=== PATIENT | female | born 1955 | race Caucasian/White ===

== ENCOUNTER 2019-01-30 12:36 | Inpatient (IN) | payer MEDICARE, SELFPAY ==
[2019-01-30] VITALS (19 sets, daily range): BP systolic 99–150; BP diastolic 56–78; PULSE 89–146; RESP 16–35; TEMP 36.6–37.4; O2SAT 94–98; BMI 32.3; BMI 31.1
--- NOTE | 2019-01-30 12:58 | EKG12_ITS ---
Test Reason : SOB Blood Pressure : / mmHG Vent. Rate : 144 BPM Atrial Rate : 144 BPM P-R Int : 120 ms QRS Dur : 062 ms QT Int : 274 ms P-R-T Axes : 024 002 044 degrees QTc Int : 424 ms Sinus tachycardia with Premature atrial complexes Otherwise normal ECG Confirmed by YUMI NGUYEN, JERAMIE ([id number]), editorial assistant BENJIE MCARTHUR ([id number]) on 02/01/2019 8:45:56 AM Referred By: Kaylie Barry Confirmed By:JERAMIE EASON MD
--- NOTE | 2019-01-30 12:58 | RAD_ITS ---
STUDY: X-RAY CHEST REASON FOR EXAM: Female, 63 years old. Cough, fever. COPD. TECHNIQUE: AP and lateral views of the chest. COMPARISON: None. FINDINGS: EKG electrodes are seen. Increased interstitial markings in both lungs worse on the right side as well as at the lung bases with areas of confluence. Findings are suggestive of a chronic interstitial fibrosis. There is no demonstrated pleural abnormality. Normal size heart. Normal mediastinum and jessica. Normal visualized pulmonary arteries. Normal visualized aortic arch and descending thoracic aorta. There are degenerative changes of the visualized thoracic spine. Normal visualized ribs, clavicles, and shoulders. There is no demonstrated abnormality of the visualized soft tissue structures of the upper abdomen. RAD/Chest PA and Lateral IMPRESSION: Findings suggestive of chronic interstitial fibrosis more prominent in the right hemithorax. Electronically Signed: Porter Vallecillo, at 14:57 EDT , Service support ,
[2019-01-30 13:11] LABS: Hematocrit 35.2 % (37-47); Hemoglobin 10.6 g/dL (12.0-15.0); Mean Corp Hgb Conc 30.1 g/dL (32-36); Mean Corpuscular Hgb 30.1 pg (27.0-32.0); Mean Platelet Vol. 9.9 fl (6.2-12.0); Platelet Count 353 K/mm3 (150-450); RBC Distribution Width CV 13.1 % (11.6-14.6); RBC Distribution Width SD 47.7 fl (35.1-43.9); Red Blood Count 3.52 M/mm3 (4.2-5.4); White Blood Count 19.6 K/mm3 (4.4-11.0)
[2019-01-30] MEDS: Ipratropium/Albuterol Sulfate 3 ML AMPUL.NEB INHALATION ×3 (13:15→23:13)
--- NOTE | 2019-01-30 13:21 | ED.DCSUM_ITS ---
History of Present Illness Chief Complaint: Shortness of Breath Informant: Patient Onset: Days Context: Gradual Onset Timing: Continuous Quality: Shortness of breath, productive cough and wheezing Location: Pulmonary Current Severity: Moderate Maximum Severity: Severe Worsened by: Any type of activity Relieved by: Nothing Associated Symptoms: On continuous oxygen Narrative: Patient is a 63-year-old woman with history of COPD on oxygen at 2 L by nasal cannula 09/11. Patient reports subjective fever with chills, productive cough of yellow to green sputum, wheezing and increased shortness of breath with any type of activity. She quit smoking 8 years ago. She is seen by Dr. Devante Millan. She is presently on prednisone. She denies rhinorrhea, postnasal drainage or sore throat. She denies ocular, visual auditory symptoms. She denies myalgias arthralgias. She denies GI or symptoms. Prior similar symptoms: Yes - Pneumonia 1 year ago Recent Illness/Hospitalization: No - Past Medical History (1) History of COPD Status: Chronic (2) History of chronic respiratory failure w Status: Acute Past Medical History - Allergies and Home Meds Allergies/Adverse Reactions: Allergies No Known Allergies Allergy (Verified 01/30/19 12:47) Primary Care Physician: Alexa Becerra PA [Primary Care Provider] - Prior records reviewed: Yes Surgical History: noncontributory Lives: Alone Smoking Status: Former smoker Alcohol: None Drugs: None Review of Systems General: Reports: Chills, Fever, Malaise, Subjective. Denies: Sweats Eyes: Denies: Visual changes - bilaterally, Blurred Vision - bilaterally, Diplopia ENT: Denies: Rhinorrhea, Sore throat Cardiovascular: Denies: Chest pain, Palpitations Respiratory: Reports: Dyspnea, Cough, Sputum, Dyspnea on exertion. Denies: Orthopnea, Paroxysmal nocturnal dyspnea Gastrointestinal: Denies: Abdominal pain, Nausea, Vomiting, Diarrhea, Melena, Hematochezia Genitourinary: Denies: Dysuria, Hematuria, Frequency Musculoskeletal: Denies: Myalgias, Arthralgias, Neck pain, Back pain, Swelling, Extremity Pain, -, - Neurological: Denies: Headache, Weakness, Numbness Hematologic: Denies: Easy bruising, Easy bleeding Allergy: Denies: Uticaria, Swelling of the mouth Physical Exam Vital Signs/Narrative: Vital Signs Temp Pulse Resp BP Pulse Ox 01/30/19 13:16 140 H 32 H 01/30/19 12:59 96 01/30/19 12:40 99.0 F 146 H 35 H 144/71 H 95 Inital Vital Signs reviewed: Yes General: Well nourished, Well developed, Obese, Acute Distress Head: Normocephalic, Atraumatic Eyes: Perrl, EOMI. Negative for: Pale conjunctiva, Scleral icterus ENT: Moist mucous membranes, No rhinorrhea, TM's clear Neck: Supple, Nontender, No lymphadenopathy, No JVD Cardiovascular: Regular rhythm, No murmurs, Normal S1, Normal S2, Tachycardia Respiratory: Chest nontender, Wheezing, Diminished, Decreased Air Movement, Retractions Abdomen: Soft, Nontender, Nondistended, Normal bowel sounds Rectal: Deferred Back: Nontender, Normal Inspection Extremities: Nontender, No edema Skin: No rash, No Trauma, Pallor. Negative for: Cyanosis, Diaphoresis, Jaundice Neurological: Alert, Oriented x3, Cranial nerves II-XII grossly intact, Normal Strength, Normal Sensation Psychological: Normal affect Diagnostic/Tx/Re-eval Chest X-Ray - ED: 2 View, Read by ED Physician, Normal, Heart, Bony Structures, - - There is bilateral interstitial changes. There is a difference on the right versus left. Suspect interstitial pneumonia. 01/30/19 12:58 Chest PA and Lateral [RAD] Stat Laboratory Results 01/30/19 01/30/19 01/30/19 12:50 12:50 12:50 WBC 19.6 H RBC 3.52 L Hgb 10.6 L Hct 35.2 L MCV 100.0 H MCH 30.1 MCHC 30.1 L RDW Std Deviation 47.7 H RDW Coeff of Lainey 13.1 Plt Count 353 MPV 9.9 Specimen Type Sample Site pH Bicarbonate Actual POC Total CO2 Base Excess O2 Saturation ABG pCO2 ABG pO2 Adán Test O2 Delivery Device Liter Flow Blood Gas Notified Whom Blood Gas Notified Time Sodium 136 Potassium 3.7 Chloride 102 Carbon Dioxide 30.0 Anion Gap 4 L BUN 11 Creatinine 0.89 Estim Creat Clear Calc 57.32 Est GFR (MDRD) Af Amer 82 Est GFR (MDRD) Non-Af 68 BUN/Creatinine Ratio 12.3 Glucose 109 H Lactic Acid 1.7 Calcium 8.7 Total Bilirubin 0.60 AST 15 ALT 15 Alkaline Phosphatase 104 Total Protein 7.9 Albumin 2.7 L Globulin 5.2 H Albumin/Globulin Ratio 0.5 L 01/30/19 13:40 WBC RBC Hgb Hct MCV MCH MCHC RDW Std Deviation RDW Coeff of Lainey Plt Count MPV Specimen Type ART Sample Site R Brachial pH 7.48 H Bicarbonate Actual 23.7 POC Total CO2 25 Base Excess 0 O2 Saturation 95 ABG pCO2 31.8 L ABG pO2 70 L Adán Test NA O2 Delivery Device Nasal Can Liter Flow 2.0 Blood Gas Notified Whom ED MD Blood Gas Notified Time 1330 Sodium Potassium Chloride Carbon Dioxide Anion Gap BUN Creatinine Estim Creat Clear Calc Est GFR (MDRD) Af Amer Est GFR (MDRD) Non-Af BUN/Creatinine Ratio Glucose Lactic Acid Calcium Total Bilirubin AST ALT Alkaline Phosphatase Total Protein Albumin Globulin Albumin/Globulin Ratio White count is elevated 19.6 thousand. Electrolyte panel is unremarkable. Hepatic enzymes are unremarkable. Lactate is normal. Albumin is slightly low. ABG reveals alkalosis with an increased AA gradient. There is no evidence of CO2 retention. The report was read. Interpretation is pulmonary fibrosis. With elevated white count, tachycardia, tachypnea fever and purulent sputum will treat for pneumonia. Will contact hospitalist for admission. - Medical Decision Making Differential diagnosis is COPD exacerbation exacerbate chronic bronchitis, pneumonia, ED Disposition - Plan for ED Patient: Disposition: Acute Care [facility], [place] Diagnosis: Asthma exacerbation in COPD, Clinical pneumonia, Leukocytosis, Sinus tachycardia by electrocardiogram Referrals: Alexa Becerra PA [Primary Care Provider] -
[2019-01-30 13:25] LABS: Lactic Acid 1.7 mmol/L (0.4-2.0)
[2019-01-30 13:29] LABS: ALB/GLOB Ratio 0.5 RATIO (0.9-2.4); AST(SGOT) 15 U/L (15-37); Alanine Aminotransfer ALT/SGPT 15 U/L (13-56); Albumin, Serum 2.7 g/dL (3.2-5.0); Alkaline Phosphatase 104 U/L (45-117); Anion Gap 4 (5-15); BUN 11 mg/dL (7-18); BUN/Creat Ratio 12.3 RATIO (10-20); Calcium,Total 8.7 mg/dL (8.5-10.1); Chloride 102 mmol/L (98-107); Creatinine, Serum 0.89 mg/dL (0.55-1.02); EST Glomerular Filtration Rate 68 mL/min (>60); Est Glom Filt Rate - Afr Amer 82 mL/min (>60); Estimated Creatinine Clearance 57.32 ml/min; Globulin 5.2 g/dL (2.2-4.2); Glucose 109 mg/dL (74-106); Potassium 3.7 mmol/L (3.5-5.1); Protein, Total 7.9 g/dL (6.4-8.2); Sodium Level 136 mmol/L (136-145)
[2019-01-30 13:46] LABS: Base Excess 0 mmol/L (-2 to +2); Bicarbonate 23.7 mmol/L (22-26); Blood Gas Specimen Type ART; O2 Delivery Device Nasal Can; PO2 70 mmHG (75-100); SITE R Brachial; SO2 95 % (95-99); Time Given 1330; Total Carbon Dioxide 25 mmol/L; pCO2 31.8 mmHg (35-45); pH 7.48 (7.35-7.45)
[2019-01-30] MEDS: MethylPREDNISolone 125 MG/2 ML Vial IV (13:58)
[2019-01-30] MEDS: levoFLOXacin IV 750 MG/150 ML BAG 100 MG IV (13:58)
--- NOTE | 2019-01-30 15:37 | HP.PCM_ITS ---
<Sanjuanita Valverde - Last Filed: 01/30/19 16:25> Problem List (1) History of COPD Status: Chronic (2) History of chronic respiratory failure w Status: Chronic (3) Asthma exacerbation in COPD Status: Acute (4) Leukocytosis Status: Acute (5) Sinus tachycardia by electrocardiogram Status: Acute History of Present Illness Date of Admission: 01/30/19 Chief Complaint: Shortness of breath, cough. The patient is a 63 year old F who presents to the emergency room due to shortn ess of breath x2 days. She also reports productive cough with yellow/green sputum, fever and wheezing. Patient reports incontinence of loose stool with coughing. She states approximately 2 years ago she was diagnosed with pneumonia and had to be transferred to a larger facility for treatment. She states she was told by her brand specialist if she developed similar symptoms that she should be seen at the hospital right away. Patient follows with Dr. Freeman, [facility] pulmonary medicine for COPD with chronic hypoxic respiratory failure. She wears 2 to 3 L nasal cannula continuously at baseline. She reports she quit smoking approximately 8 years ago. 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 She denies other exposure to sick contacts. Her other past medical history includes atrial fibrillation, rheumatoid arthritis and type 2 diabetes mellitus. Past Medical History Past Medical History (Chronic Problems): Chronic Problems History of COPD (Chronic) History of chronic respiratory failure w (Chronic) Allergies No Known Allergies Allergy (Verified 01/30/19 12:47) Home Medications: Ambulatory Orders Medication Instructions Recorded Acetaminophen [Tylenol Extra 1,000 mg PO DAILY PRN PRN 01/30/19 Strength] Leflunomide 10 mg DAILY 01/30/19 Metoprolol Succinate 50 mg PO DAILY 01/30/19 Prednisone 10 mg PO DAILY PRN PRN 01/30/19 Rivaroxaban [Xarelto] 20 mg PO DAILY 01/30/19 metFORMIN (XR) [Glucophage Xr] 500 mg PO DAILY 01/30/19 Surgical History: no surgical history Psychiatric History: No pertinent psych hx [employer] 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 Denies: Head Aches, Sinus Con gestion, Sinus Drainage Cardiovascular: Denies: Chest Pain, Edema, Light Headedness, Palpitations, Syncope Respiratory: Reports: Cough, Shortness of Breath, Sputum production, Wheezing Gastrointestinal: Reports: Diarrhea. Denies: Abdominal Pain, Nausea, Vomiting Genitourinary: Denies: Dysuria Musculoskeletal: Denies: Joint Pain, Joint Tenderness Skin: Denies: Rash, Wounds Neurological: Denies: Numbness, Tingling, Focal weakness Psychiatric: Denies: Anxiety, Depression, Homicidal Ideations, Suicidal Ideations Hematologic/ Lymphatic: Denies: Easy Bruising, Easy Bleeding VTE Information - Inpt Only VTE Present on Admission: No VTE Mechan Device Prophylaxis: None VTE Pharm Prophylaxis ordered?: Yes Patient Problems: Active and Suspected Problems Asthma exacerbation in COPD (Acute) Leukocytosis (Acute) Sinus tachycardia by electrocardiogram (Acute) - Physical Exam General: Alert, Oriented x3, Cooperative HEENT: Atraumatic, PERRLA, EOMI, Normocephalic Neck: Supple, No JVD, Negative Carotid Bruits Lungs: Diminished, Wheezes Cardiovascular: Regular Rhythm, Normal S1, Normal S2, No murmurs, Tachycardic Abdomen: Bowel Sounds Present, Soft, Non Tender, Non-Distended Extremities: No clubbing, No cyanosis, No edema, Capillary Refill Less than 3 Seconds Skin: No rashes, No breakdown Musculoskeletal: No Tenderness to Palpation of Joints or Extremities Neurological: Cranial nerves II-XII grossly intact, Neuro grossly intact Psych/Mental Status: Normal Affect, Appropriate Vital Signs Temp Pulse Resp BP Pulse Ox 99.4 F H 141 H 25 H 120/66 98 01/30/19 15:00 01/30/19 15:00 01/30/19 15:00 01/30/19 15:00 01/30/19 15:00 Oxygen Flow Rate (L/min) 2 Oxygen Delivery Method Nasal Cannula Weight: 188 lb 0.869 oz Body Mass Index (BMI) 32.3 Laboratory Tests Past 24 Hrs 01/30/19 01/30/19 01/30/19 12:50 12:50 12:50 WBC 19.6 H RBC 3.52 L Hgb 10.6 L Hct 35.2 L MCV 100.0 H MCH 30.1 MCHC 30.1 L RDW Std Deviation 47.7 H RDW Coeff of Lainey 13.1 Plt Count 353 MPV 9.9 Specimen Type Sample Site pH Bicarbonate Actual POC Total CO2 Base Excess O2 Saturation ABG pCO2 ABG pO2 Adán Test O2 Delivery Device Liter Flow Blood Gas Notified Whom Blood Gas Notified Time Sodium 136 Potassium 3.7 Chloride 102 Carbon Dioxide 30.0 Anion Gap 4 L BUN 11 Creatinine 0.89 Estim Creat Clear Calc 57.32 Est GFR (MDRD) Af Amer 82 Est GFR (MDRD) Non-Af 68 BUN/Creatinine Ratio 12.3 Glucose 109 H Lactic Acid 1.7 Calcium 8.7 Total Bilirubin 0.60 AST 15 ALT 15 Alkaline Phosphatase 104 Total Protein 7.9 Albumin 2.7 L Globulin 5.2 H Albumin/Globulin Ratio 0.5 L 01/30/19 13:40 WBC RBC Hgb Hct MCV MCH MCHC RDW Std Deviation RDW Coeff of Lainey Plt Count MPV Specimen Type ART Sample Site R Brachial pH 7.48 H Bicarbonate Actual 23.7 POC Total CO2 25 Base Excess 0 O2 Saturation 95 ABG pCO2 31.8 L ABG pO2 70 L Adán Test NA O2 Delivery Device Nasal Can Liter Flow 2.0 Blood Gas Notified Whom ED MD Blood Gas Notified Time 1330 Sodium Potassium Chloride Carbon Dioxide Anion Gap BUN Creatinine Estim Creat Clear Calc Est GFR (MDRD) Af Amer Est GFR (MDRD) Non-Af BUN/Creatinine Ratio Glucose Lactic Acid Calcium Total Bilirubin AST ALT Alkaline Phosphatase Total Protein Albumin Globulin Albumin/Globulin Ratio Assessment/Plan All Active Problems Asthma exacerbation in COPD (Acute) Leukocytosis (Acute) Sinus tachycardia by electrocardiogram (Acute) 1. Acute sepsis secondary to community-acquired pneumonia-possible post viral pneumonia given initial onset of sore throat and URI symptoms as well as exposure to sick contact-patient with fever, leukocytosis, productive cough. Chest x-ray without acute process. Repeat in a.m. following hydration. IV Levaquin. Albuterol and DuoNeb aerosols. Check urine for strep and Legionella. Check respiratory panel. Send sputum for culture. Mucinex 1200 mg p.o. twice daily. Continue supplement oxygen to maintain O2 at or above 90%. 2. Acute exacerbation of chronic COPD with chronic hypoxic respiratory failure- IV Solu-Medrol. Albuterol and DuoNeb aerosols. Check respiratory panel. 3. Type 2 diabetes mellitus-hold oral regimen. Accu-Cheks ACHS with sliding scale insulin. 4. Paroxysmal atrial fibrillation-sinus tachycardia on admission. Continue home metoprolol and Xarelto regimen. 5. Rheumatoid arthritis-continue home leflunomide regimen. Patient takes prednisone as needed. 6. Macrocytic anemia-appears stable, unknown baseline. Trend CBC. DVT prophylaxis-Xarelto This patient was seen by SAMANTHA Muñiz under the supervision of Dr. Barry. <Kaylie Barry - Last Filed: 01/30/19 18:53> History of Present Illness The patient is a 63 year old F [] Past Medical History Allergies No Known Allergies Allergy (Verified 01/30/19 12:47) - Physical Exam Vital Signs Temp Pulse Resp BP Pulse Ox 98.2 F 119 H 22 H 99/73 95 01/30/19 17:25 01/30/19 18:13 01/30/19 17:25 01/30/19 18:13 01/30/19 17:25 Oxygen Flow Rate (L/min) 2 Oxygen Delivery Method Nasal Cannula Weight: 82.4 kg Body Mass Index (BMI) 31.1 Intake and Output for Last 24 Hours 01/28/19 01/29/19 01/30/19 23:59 23:59 23:59 Intake Total 150 / 150 Balance 150 / 150 Laboratory Tests Past 24 Hrs 01/30/19 01/30/19 01/30/19 12:50 12:50 12:50 WBC 19.6 H RBC 3.52 L Hgb 10.6 L Hct 35.2 L MCV 100.0 H MCH 30.1 MCHC 30.1 L RDW Std Deviation 47.7 H RDW Coeff of Lainey 13.1 Plt Count 353 MPV 9.9 Specimen Type Sample Site pH Bicarbonate Actual POC Total CO2 Base Excess O2 Saturation ABG pCO2 ABG pO2 Adán Test O2 Delivery Device Liter Flow Blood Gas Notified Whom Blood Gas Notified Time Sodium 136 Potassium 3.7 Chloride 102 Carbon Dioxide 30.0 Anion Gap 4 L BUN 11 Creatinine 0.89 Estim Creat Clear Calc 57.32 Est GFR (MDRD) Af Amer 82 Est GFR (MDRD) Non-Af 68 BUN/Creatinine Ratio 12.3 Glucose 109 H Lactic Acid 1.7 Calcium 8.7 Total Bilirubin 0.60 AST 15 ALT 15 Alkaline Phosphatase 104 Total Protein 7.9 Albumin 2.7 L Globulin 5.2 H Albumin/Globulin Ratio 0.5 L 01/30/19 13:40 WBC RBC Hgb Hct MCV MCH MCHC RDW Std Deviation RDW Coeff of Lainey Plt Count MPV Specimen Type ART Sample Site R Brachial pH 7.48 H Bicarbonate Actual 23.7 POC Total CO2 25 Base Excess 0 O2 Saturation 95 ABG pCO2 31.8 L ABG pO2 70 L Adán Test NA O2 Delivery Device Nasal Can Liter Flow 2.0 Blood Gas Notified Whom ED MD Blood Gas Notified Time 1330 Sodium Potassium Chloride Carbon Dioxide Anion Gap BUN Creatinine Estim Creat Clear Calc Est GFR (MDRD) Af Amer Est GFR (MDRD) Non-Af BUN/Creatinine Ratio Glucose Lactic Acid Calcium Total Bilirubin AST ALT Alkaline Phosphatase Total Protein Albumin Globulin Albumin/Globulin Ratio POC Glucose 01/30/19 17:01 POC Glucose 141 H Assessment/Plan This patient was seen in conjunction with Sanjuanita Valverde. I have independently interviewed and examined the patient and reviewed pertinent historical, laboratory, and other data. I have reviewed her note and concur with her documentation CC: Shortness of breath ongoing for 3 day HPI: 63-year-old female with past medical history of chronic respiratory failure secondary to COPD, on 2 L of oxygen at home who comes in with progressive shortness of breath ongoing for 3 days. Patient admits to a productive cough productive of yellowish to greenish sputum with fever and wheezes. She admits to having had sick contact with her and the son who had upper respiratory illnesses. She admits to some nausea and diarrhea about 3 times, which were no liquid-like. She denied any chest pain or dizziness or palpitations. At a time of being seen, patient felt much better with the breathing treatments instead of IV antibiotics. PMHX: COPD, chronic respiratory failure PSHx: No surgical history FHX: Mother has COPD, father had heart disease SHX: Denies any use of alcohol or illicit drugs or smoking Physical Exam: Vitals: Temperature 99.0 F, heart rate is 146, blood pressure is 144/71, r espiratory 35, SPO2 is 95% on 2 L of oxygen Gen: Looks in some discomfort, obese, not pale, not jaundiced CVS:HS I +II, regular, no murmurs RESP: Diminished all over the lungs, wheezes GI: BS present and normal, soft, nontender, no palpable organs EXT:No edema Labs:WBC count of 19.6, hemoglobin 10.6, platelet count of 353, BMP was unremarkable, ABG showed pH 7.48, PO2 was 95, PCO2 was 31.8 Imaging: Chest x-ray showed chronic interstitial fibrosis ASSESSMENT: 1. Sepsis secondary to possible community-acquired pneumonia 2. Acute COPD exacerbation 3. Sinus tachycardia secondary to beta-ruby withdrawal 4. Rheumatoid arthritis 5. Type II DM 6. Paroxysmal atrial fibrillation Plan: Repeat chest x-ray in a.m. to confirm pneumonia Continue on IV Levaquin for now IV steroids, breathing treatments, incentive spirometer Resume home metoprolol tonight Continue on the rest of her medications Blood glucose checks with insulin sliding scale Code Visit Inpatient E&M: 92190 Init Hosp L2
--- NOTE | 2019-01-30 15:42 | NURSING ---
PCU PNEUMONIA, SEPSIS PAINTSIL
[2019-01-30] MEDS: 0.9% Normal Saline 1,000 ML 125 ML IV (17:10)
[2019-01-30 17:11] LABS: Bedside Glucose 141 mg/dL (70-110)
[2019-01-30] MEDS: Glucerna Shake 120 ML LIQUID PO (18:11)
[2019-01-30] MEDS: Rivaroxaban 20 MG Tablet PO (18:11)
[2019-01-30] MEDS: Acetaminophen 325 MG Tablet 650 MG PO (18:11)
[2019-01-30] MEDS: Metoprolol(XL)Succ 50 MG Tablet PO (18:13)
[2019-01-30] MEDS: guaiFENesin 1,200 MG Tablet 1200 MG PO (21:03)
[2019-01-30] MEDS: Leflunomide 10 MG TABLET PO (21:03)
[2019-01-30] MEDS: Insulin Lispro 100 UNIT/ML INSULN.PEN SC (21:09)
[2019-01-30 21:31] LABS: Bedside Glucose 175 mg/dL (70-110)
[2019-01-31] VITALS (15 sets, daily range): BP systolic 112–129; BP diastolic 55–69; PULSE 86–105; RESP 14–26; TEMP 36.4–36.6; O2SAT 94–96
[2019-01-31] MEDS: 0.9% Normal Saline 1,000 ML 125 ML IV ×2 (00:25→10:03)
[2019-01-31] MEDS: Ipratropium/Albuterol Sulfate 3 ML AMPUL.NEB INHALATION ×6 (03:06→22:43)
--- NOTE | 2019-01-31 05:55 | RAD_ITS ---
STUDY: X-RAY CHEST REASON FOR EXAM: Female, 63 years old. Cough and weakness. TECHNIQUE: AP and lateral views of the chest. COMPARISON: Comparison is made with prior study dated January 30, 2019. FINDINGS: EKG electrodes are seen. Since prior study, there has been minimal improvement of the aeration of the right upper lobe. Residual increased interstitial markings with areas of confluence are seen in both lungs worse on the right side suggestive of a chronic interstitial fibrosis. There is no demonstrated pleural abnormality. Normal size heart. Normal mediastinum and jessica. Normal visualized pulmonary arteries. Normal visualized aortic arch and descending thoracic aorta. Normal visualized thoracic spine. Normal visualized ribs, clavicles, and shoulders. There is no demonstrated abnormality of the visualized soft tissue structures of the upper abdomen. RAD/Chest PA and Lateral IMPRESSION: Mild improvement of the aeration of the right upper lobe. The remainder the examination is unchanged. Electronically Signed: Potrer Vallecillo, at 14:21 EDT , Service support ,
[2019-01-31] MEDS: Insulin Lispro 100 UNIT/ML INSULN.PEN SC ×2 (06:25→11:35)
[2019-01-31 06:41] LABS: Bedside Glucose 152 mg/dL (70-110)
[2019-01-31 06:45] LABS: Absolute Lymphocyte Count 0.79 X10^3/uL (0.83-4.51); Absolute Neutrophil Count 8.9 X10^3/uL (2.0-7.7); Basophil# 0.01 X10^3/uL; Basophil% 0.1 % (0-1); Hematocrit 29.9 % (37-47); Hemoglobin 9.1 g/dL (12.0-15.0); Lymphocyte # 0.79 X10^3/ul (4.0); Mean Corp Hgb Conc 30.4 g/dL (32-36); Mean Corpuscular Hgb 29.7 pg (27.0-32.0); Mean Corpuscular Volume 97.7 fL (81-99); Mean Platelet Vol. 10.2 fl (6.2-12.0); Monocyte# 0.15 X10^3/uL; Monocyte% 1.5 % (0-10); NRBC Flagged by Analyzer 0 % (0-5); Neutrophil # 8.92 X10^3/uL (2.7-7.7); Neutrophil % 89.8 % (47-70); Platelet Count 286 K/mm3 (150-450); RBC Distribution Width CV 12.9 % (11.6-14.6); RBC Distribution Width SD 45.9 fl (35.1-43.9); Red Blood Count 3.06 M/mm3 (4.2-5.4); White Blood Count 9.9 K/mm3 (4.4-11.0)
[2019-01-31 07:07] LABS: Anion Gap 5 (5-15); BUN 14 mg/dL (7-18); BUN/Creat Ratio 19.1 RATIO (10-20); Calcium,Total 8.4 mg/dL (8.5-10.1); Chloride 108 mmol/L (98-107); Creatinine, Serum 0.73 mg/dL (0.55-1.02); EST Glomerular Filtration Rate 85 mL/min (>60); Est Glom Filt Rate - Afr Amer 103 mL/min (>60); Estimated Creatinine Clearance 69.88 ml/min; Glucose 163 mg/dL (74-106); Potassium 3.9 mmol/L (3.5-5.1); Sodium Level 138 mmol/L (136-145)
[2019-01-31] MEDS: guaiFENesin 1,200 MG Tablet 1200 MG PO ×2 (09:50→22:41)
[2019-01-31] MEDS: Metoprolol(XL)Succ 50 MG Tablet PO (09:50)
[2019-01-31] MEDS: Leflunomide 10 MG TABLET PO (09:50)
[2019-01-31] MEDS: levoFLOXacin IV 750 MG/150 ML BAG 100 MG IV (10:05)
[2019-01-31 11:40] LABS: Bedside Glucose 176 mg/dL (70-110)
--- NOTE | 2019-01-31 12:00 | CASEMGMT ---
Addendum entered by Subha Lamar 01/31/19 15:42: 1315 This RN CM back to room to complete CM assessment and pt is on the phone at this time. Will attempt again later. Lupe RAUSCH CM Original Note: This RN CM to room to complete CM assessment and pastor Liu, is at bedside at this time. Will attempt again later. Lupe RAUSCH CM
--- NOTE | 2019-01-31 12:15 | PN_ITS ---
<Sanjuanita Valverde - Last Filed: 01/31/19 12:23> Patient Problems: Active and Suspected Problems Asthma exacerbation in COPD (Acute) Leukocytosis (Acute) Sinus tachycardia by electrocardiogram (Acute) Subjective: Patient seen and examined. Reports improvement in breathing however continues to have dyspnea with exertion. Continues to have productive cough. Denies fever, chills. - Physical Exam General: Alert, Oriented x3, Cooperative HEENT: Atraumatic, PERRLA, EOMI, Normocephalic Neck: Supple, No JVD, Negative Carotid Bruits Lungs: Diminished, Wheezes Cardiovascular: Regular Rhythm, Normal S1, Normal S2, No murmurs, Tachycardic Abdomen: Bowel Sounds Present, Soft, Non Tender, Non-Distended Extremities: No clubbing, No cyanosis, No edema, Capillary Refill Less than 3 Seconds Skin: No rashes, No breakdown Musculoskeletal: No Tenderness to Palpation of Joints or Extremities Neurological: Cranial nerves II-XII grossly intact, Neuro grossly intact Psych/Mental Status: Normal Affect, Appropriate Vital Signs Temp Pulse Resp BP Pulse Ox 97.9 F 98 16 114/55 L 94 01/31/19 09:48 01/31/19 10:52 01/31/19 10:52 01/31/19 09:48 01/31/19 09:48 Oxygen Flow Rate (L/min) 2 Oxygen Delivery Method Nasal Cannula Weight: 181 lb 10.574 oz Body Mass Index (BMI) 31.1 Intake and Output for Last 24 Hours 01/29/19 01/30/19 01/31/19 23:59 23:59 23:59 Intake Total 1492.08 / 1492.08 1276.26 / 1276.26 Balance 1492.08 / 1492.08 1276.26 / 1276.26 Microbiology Past 72 Hours 01/30/19 20:55 Gram Stain - Final Sputum, Expectorated/Coughed 01/30/19 16:45 Respiratory Panel (PCR) - Final Mucosa - Nasopharyngeal 01/30/19 17:58 Streptococcus pneumoniae Antigen (M - Final Urine, Clean Catch 01/30/19 17:58 Legionella Antigen - Final Urine, Clean Catch Laboratory Tests Past 24 Hrs 01/30/19 01/30/19 01/30/19 12:50 12:50 12:50 WBC 19.6 H RBC 3.52 L Hgb 10.6 L Hct 35.2 L MCV 100.0 H MCH 30.1 MCHC 30.1 L RDW Std Deviation 47.7 H RDW Coeff of Lainey 13.1 Plt Count 353 MPV 9.9 Immature Gran % (Auto) Neut % (Auto) Lymph % (Auto) Garza % (Auto) Eos % (Auto) Baso % (Auto) Absolute Neuts (auto) Absolute Lymphs (auto) Nucleated RBC % Specimen Type Sample Site pH Bicarbonate Actual POC Total CO2 Base Excess O2 Saturation ABG pCO2 ABG pO2 Adán Test O2 Delivery Device Liter Flow Blood Gas Notified Whom Blood Gas Notified Time Sodium 136 Potassium 3.7 Chloride 102 Carbon Dioxide 30.0 Anion Gap 4 L BUN 11 Creatinine 0.89 Estim Creat Clear Calc 57.32 Est GFR (MDRD) Af Amer 82 Est GFR (MDRD) Non-Af 68 BUN/Creatinine Ratio 12.3 Glucose 109 H Lactic Acid 1.7 Calcium 8.7 Total Bilirubin 0.60 AST 15 ALT 15 Alkaline Phosphatase 104 Total Protein 7.9 Albumin 2.7 L Globulin 5.2 H Albumin/Globulin Ratio 0.5 L 01/30/19 01/31/19 01/31/19 13:40 05:30 05:30 WBC 9.9 RBC 3.06 L Hgb 9.1 L Hct 29.9 L MCV 97.7 MCH 29.7 MCHC 30.4 L RDW Std Deviation 45.9 H RDW Coeff of Lainey 12.9 Plt Count 286 MPV 10.2 Immature Gran % (Auto) 0.600 Neut % (Auto) 89.8 H Lymph % (Auto) 8.0 L Garza % (Auto) 1.5 Eos % (Auto) 0.0 Baso % (Auto) 0.1 Absolute Neuts (auto) 8.9 H Absolute Lymphs (auto) 0.79 L Nucleated RBC % 0 Specimen Type ART Sample Site R Brachial pH 7.48 H Bicarbonate Actual 23.7 POC Total CO2 25 Base Excess 0 O2 Saturation 95 ABG pCO2 31.8 L ABG pO2 70 L Adán Test NA O2 Delivery Device Nasal Can Liter Flow 2.0 Blood Gas Notified Whom ED MD Blood Gas Notified Time 1330 Sodium 138 Potassium 3.9 Chloride 108 H Carbon Dioxide 25.0 Anion Gap 5 BUN 14 Creatinine 0.73 Estim Creat Clear Calc 69.88 Est GFR (MDRD) Af Amer 103 Est GFR (MDRD) Non-Af 85 BUN/Creatinine Ratio 19.1 Glucose 163 H Lactic Acid Calcium 8.4 L Total Bilirubin AST ALT Alkaline Phosphatase Total Protein Albumin Globulin Albumin/Globulin Ratio POC Glucose 01/31/19 01/31/19 01/30/19 11:33 06:24 21:02 POC Glucose 176 H 152 H 175 H 01/30/19 17:01 POC Glucose 141 H Medical Necessity - Tobacco Use Smoking Status: Former smoker Tobacco Use: Cigarettes Assessment/Plan All Active Problems Asthma exacerbation in COPD (Acute) Leukocytosis (Acute) Sinus tachycardia by electrocardiogram (Acute) 1. Acute sepsis secondary to community-acquired pneumonia-patient with fever, leukocytosis, productive cough. Chest x-ray on admission without acute process. Repeat chest x-ray this morning again without evidence of infiltrate. IV Levaquin empirically pending sputum culture. Albuterol and DuoNeb aerosols. Urine for strep and Legionella negative. Respiratory panel negative. Mucinex 1200 mg p.o. twice daily. Continue supplement oxygen to maintain O2 at or above 90%. 2. Acute exacerbation of chronic COPD with chronic hypoxic respiratory failure- IV Solu-Medrol. Albuterol and DuoNeb aerosols. Respiratory panel negative. 3. Type 2 diabetes mellitus-hold oral regimen. Accu-Cheks ACHS with sliding scale insulin. 4. Paroxysmal atrial fibrillation-sinus tachycardia on admission, improved with resuming home beta-ruby regimen. Continue home metoprolol and Xarelto regimen. 5. Rheumatoid arthritis-continue home leflunomide regimen. Patient takes prednisone as needed. 6. Macrocytic anemia-appears stable, unknown baseline. Trend CBC. DVT prophylaxis-Xarelto Discharge planning: Anticipate discharge home tomorrow on prednisone taper and oral antibiotic regimen if continued improvement. This patient was seen by SAMANTHA Muñiz under the supervision of Dr. Sanchez. <Leo Sanchez F - Last Filed: 01/31/19 18:02> - Physical Exam Vital Signs Temp Pulse Resp BP Pulse Ox 97.9 F 97 16 122/69 H 94 01/31/19 16:00 01/31/19 16:00 01/31/19 16:00 01/31/19 16:00 01/31/19 16:00 Oxygen Flow Rate (L/min) 2 Oxygen Delivery Method Nasal Cannula Weight: 181 lb 10.574 oz Body Mass Index (BMI) 31.1 Intake and Output for Last 24 Hours 01/29/19 01/30/19 01/31/19 23:59 23:59 23:59 Intake Total 1492.08 / 1492.08 1440.84 / 1440.84 Balance 1492.08 / 1492.08 1440.84 / 1440.84 Microbiology Past 72 Hours 01/30/19 20:55 Gram Stain - Final Sputum, Expectorated/Coughed 01/30/19 16:45 Respiratory Panel (PCR) - Final Mucosa - Nasopharyngeal 01/30/19 17:58 Streptococcus pneumoniae Antigen (M - Final Urine, Clean Catch 01/30/19 17:58 Legionella Antigen - Final Urine, Clean Catch Laboratory Tests Past 24 Hrs 01/31/19 01/31/19 05:30 05:30 WBC 9.9 RBC 3.06 L Hgb 9.1 L Hct 29.9 L MCV 97.7 MCH 29.7 MCHC 30.4 L RDW Std Deviation 45.9 H RDW Coeff of Lainey 12.9 Plt Count 286 MPV 10.2 Immature Gran % (Auto) 0.600 Neut % (Auto) 89.8 H Lymph % (Auto) 8.0 L Garza % (Auto) 1.5 Eos % (Auto) 0.0 Baso % (Auto) 0.1 Absolute Neuts (auto) 8.9 H Absolute Lymphs (auto) 0.79 L Nucleated RBC % 0 Sodium 138 Potassium 3.9 Chloride 108 H Carbon Dioxide 25.0 Anion Gap 5 BUN 14 Creatinine 0.73 Estim Creat Clear Calc 69.88 Est GFR (MDRD) Af Amer 103 Est GFR (MDRD) Non-Af 85 BUN/Creatinine Ratio 19.1 Glucose 163 H Calcium 8.4 L POC Glucose 01/31/19 01/31/19 01/31/19 16:06 11:33 06:24 POC Glucose 151 H 176 H 152 H 01/30/19 21:02 POC Glucose 175 H Code Visit Addendum: Dr. Sanchez I personally examined the patient and reviewed the chart. I agree with the above. 63-year-old female presenting with possible COPD as well as a possible community-acquired pneumonia, she is on Levaquin which will be continued as well as Solu-Medrol. We will continue to monitor improvement she is on her baseline oxygen requirement of 2 L nasal cannula and her white count has completely normalized today to 9.9. If she continues this trend will plan on discharge tomorrow morning. Inpatient E&M: [id number] [facility] [[email or web address]] Hosp L2
--- NOTE | 2019-01-31 12:44 | CHAPLAIN ---
Type of Pastoral Visit _x__ Initial Visit ___ Follow-up Visit ___ On-call Visit ___ General Patient Visit ___ Spiritual Assessment ___ Family Conference ___ Bereavement ___ Rapid Response ___ Code Blue ___ Other (describe below) Pastoral Care Referral From _x__ Patient ___ Family ___ Nurse ___ Physician ___ Cathead Operator ___ Flume Tender ___ Other (describe below) Sacrament/Intervention _x__ Active listening ___ Anointing ___ Caodaism ___ Bereavement ___ Communion ___ Michaela exploration ___ _x__ Life review _x__ Prayer ___ Reconciliation ___ Sacrament of Sick _x__ Supportive presence ___ Wedding ___ Other (describe below) Pastoral Comments
[2019-01-31] MEDS: Rivaroxaban 20 MG Tablet PO (16:08)
[2019-01-31 16:16] LABS: Bedside Glucose 151 mg/dL (70-110)
[2019-01-31] MEDS: 0.9% NaCl Peripheral Flush Adult/Peds IV (22:48)
[2019-01-31] MEDS: Benzonatate 100 MG Capsule PO (22:48)
[2019-01-31] MEDS: Acetaminophen 325 MG Tablet 650 MG PO (22:48)
[2019-02-01] VITALS (18 sets, daily range): BP systolic 111–136; BP diastolic 60–83; PULSE 88–110; RESP 16–22; TEMP 36.6–36.8; O2SAT 96–99
[2019-02-01] MEDS: Ipratropium/Albuterol Sulfate 3 ML AMPUL.NEB INHALATION ×6 (03:12→22:57)
[2019-02-01 03:30] LABS: Bedside Glucose 148 mg/dL (70-110)
[2019-02-01] MEDS: 0.9% NaCl Peripheral Flush Adult/Peds IV ×3 (05:47→21:40)
[2019-02-01 06:02] LABS: Hematocrit 29.1 % (37-47); Hemoglobin 8.8 g/dL (12.0-15.0); Mean Corp Hgb Conc 30.2 g/dL (32-36); Mean Corpuscular Hgb 29.5 pg (27.0-32.0); Mean Corpuscular Volume 97.7 fL (81-99); Mean Platelet Vol. 10.1 fl (6.2-12.0); Platelet Count 304 K/mm3 (150-450); RBC Distribution Width CV 13.1 % (11.6-14.6); RBC Distribution Width SD 46.6 fl (35.1-43.9); Red Blood Count 2.98 M/mm3 (4.2-5.4); White Blood Count 13.1 K/mm3 (4.4-11.0)
[2019-02-01] MEDS: Insulin Lispro 100 UNIT/ML INSULN.PEN SC ×3 (07:13→21:38)
[2019-02-01 07:20] LABS: Bedside Glucose 155 mg/dL (70-110)
[2019-02-01] MEDS: guaiFENesin 1,200 MG Tablet 1200 MG PO ×2 (08:28→21:38)
[2019-02-01] MEDS: Leflunomide 10 MG TABLET PO (08:28)
[2019-02-01] MEDS: Metoprolol(XL)Succ 50 MG Tablet PO (08:28)
[2019-02-01] MEDS: levoFLOXacin IV 750 MG/150 ML BAG 100 MG IV (08:31)
--- NOTE | 2019-02-01 09:41 | CASEMGMT ---
RN SALLY BORDER INSPECTOR CM to room to meet with patient for initial transition planning/care coordination assessment. SHALOM ZAVALA introduced self and role at [facility]. Pt voices understanding and consents to assessment at this time. Pt resting in bed in no distress at this time. Pt is A/O at this time and answers all questions appropriately. Care providers, pharmacy, and demographics verified/updated at this time. PCP: Dr Rufino Becerra Specialists: Dr Duarte--cardiology @ [facility], Dr Ruiz--pulmonolgy, Dr Talley (?sp)--auto mechanic supervisor for arthritis Preferred Pharmacy: [facility] Insurance: [employer] [facility] Prescription Benefit: Yes Living Will/HPOA: does not have LW or HCPOA . Interested in more information and would like to talk with NOREEN to complete paperwork. NOREEN Barrientos, made aware. Pt provided with AD info packet and Skiing Teacher Rac card. LNOK: and 2 sons Living Arrangements: Lives with her in 2 bedroom trailer w/3 steps to enter. Oldest son lives with them. Pt states her assists her with bathing, meals, grocery shopping, and some housecleaning. does the laundry. Pt states she manages her own meds/appts and able to dress herself. States when her works full-time as an OTR truck-tractor driver teamster and when he is gone, her son assists her with care and home mgmt tasks. Transportation: Pt states drives self and states no transportation concerns at this time. also drives. Pt states if her is not available that her son or her sister, Michelle, can assist with transportation as well. DME: has the following DME: shower chair, nebulizer, O2 @ 2l/m continuously that she got thru [facility]. Has concentrator and portability. Has a glucometer that works properly and she has all the needed supplies for it. States has a walker that she does not use. Pt states no need for further DME at this time. HHC/SNF: No history of either. Denies needs for SNF. States is not interested in HHC or OP therapy. Pt wishes to return home and states has no concerns with going home at time of discharge. Pt states does not smoke or drink ETOH. CM to follow for any increased home oxygen needs and any further discharge planning/needs. Pt voices no further concerns/needs at this time. Advised pt to ask for CM if any further questions/concerns/needs arise. Voices understanding. PLAN: Home w/family support and discharge plans in place. Cherie ADRIAN RN CM
--- NOTE | 2019-02-01 10:38 | CASEMGMT ---
Addendum entered by Iliana Calhoun 02/01/19 14:43: Patient had her RN tell SW she does not want to complete documents right now. Iliana ROBLES Original Note: Per RN CM patient wanted information on advance directives. SW met with patient, introduced self and role at [facility]. She said she would like for her to be present when SW explains the documents. SW left the documents with her so she can review them. SW told her to let the nurse or aide know when her arrives and she would like to talk with SW. Iliana ROBLES
[2019-02-01] MEDS: BENZOCAINE/MENTHOL 1 LOZENGE MUCOUS MEM (10:42)
[2019-02-01] MEDS: Benzonatate 100 MG Capsule PO ×2 (10:42→21:38)
--- NOTE | 2019-02-01 11:29 | PN_ITS ---
Patient Problems: Active and Suspected Problems Asthma exacerbation in COPD (Acute) Leukocytosis (Acute) Sinus tachycardia by electrocardiogram (Acute) Subjective: Did not sleep well overnight and does not feel as well this morning as she did yesterday. Vitals/I&O's: Vital Signs Temp Pulse Resp BP Pulse Ox 98.3 F 99 16 124/83 H 98 02/01/19 08:23 02/01/19 08:28 02/01/19 08:23 02/01/19 08:23 02/01/19 08:23 Oxygen Flow Rate (L/min) 2 Oxygen Delivery Method Nasal Cannula Weight: 181 lb 10.574 oz Body Mass Index (BMI) 31.1 Intake and Output for Last 24 Hours 01/30/19 01/31/19 02/01/19 23:59 23:59 23:59 Intake Total 1492.08 / 1492.08 1800.84 / 1800.84 250 / 250 Balance 1492.08 / 1492.08 1800.84 / 1800.84 250 / 250 General: Alert, Oriented x3, Cooperative, No apparent distress HEENT: Atraumatic, PERRLA, EOMI, Normocephalic Oral: Moist Mucosa Neck: Supple, No JVD Lungs: Normal air movement, No rhonchi, No rales, Diminished, Wheezes Cardiovascular: Regular rate, Regular Rhythm, Normal S1, Normal S2, No murmurs Abdomen: Soft, Non Tender, Non-Distended, No Hepato-splenomegaly Extremities: No edema, Capillary Refill Less than 3 Seconds Skin: No rashes, No breakdown Neurological: Neuro grossly intact, Sensory exam intact to light touch and pain Psych/Mental Status: Normal Affect, Appropriate Microbiology Past 72 Hours 01/30/19 20:55 Sputum, Expectorated/Coughed Gram Stain - Final 01/30/19 20:55 Sputum, Expectorated/Coughed Respiratory Culture - Preliminary Staphylococcus aureus Gram negative dave 01/30/19 16:45 Mucosa - Nasopharyngeal Respiratory Panel (PCR) - Final 01/30/19 17:58 Urine, Clean Catch Streptococcus pneumoniae Antigen (M - Final 01/30/19 17:58 Urine, Clean Catch Legionella Antigen - Final Laboratory Results 01/31/19 11:33: POC Glucose 176 H 01/31/19 16:06: POC Glucose 151 H 01/31/19 22:37: POC Glucose 148 H 02/01/19 05:15: WBC 13.1 H, RBC 2.98 L, Hgb 8.8 L, Hct 29.1 L, MCV 97.7, MCH 29.5, MCHC 30.2 L, RDW Std Deviation 46.6 H, RDW Coeff of Lainey 13.1, Plt Count 304, MPV 10.1 02/01/19 07:11: POC Glucose 155 H Current Medications Acetaminophen (Tylenol) 650 mg PO Q6H PRN PRN PRN Reason: Pain Score 1-3/Temp > 100.7 F Last Admin: 01/31/19 22:48 Dose: 650 mg Documented by: Albuterol Sulfate (Ventolin Aerosols) 2.5 mg INHALATION Q2H PRN PRN PRN Reason: SHORTNESS OF BREATH Albuterol/Ipratropium (Duoneb) 3 ml INHALATION Q4H.RT [facility] Last Admin: 02/01/19 11:11 Dose: 3 ml Documented by: Benzonatate (Tessalon Perle) 100 mg PO TID PRN PRN PRN Reason: COUGH Last Admin: 02/01/19 10:42 Dose: 100 mg Documented by: Dextrose (D50w Syringe) 0 gm IV X1 PRN; Protocol PRN Reason: Hypoglycemia Glucagon () 1 mg IM .X1 PRN PRN Reason: Hypoglycemia Guaifenesin (Mucinex) 1,200 mg PO BID [facility] Last Admin: 02/01/19 08:28 Dose: 1,200 mg Documented by: Levofloxacin (Levaquin Iv) 750 mg in 150 mls @ 100 mls/hr IV Q24 [facility] Last Infusion: 02/01/19 10:10 Dose: Infused Documented by: Insulin Human Lispro (Humalog Kwikpen (Bkc)) 0 unit SC ACHS [facility]; Protocol Last Admin: 02/01/19 07:13 Dose: 1 u Documented by: Leflunomide (Leflunomide) 10 mg PO DAILY [facility] Last Admin: 02/01/19 08:28 Dose: 10 mg Documented by: Methylprednisolone (Solu-Medrol) 40 mg IV Q8 [facility] Last Admin: 02/01/19 05:47 Dose: 40 mg Documented by: Metoprolol Succinate (Toprol Xl (Beta Maciel)) 50 mg PO DAILY [facility] Last Admin: 02/01/19 08:28 Dose: 50 mg Documented by: Ondansetron HCl (Zofran) 4 mg IV Q8H PRN PRN PRN Reason: NAUSEA/VOMITING Oxycodone HCl (Oxyir) 5 mg PO Q4H PRN PRN PRN Reason: Pain Score 4-5/10 Rivaroxaban (Xarelto) 20 mg PO DAILY@1700 ELENA Last Admin: 01/31/19 16:08 Dose: 20 mg Documented by: Sodium Chloride () 5 - 15 ml IV UD PRN PRN Reason: SALINE FLUSH Last Admin: 02/01/19 05:47 Dose: 10 ml Documented by: Throat Lozenges (Cepacol Sore Throat Lozenge) 1 lozenge MUCOUS MEM Q2H PRN PRN PRN Reason: Sore Throat/Cough Last Admin: 02/01/19 10:42 Dose: 1 lozenge Documented by: STROKE Vital Signs/Narrative: Vital Signs Temp Pulse Resp BP Pulse Ox 02/01/19 08:28 99 02/01/19 08:23 98.3 F 99 16 124/83 H 98 Medical Necessity - Tobacco Use Smoking Status: Former smoker Tobacco Use: Cigarettes Assessment/Plan All Active Problems Asthma exacerbation in COPD (Acute) Leukocytosis (Acute) Sinus tachycardia by electrocardiogram (Acute) 1. Sepsis secondary to community-acquired pneumonia from gram-positive organism/COPD exacerbation -Has resolved she is on Levaquin as well as steroids for her history of COPD -Leukocytosis increased from 9.1 to 13.3 likely secondary to steroids -Urine culture with staph aureus and a gram-negative dave, for now we will continue with Levaquin pending sensitivities -Continue with inhalers and steroids 2. Paroxysmal A. fib -Continue with Xarelto -Continue with home beta-maciel 3. Rheumatoid arthritis -Continue with her leflunomide, her symptoms have been controlled -Take prednisone periodically, will continue with steroids for COPD 4. Macrocytic anemia -We have no baseline however her MCV has normalized -Hemoglobin dropped to 8.8 which is likely related to fluid and dehydration -Will monitor DVT: Xarelto Code Visit Inpatient E&M: 85019 Subs Hosp L2
[2019-02-01 12:06] LABS: Bedside Glucose 164 mg/dL (70-110)
[2019-02-01] MEDS: Rivaroxaban 20 MG Tablet PO (17:01)
[2019-02-01 17:06] LABS: Bedside Glucose 146 mg/dL (70-110)
[2019-02-01 21:50] LABS: Bedside Glucose 165 mg/dL (70-110)
[2019-02-02] VITALS (10 sets, daily range): BP systolic 118–133; BP diastolic 56–65; PULSE 81–105; RESP 18–20; TEMP 36.6–36.8; O2SAT 95–97
[2019-02-02] MEDS: Ipratropium/Albuterol Sulfate 3 ML AMPUL.NEB INHALATION ×3 (03:45→10:27)
[2019-02-02] MEDS: 0.9% NaCl Peripheral Flush Adult/Peds IV ×3 (06:28→10:14)
[2019-02-02] MEDS: Insulin Lispro 100 UNIT/ML INSULN.PEN SC ×2 (06:28→11:06)
[2019-02-02 06:51] LABS: Bedside Glucose 158 mg/dL (70-110)
[2019-02-02] MEDS: levoFLOXacin IV 750 MG/150 ML BAG 100 MG IV (10:12)
[2019-02-02] MEDS: guaiFENesin 1,200 MG Tablet 1200 MG PO (10:13)
[2019-02-02] MEDS: Leflunomide 10 MG TABLET PO (10:13)
[2019-02-02] MEDS: Metoprolol(XL)Succ 50 MG Tablet PO (10:14)
[2019-02-02] MEDS: Benzonatate 100 MG Capsule PO (11:00)
[2019-02-02 11:16] LABS: Bedside Glucose 385 mg/dL (70-110)
--- NOTE | 2019-02-02 11:31 | DCINST_ITS ---
- Discharge Diagnoses Current Active Problems: Current Active and Chronic Problems History of COPD (Chronic) History of chronic respiratory failure w (Chronic) Asthma exacerbation in COPD (Acute) Leukocytosis (Acute) Sinus tachycardia by electrocardiogram (Acute) You will use the following diet at home:: Regular Your food should be the consistency of: Regular Your liquids should be the consistency of: Regular/Thin Discharge Activity: Return to Normal Activity Call your doctor if you observe: Fever of 101 or Higher, Shortness of breath, Dizziness, Fainting spells, Swelling in the ankles, Chest pain, Increased pal pitations (irregular heartbeat) Allergies/Adverse Reactions: Allergies No Known Allergies Allergy (Verified 01/30/19 12:47) Medications to take at Discharge Acetaminophen [Tylenol Extra Strength] 1,000 mg PO DAILY PRN PRN 01/30/19 Leflunomide 10 mg DAILY 01/30/19 Metoprolol Succinate 50 mg PO DAILY 01/30/19 Prednisone 10 mg PO DAILY PRN PRN 01/30/19 Rivaroxaban [Xarelto] 20 mg PO DAILY 01/30/19 metFORMIN (XR) [Glucophage Xr] 500 mg PO DAILY 01/30/19 Prednisone [Deltasone] 40 mg PO DAILY #14 tab 02/02/19 levoFLOXacin tablet [Levaquin tablet] 750 mg PO DAILY #5 tab 02/02/19 The following prescriptions were given: Prednisone [Deltasone] 40 mg PO DAILY #14 tab Transmission Status: Pending to [facility] levoFLOXacin tablet [Levaquin tablet] 750 mg PO DAILY #5 tab Transmission Status: Pending to [facility] Primary Care Physician: Alexa Becerra PA [Primary Care Provider] - Please follow up with your Primary Care Physician in: 3-5 days Test Results: Test results from this visit will be discussed in further detail at your follow- up appointment, if applicable.
--- NOTE | 2019-02-02 12:55 | PHA.DC.MC ---
Pharmacy Service has performed discharge medication reconciliation and counseling for this patient. 1. Levofloxacin 750mg PO daily x 5 days 2. Prednisone 40mg PO daily x 7 days The patient's discharge medication list was reviewed for discrepancies and discrepancies were resolved. Home Medications Acetaminophen [Tylenol Extra Strength] 1,000 mg PO DAILY PRN PRN 01/30/19 Leflunomide 10 mg DAILY 01/30/19 Metoprolol Succinate 50 mg PO DAILY 01/30/19 Prednisone 10 mg PO DAILY PRN PRN 01/30/19 Rivaroxaban [Xarelto] 20 mg PO DAILY 01/30/19 metFORMIN (XR) [Glucophage Xr] 500 mg PO DAILY 01/30/19 Prednisone [Deltasone] 40 mg PO DAILY #14 tab 02/02/19 levoFLOXacin tablet [Levaquin tablet] 750 mg PO DAILY #5 tab 02/02/19 The patient was counseled on the following discharge medications and changes in medications for homegoing were reviewed. The Reason for Use, instructions for use, and potential side effects were reviewed for all new medications. The patient's questions regarding all of their medications were answered. The patient was able to verbally demonstrate an understanding of their discharge medications.
--- NOTE | 2019-02-02 14:40 | DS.PCM_ITS ---
Discharge Date and Diagnosis Date of Admission: 01/30/19 Date of Discharge: 02/02/19 - Secondary Discharge Diagnosis Chronic Problems History of COPD (Chronic) History of chronic respiratory failure w (Chronic) Hospital Course and Treatment Imaging Results: CXR: IMPRESSION: Findings suggestive of chronic interstitial fibrosis more prominent in the right hemithorax. CXR: IMPRESSION: Mild improvement of the aeration of the right upper lobe. The remainder the examination is unchanged. Consults: None Operations: None Procedures: None Summary of Care Provided: Per HPI: The patient is a 63 year old F who presents to the emergency room due to shortness of breath x2 days. She also reports productive cough with yellow/green sputum, fever and wheezing. Patient reports incontinence of loose stool with coughing. She states approximately 2 years ago she was diagnosed with pneumonia and had to be transferred to a larger facility for treatment. She states she was told by her box spring maker if she developed similar symptoms that she should be seen at the hospital right away. Patient follows with Dr. Freeman, [facility] pulmonary medicine for COPD with chronic hypoxic respiratory failure. She wears 2 to 3 L nasal cannula continuously at baseline. She reports she quit smoking approximately 8 years ago. 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 She denies other exposure to sick contacts. Her other past medical history includes atrial fibrillation, rheumatoid arthritis and type 2 diabetes mellitus. Hospital Course: 1. Sepsis secondary to community-acquired pneumonia from gram-positive organism/COPD [id number] female who has a history of COPD who is on chronic oxygen at 2 L as well as a history of rheumatoid arthritis and is on intermittent prednisone. She presented with being short of breath for about 2 days as well as a productive cough. Sputum culture ended up growing MSSA as well as Serratia both sensitive to Levaquin. On the day of discharge she felt significantly better than when she came into the hospital. I discussed with her continue her antibiotic for 5 more days and the necessity of having outpatient follow-up. Also she was discharged on prednisone at 40 mg daily for 7 more days. She expressed understanding with the plan and understood the risks and benefits on discharge. Also she will likely need to adjust diabetic medications given the addition of prednisone. Though her blood sugar should return to baseline once the steroids are completed. She will need to follow-up with her primary care physician in 3 to 5 days. 2. Her other medical diagnoses were evaluated and were stable, her home medications were continued where appropriate Objective: General: Alert, Oriented x3, Cooperative, No apparent distress HEENT: Atraumatic, PERRLA, EOMI, Normocephalic Oral: Moist Mucosa Neck: Supple, No JVD Lungs: Normal air movement, No rhonchi, No rales, Diminished, Wheezes-improving Cardiovascular: Regular rate, Regular Rhythm, Normal S1, Normal S2, No murmurs Abdomen: Soft, Non Tender, Non-Distended, No Hepato-splenomegaly Extremities: No edema, Capillary Refill Less than 3 Seconds Skin: No rashes, No breakdown Neurological: Neuro grossly intact, Sensory exam intact to light touch and pain Psych/Mental Status: Normal Affect, Appropriate - Physical Exam Vital Signs Temp Pulse Resp BP Pulse Ox 98.3 F 104 H 18 118/56 L 96 02/02/19 10:06 02/02/19 11:17 02/02/19 10:35 02/02/19 10:06 02/02/19 10:06 Oxygen Flow Rate (L/min) 2 Oxygen Delivery Method Nasal Cannula Weight: 181 lb 10.574 oz Body Mass Index (BMI) 31.1 Intake and Output for Last 24 Hours 01/31/19 02/01/19 02/02/19 23:59 23:59 23:59 Intake Total 1800.84 / 1800.84 490 / 490 700 / 700 Balance 1800.84 / 1800.84 490 / 490 700 / 700 Microbiology Past 72 Hours 01/30/19 20:55 Gram Stain - Final Sputum, Expectorated/Coughed Respiratory Culture - Final Staphylococcus aureus Serratia marcescens 01/30/19 13:10 Blood Culture - Preliminary Blood Culture (Wb) - Right Hand No growth in 48 hours. 01/30/19 12:50 Blood Culture - Preliminary Blood Culture (Wb) - Anticubital Right No growth in 48 hours. 01/30/19 16:45 Respiratory Panel (PCR) - Final Mucosa - Nasopharyngeal 01/30/19 17:58 Streptococcus pneumoniae Antigen (M - Final Urine, Clean Catch 01/30/19 17:58 Legionella Antigen - Final Urine, Clean Catch POC Glucose 02/02/19 02/02/19 02/01/19 11:02 06:26 21:32 POC Glucose 385 H 158 H 165 H 02/01/19 16:59 POC Glucose 146 H Discharge Activity: Return to Normal Activity Call your doctor if you observe: Fever of 101 or Higher, Shortness of breath, Dizziness, Fainting spells, Swelling in the ankles, Chest pain, Increased palpitations (irregular heartbeat) Home Medications: Medications to take at Discharge Acetaminophen [Tylenol Extra Strength] 1,000 mg PO DAILY PRN PRN 01/30/19 Leflunomide 10 mg DAILY 01/30/19 Metoprolol Succinate 50 mg PO DAILY 01/30/19 Prednisone 10 mg PO DAILY PRN PRN 01/30/19 Rivaroxaban [Xarelto] 20 mg PO DAILY 01/30/19 metFORMIN (XR) [Glucophage Xr] 500 mg PO DAILY 01/30/19 Prednisone [Deltasone] 40 mg PO DAILY #14 tab 02/02/19 levoFLOXacin tablet [Levaquin tablet] 750 mg PO DAILY #5 tab 02/02/19 Following Prescrptions Were Given to Patient: Prednisone [Deltasone] 40 mg PO DAILY #14 tab Transmission Status: Received by [facility] levoFLOXacin tablet [Levaquin tablet] 750 mg PO DAILY #5 tab Transmission Status: Received by [facility] Primary Care Physician: Alexa Becerra PA [Primary Care Provider] - Please follow up with your Primary Care Physician in: 3-5 days Disposition: Home Minutes spent on discharge:: 35 Patient Condition:: Stable Medical Necessity - Tobacco Use Smoking Status: Former smoker Tobacco Use: Cigarettes Meaningful Use Info Meaningful Use Diagnoses (Choose all that apply): None applicable Code Visit Inpatient E&M: 12838 Disch Hosp
== END 2019-02-02 14:04 | disposition home or self-care (01) | DRG 190 ==
LOC: ED 15:24 → PCU 15:52
PROVIDERS: Nurse Practitioner Family; Admitting Provider Internal Medicine; Emergency Provider Emergency Medicine; Family Provider Physician Assistant; PCP Physician Assistant; Referring Provider Internal Medicine; Visit Provider Family Medicine
DX: J44.0 Chronic obstructive pulmonary disease with (acute) lower respiratory infection (principal); J18.9 Pneumonia, unspecified organism; J96.11 Chronic respiratory failure with hypoxia; J44.1 Chronic obstructive pulmonary disease with (acute) exacerbation; Z99.81 Dependence on supplemental oxygen; E11.9 Type 2 diabetes mellitus without complications; M06.9 Rheumatoid arthritis, unspecified; I48.0 Paroxysmal atrial fibrillation; D53.9 Nutritional anemia, unspecified; Z79.84 Long term (current) use of oral hypoglycemic drugs; Z87.891 Personal history of nicotine dependence
CPT/HCPCS: 36415; 36600; 71046; 80048; 80053; 82803; 82962; 83605; 85025; 85027; 87040; 87070; 87077; 87186; 87205; 87449; 87633; 93005; 94640; 94667; 94668; 99285; J7030; A4216

== ENCOUNTER 2019-05-10 09:11 | Inpatient (IN) | payer MEDICARE, SELFPAY ==
[2019-01-30 16:21] VITALS: BMI 31.1
[2019-05-10] VITALS (17 sets, daily range): BP systolic 100–119; BP diastolic 57–91; PULSE 90–162; RESP 16–30; TEMP 36.4–36.9; O2SAT 96–100; BMI 31.7; BMI 30.8
--- NOTE | 2019-05-10 09:28 | EKG12_ITS ---
Test Reason : SOB Blood Pressure : / mmHG Vent. Rate : 155 BPM Atrial Rate : 197 BPM P-R Int : 126 ms QRS Dur : 064 ms QT Int : 280 ms P-R-T Axes : 050 003 054 degrees QTc Int : 449 ms Sinus tachycardia with Premature supraventricular complexes Nonspecific ST abnormality Abnormal ECG Confirmed by MINDA NGUYEN, ALY ([id number]), continuity editor BEULAH BARRAGAN ([id number]) on 05/12/2019 2:30:33 PM Referred By: Alexa Becerra Confirmed By:BABATUNDE PERLA MD
--- NOTE | 2019-05-10 09:28 | RAD_ITS ---
STUDY: X-RAY CHEST REASON FOR EXAM: Female, 64 years old. SOB, COPD. COUGH, VOMITING TECHNIQUE: Single AP portable view of the chest. COMPARISON: Comparison is made with prior study dated January 31, 2019. FINDINGS: EKG electrodes are seen. Persistent increased markings in the lungs but there is confluence at both lung bases suggestive of chronic interstitial fibrosis. There is no demonstrated pleural abnormality. Normal size heart. Normal mediastinum and jessica. Normal visualized pulmonary arteries. Normal visualized aortic arch and descending thoracic aorta. There are degenerative changes of the visualized thoracic spine. Normal visualized ribs, clavicles, and shoulders. There is no demonstrated abnormality of the visualized soft tissue structures of the upper abdomen. RAD/Chest 1 View (Portable) IMPRESSION: Stable examination. Chronic interstitial fibrosis. Electronically Signed: Porter Vallecillo, at 10:35 EST , Service support ,
--- NOTE | 2019-05-10 09:32 | ED.VIS.DYS ---
History of Present Illness Chief Complaint: Shortness of Breath Informant: Patient Onset: Yesterday Activity at onset: Rest Timing: Continuous Quality: Wheezing - my COPD Current Severity: Moderate Maximum Severity: Moderate Worsened by: Coughing, Exertion Relieved by: Nothing - didn't try using her albuterol this AM Associated Symptoms: Cough, Green sputum Chest Pain: Tightness Narrative: Patient states she started having cough, congestion, right earache yesterday, was also having nausea and diarrhea and so stayed in bed yesterday and did not take her medications which include medicine for her A. fib, she started getting short of breath last night with wheezing that got a lot worse this morning and she feels her heart racing and irregular. Patient wears 3 L of home oxygen 24/ at home, where she lives with her . She denies any swelling in her legs recently or orthopnea. She has no history of congestive heart failure, PCI/CABG, or other heart surgery/pacemaker. She is anticoagulated for her atrial fibrillation. Prior similar symptoms: Yes - COPD and Pneumonia - Past Medical History (1) COPD (chronic obstructive pulmonary disease) Status: Chronic (2) Type 2 diabetes mellitus Status: Chronic (3) Arthritis Status: Chronic (4) Interstitial lung disease Status: Chronic Past Medical History - Allergies and Home Meds Allergies/Adverse Reactions: Allergies No Known Allergies Allergy (Verified 01/30/19 12:47) Primary Care Physician: Alexa Becerra PA [Primary Care Provider] - Surgical History: no surgical history Lives: Spouse/ Significant Other Smoking Status: Former smoker - Family History Maternal Family History: Reports: COPD Paternal Family History: Reports: COPD, Heart Disease Review of Systems General: Reports: Malaise. Denies: Chills, Fever, Sweats Eyes: Denies: Visual changes - bilaterally, Diplopia ENT: Reports: Right ear pain, Rhinorrhea. Denies: Sore throat Cardiovascular: Reports: Chest pain, Palpitations, Heart racing Respiratory: Reports: Dyspnea, Cough, Sputum, Dyspnea on exertion. Denies: Orthopnea Gastrointestinal: Reports: Nausea, Vomiting, Diarrhea. Denies: Abdominal pain, Melena, Hematochezia Genitourinary: Denies: Dysuria, Hematuria, Frequency Musculoskeletal: Denies: Neck pain, Back pain, Swelling, Extremity Pain Skin: Denies: Rash, Wounds Neurological: Denies: Headache, Weakness, Numbness Physical Exam Vital Signs/Narrative: Vital Signs Temp Pulse Resp BP Pulse Ox 05/10/19 09:14 98.5 F 162 H 27 H 119/91 H 97 Inital Vital Signs reviewed: Yes General: Well nourished, Well developed, No Acute Distress Head: Normocephalic, Atraumatic Eyes: Perrl, EOMI ENT: Moist mucous membranes, No rhinorrhea, - - POP clear. Right TM bulging w/ purulent effusion, no perforation or EAC abn. Left TM normal, EAC normal. Neck: Supple, Nontender, No lymphadenopathy, No JVD Cardiovascular: Normal S1, Normal S2, Irregular, Tachycardia Respiratory: No distress, Chest nontender, Rales - R base, Wheezing - diffuse throughout expiration Abdomen: Soft, Nontender, Nondistended, Normal bowel sounds Back: Nontender, Normal Inspection Extremities: Nontender, No edema. Negative for: Calf Tenderness Skin: Normal color, No rash, No Trauma Neurological: Alert, Oriented x3, Cranial nerves II-XII grossly intact, Normal Strength, Normal Sensation Psychological: Normal affect, Normal Mood Diagnostic/Tx/Re-eval Impressions Chest X-Ray 05/10/19 09:28 IMPRESSION: Stable examination. Chronic interstitial fibrosis. Electronically Signed: Porter Ruth Ann, at 10:35 EST , Service support , 05/10/19 09:28 Chest 1 View (Portable) [RAD] Stat 05/10/19 10:16 Mucosa - Nose Influenza Types A,B Direct FA (MELITA) - Final Laboratory Results 05/10/19 05/10/19 05/10/19 09:20 09:20 09:20 WBC 12.4 H RBC 4.02 L Hgb 11.6 L Hct 39.8 MCV 99.0 MCH 28.9 MCHC 29.1 L RDW Std Deviation 48.5 H RDW Coeff of Lainey 13.5 Plt Count 400 MPV 9.6 Immature Gran % (Auto) 0.700 Neut % (Auto) 71.6 H Lymph % (Auto) 17.7 L [place] % (Auto) 6.0 Eos % (Auto) 3.4 Baso % (Auto) 0.6 Absolute Neuts (auto) 8.9 H Absolute Lymphs (auto) 2.20 Nucleated RBC % 0 PT 13.9 INR 1.1 APTT 30.4 Sodium 136 Potassium 3.8 Chloride 102 Carbon Dioxide 31.0 Anion Gap 3 L BUN 13 Creatinine 0.84 Estim Creat Clear Calc 59.96 Est GFR (MDRD) Af Amer 88 Est GFR (MDRD) Non-Af 73 BUN/Creatinine Ratio 15.5 Glucose 113 H Lactic Acid Calcium 8.8 Total Bilirubin 0.30 AST 19 ALT 16 Alkaline Phosphatase 113 Troponin I < 0.015 Total Protein 7.9 Albumin 2.6 L Globulin 5.3 H Albumin/Globulin Ratio 0.5 L 05/10/19 09:20 WBC RBC Hgb Hct MCV MCH MCHC RDW Std Deviation RDW Coeff of Lainey Plt Count MPV Immature Gran % (Auto) Neut % (Auto) Lymph % (Auto) [place] % (Auto) Eos % (Auto) Baso % (Auto) Absolute Neuts (auto) Absolute Lymphs (auto) Nucleated RBC % PT INR APTT Sodium Potassium Chloride Carbon Dioxide Anion Gap BUN Creatinine Estim Creat Clear Calc Est GFR (MDRD) Af Amer Est GFR (MDRD) Non-Af BUN/Creatinine Ratio Glucose Lactic Acid 2.1 H* Calcium Total Bilirubin AST ALT Alkaline Phosphatase Troponin I Total Protein Albumin Globulin Albumin/Globulin Ratio - Rhythm Strip Rhythm Strip: A-fib Rate: 155 Ectopy: None - EKG Initial EKG Interpretation: No Acute Injury Pattern, Atrial Fibrillation - w/ RVR 150s, Non-Specific ST Changes Prior: Unchanged - 01/2019 Follow-up EKG Interpretation: No Acute Injury Pattern, Sinus Tachycardia Prior: Changed Treatment - Dyspnea: Oxygen, Albuterol, Atrovent, Antibiotics, Steroid Repeat Evaluation: Improved With Ambulation: Desaturation - 87% - Medical Decision Making Patient felt better, she converted to sinus rhythm, repeat EKG obtained and it is fine, sinus tachycardia 103. We ambulated her, she became very tachypneic with a very short walk, felt very weak, desatted to 87% while on her home oxygen of 3 L. I think admission would be warranted. I did discuss with someone from the pulmonary office that she sees as an outpatient, she has a history of interstitial lung disease but not fibrosis as the x-ray result suggests. Treated empirically for her otitis and COPD with antibiotics. She is not clinically septic although her lactate is elevated. Blood cultures were obtained. ED Disposition - Plan for ED Patient: Disposition: Acute Care Hospital [facility] Diagnosis: Acute respiratory failure with hypoxia, COPD exacerbation, Right otitis media, Chronic interstitial lung disease, Paroxysmal atrial fibrillation Referrals: Alexa Becerra PA [Primary Care Provider] -
[2019-05-10 09:38] LABS: Absolute Neutrophil Count 8.9 X10^3/uL (2.0-7.7); Basophil# 0.08 X10^3/uL; Basophil% 0.6 % (0-1); Eosinophil# 0.42 X10^3/uL; Eosinophils% 3.4 % (0-5); Hematocrit 39.8 % (37-47); Hemoglobin 11.6 g/dL (12.0-15.0); Lymphocyte % 17.7 % (19-41); Mean Corp Hgb Conc 29.1 g/dL (32-36); Mean Corpuscular Hgb 28.9 pg (27.0-32.0); Mean Platelet Vol. 9.6 fl (6.2-12.0); Monocyte# 0.75 X10^3/uL; NRBC Flagged by Analyzer 0 % (0-5); Neutrophil % 71.6 % (47-70); Platelet Count 400 K/mm3 (150-450); RBC Distribution Width CV 13.5 % (11.6-14.6); RBC Distribution Width SD 48.5 fl (35.1-43.9); Red Blood Count 4.02 M/mm3 (4.2-5.4); White Blood Count 12.4 K/mm3 (4.4-11.0)
[2019-05-10] MEDS: Ipratropium/Albuterol Sulfate 3 ML AMPUL.NEB INHALATION ×4 (09:49→22:48)
[2019-05-10] MEDS: Albuterol 2.5 MG/3 ML VIAL.NEB. INHALATION ×2 (09:49→12:14)
[2019-05-10 09:53] LABS: ALB/GLOB Ratio 0.5 RATIO (0.9-2.4); AST(SGOT) 19 U/L (15-37); Alanine Aminotransfer ALT/SGPT 16 U/L (13-56); Albumin, Serum 2.6 g/dL (3.2-5.0); Alkaline Phosphatase 113 U/L (45-117); Anion Gap 3 (5-15); BUN 13 mg/dL (7-18); BUN/Creat Ratio 15.5 RATIO (10-20); Calcium,Total 8.8 mg/dL (8.5-10.1); Chloride 102 mmol/L (98-107); Creatinine, Serum 0.84 mg/dL (0.55-1.02); EST Glomerular Filtration Rate 73 mL/min (>60); Est Glom Filt Rate - Afr Amer 88 mL/min (>60); Estimated Creatinine Clearance 59.96 ml/min; Globulin 5.3 g/dL (2.2-4.2); Glucose 113 mg/dL (74-106); Potassium 3.8 mmol/L (3.5-5.1); Protein, Total 7.9 g/dL (6.4-8.2); Sodium Level 136 mmol/L (136-145)
[2019-05-10] MEDS: Ondansetron 4 MG/2 ML Vial IV (09:54)
[2019-05-10] MEDS: dilTIAZem 25 MG/5 ML Vial 15 MG IV BOLUS (09:54)
[2019-05-10] MEDS: MethylPREDNISolone 125 MG/2 ML Vial IV (09:54)
[2019-05-10 09:56] LABS: International Normalized Ratio 1.1; Partial Thromboplast Time 30.4 Seconds (24.1-36.2); Prothrombin Time (Protime)PT. 13.9 SECONDS (11.7-14.9)
[2019-05-10] MEDS: 0.9% Normal Saline 1,000 ML 999 ML IV (09:56)
[2019-05-10 09:57] LABS: Lactic Acid 2.1 mmol/L (0.4-1.9)
[2019-05-10] MEDS: Metoprolol(XL)Succ 50 MG Tablet PO (09:58)
--- NOTE | 2019-05-10 10:30 | ED.RN ---
ASSUMED CARE FROM Laure CONTRERAS RN, CONFIRMED WITH HER THAT SECOND BLOOD CULTURE WAS NOT OBTAINED PRIOR TO STARTING IV ANTIBIOTICS. DR PATEL MADE AWARE.
--- NOTE | 2019-05-10 11:49 | EKG12_ITS ---
Test Reason : RYTHUM CHANGE Blood Pressure : / mmHG Vent. Rate : 103 BPM Atrial Rate : 103 BPM P-R Int : 150 ms QRS Dur : 068 ms QT Int : 342 ms P-R-T Axes : 028 001 009 degrees QTc Int : 448 ms Sinus tachycardia Otherwise normal ECG Confirmed by MINDA NGUYEN, ALY ([id number]), school photograph editor BEULAH BARRAGAN ([id number]) on 05/12/2019 2:30:45 PM Referred By: Alexa Becerra Confirmed By:BABATUNDE PERLA MD
[2019-05-10 13:08] LABS: Bacteria 0 SEEN /hpf (None Seen); Mucous, Urine 0 SEEN /hpf (<or=2+); Red Blood Cells-Urine 0 SEEN /hpf (0-5)
[2019-05-10 13:23] LABS: Color, Urine Yellow (Yellow); Glucose, Dipstick Normal (Normal); Ketone-Dipstick 15 mg/dl (Negative); Leukocyte Esterase-Dipstick 100 /ul (Negative); Nitrite-Dipstick Negative (Negative); Occult Blood-Urine Negative /ul (Negative); Protein-Dipstick 30 mg/dl (Negative); Urine Bilirubin Dipstick Negative (Negative); Urine Clarity Clear (Clear); Urine Urobilinogen Normal (Normal)
[2019-05-10 13:33] LABS: Reflex Lactate? Y
[2019-05-10 13:44] LABS: Squamous Epithelial Cells - UA 0-5 SEEN /hpf (5-10); White Blood Cells 10-25 SEEN /hpf (0-5)
--- NOTE | 2019-05-10 14:07 | PCM.HP.STD ---
<Sanjuanita Valverde - Last Filed: 05/10/19 14:57> Problem List (1) History of COPD Status: Chronic (2) History of chronic respiratory failure w Status: Chronic (3) Asthma exacerbation in COPD Status: Acute (4) Leukocytosis Status: Acute (5) Sinus tachycardia by electrocardiogram Status: Acute (6) COPD (chronic obstructive pulmonary disease) Status: Chronic (7) Type 2 diabetes mellitus Status: Chronic (8) Arthritis Status: Chronic (9) Right otitis media Status: Acute (10) Chronic interstitial lung disease Status: Chronic (11) Paroxysmal atrial fibrillation Status: Chronic History of Present Illness Date of Admission: 05/10/19 Chief Complaint: Shortness of breath. The patient is a 64 year old F who presents emergency room due to shortness of breath. Patient reports shortness of breath began Wednesday and has worsened since that time. She reports nonproductive cough, chills. She also reports nausea without emesis and diarrhea. Denies fever. Patient reports she is prescribed to wear 4 L supplemental oxygen at home however her nose gets too dry and she is only been wearing 3 L continuously at home. Patient reports she was very tired yesterday and did not take her home medications. She reports any recent antibiotic use. She has a past medical history of COPD and chronic interstitial lung disease with chronic approximate respiratory failure, type 2 diabetes mellitus, paroxysmal atrial fibrillation and rheumatoid arthritis. Past Medical History Past Medical History (Chronic Problems): Chronic Problems History of COPD (Chronic) History of chronic respiratory failure w (Chronic) COPD (chronic obstructive pulmonary disease) (Chronic) Type 2 diabetes mellitus (Chronic) Arthritis (Chronic) Chronic interstitial lung disease (Chronic) Paroxysmal atrial fibrillation (Chronic) COPD exacerbation (Chronic) Allergies No Known Allergies Allergy (Verified 01/30/19 12:47) Home Medications: Ambulatory Orders Medication Instructions Recorded RX: Acetaminophen [Tylenol Extra 1,000 mg PO DAILY PRN PRN 01/30/19 Strength] RX: Leflunomide 10 mg PO DAILY 01/30/19 RX: Metoprolol Succinate 50 mg PO DAILY 01/30/19 RX: Prednisone 10 mg PO DAILY PRN PRN 01/30/19 RX: Rivaroxaban [Xarelto] 20 mg PO DAILY 01/30/19 RX: metFORMIN (XR) [Glucophage Xr] 500 mg PO DAILY 01/30/19 Ipratropium/Albuterol Sulfate 3 ml INHALATION Q6H.RT 05/10/19 [Duoneb] RX: Fluticasone Propionate 1 spray NASAL DAILY 05/10/19 RX: Gabapentin [Neurontin] 100 mg PO DAILY 05/10/19 RX: Gabapentin [Neurontin] 200 mg PO QHS 05/10/19 Surgical History: no surgical history Psychiatric History: No pertinent psych hx 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 Denies: Fever HEENT: Denies: Head Aches, Sinus Congestion, Sinus Drainage Cardiovascular: Denies: Chest Pain, Edema, Light Headedness, Palpitations, Syncope Respiratory: Reports: Cough, Shortness of Breath Gastrointestinal: Reports: Diarrhea, Nausea. Denies: Abdominal Pain, Vomiting Genitourinary: Denies: Dysuria Musculoskeletal: Denies: Joint Pain, Joint Tenderness Skin: Denies: Rash, Wounds Neurological: Denies: Numbness, Tingling, Focal weakness Psychiatric: Denies: Anxiety, Depression, Homicidal Ideations, Suicidal Ideations Hematologic/ Lymphatic: Denies: Easy Bruising, Easy Bleeding VTE Information - Inpt Only VTE Present on Admission: No VTE Mechan Device Prophylaxis: None Reason prophylaxis not ordered:: Treatment Not Indicated - On Xarelto Patient Problems: Active and Suspected Problems Right otitis media (Acute) Acute respiratory failure with hypoxia (Acute) - Physical Exam Vitals/I&O's: Vital Signs Temp Pulse Resp BP Pulse Ox 98.5 F 110 H 24 H 102/69 97 05/10/19 13:28 05/10/19 13:07 05/10/19 13:07 05/10/19 13:07 05/10/19 13:07 Oxygen Flow Rate (L/min) 3 Oxygen Delivery Method Nasal Cannula Weight: 184 lb 15.485 oz Body Mass Index (BMI) 31.7 Intake and Output for Last 24 Hours 05/08/19 05/09/19 05/10/19 23:59 23:59 23:59 Intake Total 1355 / 1355 Balance 1355 / 1355 General: Alert, Oriented x3, Cooperative HEENT: Atraumatic, PERRLA, EOMI, Normocephalic Oral: Dry Mucosa Neck: Supple, No JVD, Negative Carotid Bruits Lungs: Diminished, Wheezes Cardiovascular: - - Atrial fibrillation, tachycardic Abdomen: Bowel Sounds Present, Soft, Non Tender Extremities: No clubbing, No cyanosis, No edema, Capillary Refill Less than 3 Seconds Skin: No rashes, No breakdown Musculoskeletal: No Tenderness to Palpation of Joints or Extremities Neurological: Cranial nerves II-XII grossly intact, Neuro grossly intact Psych/Mental Status: Normal Affect, Appropriate Microbiology Past 72 Hours 05/10/19 10:16 Mucosa - Nose Influenza Types A,B Direct FA (MELITA) - Final Laboratory Results 05/10/19 09:20: WBC 12.4 H, RBC 4.02 L, Hgb 11.6 L, Hct 39.8, MCV 99.0, MCH 28.9, MCHC 29.1 L, RDW Std Deviation 48.5 H, RDW Coeff of Lainey 13.5, Plt Count 400, MPV 9.6, Immature Gran % (Auto) 0.700, Neut % (Auto) 71.6 H, Lymph % (Auto) 17.7 L, Desha % (Auto) 6.0, Eos % (Auto) 3.4, Baso % (Auto) 0.6, Absolute Neuts (auto) 8.9 H, Absolute Lymphs (auto) 2.20, Nucleated RBC % 0 05/10/19 09:20: PT 13.9, INR 1.1, APTT 30.4 05/10/19 09:20: Sodium 136, Potassium 3.8, Chloride 102, Carbon Dioxide 31.0, Anion Gap 3 L, BUN 13, Creatinine 0.84, Estim Creat Clear Calc 59.96, Est GFR (MDRD) Af Amer 88, Est GFR (MDRD) Non-Af 73, BUN/Creatinine Ratio 15.5, Glucose 113 H, Calcium 8.8, Total Bilirubin 0.30, AST 19, ALT 16, Alkaline Phosphatase 113, Troponin I < 0.015, Total Protein 7.9, Albumin 2.6 L, Globulin 5.3 H, Albumin/Globulin Ratio 0.5 L 05/10/19 09:20: Lactic Acid 2.1 H* 05/10/19 12:57: Urine Color Yellow, Urine Clarity Clear, Urine pH 5.0, Ur Specific [place] 1.020, Urine Protein 30 H, Urine Glucose (UA) Normal, Urine Ketones 15 H, Urine Occult Blood Negative, Urine Nitrite Negative, Urine Bilirubin Negative, Urine Urobilinogen Normal, Ur Leukocyte Esterase 100 H, Urine RBC 0 SEEN, Urine WBC 10-25 SEEN, Ur Squamous Epith Cells 0-5 SEEN, Urine Bacteria 0 SEEN, Urine Mucus 0 SEEN Assessment/Plan All Active Problems Asthma exacerbation in COPD (Acute) Leukocytosis (Acute) Sinus tachycardia by electrocardiogram (Acute) Right otitis media (Acute) Acute respiratory failure with hypoxia (Acute) 1. Acute COPD exacerbation with chronic hypoxic respiratory failure-chest x-ray unremarkable. Chronic interstitial fibrosis. Afebrile. Mild leukocytosis. IV Solu-Medrol. Respiratory panel pending. Continue supplement oxygen to maintain O2 at or above 90%. Albuterol and DuoNeb aerosols. 2. Right otitis media-on Augmentin. 3. Lactic acidosis-secondary to #1. No sepsis. Repeat lactic acid normal. 4. Atrial fibrillation with RVR, history of PAF-rate improved following Cardizem bolus in ER. Continue metoprolol, Xarelto regimen. Patient had not been taking her home medication regimen over the last 1 to 2 days. 5. Chronic interstitial lung disease 6. Type 2 diabetes mellitus with neuropathy-hold metformin. Accu-Cheks with sliding scale insulin. Continue gabapentin regimen. 7. Rheumatoid arthritis-continue leflunomide. DVT prophylaxis-Xarelto This patient was seen by SAMANTHA Muñiz under the supervision of Dr. Sanchez. <Leo Sanchez F - Last Filed: 05/10/19 16:31> History of Present Illness The patient is a 64 year old F [] Past Medical History Allergies No Known Allergies Allergy (Verified 01/30/19 12:47) - Physical Exam Vitals/I&O's: Vital Signs Temp Pulse Resp BP Pulse Ox 98.2 F 94 18 119/74 99 05/10/19 14:44 05/10/19 15:34 05/10/19 15:34 05/10/19 14:44 05/10/19 15:34 Oxygen Flow Rate (L/min) 4 Oxygen Delivery Method Nasal Cannula Weight: 179 lb 7.3 oz Body Mass Index (BMI) 30.8 Intake and Output for Last 24 Hours 05/08/19 05/09/19 05/10/19 23:59 23:59 23:59 Intake Total 1355 / 1355 Balance 1355 / 1355 Microbiology Past 72 Hours 05/10/19 10:16 Mucosa - Nose Influenza Types A,B Direct FA (MELITA) - Final Laboratory Results 05/10/19 09:20: WBC 12.4 H, RBC 4.02 L, Hgb 11.6 L, Hct 39.8, MCV 99.0, MCH 28.9, MCHC 29.1 L, RDW Std Deviation 48.5 H, RDW Coeff of Lainey 13.5, Plt Count 400, MPV 9.6, Immature Gran % (Auto) 0.700, Neut % (Auto) 71.6 H, Lymph % (Auto) 17.7 L, Desha % (Auto) 6.0, Eos % (Auto) 3.4, Baso % (Auto) 0.6, Absolute Neuts (auto) 8.9 H, Absolute Lymphs (auto) 2.20, Nucleated RBC % 0 05/10/19 09:20: PT 13.9, INR 1.1, APTT 30.4 05/10/19 09:20: Sodium 136, Potassium 3.8, Chloride 102, Carbon Dioxide 31.0, Anion Gap 3 L, BUN 13, Creatinine 0.84, Estim Creat Clear Calc 59.96, Est GFR (MDRD) Af Amer 88, Est GFR (MDRD) Non-Af 73, BUN/Creatinine Ratio 15.5, Glucose 113 H, Calcium 8.8, Total Bilirubin 0.30, AST 19, ALT 16, Alkaline Phosphatase 113, Troponin I < 0.015, Total Protein 7.9, Albumin 2.6 L, Globulin 5.3 H, Albumin/Globulin Ratio 0.5 L 05/10/19 09:20: Lactic Acid 2.1 H* 05/10/19 12:57: Urine Color Yellow, Urine Clarity Clear, Urine pH 5.0, Ur Specific [place] 1.020, Urine Protein 30 H, Urine Glucose (UA) Normal, Urine Ketones 15 H, Urine Occult Blood Negative, Urine Nitrite Negative, Urine Bilirubin Negative, Urine Urobilinogen Normal, Ur Leukocyte Esterase 100 H, Urine RBC 0 SEEN, Urine WBC 10-25 SEEN, Ur Squamous Epith Cells 0-5 SEEN, Urine Bacteria 0 SEEN, Urine Mucus 0 SEEN 05/10/19 14:23: Lactic Acid 1.2 05/10/19 14:57: POC Glucose 187 H Current Medications Acetaminophen (Tylenol) 650 mg PO Q6H PRN PRN PRN Reason: Pain Score 1-3/Temp > 100.7 F Albuterol Sulfate (Ventolin Aerosols) 2.5 mg INHALATION Q2H PRN PRN PRN Reason: SHORTNESS OF BREATH Albuterol/Ipratropium (Duoneb) 3 ml INHALATION Q4HWA.RT [facility] Last Admin: 05/10/19 15:33 Dose: 3 ml Documented by: Gabapentin (Neurontin) 100 mg PO DAILY@0800 [facility] Gabapentin (Neurontin) 200 mg PO QHS [facility] Glucagon () 1 mg IM .X1 PRN PRN Reason: Hypoglycemia Sodium Chloride () 1,000 mls @ 75 mls/hr IV .[id number] [facility] Last Admin: 05/10/19 15:41 Dose: 75 mls/hr Documented by: Dextrose (Dextrose 10%-Water) 250 mls @ 999 mls/hr IV .Q16M PRN; Protocol PRN Reason: HYPOGLYCEMIA Insulin Human Lispro (Humalog Kwikpen (Bkc)) 0 unit SC ACHS [facility]; Protocol Last Admin: 05/10/19 15:42 Dose: 2 units Documented by: Leflunomide (Leflunomide) 10 mg PO DAILY [facility] Methylprednisolone (Solu-Medrol) 40 mg IV Q8 [facility] Last Admin: 05/10/19 15:42 Dose: 40 mg Documented by: Metoprolol Succinate (Toprol Xl (Beta Maciel)) 50 mg PO DAILY [facility] Ondansetron HCl (Zofran) 4 mg IV Q8H PRN PRN PRN Reason: NAUSEA/VOMITING Rivaroxaban (Xarelto) 20 mg PO DAILY@1700 [facility] Sodium Chloride () 10 - 40 ml IV UD PRN PRN Reason: SALINE FLUSH Last Admin: 05/10/19 15:42 Dose: 10 ml Documented by: Code Visit Addendum: Dr. Sanchez I personally examined the patient and reviewed the chart. I agree with the above. 62-year-old female with history of COPD and rheumatoid arthritis presents with shortness of breath for about a week. She has been taking her inhalers as instructed and she started taking her prednisone 10 mg daily as she has that available to hopefully prevent worsening of exacerbations. However she presented today with more shortness of breath. She was on her normal 3 L of oxygen at home however with ambulation today she desaturated to 87%. She was started on Solu-Medrol as well as breathing treatments. There was some question of right otitis media however on my exam there was not any swelling in her TM or redness or any effusion that I could see. There was some pain with external ear manipulation but that was also not very severe. Will hold off on any antibiotics as her leukocytosis is likely secondary to her prednisone use. She also had an episode of A. fib with RVR but that was secondary to not taking her metoprolol yesterday or today, and when she was given a dose as well as Cardizem in the ER, she reverted to normal sinus rhythm though still little bit tachycardic. We will continue with COPD exacerbation treatment and monitor. Inpatient E&M: 39132 In Hosp L3
[2019-05-10 14:52] LABS: Lactic Acid 1.2 mmol/L (0.4-1.9)
[2019-05-10 15:10] LABS: Bedside Glucose 187 mg/dL (70-110)
--- NOTE | 2019-05-10 15:16 | NURSING ---
pt reports taking prednisone daily at home- due to feeling sick and achiness.
[2019-05-10] MEDS: 0.9% Normal Saline 1,000 ML 75 ML IV (15:41)
[2019-05-10] MEDS: Insulin Lispro 100 UNIT/ML INSULN.PEN SC ×3 (15:42→21:34)
[2019-05-10] MEDS: 0.9% Saline Lock 10 ML Syringe IV (15:42)
[2019-05-10] MEDS: Rivaroxaban 20 MG Tablet PO (16:24)
[2019-05-10 19:06] LABS: Bedside Glucose 235 mg/dL (70-110)
[2019-05-10] MEDS: Gabapentin 100 MG Capsule 200 MG PO (21:30)
[2019-05-10 22:16] LABS: Bedside Glucose 187 mg/dL (70-110)
[2019-05-11] VITALS (11 sets, daily range): BP systolic 118–139; BP diastolic 60–78; PULSE 76–95; RESP 16–22; TEMP 36.4–36.6; O2SAT 95–100
[2019-05-11] MEDS: 0.9% Normal Saline 1,000 ML 75 ML IV (04:43)
[2019-05-11] MEDS: Insulin Lispro 100 UNIT/ML INSULN.PEN SC ×2 (06:41→12:10)
[2019-05-11 06:51] LABS: Anion Gap 3 (5-15); BUN 13 mg/dL (7-18); BUN/Creat Ratio 17.9 RATIO (10-20); Calcium,Total 8.2 mg/dL (8.5-10.1); Chloride 112 mmol/L (98-107); Creatinine, Serum 0.73 mg/dL (0.55-1.02); EST Glomerular Filtration Rate 86 mL/min (>60); Est Glom Filt Rate - Afr Amer 104 mL/min (>60); Glucose 170 mg/dL (74-106); Potassium 4.2 mmol/L (3.5-5.1); Sodium Level 142 mmol/L (136-145)
[2019-05-11 06:56] LABS: Bedside Glucose 170 mg/dL (70-110)
[2019-05-11] MEDS: Ipratropium/Albuterol Sulfate 3 ML AMPUL.NEB INHALATION ×5 (07:11→23:22)
[2019-05-11] MEDS: Metoprolol(XL)Succ 50 MG Tablet PO (08:05)
[2019-05-11] MEDS: Gabapentin 100 MG Capsule PO (08:06)
[2019-05-11] MEDS: Fluticasone 0.05% 1 SPRAY NASAL.SRY NASAL (08:06)
--- NOTE | 2019-05-11 08:57 | PCM.PN.HOSP ---
Patient Problems: Active and Suspected Problems Right otitis media (Acute) Acute respiratory failure with hypoxia (Acute) Reason for Visit: COPD exacerbation. Subjective: Breathing better. Complains of pain in the region just posterior to her right ear has been going on for about a week. Patient is on chronic oxygen [address] Freeman for pulmonology and has been diagnosed with COPD. She states that she is never been told that she has pulmonary fibrosis. Patient has been seeing him since 2006. Vitals/I&O's: Vital Signs Temp Pulse Resp BP Pulse Ox 36.4 C L 87 18 120/75 98 05/11/19 08:23 05/11/19 08:23 05/11/19 08:23 05/11/19 08:23 05/11/19 08:23 Oxygen Flow Rate (L/min) 2 Oxygen Delivery Method Nasal Cannula Weight: 81.4 kg Body Mass Index (BMI) 30.8 Intake and Output for Last 24 Hours 05/09/19 05/10/19 05/11/19 23:59 23:59 23:59 Intake Total 1555 / 1855 1602.5 / 1602.5 Output Total 350 / 350 800 / 800 Balance 1205 / 1505 802.5 / 802.5 General: Alert, No apparent distress HEENT: Atraumatic, Normocephalic, - - Slight right mastoid tenderness. Unable to visualize her tympanic membrane on the right due to cerumen impaction. Neck: No Nodes, Trachea Midline Lungs: Normal air movement, - - Bilateral fine crackles throughout Cardiovascular: Regular rate, Regular Rhythm, Normal S1, Normal S2, No murmurs Abdomen: Bowel Sounds Present, Soft, Non Tender, Non-Distended, No Hepato-splenomegaly Extremities: No edema, No Calf Tenderness Skin: No rashes, No breakdown Musculoskeletal: No Tenderness to Palpation of Joints or Extremities, No Muscle Wasting Psych/Mental Status: Normal Affect, Appropriate Microbiology Past 72 Hours 05/10/19 10:16 Mucosa - Nose Influenza Types A,B Direct FA (MELITA) - Final Laboratory Results 05/10/19 09:20: WBC 12.4 H, RBC 4.02 L, Hgb 11.6 L, Hct 39.8, MCV 99.0, MCH 28.9, MCHC 29.1 L, RDW Std Deviation 48.5 H, RDW Coeff of Lainey 13.5, Plt Count 400, MPV 9.6, Immature Gran % (Auto) 0.700, Neut % (Auto) 71.6 H, Lymph % (Auto) 17.7 L, [place] % (Auto) 6.0, Eos % (Auto) 3.4, Baso % (Auto) 0.6, Absolute Neuts (auto) 8.9 H, Absolute Lymphs (auto) 2.20, Nucleated RBC % 0 05/10/19 09:20: PT 13.9, INR 1.1, APTT 30.4 05/10/19 09:20: Sodium 136, Potassium 3.8, Chloride 102, Carbon Dioxide 31.0, Anion Gap 3 L, BUN 13, Creatinine 0.84, Estim Creat Clear Calc 59.96, Est GFR (MDRD) Af Amer 88, Est GFR (MDRD) Non-Af 73, BUN/Creatinine Ratio 15.5, Glucose 113 H, Calcium 8.8, Total Bilirubin 0.30, AST 19, ALT 16, Alkaline Phosphatase 113, Troponin I < 0.015, Total Protein 7.9, Albumin 2.6 L, Globulin 5.3 H, Albumin/Globulin Ratio 0.5 L 05/10/19 09:20: Lactic Acid 2.1 H* 05/10/19 12:57: Urine Color Yellow, Urine Clarity Clear, Urine pH 5.0, Ur Specific [place] 1.020, Urine Protein 30 H, Urine Glucose (UA) Normal, Urine Ketones 15 H, Urine Occult Blood Negative, Urine Nitrite Negative, Urine Bilirubin Negative, Urine Urobilinogen Normal, Ur Leukocyte Esterase 100 H, Urine RBC 0 SEEN, Urine WBC 10-25 SEEN, Ur Squamous Epith Cells 0-5 SEEN, Urine Bacteria 0 SEEN, Urine Mucus 0 SEEN 05/10/19 14:23: Lactic Acid 1.2 05/10/19 14:57: POC Glucose 187 H 05/10/19 18:57: POC Glucose 235 H 05/10/19 21:34: POC Glucose 187 H 05/11/19 05:45: Sodium 142, Potassium 4.2, Chloride 112 H, Carbon Dioxide 27.0, Anion Gap 3 L, BUN 13, Creatinine 0.73, Estim Creat Clear Calc 69.00, Est GFR (MDRD) Af Amer 104, Est GFR (MDRD) Non-Af 86, BUN/Creatinine Ratio 17.9, Glucose 170 H, Calcium 8.2 L 05/11/19 06:40: POC Glucose 170 H Current Medications Acetaminophen (Tylenol) 650 mg PO Q6H PRN PRN PRN Reason: Pain Score 1-3/Temp > 100.7 F Albuterol Sulfate (Ventolin Aerosols) 2.5 mg INHALATION Q2H PRN PRN PRN Reason: SHORTNESS OF BREATH Albuterol/Ipratropium (Duoneb) 3 ml INHALATION Q4HWA.RT [facility] Last Admin: 05/11/19 07:11 Dose: 3 ml Documented by: Fluticasone Propionate (Flonase Nasal [place]) 1 spray NASAL DAILY [facility] Last Admin: 05/11/19 08:06 Dose: 1 spray Documented by: Gabapentin (Neurontin) 100 mg PO DAILY@0800 [facility] Last Admin: 05/11/19 08:06 Dose: 100 mg Documented by: Gabapentin (Neurontin) 200 mg PO QHS [facility] Last Admin: 05/10/19 21:30 Dose: 200 mg Documented by: Glucagon () 1 mg IM .X1 PRN PRN Reason: Hypoglycemia Sodium Chloride () 1,000 mls @ 75 mls/hr IV .[id number] [facility] Last Admin: 05/11/19 04:43 Dose: 75 mls/hr Documented by: Dextrose (Dextrose 10%-Water) 250 mls @ 999 mls/hr IV .Q16M PRN; Protocol PRN Reason: HYPOGLYCEMIA Insulin Human Lispro (Humalog Kwikpen (Bkc)) 0 unit SC ACHS [facility]; Protocol Last Admin: 05/11/19 06:41 Dose: 2 units Documented by: Leflunomide (Leflunomide) 10 mg PO DAILY [facility] Methylprednisolone (Solu-Medrol) 40 mg IV Q8 [facility] Last Admin: 05/11/19 04:44 Dose: 40 mg Documented by: Metoprolol Succinate (Toprol Xl (Beta Maciel)) 50 mg PO DAILY [facility] Last Admin: 05/11/19 08:05 Dose: 50 mg Documented by: Ondansetron HCl (Zofran) 4 mg IV Q8H PRN PRN PRN Reason: NAUSEA/VOMITING Rivaroxaban (Xarelto) 20 mg PO DAILY@1700 [facility] Last Admin: 05/10/19 16:24 Dose: 20 mg Documented by: Sodium Chloride () 10 - 40 ml IV UD PRN PRN Reason: SALINE FLUSH Last Admin: 05/10/19 15:42 Dose: 10 ml Documented by: STROKE Vital Signs/Narrative: Vital Signs Temp Pulse Resp BP Pulse Ox 05/11/19 08:23 36.4 C L 87 18 120/75 98 05/11/19 08:05 86 05/11/19 07:15 76 18 98 Medical Necessity - Tobacco Use Smoking Status: Former smoker Tobacco Use: Cigarettes Assessment/Plan All Active Problems Asthma exacerbation in COPD (Acute) Leukocytosis (Acute) Sinus tachycardia by electrocardiogram (Acute) Right otitis media (Acute) Acute respiratory failure with hypoxia (Acute) 1. AECOPD CXR reviewed and looks more like pulmonary fibrosis (though interstitial lung disease is on her PMHx). Patient has had CTs previously, so will no perform one at this time, unless her condition deteriorates. Wean steroids check records from Dr. Freeman's office. Reviewed CXRs which show chronic pulmonary fibrosis pattern 2. Right mastoid tenderness OM diagnosed on admission, but TMs not visualized Asked RN to wash out ear canal (no ear curettes on floor) check CT of head to eval for mastoiditis given her chronic lung dz, may be at risk for further exacerbations if not properly addressed. 3. Lactic acidosis met 2/4 SIRS criteria with tachycardia and tachypnea. However, this may have been due respiratory distress 4. VTE prophylaxis low risk as already anticoagulated on rivaroxaban. Code Visit Inpatient E&M: 03205 Subs Hosp L2
--- NOTE | 2019-05-11 09:18 | CT_ITS ---
INDICATION: PT STATED EAR PAIN, WORSE ON RT, SUSPECTED MASTOIDITIS EXAMINATION: CT IAC TEMPORAL BONES - CT IAC/PF/Orbit/Sella W/O Contrast Injection Technique: routine noncontrast CT protocol was performed of the internal auditory canals and temporal bones. 2-D reformats were performed by the technologist. A radiation dose optimization technique was used for this scan. IV Contrast dosage and agent: None. COMPARISON: None. FINDINGS: RIGHT SIDE: No fracture. SUPERFICIAL SOFT TISSUES: Unremarkable. MASTOID AIR CELLS: Complete opacification of the right mastoid air cells. EXTERNAL AUDITORY CANALS: Clear. MIDDLE EAR CAVITIES: Soft tissue prominence within the middle ear cavity suggestive of a cholesteatoma. The ossicles are indicated within the soft tissues. INTERNAL AUDITORY CANALS: Unremarkable bilateral internal auditory canals. No osseous erosion or widening of the canal. INNER EAR: Unremarkable cochlea, vestibule and semicircular canals. LEFT SIDE: No fracture. SUPERFICIAL SOFT TISSUES: Unremarkable. MASTOID AIR CELLS: Opacification of the mastoid air cells. EXTERNAL AUDITORY CANALS: Clear. MIDDLE EAR CAVITIES: Diffuse soft tissue prominence within the middle ear cavity with involvement of the ossicles and keep with cholesteatoma. INTERNAL AUDITORY CANALS: Unremarkable bilateral internal auditory canals. No osseous erosion or widening of the canal. INNER EAR: Unremarkable cochlea, vestibule and semicircular canals. VISUALIZED BRAIN AND POSTERIOR FOSSA: Cerebello-pontine angles are unremarkable. Partial opacification of the right maxillary sinus and the ethmoid sinuses. 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 Electronically Signed: Porter Vallecillo, at 10:17 EST , Service support ,
--- NOTE | 2019-05-11 12:42 | CASEMGMT ---
RN CM Assessment Note Presentation: COPD with otitis media Intro role of CM and purpose of RN CM assessment to patient in room. Pt states she cannot hear well from R ear due to infections. Demographics, PCP and Pharmacy verified. Pt states she is independent @ home and is able to assist with any care needs. Pt wears home oxygen and states she is compliant with physician f/u. PCP: Dr. Harlan Becerra Specialists: Dr. Nahum Parson, cardiology; Dr. Freeman, pulmonology; Dr. Graham, arthritis Preferred [facility]acy: [facility] Insurance: [employer] Medicare Advantage Prescription Benefit: yes LNOK: , Isra Living Arrangements: Lives independently with her . States her has retired to help care for her. assists with shower safety and provides transportation when needed. Pt denied using ambulatory DME. Transportation: Pt or her DME: walker, shower chair. Oxygen through [facility] 3-4L continuous. Has concentrator, portable tanks and nebulizer. HHC/SNF: none Patient DC goals: Home DC PLAN: Home with 's support. Sean CABRERAN RN ACM
--- NOTE | 2019-05-11 13:22 | CASEMGMT ---
Social Work Note SW completed Palliative Care screening tool, pt scored a 2. SW met with pt and introduced self and role at [facility]. SW educated pt on Palliative Care and provided pt with brochure. Pt states that her and oldest son help her with her medications, doctors appt, etc. and denied wanting Palliative Care referral made at this time. Pt states she will take brochure home though and review information. Subha Hughes SENIOR SOFTWARE QUALITY ENGINEER, FIRE PROTECTION INSPECTOR
[2019-05-11 13:35] LABS: Bedside Glucose 179 mg/dL (70-110)
[2019-05-11] MEDS: Leflunomide 10 MG TABLET PO (14:24)
[2019-05-11] MEDS: levoFLOXacin 750 MG Tablet PO (14:25)
--- NOTE | 2019-05-11 15:44 | NURSING ---
rinsed rt ear canal with warm water using bulb syringe. mild improvement after flushing
[2019-05-11 16:30] LABS: Bedside Glucose 122 mg/dL (70-110)
[2019-05-11] MEDS: Rivaroxaban 20 MG Tablet PO (16:30)
--- NOTE | 2019-05-11 20:25 | NURSING ---
rinsed right ear canal with warm water and bulb syringe. pt jasson well. reports minor improvement.
[2019-05-11 22:56] LABS: Bedside Glucose 121 mg/dL (70-110)
[2019-05-11] MEDS: Gabapentin 100 MG Capsule 200 MG PO (22:59)
[2019-05-11] MEDS: 0.9% Saline Lock 10 ML Syringe IV (23:00)
[2019-05-11] MEDS: Acetaminophen 325 MG Tablet 650 MG PO (23:03)
[2019-05-12 02:20] VITALS: BP 153/83; PULSE 89; RESP 18; TEMP 36.6; O2SAT 100
[2019-05-12] MEDS: levoFLOXacin 750 MG Tablet PO (06:48)
[2019-05-12] MEDS: Insulin Lispro 100 UNIT/ML INSULN.PEN SC (06:51)
[2019-05-12 06:56] LABS: Bedside Glucose 162 mg/dL (70-110)
[2019-05-12 07:40] VITALS: PULSE 84; RESP 16
[2019-05-12] MEDS: Ipratropium/Albuterol Sulfate 3 ML AMPUL.NEB INHALATION ×2 (07:40→10:59)
[2019-05-12] MEDS: Gabapentin 100 MG Capsule PO (08:07)
[2019-05-12] MEDS: Leflunomide 10 MG TABLET PO (08:07)
[2019-05-12] MEDS: Fluticasone 0.05% 1 SPRAY NASAL.SRY NASAL (08:07)
[2019-05-12 08:08] VITALS: PULSE 90
[2019-05-12] MEDS: Metoprolol(XL)Succ 50 MG Tablet PO (08:08)
[2019-05-12 08:20] VITALS: BP 127/70; PULSE 90; RESP 16; TEMP 36.6; O2SAT 98
--- NOTE | 2019-05-12 09:13 | DCINST_ITS ---
- Discharge Diagnoses Current Active Problems: Current Active and Chronic Problems Right otitis media (Acute) Chronic interstitial lung disease (Chronic) Paroxysmal atrial fibrillation (Chronic) Acute respiratory failure with hypoxia (Acute) COPD exacerbation (Chronic) You will use the following diet at home:: No restrictions Your food should be the consistency of: Regular Discharge Activity: Return to Normal Activity Call your doctor if you observe: Fever of 101 or Higher, - - increasing shortness of breath Allergies/Adverse Reactions: Allergies No Known Allergies Allergy (Verified 01/30/19 12:47) Medications to take at Discharge Acetaminophen [Tylenol Extra Strength] 1,000 mg PO DAILY PRN PRN 01/30/19 Leflunomide 10 mg PO DAILY 01/30/19 Metoprolol Succinate 50 mg PO DAILY 01/30/19 Rivaroxaban [Xarelto] 20 mg PO DAILY 01/30/19 metFORMIN (XR) [Glucophage Xr] 500 mg PO DAILY 01/30/19 Fluticasone Propionate 1 spray NASAL DAILY 05/10/19 Gabapentin [Neurontin] 100 mg PO DAILY 05/10/19 Gabapentin [Neurontin] 200 mg PO QHS 05/10/19 Ipratropium/Albuterol Sulfate [Duoneb] 3 ml INHALATION Q6H.RT 05/10/19 Prednisone 1 tab PO DAILY #30 tab 05/12/19 levoFLOXacin tablet [Levaquin tablet] 750 mg PO DAILY@0600 #12 tab 05/12/19 The following prescriptions were given: levoFLOXacin tablet [Levaquin tablet] 750 mg PO DAILY@0600 #12 tab Transmission Status: Pending to [id number] Prednisone 1 tab PO DAILY #30 tab Transmission Status: Pending to [id number] Primary Care Physician: Alexa Becerra PA [Primary Care Provider] - Within 2 Weeks Test Results: Test results from this visit will be discussed in further detail at your follow- up appointment, if applicable. Please Follow Up With: Devante Freeman MD When: 1-2 months Please Follow Up With: Joe Murphy MD - ENT follow up for mastoiditis When: 1-2 weeks Proposed Discharge Date: 05/12/19
--- NOTE | 2019-05-12 09:16 | PCM.DC.SUM ---
Discharge Date and Diagnosis - Problem List Patient Problems: Active and Suspected Problems Right otitis media (Acute) Acute respiratory failure with hypoxia (Acute) Date of Admission: 05/10/19 Date of Discharge: 05/12/19 - Primary Discharge Diagnosis Active and Suspected Problems 1. acute exacerbation of COPD 2. Acute bilateral mastoiditis - Secondary Discharge Diagnosis Chronic Problems History of COPD (Chronic) History of chronic respiratory failure w (Chronic) COPD (chronic obstructive pulmonary disease) (Chronic) Type 2 diabetes mellitus (Chronic) Arthritis (Chronic) Chronic interstitial lung disease (Chronic) Paroxysmal atrial fibrillation (Chronic) COPD exacerbation (Chronic) Hospital Course and Treatment Imaging Results: Clinical Impression(s) from Imaging Studies Chest X-Ray 05/10/19 09:28 IMPRESSION: Stable examination. Chronic interstitial fibrosis. 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 Electronically Signed: Portre Vallecillo, at 10:17 EST , Service support , Operations: None Summary of Care Provided: The patient is a 64 year old F presents with shortness of breath. [] 1. AECOPD Patient overall improved. Patient will be on a prednisone taper. CXR reviewed and looks more like pulmonary fibrosis (though interstitial lung disease is on her PMHx). Patient has had CTs previously, so will no perform one at this time, unless her condition deteriorates. Wean steroids reviewed records from Dr. Freeman's office: Severe COPD and interstial lung disease due to rheumatoid arthritis Reviewed CXRs which show chronic pulmonary fibrosis pattern Reviewed with patient about Dr. Freeman's notes and that the patient has interstitial lung disease as well as COPD. And the combination is going to make her very easily going to shortness of breath. At her baseline, patient has shortness of breath by just going to the bathroom. Patient instructed to notify someone or come to the emergency room if she is getting more short of breath as I could be a sign of either an exacerbation of her COPD or interstitial lung disease or another process. 2. Bilateral mastoiditis OM diagnosed on admission, but TMs not visualized CT confirms bilateral mastoiditis. Discussed with Dr. Murphy on the who recommended fluoroquinolone and to follow-up in the office for possible surgery. Will be on levofloxacin for 2 weeks. 3. Lactic acidosis met 2/4 SIRS criteria with tachycardia and tachypnea. However, this may have been due respiratory distress Patient Problems: Active and Suspected Problems Right otitis media (Acute) Acute respiratory failure with hypoxia (Acute) - Physical Exam Vitals/I&O's: Vital Signs Temp Pulse Resp BP Pulse Ox 36.6 C 90 16 127/70 H 98 05/12/19 08:20 05/12/19 08:20 05/12/19 08:20 05/12/19 08:20 05/12/19 08:20 Oxygen Flow Rate (L/min) 3 Oxygen Delivery Method Nasal Cannula Weight: 81.4 kg Body Mass Index (BMI) 30.8 Intake and Output for Last 24 Hours 05/10/19 05/11/19 05/12/19 23:59 23:59 23:59 Intake Total 1555 / 1855 2598.75 / 2848.75 450 / 450 Output Total 350 / 350 800 / 1200 400 / 400 Balance 1205 / 1505 1798.75 / 1648.75 50 / 50 General: Alert, No apparent distress HEENT: Atraumatic, Normocephalic Oral: Moist Mucosa, No Gingival or Mucosal Lesions/ Ulcerations Neck: No Nodes, Trachea Midline Lungs: Normal air movement, - - bilateral crackles Cardiovascular: Regular rate, Regular Rhythm, Normal S1, Normal S2, No murmurs Abdomen: Bowel Sounds Present, Soft, Non Tender, Non-Distended Microbiology Past 72 Hours 05/10/19 09:20 Blood Culture (Wb) - Left Forearm Blood Culture - Preliminary No growth in 48 hours. 05/10/19 15:36 Mucosa - Nasopharyngeal Respiratory Panel (PCR) - Final 05/10/19 10:16 Mucosa - Nose Influenza Types A,B Direct FA (MELITA) - Final Laboratory Results 05/11/19 12:08: POC Glucose 179 H 05/11/19 16:20: POC Glucose 122 H 05/11/19 22:50: POC Glucose 121 H 05/12/19 06:50: POC Glucose 162 H Current Medications Acetaminophen (Tylenol) 650 mg PO Q6H PRN PRN PRN Reason: Pain Score 1-3/Temp > 100.7 F Last Admin: 05/11/19 23:03 Dose: 650 mg Documented by: Albuterol Sulfate (Ventolin Aerosols) 2.5 mg INHALATION Q2H PRN PRN PRN Reason: SHORTNESS OF BREATH Albuterol/Ipratropium (Duoneb) 3 ml INHALATION Q4HWA.RT [facility] Last Admin: 05/12/19 07:40 Dose: 3 ml Documented by: Fluticasone Propionate (Flonase Nasal [place]) 1 spray NASAL DAILY [facility] Last Admin: 05/12/19 08:07 Dose: 1 spray Documented by: Gabapentin (Neurontin) 100 mg PO DAILY@0800 [facility] Last Admin: 05/12/19 08:07 Dose: 100 mg Documented by: Gabapentin (Neurontin) 200 mg PO QHS [facility] Last Admin: 05/11/19 22:59 Dose: 200 mg Documented by: Glucagon () 1 mg IM .X1 PRN PRN Reason: Hypoglycemia Dextrose (Dextrose 10%-Water) 250 mls @ 999 mls/hr IV .Q16M PRN; Protocol PRN Reason: HYPOGLYCEMIA Insulin Human Lispro (Humalog Kwikpen (Bkc)) 0 unit SC ACHS [facility]; Protocol Last Admin: 05/12/19 06:51 Dose: 2 units Documented by: Leflunomide (Leflunomide) 10 mg PO DAILY [facility] Last Admin: 05/12/19 08:07 Dose: 10 mg Documented by: Levofloxacin (Levaquin Tablet) 750 mg PO DAILY@0600 [facility] Last Admin: 05/12/19 06:48 Dose: 750 mg Documented by: Methylprednisolone (Solu-Medrol) 40 mg IV Q12 [facility] Last Admin: 05/11/19 23:00 Dose: 40 mg Documented by: Metoprolol Succinate (Toprol Xl (Beta Maciel)) 50 mg PO DAILY [facility] Last Admin: 05/12/19 08:08 Dose: 50 mg Documented by: Ondansetron HCl (Zofran) 4 mg IV Q8H PRN PRN PRN Reason: NAUSEA/VOMITING Rivaroxaban (Xarelto) 20 mg PO DAILY@1700 [facility] Last Admin: 05/11/19 16:30 Dose: 20 mg Documented by: Sodium Chloride () 10 - 40 ml IV UD PRN PRN Reason: SALINE FLUSH Last Admin: 05/11/19 23:00 Dose: 10 ml Documented by: Discharge Diet: No Restrictions Discharge Activity: Return to Normal Activity Call your doctor if you observe: Fever of 101 or Higher, - - increasing shortness of breath Home Medications: Medications to take at Discharge Acetaminophen [Tylenol Extra Strength] 1,000 mg PO DAILY PRN PRN 01/30/19 Leflunomide 10 mg PO DAILY 01/30/19 Metoprolol Succinate 50 mg PO DAILY 01/30/19 Rivaroxaban [Xarelto] 20 mg PO DAILY 01/30/19 metFORMIN (XR) [Glucophage Xr] 500 mg PO DAILY 01/30/19 Fluticasone Propionate 1 spray NASAL DAILY 05/10/19 Gabapentin [Neurontin] 100 mg PO DAILY 05/10/19 Gabapentin [Neurontin] 200 mg PO QHS 05/10/19 Ipratropium/Albuterol Sulfate [Duoneb] 3 ml INHALATION Q6H.RT 05/10/19 Prednisone 1 tab PO DAILY #30 tab 05/12/19 levoFLOXacin tablet [Levaquin tablet] 750 mg PO DAILY@0600 #12 tab 05/12/19 Following Prescrptions Were Given to Patient: levoFLOXacin tablet [Levaquin tablet] 750 mg PO DAILY@0600 #12 tab Transmission Status: Pending to [id number] Prednisone 1 tab PO DAILY #30 tab Transmission Status: Pending to [id number] Primary Care Physician: Alexa Becerra PA [Primary Care Provider] - Within 2 Weeks Please Follow Up With: Devante Freeman MD When: 1-2 months Please Follow Up With: Joe Murphy MD - ENT follow up for mastoiditis When: 1-2 weeks Disposition: Home Minutes spent on discharge:: 32 Patient Condition:: Fair Medical Necessity - Tobacco Use Smoking Status: Former smoker Tobacco Use: Cigarettes Meaningful Use Info Meaningful Use Diagnoses (Choose all that apply): None applicable Code Visit Inpatient E&M: 22923 Disch Hosp
[2019-05-12 11:00] VITALS: PULSE 76; RESP 16
--- NOTE | 2019-05-15 13:30 | CASEMGMT ---
RN SALLY DC PHONE CALL DC DATE: 05.12.2019 DC Disposition: Home Diagnosis on Discharge: COPD; otitis media LACE/STRATA:02/19 Intro role of CM to patient via phone. Pt states no questions re: instructions, prescriptions or f/u. States she is feeling improved. No care improvement suggestions given. Sean CABRERAN RN ACM
== END 2019-05-12 11:09 | disposition home or self-care (01) | DRG 191 ==
LOC: ED 13:11 → MS3 13:40
PROVIDERS: Admitting Provider Family Medicine; Emergency Provider Emergency Medicine; PCP Physician Assistant
DX: J44.1 Chronic obstructive pulmonary disease with (acute) exacerbation (principal); H70.003 Acute mastoiditis without complications, bilateral; I48.20 Chronic atrial fibrillation, unspecified; E87.2 Acidosis; J96.11 Chronic respiratory failure with hypoxia; I48.0 Paroxysmal atrial fibrillation; M19.90 Unspecified osteoarthritis, unspecified site; J84.10 Pulmonary fibrosis, unspecified; H66.91 Otitis media, unspecified, right ear; M06.9 Rheumatoid arthritis, unspecified; E11.40 Type 2 diabetes mellitus with diabetic neuropathy, unspecified; Z99.81 Dependence on supplemental oxygen; Z79.01 Long term (current) use of anticoagulants; Z82.5 Family history of asthma and other chronic lower respiratory diseases; Z87.891 Personal history of nicotine dependence
CPT/HCPCS: 36415; 70480; 71045; 80048; 80053; 81001; 82962; 83605; 84484; 85025; 85610; 85730; 87040; 87086; 87088; 87633; 87804; 93005; 94640; 99285; J7030; J7050; A4216; J2405

== ENCOUNTER 2020-02-02 11:42 | Inpatient (IN) | payer MEDICARE, SELFPAY ==
[2019-05-10 14:34] VITALS: BMI 30.8
[2020-02-02] VITALS (16 sets, daily range): BP systolic 114–135; BP diastolic 67–98; PULSE 103–129; RESP 20–38; TEMP 36.4–36.8; O2SAT 96–100; BMI 32.9; BMI 31.7
--- NOTE | 2020-02-02 12:11 | RAD_ITS ---
STUDY: X-RAY CHEST REASON FOR EXAM: Female, 64 years old. COUGH, SOB -- H/O COPD TECHNIQUE: Single AP portable view of the chest. COMPARISON: Comparison is made with prior study dated 05/10/2019. FINDINGS: EKG electrodes are seen. Stable increased interstitial markings worse at the lung bases with areas of confluence in keeping with a pulmonary scarring. There has been no change. There is no demonstrated pleural abnormality. Normal size heart. Normal mediastinum and jessica. Normal visualized pulmonary arteries. Normal visualized aortic arch and descending thoracic aorta. Normal visualized thoracic spine. Normal visualized ribs, clavicles, and shoulders. There is no demonstrated abnormality of the visualized soft tissue structures of the upper abdomen. RAD/Chest 1 View (Portable) IMPRESSION: Findings in keeping with pulmonary fibrosis. There has been no change. Electronically Signed: Porter Vallecillo, at 13:44 EDT , Service support ,
--- NOTE | 2020-02-02 12:17 | ED.VISSUMM ---
- ER Visit Summary Date of Service: 02/02/20 Chief Complaint: Shortness of breath History of Present Illness: The patient is a 64 F presenting with shortness of breath. Patient states this started 2 days ago. She has had shortness of breath worsened with exertion and productive cough. She denies fever, states she has mild chills. She has chest pain only when coughing. She has nausea and diarrhea. She states the diarrhea has been ongoing for 3 days but is actually improved today. Denies blood in her stool. Denies lightheadedness or syncope. Denies known exposure to COVID. She called her primary care physician today and was advised to come to the ED for evaluation. Physical Examination: Vitals are stable. Patient is afebrile. Alert no acute distress. Pulse ox 98% on 3 L nasal cannula HEENT exam is unremarkable. Neck is supple. Lungs are wheezing bilaterally. Heart is regular and tachycardic Abdomen is soft nontender nondistended. Extremities are unremarkable. Skin is warm and dry. No focal neurologic deficit. Remainder of exam is unremarkable. Emergency Department Course and Treatment: EKG is sinus tachycardia rate of 115 with no acute ischemic changes. Patient was given albuterol, Atrovent aerosols. CBC shows white count 14.6, hemoglobin 10.5. Chemistries show BUN 20. Troponin is negative. Chest x-ray shows Findings in keeping with pulmonary fibrosis. There has been no change. Patient did not take her morning metoprolol and she was given a dose of metoprolol. Her heart rate remains in the 120s. She denies chest pain. She has some improvement after aerosols but remains tachypneic. COVID negative. She does not feel well enough to go home. Discussed with the hospitalist for observation. Disposition: Observation Impression: COPD exacerbation, tachycardia This note was generated with [employer] dictation software. It may contain incorrect words, spelling, and punctuation that were not noted in review of the chart prior to signing ED Disposition - Plan for ED Patient: Referrals: Alexa Becerra PA [Primary Care Provider] -
[2020-02-02] MEDS: Ipratropium/Albuterol Sulfate 3 ML AMPUL.NEB INHALATION ×3 (12:29→23:16)
[2020-02-02 12:41] LABS: Absolute Lymphocyte Count 2.42 X10^3/uL (0.83-4.51); Absolute Neutrophil Count 10.6 X10^3/uL (2.0-7.7); Basophil# 0.08 X10^3/uL; Basophil% 0.5 % (0-1); Eosinophil# 0.36 X10^3/uL; Eosinophils% 2.5 % (0-5); Hematocrit 36.3 % (37-47); Hemoglobin 10.5 g/dL (12.0-15.0); Lymphocyte # 2.42 X10^3/ul (4.0); Lymphocyte % 16.6 % (19-41); Mean Corp Hgb Conc 28.9 g/dL (32-36); Mean Corpuscular Hgb 29.3 pg (27.0-32.0); Mean Corpuscular Volume 101.4 fL (81-99); Mean Platelet Vol. 10.3 fl (6.2-12.0); Monocyte# 1.02 X10^3/uL; NRBC Flagged by Analyzer 0 % (0-5); Neutrophil # 10.57 X10^3/uL (2.7-7.7); Neutrophil % 72.7 % (47-70); Platelet Count 379 K/mm3 (150-450); RBC Distribution Width CV 14.3 % (11.6-14.6); Red Blood Count 3.58 M/mm3 (4.2-5.4); White Blood Count 14.6 K/mm3 (4.4-11.0)
[2020-02-02 12:55] LABS: ALB/GLOB Ratio 0.5 RATIO (0.9-2.4); AST(SGOT) 11 U/L (15-37); Alanine Aminotransfer ALT/SGPT 13 U/L (13-56); Albumin, Serum 2.7 g/dL (3.2-5.0); Alkaline Phosphatase 102 U/L (45-117); Anion Gap 5 (5-15); BUN 20 mg/dL (7-18); BUN/Creat Ratio 23.3 RATIO (10-20); Calcium,Total 8.5 mg/dL (8.5-10.1); Chloride 103 mmol/L (98-107); Creatinine, Serum 0.86 mg/dL (0.55-1.02); EST Glomerular Filtration Rate 71 mL/min (>60); Est Glom Filt Rate - Afr Amer 86 mL/min (>60); Estimated Creatinine Clearance 58.57 ml/min; Glucose 89 mg/dL (74-106); Lactic Acid 1.2 mmol/L (0.4-1.9); Potassium 3.8 mmol/L (3.5-5.1); Protein, Total 7.7 g/dL (6.4-8.2); Sodium Level 137 mmol/L (136-145)
[2020-02-02] MEDS: Albuterol 2.5 MG/3 ML VIAL.NEB. INHALATION (13:33)
[2020-02-02] MEDS: Metoprolol(XL)Succ 50 MG Tablet PO (13:58)
[2020-02-02] MEDS: Ondansetron 4 MG/2 ML Vial IV (14:35)
--- NOTE | 2020-02-02 15:05 | CPS ---
Patient was given duoneb and x1 albuterol. Afterward the wheezes went away and patient felt better. Was informed by that the other 2 albuterols were not needed. Patient still had continued high heart rate at 124.
--- NOTE | 2020-02-02 16:25 | HP.PCM_ITS ---
<Kevin Salinas PA - Last Filed: 02/02/20 16:25> Problem List (1) COPD exacerbation Status: Acute (2) COPD (chronic obstructive pulmonary disease) Status: Chronic (3) Chronic respiratory failure Status: Chronic (4) Paroxysmal atrial fibrillation Status: Chronic (5) Type 2 diabetes mellitus Status: Chronic History of Present Illness Date of Admission: 02/02/20 Chief Complaint: SOB The patient is a 64 year old F with past medical history of COPD, chronic hypoxic respiratory failure on 3 L at rest and 6 L/min with activity at baseline, type 2 diabetes, obesity, former smoker, paroxysmal atrial fibrillation who presented to the emergency room with increased shortness of breath. She has been off and on feeling unwell for the past 2 weeks. She has been progressively more short of breath particularly in the last day. She has been coughing up green mucus and having chills at home. She has been checking her temperature and has not had any fever. She does have diarrhea, denies nausea or vomiting. Denies new body aches and denies change of taste or smell. She at home has been using home oxygen and a nebulizer with minimal relief. In the emergency room she had tachycardia and leukocytosis, chest x-ray demonstrating pulmonary fibrosis. She states that she follows for her COPD but denies any knowledge of having pulmonary fibrosis or pulmonary hypertension. [] Past Medical History Past Medical History (Chronic Problems): Chronic Problems Chronic respiratory failure (Chronic) COPD (chronic obstructive pulmonary disease) (Chronic) Type 2 diabetes mellitus (Chronic) Arthritis (Chronic) Chronic interstitial lung disease (Chronic) Paroxysmal atrial fibrillation (Chronic) Allergies No Known Allergies Allergy (Verified 02/02/20 11:50) Home Medications: Ambulatory Orders Medication Instructions Recorded Acetaminophen [Tylenol Extra 1,000 mg PO DAILY PRN PRN 01/30/19 Strength] Leflunomide 10 mg PO DAILY 01/30/19 Metoprolol Succinate 50 mg PO DAILY 01/30/19 Rivaroxaban [Xarelto] 20 mg PO DAILY 01/30/19 metFORMIN (XR) [Glucophage Xr] 500 mg PO DAILY 01/30/19 Gabapentin [Neurontin] 100 mg PO DAILY 05/10/19 Gabapentin [Neurontin] 200 mg PO QHS 05/10/19 Ipratropium/Albuterol Sulfate 3 ml INHALATION Q6H.RT 05/10/19 [Duoneb] Prednisone 10 tab PO DAILY 02/02/20 Surgical History: hysterectomy Psychiatric History: No pertinent psych hx 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 Denies: Fever, Weight Change HEENT: Denies: Head Aches, Sinus Congestion, Sinus Drainage Cardiovascular: Denies: Chest Pain, Edema, Light Headedness, Palpitations Respiratory: Reports: Cough, Shortness of Breath, Shortness of breath at rest, Shortness of breath upon exertion, Sputum production, Wheezing Gastrointestinal: Reports: Diarrhea. Denies: Abdominal Pain, Nausea, Vomiting Genitourinary: Reports: Hematuria. Denies: Dysuria, Hesitancy, Urgency Musculoskeletal: Denies: Joint Pain, Joint Tenderness, Muscle pain Skin: Denies: Lesions, Rash, Wounds Neurological: Denies: Numbness, Tingling, Focal weakness Psychiatric: Denies: Anxiety, Depression, Homicidal Ideations, Suicidal Ideations Hematologic/ Lymphatic: Denies: Easy Bruising, Easy Bleeding VTE Information - Inpt Only VTE Present on Admission: No VTE Mechan Device Prophylaxis: None VTE Pharm Prophylaxis ordered?: Yes - Physical Exam Vitals/I&O's: Vital Signs Temp Pulse Resp BP Pulse Ox 97.8 F 113 H 25 H 117/98 H 96 02/02/20 16:02 02/02/20 16:02 02/02/20 16:02 02/02/20 16:02 02/02/20 16:02 Oxygen Flow Rate (L/min) 3 Oxygen Delivery Method Nasal Cannula Weight: 192 lb 0.362 oz Body Mass Index (BMI) 32.9 General: Alert, Oriented x3, Cooperative HEENT: Atraumatic, PERRLA, EOMI, Normocephalic Neck: Supple, No JVD, Negative Carotid Bruits Lungs: No rales - fine rales throughout, Diminished, Wheezes Cardiovascular: Regular rate, No murmurs Abdomen: Bowel Sounds Present, Soft, Non Tender Extremities: No edema, Capillary Refill Less than 3 Seconds Skin: No rashes, No breakdown Musculoskeletal: No Tenderness to Palpation of Joints or Extremities Neurological: Cranial nerves II-XII grossly intact Psych/Mental Status: Normal Affect, Appropriate, Alert and oriented to time, place, person, mood and affect Laboratory Results 02/02/20 12:00: WBC 14.6 H, RBC 3.58 L, Hgb 10.5 L, Hct 36.3 L, MCV 101.4 H, MCH 29.3, MCHC 28.9 L, RDW Std Deviation 53.0 H, RDW Coeff of Lainey 14.3, Plt Count 379, MPV 10.3, Immature Gran % (Auto) 0.700, Neut % (Auto) 72.7 H, Lymph % (Auto) 16.6 L, [place] % (Auto) 7.0, Eos % (Auto) 2.5, Baso % (Auto) 0.5, Absolute Neuts (auto) 10.6 H, Absolute Lymphs (auto) 2.42, Nucleated RBC % 0 02/02/20 12:00: Sodium 137, Potassium 3.8, Chloride 103, Carbon Dioxide 29.0, Anion Gap 5, BUN 20 H, Creatinine 0.86, Estim Creat Clear Calc 58.57, Est GFR (MDRD) Af Amer 86, Est GFR (MDRD) Non-Af 71, BUN/Creatinine Ratio 23.3 H, Glucose 89, Calcium 8.5, Total Bilirubin 0.40, AST 11 L, ALT 13, Alkaline Phosphatase 102, Troponin I < 0.015, Total Protein 7.7, Albumin 2.7 L, Globulin 5.0 H, Albumin/Globulin Ratio 0.5 L 02/02/20 12:00: Lactic Acid 1.2 02/02/20 12:31: COVID-19 (JONO) Not Detected Assessment/Plan All Active Problems COPD exacerbation (Acute) 1. COPD exacerbation with possible underlying acute bronchitis, with chronic hypoxic respiratory failure-patient will be placed on Levaquin, Solu-Medrol, aerosol therapy. Will obtain sputum culture, respiratory viral panel. COVID-19 test is negative. Chest x-ray demonstrates pulmonary fibrosis. She follows pulmonology with . In the past her sputum culture has demonstrated staph aureus and Serratia marcescens. She is afebrile but does have leukocytosis, persistent sinus tachycardia, tachypnea. Lactic acid is normal. Trop negative. The patient is not acutely hypoxic, she uses 3 L at rest and 6 L with activity at baseline and she is currently stable on 3 L/min oxygen at rest. 2. Type 2 diabetes with obesity-hold Metformin start sliding scale insulin. Dietitian consult. 3. Paroxysmal atrial fibrillation-patient is tachycardic but this appears to be a sinus tachycardia. Continue metoprolol and Xarelto. 3. Former smoker-quit 11 years ago but smoked since the age of 15. 4. Chronic macrocytic anemia - does not appear to be significantly below baseline, will trend. DVT prophylaxis: Xarelto This patient was seen by Kevin Salinas PA-C under the supervision of Doctor Iman. <Felicitas Valerio E - Last Filed: 02/02/20 17:07> History of Present Illness The patient is a 64 year old F [] Past Medical History Allergies No Known Allergies Allergy (Verified 02/02/20 11:50) - Physical Exam Vitals/I&O's: Vital Signs Temp Pulse Resp BP Pulse Ox 97.9 F 116 H 32 H 126/84 H 97 02/02/20 16:52 02/02/20 16:52 02/02/20 16:52 02/02/20 16:52 02/02/20 16:52 Oxygen Flow Rate (L/min) 3 Oxygen Delivery Method Nasal Cannula Weight: 192 lb 0.362 oz Body Mass Index (BMI) 32.9 Laboratory Results 02/02/20 12:00: WBC 14.6 H, RBC 3.58 L, Hgb 10.5 L, Hct 36.3 L, MCV 101.4 H, MCH 29.3, MCHC 28.9 L, RDW Std Deviation 53.0 H, RDW Coeff of Lainey 14.3, Plt Count 379, MPV 10.3, Immature Gran % (Auto) 0.700, Neut % (Auto) 72.7 H, Lymph % (Auto) 16.6 L, [place] % (Auto) 7.0, Eos % (Auto) 2.5, Baso % (Auto) 0.5, Absolute Neuts (auto) 10.6 H, Absolute Lymphs (auto) 2.42, Nucleated RBC % 0 02/02/20 12:00: Sodium 137, Potassium 3.8, Chloride 103, Carbon Dioxide 29.0, Anion Gap 5, BUN 20 H, Creatinine 0.86, Estim Creat Clear Calc 58.57, Est GFR (MDRD) Af Amer 86, Est GFR (MDRD) Non-Af 71, BUN/Creatinine Ratio 23.3 H, Gluc ose 89, Calcium 8.5, Total Bilirubin 0.40, AST 11 L, ALT 13, Alkaline Phosphatase 102, Troponin I < 0.015, Total Protein 7.7, Albumin 2.7 L, Globulin 5.0 H, Albumin/Globulin Ratio 0.5 L 02/02/20 12:00: Lactic Acid 1.2 02/02/20 12:31: COVID-19 (JONO) Not Detected Assessment/Plan Hospitalist note: I am seeing this patient in conjunction with Kevin Salinas. I independently seen and examined the patient. History and physical, laboratory data and imaging studies reviewed and I concur with above admission and treatment plan. Patient presented to the emergency room because of 2 weeks history of intermittent increasing shortness of breath, has been progressively getting worse, became even at rest, associated with productive cough with thick green sputum as well as chills and without aggravating or relieving factors. She denied any fever. She denied chest pain or palpitation. She does use oxygen at home at 3 L and sometimes up to 6 L upon activity. In the emergency department, patient was afebrile, tachycardic, blood pressure was stable, was tachypneic and pulse ox was 97% on 3 L. Routine blood work was remarkable for leukocytosis, hemoglobin 10.5 g/dL, otherwise unremarkable. LFT was unremarkable. Lactic acid was normal. Chest x-ray revealed findings consistent with lung fibrosis, no acute infiltrate or consolidation. EKG revealed sinus tachycardia, no acute skin changes. She is being admitted for acute COPD exacerbation. - Physical Exam General: Alert, Oriented x3, Cooperative, No apparent distress. HEENT: Atraumatic, PERRLA, EOMI. Neck: Supple, No JVD, Negative Carotid Bruits, Trachea Midline, Thyroid Normal. Lungs: Decreased breath sounds bilateral, bilateral coarse crackles throughout, bilateral rhonchi, short of breath, occasional wheezes. Cardiovascular: Regular rate, Regular Rhythm, Normal S1, Normal S2, PMI Normal, tachycardia. Abdomen: Bowel Sounds Present, Soft, Non Tender, Non-Distended, No Hepato- splenomegaly. Extremities: No clubbing, No cyanosis, No edema Skin: No rashes, No breakdown Neurological: Cranial nerves are intact, neuro grossly intact. Assessment and plan: #1 acute COPD exacerbation/acute exacerbation of suspected pulmonary fibrosis: Likely due to viral bronchitis. COVID-19 PCR was negative. Chest x-ray reviewed. Patient does have mild leukocytosis but she has been on steroids. Plan: Admit to PCU, cardiac monitoring, DuoNeb every 4 hours, albuterol as needed, start IV Solu-Medrol every 8 hours, IV Levaquin daily, sputum culture, respiratory panel for viruses, ABG, chest physiotherapy, incentive spirometer, repeat CBC and BMP tomorrow morning, PT OT evaluation and treatment. #2 tachycardia: At the sinus tachycardia, likely because of hypoxia and acute COPD exacerbation. EKG reviewed, troponin is negative. #3 other chronic medical problems: Stable, continue current medications as above. This note was generated with LIFT12 dictation software. It may contain incorrect words, spelling, and punctuation that were not noted in checking the note before signing. Inpatient E&M: 17628 Init Hosp L2
[2020-02-02] MEDS: levoFLOXacin IV 500 MG/100 ML BAG 100 MG IV (19:09)
[2020-02-02] MEDS: Acetaminophen 325 MG Tablet 650 MG PO (19:09)
[2020-02-02] MEDS: 0.9% Saline Lock 10 ML Syringe IV ×2 (19:10→23:40)
[2020-02-02 19:15] LABS: Bedside Glucose 93 mg/dL (70-110)
[2020-02-02] MEDS: guaiFENesin 10 ML UDC (200MG/10ML) 20 ML PO ×2 (19:29→23:39)
[2020-02-02] MEDS: Rivaroxaban 20 MG Tablet PO (19:29)
[2020-02-02 20:41] LABS: Allen Test Positive; Base Excess 0 mmol/L (-2 to +2); Bicarbonate 25.3 mmol/L (22-26); Blood Gas Specimen Type ART; O2 Delivery Device Cannula; PO2 88 mmHG (75-100); SITE L Radial; SO2 97 % (95-99); Total Carbon Dioxide 27 mmol/L; pCO2 41.2 mmHg (35-45)
[2020-02-02] MEDS: Gabapentin 100 MG Capsule 200 MG PO (21:57)
[2020-02-02 22:10] LABS: Bedside Glucose 98 mg/dL (70-110)
[2020-02-03] VITALS (12 sets, daily range): BP systolic 126–129; BP diastolic 72–93; PULSE 77–144; RESP 18–20; TEMP 36.8–37.1; O2SAT 95–97
--- NOTE | 2020-02-03 03:34 | CPS ---
pt refused 3 am aerosol
[2020-02-03 06:14] LABS: Absolute Lymphocyte Count 0.55 X10^3/uL (0.83-4.51); Basophil# 0.04 X10^3/uL; Basophil% 0.6 % (0-1); Hematocrit 33.9 % (37-47); Hemoglobin 9.8 g/dL (12.0-15.0); Lymphocyte # 0.55 X10^3/ul (4.0); Lymphocyte % 8.2 % (19-41); Mean Corp Hgb Conc 28.9 g/dL (32-36); Mean Corpuscular Hgb 29.3 pg (27.0-32.0); Mean Corpuscular Volume 101.2 fL (81-99); Mean Platelet Vol. 10.2 fl (6.2-12.0); Monocyte# 0.13 X10^3/uL; Monocyte% 1.9 % (0-10); NRBC Flagged by Analyzer 0 % (0-5); Neutrophil # 5.98 X10^3/uL (2.7-7.7); Neutrophil % 88.7 % (47-70); POSITIVE DIFFERENTIAL YES; Platelet Count 332 K/mm3 (150-450); RBC Distribution Width CV 14.1 % (11.6-14.6); RBC Distribution Width SD 52.9 fl (35.1-43.9); Red Blood Count 3.35 M/mm3 (4.2-5.4); White Blood Count 6.7 K/mm3 (4.4-11.0)
[2020-02-03 06:33] LABS: Differential Indicated SCAN CRITERIA MET
[2020-02-03] MEDS: 0.9% Saline Lock 10 ML Syringe IV ×2 (06:36→13:26)
[2020-02-03 06:42] LABS: Anion Gap 5 (5-15); BUN 19 mg/dL (7-18); BUN/Creat Ratio 25.5 RATIO (10-20); Calcium,Total 8.6 mg/dL (8.5-10.1); Chloride 102 mmol/L (98-107); Creatinine, Serum 0.74 mg/dL (0.55-1.02); EST Glomerular Filtration Rate 84 mL/min (>60); Est Glom Filt Rate - Afr Amer 101 mL/min (>60); Estimated Creatinine Clearance 68.07 ml/min; Glucose 122 mg/dL (74-106); Potassium 4.7 mmol/L (3.5-5.1); Sodium Level 135 mmol/L (136-145)
[2020-02-03 06:47] LABS: Differential Comment SCANNED; Hypochromasia 1+; Macrocytosis 1+
[2020-02-03] MEDS: Ipratropium/Albuterol Sulfate 3 ML AMPUL.NEB INHALATION ×5 (07:41→23:10)
[2020-02-03] MEDS: metFORMIN (XR) 500 MG Tablet PO (08:00)
[2020-02-03] MEDS: Metoprolol(XL)Succ 50 MG Tablet PO (09:14)
[2020-02-03] MEDS: Gabapentin 100 MG Capsule PO (09:14)
[2020-02-03] MEDS: Leflunomide 10 MG TABLET PO (09:14)
[2020-02-03] MEDS: levoFLOXacin IV 500 MG/100 ML BAG 100 MG IV (09:18)
[2020-02-03] MEDS: guaiFENesin 10 ML UDC (200MG/10ML) 20 ML PO ×3 (10:07→21:22)
[2020-02-03 10:11] LABS: Bedside Glucose 138 mg/dL (70-110)
--- NOTE | 2020-02-03 10:29 | PN_ITS ---
Patient Problems: Active and Suspected Problems COPD exacerbation (Acute) Reason for Visit: Follow-up on acute COPD exacerbation Subjective: Patient was seen and examined. She complains of wheezing. She is on 3 L of oxygen. She is short of breath with exertion. Denies any fever or chills. Her respiratory panel was negative. Objective: Physical exam: General: Alert, Oriented x3, Cooperative HEENT: Atraumatic, PERRLA, EOMI, Normocephalic Neck: Supple, No JVD, Negative Carotid Bruits Lungs: No rales - fine rales throughout, Diminished, Wheezes Cardiovascular: Regular rate, No murmurs Abdomen: Bowel Sounds Present, Soft, Non Tender Extremities: No edema, Capillary Refill Less than 3 Seconds Skin: No rashes, No breakdown Musculoskeletal: No Tenderness to Palpation of Joints or Extremities Neurological: Cranial nerves II-XII grossly intact Psych/Mental Status: Normal Affect, Appropriate, Alert and oriented to time, place, person, mood and affect Vitals/I&O's: Vital Signs Temp Pulse Resp BP Pulse Ox 98.2 F 98 20 H 122/78 H 97 02/03/20 09:11 02/03/20 10:25 02/03/20 10:25 02/03/20 09:11 02/03/20 09:11 Oxygen Flow Rate (L/min) 3 Oxygen Delivery Method Nasal Cannula Weight: 83.9 kg Body Mass Index (BMI) 31.7 Intake and Output for Last 24 Hours 02/01/20 02/02/20 02/03/20 23:59 23:59 23:59 Intake Total 309.5 / 309.5 225 / 225 Balance 309.5 / 309.5 225 / 225 Microbiology Past 72 Hours 02/02/20 12:31 Interface Orders Respiratory Panel (PCR) - Final Laboratory Results 02/02/20 12:00: WBC 14.6 H, RBC 3.58 L, Hgb 10.5 L, Hct 36.3 L, MCV 101.4 H, MCH 29.3, MCHC 28.9 L, RDW Std Deviation 53.0 H, RDW Coeff of Lainey 14.3, Plt Count 379, MPV 10.3, Immature Gran % (Auto) 0.700, Neut % (Auto) 72.7 H, Lymph % (Auto) 16.6 L, [place] % (Auto) 7.0, Eos % (Auto) 2.5, Baso % (Auto) 0.5, Absolute Neuts (auto) 10.6 H, Absolute Lymphs (auto) 2.42, Nucleated RBC % 0 02/02/20 12:00: Sodium 137, Potassium 3.8, Chloride 103, Carbon Dioxide 29.0, Anion Gap 5, BUN 20 H, Creatinine 0.86, Estim Creat Clear Calc 58.57, Est GFR (MDRD) Af Amer 86, Est GFR (MDRD) Non-Af 71, BUN/Creatinine Ratio 23.3 H, Glucose 89, Calcium 8.5, Total Bilirubin 0.40, AST 11 L, ALT 13, Alkaline Phosphatase 102, Troponin I < 0.015, Total Protein 7.7, Albumin 2.7 L, Globulin 5.0 H, Albumin/Globulin Ratio 0.5 L 02/02/20 12:00: Lactic Acid 1.2 02/02/20 12:31: COVID-19 (JONO) Not Detected 02/02/20 19:08: POC Glucose 93 02/02/20 20:36: Specimen Type ART, Sample Site L Radial, pH 7.40, Bicarbonate Actual 25.3, Total CO2 27, Base Excess 0, O2 Saturation 97, ABG pCO2 41.2, ABG pO2 88, Adán Test Positive, O2 Delivery Device Cannula, Liter Flow 3.0 02/02/20 21:52: POC Glucose 98 02/03/20 05:30: WBC 6.7, RBC 3.35 L, Hgb 9.8 L, Hct 33.9 L, MCV 101.2 H, MCH 29.3, MCHC 28.9 L, RDW Std Deviation 52.9 H, RDW Coeff of Lainey 14.1, Plt Count 332, MPV 10.2, Immature Gran % (Auto) 0.600, Neut % (Auto) 88.7 H, Lymph % (Auto) 8.2 L, [place] % (Auto) 1.9, Eos % (Auto) 0.0, Baso % (Auto) 0.6, Absolute Neuts (auto) 6.0, Absolute Lymphs (auto) 0.55 L, Nucleated RBC % 0, Differential Comment SCANNED, Hypochromasia 1+, Macrocytosis 1+ 02/03/20 05:30: Sodium 135 L, Potassium 4.7, Chloride 102, Carbon Dioxide 28.0, Anion Gap 5, BUN 19 H, Creatinine 0.74, Estim Creat Clear Calc 68.07, Est GFR (MDRD) Af Amer 101, Est GFR (MDRD) Non-Af 84, BUN/Creatinine Ratio 25.5 H, Glucose 122 H, Calcium 8.6 02/03/20 06:32: POC Glucose 138 H Current Medications Acetaminophen (Acetaminophen 325 Mg Tablet) 650 mg PO Q6H PRN PRN PRN Reason: Pain Score 1-10/Temp > 100.7 F Last Admin: 02/02/20 19:09 Dose: 650 mg Documented by: Albuterol Sulfate (Albuterol 2.5 Mg/3 Ml Vial.Neb.) 2.5 mg INHALATION Q2H PRN PRN PRN Reason: SOB/Wheezing Albuterol/Ipratropium (Ipratropium/Albuterol Sulfate 3 Ml Ampul.Neb) 3 ml INHALATION Q4H.RT ELENA Last Admin: 02/03/20 10:23 Dose: 3 ml Documented by: Gabapentin (Gabapentin 100 Mg Capsule) 100 mg PO DAILY ELENA Last Admin: 02/03/20 09:14 Dose: 100 mg Documented by: Gabapentin (Gabapentin 100 Mg Capsule) 200 mg PO QHS ELENA Last Admin: 02/02/20 21:57 Dose: 200 mg Documented by: Guaifenesin (Guaifenesin 10 Ml Udc (200mg/10ml)) 20 ml PO Q4H PRN PRN PRN Reason: COUGH Last Admin: 02/03/20 10:07 Dose: 20 ml Documented by: Levofloxacin (Levaquin Iv) 500 mg in 100 mls @ 100 mls/hr IV Q24 ELENA Stop: 02/06/20 10:59 Last Infusion: 02/03/20 10:18 Dose: Infused Documented by: Sodium Chloride () 250 mls @ 15 mls/hr IV .[id number] PRN PRN Reason: Saline Flush Last Infusion: 02/02/20 23:08 Dose: 0 mls/hr Documented by: Sodium Chloride () 250 mls @ 15 mls/hr IV .[id number] PRN PRN Reason: Additional IVPB Infusion Insulin Human Lispro (Insulin Lispro 100 Unit/Ml Insuln.Pen) 0 unit SC ACHS ELENA; Protocol Last Admin: 02/03/20 06:33 Dose: Not Given Documented by: Leflunomide (Leflunomide 10 Mg Tablet) 10 mg PO DAILY [facility] Last Admin: 02/03/20 09:14 Dose: 10 mg Documented by: Metformin HCl (Metformin (Xr) 500 Mg Tablet) 500 mg PO DAILYCM [facility] Last Admin: 02/03/20 08:00 Dose: 500 mg Documented by: Methylprednisolone (Methylprednisolone 40 Mg/Ml Vial) 40 mg IV Q8 [facility] Last Admin: 02/03/20 06:36 Dose: 40 mg Documented by: Metoprolol Succinate (Metoprolol(Xl)Succ 50 Mg Tablet) 50 mg PO DAILY [facility] Last Admin: 02/03/20 09:14 Dose: 50 mg Documented by: Ondansetron HCl (Ondansetron 4 Mg/2 Ml Vial) 4 mg IV Q8H PRN PRN PRN Reason: NAUSEA/VOMITING Rivaroxaban (Rivaroxaban 20 Mg Tablet) 20 mg PO DINNER [facility] Last Admin: 02/02/20 19:29 Dose: 20 mg Documented by: Senna/Docusate Sodium (Senna/Docusate Sodium 1 Tablet) 2 tablet PO BID PRN PRN PRN Reason: Constipation Sodium Chloride (0.9% Saline Lock 10 Ml Syringe) 10 - 40 ml IV UD PRN PRN Reason: SALINE FLUSH Last Admin: 02/03/20 06:36 Dose: 10 ml Documented by: STROKE Vital Signs/Narrative: Vital Signs Temp Pulse Resp BP Pulse Ox 02/03/20 10:25 98 20 H 02/03/20 09:14 92 02/03/20 09:11 98.2 F 92 18 122/78 H 97 02/03/20 07:39 94 20 H 97 02/03/20 06:35 93 Medical Necessity - Tobacco Use Smoking Status: Former smoker Tobacco Use: Non-smoker Assessment/Plan All Active Problems COPD exacerbation (Acute) 1. Acute COPD exacerbation in a patient with chronic hypoxic respiratory failure, on 3 L of oxygen Respiratory panel is negative, COVID-19 is negative Chest x-ray shows no acute infiltrates We will continue with breathing treatment, IV steroids, encourage use of incentive spirometer Wean off oxygen for SPO2 more than 94% 2. Paroxysmal atrial fibrillation, in normal sinus rhythm, continue metoprolol and Xarelto 3. Type II DM, on metformin, blood sugars are stable, will continue with blood glucose checks with insulin sliding scale 4. Rest of chronic medical conditions are stable 5. DVT prophylaxis, on Xarelto Inpatient E&M: 62648 Subs Hosp L2
[2020-02-03] MEDS: Insulin Lispro 100 UNIT/ML INSULN.PEN SC ×3 (11:32→21:23)
[2020-02-03 12:07] LABS: Bedside Glucose 202 mg/dL (70-110)
--- NOTE | 2020-02-03 14:51 | CM.UR ---
locomotive firer/fireman Met face to face with patient. Lying in bed. No distress noted. Wearing oxygen. Verified demographics and care providers. did state she doesn't have part B and [facility] her to get [facility] so she can get some of her medications cheaper. She is working on that. She did also note that she needs a grab bar for her shower for getting in and out of tube safer. Discussed and instructed her on grab bars, transfer benches--safer ways to get in and out of tub. Instructed where to obtain them and how to get them installed if /son cannot do it. Offered [facility] for safety eval however patient declined. PCP: Dr. Harlan Becerra Specialists: Dr. Nahum Parson, cardiology; Dr. Freeman, pulmonology; Dr. Graham, arthritis Preferred Pharmacy: [facility] Insurance: [place] Medicare Ad[place]age Prescription Benefit: yes--denies problems with affording any copays nor obtaining medication. LNOK: , Isra Living Arrangements/ADLs: Lives independently with her . Oldest son did recently move back in too. States recently moved into a new mobile home. States independent with ADLs. States helps when needed. Has 5 steps to deck and then 1 step into home. handrails on both sides of steps. Transportation: Pt or her DME: walker, shower chair, elevated toilet seat with frame. Oxygen through [facility] 3-4L continuous. Has concentrator, portable tanks, Big back up tank and nebulizer. HHC/SNF: none Patient DC goals: Home DC PLAN: Home with family support. Jesus Felix RN, CCM.
[2020-02-03] MEDS: Rivaroxaban 20 MG Tablet PO (16:32)
[2020-02-03 16:41] LABS: Bedside Glucose 173 mg/dL (70-110)
[2020-02-03] MEDS: Acetaminophen 325 MG Tablet 650 MG PO (21:22)
[2020-02-03] MEDS: Gabapentin 100 MG Capsule 200 MG PO (21:23)
[2020-02-03 22:21] LABS: Bedside Glucose 208 mg/dL (70-110)
[2020-02-04] VITALS (16 sets, daily range): BP systolic 123–136; BP diastolic 55–84; PULSE 85–143; RESP 20–32; TEMP 36.2–37.1; O2SAT 94–100
--- NOTE | 2020-02-04 03:58 | CPS ---
no aerosol treatment given at 0300
[2020-02-04] MEDS: 0.9% Saline Lock 10 ML Syringe IV ×2 (06:22→08:55)
[2020-02-04] MEDS: Insulin Lispro 100 UNIT/ML INSULN.PEN SC ×3 (06:45→21:08)
[2020-02-04 06:46] LABS: Bedside Glucose 182 mg/dL (70-110)
[2020-02-04] MEDS: Ipratropium/Albuterol Sulfate 3 ML AMPUL.NEB INHALATION ×2 (07:05→11:20)
[2020-02-04] MEDS: metFORMIN (XR) 500 MG Tablet PO (08:41)
[2020-02-04] MEDS: Leflunomide 10 MG TABLET PO (08:42)
[2020-02-04] MEDS: Metoprolol(XL)Succ 50 MG Tablet PO (08:42)
[2020-02-04] MEDS: Gabapentin 100 MG Capsule PO (08:42)
[2020-02-04] MEDS: levoFLOXacin IV 500 MG/100 ML BAG 100 MG IV (08:54)
[2020-02-04 11:35] LABS: Bedside Glucose 230 mg/dL (70-110)
--- NOTE | 2020-02-04 12:11 | EKG12_ITS ---
Test Reason : SOB Blood Pressure : / mmHG Vent. Rate : 115 BPM Atrial Rate : 115 BPM P-R Int : 124 ms QRS Dur : 066 ms QT Int : 308 ms P-R-T Axes : 062 001 044 degrees QTc Int : 426 ms Sinus tachycardia Otherwise normal ECG Confirmed by MINDA NGUYEN, LAY ([id number]), supervising editor news reel MIKAL MCDOWELL ([id number]) on 02/16/2020 9:45:06 A M Referred By: JOSE LUIS Confirmed By:BABATUNDE PERLA MD
--- NOTE | 2020-02-04 12:25 | EKG12_ITS ---
Test Reason : Blood Pressure : / mmHG Vent. Rate : 110 BPM Atrial Rate : 110 BPM P-R Int : 128 ms QRS Dur : 068 ms QT Int : 314 ms P-R-T Axes : 056 003 038 degrees QTc Int : 424 ms Sinus tachycardia with PAC's Otherwise normal ECG When compared with ECG of 02-FEB-2020 11:59, MANUAL COMPARISON REQUIRED, DATA IS UNCONFIRMED Confirmed by MINDA NGUYEN, ALY ([id number]), order editor BENJIE MCARTHUR ([id number]) on 02/16/2020 12:46:41 PM Referred By: FRANCIS Confirmed By:BABATUNDE PERLA MD
[2020-02-04] MEDS: Metoprolol(XL)Succ 25 MG Tablet PO (13:25)
[2020-02-04] MEDS: 0.9% Normal Saline 1,000 ML 75 ML IV (13:25)
--- NOTE | 2020-02-04 14:17 | PN_ITS ---
Patient Problems: Active and Suspected Problems COPD exacerbation (Acute) Reason for Visit: Follow-up on acute COPD exacerbation Subjective: Patient was seen and examined. She still has wheezes remains very short of breath. She is also tachycardic. EKG shows normal sinus rhythm. Objective: Physical exam: General: Alert, Oriented x3, Cooperative HEENT: Atraumatic, PERRLA, EOMI, Normocephalic Neck: Supple, No JVD, Negative Carotid Bruits Lungs: No rales - fine rales throughout, Diminished, Wheezes Cardiovascular: Regular rate, No murmurs Abdomen: Bowel Sounds Present, Soft, Non Tender Extremities: No edema, Capillary Refill Less than 3 Seconds Skin: No rashes, No breakdown Musculoskeletal: No Tenderness to Palpation of Joints or Extremities Neurological: Cranial nerves II-XII grossly intact Psych/Mental Status: Normal Affect, Appropriate, Alert and oriented to time, place, person, mood and affect Vitals/I&O's: Vital Signs Temp Pulse Resp BP Pulse Ox 97.2 F L 140 H 32 H 123/64 H 100 02/04/20 09:04 02/04/20 13:25 02/04/20 11:20 02/04/20 09:04 02/04/20 09:04 Oxygen Flow Rate (L/min) 2 Oxygen Delivery Method Nasal Cannula Weight: 83.9 kg Body Mass Index (BMI) 31.7 Intake and Output for Last 24 Hours 02/02/20 02/03/20 02/04/20 23:59 23:59 23:59 Intake Total 309.5 / 309.5 1065 / 1065 820 / 820 Balance 309.5 / 309.5 1065 / 1065 820 / 820 Microbiology Past 72 Hours 02/02/20 23:00 Sputum, Expectorated/Coughed Gram Stain - Final 02/02/20 23:00 Sputum, Expectorated/Coughed Respiratory Culture - Final Streptococcus group A 02/02/20 12:31 Interface Orders Respiratory Panel (PCR) - Final Laboratory Results 02/03/20 16:29: POC Glucose 173 H 02/03/20 21:21: POC Glucose 208 H 02/04/20 06:37: POC Glucose 182 H 02/04/20 11:08: POC Glucose 230 H Current Medications Acetaminophen (Acetaminophen 325 Mg Tablet) 650 mg PO Q6H PRN PRN PRN Reason: Pain Score 1-10/Temp > 100.7 F Last Admin: 02/03/20 21:22 Dose: 650 mg Documented by: Gabapentin (Gabapentin 100 Mg Capsule) 100 mg PO DAILY [facility] Last Admin: 02/04/20 08:42 Dose: 100 mg Documented by: Gabapentin (Gabapentin 100 Mg Capsule) 200 mg PO QHS [facility] Last Admin: 02/03/20 21:23 Dose: 200 mg Documented by: Guaifenesin (Guaifenesin 10 Ml Udc (200mg/10ml)) 20 ml PO Q4H PRN PRN PRN Reason: COUGH Last Admin: 02/03/20 21:22 Dose: 20 ml Documented by: Levofloxacin (Levaquin Iv) 500 mg in 100 mls @ 100 mls/hr IV Q24 [facility] Stop: 02/06/20 10:59 Last Infusion: 02/04/20 10:06 Dose: Infused Documented by: Sodium Chloride () 250 mls @ 15 mls/hr IV .[id number] PRN PRN Reason: Saline Flush Last Infusion: 02/02/20 23:08 Dose: 0 mls/hr Documented by: Sodium Chloride () 250 mls @ 15 mls/hr IV .[id number] PRN PRN Reason: Additional IVPB Infusion Sodium Chloride () 1,000 mls @ 75 mls/hr IV .[id number] [facility] Stop: 02/05/20 01:59 Last Admin: 02/04/20 13:25 Dose: 75 mls/hr Documented by: Insulin Human Lispro (Insulin Lispro 100 Unit/Ml Insuln.Pen) 0 unit SC ACHS [facility]; Protocol Last Admin: 02/04/20 11:09 Dose: 2 unit Documented by: Ipratropium [place] (Ipratropium 0.5 Mg/2.5 Ml Solution) 0.5 mg INHALATION Q4H.RT [facility] Leflunomide (Leflunomide 10 Mg Tablet) 10 mg PO DAILY [facility] Last Admin: 02/04/20 08:42 Dose: 10 mg Documented by: Metformin HCl (Metformin (Xr) 500 Mg Tablet) 500 mg PO DAILYCM [facility] Last Admin: 02/04/20 08:41 Dose: 500 mg Documented by: Methylprednisolone (Methylprednisolone 40 Mg/Ml Vial) 40 mg IV Q8 [facility] Last Admin: 02/04/20 13:25 Dose: 40 mg Documented by: Metoprolol Succinate (Metoprolol(Xl)Succ 25 Mg Tablet) 75 mg PO DAILY [facility] Ondansetron HCl (Ondansetron 4 Mg/2 Ml Vial) 4 mg IV Q8H PRN PRN PRN Reason: NAUSEA/VOMITING Rivaroxaban (Rivaroxaban 20 Mg Tablet) 20 mg PO DINNER [facility] Last Admin: 02/03/20 16:32 Dose: 20 mg Documented by: Senna/Docusate Sodium (Senna/Docusate Sodium 1 Tablet) 2 tablet PO BID PRN PRN PRN Reason: Constipation Sodium Chloride (0.9% Saline Lock 10 Ml Syringe) 10 - 40 ml IV UD PRN PRN Reason: SALINE FLUSH Last Admin: 02/04/20 08:55 Dose: 10 ml Documented by: STROKE Vital Signs/Narrative: Vital Signs Pulse Resp 02/04/20 13:25 140 H 02/04/20 11:20 129 H 32 H Medical Necessity - Tobacco Use Smoking Status: Former smoker Tobacco Use: Non-smoker Assessment/Plan All Active Problems COPD exacerbation (Acute) 1. Acute COPD exacerbation in a patient with chronic hypoxic respiratory failure, on 3 L of oxygen Respiratory panel is negative, COVID-19 is negative Chest x-ray shows no acute infiltrates We will continue with breathing treatment, IV steroids, encourage use of incentive spirometer Wean off oxygen for SPO2 more than 94% 2. Paroxysmal atrial fibrillation, in normal sinus rhythm, Metoprolol has been increased to 75 mg daily, continue on Xarelto 3. Type II DM, on metformin, blood sugars are stable, will continue with blood glucose checks with insulin sliding scale 4. Rest of chronic medical conditions are stable 5. DVT prophylaxis, on Xarelto Inpatient E&M: [id number] [facility] Hosp L2
[2020-02-04] MEDS: Ipratropium 0.5 MG/2.5 ML SOLUTION INHALATION ×2 (15:28→19:20)
[2020-02-04] MEDS: Rivaroxaban 20 MG Tablet PO (16:05)
[2020-02-04 16:45] LABS: Bedside Glucose 140 mg/dL (70-110)
[2020-02-04] MEDS: guaiFENesin 10 ML UDC (200MG/10ML) 20 ML PO ×2 (17:40→22:00)
[2020-02-04] MEDS: Gabapentin 100 MG Capsule 200 MG PO (21:09)
[2020-02-04] MEDS: Acetaminophen 325 MG Tablet 650 MG PO (21:11)
[2020-02-04 22:15] LABS: Bedside Glucose 154 mg/dL (70-110)
[2020-02-04] MEDS: Calcium Carbonate 500 MG Tablet 1000 MG PO (23:27)
[2020-02-05] VITALS (13 sets, daily range): BP systolic 108–150; BP diastolic 66–86; PULSE 69–90; RESP 16–20; TEMP 35.6–36.9; O2SAT 85–98
--- NOTE | 2020-02-05 01:40 | CPS ---
No aerosol treatment given , RT was called to nursery at 2330.
[2020-02-05] MEDS: guaiFENesin 10 ML UDC (200MG/10ML) 20 ML PO ×2 (04:29→10:45)
[2020-02-05 05:32] LABS: Absolute Neutrophil Count 8.4 X10^3/uL (2.0-7.7); Basophil# 0.01 X10^3/uL; Basophil% 0.1 % (0-1); Hematocrit 31.9 % (37-47); Hemoglobin 9.2 g/dL (12.0-15.0); Lymphocyte % 5.3 % (19-41); Mean Corp Hgb Conc 28.8 g/dL (32-36); Mean Corpuscular Hgb 29.3 pg (27.0-32.0); Mean Corpuscular Volume 101.6 fL (81-99); Mean Platelet Vol. 10.2 fl (6.2-12.0); Monocyte# 0.34 X10^3/uL; Monocyte% 3.6 % (0-10); NRBC Flagged by Analyzer 0 % (0-5); Neutrophil # 8.43 X10^3/uL (2.7-7.7); POSITIVE DIFFERENTIAL YES; Platelet Count 325 K/mm3 (150-450); RBC Distribution Width CV 14.4 % (11.6-14.6); Red Blood Count 3.14 M/mm3 (4.2-5.4); White Blood Count 9.4 K/mm3 (4.4-11.0)
[2020-02-05] MEDS: 0.9% Saline Lock 10 ML Syringe IV ×4 (05:55→17:59)
[2020-02-05 05:58] LABS: Differential Indicated SCAN CRITERIA MET
[2020-02-05 06:00] LABS: ALB/GLOB Ratio 0.6 RATIO (0.9-2.4); AST(SGOT) 9 U/L (15-37); Alanine Aminotransfer ALT/SGPT 13 U/L (13-56); Albumin, Serum 2.4 g/dL (3.2-5.0); Alkaline Phosphatase 81 U/L (45-117); Anion Gap 5 (5-15); BUN 23 mg/dL (7-18); BUN/Creat Ratio 25.4 RATIO (10-20); Calcium,Total 8.7 mg/dL (8.5-10.1); Chloride 107 mmol/L (98-107); EST Glomerular Filtration Rate 67 mL/min (>60); Est Glom Filt Rate - Afr Amer 81 mL/min (>60); Estimated Creatinine Clearance 55.97 ml/min; Glucose 152 mg/dL (74-106); Potassium 4.3 mmol/L (3.5-5.1); Protein, Total 6.4 g/dL (6.4-8.2); Sodium Level 140 mmol/L (136-145)
[2020-02-05 06:36] LABS: Differential Comment SCANNED
[2020-02-05] MEDS: Ipratropium 0.5 MG/2.5 ML SOLUTION INHALATION ×5 (06:58→22:54)
[2020-02-05 07:05] LABS: Bedside Glucose 144 mg/dL (70-110)
[2020-02-05] MEDS: Leflunomide 10 MG TABLET PO (08:37)
[2020-02-05] MEDS: Calcium Carbonate 500 MG Tablet 1000 MG PO ×2 (08:37→21:58)
[2020-02-05] MEDS: metFORMIN (XR) 500 MG Tablet PO (08:38)
[2020-02-05] MEDS: Gabapentin 100 MG Capsule PO (08:38)
[2020-02-05] MEDS: Metoprolol(XL)Succ 25 MG Tablet 75 MG PO (08:41)
[2020-02-05] MEDS: levoFLOXacin IV 500 MG/100 ML BAG 100 MG IV (09:55)
[2020-02-05] MEDS: Insulin Lispro 100 UNIT/ML INSULN.PEN SC (10:49)
[2020-02-05 11:11] LABS: Bedside Glucose 153 mg/dL (70-110)
--- NOTE | 2020-02-05 13:01 | RAD_ITS ---
STUDY: X-RAY CHEST REASON FOR EXAM: Female, 64 years old. CRACKLES IN LUNGS, COPD, TACHYCARDIA TECHNIQUE: Single frontal view of the chest. COMPARISON: 02/02/2020 FINDINGS: Interstitial edema improved. There is no demonstrated pleural abnormality. Normal size heart. Normal mediastinum and jessica. Normal visualized pulmonary arteries. Normal visualized aortic arch and descending thoracic aorta. Normal visualized thoracic spine. Normal visualized ribs, clavicles, and shoulders. There is no demonstrated abnormality of the visualized soft tissue structures of the upper abdomen. RAD/Chest 1 View (Portable) IMPRESSION: Improved interstitial edema with or without underlying interstitial fibrosis Electronically Signed: Leonard Payton MD at 20:04 EDT , Service support ,
--- NOTE | 2020-02-05 15:08 | PN_ITS ---
Patient Problems: Active and Suspected Problems COPD exacerbation (Acute) Reason for Visit: Mood exacerbation. Objective: Patient had severe cough about in the morning and is short of breath. Patient still has significant chest tightness. Shortness of breath on mild exertion. Physical exam General: Alert, Oriented x3, Cooperative HEENT: Atraumatic, PERRLA, EOMI, Normocephalic Oral: No Gingival or Mucosal Lesions/ Ulcerations Neck: Supple, No JVD, Negative Carotid Bruits Lungs: Air entry severely diminished in bilateral lung bases. Bilateral diffuse wheezing and rhonchi. Dyspnea on exertion Cardiovascular: Regular rate, Regular Rhythm, Normal S1, Normal S2, No murmurs Abdomen: Bowel Sounds Present, Soft, Non Tender, Non-Distended. : No renal angle tenderness. No suprapubic tenderness. Extremities: No edema, Capillary Refill Less than 3 Seconds Skin: No rashes, No breakdown Musculoskeletal: No Tenderness to Palpation of Joints or Extremities Neurological: Cranial nerves II-XII grossly intact, Deep Tendon Reflexes 2+/4 and Symmetrical, Neuro grossly intact Psych/Mental Status: Normal Affect, Appropriate. Vitals/I&O's: Vital Signs Temp Pulse Resp BP Pulse Ox 97.8 F 85 20 H 124/64 H 97 02/05/20 14:36 02/05/20 14:36 02/05/20 14:36 02/05/20 14:36 02/05/20 14:36 Oxygen Flow Rate (L/min) [ 3 AMBULATION with Oxygen] Oxygen Flow Rate (L/min) 3 Oxygen Delivery Method Nasal Cannula Weight: 184 lb 15.485 oz Body Mass Index (BMI) 31.7 Intake and Output for Last 24 Hours 02/03/20 02/04/20 02/05/20 23:59 23:59 23:59 Intake Total 1065 / 1065 2161.25 / 2281.25 820 / 820 Balance 1065 / 1065 2161.25 / 2281.25 820 / 820 Microbiology Past 72 Hours 02/02/20 23:00 Sputum, Expectorated/Coughed Gram Stain - Final 02/02/20 23:00 Sputum, Expectorated/Coughed Respiratory Culture - Final Streptococcus group A 02/02/20 12:31 Interface Orders Respiratory Panel (PCR) - Final Laboratory Results 02/04/20 16:03: POC Glucose 140 H 02/04/20 21:06: POC Glucose 154 H 02/05/20 05:08: WBC 9.4, RBC 3.14 L, Hgb 9.2 L, Hct 31.9 L, MCV 101.6 H, MCH 29.3, MCHC 28.8 L, RDW Std Deviation 53.0 H, RDW Coeff of Lainey 14.4, Plt Count 325, MPV 10.2, Immature Gran % (Auto) 1.000 H, Neut % (Auto) 90.0 H, Lymph % (Auto) 5.3 L, Allen % (Auto) 3.6, Eos % (Auto) 0.0, Baso % (Auto) 0.1, Absolute Neuts (auto) 8.4 H, Absolute Lymphs (auto) 0.50 L, Nucleated RBC % 0, Differential Comment SCANNED 02/05/20 05:18: Sodium 140, Potassium 4.3, Chloride 107, Carbon Dioxide 28.0, Anion Gap 5, BUN 23 H, Creatinine 0.90, Estim Creat Clear Calc 55.97, Est GFR (MDRD) Af Amer 81, Est GFR (MDRD) Non-Af 67, BUN/Creatinine Ratio 25.4 H, Glucose 152 H, Calcium 8.7, Total Bilirubin 0.30, AST 9 L, ALT 13, Alkaline Phosphatase 81, Total Protein 6.4, Albumin 2.4 L, Globulin 4.0, Albumin/Globulin Ratio 0.6 L 02/05/20 07:02: POC Glucose 144 H 02/05/20 10:48: POC Glucose 153 H Current Medications Acetaminophen (Acetaminophen 325 Mg Tablet) 650 mg PO Q6H PRN PRN PRN Reason: Pain Score 1-10/Temp > 100.7 F Last Admin: 02/04/20 21:11 Dose: 650 mg Documented by: Calcium Carbonate (Calcium Carbonate 500 Mg Tablet) 1,000 mg PO Q6H PRN PRN PRN Reason: HEARTBURN Last Admin: 02/05/20 08:37 Dose: 1,000 mg Documented by: Gabapentin (Gabapentin 100 Mg Capsule) [address] [facility] Last Admin: 02/05/20 08:38 Dose: 100 mg Documented by: Gabapentin (Gabapentin 100 Mg Capsule) [address] [facility] Last Admin: 02/04/20 21:09 Dose: 200 mg Documented by: Guaifenesin (Guaifenesin 1,200 Mg Tablet) 1,[address] [facility] Levofloxacin (Levaquin Iv) 500 mg in 100 mls @ 100 mls/hr IV Q24 [facility] Stop: 02/06/20 10:59 Last Infusion: 02/05/20 10:55 Dose: Infused Documented by: Sodium Chloride () 250 mls @ 15 mls/hr IV .[id number] PRN PRN Reason: Saline Flush Last Infusion: 02/05/20 11:33 Dose: Infused Documented by: Sodium Chloride () 250 mls @ 15 mls/hr IV .[id number] PRN PRN Reason: Additional IVPB Infusion Insulin Human Lispro (Insulin Lispro 100 Unit/Ml Insuln.Pen) [address] [facility]; Protocol Last Admin: 02/05/20 10:49 Dose: 1 unit Documented by: Ipratropium [place] (Ipratropium 0.5 Mg/2.5 Ml Solution) 0.[address] [facility] Last Admin: 02/05/20 14:32 Dose: 0.5 mg Documented by: Leflunomide (Leflunomide 10 Mg Tablet) [address] [facility] Last Admin: 02/05/20 08:37 Dose: 10 mg Documented by: Metformin HCl ([facility] (Xr) 500 Mg Tablet) [facility] Last Admin: 02/05/20 08:38 Dose: 500 mg Documented by: Methylprednisolone (Methylprednisolone 40 Mg/Ml Vial) [address] [facility] Metoprolol Succinate (Metoprolol(Xl)Succ 25 Mg Tablet) [address] [facility] Last Admin: 02/05/20 08:41 Dose: 75 mg Documented by: Ondansetron HCl (Ondansetron 4 Mg/2 Ml Vial) 4 mg IV Q8H PRN PRN PRN Reason: NAUSEA/VOMITING Rivaroxaban (Rivaroxaban 20 Mg Tablet) [address] [facility] Last Admin: 02/04/20 16:05 Dose: 20 mg Documented by: Senna/Docusate Sodium (Senna/Docusate Sodium 1 Tablet) 2 tablet PO BID PRN PRN PRN Reason: Constipation Sodium Chloride (0.9% Saline Lock 10 Ml Syringe) 10 - 40 ml IV UD PRN PRN Reason: SALINE FLUSH Last Admin: 02/05/20 13:03 Dose: 10 ml Documented by: STROKE Vital Signs/Narrative: Vital Signs Temp Pulse Resp BP Pulse Ox 02/05/20 14:36 97.8 F 85 20 H 124/64 H 97 02/05/20 14:32 96 16 Medical Necessity - Tobacco Use Smoking Status: Former smoker Tobacco Use: Non-smoker Assessment/Plan All Active Problems COPD exacerbation (Acute) 1. Acute COPD exacerbation in a patient with chronic hypoxic respiratory failure, on 3 L of oxygen Respiratory panel is negative, COVID-19 is negative. Chest x-ray shows no acute infiltrates. IV Solu-Medrol increased to 40 mg every 6 hourly. Incentive spirometry Pap and continue bronchodilator. Wean off oxygen to keep pulse ox 90%. 2. Paroxysmal atrial fibrillation, in normal sinus rhythm, Metoprolol succinate 75 mg daily, continue on Xarelto 3. Type II DM, on metformin, blood sugars are stable, will continue with blood glucose checks with insulin sliding scale 4. Patient has diffuse degenerative disease, chronic interstitial lung disease: Stable. 5. DVT prophylaxis, on Xarelto Inpatient E&M: [id number] Subs Hosp L2
[2020-02-05] MEDS: guaiFENesin 1,200 MG Tablet 1200 MG PO ×2 (16:17→21:59)
[2020-02-05] MEDS: Rivaroxaban 20 MG Tablet PO (16:17)
[2020-02-05 16:20] LABS: Bedside Glucose 142 mg/dL (70-110)
[2020-02-05] MEDS: Acetaminophen 325 MG Tablet 650 MG PO (21:58)
[2020-02-05] MEDS: Gabapentin 100 MG Capsule 200 MG PO (21:59)
[2020-02-05 22:15] LABS: Bedside Glucose 150 mg/dL (70-110)
[2020-02-06] VITALS (10 sets, daily range): BP systolic 126–157; BP diastolic 58–76; PULSE 62–92; RESP 16–20; TEMP 36–36.8; O2SAT 84–97
[2020-02-06] MEDS: 0.9% Saline Lock 10 ML Syringe IV ×3 (01:10→09:08)
--- NOTE | 2020-02-06 03:10 | CPS ---
pt did not want woke up for aero tx
[2020-02-06 06:41] LABS: Bedside Glucose 147 mg/dL (70-110)
[2020-02-06] MEDS: Ipratropium 0.5 MG/2.5 ML SOLUTION INHALATION ×2 (07:02→11:00)
[2020-02-06] MEDS: metFORMIN (XR) 500 MG Tablet PO (08:48)
[2020-02-06] MEDS: Acetaminophen 325 MG Tablet 650 MG PO (08:57)
[2020-02-06] MEDS: levoFLOXacin IV 500 MG/100 ML BAG 100 MG IV (09:08)
[2020-02-06] MEDS: Metoprolol(XL)Succ 25 MG Tablet 75 MG PO (09:09)
[2020-02-06] MEDS: guaiFENesin 1,200 MG Tablet 1200 MG PO (09:09)
[2020-02-06] MEDS: Gabapentin 100 MG Capsule PO (09:09)
[2020-02-06] MEDS: Leflunomide 10 MG TABLET PO (09:09)
--- NOTE | 2020-02-06 10:16 | PCM.DC ---
- Discharge Diagnoses Current Active Problems: Current Active and Chronic Problems COPD exacerbation (Acute) Chronic respiratory failure (Chronic) COPD (chronic obstructive pulmonary disease) (Chronic) Type 2 diabetes mellitus (Chronic) Paroxysmal atrial fibrillation (Chronic) You will use the following diet at home:: Calorie/Carbohydrate Controlled (specify 1200, 1400, etc) - 1800 ADA diet Discharge Activity: May Not Drive Weight Bearing Status: Weight bearing as tolerated Call your doctor if you observe: Fever of 101 or Higher, Numbness or Tingling, Change in Color, Inability to have a bowel movement, Using more than one pad per hour, Shortness of breath, Dizziness, Fainting spells, Swelling in the ankles, Chest pain, Prolonged hiccoughing, Calf discomfort, Uncontrolled pain Additional Instructions: Patient is ambulatory in home and in the community and requires home oxygen with portability. Allergies/Adverse Reactions: Allergies No Known Allergies Allergy (Verified 02/02/20 11:50) Medications to take at Discharge Acetaminophen [Tylenol Extra Strength] 1,000 mg PO DAILY PRN PRN 01/30/19 Leflunomide 10 mg PO DAILY 01/30/19 Metoprolol Succinate 50 mg PO DAILY 01/30/19 Rivaroxaban [Xarelto] 20 mg PO DAILY 01/30/19 metFORMIN (XR) [Glucophage Xr] 500 mg PO DAILY 01/30/19 Gabapentin [Neurontin] 100 mg PO DAILY 05/10/19 Gabapentin [Neurontin] 200 mg PO QHS 05/10/19 Ipratropium/Albuterol Sulfate [Duoneb] 3 ml INHALATION Q6H.RT 05/10/19 Ferrous Gluconate 1 tab PO BID 02/05/20 Guaifenesin [Mucinex] 1,200 mg PO BID #14 tab 02/06/20 Prednisone 10 mg PO UD #32 tab 02/06/20 Senna/Docusate Sodium [Senokot-S] 2 tablet PO BID PRN PRN tablet 02/06/20 The following prescriptions were given: Guaifenesin [Mucinex] 1,200 mg PO BID #14 tab Transmission Status: Pending to [id number] Prednisone 10 mg PO UD #32 tab Transmission Status: Pending to [id number] Primary Care Physician: Alexa Becerra PA [Primary Care Provider] - Please follow up with your Primary Care Physician in: in 1-2 weeks Test Results: Test results from this visit will be discussed in further detail at your follow-up appointment, if applicable. Please Follow Up With: Devante Freeman MD When: in 1-2 weeks for advaned COPD
--- NOTE | 2020-02-06 10:17 | PCM.DC.SUM ---
Discharge Date and Diagnosis - Problem List Patient Problems: Active and Suspected Problems COPD exacerbation (Acute) Date of Admission: 02/02/20 Date of Discharge: 02/06/20 - Primary Discharge Diagnosis Acute Problems: Active Problems COPD exacerbation (Acute) - Secondary Discharge Diagnosis Chronic Problems: Chronic Problems Chronic respiratory failure (Chronic) COPD (chronic obstructive pulmonary disease) (Chronic) Type 2 diabetes mellitus (Chronic) Arthritis (Chronic) Chronic interstitial lung disease (Chronic) Paroxysmal atrial fibrillation (Chronic) Hospital Course and Treatment Operations: None Summary of Care Provided: The patient is a 64 year with history of COPD on 3 L of home oxygen and 6 L with activity was admitted with severe shortness of breath, chest tightness and wheezing for 2 weeks consistent with COPD exacerbation 1. Acute COPD exacerbation in a patient with chronic hypoxic respiratory failure, on 3 L of oxygen Respiratory panel is negative, COVID-19 is negative. Chest x-ray shows no acute infiltrates. IV Solu-Medrol increased to 40 mg every 6 hourly. Incentive spirometry Pap and continue bronchodilator. Wean off oxygen to keep pulse ox 90%. She completed 5 days of empiric Levaquin Patient on baseline 2 L at rest and on activity and exertion required 6 L of oxygen. Patient is ambulatory in home and in the community and requires home oxygen with portability. 2. Paroxysmal atrial fibrillation, in normal sinus rhythm, Metoprolol succinate 75 mg daily, continue on Xarelto 3. Type II DM, on metformin, blood sugars are stable, will continue with blood glucose checks with insulin sliding scale 4. Patient has diffuse degenerative disease, chronic interstitial lung disease: Stable. 5. DVT prophylaxis, on Xarelto Discharge medication reconciliation done. Discharge follow-up instructions completed. Discharge process discussed with the patient and all questions were answered to patient's satisfaction. Follow up Dr Mehta Total time spent, exact 35 minutes on discharge meds reconciliation, examination, coordination of care with nurses and ancillary staff, review of imaging and blood test and discussion with the patient on follow-up instructions Patient Problems: Active and Suspected Problems COPD exacerbation (Acute) Subjective: Heart rate and blood pressure are controlled. Patient gets short of breath on mild exertion. On 2 L of oxygen at rest but 6 L on ambulation and exertion. Physical exam General: Alert, Oriented x3, Cooperative HEENT: Atraumatic, PERRLA, EOMI, Normocephalic Oral: No Gingival or Mucosal Lesions/ Ulcerations Neck: Supple, No JVD, Negative Carotid Bruits Lungs: Air entry severely diminished in bilateral lung bases. Bilateral diffuse wheezing and rhonchi. Dyspnea on exertion Cardiovascular: Regular rate, Regular Rhythm, Normal S1, Normal S2, No murmurs Abdomen: Bowel Sounds Present, Soft, Non Tender, Non-Distended. : No renal angle tenderness. No suprapubic tenderness. Extremities: No edema, Capillary Refill Less than 3 Seconds Skin: No rashes, No breakdown Musculoskeletal: No Tenderness to Palpation of Joints or Extremities Neurological: Cranial nerves II-XII grossly intact, Deep Tendon Reflexes 2+/4 and Symmetrical, Neuro grossly intact Psych/Mental Status: Normal Affect, Appropriate. - Physical Exam Vitals/I&O's: Vital Signs Temp Pulse Resp BP Pulse Ox 97.1 F L 92 18 157/58 H 94 02/06/20 08:44 02/06/20 09:09 02/06/20 08:44 02/06/20 08:44 02/06/20 08:50 Oxygen Flow Rate (L/min) [ 3 AMBULATION with Oxygen] Oxygen Flow Rate (L/min) 2 Oxygen Delivery Method Nasal Cannula Weight: 184 lb 15.485 oz Body Mass Index (BMI) 31.7 Intake and Output for Last 24 Hours 02/04/20 02/05/20 02/06/20 23:59 23:59 23:59 Intake Total 2161.25 / 2281.25 1520 / 1640 420.5 / 420.5 Balance 2161.25 / 2281.25 1520 / 1640 420.5 / 420.5 Microbiology Past 72 Hours 02/02/20 23:00 Sputum, Expectorated/Coughed Gram Stain - Final 02/02/20 23:00 Sputum, Expectorated/Coughed Respiratory Culture - Final Streptococcus group A Laboratory Results 02/05/20 10:48: POC Glucose 153 H 02/05/20 16:13: POC Glucose 142 H 02/05/20 21:44: POC Glucose 150 H 02/06/20 06:33: POC Glucose 147 H Current Medications Acetaminophen (Acetaminophen 325 Mg Tablet) 650 mg PO Q6H PRN PRN PRN Reason: Pain Score 1-10/Temp > 100.7 F Last Admin: 02/06/20 08:57 Dose: 650 mg Documented by: Calcium Carbonate (Calcium Carbonate 500 Mg Tablet) 1,000 mg PO Q6H PRN PRN PRN Reason: HEARTBURN Last Admin: 02/05/20 21:58 Dose: 1,000 mg Documented by: Furosemide (Furosemide 40 Mg/4 Ml Vial) 40 mg IV X1 [facility] Stop: 02/06/20 10:17 Gabapentin (Gabapentin 100 Mg Capsule) 100 mg PO DAILY [facility] Last Admin: 02/06/20 09:09 Dose: 100 mg Documented by: Gabapentin (Gabapentin 100 Mg Capsule) 200 mg PO QHS [facility] Last Admin: 02/05/20 21:59 Dose: 200 mg Documented by: Guaifenesin (Guaifenesin 1,200 Mg Tablet) 1,200 mg PO BID [facility] Last Admin: 02/06/20 09:09 Dose: 1,200 mg Documented by: Levofloxacin (Levaquin Iv) 500 mg in 100 mls @ 100 mls/hr IV Q24 [facility] Stop: 02/06/20 10:59 Last Admin: 02/06/20 09:08 Dose: 100 mls/hr Documented by: Sodium Chloride () 250 mls @ 15 mls/hr IV .[id number] PRN PRN Reason: Saline Flush Last Infusion: 02/06/20 09:10 Dose: 0 mls/hr Documented by: Sodium Chloride () 250 mls @ 15 mls/hr IV .[id number] PRN PRN Reason: Additional IVPB Infusion Insulin Human Lispro (Insulin Lispro 100 Unit/Ml Insuln.Pen) 0 unit SC ACHS [facility]; Protocol Last Admin: 02/06/20 06:34 Dose: Not Given Documented by: Ipratropium [place] (Ipratropium 0.5 Mg/2.5 Ml Solution) 0.5 mg INHALATION Q4H.RT [facility] Last Admin: 02/06/20 07:02 Dose: 0.5 mg Documented by: Leflunomide (Leflunomide 10 Mg Tablet) 10 mg PO DAILY [facility] Last Admin: 02/06/20 09:09 Dose: 10 mg Documented by: Metformin HCl (Metformin (Xr) 500 Mg Tablet) 500 mg PO DAILYCM [facility] Last Admin: 02/06/20 08:48 Dose: 500 mg Documented by: Methylprednisolone (Methylprednisolone 40 Mg/Ml Vial) 40 mg IV Q6 [facility] Last Admin: 02/06/20 06:29 Dose: 40 mg Documented by: Metoprolol Succinate (Metoprolol(Xl)Succ 25 Mg Tablet) 75 mg PO DAILY [facility] Last Admin: 02/06/20 09:09 Dose: 75 mg Documented by: Ondansetron HCl (Ondansetron 4 Mg/2 Ml Vial) 4 mg IV Q8H PRN PRN PRN Reason: NAUSEA/VOMITING Rivaroxaban (Rivaroxaban 20 Mg Tablet) 20 mg PO DINNER [facility] Last Admin: 02/05/20 16:17 Dose: 20 mg Documented by: Senna/Docusate Sodium (Senna/Docusate Sodium 1 Tablet) 2 tablet PO BID PRN PRN PRN Reason: Constipation Sodium Chloride (0.9% Saline Lock 10 Ml Syringe) 10 - 40 ml IV UD PRN PRN Reason: SALINE FLUSH Last Admin: 02/06/20 09:08 Dose: 20 ml Documented by: Home Medications: Medications to take at Discharge Acetaminophen [Tylenol Extra Strength] 1,000 mg PO DAILY PRN PRN 01/30/19 Leflunomide 10 mg PO DAILY 01/30/19 Metoprolol Succinate 50 mg PO DAILY 01/30/19 Rivaroxaban [Xarelto] 20 mg PO DAILY 01/30/19 metFORMIN (XR) [Glucophage Xr] 500 mg PO DAILY 01/30/19 Gabapentin [Neurontin] 100 mg PO DAILY 05/10/19 Gabapentin [Neurontin] 200 mg PO QHS 05/10/19 Ipratropium/Albuterol Sulfate [Duoneb] 3 ml INHALATION Q6H.RT 05/10/19 Ferrous Gluconate 1 tab PO BID 02/05/20 Guaifenesin [Mucinex] 1,200 mg PO BID #14 tab 02/06/20 Prednisone 10 mg PO UD #32 tab 02/06/20 Senna/Docusate Sodium [Senokot-S] 2 tab PO BID PRN PRN tab 02/06/20 Following Prescriptions Were Given to Patient: Guaifenesin [Mucinex] 1,200 mg PO BID #14 tab Transmission Status: Received by [id number] Prednisone 10 mg PO UD #32 tab Transmission Status: Received by [id number] Primary Care Physician: Alexa Becerra PA [Primary Care Provider] - Medical Necessity - Tobacco Use Smoking Status: Former smoker Tobacco Use: Non-smoker Meaningful Use Info Meaningful Use Diagnoses (Choose all that apply): None applicable Inpatient E&M: 60163 Disch Hosp
[2020-02-06] MEDS: Furosemide 40 MG Tablet PO (11:23)
[2020-02-06] MEDS: Insulin Lispro 100 UNIT/ML INSULN.PEN SC (11:25)
[2020-02-06 11:31] LABS: Bedside Glucose 154 mg/dL (70-110)
--- NOTE | 2020-02-06 12:24 | CASEMGMT ---
Pt qualifies for 2liters at rest and 6 liters with ambulation at this time. New script faxed to [facility] at this time with facesheet and testing notes. D/C summary to be faxed when obtained. Pt/ updated on all at this time, voices understanding. Per pt/, her portable tanks and concentrator both go up to 6liters. Pt/ voice no further questions/concerns/needs at this time. SStjeison RAUSCH CM
--- NOTE | 2020-02-07 09:21 | CASEMGMT ---
D/C summ faxed to [facility] at this time. Lupe RAUSCH CM
--- NOTE | 2020-02-07 14:56 | CASEMGMT ---
RN CM Discharge F/U Phone Call LACE: 12 Strata: 3 Discharge date: 02/06/2020 Call date: 02/07/2020 Call time: [phone] Attempted to reach pt without success at this time, message left for pt to call this RN CM back if/when able. SStaten RN CM Admission dx: Acute COPD/Lung fibrosis exac/tachycardia
== END 2020-02-06 13:30 | disposition home or self-care (01) | DRG 191 ==
LOC: ED 13:03 → PCU 16:49
PROVIDERS: Internal Medicine; Admitting Provider Hospitalist; Emergency Provider Emergency Medicine; PCP Physician Assistant; Visit Provider Internal Medicine
DX: J44.1 Chronic obstructive pulmonary disease with (acute) exacerbation (principal); J96.11 Chronic respiratory failure with hypoxia; I48.0 Paroxysmal atrial fibrillation; E11.9 Type 2 diabetes mellitus without complications; E66.9 Obesity, unspecified; Z99.81 Dependence on supplemental oxygen; M19.90 Unspecified osteoarthritis, unspecified site; Z68.32 Body mass index [BMI] 32.0-32.9, adult; D53.9 Nutritional anemia, unspecified; D72.829 Elevated white blood cell count, unspecified; J84.10 Pulmonary fibrosis, unspecified; Z79.84 Long term (current) use of oral hypoglycemic drugs; Z79.02 Long term (current) use of antithrombotics/antiplatelets; Z79.51 Long term (current) use of inhaled steroids; Z79.899 Other long term (current) drug therapy; Z87.891 Personal history of nicotine dependence; Z23 Encounter for immunization
CPT/HCPCS: 36415; 36600; 71045; 80048; 80053; 82803; 82962; 83605; 84484; 85025; 87070; 87077; 87205; 87633; 87635; 93005; 94640; 94667; 94668; 97110; 97162; 97165; 97530; 99251; 99283; 99285; G0008; J7030; J7050; 90686; A4216; G0463; J2405; U0003

== ENCOUNTER 2020-08-26 21:01 | Emergency (ER) | payer MEDICARE, SELFPAY ==
[2020-02-02 18:15] VITALS: BMI 31.7
[2020-08-26 21:02] VITALS: BP 121/69; PULSE 118; RESP 22; TEMP 37.2; O2SAT 98; BMI 27.9
--- NOTE | 2020-08-26 21:16 | EDS_ITS ---
HPI HPI - GI History of Present Illness Chief Complaint: Nausea/Vomiting/Diarrhea Informant: patient Abdominal Pain/Flank Pain Onset: Weeks Timing: Intermittent Quality: Cramping Location: Epigastric Current Severity: Mild Maximum Severity: Mild Worsened by: Nothing Relieved by: Nothing Nausea/Vomiting/Emesis GI Symptom: Positive for Nausea; Negative for Vomiting Onset: Weeks Severity: Mild Diarrhea/Melena/Hematochezia GI Symptom: Positive for Diarrhea Onset: Yesterday Stool Quality: Positive for Loose Severity: Mild Associated Symptoms Associated Symptoms: Negative for Dysuria, Frequency, Hematuria and Urgency Narrative Narrative: 65-year-old female with past medical history of COPD and prior hysterectomy. States that about a week ago she started having nausea intermittently. No vomiting. Initially no diarrhea. Today at the nausea developed she started getting epigastric abdominal cramping. She denies any fever or chills. Denies any dysuria or hematuria. Denies any weight loss. States yesterday started having some loose diarrhea. No melena. Prior similar symptoms: No Recent Illness/Hospitalization: No PFSH PFSH Medical History Bronchitis Pneumonia Rheumatoid arthritis Home Medications acetaminophen 1,000 mg PO DAILY PRN PRN 01/30/19 [History Last Taken 02/01/20] leflunomide 10 mg PO DAILY 01/30/19 [History Last Taken 02/01/20] metformin 500 mg PO DAILY 01/30/19 [History Last Taken 02/01/20] metoprolol succinate 50 mg PO DAILY 01/30/19 [History Last Taken 02/01/20] rivaroxaban 20 mg PO DAILY 01/30/19 [History Last Taken 02/01/20] gabapentin 100 mg PO DAILY 05/10/19 [History Last Taken 02/01/20] gabapentin 200 mg PO QHS 05/10/19 [History Last Taken 02/01/20] ipratropium-albuterol 3 ml INHALATION Q6H.RT 05/10/19 [History Last Taken 02/01/20] ferrous gluconate 1 tab PO BID 02/05/20 [History Last Taken Unknown] guaifenesin 1,200 mg PO BID #14 tab 02/06/20 [Rx Last Taken Unknown] prednisone 10 mg PO UD #32 tab 02/06/20 [Rx Last Taken Unknown] sennosides-docusate sodium 2 tab PO BID PRN PRN tab 02/06/20 [Rx Last Taken Unknown] ondansetron HCl [Zofran] 4 mg PO Q6H #10 tab 08/27/20 [Rx Last Taken Unknown] Allergy/AdvReac Type Severity Reaction Status Date / Time No Known Allergies Allergy Verified 02/02/20 11:50 Social History Smoking Status: Former smoker ROS ROS ED ROS Narrative Other than the nausea and abdominal cramping she really denies any significant review of systems other than diarrhea the last 2 days. Review of Systems ROS Unobtainable: Denies due to encephalopathy Constitutional Constitutional ED: Denies chills or fever(s) ENT ENT ED: Denies sore throat Cardiovascular Cardiovascular: Denies chest pain Respiratory/Chest Respiratory/Chest: Denies dyspnea Gastrointestinal Gastrointestinal: Reports abdominal pain, diarrhea and nausea; Denies constipation, melena or vomiting Genitourinary Genitourinary ED: Denies dysuria Musculoskeletal Musculoskeletal: Denies myalgias Integumentary Denies rash Neurologic Neurologic: Denies headache(s) Psychiatric Psychiatric: Denies depression Endocrine Endocrinology: Denies polyuria Hematologic/Lymphatic Hematologic/Lymphatic: Denies easy bruising Allergic/Immunologic Allergic/Immunologic ED: Denies urticaria EXAM Physical Exam Narrative Exam Narrative: Older female no acute distress. Vital signs stable afebrile. Complaining of nausea without vomiting and abdominal discomfort for the last week. HEENT exam unremarkable. Mildly dry mucous memories. Neck nontender. Lungs clear to auscultation bilaterally. Heart tachycardic rate about 115 no murmur. Chest wall nontender. Abdomen soft. Minimal epigastric tenderness. No rebound, guarding rigidity. No signs of obstruction. Right upper right lower quadrant unremarkable. Positive bowel sounds. No mass. Moving all four extremities. No edema. Back nontender. Neurologically she is awake and alert. No focal motor deficits. Const Vital Signs: 08/26/20 21:02 08/26/20 23:02 Temperature 98.9 F Temperature Source Oral Pulse Rate 118 H 110 H Respiratory Rate 22 H 24 H Blood Pressure 121/69 H Blood Pressure Mean 86 Pulse Ox 98 99 Oxygen Delivery Method Nasal Cannula Nasal Cannula Oxygen Flow Rate (L/min) 3 3 Positive well nourished and well developed General Appearance ED: well developed HEENT Reports dry mucous membranes normocephalic and atraumatic Mouth ED: Yes dry mucous membranes Mouth: dry mucous membranes Eyes PERRL and EOMs intact bilaterally Neck no lymphadenopathy, supple and no JVD Resp normal respiratory effort and clear to auscultation bilaterally Cardio regular rhythm and no murmurs Rate: tachycardic GI non-distended and no masses Auscultation: normoactive bowel sounds Palpation: soft and tender Back/Spine no CVA tenderness Neuro moves all extremities Sensorium / Orientation: alert, oriented to person, oriented to place, oriented to time and lethargic Psych mental status grossly normal Skin Rashes: no rashes MDM MDM MDM Narrative Medical decision making narrative: 65-year-old with epigastric abdominal discomfort and nausea for 1 week. Exam is relatively benign. There are no peritoneal signs. I do not think she needs imaging at this time. We will see what her labs results are. She will be treated with IV fluids and IV Zofran. Repeat exam patient is doing well 11:58 PM. Abdomen is benign. She and her are comfortable with her being discharged to home. Zofran for home for nausea. Follow-up with her primary care physician if not improving return if worse. Lab Data Attestation: I reviewed the patient's lab results. Labs: Laboratory Results - last 24 hr 08/26/20 08/26/20 21:35 21:35 WBC 9.8 RBC 3.18 L Hgb 9.4 L Hct 31.4 L MCV 98.7 MCH 29.6 MCHC 29.9 L RDW Std Deviation 51.0 H RDW Coeff of [place]ain[place] 14.0 Plt Count 355 MPV 9.8 Immature Gran % (Auto) 0.500 Neut % (Auto) 76.7 H Lymph % (Auto) 12.7 L [place] % (Auto) 7.1 Eos % (Auto) 2.1 Baso % (Auto) 0.9 Absolute Neuts (auto) 7.5 Absolute Lymphs (auto) 1.24 Nucleated RBC % 0 Sodium 136 Potassium 3.6 Chloride 103 Carbon Dioxide 30.0 Anion Gap 3 L BUN 10 Creatinine 0.84 Estim Creat Clear Calc 61.68 Est GFR (MDRD) Af Amer 88 Est GFR (MDRD) Non-Af 73 BUN/Creatinine Ratio 11.9 Glucose 117 H Calcium 8.2 L Total Bilirubin 0.40 AST 9 L ALT 10 L Alkaline Phosphatase 122 H Total Protein 7.0 Albumin 2.3 L Globulin 4.7 H Albumin/Globulin Ratio 0.5 L Lipase 59 L CBC shows a chronic anemia with a hemoglobin 9.4 which is her baseline. White count normal at 9 electrolytes unremarkable normal gap normal creatinine. Liver enzymes unremarkable. Lipase only 59. Chest x-ray shows interstitial edema with chronic changes. Patient and I and her went over all of her test results. Radiography Diagnostic Testing: Radiology Impression Chest X-Ray 08/26/20 23:00 IMPRESSION: Interstitial edema superimposed on interstitial fibrotic changes. Electronically Signed: Nghia Nguyen MD at 23:14 EDT Tel , Service support , EKG Initial EKG: Attestation: I personally reviewed and interpreted this EKG as follows: Interpretation: Sinus Rhythm, Sinus Tachycardia and S-T Elevation Comments: Sinus tachycardia at 118 with no acute change from prior EKG from January of last year. Prior EKG tracings: available for review Prior: Unchanged Discharge Plan Triage Chief Complaint: Nausea/Vomiting/Diarrhea ED Provider: Bryant Greer Dx/Rx/DC Orders Clinical Impression: Abdominal pain in female, Vomiting Instructions: ED Abdominal Pain Unkn Cause Fem, ED Vomiting (Adult) Prescriptions: New ondansetron HCl [Zofran] 4 mg tablet 4 mg PO Q6H Qty: 10 RF: 0 No Action metoprolol succinate 50 MG tablet extended release 24 hr 50 mg PO DAILY RF: 0 leflunomide 10 MG tablet 10 mg PO DAILY RF: 0 metformin 500 MG tablet 500 mg PO DAILY RF: 0 rivaroxaban 20 MG tablet 20 mg PO DAILY RF: 0 acetaminophen 500 MG tablet 1,000 mg PO DAILY PRN PRN (Reason: Pain Or Fever) RF: 0 ipratropium-albuterol 3 ML solution for nebulization 3 ml inhalation Q6H.RT RF: 0 gabapentin 100 MG capsule 100 mg PO DAILY RF: 0 gabapentin 100 MG capsule 200 mg PO QHS RF: 0 ferrous gluconate 324 MG tablet 1 tab PO BID RF: 0 sennosides-docusate sodium 1 TABLET tablet 2 tab PO BID PRN PRN (Reason: Constipation) RF: 0 guaifenesin 1,200 MG tablet 1,200 mg PO BID Qty: 14 RF: 0 prednisone 10 MG tablet 10 mg PO UD Qty: 32 RF: 0 Primary Care Provider: Alexa Becerra Referrals: Alexa Becerra, PA [Primary Care Provider] - 1-2 Days if not improving Activity Restrictions/Additional Instructions: Zofran as needed for nausea. Follow-up with your primary care provider if not improving. Return to emergency department if feeling worse. Disposition Disposition: Home, self care
--- NOTE | 2020-08-26 21:17 | EKG12_ITS ---
Test Reason : ABN HR Blood Pressure : / mmHG Vent. Rate : 114 BPM Atrial Rate : 114 BPM P-R Int : 128 ms QRS Dur : 066 ms QT Int : 316 ms P-R-T Axes : 023 -03 021 degrees QTc Int : 435 ms Sinus tachycardia with Premature atrial complexes Minimal voltage criteria for LVH, may be normal variant Inferior infarct , age undetermined Abnormal ECG Confirmed by YUMI NGUYEN, JERAMIE ([id number]), school photograph editor MIKAL MCDOWELL ([id number]) on 08/28/2020 8:25:08 AM Referred By: JIGNESH Confirmed By:JERAMIE EASON MD
[2020-08-26] MEDS: 0.9% Normal Saline 1,000 ML 1000 ML IV (21:33)
[2020-08-26] MEDS: Ondansetron 4 MG/2 ML Vial IV (21:33)
[2020-08-26 21:44] LABS: Absolute Lymphocyte Count 1.24 X10^3/uL (0.83-4.51); Absolute Neutrophil Count 7.5 X10^3/uL (2.0-7.7); Basophil# 0.09 X10^3/uL; Basophil% 0.9 % (0-1); Eosinophils% 2.1 % (0-5); Hematocrit 31.4 % (37-47); Hemoglobin 9.4 g/dL (12.0-15.0); Lymphocyte # 1.24 X10^3/ul (0.83-4.51); Lymphocyte % 12.7 % (19-41); Mean Corp Hgb Conc 29.9 g/dL (32-36); Mean Corpuscular Hgb 29.6 pg (27.0-32.0); Mean Corpuscular Volume 98.7 fL (81-99); Mean Platelet Vol. 9.8 fl (6.2-12.0); Monocyte# 0.69 X10^3/uL; Monocyte% 7.1 % (0-10); NRBC Flagged by Analyzer 0 % (0-5); Neutrophil # 7.48 X10^3/uL (2.7-7.7); Neutrophil % 76.7 % (47-70); Platelet Count 355 K/mm3 (150-450); Red Blood Count 3.18 M/mm3 (4.2-5.4); White Blood Count 9.8 K/mm3 (4.4-11.0)
[2020-08-26 22:04] LABS: ALB/GLOB Ratio 0.5 RATIO (0.9-2.4); AST(SGOT) 9 U/L (15-37); Alanine Aminotransfer ALT/SGPT 10 U/L (13-56); Albumin, Serum 2.3 g/dL (3.2-5.0); Alkaline Phosphatase 122 U/L (45-117); Anion Gap 3 (5-15); BUN 10 mg/dL (7-18); BUN/Creat Ratio 11.9 RATIO (10-20); Calcium,Total 8.2 mg/dL (8.5-10.1); Chloride 103 mmol/L (98-107); Creatinine, Serum 0.84 mg/dL (0.55-1.02); EST Glomerular Filtration Rate 73 mL/min (>60); Est Glom Filt Rate - Afr Amer 88 mL/min (>60); Estimated Creatinine Clearance 61.68 ml/min; Globulin 4.7 g/dL (2.2-4.2); Glucose 117 mg/dL (74-106); Lipase 59 U/L (73-393); Potassium 3.6 mmol/L (3.5-5.1); Sodium Level 136 mmol/L (136-145)
--- NOTE | 2020-08-26 23:00 | RAD_ITS ---
INDICATION: dyspnea EXAMINATION/TECHNIQUE: X-RAY - XR Chest 1 View COMPARISON: 02/05/2020. FINDINGS: Bilateral interstitial and airspace opacities superimposed on interstitial fibrotic changes. The cardiomediastinal silhouette is unremarkable. No pleural effusion or pneumothorax. No acute osseous abnormalities. RAD/Chest 1 View (Portable) IMPRESSION: Interstitial edema superimposed on interstitial fibrotic changes. Electronically Signed: Nghia Nguyen MD at 23:14 EDT Tel , Service support ,
[2020-08-26 23:02] VITALS: PULSE 110; RESP 24; O2SAT 99
[2020-08-27 00:32] VITALS: BP 115/51; PULSE 110; RESP 24; O2SAT 100
== END 2020-08-27 00:33 | disposition home or self-care (01) ==
PROVIDERS: Emergency Provider Emergency Medicine; PCP Physician Assistant
DX: R10.13 Epigastric pain (principal); R11.2 Nausea with vomiting, unspecified; R19.7 Diarrhea, unspecified; Z87.891 Personal history of nicotine dependence; Z79.84 Long term (current) use of oral hypoglycemic drugs; Z79.899 Other long term (current) drug therapy; Z90.710 Acquired absence of both cervix and uterus
CPT/HCPCS: 71045; 80053; 83690; 85025; 93005; 96361; 96374; 99285; J7030; J2405

== ENCOUNTER 2020-09-02 16:17 | Observation (INO) | payer MEDICARE, MEDICAID, SELFPAY ==
[2020-09-02] VITALS (9 sets, daily range): BP systolic 96–128; BP diastolic 62–96; PULSE 95–128; RESP 15–23; TEMP 36.4–36.6; O2SAT 95–100; BMI 32.7; BMI 30.7
--- NOTE | 2020-09-02 16:34 | EKG12_ITS ---
Test Reason : SOB Blood Pressure : / mmHG Vent. Rate : 123 BPM Atrial Rate : 123 BPM P-R Int : 134 ms QRS Dur : 066 ms QT Int : 314 ms P-R-T Axes : 051 -01 035 degrees QTc Int : 449 ms Sinus tachycardia with Premature atrial complexes Otherwise normal ECG Confirmed by YUMI NGUYEN, JERAMIE ([id number]), health editor MIKAL MCDOWELL ([id number]) on 09/03/2020 10:06:59 AM Referred By: MARK Confirmed By:JERAMIE EASON MD
--- NOTE | 2020-09-02 16:37 | EX.ED.DYSGE1 ---
HPI History of Present Illness Chief Complaint: General Illness Informant: patient and spouse/S.O. Narrative Narrative: 65-year-old female presents the emergency department following a near syncopal episode at primary care physician's office. She tells me that a couple weeks ago she fell ill with some generalized abdominal discomfort and nausea. She states that this was right after her second Covid vaccination on July 27. She was seen in the emergency department last week and had normal labs. Chest x-ray showed interstitial edema. She tells me that she was prescribed Zofran. She followed up with primary care today and the waiting room started developing hot flashes. She then developed shortness of breath sweating and her tells me that she passed out but she tells me she did not.. She eventually regained her mental status and got her breathing under control and started to feel somewhat better. By that time EMS was called to bring her to the hospital. She notes she has a history of anemia but her prior ED visit she was found not to be anemic. She does take iron once a day. States her stool patterns have not changed. The first bowel mid of the day is solid followed by yellow liquid after that. She notes a history of paroxysmal A. fib and is on Xarelto. She denies missing any doses she sees cardiology in [place]. She also sees pulmonology with [facility]. She wears home oxygen due to pulmonary fibrosis/COPD/bronchiectasis. She notes that she has had good p.o. intake. She notes increased amount of gas and belching. [facility] Medical History Atrial fibrillation Bronchitis Diabetes Former smoker Hyperthyroidism On home oxygen therapy Pneumonia Rheumatoid arthritis Sleep apnea Home Medications acetaminophen 1,000 mg PO DAILY PRN PRN 01/30/19 [History Last Taken 09/01/20] leflunomide 10 mg PO DAILY 01/30/19 [History Last Taken 09/02/20] metformin 500 mg PO DAILY 01/30/19 [History Last Taken 09/02/20] metoprolol succinate 50 mg PO DAILY 01/30/19 [History Last Taken 09/02/20] rivaroxaban [Xarelto] 20 mg PO DAILY 01/30/19 [History Last Taken 09/01/20] gabapentin 100 mg PO DAILY 05/10/19 [History Last Taken 09/02/20] ipratropium-albuterol 3 ml INHALATION Q6H.RT 05/10/19 [History Last Taken 09/02/20] ferrous gluconate 1 tab PO BID 02/05/20 [History Last Taken 09/02/20] ondansetron HCl [Zofran] 4 mg PO Q6H #10 tab 08/27/20 [Rx Last Taken 09/02/20] budesonide 0.5 mg INHALATION BID 09/02/20 [History Last Taken 09/02/20] gabapentin 300 mg PO QHS 09/02/20 [History Last Taken 09/01/20] guaifenesin 1,200 mg PO BID 09/02/20 [History Last Taken 09/02/20] Allergy/AdvReac Type Severity Reaction Status Date / Time No Known Allergies Allergy Verified 09/02/20 16:24 Social History (Updated 09/02/20 @ 16:[address] Pratik Andrade, DO) household members: spouse Smoking Status: Former smoker ROS ROS ED Constitutional Constitutional ED: Reports chills and sweats; Denies weight loss Eyes Eyes: Denies change in vision or diplopia ENT ENT ED: Denies ear pain, rhinorrhea or sore throat Cardiovascular Cardiovascular: Reports palpitations and racing heartbeat; Denies chest pain or orthopnea Respiratory/Chest Respiratory/Chest: Reports cough, dyspnea and dyspnea on exertion; Denies orthopnea Gastrointestinal Gastrointestinal: Reports abdominal pain and nausea; Denies diarrhea or vomiting Genitourinary Genitourinary ED: Denies dysuria, hematuria or urinary frequency Musculoskeletal Musculoskeletal: Denies arthralgias or myalgias Integumentary Denies abscess or rash Neurologic Neurologic: Denies headache(s) or weakness Psychiatric Psychiatric: Denies anxiety, depression, suicidal ideation or suicidal thoughts Endocrine Endocrinology: Denies polydipsia, polyphagia or polyuria Allergic/Immunologic Allergic/Immunologic ED: Denies mouth swelling, tongue swelling or urticaria EXAM Physical Exam Const Vital Signs: 09/02/20 16:20 09/02/20 16:27 09/02/20 16:58 Temperature 97.6 F L Temperature Source Oral Pulse Rate 128 H Pulse Rate [Lying] 118 H Pulse Rate [Sitting] 120 H Pulse Rate [Standing] 127 H Respiratory Rate 20 H Respiratory Effort Normal Non-Labored Respiratory Pattern Normal Blood Pressure 106/86 H Blood Pressure [Lying] 116/67 Blood Pressure [Sitting] 106/74 Blood Pressure [Standing] 112/96 H Blood Pressure Mean 92 Blood Pressure Mean [Lying] 83 Blood Pressure Mean [Sitting] 84 Blood Pressure Mean [Standing] 101 Pulse Ox 98 Oxygen Delivery Method Nasal Cannula Oxygen Flow Rate (L/min) 3 09/02/20 17:25 09/02/20 18:26 Temperature Temperature Source Pulse Rate 101 H Pulse Rate [Lying] Pulse Rate [Sitting] Pulse Rate [Standing] Respiratory Rate 23 H Respiratory Effort Respiratory Pattern Blood Pressure 108/87 H Blood Pressure [Lying] Blood Pressure [Sitting] Blood Pressure [Standing] Blood Pressure Mean 94 Blood Pressure Mean [Lying] Blood Pressure Mean [Sitting] Blood Pressure Mean [Standing] Pulse Ox 96 100 Oxygen Delivery Method Nasal Cannula Nasal Cannula Oxygen Flow Rate (L/min) 3 3 Positive well nourished and well developed General Appearance ED: well developed HEENT Reports normocephalic, head/scalp atraumatic and moist mucous membranes Eyes PERRL and EOMs intact bilaterally Neck no lymphadenopathy, supple and no JVD Resp normal respiratory effort and clear to auscultation bilaterally Cardio regular rate and no murmurs Rate: tachycardic GI GI Narrative: Periumbilical and epigastric discomfort Auscultation: normoactive bowel sounds Palpation: soft and tender Back/Spine no CVA tenderness and normal ROM Extremity normal to inspection General Extremety ED: Negative for edema General Extremity: Negative for edema Neuro oriented x3 and CN's II-XII intact bilaterally Sensorium / Orientation: alert Motor Exam: strength 5/5 throughout Psych mental status grossly normal Mood & Affect: Negative for depressed or tearful Skin no rashes or lesions noted and no wounds MDM MDM MDM Narrative Medical decision making narrative: My interpretation of the plain film the chest x-ray is pulmonary fibrosis basic blood work showed an elevated lactic acid. Her white count however is normal. She is not hypotensive. Urinalysis is normal. CT of the abdomen and pelvis shows no acute findings. Patient received IV fluids. We attempted to do orthostatics on her and she states she could not stand. now tells me that typically each day she does pretty good until the evening hours when she gets acutely weak and she has to go to bed but then wakes up feeling better. I do not have a great explanation for the patient's symptoms the abdominal pain could be gastritis. Due to the elevated lactic acid the tachycardia and the reported syncope think is reasonable to observe her tonight Lab Data Attestation: I reviewed the patient's lab results. Labs: Laboratory Results - last 24 hr 09/02/20 09/02/20 09/02/20 16:15 16:15 16:15 WBC 10.5 RBC 3.53 L Hgb 10.2 L Hct 35.1 L MCV 99.4 H MCH 28.9 MCHC 29.1 L RDW Std Deviation 49.8 H RDW Coeff of [place] 13.7 Plt Count 540 H MPV 9.8 Immature Gran % (Auto) 0.700 Neut % (Auto) 72.7 H Lymph % (Auto) 16.9 L [place] % (Auto) 7.0 Eos % (Auto) 1.7 Baso % (Auto) 1.0 Absolute Neuts (auto) 7.6 Absolute Lymphs (auto) 1.78 Nucleated RBC % 0 PT 17.3 H INR 1.5 APTT 36.6 H Sodium 132 L Potassium 4.1 Chloride 97 L Carbon Dioxide 29.0 Anion Gap 6 BUN 12 Creatinine 1.11 H Estim Creat Clear Calc 44.80 Est GFR (MDRD) Af Amer 64 Est GFR (MDRD) Non-Af 53 L BUN/Creatinine Ratio 10.8 Glucose 153 H Lactic Acid Calcium 8.8 Total Bilirubin 0.40 AST 12 L ALT 11 L Alkaline Phosphatase 165 H Troponin I < 0.015 B-Natriuretic Peptide Total Protein 7.9 Albumin 2.5 L Globulin 5.4 H Albumin/Globulin Ratio 0.5 L Lipase 76 Urine Color Urine Clarity Urine pH Ur Specific [place] Urine Protein Urine Glucose (UA) Urine Ketones Urine Occult Blood Urine Nitrite Urine Bilirubin Urine Urobilinogen Ur Leukocyte Esterase Urine RBC Urine WBC Ur Squamous Epith Cells Urine Bacteria Urine Mucus 09/02/20 09/02/20 09/02/20 16:15 16:45 17:55 WBC RBC Hgb Hct MCV MCH MCHC RDW Std Deviation RDW Coeff of [place] Plt Count MPV Immature Gran % (Auto) Neut % (Auto) Lymph % (Auto) [place] % (Auto) Eos % (Auto) Baso % (Auto) Absolute Neuts (auto) Absolute Lymphs (auto) Nucleated RBC % PT INR APTT Sodium Potassium Chloride Carbon Dioxide Anion Gap BUN Creatinine Estim Creat Clear Calc Est GFR (MDRD) Af Amer Est GFR (MDRD) Non-Af BUN/Creatinine Ratio Glucose Lactic Acid 3.0 H* Calcium Total Bilirubin AST ALT Alkaline Phosphatase Troponin I B-Natriuretic Peptide 57.5 Total Protein Albumin Globulin Albumin/Globulin Ratio Lipase Urine Color Yellow Urine Clarity Clear Urine pH 5.0 Ur Specific [place] 1.020 Urine Protein 30 H Urine Glucose (UA) Normal Urine Ketones 5 H Urine Occult Blood Negative Urine Nitrite Negative Urine Bilirubin 1 H Urine Urobilinogen 1 H Ur Leukocyte Esterase 25 H Urine RBC 0 SEEN Urine WBC 0-5 SEEN Ur Squamous Epith Cells 0 SEEN Urine Bacteria 0 SEEN Urine Mucus 2+ Radiography Diagnostic Testing: Radiology Impression Chest X-Ray 09/02/20 16:55 IMPRESSION: Chronic interstitial fibrotic changes similar in appearance to prior on 08/26/2020. Electronically Signed: Nghia Nguyen MD at 17:38 EDT Tel , Service support , Abdomen/Pelvis CT 09/02/20 17:40 IMPRESSION: 1. Mild colonic diverticulosis 2. Subserosal small uterine fibroid 3. Moderate to severe fibrotic changes are present as well as bronchiectasis, which represents worsening from the prior study. Some small consolidative areas are present presumably chronic rather than representing an acute pneumonia. Clinical correlation recommended. Electronically Signed: Fidel Ramos MD at 18:39 EDT , Service support , EKG Initial EKG: Attestation: I personally reviewed and interpreted this EKG as follows: Comments: EKG demonstrates a sinus tachycardia at a rate of 123 with PACs Discharge Plan Triage Chief Complaint: General Illness ED Provider: Pratik Andrade Dx/Rx/DC Orders Clinical Impression: Chronic anemia, Syncope, Tachycardia, Elevated lactic acid level, Abdominal pain, acute, Generalized weakness Prescriptions: No Action metoprolol succinate 50 MG tablet extended release 24 hr 50 mg PO DAILY RF: 0 leflunomide 10 MG tablet 10 mg PO DAILY RF: 0 metformin 500 MG tablet 500 mg PO DAILY RF: 0 Xarelto 20 MG tablet 20 mg PO DAILY RF: 0 acetaminophen 500 MG tablet 1,000 mg PO DAILY PRN PRN (Reason: Pain Or Fever) RF: 0 ipratropium-albuterol 3 ML solution for nebulization 3 ml inhalation Q6H.RT RF: 0 gabapentin 100 MG capsule 100 mg PO DAILY RF: 0 ferrous gluconate 324 MG tablet 1 tab PO BID RF: 0 ondansetron HCl [Zofran] 4 mg tablet 4 mg PO Q6H Qty: 10 RF: 0 gabapentin 300 mg capsule 300 mg PO QHS RF: 0 budesonide 0.5 mg/2 mL suspension for nebulization 0.5 mg inhalation BID RF: 0 guaifenesin 1,200 MG tablet extended release 12hr 1,200 mg PO BID RF: 0 Primary Care Provider: Alexa Becerra Referrals: Alexa Becerra PA [Primary Care Provider] - Disposition Disposition: Acute Care Hospital [facility]
[2020-09-02] MEDS: Ondansetron 4 MG/2 ML Vial IV (16:47)
[2020-09-02 16:53] LABS: Absolute Lymphocyte Count 1.78 X10^3/uL (0.83-4.51); Absolute Neutrophil Count 7.6 X10^3/uL (2.0-7.7); Basophil# 0.11 X10^3/uL; Eosinophil# 0.18 X10^3/uL; Eosinophils% 1.7 % (0-5); Hematocrit 35.1 % (37-47); Hemoglobin 10.2 g/dL (12.0-15.0); Lymphocyte # 1.78 X10^3/ul (0.83-4.51); Lymphocyte % 16.9 % (19-41); Mean Corp Hgb Conc 29.1 g/dL (32-36); Mean Corpuscular Hgb 28.9 pg (27.0-32.0); Mean Corpuscular Volume 99.4 fL (81-99); Mean Platelet Vol. 9.8 fl (6.2-12.0); Monocyte# 0.74 X10^3/uL; NRBC Flagged by Analyzer 0 % (0-5); Neutrophil # 7.64 X10^3/uL (2.7-7.7); Neutrophil % 72.7 % (47-70); Platelet Count 540 K/mm3 (150-450); RBC Distribution Width CV 13.7 % (11.6-14.6); RBC Distribution Width SD 49.8 fl (35.1-43.9); Red Blood Count 3.53 M/mm3 (4.2-5.4); White Blood Count 10.5 K/mm3 (4.4-11.0)
--- NOTE | 2020-09-02 16:55 | RAD_ITS ---
INDICATION: cough and sob. pt was transported via EMS from dr. araujo for near syncopal episode. Pt. has not felt well for weeks. EXAMINATION/TECHNIQUE: X-RAY - XR Chest 1 View COMPARISON: 08/26/2020. FINDINGS: Chronic interstitial fibrotic changes similar in appearance to prior on 08/26/2020. The cardiomediastinal silhouette is unremarkable. No pleural effusion or pneumothorax. No acute osseous abnormalities. RAD/Chest 1 View (Portable) IMPRESSION: Chronic interstitial fibrotic changes similar in appearance to prior on 08/26/2020. Electronically Signed: Nghia Nguyen MD at 17:38 EDT Tel , Service support ,
[2020-09-02 17:08] LABS: International Normalized Ratio 1.5; Prothrombin Time (Protime)PT. 17.3 SECONDS (11.7-14.9)
[2020-09-02 17:09] LABS: Partial Thromboplast Time 36.6 Seconds (24.1-36.2)
[2020-09-02 17:17] LABS: ALB/GLOB Ratio 0.5 RATIO (0.9-2.4); AST(SGOT) 12 U/L (15-37); Alanine Aminotransfer ALT/SGPT 11 U/L (13-56); Albumin, Serum 2.5 g/dL (3.2-5.0); Alkaline Phosphatase 165 U/L (45-117); Anion Gap 6 (5-15); BUN 12 mg/dL (7-18); BUN/Creat Ratio 10.8 RATIO (10-20); Calcium,Total 8.8 mg/dL (8.5-10.1); Chloride 97 mmol/L (98-107); Creatinine, Serum 1.11 mg/dL (0.55-1.02); EST Glomerular Filtration Rate 53 mL/min (>60); Est Glom Filt Rate - Afr Amer 64 mL/min (>60); Globulin 5.4 g/dL (2.2-4.2); Glucose 153 mg/dL (74-106); Lipase 76 U/L (73-393); Potassium 4.1 mmol/L (3.5-5.1); Protein, Total 7.9 g/dL (6.4-8.2); Sodium Level 132 mmol/L (136-145)
[2020-09-02 17:35] LABS: BNP,B-Type NATRIURETIC PEPTIDE 57.5 pg/mL (0-100)
--- NOTE | 2020-09-02 17:40 | CT_ITS ---
STUDY: CT ABDOMEN AND PELVIS WITH CONTRAST REASON FOR EXAM: Female, 65 years old. abdominal pain RADIATION DOSAGE (If Supplied By Facility): CTDIvol = ( 16.02 ) mGy, DLP = ( 1102.44 ) mGycm TECHNIQUE: Transaxial images were obtained from the dome of the diaphragm to the symphysis pubis without oral contrast. IV 100mL [id number]-300 was administered. Sagittal and coronal images were reconstructed. Individualized dose optimization techniques were used for this CT. COMPARISON: CT of the chest dated January 26, 2011 FINDINGS: Moderate to severe fibrotic changes are present as well as bronchiectasis, which represents worsening from the prior study. Some small consolidative areas are present presumably chronic rather than representing an acute pneumonia. Normal liver. Normal gallbladder and extrahepatic biliary system. Normal spleen. Normal pancreas. Normal bilateral adrenal glands. Multiple small left renal cysts noted. These cysts do not require any additional imaging. No masses or hydronephrosis. Normal visualized stomach. Normal small intestine. There are several colonic diverticula consistent with diverticulosis. The appendix is visualized and appears normal. There is diffuse atherosclerotic calcification of the abdominal aorta, without a demonstrated aneurysm. Normal inferior vena cava. Normal retroperitoneum. Normal urinary bladder. Superior fundal small subserosal fibroid noted. Normal abdominal wall. There are diffuse degenerative changes of the visualized lumbar spine. CT/Abdomen/Pelvis W IV Cont ONLY IMPRESSION: 1. Mild colonic diverticulosis 2. Subserosal small uterine fibroid 3. Moderate to severe fibrotic changes are present as well as bronchiectasis, which represents worsening from the prior study. Some small consolidative areas are present presumably chronic rather than representing an acute pneumonia. Clinical correlation recommended. Electronically Signed: Fidel Ramos MD at 18:39 EDT , Service support ,
[2020-09-02] MEDS: LORazepam 2 MG/ML Syringe 1 MG IV (17:47)
[2020-09-02] MEDS: Metoclopramide 10 MG/2 ML Vial IV (17:47)
--- NOTE | 2020-09-02 17:55 | ED.RN ---
RN AT BEDSIDE TO AMBULATE PT WITH PULSE OX. PT STATES SHE CAN'T DO IT, SHE IS STILL NAUSEATED AND WON'T BE ABLE TO WALK. RN EXPLAINED THE IMPORTANCE OF AMBULATING FOR DR'S EVALUATION AND PT STILL REFUSED. RN INFORMED DR FLORES AT THIS TIME. RN WILL CONTINUE TO MONITOR.
[2020-09-02 18:06] LABS: Bacteria 0 SEEN /hpf (None Seen); Red Blood Cells-Urine 0 SEEN /hpf (0-5); Squamous Epithelial Cells - UA 0 SEEN /hpf (5-10)
[2020-09-02 18:11] LABS: Color, Urine Yellow (Yellow); Glucose, Dipstick Normal (Normal); Ketone-Dipstick 5 mg/dl (Negative); Leukocyte Esterase-Dipstick 25 /ul (Negative); Nitrite-Dipstick Negative (Negative); Occult Blood-Urine Negative /ul (Negative); Protein-Dipstick 30 mg/dl (Negative); Urine Clarity Clear (Clear); Urine Urobilinogen 1 mg/dl (Normal)
[2020-09-02 18:41] LABS: Urine Bilirubin Dipstick 1 mg/dL (Negative)
[2020-09-02 18:42] LABS: Mucous, Urine 2+ /hpf (<or=2+); White Blood Cells 0-5 SEEN /hpf (0-5)
--- NOTE | 2020-09-02 19:07 | ED.RN ---
PT STATES I CAN'T WALK
[2020-09-02] MEDS: 0.9% Normal Saline 1,000 ML 999 ML IV (19:08)
--- NOTE | 2020-09-02 19:14 | HP.PCM.HOS_ITS ---
HPI - General General Date of Admission: 09/02/20 HPI Narrative BOBBY FLORES, is a 65 F with an extensive PMH as outlined below who presents with a complaint of near syncope in her PCP's office this morning. She went to see her PCP today and had hot flushes in the waiting room, with associated shortness of breath. She felt lightheaded and dizzy and also felt nauseous. She doesnt think she passed out, but thought so and said it appeared like she blacked out for a few minutes. Patient has been having similar episodes at home and states that when she sits down for a long time and tries to get up to move around, she feels lightheaded and dizzy and has palpitations and takes a while to get back to her baseline. She has chronic respiratory failure due to COPD and is on 3 L of oxygen at home and says she has not required any more oxygen. She eventually came around, and EMS was called to bring her in to the ED. She says she was ill a couple of weeks ago with abdominal pain, which she says was after her second covid shot. SHe was seen in the ED then, and labs were normal. CBC showed wbc of 10.5, Hb of 10.2 nad platelets of 540. Chemistry showed sodium of 132 and Cr of 1.11, with chloride of 97. Lactic acid was 3, and she was also tachycardic on admission. UA didnt show any evidence of UTI. SHe is being admitted to be managed for presyncope. [facility] Medical History (Updated 09/02/20 @ 19:19 by Subha Santos) Anemia Atrial fibrillation Bronchitis Diabetes Former smoker GERD (gastroesophageal reflux disease) Hyperthyroidism On home oxygen therapy Pneumonia Rheumatoid arthritis Home Medications acetaminophen 1,000 mg PO DAILY PRN PRN 01/30/19 [History Last Taken 09/01/20] leflunomide 10 mg PO DAILY 01/30/19 [History Last Taken 09/02/20] metformin 500 mg PO DAILY 01/30/19 [History Last Taken 09/02/20] metoprolol succinate 50 mg PO DAILY 01/30/19 [History Last Taken 09/02/20] rivaroxaban [Xarelto] 20 mg PO DAILY 01/30/19 [History Last Taken 09/01/20] gabapentin 100 mg PO DAILY 01/22/20 [History Last Taken 09/02/20] ipratropium-albuterol 3 ml INHALATION Q6H.RT 05/10/19 [History Last Taken 09/02/20] ferrous gluconate 1 tab PO BID 02/05/20 [History Last Taken 09/02/20] ondansetron HCl [Zofran] 4 mg PO Q6H #10 tab 08/27/20 [Rx Last Taken 09/02/20] budesonide 0.5 mg INHALATION BID 09/02/20 [History Last Taken 09/02/20] gabapentin 300 mg PO QHS 09/02/20 [History Last Taken 09/01/20] guaifenesin 1,200 mg PO BID 09/02/20 [History Last Taken 09/02/20] Allergy/AdvReac Type Severity Reaction Status Date / Time No Known Allergies Allergy Verified 09/02/20 16:24 Surgical History (Updated 09/02/20 @ 19:19 by Subha Santos) H/O: hysterectomy Social History (Updated 09/02/20 @ 16:[address] Pratik Andrade, DO) household members: spouse Smoking Status: Former smoker ROS Constitutional Constitutional: Reports fatigue, malaise and weakness; Denies anorexia, change in weight, chills or fever(s) Eyes Eyes: Denies blurry vision ENT HEENT: Denies abnormal hearing or ear pain Cardiovascular Cardiovascular: Reports chest pain, lightheadedness, palpitations, rapid heart rate and syncope; Denies edema, orthopnea or paroxysmal nocturnal dyspnea Respiratory/Chest Respiratory/Chest: Reports dyspnea, shortness of breath at rest and shortness of breath with exertion; Denies cough, hemoptysis, productive cough or wheezing Gastrointestinal Gastrointestinal: Reports abdominal pain, dyspepsia and nausea; Denies constipation, hematemesis, hematochezia, loose stools or vomiting Genitourinary Genitourinary: Denies burning urination, difficulty urinating, hematuria or urinary hesitancy Musculoskeletal Musculoskeletal: Denies arthralgias, joint pain or joint swelling Neurologic Neurologic: Reports dizziness; Denies abnormal speech, confusion, focal weakness, numbness, seizure-like activity or seizures Psychiatric Psychiatric: Denies anxiety or depression Endocrine Endocrinology: Denies change in body appearance, cold intolerance or excessive sweating Hematologic/Lymphatic Hematologic/Lymphatic: Denies anemia Allergic/Immunologic Allergic/Immunologic: Denies asthma Vital Signs Vital Signs Vital Signs: 09/02/20 16:20 09/02/20 16:27 09/02/20 16:58 Temperature 97.6 F L Temperature Source Oral Pulse Rate 128 H Pulse Rate [Lying] 118 H Pulse Rate [Sitting] 120 H Pulse Rate [Standing] 127 H Respiratory Rate 20 H Respiratory Effort Normal Non-Labored Respiratory Pattern Normal Blood Pressure 106/86 H Blood Pressure [Lying] 116/67 Blood Pressure [Sitting] 106/74 Blood Pressure [Standing] 112/96 H Blood Pressure Mean 92 Blood Pressure Mean [Lying] 83 Blood Pressure Mean [Sitting] 84 Blood Pressure Mean [Standing] 101 Pulse Ox 98 Oxygen Delivery Method Nasal Cannula Oxygen Flow Rate (L/min) 3 09/02/20 17:25 09/02/20 18:26 Temperature Temperature Source Pulse Rate 101 H Pulse Rate [Lying] Pulse Rate [Sitting] Pulse Rate [Standing] Respiratory Rate 23 H Respiratory Effort Respiratory Pattern Blood Pressure 108/87 H Blood Pressure [Lying] Blood Pressure [Sitting] Blood Pressure [Standing] Blood Pressure Mean 94 Blood Pressure Mean [Lying] Blood Pressure Mean [Sitting] Blood Pressure Mean [Standing] Pulse Ox 96 100 Oxygen Delivery Method Nasal Cannula Nasal Cannula Oxygen Flow Rate (L/min) 3 3 Physical Exam Const alert, oriented x3 and no apparent distress General Appearance: cooperative HEENT normocephalic and head/scalp atraumatic; Negative for hearing grossly normal bilaterally, moist oral mucous membranes or oropharynx normal Eyes PERRL, EOMs intact bilaterally and conjunctivae normal Neck No no lymphadenopathy Resp No normal respiratory effort and No no use of accessory muscles Resp Narrative: coarse crackles in all lung ocampo bilaterally, with bilateral wheezing. on 3L of oxygen by nasal canula Auscultation: crackles and rhonchi Cardio regular rate, regular rhythm, S1 normal heart sound, S2 normal heart sound and no murmurs GI normal to inspection, nondistended, normoactive bowel sounds, soft to palpation, non-tender and non-distended GI Narrative: obese Extremity normal to inspection, full ROM and no clubbing, cyanosis or edema Peripheral Pulses: Yes pulses 2+ throughout Skin no rashes or lesions noted Neuro oriented x3 Sensorium / Orientation: awake and alert Psych affect normal Lab / Micro Data Result Diagrams: 09/03/20 02:56 09/03/20 02:56 Labs: Laboratory Results - last 24 hr 09/02/20 09/02/20 09/02/20 16:15 16:15 16:15 WBC 10.5 RBC 3.53 L Hgb 10.2 L Hct 35.1 L MCV 99.4 H MCH 28.9 MCHC 29.1 L RDW Std Deviation 49.8 H RDW Coeff of [place]ain[place] 13.7 Plt Count 540 H MPV 9.8 Immature Gran % (Auto) 0.700 Neut % (Auto) 72.7 H Lymph % (Auto) 16.9 L [place] % (Auto) 7.0 Eos % (Auto) 1.7 Baso % (Auto) 1.0 Absolute Neuts (auto) 7.6 Absolute Lymphs (auto) 1.78 Nucleated RBC % 0 PT 17.3 H INR 1.5 APTT 36.6 H Sodium 132 L Potassium 4.1 Chloride 97 L Carbon Dioxide 29.0 Anion Gap 6 BUN 12 Creatinine 1.11 H Estim Creat Clear Calc 44.80 Est GFR (MDRD) Af Amer 64 Est GFR (MDRD) Non-Af 53 L BUN/Creatinine Ratio 10.8 Glucose 153 H Lactic Acid Calcium 8.8 Total Bilirubin 0.40 AST 12 L ALT 11 L Alkaline Phosphatase 165 H Troponin I < 0.015 B-Natriuretic Peptide Total Protein 7.9 Albumin 2.5 L Globulin 5.4 H Albumin/Globulin Ratio 0.5 L Lipase 76 Urine Color Urine Clarity Urine pH Ur Specific [place] Urine Protein Urine Glucose (UA) Urine Ketones Urine Occult Blood Urine Nitrite Urine Bilirubin Urine Urobilinogen Ur Leukocyte Esterase Urine RBC Urine WBC Ur Squamous Epith Cells Urine Bacteria Urine Mucus 09/02/20 09/02/20 09/02/20 16:15 16:45 17:55 WBC RBC Hgb Hct MCV MCH MCHC RDW Std Deviation RDW Coeff of [place] Plt Count MPV Immature Gran % (Auto) Neut % (Auto) Lymph % (Auto) [place] % (Auto) Eos % (Auto) Baso % (Auto) Absolute Neuts (auto) Absolute Lymphs (auto) Nucleated RBC % PT INR APTT Sodium Potassium Chloride Carbon Dioxide Anion Gap BUN Creatinine Estim Creat Clear Calc Est GFR (MDRD) Af Amer Est GFR (MDRD) Non-Af BUN/Creatinine Ratio Glucose Lactic Acid 3.0 H* Calcium Total Bilirubin AST ALT Alkaline Phosphatase Troponin I B-Natriuretic Peptide 57.5 Total Protein Albumin Globulin Albumin/Globulin Ratio Lipase Urine Color Yellow Urine Clarity Clear Urine pH 5.0 Ur Specific [place] 1.020 Urine Protein 30 H Urine Glucose (UA) Normal Urine Ketones 5 H Urine Occult Blood Negative Urine Nitrite Negative Urine Bilirubin 1 H Urine Urobilinogen 1 H Ur Leukocyte Esterase 25 H Urine RBC 0 SEEN Urine WBC 0-5 SEEN Ur Squamous Epith Cells 0 SEEN Urine Bacteria 0 SEEN Urine Mucus 2+ Radiology Impression Chest X-Ray 09/02/20 16:55 IMPRESSION: Chronic interstitial fibrotic changes similar in appearance to prior on 08/26/2020. Electronically Signed: Nghia Nguyen MD at 17:38 EDT Tel , Service support , Abdomen/Pelvis CT 09/02/20 17:40 IMPRESSION: 1. Mild colonic diverticulosis 2. Subserosal small uterine fibroid 3. Moderate to severe fibrotic changes are present as well as bronchiectasis, which represents worsening from the prior study. Some small consolidative areas are present presumably chronic rather than representing an acute pneumonia. Clinical correlation recommended. Electronically Signed: Fidel Ramos MD at 18:39 EDT , Service support , Assessment & Plan Assessment/Plan (1) Syncope: (2) Tachycardia: (3) Elevated lactic acid level: (4) Generalized weakness: PLAN: #Syncope due to probable orthostatic hypotension * admit to PCU * Patient does say that she has had such similar symptoms of lightheadedness and dizziness at home when she sits for long * patient became very tachypneic and tachycardic with sitting up. * check orthostatics. Get 2D echo * patient is on anticoagulation with xarelto for afib; as such PE is lower on my list of differentials, but is certainly possible as a result of xarelto failure. I cannot do a CTA of the chest today because she received IV contrast with a CT abdomen and pelvis. * We will continue Xarelto and hydrate patient with IV fluids. CT of the chest may be done tomorrow, 24 hours after she received contrast if PE is still a consideration and to further evaluate lungs. * PT/OT consult * fall precautions * #Lactic acidosis: likely due to syncope and orthostatic hypotension. Hydrate wtih IVF adn trend #Abdominal pain * Has been complaining of abdominal pain since she had a Covid vaccine a couple of weeks ago * CT of the abdomen and pelvis done today showed mild colonic diverticulosis with subserosal small uterine fibroid and moderate to severe fibrotic changes as well as bronchiectasis which had worsened from the prior study with some consolidative areas present presumably chronic rather than representing an acute pneumonia. * Will monitor for now as there is no acute pathology evident on the CT for the abdominal pain. Seems to be dyspepsia related, from what she describes * will give simethicone to help with gas. * Tylenol as needd. * #History of A. fib: On Xarelto and metoprolol. 2D echo ordered. #Chronic hypoxic respiratory failure due to COPD and chronic interstitial lung disease * On 3 L of oxygen chronically. Titrate oxygen to maintain saturation above 90%. * breathing treatment with bronchodilators. Titrate oxygen to maintain sats >90% * on budesonide * #COPD and interstitial lung disease: as above #Type 2 diabetes mellitus: ISS. Accuchecks ACHS. DVT prophylaxis: not indicated as she is on xarelto Code status: full code * Patient has been counseled about differences between full code, DNR CCA and DNR CCA. Patient elects to be full code. Total [id number] time 16 minutes. Visit Charges OBSV E&M: 59015 Initial observation care L3 Procedures Hospitalists Procedures: 53716 Advncd Care Plan 30 Min
[2020-09-02] MEDS: 0.9% Normal Saline 1,000 ML 250 ML IV (20:14)
[2020-09-02 20:46] LABS: Reflex Lactate? Y
[2020-09-02] MEDS: 0.9% Normal Saline 1,000 ML 125 ML IV (21:08)
[2020-09-02 21:11] LABS: Bedside Glucose 94 mg/dL (70-110)
[2020-09-02] MEDS: Rivaroxaban 20 MG Tablet PO (21:11)
[2020-09-02] MEDS: guaiFENesin 1,200 MG Tablet 1200 MG PO (21:11)
[2020-09-02] MEDS: Famotidine 20 MG Tablet PO (21:12)
[2020-09-02] MEDS: Acetaminophen 500 MG Tablet 1000 MG PO (21:13)
[2020-09-02] MEDS: Gabapentin 300 MG Capsule PO (21:13)
[2020-09-02] MEDS: 0.9% Saline Lock 10 ML Syringe IV (21:14)
[2020-09-02] MEDS: guaiFENesin 10 ML UDC (200MG/10ML) PO (21:14)
[2020-09-02] MEDS: Budesonide Respules 0.5 MG/2 ML AMPUL.NEB. INHALATION (22:02)
[2020-09-02] MEDS: Ipratropium/Albuterol Sulfate 3 ML AMPUL.NEB INHALATION (22:02)
[2020-09-02 22:50] LABS: Lactic Acid 2.5 mmol/L (0.4-1.9)
[2020-09-03] VITALS (30 sets, daily range): BP systolic 77–138; BP diastolic 51–80; PULSE 81–108; RESP 18–30; TEMP 36.3–36.8; O2SAT 94–100
[2020-09-03 03:04] LABS: Absolute Lymphocyte Count 1.21 X10^3/uL (0.83-4.51); Absolute Neutrophil Count 4.4 X10^3/uL (2.0-7.7); Basophil% 1.5 % (0-1); Eosinophil# 0.21 X10^3/uL; Eosinophils% 3.2 % (0-5); Hemoglobin 7.9 g/dL (12.0-15.0); Lymphocyte # 1.21 X10^3/ul (0.83-4.51); Lymphocyte % 18.4 % (19-41); Mean Corp Hgb Conc 29.3 g/dL (32-36); Mean Corpuscular Hgb 28.8 pg (27.0-32.0); Mean Corpuscular Volume 98.5 fL (81-99); Mean Platelet Vol. 9.3 fl (6.2-12.0); Monocyte# 0.61 X10^3/uL; Monocyte% 9.3 % (0-10); NRBC Flagged by Analyzer 0 % (0-5); Platelet Count 375 K/mm3 (150-450); RBC Distribution Width CV 13.8 % (11.6-14.6); RBC Distribution Width SD 49.5 fl (35.1-43.9); Red Blood Count 2.74 M/mm3 (4.2-5.4); White Blood Count 6.6 K/mm3 (4.4-11.0)
[2020-09-03] MEDS: 0.9% Normal Saline 1,000 ML 999 ML IV (03:35)
[2020-09-03 03:46] LABS: Anion Gap 5 (5-15); BUN 10 mg/dL (7-18); BUN/Creat Ratio 15.1 RATIO (10-20); Calcium,Total 7.8 mg/dL (8.5-10.1); Chloride 106 mmol/L (98-107); Creatinine, Serum 0.66 mg/dL (0.55-1.02); EST Glomerular Filtration Rate 96 mL/min (>60); Est Glom Filt Rate - Afr Amer 116 mL/min (>60); Estimated Creatinine Clearance 75.34 ml/min; Glucose 113 mg/dL (74-106); Potassium 3.7 mmol/L (3.5-5.1); Sodium Level 140 mmol/L (136-145)
--- NOTE | 2020-09-03 05:55 | ECHOD_ITS ---
Reason For Study: syncope/near syncope Procedure This was a 2D Doppler, Color Flow transthoracic echocardiogram. The study was technically difficult. Exam performed portable in patient room. Left Ventricle Normal LV size. Left ventricular systolic function is normal. The estimated ejection fraction is 65 %. No evidence for diastolic dysfunction. No regional wall motion abnormalities noted. Right Ventricle Normal RV size. Normal systolic function. Atria Normal left atrium. Normal right atrium. No doppler evidence for ASD. Mitral Valve There is no mitral annular calcification. Normal mitral valve. Trivial mitral valve insufficiency. Tricuspid Valve Normal tricuspid valve. Trivial tricuspid valve insufficiency. Right ventricular systolic pressure estimated to be 43 mmHg. Aortic Valve Trisinus/trileaflet aortic valve. Normal aortic valve. Pulmonic Valve The pulmonic valve is not well visualized. Great Vessels Normal sized aortic root. Pericardium/Pleural No pericardial effusion. MMode/2D Measurements & Calculations LVIDd: 4.4 cm IVSd: 0.89 cm Ao root diam: 2.6 cm LVIDs: 3.0 cm LVPWd: 0.90 cm RVDd: 3.1 cm FS: 31.1 % LAV(MOD-bp): 45.3 ml LA A4 area: 17.5 cm2 LA dimension(2D): 3.8 cm LAV(MOD-bp) Indexed: 24.2 ml/m2 LAV(MOD-sp2): 42.9 ml LAV(MOD-sp4): 43.4 ml RA A4 area: 16.4 cm2 Time Measurements MV dec time: 0.17 sec Doppler Measurements & Calculations MV E max david: 89.9 cm/sec Lat Peak E' David: 15.2 cm/sec Med Peak E' David: 8.9 cm/sec MV A max david: 102.4 cm/sec E/E' lat: 5.9 E/E' med: 10.1 MV E/A: 0.88 Ao V2 max: 150.8 cm/sec LV V1 max: 113.1 cm/sec PA V2 max: 104.8 cm/sec Ao max P.1 mmHg LV V1 max P.1 mmHg TR max david: 315.3 cm/sec TR max P.8 mmHg ECHO/Echo Complete Interpretation Summary The study was technically difficult. Left ventricular systolic function is normal. The estimated ejection fraction is 65 %. Trivial mitral valve insufficiency. Trivial tricuspid valve insufficiency. Right ventricular systolic pressure estimated to be 43 mmHg. No evidence for diastolic dysfunction. Ordering Physician: Carline Salazar Referring Physician: Harlan Becerra Performed By: Kimmy Cantu RDCS, RVT
[2020-09-03] MEDS: 0.9% Saline Lock 10 ML Syringe IV (06:41)
[2020-09-03] MEDS: 0.9% Normal Saline 1,000 ML 125 ML IV (06:41)
[2020-09-03 06:46] LABS: Bedside Glucose 105 mg/dL (70-110)
[2020-09-03] MEDS: Ipratropium/Albuterol Sulfate 3 ML AMPUL.NEB INHALATION ×5 (07:23→23:05)
[2020-09-03] MEDS: Budesonide Respules 0.5 MG/2 ML AMPUL.NEB. INHALATION ×2 (07:23→19:56)
[2020-09-03] MEDS: Metoprolol(XL)Succ 50 MG Tablet PO (09:27)
[2020-09-03] MEDS: Gabapentin 100 MG Capsule PO (09:27)
[2020-09-03] MEDS: guaiFENesin 1,200 MG Tablet 1200 MG PO ×2 (09:27→22:10)
[2020-09-03] MEDS: Leflunomide 10 MG TABLET PO (09:28)
[2020-09-03] MEDS: Famotidine 20 MG Tablet PO (09:28)
[2020-09-03] MEDS: Rivaroxaban 20 MG Tablet PO (09:28)
[2020-09-03] MEDS: guaiFENesin 10 ML UDC (200MG/10ML) PO ×3 (09:34→22:46)
[2020-09-03] MEDS: Ferrous Gluconate 324 MG Tablet PO ×2 (11:48→18:19)
[2020-09-03 11:55] LABS: Bedside Glucose 107 mg/dL (70-110)
[2020-09-03 12:00] LABS: Iron 30 ug/dL (50-170); Iron Binding Capacity,Total 180 ug/dL (250-450)
--- NOTE | 2020-09-03 16:04 | PN.HOSP_ITS ---
Subjective Subjective Patient was seen and examined today, she is still been hypotensive, I elected to transfuse 2 units of packed red blood cells today. Patient does not complain of any fevers or chills. Objective Data Objective Data Vital Signs: Vital Signs Temp Pulse Resp BP Pulse Ox 98.0 F 100 18 91/56 L 100 09/03/20 14:58 09/03/20 14:58 09/03/20 14:58 09/03/20 14:58 09/03/20 14:58 Oxygen Flow Rate (L/min) 3 Oxygen Delivery Method Nasal Cannula Weight: 82.3 kg Body Mass Index (BMI) 30.7 Orthostatic Vital Signs Start: 09/02/20 22:28 Freq: 0600 Status: Active Protocol: Activity Type Activity Date Activity User E-Sign Co-Sign Detail Recorded Client Recorded Date Recorded By Document 09/03/20 03:11 TM [id number] 09/03/20 03:18 TM 09/03/20 03:11 Orthostatic Vitals Standing -Blood Pressure (90/60-120/80) 77/68 L -Extremity Use Right Arm -Pulse Rate (60-100) 95 Sitting -Blood Pressure (90/60-120/80) 88/67 L -Extremity Use Right Arm -Pulse Rate (60-100) 92 Lying -Blood Pressure (90/60-120/80) 90/51 L -Extremity Use Right Arm -Pulse Rate (60-100) 81 Intake & Output: Intake and Output for Last 24 Hours 09/01/20 09/02/20 09/03/20 23:59 23:59 23:59 Intake Total 1137.5 / 1337.5 3600.00 / 3600.00 Output Total 1175 / 1175 Balance 1137.5 / 1162.5 2425.00 / 2425.00 Lab / Micro Data Result Diagrams: 09/03/20 02:56 09/03/20 02:56 Labs: Laboratory Results - last 24 hr 09/02/20 09/02/20 09/02/20 00:28 16:15 16:15 WBC 10.5 RBC 3.53 L Hgb 10.2 L Hct 35.1 L MCV 99.4 H MCH 28.9 MCHC 29.1 L RDW Std Deviation 49.8 H RDW Coeff of Lainey 13.7 Plt Count 540 H MPV 9.8 Immature Gran % (Auto) 0.700 Neut % (Auto) 72.7 H Lymph % (Auto) 16.9 L [place] % (Auto) 7.0 Eos % (Auto) 1.7 Baso % (Auto) 1.0 Absolute Neuts (auto) 7.6 Absolute Lymphs (auto) 1.78 Nucleated RBC % 0 PT 17.3 H INR 1.5 APTT 36.6 H Sodium Potassium Chloride Carbon Dioxide Anion Gap BUN Creatinine Estim Creat Clear Calc Est GFR (MDRD) Af Amer Est GFR (MDRD) Non-Af BUN/Creatinine Ratio Glucose Lactic Acid Calcium Iron TIBC Total Bilirubin AST ALT Alkaline Phosphatase Troponin I < 0.015 B-Natriuretic Peptide Total Protein Albumin Globulin Albumin/Globulin Ratio Lipase Urine Color Urine Clarity Urine pH Ur Specific [place] Urine Protein Urine Glucose (UA) Urine Ketones Urine Occult Blood Urine Nitrite Urine Bilirubin Urine Urobilinogen Ur Leukocyte Esterase Urine RBC Urine WBC Ur Squamous Epith Cells Urine Bacteria Urine Mucus POC Glucose Blood Type Antibody Screen Crossmatch 09/02/20 09/02/20 09/02/20 16:15 16:15 16:45 WBC RBC Hgb Hct MCV MCH MCHC RDW Std Deviation RDW Coeff of Lainey Plt Count MPV Immature Gran % (Auto) Neut % (Auto) Lymph % (Auto) [place] % (Auto) Eos % (Auto) Baso % (Auto) Absolute Neuts (auto) Absolute Lymphs (auto) Nucleated RBC % PT INR APTT Sodium 132 L Potassium 4.1 Chloride 97 L Carbon Dioxide 29.0 Anion Gap 6 BUN 12 Creatinine 1.11 H Estim Creat Clear Calc 44.80 Est GFR (MDRD) Af Amer 64 Est GFR (MDRD) Non-Af 53 L BUN/Creatinine Ratio 10.8 Glucose 153 H Lactic Acid 3.0 H* Calcium 8.8 Iron TIBC Total Bilirubin 0.40 AST 12 L ALT 11 L Alkaline Phosphatase 165 H Troponin I < 0.015 B-Natriuretic Peptide 57.5 Total Protein 7.9 Albumin 2.5 L Globulin 5.4 H Albumin/Globulin Ratio 0.5 L Lipase 76 Urine Color Urine Clarity Urine pH Ur Specific [place] Urine Protein Urine Glucose (UA) Urine Ketones Urine Occult Blood Urine Nitrite Urine Bilirubin Urine Urobilinogen Ur Leukocyte Esterase Urine RBC Urine WBC Ur Squamous Epith Cells Urine Bacteria Urine Mucus POC Glucose Blood Type Antibody Screen Crossmatch 09/02/20 09/02/20 09/02/20 17:55 21:04 21:44 WBC RBC Hgb Hct MCV MCH MCHC RDW Std Deviation RDW Coeff of Lainey Plt Count MPV Immature Gran % (Auto) Neut % (Auto) Lymph % (Auto) [place] % (Auto) Eos % (Auto) Baso % (Auto) Absolute Neuts (auto) Absolute Lymphs (auto) Nucleated RBC % PT INR APTT Sodium Potassium Chloride Carbon Dioxide Anion Gap BUN Creatinine Estim Creat Clear Calc Est GFR (MDRD) Af Amer Est GFR (MDRD) Non-Af BUN/Creatinine Ratio Glucose Lactic Acid Calcium Iron TIBC Total Bilirubin AST ALT Alkaline Phosphatase Troponin I < 0.015 B-Natriuretic Peptide Total Protein Albumin Globulin Albumin/Globulin Ratio Lipase Urine Color Yellow Urine Clarity Clear Urine pH 5.0 Ur Specific [place] 1.020 Urine Protein 30 H Urine Glucose (UA) Normal Urine Ketones 5 H Urine Occult Blood Negative Urine Nitrite Negative Urine Bilirubin 1 H Urine Urobilinogen 1 H Ur Leukocyte Esterase 25 H Urine RBC 0 SEEN Urine WBC 0-5 SEEN Ur Squamous Epith Cells 0 SEEN Urine Bacteria 0 SEEN Urine Mucus 2+ POC Glucose 94 Blood Type Antibody Screen Crossmatch 09/02/20 09/03/20 09/03/20 21:44 02:56 02:56 WBC 6.6 RBC 2.74 L Hgb 7.9 L Hct 27.0 L MCV 98.5 MCH 28.8 MCHC 29.3 L RDW Std Deviation 49.5 H RDW Coeff of Lainey 13.8 Plt Count 375 MPV 9.3 Immature Gran % (Auto) 0.600 Neut % (Auto) 67.0 Lymph % (Auto) 18.4 L [place] % (Auto) 9.3 Eos % (Auto) 3.2 Baso % (Auto) 1.5 H Absolute Neuts (auto) 4.4 Absolute Lymphs (auto) 1.21 Nucleated RBC % 0 PT INR APTT Sodium 140 Potassium 3.7 Chloride 106 Carbon Dioxide 29.0 Anion Gap 5 BUN 10 Creatinine 0.66 Estim Creat Clear Calc 75.34 Est GFR (MDRD) Af Amer 116 Est GFR (MDRD) Non-Af 96 BUN/Creatinine Ratio 15.1 Glucose 113 H Lactic Acid 2.5 H* Calcium 7.8 L Iron TIBC Total Bilirubin AST ALT Alkaline Phosphatase Troponin I B-Natriuretic Peptide Total Protein Albumin Globulin Albumin/Globulin Ratio Lipase Urine Color Urine Clarity Urine pH Ur Specific [place] Urine Protein Urine Glucose (UA) Urine Ketones Urine Occult Blood Urine Nitrite Urine Bilirubin Urine Urobilinogen Ur Leukocyte Esterase Urine RBC Urine WBC Ur Squamous Epith Cells Urine Bacteria Urine Mucus POC Glucose Blood Type Antibody Screen Crossmatch 09/03/20 09/03/20 09/03/20 02:56 02:56 06:42 WBC RBC Hgb Hct MCV MCH MCHC RDW Std Deviation RDW Coeff of Lainey Plt Count MPV Immature Gran % (Auto) Neut % (Auto) Lymph % (Auto) [place] % (Auto) Eos % (Auto) Baso % (Auto) Absolute Neuts (auto) Absolute Lymphs (auto) Nucleated RBC % PT INR APTT Sodium Potassium Chloride Carbon Dioxide Anion Gap BUN Creatinine Estim Creat Clear Calc Est GFR (MDRD) Af Amer Est GFR (MDRD) Non-Af BUN/Creatinine Ratio Glucose Lactic Acid Calcium Iron 30 L TIBC 180 L Total Bilirubin AST ALT Alkaline Phosphatase Troponin I < 0.015 B-Natriuretic Peptide Total Protein Albumin Globulin Albumin/Globulin Ratio Lipase Urine Color Urine Clarity Urine pH Ur Specific [place] Urine Protein Urine Glucose (UA) Urine Ketones Urine Occult Blood Urine Nitrite Urine Bilirubin Urine Urobilinogen Ur Leukocyte Esterase Urine RBC Urine WBC Ur Squamous Epith Cells Urine Bacteria Urine Mucus POC Glucose 105 Blood Type Antibody Screen Crossmatch 09/03/20 09/03/20 11:37 12:18 WBC RBC Hgb Hct MCV MCH MCHC RDW Std Deviation RDW Coeff of Lainey Plt Count MPV Immature Gran % (Auto) Neut % (Auto) Lymph % (Auto) [place] % (Auto) Eos % (Auto) Baso % (Auto) Absolute Neuts (auto) Absolute Lymphs (auto) Nucleated RBC % PT INR APTT Sodium Potassium Chloride Carbon Dioxide Anion Gap BUN Creatinine Estim Creat Clear Calc Est GFR (MDRD) Af Amer Est GFR (MDRD) Non-Af BUN/Creatinine Ratio Glucose Lactic Acid Calcium Iron TIBC Total Bilirubin AST ALT Alkaline Phosphatase Troponin I B-Natriuretic Peptide Total Protein Albumin Globulin Albumin/Globulin Ratio Lipase Urine Color Urine Clarity Urine pH Ur Specific [place] Urine Protein Urine Glucose (UA) Urine Ketones Urine Occult Blood Urine Nitrite Urine Bilirubin Urine Urobilinogen Ur Leukocyte Esterase Urine RBC Urine WBC Ur Squamous Epith Cells Urine Bacteria Urine Mucus POC Glucose 107 Blood Type O NEGATIVE Antibody Screen NEGATIVE Crossmatch See Detail Micro: Microbiology 09/02/20 19:05 Mucosa - Nasopharyngeal SARS-CoV-2 Antigen (Rapid) - Final 09/02/20 18:56 Mucosa - Nasopharyngeal Influenza Types A,B Direct FA (MELITA) - Final Radiography Diagnostic Testing: Radiology Impression Chest X-Ray 09/02/20 16:55 IMPRESSION: Chronic interstitial fibrotic changes similar in appearance to prior on 08/26/2020. Electronically Signed: Nghia Nguyen MD at 17:38 EDT Tel , Service support , Abdomen/Pelvis CT 09/02/20 17:40 IMPRESSION: 1. Mild colonic diverticulosis 2. Subserosal small uterine fibroid 3. Moderate to severe fibrotic changes are present as well as bronchiectasis, which represents worsening from the prior study. Some small consolidative areas are present presumably chronic rather than representing an acute pneumonia. Clinical correlation recommended. Electronically Signed: Fidel Ramos MD at 18:39 EDT , Service support , Echocardiogram 09/03/20 05:55 Interpretation Summary The study was technically difficult. Left ventricular systolic function is normal. The estimated ejection fraction is 65 %. Trivial mitral valve insufficiency. Trivial tricuspid valve insufficiency. Right ventricular systolic pressure estimated to be 43 mmHg. No evidence for diastolic dysfunction. Ordering Physician: Carline Salazar Referring Physician: Harlan Becerra Performed By: Kimmy Cantu, RDCS, RVT Physical Exam Const alert, oriented x3, no apparent distress and average body habitus HEENT head/scalp atraumatic and moist oral mucous membranes Head and Scalp: normocephalic Eyes PERRL, EOMs intact bilaterally and conjunctivae normal Neck no lymphadenopathy, supple and no JVD Resp normal respiratory effort, no retractions, no use of accessory muscles and clear to auscultation bilaterally Resp Narrative: Patient's breath sounds are diminished bilaterally Cardio regular rate, regular rhythm and S1 normal heart sound GI normal to inspection, nondistended, normoactive bowel sounds, soft to palpation, non-tender and non-distended Extremity normal to inspection and full ROM Skin no rashes or lesions noted, no wounds and skin turgor normal Neuro oriented x3 Sensorium / Orientation: awake and alert Psych affect normal Assessment & Plan Assessment/Plan (1) Pre-syncope: PLAN: #1 presyncope-probably secondary to orthostatic hypotension, patient will receive 2 units of packed red blood cells today, CBC will be rechecked #2 acute on chronic anemia-etiology unclear, again patient will receive 2 units of packed red blood cells #3 iron deficiency [id number] will be given Venofer today #4 chronic hypoxic respiratory failure-patient is on home O2 #5 chronic obstructive pulmonary disease #6 type 2 diabetes-continue to monitor blood sugars #7 lactic acidosis-secondary to chronic respiratory failure #8 pulmonary fibrosis #9 paroxysmal atrial fibrillation Visit Charges OBSV E&M: 52964 Subsequent observation care L3
--- NOTE | 2020-09-03 16:09 | CASEMGMT ---
SHALOM CM in to discuss RAYO form with patient. RN CM explained RAYO form, patient voiced understanding. Pt signed form and filed in chart. Pt provided with a copy of signed RAYO form. Patient had no further questions or concerns at this time.
[2020-09-03 16:46] LABS: Bedside Glucose 106 mg/dL (70-110)
[2020-09-03] MEDS: Morphine 4 MG/ML Syringe IV (18:51)
[2020-09-03 20:58] LABS: Magnesium 2.2 mg/dL (1.6-2.6)
[2020-09-03] MEDS: Gabapentin 300 MG Capsule PO (22:10)
[2020-09-03 22:21] LABS: Bedside Glucose 127 mg/dL (70-110)
[2020-09-04] VITALS (18 sets, daily range): BP systolic 126–160; BP diastolic 65–87; PULSE 95–118; RESP 16–28; TEMP 36.3–36.8; O2SAT 3–98
--- NOTE | 2020-09-04 04:06 | EKG12_ITS ---
Test Reason : TACHYCARDIA Blood Pressure : / mmHG Vent. Rate : 111 BPM Atrial Rate : 111 BPM P-R Int : 120 ms QRS Dur : 066 ms QT Int : 310 ms P-R-T Axes : 045 001 020 degrees QTc Int : 421 ms Sinus tachycardia with Premature atrial complexes Otherwise normal ECG Confirmed by YUMI NGUYEN, JERAMIE ([id number]), make up editor MIKAL MCDOWELL ([id number]) on 09/06/2020 11:07:45 AM Referred By: ARNOLD Confirmed By:JERAMIE EASON MD
[2020-09-04] MEDS: Acetaminophen 500 MG Tablet 1000 MG PO ×2 (04:13→21:27)
[2020-09-04] MEDS: guaiFENesin 10 ML UDC (200MG/10ML) PO ×2 (04:13→21:27)
[2020-09-04] MEDS: 0.9% Saline Lock 10 ML Syringe IV (04:13)
[2020-09-04] MEDS: dilTIAZem 25 MG/5 ML Vial 10 MG IV BOLUS (04:23)
--- NOTE | 2020-09-04 04:27 | NURSING ---
PATIENT HR GOING UP TO 170-180S AT TIMES, MD MADE AWARE AND ORDERED CARDIZEM BOLUS. BP IS STABLE.
[2020-09-04] MEDS: Budesonide Respules 0.5 MG/2 ML AMPUL.NEB. INHALATION ×2 (07:06→19:45)
[2020-09-04] MEDS: Ipratropium/Albuterol Sulfate 3 ML AMPUL.NEB INHALATION ×3 (07:06→19:36)
--- NOTE | 2020-09-04 07:44 | NURSING ---
hr 170 when up to br this am. dr liu aware and will see pt when rounds this am pt in bed with usual sob but no light headedness reported when up
[2020-09-04 08:16] LABS: Absolute Lymphocyte Count 1.62 X10^3/uL (0.83-4.51); Absolute Neutrophil Count 5.8 X10^3/uL (2.0-7.7); Basophil# 0.11 X10^3/uL; Basophil% 1.3 % (0-1); Eosinophil# 0.35 X10^3/uL; Hematocrit 37.5 % (37-47); Hemoglobin 10.8 g/dL (12.0-15.0); Lymphocyte # 1.62 X10^3/ul (0.83-4.51); Lymphocyte % 18.6 % (19-41); Mean Corp Hgb Conc 28.8 g/dL (32-36); Mean Corpuscular Hgb 28.2 pg (27.0-32.0); Mean Corpuscular Volume 97.9 fL (81-99); Mean Platelet Vol. 9.3 fl (6.2-12.0); Monocyte# 0.79 X10^3/uL; Monocyte% 9.1 % (0-10); NRBC Flagged by Analyzer 0 % (0-5); Neutrophil # 5.79 X10^3/uL (2.7-7.7); Neutrophil % 66.4 % (47-70); Platelet Count 380 K/mm3 (150-450); RBC Distribution Width CV 16.5 % (11.6-14.6); RBC Distribution Width SD 59.8 fl (35.1-43.9); Red Blood Count 3.83 M/mm3 (4.2-5.4); White Blood Count 8.7 K/mm3 (4.4-11.0)
[2020-09-04] MEDS: Leflunomide 10 MG TABLET PO (08:56)
[2020-09-04] MEDS: Gabapentin 100 MG Capsule PO (08:56)
[2020-09-04] MEDS: guaiFENesin 1,200 MG Tablet 1200 MG PO ×2 (08:56→21:16)
[2020-09-04] MEDS: Famotidine 20 MG Tablet PO (08:57)
[2020-09-04] MEDS: Metoprolol(XL)Succ 50 MG Tablet PO (08:57)
[2020-09-04 11:36] LABS: Bedside Glucose 109 mg/dL (70-110)
[2020-09-04 11:46] LABS: Bedside Glucose 116 mg/dL (70-110)
[2020-09-04] MEDS: Ferrous Gluconate 324 MG Tablet PO ×2 (11:53→16:35)
[2020-09-04] MEDS: Metoprolol(XL)Succ 25 MG Tablet PO (15:04)
[2020-09-04] MEDS: Rivaroxaban 20 MG Tablet PO (16:35)
[2020-09-04 16:40] LABS: Bedside Glucose 118 mg/dL (70-110)
--- NOTE | 2020-09-04 16:55 | PCM.PN.HOSP ---
Subjective Subjective Patient was seen and examined today, she complains of fatigue, I gave her Venofer today, her diet was advanced today, she has no complaints of any abdominal pain today. Hemoglobin today was 10.8. Patient had an episode of tachycardia early this morning and last night, it was felt that she might be in atrial fib. Objective Data Objective Data Vital Signs: Vital Signs Temp Pulse Resp BP Pulse Ox 97.8 F 105 H 20 H 132/76 H 98 09/04/20 14:00 09/04/20 15:04 09/04/20 14:00 09/04/20 15:04 09/04/20 15:35 Oxygen Flow Rate (L/min) 3 Oxygen Delivery Method Nasal Cannula Weight: 82.3 kg Body Mass Index (BMI) 30.7 Orthostatic Vital Signs Start: 09/02/20 22:28 Freq: 0600 Status: Active Protocol: Activity Type Activity Date Activity User E-Sign Co-Sign Detail Recorded Client Recorded Date Recorded By Document 09/04/20 11:00 [id number] 09/04/20 11:24 09/04/20 11:00 Orthostatic Vitals Standing -Blood Pressure (90/60-120/80) 146/65 H -Extremity Use Right Arm -Pulse Rate (60-100) 111 H Sitting -Blood Pressure (90/60-120/80) 148/74 H -Extremity Use Right Arm -Pulse Rate (60-100) 103 H Lying -Blood Pressure (90/60-120/80) 133/76 H -Extremity Use Right Arm -Pulse Rate (60-100) 95 Intake & Output: Intake and Output for Last 24 Hours 09/02/20 09/03/20 09/04/20 23:59 23:59 23:59 Intake Total 1137.5 / 1337.5 4900.00 / 4900.00 1240 / 1240 Output Total 2025 / 2525 950 / 950 Balance 1137.5 / 1162.5 2875.00 / 2375.00 290 / 290 Lab / Micro Data Result Diagrams: 09/04/20 08:04 09/03/20 02:56 Labs: Laboratory Results - last 24 hr 09/03/20 09/03/20 09/03/20 02:56 12:18 22:07 WBC RBC Hgb Hct MCV MCH MCHC RDW Std Deviation RDW Coeff of Lainey Plt Count MPV Immature Gran % (Auto) Neut % (Auto) Lymph % (Auto) [place] % (Auto) Eos % (Auto) Baso % (Auto) Absolute Neuts (auto) Absolute Lymphs (auto) Nucleated RBC % Magnesium 2.2 POC Glucose 127 H Blood Type O NEGATIVE Antibody Screen NEGATIVE Crossmatch See Detail 09/04/20 09/04/20 09/04/20 06:27 08:04 11:22 WBC 8.7 RBC 3.83 L Hgb 10.8 L Hct 37.5 MCV 97.9 MCH 28.2 MCHC 28.8 L RDW Std Deviation 59.8 H RDW Coeff of Lainey 16.5 H Plt Count 380 MPV 9.3 Immature Gran % (Auto) 0.600 Neut % (Auto) 66.4 Lymph % (Auto) 18.6 L [place] % (Auto) 9.1 Eos % (Auto) 4.0 Baso % (Auto) 1.3 H Absolute Neuts (auto) 5.8 Absolute Lymphs (auto) 1.62 Nucleated RBC % 0 Magnesium POC Glucose 109 116 H Blood Type Antibody Screen Crossmatch 09/04/20 16:33 WBC RBC Hgb Hct MCV MCH MCHC RDW Std Deviation RDW Coeff of Lainey Plt Count MPV Immature Gran % (Auto) Neut % (Auto) Lymph % (Auto) [place] % (Auto) Eos % (Auto) Baso % (Auto) Absolute Neuts (auto) Absolute Lymphs (auto) Nucleated RBC % Magnesium POC Glucose 118 H Blood Type Antibody Screen Crossmatch Micro: Microbiology 09/02/20 19:05 Mucosa - Nasopharyngeal SARS-CoV-2 Antigen (Rapid) - Final 09/02/20 18:56 Mucosa - Nasopharyngeal Influenza Types A,B Direct FA (MELITA) - Final Physical Exam Const alert, oriented x3, no apparent distress and average body habitus General Appearance: cooperative HEENT normocephalic, head/scalp atraumatic and moist oral mucous membranes; Negative for hearing grossly normal bilaterally or oropharynx normal Eyes PERRL, EOMs intact bilaterally and conjunctivae normal Neck no lymphadenopathy, supple and no JVD Resp normal respiratory effort, no retractions, no use of accessory muscles and clear to auscultation bilaterally Resp Narrative: Patient's breath sounds are diminished bilaterally Auscultation: crackles, rhonchi and wheezes throughout Cardio regular rate, regular rhythm, S1 normal heart sound, S2 normal heart sound and no murmurs GI normal to inspection, nondistended, normoactive bowel sounds, soft to palpation, non-tender and non-distended GI Narrative: obese Extremity normal to inspection, full ROM and no clubbing, cyanosis or edema Skin no rashes or lesions noted, no wounds and skin turgor normal Neuro oriented x3, CN's II-XII intact bilaterally, no focal motor deficits and no sensory deficits noted Sensorium / Orientation: awake and alert Psych affect normal Assessment & Plan Assessment/Plan (1) Pre-syncope: PLAN: #1 presyncope-probably secondary to orthostatic hypotension, patient's blood pressure will continue to be monitored #2 acute on chronic anemia-etiology unclear, patient will receive Venofer today #3 iron deficiency [id number] will be given Venofer today #4 chronic hypoxic respiratory failure-patient is on home O2 #5 chronic obstructive pulmonary disease #6 type 2 diabetes-continue to monitor blood sugars #7 lactic acidosis-secondary to chronic respiratory failure #8 pulmonary fibrosis #9 paroxysmal atrial fibrillation #10 tachycardia-I have decided to increase the patient's beta-ruby today Visit Charges OBSV E&M: 57888 Subsequent observation care L3
[2020-09-04] MEDS: Gabapentin 300 MG Capsule PO (21:16)
[2020-09-04 22:11] LABS: Bedside Glucose 90 mg/dL (70-110)
[2020-09-05] VITALS (17 sets, daily range): BP systolic 97–138; BP diastolic 49–97; PULSE 81–103; RESP 16–24; TEMP 36.5–36.9; O2SAT 93–99; BMI 30.7
[2020-09-05] MEDS: guaiFENesin 10 ML UDC (200MG/10ML) PO (04:38)
[2020-09-05 06:11] LABS: Bedside Glucose 88 mg/dL (70-110)
[2020-09-05] MEDS: Ipratropium/Albuterol Sulfate 3 ML AMPUL.NEB INHALATION ×2 (07:00→13:15)
[2020-09-05] MEDS: Budesonide Respules 0.5 MG/2 ML AMPUL.NEB. INHALATION (07:00)
[2020-09-05] MEDS: Ondansetron ODT 4 MG Tablet PO (08:40)
[2020-09-05] MEDS: Gabapentin 100 MG Capsule PO (08:41)
[2020-09-05] MEDS: Leflunomide 10 MG TABLET PO (08:41)
[2020-09-05] MEDS: Pantoprazole Sodium 40 MG Tablet PO (08:41)
[2020-09-05] MEDS: guaiFENesin 1,200 MG Tablet 1200 MG PO (08:41)
[2020-09-05] MEDS: Metoprolol(XL)Succ 25 MG Tablet 75 MG PO (08:44)
--- NOTE | 2020-09-05 10:48 | CON.PCM_ITS ---
Assessment & Plan Assessment/Plan (1) Abdominal cramping: PLAN: Patient is a pleasant 65 y/o F who is not in any acute abdominal distress. She has recently had upper and lower scopes in September 2019. Upper scope did demonstrate gastritis and she was essentially treated for gastritis. She has since stopped that medication. She has restarted Pepcid during this hospitalization. Possible gastritis contributing to her symptoms. She has not completed an upper GI series. I have discussed this patient with Dr. Melvin. Dr. Melvin will plan to perform an EGD to evaluate. No biopsies will be obtained due to patient's Xarelto has not been held. Procedure details, risks and benefits have been discussed with the patient. Patient and her have had the opportunity to ask and have questions answered. She is currently NPO. Her last dose of Xarelto was yesterday. She has had both her COVID vaccines. Patient will also be switched from oral PPI to IV. (2) Nausea: (3) Chronic anemia: (4) Lack of appetite: HPI Consult Data Date of Consult: 09/05/20 HPI Narrative HPI Narrative: BOBBY FLORES, is a 65 F who presents to the ED on 09/02/20 with abdominal cramping, nausea, shortness of breath. Patient was being evaluated by her PCP after a an ED visit last week. Patient stated she developed abdominal cramping and proceeded to the bathroom. She noted feeling hot and sweaty and short of breath. She called for her to come get her. She was taken back to the exam room where the squad was called. She was transported to [facility] ED where she was admitted. Patient states she has been having these ongoing symptoms of abdominal cramping and nausea for 3 weeks. She notes having her 2nd COVID vaccine and then developing her current symptoms 2 weeks later. She notes having COPD and depends on oxygen at home 24 hours. She states her appetite was pretty well normal prior to her current symptoms 3 weeks ago. She states yesterday she was feeling well. She had her diet increased to liquids which went well yesterday. Today she had jello and immediately became nauseated and had abdominal cramping. She had a solid BM which made her feel better and the another urgent liquidy diarrhea after that. She continues to note lower abdominal cramping however not as intense. Patient stated her stools are black however she is on an iron supplement at home and has been getting iron infusions here. She was also placed on pepcid here in the hospital. She notes having a previous upper and lower scope in September [address] Ruiz at [place] for iron deficiency anemia. Findings included gastritis, esophagitis, and tubular adenoma of cecum. She was placed on a PPI for 3 months and then she stopped this medication. She does note heartburn/reflux at home. She had a CT scan of the ab/pel which was unremarkable for acute abdominal pathology. She was noted to have a decrease in Hgb on 09/03 at 7.9. She received 2 units of PRBC. Yesterday her Hgb increased to 10.8. She does not have any lab results today. Patient is on Xarelto for A. Fib. 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 She had an ECHO completed on 09/03 demonstrating mitral/tricuspid insufficiency. EF 65%. She denies chest pain. [facility] Medical History (Updated 09/05/20 @ 11:15 by Mikaela SILVA, PA-C) Abdominal cramping Anemia Atrial fibrillation Bronchitis Diabetes Former smoker GERD (gastroesophageal reflux disease) Hyperthyroidism Lack of appetite Nausea On home oxygen therapy Pneumonia Rheumatoid arthritis Home Medications acetaminophen 1,000 mg PO DAILY PRN PRN 01/30/19 [History Last Taken 09/01/20] leflunomide 10 mg PO DAILY 01/30/19 [History Last Taken 09/02/20] metformin 500 mg PO DAILY 01/30/19 [History Last Taken 09/02/20] metoprolol succinate 50 mg PO DAILY 01/30/19 [History Last Taken 09/02/20] rivaroxaban [Xarelto] 20 mg PO DAILY 01/30/19 [History Last Taken 09/01/20] gabapentin 100 mg PO DAILY 05/10/19 [History Last Taken 09/02/20] ipratropium-albuterol 3 ml INHALATION Q6H.RT 05/10/19 [History Last Taken 09/02/20] ferrous gluconate 1 tab PO BID 02/05/20 [History Last Taken 09/02/20] ondansetron HCl [Zofran] 4 mg PO Q6H #10 tab 08/27/20 [Rx Last Taken 09/02/20] budesonide 0.5 mg INHALATION BID 09/02/20 [History Last Taken 09/02/20] gabapentin 300 mg PO QHS 09/02/20 [History Last Taken 09/01/20] guaifenesin 1,200 mg PO BID 09/02/20 [History Last Taken 09/02/20] Allergy/AdvReac Type Severity Reaction Status Date / Time No Known Allergies Allergy Verified 09/02/20 16:24 Surgical History (Updated 09/02/20 @ 19:19 by Subha Santos) H/O: hysterectomy Social History (Updated 09/02/20 @ 16:[address] Pratik Andrade, DO) household members: spouse Smoking Status: Former smoker ROS Constitutional Constitutional: Reports systems reviewed and no addt'l complaints, except as documented Eyes Eyes: Reports systems reviewed and no addt'l complaints, except as documented ENT HEENT: Reports systems reviewed and no addt'l complaints, except as documented Cardiovascular Cardiovascular: Reports systems reviewed and no addt'l complaints, except as documented Respiratory/Chest Respiratory/Chest: Reports systems reviewed and no addt'l complaints, except as documented Gastrointestinal Gastrointestinal: Reports systems reviewed and no addt'l complaints, except as documented Genitourinary Genitourinary: Reports systems reviewed and no addt'l complaints, except as documented Musculoskeletal Musculoskeletal: Reports systems reviewed and no addt'l complaints, except as documented Integumentary Integumentary: Reports systems reviewed and no addt'l complaints, except as documented Neurologic Neurologic: Reports systems reviewed and no addt'l complaints, except as documented Psychiatric Psychiatric: Reports systems reviewed and no addt'l complaints, except as docum ented Endocrine Endocrinology: Reports systems reviewed and no addt'l complaints, except as documented Hematologic/Lymphatic Hematologic/Lymphatic: Reports systems reviewed and no addt'l complaints, except as documented Allergic/Immunologic Allergic/Immunologic: Reports systems reviewed and no addt'l complaints, except as documented Physical Exam Const alert, oriented x3 and no apparent distress HEENT normocephalic Eyes PERRL Neck General: normal visual inspection Thyroid: Negative for mass Lymph Lymphatic: no lymphadenopathy noted Chest Chest Narrative: Barrel chest Resp Auscultation: wheezes expiratory wheezes and throughout Cardio Rate: regular rate GI Inspection: central obesity Auscultation: normoactive bowel sounds Palpation: soft and tender epigastric, LLQ and RLQ no CVA tenderness Back/Spine no CVA tenderness Skin no rashes or lesions noted Neuro CN's II-XII intact bilaterally Psych mental status grossly normal Lab / Micro Data Result Diagrams: 09/04/20 08:04 09/03/20 02:56 Labs: Laboratory Results - last 24 hr 09/04/20 09/04/20 09/04/20 06:27 11:22 16:33 POC Glucose 109 116 H 118 H 09/04/20 09/05/20 21:32 06:09 POC Glucose 90 88 Charges/Coding Visit Charges Office Visits / Consults: 97325 IP Consult L3
[2020-09-05] MEDS: Metoprolol(XL)Succ 25 MG Tablet PO (11:15)
[2020-09-05] MEDS: 0.9% Saline Lock 10 ML Syringe IV ×2 (11:15→17:26)
--- NOTE | 2020-09-05 11:42 | CT_ITS ---
STUDY: CT ABDOMEN AND PELVIS WITH AND WITHOUT CONTRAST REASON FOR EXAM: Female, 65 years old. Hematuria, anemia RADIATION DOSAGE (If Supplied By Facility): CTDIvol = ( 22.10 ) mGy, DLP = ( 2453.13 ) mGycm TECHNIQUE: Transaxial images were obtained from the dome of the diaphragm to the symphysis pubis without oral contrast. IV 100mL Isovue-370 was administered. Sagittal and coronal images were reconstructed. Individualized dose optimization techniques were used for this CT. COMPARISON: 09/02/2020 FINDINGS: Persistent moderate to severe fibrotic changes noted in the lung bases along with bronchiectatic changes in the right middle lobe and likely early infiltrate in the right lower lobe. When compared to the previous study, there are now slightly larger bilateral pleural effusions and bibasilar atelectasis. Visualized heart is unremarkable. Normal liver. Normal gallbladder and extrahepatic biliary system. Normal spleen. Normal pancreas. Normal bilateral adrenal glands. Normal right kidney. Normal left kidney. Normal visualized stomach. Normal small intestine. Scattered colonic diverticula, no CT evidence of acute diverticulitis. The appendix is visualized and appears normal. Appendix best seen on coronal recon images 49 through 59 There is diffuse atherosclerotic calcification of the abdominal aorta, without a demonstrated aneurysm. Normal inferior vena cava. Normal retroperitoneum. Normal urinary bladder. Uterus is present, the endometrium cannot be accurately evaluated with CT. There is a stable contour abnormality suggesting likely underlying fibroid. No suspicious cystic mass or free fluid. Normal abdominal wall. There are diffuse degenerative changes of the visualized lumbar spine, and pelvis. CT/CT Abd/Pelvis W/WO Contrast IMPRESSION: Stable diverticulosis, no CT evidence of acute diverticulitis No suspicious solid organ abnormality Uterus is still present, the endometrium cannot be accurately evaluated with CT. Stable moderate to severe fibrotic changes in both lung bases along with bronchiectatic changes of the right middle lobe and likely early infiltrate in the right lower lobe. Slight increase in size of bilateral pleural effusions and bibasilar atelectasis since the previous study Electronically Signed: Neftali Chavez MD at 12:16 EDT , Service support ,
[2020-09-05 12:40] LABS: Bedside Glucose 98 mg/dL (70-110)
--- NOTE | 2020-09-05 16:29 | OP.CCLET_ITS ---
09/05/2020 Alexa Becerra Re : Upper GI endoscopy procedure for Viviana Santana Dear Hernan This procedure was performed on August. My impressions and recommendations are as follows: Impressions : - Z-line variable. - Gastritis. Biopsy is contraindicated. - Normal examined duodenum. - Small hiatal hernia. - No specimens collected. Recommendations : - [facility]. - Resume previous diet. - Use Protonix (pantoprazole) 40 mg PO daily [duration]. - Continue present medications. My findings are described in the full procedure note, which is enclosed. If I can be of further assistance, please feel free to contact me at Doctor phone number(s): , Work: . Sincerely, MD Neda Ramirez MD 09/05/2020 4:28:44 PM This report has been signed electronically.
--- NOTE | 2020-09-05 16:29 | OP.EGD_ITS ---
Patient Name: Viviana Santana Procedure Date: 09/05/2020 2:47 PM Date of : 1955 Age: 65 Procedure: Upper GI endoscopy Indications: Epigastric abdominal pain, Iron deficiency anemia Providers: Neda Melvin MD Medicines: Monitored Anesthesia Care Patient Profile: This is a 65 year old female. Complications: No immediate complications. Procedure: Pre-Anesthesia Assessment: - Prior to the procedure, a History and Physical was performed, and patient medications and allergies were reviewed. The patient's tolerance of previous anesthesia was also reviewed. The risks and benefits of the procedure and the sedation options and risks were discussed with the patient. All questions were answered, and informed consent was obtained. Prior Anticoagulants: The patient has taken Eliquis (apixaban), last dose was 1 day prior to procedure. ASA Grade Assessment: Per anesthesia. After reviewing the risks and benefits, the patient was deemed in satisfactory condition to undergo the procedure. After obtaining informed consent, the endoscope was passed under direct vision. Throughout the procedure, the patient's blood pressure, pulse, and oxygen saturations were monitored continuously. The Endoscope was introduced through the mouth, and advanced to the second part of duodenum. The upper GI endoscopy was accomplished without difficulty. The patient tolerated the procedure well. Scope In: 4:11:21 PM Scope Out: 4:15:54 PM Total Procedure Duration Time 0 hours 4 minutes 33 seconds Findings: The Z-line was variable. Mild inflammation characterized by erythema was found in the gastric antrum. Biopsy is contraindicated because the patient is taking anticoagulation medication. The examined duodenum was normal. A small hiatal hernia was present. Impression: - Z-line variable. - Gastritis. Biopsy is contraindicated. - Normal examined duodenum. - Small hiatal hernia. - No specimens collected. Recommendation: - [facility]. - Resume previous diet. - Use Protonix (pantoprazole) 40 mg PO daily [duration]. - Continue present medications. Procedure Code(s): --- Professional --- 06551, Esophagogastroduodenoscopy, flexible, transoral; diagnostic, including collection of specimen(s) by brushing or washing, when performed (separate procedure) Diagnosis Code(s): --- Professional --- K22.8, Other specified diseases of esophagus K29.70, Gastritis, unspecified, without bleeding K44.9, Diaphragmatic hernia without obstruction or gangrene R10.13, Epigastric pain D50.9, Iron deficiency anemia, unspecified CPT copyright 2017 [employer]. All rights reserved. The codes documented in this report are preliminary and upon medical biller coder review may be revised to meet current compliance requirements. MD Neda Ramirez MD 09/05/2020 4:28:44 PM This report has been signed electronically. Number of Addenda: 0 Note Initiated On: 09/05/2020 2:47 PM
--- NOTE | 2020-09-05 17:21 | PCM.DC ---
Discharge Instructions Diet Discharge Diet: 1800 Calorie Control Diet Activity Discharge Activity: Return to Normal Activity Weight Bearing Status: Full weight bearing Follow Up Care Test Results: Test results from this visit will be discussed in further detail at your follow-up appointment, if applicable. Discharge Plan Admission Admit Date/Time: 09/02/20 20:16 Primary Reason for Your Visit: near syncope, anemia Attending Provider: Navjot Richards Primary Care Provider: Alexa Becerra Consulting Providers: Neda Melvin Discharge Orders/Prescriptions Prescriptions: New metoprolol succinate 100 mg Tablet Extended Release 24 Hr 100 mg PO DAILY Qty: 30 RF: 0 omeprazole 40 mg capsule,delayed release(DR/EC) 40 mg PO DAILY Qty: 30 RF: 0 Continued leflunomide 10 MG tablet 10 mg PO DAILY RF: 0 metformin 500 MG tablet 500 mg PO DAILY RF: 0 acetaminophen 500 MG tablet 1,000 mg PO DAILY PRN PRN (Reason: Pain Or Fever) RF: 0 ipratropium-albuterol 3 ML solution for nebulization 3 ml inhalation Q6H.RT RF: 0 gabapentin 100 MG capsule 100 mg PO DAILY RF: 0 ferrous gluconate 324 MG tablet 1 tab PO BID RF: 0 ondansetron HCl [Zofran] 4 mg tablet 4 mg PO Q6H Qty: 10 RF: 0 gabapentin 300 mg capsule 300 mg PO QHS RF: 0 budesonide 0.5 mg/2 mL suspension for nebulization 0.5 mg inhalation BID RF: 0 guaifenesin 1,200 MG tablet extended release 12hr 1,200 mg PO BID RF: 0 Held Xarelto 20 MG tablet 20 mg PO DAILY RF: 0 Hold Instructions: Resume on 09/15/20. resume medication in 10 days Discontinued metoprolol succinate 50 MG tablet extended release 24 hr 50 mg PO DAILY RF: 0 Referrals / Follow Up: Alexa Becerra PA [Primary Care Provider] - In 1 Week (Get a repeat CBC performed) Disposition Disposition (needs filled in before D/C Order can be placed): Home, self care
[2020-09-05] MEDS: Ferrous Gluconate 324 MG Tablet PO (17:26)
[2020-09-05] MEDS: Acetaminophen 325 MG Tablet 650 MG PO (17:26)
[2020-09-05 17:36] LABS: Bedside Glucose 93 mg/dL (70-110)
--- NOTE | 2020-09-06 09:34 | PCM.DC.SUM ---
Providers Date of Admission: 09/02/20 Date of Discharge: 09/05/20 Primary Care Physician: RICARDO Wagner Consultations 09/05/20 09:36 Consult: General Surgery Routine Consulting Provider: Neda Melvin Reason for Consult: egd EMERGENT Consult: No MD Notified: Yes Date Notified:: 09/05/20 Time Notified: 09:36 Method of Notification: Verbal Reason For Visit: SYNCOPE Diagnosis Discharge Diagnosis (1) Abdominal cramping: Status: Acute Code(s): R10.9 - Unspecified abdominal pain (2) Nausea: Status: Acute Code(s): R11.0 - Nausea (3) Chronic anemia: Status: Chronic Code(s): D64.9 - Anemia, unspecified (4) Lack of appetite: Status: Acute Code(s): R63.0 - Anorexia Plan: #1 presyncope-probably secondary to orthostatic hypotension and tachycardia #2 acute on chronic anemia requiring blood transfusion #3 iron deficiency anemia-chronic #4 chronic hypoxic respiratory failure #5 chronic obstructive pulmonary disease #6 type 2 diabetes-continue to monitor blood sugars #7 lactic acidosis-secondary to chronic respiratory failure #8 pulmonary fibrosis #9 paroxysmal atrial fibrillation #10 tachycardia-sinus #11 gastritis Medications at Discharge Home Medications Xarelto 20 mg PO DAILY 01/30/19 acetaminophen 1,000 mg PO DAILY PRN PRN 01/30/19 leflunomide 10 mg PO DAILY 01/30/19 metformin 500 mg PO DAILY 01/30/19 gabapentin 100 mg PO DAILY 05/10/19 ipratropium-albuterol 3 ml INHALATION Q6H.RT 05/10/19 ferrous gluconate 1 tab PO BID 02/05/20 ondansetron HCl [Zofran] 4 mg PO Q6H #10 tab 08/27/20 budesonide 0.5 mg INHALATION BID 09/02/20 gabapentin 300 mg PO QHS 09/02/20 guaifenesin 1,200 mg PO BID 09/02/20 metoprolol succinate 100 mg PO DAILY #30 tab 09/05/20 omeprazole 40 mg PO DAILY #30 cap 09/05/20 Hospital Course Operations None Procedures 2-D Echocardiogram and EGD Summary of Care Provided Minutes Spent on Discharge: 30 Hospital Course: This 65-year-old white female was seen in the emergency room at [facility] after having a presyncopal episode in her physician's office while she was there for an examination. Work-up in the emergency room included a chest x-ray which showed evidence of pulmonary fibrosis, blood work showed an elevated lactic acid, white count was normal, patient was not hypotensive, CT of the abdomen pelvis showed no acute findings, there was an attempt to get orthostatic blood pressures in the emergency room and patient could not stand. Patient's pulse rate was noted to be tachycardic at 128, there is no evidence of atrial fib however. Labs were obtained, CBC revealed hemoglobin of 10.2, patient sodium was 132, creatinine was 1.11. Patient's troponin was unremarkable. Patient was placed into observation status on PCU, repeat labs revealed a drop in her hemoglobin to 7.9, the exact etiology of this was unclear, serum iron was obtained and showed a low iron level, patient was given a blood transfusion during her hospitalization and her Xarelto was held. Patient underwent a EGD due to persistent complaints of abdominal discomfort, the EGD was remarkable for some mild gastritis. CT of the abdomen and pelvis was obtained and did not show any abnormality. Patient's Toprol-XL was increased due to tachycardia. On 09/05/2020, patient was seen and examined: On examination she appeared older than her stated age, she does not appear to be in any distress. Vital signs as documented. Skin warm and dry and without overt rashes. Neck without JVD, thyroid appears normal, trachea is midline, neck is supple. Lungs clear, normal air movement was noted. Heart exam notable for regular rhythm, normal sounds and absence of murmurs, rubs or gallops. Abdomen unremarkable and without evidence of organomegaly, masses, or abdominal aortic enlargement, bowel sounds are present in all 4 quadrants, no abdominal tenderness was noted. Extremities nonedematous, no cyanosis was noted, no clubbing was noted. Neuro: Cranial nerves II through XII are grossly intact, no focal motor deficits were noted, sensation to light touch and pinprick is intact, motor exam 5/5 throughout. Psych: Patient is alert and oriented x3, she does not appear anxious or depressed, she does not appear agitated. Patient was felt to be stable for discharge on 09/05/2020. ABG / Lab / Microbiology Data Result Diagrams: 09/04/20 08:04 09/03/20 02:56 Laboratory: Laboratory Results - last 24 hr 09/05/20 09/05/20 12:38 17:17 POC Glucose 98 93 Microbiology: Microbiology 09/02/20 19:05 Mucosa - Nasopharyngeal SARS-CoV-2 Antigen (Rapid) - Final 09/02/20 18:56 Mucosa - Nasopharyngeal Influenza Types A,B Direct FA (MELITA) - Final Radiography Diagnostic Testing: Radiology Impression Abdomen/Pelvis CT 09/05/20 11:42 IMPRESSION: Stable diverticulosis, no CT evidence of acute diverticulitis No suspicious solid organ abnormality Uterus is still present, the endometrium cannot be accurately evaluated with CT. Stable moderate to severe fibrotic changes in both lung bases along with bronchiectatic changes of the right middle lobe and likely early infiltrate in the right lower lobe. Slight increase in size of bilateral pleural effusions and bibasilar atelectasis since the previous study Electronically Signed: Neftali Chavez MD at 12:16 EDT , Service support , D/C Instructions Discharge Diet: 1800 Calorie Control Diet Discharge Activity: Return to Normal Activity Weight Bearing Status: Full weight bearing Meaningful Use Info Meaningful Use Diagnoses (Choose all that apply): None applicable Discharge Plan Admission Admit Date/Time: 09/02/20 20:16 Primary Reason for Your Visit: near syncope, anemia Attending Provider: Navjot Richards Primary Care Provider: Alexa Becerra Consulting Providers: Neda Melvin Discharge Orders/Prescriptions Prescriptions: New metoprolol succinate 100 mg Tablet Extended Release 24 Hr 100 mg PO DAILY Qty: 30 RF: 0 omeprazole 40 mg capsule,delayed release(DR/EC) 40 mg PO DAILY Qty: 30 RF: 0 Continued leflunomide 10 MG tablet 10 mg PO DAILY RF: 0 metformin 500 MG tablet 500 mg PO DAILY RF: 0 acetaminophen 500 MG tablet 1,000 mg PO DAILY PRN PRN (Reason: Pain Or Fever) RF: 0 ipratropium-albuterol 3 ML solution for nebulization 3 ml inhalation Q6H.RT RF: 0 gabapentin 100 MG capsule 100 mg PO DAILY RF: 0 ferrous gluconate 324 MG tablet 1 tab PO BID RF: 0 ondansetron HCl [Zofran] 4 mg tablet 4 mg PO Q6H Qty: 10 RF: 0 gabapentin 300 mg capsule 300 mg PO QHS RF: 0 budesonide 0.5 mg/2 mL suspension for nebulization 0.5 mg inhalation BID RF: 0 guaifenesin 1,200 MG tablet extended release 12hr 1,200 mg PO BID RF: 0 Held Xarelto 20 MG tablet 20 mg PO DAILY RF: 0 Hold Instructions: Resume on 09/15/20. resume medication in 10 days Discontinued metoprolol succinate 50 MG tablet extended release 24 hr 50 mg PO DAILY RF: 0 Referrals / Follow Up: Alexa Becerra PA [Primary Care Provider] - In 1 Week (Get a repeat CBC performed) Disposition Disposition (needs filled in before D/C Order can be placed): Home, self care Visit Charges OBSV E&M: 19527 Observation care discharge
== END 2020-09-05 18:43 | disposition home or self-care (01) ==
LOC: ED 19:08 → PCU 20:22
PROVIDERS: Family Medicine; Surgery; Admitting Provider Student in an Organized Health Care Education/Training Program; Emergency Provider Emergency Medicine; PCP Physician Assistant; Visit Provider Internal Medicine
PROC: 0DJ08ZZ Inspection of Upper Intestinal Tract, Via Natural or Artificial Opening Endoscopic (ICD-10-PCS; CPT 43235; principal; 2020-09-05 16:00)
DX: R55 Syncope and collapse (principal); I48.0 Paroxysmal atrial fibrillation; J44.9 Chronic obstructive pulmonary disease, unspecified; D50.9 Iron deficiency anemia, unspecified; J84.10 Pulmonary fibrosis, unspecified; J96.11 Chronic respiratory failure with hypoxia; E11.9 Type 2 diabetes mellitus without complications; M06.9 Rheumatoid arthritis, unspecified; G47.30 Sleep apnea, unspecified; E05.90 Thyrotoxicosis, unspecified without thyrotoxic crisis or storm; R00.0 Tachycardia, unspecified; J84.9 Interstitial pulmonary disease, unspecified; E87.2 Acidosis; Z79.01 Long term (current) use of anticoagulants; Z79.899 Other long term (current) drug therapy; Z79.84 Long term (current) use of oral hypoglycemic drugs; Z87.891 Personal history of nicotine dependence; Z99.81 Dependence on supplemental oxygen; K21.9 Gastro-esophageal reflux disease without esophagitis; K29.70 Gastritis, unspecified, without bleeding; K44.9 Diaphragmatic hernia without obstruction or gangrene; R06.02 Shortness of breath
CPT/HCPCS: 43239; 36415; 36430; 71045; 74177; 74178; 80048; 80053; 81001; 82962; 83540; 83550; 83605; 83690; 83735; 83880; 84484; 85025; 85610; 85730; 86850; 86900; 86901; 86920; 86922; 87426; 87804; 93005; 93306; 94640; 96361; 96365; 96366; 96367; 96375; 96376; 97162; 97166; 97530; 97535; 99218; 99285; J7030; J7040; J7050; J7120; P9016; Q9967; A4216; G0378; J2405; J2916

== ENCOUNTER 2020-09-11 10:32 | Inpatient (IN) | payer MEDICARE, MEDICAID, SELFPAY ==
[2020-09-05 14:17] VITALS: BMI 30.7
[2020-09-11] VITALS (16 sets, daily range): BP systolic 101–145; BP diastolic 55–82; PULSE 95–230; RESP 16–30; TEMP 35.6–36.9; O2SAT 94–100; BMI 28.8; BMI 31.2
--- NOTE | 2020-09-11 10:47 | EKG12_ITS ---
Test Reason : SOB Blood Pressure : / mmHG Vent. Rate : 212 BPM Atrial Rate : 208 BPM P-R Int : 000 ms QRS Dur : 060 ms QT Int : 212 ms P-R-T Axes : 000 006 137 degrees QTc Int : 398 ms Supraventricular tachycardia Nonspecific ST abnormality Abnormal ECG Confirmed by YUMI NGUYEN, JERAMIE ([id number]), editor school photograph MIKAL MCDOWELL ([id number]) on 09/12/2020 11:29:46 AM Referred By: RADHA Confirmed By:JERAMIE EASON MD
[2020-09-11] MEDS: Ipratropium/Albuterol Sulfate 3 ML AMPUL.NEB INHALATION (10:55)
[2020-09-11] MEDS: Adenosine 6 MG/2 ML Syringe IV (11:05)
--- NOTE | 2020-09-11 11:05 | ED.RN ---
pt in SVT at 215. dr ayala at the bedside. vagal maneuvers tried, unsuccessfully. 6mg of adenosine given at this time. pt still in SVT at 222. dr ayala still at bedside.
[2020-09-11 11:08] LABS: Absolute Lymphocyte Count 1.91 X10^3/uL (0.83-4.51); Absolute Neutrophil Count 7.5 X10^3/uL (2.0-7.7); Basophil# 0.17 X10^3/uL; Basophil% 1.6 % (0-1); Eosinophil# 0.35 X10^3/uL; Eosinophils% 3.2 % (0-5); Hematocrit 44.6 % (37-47); Hemoglobin 13.1 g/dL (12.0-15.0); Lymphocyte # 1.91 X10^3/ul (0.83-4.51); Lymphocyte % 17.5 % (19-41); Mean Corp Hgb Conc 29.4 g/dL (32-36); Mean Corpuscular Volume 95.3 fL (81-99); Mean Platelet Vol. 10.1 fl (6.2-12.0); Monocyte# 0.86 X10^3/uL; Monocyte% 7.9 % (0-10); NRBC Flagged by Analyzer 0 % (0-5); Neutrophil # 7.49 X10^3/uL (2.7-7.7); Neutrophil % 68.7 % (47-70); Platelet Count 389 K/mm3 (150-450); RBC Distribution Width CV 15.8 % (11.6-14.6); RBC Distribution Width SD 54.2 fl (35.1-43.9); Red Blood Count 4.68 M/mm3 (4.2-5.4); White Blood Count 10.9 K/mm3 (4.4-11.0)
[2020-09-11] MEDS: dilTIAZem 25 MG/5 ML Vial 20 MG IV BOLUS (11:10)
--- NOTE | 2020-09-11 11:10 | ED.RN ---
pt's hr of 222, 20mg iv cardizem given. pt's hr now 120. pt is comfortable. rn will continue to monitor.
[2020-09-11] MEDS: Ondansetron 4 MG/2 ML Vial IV (11:18)
[2020-09-11] MEDS: 0.9% Normal Saline 1,000 ML 1000 ML IV (11:18)
[2020-09-11] MEDS: MethylPREDNISolone 125 MG/2 ML Vial IV (11:18)
--- NOTE | 2020-09-11 11:25 | RAD_ITS ---
STUDY: X-RAY CHEST REASON FOR EXAM: Female, 65 years old. SOB TECHNIQUE: Single AP portable view of the chest. COMPARISON: Comparison is made with prior study dated 09/02/2020. FINDINGS: EKG lead is are seen. Stable diffuse increased markings in both lungs more prominent in the right lung in keeping with chronic interstitial fibrosis. There is no demonstrated pleural abnormality. Normal size heart. Normal mediastinum and jessica. Normal visualized pulmonary arteries. Normal visualized aortic arch and descending thoracic aorta. There are diffuse degenerative changes of the visualized thoracic spine. Normal visualized ribs, clavicles, and shoulders. There is no demonstrated abnormality of the visualized soft tissue structures of the upper abdomen. RAD/Chest 1 View (Portable) IMPRESSION: Stable examination. Findings in keeping with chronic interstitial fibrosis. Electronically Signed: Porter Vallecillo MD at 11:57 EDT , Service support ,
[2020-09-11 11:27] LABS: ALB/GLOB Ratio 0.5 RATIO (0.9-2.4); AST(SGOT) 21 U/L (15-37); Alanine Aminotransfer ALT/SGPT 9 U/L (13-56); Albumin, Serum 2.2 g/dL (3.2-5.0); Alkaline Phosphatase 142 U/L (45-117); Anion Gap 7 (5-15); BUN 13 mg/dL (7-18); BUN/Creat Ratio 17.4 RATIO (10-20); Calcium,Total 8.8 mg/dL (8.5-10.1); Chloride 102 mmol/L (98-107); Creatinine, Serum 0.75 mg/dL (0.55-1.02); EST Glomerular Filtration Rate 83 mL/min (>60); Est Glom Filt Rate - Afr Amer 101 mL/min (>60); Globulin 4.8 g/dL (2.2-4.2); Glucose 108 mg/dL (74-106); Lipase 66 U/L (73-393); Potassium 3.8 mmol/L (3.5-5.1); Sodium Level 137 mmol/L (136-145)
--- NOTE | 2020-09-11 11:30 | EKG12_ITS ---
Test Reason : SOB Blood Pressure : / mmHG Vent. Rate : 119 BPM Atrial Rate : 119 BPM P-R Int : 146 ms QRS Dur : 064 ms QT Int : 302 ms P-R-T Axes : 051 -04 046 degrees QTc Int : 424 ms Sinus tachycardia Otherwise normal ECG Confirmed by YUMI NGUYEN, JERAMIE ([id number]), story editor MIKAL MCDOWELL ([id number]) on 09/12/2020 11:29:12 AM Referred By: RADHA Confirmed By:JERAMIE EASON MD
--- NOTE | 2020-09-11 11:50 | EDS_ITS ---
HPI History of Present Illness Chief Complaint: Hypotension Narrative Narrative: 65-year-old female reports that she began feeling lightheaded this morning. It is worse when she stands. She has not passed out. She reports that she has had diarrhea multiple times per day since being discharged from the hospital 6 days ago. States the diarrhea is yellow. There is no blood in her stools or black tarry stools. She also reports she has epigastric abdominal pain that is an aching pain is 10 at worst and 7-10 currently. Nothing makes this better or worse. She said nausea without vomiting. Patient reports that she has a chronic cough that is unchanged. However, she has shortness of breath that is chronic and increased today. She reports that it is mild now and moderate at worst. She is not taken breathing treatment this morning. She denies any fever or chills. Does complain of a mild headache. [facility] Medical History (Updated 09/11/20 @ 14:22 by Jacquelin Parada) Abdominal cramping Anemia Asthma Atrial fibrillation Bronchitis Chest pain Diabetes Former smoker GERD (gastroesophageal reflux disease) Hypertension Hyperthyroidism Irregular heart beat Lack of appetite Nausea On home oxygen therapy Pneumonia Rheumatoid arthritis Home Medications Xarelto 20 mg PO DAILY 01/30/19 [History Last Taken 09/01/20] acetaminophen 1,000 mg PO DAILY PRN PRN 01/30/19 [History Last Taken 09/10/20] leflunomide 10 mg PO DAILY 01/30/19 [History Last Taken 09/10/20] gabapentin 100 mg PO DAILY 05/10/19 [History Last Taken 09/10/20] ipratropium-albuterol 3 ml INHALATION Q6H.RT 05/10/19 [History Last Taken 09/10/20] ferrous gluconate 1 tab PO BID 02/05/20 [History Last Taken 09/10/20] ondansetron HCl [Zofran] 4 mg PO Q6H #10 tab 08/27/20 [Rx Last Taken 09/10/20] budesonide 0.5 mg INHALATION BID 09/02/20 [History Last Taken 09/10/20] gabapentin 300 mg PO QHS 09/02/20 [History Last Taken 09/10/20] guaifenesin 1,200 mg PO BID 09/02/20 [History Last Taken 09/10/20] metoprolol succinate 100 mg PO DAILY #30 tab 09/05/20 [Rx Last Taken 09/10/20] omeprazole 40 mg PO DAILY #30 cap 09/05/20 [Rx Last Taken 09/10/20] metformin 500 mg PO DAILY 09/11/20 [History Last Taken 09/10/20] Allergy/AdvReac Type Severity Reaction Status Date / Time No Known Allergies Allergy Verified 09/02/20 16:24 Surgical History H/O: hysterectomy Social History household members: spouse Smoking Status: Former smoker ROS ROS ED Constitutional Constitutional ED: Denies chills, fever(s) or sweats Eyes Eyes: Denies change in vision ENT ENT ED: Denies sore throat Cardiovascular Cardiovascular: Denies chest pain Respiratory/Chest Respiratory/Chest: Reports cough and dyspnea; Denies dyspnea on exertion Gastrointestinal Gastrointestinal: Reports abdominal pain, diarrhea, nausea and vomiting; Denies melena Genitourinary Genitourinary ED: Denies dysuria or urinary frequency Musculoskeletal Musculoskeletal: Denies myalgias Integumentary Denies rash Neurologic Neurologic: Denies headache(s), paresthesias or weakness EXAM Physical Exam Const Vital Signs: 09/11/20 10:33 09/11/20 10:35 09/11/20 10:56 Temperature 96.1 F L 96.1 F L Temperature Source Temporal Temporal Pulse Rate 129 H 129 H 230 H Pulse Rate [Lying] Pulse Rate [Sitting] Pulse Rate [Standing] Respiratory Rate 24 H 24 H 30 H Respiratory Effort Respiratory Depth Respiratory Pattern Blood Pressure 109/64 109/64 Blood Pressure [Lying] Blood Pressure [Sitting] Blood Pressure [Standing] Blood Pressure Mean 79 79 Blood Pressure Mean [Lying] Blood Pressure Mean [Sitting] Blood Pressure Mean [Standing] Pulse Ox 94 94 98 Oxygen Delivery Method Nasal Cannula Nasal Cannula Nasal Cannula Oxygen Flow Rate (L/min) 3 3 3 09/11/20 11:27 09/11/20 11:33 09/11/20 12:00 Temperature 96.1 F L Temperature Source Temporal Pulse Rate 105 H 109 H Pulse Rate [Lying] Pulse Rate [Sitting] Pulse Rate [Standing] Respiratory Rate 24 H 16 Respiratory Effort Short of Breath Respiratory Depth Normal Respiratory Pattern Normal Blood Pressure 122/78 H 122/78 H Blood Pressure [Lying] Blood Pressure [Sitting] Blood Pressure [Standing] Blood Pressure Mean 92 92 Blood Pressure Mean [Lying] Blood Pressure Mean [Sitting] Blood Pressure Mean [Standing] Pulse Ox 96 99 Oxygen Delivery Method Nasal Cannula Nasal Cannula Room Air Oxygen Flow Rate (L/min) 3 3 09/11/20 12:14 09/11/20 12:33 09/11/20 12:47 Temperature 96.1 F L 98.1 F Temperature Source Temporal Oral Pulse Rate 109 H 110 H Pulse Rate [Lying] 105 H Pulse Rate [Sitting] 112 H Pulse Rate [Standing] 120 H Respiratory Rate 16 20 H Respiratory Effort Respiratory Depth Respiratory Pattern Blood Pressure 122/78 H 115/55 L Blood Pressure [Lying] 114/82 H Blood Pressure [Sitting] 123/65 H Blood Pressure [Standing] 101/64 Blood Pressure Mean 92 75 Blood Pressure Mean [Lying] 92 Blood Pressure Mean [Sitting] 84 Blood Pressure Mean [Standing] 76 Pulse Ox 99 99 Oxygen Delivery Method Room Air Nasal Cannula Oxygen Flow Rate (L/min) 3 3 Positive well nourished and well developed General Appearance ED: well developed HEENT Reports normocephalic and head/scalp atraumatic Eyes PERRL Neck no lymphadenopathy, supple and no JVD General: Negative for tenderness Resp normal respiratory effort Resp Narrative: Bilaterally with decreased air movement. Cardio regular rhythm and no murmurs Rate: tachycardic GI normal to inspection, nondistended, normoactive bowel sounds GI Narrative: Moderate epigastric tenderness palpation. No guarding, rebound, or peritoneal signs. Palpation: soft and tender Back/Spine Back/Spine Narrative: Nontender. Extremity General Extremety ED: Negative for edema or tenderness General Extremity: Negative for edema Neuro oriented x3, CN's II-XII intact bilaterally and no sensory deficits noted Sensorium / Orientation: alert Motor Exam: strength 5/5 throughout Psych mental status grossly normal Skin no rashes or lesions noted MDM MDM Lab Data Labs: Laboratory Results - last 24 hr 09/11/20 09/11/20 09/11/20 11:00 11:00 11:00 WBC 10.9 RBC 4.68 Hgb 13.1 Hct 44.6 MCV 95.3 MCH 28.0 MCHC 29.4 L RDW Std Deviation 54.2 H RDW Coeff of Lainey 15.8 H Plt Count 389 MPV 10.1 Immature Gran % (Auto) 1.100 H Neut % (Auto) 68.7 Lymph % (Auto) 17.5 L [place] % (Auto) 7.9 Eos % (Auto) 3.2 Baso % (Auto) 1.6 H Absolute Neuts (auto) 7.5 Absolute Lymphs (auto) 1.91 Nucleated RBC % 0 D-Dimer Quant (PE/DVT) 4.55 H* Sodium 137 Potassium 3.8 Chloride 102 Carbon Dioxide 28.0 Anion Gap 7 BUN 13 Creatinine 0.75 Estim Creat Clear Calc 66.30 Est GFR (MDRD) Af Amer 101 Est GFR (MDRD) Non-Af 83 BUN/Creatinine Ratio 17.4 Glucose 108 H Calcium 8.8 Total Bilirubin 0.40 AST 21 ALT 9 L Alkaline Phosphatase 142 H Troponin I < 0.015 Total Protein 7.0 Albumin 2.2 L Globulin 4.8 H Albumin/Globulin Ratio 0.5 L Lipase 66 L TSH 09/11/20 11:00 WBC RBC Hgb Hct MCV MCH MCHC RDW Std Deviation RDW Coeff of [place] Plt Count MPV Immature Gran % (Auto) Neut % (Auto) Lymph % (Auto) [place] % (Auto) Eos % (Auto) Baso % (Auto) Absolute Neuts (auto) Absolute Lymphs (auto) Nucleated RBC % D-Dimer Quant (PE/DVT) Sodium Potassium Chloride Carbon Dioxide Anion Gap BUN Creatinine Estim Creat Clear Calc Est GFR (MDRD) Af Amer Est GFR (MDRD) Non-Af BUN/Creatinine Ratio Glucose Calcium Total Bilirubin AST ALT Alkaline Phosphatase Troponin I Total Protein Albumin Globulin Albumin/Globulin Ratio Lipase TSH 1.54 Radiography Diagnostic Testing: Radiology Impression Chest X-Ray 09/11/20 11:25 IMPRESSION: Stable examination. Findings in keeping with chronic interstitial fibrosis. Electronically Signed: Porter Vallecillo MD at 11:57 EDT , Service support , EKG Initial EKG: Attestation: I personally reviewed and interpreted this EKG as follows: Interpretation: SVT Comments: SVT at [address] depression. Prior: Changed Follow-up EKG: Attestation: I personally reviewed and interpreted this EKG as follows: Interpretation: Sinus Tachycardia Comments: Repeat EKG is sinus tachycardia [address] changes. It is unchanged from 1 week ago. Treatment and Re-Evaluation Comments:: Emergency department course: Patient was given albuterol/Atrovent aerosols and a dose of Solu-Medrol IV. Shortly thereafter she went into SVT with a rate in the 220s. Vagal maneuvers were attempted without success. Patient was given 6 mg of adenosine IV and had a transient conversion to sinus tachycardia with a rate in the 130s to 140s. She refused a larger dose of adenosine was given 20 mg of Cardizem IV. She has converted to sinus rhythm, but remains tachycardic in the 120s. Patient was given a liter of normal saline. Repeat heart rate is approximately 105. However, repeat systolic blood pressure is just over 100. Patient was given another liter of saline. Treatment plan: Patient is tachycardic she was reading borderline hypotensive. She will be discussed with hospitalist and admitted for further evaluation and treatment. Discharge Plan Dx/Rx/DC Orders Clinical Impression: COPD (chronic obstructive pulmonary disease), SVT (supraventricular tachycardia), Hypotension Disposition Disposition: Acute Care Hospital [facility] Discharge Date/Time: 09/11/20 14:03
[2020-09-11] MEDS: 0.9% Normal Saline 1,000 ML 999 ML IV (12:45)
--- NOTE | 2020-09-11 13:24 | HP.PCM.HOS_ITS ---
HPI - General General Date of Admission: 09/11/20 HPI Narrative BOBBY FLORES, is a 65 F who presents with diarrhea. Diarrhea over the past week has been green and today was pale yellow mucus. She felt dizzy upon standing, her checked BP and her systolic was in the 70s. She was advised to come in to the hospital by her PCP. She has not felt well after her 2nd Pfizer COVID- 19 shot on 07/27/2020. She was short of breath. In ED she received methylprednisolone and BDs. After the BDs, she developed SVT with HR in 220s. She received adenosine which converted her to sinus tach. She declined any further adenosine. Currently, she is in sinus tach with HR low 100s to 1-teens. Still has abdominal pain in the suprapubic region. She denies any history of prior GI symptoms . [facility] Medical History Abdominal cramping Anemia Atrial fibrillation Bronchitis Diabetes Former smoker GERD (gastroesophageal reflux disease) Hyperthyroidism Lack of appetite Nausea On home oxygen therapy Pneumonia Rheumatoid arthritis Home Medications Xarelto 20 mg PO DAILY 01/30/19 [History Last Taken 09/01/20] acetaminophen 1,000 mg PO DAILY PRN PRN 01/30/19 [History Last Taken 09/01/20] leflunomide 10 mg PO DAILY 01/30/19 [History Last Taken 09/02/20] gabapentin 100 mg PO DAILY 05/10/19 [History Last Taken 09/02/20] ipratropium-albuterol 3 ml INHALATION Q6H.RT 05/10/19 [History Last Taken 09/02/20] ferrous gluconate 1 tab PO BID 02/05/20 [History Last Taken 09/02/20] ondansetron HCl [Zofran] 4 mg PO Q6H #10 tab 08/27/20 [Rx Last Taken 09/02/20] budesonide 0.5 mg INHALATION BID 09/02/20 [History Last Taken 09/02/20] gabapentin 300 mg PO QHS 09/02/20 [History Last Taken 09/01/20] guaifenesin 1,200 mg PO BID 09/02/20 [History Last Taken 09/02/20] metoprolol succinate 100 mg PO DAILY #30 tab 09/05/20 [Rx Last Taken Unknown] omeprazole 40 mg PO DAILY #30 cap 09/05/20 [Rx Last Taken Unknown] metformin 500 mg PO DAILY 09/11/20 [History Last Taken 09/10/20] Allergy/AdvReac Type Severity Reaction Status Date / Time No Known Allergies Allergy Verified 09/02/20 16:24 Surgical History H/O: hysterectomy Social History household members: spouse Smoking Status: Former smoker ROS ROS Narrative All review of systems were negative except as mentioned above in the history of present illness and the other review of systems. Constitutional Constitutional: Denies anorexia, chills or fatigue ENT HEENT: Denies abnormal hearing Cardiovascular Cardiovascular: Denies chest pain or edema Respiratory/Chest Respiratory/Chest: Denies cough or dyspnea Gastrointestinal Gastrointestinal: Reports abdominal pain, diarrhea, loose stools and nausea; Denies vomiting Vital Signs Vital Signs Vital Signs: 09/11/20 10:33 09/11/20 10:35 09/11/20 10:56 Temperature 35.6 C L 35.6 C L Temperature Source Temporal Temporal Pulse Rate 129 H 129 H 230 H Pulse Rate [Lying] Pulse Rate [Sitting] Pulse Rate [Standing] Respiratory Rate 24 H 24 H 30 H Respiratory Effort Respiratory Depth Respiratory Pattern Blood Pressure 109/64 109/64 Blood Pressure [Lying] Blood Pressure [Sitting] Blood Pressure [Standing] Blood Pressure Mean 79 79 Blood Pressure Mean [Lying] Blood Pressure Mean [Sitting] Blood Pressure Mean [Standing] Pulse Ox 94 94 98 Oxygen Delivery Method Nasal Cannula Nasal Cannula Nasal Cannula Oxygen Flow Rate (L/min) 3 3 3 09/11/20 11:27 09/11/20 11:33 09/11/20 12:00 Temperature 35.6 C L Temperature Source Temporal Pulse Rate 105 H 109 H Pulse Rate [Lying] Pulse Rate [Sitting] Pulse Rate [Standing] Respiratory Rate 24 H 16 Respiratory Effort Short of Breath Respiratory Depth Normal Respiratory Pattern Normal Blood Pressure 122/78 H 122/78 H Blood Pressure [Lying] Blood Pressure [Sitting] Blood Pressure [Standing] Blood Pressure Mean 92 92 Blood Pressure Mean [Lying] Blood Pressure Mean [Sitting] Blood Pressure Mean [Standing] Pulse Ox 96 99 Oxygen Delivery Method Nasal Cannula Nasal Cannula Room Air Oxygen Flow Rate (L/min) 3 3 09/11/20 12:14 09/11/20 12:33 09/11/20 12:47 Temperature 35.6 C L 36.7 C Temperature Source Temporal Oral Pulse Rate 109 H 110 H Pulse Rate [Lying] 105 H Pulse Rate [Sitting] 112 H Pulse Rate [Standing] 120 H Respiratory Rate 16 20 H Respiratory Effort Respiratory Depth Respiratory Pattern Blood Pressure 122/78 H 115/55 L Blood Pressure [Lying] 114/82 H Blood Pressure [Sitting] 123/65 H Blood Pressure [Standing] 101/64 Blood Pressure Mean 92 75 Blood Pressure Mean [Lying] 92 Blood Pressure Mean [Sitting] 84 Blood Pressure Mean [Standing] 76 Pulse Ox 99 99 Oxygen Delivery Method Room Air Nasal Cannula Oxygen Flow Rate (L/min) 3 3 Weight Weight: 76.204 kg Body Mass Index (BMI) 28.8 Lab / Micro Data Attestation: I reviewed the patient's lab results. Result Diagrams: 09/11/20 11:00 09/11/20 11:00 Labs: Laboratory Results - last 24 hr 09/11/20 09/11/20 11:00 11:00 WBC 10.9 RBC 4.68 Hgb 13.1 Hct 44.6 MCV 95.3 MCH 28.0 MCHC 29.4 L RDW Std Deviation 54.2 H RDW Coeff of [place] 15.8 H Plt Count 389 MPV 10.1 Immature Gran % (Auto) 1.100 H Neut % (Auto) 68.7 Lymph % (Auto) 17.5 L [place] % (Auto) 7.9 Eos % (Auto) 3.2 Baso % (Auto) 1.6 H Absolute Neuts (auto) 7.5 Absolute Lymphs (auto) 1.91 Nucleated RBC % 0 Sodium 137 Potassium 3.8 Chloride 102 Carbon Dioxide 28.0 Anion Gap 7 BUN 13 Creatinine 0.75 Estim Creat Clear Calc 66.30 Est GFR (MDRD) Af Amer 101 Est GFR (MDRD) Non-Af 83 BUN/Creatinine Ratio 17.4 Glucose 108 H Calcium 8.8 Total Bilirubin 0.40 AST 21 ALT 9 L Alkaline Phosphatase 142 H Troponin I < 0.015 Total Protein 7.0 Albumin 2.2 L Globulin 4.8 H Albumin/Globulin Ratio 0.5 L Lipase 66 L Radiology Impression Chest X-Ray 09/11/20 11:25 IMPRESSION: Stable examination. Findings in keeping with chronic interstitial fibrosis. Electronically Signed: Porter Vallecillo MD at 11:57 EDT , Service support , Assessment & Plan Assessment/Plan (1) SVT (supraventricular tachycardia): (2) Hypotension: QUALIFIERS: Hypotension type: orthostatic hypotension Qualified Code(s): I95.1 - Orthostatic hypotension (3) Diarrhea: QUALIFIERS: Diarrhea type: unspecified type Qualified Code(s): R19.7 - Diarrhea, unspecified (4) COPD (chronic obstructive pulmonary disease): QUALIFIERS: COPD type: unspecified COPD Qualified Code(s): J44.9 - Chronic obstructive pulmonary disease, unspecified PLAN: 1. Supraventricular tachycardia * Suspect related with bronchodilators, particular with the albuterol portion of the DuoNeb. * Did convert to a sinus tach after dose of adenosine * Continue to monitor. Continue the patient metoprolol succinate. * Avoid albuterol for now. 2. Diarrhea * Has been persistent since patient's COVID-19 vaccination but now the color is changed. * We will check a C. difficile, enteric panel * Patient denies any history of gluten intolerance or insensitivity but will check a TTG IgA level * Consider loperamide if C. difficile is negative * Regular diet but holding off on wheat products as well as high fructose corn syrup. * Given the protracted nature of this GI symptoms, I doubt this is related with the COVID-19 vaccination. 3. Recent gastritis * Continue with PPI therapy 4. Hypotension * Suspect related with a dehydration given the patient's diarrhea. * I suspect patient's hemoglobin, which is 13.1, is likely hemoconcentrated as patient's hemoglobin on the was 10.8. * Will give IV fluids and monitor. 5. COPD * On exam, patient does have coarse breath sounds. * Patient did receive methylprednisolone in the emergency room. We will hold off on any additional steroids at this time. * will check D-dimer, if elevated for age, then check CTA chest 6. VTE prophylaxis with enoxaparin. Case discussed with the patient's at bedside. Visit Charges Inpatient E&M: 15720 Init Hosp L3
[2020-09-11 14:44] LABS: D-Dimer Quantitative (DVT/PE) 4.55 FEU/ug/m (0.27-0.49)
[2020-09-11] MEDS: Metoprolol(XL)Succ 100 MG Tablet PO (14:47)
[2020-09-11] MEDS: Pantoprazole Sodium 40 MG Tablet PO (14:47)
[2020-09-11 14:56] LABS: Thyroid Stim Hormone (TSH) 1.54 uIU/mL (0.358-3.74)
[2020-09-11] MEDS: 0.9% Normal Saline 1,000 ML 150 ML IV ×2 (14:56→23:12)
[2020-09-11] MEDS: 0.9% Saline Lock 10 ML Syringe IV (14:56)
--- NOTE | 2020-09-11 15:15 | CT_ITS ---
STUDY: CTA CHEST REASON FOR EXAM: Female, 65 years old. dyspnea RADIATION DOSAGE (If Supplied By Facility): CTDIvol = ( 11.27 ) mGy, DLP = ( 327.46 ) mGycm TECHNIQUE: The examination was performed with the intravenous administration of IV 100mL Isovue-370. Post-processing of the angiographic images was performed, with multiplanar reformation and 3D reconstruction. Individualized dose optimization techniques were used for this CT. COMPARISON: 09/05/2020 FINDINGS: There is limited enhancement of the main pulmonary artery and right and left pulmonary arteries. There is limited enhancement of the bilateral peripheral pulmonary arteries. There is no demonstrated pulmonary embolism. Normal thoracic aorta and visualized great vessels. There is no demonstrated aortic dissection. Normal heart and pericardium. Normal mediastinum. Normal hilar regions. Diffuse abnormality throughout the lungs with moderate central, cylindrical abdominal bronchiectasis. Interlobular linear dominant fibrotic thickening with superimposed areas of parenchymal consolidation involving the bilateral lower lobes and portions of the right upper lobe. Noncalcified subpleural nodule of the right upper lobe measures 3.4 mm, new since 2010. Normal chest wall structures. Normal osseous structures. Normal visualized upper abdomen. CT/CTA Chest W/WO Contrast IMPRESSION: 1. Limited by inadequate pulmonary artery enhancement. No obvious central or segmental pulmonary embolism. 2. Extensive interstitial fibrotic lung disease with bronchiectasis (significantly worse since 2010). 3. Localized parenchymal airspace disease of the bilateral lower lobes and segments of the right upper lobe could represent infection/pneumonia, cryptogenic organizing pneumonia, pulmonary vascularities. Electronically Signed: Reinaldo Dumont MD ([place]) at 16:35 EDT , Service support ,
[2020-09-11] MEDS: levoFLOXacin IV 750 MG/150 ML BAG 100 MG IV (16:47)
[2020-09-11 18:00] LABS: Probe Check PASS
[2020-09-11 18:01] LABS: M R Staph aureus DNA By PCR POSITIVE (Negative)
[2020-09-11] MEDS: Budesonide Respules 0.5 MG/2 ML AMPUL.NEB. INHALATION (19:38)
[2020-09-11] MEDS: Gabapentin 300 MG Capsule PO (21:10)
[2020-09-11] MEDS: guaiFENesin 1,200 MG Tablet 1200 MG PO (21:10)
[2020-09-11] MEDS: Acetaminophen 500 MG Tablet 1000 MG PO (21:11)
[2020-09-11] MEDS: guaiFENesin 10 ML UDC (200MG/10ML) PO (21:33)
[2020-09-12] VITALS (13 sets, daily range): BP systolic 112–152; BP diastolic 58–94; PULSE 68–235; RESP 18–32; TEMP 36.4–36.7; O2SAT 93–99
[2020-09-12 05:24] LABS: Absolute Lymphocyte Count 0.58 X10^3/uL (0.83-4.51); Absolute Neutrophil Count 2.6 X10^3/uL (2.0-7.7); Basophil# 0.02 X10^3/uL; Basophil% 0.6 % (0-1); Hematocrit 39.4 % (37-47); Hemoglobin 11.4 g/dL (12.0-15.0); Lymphocyte # 0.58 X10^3/ul (0.83-4.51); Lymphocyte % 17.2 % (19-41); Mean Corp Hgb Conc 28.9 g/dL (32-36); Mean Corpuscular Hgb 27.9 pg (27.0-32.0); Mean Corpuscular Volume 96.6 fL (81-99); Mean Platelet Vol. 9.9 fl (6.2-12.0); Monocyte# 0.11 X10^3/uL; Monocyte% 3.3 % (0-10); NRBC Flagged by Analyzer 0 % (0-5); Neutrophil # 2.64 X10^3/uL (2.7-7.7); Neutrophil % 78.3 % (47-70); POSITIVE DIFFERENTIAL YES; Platelet Count 361 K/mm3 (150-450); RBC Distribution Width CV 15.4 % (11.6-14.6); RBC Distribution Width SD 54.2 fl (35.1-43.9); Red Blood Count 4.08 M/mm3 (4.2-5.4); White Blood Count 3.4 K/mm3 (4.4-11.0)
[2020-09-12 05:28] LABS: Differential Indicated SCAN CRITERIA MET
[2020-09-12 05:43] LABS: ALB/GLOB Ratio 0.5 RATIO (0.9-2.4); AST(SGOT) 16 U/L (15-37); Alanine Aminotransfer ALT/SGPT 11 U/L (13-56); Albumin, Serum 2.2 g/dL (3.2-5.0); Alkaline Phosphatase 122 U/L (45-117); Anion Gap 5 (5-15); BUN 10 mg/dL (7-18); BUN/Creat Ratio 15.2 RATIO (10-20); Calcium,Total 8.2 mg/dL (8.5-10.1); Chloride 108 mmol/L (98-107); Creatinine, Serum 0.66 mg/dL (0.55-1.02); EST Glomerular Filtration Rate 97 mL/min (>60); Est Glom Filt Rate - Afr Amer 117 mL/min (>60); Estimated Creatinine Clearance 75.34 ml/min; Globulin 4.2 g/dL (2.2-4.2); Glucose 137 mg/dL (74-106); Protein, Total 6.4 g/dL (6.4-8.2); Sodium Level 141 mmol/L (136-145)
[2020-09-12 05:51] LABS: Differential Comment SCANNED
[2020-09-12] MEDS: Budesonide Respules 0.5 MG/2 ML AMPUL.NEB. INHALATION (06:55)
[2020-09-12] MEDS: levoFLOXacin IV 750 MG/150 ML BAG 100 MG IV (09:22)
[2020-09-12] MEDS: guaiFENesin 1,200 MG Tablet 1200 MG PO ×2 (09:22→21:04)
[2020-09-12] MEDS: Gabapentin 100 MG Capsule PO (09:23)
[2020-09-12] MEDS: Pantoprazole Sodium 40 MG Tablet PO (09:23)
[2020-09-12] MEDS: Cosyntropin 0.25 MG in 0.9% Normal Saline (Pres. free 1 ML 30 MG IV (09:23)
[2020-09-12] MEDS: Metoprolol(XL)Succ 100 MG Tablet PO (09:23)
--- NOTE | 2020-09-12 09:43 | NURSING ---
Telemetry alarming A-Fib RVR. Upon entering room patient with c/o dizziness and sitting at side of bed. Patient returned to bed and placed in Trendelenburg. Dr. Berkowitz at bedside. EKG ordered.
--- NOTE | 2020-09-12 09:47 | EKG12_ITS ---
Test Reason : CP Blood Pressure : / mmHG Vent. Rate : 083 BPM Atrial Rate : 083 BPM P-R Int : 158 ms QRS Dur : 072 ms QT Int : 370 ms P-R-T Axes : 062 003 028 degrees QTc Int : 434 ms Normal sinus rhythm with sinus arrhythmia Normal ECG Confirmed by YUMI NGUYEN, JERAMIE ([id number]), associate editor MIKAL MCDOWELL ([id number]) on 09/17/2020 2:16:25 PM Referred By: FRANCIS Confirmed By:JERAMIE EASON MD
--- NOTE | 2020-09-12 10:17 | EX.PCM.CONCC ---
Assessment & Plan Assessment/Plan (1) COPD (chronic obstructive pulmonary disease): QUALIFIERS: COPD type: unspecified COPD Qualified Code(s): J44.9 - Chronic obstructive pulmonary disease, unspecified (2) Chronic interstitial lung disease: (3) Chronic respiratory failure: (4) Bronchiectasis: (5) Rheumatoid lung disease: PLAN: RECOMMENDATIONS: 1. Consider discontinuation of antibiotics after 24 to 48 hours if afebrile 2. Consider evaluation for adrenal insufficiency 3. Okay to continue with baseline medications from an inhaler standpoint 4. Follow-up with [facility] pulmonary at discharge IMPRESSIONS: 1. Chronic hypoxic respiratory failure secondary to rheumatoid lung/bronchiectasis and COPD Patient with significant worsening in lung imaging at [facility]. However, patient is followed at [facility] at baseline. Patient is not reporting any significant change in respiratory status prior to the presyncopal episode. Review of the CT scan of the chest does show significant interstitial findings with emphysema and some honeycombing. Clinical suspicion that patient has had natural progression from her rheumatoid. Last PFT at [facility] showed an FEV1 of approximately 40%. Given lack of symptoms, leukocytosis, change in cough or exercise tolerance, it is unclear the patient is truly suffering from pneumonia at this time. Empiric treatment for 24 to 48 hours would be reasonable, but if patient is afebrile, resumption of baseline medications may be necessary. 2. Presyncopal event/diarrhea Clinical suspicion patient may have an element of relative adrenal insufficiency. I do not believe that this is secondary to her COVID-19 vaccination. Patient has received volume resuscitation with some improvement. Patient's cortisol level was at the lower limit of normal, which be unclear if this represents adrenal insufficiency. Patient does temporally relate onset of diarrhea to discontinuation of as needed prednisone. Patient does have anemia at baseline, which would complicate her current respiratory status. 3. Rheumatoid arthritis/obesity/type 2 diabetes mellitus/SVT/abdominal pain Complicates care, management, recovery and prognosis. Patient likely has an element of pulmonary hypertension that would be exacerbated by significant tachycardia. Patient is on telemetry. Okay to resume baseline medications from my perspective. HPI Consult Data Date of Consult: 09/12/20 HPI Narrative HPI Narrative: BOBBY FLORES is a 65-year-old female, with past medical history listed below, who presented to [facility] on 09/11/2020 secondary to a presyncopal episode associated with micturition. Patient reportedly had had diarrhea for approximately a month, but was tolerating this well. Patient states that she has had no black or tarry stools. Patient does report epigastric abdominal pain that was between 7 and 10 out of 10. Patient has had some nausea with no vomiting. Patient does have an extensive pulmonary history and is on 2 L nasal cannula at baseline. Patient had not reported any change in oxygen requirements. Patient had had no change in her cough. Patient did state that she had significant dyspnea shortly after her presyncopal episode along with a mild headache. Patient was not aware of any sick contacts. On arrival to the emergency room, patient was tachycardic as high as 230 bpm, but afebrile. Patient was normotensive at 109/64 and saturating well on her baseline of 3 L nasal cannula. Laboratory work-up showed a white blood cell count of 10.9, elevated D-dimer at 4.55 and unremarkable chemistries. Troponin was negative. TSH was also within normal limits. A chest x-ray showed chronic interstitial changes, but given D-dimer, patient had a CTA of the chest showing worsening bronchiectasis with interstitial fibrosis and emphysematous changes. Patient was given adenosine for tachycardia, but did not respond, so 20 mg of Cardizem was given IV. Patient was given 2 L of saline with some improvement in blood pressure. Since being admitted to the hospital, patient states that she has been doing relatively well. Patient is on her baseline oxygen. Patient denies any change in her respiratory status. Patient did not have any prodromal worsening in oxygenation or changing sputum color. Patient does state that approximately a month ago she was taken off of as needed prednisone. Patient had estimated that she was using prednisone 10 mg 2-3 times a week previously. Patient developed diarrhea shortly thereafter. Patient is not currently reporting any chest pain or palpitations. Patient has had paroxysmal A. fib in the past, but states this was related to her being really sick. Patient has not had any recent extended travel or other risk factors for DVT. Patient typically uses budesonide and DuoNeb for her COPD and leflunomide for her rheumatoid arthritis. Patient does believe that her joints are slightly worse compared to previous. Patient typically follows with the [facility]. Patient was last seen at the end of last year. Patient tends to have her chest imaging and breathing test at that location. Patient's last pulmonary function test showed an FEV1 around 40%. Review of systems otherwise negative from a constitutional, HEENT, respiratory, cardiovascular, GI, genitourinary, musculoskeletal, skin, neurologic, psychiatric and hematologic system unless stated above. [facility] Medical History (Updated 09/12/20 @ 12:[address] Roldan Gayle MD) Abdominal cramping Anemia Asthma Atrial fibrillation Bronchitis Chest pain Diabetes Former smoker GERD (gastroesophageal reflux disease) Hypertension Hyperthyroidism Irregular heart beat Lack of appetite Nausea On home oxygen therapy Pneumonia Rheumatoid arthritis Home Medications Xarelto 20 mg PO DAILY 01/30/19 [History Last Taken 09/01/20] acetaminophen 1,000 mg PO DAILY PRN PRN 01/30/19 [History Last Taken 09/10/20] leflunomide 10 mg PO DAILY 01/30/19 [History Last Taken 09/10/20] gabapentin 100 mg PO DAILY 05/10/19 [History Last Taken 09/10/20] ipratropium-albuterol 3 ml INHALATION Q6H.RT 05/10/19 [History Last Taken 09/10/20] ferrous gluconate 1 tab PO BID 02/05/20 [History Last Taken 09/10/20] ondansetron HCl [Zofran] 4 mg PO Q6H #10 tab 08/27/20 [Rx Last Taken 09/10/20] budesonide 0.5 mg INHALATION BID 09/02/20 [History Last Taken 09/10/20] gabapentin 300 mg PO QHS 09/02/20 [History Last Taken 09/10/20] guaifenesin 1,200 mg PO BID 09/02/20 [History Last Taken 09/10/20] metoprolol succinate 100 mg PO DAILY #30 tab 09/05/20 [Rx Last Taken 09/10/20] omeprazole 40 mg PO DAILY #30 cap 09/05/20 [Rx Last Taken 09/10/20] metformin 500 mg PO DAILY 09/11/20 [History Last Taken 09/10/20] Allergy/AdvReac Type Severity Reaction Status Date / Time No Known Allergies Allergy Verified 09/02/20 16:24 Surgical History H/O: hysterectomy Social History household members: spouse Smoking Status: Former smoker ROS ROS Narrative See HPI Physical Exam Const oriented x3 and no apparent distress General Appearance: frail and contractures; Negative for in distress Nutritional Appearance: overweight HEENT normocephalic and head/scalp atraumatic; Negative for moist oral mucous membranes Eyes PERRL, EOMs intact bilaterally and conjunctivae normal Neck full ROM Lymph Lymphatic: no lymphadenopathy noted Resp normal respiratory effort and no use of accessory muscles Effort and Inspection: able to speak in complete sentences Auscultation: rales; Negative for rhonchi or wheezes Cardio S1 normal heart sound, S2 normal heart sound, no murmurs, no rub, no gallops and no JVD Rate: tachycardic Rhythm: abnormal rhythm irregularly irregular GI normal to inspection, nondistended, normoactive bowel sounds Extremity no clubbing, cyanosis or edema General Extremity: deformity Peripheral Pulses: Yes pulses 2+ throughout Skin no rashes or lesions noted Neuro oriented x3 and CN's II-XII intact bilaterally Psych cooperative and affect normal Lab / Micro Data Result Diagrams: 09/12/20 05:00 09/12/20 05:00 Labs: Laboratory Results - last 24 hr 09/11/20 09/11/20 09/11/20 11:00 11:00 11:00 WBC 10.9 RBC 4.68 Hgb 13.1 Hct 44.6 MCV 95.3 MCH 28.0 MCHC 29.4 L RDW Std Deviation 54.2 H RDW Coeff of Lainey 15.8 H Plt Count 389 MPV 10.1 Immature Gran % (Auto) 1.100 H Neut % (Auto) 68.7 Lymph % (Auto) 17.5 L [place] % (Auto) 7.9 Eos % (Auto) 3.2 Baso % (Auto) 1.6 H Absolute Neuts (auto) 7.5 Absolute Lymphs (auto) 1.91 Nucleated RBC % 0 Differential Comment Diff Path Review D-Dimer Quant (PE/DVT) 4.55 H* Sodium 137 Potassium 3.8 Chloride 102 Carbon Dioxide 28.0 Anion Gap 7 BUN 13 Creatinine 0.75 Estim Creat Clear Calc 66.30 Est GFR (MDRD) Af Amer 101 Est GFR (MDRD) Non-Af 83 BUN/Creatinine Ratio 17.4 Glucose 108 H Calcium 8.8 Total Bilirubin 0.40 AST 21 ALT 9 L Alkaline Phosphatase 142 H Troponin I < 0.015 Total Protein 7.0 Albumin 2.2 L Globulin 4.8 H Albumin/Globulin Ratio 0.5 L Lipase 66 L TSH Cortisol MRSA (PCR) 09/11/20 09/11/20 09/12/20 11:00 16:33 05:00 WBC 3.4 L RBC 4.08 L Hgb 11.4 L Hct 39.4 MCV 96.6 MCH 27.9 MCHC 28.9 L RDW Std Deviation 54.2 H RDW Coeff of Lainey 15.4 H Plt Count 361 MPV 9.9 Immature Gran % (Auto) 0.600 Neut % (Auto) 78.3 H Lymph % (Auto) 17.2 L Waller % (Auto) 3.3 Eos % (Auto) 0.0 Baso % (Auto) 0.6 Absolute Neuts (auto) 2.6 Absolute Lymphs (auto) 0.58 L Nucleated RBC % 0 Differential Comment SCANNED Diff Path Review May foll D-Dimer Quant (PE/DVT) Sodium Potassium Chloride Carbon Dioxide Anion Gap BUN Creatinine Estim Creat Clear Calc Est GFR (MDRD) Af Amer Est GFR (MDRD) Non-Af BUN/Creatinine Ratio Glucose Calcium Total Bilirubin AST ALT Alkaline Phosphatase Troponin I Total Protein Albumin Globulin Albumin/Globulin Ratio Lipase TSH 1.54 Cortisol MRSA (PCR) POSITIVE H 09/12/20 09/12/20 05:00 05:00 WBC RBC Hgb Hct MCV MCH MCHC RDW Std Deviation RDW Coeff of Lainey Plt Count MPV Immature Gran % (Auto) Neut % (Auto) Lymph % (Auto) Wall[place] % (Auto) Eos % (Auto) Baso % (Auto) Absolute Neuts (auto) Absolute Lymphs (auto) Nucleated RBC % Differential Comment Diff Path Review D-Dimer Quant (PE/DVT) Sodium 141 Potassium 4.0 Chloride 108 H Carbon Dioxide 28.0 Anion Gap 5 BUN 10 Creatinine 0.66 Estim Creat Clear Calc 75.34 Est GFR (MDRD) Af Amer 117 Est GFR (MDRD) Non-Af 97 BUN/Creatinine Ratio 15.2 Glucose 137 H Calcium 8.2 L Total Bilirubin 0.20 AST 16 ALT 11 L Alkaline Phosphatase 122 H Troponin I Total Protein 6.4 Albumin 2.2 L Globulin 4.2 Albumin/Globulin Ratio 0.5 L Lipase TSH Cortisol 8.90 MRSA (PCR) Micro: Microbiology 09/11/20 16:40 Enteric Bacteriology - Final Stool 09/11/20 16:40 C. difficile DNA Amplification - Final Stool 09/11/20 17:55 Streptococcus pneumoniae Antigen (M - Final Urine, Clean Catch 09/11/20 17:55 Legionella Antigen - Final Urine, Clean Catch Radiology Impression Chest X-Ray 09/11/20 11:25 IMPRESSION: Stable examination. Findings in keeping with chronic interstitial fibrosis. Electronically Signed: Porter Vallecillo MD at 11:57 EDT , Service support , Chest CTA 09/11/20 15:15 IMPRESSION: 1. Limited by inadequate pulmonary artery enhancement. No obvious central or segmental pulmonary embolism. 2. Extensive interstitial fibrotic lung disease with bronchiectasis (significantly worse since 2010). 3. Localized parenchymal airspace disease of the bilateral lower lobes and segments of the right upper lobe could represent infection/pneumonia, cryptogenic organizing pneumonia, pulmonary vascularities. Electronically Signed: Reinaldo Dumont MD ([place]) at 16:35 EDT , Service support , Charges/Coding Visit Charges Inpatient E&M: 67536 Init Hosp L3
--- NOTE | 2020-09-12 10:22 | PN.HOSP_ITS ---
Subjective Subjective Had another bout of SVT while going to the restroom. Got back into bed and HR was greater than 200. Resolved spontaneously to sinus tach. Informed pulm that she ran out of prednisone 1 month ago and had not been able to get a refil through her service inspector. This seems to coincide with onset of her symptoms. Objective Data Objective Data Vital Signs: Vital Signs Temp Pulse Resp BP Pulse Ox 36.7 C 190 H 32 H 134/94 H 93 09/12/20 09:15 09/12/20 09:50 09/12/20 09:50 09/12/20 09:50 09/12/20 09:50 Oxygen Flow Rate (L/min) 2 Oxygen Delivery Method Nasal Cannula Weight: 82.6 kg Body Mass Index (BMI) 31.2 Intake & Output: Intake and Output for Last 24 Hours 09/10/20 09/11/20 09/12/20 23:59 23:59 23:59 Intake Total 3500 / 3500 506 / 506 Balance 3500 / 3500 506 / 506 Lab / Micro Data Attestation: I reviewed the patient's lab results. Result Diagrams: 09/12/20 05:00 09/12/20 05:00 Labs: Laboratory Results - last 24 hr 09/11/20 09/11/20 09/11/20 11:00 11:00 11:00 WBC 10.9 RBC 4.68 Hgb 13.1 Hct 44.6 MCV 95.3 MCH 28.0 MCHC 29.4 L RDW Std Deviation 54.2 H RDW Coeff of Lainey 15.8 H Plt Count 389 MPV 10.1 Immature Gran % (Auto) 1.100 H Neut % (Auto) 68.7 Lymph % (Auto) 17.5 L [place] % (Auto) 7.9 Eos % (Auto) 3.2 Baso % (Auto) 1.6 H Absolute Neuts (auto) 7.5 Absolute Lymphs (auto) 1.91 Nucleated RBC % 0 Differential Comment Diff Path Review D-Dimer Quant (PE/DVT) 4.55 H* Sodium 137 Potassium 3.8 Chloride 102 Carbon Dioxide 28.0 Anion Gap 7 BUN 13 Creatinine 0.75 Estim Creat Clear Calc 66.30 Est GFR (MDRD) Af Amer 101 Est GFR (MDRD) Non-Af 83 BUN/Creatinine Ratio 17.4 Glucose 108 H Calcium 8.8 Total Bilirubin 0.40 AST 21 ALT 9 L Alkaline Phosphatase 142 H Troponin I < 0.015 Total Protein 7.0 Albumin 2.2 L Globulin 4.8 H Albumin/Globulin Ratio 0.5 L Lipase 66 L TSH Cortisol MRSA (PCR) 09/11/20 09/11/20 09/12/20 11:00 16:33 05:00 WBC 3.4 L RBC 4.08 L Hgb 11.4 L Hct 39.4 MCV 96.6 MCH 27.9 MCHC 28.9 L RDW Std Deviation 54.2 H RDW Coeff of Lainey 15.4 H Plt Count 361 MPV 9.9 Immature Gran % (Auto) 0.600 Neut % (Auto) 78.3 H Lymph % (Auto) 17.2 L [place] % (Auto) 3.3 Eos % (Auto) 0.0 Baso % (Auto) 0.6 Absolute Neuts (auto) 2.6 Absolute Lymphs (auto) 0.58 L Nucleated RBC % 0 Differential Comment SCANNED Diff Path Review May foll D-Dimer Quant (PE/DVT) Sodium Potassium Chloride Carbon Dioxide Anion Gap BUN Creatinine Estim Creat Clear Calc Est GFR (MDRD) Af Amer Est GFR (MDRD) Non-Af BUN/Creatinine Ratio Glucose Calcium Total Bilirubin AST ALT Alkaline Phosphatase Troponin I Total Protein Albumin Globulin Albumin/Globulin Ratio Lipase TSH 1.54 Cortisol MRSA (PCR) POSITIVE H 09/12/20 09/12/20 05:00 05:00 WBC RBC Hgb Hct MCV MCH MCHC RDW Std Deviation RDW Coeff of Lainey Plt Count MPV Immature Gran % (Auto) Neut % (Auto) Lymph % (Auto) [place] % (Auto) Eos % (Auto) Baso % (Auto) Absolute Neuts (auto) Absolute Lymphs (auto) Nucleated RBC % Differential Comment Diff Path Review D-Dimer Quant (PE/DVT) Sodium 141 Potassium 4.0 Chloride 108 H Carbon Dioxide 28.0 Anion Gap 5 BUN 10 Creatinine 0.66 Estim Creat Clear Calc 75.34 Est GFR (MDRD) Af Amer 117 Est GFR (MDRD) Non-Af 97 BUN/Creatinine Ratio 15.2 Glucose 137 H Calcium 8.2 L Total Bilirubin 0.20 AST 16 ALT 11 L Alkaline Phosphatase 122 H Troponin I Total Protein 6.4 Albumin 2.2 L Globulin 4.2 Albumin/Globulin Ratio 0.5 L Lipase TSH Cortisol 8.90 MRSA (PCR) Micro: Microbiology 09/11/20 16:40 Stool Enteric Bacteriology - Final 09/11/20 16:40 Stool C. difficile DNA Amplification - Final 09/11/20 17:55 Urine, Clean Catch Streptococcus pneumoniae Antigen (M - Final 09/11/20 17:55 Urine, Clean Catch Legionella Antigen - Final Radiography Diagnostic Testing: Radiology Impression Chest X-Ray 09/11/20 11:25 IMPRESSION: Stable examination. Findings in keeping with chronic interstitial fibrosis. Electronically Signed: Porter Vallecillo MD at 11:57 EDT , Service support , Chest CTA 09/11/20 15:15 IMPRESSION: 1. Limited by inadequate pulmonary artery enhancement. No obvious central or segmental pulmonary embolism. 2. Extensive interstitial fibrotic lung disease with bronchiectasis (significantly worse since 2010). 3. Localized parenchymal airspace disease of the bilateral lower lobes and segments of the right upper lobe could represent infection/pneumonia, cryptogenic organizing pneumonia, pulmonary vascularities. Electronically Signed: Reinaldo Dumont MD ([place]) at 16:35 EDT , Service support , Physical Exam Const alert Eyes Eyes Narrative: no icterus Resp normal respiratory effort and clear to auscultation bilaterally Cardio regular rate and regular rhythm Cardio Narrative: bibasilar crackles. GI non-distended Palpation: tender Extremity normal to inspection Neuro Sensorium / Orientation: awake and alert Assessment & Plan Assessment/Plan (1) SVT (supraventricular tachycardia): (2) Hypotension: QUALIFIERS: Hypotension type: orthostatic hypotension Qualified Code(s): I95.1 - Orthostatic hypotension (3) Diarrhea: QUALIFIERS: Diarrhea type: unspecified type Qualified Code(s): R19.7 - Diarrhea, unspecified (4) COPD (chronic obstructive pulmonary disease): QUALIFIERS: COPD type: unspecified COPD Qualified Code(s): J44.9 - Chronic obstructive pulmonary disease, unspecified (5) Cryptogenic organizing pneumonia: PLAN: 1. Supraventricular tachycardia * Recurred again after walking back from rest room. * Initially exacerbated by bronchodilators, particular with the albuterol portion of the DuoNeb. * Did convert to a sinus tach after dose of adenosine. 2nd time resolved spontaneously * Continue to monitor. Continue the patient metoprolol succinate. * Avoid albuterol for now. * Consult cardiology * ?Related with adrenal insufficiency? 2. Diarrhea * May be related to adrenal insufficiency * C. difficile, enteric panel negative * Patient denies any history of gluten intolerance or insensitivity but will check a TTG IgA level * Start PRN loperamide * Regular diet but holding off on wheat products as well as high fructose corn syrup. * Given the protracted nature of this GI symptoms, I doubt this is related with the COVID-19 vaccination. 3. Recent gastritis * Continue with PPI therapy 4. Hypotension * Suspect related with a dehydration given the patient's diarrhea. * I suspect patient's hemoglobin, which is 13.1, is likely hemoconcentrated as patient's hemoglobin on the was 10.8. * Will give IV fluids and monitor. * Check ACTH stim test * Concern may be related with adrenal insufficiency 5. COPD * On exam, patient does have coarse breath sounds. * Patient did receive methylprednisolone in the emergency room. * CTA showed no large vessel thrombus. Did show cryptogenic organizing pneumonia/bronchiectasis. * Pulm on consult * Started levofloxacin, vanc (for MRSA screen) and prednisone 6. VTE prophylaxis with enoxaparin. 7. Rheumatoid arthritis * has not taken steroids in 1 month due to not getting a refill * has been on steroids for years * given chronic steroid use, high concern for adrenal insufficiency. Visit Charges Inpatient E&M: [id number] [facility] Hosp L3
--- NOTE | 2020-09-12 10:35 | CASEMGMT ---
SHALOM ZAVALA assessment: Face to Face with patient for initial transition planning/care coordination assessment. SHALOM ZAVALA introduced self and role at [facility], pt voices understanding and consents to assessment. Pt is sitting up in bed on 2L nc. Pt states is normally on 3L nc 24/7 at home. Pt is A/Ox4 and answers all questions appropriately.? Care providers, pharmacy,?and demographics verified/updated. ? Presentation: Pt c/o tired, low bp at home, pt also with elev HR and hx afib Admitting dx: Hypotension, SVT PCP: [facility] Specialists: nubia Freeman; Cardiology at [facility] [place]; Rheumatoid arthritis physician Preferred Pharmacy: [facility] Insurance: [employer] Prescription Benefit:?Yes, both Living Will/HPOA: Pt states does not have LW/HPOA and declines AD info. LNOK: Enmanuel Santana, Living Arrangements: Pt lives with in mobile home with 5 steps in and states no concerns at home. Pt states helps with most ADL's. Transportation: Pt states she/ drives and states no transportation concerns. DME/HHC: Pt states has the following DME: cane, walker, raised toilet seat, shower chair, and 3L nc thru [employer]. Pt states no need for any further DME. Pt states no hx of HHC or SNF. Pt states no concerns with going home at time of discharge. Pt is disabled. Pt states does not smoke cigarettes or drink ETOH. Pt states no further concerns/needs. CM to follow for any further discharge planning/needs. Advised pt/ to ask for CM if any further questions/concerns/needs arise, voices understanding. ? Pt Goal: Home Plan[place] SHALOM ZAVALA
--- NOTE | 2020-09-12 11:20 | PCM.RX.CS ---
Consult Pharmacy has been consulted to manage selected antiobiotic: Vancomycin Labs: Sodium 141 mmol/L (136-145) 09/12/20 05:00 Potassium 4.0 mmol/L (3.5-5.1) 09/12/20 05:00 Chloride 108 mmol/L (98-107) H 09/12/20 05:00 Carbon Dioxide 28.0 mmol/L (21.0-32.0) 09/12/20 05:00 Anion Gap 5 (5-15) 09/12/20 05:00 BUN 10 mg/dL (7-18) 09/12/20 05:00 Creatinine 0.66 mg/dL (0.55-1.02) 09/12/20 05:00 Est GFR (MDRD) Af Amer 117 mL/min (>60) 09/12/20 05:00 Est GFR (MDRD) Non-Af 97 mL/min (>60) 09/12/20 05:00 BUN/Creatinine Ratio 15.2 RATIO (10-20) 09/12/20 05:00 Glucose 137 mg/dL (74-106) H 09/12/20 05:00 Microbiology: Microbiology 09/12/20 07:16 Sputum, Expectorated/Coughed Gram Stain - Final 09/11/20 16:40 Stool Enteric Bacteriology - Final 09/11/20 16:40 Stool C. difficile DNA Amplification - Final 09/11/20 17:55 Urine, Clean Catch Streptococcus pneumoniae Antigen (M - Final 09/11/20 17:55 Urine, Clean Catch Legionella Antigen - Final Goal Trough: 15-20 mcg/mL Pharmacy Plan for Drug Dosing: NEW START IV VANCOMYCIN Consulting Physician: LUIS Goal Trough: 15-20 MG/DL SrCr: 0.66 (09/12) CrCl: 90.8 ML/MIN (USING ADJUSTED BW OF 65.9KG) Comments: 2000MG LOADING DOSE GIVEN 09/12 @ 1108 Vancomycin Dose: 1750MG Q12H STARTING @2300. LEVEL PRIOR TO 4TH DOSE. Pending Level: 09/13 @ 2230 Pharmacy Service will continue to monitor and adjust dosing as required.
--- NOTE | 2020-09-12 12:44 | PCM.CONS.C ---
Assessment & Plan Assessment/Plan (1) Paroxysmal atrial fibrillation: (2) COPD (chronic obstructive pulmonary disease): QUALIFIERS: COPD type: unspecified COPD Qualified Code(s): J44.9 - Chronic obstructive pulmonary disease, unspecified PLAN: 65-year-old patient, patient seen today at bedside along with the nursing staff. This patient had longstanding history of chronic obstructive pulmonary disease Known history of paroxysmal atrial fibrillation She has been seen and followed by her grinder machine setter in [place] Patient recently seen here at the [facility] with symptoms of shortness of breath palpitation and symptoms of near syncope On review of the EKG and the telemetry showed underlying normal sinus with episodes of paroxysmal atrial fibrillation and SVT Review all her current medication she was on beta-ruby, anticoagulation with Xarelto. A recent echocardiogram showed LV systolic function preserved ejection fraction of 65%, trivial TR, trivial MR and RV systolic pressure of around 43 mmHg. Recommendation and plan; 1. Added calcium channel ruby verapamil 40 mg every 8 hour to the current treatment 2. We will continue on beta-ruby metoprolol 3. Patient denied any history of bleeding disorder at this time and her hemoglobin and hematocrit has been stable with no active bleed I resume the anticoagulation Xarelto based on her risk of [id number] score. HPI Consult Data Date of Consult: 09/12/20 HPI Narrative Reason for Consultation: Paroxysmal atrial fibrillation HPI Narrative: BOBBY FLORES, is a 65 F who presents [facility] Medical History (Updated 09/12/20 @ 12:[address] Roldan Gayle MD) Abdominal cramping Anemia Asthma Atrial fibrillation Bronchitis Chest pain Diabetes Former smoker GERD (gastroesophageal reflux disease) Hypertension Hyperthyroidism Irregular heart beat Lack of appetite Nausea On home oxygen therapy Pneumonia Rheumatoid arthritis Home Medications Xarelto 20 mg PO DAILY 01/30/19 [History Last Taken 09/01/20] acetaminophen 1,000 mg PO DAILY PRN PRN 01/30/19 [History Last Taken 09/10/20] leflunomide 10 mg PO DAILY 01/30/19 [History Last Taken 09/10/20] gabapentin 100 mg PO DAILY 05/10/19 [History Last Taken 09/10/20] ipratropium-albuterol 3 ml INHALATION Q6H.RT 05/10/19 [History Last Taken 09/10/20] ferrous gluconate 1 tab PO BID 02/05/20 [History Last Taken 09/10/20] ondansetron HCl [Zofran] 4 mg PO Q6H #10 tab 08/27/20 [Rx Last Taken 09/10/20] budesonide 0.5 mg INHALATION BID 09/02/20 [History Last Taken 09/10/20] gabapentin 300 mg PO QHS 09/02/20 [History Last Taken 09/10/20] guaifenesin 1,200 mg PO BID 09/02/20 [History Last Taken 09/10/20] metoprolol succinate 100 mg PO DAILY #30 tab 09/05/20 [Rx Last Taken 09/10/20] omeprazole 40 mg PO DAILY #30 cap 09/05/20 [Rx Last Taken 09/10/20] metformin 500 mg PO DAILY 09/11/20 [History Last Taken 09/10/20] Allergy/AdvReac Type Severity Reaction Status Date / Time No Known Allergies Allergy Verified 09/02/20 16:24 Surgical History H/O: hysterectomy Social History household members: spouse Smoking Status: Former smoker ROS ROS Narrative See HPI Constitutional Constitutional: Denies anorexia, chills, fatigue or fever(s) Eyes Eyes: Denies change in vision ENT HEENT: Denies abnormal hearing or sore throat Cardiovascular Cardiovascular: Denies chest pain or edema Respiratory/Chest Respiratory/Chest: Denies cough, dyspnea or dyspnea on exertion Gastrointestinal Gastrointestinal: Reports abdominal pain, diarrhea, loose stools and nausea; Denies melena or vomiting Genitourinary Genitourinary: Denies dysuria or urinary frequency Musculoskeletal Musculoskeletal: Denies myalgias Integumentary Integumentary: Denies rash Neurologic Neurologic: Denies headache(s), paresthesias or weakness Physical Exam Const alert and oriented x3 Orientation / Consciousness: awake Resp Auscultation: wheezes and diminished lung sounds Cardio Cardio Narrative: Cardiac examination review of the telemetry showed underlying sinus with episodes of paroxysmal A. fib and SVT There is no murmur. Peripheral Pulses: pulses 2+ throughout Extremity normal to inspection Skin no rashes or lesions noted Neuro oriented x3, moves all extremities, no focal motor deficits and no sensory deficits noted Psych mental status grossly normal
--- NOTE | 2020-09-12 13:17 | CASEMGMT ---
SHALOM ZAVALA NOTE: Pt qualifies for a Palliative referral per the [facility] palliative screening tool at this time. Dr Berkowitz aware and states ok for Palliative c/s at this time. Order placed. Palliative updated at this time via VM. Face Sheet faxed to Palliative at this time. Cherie ADRIAN RN CM
[2020-09-12 13:49] LABS: Pathologist Review Reviewed
[2020-09-12] MEDS: Rivaroxaban 20 MG Tablet PO (17:09)
[2020-09-12] MEDS: Acetaminophen 500 MG Tablet 1000 MG PO (21:04)
[2020-09-12] MEDS: Gabapentin 300 MG Capsule PO (21:04)
[2020-09-12] MEDS: guaiFENesin 10 ML UDC (200MG/10ML) PO (21:04)
[2020-09-12] MEDS: 0.9% Saline Lock 10 ML Syringe IV (22:53)
[2020-09-13] VITALS (14 sets, daily range): BP systolic 123–152; BP diastolic 62–82; PULSE 75–97; RESP 14–20; TEMP 36.4–36.7; O2SAT 94–98
[2020-09-13] MEDS: 0.9% Saline Lock 10 ML Syringe IV ×3 (00:09→22:51)
--- NOTE | 2020-09-13 00:10 | EKG12_ITS ---
Test Reason : SVT Blood Pressure : / mmHG Vent. Rate : 103 BPM Atrial Rate : 103 BPM P-R Int : 144 ms QRS Dur : 068 ms QT Int : 344 ms P-R-T Axes : 054 009 032 degrees QTc Int : 450 ms Sinus tachycardia with Premature atrial complexes Otherwise normal ECG Confirmed by YUMI NGUYEN, JERAMIE ([id number]), purchase request editor MIKAL MCDOWELL ([id number]) on 09/13/2020 10:32:47 AM Referred By: LUIS Confirmed By:JERAMIE EASON MD
[2020-09-13] MEDS: Gabapentin 100 MG Capsule PO (08:46)
[2020-09-13] MEDS: predniSONE 20 MG Tablet 60 MG PO (08:46)
[2020-09-13] MEDS: Ipratropium/Albuterol Sulfate 3 ML AMPUL.NEB INHALATION ×3 (08:55→22:31)
[2020-09-13] MEDS: Metoprolol(XL)Succ 100 MG Tablet PO (09:03)
[2020-09-13] MEDS: levoFLOXacin IV 750 MG/150 ML BAG 100 MG IV (09:03)
[2020-09-13] MEDS: guaiFENesin 1,200 MG Tablet 1200 MG PO ×2 (09:03→22:44)
[2020-09-13] MEDS: Pantoprazole Sodium 40 MG Tablet PO (09:03)
--- NOTE | 2020-09-13 09:36 | PCM.PN.INT ---
Assessment & Plan Assessment/Plan (1) COPD (chronic obstructive pulmonary disease): QUALIFIERS: COPD type: unspecified COPD Qualified Code(s): J44.9 - Chronic obstructive pulmonary disease, unspecified (2) Chronic interstitial lung disease: (3) Chronic respiratory failure: (4) Bronchiectasis: (5) Rheumatoid lung disease: PLAN: RECOMMENDATIONS: 1. Okay to discontinue antibiotics from my perspective. Initiate as needed bronchodilator 2. 5-day burst of steroids would be more than adequate 3. Okay to continue with baseline medications from an inhaler standpoint 4. Follow-up with [facility] pulmonary at discharge IMPRESSIONS: 1. Chronic hypoxic respiratory failure secondary to rheumatoid lung/bronchiectasis and COPD Patient with significant worsening in lung imaging at [facility]. However, patient is followed at [facility] at baseline. Patient is not reporting any significant change in respiratory status prior to the presyncopal episode. Review of the CT scan of the chest does show significant interstitial findings with emphysema and some honeycombing. Clinical suspicion that patient has had natural progression from her rheumatoid. Last PFT at [facility] showed an FEV1 of approximately 40%. Given lack of symptoms, leukocytosis, change in cough or exercise tolerance, it is unclear the patient is truly suffering from pneumonia at this time. Staph noted in sputum is likely colonization associated with bronchiectasis. Okay to discontinue antibiotics from my perspective. Continue with pulmonary toileting. 5-day burst of steroids should be more than sufficient. Despite RVR, bronchodilators will likely be necessary at least on a as needed basis 2. Presyncopal event/diarrhea Clinical suspicion patient may have an element of relative adrenal insufficiency. I do not believe that this is secondary to her COVID-19 vaccination. Patient has received volume resuscitation with some improvement. Patient stim test appeared to be within normal limits yesterday. Patient has had significant RVR. Cardiology is following. 3. Rheumatoid arthritis/obesity/type 2 diabetes mellitus/SVT/abdominal pain Complicates care, management, recovery and prognosis. Patient likely has an element of pulmonary hypertension that would be exacerbated by significant tachycardia. Patient is on telemetry. Okay to resume baseline medications from my perspective. Subjective Subjective Patient did well overnight. No acute issues were reported by the patient outside of some palpitations associated with standing. Patient is currently on bedrest. Patient does not report any change in her respiratory status. Patient does feel more tightness in her chest, but she attributes this with a lack of bronchodilators. Objective Data Objective Data Vital Signs: Vital Signs Temp Pulse Resp BP Pulse Ox 36.5 C L 89 20 H 123/66 H 96 09/13/20 09:00 09/13/20 09:03 09/13/20 09:00 09/13/20 09:03 09/13/20 09:00 Oxygen Flow Rate (L/min) 2 Oxygen Delivery Method Nasal Cannula Weight: 82.6 kg Body Mass Index (BMI) 31.2 Intake & Output: Intake and Output for Last 24 Hours 09/11/20 09/12/20 09/13/20 23:59 23:59 23:59 Intake Total 3500 / 3500 1676 / 1726 585 / 585 Balance 3500 / 3500 1676 / 1726 585 / 585 Lab / Micro Data Result Diagrams: 09/12/20 05:00 09/12/20 05:00 Labs: Laboratory Results - last 24 hr 09/12/20 09/12/20 09/12/20 05:00 09:58 10:24 Diff Path Review Reviewed Troponin I Cortisol 20.00 23.10 H 09/12/20 09/12/20 13:05 15:40 Diff Path Review Troponin I < 0.015 < 0.015 Cortisol Micro: Microbiology 09/12/20 07:16 Sputum, Expectorated/Coughed Gram Stain - Final 09/11/20 16:40 Stool Enteric Bacteriology - Final 09/11/20 16:40 Stool C. difficile DNA Amplification - Final 09/11/20 17:55 Urine, Clean Catch Streptococcus pneumoniae Antigen (M - Final 09/11/20 17:55 Urine, Clean Catch Legionella Antigen - Final Physical Exam Const oriented x3 and no apparent distress General Appearance: frail and contractures; Negative for in distress Nutritional Appearance: overweight HEENT normocephalic and head/scalp atraumatic; Negative for moist oral mucous membranes Eyes PERRL, EOMs intact bilaterally and conjunctivae normal Neck full ROM Lymph Lymphatic: no lymphadenopathy noted Resp normal respiratory effort and no use of accessory muscles Effort and Inspection: able to speak in complete sentences Auscultation: rales; Negative for rhonchi or wheezes Cardio S1 normal heart sound, S2 normal heart sound, no murmurs, no rub, no gallops and no JVD Rate: tachycardic Rhythm: abnormal rhythm irregularly irregular GI normal to inspection, nondistended, normoactive bowel sounds Extremity no clubbing, cyanosis or edema General Extremity: deformity Skin no rashes or lesions noted Neuro oriented x3 and CN's II-XII intact bilaterally Psych cooperative and affect normal Charges/Coding Visit Charges Inpatient E&M: 54640 Subs Hosp L2
[2020-09-13 10:09] LABS: Absolute Lymphocyte Count 1.37 X10^3/uL (0.83-4.51); Absolute Neutrophil Count 7.9 X10^3/uL (2.0-7.7); Basophil# 0.12 X10^3/uL; Basophil% 1.2 % (0-1); Eosinophil# 0.09 X10^3/uL; Eosinophils% 0.9 % (0-5); Hematocrit 41.1 % (37-47); Hemoglobin 11.9 g/dL (12.0-15.0); Lymphocyte # 1.37 X10^3/ul (0.83-4.51); Lymphocyte % 13.4 % (19-41); Mean Corpuscular Hgb 28.3 pg (27.0-32.0); Mean Corpuscular Volume 97.9 fL (81-99); Monocyte# 0.67 X10^3/uL; Monocyte% 6.5 % (0-10); NRBC Flagged by Analyzer 0 % (0-5); Neutrophil # 7.94 X10^3/uL (2.7-7.7); Neutrophil % 77.4 % (47-70); Platelet Count 322 K/mm3 (150-450); RBC Distribution Width CV 15.9 % (11.6-14.6); RBC Distribution Width SD 57.1 fl (35.1-43.9); White Blood Count 10.3 K/mm3 (4.4-11.0)
[2020-09-13 10:20] LABS: Anion Gap 4 (5-15); BUN 11 mg/dL (7-18); BUN/Creat Ratio 15.5 RATIO (10-20); Calcium,Total 8.3 mg/dL (8.5-10.1); Chloride 107 mmol/L (98-107); Creatinine, Serum 0.71 mg/dL (0.55-1.02); EST Glomerular Filtration Rate 88 mL/min (>60); Est Glom Filt Rate - Afr Amer 107 mL/min (>60); Estimated Creatinine Clearance 70.03 ml/min; Glucose 96 mg/dL (74-106); Potassium 3.4 mmol/L (3.5-5.1); Sodium Level 141 mmol/L (136-145)
--- NOTE | 2020-09-13 12:23 | PCM.CONS.P ---
Assessment & Plan Assessment/Plan (1) Generalized weakness: (2) PEREZ (dyspnea on exertion): (3) Rheumatoid lung disease: (4) Bronchiectasis: QUALIFIERS: Bronchiectasis type: uncomplicated Qualified Code(s): J47.9 - Bronchiectasis, uncomplicated (5) COPD (chronic obstructive pulmonary disease): QUALIFIERS: COPD type: unspecified COPD Qualified Code(s): J44.9 - Chronic obstructive pulmonary disease, unspecified (6) Type 2 diabetes mellitus: QUALIFIERS: Diabetes mellitus terminal operator insulin use: without intermediate use Diabetes mellitus complication status: without complication Qualified Code(s): E11.9 - Type 2 diabetes mellitus without complications (7) Chronic interstitial lung disease: (8) Paroxysmal atrial fibrillation: (9) Chronic anemia: (10) SVT (supraventricular tachycardia): (11) Hypotension: QUALIFIERS: Hypotension type: orthostatic hypotension Qualified Code(s): I95.1 - Orthostatic hypotension (12) Lack of appetite: (13) Nausea: (14) Chronic respiratory failure with hypoxia: PLAN: 65-year-old female with multiple comorbidities, extensive chronic lung disease, seen today for initial palliative care consultation secondary to her generalized weakness and dyspnea. Has chronic arthritic pain and rheumatoid lung disease. ?Weakness: She is receiving therapy. Significant PEREZ limits her ability to participate. ?Dyspnea: Has been progressively significant lately, follows with [facility] pulmonary. Continue with oxygen, pulmonary toileting, on a 5-day burst. Her breathing treatments were temporarily on hold secondary to her SVT. She may benefit from benzodiazepine or oxycodone for her shortness of breath, however will reassess as an outpatient. ?Rheumatoid: Follows with Dr. Silva in [place]. Next appointment September 23. States doctor took her off of her steroids abruptly without a visit, did not have an explanation as well. Patient is going to talk to her about this during her next appointment. ?Poor appetite: Likely due to her uncontrolled dyspnea, comorbidities. Again, we will f/u as outpatient. Thank you for the opportunity to participate in this patient's care, please do not hesitate to contact [facility] with any further questions or concerns. Palliative direct line is [phone]. We will follow up after discharge to home and will discuss palliative services further at that time. The patient was given our contact info if she has any needs or concerns prior to this. Greater than 50% of F2F visit dedicated to education and counseling of palliative care services, medications, comorbid conditions and potential assistance with management, and plan of care moving forward. Spouse and patient are agreeable to services, as long as there is insurance coverage. Goals of care include performing ADLs independently, improving overall quality of life, controlling symptoms. Start time: 1210 End time: 1316 HPI Consult Data Date of Consult: 09/13/20 HPI Narrative HPI Narrative: BOBBY FLORES, is a 65 F [address] presented to [facility] with 1 week history of diarrhea with mucus. She was having some dizziness and hypotension at home. Patient has not felt well after her second Pfizer COVID-19 immunization 07/27/2020. She has been having persistent shortness of breath. She was treated with methylprednisone and bronchodilators, after which she developed SVT with heart rate in the 220s. She was admitted to the hospital for further evaluation and management. Patient was just in the ED 08/26 with complaints of abdominal pain. She then presented back with abdominal cramping 09/02 and was admitted for further management until her discharge 09/05. She was seen by Dr. Melvin who performed an EGD, showed gastritis and recommended Protonix 40 mg daily. Her beta-ruby was increased at that time due to tachycardia and she was transfused during hospitalization as well. PMH includes chronic interstitial lung disease, chronic hypoxemic respiratory failure, bronchiectasis, rheumatoid lung disease. She follows with [facility] pulmonary. CTA chest showed significant or social findings with emphysema and some honeycombing. She does show evidence of worsening bronchiectasis with interstitial fibrosis. Pulmonary was consulted and recommends continuing baseline inhalers, considering evaluation for adrenal insufficiency, and discontinuing antibiotics after 24 to 48 hours if afebrile. As of today 09/13, pulmonary reports okay to DC antibiotics, initiate as needed bronchodilator, and start 5-day burst of steroids. Cardiology also consulted and recommended adding calcium channel ruby verapamil 40 mg every 8 hours and to resume anticoagulation with Xarelto. Patient lives in a mobile home with her spouse, Enmanuel Flores, with 5 steps to enter. helps with most of her ADLs and transfer her to appointments. DME in the home include cane, walker, raised toilet seat, shower chair, and 3 L of supplemental oxygen through [employer]. She does not have a current living will/HC POA. She uses [facility] for pharmacy. Her electric meter inspector is at [facility] and pulmonary is Dr. Freeman. Patient reports her breathing treatments were discontinued secondary to her tachycardia, this made her breathing much worse. Last night, she did not get her breathing treatment and put her over the edge, she was wheezing quite a bit and could not catch her breath. Medications have been adjusted. She is wearing supplemental oxygen, observed conversational dyspnea. Spoke with patient and spouse about palliative services, they are very interested in pursuing when she is discharged. Patient's goal is to be able to perform ADLs independently without becoming so short of breath and to ambulate longer distances. Her quality of life currently is very poor and would like to see that improved. [facility] Medical History Abdominal cramping Anemia Asthma Atrial fibrillation Bronchitis Chest pain Diabetes Former smoker GERD (gastroesophageal reflux disease) Hypertension Hyperthyroidism Irregular heart beat Lack of appetite Nausea On home oxygen therapy Pneumonia Rheumatoid arthritis Home Medications Xarelto 20 mg PO DAILY 01/30/19 [History Last Taken 09/01/20] acetaminophen 1,000 mg PO DAILY PRN PRN 01/30/19 [History Last Taken 09/10/20] leflunomide 10 mg PO DAILY 01/30/19 [History Last Taken 09/10/20] gabapentin 100 mg PO DAILY 05/10/19 [History Last Taken 09/10/20] ipratropium-albuterol 3 ml INHALATION Q6H.RT 05/10/19 [History Last Taken 09/10/20] ferrous gluconate 1 tab PO BID 02/05/20 [History Last Taken 09/10/20] ondansetron HCl [Zofran] 4 mg PO Q6H #10 tab 08/27/20 [Rx Last Taken 09/10/20] budesonide 0.5 mg INHALATION BID 09/02/20 [History Last Taken 09/10/20] gabapentin 300 mg PO QHS 09/02/20 [History Last Taken 09/10/20] guaifenesin 1,200 mg PO BID 09/02/20 [History Last Taken 09/10/20] metoprolol succinate 100 mg PO DAILY #30 tab 09/05/20 [Rx Last Taken 09/10/20] omeprazole 40 mg PO DAILY #30 cap 09/05/20 [Rx Last Taken 09/10/20] metformin 500 mg PO DAILY 09/11/20 [History Last Taken 09/10/20] Allergy/AdvReac Type Severity Reaction Status Date / Time No Known Allergies Allergy Verified 09/02/20 16:24 Surgical History H/O: hysterectomy Social History household members: spouse Smoking Status: Former smoker ROS Constitutional Constitutional: Reports fatigue and weakness; Denies fever(s) Eyes Eyes: Denies change in vision ENT HEENT: Reports dry mouth; Denies mouth lesions or sore throat Cardiovascular Cardiovascular: Denies chest pain, cyanosis, dizziness or edema Respiratory/Chest Respiratory/Chest: Reports chest congestion, cough, portable oxygen @ home, shortness of breath at rest, shortness of breath with exertion and wheezing Gastrointestinal Gastrointestinal: Reports systems reviewed and no addt'l complaints, except as documented Genitourinary Genitourinary: Reports systems reviewed and no addt'l complaints, except as documented Musculoskeletal Musculoskeletal: Reports joint pain, joint stiffness and stiffness; Denies tremors Integumentary Integumentary: Reports other Details: bruising Neurologic Neurologic: Denies focal weakness, memory loss or tremor(s) Psychiatric Psychiatric: Reports anxiety; Denies confusion Endocrine Endocrinology: Reports none Hematologic/Lymphatic Hematologic/Lymphatic: Reports anemia and easy bruising Physical Exam Const alert, oriented x3 and no apparent distress Exam Limitations: physical limitations HEENT normocephalic and head/scalp atraumatic Eyes General Eye: normal appearance of both eyes Neck supple General: trachea midline Resp Effort and Inspection: uses accessory muscles; Negative for able to speak in complete sentences Auscultation: rhonchi throughout, wheezes expiratory wheezes, anterior and posterior and diminished lung sounds; Negative for rales Cardio regular rate, S1 normal heart sound and S2 normal heart sound Rate: tachycardic GI normal to inspection, nondistended, normoactive bowel sounds Extremity General Extremity: Negative for cyanosis or edema Skin General Skin Exam: ecchymosis Lesions: no lesions Rashes: no rashes Neuro CN's II-XII intact bilaterally and no focal motor deficits Psych mental status grossly normal and cooperative Attitude: calm
--- NOTE | 2020-09-13 13:53 | PN.HOSP_ITS ---
Subjective Subjective breathing well. Still with tachycardia. Objective Data Objective Data Vital Signs: Vital Signs Temp Pulse Resp BP Pulse Ox 36.5 C L 89 20 H 123/66 H 96 09/13/20 09:00 09/13/20 09:03 09/13/20 09:00 09/13/20 09:03 09/13/20 09:00 Oxygen Flow Rate (L/min) 2 Oxygen Delivery Method Nasal Cannula Weight: 82.6 kg Body Mass Index (BMI) 31.2 Intake & Output: Intake and Output for Last 24 Hours 09/11/20 09/12/20 09/13/20 23:59 23:59 23:59 Intake Total 3500 / 3500 1676 / 1726 1630 / 1630 Output Total 250 / 250 Balance 3500 / 3500 1676 / 1726 1380 / 1380 Lab / Micro Data Result Diagrams: 09/13/20 09:55 09/13/20 09:55 Labs: Laboratory Results - last 24 hr 09/12/20 09/13/20 09/13/20 15:40 09:55 09:55 WBC 10.3 RBC 4.20 Hgb 11.9 L Hct 41.1 MCV 97.9 MCH 28.3 MCHC 29.0 L RDW Std Deviation 57.1 H RDW Coeff of Lainey 15.9 H Plt Count 322 MPV 10.0 Immature Gran % (Auto) 0.600 Neut % (Auto) 77.4 H Lymph % (Auto) 13.4 L Teller % (Auto) 6.5 Eos % (Auto) 0.9 Baso % (Auto) 1.2 H Absolute Neuts (auto) 7.9 H Absolute Lymphs (auto) 1.37 Nucleated RBC % 0 Sodium 141 Potassium 3.4 L Chloride 107 Carbon Dioxide 30.0 Anion Gap 4 L BUN 11 Creatinine 0.71 Estim Creat Clear Calc 70.03 Est GFR (MDRD) Af Amer 107 Est GFR (MDRD) Non-Af 88 BUN/Creatinine Ratio 15.5 Glucose 96 Calcium 8.3 L Troponin I < 0.015 Micro: Microbiology 09/12/20 07:16 Sputum, Expectorated/Coughed Gram Stain - Final 09/12/20 07:16 Sputum, Expectorated/Coughed Respiratory Culture - Preliminary Staphylococcus aureus 09/11/20 16:40 Stool Enteric Bacteriology - Final 09/11/20 16:40 Stool C. difficile DNA Amplification - Final 09/11/20 17:55 Urine, Clean Catch Streptococcus pneumoniae Antigen (M - Final 09/11/20 17:55 Urine, Clean Catch Legionella Antigen - Final Physical Exam Const alert and oriented x3 HEENT Head and Scalp: normocephalic Resp normal respiratory effort and clear to auscultation bilaterally Cardio regular rate, regular rhythm, S1 normal heart sound and S2 normal heart sound GI normal to inspection, nondistended, normoactive bowel sounds, non-tender and non-distended Neuro Sensorium / Orientation: awake and alert Psych affect normal Assessment & Plan Assessment/Plan (1) SVT (supraventricular tachycardia): (2) Hypotension: QUALIFIERS: Hypotension type: orthostatic hypotension Qualified Code(s): I95.1 - Orthostatic hypotension (3) Diarrhea: QUALIFIERS: Diarrhea type: unspecified type Qualified Code(s): R19.7 - Diarrhea, unspecified (4) COPD (chronic obstructive pulmonary disease): QUALIFIERS: COPD type: unspecified COPD Qualified Code(s): J44.9 - Chronic obstructive pulmonary disease, unspecified (5) Cryptogenic organizing pneumonia: PLAN: ?1.? afib RVR * Supraventricular tachycardia * Recurred again after walking back from rest room. * Initially exacerbated by bronchodilators, particular with the albuterol portion of the DuoNeb. * Did convert to a sinus tach after dose of adenosine. 2nd time resolved spontaneously * Continue to monitor.? Continue the patient metoprolol succinate. * Consult cardiology * ?Related with adrenal insufficiency? * started on verapamil 2.? Diarrhea * May be related to adrenal insufficiency * C. difficile, enteric panel negative * Patient denies any history of gluten intolerance or insensitivity but will check a TTG IgA level * Start PRN loperamide * Regular diet but holding off on wheat products as well as high fructose corn syrup. * Given the protracted nature of this GI symptoms, I doubt this is related with the COVID-19 vaccination. 3.? Recent gastritis * Continue with PPI therapy 4.? Hypotension * Suspect related with a dehydration given the patient's diarrhea. * I suspect patient's hemoglobin, which is 13.1, is likely hemoconcentrated as patient's hemoglobin on the was 10.8. * Will give IV fluids and monitor. * Check ACTH stim test * Concern may be related with adrenal insufficiency 5.? COPD * On exam, patient does have coarse breath sounds. * Patient did receive methylprednisolone in the emergency room. * CTA showed no large vessel thrombus. Did show cryptogenic organizing pneumonia/bronchiectasis. * Pulm on consult * Started levofloxacin, vanc and prednisone * continue with abx for now 6.? VTE prophylaxis with enoxaparin. 7. Rheumatoid arthritis * has not taken steroids in 1 month due to not getting a refill * has been on steroids for years * given chronic steroid use, high concern for adrenal insufficiency. Case discussed with the patient's at bedside. Visit Charges Inpatient E&M: 22495 Subs Hosp L2
[2020-09-13] MEDS: Rivaroxaban 20 MG Tablet PO (17:03)
[2020-09-13] MEDS: Acetaminophen 500 MG Tablet 1000 MG PO (22:03)
[2020-09-13] MEDS: Gabapentin 300 MG Capsule PO (22:04)
[2020-09-13] MEDS: guaiFENesin 10 ML UDC (200MG/10ML) PO (22:44)
[2020-09-13 23:15] LABS: Vancomycin, Trough Level 27.2 ug/mL (5.0-15.0)
[2020-09-14] VITALS (10 sets, daily range): BP systolic 124–139; BP diastolic 60–71; PULSE 63–116; RESP 16–24; TEMP 36.3–36.7; O2SAT 93–98
--- NOTE | 2020-09-14 00:05 | NURSING ---
Report given to Christina RAUSCH who is assuming care of the pt. at this time.
--- NOTE | 2020-09-14 05:14 | PCM.RX.CS ---
Consult Pharmacy has been consulted to manage selected antiobiotic: Vancomycin Type of Consult: Follow-up Suspected Infection: Pneumonia Prior Doses of Antibiotics Received/Current Regimen: Medications Discontinued Medications Vancomycin HCl 1,750 mg/ (Sodium Chloride) 535 mls @ 250 mls/hr IV Q12H ELENA Last Admin: 09/14/20 00:57 Dose: Infused Labs: Sodium 141 mmol/L (136-145) 09/13/20 09:55 Potassium 3.4 mmol/L (3.5-5.1) L 09/13/20 09:55 Chloride 107 mmol/L (98-107) 09/13/20 09:55 Carbon Dioxide 30.0 mmol/L (21.0-32.0) 09/13/20 09:55 Anion Gap 4 (5-15) L 09/13/20 09:55 BUN 11 mg/dL (7-18) 09/13/20 09:55 Creatinine 0.71 mg/dL (0.55-1.02) 09/13/20 09:55 Est GFR (MDRD) Af Amer 107 mL/min (>60) 09/13/20 09:55 Est GFR (MDRD) Non-Af 88 mL/min (>60) 09/13/20 09:55 BUN/Creatinine Ratio 15.5 RATIO (10-20) 09/13/20 09:55 Glucose 96 mg/dL (74-106) 09/13/20 09:55 Vancomycin Trough 27.2 ug/mL (5.0-15.0) H 09/13/20 22:24 Microbiology: Microbiology 09/12/20 07:16 Sputum, Expectorated/Coughed Gram Stain - Final 09/12/20 07:16 Sputum, Expectorated/Coughed Respiratory Culture - Preliminary Staphylococcus aureus 09/11/20 16:40 Stool Enteric Bacteriology - Final 09/11/20 16:40 Stool C. difficile DNA Amplification - Final 09/11/20 17:55 Urine, Clean Catch Streptococcus pneumoniae Antigen (M - Final 09/11/20 17:55 Urine, Clean Catch Legionella Antigen - Final Weight used for dosin.6 kg Estimated Creatinine Clearance: 70 Goal Trough: 15-20 mcg/mL Pharmacy Plan for Drug Dosing: Vancomycin trough level of 27.2 was high. The next dose had already been given, so the current order was discontinued. A random vancomycin level will be drawn 5/29/21 at 1100, and further dosing will be determined from that result. Pharmacy Service will continue to monitor and adjust dosing as required. Follow-Up Labs: Trough Vancomycin - RANDOM Labs to be done on [date and time ordered]: 09/14/20 @1100
[2020-09-14] MEDS: Ipratropium/Albuterol Sulfate 3 ML AMPUL.NEB INHALATION ×2 (06:56→13:30)
[2020-09-14 08:05] LABS: Hematocrit 38.7 % (37-47); Hemoglobin 11.3 g/dL (12.0-15.0); Mean Corp Hgb Conc 29.2 g/dL (32-36); Platelet Count 317 K/mm3 (150-450); RBC Distribution Width CV 15.9 % (11.6-14.6); RBC Distribution Width SD 55.5 fl (35.1-43.9); Red Blood Count 4.03 M/mm3 (4.2-5.4); White Blood Count 6.6 K/mm3 (4.4-11.0)
[2020-09-14 08:26] LABS: Anion Gap 4 (5-15); BUN 10 mg/dL (7-18); BUN/Creat Ratio 15.7 RATIO (10-20); Calcium,Total 8.2 mg/dL (8.5-10.1); Chloride 108 mmol/L (98-107); Creatinine, Serum 0.64 mg/dL (0.55-1.02); EST Glomerular Filtration Rate 100 mL/min (>60); Est Glom Filt Rate - Afr Amer 121 mL/min (>60); Estimated Creatinine Clearance 77.69 ml/min; Glucose 98 mg/dL (74-106); Potassium 3.3 mmol/L (3.5-5.1); Sodium Level 142 mmol/L (136-145)
[2020-09-14] MEDS: Gabapentin 100 MG Capsule PO (10:35)
[2020-09-14] MEDS: guaiFENesin 1,200 MG Tablet 1200 MG PO (10:35)
[2020-09-14] MEDS: predniSONE 20 MG Tablet 60 MG PO (10:35)
[2020-09-14] MEDS: levoFLOXacin IV 750 MG/150 ML BAG 100 MG IV (10:36)
[2020-09-14] MEDS: Metoprolol(XL)Succ 100 MG Tablet PO (10:38)
[2020-09-14] MEDS: 0.9% Saline Lock 10 ML Syringe IV (10:42)
[2020-09-14] MEDS: Pantoprazole Sodium 40 MG Tablet PO (10:42)
--- NOTE | 2020-09-14 13:12 | PN.HOSP_ITS ---
Subjective Subjective Feeling much better. No further pronounced tachycardic episodes with ambulation. Objective Data Objective Data Vital Signs: Vital Signs Temp Pulse Resp BP Pulse Ox 36.5 C L 116 H 20 H 124/60 H 97 09/14/20 11:30 09/14/20 11:30 09/14/20 11:30 09/14/20 11:30 09/14/20 11:30 Oxygen Flow Rate (L/min) 3 Oxygen Delivery Method Room Air Weight: 82.6 kg Body Mass Index (BMI) 31.2 Intake & Output: Intake and Output for Last 24 Hours 09/12/20 09/13/20 09/14/20 23:59 23:59 23:59 Intake Total 1676 / 1726 1950 / 2190 895 / 895 Output Total 250 / 250 Balance 1676 / 1726 1700 / 1940 895 / 895 Lab / Micro Data Attestation: I reviewed the patient's lab results. Result Diagrams: 09/14/20 07:42 09/14/20 07:42 Labs: Laboratory Results - last 24 hr 09/13/20 09/14/20 09/14/20 22:24 07:42 07:42 WBC 6.6 RBC 4.03 L Hgb 11.3 L Hct 38.7 MCV 96.0 MCH 28.0 MCHC 29.2 L RDW Std Deviation 55.5 H RDW Coeff of Lainey 15.9 H Plt Count 317 MPV 10.0 Sodium 142 Potassium 3.3 L Chloride 108 H Carbon Dioxide 30.0 Anion Gap 4 L BUN 10 Creatinine 0.64 Estim Creat Clear Calc 77.69 Est GFR (MDRD) Af Amer 121 Est GFR (MDRD) Non-Af 100 BUN/Creatinine Ratio 15.7 Glucose 98 Calcium 8.2 L Vancomycin Trough 27.2 H Random Vancomycin 09/14/20 11:01 WBC RBC Hgb Hct MCV MCH MCHC RDW Std Deviation RDW Coeff of Lainey Plt Count MPV Sodium Potassium Chloride Carbon Dioxide Anion Gap BUN Creatinine Estim Creat Clear Calc Est GFR (MDRD) Af Amer Est GFR (MDRD) Non-Af BUN/Creatinine Ratio Glucose Calcium Vancomycin Trough Random Vancomycin 30.0 H Micro: Microbiology 09/12/20 07:16 Sputum, Expectorated/Coughed Gram Stain - Final 09/12/20 07:16 Sputum, Expectorated/Coughed Respiratory Culture - Final Meth. resistant Staph. aureus 09/11/20 16:40 Stool Enteric Bacteriology - Final 09/11/20 16:40 Stool C. difficile DNA Amplification - Final 09/11/20 17:55 Urine, Clean Catch Streptococcus pneumoniae Antigen (M - Final 09/11/20 17:55 Urine, Clean Catch Legionella Antigen - Final Physical Exam Const alert and no apparent distress HEENT Head and Scalp: normocephalic Resp normal respiratory effort Resp Narrative: fine bibasilar crackles. Cardio regular rate, regular rhythm, S1 normal heart sound and S2 normal heart sound GI normal to inspection, nondistended, normoactive bowel sounds, non-tender and non-distended Extremity normal to inspection Neuro Sensorium / Orientation: awake and alert Psych affect normal Assessment & Plan Assessment/Plan (1) SVT (supraventricular tachycardia): (2) Hypotension: QUALIFIERS: Hypotension type: orthostatic hypotension Qualified Code(s): I95.1 - Orthostatic hypotension (3) Diarrhea: QUALIFIERS: Diarrhea type: unspecified type Qualified Code(s): R19.7 - Diarrhea, unspecified (4) COPD (chronic obstructive pulmonary disease): QUALIFIERS: COPD type: unspecified COPD Qualified Code(s): J44.9 - Chronic obstructive pulmonary disease, unspecified (5) Cryptogenic organizing pneumonia: (6) Chronic atrial fibrillation with rapid ventricular response: PLAN: ?1.? afib w RVR * Supraventricular tachycardia ruled out * Recurred again after walking back from rest room. * Initially exacerbated by bronchodilators, particular with the albuterol portion of the DuoNeb. * Did convert to a sinus tach after dose of adenosine. 2nd time resolved spontaneously * Continue to monitor.? Continue the patient metoprolol succinate. * Consult cardiology * ?Related with adrenal insufficiency? * started on verapamil 2.? Diarrhea * resolved * May be related to adrenal insufficiency * C. difficile, enteric panel negative * Patient denies any history of gluten intolerance or insensitivity but will check a TTG IgA level * Start PRN loperamide * Regular diet but holding off on wheat products as well as high fructose corn syrup. * Given the protracted nature of this GI symptoms, I doubt this is related with the COVID-19 vaccination. 3.? Recent gastritis * Continue with PPI therapy 4.? Hypotension * resolved * Suspect related with a dehydration given the patient's diarrhea. * I suspect patient's hemoglobin, which is 13.1, is likely hemoconcentrated as patient's hemoglobin on the was 10.8. * Will give IV fluids and monitor. * Check ACTH stim test * Concern may be related with adrenal insufficiency 5.? COPD * On exam, patient does have coarse breath sounds. * Patient did receive methylprednisolone in the emergency room. * CTA showed no large vessel thrombus. Did show cryptogenic organizing pneumonia/bronchiectasis. * Pulm on consult * Started levofloxacin, vanc and prednisone * continue with abx for now 6.? Bronchietasis/cryptogenic organizing pneumonia * Cx showed MRSA, which may be colonization per pulm * DC levofloxacin * on prednisone * follow up with pulm as outpt. 7. VTE prophylaxis with enoxaparin. 8. Rheumatoid arthritis * has not taken steroids in 1 month due to not getting a refill * has been on steroids for years * given chronic steroid use, high concern for adrenal insufficiency. Visit Charges Inpatient E&M: 28262 Subs Hosp L2
[2020-09-14 14:20] LABS: t-Transglutaminase IgA <2 U/mL (0-3)
--- NOTE | 2020-09-14 14:39 | PCM.DC ---
Discharge Instructions Diet Discharge Diet: Low fat / Low cholesterol Activity Discharge Activity: Return to Normal Activity Dressing / Incision Call your doctor if you observe: Fever of 101 or Higher, Shortness of breath and - (persistant blood in urine) Follow Up Care When: Follow up with pulmonology in 2-4 weeks Test Results: Test results from this visit will be discussed in further detail at your follow-up appointment, if applicable. Discharge Plan Admission Admit Date/Time: 09/11/20 13:23 Attending Provider: Joe Berkowitz Primary Care Provider: Alexa Becerra Consulting Providers: Roldan Gayle ; Ministerio Kingston ; Ninoska Alvarez NP ; Jaci Espinoza Instructions Patient Instructions: Atrial Fibrillation Discharge Orders/Prescriptions Prescriptions: New verapamil 80 mg Tablet 40 mg PO Q8 Qty: 90 RF: 0 sulfamethoxazole-trimethoprim [Bactrim] 400-80 mg tablet 1 tab PO BID Qty: 10 RF: 0 Continued leflunomide 10 MG tablet 10 mg PO DAILY RF: 0 Xarelto 20 MG tablet 20 mg PO DAILY RF: 0 Hold Instructions: Resume on 09/15/20. resume medication in 10 days acetaminophen 500 MG tablet 1,000 mg PO DAILY PRN PRN (Reason: Pain Or Fever) RF: 0 ipratropium-albuterol 3 ML solution for nebulization 3 ml inhalation Q6H.RT RF: 0 gabapentin 100 MG capsule 100 mg PO DAILY RF: 0 ferrous gluconate 324 MG tablet 1 tab PO BID RF: 0 ondansetron HCl [Zofran] 4 mg tablet 4 mg PO Q6H Qty: 10 RF: 0 gabapentin 300 mg capsule 300 mg PO QHS RF: 0 budesonide 0.5 mg/2 mL suspension for nebulization 0.5 mg inhalation BID RF: 0 guaifenesin 1,200 MG tablet extended release 12hr 1,200 mg PO BID RF: 0 metoprolol succinate 100 mg Tablet Extended Release 24 Hr 100 mg PO DAILY Qty: 30 RF: 0 omeprazole 40 mg capsule,delayed release(DR/EC) 40 mg PO DAILY Qty: 30 RF: 0 metformin 500 mg tablet extended release 24 hr 500 mg PO DAILY RF: 0 Referrals / Follow Up: Roldan Gayle MD [STAFF PHYSICIAN] - Within 1 Month Alexa Becerra PA [Primary Care Provider] - Within 1 Week Disposition Disposition (needs filled in before D/C Order can be placed): Home, self care
--- NOTE | 2020-09-14 14:47 | DS.PCM_ITS ---
Providers Date of Admission: 09/11/20 Primary Care Physician: RICARDO Wagner Consultations 09/12/20 08:13 Consult: [employer] [employer] / Pulmonary Medicine Routine Consulting Provider: Pulmonary Medicine shira [place] Reason for Consult: TOP FORMER, bronchiectasis EMERGENT Consult: No Notified: Yes Date Notified:: 09/12/20 Time Notified: 08:13 Method of Notification: Text 09/12/20 10:22 Consult: Cardiology Routine Consulting Provider: Jaci Espinoza Reason for Consult: SVT EMERGENT Consult: No MD Notified: Yes Date Notified:: 09/12/20 Time Notified: 10:22 Method of Notification: Text Reason For Visit: HYPOTENSION, COPD Diagnosis Discharge Diagnosis (1) SVT (supraventricular tachycardia): Status: Acute Code(s): I47.1 - Supraventricular tachycardia (2) Hypotension: Status: Acute Code(s): I95.9 - Hypotension, unspecified Qualifiers: Hypotension type: orthostatic hypotension Qualified Code(s): I95.1 - Orthostatic hypotension (3) Diarrhea: Status: Acute Code(s): R19.7 - Diarrhea, unspecified Qualifiers: Diarrhea type: unspecified type Qualified Code(s): R19.7 - Diarrhea, unspecified (4) COPD (chronic obstructive pulmonary disease): Status: Chronic Code(s): J44.9 - Chronic obstructive pulmonary disease, unspecified Qualifiers: COPD type: unspecified COPD Qualified Code(s): J44.9 - Chronic obstructive pulmonary disease, unspecified (5) Cryptogenic organizing pneumonia: Status: Acute Code(s): J84.116 - Cryptogenic organizing pneumonia (6) Chronic atrial fibrillation with rapid ventricular response: Status: Chronic Code(s): I48.20 - Chronic atrial fibrillation, unspecified Medications at Discharge Home Medications Xarelto 20 mg PO DAILY 01/30/19 acetaminophen 1,000 mg PO DAILY PRN PRN 01/30/19 leflunomide 10 mg PO DAILY 01/30/19 gabapentin 100 mg PO DAILY 05/10/19 ipratropium-albuterol 3 ml INHALATION Q6H.RT 05/10/19 ferrous gluconate 1 tab PO BID 02/05/20 ondansetron HCl [Zofran] 4 mg PO Q6H #10 tab 08/27/20 budesonide 0.5 mg INHALATION BID 09/02/20 gabapentin 300 mg PO QHS 09/02/20 guaifenesin 1,200 mg PO BID 09/02/20 metoprolol succinate 100 mg PO DAILY #30 tab 09/05/20 omeprazole 40 mg PO DAILY #30 cap 09/05/20 metformin 500 mg PO DAILY 09/11/20 prednisone 10 mg PO DAILY #30 tab 09/14/20 sulfamethoxazole-trimethoprim [Bactrim] 1 tab PO BID #10 tab 09/14/20 verapamil 40 mg PO Q8 #90 tab 09/14/20 Hospital Course Operations None Summary of Care Provided Minutes Spent on Discharge: 38 Hospital Course: 1.? afib w RVR * Supraventricular tachycardia ruled out * Recurred again after walking back from rest room. * Initially exacerbated by bronchodilators, particular with the albuterol portion of the DuoNeb. * Did convert to a sinus tach after dose of adenosine. 2nd time resolved spontaneously * Continue to monitor.? Continue the patient metoprolol succinate. * Follow with cardiology * started on verapamil 2.? Diarrhea * resolved * May be related to adrenal insufficiency * C. difficile, enteric panel negative * Patient denies any history of gluten intolerance or insensitivity but will check a TTG IgA level * Start PRN loperamide * Regular diet but holding off on wheat products as well as high fructose corn s yrup. * Given the protracted nature of this GI symptoms, I doubt this is related with the COVID-19 vaccination. 3.? Recent gastritis * Continue with PPI therapy 4.? Hypotension * resolved * Suspect related with a dehydration given the patient's diarrhea. * I suspect patient's hemoglobin, which is 13.1, is likely hemoconcentrated as patient's hemoglobin on the was 10.8. * Will give IV fluids and monitor. * Check ACTH stim test * Concern may be related with adrenal insufficiency 5.? COPD * On exam, patient does have coarse breath sounds. * Patient did receive methylprednisolone in the emergency room. * CTA showed no large vessel thrombus. Did show cryptogenic organizing pneumonia/bronchiectasis. * Pulm on consult * Started levofloxacin, vanc and prednisone * continue with abx for now 6.? Bronchietasis/cryptogenic organizing pneumonia * Cx showed MRSA, which may be colonization per pulm * DC levofloxacin * on prednisone * follow up with pulm as outpt. 7. Rheumatoid arthritis * has not taken steroids in 1 month due to not getting a refill * has been on steroids for years * Doubt adrenal insufficiency, however, will place on prednisone taper. ABG / Lab / Microbiology Data Result Diagrams: 09/14/20 07:42 09/14/20 07:42 Laboratory: Laboratory Results - last 24 hr 09/11/20 09/13/20 09/14/20 11:00 22:24 07:42 WBC 6.6 RBC 4.03 L Hgb 11.3 L Hct 38.7 MCV 96.0 MCH 28.0 MCHC 29.2 L RDW Std Deviation 55.5 H RDW Coeff of Lainey 15.9 H Plt Count 317 MPV 10.0 Sodium Potassium Chloride Carbon Dioxide Anion Gap BUN Creatinine Estim Creat Clear Calc Est GFR (MDRD) Af Amer Est GFR (MDRD) Non-Af BUN/Creatinine Ratio Glucose Calcium Vancomycin Trough 27.2 H Random Vancomycin Tiss Transglutamin IgA <2 09/14/20 09/14/20 07:42 11:01 WBC RBC Hgb Hct MCV MCH MCHC RDW Std Deviation RDW Coeff of Lainey Plt Count MPV Sodium 142 Potassium 3.3 L Chloride 108 H Carbon Dioxide 30.0 Anion Gap 4 L BUN 10 Creatinine 0.64 Estim Creat Clear Calc 77.69 Est GFR (MDRD) Af Amer 121 Est GFR (MDRD) Non-Af 100 BUN/Creatinine Ratio 15.7 Glucose 98 Calcium 8.2 L Vancomycin Trough Random Vancomycin 30.0 H Tiss Transglutamin IgA Microbiology: Microbiology 09/12/20 07:16 Gram Stain - Final Sputum, Expectorated/Coughed Respiratory Culture - Final Meth. resistant Staph. aureus Microbiology 09/12/20 07:16 Sputum, Expectorated/Coughed Gram Stain - Final 09/12/20 07:16 Sputum, Expectorated/Coughed Respiratory Culture - Final Meth. resistant Staph. aureus 09/11/20 16:40 Stool Enteric Bacteriology - Final 09/11/20 16:40 Stool C. difficile DNA Amplification - Final 09/11/20 17:55 Urine, Clean Catch Streptococcus pneumoniae Antigen (M - Final 09/11/20 17:55 Urine, Clean Catch Legionella Antigen - Final D/C Instructions Discharge Diet: Low fat / Low cholesterol Discharge Activity: Return to Normal Activity Call your doctor if you observe: Fever of 101 or Higher, Shortness of breath and - (persistant blood in urine) When: Follow up with pulmonology in 2-4 weeks Meaningful Use Info Meaningful Use Diagnoses (Choose all that apply): None applicable Discharge Plan Admission Admit Date/Time: 09/11/20 13:23 Attending Provider: Joe Berkowitz Primary Care Provider: Alexa Becerra Consulting Providers: Roldan Gayle ; Ministerio Kingston ; Ninoska Alvarez NP ; Jaci Espinoza Instructions Patient Instructions: Atrial Fibrillation Discharge Orders/Prescriptions Prescriptions: New verapamil 80 mg Tablet 40 mg PO Q8 Qty: 90 RF: 0 sulfamethoxazole-trimethoprim [Bactrim] 400-80 mg tablet 1 tab PO BID Qty: 10 RF: 0 prednisone 10 mg tablet 10 mg PO DAILY Qty: 30 RF: 0 Continued leflunomide 10 MG tablet 10 mg PO DAILY RF: 0 Xarelto 20 MG tablet 20 mg PO DAILY RF: 0 Hold Instructions: Resume on 09/15/20. resume medication in 10 days acetaminophen 500 MG tablet 1,000 mg PO DAILY PRN PRN (Reason: Pain Or Fever) RF: 0 ipratropium-albuterol 3 ML solution for nebulization 3 ml inhalation Q6H.RT RF: 0 gabapentin 100 MG capsule 100 mg PO DAILY RF: 0 ferrous gluconate 324 MG tablet 1 tab PO BID RF: 0 ondansetron HCl [Zofran] 4 mg tablet 4 mg PO Q6H Qty: 10 RF: 0 gabapentin 300 mg capsule 300 mg PO QHS RF: 0 budesonide 0.5 mg/2 mL suspension for nebulization 0.5 mg inhalation BID RF: 0 guaifenesin 1,200 MG tablet extended release 12hr 1,200 mg PO BID RF: 0 metoprolol succinate 100 mg Tablet Extended Release 24 Hr 100 mg PO DAILY Qty: 30 RF: 0 omeprazole 40 mg capsule,delayed release(DR/EC) 40 mg PO DAILY Qty: 30 RF: 0 metformin 500 mg tablet extended release 24 hr 500 mg PO DAILY RF: 0 Referrals / Follow Up: Roldan Gayle MD [STAFF PHYSICIAN] - Within 1 Month Alexa Becerra PA [Primary Care Provider] - Within 1 Week Disposition Disposition (needs filled in before D/C Order can be placed): Home, self care
--- NOTE | 2020-09-17 14:47 | CASEMGMT ---
N CM Discharge Follow Up Phone Call: LACE: 12 Strata: 3 Call Date: 09.17.20 Discharge Date: 09.14.20 Time of Call: 1446 Duration: <1 min Admitting Dx: COPD, hypotension RN CM attempted to complete follow up phone call after recent hospitalization. Left message on identified voicemail with call back information.
== END 2020-09-14 17:30 | disposition home or self-care (01) | DRG 309 ==
LOC: ED 11:19 → PCU 13:54
PROVIDERS: Hospitalist; Internal Medicine Interventional Cardiology; Emergency Provider Emergency Medicine; PCP Physician Assistant
DX: I48.91 Unspecified atrial fibrillation (principal); J96.11 Chronic respiratory failure with hypoxia; J84.116 Cryptogenic organizing pneumonia; I95.1 Orthostatic hypotension; E11.9 Type 2 diabetes mellitus without complications; M05.10 Rheumatoid lung disease with rheumatoid arthritis of unspecified site; E86.0 Dehydration; R19.7 Diarrhea, unspecified; K21.9 Gastro-esophageal reflux disease without esophagitis; I10 Essential (primary) hypertension; Z87.891 Personal history of nicotine dependence; Z79.52 Long term (current) use of systemic steroids; E66.9 Obesity, unspecified; Z68.31 Body mass index [BMI] 31.0-31.9, adult; Z79.01 Long term (current) use of anticoagulants; Z90.710 Acquired absence of both cervix and uterus; J44.9 Chronic obstructive pulmonary disease, unspecified
CPT/HCPCS: 36415; 71045; 71275; 80048; 80053; 80202; 82533; 83516; 83690; 84443; 84484; 85025; 85027; 85379; 87070; 87077; 87186; 87205; 87449; 87493; 87506; 87641; 93005; 94640; 99285; J7030; J7040; Q9967; A4216; J0153; J0834; J2405; J3490

== ENCOUNTER 2022-03-29 21:09 | Emergency (ER) | payer MEDICARE, MEDICAID, SELFPAY ==
[2022-03-29 21:10] VITALS: BP 116/67; PULSE 77; RESP 22; TEMP 35.8; O2SAT 95; BMI 30.3
[2022-03-29] MEDS: Ondansetron 4 MG/2 ML Vial IV (21:48)
[2022-03-29] MEDS: Loperamide 2 MG Capsule 4 MG PO (21:48)
[2022-03-29] MEDS: 0.9% Normal Saline 1,000 ML 1000 ML IV ×2 (21:48→23:20)
[2022-03-29 22:18] LABS: Absolute Lymphocyte Count 1.93 X10^3/uL (0.83-4.51); Absolute Neutrophil Count 17.5 X10^3/uL (2.0-7.7); Basophil# 0.18 X10^3/uL; Basophil% 0.8 % (0-1); Eosinophil# 0.44 X10^3/uL; Eosinophils% 2.1 % (0-5); Hematocrit 40.3 % (37-47); Hemoglobin 12.2 g/dL (12.0-15.0); Lymphocyte # 1.93 X10^3/ul (0.83-4.51); Lymphocyte % 9.1 % (19-41); Mean Corp Hgb Conc 30.3 g/dL (32-36); Mean Corpuscular Hgb 30.6 pg (27.0-32.0); Mean Platelet Vol. 10.3 fl (6.2-12.0); Monocyte# 1.08 X10^3/uL; Monocyte% 5.1 % (0-10); NRBC Flagged by Analyzer 0 % (0-5); Neutrophil # 17.49 X10^3/uL (2.7-7.7); Neutrophil % 82.2 % (47-70); Platelet Count 362 K/mm3 (150-450); RBC Distribution Width CV 13.2 % (11.6-14.6); RBC Distribution Width SD 49.4 fl (35.1-43.9); Red Blood Count 3.99 M/mm3 (4.2-5.4); White Blood Count 21.3 K/mm3 (4.4-11.0)
--- NOTE | 2022-03-29 22:28 | EDS_ITS ---
HPI History of Present Illness Chief Complaint: General Illness Detail of Chief Complaint: Generalized illness, diarrhea and 1 episode of vomiting Informant: patient and spouse/S.O. Onset/Context/Timing Onset: Today (Onset this morning.) Context: Sudden Onset Timing: Intermittent and Waxes and wanes Quality: Crampy, pain Location: Generalized Current Severity: Mild Maximum Severity: Moderate Worsened by: Vomiting and diarrhea Relieved by: Nothing Associated Symptoms Associated Symptoms: Thirst, dry mouth, orthostatic symptoms and decreased urine output Narrative Narrative: Patient is a 66-year-old woman with history of chronic atrial fibrillation, anemia, tachycardia, COPD who presents with diarrhea. She is on iron. believes her stool is black. She denies blood or maroon-colored stool. She had episode of emesis which was green in color. There was no blood or coffee grounds noted. She denies fever, chills night sweats. She denies headache, visual, ocular auditory symptoms. She denies respiratory symptoms. She states she has not eaten since yesterday. No one else is ill at home. Prior similar symptoms: No Recent Illness/Hospitalization: No PFSH PFSH Medical History Abdominal cramping Anemia Asthma Atrial fibrillation Bronchitis Chest pain Diabetes Former smoker GERD (gastroesophageal reflux disease) Hypertension Hyperthyroidism Irregular heart beat Lack of appetite Nausea On home oxygen therapy Pneumonia Rheumatoid arthritis Home Medications acetaminophen 500 mg tablet 1,000 mg PO DAILY PRN PRN Pain Or Fever 01/30/19 [History Last Taken 09/10/20] leflunomide 10 mg tablet 10 mg PO DAILY arthritis 01/30/19 [History Last Taken 09/10/20] rivaroxaban 20 mg tablet (Xarelto) 20 mg PO DAILY blood thinner 01/30/19 [History Last Taken 09/01/20] gabapentin 100 mg capsule 100 mg PO DAILY arthritis 05/10/19 [History Last Taken 09/10/20] ipratropium 0.5 mg-albuterol 3 mg (2.5 mg base)/3 mL nebulization soln 3 ml inhalation Q6H.RT copd 05/10/19 [History Last Taken 09/10/20] ferrous gluconate 324 mg (38 mg iron) tablet 1 tab PO BID anemia 02/05/20 [History Last Taken 09/10/20] ondansetron HCl 4 mg tablet (Zofran) 4 mg PO Q6H nausea #10 tabs 08/27/20 [Rx Last Taken 09/10/20] budesonide 0.5 mg/2 mL suspension for nebulization 0.5 mg inhalation BID sob 09/02/20 [History Last Taken 09/10/20] gabapentin 300 mg capsule 300 mg PO QHS pain 09/02/20 [History Last Taken 09/10/20] guaifenesin 1,200 mg tablet, extended release 12 hr 1,200 mg PO BID congestion 09/02/20 [History Last Taken 09/10/20] metoprolol succinate 100 mg tablet,extended release 24 hr 100 mg PO DAILY #30 tabs 09/05/20 [Rx Last Taken 09/10/20] omeprazole 40 mg capsule,delayed release 40 mg PO DAILY #30 caps 09/05/20 [Rx Last Taken 09/10/20] metformin 500 mg tablet,extended release 24 hr 500 mg PO DAILY DM 09/11/20 [History Last Taken 09/10/20] prednisone 10 mg tablet 10 mg PO DAILY #30 tabs 09/14/20 [Rx Last Taken Unknown] sulfamethoxazole 400 mg-trimethoprim 80 mg tablet (Bactrim) 1 tab PO BID #10 tabs 09/14/20 [Rx Last Taken Unknown] verapamil 80 mg tablet 40 mg PO Q8 #90 tabs 09/14/20 [Rx Last Taken Unknown] Allergy/AdvReac Type Severity Reaction Status Date / Time No Known Allergies Allergy Verified 09/02/20 16:24 Surgical History H/O: hysterectomy Social History (Updated 03/29/22 @ 22:[address] Jose Christine MD) household members: spouse Smoking Status: Former smoker substance use type: does not use ROS ROS ED Constitutional Constitutional ED: Denies chills, fever(s), subjective, sweats or weight loss Eyes Eyes: Denies blurry vision, change in vision or diplopia ENT ENT ED: Denies ear pain, rhinorrhea or sore throat Cardiovascular Cardiovascular: Denies chest pain, orthopnea, palpitations, paroxysmal nocturnal dyspnea or racing heartbeat Respiratory/Chest Respiratory/Chest: Denies cough, dyspnea, dyspnea on exertion, orthopnea, paroxysmal nocturnal dyspnea or sputum Gastrointestinal Gastrointestinal: Reports abdominal pain, diarrhea, nausea and vomiting; Denies melena Musculoskeletal Musculoskeletal: Reports arthralgias and myalgias; Denies back pain or neck pain Integumentary Denies Abrasions or rash Neurologic Neurologic: Reports weakness; Denies headache(s) or paresthesias Endocrine Endocrinology: Denies cold intolerance or heat intolerance Hematologic/Lymphatic Hematologic/Lymphatic: Reports systems reviewed and no addt'l complaints, except as documented EXAM Physical Exam Const Vital Signs: 03/29/22 21:10 03/29/22 21:16 03/29/22 23:23 Temperature 96.5 F L Temperature Source Temporal Pulse Rate 77 92 Respiratory Rate 22 H 16 Respiratory Effort Normal Non-Labored Blood Pressure 116/67 124/65 H Blood Pressure Mean 83 84 Pulse Ox 95 98 Oxygen Delivery Method Nasal Cannula Nasal Cannula Oxygen Flow Rate (L/min) 3 3 Positive well nourished, well developed, obese and unkempt Constitutional Narrative: Patient appears ill but not sick. She is in no obvious distress. General Appearance ED: unkempt, well developed and pallor Nutritional Appearance: obese HEENT Reports dry mucous membranes HEENT Narrative: Head is atraumatic normocephalic. Ears normal. TMs normal. Nares patent. Uvula midline. No deviation tongue protrusion. No erythema exudate the posterior pharynx. Mouth ED: Yes dry mucous membranes Mouth: dry mucous membranes Eyes PERRL and EOMs intact bilaterally General Eye ED: Negative for pale conjunctiva or scleral icterus Neck no lymphadenopathy, supple and no JVD Chest Wall inspection of chest normal and palpation of chest normal Resp normal respiratory effort and clear to auscultation bilaterally Cardio regular rate, regular rhythm, S1 normal heart sound, S2 normal heart sound and no murmurs GI non-distended and no masses; Negative for hepatosplenomegaly Auscultation: hypoactive bowel sounds Palpation: soft and tender epigastric; Negative for guarding or splenomegaly Back/Spine no CVA tenderness Back/Spine Narrative: Back appears normal. There is no tender. Extremity normal to inspection Extremity Narrative: There is no asymmetry, swelling, discoloration, leg vein distention, palpable cords or tenderness along the distribution of the deep venous system. General Extremety ED: Negative for edema or tenderness General Extremity: Negative for edema Neuro oriented x3, CN's II-XII intact bilaterally and no sensory deficits noted Sensorium / Orientation: alert Motor Exam: strength 5/5 throughout Psych mental status grossly normal Appearance: unkempt Skin no rashes or lesions noted, no wounds and skin turgor normal General Skin Exam: pallor; Negative for jaundice MDM MDM MDM Narrative Medical decision making narrative: Patient presents with nausea, vomiting diarrhea and abdominal discomfort. Suspect GI etiology. Patient had dark green stool consistent with her taking iron. It was not black. It was not sticky and did not have an odor to it. It was not assessed for blood. Patient did receive 1 L of normal saline wide open since she clinically is dehydrated. Because of her age and medical problems BMP was obtained to assess electrolytes and specifically rule out hypokalemia, renal function and anion gap. Patient was reassessed at 2245. She looks better. She reports she feels better. She still does not have the urge to urinate. An additional liter of normal saline was ordered. Lab Data Attestation: I reviewed the patient's lab results. Lab results narrative: White count is elevated 21,000 100 and there is a shift with no bandemia. H&H is 12.2 and 40.3. Labs: Laboratory Results - last 24 hr 03/29/22 03/29/22 21:21 21:21 WBC 21.3 H RBC 3.99 L Hgb 12.2 Hct 40.3 MCV 101.0 H MCH 30.6 MCHC 30.3 L RDW Std Deviation 49.4 H RDW Coeff of [place] 13.2 Plt Count 362 MPV 10.3 Immature Gran % (Auto) 0.700 Neut % (Auto) 82.2 H Lymph % (Auto) 9.1 L [place] % (Auto) 5.1 Eos % (Auto) 2.1 Baso % (Auto) 0.8 Absolute Neuts (auto) 17.5 H Absolute Lymphs (auto) 1.93 Nucleated RBC % 0 Sodium 136 Potassium 4.2 Chloride 102 Carbon Dioxide 28.0 Anion Gap 6 BUN 15 Creatinine 0.76 Estim Creat Clear Calc 61.86 Est GFR (MDRD) Af Amer 98 Est GFR (MDRD) Non-Af 81 BUN/Creatinine Ratio 19.7 Glucose 121 H Calcium 8.9 Discharge Plan Triage Chief Complaint: General Illness ED Provider: Christine,Jose Dx/Rx/DC Orders Clinical Impression: Abdominal pain, vomiting, and diarrhea, COPD (chronic obstructive pulmonary disease), Type 2 diabetes mellitus, Dehydration, moderate, Orthostatic dizziness Instructions: ED Vomiting and Diarrhea ... Prescriptions: No Action leflunomide 10 MG tablet 10 mg PO DAILY Label Comments: TAKE 1 TABLET BY MOUTH ONCE DAILY Xarelto 20 MG tablet 20 mg PO DAILY Hold Instructions: Resume on 09/15/20. resume medication in 10 days Label Comments: TAKE 1 TABLET BY MOUTH ONCE DAILY WITH DINNER acetaminophen 500 MG tablet 1,000 mg PO DAILY PRN PRN (Reason: Pain Or Fever) ipratropium-albuterol 3 ML solution for nebulization 3 ml inhalation Q6H.RT gabapentin 100 MG capsule 100 mg PO DAILY ferrous gluconate 324 MG tablet 1 tab PO BID Label Comments: TAKE 1 TABLET BY MOUTH TWICE DAILY WITH MEALS ondansetron HCl [Zofran] 4 mg tablet 4 mg PO Q6H Qty: 10 0RF gabapentin 300 mg capsule 300 mg PO QHS Label Comments: TAKE 1 CAPSULE BY MOUTH AT BEDTIME budesonide 0.5 mg/2 mL suspension for nebulization 0.5 mg inhalation BID Label Comments: USE 1 VIAL IN NEBULIZER OVER 5 15 MINUTES EVERY 12 HOURS guaifenesin 1,200 MG tablet extended release 12hr 1,200 mg PO BID metoprolol succinate 100 mg Tablet Extended Release 24 Hr 100 mg PO DAILY Qty: 30 0RF omeprazole 40 mg capsule,delayed release(DR/EC) 40 mg PO DAILY Qty: 30 0RF metformin 500 mg tablet extended release 24 hr 500 mg PO DAILY Label Comments: TAKE 1 TABLET BY MOUTH ONCE DAILY verapamil 80 mg Tablet 40 mg PO Q8 Qty: 90 0RF sulfamethoxazole-trimethoprim [Bactrim] 400-80 mg tablet 1 tab PO BID Qty: 10 0RF prednisone 10 mg tablet 10 mg PO DAILY Qty: 30 0RF Rx Instructions: 4 tabs daily for 4 days, then 3 tabs daily for 4 days, then 2 tabs daily for 4 days, then 1 tab daily for 4 days Primary Care Provider: Alexa Becerra Referrals: Alexa Becerra PA [Primary Care Provider] - 3-5 Days if not improving Disposition Disposition: Home, Self Care
[2022-03-29 22:29] LABS: Anion Gap 6 (5-15); BUN 15 mg/dL (7-18); BUN/Creat Ratio 19.7 RATIO (10-20); Calcium,Total 8.9 mg/dL (8.5-10.1); Chloride 102 mmol/L (98-107); Creatinine, Serum 0.76 mg/dL (0.55-1.02); EST Glomerular Filtration Rate 81 mL/min (>60); Est Glom Filt Rate - Afr Amer 98 mL/min (>60); Estimated Creatinine Clearance 61.86 ml/min; Glucose 121 mg/dL (74-106); Potassium 4.2 mmol/L (3.5-5.1); Sodium Level 136 mmol/L (136-145)
[2022-03-29 23:23] VITALS: BP 124/65; PULSE 92; RESP 16; O2SAT 98
[2022-03-30 00:33] VITALS: BP 132/69; PULSE 90; RESP 20; O2SAT 92
== END 2022-03-30 00:35 | disposition home or self-care (01) ==
PROVIDERS: Emergency Provider Emergency Medicine; PCP Physician Assistant; Visit Provider Emergency Medicine
DX: R10.9 Unspecified abdominal pain (principal); J44.9 Chronic obstructive pulmonary disease, unspecified; E11.9 Type 2 diabetes mellitus without complications; E86.0 Dehydration; R42 Dizziness and giddiness; R11.2 Nausea with vomiting, unspecified; R19.7 Diarrhea, unspecified; E66.9 Obesity, unspecified; Z87.891 Personal history of nicotine dependence; Z99.81 Dependence on supplemental oxygen
CPT/HCPCS: 80048; 85025; 96361; 96374; 99285; J7030; A4216; J2405

== ENCOUNTER 2022-04-06 13:34 | Inpatient (IN) | payer MEDICARE, MEDICAID, SELFPAY ==
[2022-04-06] VITALS (22 sets, daily range): BP systolic 70–123; BP diastolic 51–77; PULSE 83–102; RESP 12–33; TEMP 35.3–36.4; O2SAT 90–100; BMI 30.4; BMI 26.6
--- NOTE | 2022-04-06 13:54 | CT_ITS ---
STUDY: CT BRAIN WITHOUT CONTRAST REASON FOR EXAM: Female, 66 years old. Unresponsive episode RADIATION DOSAGE (If Supplied By Facility): CTDIvol = ( 44.99 ) mGy, DLP = ( 812.98 ) mGycm TECHNIQUE: Transaxial CT imaging of the brain was performed without administration of intravenous contrast material. Individualized dose optimization techniques were used for this CT. COMPARISON: No relevant priors. FINDINGS: Normal soft tissue structures. Normal calvarium. Normal size ventricles and extra-axial spaces for the patient''s age. Normal white matter tracts of the cerebral hemispheres. Normal basal ganglia and thalami. Normal brainstem. Normal cerebellum. There is no intracranial hemorrhage. There are no findings of an acute ischemic infarction. There is opacification maxillary sinus. CT/Brain/Head without Contrast IMPRESSION: Normal unenhanced CT scan of the brain. Opacification of the right maxillary sinus. Electronically Signed: Porter Vallecillo MD at 14:55 EST ,
--- NOTE | 2022-04-06 13:57 | EX.ED.DYSGE1 ---
HPI <RICARDO Amaro - Last Filed: 04/06/22 21:46> History of Present Illness Chief Complaint: Alt LOC Narrative Narrative: Patient presents today with her . She is unable to provide a history so has provided all information. He states she has had diarrhea since last Wednesday. Last week she had a few episodes of vomiting and abdominal pain. Patient began having weakness Wednesday and Wednesday. states she has been eating and he has been giving her Pedialyte to stay hydrated. Today she had an appointment to see her PCP regarding the diarrhea. states she suddenly became unresponsive but was awake. She was not responding to him or answering his questions. He states she is not normally confused but today has been. She has a past medical history of COPD, DM, A. fib. PFSH <RICARDO Amaro - Last Filed: 04/06/22 21:46> COUNT INCLUDES THE [facility] Medical History Abdominal cramping Anemia Asthma Atrial fibrillation Bronchitis Chest pain Diabetes Former smoker GERD (gastroesophageal reflux disease) Hypertension Hyperthyroidism Irregular heart beat Lack of appetite Nausea On home oxygen therapy Pneumonia Rheumatoid arthritis Home Medications acetaminophen 500 mg tablet 1,000 mg PO Q6H PRN PAIN 01/30/19 [History Last Taken 04/06/22] gabapentin 100 mg capsule 200 mg PO BID NERVE PAIN 05/10/19 [History Last Taken 04/06/22] ipratropium 0.5 mg-albuterol 3 mg (2.5 mg base)/3 mL nebulization soln 3 ml inhalation Q6H.RT copd 05/10/19 [History Last Taken 09/10/20] ondansetron HCl 4 mg tablet (Zofran) 4 mg PO Q6H nausea #10 tabs 08/27/20 [Rx Last Taken 04/06/22] budesonide 0.5 mg/2 mL suspension for nebulization 0.5 mg inhalation BID sob 09/02/20 [History Last Taken 09/10/20] budesonide-formoterol HFA 160 mcg-4.5 mcg/actuation aerosol inhaler (Symbicort) 2 puff inhalation BID LUNGS 04/06/22 [History Last Taken 04/06/22] cholecalciferol (vitamin D3) 1,250 mcg (50,000 unit) capsule 50,000 unit PO QMONTH SUPPLEMENT 04/06/22 [History Last Taken Unknown] dextromethorphan-guaifenesin 30 mg-600 mg tablet extended [id number] hr (Mucinex DM) 1 tab PO Q12H CHEST CONGESTION 04/06/22 [History Last Taken 04/06/22] ferrous gluconate 324 mg (37.5 mg iron) tablet 324 mg PO BID SUPPLEMENT 04/06/22 [History Last Taken 03/31/22] gabapentin 400 mg capsule 400 mg PO TID NERVE PAIN 04/06/22 [History Last Taken 04/05/22] leflunomide 20 mg tablet 20 mg PO DAILY ARTHRITIS 04/06/22 [History Last Taken 04/06/22] metoprolol succinate 100 mg tablet,extended release 24 hr 100 mg PO DAILY HEART 04/06/22 [History Last Taken 04/06/22] omeprazole 40 mg capsule,delayed release 40 mg PO DAILY PRN REFLUX 04/06/22 [History Last Taken Unknown] rivaroxaban 20 mg tablet (Xarelto) 20 mg PO DAILY HEART 04/06/22 [History Last Taken 04/05/22] venlafaxine 37.5 mg capsule,extended release 24 hr 37.5 mg PO DAILY MOOD 04/06/22 [History Last Taken 04/05/22] verapamil 80 mg tablet 40 mg PO Q8 HEART 04/06/22 [History Last Taken 04/06/22] Allergy/AdvReac Type Severity Reaction Status Date / Time No Known Allergies Allergy Verified 09/02/20 16:24 Surgical History H/O: hysterectomy Social History household members: spouse Smoking Status: Former smoker substance use type: does not use ROS <RICARDO Amaro - Last Filed: 04/06/22 21:46> ROS ED Constitutional Constitutional ED: Denies chills, fever(s) or sweats Eyes Eyes: Denies blurry vision or change in vision ENT ENT ED: Denies rhinorrhea or sore throat Cardiovascular Cardiovascular: Denies chest pain Respiratory/Chest Respiratory/Chest: Denies cough, dyspnea or dyspnea on exertion Gastrointestinal Gastrointestinal: Reports abdominal pain, diarrhea, nausea and vomiting Genitourinary Genitourinary ED: Denies dysuria, hematuria or urinary frequency Musculoskeletal Musculoskeletal: Reports back pain; Denies myalgias or neck pain Integumentary Denies abscess, Abrasions or rash Neurologic Neurologic: Reports weakness; Denies headache(s) or paresthesias Psychiatric Psychiatric: Denies anxiety or depression EXAM <RICARDO Amaro - Last Filed: 04/06/22 21:46> Physical Exam Const Vital Signs: 04/06/22 13:35 04/06/22 13:40 04/06/22 14:35 Temperature 95.5 F L 97.6 F L Temperature Source Temporal Core Pulse Rate 100 99 Respiratory Rate 33 H 31 H Respiratory Effort Labored Accessory Muscle Use Respiratory Pattern Tachypnea Blood Pressure 116/70 85/60 L Blood Pressure Mean 85 68 Pulse Ox 100 90 Oxygen Delivery Method Non-Rebreather Nasal Cannula Oxygen Flow Rate (L/min) 15 5 Fraction of Inspired Oxygen (FIO2) 04/06/22 14:20 04/06/22 15:00 04/06/22 15:00 Temperature Temperature Source Pulse Rate 102 H 97 89 Respiratory Rate 29 H 28 H 22 H Respiratory Effort Respiratory Pattern Blood Pressure 84/51 L 101/70 Blood Pressure Mean 62 80 Pulse Ox 100 96 93 Oxygen Delivery Method Non-Rebreather Nasal Cannula Oxygen Flow Rate (L/min) 15 5 Fraction of Inspired Oxygen (FIO2) 40 04/06/22 16:10 04/06/22 17:11 04/06/22 17:25 Temperature Temperature Source Pulse Rate 85 92 Respiratory Rate 21 H 25 H Respiratory Effort Respiratory Pattern Blood Pressure 104/68 102/66 87/58 L Blood Pressure Mean 80 78 67 Pulse Ox 94 97 Oxygen Delivery Method Bi-pap Bi-pap Oxygen Flow Rate (L/min) Fraction of Inspired Oxygen (FIO2) Positive well nourished and well developed General Appearance ED: well developed HEENT Reports moist mucous membranes Negative for trauma or tenderness Eyes PERRL and EOMs intact bilaterally Neck no lymphadenopathy and supple Chest Wall inspection of chest normal and palpation of chest normal Resp normal respiratory effort Auscultation: crackles diffuse Cardio Rate: tachycardic Rhythm: abnormal rhythm irregularly irregular GI non-tender, non-distended and no masses Palpation: soft Extremity normal to inspection General Extremety ED: Negative for edema General Extremity: Negative for edema Neuro CN's II-XII intact bilaterally and no sensory deficits noted Motor Exam: strength 5/5 throughout Psych Attitude: agitated Skin no rashes or lesions noted, no wounds and skin turgor normal <Dr. Joe Franco DO - Last Filed: 04/07/22 23:44> Physical Exam Const Vital Signs: 04/06/22 13:35 04/06/22 13:40 04/06/22 14:35 Temperature 95.5 F L 97.6 F L Temperature Source Temporal Core Pulse Rate 100 99 Respiratory Rate 33 H 31 H Respiratory Effort Labored Accessory Muscle Use Respiratory Pattern Tachypnea Blood Pressure 116/70 85/60 L Blood Pressure Mean 85 68 Pulse Ox 100 90 Oxygen Delivery Method Non-Rebreather Nasal Cannula Oxygen Flow Rate (L/min) 15 5 Fraction of Inspired Oxygen (FIO2) 04/06/22 14:20 04/06/22 15:00 04/06/22 15:00 Temperature Temperature Source Pulse Rate 102 H 97 89 Respiratory Rate 29 H 28 H 22 H Respiratory Effort Respiratory Pattern Blood Pressure 84/51 L 101/70 Blood Pressure Mean 62 80 Pulse Ox 100 96 93 Oxygen Delivery Method Non-Rebreather Nasal Cannula Oxygen Flow Rate (L/min) 15 5 Fraction of Inspired Oxygen (FIO2) 40 04/06/22 16:10 04/06/22 17:11 04/06/22 17:25 Temperature Temperature Source Pulse Rate 85 92 Respiratory Rate 21 H 25 H Respiratory Effort Respiratory Pattern Blood Pressure 104/68 102/66 87/58 L Blood Pressure Mean 80 78 67 Pulse Ox 94 97 Oxygen Delivery Method Bi-pap Bi-pap Oxygen Flow Rate (L/min) Fraction of Inspired Oxygen (FIO2) [place] <RICARDO Amaro - Last Filed: 04/06/22 21:46> [facility] Narrative Medical decision making narrative: Chest x-ray shows pneumonia and patient has been started on Levaquin here. Patient was hypotensive and has been given 2 L of fluids. UA suggests acute cystitis and a culture has been sent. Patient was placed on a BiPAP due to respiratory acidosis and respiratory depression. Patient has been admitted to the hospital for respiratory depression, pneumonia, KAY, altered mental status. is comfortable with plan. Lab Data Attestation: I reviewed the patient's lab results. Lab results narrative: WBC 23.4. H&H 11.3 and 38.6. Respiratory acidosis. BUN 55. Creatinine 1.3. GFR 53. Urine shows 25 leuks, 4+ bacteria. Lactic acid 2.4. Labs: Laboratory Results - last 24 hr 04/06/22 04/06/22 04/06/22 13:41 13:41 13:41 WBC 23.4 H RBC 3.73 L Hgb 11.3 L Hct 38.6 MCV 103.5 H MCH 30.3 MCHC 29.3 L RDW Std Deviation 54.8 H RDW Coeff of Lainey 14.6 Plt Count 360 MPV 10.4 Immature Gran % (Auto) 2.200 H Neut % (Auto) 86.1 H Lymph % (Auto) 5.3 L [place] % (Auto) 5.3 Eos % (Auto) 0.3 Baso % (Auto) 0.8 Absolute Neuts (auto) 20.1 H Absolute Lymphs (auto) 1.23 Nucleated RBC % 0.2 Differential Comment COMMENT PT INR APTT Sodium 135 L Potassium 4.6 Chloride 103 Carbon Dioxide 23.0 Anion Gap 9 BUN 55 H Creatinine 1.30 H Estim Creat Clear Calc 37.75 Est GFR (MDRD) Af Amer 53 L Est GFR (MDRD) Non-Af 44 L BUN/Creatinine Ratio 42.3 H Glucose 136 H Lactic Acid 2.4 H* Calcium 8.3 L Urine Color Urine Clarity Urine pH Ur Specific [place] Urine Protein Urine Glucose (UA) Urine Ketones Urine Occult Blood Urine Nitrite Urine Bilirubin Urine Urobilinogen Ur Leukocyte Esterase Urine RBC Urine WBC Ur Squamous Epith Cells Urine Bacteria Urine Mucus 04/06/22 04/06/22 13:41 13:50 WBC RBC Hgb Hct MCV MCH MCHC RDW Std Deviation RDW Coeff of Lainey Plt Count MPV Immature Gran % (Auto) Neut % (Auto) Lymph % (Auto) [place] % (Auto) Eos % (Auto) Baso % (Auto) Absolute Neuts (auto) Absolute Lymphs (auto) Nucleated RBC % Differential Comment PT 27.2 H INR 2.6 APTT 43.6 H Sodium Potassium Chloride Carbon Dioxide Anion Gap BUN Creatinine Estim Creat Clear Calc Est GFR (MDRD) Af Amer Est GFR (MDRD) Non-Af BUN/Creatinine Ratio Glucose Lactic Acid Calcium Urine Color Yellow Urine Clarity Sl. Cloudy Urine pH 5.0 Ur Specific [place]is 1.020 Urine Protein 30 H Urine Glucose (UA) Normal Urine Ketones 5 H Urine Occult Blood 10 H Urine Nitrite Negative Urine Bilirubin 1 H Urine Urobilinogen 1 H Ur Leukocyte Esterase 25 H Urine RBC 0-5 SEEN Urine WBC 0-5 SEEN Ur Squamous Epith Cells 0-5 SEEN Urine Bacteria 4+ Urine Mucus 0 SEEN ABG Data ABG results: ABG 04/06/22 04/06/22 14:58 16:18 Specimen Type ART ART Sample Site L Brach L Brach pH 7.16 L* 7.17 L* Bicarbonate Actual 25.0 24.4 Total CO2 27 26 Base Excess -4 L -4 L O2 Saturation 49 L 93 L O2 % 40 ABG pCO2 70.0 H* 67.0 H ABG pO2 35 L* 88 Adán Test Positive Respiration Rate 12 O2 Delivery Device Cannula Liter Flow 5.0 Vent Mode NIV Tidal Volume 450 POC PEEP 12 Crit Call To/Read Back Yes Yes Blood Gas Notified Whom kirill deleon Radiography Diagnostic Testing: Clinical Impression(s) from Imaging Studies Brain CT 04/06/22 13:54 IMPRESSION: Normal unenhanced CT scan of the brain. Opacification of the right maxillary sinus. Electronically Signed: Porter Vallecillo MD at 14:55 EST , Chest X-Ray 04/06/22 14:16 IMPRESSION: Progressive infiltration in the right hemithorax suggestive of a possible superimposed pneumonia on chronic progressive interstitial fibrosis. Electronically Signed: Porter Vallecillo MD at 15:16 EST , Brain CT does not show any acute intracranial process. Chest x-ray suggests pneumonia. Both of these images have been reviewed and interpreted by attending ED physician. EKG Initial EKG: Attestation: I personally reviewed and interpreted this EKG as follows: Comments: 110 bpm. Atrial fibrillation with RVR. No ST elevation. This EKG has also been reviewed and interpreted by attending ED physician. <Dr. oJe Franco, DO - Last Filed: 04/07/22 23:44> MDM Lab Data Labs: Laboratory Results - last 24 hr 04/06/22 04/06/22 04/06/22 13:41 13:41 13:41 WBC 23.4 H RBC 3.73 L Hgb 11.3 L Hct 38.6 MCV 103.5 H MCH 30.3 MCHC 29.3 L RDW Std Deviation 54.8 H RDW Coeff of Lainey 14.6 Plt Count 360 MPV 10.4 Immature Gran % (Auto) 2.200 H Neut % (Auto) 86.1 H Lymph % (Auto) 5.3 L [place] % (Auto) 5.3 Eos % (Auto) 0.3 Baso % (Auto) 0.8 Absolute Neuts (auto) 20.1 H Absolute Lymphs (auto) 1.23 Nucleated RBC % 0.2 Differential Comment COMMENT PT INR APTT Sodium 135 L Potassium 4.6 Chloride 103 Carbon Dioxide 23.0 Anion Gap 9 BUN 55 H Creatinine 1.30 H Estim Creat Clear Calc 37.75 Est GFR (MDRD) Af Amer 53 L Est GFR (MDRD) Non-Af 44 L BUN/Creatinine Ratio 42.3 H Glucose 136 H Lactic Acid 2.4 H* Calcium 8.3 L Urine Color Urine Clarity Urine pH Ur Specific [place] Urine Protein Urine Glucose (UA) Urine Ketones Urine Occult Blood Urine Nitrite Urine Bilirubin Urine Urobilinogen Ur Leukocyte Esterase Urine RBC Urine WBC Ur Squamous Epith Cells Urine Bacteria Urine Mucus 04/06/22 04/06/22 13:41 13:50 WBC RBC Hgb Hct MCV MCH MCHC RDW Std Deviation RDW Coeff of Lainey Plt Count MPV Immature Gran % (Auto) Neut % (Auto) Lymph % (Auto) [place] % (Auto) Eos % (Auto) Baso % (Auto) Absolute Neuts (auto) Absolute Lymphs (auto) Nucleated RBC % Differential Comment PT 27.2 H INR 2.6 APTT 43.6 H Sodium Potassium Chloride Carbon Dioxide Anion Gap BUN Creatinine Estim Creat Clear Calc Est GFR (MDRD) Af Amer Est GFR (MDRD) Non-Af BUN/Creatinine Ratio Glucose Lactic Acid Calcium Urine Color Yellow Urine Clarity Sl. Cloudy Urine pH 5.0 Ur Specific [place] 1.020 Urine Protein 30 H Urine Glucose (UA) Normal Urine Ketones 5 H Urine Occult Blood 10 H Urine Nitrite Negative Urine Bilirubin 1 H Urine Urobilinogen 1 H Ur Leukocyte Esterase 25 H Urine RBC 0-5 SEEN Urine WBC 0-5 SEEN Ur Squamous Epith Cells 0-5 SEEN Urine Bacteria 4+ Urine Mucus 0 SEEN ABG Data ABG results: ABG 04/06/22 04/06/22 14:58 16:18 Specimen Type ART ART Sample Site L Brach L Brach pH 7.16 L* 7.17 L* Bicarbonate Actual 25.0 24.4 Total CO2 27 26 Base Excess -4 L -4 L O2 Saturation 49 L 93 L O2 % 40 ABG pCO2 70.0 H* 67.0 H ABG pO2 35 L* 88 Adán Test Positive Respiration Rate 12 O2 Delivery Device Cannula Liter Flow 5.0 Vent Mode NIV Tidal Volume 450 POC PEEP 12 Crit Call To/Read Back Yes Yes Blood Gas Notified Whom kirill deleon Radiography Diagnostic Testing: Clinical Impression(s) from Imaging Studies Brain CT 04/06/22 13:54 IMPRESSION: Normal unenhanced CT scan of the brain. Opacification of the right maxillary sinus. Electronically Signed: Porter Vallecillo MD at 14:55 EST , Chest X-Ray 04/06/22 14:16 IMPRESSION: Progressive infiltration in the right hemithorax suggestive of a possible superimposed pneumonia on chronic progressive interstitial fibrosis. Electronically Signed: Porter Vallecillo MD at 15:16 EST , Treatment and Re-Evaluation Narrative: I have personally performed a face to face assessment of the patient and have reviewed the [place] Note. I performed a substantive portion of the visit including all aspects of the following. My brito findings include: History: Patient presents with confusion and decreased responsiveness that occurred today. states that the patient was having difficulty speaking and appeared to be staring off. states the patient would not respond to her. states patient has similar episode last week and was dehydrated. Patient was given fluids at that time and her symptoms improved. denies any fevers or chills. denies any difficulty breathing. Exam: Vital signs are stable except for mild tachypnea of 33. Temperature is 95.5. Oral mucosa is dry. Neck is supple. Trachea is midline. Heart was regular rate and rhythm. Lungs are diminished bilaterally. There is limited respiratory effort noted. Abdomen is soft. Bowel sounds are normal. There is no apparent tenderness. There is no guarding noted. Strength is 5/5 bilaterally upper and lower extremities. There are no apparent sensory deficits noted. Medical Decision Making: EKG was obtained. On my interpretation, it shows atrial fibrillation with a rate of 110. There are no acute ST or T wave changes noted. Patient was given IV fluids. CBC was obtained and is pending. PT was INR and PTT are pending. Basic metabolic profile shows a creatinine of 1.3 and a BUN of 55. Lactate is pending. Urinalysis shows slightly cloudy yellow urine. Leukocyte esterase was 25. There were 0-5 white blood cells. There is 4+ bacteria. CT scan of the brain was obtained. There is no acute intracranial abnormality. There is opacification of the right maxillary sinus. This was interpreted by the radiologist and reviewed by myself. Portable chest x-ray was obtained. There is 1 view. On my interpretation, there is a right lower lobe infiltrate. Radiologist also interpreted the x-ray and agrees. Arterial blood gas showed PCO2 of 70, pH of 7.16. Patient was started on BiPAP. Patient was started on Zosyn. Patient was admitted to ICU. <Dr. Joe Franco, DO - Last Filed: 04/07/22 23:44> Critical Care Time Critical Care Time: Yes Critical care time (excluding procedures): 30-74 minutes (39), Including time spent:, Discussing w/Patient &/or Family/Endodontic Assistant, Discussing w/Consultants, Arranging Admission or Transfer and Performing Direct Patient Care at Bedside Discharge Plan Dx/Rx/DC Orders Clinical Impression: Atrial fibrillation with rapid ventricular response, Pneumonia, KAY (acute kidney injury), Respiratory depression, Altered mental status, Diarrhea Disposition Disposition: [facility]
[2022-04-06] MEDS: 0.9% Normal Saline 1,000 ML 1000 ML IV (14:00)
[2022-04-06 14:05] LABS: Mucous, Urine 0 SEEN /hpf (<or=2+)
[2022-04-06 14:06] LABS: Color, Urine Yellow (Yellow); Glucose, Dipstick Normal (Normal); Ketone-Dipstick 5 mg/dl (Negative); Leukocyte Esterase-Dipstick 25 /ul (Negative); Nitrite-Dipstick Negative (Negative); Occult Blood-Urine 10 /ul (Negative); Protein-Dipstick 30 mg/dl (Negative); Urine Clarity Sl. Cloudy (Clear); Urine Urobilinogen 1 mg/dl (Normal)
[2022-04-06 14:10] LABS: Urine Bilirubin Dipstick 1 mg/dL (Negative)
[2022-04-06 14:12] LABS: Absolute Lymphocyte Count 1.23 X10^3/uL (0.83-4.51); Absolute Neutrophil Count 20.1 X10^3/uL (2.0-7.7); Basophil# 0.19 X10^3/uL; Basophil% 0.8 % (0-1); Eosinophil# 0.08 X10^3/uL; Eosinophils% 0.3 % (0-5); Hematocrit 38.6 % (37-47); Hemoglobin 11.3 g/dL (12.0-15.0); Lymphocyte # 1.23 X10^3/ul (0.83-4.51); Lymphocyte % 5.3 % (19-41); Mean Corp Hgb Conc 29.3 g/dL (32-36); Mean Corpuscular Hgb 30.3 pg (27.0-32.0); Mean Corpuscular Volume 103.5 fL (81-99); Mean Platelet Vol. 10.4 fl (6.2-12.0); Monocyte# 1.24 X10^3/uL; Monocyte% 5.3 % (0-10); NRBC Flagged by Analyzer 0.2 % (0-5); Neutrophil % 86.1 % (47-70); POSITIVE DIFFERENTIAL YES; POSITIVE MORPHOLOGY YES; Platelet Count 360 K/mm3 (150-450); RBC Distribution Width CV 14.6 % (11.6-14.6); RBC Distribution Width SD 54.8 fl (35.1-43.9); Red Blood Count 3.73 M/mm3 (4.2-5.4); White Blood Count 23.4 K/mm3 (4.4-11.0)
--- NOTE | 2022-04-06 14:16 | RAD_ITS ---
STUDY: X-RAY CHEST REASON FOR EXAM: Female, 66 years old. tachypneic TECHNIQUE: Single AP portable view of the chest. COMPARISON: Comparison is made with prior study of 09/11/2020. FINDINGS: EKG electrodes are seen. Since prior study, there has been progressive increase in interstitial markings of both lungs worse in the right hemithorax with areas of confluence more prominent than the right hemithorax. Elevation of the right hemidiaphragm with blunting of the right costophrenic angle. This is suggestive of progressive interstitial fibrosis and possible superimposed infiltrate in the right lung. Normal size heart. Normal mediastinum and jessica. Normal visualized pulmonary arteries. Normal visualized aortic arch and descending thoracic aorta. There are diffuse degenerative changes of the visualized thoracic spine. Normal visualized ribs, clavicles, and shoulders. There is no demonstrated abnormality of the visualized soft tissue structures of the upper abdomen. RAD/Chest 1 View (Portable) IMPRESSION: Progressive infiltration in the right hemithorax suggestive of a possible superimposed pneumonia on chronic progressive interstitial fibrosis. Electronically Signed: Porter Vallecillo MD at 15:16 [facility] ,
[2022-04-06 14:18] LABS: Anion Gap 9 (5-15); BUN 55 mg/dL (7-18); BUN/Creat Ratio 42.3 RATIO (10-20); Calcium,Total 8.3 mg/dL (8.5-10.1); Chloride 103 mmol/L (98-107); EST Glomerular Filtration Rate 44 mL/min (>60); Est Glom Filt Rate - Afr Amer 53 mL/min (>60); Estimated Creatinine Clearance 37.75 ml/min; Glucose 136 mg/dL (74-106); Potassium 4.6 mmol/L (3.5-5.1); Sodium Level 135 mmol/L (136-145)
[2022-04-06 14:21] LABS: Bacteria 4+ /hpf (None Seen); Red Blood Cells-Urine 0-5 SEEN /hpf (0-5); Squamous Epithelial Cells - UA 0-5 SEEN /hpf (5-10); White Blood Cells 0-5 SEEN /hpf (0-5)
[2022-04-06 14:33] LABS: International Normalized Ratio 2.6; Partial Thromboplast Time 43.6 Seconds (24.1-36.2); Prothrombin Time (Protime)PT. 27.2 SECONDS (11.7-14.9)
[2022-04-06 14:42] LABS: Differential Indicated SCAN CRITERIA MET
[2022-04-06 14:43] LABS: Lactic Acid 2.4 mmol/L (0.4-1.9)
[2022-04-06] MEDS: Ondansetron 4 MG/2 ML Vial IV ×2 (14:45→16:39)
[2022-04-06] MEDS: fentaNYL 100 MCG/2 ML Ampul 25 MCG IV (14:46)
--- OUTSIDE RECORDS SUMMARY | 2022-04-06 14:46 | XMS RPT_ITS | CCD ---
:1955 Author Organization [facility] Care Team Providers Name Role Phone Alexa Becerar PA-C Primary Care Provider Yovani Piedra DO Unavailable Alexa BECERRA Primary Care Unavailable CALDERÓN, ASIA Referring Unavailable BECERRA, M ADELINA Primary Care Unavailable HERNAN, Alexa HAMMONDSADELINA Referring Unavailable CALDERÓN, ASIA Attending Unavailable BECERRA, M ADELINA Primary Care Unavailable CALDERÓN, ASIA Referring Unavailable CALDERÓN, ASIA Attending Unavailable HERNAN, M ADELINA Primary Care Unavailable CALDERÓN, ASIA Referring Unavailable BECERRA, M ADELINA Primary Care Unavailable CALDERÓN, ASIA Referring Unavailable CALDERÓN, ASIA Attending Unavailable BECERRA, M ADELINA Primary Care Unavailable CALDERÓN, ASIA Referring Unavailable BECERRA, M ADELINA Primary Care Unavailable CALDERÓN, ASIA Referring Unavailable CALDERÓN, ASIA Attending Unavailable BECERRA, M ADELINA Primary Care Unavailable CALDERÓN, ASIA Referring Unavailable BECERRA, M ADELINA Primary Care Unavailable RICK FENG Referring Unavailable SIRENA ROYAL Attending Unavailable RICK FENG Referring Unavailable HERNAN, M ADELINA Primary Care Unavailable YURIDIA FENGMIT Attending Unavailable BECERRA, M ADELINA Primary Care Unavailable CALDERÓN, ASIA Referring Unavailable CALDERÓN, ASIA Attending Unavailable BECERRA, M ADELINA Primary Care Unavailable CALDERÓN, ASIA Referring Unavailable BECERRA, M ADELINA Primary Care Unavailable CALDERÓN, ASIA Referring Unavailable BECERRA, M ADELINA Primary Care Unavailable CALDERÓN, ASIA Referring Unavailable MIKAL CUELLAR Attending Unavailable HERNAN, M ADELINA Primary Care Unavailable CALDERÓN, ASIA Referring Unavailable BECERRA, M ADELINA Primary Care Unavailable CALDERÓN, ASIA Referring Unavailable BECERRA, M ADELINA Primary Care Unavailable CALDERÓN, ASIA Referring Unavailable BECERRA, M ADELINA Primary Care Unavailable CALDERÓN, ASIA Referring Unavailable CALDERÓN, ASIA Attending Unavailable BECERRA, M ADELINA Primary Care Unavailable CALDERÓN, ASIA Referring Unavailable Becerra Alexa MENDEZ Primary Care Provider Amaladrian DOYovani Unavailable BECERRA, YANCI Primary Care Unavailable BECERRA, YANCI Attending Unavailable BECERRA, YANCI Primary Care Unavailable BECERRA, YANCI Referring Unavailable JUNIOR MATHEW Attending Unavailable BECERRA, YANCI Primary Care Unavailable JUNIOR MATHEW Referring Unavailable BECERRA, YANCI Primary Care Unavailable AMALFITANO, YOVANI Vick Referring Unavailable AMALFITANO, YOVANI Vick Attending Unavailable BECERRA, YANCI Primary Care Unavailable BECERRA, YANCI Referring Unavailable BECERRA, YANCI Primary Care Unavailable BECERRA, YANCI Referring Unavailable AMALFITANO, YOVANI Vick Attending Unavailable BECERRA, YANCI Primary Care Unavailable AMALFITANO, YOVANI Vick Referring Unavailable BECERRA, YANCI Primary Care Unavailable JORGEJACQUELIN Referring Unavailable JORGEJACQUELIN Attending Unavailable BECERRA, YANCI Primary Care Unavailable JORGEJACQUELIN Referring Unavailable BECERRA, YANCI Primary Care Unavailable AMALFITANO, YOVANI Vick Referring Unavailable AMALFITANO, YOVANI Vick Attending Unavailable BECERRA, YANCI Primary Care Unavailable CALDERÓN, ASIA Referring Unavailable BECERRA, YANCI Primary Care Unavailable JORGEJACQUELIN Referring Unavailable BECERRA, YANCI Primary Care Unavailable BECERRA, YANCI Attending Unavailable BECERRA, YANCI Primary Care Unavailable BECERRA, YANCI Referring Unavailable JERAMIE BEGUM Attending Unavailable BECERRA, YANCI Primary Care Unavailable JORGEJACQUELIN M Referring Unavailable BECERRA, YANCI Primary Care Unavailable ISAAC PANCHAL Attending Unavailable BECERRA, YANCI Primary Care Unavailable BECERRA, YANCI Referring Unavailable BECERRA, YANCI Attending Unavailable BECERRA, YANCI Primary Care Unavailable CALDERÓN, ASIA Referring Unavailable Allergies Allergy Reported Allergy Type Date of Reaction(s) Facility Classification Allergen(s) Onset Tree; Allergy to Other: See [place] (20 sources) Translations: substance 1 Comments Clinic [[facility]] Ragweed; Allergy to Other: See [place] (20 sources) Translations: substance 1 Comments Clinic [[place]] Nortriptyline; Drug Allergy Intolerance [facility] (20 sources) Translations: 2 Work Phon e: [NORTRIPTYLINE] Medications Current Medications Medication Drug Class(es) Dates Sig (Normalized) Sig (Orig inal) benoxinate hydrochloride 4 mg/ml / fluor escein sodium 2.5 mg/ml ophthalmic solution Diagnostic Dye Start: 09-19-2021 fluorescein-be nox (1 source) End: 09-20-2021 inate 0.25-0 .4 % 1 Drop (FLURESS ) cholecalciferol 1.25 mg oral capsule Vitamin D Start: 11-18 take 1 capsule by cholecalciferol, (17 sources) End: 07-29-2022 mouth every month Vitamin D3, (VITAMIN D3) 1,250 mcg (50,0 00 unit) cap capsu le Indications: vitamin D deficiency , vitamin D deficiency (hig h dose therapy) Take 1 capsule by mouth once ever y month. 12 capsu le 1 01/30/2022 07/29/2022 Acti ve Comment on above: Take 1 capsule by mouth once every month. gabapentin 400 mg oral capsule Anti-epileptic Agent Start: 02-22-20 take 1 gabapentin (20 sources) End: 08-31-2022 capsule by (NEURONTIN) 400 mouth three mg capsule Take 1 times daily capsule by mout h three times devin ly for 180 days. 9 0 capsule 5 03/04/2022 08/31/2022 Acti ve Start: 02-20-2021 take 2 capsules by mouth twice gabapenti n (NEURONTIN) 100 mg End: 08-31-2022 daily capsule Take 2 capsu les by mouth twice daily for 180 days. 120 capsule 5 03/04/2022 08/31/2022 Active Comment on above: Take 2 capsules by mouth twi ce daily for 180 days. Take 1 capsule by mouth thre e times daily for 180 days. perflutren lipid microspheres 1.3 mL in NaCl (PF) 0.9% 10 mL injection (DEFINITY) Start: 06-27-2020 perflutren lip id (11 sources) End: 09-26-2021 microspheres 1.3 mL in NaCl (PF) 0.9% 10 mL injection (DEFINITY) phenylephrine hydrochloride 25 mg/ml ophthalmic solution alp fournier-1 Adrenergic Start: 09-19-2021 PHENYLephrine 2.5 (1 source) Agonist End: 09-20-2021 % 1 Drop (AK-DILATE, GOLDY-SYNEPHRINE) proparacaine hydrochloride 5 mg/ml ophthalmic solution Local Anesthetic Start: 09-19-2021 proparacaine 0.5 % (1 source) End: 09-20-2021 1 Drop (ALCA INE) 125 ml sodium chloride 9 mg/ml prefilled syringe Start : 06-27-2020 sodium chloride (11 sources) End: 09-26-2021 0.9 % (flush ) 10 mL (BD POSIFLUS H) tropicamide 10 mg/ml ophthalmic solution Anticholinergic Start: tropicamide 1 % 1 (1 source) End: 09-20-2021 Drop (MYDRIA CYL) 24 hr venlafaxine 37.5 mg extended release oral capsule Sero tonin and Start: 11-27-2021 take 1 venlafaxine ER (19 sources) Norepinephrine End: 05-26-2022 capsule by (EFFEXOR X R) 37.5 Reuptake Inhibitor mouth once mg 24 hr capsule daily Indications: neuropathic maylin n Take 1 capsule by mouth once mohsen y. 30 capsule 5 11/27/2021 05/26/2022 Acti ve Comment on above: Take 1 capsule by mouth once daily. Completed/Discontinued Medications Medication Drug Class(es) Dates Sig (Normalized) Sig (Orig inal) acetaminophen 500 mg oral tablet take 2 t ablets by acetaminophen (20 sources) mouth every six hours (TYLEN OL EXTRA as needed STRENGTH) 500 m g tablet Take 1,0 00 mg by mouth every 6 hours as needed . 0 Active Comment on above: Take 1,000 mg by mouth every 6 hours as needed. albuterol 0.833 mg/ml / ipratropium bromide 0.167 mg/m l inhalation solution Anticholinergic, Start: 06-27-2020 take 3 mL by ipratropium-albutero l (20 sources) beta2-Adrenergic End: 08-07-2021 inhalation (DUONEB) 0.5 mg-3 mg(2.5 Agonist four times mg base)/3 mL n ebu daily Indications: St age 5 severe COPD by GOLD classification (HCC) Inhale 3 mL as instructed four times daily. 120 Vial 11 08/07/2021 Acti ve Comment on above: Inhale 3 mL as instructed fo ur times daily. budesonide 0.25 mg/ml inhalation suspension Corticosteroid Start: 0 06-27-2020 budesonide (PULMICORT) 0.5 (7 sources) End: 08-07-2021 mg/2 mL nebu lizer solution Indications: St age 3 severe COPD by GOLD classification ([facility]) Use 2 mL via nebulize r once daily. INHALE 2 ML BY NEBULIZER OVER 5-15 MINUTES EVERY 1 2 HOURS. 60 Vial 11 022 Active Comment on above: Use 2 mL via nebulizer once daily. INHALE 2 ML BY NEBULIZER OVER 5-15 MINUTES EVERY 12 HOURS. Budesonide / formoterol Corticosteroid, Start: take 2 b udesonide-formoterol (10 sources) beta2-Adrenergic 02-06-2022 puff(s) by (SYMBICORT) 160-4.5 Agonist inhalation mcg/actuation i nhaler twice daily Inhale 2 Puffs as instructed twic e daily. 1 Each 5 2021 Active Comment on above: Inhale 2 Puffs as instructed twice daily. COMPOUNDED PRESCRIPTION Start: 02-10-2019 COMPOUNDED PRESCRIPTION Indications: (20 sources) Chronic obstruc tive pulmonary disease, unspecified PHYSICAL FITNESS TRAINER D type ([facility]) Provide nebulizer acces brent kit. DME: [employer]. 1 Each 5 2018 Active Start: 11-29-2018 COMPOUNDED PRESCRIPT ION Indications: Panlobular emphysema ([facility]) , ILD (interstitial lexus ng disease) ([facility]) Accessories for nebulizer J43.1 Panlobular emp hysema ([facility]) (primary encounter diagnosis) J84.9 ILD (interstit ial lung disease) ([facility]) 1 Each 1 11/29/2018 Active Start: 08-30-2018 COMPOUNDED PRESCRIPT ION Indications: Centrilobular emphysema ([facility]) , ILD (interst itial lung disease) ([facility]) , Chronic respiratory failure with hypoxia ([facility]) #1 Continuous Flow Stationary O2 Concen trator Sig: O2 2l/min liter flow Patient is to keep portablel co ncentrator as well J43.2 Centrilobular emphysema ([facility]) J84. 9 ILD (interstitial lung disease) ([facility]) J96.11 Chronic respi ratory failure with hypoxia ([facility]) 1 Each 0 08/30/2018 Active Start: 03-24-2018 COMPOUNDED PRESCRIPT ION Face mask: hypoxia 1 Each 0 03/24/2018 Active Start: 01-28-2018 COMPOUNDED PRESCRIPT ION Portable oxygen concentrator, setting 2 at rest, setting 3 w ith ambulation. 1 Each 1 01/28/2018 Active Start: 12-21-2017 COMPOUNDED PRESCRIPT ION Evaluate patient for portable pulse dose O2 concentrator. 1 E ach 0 12/21/2017 Active Start: 08-23-2017 COMPOUNDED PRESCRIPT ION Portable oxygen concentrator. 1 Each 0 08/23/2017 Active Comment on above: Portable oxygen concentrator . Evaluate patient for portabl e pulse dose O2 concentrator. Portable oxygen concentrator , setting 2 at rest, setting 3 with ambulation. Face mask: hypoxia #1 Continuous Flow Stationar y O2 Concentrator Sig: O2 2l/min liter flow Patient is to keep portablel concentrator as well J43.2 Centrilobular emphysem a ([facility]) J84.9 ILD (interstitial lung disease) ([facility]) J96.11 Chronic respiratory f ailure with hypoxia ([facility]) Accessories for nebulizer J43.1 Panlobular emphysema ( [facility]) (primary encounter diagnosis) J84.9 ILD (interstitial lung disease) ([facility]) Provide nebulizer accessory kit. DME: [facility]. ergocalciferol 1.25 mg oral capsule Provitamin D2 Start: 06-10-2021 take 1 ergocalciferol (20 sources) Compound End: 12-08-2021 capsule by 50,000 unit capsule mouth every (VITAMIN D2, week DRISDOL) Take 1 capsule by mout h one time a week. 20 capsule 0 06/1012/08/2021 Discontinued Comment on above: Take 1 capsule by mouth one time a week. ferrous gluconate 324 mg oral tablet Start: 01-09-2022 take 1 tablet by ferrous gluconate 324 mg (20 sources) mouth twice daily at (37.5 m g iron) tablet mealtime Indications: Ir on deficiency anem ia, unspecified iro n deficiency anem ia type Take 1 tablet b y mouth twice daily wit h meals. 60 tablet 5 Active Start: 03-20-2021 take 1 tablet by mouth twice ferrous glu conate 324 mg (37.5 mg daily at mealtime iron) tablet Indicat ions: Iron deficiency anemia, u nspecified iron deficiency anemia ty pe Take 1 tablet by mouth twic e daily with meals. 60 tablet 5 1 05/21/2020 Active Comment on above: Take 1 tablet by mouth twice daily with meals. 12 hr guaiFENesin 600 mg extended release oral tablet Start: 08-07-2021 take 1 tablet by guaiFENesin (MUCINEX) (20 sources) mouth twice daily 600 mg 12 hr tablet Take 1 tablet b y mouth twice daily. 0 08/07/2021 Acti ve Comment on above: Take 1 tablet by mouth twice daily. leflunomide 20 mg oral tablet Antirheumatic Agent Start: 09-18-2021 take 1 leflunomide (20 sources) End: 01-30-2022 tablet by (ARAVA) 20 m g mouth once tablet daily Indications: rheumatoid arthritis Take 1 tablet by mouth once daily. 90 tablet 0 01/30/2022 Acti ve Start: 06-10-2021 take 1 tablet by mouth once leflunomide (ARAVA) 10 mg tablet End: 09-18-2021 daily Take 1 tablet by mayra th once daily. 90 tablet 0 06/10/19 22 09/18/2021 Discontinued (Course of therapy completed) Comment on above: Take 1 tablet by mouth once daily. Take 1 tablet by mouth once daily 24 hr metFORMIN hydrochloride 500 mg extended release oral t ablet Biguanide Start: 07-02-2021 take 1 tablet metFORMIN ER (11 sources) End: 09-23-2021 by mouth once (GLUCOPHAGE XR) 500 daily mg 24 hr tablet Indications: Hyperglycemia T bill 1 tablet by mouth once daily. 90 table t 1 07/02/2021 06/0 10/2021 Discontinued Comment on above: Take 1 tablet by mouth once daily. 24 hr metoprolol succinate 100 mg extended release oral tabl et beta-Adrenergic Start: 01-04-2021 take 1 tablet metoprolol (20 sources) Ruby End: 09-08-2021 by mouth once succinate E R daily (TOPROL XL) 100 mg Take 1 table t by mouth once daily. 90 table t 3 09/08/2021 Active Comment on above: Take 1 tablet by mouth once daily. Miscellaneous Medical Supply Start: 02-20-2021 Miscellaneous Medical Supply (20 sources) Indications: St age 5 severe COPD by GOLD classif ication ([facility]) , Chronic respira tory failure with hypoxia ([facility]) , Centrilobular emphysema ([facility]) , ILD (interstitial l angela disease) ([facility]) Portable oxygen concentrator 3l/min at all t imes. 1 Each 0 02/20/2021 Acti ve Comment on above: Portable oxygen concentrator 3l/min at all times. nortriptyline 25 mg oral capsule Tricyclic Start: 10-30-2021 shelley e 1 nortriptyline (6 sources) Antidepressant End: 04-28-2022 capsule by (PAMELOR) 25 mg mouth once capsule daily at Indications: bedtime neuropathic maylin n Take 1 capsule by mouth daily at bedtime. 30 capsule 5 10/30/2021 11/27/2021 Discontinued Comment on above: Take 1 capsule by mouth mohsen y at bedtime. omeprazole 40 mg delayed release oral capsule Proton Pump In hibitor Start: 09-05-2020 omeprazole (PRILOSEC) (20 sources) 40 mg capsule T bill 1 capsule by mout h as needed. 0 09/05 Active Comment on above: Take 1 capsule by mouth once daily. Take 1 capsule by mouth as n eeded. ondansetron 4 mg oral tablet Serotonin-3 Start: take 1 ondansetron (ZOFRAN) 4 (20 sources) Receptor 03-27-2021 tablet by mg tablet Take 1 Antagonist mouth every tablet by mouth every six hours as 6 hours as need ed for needed nausea/vomiting . 20 tablet 0 2020 Active Comment on above: Take 1 tablet by mouth every 6 hours as needed for nausea/vomiting. predniSONE 5 mg oral tablet Start: 01-30-2022 take 0.5 tablet by predniSONE (DELTASONE) (20 sources) mouth once daily 5 mg tablet Take 0.5 tablets by mout h once daily. 30 table t 0 01/30/2022 Acti ve Start: 10-22-2021 take 2 tablets by mouth once predniSONE (DELTASONE) 5 mg tablet End: 01-30-2022 daily Take 2 tablets by mo uth once daily. 60 tablet 1 10/23/19 22 01/30/2022 Discontinued Start: 09-18-2021 take 1 tablet by mouth once predniSONE ( DELTASONE) 5 mg tablet End: 10-22-2021 daily Take 1 tablet by mayra th once daily. 40 tablet 0 09/19/19 22 10/22/2021 Discontinued Start: 09-03-2021 take 1 tablet by mouth once predniSONE ( DELTASONE) 1 mg tablet End: 09-18-2021 daily Take 1 tablet by mayra th once daily. 30 tablet 0 09/04/19 22 09/18/2021 Discontinued (Course of therapy completed) Start: 08-03-2021 take 1 tablet by mouth once predniSONE ( DELTASONE) 2.5 mg End: 09-18-2021 daily tablet Take 1 tablet by mouth once daily. 30 tablet 0 0 08/03/2021 09/18/2021 Discontin ued (Course of therapy completed) Start: 07-04-2021 take 1 tablet by mouth once predniSONE ( DELTASONE) 5 mg tablet End: 08-07-2021 daily Take 1 tablet by mayra th once daily. 30 tablet 0 07/05/19 22 08/07/2021 Discontinued Comment on above: Take 1 tablet by mouth once daily. Take 2 tablets by mouth once daily. Take 0.5 tablets by mouth on ce daily. rivaroxaban 20 mg oral tablet Factor Xa Start: 09-17-2020 take 1 tablet rivaroxaban (20 sources) Inhibitor End: 08-21-2021 by mouth once (XARELTO) 2 0 mg daily at tablet Indicati ons: dinner Paroxysmal atri al fibrillation (H [facility]) Take 1 tablet b y mouth daily wit h dinner. 90 tabl et 3 08/21/2021 Acti ve Comment on above: Take 1 tablet by mouth daily with dinner. verapamil hydrochloride 80 mg oral tablet Calcium Channel Start: 09-17-2020 take 0.5 verapamil (CALAN, (20 sources) Ruby End: 11-04-2021 tablet by ISOPTIN) 80 mg mouth every tablet Take 0.5 eight hours tablets by mout h every 8 hours. 135 tablet 3 11/04/2021 Acti ve Comment on above: Take 0.5 tablets by mouth ev lauren 8 hours. Problems Active Problems Problem Problem Date Documented Date Episodic/Chr onic Classification Cardiac dysrhythmias Paroxysmal atrial Onset: 05-28-2017 Ch ronic (20 sources) fibrillation; 05-10-2017 Translations: [Paroxysmal atrial fibrillation] Cardiac dysrhythmias Inappropriate sinus Onset: Episodic (2 sources) tachycardia; 03-17-2022 Translations: [Tachycardia, unspecified] Cataract Bilateral Onset: 07-28-2018 Chronic (20 sources) pseudophakia; 07-28-2018 Translations: [Presence of intraocular lens] Chronic obstructive pulmonary disease and bronchiectasis Centria cinar Onset: 02-29-2020 Chronic (20 sources) emphysema; 03-10-2011 Translations: [Centrilobular emphysema] Diabetes mellitus without complication Type 2 diabetes Onset: 02-29-2020 Chronic (20 sources) mellitus without 11-22-2017 complication; Translations: [Type 2 diabetes mellitus without complications] Diseases of white blood cells Chronic neutrophilia; Onset: Chronic (20 sources) Translations: [Other 06-18-2020 elevated white blood cell count] Disorders of lipid metabolism Mixed hyperlipidemia; Onset: Chronic (3 sources) Translations: [Mixed 03-17-2022 hyperlipidemia] Nutritional deficiencies Vitamin D deficiency; Onset: Chronic (3 sources) Translations: 06-10-2021 [Vitamin D deficiency, unspecified] Osteoarthritis Degenerative joint Onset: Chronic (5 sources) disease involving 06-10-2021 multiple joints; Translations: [Polyosteoarthritis, unspecified] Osteoporosis Osteoporosis; Onset: Chronic (18 sources) Translations: 09-18-2021 [Age-related osteoporosis without current pathological fracture] Other aftercare Long-term current use Epi sodic (1 source) of anticoagulant; Translations: [longterm (current) use of anticoagulants] Other aftercare Taking high risk Episodic (2 sources) medication; Translations: [Other termite renewal inspector (current) drug therapy] Other aftercare technician terminal and repeater (current) Onset: Episo dic (1 source) use of 03-17-2022 anticoagulants; Translations: [Chronic anticoagulation] Other connective tissue disease Myofascial pain; Episodic (3 sources) Translations: [Myalgia, other site] Other connective tissue disease Myalgia, other site; Onset: Episodic (1 source) Translations: 01-01-2022 [Myofascial pain] Other endocrine disorders 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; 05-19-2017 Translations: [Other adrenocortical insufficiency] Other endocrine disorders Other adrenocortical Onset: Chronic (1 source) insufficiency; 05-19-2017 Translations: [Iatrogenic adrenal insufficiency (HCC)] Other eye disorders Bilateral vitreous Onset: 07-28-2018 Ch ronic (20 sources) floaters; 07-28-2018 Translations: [Other vitreous opacities, bilateral] Other lower respiratory disease Interstitial lung Onset: Chronic (20 sources) disease; 06-18-2012 Translations: [Interstitial pulmonary disease, unspecified] Other lower respiratory disease Interstitial Onset: Chronic (2 sources) pulmonary disease, 06-18-2012 unspecified; Translations: [Interstitial pulmonary disease (HCC)] Other nervous system disorders Chronic pain Chronic (2 sources) syndrome; Translations: [Chronic pain syndrome] Other nervous system disorders Chronic pain Onset: Chronic (1 source) syndrome; 01-01-2022 Translations: [Chronic pain syndrome] Other non-traumatic joint disorders Multiple joint pain; Episodic (2 sources) Translations: [Pain in unspecified joint] Other nutritional; endocrine; and metabolic disorders Obese clas s I; Onset: 05-26-2019 Chronic (20 sources) Translations: 05-26-2019 [Obesity, unspecified] Other nutritional; endocrine; and metabolic disorders Obesit y, unspecified; Onset: Chronic (1 source) Translations: 05-26-2019 [Obesity, Class I, BMI 30-34.9] Other screening for suspected conditions (not mental disorders or infectious disease) Protein level - Onset: Episodic (3 sources) finding; 12-26-2021 Translations: [Other specified abnormal findings of blood chemistry] Other upper respiratory disease Allergic rhinitis due Onset: 03-10-2011 Chronic (20 sources) to pollen; 03-10-2011 Translations: [Allergic rhinitis due to pollen] Other upper respiratory disease Chronic rhinitis; Onset: 02-18 Chronic (20 sources) Translations: 03-10-2011 [Chronic rhinitis] Other upper respiratory disease Chronic rhinitis; Onset: Chronic (1 source) Translations: 03-10-2011 [Chronic rhinitis] Residual codes; unclassified Obstructive sleep Onset: 019 Chronic (20 sources) apnea syndrome; 01-23-2019 Translations: [Obstructive sleep apnea (adult) (pediatric)] Residual codes; unclassified Obstructive sleep Onset: Chronic (1 source) apnea (adult) 09-23-2021 (pediatric); Translations: [ECSAR (obstructive sleep apnea)] Respiratory failure; insufficiency; arrest (adult) Chronic hypox emic Onset: 05-19-2017 Chronic (20 sources) respiratory failure; 05-19-2017 Translations: [Chronic respiratory failure with hypoxia] Rheumatoid arthritis and related disease Rheumatoid arthritis Onset : 10-16-2019 Chronic (20 sources) of multiple joints; 05-19-2017 Translations: [Rheumatoid arthritis with rheumatoid factor of multiple sites without organ or systems involvement] Thyroid disorders Hyperthyroidism; Onset: 05-26-2019 Chroni c (12 sources) Translations: 05-10-2017 [Thyrotoxicosis, unspecified without thyrotoxic crisis or storm] Past or Other Problems Problem Problem Date Documented Date Episodic/Chr onic Classification Administrative/social admission Patient encounter Onset: 03-20 Episodic (20 sources) status; Translations: 02-14-2020 [Persons encountering health services in other specified circumstances] Blindness and vision defects Bilateral regular Onset: 018 Episodic (20 sources) astigmatism; 11-22-2017 Translations: [Regular astigmatism, bilateral] Deficiency and other anemia Normocytic anemia; Onset: Episodic (20 sources) Translations: [Anemia, 05-28-2017 unspecified] Diabetes mellitus without complication Prediabetes; Onset: Episodic (20 sources) Translations: 06-28-2017 [Prediabetes] Other aftercare Long-term current use Onset: 05-19-2017 Epi sodic (20 sources) of immunosuppressive 05-19-2017 drug; Translations: [Other fpc (current) drug therapy] Other aftercare Long-term current use Onset: 06-28-2017 Epi sodic (20 sources) of systemic steroid; 06-28-2017 Translations: [technician terminal and repeater (current) use of systemic steroids] Other aftercare longterm (current) use Onset: E pisodic (2 sources) of systemic steroids; 06-28-2017 Translations: [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 of systemic steroids] Other aftercare Other termite renewal inspector Onset: Episodic (1 source) (current) drug therapy; 05-19-2017 Translations: [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] Other ear and sense organ disorders Cholesteatoma; Onset: Episodic (20 sources) Translations: 05-12-2019 [Unspecified cholesteatoma, bilateral] Other lower respiratory disease Multiple nodules of Onset: Episodic (20 sources) lung; Translations: 01-03-2017 [Other nonspecific abnormal finding of lung field] Other lower respiratory disease Other nonspecific Onset: Episodic (1 source) abnormal finding of 09-24-2021 lung field; Translations: [Lung nodule, multiple] Other non-traumatic joint disorders Pain in unspecified Onset: Episodic (2 sources) joint; Translations: 05-12-2021 [Pain in joint, multiple sites] Results Test Name Value Interpretation Reference Range Facility [facility] on 03-30-2022 CNPN Telephone (FAMPWS) Normal [place] [facility] VIVIANA SANTANA ([id number]) 1955 [facility] Date Time Provider Department 03/30/22 Alexa BEECRRA [facility] During your visit today, we recorded the following inf ormation about you: Suzy Haynes RN 03/30/2022 10:15 AM Signed Patient's Hayden call ing to update Rufino Becerra on patient. Hayden reports pt was taken to ER last night by squad due to diarrhea and weakness. (ER Hospital name not obtained). He reports patient was to ld she had a viral infection and was given 2 bags of IV fluid and sent ho wa. No new medications ordered. Pt is not sure if s he was tested for covid or influenza-she states she does not recall having her nose swabbed at all at ER. Had labs drawn and Hayden states they were okay. Pt has no fever, body ach es, or SOB. Pt does have mild cough, mild headache and nausea. Drinking water as bes t as she can. Hayden states he will get pt some pedialyte. Pt vomited once last night after taking cough syrup. Home care, symptom management, rest and fluids encouraged again by this nurse. Hayden asking if Rufino Becerra has any additional advise for patient? Please call Hayden with update. Thank you. Alexa Becerra PA-C 03/30/2022 4:46 PM Signed Sounds like the appropriate treatment was completed,. Let me know if anything is worsening. 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 Please let me know if she is worsening. Thanks, ANDREA Almanza Ma 03/30/2022 5:02 PM Signed notified of provider message Allergies As of Date: 03/30/2022 Noted Allergy Reactio n RAGWEED 03/10/2011 14 - Other: See Comments TREES 03/10/2011 14 - Other: See Comments LIDIAOR (NORTRIPTYLINE) 11/27/2021 5 - Intolerance Comments: Dizziness Date Reviewed: 03/17/2022 Reviewed by: Nicolette Leonardo - Fully Assessed Reason for Visit: Patient Update [1234] Prescriptions as of 03/30/2022 - gabapentin (NEURONTIN) 100 mg capsule Take 2 capsules by mouth twice daily for 180 days. - gabapentin (NEURONTIN) 400 mg capsule Take 1 capsule by mouth three times daily for 180 days . - budesonide-formoterol (SYMBICORT) 160-4.5 mcg/actuat ion inhaler Inhale 2 Puffs as instructed twice daily. - leflunomide (ARAVA) 20 mg tablet Take 1 tablet by mouth once daily. - cholecalciferol, Vitamin D 3, (VITAMIN D3) 1,250 mcg (50,000 unit) cap capsule Take 1 capsule by mouth once every month. - predniSONE (DELTASONE) 5 mg tablet Take 0.5 tablets by mouth once daily. - ferrous gluconate 324 mg (37.5 mg iron) tablet Take 1 tablet by mouth twice daily with meals. - venlafaxine ER (EFFEXOR XR) 37.5 mg 24 hr capsule Take 1 capsule by mouth once daily. - verapamil (CALAN, ISOPTIN) 80 mg tablet Take 0.5 tablets by mouth every 8 hours. - metoprolol succinate ER (TOPROL XL) 100 mg Take 1 tablet by mouth once daily. - rivaroxaban (XARELTO) 20 mg tablet Take 1 tablet by mouth daily with dinner. - ipratropium-albuterol (DUONEB) 0.5 mg-3 mg(2.5 mg ba se)/3 mL nebu Inhale 3 mL as instructed four times daily. - guaiFENesin (MUCINEX) 600 mg 12 hr tablet Take 1 tablet by mouth twice daily. - ondansetron (ZOFRAN) 4 mg tablet Take 1 tablet by mouth every 6 hours as needed for bernabe sea/vomiting. - Miscellaneous Medical Supply Portable oxygen concentrator 3l/min at all times. - omeprazole (PRILOSEC) 40 mg capsule Take 1 capsule by mouth as needed. - COMPOUNDED PRESCRIPTION Provide nebulizer accessory kit. DME: [employer]. - COMPOUNDED PRESCRIPTION Accessories for nebulizer J43.1 Panlobular emphysema ( HCC) (primary encounter diagnosis) J84.9 ILD (interstitial lung dise ase) (HCC) - COMPOUNDED PRESCRIPTION #1 Continuous Flow Stationary O2 Concentrator Sig: O2 2l/min liter flow Patient is to keep portablel concentrator as well J43. 2 Centrilobular emphysema (HCC) J84.9 ILD (interstitial lung disease) ([facility]) J96.11 Chronic respiratory failure with hypoxia (HCC) - COMPOUNDED PRESCRIPTION Face mask: hypoxia - COMPOUNDED PRESCRIPTION Portable oxygen concentrator, setting 2 at rest, setti ng 3 with ambulation. - COMPOUNDED PRESCRIPTION Evaluate patient for portable pulse dose O2 concentrat or. - COMPOUNDED PRESCRIPTION Portable oxygen concentrator. - acetaminophen (TYLENOL EXTRA STRENGTH) 500 mg tablet Take 1,000 mg by mouth every 6 hours as needed. 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 CNOV on 03-17-2022 CNOV Office Visit (CARDMM) Normal [place] [facility] VIVIANA SANTANA ([id number]) 1955 [address] [facility] Time Provider Department 03/17/22 3:00 PM YOVANI PIEDRA During your visit today, we recorded the following inf ormation about you: Pulse Blood pressure Weight Height 106/minute 110/60 79.6 kg 1.6 m Yovani Piedra DO 03/17/2022 3:48 PM Signed [facility] Heart and V[facility] [place] Sanjiv Sprague Department of Cardiovascula r Medicine SECTION OF REGIONAL CARDIOLOGY SUHA: 09/08/2021 Viviana Santana is a 66 year old female with a history of shortness of breath, palpitations and atrial fibrillation who is here today for follow up. HPI: She is doing relatively well since last visit wi th no cardiac complaints. She continues with pulmonary challenges and has O2, 3L ATC with best pulse ox ~ 91%. She is off steroids for the last month and doing ok. She continues with inhaler twice a day and aerosols QID. . She reports chronic dyspnea on exertion with mild efforts primarily related to her CILD. Denies chest pain, orthopnea, PND, palpitati ons, lightheadedness, dizziness, syncope, or edema. Patient denies any regul ar aerobic exercise. Prior history: 04/01/20 She has been doing well sin e last visit other than she was admitted in January 2020 with pneumonia and respiratory failure again. She did got to [facility] for pneumonia admit in January 2019: Preadmission evaluation: SOB and cough x 2 days. No fe kameron. had URI. Which facility: [facility] Dates of visit: !-02/02/19 Primary Diagnosis/es: MSSA, Serratia marcescans pneumonia Chronic hypoxic respiratory failure COPD Secondary: Chronic prednisone Hyperthyroidism ILD Multiple lung nodules CESAR Chronic atrial fibrillation Pre-diabetes RA Chronic immunosuppressant drug therapy Type 2 DM Testing done: resp cultures positive as above sensitive to levaquin 01/30/19 WBC 19.6 hgb 10.6 chems WNL except alb 2.7, g lob 5.2 02/01/19 WBC 13.1 hgb 8.8 RDW WNL. 01/30/19 ABG 7.48-31.8-70--23.7-95% Negative legionella, Atrep Pneum, Resp virus panel Treatment given/Hospital course: IV ATB, O2. Improved. D/C in stable condition with prednisone 40mg daily and levaquin 750mg x 1 week Current symptoms: improved. Finished antibiotics. Feel s back to baseline. Saw Dr. Sofia and started on Gabapentin 100mg TID At prior visit did not start Ivabradine due to cost. Jose ruby assistance information was printed off for her at that visit. She did not send in the paperwork because she's had significant life stressors over the past month. Her son is in rehab for a drug a ddiction, and this has consumed the majority of her time. She was admitted [facility] in April with sepsis and pneumonia and acute respiratory failure requiring vent ilation. During her hospital admission she was noted to be in atrial fibri llation with rapid ventricular response. Her heart rate was controlled wi th beta blockers. She denies any prior history of atrial fibrillation. She w as found to have influenza as well. During her hospitaliz ation she was noted to have a very low TSH at 0.02 and elevated T4 with 1.74. Her thyroid sca n however was not conclusive for hypothyroidism. She has k nown long-standing severe interstitial lung disease and bronchiectasis. She follows with nubia owens at the [facility] now. There was a note that they increased her metoprolol to 50 twice a day of long acting in the hospital however she w as only taking 25 mg daily at this time. Her heart rate was 121 and sinus tachycardi a. She is only able to walk a minimal amount in stores before she is sh ort of breath. She is on home oxygen therapy. She knows she did have a sensation rap id heartbeat during atrial fibrillation and has not had that sensation sin ce. Patient was seen in the office on 05/06/2018 where she was noted to be significantly tachycardic in the 120's. She has a long -standing history of severe interstitial lung disease and bronchiectasis. S he was diagnosed with inappropriate sinus tachycardia, and has been maintain ed on Toprol-XL 50mg daily. She was started on Iv abradine 2.5mg BID for better rate control. She did not start this medication because it was $95 a month a nd she cannot afford this. PAST MEDICAL HISTORY Diagnosis Date Anemia, unspecified Atrial fibrillation (HCC) 05/10/2017 admit Tatianna new onset AF, hyperthyroid lb with aissatou l thyroid scan Bronchiectasis (HCC) Cardiac disease 2020 pt does not know other than she has heart problems Chronic bronchitis (HCC) COPD (chronic obstructive pulmonary disease) (HCC) Chronic bronchitis by history. COVID-19 vaccine series completed 07-27-2020 2nd dose Pfizer Hyperglycemia 12/25/2016 Hyperthyroidism 05/10/2017 05/10/17 [facility] TSH 0.020. FT4 high 1.74, FT3 hi gh 1.83 Symptomatic afib with RVR. NM uptake: no (more content not included)... ECG COMPLETE on 03-17-2022 ECG COMPLETE Ventricular Rate : 106 BPM Normal C [facility] Atrial Rate : 106 BPM P-R Interval : 162 ms QRS Duration : 70 ms Q-T Interval : 314 ms QTC Calculation(Bazett) : 417 ms Calculated P [place] : 60 degrees Calculated R [place] : 22 degrees Calculated T [place] : 55 degrees SINUS TACHYCARDIA WITH PREMATURE ATRIAL COMPLEXES OTHERWISE NORMAL ECG Confirmed by YOVANI PIEDRA D.O. ([id number]) on 03/20/20 1:30:10 PM NAME : VIVIANA SANTANA PID : [id number] : 1955 Gender : Female Race : ORD : [id number] Procedure Date : Mar 17 2022 14:55:05 Edit Date : Mar 20 2022 13:30:16 Diagnosis: SINUS TACHYCARDIA WITH PREMATURE ATRIAL COM PLEXES OTHERWISE NORMAL ECG Confirmed by YOVANI PIEDRA D.O. ([id number]) on 03/20/20 1:30:10 PM Test Reason : Location : 158 : [facility] Overread By : YOVANI PIEDRA D.O. Edited By : YOVANI PIEDRA D.O. Referred By : YOVANI PIEDRA Acquired by : PH, CREATININE BLD on 03-16-2022 Creatinine [Mass/Vol] 0.72 mg/dL Normal 0.51-0.95 [facility] Comment on above: Order Comment: Specimen Type : BLOOD SPECIMENOrdering Facility: [facility] Address: [place] [address] Performed By: #### CRET1 ### #[facility] LABCLIA [id number] [place] [address] [facility] ESTIMATED GLOMERULAR 94 mL/min/1.73m??? Normal >=60 A [facility] FILTRATION RATE [place] Comment on above: Order Comment: Specimen Type : BLOOD SPECIMENOrdering Facility: [facility] Address: [place] [address] Result Comment: Estimated Gl omerular Filtration Rate (eGFR) is calculated using the 2020 CK D-EPI creatinine equation. This equation utilizes serum crea tinine, sex, and age as parameters. The creatinine assay has traceab le calibration to isotope dilution-mass spectrometry. Refer to KDIGO guidelines for clinical interpretation. In patients with unstable renal function, e.g. those with acute kidney inju ry, the eGFR may not accurately reflect actual GFR. Performed By: #### CRET1 ### #[facility] LABCLIA [id number] [place] [address] [place] Creatinine [Mass/Vol] 0.72 mg/dL 0.51 - 0.95 mg/dL C [facility] Estimated Glomerular 94 mL/min/1.73m >=60 mL/min/1.73m [facility] Filtration Rate [facility] on 03-04-2022 [facility] HNO ID: [id number] Normal [facility] Author: Mammography Coordinator Service: ? Author Type: Physician Type: Letter Filed: 03/05/2022 11:34 PM Note Text: March 04, 2022 PID: [id number] Viviana Santana [address] [place] [id number] Dear Ms. Santana, Your recent breast imaging exam on 03/04/2022 showed a possible finding that requires additional imaging studies for a complet e evaluation. Most such findings are probably benign (not cancer). If you have a healthcare provider who ordered/prescrib ed your screening mammogram: Please call [phone] or [phone]: [phone] to schedule an appointment for your additional imaging (i f you have not already done so). If you DO NOT have a healthcare provider (ie you did n ot have an order/prescription for your screening mammogram): Please call to schedule an appointment f or your additional imaging (if you have not already done so). You must have an order/prescription from your physicia n when calling to schedule your appointment. If your order/prescription is not electronic, you must bring the hard copy with you on the day of yo ur exam to avoid delays. Your imaging studies and reports are kept on file at [facility] as part of your permanent medical record, and are availab le for your continuing care. Thank you for allowing us to help in meeting your [facility] care needs. Sincerely, Dr. Henderson Interpreting Radiologist [facility] (Additional imaging) [facility] SCREENING on 03-04-2022 [facility] SCREENING * * *Final Report* * * Normal [facility] DATE OF EXAM: Mar 04 2022 1:53PM [facility] 0581 - [facility] SCREENING / PROCEDURE REASON: Encounter for screening mammogram fo r breast cancer * * * * Physician Interpretation * * * * RESULT: #[id number] - [facility] SCREENING BILATERAL DIGITAL SCREENING MAMMOGRAM WITH CAD: 2021 HISTORY: Encounter For Screening Mammogram For Breast Cancer / Screening Mammogram-Patient reports NO symptoms. /priors availab le for comparison. RESULT: TECHNIQUE: The study was acquired using full field dig ital technology and interpreted from soft copy. Current study was also evaluated with a Computer Aided Detection (CAD). Comparison is made to exams dated: 12/26/2018 mammogram, 12/23/2017 mammogram, and 12/10/2016 mammogram - [facility]. There are scattered fibroglandular elements in both br easts. There is an asymmetry in the left breast outer region seen on the craniocaudal view only. No other significant masses, calcifications, or other findings are seen in either breast. IMPRESSION: INCOMPLETE: NEEDS ADDITIONAL IMAGING EVALU ATION The asymmetry in the left breast is indeterminate. Add itional views are recommended. Latonya Henderson M.D., ch/lanette:03/04/2022 16:31:53 Culture Manager(s): RT Rosa M(R)(M), [facility] letter sent: Additional Imaging Needed Mammogram BI-RADS: 0 Incomplete: needs additional imag ing evaluation If this report indicates you need additional imaging, and it has NOT yet been performed, please call , to schedule. We sincerely thank you for choosing the [facility] for your breast imaging needs. Multiple national specialty organizations have release d breast cancer screening guidelines for women at average risk for dev eloping breast cancer - guidelines that are based on both evidence an d opinion, yet differ on when to start and how often to screen for br east cancer. With representation from Breast Imaging, Internal Medicine, Women's Health, Family Medicine, and Medical/Surgical Oncology, the [facility] has carefully reviewed the data and reached the following consensus: 1) All women should engage in shared decision-making w ith their providers to decide when to start and how often to screen; 2) All women should have the opportunity to start scre ening mammography at age 40; 3) For women ages 45-55, we recommend annual screening mammograms; 4) For women ages 55 and over, we support both the tra nsition from an annual to a biennial interval if this aligns more with patient's values and preferences, or continuation with annual screening ; 5) All women should discuss with their providers when to stop screening mammograms. Passenger Brakeman: Lanette Transcribe Date/Time: Mar 04 2022 1:39P Dictated by: LATONYA HENDERSON MD This examination was interpreted and the report review ed and electronically signed by: LATONYA HENDERSON MD on Mar 04 2022 4:31PM EST [id number] CT CHEST WO IVCON on 02-23-2022 CT CHEST WO IVCON * * *Final Report* * * Normal [facility] DATE OF EXAM: Feb 23 2022 1:35PM [facility] 0541 - CT CHEST WO IVCON / PROCEDURE REASON: Interstitial pulmonary disease (HCC) * * * * Physician Interpretation * * * * EXAMINATION: CHEST CT WITHOUT CONTRAST CLINICAL HISTORY: Interstitial lung disease. Technique: Spiral CT acquisition of the chest from the thoracic inlet to the upper abdomen without contrast. The study was perf ormed following HRCT protocol. MQ: [id number] CT Radiation dose: Integrated Dose-length product (DLP ) for this visit = 245 mGy*cm CT Dose Reduction Employed: Automated exposure control (AEC) and iterative recon Comparison: CT chest on 07/26/2017. RESULT: Limitations: None. Lines, tubes, and devices: None. Lung parenchyma and airways: The central airways are p atent. The bilateral lungs are remarkable for reticular opacities with honeycombing. There are traction bronchiectasis and architectural di stortion. There are scattered tiny nodules in the bilateral lungs. Emp hysema is again noted. No definite groundglass or consolidative opacit ies seen. No masses. Pleural space: No pleural effusions or pneumothorax. Lower neck, lymph nodes, and mediastinum: The imaged t hyroid gland is normal. No supraclavicular or axillary lymphadenopathy . There are a few borderline enlarged mediastinal lymph nodes with or wi thout lymph node calcifications, unchanged. Heart, pericardium, and thoracic vessels: The thoracic aorta and main pulmonary artery are normal in caliber. The cardiac ch ambers are normal in size. No coronary artery atherosclerotic calcificat ions are noted, although the study is not optimized for coronary asses sment. No pericardial effusion or thickening. Bones and soft tissues: The spine shows degenerative c hanges. No destructive bone lesion. The chest wall soft tissue ap pears unremarkable. Upper abdomen: No abnormality in the imaged upper abdo men. Environmental Protection Specialist (topogram) images: No additional findings. IMPRESSION: Findings are suggestive of interstitial lung disease w ith emphysema. The pattern and distribution are more compatible with UIP. Scattered tiny nodules in the bilateral lungs. Borderline enlarged mediastinal lymph nodes, similar t o prior study. Passenger Brakeman: PSCB Transcribe Date/Time: Feb 24 2022 3:47P Dictated by : MAYRA ANDREA MD This examination was interpreted and the report review ed and electronically signed by: MAYRA ANDREA MD on Feb 24 2022 3:54PM EST [id number] CNPN on 02-10-2022 [facility] Normal [facility] VIVIANA SANTANA ([id number]) 1955 F Medical Date Time Provider Department Center 02/10/22 ASIA CALDERÓN During your visit today, we recorded the following inf ormation about you: Sayda Jimenez LPN 02/10/2022 10:23 AM Signed Patient does not have active orders for Reclast. Please place orders so we can get her scheduled at [facility]. Thanks, ROBERTA Villalobos MD 02/10/2022 10:30 AM Signed Addended by: ASIA CALDERÓN on: 02/10/2022 10:30 AM Modules accepted: Orders Allergies As of Date: 02/10/2022 Noted Allergy Reactio n RAGWEED 03/10/2011 14 - Other: See Comments TREES 03/10/2011 14 - Other: See Comments PAMELOR (NORTRIPTYLINE) 11/27/2021 5 - Intolerance Comments: Dizziness Date Reviewed: 02/06/2022 Reviewed by: Junior Mathew MD - Fully Assessed Reason for Visit: Orders [681] Cmt: RECLAST Prescriptions as of 02/10/2022 - budesonide-formoterol (SYMBICORT) 160-4.5 mcg/actuat ion inhaler Inhale 2 Puffs as instructed twice daily. - leflunomide (ARAVA) 20 mg tablet Take 1 tablet by mouth once daily. - cholecalciferol, Vitamin D 3, (VITAMIN D3) 1,250 mcg (50,000 unit) cap capsule Take 1 capsule by mouth once every month. - predniSONE (DELTASONE) 5 mg tablet Take 0.5 tablets by mouth once daily. - ferrous gluconate 324 mg (37.5 mg iron) tablet Take 1 tablet by mouth twice daily with meals. - venlafaxine ER (EFFEXOR XR) 37.5 mg 24 hr capsule Take 1 capsule by mouth once daily. - verapamil (CALAN, ISOPTIN) 80 mg tablet Take 0.5 tablets by mouth every 8 hours. - gabapentin (NEURONTIN) 400 mg capsule Take 1 capsule by mouth three times daily for 180 days . - gabapentin (NEURONTIN) 100 mg capsule Take 2 capsules by mouth twice daily for 180 days. - metoprolol succinate ER (TOPROL XL) 100 mg Take 1 tablet by mouth once daily. - rivaroxaban (XARELTO) 20 mg tablet Take 1 tablet by mouth daily with dinner. - ipratropium-albuterol (DUONEB) 0.5 mg-3 mg(2.5 mg ba se)/3 mL nebu Inhale 3 mL as instructed four times daily. - guaiFENesin (MUCINEX) 600 mg 12 hr tablet Take 1 tablet by mouth twice daily. - ondansetron (ZOFRAN) 4 mg tablet Take 1 tablet by mouth every 6 hours as needed for bernabe sea/vomiting. - Miscellaneous Medical Supply Portable oxygen concentrator 3l/min at all times. - omeprazole (PRILOSEC) 40 mg capsule Take 1 capsule by mouth as needed. - COMPOUNDED PRESCRIPTION Provide nebulizer accessory kit. DME: [employer]. - COMPOUNDED PRESCRIPTION Accessories for nebulizer J43.1 Panlobular emphysema ( HCC) (primary encounter diagnosis) J84.9 ILD (interstitial lung dise ase) (HCC) - COMPOUNDED PRESCRIPTION #1 Continuous Flow Stationary O2 Concentrator Sig: O2 2l/min liter flow Patient is to keep portablel concentrator as well J43. 2 Centrilobular emphysema (HCC) J84.9 ILD (interstitial lung disease) ([facility]) J96.11 Chronic respiratory failure with hypoxia (HCC) - COMPOUNDED PRESCRIPTION Face mask: hypoxia - COMPOUNDED PRESCRIPTION Portable oxygen concentrator, setting 2 at rest, setti ng 3 with ambulation. - COMPOUNDED PRESCRIPTION Evaluate patient for portable pulse dose O2 concentrat or. - COMPOUNDED PRESCRIPTION Portable oxygen concentrator. - acetaminophen (TYLENOL EXTRA STRENGTH) 500 mg tablet Take 1,000 mg by mouth every 6 hours as needed. 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] 05/19/2017 05/19/2017 Iatrogenic adrenal insufficiency (HCC) [E27.49] 2017 Chronic respiratory failure with hypoxia (HCC) *2017 Rheumatoid arthritis involving multiple sites w*2017 longterm current use of immunosuppressive drug*2017 Paroxysmal atrial fibrillation (HCC) [I48.0] 8 Hyperthyroidism [E05.90] 05/10/2017 09/24/2021 Normocytic anemia [D64.9] 05/28/2017 Pre-diabetes [R73.03] 06/28/2017 Current chronic use of systemic steroids [Z79.5*2017 Type 2 diabetes mellitus without complication, *2017 Combined 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-related cataract of both *201701/06/2018 Regular astigmatism, bilateral [H52.223] 11/22/2017 Combined 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-related cataract of right*201701/06/2018 Combined 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-related cataract of left *201701/05/2018 Combined 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-related cataract, right e*201712/15/2017 Status post cataract extraction and insertion o*201707/28/2018 Combined form of age-related cataract, left eye*201701/06/2018 Status post cataract extraction and insertion o*201707/28/2018 Vitreous floaters of both eyes [H43. (more content not included)... CNOV on 02-06-2022 CNOV Office Visit (PULMWS) Normal [place] and VIVIANA Simpson ([id number]) 1955 [facility] Date Time Provider Department 02/06/22 2:45 PM JUNIOR MATHEW PULMWS During your visit today, we recorded the following inf ormation about you: Pulse Respiration Blood pressure Weight 88/minute 20/minute 106/74 84.4 kg Height 1.6 m Junior Mathew MD 02/06/2022 8:36 PM Signed . Respiratory [place] Note Patient name: Viviana Santana PCP: Alexa Becerra PA-C CC: Follow-up COPD HPI: Viviana Santana 66 year old obese female forme r smoker (quitting 2010) with PMH significant for COPD, atrial fibrillation, chronic hypoxemic respiratory failure, bronchiectasis, hypothyroidism, rheumatoid ar thritis, ILD former patient of Dr. Freeman. Last hospitalized two years ago for pneumonia. She has chronic sputum production, yellow-green in color, not difficult to ex pectorate. Dyspnea on exertion. Denies audible wheezing or chest pain. She i s currently not on inhaled therapy. Established with a new powerhouse mechanic due to insurance change in coverage. Current treatment consists of prednisone 10 mg a day, Arava 20 mg a day, Orencia. Updated pulmonary functi on tests combined moderate obstruction and restriction and moderate reduction in diffusing ca pacity. Last chest CT over a year ago which showed extensive fibrotic changes with bronchiectasis and focal area of possible organizing pneumonia. No recent hospitalization for pneumonia. No recent treatment for bronchitis with ant ibiotics. DME: [facility], 3 L DATA: PFT 07/2021: Review of pulmonary function test show combined obstru ction and restriction with low diffusing capacity Labs: Component Ref Range AND Units 2 wk ago (01/19/22) WBC 3.70 - 11.00 k/uL 12.57 High RBC 3.90 - 5.20 m/uL 3.73 Low Hemoglobin 11.5 - 15.5 g/dL 11.3 Low Hematocrit 36.0 - 46.0 % 38.4 MCV 80.0 - 100.0 fL 102.9 High MCH 26.0 - 34.0 pg 30.3 MCHC 30.5 - 36.0 g/dL 29.4 Low RDW-CV 11.5 - 15.0 % 13.5 Platelet Count 150 - 400 k/uL 294 MPV 9.0 - 12.7 fL 10.6 Neut% % 77.4 Abs Neut 1.45 - 7.50 k/uL 9.72 High Lymph% % 12.4 Abs Lymph 1.00 - 4.00 k/uL 1.56 Washburn% % 5.5 Abs [place]burn <0.87 k/uL 0.69 Eosin% % 3.3 Abs Eosin <0.46 k/uL 0.42 Baso% % 1.0 Abs Baso <0.11 k/uL 0.13 High Immature Gran % % 0.4 Abs Immature Gran <0.10 k/uL 0.05 NRBC /100 WBC 0.0 Absolute nRBC <0.01 k/uL <0.01 Diff Type Auto Imaging / Diagnostic Studies: Reviewed [facility] from [facility] 08/2020: I personally reviewed images which show emphysema, ext ensive fibrosis and bronchiectasis as well as a focal area of possible org anizing pneumonia PAST MEDICAL HISTORY Diagnosis Date Anemia, unspecified Atrial fibrillation (HCC) 05/10/2017 admit Tatianna new onset AF, hyperthyroid lb with aissatou l thyroid scan Bronchiectasis (HCC) Cardiac disease 2020 pt does not know other than she has heart problems Chronic bronchitis (HCC) COPD (chronic obstructive pulmonary disease) (HCC) Chronic bronchitis by history. COVID-19 vaccine series completed 07-27-2020 2nd dose Pfizer Hyperglycemia 12/25/2016 Hyperthyroidism 05/10/2017 05/10/17 Tatianna TSH 0.020. FT4 high 1.74, FT3 hi gh 1.83 Symptomatic afib with RVR. NM uptake: no focal areas of uptake. TSab negativ e. Microsomal Ab neg Rheumatoid arthritis (HCC) ALLERGIES Allergen Reactions Ragweed Other: See Comments Trees Other: See Comments Pamelor [Nortriptyl* Intolerance Dizziness leflunomide (ARAVA) 20 mg tablet Take 1 tablet by mout h once daily. cholecalciferol, Vitamin D3, (VITAMIN D3) 1,250 mcg (50,000 unit) cap capsule Take 1 capsule by mouth once every month. predniSONE (DELTASONE) 5 mg tablet Take 0.5 tablets by mouth once daily. ferrous gluconate 324 mg (37.5 mg iron) tablet Take 1 tablet by mouth twice daily with meals. venlafaxine ER (EFFEXOR XR) 37.5 mg 24 h r capsule Take 1 capsule by mouth once daily. verapamil (CALAN, ISOPTIN) 80 mg tablet Take 0.5 table ts by mouth every 8 hours. gabapentin (NEURONTIN) 400 mg capsule Take 1 capsule b y mouth three times daily for 180 days. gabapentin (NEURONTIN) 100 mg capsule Ta ke 2 capsules by mouth twice daily for 180 days. metoprolol succinate ER (TOPROL XL) 100 mg Take 1 tablet by mouth once daily. rivaroxaban (XARELTO) 20 mg tablet Take 1 tablet by mo uth daily with dinner. ipratropium-albuterol (DUONEB) 0.5 mg-3 mg(2.5 m g base)/3 mL nebu Inhale 3 mL as instructed four times daily. guaiFENesin (MUCINEX) 600 mg 12 hr tablet Take 1 tablet by mouth twice daily. [employer] Portable ox ygen concentrator 3l/min at all times. omeprazole (PRILOSEC) 40 mg capsule Take 1 capsule by mouth as needed. COMPOUNDED PRESCRIPTION Provide nebulizer accessory severiano morrissey DME: Mohit. COMPOUNDED PRESCRIPTION Accessories for nebulizer J43.1 Mallorie (more content not included)... CNOV on 01-30-2022 CNOV Office Visit (RHBATH) Normal [employer] [facility] VIVIANA SANTANA ([id number]) 1955 F Medical Date Time Provider Department Center 01/30/22 11:40 AM ASIA CALDERÓN RHBNONA During your visit today, we recorded the following inf ormation about you: Temperature Pulse Respiration Blood pressure 94.6 degrees 94/minute 20/minute 130/78 Asia Calderón MD 01/30/2022 12:01 PM Signed RHEUMATOLOGY PROGRESS NOTE Patient is here for a follow up visit for Patient pres ents with: Rheumatoid Arthritis HPI: Viviana Vick Esther is a 66 year old female who presents joint pain Last appt with Mikal lopez 12/08 Orencia IV every 4 weeks (first dose 11/10/2021), has h ad 2 doses Arava 20 mg daily Prednisone 5 mg daily Off vit D 2-3 mo Pain in toes, intermittent, no swelling, AM stiffness lasting 30 min. she was started on nortriptyline by pain management wh ich is helping with tingling- got dizzy, now taking venlafaxine which is h elping. On pred 10 mg since 10/22/21. Brief Rheumatological history - Diagnosed with RA 2016. She was admitted at [facility] - double pneumonia, RA. She was seeing rheum but she had insura nce conflicts. She was prescribed prednisone, gabapentin, Arava. She presente d with toe tingling, knee, hand swelling, elbows, shoulders, neck. She was once diagnosed with anemia. not much improvement with Arava. Ran out of Arava few months ago. I am in pain all the time . Only steroids help. PCP sent pr ed She had shoulder injections. PAF, COPD on O2, ILD, DM2, polyneuropathy. She follows with pulm in [place]. RA, chronic steroids, adrenal insuff Family h/o autoimmune disease - father with psoriasis Smoking - ex smoker quit 2010 Interval Review of Systems CONSTITUTIONAL: Recent Weight change: No Fever: No EYES: Dryness in nose: No Dryness of mouth: No Oral ulcers: No CARDIOVASCULAR: Pain in chest: No RESPIRATORY: Shortness of breath: No Cough: No GASTROINTESTINAL: Nausea: No Vomiting: No Changes in bowel movements: No Jaundice: No Heartburn: No MUSCULOSKELETAL: Per HPI INTEGUMENTARY: Rash: No HEMATOLOGIC/LYMPHATIC: Anemia: No NEUROLOGICAL SYSTEM: Headaches: No Sensitivity or pain of hands and/or feet: No PSYCHIATRIC: Anxiety: No Poor sleep: No PAST MEDICAL HISTORY Diagnosis Date Anemia, unspecified Asthma Atrial fibrillation (HCC) 05/10/2017 admit Tatianna new onset AF, hyperthyroid lb with aissatou l thyroid scan Cardiac disease 2020 pt does not know other than she has heart problems Chronic bronchitis (HCC) COPD (chronic obstructive pulmonary disease) (HCC) Chronic bronchitis by history. COVID-19 vaccine series completed 07-27-2020 2nd dose Pfizer Hyperglycemia 12/25/2016 Hyperthyroidism 05/10/2017 05/10/17 Tatianna TSH 0.020. FT4 high 1.74, FT3 hi gh 1.83 Symptomatic afib with RVR. NM uptake: no focal areas of uptake. TSab negativ e. Microsomal Ab neg Rheumatoid arthritis (HCC) Leflunomide. Dayanna Silva MD. 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 ) 12/2016 Leflunomiddavid, Dayanna Silva MD PAST SURGICAL HISTORY Procedure Laterality Date COLONOSCOPY FLX DX W/COLLJ SPEC WHEN PFRMD 10/09/2019 Colonoscopy ESOPHAGOGASTRODUODENOSCOPY TRANSORAL DIAGNOSTIC 2019 EGD LIG/TRNSXJ FLP TUBE ABDL/VAG APPR UNI/BI XCAPSL CTRC RMVL INSJ IO LENS PROSTH W/O ECP Right Cataract Extraction with PC IOL XCAPSL CTRC RMVL INSJ IO LENS PROSTH W/O ECP Left 12/18 Cataract Extraction with PC IOL History Review: I have reviewed and modified as needed , the following during this visit: Allergies, Past Medical History, Past Surgical History, Past Family History, Past Social History. BP 130/78 Pulse 94 Temp (!) 34.8 ?C (94.6 ?F) (Tem poral) Resp 20 LMP (LMP Unknown) SpO2 97% Physical Exam GENERAL: Well appearing, alert, comfortable, in no acu te distress, well-hydrated, well nourished. HEENT: Negative for external ears normal. Canals are clear. Both TMs visualized and are normal. Eye Exam nor mal. External nose normal, no nasal ulcer or throat ulcer. NECK: NECK Supple, no adenopathy; thyroid symmetric, n ormal size, no bruits CARDIAC: regular rate and rhythm, No murmur asculated. and Equal peripheral pulses RESPIRATORY: Lungs clear to auscultation. No wheezing, rhonchi, rales VASCULAR: RRR without murmur, gallop, or rubs. No ecto py. NEURO: Motor and sensory exam normal MOTOR: Normal; including tone, gait, stressed gait, po wer and coordination. SKIN: Negative for alopecia, skin rash, malar rash, sk in lesion, skin ulcer, pits, thickening, color changes, telangiectasias , nail changes, nail ridging, nail pitting, onycholysis MUSCULOSKELETAL: DIPS: Normal PIPS: Abnormal, mild synovitis all PIPs bl MCPs: Abnormal, synovitis MCP 2,3 left Wrists: Normal Elbows: Normal Shoulders: Normal C-Spine: Normal Hips: Normal Knees: Abnormal, effusion b (more content not included )... 25(OH)D3 [facility] on 01-19-2022 25-hydroxyvitamin D3 [Mass/Vol] 50.1 ng/mL Normal >=30.0 [facility] Comment on above: Order Comment: Specimen Type : BLOOD SPECIMENOrdering Facility: [facility] Address: [address] [place] [address] Result Comment: Classificati on of 25 [place] Vitamin D status: Deficiency: <= 20.0 ng/ml. Insufficiency: 21.0-29.0 ng/ ml. Sufficiency: >= 30.0 ng/ml. Performed By: #### 1989-3 ## ##[facility] LABORATORYCLIA [id number] [address] [place] CBC W Auto Differential panel (Bld) on 01-19-2022 Basophils (Bld) [#/Vol] 0.13 10*3/uL High <0.11 [facility] Comment on above: Order Comment: Specimen Type : BLOOD SPECIMENOrdering Facility: [facility] Address: [address] [place] [address] Performed By: #### 71056-5 # ###[facility] LABORATORYCLIA [id number] [address] [place] Basophils/100 WBC (Bld) 1.0 % Normal [facility] Comment on above: Order Comment: Specimen Type : BLOOD SPECIMENOrdering Facility: [facility] Address: [address] [place] [address] Performed By: #### 86231-1 # ###[facility] LABORATORYCLIA [id number] [address] [place] Differential cell count method Nom (Bld) Auto Normal [facility] Comment on above: Order Comment: Specimen Type : BLOOD SPECIMENOrdering Facility: [facility] Address: [address] [place] [address] Performed By: #### 03159-1 # ###[facility]ORATORYCLIA [id number] [address] [place] Eosinophils (Bld) [#/Vol] 0.42 10*3/uL Normal <0.46 [facility] Comment on above: Order Comment: Specimen Type : BLOOD SPECIMENOrdering Facility: [facility] Address: [address] [place] [address] Performed By: #### 37790-6 # ###[facility] LABORATORYCLIA [id number] [address] Eosinophils/100 WBC (Bld) 3.3 % Normal [facility] Comment on above: Order Comment: Specimen Type : BLOOD SPECIMENOrdering Facility: [facility] Address: [address] [place] [address] Performed By: #### 23588-6 # ###[facility] LABORATORYCLIA [id number] [address] Erythrocyte distribution width 13.5 % Normal 11.5-15.0 [facility] (RBC) [Ratio] Comment on above: Order Comment: Specimen Type : BLOOD SPECIMENOrdering Facility: [facility] Address: [address] [place] [address] Performed By: #### 55443-4 # ###[facility] LABORATORYCLIA [id number] [address] [place] Hematocrit (Bld) [Volume 38.4 % Normal 36.0-46.0 [facility] fraction] Comment on above: Order Comment: Specimen Type : BLOOD SPECIMENOrdering Facility: [facility] Address: [address] [place] [address] Performed By: #### 01395-0 # ###[facility] LABORATORYCLIA [id number] [address] [place] Hemoglobin (Bld) [Mass/Vol] 11.3 g/dL Low 11.5-15.5 [facility] Comment on above: Order Comment: Specimen Type : BLOOD SPECIMENOrdering Facility: [facility] Address: [address] [place] [address] Performed By: #### 90931-3 # ###[facility]ORATORYCLIA [id number] [facility] [place] [id number] [place] [address] OF [facility] IMMATURE GRAN % 0.4 % Normal [facility] Comment on above: Order Comment: Specimen Type : BLOOD SPECIMENOrdering Facility: [facility] Address: [address] [place] [address] Performed By: #### 44896-7 # ###[facility]ORATORYCLIA [id number] [facility], [address] IMMATURE GRAN ABS 0.05 k/uL Normal <0.10 [facility] Comment on above: Order Comment: Specimen Type : BLOOD SPECIMENOrdering Facility: [facility] Address: [address] [place] [address] Performed By: #### 47088-3 # ###[facility]ORATORYCLIA [id number] [facility] [place], [address] STATES OF [facility] Lymphocytes (Bld) [#/Vol] 1.56 10*3/uL Normal 1.00-4.00 [facility] Comment on above: Order Comment: Specimen Type : BLOOD SPECIMENOrdering Facility: [facility] Address: [address] [place] [address] Performed By: #### 02417-2 # ###[facility]ORATORYCLIA [id number] [facility], [address] Lymphocytes/100 WBC (Bld) 12.4 % Normal [facility] Comment on above: Order Comment: Specimen Type : BLOOD SPECIMENOrdering Facility: [facility] Address: [address] [place] [address] Performed By: #### 68843-8 # ###[facility]ORATORYCLIA [id number] [facility] [place], [address] [place] MCH (RBC) [Entitic mass] 30.3 pg Normal 26.0-34.0 [facility] Comment on above: Order Comment: Specimen Type : BLOOD SPECIMENOrdering Facility: [facility] Address: [address] [place] [address] Performed By: #### 78359-1 # ###[facility] LABORATORYCLIA [id number] [address] STATES OF [facility] MCHC (RBC) [Mass/Vol] 29.4 g/dL Low 30.5-36.0 [facility] Comment on above: Order Comment: Specimen Type : BLOOD SPECIMENOrdering Facility: [facility] Address: [address] [place] [address] Performed By: #### 28739-1 # ###[facility] LABORATORYCLIA [id number] [address] STATES OF [facility] MCV (RBC) [Entitic vol] 102.9 fL High 80.0-100.0 [facility] Comment on above: Order Comment: Specimen Type : BLOOD SPECIMENOrdering Facility: [facility] Address: [address] [place] [address] Performed By: #### 97850-8 # ###[facility] LABORATORYCLIA [id number] [address] Monocytes (Bld) [#/Vol] 0.69 10*3/uL Normal <0.87 [facility] Comment on above: Order Comment: Specimen Type : BLOOD SPECIMENOrdering Facility: [facility] Address: [address] [place] [address] Performed By: #### 24668-2 # ###[facility] LABORATORYCLIA [id number] [address] Monocytes/100 WBC (Bld) 5.5 % Normal [facility] Comment on above: Order Comment: Specimen Type : BLOOD SPECIMENOrdering Facility: [facility] Address: [address] [place] [address] Performed By: #### 46316-0 # ###[facility]ORATORYCLIA [id number] [facility] [place] [id number] [address] [place] Neutrophils (Bld) [#/Vol] 9.72 10*3/uL High 1.45-7.50 [facility] Comment on above: Order Comment: Specimen Type : BLOOD SPECIMENOrdering Facility: [facility] Address: [address] [place] [address] Performed By: #### 70988-6 # ###[facility]ORATORYCLIA [id number] [facility], [address] [place] Neutrophils/100 WBC (Bld) 77.4 % Normal [facility] Comment on above: Order Comment: Specimen Type : BLOOD SPECIMENOrdering Facility: [facility] Address: [address] [place] [address] Performed By: #### 77112-3 # ###[facility]ORATORYCLIA [id number] [facility], [address] [place] Nucleated RBC (Bld) [#/Vol] 10*3/uL Normal <0.01 [facility] Comment on above: Order Comment: Specimen Type : BLOOD SPECIMENOrdering Facility: [facility] Address: [address] [place] [address] Performed By: #### 08613-2 # ###[facility]ORATORYCLIA [id number] [facility], [address] [place] Nucleated RBC/100 WBC (Bld) 0.0 /100 WBC Normal [facility] [Ratio] Comment on above: Order Comment: Specimen Type : BLOOD SPECIMENOrdering Facility: [facility] Address: [address] [place] [address] Performed By: #### 92102-0 # ###[facility]ORATORYCLIA [id number] [place] [facility], [address] Platelet mean volume (Bld) 10.6 fL Normal 9.0-12.7 [facility] [Entitic vol] Comment on above: Order Comment: Specimen Type : BLOOD SPECIMENOrdering Facility: [facility] Address: [address] Performed By: #### 32474-9 # ###[facility]ORATORYCLIA [id number] [place] [address] [facility] Platelets (Bld) [#/Vol] 294 10*3/uL Normal 150-400 [facility] Comment on above: Order Comment: Specimen Type : BLOOD SPECIMENOrdering Facility: [facility] Address: [facility] KINGJacey [address] Performed By: #### 21477-4 # ###[facility]ORATORYCLIA [id number] [place] [address] [facility] RBC (Bld) [#/Vol] 3.73 10*6/uL Low 3.90-5.20 [facility] Comment on above: Order Comment: Specimen Type : BLOOD SPECIMENOrdering Facility: [facility] Address: [facility] [address] Performed By: #### 87515-9 # ###[facility] LABORATORYCLIA [id number] [facility] [place] [address] [place] [address] [place] [facility] WBC (Bld) [#/Vol] 12.57 10*3/uL High 3.70-11.00 [facility] Comment on above: Order Comment: Specimen Type : BLOOD SPECIMENOrdering Facility: [facility] Address: [address] Performed By: #### 97279-3 # ###[facility]ORATORYCLIA [id number] [place] [address] [facility] Comprehensive metabolic 2000 panel on 1 Albumin [Mass/Vol] 3.6 g/dL Low 3.9-4.9 [facility] Comment on above: Order Comment: Specimen Type : BLOOD SPECIMENOrdering Facility: [facility] Address: [address] [place] [address] Performed By: #### 77351-0 # ###[facility]ORATORYCLIA [id number] [facility] [place], [place] [id number] [place] [address] [place] ALP [Catalytic activity/Vol] 105 U/L Normal 34-123 [facility] Comment on above: Order Comment: Specimen Type : BLOOD SPECIMENOrdering Facility: [facility] Address: [address] [place] [address] Performed By: #### 49849-9 # ###[facility]ORATORYCLIA [id number] [facility], [address] [place] ALT With P-5'-P [Catalytic 8 U/L Normal 7-38 [facility] activity/Vol] Comment on above: Order Comment: Specimen Type : BLOOD SPECIMENOrdering Facility: [facility] Address: [address] [place] [address] Performed By: #### 29498-6 # ###[facility]ORATORYCLIA [id number] [facility], [address] [place] Anion gap [Moles/Vol] 11 mmol/L Normal 9-18 [facility] Comment on above: Order Comment: Specimen Type : BLOOD SPECIMENOrdering Facility: [facility] Address: [address] [place] [address] Performed By: #### 05482-4 # ###[facility]ORATORYCLIA [id number] [facility], [address] [place] AST With P-5'-P [Catalytic 17 U/L Normal 13-35 [facility] activity/Vol] Comment on above: Order Comment: Specimen Type : BLOOD SPECIMENOrdering Facility: [facility] Address: [address] [place] [address] Performed By: #### 22116-9 # ###[facility]ORATORYCLIA [id number] [facility], [address] [place] Bilirubin [Mass/Vol] 0.2 mg/dL Normal 0.2-1.3 [facility] Comment on above: Order Comment: Specimen Type : BLOOD SPECIMENOrdering Facility: [facility] Address: [address] [place] [address] Performed By: #### 23869-6 # ###[facility]ORATORYCLIA [id number] [place] [address] [place] Calcium [Mass/Vol] 8.7 mg/dL Normal 8.5-10.2 [facility] Comment on above: Order Comment: Specimen Type : BLOOD SPECIMENOrdering Facility: [facility] Address: [address] [place] [address] Performed By: #### 73661-8 # ###[facility]ORATORYCLIA [id number] [place] [address] [place] Chloride [Moles/Vol] 99 mmol/L Normal 97-105 [facility] Comment on above: Order Comment: Specimen Type : BLOOD SPECIMENOrdering Facility: [facility] Address: [address] [place] [address] Performed By: #### 21398-6 # ###[facility]ATORYCLIA [id number] [facility] [place] [id number] [place] [address] [place] CO2 [Moles/Vol] 27 mmol/L Normal 22-30 [facility] Comment on above: Order Comment: Specimen Type : BLOOD SPECIMENOrdering Facility: [facility] Address: [address] [place] [address] Performed By: #### 27747-2 # ###[facility]ORATORYCLIA [id number] [facility] [place] [id number] [place] [address] [place] Creatinine [Mass/Vol] 0.82 mg/dL Normal 0.58-0.96 [facility] Comment on above: Order Comment: Specimen Type : BLOOD SPECIMENOrdering Facility: [facility] [facility] Address: [address] [place] [address] Performed By: #### [id number] # ###[facility]ORATORYCLIA [id number] [facility] [place], [place] [id number] [address] [place] ESTIMATED GLOMERULAR 80 mL/min/1.73m??? Normal >=60 A [facility] Center Comment on above: Order Comment: Specimen Type : BLOOD SPECIMENOrdering Facility: [facility] Address: [address] [id number] Result Comment: Estimated Gl omerular Filtration Rate (eGFR) is calculated using the 2020 CK D-EPI creatinine equation. This equation utilizes serum crea tinine, sex, and age as parameters. The creatinine assay has traceab le calibration to isotope dilution-mass spectrometry. Refer to KDIGO guidelines for clinical interpretation. In patients with unstable renal function, e.g. those with acute kidney inju ry, the eGFR may not accurately reflect actual GFR. Performed By: #### 96522-3 # ###[facility] LABORATORYCLIA [id number] [place] [address] [place] Glucose [Mass/Vol] 86 mg/dL Normal 74-99 [facility] Comment on above: Order Comment: Specimen Type : BLOOD SPECIMENOrdering Facility: [facility] Address: [address] Result Comment: The [place] Diabetes Association (ADA) provides guidance for cutoff values for fasting glucose and random glucose. The ADA defines fasting as no caloric intake for at least 8 hours. Fas ting plasma glucose results between 100 to 125 mg/dL indicate increased risk for diabetes (prediabetes). Fasting plasma glucose resul ts greater than or equal to 126 mg/dL meet the criteria for diagnosis of diabetes. In the absence of unequivocal hyperglycemia, results should be confirmed by repeat testing. In a patient with classic s ymptoms of hyperglycemia or hyperglycemic crisis, random plasma glucose results greater than or equal to 200 mg/dL meet the criteria for diagnosis of diabetes. Reference: Standards of [facility] in Diabetes 2016, [place] Diabetes Association. Diabetes Care. 2016.39(Suppl 1). Performed By: #### 29532-9 # ###[facility] LABORATORYCLIA [id number] [place] [address] [place] Potassium [Moles/Vol] 4.2 mmol/L Normal 3.7-5.1 [facility] Comment on above: Order Comment: Specimen Type : BLOOD SPECIMENOrdering Facility: [facility] Address: [address] [id number] Performed By: #### 43689-2 # ###[facility]ORATORYCLIA [id number] [facility] RANDALLIA [facility], [address] STATES OF [facility] Protein [Mass/Vol] 6.8 g/dL Normal 6.3-8.0 [facility] Comment on above: Order Comment: Specimen Type : BLOOD SPECIMENOrdering Facility: [facility] Address: [address] [place] [address] Performed By: #### 52008-3 # ###[facility]ORATORYCLIA [id number] [facility], [address] Sodium [Moles/Vol] 137 mmol/L Normal 136-144 [facility] Comment on above: Order Comment: Specimen Type : BLOOD SPECIMENOrdering Facility: [facility] Address: [address] [place] [address] Performed By: #### 78046-7 # ###[facility] LABORATORYCLIA [id number] [address] STATES OF [facility] Urea nitrogen [Mass/Vol] 16 mg/dL Normal 7-21 [facility] Comment on above: Order Comment: Specimen Type : BLOOD SPECIMENOrdering Facility: [facility] Address: [address] [place] [address] Performed By: #### 61525-4 # ###[facility]ORATORYCLIA [id number] [facility], [address] OF [facility] CNOV on 01-01-2022 CNOV Office Visit (SPAGWO) Normal [address] VIVIANA Beverly ([id number]) 1955 F Medical Date Time Provider Department Center 01/01/22 2:30 PM SIRENA ROYAL SPAGWO During your visit today, we recorded the following inf ormation about you: Pulse Respiration 86/minute 16/minute Lilian WilsonidyROSETTE 01/01/2022 2:42 PM Signed Review of Systems Constitutional: Negative for activity change, chills, fever and unexpected weight change. Gastrointestinal: Negative for bowel retention or incontinence Genitourinary: Negative for difficulty urinating. Negative for bladder retention or incontinence Musculoskeletal: Positive for arthralgia s, gait problem and myalgias. Negative for back pain, joint swelling, neck pain and neck stif fness. Neurological: Positive for numbness and headaches. Neg ative for weakness. Psychiatric/Behavioral: Negative for dysphoric mood, s leep disturbance and suicidal ideas. The patient is not nervous/anxious. Sirena Royal APRN.CITY PLANNING ENGINEER 01/01/2022 2:42 PM Signed [facility] Today's Date: 01/01/2022 Last Visit: 10/30/[address] Feng Name: Viviana Santana : 1955 Purpose: Established Patient Encounter Interval History: Since last encounter, Viviana Santana; reports that the chronic problem(s) of diffuse body pain are Better. Patient's last OV was initial consultation. She had also seen Dr. Begum in 06/2021 fo r pain management evaluation. Was advised by Jacey Begum not a candidate for injections, but advised lifestyle changes and follow up prn Last OV Dr. Feng started the patient on Pamelor 2 5mg at HS and referred to PT. Patient reports that made her tired, she called in and she was then started on Effexor. Reports this seems to be doing well for her. PCP manages her gabapentin, 600 mg in am, 400mg mid da y and 600 mg HS Pain Description: Timing: intermittent Character: Achy Primary Location: Diffuse body pain Radiation: Just generalized pain Exacerbating factors: unknown, prolong sitting Relieving factors: walking (limited to household dista nces by O2 capacity) Interferes with: physical activity, household cleaning and social activities The patient denies difficulty with bowel or bladder co ntrol, unintentional weight loss and fevers, chills, or night sweats. New Problems reported: None Recall: Patient of Dr. Feng. Current Status: INTAKE PAIN ASSESSMENT 12/26/2021 01/01/2022 Are you having pain associat ed with your visit today? No Yes, Provider notified Pain Scales - Verbal (Numeric Rating or Visual Analog Scale) Pain Level - 8 Pain Location - (No Data) Description - Tingling Duration Amount of Time - - Duration Units - Years Frequency - Continuous Intervention/Comfort measure - Medication;Exercise Comments - - Pain Assessment - - Current Pain Medications: Opioids: NSAIDS: Anti-depressants: Effexor 37.5mg daily Anti-convulsants: gabapentin 600 mg am and prn and 400 mg midday Muscle relaxants: Others: OTC Tylenol Analgesia: adequate Pain Medications Taken TO DATE (for the chief complain t(s)): Membrane Stabilizers: Neurontin (Gabapentin) and Cymba lta (Duloxetine) NSAIDS: Motrin (Ibuprofen) and Naprosyn (Naproxe n) - does not take NSAIDS due to being on Prednisone and her cardiac condition Opioids: Percocet (Oxycodone) Muscle Relaxants: none Topicals: none Other Prescription or OTC Pain Medications: Tylenol (A cetaminophen) Anti-depressants: None Non-Pain Meds of Note: Xarelto - for A fib Allergies: ALLERGIES Allergen Reactions Ragweed Other: See Comments Trees Other: See Comments Pamelor [Nortriptyl* Intolerance Dizziness Data Reviewed: Reviewed personally on today's date 01/01/2022 Relevant Imaging: MRI Spine Report No resulted procedures found. X-ray 04/2021 C-spine: Mild multilevel degenerative di sc changes with narrowing and endplate osteophytes. Mild to moderate facet and uncovertebral arthropathy. No erosions or syndesmophytes. No fracture or compression defect. Prevertebral soft tissues are unremarkable. L-spine: Anatomic variant: None. Straightening of norm al lumbar lordosis. Mild multilevel degenerative disc changes with narrowing and endplate osteophytes; moderate degenerative disc changes L5-S1 with endplate sclerosis and o steophytes. Facet arthropathy in the lower lumbar spine with up to mod erate foraminal encroachment at L5-S1. No pars or compression defect. No erosions or syndesmo phytes. SI Joints: No evidence of in flammatory no significant degenerative arthropathy. Bilateral Knees: Minimal osteoarthritis bilaterally. N o evidence of inflammatory arthropathy. Bilateral Feet: No evidence of inflammatory arthropath y. Hallux valgus and digital contractures bilaterally. Bilateral Hands: Degenerative changes bilateral hands predominantly in the wrists. No evidence of inflammatory arthropathy. Recent lab (more content not included)... CNOV on 12-26-2021 CNOV Office Visit (FAMJoseWS) Normal [place] [facility] VIVIANA SANTANA ([id number]) 1955 [facility] Date Time Provider Department 12/26/21 2:40 PM Alexa BECERRA During your visit today, we recorded the following inf ormation about you: Pulse Blood pressure Weight Height 89/minute 124/72 80.6 kg 1.6 m M Adelina Becerra PA-C 12/27/2021 12:50 PM Signed 66 year old female with c/o [facility]. No current concerns, feels she is doing well. Paroxysmal atrial fibrillation (hcc) (primary encounte r diagnosis) Current medications: Verapamil 80mg 0.5 tab every 8h Metoprolol succinate ER 100 mg daily Rivaroxaban 20 mg daily Cardiovascular interval hx: 09/08/21 f/u Dr. Piedra: improved AF/ ST on beta bl ocker, thught r/t beta`agonists with inhalers. Use of NTG: No Chest pain, arm, jaw pain, neck, or upper back p ain suggestive of angina: No. SOB: No Dyspnea with exertion: No orthopnea: No racing or irregular heartbeats: No palpitations: No syncopal sx: No Unexplainable fatigue No Leg swelling: No Nausea: No diaphoresis: No Heartburn: No Claudication: No Smoking: No Following Low cholesterol, high fiber diet? Yes If on statin: muscle aches? No If on statin: GI sx or diarrhea? No Additional history: no recent testing. Component Latest Ref Rng AND Units 09/09/2021 09/18/2021 10/23/2021 WBC 3.70 - 11.00 k/uL 9.48 10.36 10.54 RBC 3.90 - 5.20 m/uL 3.78 (L) 3.76 (L) 3.55 (L) Hemoglobin 11.5 - 15.5 g/dL 11.5 11.5 10.8 (L) Hematocrit 36.0 - 46.0 % 39.3 37.9 37.1 MCV 80.0 - 100.0 fL 104.0 (H) 100.8 (H) 104.5 (H) MCH 26.0 - 34.0 pg 30.4 30.6 30.4 MCHC 30.5 - 36.0 g/dL 29.3 (L) 30.3 (L) 29.1 (L) RDW-CV 11.5 - 15.0 % 13.4 13.4 13.4 Platelet Count 150 - 400 k/uL 368 334 360 MPV 9.0 - 12.7 fL 10.1 9.8 10.1 Neut% % 65.9 80.2 78.6 Abs Neut (ANC) 1.45 - 7.50 k/uL 6.25 8.31 (H) 8.29 (H) Lymph% % 22.3 11.5 14.4 Abs Lymph 1.00 - 4.00 k/uL 2.11 1.19 1.52 Washburn% % 5.9 4.2 3.8 Abs Washburn <0.87 k/uL 0.56 0.44 0.40 Eosin% % 4.3 2.9 1.8 Abs Eosin <0.46 k/uL 0.41 0.30 0.19 Baso% % 1.2 0.9 0.8 Abs Baso <0.11 k/uL 0.11 (H) 0.09 0.08 Immature Gran % % 0.4 0.3 0.6 IMMATURE GRANS (ABS) <0.10 k/uL 0.04 0.03 0.06 NRBC /100 WBC 0.0 0.0 0.0 Absolute nRBC <0.01 k/uL <0.01 <0.01 <0.01 DTYPE Auto Auto Auto Component Latest Ref Rng AND Units 09/09/2021 09/18/2021 10/23/2021 Protein, Total 6.3 - 8.0 g/dL 6.9 7.1 7.3 Albumin 3.9 - 4.9 g/dL 3.5 (L) 3.5 (L) 3.5 (L) Calcium 8.5 - 10.2 mg/dL 9.2 9.3 9.3 Bilirubin, Total 0.2 - 1.3 mg/dL 0.2 0.3 0.2 Alkaline Phosphatase 34 - 123 U/L 114 113 107 AST 13 - 35 U/L 14 16 14 ALT 7 - 38 U/L 6 (L) 6 (L) 7 Glucose 74 - 99 mg/dL 103 (H) 104 (H) 136 (H) BUN 7 - 21 mg/dL 12 12 12 Creatinine 0.58 - 0.96 mg/dL 0.74 0.79 0.70 Sodium 136 - 144 mmol/L 139 137 136 Potassium 3.7 - 5.1 mmol/L 4.1 4.3 4.1 Chloride 97 - 105 mmol/L 99 99 98 CO2 22 - 30 mmol/L 29 28 25 Anion Gap 9 - 18 mmol/L 11 10 13 eGFR >=60 mL/min/1.73m? 90 84 97 Component Latest Ref Rng AND Units 11/28/2018 0 Cholesterol, Total <200 mg/dL 182 145 Triglyceride <150 mg/dL 198 (H) 245 (H) HDL Cholesterol >39 mg/dL 77 67 LDL Cholesterol <100 mg/dL 65 29 Non HDL Cholesterol <130 mg/dL 105 78 Fasting Time hrs 6 14 VLDL Cholesterol <30 mg/dL 40 (H) 49 (H) TC:HDL Ratio <5.10 2.36 2.16 LDL:HDL Ratio <2.54 0.84 0.43 Last 3 Encounter BP Readings: Date: BP: 12/26/2021 124/72 12/23/2021 117/67 11/24/2021 95/61 Type 2 diabetes mellitus wit hout complication, without long-term current use of insulin (hcc) Current medications: none Taking medication as directed consistently? No meds, c urrently on prednisone Medical Issues / Complications: hyperlipidemia and car diovascular disease Checking blood sugars at home? No. Watching diet? Yes Physical Activity: Sedentary but improving Hypoglycemic spells? No Any visual disturbance? No Chest pain? No New numbness, tingling or loss of sensation? No Any recent foot problems, sores or rashes? No Any recent or sudden weight loss? No Change in urination? No. If yes: Any recent illness? No Last eye exam: up to date. Last foot exam: due. 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 BD DXA - AXIAL SKELETON on 12-10-2021 BD DXA - AXIAL * * *Final Report* * * Normal Ak[facility] on General SKELETON DATE OF EXAM: Dec 10 2021 3:22PM [facility] AWX 0804 - BD DXA - AXIAL SKELETON / 3084 PROCEDURE REASON: multiple diagnoses * * * * Physician Interpretation * * * * BD DXA - AXIAL SKELETON HISTORY: longterm current use of systemic steroids Os teoporosis, unspecified osteoporosis type, unspecified pathologica l fracture presence Rheumatoid arthritis involving multiple sites with pos itive rheumatoid factor (HCC) [employer] Energy X-Ray Absorptiometry was performed on a [employer] DPX-IQ Unit. COMPARISON: Spine: None. Femur: None. BONE DENSITY MEASUREMENTS: Lumbar Spine: The average bone mineral density of L1 through L4 is 1 .032 gm/cm2. This corresponds to young adult T score of -1.2 and ag e-matched Z score of -0.1 Percent change from baseline: N/A% Femur: The average bone mineral density of the left femoral n dale is 0.607 gm/cm2. This corresponds to young adult T score of -3.1 and ag e-matched Z score of -2.0. Percent change from baseline: N/A% IMPRESSION: Findings consistent with osteoporosis. 10-YEAR PROBABILITY OF FRACTURE: Major osteoporotic fracture risk is 32.7%. Hip fracture risk is 12.3% WHO CRITERIA FOR OSTEOPOROSIS: Normal = BMD (Bone Mineral Density) T score greater th an -1.0 Osteopenia = BMD T score less than or equal to -1.0 bu t greater than -2.5 Osteoporosis = BMD T score less than or equal to -2.5 at any site (lumbar spine, femoral neck, greater trochanter, or total hip) Passenger Brakeman: PSCB Transcribe Date/Time: Dec 11 2021 9:09A Dictated by : CHRIS JOHNSON MD This examination was interpreted and the report review ed and electronically signed by: CHRIS JOHNSON MD on Dec 11 2021 9:10AM EST [id number] CNPN on 11-27-2021 CNPN Telephone (RGMOB) [facility] VIVIANA Simpson ([id number]) 1955 [facility] Time Provider Department 11/27/21 RICK FENG During your visit today, we recorded the following inf ormation about you: Ismael Apple 11/27/2021 12:33 PM Signed Patient does not want to take nortriptytline 25 mg, requesting new medication due to this one making her dizzy. Please advise, call back to [phone]. Thank you. Rick Feng MD 11/27/2021 12:40 PM Signed I called Viviana Santana and confirmed she had dizziness on the Pamelor. It was helping, however. We will discontinue and start Effexo r XR 37.5mg daily. She sees me in one month for fol low-up and has been instructed to keep taking until then if having no side effects, otherwise discontinue immediately. Rick Feng III, MD, CHAPO Allergies As of Date: 11/27/2021 Noted Allergy Reactio n RAGWEED 03/10/2011 14 - Other: See Comments TREES 03/10/2011 14 - Other: See Comments PAMELOR (NORTRIPTYLINE) 11/27/2021 5 - Intolerance Comments: Dizziness Date Reviewed: 11/27/2021 Reviewed by: Rick Feng MD - Fully Assessed Reason for Visit: Medication Problem [65] Primary Visit Diagnosis:Myofascial pain [M79.18] Order(s):venlafaxine ER (EFFEXOR XR) 37.5 mg 24 hr cap suleTake 1 capsule by mouth once daily.Disp: 30 capsuleRfl: 5 Prescriptions as of 11/27/2021 - venlafaxine ER (EFFEXOR XR) 37.5 mg 24 hr capsule Take 1 capsule by mouth once daily. - verapamil (CALAN, ISOPTIN) 80 mg tablet Take 0.5 tablets by mouth every 8 hours. - predniSONE (DELTASONE) 5 mg tablet Take 2 tablets by mouth once daily. - gabapentin (NEURONTIN) 400 mg capsule Take 1 capsule by mouth three times daily for 180 days . - leflunomide (ARAVA) 20 mg tablet Take 1 tablet by mouth once daily. - gabapentin (NEURONTIN) 100 mg capsule Take 2 capsules by mouth twice daily for 180 days. - metoprolol succinate ER (TOPROL XL) 100 mg Take 1 tablet by mouth once daily. - rivaroxaban (XARELTO) 20 mg tablet Take 1 tablet by mouth daily with dinner. - ipratropium-albuterol (DUONEB) 0.5 mg-3 mg(2.5 mg ba se)/3 mL nebu Inhale 3 mL as instructed four times daily. - guaiFENesin (MUCINEX) 600 mg 12 hr tablet Take 1 tablet by mouth twice daily. - ergocalciferol 50,000 unit capsule (VITAMIN D2, DRIS DOL) Take 1 capsule by mouth one time a week. - ondansetron (ZOFRAN) 4 mg tablet Take 1 tablet by mouth every 6 hours as needed for bernabe sea/vomiting. - ferrous gluconate 324 mg (37.5 mg iron) tablet Take 1 tablet by mouth twice daily with meals. - Miscellaneous Medical Supply Portable oxygen concentrator 3l/min at all times. - omeprazole (PRILOSEC) 40 mg capsule Take 1 capsule by mouth as needed. - COMPOUNDED PRESCRIPTION Provide nebulizer accessory kit. DME: [employer]. - COMPOUNDED PRESCRIPTION Accessories for nebulizer J43.1 Panlobular emphysema ( HCC) (primary encounter diagnosis) J84.9 ILD (interstitial lung dise ase) (HCC) - COMPOUNDED PRESCRIPTION #1 Continuous Flow Stationary O2 Concentrator Sig: O2 2l/min liter flow Patient is to keep portablel concentrator as well J43. 2 Centrilobular emphysema (HCC) J84.9 ILD (interstitial lung disease) (HCC) J96.11 Chronic respiratory failure with hypoxia (HCC) - COMPOUNDED PRESCRIPTION Face mask: hypoxia - COMPOUNDED PRESCRIPTION Portable oxygen concentrator, setting 2 at rest, setti ng 3 with ambulation. - COMPOUNDED PRESCRIPTION Evaluate patient for portable pulse dose O2 concentrat or. - COMPOUNDED PRESCRIPTION Portable oxygen concentrator. - acetaminophen (TYLENOL EXTRA STRENGTH) 500 mg tablet Take 1,000 mg by mouth every 6 hours as needed. 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] 05/19/2017 05/19/2017 Iatrogenic adrenal insufficiency (HCC) [E27.49] 2017 Chronic respiratory failure with hypoxia (HCC) *2017 Rheumatoid arthritis involving multiple sites w*2017 longterm current use of immunosuppressive drug*2017 Paroxysmal atrial fibrillation (HCC) [I48.0] 8 Hyperthyroidism [E05.90] 05/10/2017 09/24/2021 Normocytic anemia [D64.9] 05/28/2017 Pre-diabetes [R73.03] 06/28/2017 Current chronic use of systemic steroids [Z79.5*2017 Type 2 diabetes mellitus without complication, *2017 Combined 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-related cataract of both *201701/06/2018 Regular astigmatism, bilateral [H52.223] 11/22/2017 Combined 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-related cataract of right*201701/06/2018 Combined 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-related cataract of left *201701/05/2018 Combined 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-relate d cataract, right e* (more content not included)... CNOV on 10-30-2021 CNOV Office Visit (SPAGWO) Normal [address] [facility] VIVIANA SANTANA ([id number]) 1955 F Medical Date Time Provider Department Center 10/30/21 10:00 AM RICK FENGWTania During your visit today, we recorded the following inf ormation about you: Pulse Respiration 25(OH)D3 [facility] on 10-23-2021 25-hydroxyvitamin D3 [Mass/Vol] 48.0 ng/mL Normal 31.0-80.0 [facility] Comment on above: Order Comment: Specimen Type : BLOOD SPECIMENOrdering Facility: [facility] Address: [address] [id number] Result Comment: Classificati on of 25 [place] Vitamin D status: Deficiency/Insufficiency: < or = 30 ng/ml. Sufficiency/Optimal Levels: 31-80 ng/mL Toxicity: > 100 ng/mL. Test performed by chemilumin escent immunoassay. Performed By: #### 1989-3 ## ##[facility] LABCLIA [id number] [facility] DESK [id number] [place] [address] [place] CBC W Auto Differential panel (Bld) on 10-23-2021 Basophils (Bld) [#/Vol] 0.08 10*3/uL Normal <0.11 [facility] Comment on above: Order Comment: Specimen Type : BLOOD SPECIMENOrdering Facility: [facility] Address: [address] [place] [address] Performed By: #### 93772-7 # ###[facility] LABCLIA [id number] [place] [address] [place] Basophils/100 WBC (Bld) 0.8 % Normal [facility] Comment on above: Order Comment: Specimen Type : BLOOD SPECIMENOrdering Facility: [facility] Address: [address] [place], [place] [id number] Performed By: #### [id number] # ###[facility] LABCLIA [id number] [place] [address] [place] Differential cell count method Nom (Bld) Auto Normal [facility] Comment on above: Order Comment: Specimen Type : BLOOD SPECIMENOrdering Facility: [facility] Address: [address] [place], [place] [id number] Performed By: #### [id number] # ###[facility] LABCLIA [id number] [place] [address] [place] Eosinophils (Bld) [#/Vol] 0.19 10*3/uL Normal <0.46 [facility] Comment on above: Order Comment: Specimen Type : BLOOD SPECIMENOrdering Facility: [facility] Address: [address] [place], [place] [id number] Performed By: #### 12925-1 # ###[facility] LABCLIA [id number] [place] [address] [place] Eosinophils/100 WBC (Bld) 1.8 % Normal [facility] Comment on above: Order Comment: Specimen Type : BLOOD SPECIMENOrdering Facility: [facility] Address: [address] [place], [place] [id number] Performed By: #### 03343-0 # ###[facility] LABIA [id number] [place] [address] [place] Erythrocyte distribution width 13.4 % Normal 11.5-15.0 [facility] (RBC) [Ratio] Comment on above: Order Comment: Specimen Type : BLOOD SPECIMENOrdering Facility: [facility] Address: [address] [place], [place] [id number] Performed By: #### 69520-5 # ###[facility] [id number] [place] [address] [place] Hematocrit (Bld) [Volume fraction] 37.1 % Normal 36.0-4 6.0 [facility] Comment on above: Order Comment: Specimen Type : BLOOD SPECIMENOrdering Facility: [facility] Address: [address] [place], [place] [id number] Performed By: #### 40827-7 # ###[facility] [id number] [place] [address] [place] Hemoglobin (Bld) [Mass/Vol] 10.8 g/dL Low 11.5-15.5 [facility] Comment on above: Order Comment: Specimen Type : BLOOD SPECIMENOrdering Facility: [facility] Address: [address] [place], [place] [id number] Performed By: #### 89197-4 # ###[facility] LABIA [id number] [place] [address] [place] IMMATURE GRAN % 0.6 % Normal [facility] Comment on above: Order Comment: Specimen Type : BLOOD SPECIMENOrdering Facility: [facility] Address: [address] [place] [address] Performed By: #### 94055-7 # ###[facility] LABIA [id number] [place] [address] [place] IMMATURE GRAN ABS 0.06 k/uL Normal <0.10 [facility] Comment on above: Order Comment: Specimen Type : BLOOD SPECIMENOrdering Facility: [facility] Address: [address] [place], [place] [address] Performed By: #### 91507-9 # ###[facility] LABCLIA [id number] [place] [address] [place] Lymphocytes (Bld) [#/Vol] 1.52 10*3/uL Normal 1.00-4.00 [facility] Comment on above: Order Comment: Specimen Type : BLOOD SPECIMENOrdering Facility: [facility] Address: [address] [place], [place] [address] Performed By: #### 60007-9 # ###[facility] LABIA [id number] [place] [address] [place] Lymphocytes/100 WBC (Bld) 14.4 % Normal [facility] Comment on above: Order Comment: Specimen Type : BLOOD SPECIMENOrdering Facility: [facility] Address: [address] [place], [place] [address] Performed By: #### 69053-3 # ###[facility] LABCLIA [id number] [place] [address] [place] MCH (RBC) [Entitic mass] 30.4 pg Normal 26.0-34.0 [facility] Comment on above: Order Comment: Specimen Type : BLOOD SPECIMENOrdering Facility: [facility] Address: [address] [place], [place] [address] Performed By: #### 08886-7 # ###[facility] LABIA [id number] [place] [address] [place] MCHC (RBC) [Mass/Vol] 29.1 g/dL Low 30.5-36.0 [facility] Comment on above: Order Comment: Specimen Type : BLOOD SPECIMENOrdering Facility: [facility] Address: [address] [place], [place] [address] Performed By: #### 31950-6 # ###[facility] LABIA [id number] [place] [address] [place] MCV (RBC) [Entitic vol] 104.5 fL High 80.0-100.0 [facility] Comment on above: Order Comment: Specimen Type : BLOOD SPECIMENOrdering Facility: [facility] Address: [address] [place], [place] [address] Performed By: #### 92593-5 # ###[facility] LABIA [id number] [place] [address] [place] Monocytes (Bld) [#/Vol] 0.40 10*3/uL Normal <0.87 [facility] Comment on above: Order Comment: Specimen Type : BLOOD SPECIMENOrdering Facility: [facility] Address: [address] [place], [place] [address] Performed By: #### 54199-1 # ###[facility] LABIA [id number] [place] [address] [place] Monocytes/100 WBC (Bld) 3.8 % Normal [facility] Comment on above: Order Comment: Specimen Type : BLOOD SPECIMENOrdering Facility: [facility] Address: [address] [place], [place] [address] Performed By: #### 63077-6 # ###[facility] LABIA [id number] [place] [address] [place] Neutrophils (Bld) [#/Vol] 8.29 10*3/uL High 1.45-7.50 [facility] Comment on above: Order Comment: Specimen Type : BLOOD SPECIMENOrdering Facility: [facility] Address: [address] [place] [address] Performed By: #### 01540-3 # ###[facility] LABIA [id number] [place] [address] [place] Neutrophils/100 WBC (Bld) 78.6 % Normal [facility] Comment on above: Order Comment: Specimen Type : BLOOD SPECIMENOrdering Facility: [facility] Address: [address] [place], [place] [address] Performed By: #### 45549-9 # ###[facility] LABCLIA [id number] [place] [address] [place] Nucleated RBC (Bld) [#/Vol] 10*3/uL Normal <0.01 [facility] Comment on above: Order Comment: Specimen Type : BLOOD SPECIMENOrdering Facility: [facility] Address: [address] [place], [place] [address] Performed By: #### 61640-7 # ###[facility] LABIA [id number] [place] [address] [place] Nucleated RBC/100 WBC (Bld) [Ratio] 0.0 /100 WBC Normal [facility] Comment on above: Order Comment: Specimen Type : BLOOD SPECIMENOrdering Facility: [facility] Address: [address] [place], [place] [address] Performed By: #### 09459-7 # ###[facility] LABIA [id number] [place] [address] [place] Platelet mean volume (Bld) 10.1 fL Normal 9.0-12.7 C [facility] [Entitic vol] Comment on above: Order Comment: Specimen Type : BLOOD SPECIMENOrdering Facility: [facility] Address: [address] [place], [place] [address] Performed By: #### 66315-8 # ###[facility] LABIA [id number] [place] [address] [place] Platelets (Bld) [#/Vol] 360 10*3/uL Normal 150-400 [facility] Comment on above: Order Comment: Specimen Type : BLOOD SPECIMENOrdering Facility: [facility] Address: [address] [place] [address] Performed By: #### 80224-9 # ###[facility] [id number] [address] [place] RBC (Bld) [#/Vol] 3.55 10*6/uL Low 3.90-5.20 [facility] Comment on above: Order Comment: Specimen Type : BLOOD SPECIMENOrdering Facility: [facility] Address: [address] [place] [address] Performed By: #### 61883-9 # ###[facility] [id number] [address] [place] WBC (Bld) [#/Vol] 10.54 10*3/uL Normal 3.70-11.00 [facility] Comment on above: Order Comment: Specimen Type : BLOOD SPECIMENOrdering Facility: [facility] Address: [address] [place] [address] Performed By: #### 66009-9 # ###[facility] [id number] [address] CNPN on 10-23-2021 CNPN Telephone ([facility]) Normal [place] VIVIANA Beverly ([id number]) 1955 F Medical Date Time Provider Department Center 10/23/21 ASIA CALDERÓN During your visit today, we recorded the following inf ormation about you: Dixie Tay Tapper Balance Wheel [employer] Ppg 10/23/2021 10:28 AM [facility] REQ [id number] 11.10.2021 - 12 Dixie Tay [place] [facility] Allergies As of Date: 10/23/2021 Noted Allergy Reactio n RAGWEED 03/10/2011 14 - Other: See Comments TREES 03/10/2011 14 - Other: See Comments Date Reviewed: 09/23/2021 Reviewed by: Leslie Walker Ma - Fully Assessed Reason for Visit: APPROVED-NO RICADRO CHOI [Other] Cmt: Orencia APPROVED NO RICARDO CHOI [id number] 11.10.2021 - 11.10.2022 12 Prescriptions as of 10/23/2021 - predniSONE (DELTASONE) 5 mg tablet Take 2 tablets by mouth once daily. - gabapentin (NEURONTIN) 400 mg capsule Take 1 capsule by mouth three times daily for 180 days . - leflunomide (ARAVA) 20 mg tablet Take 1 tablet by mouth once daily. - gabapentin (NEURONTIN) 100 mg capsule Take 2 capsules by mouth twice daily for 180 days. - metoprolol succinate ER (TOPROL XL) 100 mg Take 1 tablet by mouth once daily. - rivaroxaban (XARELTO) 20 mg tablet Take 1 tablet by mouth daily with dinner. - ipratropium-albuterol (DUONEB) 0.5 mg-3 mg(2.5 mg ba se)/3 mL nebu Inhale 3 mL as instructed four times daily. - guaiFENesin (MUCINEX) 600 mg 12 hr tablet Take 1 tablet by mouth twice daily. - ergocalciferol 50,000 unit capsule (VITAMIN D2, DRIS DOL) Take 1 capsule by mouth one time a week. - ondansetron (ZOFRAN) 4 mg tablet Take 1 tablet by mouth every 6 hours as needed for bernabe sea/vomiting. - ferrous gluconate 324 mg (37.5 mg iron) tablet Take 1 tablet by mouth twice daily with meals. - Miscellaneous Medical Supply Portable oxygen concentrator 3l/min at all times. - omeprazole (PRILOSEC) 40 mg capsule Take 1 capsule by mouth as needed. - verapamil (CALAN, ISOPTIN) 80 mg tablet Take 0.5 tablets by mouth every 8 hours. - COMPOUNDED PRESCRIPTION Provide nebulizer accessory kit. DME: [facility]it. - COMPOUNDED PRESCRIPTION Accessories for nebulizer J43.1 Panlobular emphysema ( HCC) (primary encounter diagnosis) J84.9 ILD (interstitial lung dise ase) (HCC) - COMPOUNDED PRESCRIPTION #1 Continuous Flow Stationary O2 Concentrator Sig: O2 2l/min liter flow Patient is to keep portablel concentrator as well J43. 2 Centrilobular emphysema (HCC) J84.9 ILD (interstitial lung disease) (HCC) J96.11 Chronic respiratory failure with hypoxia (HCC) - COMPOUNDED PRESCRIPTION Face mask: hypoxia - COMPOUNDED PRESCRIPTION Portable oxygen concentrator, setting 2 at rest, setti ng 3 with ambulation. - COMPOUNDED PRESCRIPTION Evaluate patient for portable pulse dose O2 concentrat or. - COMPOUNDED PRESCRIPTION Portable oxygen concentrator. - acetaminophen (TYLENOL EXTRA STRENGTH) 500 mg tablet Take 1,000 mg by mouth every 6 hours as needed. 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*2017 Paroxysmal atrial fibrillation (HCC) [I48.0] 8 Hyperthyroidism [E05.90] 05/10/2017 09/24/2021 Normocytic anemia [D64.9] 05/28/2017 Pre-diabetes [R73.03] 06/28/2017 Current chronic use of systemic steroids [Z79.5*2017 Type 2 diabetes mellitus without complication, *2017 Combined 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-related cataract of both *201701/06/2018 Regular astigmatism, bilateral [H52.223] 11/22/2017 Combined 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-related cataract of right*201701/06/2018 Combined 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-related cataract of left *201701/05/2018 Combined 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-related cataract, right e*201712/15/2017 Status post cataract extraction and insertion o*201707/28/2018 Combined form of age-related cataract, left eye*201701/06/2018 Status post cataract extraction and insertion o*201707/28/2018 Vitreous floaters of both eyes [H43.393] 07/28/2018 Pseudophakia of both eyes [Z96.1] 07/28/2018 CESAR (obstructive sleep apnea) [G47.33] 01/23/2019 Pneumonia of right upper lobe due to methicilli*201810/06/2019 Acute bilateral mastoiditis [H70.003] 05/12/201902/28 Cholesteatoma, bilateral [H71.93] 05/12/2019 Obesity, Class I, BMI 30-34.9 [E66.9] 05/26/2019 Encounter for support and coordination of trans*2019 Chronic neutr (more content not included)... Comprehensive metabolic 2000 panel on 0 10-23-2021 Albumin [Mass/Vol] 3.5 g/dL Low 3.9-4.9 [facility] Comment on above: Order Comment: Specimen Type : BLOOD SPECIMENOrdering Facility: [facility] Address: [address] [place] [address] Performed By: #### 01342-7 # ###[facility] LABCLIA [id number] [place] [address] [place] ALP [Catalytic activity/Vol] 107 U/L Normal 34-123 [facility] Comment on above: Order Comment: Specimen Type : BLOOD SPECIMENOrdering Facility: [facility] Address: [address] [place] [address] Performed By: #### 79378-8 # ###[facility] LABCLIA [id number] [place] [address] [place] ALT [Catalytic activity/Vol] 7 U/L Normal 7-38 [facility] Comment on above: Order Comment: Specimen Type : BLOOD SPECIMENOrdering Facility: [facility] Address: [address] Performed By: #### 59198-6 # ###[facility] LABCLIA [id number] [place] [address] [place] Anion gap [Moles/Vol] 13 mmol/L Normal 9-18 [facility] Comment on above: Order Comment: Specimen Type : BLOOD SPECIMENOrdering Facility: [facility] Address: [address] [place], [place] [address] Performed By: #### 39834-1 # ###[facility] LABCLIA [id number] [place] [address] [place] AST [Catalytic activity/Vol] 14 U/L Normal 13-35 [facility] Comment on above: Order Comment: Specimen Type : BLOOD SPECIMENOrdering Facility: [facility] Address: [address] [place], [place] [address] Performed By: #### 92711-8 # ###[facility] LABCLIA [id number] [place] [address] [place] Bilirubin [Mass/Vol] 0.2 mg/dL Normal 0.2-1.3 [facility] Comment on above: Order Comment: Specimen Type : BLOOD SPECIMENOrdering Facility: [facility] Address: [address] Performed By: #### 30800-7 # ###[facility] LABCLIA [id number] [place] [address] [place] Calcium [Mass/Vol] 9.3 mg/dL Normal 8.5-10.2 [facility] Comment on above: Order Comment: Specimen Type : BLOOD SPECIMENOrdering Facility: [facility] Address: [address] [place], [place] [address] Performed By: #### 13160-1 # ###[facility] LABCLIA [id number] [place] [address] [place] Chloride [Moles/Vol] 98 mmol/L Normal 97-105 [facility] Comment on above: Order Comment: Specimen Type : BLOOD SPECIMENOrdering Facility: [facility] Address: [address] [place] [address] Performed By: #### 75595-6 # ###[facility] LABCLIA [id number] [place] [address] [place] CO2 [Moles/Vol] 25 mmol/L Normal 22-30 [facility] Comment on above: Order Comment: Specimen Type : BLOOD SPECIMENOrdering Facility: [facility] Address: [address] [place] [address] Performed By: #### 82385-8 # ###[facility] LABIA [id number] [place] [address] [place] Creatinine [Mass/Vol] 0.70 mg/dL Normal 0.58-0.96 [facility] Comment on above: Order Comment: Specimen Type : BLOOD SPECIMENOrdering Facility: [facility] Address: [address] [place] [address] Performed By: #### 99241-5 # ###[facility] LABIA [id number] [address] [place] ESTIMATED GLOMERULAR 97 mL/min/1.73m??? Normal >=60 C [facility] FILTRATION RATE Comment on above: Order Comment: Specimen Type : BLOOD SPECIMENOrdering Facility: [facility] Address: [address] [place] [address] Result Comment: Estimated Gl omerular Filtration Rate (eGFR) is calculated using the 2020 CK D-EPI creatinine equation. This equation utilizes serum crea tinine, sex, and age as parameters. The creatinine assay has traceab le calibration to isotope dilution-mass spectrometry. Refer to KDIGO guidelines for clinical interpretation. In patients with unstable renal function, e.g. those with acute kidney inju ry, the eGFR may not accurately reflect actual GFR. Performed By: #### 81127-9 # ###[facility] LABCLIA [id number] [place] [address] [place] Glucose [Mass/Vol] 136 mg/dL High 74-99 [facility] Comment on above: Order Comment: Specimen Type : BLOOD SPECIMENOrdering Facility: [facility] Address: [address] [place] [address] Result Comment: The [place] Diabetes [employer] (ADA) provides guidance for cutoff values for fasting glucose and random glucose. The ADA defines fasting as no caloric intake for at least 8 hours. Fas ting plasma glucose results between 100 to 125 mg/dL indicate increased risk for diabetes (prediabetes). Fasting plasma glucose resul ts greater than or equal to 126 mg/dL meet the criteria for diagnosis of diabetes. In the absence of unequivocal hyperglycemia, results should be confirmed by repeat testing. In a patient with classic s ymptoms of hyperglycemia or hyperglycemic crisis, random plasma glucose results greater than or equal to 200 mg/dL meet the criteria for diagnosis of diabetes. Reference: Standards of [facility] in Diabetes 2016, [place] [employer] Association. Diabetes Care. 2016.39(Suppl 1). Performed By: #### 81216-6 # ###[facility] LABIA [id number] [place] [address] [place] Potassium [Moles/Vol] 4.1 mmol/L Normal 3.7-5.1 [facility] Comment on above: Order Comment: Specimen Type : BLOOD SPECIMENOrdering Facility: [facility] Address: [address] [id number] Performed By: #### 87943-6 # ###[facility] LABIA [id number] [place] [address] [place] Protein [Mass/Vol] 7.3 g/dL Normal 6.3-8.0 [facility] Comment on above: Order Comment: Specimen Type : BLOOD SPECIMENOrdering Facility: [facility] Address: [address] Performed By: #### 46524-1 # ###[facility] LABIA [id number] [place] [address] [place] Sodium [Moles/Vol] 136 mmol/L Normal 136-144 [facility] Comment on above: Order Comment: Specimen Type : BLOOD SPECIMENOrdering Facility: [facility] Address: [address] [place] [address] Performed By: #### 02281-6 # ###[facility] LABIA [id number] [place] [address] [place] Urea nitrogen [Mass/Vol] 12 mg/dL Normal 7-21 [facility] Comment on above: Order Comment: Specimen Type : BLOOD SPECIMENOrdering Facility: [facility] Address: [address] [place] [address] Performed By: #### 84506-0 # ###[facility] LABIA [id number] [address] [place] CNPN on 10-10-2021 CNPN Telephone (FAMPWS) [facility] VIVIANA SANTANA ([id number]) 1955 [facility] Date Time Provider Department 10/10/21 [facility] visit today, we recorded the following inf ormation about you: Lindsey Queen RN 10/10/2021 12:50 PM Signed Patient calls and states that her handicap placard is set to . Patient asking if provider can write a letter for handicap reyna card. If agreeable please send to patient via mail. Home address verified . SHALOM Ram PA-C 10/10/2021 2:03 PM Signed Printed Thanks, ANDREA Almanza Ma 10/10/2021 4:06 PM Signed Letter placed in the mail Allergies As of Date: 10/10/2021 Noted Allergy Reactio n RAGWEED 03/10/2011 14 - Other: See Comments TREES 03/10/2011 14 - Other: See Comments Date Reviewed: 09/23/2021 Reviewed by: Leslie Walker Ma - Fully Assessed Reason for Visit: Handicap Placard [Other] Prescriptions as of 10/10/2021 - gabapentin (NEURONTIN) 400 mg capsule Take 1 capsule by mouth three times daily for 180 days . - leflunomide (ARAVA) 20 mg tablet Take 1 tablet by mouth once daily. - predniSONE (DELTASONE) 5 mg tablet Take 1 tablet by mouth once daily. - gabapentin (NEURONTIN) 100 mg capsule Take 2 capsules by mouth twice daily for 180 days. - metoprolol succinate ER (TOPROL XL) 100 mg Take 1 tablet by mouth once daily. - rivaroxaban (XARELTO) 20 mg tablet Take 1 tablet by mouth daily with dinner. - ipratropium-albuterol (DUONEB) 0.5 mg-3 mg(2.5 mg ba se)/3 mL nebu Inhale 3 mL as instructed four times daily. - guaiFENesin (MUCINEX) 600 mg 12 hr tablet Take 1 tablet by mouth twice daily. - ergocalciferol 50,000 unit capsule (VITAMIN D2, DRIS DOL) Take 1 capsule by mouth one time a week. - ondansetron (ZOFRAN) 4 mg tablet Take 1 tablet by mouth every 6 hours as needed for bernabe sea/vomiting. - ferrous gluconate 324 mg (37.5 mg iron) tablet Take 1 tablet by mouth twice daily with meals. - Miscellaneous Medical Supply Portable oxygen concentrator 3l/min at all times. - omeprazole (PRILOSEC) 40 mg capsule Take 1 capsule by mouth as needed. - verapamil (CALAN, ISOPTIN) 80 mg tablet Take 0.5 tablets by mouth every 8 hours. - COMPOUNDED PRESCRIPTION Provide nebulizer accessory kit. DME: [facility]it. - COMPOUNDED PRESCRIPTION Accessories for nebulizer J43.1 Panlobular emphysema ( HCC) (primary encounter diagnosis) J84.9 ILD (interstitial lung dise ase) (HCC) - COMPOUNDED PRESCRIPTION #1 Continuous Flow Stationary O2 Concentrator Sig: O2 2l/min liter flow Patient is to keep portablel concentrator as well J43. 2 Centrilobular emphysema (HCC) J84.9 ILD (interstitial lung disease) (HCC) J96.11 Chronic respiratory failure with hypoxia (HCC) - COMPOUNDED PRESCRIPTION Face mask: hypoxia - COMPOUNDED PRESCRIPTION Portable oxygen concentrator, setting 2 at rest, setti ng 3 with ambulation. - COMPOUNDED PRESCRIPTION Evaluate patient for portable pulse dose O2 concentrat or. - COMPOUNDED PRESCRIPTION Portable oxygen concentrator. - acetaminophen (TYLENOL EXTRA STRENGTH) 500 mg tablet Take 1,000 mg by mouth every 6 hours as needed. 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] 05/19/2017 05/19/2017 Iatrogenic adrenal insufficiency (HCC) [E27.49] 2017 Chronic respiratory failure with hypoxia (HCC) *2017 Rheumatoid arthritis involving multiple sites w*2017 longterm current use of immunosuppressive drug*2017 Paroxysmal atrial fibrillation (HCC) [I48.0] 8 Hyperthyroidism [E05.90] 05/10/2017 09/24/2021 Normocytic anemia [D64.9] 05/28/2017 Pre-diabetes [R73.03] 06/28/2017 Current chronic use of systemic steroids [Z79.5*2017 Type 2 diabetes mellitus without complication, *2017 Combined 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-related cataract of both *201701/06/2018 Regular astigmatism, bilateral [H52.223] 11/22/2017 Combined 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-related cataract of right*201701/06/2018 Combined 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-related cataract of left *201701/05/2018 Combined 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-related cataract, right e*201712/15/2017 Status post cataract extraction and insertion o*201707/28/2018 Combined form of age-related cataract, left eye*201701/06/2018 Status post cataract extraction and insertion o*201707/28/2018 Vitreous floaters of both eyes [H43.393] 07/28/2018 Pseudophakia of both eyes [Z96.1] 07/28/2018 CESAR (obstructive sleep apnea) [G47.33] 01/23/2019 Pneumonia of right upper lobe due to methicilli*201810/06/2019 Acute bilateral mastoidi (more content not included).. . CNOV on 09-23-2021 CNOV Office Visit (FAMPWS) [facility] VIVIANA SANTANA ([id number]) 1955 [facility] Date Time Provider Department 09/23/21 2:40 PM [facility] During your visit today, we recorded the following inf ormation about you: Pulse Blood pressure Weight 85/minute 120/70 80.3 kg Alexa Becerra PA-C 09/24/2021 10:58 AM Signed 66 year old female with c/o here for follow up Paroxysmal atrial fibrillation Chronic respiratory failure with hypoxia No chest pain, SOB, dyspnea, orthopnea, racing or irre gular heartbeats, palpitations, syncopal sx, leg swelling, nausea, diaph oresis or heartburn. Breathing is stable on O2 No use of rescue nebs since last visit Rheumatoid arthritis involving multiple sites wi th positive rheumatoid factor (hcc) 09/18/2021aw Dr. Asia Calderón rheum Was able to manage a prednisone 2 mg but 1mg did not h elp. Currently on prednisone 5mg daily x 40 Increased Leflunomide to 20mg daily Able to walk- much better Elevated ferritin Component Latest Ref Rng AND Units 05/12/2021 09/09/2021 09/18/2021 WBC 3.70 - 11.00 k/uL 15.43 (H) 9.48 10.36 RBC 3.90 - 5.20 m/uL 3.79 (L) 3.78 (L) 3.76 (L) Hemoglobin 11.5 - 15.5 g/dL 11.4 (L) 11.5 11.5 Hematocrit 36.0 - 46.0 % 39.7 39.3 37.9 MCV 80.0 - 100.0 fL 104.7 (H) 104.0 (H) 100.8 (H) MCH 26.0 - 34.0 pg 30.1 30.4 30.6 MCHC 30.5 - 36.0 g/dL 28.7 (L) 29.3 (L) 30.3 (L) RDW-CV 11.5 - 15.0 % 13.7 13.4 13.4 Platelet Count 150 - 400 k/uL 381 368 334 MPV 9.0 - 12.7 fL 10.2 10.1 9.8 Neut% % 83.4 65.9 80.2 Abs Neut (ANC) 1.45 - 7.50 k/uL 12.87 (H) 6.25 8.31 (H ) Lymph% % 9.4 22.3 11.5 Abs Lymph 1.00 - 4.00 k/uL 1.45 2.11 1.19 Washburn% % 3.8 5.9 4.2 Abs Washburn <0.87 k/uL 0.58 0.56 0.44 Eosin% % 2.0 4.3 2.9 Abs Eosin <0.46 k/uL 0.31 0.41 0.30 Baso% % 0.6 1.2 0.9 Abs Baso <0.11 k/uL 0.10 0.11 (H) 0.09 Immature Gran % % 0.8 0.4 0.3 IMMATURE GRANS (ABS) <0.10 k/uL 0.12 (H) 0.04 0.03 NRBC /100 WBC 0.0 0.0 0.0 Absolute nRBC <0.01 k/uL <0.01 <0.01 <0.01 DTYPE Auto Auto Auto Iron 41 - 186 ug/dL 31 (L) TIBC 232 - 386 ug/dL 190 (L) Transferrin Saturation 15 - 57 % 16 Ferritin 14.7 - 205.1 ng/mL 521.0 (H) 489.6 (H) Iatrogenic adrenal insufficiency (hcc) Component Latest Ref Rng AND Units 09/19/2020 09/09/2021 Cortisol 4.8 - 19.5 ug/dL 3.9 (L) 6.1 Lung nodule, multiple 09/05/2020 CT abdomen pelvis with and without contrast: Moderate to severe fibrotic changes noted lung bases with bronchiec tasis changes in right middle lobe, likely early infiltrate right lower lobe, slight ly larger bilateral pleural effusions and bibasilar atelectasis. 06/27/2020 chest x-ray with findings suggestive of inte rstitial lung disease 07/27/2017 CT chest without: Mild diffuse bronchiectasi s, stable nodular opacities with tree-in-bud type nodules both lungs, stable reticulation within periphery of the lungs and lower lobes bilaterally wit h associated traction bronchiectasis. Findings suggestive of interstitial lexus ng disease with superimposed chronic infection, possible atypical pneu monia or chronic aspiration. Interval improvement in mediastinal adenop athy compared to prior exam. Type 2 diabetes mellitus wit hout complication, without long-term current use of insulin (hcc) Current medications: Metformin 500mg daily Taking medication as directed consistently? Yes Medical Issues / Complications: hypertension and hyper lipidemia Checking blood sugars at home? No. Watching diet? Yes Physical Activity: Sedentary Hypoglycemic spells? No. Some night sweats. Any visual disturbance? No Chest pain? No New numbness, tingling or loss of sensation? No Any recent foot problems, sores or rashes? No Any recent or sudden weight loss? No Change in urination? No. If yes: Any recent illness? No Last eye exam: up to date. Last foot exam: due. HBA1C: Hemoglobin A1C (%) Date Value 09/09/2021 5.3 06/17/2020 6.1 02/12/2020 6.4 ) CMP: Glucose 104 09/18/2021 BUN 12 09/18/2021 Creatinine 0.79 09/18/2021 Sodium 137 09/18/2021 Potassium 4.3 09/18/2021 Chloride 99 09/18/2021 CO2 28 09/18/2021 Protein, Total 7.1 09/18/2021 Albumin 3.5 09/18/2021 Calcium 9.3 09/18/2021 Alkaline Phosphatase 113 09/18/2021 Bilirubin, Total 0.3 09/18/2021 AST 16 09/18/2021 ALT 6 09/18/2021 Last 2 Encounter Wt Readings: Date: Wt: 09/23/2021 80.3 kg (177 lb) 09/18/2021 81.2 kg (179 lb) Cesar (obstructive sleep apnea) Not treated: couldn't wear mask. Keeps HOB at 30 degrees which helps snoring Hyperthyroidism 05/10/17 Tatianna TSH 0.020. FT4 high 1.74, FT3 hi gh 1.83 Symptomatic afib with RVR. NM uptake: no focal areas of uptake. TSab negativ e. Microsomal Ab neg No medications ? Thyroid pain: No. ? Mass effect: No. ? Change in energy level/ fatigue? fine . ? Sleep disturbance ? Sleeps well. ? Temperature Intolerance: cold No, hot Yes. Night swe ats ? In females, menstrual cycle issues? No, If yes: ? Floridalma (more content not included)... VITAMIN D 25 HYDROXY on 09-19-2021 25-hydroxyvitamin D3 [Mass/Vol] 91.3 ng/mL 30.0 - 10 0.0 ng/mL [facility] CBC W Auto Differential panel (Bld) on 09-18-2021 Basophils (Bld) [#/Vol] 0.09 10*3/uL Normal <0.11 [facility] Comment on above: Order Comment: Specimen Type : BLOOD SPECIMENOrdering Facility: [facility] Address: [address] [place] [address] Performed By: #### 16069-1 # ###[facility] LABORATORYCLIA [id number] [place] [address] [place] Basophils/100 WBC (Bld) 0.9 % Normal [facility] Comment on above: Order Comment: Specimen Type : BLOOD SPECIMENOrdering Facility: [facility] Address: [address] [place] [address] Performed By: #### 91788-0 # ###[facility]ORATORYCLIA [id number] [facility], [address] Differential cell count method Nom (Bld) Auto Normal [facility] Comment on above: Order Comment: Specimen Type : BLOOD SPECIMENOrdering Facility: [facility] Address: [facility] [place] [address] Performed By: #### 49177-8 # ###[facility] LABORATORYCLIA [id number] [facility] [address] Eosinophils (Bld) [#/Vol] 0.30 10*3/uL Normal <0.46 [facility] Comment on above: Order Comment: Specimen Type : BLOOD SPECIMENOrdering Facility: [facility] Address: [address] [place] [address] Performed By: #### 17633-4 # ###[facility] LABORATORYCLIA [id number] [address] Eosinophils/100 WBC (Bld) 2.9 % Normal [facility] Comment on above: Order Comment: Specimen Type : BLOOD SPECIMENOrdering Facility: [facility] Address: [address] [place] [address] Performed By: #### 27648-9 # ###[facility] LABORATORYCLIA [id number] [address] Erythrocyte distribution width 13.4 % Normal 11.5-15.0 [facility] (RBC) [Ratio] Comment on above: Order Comment: Specimen Type : BLOOD SPECIMENOrdering Facility: [facility] Address: [address] [place] [address] Performed By: #### 16753-7 # ###[facility] LABORATORYCLIA [id number] [address] Hematocrit (Bld) [Volume 37.9 % Normal 36.0-46.0 [facility] fraction] Comment on above: Order Comment: Specimen Type : BLOOD SPECIMENOrdering Facility: [facility] Address: [address] [place] [address] Performed By: #### 26675-3 # ###[facility]ORATORYCLIA [id number] [facility], [address] [place] Hemoglobin (Bld) [Mass/Vol] 11.5 g/dL Normal 11.5-15.5 [facility] Comment on above: Order Comment: Specimen Type : BLOOD SPECIMENOrdering Facility: [facility] Address: [address] [place] [address] Performed By: #### 10511-5 # ###[facility] LABORATORYCLIA [id number] [facility], [address] IMMATURE GRAN % 0.3 % Normal [facility] Comment on above: Order Comment: Specimen Type : BLOOD SPECIMENOrdering Facility: [facility] Address: [address] [place] [address] Performed By: #### 08934-8 # ###[facility] LABORATORYCLIA [id number] [facility], [address] OF [facility] IMMATURE GRAN ABS 0.03 k/uL Normal <0.10 [facility] Comment on above: Order Comment: Specimen Type : BLOOD SPECIMENOrdering Facility: [facility] Address: [address] [place] [address] Performed By: #### 89745-1 # ###[facility] LABORATORYCLIA [id number] [facility], [address] [place] Lymphocytes (Bld) [#/Vol] 1.19 10*3/uL Normal 1.00-4.00 [facility] Comment on above: Order Comment: Specimen Type : BLOOD SPECIMENOrdering Facility: [facility] Address: [address] [place] [address] Performed By: #### 35293-4 # ###[facility] LABORATORYCLIA [id number] [facility], [address] [place] Lymphocytes/100 WBC (Bld) 11.5 % Normal [facility] Comment on above: Order Comment: Specimen Type : BLOOD SPECIMENOrdering Facility: [facility] Address: [address] [place] [address] Performed By: #### 61229-6 # ###[facility] LABORATORYCLIA [id number] [facility], [address] MCH (RBC) [Entitic mass] 30.6 pg Normal 26.0-34.0 [facility] Comment on above: Order Comment: Specimen Type : BLOOD SPECIMENOrdering Facility: [facility] Address: [address] [place] [address] Performed By: #### 80042-9 # ###[facility] LABORATORYCLIA [id number] [facility], [address] [place] MCHC (RBC) [Mass/Vol] 30.3 g/dL Low 30.5-36.0 [facility] Comment on above: Order Comment: Specimen Type : BLOOD SPECIMENOrdering Facility: [facility] Address: [address] [place] [address] Performed By: #### 78033-9 # ###[facility] LABORATORYCLIA [id number] [facility], [address] [place] MCV (RBC) [Entitic vol] 100.8 fL High 80.0-100.0 [facility] Comment on above: Order Comment: Specimen Type : BLOOD SPECIMENOrdering Facility: [facility] Address: [address] [place] [address] Performed By: #### 80013-8 # ###[facility] LABORATORYCLIA [id number] [facility]RON[address] Monocytes (Bld) [#/Vol] 0.44 10*3/uL Normal <0.87 [facility] Comment on above: Order Comment: Specimen Type : BLOOD SPECIMENOrdering Facility: [facility] Address: [address] [place] [address] Performed By: #### 31519-8 # ###[facility] LABORATORYCLIA [id number] [facility] [place] [id number] [place] [address] [place] Monocytes/100 WBC (Bld) 4.2 % Normal [facility] Comment on above: Order Comment: Specimen Type : BLOOD SPECIMENOrdering Facility: [facility] Address: [facility] [place] [address] Performed By: #### 30720-8 # ###[facility]ORATORYCLIA [id number] [facility], [place] [address] [place] Neutrophils (Bld) [#/Vol] 8.31 10*3/uL High 1.45-7.50 [facility] Comment on above: Order Comment: Specimen Type : BLOOD SPECIMENOrdering Facility: [facility] Address: [address] [place] [address] Performed By: #### 65334-7 # ###[facility]ORATORYCLIA [id number] [facility], [address] [place] Neutrophils/100 WBC (Bld) 80.2 % Normal [facility] Comment on above: Order Comment: Specimen Type : BLOOD SPECIMENOrdering Facility: [facility] Address: [address] [place] [address] Performed By: #### 36661-2 # ###[facility]ORATORYCLIA [id number] [facility], [address] [place] Nucleated RBC (Bld) [#/Vol] 10*3/uL Normal <0.01 [facility] Comment on above: Order Comment: Specimen Type : BLOOD SPECIMENOrdering Facility: [facility] Address: [address] [place] [address] Performed By: #### 07789-6 # ###[facility]ORATORYCLIA [id number] [facility], [address] [place] Nucleated RBC/100 WBC (Bld) 0.0 /100 WBC Normal [facility] [Ratio] Comment on above: Order Comment: Specimen Type : BLOOD SPECIMENOrdering Facility: [facility] Address: [address] [place] [address] Performed By: #### 62612-6 # ###[facility] LABORATORYCLIA [id number] [facility] [place], [place] [id number] [address] Platelet mean volume (Bld) 9.8 fL Normal 9.0-12.7 [facility] [Entitic vol] Comment on above: Order Comment: Specimen Type : BLOOD SPECIMENOrdering Facility: [facility] Address: [address] [place] [address] Performed By: #### 18841-4 # ###[facility] LABORATORYCLIA [id number] [facility], [address] OF [facility] Platelets (Bld) [#/Vol] 334 10*3/uL Normal 150-400 [facility] Comment on above: Order Comment: Specimen Type : BLOOD SPECIMENOrdering Facility: [facility] Address: [address] [place] [address] Performed By: #### 31834-9 # ###[facility] LABORATORYCLIA [id number] [facility] [place], [address] OF [facility] RBC (Bld) [#/Vol] 3.76 10*6/uL Low 3.90-5.20 [facility] Comment on above: Order Comment: Specimen Type : BLOOD SPECIMENOrdering Facility: [facility] Address: [address] [place] [address] Performed By: #### 86271-5 # ###[facility] LABORATORYCLIA [id number] [facility] [place], [address] [place] WBC (Bld) [#/Vol] 10.36 10*3/uL Normal 3.70-11.00 [facility] Comment on above: Order Comment: Specimen Type : BLOOD SPECIMENOrdering Facility: [facility] Address: [address] [place], [place] [id number] Performed By: #### 74491-7 # ###[facility] LABORATORYCLIA [id number] [facility] [place] [place], [place] [id number] [place] [address] [place] Abs Immature Gran 0.03 k/uL <0.10 k/uL [facility] Basophils (Bld) [#/Vol] 0.09 10*3/uL <0.11 k/uL [facility] Basophils/100 WBC (Bld) 0.9 % [facility] Differential cell count method Auto [facility] Nom (Bld) Eosinophils (Bld) [#/Vol] 0.30 10*3/uL <0.46 k/uL [facility] Eosinophils/100 WBC (Bld) 2.9 % [facility] Erythrocyte distribution width 13.4 % 11.5 - 15. 0 % [facility] (RBC) [Ratio] Hematocrit (Bld) [Volume 37.9 % 36.0 - 46.0 % [facility] fraction] Hemoglobin (Bld) [Mass/Vol] 11.5 g/dL 11.5 - 15.5 g /dL [facility] Immature Gran % 0.3 % [facility] inic Lymphocytes (Bld) [#/Vol] 1.19 10*3/uL 1.00 - 4.00 k/u L [facility] Lymphocytes/100 WBC (Bld) 11.5 % [facility] MCH (RBC) [Entitic mass] 30.6 pg 26.0 - 34.0 pg [facility] MCHC (RBC) [Mass/Vol] 30.3 g/dL Low 30.5 - 36.0 g/dL [facility] MCV (RBC) [Entitic vol] 100.8 fL High 80.0 - 100.0 fL [facility] Monocytes (Bld) [#/Vol] 0.44 10*3/uL <0.87 k/uL [facility] Monocytes/100 WBC (Bld) 4.2 % [facility] Neutrophils (Bld) [#/Vol] 8.31 10*3/uL High 1.45 - 7.50 k/u L [facility] Neutrophils/100 WBC (Bld) 80.2 % [facility] Nucleated RBC (Bld) [#/Vol] 10*3/uL <0.01 k/uL [facility] Nucleated RBC/100 WBC (Bld) 0.0 /100 WBC [facility] [Ratio] Platelet mean volume (Bld) 9.8 fL 9.0 - 12.7 fL [facility] [Entitic vol] Platelets (Bld) [#/Vol] 334 10*3/uL 150 - 400 k/uL [facility] RBC (Bld) [#/Vol] 3.76 10*6/uL Low 3.90 - 5.20 m/uL [facility] WBC (Bld) [#/Vol] 10.36 10*3/uL 3.70 - 11.00 k/uL [facility] CNOV on 09-18-2021 CNOV Office Visit (RHBATH) Normal [address] [facility] VIVIANA SANTANA ([id number]) 1955 F Medical Date Time Provider Department Center 09/18/21 11:20 AM [facility] During your visit today, we recorded the following inf ormation about you: Temperature Pulse Respiration Blood pressure 96.2 degrees 82/minute 20/minute 148/88 Weight Height 81.2 kg 1.6 m Asia Calderón MD 09/19/2021 9:03 AM Signed RHEUMATOLOGY PROGRESS NOTE Patient is here for a follow up visit for Patient pres ents with: Joint Pain HPI: Viviana Santana is a 66 year old female who presents joint pain Pain in toes - tingling, numbness, ankle s, knees., shoulders. Noticed bumps in elbows. Hurts. Sees pain anesthesia. - She is not a candidate for spinal injections or surgery at this time. Brief Rheumatological history - Not on Arava 10 mg daily. More joint pain since not on pred. ? ? Diagnosed with RA 2017. She was admitted at [facility] - double pneumonia, RA. She was seeing rheum but she had insura nce conflicts. She was prescribed prednisone, gabapentin, Arava. She presente d with toe tingling, knee, hand swelling, elbows, shoulders, neck. She was once diagnosed with anemia. not much improvement with Arava. Ran out of Arava few months ago. I am in pain all the time . Only steroids help. PCP sent pr ed She had shoulder injections. ? PAF, COPD, ILD, DM2, polyneuropathy. She follows with pulm in [place]. RA, chronic steroids, adrenal insuff ? Family h/o autoimmune disease - father with psoriasis ? Smoking - ex smoker quit 2010 ? Interval Review of Systems CONSTITUTIONAL: Recent Weight change: No Fever: No EYES: Dryness in nose: No Dryness of mouth: No Oral ulcers: No CARDIOVASCULAR: Pain in chest: No RESPIRATORY: Shortness of breath: No Cough: No GASTROINTESTINAL: Nausea: No Vomiting: No Changes in bowel movements: No Jaundice: No Heartburn: No MUSCULOSKELETAL: Per HPI INTEGUMENTARY: Rash: No HEMATOLOGIC/LYMPHATIC: Anemia: No NEUROLOGICAL SYSTEM: Headaches: No Sensitivity or pain of hands and/or feet: No PSYCHIATRIC: Anxiety: No Poor sleep: No PAST MEDICAL HISTORY Diagnosis Date - Anemia, unspecified - Asthma - Atrial fibrillation (HCC) 04/26/2017 - Cardiac disease 2020 pt does not know other than she has heart problems - Chronic bronchitis (HCC) - COPD (chronic obstructive pulmonary disease) (HCC) Chronic bronchitis by history. - COVID-19 vaccine series completed 07-27-2020 2nd dose Pfizer - Hyperglycemia 12/25/2016 - Hyperthyroidism 05/10/2017 [place] - Rheumatoid arthritis (HCC) Leflunomide. Dayanna Silva MD. 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 Adanlunomiddavid, Dayanna Silva MD PAST SURGICAL HISTORY Procedure Laterality Date - COLONOSCOPY FLX DX W/COLLJ SPEC WHEN PFRMD 0 Colonoscopy - ESOPHAGOGASTRODUODENOSCOPY TRANSORAL DIAGNOSTIC 09/18 EGD - LIG/TRNSXJ FLP TUBE ABDL/VAG APPR UNI/BI - XCAPSL CTRC RMVL INSJ IO LENS PROSTH W/O ECP Right 0 12/15/2017 Cataract Extraction with PC IOL - XCAPSL CTRC RMVL INSJ IO LENS PROSTH W/O ECP Left Cataract Extraction with PC IOL History Review: I have reviewed and modified as needed , the following during this visit: Allergies, Past Medical History, Past Surgical History, Past Family History, Past Social History. BP 148/88 Pulse 82 Temp (!) 35.7 ?C (96.2 ?F) (Tem poral) Resp 20 Ht 160 cm (5' 3 ) Wt 81.2 kg (179 lb) LMP (LMP Unknow n) BMI 31.71 kg/m? Physical Exam GENERAL: Well appearing, alert, comfortable, in no acu te distress, well-hydrated, well nourished. HEENT: Negative for external ears normal. Canals are clear. Both TMs visualized and are normal. Eye Exam nor mal. External nose normal, no nasal ulcer or throat ulcer. NECK: NECK Supple, no adenopathy; thyroid symmetric, n ormal size, no bruits CARDIAC: regular rate and rhythm, No murmur asculated. and Equal peripheral pulses RESPIRATORY: Lungs clear to auscultation. No wheezing, rhonchi, rales VASCULAR: RRR without murmur, gallop, or rubs. No ecto py. NEURO: Motor and sensory exam normal MOTOR: Normal; including tone, gait, stressed gait, po wer and coordination. SKIN: Negative for alopecia, skin rash, malar rash, sk in lesion, skin ulcer, pits, thickening, color changes, telangiectasias , nail changes, nail ridging, nail pitting, onycholysis MUSCULOSKELETAL: DIPS: Normal PIPS: Abnormal, mild synovitis all PIPs bl MCPs: Abnormal, synovitis MCP 2,3 left Wrists: Normal Elbows: Normal Shoulders: Normal C-Spine: Normal Hips: Normal Knees: Abnormal, effusion bl, warm, tender Ankles: Normal MTPs / Toes: Normal Arches: Normal Lab Results: Glucose 103 09/09/2021 ALT 6 09/09/2021 WBC 9.48 09/09/2021 Hemoglobin 11.5 09/09/2021 Platelet Count 368 09/09/2021 WSR 56 12/23/2016 CRP 5.2 12/23/2016 Sero (more content not included)... CNPN on 09-18-2021 MELISAN Telephone ([employer]) Normal [address] [facility] ABUNDIOVIVIANA ARRAIZA ([id number]) 1955 F Medical Date Time Provider Department Center 09/18/21 ASIA CALDERÓN During your visit today, we recorded the following inf ormation about you: Heather Cruz 09/18/2021 1:11 PM Signed Internal referral Pain Mgt conf #[id number] Heather Cruz 09/19/2021 11:16 AM Signed Sirena Royal NP 11/20/21 Heather Cruz Allergies As of Date: 09/18/2021 Noted Allergy Reactio n RAGWEED 03/10/2011 14 - Other: See Comments TREES 03/10/2011 14 - Other: See Comments Date Reviewed: 09/18/2021 Reviewed by: Sayda Jimenez LPN - Fully Assessed Reason for Visit: Initial Consult [665] Prescriptions as of 09/19/2021 - leflunomide (ARAVA) 20 mg tablet Take 1 tablet by mouth once daily. - predniSONE (DELTASONE) 5 mg tablet Take 1 tablet by mouth once daily. - gabapentin (NEURONTIN) 100 mg capsule Take 2 capsules by mouth twice daily for 180 days. - metoprolol succinate ER (TOPROL XL) 100 mg Take 1 tablet by mouth once daily. - rivaroxaban (XARELTO) 20 mg tablet Take 1 tablet by mouth daily with dinner. - ipratropium-albuterol (DUONEB) 0.5 mg-3 mg(2.5 mg ba se)/3 mL nebu Inhale 3 mL as instructed four times daily. - guaiFENesin (MUCINEX) 600 mg 12 hr tablet Take 1 tablet by mouth twice daily. - metFORMIN ER (GLUCOPHAGE XR) 500 mg 24 hr tablet Take 1 tablet by mouth once daily. - ergocalciferol 50,000 unit capsule (VITAMIN D2, DRIS DOL) Take 1 capsule by mouth one time a week. - ondansetron (ZOFRAN) 4 mg tablet Take 1 tablet by mouth every 6 hours as needed for bernabe sea/vomiting. - ferrous gluconate 324 mg (37.5 mg iron) tablet Take 1 tablet by mouth twice daily with meals. - gabapentin (NEURONTIN) 400 mg capsule Take 1 capsule by mouth three times daily for 180 days . - Miscellaneous Medical Supply Portable oxygen concentrator 3l/min at all times. - omeprazole (PRILOSEC) 40 mg capsule Take 1 capsule by mouth as needed. - verapamil (CALAN, ISOPTIN) 80 mg tablet Take 0.5 tablets by mouth every 8 hours. - COMPOUNDED PRESCRIPTION Provide nebulizer accessory kit. DME: [employer]. - COMPOUNDED PRESCRIPTION Accessories for nebulizer J43.1 Panlobular emphysema ( HCC) (primary encounter diagnosis) J84.9 ILD (interstitial lung dise ase) (HCC) - COMPOUNDED PRESCRIPTION #1 Continuous Flow Stationary O2 Concentrator Sig: O2 2l/min liter flow Patient is to keep portablel concentrator as well J43. 2 Centrilobular emphysema (HCC) J84.9 ILD (interstitial lung disease) (HCC) J96.11 Chronic respiratory failure with hypoxia (HCC) - COMPOUNDED PRESCRIPTION Face mask: hypoxia - COMPOUNDED PRESCRIPTION Portable oxygen concentrator, setting 2 at rest, setti ng 3 with ambulation. - COMPOUNDED PRESCRIPTION Evaluate patient for portable pulse dose O2 concentrat or. - COMPOUNDED PRESCRIPTION Portable oxygen concentrator. - acetaminophen (TYLENOL EXTRA STRENGTH) 500 mg tablet Take 1,000 mg by mouth every 6 hours as needed. Facility-Administered Medications as of 09/19/2021 - perflutren lipid microspheres 1.3 mL in NaCl (PF) 0. 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] 05/19/2017 05/19/2017 Iatrogenic adrenal insufficiency (HCC) [E27.49] 2017 Chronic respiratory failure with hypoxia (HCC) *2017 Rheumatoid arthritis involving multiple sites w*2017 longterm current use of immunosuppressive drug*2017 Paroxysmal atrial fibrillation (HCC) [I48.0] 8 Hyperthyroidism [E05.90] 05/10/2017 Normocytic anemia [D64.9] 05/28/2017 Pre-diabetes [R73.03] 06/28/2017 Current chronic use of systemic steroids [Z79.5*2017 Type 2 diabetes mellitus without complication, *2017 Combined 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-related cataract of both *201701/06/2018 Regular astigmatism, bilateral [H52.223] 11/22/2017 Combined 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-related cataract of right*201701/06/2018 Combined 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-related cataract of left *201701/05/2018 Combined 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-related cataract, right e*201712/15/2017 Status post cataract extraction and insertion o*201707/28/2018 Combined form of age-related cataract, left eye*201701/06/2018 Status post cataract extraction and insertion o*201707/28/2018 Vitreous floaters of both eyes [H43.393] 07/28/2018 Pseudophakia of both eyes [Z96.1] 07/28/2018 CESAR (obstructive sleep apnea) [G47.33] 01/23/2019 Pneumonia of right upper lobe due to methicilli*201810/06/2019 Acute bi (more content not included)... Comprehensive metabolic 2000 panel on 09-18-2021 Albumin [Mass/Vol] 3.5 g/dL Low 3.9 - 4.9 g/dL [facility] ALP [Catalytic 113 U/L 34 - 123 U/L [facility] activity/Vol] ALT With P-5'-P 6 U/L Low 7 - 38 U/L [facility] [Catalytic activity/Vol] Anion gap [Moles/Vol] 10 mmol/L 9 - 18 mmol/L [facility] AST With P-5'-P 16 U/L 13 - 35 U/L [facility] [Catalytic activity/Vol] Bilirubin [Mass/Vol] 0.3 mg/dL 0.2 - 1.3 mg/dL [facility] Calcium [Mass/Vol] 9.3 mg/dL 8.5 - 10.2 mg/dL [facility] Chloride [Moles/Vol] 99 mmol/L 97 - 105 mmol/L [facility] CO2 [Moles/Vol] 28 mmol/L 22 - 30 mmol/L [facility] Creatinine [Mass/Vol] 0.79 mg/dL 0.58 - 0.96 mg/dL [facility] Estimated Glomerular 84 mL/min/1.73m >=60 mL/min/1.73m [facility] Filtration Rate Glucose [Mass/Vol] 104 mg/dL High 74 - 99 mg/dL [facility] Potassium [Moles/Vol] 4.3 mmol/L 3.7 - 5.1 mmol/L Cl [facility] Protein [Mass/Vol] 7.1 g/dL 6.3 - 8.0 g/dL [facility] Sodium [Moles/Vol] 137 mmol/L 136 - 144 mmol/L [facility] Urea nitrogen [Mass/Vol] 12 mg/dL 7 - 21 mg/dL [facility] Albumin [Mass/Vol] 3.5 g/dL Low 3.9-4.9 [facility] Comment on above: Order Comment: Specimen Type : BLOOD SPECIMENOrdering Facility: [facility] Address: [address] [place] [address] Performed By: #### 98415-2, IRON, FERR ####[facility] LABORATORYCLIA [id number] [address] ALP [Catalytic activity/Vol] 113 U/L Normal 34-123 [facility] Comment on above: Order Comment: Specimen Type : BLOOD SPECIMENOrdering Facility: [facility] Address: [address] [place] [address] Performed By: #### 04949-0, IRON, FERR ####[facility] LABORATORYCLIA [id number] [address] OF [facility] ALT With P-5'-P [Catalytic activity/Vol] 6 U/L Low 7-38 [facility] Comment on above: Order Comment: Specimen Type : BLOOD SPECIMENOrdering Facility: [facility] Address: [address] [place] [address] Performed By: #### 80974-7, IRON, FERR ####[facility] LABORATORYCLIA [id number] [address] Anion gap [Moles/Vol] 10 mmol/L Normal 9-18 [facility] Comment on above: Order Comment: Specimen Type : BLOOD SPECIMENOrdering Facility: [facility] Address: [address] [address] Performed By: #### 25273-2, IRON, FERR ####[facility] LABORATORYCLIA [id number] [address] AST With P-5'-P [Catalytic 16 U/L Normal 13-35 [facility] activity/Vol] Comment on above: Order Comment: Specimen Type : BLOOD SPECIMENOrdering Facility: [facility] Address: [address] [address] Performed By: #### 57535-0, IRON, FERR ####[facility] LABORATORYCLIA [id number] [address] OF [facility] Bilirubin [Mass/Vol] 0.3 mg/dL Normal 0.2-1.3 [facility] Comment on above: Order Comment: Specimen Type : BLOOD SPECIMENOrdering Facility: [facility] Address: [address] [address] Performed By: #### 47776-3, IRON, FERR ####[facility] LABORATORYCLIA [id number] [address] OF [facility] Calcium [Mass/Vol] 9.3 mg/dL Normal 8.5-10.2 [facility] Comment on above: Order Comment: Specimen Type : BLOOD SPECIMENOrdering Facility: [facility] Address: [address] [address] Performed By: #### 42724-9, IRON, FERR ####[facility]ORATORYCLIA [id number] A ABHI [address] Chloride [Moles/Vol] 99 mmol/L Normal 97-105 [facility] Comment on above: Order Comment: Specimen Type : BLOOD SPECIMENOrdering Facility: [facility] Address: [address] [place] [address] Performed By: #### 38243-1, IRON, FERR ####[facility] LABORATORYCLIA [id number] [address] OF [facility] CO2 [Moles/Vol] 28 mmol/L Normal 22-30 [facility] Comment on above: Order Comment: Specimen Type : BLOOD SPECIMENOrdering Facility: [facility] Address: [address] [place] [address] Performed By: #### 45242-3, IRON, FERR ####[facility] LABORATORYCLIA [id number] [address] Creatinine [Mass/Vol] 0.79 mg/dL Normal 0.58-0.96 [facility] Comment on above: Order Comment: Specimen Type : BLOOD SPECIMENOrdering Facility: [facility] Address: [address] [place] [address] Performed By: #### 85649-6, IRON, FERR ####[facility] LABORATORYCLIA [id number] [address] ESTIMATED GLOMERULAR 84 mL/min/1.73m??? Normal >=60 A [facility] Comment on above: Order Comment: Specimen Type : BLOOD SPECIMENOrdering Facility: [facility] Address: [address] [place] [address] Result Comment: Estimated Gl omerular Filtration Rate (eGFR) is calculated using the 2020 CK D-EPI creatinine equation. This equation utilizes serum crea tinine, sex, and age as parameters. The creatinine assay has traceab le calibration to isotope dilution-mass spectrometry. Refer to KDIGO guidelines for clinical interpretation. In patients with unstable renal function, e.g. those with acute kidney inju ry, the eGFR may not accurately reflect actual GFR. Performed By: #### 43500-8, IRON, FERR ####[facility] LABORATORYCLIA [id number] [place] [address] [place] Glucose [Mass/Vol] 104 mg/dL High 74-99 [facility] Comment on above: Order Comment: Specimen Type : BLOOD SPECIMENOrdering Facility: [facility] Address: [address] [place] [address] Result Comment: The [place] Diabetes [employer] (ADA) provides guidance for cutoff values for fasting glucose and random glucose. The ADA defines fasting as no caloric intake for at least 8 hours. Fas ting plasma glucose results between 100 to 125 mg/dL indicate increased risk for diabetes (prediabetes). Fasting plasma glucose resul ts greater than or equal to 126 mg/dL meet the criteria for diagnosis of diabetes. In the absence of unequivocal hyperglycemia, results should be confirmed by repeat testing. In a patient with classic s ymptoms of hyperglycemia or hyperglycemic crisis, random plasma glucose results greater than or equal to 200 mg/dL meet the criteria for diagnosis of diabetes. Reference: Standards of [facility] in Diabetes 2016, [place] [employer] Association. Diabetes Care. 2016.39(Suppl 1). Performed By: #### 95226-0, IRON, FERR ####[facility] LABORATORYCLIA [id number] [place] [address] [place] Potassium [Moles/Vol] 4.3 mmol/L Normal 3.7-5.1 [facility] Comment on above: Order Comment: Specimen Type : BLOOD SPECIMENOrdering Facility: [facility] Address: [address] [address] Performed By: #### 37899-5, IRON, FERR ####[facility] LABORATORYCLIA [id number] [place] [address] [place] Protein [Mass/Vol] 7.1 g/dL Normal 6.3-8.0 [facility] Comment on above: Order Comment: Specimen Type : BLOOD SPECIMENOrdering Facility: [facility] Address: [address] [address] Performed By: #### 94512-3, IRON, FERR ####[facility] LABORATORYCLIA [id number] [place] [address] [place] Sodium [Moles/Vol] 137 mmol/L Normal 136-144 [facility] Comment on above: Order Comment: Specimen Type : BLOOD SPECIMENOrdering Facility: [facility] Address: [address] [place] [address] Performed By: #### 57998-7, IRON, FERR ####[facility] LABORATORYCLIA [id number] [place] [address] [place] Urea nitrogen [Mass/Vol] 12 mg/dL Normal 7-21 [facility] Comment on above: Order Comment: Specimen Type : BLOOD SPECIMENOrdering Facility: [facility] Address: [address] [place] [address] Performed By: #### 13602-0, IRON, FERR ####[facility] H[facility] SERVICESCLIA [id number] [place] [address] [place] FERRITIN BLD on 09-18-2021 Ferritin [Mass/Vol] 489.6 ng/mL High 14.7 - 205.1 ng/mL [facility] Ferritin [Mass/Vol] 489.6 ng/mL High 14.7-205.1 [facility] Comment on above: Order Comment: Specimen Type : BLOOD SPECIMENOrdering Facility: [facility] Address: [address] [place] [address] Performed By: #### 13198-4, IRON, FERR ####[facility] LABORATORYCLIA [id number] [place] [address] [place] IRON + TIBC on 09-18-2021 Iron [Mass/Vol] 31 ug/dL Low 41 - 186 ug/dL [facility] Iron binding capacity 190 ug/dL Low 232 - 386 ug/dL [facility] [Mass/Vol] Iron saturation [Mass 16 % 15 - 57 % [facility] fraction] Iron [Mass/Vol] 31 ug/dL Low 41-186 [facility] Comment on above: Order Comment: Specimen Type : BLOOD SPECIMENOrdering Facility: [facility] Address: [address] [place] [address] Performed By: #### 57274-4, IRON, FERR ####[facility] LABORATORYCLIA [id number] [address] [place] Iron binding capacity [Mass/Vol] 190 ug/dL Low 232-386 [facility] Comment on above: Order Comment: Specimen Type : BLOOD SPECIMENOrdering Facility: [facility] Address: [address] [place] [address] Performed By: #### 85702-9, IRON, FERR ####[facility] LABORATORYCLIA [id number] [address] STATES OF [facility] Iron saturation [Mass fraction] 16 % Normal 15-57 [facility] Comment on above: Order Comment: Specimen Type : BLOOD SPECIMENOrdering Facility: [facility] Address: [address] [place] [address] Performed By: #### 61511-0, IRON, FERR ####[facility] LABORATORYCLIA [id number] [address] [place] VITAMIN D 25 HYDROXY on 09-18-2021 25-hydroxyvitamin D3 [Mass/Vol] 91.3 ng/mL Normal 30.0-100. 0 [facility] Comment on above: Order Comment: Specimen Type : BLOOD SPECIMENOrdering Facility: [facility] Address: [address] [place] [address] Result Comment: Classificati on of 25 [place] Vitamin D status: Deficiency: <= 20.0 ng/ml. Insufficientcy: 21.0-29.0 ng /ml. Sufficiency: >= 30.0 ng/ml. Performed By: #### VITD #### [facility] LABORATORYCLIA [id number] [address] [place] CBC W Auto Differential panel (Bld) on 09-09-2021 Basophils (Bld) [#/Vol] 0.11 10*3/uL High <0.11 [facility] Comment on above: Order Comment: Specimen Type : BLOOD SPECIMENOrdering Facility: [facility] Address: [address] [place], [place] [address] Performed By: #### 83492-7 # ###[facility] LABCLIA [id number] [place] [address] [place] Basophils/100 WBC (Bld) 1.2 % Normal [facility] Comment on above: Order Comment: Specimen Type : BLOOD SPECIMENOrdering Facility: [facility] Address: [address] [place], [place] [address] Performed By: #### 67281-6 # ###[facility] LABCLIA [id number] [place] [address] [place] Differential cell count method Nom (Bld) Auto Normal [facility] Comment on above: Order Comment: Specimen Type : BLOOD SPECIMENOrdering Facility: [facility] Address: [address] [place], [place] [address] Performed By: #### 68772-1 # ###[facility] LABCLIA [id number] [place] [address] [place] Eosinophils (Bld) [#/Vol] 0.41 10*3/uL Normal <0.46 [facility] Comment on above: Order Comment: Specimen Type : BLOOD SPECIMENOrdering Facility: [facility] Address: [address] [place], [place] [address] Performed By: #### 43897-3 # ###[facility] LABCLIA [id number] [address] [place] Eosinophils/100 WBC (Bld) 4.3 % Normal [facility] Comment on above: Order Comment: Specimen Type : BLOOD SPECIMENOrdering Facility: [facility] Address: [address] [place] [address] Performed By: #### 79405-3 # ###[facility] LABCLIA [id number] [place] [address] [place] Erythrocyte distribution width 13.4 % Normal 11.5-15.0 [facility] (RBC) [Ratio] Comment on above: Order Comment: Specimen Type : BLOOD SPECIMENOrdering Facility: [facility] Address: [address] [place], [place] [address] Performed By: #### 92094-9 # ###[facility] LABIA [id number] [place] [address] [place] Hematocrit (Bld) [Volume fraction] 39.3 % Normal 36.0-4 6.0 [facility] Comment on above: Order Comment: Specimen Type : BLOOD SPECIMENOrdering Facility: [facility] Address: [address] [place], [place] [address] Performed By: #### 50523-1 # ###[facility] LABIA [id number] [place] [address] [place] Hemoglobin (Bld) [Mass/Vol] 11.5 g/dL Normal 11.5-15.5 [facility] Comment on above: Order Comment: Specimen Type : BLOOD SPECIMENOrdering Facility: [facility] Address: [address] [place], [place] [address] Performed By: #### 19197-0 # ###[facility] LABIA [id number] [place] [address] [place] IMMATURE GRAN % 0.4 % Normal [facility] Comment on above: Order Comment: Specimen Type : BLOOD SPECIMENOrdering Facility: [facility] Address: [address] [place], [place] [address] Performed By: #### 47907-2 # ###[facility] LABIA [id number] [address] [place] IMMATURE GRAN ABS 0.04 k/uL Normal <0.10 [facility] Comment on above: Order Comment: Specimen Type : BLOOD SPECIMENOrdering Facility: [facility] Address: [address] [place], [place] [address] Performed By: #### 45697-1 # ###[facility] LABCLIA [id number] [place] [address] [place] Lymphocytes (Bld) [#/Vol] 2.11 10*3/uL Normal 1.00-4.00 [facility] Comment on above: Order Comment: Specimen Type : BLOOD SPECIMENOrdering Facility: [facility] Address: [address] [place] [address] Performed By: #### 29275-5 # ###[facility] LABIA [id number] [place] [address] [place] Lymphocytes/100 WBC (Bld) 22.3 % Normal [facility] Comment on above: Order Comment: Specimen Type : BLOOD SPECIMENOrdering Facility: [facility] Address: [address] [place] [address] Performed By: #### 35125-3 # ###[facility] LABIA [id number] [place] [address] [place] MCH (RBC) [Entitic mass] 30.4 pg Normal 26.0-34.0 [facility] Comment on above: Order Comment: Specimen Type : BLOOD SPECIMENOrdering Facility: [facility] Address: [address] [place], [place] [address] Performed By: #### 98667-7 # ###[facility] LABIA [id number] [place] [address] [place] MCHC (RBC) [Mass/Vol] 29.3 g/dL Low 30.5-36.0 [facility] Comment on above: Order Comment: Specimen Type : BLOOD SPECIMENOrdering Facility: [facility] Address: [address] [place], [place] [address] Performed By: #### 07328-2 # ###[facility] LABIA [id number] [place] [address] [place] MCV (RBC) [Entitic vol] 104.0 fL High 80.0-100.0 [facility] Comment on above: Order Comment: Specimen Type : BLOOD SPECIMENOrdering Facility: [facility] Address: [address] [place], [place] [address] Performed By: #### 50595-9 # ###[facility] LABCLIA [id number] [place] [address] [place] Monocytes (Bld) [#/Vol] 0.56 10*3/uL Normal <0.87 [facility] Comment on above: Order Comment: Specimen Type : BLOOD SPECIMENOrdering Facility: [facility] Address: [address] [place], [place] [address] Performed By: #### 97816-9 # ###[facility] LABCLIA [id number] [place] [address] [place] Monocytes/100 WBC (Bld) 5.9 % Normal [facility] Comment on above: Order Comment: Specimen Type : BLOOD SPECIMENOrdering Facility: [facility] Address: [address] [place], [place] [address] Performed By: #### 78953-4 # ###[facility] LABCLIA [id number] [place] [address] [place] Neutrophils (Bld) [#/Vol] 6.25 10*3/uL Normal 1.45-7.50 [facility] Comment on above: Order Comment: Specimen Type : BLOOD SPECIMENOrdering Facility: [facility] Address: [address] [place], [place] [address] Performed By: #### 65502-6 # ###[facility] LABCLIA [id number] [place] [address] [place] Neutrophils/100 WBC (Bld) 65.9 % Normal [facility] Comment on above: Order Comment: Specimen Type : BLOOD SPECIMENOrdering Facility: [facility] Address: [address] [place], [place] [address] Performed By: #### 39875-9 # ###[facility] LABIA [id number] [place] [address] [place] Nucleated RBC (Bld) [#/Vol] 10*3/uL Normal <0.01 [facility] Comment on above: Order Comment: Specimen Type : BLOOD SPECIMENOrdering Facility: [facility] Address: [address] [place] [address] Performed By: #### 90106-5 # ###[facility] LABIA [id number] [place] [address] [place] Nucleated RBC/100 WBC (Bld) [Ratio] 0.0 /100 WBC Normal [facility] Comment on above: Order Comment: Specimen Type : BLOOD SPECIMENOrdering Facility: [facility] Address: [address] [place] [phone] Performed By: #### 76454-1 # ###[facility] [id number] [place] [address] [place] Platelet mean volume (Bld) 10.1 fL Normal 9.0-12.7 C [facility] [Entitic vol] Comment on above: Order Comment: Specimen Type : BLOOD SPECIMENOrdering Facility: [facility] Address: [address] [place] [phone] Performed By: #### 38639-2 # ###[facility] LABIA [id number] [place] [address] [place] Platelets (Bld) [#/Vol] 368 10*3/uL Normal 150-400 [facility] Comment on above: Order Comment: Specimen Type : BLOOD SPECIMENOrdering Facility: [facility] Address: [address] [place] [phone] Performed By: #### 80065-9 # ###[facility] LABIA [id number] [place] [address] [place] RBC (Bld) [#/Vol] 3.78 10*6/uL Low 3.90-5.20 [facility] Comment on above: Order Comment: Specimen Type : BLOOD SPECIMENOrdering Facility: [facility] Address: [address] [place] [address] Performed By: #### 42449-2 # ###[facility] LABCLIA [id number] [place] [address] [place] WBC (Bld) [#/Vol] 9.48 10*3/uL Normal 3.70-11.00 [facility] Comment on above: Order Comment: Specimen Type : BLOOD SPECIMENOrdering Facility: [facility] Address: [address] [place], [place] [address] Performed By: #### 31092-9 # ###[facility] LABCLIA [id number] [place] [address] [place] [facility] [place] Comprehensive metabolic 2000 panel on 0 09-09-2021 Albumin [Mass/Vol] 3.5 g/dL Low 3.9-4.9 [facility] Comment on above: Order Comment: Specimen Type : BLOOD SPECIMENOrdering Facility: [facility] Address: [address] [place] [address] Performed By: #### FT4 FERR , 53686-9, 3016-3 ####[facility] LABCLIA [id number] [place] [address] [place] ALP [Catalytic activity/Vol] 114 U/L Normal 34-123 [facility] Comment on above: Order Comment: Specimen Type : BLOOD SPECIMENOrdering Facility: [facility] Address: [address] [place] [phone] Performed By: #### FT4, FERR , 27919-4, 3016-3 ####[facility] LABCLIA [id number] [address] [place] ALT [Catalytic activity/Vol] 6 U/L Low 7-38 [facility] Comment on above: Order Comment: Specimen Type : BLOOD SPECIMENOrdering Facility: [facility] Address: [address] [place] [phone] Performed By: #### MARIELLA PAGE , , 3015-3 ####[facility] LABCLIA [id number] [address] [address] [place] Anion gap [Moles/Vol] 11 mmol/L Normal 9-18 [facility] Comment on above: Order Comment: Specimen Type : BLOOD SPECIMENOrdering Facility: [facility] Address: [address] [place], [place] [address] Performed By: #### MARIELLA PAGE , , 3 ####[facility] LABCLIA [id number] [place] [address] [place] AST [Catalytic activity/Vol] 14 U/L Normal 13-35 [facility] Comment on above: Order Comment: Specimen Type : BLOOD SPECIMENOrdering Facility: [facility] Address: [address] [place], [place] [address] Performed By: #### MARIELLA PAGE , , 3 ####[facility] LABCLIA [id number] [place] [address] [place] Bilirubin [Mass/Vol] 0.2 mg/dL Normal 0.2-1.3 [facility] Comment on above: Order Comment: Specimen Type : BLOOD SPECIMENOrdering Facility: [facility] Address: [address] [place] [phone] Performed By: #### MARIELLA PAGE , , 3 ####[facility] LABCLIA [id number] [address] [place] Calcium [Mass/Vol] 9.2 mg/dL Normal 8.5-10.2 [facility] Comment on above: Order Comment: Specimen Type : BLOOD SPECIMENOrdering Facility: [facility] Address: [address] [place] [address] Performed By: #### MARIELLA PAGE , , 3 ####[facility] LABCLIA [id number] [place] [address] [place] Chloride [Moles/Vol] 99 mmol/L Normal 97-105 [facility] Comment on above: Order Comment: Specimen Type : BLOOD SPECIMENOrdering Facility: [facility] Address: [address] [place], [place] [address] Performed By: #### MARIELLA PAGE , , 3 ####[facility] LABCLIA [id number] [place], [place] [address] [place] CO2 [Moles/Vol] 29 mmol/L Normal 22-30 [facility] Comment on above: Order Comment: Specimen Type : BLOOD SPECIMENOrdering Facility: [facility] Address: [address] [place] [address] Performed By: #### MARIELLA PAGE , , 3 ####[facility] LABCLIA [id number] [place], [place] [address] [place] Creatinine [Mass/Vol] 0.74 mg/dL Normal 0.58-0.96 [facility] Comment on above: Order Comment: Specimen Type : BLOOD SPECIMENOrdering Facility: [facility] Address: [address] [place] [address] Performed By: #### MARIELLA PAGE , , 3 ####[facility] LABCLIA [id number] [place] [address] [place] ESTIMATED GLOMERULAR 90 mL/min/1.73m??? Normal >=60 C [facility] FILTRATION RATE Comment on above: Order Comment: Specimen Type : BLOOD SPECIMENOrdering Facility: [facility] Address: [address] [place] [address] Result Comment: Estimated Gl omerular Filtration Rate (eGFR) is calculated using the 2020 CK D-EPI creatinine equation. This equation utilizes serum crea tinine, sex, and age as parameters. The creatinine assay has traceab le calibration to isotope dilution-mass spectrometry. Refer to KDIGO guidelines for clinical interpretation. In patients with unstable renal function, e.g. those with acute kidney inju ry, the eGFR may not accurately reflect actual GFR. Performed By: #### FT4, FERR , 55286-7, 6-3 ####[facility] LABCLIA [id number] [address] [address] [place] Glucose [Mass/Vol] 103 mg/dL High 74-99 [facility] Comment on above: Order Comment: Specimen Type : BLOOD SPECIMENOrdering Facility: [facility] Address: [address] [place], [place] [id number] Result Comment: The [place] Diabetes Association (ADA) provides guidance for cutoff values for fasting glucose and random glucose. The ADA defines fasting as no caloric intake for at least 8 hours. Fas ting plasma glucose results between 100 to 125 mg/dL indicate increased risk for diabetes (prediabetes). Fasting plasma glucose resul ts greater than or equal to 126 mg/dL meet the criteria for diagnosis of diabetes. In the absence of unequivocal hyperglycemia, results should be confirmed by repeat testing. In a patient with classic s ymptoms of hyperglycemia or hyperglycemic crisis, random plasma glucose results greater than or equal to 200 mg/dL meet the criteria for diagnosis of diabetes. Reference: Standards of [facility] in Diabetes 2016, [place] Diabetes Association. Diabetes Care. 2016.39(Suppl 1). Performed By: #### FT4, FERR , 63572-9, 6-3 ####[facility] LABCLIA [id number] [address] [address] [place] Potassium [Moles/Vol] 4.1 mmol/L Normal 3.7-5.1 [facility] Comment on above: Order Comment: Specimen Type : BLOOD SPECIMENOrdering Facility: [facility] Address: [address] [place], [place] [id number] Performed By: #### MARIELLA PAGE , 19225-9, 6-3 ####[facility] LABCLIA [id number] [place], [place] [address] [place] Protein [Mass/Vol] 6.9 g/dL Normal 6.3-8.0 [facility] Comment on above: Order Comment: Specimen Type : BLOOD SPECIMENOrdering Facility: [facility] Address: [address] [place], [place] [id number] Performed By: #### MARIELLA PAGE , 66686-4, 3015-3 ####[facility] LABCLIA [id number] [address] [place] [address] [place] Sodium [Moles/Vol] 139 mmol/L Normal 136-144 [facility] Comment on above: Order Comment: Specimen Type : BLOOD SPECIMENOrdering Facility: [facility] Address: [address] [place], [place] [id number] Performed By: #### MARIELLA PAGE , 83176-0, 3 ####[facility] LABCLIA [id number] [place], [place] [address] [place] Urea nitrogen [Mass/Vol] 12 mg/dL Normal 7-21 [facility] Comment on above: Order Comment: Specimen Type : BLOOD SPECIMENOrdering Facility: [facility] Address: [address] [place], [place] [id number] Performed By: #### MARIELLA PAGE , 30453-7, 6-3 ####[facility] LABCLIA [id number] [place], [place] [address] [place] Cortis SerPl-mCnc on 09-09-2021 Cortisol [Mass/Vol] 6.1 ug/dL Normal 4.8-19.5 [facility] Comment on above: Order Comment: Specimen Type : BLOOD SPECIMENOrdering Facility: [facility] Address: [address] [place] [address] Result Comment: Provided ref erence range is from 6-10 AM sample collection time. Cortisol Reference Range: 6- 10 AM = 4.8-19.5 ug/dL, 4-8 PM = 2.5-11.9 ug/dL Performed By: #### 2143-6 ## ##[facility] LABCLIA [id number] [place] [address] [place] [facility] FERRITIN BLD on 09-09-2021 Ferritin [Mass/Vol] 521.0 ng/mL High 14.7-205.1 [facility] Comment on above: Order Comment: Specimen Type : BLOOD SPECIMENOrdering Facility: [facility] Address: [address] [place] [address] Performed By: #### FT4, FERR , 06328-5, 3016-3 ####[facility] LABCLIA [id number] [place] [address] [place] HGB A1C on 09-09-2021 Average glucose Estimated from glycated 105 mg/dL Normal [facility] hemoglobin (Bld) [Mass/Vol] Comment on above: Order Comment: Specimen Type : BLOOD SPECIMENOrdering Facility: [facility] Address: [address] [place] [address] Result Comment: eAG: (Estima meredith average glucose) is a calculated value from HgbA1c and is rep resentative of the average blood glucose level in the last 2- 3 month period. Performed By: #### HBA1C ### #[facility] LABIA [id number] [place] [address] [place] HbA1c (Bld) [Mass fraction] 5.3 % Normal 4.3-5.6 [facility] Comment on above: Order Comment: Specimen Type : BLOOD SPECIMENOrdering Facility: [facility] Address: [address] [place] [address] Result Comment: [place] Ivette betes Association guidelines indicate that patients with HgbA1c in the range 5.7-6.4% are at increased risk for development of diab etes, and intervention by lifestyle modification may be benefici al. HgbA1c greater or equal to 6.5% is considered diagnostic of ivette betes. Performed By: #### HBA1C ### #[facility] LABCLIA [id number] [place] [id number] [place] [facility] T4 FREE/FREE THYROX on 09-09-2021 Free T4 [Mass/Vol] 1.1 ng/dL Normal 0.9-1.7 [facility] Comment on above: Order Comment: Specimen Type : BLOOD SPECIMENOrdering Facility: [facility] Address: [address] [place] [address] Performed By: #### FT4, FERR , 97019-6, 3016-3 ####[facility] LABCLIA [id number] [place] [address] [place] TSH [facility] on 09-09-2021 TSH Qn 0.382 m[IU]/L Normal 0.270-4.200 [facility] Comment on above: Order Comment: Specimen Type : BLOOD SPECIMENOrdering Facility: [facility] Address: [address] [place] [address] Performed By: #### FT4, FERR , 59582-3, 3016-3 ####[facility] LABIA [id number] [address] [place] VITAMIN D 25 HYDROXY on 09-09-2021 25-hydroxyvitamin D3 [Mass/Vol] 38.1 ng/mL Normal 31.0-80.0 [facility] Comment on above: Order Comment: Specimen Type : BLOOD SPECIMENOrdering Facility: [facility] Address: [address] [place], [place] [id number] Result Comment: Classificati on of 25 [place] Vitamin D status: Deficiency/Insufficiency: < or = 30 ng/ml. Sufficiency/Optimal Levels: 31-80 ng/mL Toxicity: > 100 ng/mL. Test performed by chemilumin escent immunoassay. Performed By: #### VITD #### [facility] LABCLIA [id number] [place] [address] [place] CNOV on 09-08-2021 CNOV Office Visit (CARDLUIS EDUARDO) Normal [facility] VIVIANA SANTANA ([id number]) 1955 [facility] Date Time Provider Department 09/08/21 3:00 PM YOVANI PIEDRA During your visit today, we recorded the following inf ormation about you: Pulse Blood pressure Weight Height 86/minute 102/58 82.4 kg 1.626 m Yovani Piedra DO 09/08/2021 3:26 PM Signed [facility] [place] Sanjiv Sprague Department of Cardiovascula r Medicine SECTION OF REGIONAL CARDIOLOGY 09/08/2021 SUHA: 04/01/21 Paxtondavid Santana is a 66 year old female with a history sh ortness of breath, palpitations and atrial fibrillation who is here today for follow up. HPI: She is doing well since last visit with no cardiac com plaints. She continues with pulmonary challenges and has O2, 3L ATC. She reports chronic dyspnea on exertion with mild efforts primarily related to her CILD. Denies chest pain, orthopnea, PND, palpitati ons, lightheadedness, dizziness, syncope, or edema. Patient denies any regul ar aerobic exercise. Prior history: 04/01/20 She has been doing well sin e last visit other than she was admitted in January 2020 with pneumonia and respiratory failure again. She did got to [facility] for pneumonia admit in January 2019: Preadmission evaluation: SOB and cough x 2 days. No fe kameron. had URI. Which facility: [facility] Dates of visit: !-02/02/19 Primary Diagnosis/es: MSSA, Serratia marcescans pneumonia Chronic hypoxic respiratory failure COPD Secondary: Chronic prednisone Hyperthyroidism ILD Multiple lung nodules CESAR Chronic atrial fibrillation Pre-diabetes RA Chronic immunosuppressant drug therapy Type 2 DM Testing done: resp cultures positive as above sensitive to levaquin 01/30/19 WBC 19.6 hgb 10.6 chems WNL except alb 2.7, g lob 5.2 02/01/19 WBC 13.1 hgb 8.8 RDW WNL. 01/30/19 ABG 7.48-31.8-70--23.7-95% Negative legionella, Atrep Pneum, Resp virus panel Treatment given/Hospital course: IV ATB, O2. Improved. D/C in stable condition with prednisone 40mg daily and levaquin 750mg x 1 week Current symptoms: improved. Finished antibiotics. Feel s back to baseline. Saw Dr. Sofia and started on Gabapentin 100mg TID At prior visit did not start Ivabradine due to cost. P tung assistance information was printed off for her at that visit. She did not send in the paperwork because she's had significant life stressors over the past month. Her son is in rehab for a drug a ddiction, and this has consumed the majority of her time. She was admitted [facility] in April with sepsis and pneumonia and acute respiratory failure requiring vent ilation. During her hospital admission she was noted to be in atrial fibri llation with rapid ventricular response. ?Her heart rate was contro lled with beta blockers. ?She denies any prior history of atrial fibrillation. ?She was found to have influenza as well. ?During h er hospitalization she was noted to have a very low TSH at 0.02 and elevated T4 with 1.74. ?Her thyroid sc an however was not conclusive for hypothyroidis m. ?She has known long-standing severe interstitial lung disease and bronchiectasis. ?She follows pulmonary at the [facility] now. ?There was a note that they increased her metoprolol to 50 twice a day of long acting in the hospital however she w as only taking 25 mg daily at this time. ?Her heart rate was 121 and s inus tachycardia. ?She is only able to walk a minimal amount in stores before s he is short of breath. ?She is on home oxygen therapy. ?She knows she did have a sensation ra pid heartbeat during atrial fibrillation and has not had that sensation sin ce. Patient was seen in the office on 05/06/2018 where she was noted to be significantly tachycardic in the 120's. She has a long -standing history of severe interstitial lung disease and bronchiectasis. S he was diagnosed with inappropriate sinus tachycardia, and has been maintain ed on Toprol-XL 50mg daily. She was started on Iv abradine 2.5mg BID for better rate control. She did not start this medication because it was $95 a month a nd she cannot afford this. PAST MEDICAL HISTORY Diagnosis Date - Anemia, unspecified - Asthma - Atrial fibrillation (HCC) 04/26/2017 - Cardiac disease 2020 pt does not know other than she has heart problems - Chronic bronchitis (HCC) - COPD (chronic obstructive pulmonary disease) (HCC) Chronic bronchitis by history. - COVID-19 vaccine series completed 07-27-2020 2nd dose Pfizer - Hyperglycemia 12/25/2016 - Hyperthyroidism 05/10/2017 Tatianna - Rheumatoid arthritis (HCC) Leflunomide. Dayanna Silva MD. 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 CNOV on 08-07-2021 CNOV Office Visit (PULMWS) Normal [facility] VIVIANA Simpson ([id number]) [address] [facility] Time Provider Department 08/07/21 2:30 PM JACQUELIN PATEL PULMWS During your visit today, we recorded the following inf ormation about you: Pulse Blood pressure Weight 93/minute 131/77 84.4 kg Jacquelin Patel PA-C 08/07/2021 3:01 PM Signed [facility] [place], 08/07/2021: Name: Viviana Santana : 1955 ? The patient is here today by herself. ? HPI: Viviana Santana is a 66 yo female with pmh signific ant for RA, A Fib on Xarelto, hyperthyroidism, bronchiectasis and COPD/asthma on princess e O2. Former smoker, quit 2010. 15 pack years. The patient is here for follow up of COPD. Since the last Pulmonary Clinic visit , the patient has not required ED care for exacerbation. There has been no hospital admission for exacerbation. Claims to be consistently co mpliant with prescribed maintenance Rx Duonebs four times daily with budesonide twice daily. Taking Mucinex twice daily. Daily cough, primarily in the morning. Seems to be wor se with seasonal allergies. Clear to [place] sputum. No hemoptysis. Frequent wheezing. No dyspnea at rest. Exertional dyspnea stable. It's t errible, but it hasn't gotten worse . No lower extremity edema. Currently wearing 3 LPM supplemental oxygen continuous ly. DME: [facility] PMH: Updated with patient today. FAMH: Updated with patient today. SOCH: Updated with patient today. IMMUNIZATIONS Prevnar - 03/02/2019 Pneumovax 23 - 01/19/2017, 03/10/2011 Influenza - 02/06/2021 COVID-19 - 04/04/2021, 07/27/2020, 07/06/2020 ROS: See HPI. Allergies were reviewed and updated, and medicat ions were reconciled with the patient. PHYSICAL EXAMINATION: BP 131/77 (BP Site: Right Arm, BP Position: Sitting, B P Cuff Size: Regular Adult) Pulse 93 Wt 84.4 kg (186 lb) SpO2 96% B DC 31.93 kg/m? Gen: No acute distress. Cooperative with examination. ENT: Oral hygeine and dentition good. Pharynx clear. N o halitosis. Resp: No stridor, accessory respiratory muscle use, stuart pra-sternal or intercostal retractions. No wheezes. Bibasilar crackle s bilaterally. CV: Regular rythm. Heart tones normal. Radial pulses n ormal. Abd: Non distended. MSK: No kyphoscoliosis. Ext: Warm and well perfused. No clubbing, cyanosis, ed regine. Skin: No rash, ecchymoses. Neuro: Mental status normal. Affect normal. No tremor. DATA REVIEW: DATE: 08/07/2021 07/03/2020 03/08/2020 11/07/1806/20/18 FVC 1.74, 57% 1.35, 44% 1.31,?42% 1.61, 49% 1.34, 40% 1.57, 48% FEV1 1.15, 48% 1.04, 43% 0.99,?40% 1.09, 43% 0.94, 37% 1.02, 40% FEV1/FVC 0.66 0.77 0.75 0.68 0.70 0.65 TLC xx xx xx ?xx xx xx DLCO 6.77 xx xx ?xx xx xx Six minute walk, 08/07/2021 Six Minute Walk Test for This Encounter ? Oxygen Device Liters FIO2 SpO2% HR Activity Feet Spe ed (MPH) Flag ? R/A 89 97 Resting ? NC 3 97 95 Resting ? NC 3 89 112 Six Minute Walk 515 1 ? NC 3 92 109 Recovery 1 minute post ? NC 3 98 94 Recovery 2 minute post ? NC 3 98 91 Recovery 3 minute post ? ASSESSMENT/PLAN: 1. Stage 3 severe COPD by GOLD classification (H CC) - ICD9: 496, ICD10: J44.9 (primary diagnosis) Symptomatically stable with increased FEV1 today. Continue current maintenance therapy with Duonebs four times daily and budesonide added twice daily (first and last treatment of the day). Up to date an annual influenza, pneumococcal and Covid vaccines. Continue with supplemental oxygen as directed. - BUDESONIDE 0.5 MG/2 ML SUSPENSION FOR NEBULIZATION - IPRATROPIUM 0.5 MG-ALBUTEROL 3 MG (2.5 MG BASE)/3 ML NEBULIZATION SOLN 2. Bronchiectasis without complication (HCC) - ICD9: 4 94.0, ICD10: J47.9 Continue Mucinex twice daily. 3. ILD (interstitial lung disease) (HCC) - ICD9: 515, ICD10: J84.9 4. Chronic respiratory failure with hypoxia (HCC) - IC D9: 518.83, 799.02, ICD10: J96.11 See #1. I addressed the questions of the patient, and patricia hernandez expressed understanding and acceptance of my answers. Jacquelin Patel PA-C Referring Provider: JACQUELIN PATEL [[id number]] Allergies As of Date: 08/07/2021 Noted Allergy Reactio n RAGWEED 03/10/2011 14 - Other: See Comments TREES 03/10/2011 14 - Other: See Comments Date Reviewed: 08/07/2021 Reviewed by: Jacquelin Patel PA-C - Fully Assessed Reason for Visit: Established Patient [175] COPD [27] Primary Visit Diagnosis:Stag e 3 severe COPD by GOLD classification ([facility]) [J44.9] Other Visit Diagnoses:Bronchiectasis without complicat ion ([facility]) [J47.9] ILD (interstitial lung disease) ([facility]) [J84.9] Chronic respiratory failure with hypoxia ([facility]) [J96.11 ] Order(s):budesonide (PULMICORT) 0.5 mg/2 mL nebulizer solutionUse 2 mL via nebulizer once daily. INHALE 2 ML BY NEBULIZER OVER 5- 15 MINUTES EVERY 12 HOURS.Disp: 60 VialRfl: 11 ipratropium-albuterol (DUONE B) 0.5 mg-3 mg(2.5 mg b (more content not included)... SIX MINUTE WALK on 08-07-2021 [facility] SPIROMETRY BASELINE ONLY on 08-07-2021 DLCO (ml/min/mmHg) 6.77 ml/min/mmHg [facility] DLCO/VA (ml/min/mmHg/L) 1.94 ml/min/mmHg/L [facility] JHS79-43% PRE (L/S) 0.63 L/S [facility] FEV1 PRE (L) 1.15 L [facility] FEV1/FVC PRE (%) 0.66 % [facility] FVC PRE (L) 1.74 L [facility] PEF PRE (L/S) 2.55 L/S [facility] ic VA (L) 3.49 L [facility] CNCO on 08-05-2021 CNCO Letter Text Normal [facility] CNPN on 08-01-2021 CNPN Telephone (FAMPWS) Normal [place] [facility] VIVIANA SANTANA ([id number]) 1955 [facility] Date Time Provider Department 08/01/21 Alexa BECERRA During your visit today, we recorded the following inf ormation about you: Brandy Odonnell ROBERTA 08/01/2021 2:19 PM Signed Patient calling said she is almost out o f the Prednisone 5 mg rx. She runs out on Wednesday and asking if she can have another rx? She d oes not have appt with Rheumatology until early September. Patient uses [facility] for her pharmacy. Patient said the prednisone does help with her pain. Please advise Sis Recinos APRN.MELISA 08/01/2021 2:33 PM Signed This will be patients sixth script for prednisone this year. Since I am not familiar with patient and Rufino (PCP) mike l be back on Wednesday, will defer to him if he want to continue, or lower the dosage some. Sis Recinos APRN.MELISA Romero LPN 08/01/2021 3:27 PM Signed TC to pt, notified of provider response. Routing to PCP to address when he returns to office Mo . Ismael Becerra PA-C 08/03/2021 5:23 PM Signed Let's try 2.5mg daily and see how she fares. The following approved medic ation requests have been transmitted electronically. Signed Prescriptions Disp Refills predniSONE (DELTASONE) 2.5 mg tablet 30 tablet 0 Sig: Take 1 tablet by mouth once daily. Authorizing Provider: Alexa BECERRA PA-C Brittany Haumesser Ma 08/04/2021 8:45 AM Signed Patient notified of results, verbalizes understanding of instructions. The following approved medic ation requests have been transmitted electronically. Signed Prescriptions Disp Refills predniSONE (DELTASONE) 2.5 mg tablet 30 tablet 0 Sig: Take 1 tablet by mouth once daily. Authorizing Provider: Alexa BECERRA Ma Allergies As of Date: 08/01/2021 Noted Allergy Reactio n RAGWEED 03/10/2011 14 - Other: See Comments TREES 03/10/2011 14 - Other: See Comments Date Reviewed: 06/23/2021 Reviewed by: Марина Nation Ma - Fully Assessed Reason for Visit: Medication Request [138] Order(s):predniSONE (DELTASONE) 2.5 mg tabletTake 1 ta blet by mouth once daily.Disp: 30 tabletRfl: 0 Prescriptions as of 08/04/2021 - predniSONE (DELTASONE) 2.5 mg tablet Take 1 tablet by mouth once daily. - predniSONE (DELTASONE) 5 mg tablet Take 1 tablet by mouth once daily. - metFORMIN ER (GLUCOPHAGE XR) 500 mg 24 hr tablet Take 1 tablet by mouth once daily. - leflunomide (ARAVA) 10 mg tablet Take 1 tablet by mouth once daily. - ergocalciferol 50,000 unit capsule (VITAMIN D2, DRIS DOL) Take 1 capsule by mouth one time a week. - ondansetron (ZOFRAN) 4 mg tablet Take 1 tablet by mouth every 6 hours as needed for bernabe sea/vomiting. - ferrous gluconate 324 mg (37.5 mg iron) tablet Take 1 tablet by mouth twice daily with meals. - gabapentin (NEURONTIN) 400 mg capsule Take 1 capsule by mouth three times daily for 180 days . - [facility] Portable oxygen concentrator 3l/min at all times. - gabapentin (NEURONTIN) 100 mg capsule Take 2 capsules by mouth twice daily for 180 days. - metoprolol succinate ER (TOPROL XL) 100 mg Take 1 tablet by mouth once daily. - omeprazole (PRILOSEC) 40 mg capsule Take 1 capsule by mouth once daily. - verapamil (CALAN, ISOPTIN) 80 mg tablet Take 0.5 tablets by mouth every 8 hours. - rivaroxaban (XARELTO) 20 mg tablet Take 1 tablet by mouth daily with dinner. - ipratropium-albuterol (DUONEB) 0.5 mg-3 mg(2.5 mg ba se)/3 mL nebu Inhale 3 mL as instructed four times daily. - budesonide (PULMICORT) 0.5 mg/2 mL nebulizer solutio n Use 2 mL via nebulizer once daily. INHALE 2 ML B Y NEBULIZER OVER 5-15 MINUTES EVERY 12 HOURS. - COMPOUNDED PRESCRIPTION Provide nebulizer accessory kit. DME: [facility]. - COMPOUNDED PRESCRIPTION Accessories for nebulizer J43.1 Panlobular emphysema ( HCC) (primary encounter diagnosis) J84.9 ILD (interstitial lung dise ase) (HCC) - COMPOUNDED PRESCRIPTION #1 Continuous Flow Stationary O2 Concentrator Sig: O2 2l/min liter flow Patient is to keep portablel concentrator as well J43. 2 Centrilobular emphysema (HCC) J84.9 ILD (interstitial lung disease) (HCC) J96.11 Chronic respiratory failure with hypoxia ([facility]) - COMPOUNDED PRESCRIPTION Face mask: hypoxia - COMPOUNDED PRESCRIPTION Portable oxygen concentrator, setting 2 at rest, setti ng 3 with ambulation. - COMPOUNDED PRESCRIPTION Evaluate patient for portable pulse dose O2 concentrat or. - COMPOUNDED PRESCRIPTION Portable oxygen concentrator. - acetaminophen (TYLENOL EXTRA STRENGTH) 500 mg tablet Take 1,000 mg by mouth every 6 hours as needed. Facility-Administered Medications as of 08/04/2021 - perflutren lipid microspheres 1.3 mL in NaCl (PF) 0. 9% 10 mL injection (DEFINITY) - sodium chloride 0.9 % (flush) 10 mL (BD POSIFLUSH) Problem List As Of Date 08/01/2021 Noted Resolved Aller (more content not included)... CNPN on 07-02-2021 CNPN Telephone (INTMWS) [facility] VIVIANA Simpson ([id number]) 1955 [facility] Date Time Provider Department 07/02/21 Alexa BECERRA INTMWS During your visit today, we recorded the following inf ormation about you: Loli Avelar LPN 07/02/2021 9:56 AM Signed Pt calling for refill. SUHA: 06/19/21 NOV: None scheduled Last Refill: 01/07/21 #90 1 refill Pt was seen 06/19/21 AND given prednisone for arth ritis pain. Pt states she was instructed to call back in 2 wks AND pcp will order a different medication. Pt states the prednisone was helpful, has 2 pills left. Please advise. Loli Avelar LPN Christina Krishna Pss 07/04/2021 10:45 AM Signed Patient wants to know why metformin was sent in for ar thritis pain. Please see message below and follow up with patient at [phone]. Jacquelin Alexa Gomez Pss 07/04/2021 3:24 PM Signed Patient calling back. Ismael Romero LPN 07/04/2021 3:28 PM Signed See original message regarding prednison e and pt update. Looks like pt was due for refill of metformin and that is why it was sent? P t was asking about prednisone though. Please advise. Ismael Becerra PA-C 07/04/2021 4:22 PM Signed I received Rx request to refill metformin which was du e. I just received message requesting additional predniso ne. I will start prednisone 5 mg daily The use of daily steroids is high, including diabetes, micky's syndrome, hypertension, stroke, major infection. Usually I would want an arthritis specia list to initiate or agree that this is the necessary treatment. I will discuss with Dr. Calderón. I will need feedback in next 2 weeks on improvement. The following approved medic ation requests have been transmitted electronically. Signed Prescriptions Disp Refills metFORMIN ER (GLUCOPHAGE XR) 500 mg 24 hr tablet 90 ta blet 1 Sig: Take 1 tablet by mouth once daily. UNIQUE: No Authorizing Provider: Alexa BECERRA predniSONE (DELTASONE) 5 mg tablet 30 tablet 0 Sig: Take 1 tablet by mouth once daily. Authorizing Provider: Alexa BECERRA PA-C M Gregory Barton, PA-C 07/04/2021 4:22 PM Signed Addended by: Alexa BECERRA on: 07/04/2021 04:22 PM Modules accepted: Orders Allergies As of Date: 07/02/2021 Noted Allergy Reactio n RAGWEED 03/10/2011 14 - Other: See Comments TREES 03/10/2011 14 - Other: See Comments Date Reviewed: 06/23/2021 Reviewed by: Марина Nation Ma - Fully Assessed Reason for Visit: Refill Request [94] Refill Request [94] Visit Diagnosis:Hyperglycemia [R73.9] Order(s):metFORMIN ER (GLUCOPHAGE XR) 500 mg 24 hr tab letTake 1 tablet by mouth once daily.Disp: 90 tabletRfl: 1 predniSONE (DELTASONE) 5 mg tabletTake 1 tablet by mayra th once daily.Disp: 30 tabletRfl: 0 Prescriptions as of 07/04/2021 - predniSONE (DELTASONE) 5 mg tablet Take 1 tablet by mouth once daily. - metFORMIN ER (GLUCOPHAGE XR) 500 mg 24 hr tablet Take 1 tablet by mouth once daily. - predniSONE (DELTASONE) 10 mg tablet Take 4 tabs daily x 3 days, then 3 tabs x 3 days, 2 ta bs x 3 days, then 1 tab x3 days with food. - leflunomide (ARAVA) 10 mg tablet Take 1 tablet by mouth once daily. - ergocalciferol 50,000 unit capsule (VITAMIN D2, DRIS DOL) Take 1 capsule by mouth one time a week. - ondansetron (ZOFRAN) 4 mg tablet Take 1 tablet by mouth every 6 hours as needed for bernabe sea/vomiting. - ferrous gluconate 324 mg (37.5 mg iron) tablet Take 1 tablet by mouth twice daily with meals. - gabapentin (NEURONTIN) 400 mg capsule Take 1 capsule by mouth three times daily for 180 days . - [facility] Portable oxygen concentrator 3l/min at all times. - gabapentin (NEURONTIN) 100 mg capsule Take 2 capsules by mouth twice daily for 180 days. - metoprolol succinate ER (TOPROL XL) 100 mg Take 1 tablet by mouth once daily. - omeprazole (PRILOSEC) 40 mg capsule Take 1 capsule by mouth once daily. - verapamil (CALAN, ISOPTIN) 80 mg tablet Take 0.5 tablets by mouth every 8 hours. - rivaroxaban (XARELTO) 20 mg tablet Take 1 tablet by mouth daily with dinner. - ipratropium-albuterol (DUONEB) 0.5 mg-3 mg(2.5 mg ba se)/3 mL nebu Inhale 3 mL as instructed four times daily. - budesonide (PULMICORT) 0.5 mg/2 mL nebulizer solutio n Use 2 mL via nebulizer once daily. INHALE 2 ML B Y NEBULIZER OVER 5-15 MINUTES EVERY 12 HOURS. - COMPOUNDED PRESCRIPTION Provide nebulizer accessory kit. DME: [employer]. - COMPOUNDED PRESCRIPTION Accessories for nebulizer J43.1 Panlobular emphysema ( HCC) (primary encounter diagnosis) J84.9 ILD (interstitial lung dise ase) ([facility]) - COMPOUNDED PRESCRIPTION #1 Continuous Flow Stationary O2 Concentrator Sig: O2 2l/min liter flow Patient is to keep portablel concentrator as well J43. 2 Centrilobular emphysema (HCC) J84.9 ILD (interstitial lung disease) ([facility]) J96.11 Chronic respiratory failure with hypoxia ([facility]) - COMPOUNDED PRESCRIPTION Face mask: hy (more content not included)... CNPN on 06-24-2021 CNPN Telephone (RHBATH) [facility] [address] VIVIANA Beverly ([id number]) 1955 F Medical Date Time Provider Department Center 06/24/21 ASIA CALDERÓN RHBATH During your visit today, we recorded the following inf ormation about you: Sayda Jimenez LPN 06/24/2021 11:08 AM Signed Patient left vm stating she wanted to give you an upda te on the Arava. I wanted to let you know it works, but not that great. Patient was evaluated by Pain Management and received a prescription for a steroid from her PCP on 06/23/2021. Sayda Jimenez LPN Allergies As of Date: 06/24/2021 Noted Allergy Reactio n RAGWEED 03/10/2011 14 - Other: See Comments TREES 03/10/2011 14 - Other: See Comments Date Reviewed: 06/23/2021 Reviewed by: Марина Nation Ma - Fully Assessed Reason for Visit: Patient Update [1234] Prescriptions as of 06/24/2021 - predniSONE (DELTASONE) 10 mg tablet Take 4 tabs daily x 3 days, then 3 tabs x 3 days, 2 ta bs x 3 days, then 1 tab x3 days with food. - predniSONE (DELTASONE) 20 mg tablet Take 2 tablets by mouth once daily for 5 days. - leflunomide (ARAVA) 10 mg tablet Take 1 tablet by mouth once daily. - ergocalciferol 50,000 unit capsule (VITAMIN D2, DRIS DOL) Take 1 capsule by mouth one time a week. - ondansetron (ZOFRAN) 4 mg tablet Take 1 tablet by mouth every 6 hours as needed for bernabe sea/vomiting. - ferrous gluconate 324 mg (37.5 mg iron) tablet Take 1 tablet by mouth twice daily with meals. - gabapentin (NEURONTIN) 400 mg capsule Take 1 capsule by mouth three times daily for 180 days . [facility] Portable oxygen concentrator 3l/min at all times. - gabapentin (NEURONTIN) 100 mg capsule Take 2 capsules by mouth twice daily for 180 days. - metFORMIN ER (GLUCOPHAGE XR) 500 mg 24 hr tablet Take 1 tablet by mouth once daily. - metoprolol succinate ER (TOPROL XL) 100 mg Take 1 tablet by mouth once daily. - omeprazole (PRILOSEC) 40 mg capsule Take 1 capsule by mouth once daily. - verapamil (CALAN, ISOPTIN) 80 mg tablet Take 0.5 tablets by mouth every 8 hours. - rivaroxaban (XARELTO) 20 mg tablet Take 1 tablet by mouth daily with dinner. - ipratropium-albuterol (DUONEB) 0.5 mg-3 mg(2.5 mg ba se)/3 mL nebu Inhale 3 mL as instructed four times daily. - budesonide (PULMICORT) 0.5 mg/2 mL nebulizer solutio n Use 2 mL via nebulizer once daily. INHALE 2 ML B Y NEBULIZER OVER 5-15 MINUTES EVERY 12 HOURS. - COMPOUNDED PRESCRIPTION Provide nebulizer accessory kit. DME: [employer]. - COMPOUNDED PRESCRIPTION Accessories for nebulizer J43.1 Panlobular emphysema ( HCC) (primary encounter diagnosis) J84.9 ILD (interstitial lung dise ase) (HCC) - COMPOUNDED PRESCRIPTION #1 Continuous Flow Stationary O2 Concentrator Sig: O2 2l/min liter flow Patient is to keep portablel concentrator as well J43. 2 Centrilobular emphysema (HCC) J84.9 ILD (interstitial lung disease) (HCC) J96.11 Chronic respiratory failure with hypoxia (HCC) - COMPOUNDED PRESCRIPTION Face mask: hypoxia - COMPOUNDED PRESCRIPTION Portable oxygen concentrator, setting 2 at rest, setti ng 3 with ambulation. - COMPOUNDED PRESCRIPTION Evaluate patient for portable pulse dose O2 concentrat or. - COMPOUNDED PRESCRIPTION Portable oxygen concentrator. - acetaminophen (TYLENOL EXTRA STRENGTH) 500 mg tablet Take 1,000 mg by mouth every 6 hours as needed. Facility-Administered Medications as of 06/24/2021 - perflutren lipid microspheres 1.3 mL in NaCl (PF) 0. 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] 05/19/2017 05/19/2017 Iatrogenic adrenal insufficiency (HCC) [E27.49] 2017 Chronic respiratory failure with hypoxia (HCC) *2017 Rheumatoid arthritis involving multiple sites w*2017 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*2017 Paroxysmal atrial fibrillation (HCC) [I48.0] 8 Hyperthyroidism [E05.90] 05/10/2017 Normocytic anemia [D64.9] 05/28/2017 Pre-diabetes [R73.03] 06/28/2017 Current chronic use of systemic steroids [Z79.5*2017 Type 2 diabetes mellitus without complication, *2017 Combined 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-related cataract of both *201701/06/2018 Regular astigmatism, bilateral [H52.223] 11/22/2017 Combined 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-related cataract of right*201701/06/2018 Combined 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-related cataract of left *201701/05/2018 Combined 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-related cataract, right e*201712/15/2017 Status post cataract extraction and insertion o*201707/28/2018 Combined form of age- (more content not included)... CNOV on 06-23-2021 CNOV Office Visit (PNMDNA) [facility] VIVIANA SANTANA ([id number]) 1955 [facility] Time Provider Department 06/23/21 10:30 AM JERAMIE BEGUM PNMENA During your visit today, we recorded the following inf ormation about you: Pulse Weight Height 91/minute 85.5 kg 1.626 m Jeramie Begum MD 06/23/2021 11:09 AM Signed [facility] Pain Management Department Date: June 23, 2021 - 10:22 AM Viviana Santana is seen in consultation requested by Alexa Becerra for an opinion regarding diffuse body pain. My final recommen dations will be communicated back to the requesting physician by way of shared medical record or via US mail. Chief Complaint: diffuse body pain SUBJECTIVE: Viviana Santana, is a 66 year old female wh o presents with diffuse body pain. The pain started years ago, with no known injury or trauma . The pain onset was gradual in nature. The patient states th at the current pain is persistent. Her pain is located in the diffu sely but mostly in the hands to wrist and bilateral ankle and feet. The pain is described as achy, burning, numbness, ting ling, and itchy. The pain intensity is rated 10. The pain is exacerbated by pain is constant and relieved by medications - oral steriods. Symptoms inte rfere with physical activity, work, walking, sleeping, sitting, bathing, d riving, cooking, household cleaning, reaching for shelves and lifting. Litigation: No. Worker's Compensation: No. Prior pain treatment has included physical therapy wit h partial relief, completed while admitted in hospital in August 2020. Medi cation: oral steroids with substantial relief, and tylenol, NSAIDS with no r elief. ALLERGIES Allergen Reactions - Ragweed Other: See Comments - Trees Other: See Comments Current Medications: Pain medications reviewed and reconciled in the medica tion list: Yes. Current Outpatient Medications Medication Sig - predniSONE (DELTASONE) 20 mg tablet Ta ke 2 tablets by mouth once daily for 5 days. - leflunomide (ARAVA) 10 mg tablet Take 1 tablet by mo uth once daily. - ergocalciferol 50,000 unit capsule (VITAMIN D2, DRIS DOL) Take 1 capsule by mouth one time a week. - ondansetron (ZOFRAN) 4 mg tablet Take 1 tablet by mo uth every 6 hours as needed for nausea/vomiting. - ferrous gluconate 324 mg (37.5 mg iron) tablet Take 1 tablet by mouth twice daily with meals. - gabapentin (NEURONTIN) 400 mg capsule Take 1 capsule by mouth three times daily for 180 days. (Patient taking diff erently: Take 400 mg by mouth daily at bedtime. ) - [facility] [employer] Portable oxygen concent rator 3l/min at all times. - gabapentin (NEURONTIN) 100 mg capsule Take 2 capsule s by mouth twice daily for 180 days. - metFORMIN ER (GLUCOPHAGE XR) 500 mg 24 hr tablet Take 1 tablet by mouth once daily. - metoprolol succinate ER (T OPROL XL) 100 mg Take 1 tablet by mouth once daily. - omeprazole (PRILOSEC) 40 mg capsule Take 1 capsule b y mouth once daily. - verapamil (CALAN, ISOPTIN) 80 mg tablet Take 0.5 tab lets by mouth every 8 hours. - rivaroxaban (XARELTO) 20 mg tablet Shelley e 1 tablet by mouth daily with dinner. - ipratropium-albuterol (DUO NEB) 0.5 mg-3 mg(2.5 mg base)/3 mL nebu Inhale 3 mL as instructed four times daily. - budesonide (PULMICORT) 0.5 mg/2 mL neb ulizer solution Use 2 mL via nebulizer once daily. INHALE 2 ML BY NEBULIZER OVER 5-15 MINUTES EVERY 12 HOURS. - COMPOUNDED PRESCRIPTION Provide nebulizer accessory kit. DME: [employer]. - COMPOUNDED PRESCRIPTION Accessories for nebulizer J43.1 Panlobular emphysema (HCC) (primary encounter di agnosis) J84.9 ILD (interstitial lung disease) (HCC) - COMPOUNDED PRESCRIPTION #1 Continuous Flow Stationar y O2 Concentrator Sig: O2 2l/min liter flow Patient is to keep portablel concentrator as well J43.2 Centrilobular emphysema (HCC) J84.9 ILD (interstitial lung disease) (HCC) J96.11 Chronic respiratory failure with hypoxia (HCC) - COMPOUNDED PRESCRIPTION Face mask: hypoxia - COMPOUNDED PRESCRIPTION Portable oxygen concentrator , setting 2 at rest, setting 3 with ambulation. (Patient taking differently : Portable oxygen concentrator, setting 2 at rest, setting 3 with ambula tion. Is now taking 3 liters continuously ) - COMPOUNDED PRESCRIPTION Evaluate patient for portabl e pulse dose O2 concentrator. - COMPOUNDED PRESCRIPTION Portable oxygen concentrator . - acetaminophen (TYLENOL EXTRA STRENGTH) 500 mg tablet Take 1,000 mg by mouth every 6 hours as needed. Current Facility-Administered Medications Medication Dose Route Frequency - perflutren lipid microspheres 1.3 mL in NaCl (PF) 0. 9% 10 mL injection (DEFINITY) INTRAVENOUS DIRECTED PRN - sodium chloride 0.9 % (flush) 10 mL (BD POSIFLUSH) 1 0 mL INTRAVENOUS DIRECTED PRN PAST MEDICAL HISTORY Diagnosis Date - Anemia, unspecified - Asthma - Atrial fibrillation (HCC) 04/26/2017 - Cardiac disease 2020 pt d (more content not included)... CNPN on 06-23-2021 MELISAN Telephone (FAMPWS) [facility] VIVIANA Simpson ([id number]) 1955 [facility] Date Time Provider Department 06/23/21 Alexa BECERRA During your visit today, we recorded the following inf ormation about you: Brandy Odonnell ROBERTA 06/23/2021 12:47 PM Signed Patient calling she had her appt with Dr Begum to day. She said Rufino Becerra can review what Dr Begum said. Patient is ask ing for prednisone rx to go to [facility] pharmacy. Please advise Alexa Becerra PA-C 06/23/2021 5:28 PM Signed I will taper over 12 days. We can't use prednisone with any frequency due to risk of side effects. We will have to consider other sources for pain. Let me know in 2 weeks how things are going. Thanks, ANDREA Almanza Ma 06/23/2021 5:35 PM Signed Patient made aware of provider message. Verbalized understanding. Allergies As of Date: 06/23/2021 Noted Allergy Reactio n RAGWEED 03/10/2011 14 - Other: See Comments TREES 03/10/2011 14 - Other: See Comments Date Reviewed: 06/23/2021 Reviewed by: Марина Nation Ma - Fully Assessed Reason for Visit: Medication Request [138] Order(s):predniSONE (DELTASONE) 10 mg ta bletTake 4 tabs daily x 3 days, then 3 tabs x 3 days, 2 tabs x 3 days, then 1 tab x3 days wit h food.Disp: 30 tabletRfl: 0 Prescriptions as of 06/23/2021 - predniSONE (DELTASONE) 10 mg tablet Take 4 tabs daily x 3 days, then 3 tabs x 3 days, 2 ta bs x 3 days, then 1 tab x3 days with food. - predniSONE (DELTASONE) 20 mg tablet Take 2 tablets by mouth once daily for 5 days. - leflunomide (ARAVA) 10 mg tablet Take 1 tablet by mouth once daily. - ergocalciferol 50,000 unit capsule (VITAMIN D2, DRIS DOL) Take 1 capsule by mouth one time a week. - ondansetron (ZOFRAN) 4 mg tablet Take 1 tablet by mouth every 6 hours as needed for bernabe sea/vomiting. - ferrous gluconate 324 mg (37.5 mg iron) tablet Take 1 tablet by mouth twice daily with meals. - gabapentin (NEURONTIN) 400 mg capsule Take 1 capsule by mouth three times daily for 180 days . - [facility] Portable oxygen concentrator 3l/min at all times. - gabapentin (NEURONTIN) 100 mg capsule Take 2 capsules by mouth twice daily for 180 days. - metFORMIN ER (GLUCOPHAGE XR) 500 mg 24 hr tablet Take 1 tablet by mouth once daily. - metoprolol succinate ER (TOPROL XL) 100 mg Take 1 tablet by mouth once daily. - omeprazole (PRILOSEC) 40 mg capsule Take 1 capsule by mouth once daily. - verapamil (CALAN, ISOPTIN) 80 mg tablet Take 0.5 tablets by mouth every 8 hours. - rivaroxaban (XARELTO) 20 mg tablet Take 1 tablet by mouth daily with dinner. - ipratropium-albuterol (DUONEB) 0.5 mg-3 mg(2.5 mg ba se)/3 mL nebu Inhale 3 mL as instructed four times daily. - budesonide (PULMICORT) 0.5 mg/2 mL nebulizer solutio n Use 2 mL via nebulizer once daily. INHALE 2 ML B Y NEBULIZER OVER 5-15 MINUTES EVERY 12 HOURS. - COMPOUNDED PRESCRIPTION Provide nebulizer accessory kit. DME: [employer]. - COMPOUNDED PRESCRIPTION Accessories for nebulizer J43.1 Panlobular emphysema ( HCC) (primary encounter diagnosis) J84.9 ILD (interstitial lung dise ase) ([facility]) - COMPOUNDED PRESCRIPTION #1 Continuous Flow Stationary O2 Concentrator Sig: O2 2l/min liter flow Patient is to keep portablel concentrator as well J43. 2 Centrilobular emphysema (HCC) J84.9 ILD (interstitial lung disease) ([facility]) J96.11 Chronic respiratory failure with hypoxia ([facility]) - COMPOUNDED PRESCRIPTION Face mask: hypoxia - COMPOUNDED PRESCRIPTION Portable oxygen concentrator, setting 2 at rest, setti ng 3 with ambulation. - COMPOUNDED PRESCRIPTION Evaluate patient for portable pulse dose O2 concentrat or. - COMPOUNDED PRESCRIPTION Portable oxygen concentrator. - acetaminophen (TYLENOL EXTRA STRENGTH) 500 mg tablet Take 1,000 mg by mouth every 6 hours as needed. Facility-Administered Medications as of 06/23/2021 - perflutren lipid microspheres 1.3 mL in NaCl (PF) 0. 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 CNOV on 06-19-2021 CNOV Office Visit (FAMPWS) [facility] VIVIANA Simpson ([id number]) 1955 [facility] Time Provider Department 06/19/21 3:00 PM Alexa BECERRA FAMPWS During your visit today, we recorded the following inf ormation about you: Pulse Respiration Blood pressure 87/minute 22/minute 126/64 M Adelina Becerra PA-C 06/19/2021 9:07 PM Signed 66 year old female with c/o pain in right knee over la st month. Prednisone helps. Rheum has repeated cautions of using prednisone but she cannot walk or do basic ADLs- has to help. Trying to reach rheum but not getting call back. Started Arava but hasn't noticed any difference. Was told to see pain management as most of pain believ ed to be OA. Neurontin has helped a tiny bit. Has appt with pain management Dr. Begum on Wednesday. 05/12/2021 single view right knee, C-spine, LS spine, b ilateral hands degenerative without evidence of inflammatory arthropa thy. Breathing is about the same. Continuous O2. Hasn't completed lung studies outstanding. Has not completed outstanding 02/20/22 [id number] orders. Hemoglobin A1C (%) Date Value 06/17/2020 6.1 02/12/2020 6.4 ) Component Latest Ref Rng AND Units 02/12/2020 2 WBC 3.70 - 11.00 k/uL 15.43 (H) RBC 3.90 - 5.20 m/uL 3.79 (L) Hemoglobin 11.5 - 15.5 g/dL 11.4 (L) Hematocrit 36.0 - 46.0 % 39.7 MCV 80.0 - 100.0 fL 104.7 (H) MCH 26.0 - 34.0 pg 30.1 MCHC 30.5 - 36.0 g/dL 28.7 (L) RDW-CV 11.5 - 15.0 % 13.7 Platelet Count 150 - 400 k/uL 381 MPV 9.0 - 12.7 fL 10.2 Neut% % 83.4 Abs Neut (ANC) 1.45 - 7.50 k/uL 12.87 (H) Lymph% % 9.4 Abs Lymph 1.00 - 4.00 k/uL 1.45 Washburn% % 3.8 Abs Washburn <0.87 k/uL 0.58 Eosin% % 2.0 Abs Eosin <0.46 k/uL 0.31 Baso% % 0.6 Abs Baso <0.11 k/uL 0.10 Immature Gran % % 0.8 IMMATURE GRANS (ABS) <0.10 k/uL 0.12 (H) NRBC 0.0 /100 WBC 0.0 Absolute nRBC <0.01 k/uL <0.01 DTYPE Auto Protein, Total 6.3 - 8.0 g/dL 6.0 (L) 6.5 Albumin 3.9 - 4.9 g/dL 3.5 (L) 3.7 (L) Calcium 8.5 - 10.2 mg/dL 9.0 8.9 Bilirubin, Total 0.2 - 1.3 mg/dL 0.4 0.2 Alkaline Phosphatase 34 - 123 U/L 72 98 AST 13 - 35 U/L 15 12 (L) Glucose 74 - 99 mg/dL 89 89 BUN 7 - 21 mg/dL 14 13 Creatinine 0.58 - 0.96 mg/dL 0.77 0.78 Sodium 136 - 144 mmol/L 139 142 Potassium 3.7 - 5.1 mmol/L 4.0 3.9 Chloride 97 - 105 mmol/L 102 105 CO2 22 - 30 mmol/L 24 27 Anion Gap 9 - 18 mmol/L 13 10 ALT 7 - 38 U/L 16 6 (L) eGFR- >60 >60 eGFR-All Other Races >60 >60 Vitamin D 25 Hydroxy 30.0 - 100.0 ng/mL 10.4 (L) HISTORIES FAMILY HISTORY Problem Relation Age of Onset - Ischemic Heart Disease Father - Cataract Father - other (COPD, smoker) Father - Cataract Mother - other (COPD, smoker) Mother - other (liver transplant) Sister Etiology of liver disease unknown to patient. - Heart Sister PAST MEDICAL HISTORY Diagnosis Date - Anemia, unspecified - Asthma - Atrial fibrillation (HCC) 04/26/2017 - Cardiac disease 2020 pt does not know other than she has heart problems - Chronic bronchitis (HCC) - COPD (chronic obstructive pulmonary disease) (HCC) Chronic bronchitis by history. - COVID-19 vaccine series completed 07-27-2020 2nd dose Pfizer - Hyperglycemia 12/25/2016 - Hyperthyroidism 05/10/2017 Tatianna - Rheumatoid arthritis (HCC) Leflunomide. Dayanna Silva MD. 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 Dayanna Richards MD PAST SURGICAL HISTORY Procedure Laterality Date - COLONOSCOPY FLX DX W/COLLJ SPEC WHEN PFRMD 0 Colonoscopy - ESOPHAGOGASTRODUODENOSCOPY TRANSORAL DIAGNOSTIC 09/18 EGD - LIG/TRNSXJ FLP TUBE ABDL/VAG APPR UNI/BI - XCAPSL CTRC RMVL INSJ IO LENS PROSTH W/O ECP Right 0 12/15/2017 Cataract Extraction with PC IOL - XCAPSL CTRC RMVL INSJ IO LENS PROSTH W/O ECP Left Cataract Extraction with PC IOL Social History Tobacco Use - Smoking status: Former Smoker Packs/day: 0.50 Years: 30.00 Pack years: 15.00 Start date: 01/01/1970 Quit date: 09/09/2010 Years since quittin.7 - Smokeless tobacco: Never Used Vaping Use - Vaping Use: Never used Substance Use Topics - Alcohol use: No - Drug use: No ACTIVE PROBLEM LIST Allergic Rhinitis Due to Pollen Chronic Rhinitis Centrilobular Emphysema (Hcc) Ild (Interstitial Lung Disease) (Hcc) Lung Nodule, Multiple Iatrogenic Adrenal Insufficiency (Hcc) Chronic Respiratory Failure With Hypoxia (Hcc) Rheumatoid Arthritis Involving Multiple Sites Wi th Positive Rheumatoid Factor (Hcc) Senior Care Current Use of Immunosuppressive Drug Paroxysmal Atrial Fibrillation (Hcc) Hyperthyroidism Normocytic Anemia Pre-Diabetes Current Chronic Use of Systemic Steroids Type 2 Diabetes Mellitus Wit hout Complication, Without Long-Term Current Use of Insulin (Hcc) Regular Astigmatism, Bilateral Vitreous Floaters of Both Eyes Pseudophakia of Both Eye (more content not included).. . CNPN on 06-18-2021 CNPN Telephone (FAMPWS) [facility] VIVIANA SANTANA ([id number]) 1955 [facility] Time Provider Department 06/18/21 Alexa BECERRA FAMJoseWS During your visit today, we recorded the following inf ormation about you: Loli Avelar LPN 06/18/2021 12:05 PM Signed Pt's sister Michelle calling to report leg pain has been worse over the last couple weeks. Has RA. Reports pt has been unable to get out of bed today, pt is crying with pain. Caller reports pt took 2 Tyl enol X strength AND is sleeping now. Michelle says pt is taking gabapentin but doesn't know how often, same wit h tylenol. Pt is scheduled to see pain management on 06/23/21 but states she needs to have something done before then. Please advise. Loli Avelar LPN Yunior Olivares MD 06/18/2021 12:26 PM Signed Rufino is out of the office. I have not seen her in four years. We are not allowed to call in meds etc legally. If she is t hat bad and cannot even walk, might need evaluated in ER. Either way, needs looked a t. Marli Serra LPN 06/18/2021 3:31 PM Signed Complains of joint pain in all joints. Using walker to get around now. Sonam 400mg three times a day and 200mg twice day. Scheduled for tomorrow to see Rufino in office. Allergies As of Date: 06/18/2021 Noted Allergy Reactio n RAGWEED 03/10/2011 14 - Other: See Comments TREES 03/10/2011 14 - Other: See Comments Date Reviewed: 04/01/2021 Reviewed by: Hailee Roque MA - Fully Assessed Reason for Visit: Leg Pain [1219] Cmt: Worse Prescriptions as of 06/18/2021 - leflunomide (ARAVA) 10 mg tablet Take 1 tablet by mouth once daily. - ergocalciferol 50,000 unit capsule (VITAMIN D2, DRIS DOL) Take 1 capsule by mouth one time a week. - ondansetron (ZOFRAN) 4 mg tablet Take 1 tablet by mouth every 6 hours as needed for bernabe sea/vomiting. - ferrous gluconate 324 mg (37.5 mg iron) tablet Take 1 tablet by mouth twice daily with meals. - gabapentin (NEURONTIN) 400 mg capsule Take 1 capsule by mouth three times daily for 180 days . - Miscellaneous Medical Supply Portable oxygen concentrator 3l/min at all times. - gabapentin (NEURONTIN) 100 mg capsule Take 2 capsules by mouth twice daily for 180 days. - metFORMIN ER (GLUCOPHAGE XR) 500 mg 24 hr tablet Take 1 tablet by mouth once daily. - metoprolol succinate ER (TOPROL XL) 100 mg Take 1 tablet by mouth once daily. - omeprazole (PRILOSEC) 40 mg capsule Take 1 capsule by mouth once daily. - verapamil (CALAN, ISOPTIN) 80 mg tablet Take 0.5 tablets by mouth every 8 hours. - rivaroxaban (XARELTO) 20 mg tablet Take 1 tablet by mouth daily with dinner. - ipratropium-albuterol (DUONEB) 0.5 mg-3 mg(2.5 mg ba se)/3 mL nebu Inhale 3 mL as instructed four times daily. - budesonide (PULMICORT) 0.5 mg/2 mL nebulizer solutio n Use 2 mL via nebulizer once daily. INHALE 2 ML B Y NEBULIZER OVER 5-15 MINUTES EVERY 12 HOURS. - COMPOUNDED PRESCRIPTION Provide nebulizer accessory kit. DME: [employer]. - COMPOUNDED PRESCRIPTION Accessories for nebulizer J43.1 Panlobular emphysema ( HCC) (primary encounter diagnosis) J84.9 ILD (interstitial lung dise ase) (HCC) - COMPOUNDED PRESCRIPTION #1 Continuous Flow Stationary O2 Concentrator Sig: O2 2l/min liter flow Patient is to keep portablel concentrator as well J43. 2 Centrilobular emphysema (HCC) J84.9 ILD (interstitial lung disease) (HCC) J96.11 Chronic respiratory failure with hypoxia (HCC) - COMPOUNDED PRESCRIPTION Face mask: hypoxia - COMPOUNDED PRESCRIPTION Portable oxygen concentrator, setting 2 at rest, setti ng 3 with ambulation. - COMPOUNDED PRESCRIPTION Evaluate patient for portable pulse dose O2 concentrat or. - COMPOUNDED PRESCRIPTION Portable oxygen concentrator. - acetaminophen (TYLENOL EXTRA STRENGTH) 500 mg tablet Take 1,000 mg by mouth every 6 hours as needed. Facility-Administered Medications as of 06/18/2021 - perflutren lipid microspheres 1.3 mL in NaCl (PF) 0. 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 BLOOD TB SCREEN, INCUBATED on 2 M. tuberculosis tuberculin stim Negative Normal NEGAT [facility] IFN-g Ql (Bld) Comment on above: Order Comment: Specimen Type : BLOOD SPECIMEN Performed By: #### INTPGP ## ##[facility] REFERENCE LABCLIA [id number] [address] [address] [place] MITOGEN MINUS NIL 4.06 Normal [facility] Comment on above: Order Comment: Specimen Type : BLOOD SPECIMEN Performed By: #### INTPGP ## ##[facility] REFERENCE LABCLIA [id number] [address] [address] [place] TB INTERPRETATION No evidence of current or Normal [facility] previous infection with Cent er Mycobacterium tuberculosis. Comment on above: Order Comment: Specimen Type : BLOOD SPECIMEN Performed By: #### INTPGP ## ##[facility] REFERENCE LABCLIA [id number] [address] [address] [place] TB NIL 0.07 IU/mL Normal [facility] Comment on above: Order Comment: Specimen Type : BLOOD SPECIMEN Performed By: #### INTPGP ## ##[facility] LAB REFERENCE LABCLIA [id number] [address] [address] [facility] AMER[place] TB1 AG MINUS NIL 0.00 IU/mL Normal <0.35 [facility] Comment on above: Order Comment: Specimen Type : BLOOD SPECIMEN Performed By: #### INTPGP ## ##[facility] REFERENCE LABCLIA [id number] [address] [address] [facility] [place] TB2 AG MINUS NIL 0.00 IU/mL Normal <0.35 [facility] Comment on above: Order Comment: Specimen Type : BLOOD SPECIMEN Performed By: #### INTPGP ## ##[facility] REFERENCE LABCLIA [id number] [address] [place] [id number] [facility] [place] CBC W Auto Differential panel (Bld) on 05-12-2021 Basophils (Bld) [#/Vol] 0.10 10*3/uL Normal <0.11 [facility] Comment on above: Order Comment: Specimen Type : BLOOD SPECIMEN Performed By: #### 42450-2 # ###[facility]ORATORYCLIA [id number] [place], [place] [address] [address] [place] Basophils/100 WBC (Bld) 0.6 % Normal [facility] Comment on above: Order Comment: Specimen Type : BLOOD SPECIMEN Performed By: #### 03852-1 # ###[facility]ORATORYCLIA [id number] [place] [address] [place] Differential cell count method Nom (Bld) Auto Normal [facility] Comment on above: Order Comment: Specimen Type : BLOOD SPECIMEN Performed By: #### 14929-7 # ###[facility]ATORYCLIA [id number] [place] [address] [place] Eosinophils (Bld) [#/Vol] 0.31 10*3/uL Normal <0.46 [facility] Comment on above: Order Comment: Specimen Type : BLOOD SPECIMEN Performed By: #### 20910-8 # ###[facility]ORYCLIA [id number] [place] [address] [facility] Eosinophils/100 WBC (Bld) 2.0 % Normal [facility] Comment on above: Order Comment: Specimen Type : BLOOD SPECIMEN Performed By: #### 16103-3 # ###[facility]ATORYCLIA [id number] [facility] [place] [address] [place] [address] [place] Erythrocyte distribution width 13.7 % Normal 11.5-15.0 [facility] (RBC) [Ratio] Comment on above: Order Comment: Specimen Type : BLOOD SPECIMEN Performed By: #### 62702-0 # ###[facility]ATORYCLIA [id number] [facility] [place] [address] [place] [address] OF [facility] Hematocrit (Bld) [Volume 39.7 % Normal 36.0-46.0 [facility] fraction] Comment on above: Order Comment: Specimen Type : BLOOD SPECIMEN Performed By: #### 02760-8 # ###[facility]ATORYCLIA [id number] [address] [address] [facility] Hemoglobin (Bld) [Mass/Vol] 11.4 g/dL Low 11.5-15.5 [facility] Comment on above: Order Comment: Specimen Type : BLOOD SPECIMEN Performed By: #### 55844-4 # ###[facility]ATORYCLIA [id number] [place] [address] [place] IMMATURE GRAN % 0.8 % Normal [facility] Comment on above: Order Comment: Specimen Type : BLOOD SPECIMEN Performed By: #### 67669-0 # ###[facility]ORYCLIA [id number] [place] [address] [facility] IMMATURE GRAN ABS 0.12 k/uL High <0.10 [facility] Comment on above: Order Comment: Specimen Type : BLOOD SPECIMEN Performed By: #### 94326-3 # ###[facility]ATORYCLIA [id number] [facility], [address] Lymphocytes (Bld) [#/Vol] 1.45 10*3/uL Normal 1.00-4.00 [facility] Comment on above: Order Comment: Specimen Type : BLOOD SPECIMEN Performed By: #### 58589-7 # ###[facility]ATORYCLIA [id number] [facility] [place] [address] Lymphocytes/100 WBC (Bld) 9.4 % Normal [facility] Comment on above: Order Comment: Specimen Type : BLOOD SPECIMEN Performed By: #### 02885-9 # ###[facility]ATORYCLIA [id number] [facility] [place], [address] MCH (RBC) [Entitic mass] 30.1 pg Normal 26.0-34.0 [facility] Comment on above: Order Comment: Specimen Type : BLOOD SPECIMEN Performed By: #### 24643-2 # ###[facility]ATORYCLIA [id number] [facility] [address] MCHC (RBC) [Mass/Vol] 28.7 g/dL Low 30.5-36.0 [facility] Comment on above: Order Comment: Specimen Type : BLOOD SPECIMEN Performed By: #### 85914-9 # ###[facility]ORATORYCLIA [id number] [facility] [address] OF [facility] MCV (RBC) [Entitic vol] 104.7 fL High 80.0-100.0 [facility] Comment on above: Order Comment: Specimen Type : BLOOD SPECIMEN Performed By: #### 25260-6 # ###[facility]ORATORYCLIA [id number] [facility] [address] Monocytes (Bld) [#/Vol] 0.58 10*3/uL Normal <0.87 [facility] Comment on above: Order Comment: Specimen Type : BLOOD SPECIMEN Performed By: #### 27034-3 # ###[facility]ORATORYCLIA [id number] [facility] [address] Monocytes/100 WBC (Bld) 3.8 % Normal [facility] Comment on above: Order Comment: Specimen Type : BLOOD SPECIMEN Performed By: #### 07617-1 # ###[facility]ORYCLIA [id number] [place] [address] [facility] Neutrophils (Bld) [#/Vol] 12.87 10*3/uL High 1.45-7.50 [facility] Comment on above: Order Comment: Specimen Type : BLOOD SPECIMEN Performed By: #### 25811-5 # ###[facility]ORATORYCLIA [id number] [place] [address] [facility] Neutrophils/100 WBC (Bld) 83.4 % Normal [facility] Comment on above: Order Comment: Specimen Type : BLOOD SPECIMEN Performed By: #### 15542-5 # ###[facility]ATORYCLIA [id number] [facility] [place] [address] [address] Nucleated RBC (Bld) [#/Vol] 10*3/uL Normal <0.01 [facility] Comment on above: Order Comment: Specimen Type : BLOOD SPECIMEN Performed By: #### 06637-9 # ###[facility]ORYCLIA [id number] [facility] [place] [address] [place] [address] OF [facility] Nucleated RBC/100 WBC (Bld) 0.0 /100 WBC Normal 0.0 [facility] [Ratio] Comment on above: Order Comment: Specimen Type : BLOOD SPECIMEN Performed By: #### 73682-7 # ###[facility]ORATORYCLIA [id number] [place] [address] [facility] Platelet mean volume (Bld) 10.2 fL Normal 9.0-12.7 [facility] [Entitic vol] Comment on above: Order Comment: Specimen Type : BLOOD SPECIMEN Performed By: #### 32164-0 # ###[facility]ATORYCLIA [id number] [place] [address] [facility] [place] Platelets (Bld) [#/Vol] 381 10*3/uL Normal 150-400 [facility] Comment on above: Order Comment: Specimen Type : BLOOD SPECIMEN Performed By: #### 42178-7 # ###[facility] LABORATORYCLIA [id number] [place], [place] [address] [address] RBC (Bld) [#/Vol] 3.79 10*6/uL Low 3.90-5.20 [facility] Comment on above: Order Comment: Specimen Type : BLOOD SPECIMEN Performed By: #### 60238-4 # ###[facility] LABORATORYCLIA [id number] [place], [place] [address] [address] WBC (Bld) [#/Vol] 15.43 10*3/uL High 3.70-11.00 [facility] Comment on above: Order Comment: Specimen Type : BLOOD SPECIMEN Performed By: #### 38917-0 # ###[facility] LABORATORYCLIA [id number] [address] CCP ANTIBODY IGG on 05-12-2021 Cyclic citrullinated peptide IgG Qn >250 High <20 [facility] Comment on above: Order Comment: Specimen Type : BLOOD SPECIMEN Result Comment: < 20 units: Negative 20-39 units: Weak Positive 40-59 units: Moderate Positi ve > 60 units: Strong Positive The following results were o btained with the [employer] QUANT[employer] Lite CCP3 IgG HELIO. Anti-CCP values obtained with different manufacturers' assay methods may not be used interchangeably. The magnitude of the reported IgG levels cannot b e correlated to an endpoint titer. Performed By: #### CCP, RF # ###[facility] LAB REFERENCE LABCLIA [id number] [address] [id number] [address] [place] OF [facility] Comprehensive metabolic 2000 panel on 05-12-2021 Albumin [Mass/Vol] 3.7 g/dL Low 3.9-4.9 [facility] Comment on above: Order Comment: Specimen Type : BLOOD SPECIMEN Performed By: #### 30530-6 # ###[facility] LABORATORYCLIA [id number] [place] [address] [facility] [place] ALP [Catalytic activity/Vol] 98 U/L Normal 34-123 [facility] Comment on above: Order Comment: Specimen Type : BLOOD SPECIMEN Performed By: #### 63628-4 # ###[facility]ORATORYCLIA [id number] [place] [address] [facility] ALT With P-5'-P [Catalytic activity/Vol] 6 U/L Low 7-38 [facility] Comment on above: Order Comment: Specimen Type : BLOOD SPECIMEN Performed By: #### 14176-4 # ###[facility]ORATORYCLIA [id number] [place] [address] [facility] Anion gap [Moles/Vol] 10 mmol/L Normal 9-18 [facility] Comment on above: Order Comment: Specimen Type : BLOOD SPECIMEN Performed By: #### 45138-5 # ###[facility]ORYCLIA [id number] [place] [address] [facility] AST With P-5'-P [Catalytic 12 U/L Low 13-35 [facility] activity/Vol] Comment on above: Order Comment: Specimen Type : BLOOD SPECIMEN Performed By: #### 38314-1 # ###[facility]ORYCLIA [id number] [place] [address] [place] Bilirubin [Mass/Vol] 0.2 mg/dL Normal 0.2-1.3 [facility] Comment on above: Order Comment: Specimen Type : BLOOD SPECIMEN Performed By: #### 66442-8 # ###[facility]ORYCLIA [id number] [place] [address] [place] Calcium [Mass/Vol] 8.9 mg/dL Normal 8.5-10.2 [facility] Comment on above: Order Comment: Specimen Type : BLOOD SPECIMEN Performed By: #### 62763-5 # ###[facility]ORATORYCLIA [id number] [place] [address] [place] Chloride [Moles/Vol] 105 mmol/L Normal 97-105 [facility] Comment on above: Order Comment: Specimen Type : BLOOD SPECIMEN Performed By: #### 20328-1 # ###[facility] LABORATORYCLIA [id number] [facility], [place] [address] [place] [address] OF [facility] CO2 [Moles/Vol] 27 mmol/L Normal 22-30 [facility] Comment on above: Order Comment: Specimen Type : BLOOD SPECIMEN Performed By: #### 29573-9 # ###[facility] LABORATORYCLIA [id number] [place], [place] [address] [address] STATES [facility] Creatinine [Mass/Vol] 0.78 mg/dL Normal 0.58-0.96 [facility] Comment on above: Order Comment: Specimen Type : BLOOD SPECIMEN Performed By: #### 93306-9 # ###[facility] LABORATORYCLIA [id number] [address] STATES OF [facility] GFR/1.73 sq M.predicted MDRD mL/min/{1.73_m2} Normal [facility] (S/P/Bld) [Vol rate/Area] Ce nter Comment on above: Order Comment: Specimen Type : BLOOD SPECIMEN Result Comment: >60 eGFR (Estimated GFR) Units o f measure: mL/min/1.73 meters squared eGFR is derived from the ree xpressed MDRD Study equation using the following parameters: serum creatinine, age, gender and race. The creatinine assay has been calibrated to be traceable to [employer]. An eGFR <60 mL/min/1.73m2 for >3 mo nths is consistent with chronic kidney disease. Refer to KDOQI guidelines for clinical interpretation. In patients with unstable renal function, e.g. those with acute k idney injury, the eGFR may n ot accurately reflect actual GFR. Performed By: #### 66022-8 # ###[facility] LABORATORYCLIA [id number] [facility], [place] [address] [place] [address] [place] Glucose [Mass/Vol] 89 mg/dL Normal 74-99 [facility] Comment on above: Order Comment: Specimen Type : BLOOD SPECIMEN Result Comment: The [place] Diabetes Association (ADA) provides guidance for cutoff values for fasting glucose and random glucose. The ADA defines fasting as no caloric intake for at least 8 hours. Fas ting plasma glucose results between 100 to 125 mg/dL indicate increased risk for diabetes (prediabetes). Fasting plasma glucose resul ts greater than or equal to 126 mg/dL meet the criteria for diagnosis of diabetes. In the absence of unequivocal hyperglycemia, results should be confirmed by repeat testing. In a patient with classic s ymptoms of hyperglycemia or hyperglycemic crisis, random plasma glucose results greater than or equal to 200 mg/dL meet the criteria for diagnosis of diabetes. Reference: Standards of [place] in Diabetes 2016, [place] Diabetes Association. Diabetes Care. 2016.39(Suppl 1). Performed By: #### 96181-6 # ###[facility] LABORATORYCLIA [id number] [address] [place] [address] [place] Potassium [Moles/Vol] 3.9 mmol/L Normal 3.7-5.1 [facility] Comment on above: Order Comment: Specimen Type : BLOOD SPECIMEN Performed By: #### 02355-4 # ###[facility] LABORATORYCLIA [id number] [address] [address] [place] Protein [Mass/Vol] 6.5 g/dL Normal 6.3-8.0 [facility] Comment on above: Order Comment: Specimen Type : BLOOD SPECIMEN Performed By: #### 06310-0 # ###[facility] LABORATORYCLIA [id number] [place] [address] [place] Sodium [Moles/Vol] 142 mmol/L Normal 136-144 [facility] Comment on above: Order Comment: Specimen Type : BLOOD SPECIMEN Performed By: #### 19935-9 # ###[facility] LABORATORYCLIA [id number] [place] [address] [place] Urea nitrogen [Mass/Vol] 13 mg/dL Normal 7-21 [facility] Comment on above: Order Comment: Specimen Type : BLOOD SPECIMEN Performed By: #### 60981-9 # ###[facility]ATORYCLIA [id number] [place] [address] [place] HBV surface Ab IA Ql (S) on 05-12-2021 HBV surface Ag Ql (S) Negative Normal Negative [facility] Comment on above: Order Comment: Specimen Type : BLOOD SPECIMEN Performed By: #### 18519-2 # ###[facility] LABORATORYCLIA [id number] [place] [address] [facility] [place] HBV surface Ab Ser-aCnc on 05-12-2021 HBV surface Ab Qn (S) <3.10 Normal <10.00 [facility] Comment on above: Order Comment: Specimen Type : BLOOD SPECIMEN Result Comment: Patient is c onsidered not to have protective immunity to HBV infection. Performed By: #### 84405-5 # ###[facility] LABORATORYCLIA [id number] [place] [address] [facility] HCV Ab Ser Ql on 05-12-2021 HCV Ab Ql (S) Negative Normal Negative [facility] Comment on above: Order Comment: Specimen Type : BLOOD SPECIMEN Performed By: #### 39067-9 # ###[facility] LABORATORYCLIA [id number] [place] [address] [facility] HEP B CORE AB TOTAL on 05-12-2021 HBV core Ab Ql (S) Negative Normal NEGAT [facility] Comment on above: Order Comment: Specimen Type : BLOOD SPECIMEN Performed By: #### AHBCOT ## ##[facility] LAB REFERENCE LABCLIA [id number] [address] [address] [facility] RHEUMATOID FACTOR BL on 05-12-2021 Rheumatoid factor Qn 441 [IU]/mL High <16 [facility] Comment on above: Order Comment: Specimen Type : BLOOD SPECIMEN Performed By: #### CCP, RF # ###[facility] REFERENCE LABCLIA [id number] [address] [address] [facility] VITAMIN D 25 HYDROXY on 05-12-2021 25-hydroxyvitamin D3 [Mass/Vol] 10.4 ng/mL Low 30.0-100. 0 [facility] Comment on above: Order Comment: Specimen Type : BLOOD SPECIMEN Result Comment: Classificati on of 25 [place] Vitamin D status: Deficiency: < 20 ng/ml. Insufficientcy: 20-30 ng/ml. Sufficiency: 30-100 ng/ml. Performed By: #### VITD #### [facility] LABORATORYCLIA [id number] [facility] [place] [address] [facility] XR CERVICAL 2V AP/LAT on 05-12-2021 XR CERVICAL 2V AP/LAT * * *Final Report* * * Normal [facility] DATE OF EXAM: May 12 2021 12:30PM [facility] AWX [id number] - XR CERVICAL 2V AP/LAT / 22 PROCEDURE REASON: Pain in joint, multiple sites * * * * Physician Interpretation * * * * EXAMINATION: XR SI JTS 2V AP PELV/HOFFMAN, XR LUMBAR 2V AP/LAT, XR KNEE SURVEY 1V AP RYAN, XR CERVICAL 2V AP/LAT, XR FOOT 3V AP/LAT/OBL LT, XR FOOT 3V AP/LAT/OBL RT, XR HAND 3V PA/LAT/OBL LT, XR HAND 3V PA/LAT/OBL RT CLINICAL HISTORY: F/U rheumatoid arthritis, c/o joint pain. Hx COPD. Pain in joint, multiple sites Technique: XR SI JTS 2V AP PELV/HOFFMAN, XR LUMBAR 2V AP/LAT, XR KNEE SURVEY 1V AP RYAN, XR CERVICAL 2V AP/LAT, XR FOOT 3V AP /LAT/OBL LT, XR FOOT 3V AP/LAT/OBL RT, XR HAND 3V PA/LAT/OBL LT, XR FOURNIER ND 3V PA/LAT/OBL RT -- NOT APPLICABLE (accession [id number]), NOT APPLICABL E (accession [id number]), BILATERAL (accession [id number]), NOT APPLI CABLE (accession [id number]) with 2 (accession [id number]), 2 (accession [id number]), 1 (accession [id number]), 2 (accession [id number]) views o n 2 (accession [id number]), 2 (accession [id number]), 1 (accession [id number]), 2 (accession [id number]) images Comparison: None RESULT: Cervical spine: Counting reference: Craniocervical lowell ction. Anatomic Variants: None.. Mild multilevel degenerative disc floridalma nges with narrowing and endplate osteophytes. Mild to moderate f acet and uncovertebral arthropathy. No erosions or syndesmophyt es. No fracture or compression defect. Prevertebral soft tissues are u nremarkable. Coarse reticular opacities partially visualized in the lung apices probably due to chronic interstitial lung changes. Hands: No fracture or dislocation. Distal radii and ul na are intact bilaterally. Severe left and moderate right radius sca phoid degenerative changes with narrowing, early subchondral sclerosis, c ystic changes and small osteophytes. Carpal rows are maintained bilatera lly. No erosions or chondrocalcinosis in bilateral wrists. Severe left and moderate right first CMC degenerative changes with narrowing, subchon dral sclerosis and small osteophytes. Suspect volar subluxation of the ri ght MCP joint. Scattered degenerative changes in the MCP, DIP and PIP joints with tiny marginal osteophytes and cysts. No discrete erosions. No focal soft tissue swelling. Lumbar spine: Counting reference: Lumbosacral junction . For the purposes of this report, L4-5 is considered the level of the iliac crest and assume there are 5 lumbar-type vertebrae. Anatomic variant: None. Straightening of normal lumbar lordosis. Mild multilev el degenerative disc changes with narrowing and endplate osteophytes; moderate degenerative disc changes L5-S1 with endplate sclerosi s and osteophytes. Facet arthropathy in the lower lumbar spine with up to moderate foraminal encroachment at L5-S1. No pars or compression defect. No erosions or syndesmophytes. Atherosclerotic calcification abdomina l aorta. SI joints: SI joints are maintained with no ankylosis, sclerosis or erosions. No fracture or dislocation. Intact pubic sym physis. Degenerative changes in the lower lumbar spine. Knees: No fracture or dislocation. Minimal medial comp artment degenerative changes with narrowing and minimal osteop hytes. No erosions or chondrocalcinosis. No focal soft tissue swelling se en on radiograph. Feet: No fracture or dislocation. Mild to moderate ryan ateral hallux valgus. No erosions. Digital contractures 2-5. No foca l soft tissue swelling seen on radiograph. IMPRESSION: Degenerative changes in the cervical spine as describe d without acute osseous findings. No evidence of inflammatory arthropa thy. Degenerative changes bilateral hands predominantly in the wrists. No evidence of inflammatory arthropathy. Degenerative changes in the lumbar spine as described without acute osseous findings. No evidence of inflammatory arthropa thy. No acute osseous findings SI joints. No evidence of in flammatory no significant degenerative arthropathy. No acute osseous findings bilateral knees. Minimal ost eoarthritis bilaterally. No evidence of inflammatory arthropathy. No acute osseous findings bilateral feet. No evidence of inflammatory arthropathy. Hallux valgus and digital contractures bi laterally. Passenger Brakeman: [facility] Transcribe Date/Time: May 12 2021 1:57P Dictated by : GLO PERES MD This examination was interpreted and the report review ed and electronically signed by: GLO PERES MD on May 12 2021 2:06PM EST [id number] XR FOOT 3V AP/LAT/OBL LT on 05-12-2021 XR FOOT 3V AP/LAT/OBL * * *Final Report* * * [facility] DATE OF EXAM: May 12 2021 12:30PM [facility] AWX 5336 - XR FOOT 3V AP/LAT/OBL LT / [id number] PROCEDURE REASON: Pain in joint, multiple sites * * * * Physician Interpretation * * * * EXAMINATION: XR SI JTS 2V AP PELV/HOFFMAN, XR LUMBAR 2V AP/LAT, XR KNEE SURVEY 1V AP RYAN, XR CERVICAL 2V AP/LAT, XR FOOT 3V AP/LAT/OBL LT, XR FOOT 3V AP/LAT/OBL RT, XR HAND 3V PA/LAT/OBL LT, XR HAND 3V PA/LAT/OBL RT CLINICAL HISTORY: F/U rheumatoid arthritis, c/o joint pain. Hx COPD. Pain in joint, multiple sites Technique: XR SI JTS 2V AP PELV/HOFFMAN, XR LUMBAR 2V AP/LAT, XR KNEE SURVEY 1V AP RYAN, XR CERVICAL 2V AP/LAT, XR FOOT 3V AP /LAT/OBL LT, XR FOOT 3V AP/LAT/OBL RT, XR HAND 3V PA/LAT/OBL LT, XR FOURNIER ND 3V PA/LAT/OBL RT -- NOT APPLICABLE (accession [id number]), NOT APPLICABL E (accession [id number]), BILATERAL (accession [id number]), NOT APPLI CABLE (accession [id number]) with 2 (accession [id number]), 2 (accession [id number]), 1 (accession [id number]), 2 (accession [id number]) views o n 2 (accession [id number]), 2 (accession [id number]), 1 (accession [id number]), 2 (accession [id number]) images Comparison: None RESULT: Cervical spine: Counting reference: Craniocervical lowell ction. Anatomic Variants: None.. Mild multilevel degenerative disc floridalma nges with narrowing and endplate osteophytes. Mild to moderate f acet and uncovertebral arthropathy. No erosions or syndesmophyt es. No fracture or compression defect. Prevertebral soft tissues are u nremarkable. Coarse reticular opacities partially visualized in the lung apices probably due to chronic interstitial lung changes. Hands: No fracture or dislocation. Distal radii and ul na are intact bilaterally. Severe left and moderate right radius sca phoid degenerative changes with narrowing, early subchondral sclerosis, c ystic changes and small osteophytes. Carpal rows are maintained bilatera lly. No erosions or chondrocalcinosis in bilateral wrists. Severe left and moderate right first CMC degenerative changes with narrowing, subchon dral sclerosis and small osteophytes. Suspect volar subluxation of the ri ght MCP joint. Scattered degenerative changes in the MCP, DIP and PIP joints with tiny marginal osteophytes and cysts. No discrete erosions. No focal soft tissue swelling. Lumbar spine: Counting reference: Lumbosacral junction . For the purposes of this report, L4-5 is considered the level of the iliac crest and assume there are 5 lumbar-type vertebrae. Anatomic variant: None. Straightening of normal lumbar lordosis. Mild multilev el degenerative disc changes with narrowing and endplate osteophytes; moderate degenerative disc changes L5-S1 with endplate sclerosi s and osteophytes. Facet arthropathy in the lower lumbar spine with up to moderate foraminal encroachment at L5-S1. No pars or compression defect. No erosions or syndesmophytes. Atherosclerotic calcification abdomina l aorta. SI joints: SI joints are maintained with no ankylosis, sclerosis or erosions. No fracture or dislocation. Intact pubic sym physis. Degenerative changes in the lower lumbar spine. Knees: No fracture or dislocation. Minimal medial comp artment degenerative changes with narrowing and minimal osteop hytes. No erosions or chondrocalcinosis. No focal soft tissue swelling se en on radiograph. Feet: No fracture or dislocation. Mild to moderate ryan ateral hallux valgus. No erosions. Digital contractures 2-5. No foca l soft tissue swelling seen on radiograph. IMPRESSION: Degenerative changes in the cervical spine as describe d without acute osseous findings. No evidence of inflammatory arthropa thy. Degenerative changes bilateral hands predominantly in the wrists. No evidence of inflammatory arthropathy. Degenerative changes in the lumbar spine as described without acute osseous findings. No evidence of inflammatory arthropa thy. No acute osseous findings SI joints. No evidence of in flammatory no significant degenerative arthropathy. No acute osseous findings bilateral knees. Minimal ost eoarthritis bilaterally. No evidence of inflammatory arthropathy. No acute osseous findings bilateral feet. No evidence of inflammatory arthropathy. Hallux valgus and digital contractures bi laterally. Passenger Brakeman: [facility] Transcribe Date/Time: May 12 2021 1:57P Dictated by : GLO PERES MD This examination was interpreted and the report review ed and electronically signed by: GLO PERES MD on May 12 2021 2:06PM EST [id number] XR FOOT 3V AP/LAT/OBL RT on 05-12-2021 XR FOOT 3V AP/LAT/OBL * * *Final Report* * * [facility] DATE OF EXAM: May 12 2021 12:30PM [facility] AWX 5337 - XR FOOT 3V AP/LAT/OBL RT / [id number] PROCEDURE REASON: Pain in joint, multiple sites * * * * Physician Interpretation * * * * EXAMINATION: XR SI JTS 2V AP PELV/HOFFMAN, XR LUMBAR 2V AP/LAT, XR KNEE SURVEY 1V AP RYAN, XR CERVICAL 2V AP/LAT, XR FOOT 3V AP/LAT/OBL LT, XR FOOT 3V AP/LAT/OBL RT, XR HAND 3V PA/LAT/OBL LT, XR HAND 3V PA/LAT/OBL RT CLINICAL HISTORY: F/U rheumatoid arthritis, c/o joint pain. Hx COPD. Pain in joint, multiple sites Technique: XR SI JTS 2V AP PELV/HOFFMAN, XR LUMBAR 2V AP/LAT, XR KNEE SURVEY 1V AP RYAN, XR CERVICAL 2V AP/LAT, XR FOOT 3V AP /LAT/OBL LT, XR FOOT 3V AP/LAT/OBL RT, XR HAND 3V PA/LAT/OBL LT, XR FOURNIER ND 3V PA/LAT/OBL RT -- NOT APPLICABLE (accession [id number]), NOT APPLICABL E (accession [id number]), BILATERAL (accession [id number]), NOT APPLI CABLE (accession [id number]) with 2 (accession [id number]), 2 (accession [id number]), 1 (accession [id number]), 2 (accession [id number]) views o n 2 (accession [id number]), 2 (accession [id number]), 1 (accession [id number]), 2 (accession [id number]) images Comparison: None RESULT: Cervical spine: Counting reference: Craniocervical lowell ction. Anatomic Variants: None.. Mild multilevel degenerative disc floridalma nges with narrowing and endplate osteophytes. Mild to moderate f acet and uncovertebral arthropathy. No erosions or syndesmophyt es. No fracture or compression defect. Prevertebral soft tissues are u nremarkable. Coarse reticular opacities partially visualized in the lung apices probably due to chronic interstitial lung changes. Hands: No fracture or dislocation. Distal radii and ul na are intact bilaterally. Severe left and moderate right radius sca phoid degenerative changes with narrowing, early subchondral sclerosis, c ystic changes and small osteophytes. Carpal rows are maintained bilatera lly. No erosions or chondrocalcinosis in bilateral wrists. Severe left and moderate right first CMC degenerative changes with narrowing, subchon dral sclerosis and small osteophytes. Suspect volar subluxation of the ri ght MCP joint. Scattered degenerative changes in the MCP, DIP and PIP joints with tiny marginal osteophytes and cysts. No discrete erosions. No focal soft tissue swelling. Lumbar spine: Counting reference: Lumbosacral junction . For the purposes of this report, L4-5 is considered the level of the iliac crest and assume there are 5 lumbar-type vertebrae. Anatomic variant: None. Straightening of normal lumbar lordosis. Mild multilev el degenerative disc changes with narrowing and endplate osteophytes; moderate degenerative disc changes L5-S1 with endplate sclerosi s and osteophytes. Facet arthropathy in the lower lumbar spine with up to moderate foraminal encroachment at L5-S1. No pars or compression defect. No erosions or syndesmophytes. Atherosclerotic calcification abdomina l aorta. SI joints: SI joints are maintained with no ankylosis, sclerosis or erosions. No fracture or dislocation. Intact pubic sym physis. Degenerative changes in the lower lumbar spine. Knees: No fracture or dislocation. Minimal medial comp artment degenerative changes with narrowing and minimal osteop hytes. No erosions or chondrocalcinosis. No focal soft tissue swelling se en on radiograph. Feet: No fracture or dislocation. Mild to moderate ryan ateral hallux valgus. No erosions. Digital contractures 2-5. No foca l soft tissue swelling seen on radiograph. IMPRESSION: Degenerative changes in the cervical spine as describe d without acute osseous findings. No evidence of inflammatory arthropa thy. Degenerative changes bilateral hands predominantly in the wrists. No evidence of inflammatory arthropathy. Degenerative changes in the lumbar spine as described without acute osseous findings. No evidence of inflammatory arthropa thy. No acute osseous findings SI joints. No evidence of in flammatory no significant degenerative arthropathy. No acute osseous findings bilateral knees. Minimal ost eoarthritis bilaterally. No evidence of inflammatory arthropathy. No acute osseous findings bilateral feet. No evidence of inflammatory arthropathy. Hallux valgus and digital contractures bi laterally. Passenger Brakeman: [facility] Transcribe Date/Time: May 12 2021 1:57P Dictated by : GLO PERES MD This examination was interpreted and the report review ed and electronically signed by: GLO PERES MD on May 12 2021 2:06PM EST [id number] XR HAND 3V PA/LAT/OBL LT on 05-12-2021 XR HAND 3V PA/LAT/OBL * * *Final Report* * * [facility] DATE OF EXAM: May 12 2021 12:30PM [facility] AWX 5345 - XR HAND 3V PA/LAT/OBL LT / [id number] PROCEDURE REASON: Pain in joint, multiple sites * * * * Physician Interpretation * * * * EXAMINATION: XR SI JTS 2V AP PELV/HOFFMAN, XR LUMBAR 2V AP/LAT, XR KNEE SURVEY 1V AP RYAN, XR CERVICAL 2V AP/LAT, XR FOOT 3V AP/LAT/OBL LT, XR FOOT 3V AP/LAT/OBL RT, XR HAND 3V PA/LAT/OBL LT, XR HAND 3V PA/LAT/OBL RT CLINICAL HISTORY: F/U rheumatoid arthritis, c/o joint pain. Hx COPD. Pain in joint, multiple sites Technique: XR SI JTS 2V AP PELV/HOFFMAN, XR LUMBAR 2V AP/LAT, XR KNEE SURVEY 1V AP RYAN, XR CERVICAL 2V AP/LAT, XR FOOT 3V AP /LAT/OBL LT, XR FOOT 3V AP/LAT/OBL RT, XR HAND 3V PA/LAT/OBL LT, XR FOURNIER ND 3V PA/LAT/OBL RT -- NOT APPLICABLE (accession [id number]), NOT APPLICABL E (accession [id number]), BILATERAL (accession [id number]), NOT APPLI CABLE (accession [id number]) with 2 (accession [id number]), 2 (accession [id number]), 1 (accession [id number]), 2 (accession [id number]) views o n 2 (accession [id number]), 2 (accession [id number]), 1 (accession [id number]), 2 (accession [id number]) images Comparison: None RESULT: Cervical spine: Counting reference: Craniocervical lowell ction. Anatomic Variants: None.. Mild multilevel degenerative disc floridalma nges with narrowing and endplate osteophytes. Mild to moderate f acet and uncovertebral arthropathy. No erosions or syndesmophyt es. No fracture or compression defect. Prevertebral soft tissues are u nremarkable. Coarse reticular opacities partially visualized in the lung apices probably due to chronic interstitial lung changes. Hands: No fracture or dislocation. Distal radii and ul na are intact bilaterally. Severe left and moderate right radius sca phoid degenerative changes with narrowing, early subchondral sclerosis, c ystic changes and small osteophytes. Carpal rows are maintained bilatera lly. No erosions or chondrocalcinosis in bilateral wrists. Severe left and moderate right first CMC degenerative changes with narrowing, subchon dral sclerosis and small osteophytes. Suspect volar subluxation of the ri ght MCP joint. Scattered degenerative changes in the MCP, DIP and PIP joints with tiny marginal osteophytes and cysts. No discrete erosions. No focal soft tissue swelling. Lumbar spine: Counting reference: Lumbosacral junction . For the purposes of this report, L4-5 is considered the level of the iliac crest and assume there are 5 lumbar-type vertebrae. Anatomic variant: None. Straightening of normal lumbar lordosis. Mild multilev el degenerative disc changes with narrowing and endplate osteophytes; moderate degenerative disc changes L5-S1 with endplate sclerosi s and osteophytes. Facet arthropathy in the lower lumbar spine with up to moderate foraminal encroachment at L5-S1. No pars or compression defect. No erosions or syndesmophytes. Atherosclerotic calcification abdomina l aorta. SI joints: SI joints are maintained with no ankylosis, sclerosis or erosions. No fracture or dislocation. Intact pubic sym physis. Degenerative changes in the lower lumbar spine. Knees: No fracture or dislocation. Minimal medial comp artment degenerative changes with narrowing and minimal osteop hytes. No erosions or chondrocalcinosis. No focal soft tissue swelling se en on radiograph. Feet: No fracture or dislocation. Mild to moderate ryan ateral hallux valgus. No erosions. Digital contractures 2-5. No foca l soft tissue swelling seen on radiograph. IMPRESSION: Degenerative changes in the cervical spine as describe d without acute osseous findings. No evidence of inflammatory arthropa thy. Degenerative changes bilateral hands predominantly in the wrists. No evidence of inflammatory arthropathy. Degenerative changes in the lumbar spine as described without acute osseous findings. No evidence of inflammatory arthropa thy. No acute osseous findings SI joints. No evidence of in flammatory no significant degenerative arthropathy. No acute osseous findings bilateral knees. Minimal ost eoarthritis bilaterally. No evidence of inflammatory arthropathy. No acute osseous findings bilateral feet. No evidence of inflammatory arthropathy. Hallux valgus and digital contractures bi laterally. Passenger Brakeman: [facility] Transcribe Date/Time: May 12 2021 1:57P Dictated by : GLO PERES MD This examination was interpreted and the report review ed and electronically signed by: GLO PERES MD on May 12 2021 2:06PM EST [id number] XR HAND 3V PA/LAT/OBL RT on 05-12-2021 XR HAND 3V PA/LAT/OBL * * *Final Report* * * [facility] RT DATE OF EXAM: May 12 2021 12:30PM [facility] AWX 5346 - XR HAND 3V PA/LAT/OBL RT / [id number] PROCEDURE REASON: Pain in joint, multiple sites * * * * Physician Interpretation * * * * EXAMINATION: XR SI JTS 2V AP PELV/HOFFMAN, XR LUMBAR 2V AP/LAT, XR KNEE SURVEY 1V AP RYAN, XR CERVICAL 2V AP/LAT, XR FOOT 3V AP/LAT/OBL LT, XR FOOT 3V AP/LAT/OBL RT, XR HAND 3V PA/LAT/OBL LT, XR HAND 3V PA/LAT/OBL RT CLINICAL HISTORY: F/U rheumatoid arthritis, c/o joint pain. Hx COPD. Pain in joint, multiple sites Technique: XR SI JTS 2V AP PELV/HOFFMAN, XR LUMBAR 2V AP/LAT, XR KNEE SURVEY 1V AP RYAN, XR CERVICAL 2V AP/LAT, XR FOOT 3V AP /LAT/OBL LT, XR FOOT 3V AP/LAT/OBL RT, XR HAND 3V PA/LAT/OBL LT, XR FOURNIER ND 3V PA/LAT/OBL RT -- NOT APPLICABLE (accession [id number]), NOT APPLICABL E (accession [id number]), BILATERAL (accession [id number]), NOT APPLI CABLE (accession [id number]) with 2 (accession [id number]), 2 (accession [id number]), 1 (accession [id number]), 2 (accession [id number]) views o n 2 (accession [id number]), 2 (accession [id number]), 1 (accession [id number]), 2 (accession [id number]) images Comparison: None RESULT: Cervical spine: Counting reference: Craniocervical lowell ction. Anatomic Variants: None.. Mild multilevel degenerative disc floridalma nges with narrowing and endplate osteophytes. Mild to moderate f acet and uncovertebral arthropathy. No erosions or syndesmophyt es. No fracture or compression defect. Prevertebral soft tissues are u nremarkable. Coarse reticular opacities partially visualized in the lung apices probably due to chronic interstitial lung changes. Hands: No fracture or dislocation. Distal radii and ul na are intact bilaterally. Severe left and moderate right radius sca phoid degenerative changes with narrowing, early subchondral sclerosis, c ystic changes and small osteophytes. Carpal rows are maintained bilatera lly. No erosions or chondrocalcinosis in bilateral wrists. Severe left and moderate right first CMC degenerative changes with narrowing, subchon dral sclerosis and small osteophytes. Suspect volar subluxation of the ri ght MCP joint. Scattered degenerative changes in the MCP, DIP and PIP joints with tiny marginal osteophytes and cysts. No discrete erosions. No focal soft tissue swelling. Lumbar spine: Counting reference: Lumbosacral junction . For the purposes of this report, L4-5 is considered the level of the iliac crest and assume there are 5 lumbar-type vertebrae. Anatomic variant: None. Straightening of normal lumbar lordosis. Mild multilev el degenerative disc changes with narrowing and endplate osteophytes; moderate degenerative disc changes L5-S1 with endplate sclerosi s and osteophytes. Facet arthropathy in the lower lumbar spine with up to moderate foraminal encroachment at L5-S1. No pars or compression defect. No erosions or syndesmophytes. Atherosclerotic calcification abdomina l aorta. SI joints: SI joints are maintained with no ankylosis, sclerosis or erosions. No fracture or dislocation. Intact pubic sym physis. Degenerative changes in the lower lumbar spine. Knees: No fracture or dislocation. Minimal medial comp artment degenerative changes with narrowing and minimal osteop hytes. No erosions or chondrocalcinosis. No focal soft tissue swelling se en on radiograph. Feet: No fracture or dislocation. Mild to moderate ryan ateral hallux valgus. No erosions. Digital contractures 2-5. No foca l soft tissue swelling seen on radiograph. IMPRESSION: Degenerative changes in the cervical spine as describe d without acute osseous findings. No evidence of inflammatory arthropa thy. Degenerative changes bilateral hands predominantly in the wrists. No evidence of inflammatory arthropathy. Degenerative changes in the lumbar spine as described without acute osseous findings. No evidence of inflammatory arthropa thy. No acute osseous findings SI joints. No evidence of in flammatory no significant degenerative arthropathy. No acute osseous findings bilateral knees. Minimal ost eoarthritis bilaterally. No evidence of inflammatory arthropathy. No acute osseous findings bilateral feet. No evidence of inflammatory arthropathy. Hallux valgus and digital contractures bi laterally. Passenger Brakeman: [facility] Transcribe Date/Time: May 12 2021 1:57P Dictated by : GLO PERES MD This examination was interpreted and the report review ed and electronically signed by: GLO PERES MD on May 12 2021 2:06PM EST [id number] XR KNEE SURVEY 1V AP RYAN on 05-12-2021 XR KNEE SURVEY 1V AP * * *Final Report* * * [facility] RYAN DATE OF EXAM: May 12 2021 12:30PM [facility] AWX 5213 - XR KNEE SURVEY 1V AP RYAN / [id number] PROCEDURE REASON: Pain in joint, multiple sites * * * * Physician Interpretation * * * * EXAMINATION: XR SI JTS 2V AP PELV/HOFFMAN, XR LUMBAR 2V AP/LAT, XR KNEE SURVEY 1V AP RYAN, XR CERVICAL 2V AP/LAT, XR FOOT 3V AP/LAT/OBL LT, XR FOOT 3V AP/LAT/OBL RT, XR HAND 3V PA/LAT/OBL LT, XR HAND 3V PA/LAT/OBL RT CLINICAL HISTORY: F/U rheumatoid arthritis, c/o joint pain. Hx COPD. Pain in joint, multiple sites Technique: XR SI JTS 2V AP PELV/HOFFMAN, XR LUMBAR 2V AP/LAT, XR KNEE SURVEY 1V AP RYAN, XR CERVICAL 2V AP/LAT, XR FOOT 3V AP /LAT/OBL LT, XR FOOT 3V AP/LAT/OBL RT, XR HAND 3V PA/LAT/OBL LT, XR FOURNIER ND 3V PA/LAT/OBL RT -- NOT APPLICABLE (accession [id number]), NOT APPLICABL E (accession [id number]), BILATERAL (accession [id number]), NOT APPLI CABLE (accession [id number]) with 2 (accession [id number]), 2 (accession [id number]), 1 (accession [id number]), 2 (accession [id number]) views o n 2 (accession [id number]), 2 (accession [id number]), 1 (accession [id number]), 2 (accession [id number]) images Comparison: None RESULT: Cervical spine: Counting reference: Craniocervical lowell ction. Anatomic Variants: None.. Mild multilevel degenerative disc floridalma nges with narrowing and endplate osteophytes. Mild to moderate f acet and uncovertebral arthropathy. No erosions or syndesmophyt es. No fracture or compression defect. Prevertebral soft tissues are u nremarkable. Coarse reticular opacities partially visualized in the lung apices probably due to chronic interstitial lung changes. Hands: No fracture or dislocation. Distal radii and ul na are intact bilaterally. Severe left and moderate right radius sca phoid degenerative changes with narrowing, early subchondral sclerosis, c ystic changes and small osteophytes. Carpal rows are maintained bilatera lly. No erosions or chondrocalcinosis in bilateral wrists. Severe left and moderate right first CMC degenerative changes with narrowing, subchon dral sclerosis and small osteophytes. Suspect volar subluxation of the ri ght MCP joint. Scattered degenerative changes in the MCP, DIP and PIP joints with tiny marginal osteophytes and cysts. No discrete erosions. No focal soft tissue swelling. Lumbar spine: Counting reference: Lumbosacral junction . For the purposes of this report, L4-5 is considered the level of the iliac crest and assume there are 5 lumbar-type vertebrae. Anatomic variant: None. Straightening of normal lumbar lordosis. Mild multilev el degenerative disc changes with narrowing and endplate osteophytes; moderate degenerative disc changes L5-S1 with endplate sclerosi s and osteophytes. Facet arthropathy in the lower lumbar spine with up to moderate foraminal encroachment at L5-S1. No pars or compression defect. No erosions or syndesmophytes. Atherosclerotic calcification abdomina l aorta. SI joints: SI joints are maintained with no ankylosis, sclerosis or erosions. No fracture or dislocation. Intact pubic sym physis. Degenerative changes in the lower lumbar spine. Knees: No fracture or dislocation. Minimal medial comp artment degenerative changes with narrowing and minimal osteop hytes. No erosions or chondrocalcinosis. No focal soft tissue swelling se en on radiograph. Feet: No fracture or dislocation. Mild to moderate ryan ateral hallux valgus. No erosions. Digital contractures 2-5. No foca l soft tissue swelling seen on radiograph. IMPRESSION: Degenerative changes in the cervical spine as describe d without acute osseous findings. No evidence of inflammatory arthropa thy. Degenerative changes bilateral hands predominantly in the wrists. No evidence of inflammatory arthropathy. Degenerative changes in the lumbar spine as described without acute osseous findings. No evidence of inflammatory arthropa thy. No acute osseous findings SI joints. No evidence of in flammatory no significant degenerative arthropathy. No acute osseous findings bilateral knees. Minimal ost eoarthritis bilaterally. No evidence of inflammatory arthropathy. No acute osseous findings bilateral feet. No evidence of inflammatory arthropathy. Hallux valgus and digital contractures bi laterally. Passenger Brakeman: PSCB Transcribe Date/Time: May 12 2021 1:57P Dictated by : GLO PERES MD This examination was interpreted and the report review ed and electronically signed by: GLO PERES MD on May 12 2021 2:06PM EST [id number] XR LUMBAR 2V AP/LAT on 05-12-2021 XR LUMBAR 2V AP/LAT * * *Final Report* * * [address] [facility] DATE OF EXAM: May 12 2021 12:30PM [facility] AWX 5229 - XR LUMBAR 2V AP/LAT / PROCEDURE REASON: Pain in joint, multiple sites * * * * Physician Interpretation * * * * EXAMINATION: XR SI JTS 2V AP PELV/HOFFMAN, XR LUMBAR 2V AP/LAT, XR KNEE SURVEY 1V AP RYAN, XR CERVICAL 2V AP/LAT, XR FOOT 3V AP/LAT/OBL LT, XR FOOT 3V AP/LAT/OBL RT, XR HAND 3V PA/LAT/OBL LT, XR HAND 3V PA/LAT/OBL RT CLINICAL HISTORY: F/U rheumatoid arthritis, c/o joint pain. Hx COPD. Pain in joint, multiple sites Technique: XR SI JTS 2V AP PELV/HOFFMAN, XR LUMBAR 2V AP/LAT, XR KNEE SURVEY 1V AP RYAN, XR CERVICAL 2V AP/LAT, XR FOOT 3V AP /LAT/OBL LT, XR FOOT 3V AP/LAT/OBL RT, XR HAND 3V PA/LAT/OBL LT, XR FOURNIER ND 3V PA/LAT/OBL RT -- NOT APPLICABLE (accession [id number]), NOT APPLICABL E (accession [id number]), BILATERAL (accession [id number]), NOT APPLI CABLE (accession [id number]) with 2 (accession [id number]), 2 (accession [id number]), 1 (accession [id number]), 2 (accession [id number]) views o n 2 (accession [id number]), 2 (accession [id number]), 1 (accession [id number]), 2 (accession [id number]) images Comparison: None RESULT: Cervical spine: Counting reference: Craniocervical lowell ction. Anatomic Variants: None.. Mild multilevel degenerative disc floridalma nges with narrowing and endplate osteophytes. Mild to moderate f acet and uncovertebral arthropathy. No erosions or syndesmophyt es. No fracture or compression defect. Prevertebral soft tissues are u nremarkable. Coarse reticular opacities partially visualized in the lung apices probably due to chronic interstitial lung changes. Hands: No fracture or dislocation. Distal radii and ul na are intact bilaterally. Severe left and moderate right radius sca phoid degenerative changes with narrowing, early subchondral sclerosis, c ystic changes and small osteophytes. Carpal rows are maintained bilatera lly. No erosions or chondrocalcinosis in bilateral wrists. Severe left and moderate right first CMC degenerative changes with narrowing, subchon dral sclerosis and small osteophytes. Suspect volar subluxation of the ri ght MCP joint. Scattered degenerative changes in the MCP, DIP and PIP joints with tiny marginal osteophytes and cysts. No discrete erosions. No focal soft tissue swelling. Lumbar spine: Counting reference: Lumbosacral junction . For the purposes of this report, L4-5 is considered the level of the iliac crest and assume there are 5 lumbar-type vertebrae. Anatomic variant: None. Straightening of normal lumbar lordosis. Mild multilev el degenerative disc changes with narrowing and endplate osteophytes; moderate degenerative disc changes L5-S1 with endplate sclerosi s and osteophytes. Facet arthropathy in the lower lumbar spine with up to moderate foraminal encroachment at L5-S1. No pars or compression defect. No erosions or syndesmophytes. Atherosclerotic calcification abdomina l aorta. SI joints: SI joints are maintained with no ankylosis, sclerosis or erosions. No fracture or dislocation. Intact pubic sym physis. Degenerative changes in the lower lumbar spine. Knees: No fracture or dislocation. Minimal medial comp artment degenerative changes with narrowing and minimal osteop hytes. No erosions or chondrocalcinosis. No focal soft tissue swelling se en on radiograph. Feet: No fracture or dislocation. Mild to moderate ryan ateral hallux valgus. No erosions. Digital contractures 2-5. No foca l soft tissue swelling seen on radiograph. IMPRESSION: Degenerative changes in the cervical spine as describe d without acute osseous findings. No evidence of inflammatory arthropa thy. Degenerative changes bilateral hands predominantly in the wrists. No evidence of inflammatory arthropathy. Degenerative changes in the lumbar spine as described without acute osseous findings. No evidence of inflammatory arthropa thy. No acute osseous findings SI joints. No evidence of in flammatory no significant degenerative arthropathy. No acute osseous findings bilateral knees. Minimal ost eoarthritis bilaterally. No evidence of inflammatory arthropathy. No acute osseous findings bilateral feet. No evidence of inflammatory arthropathy. Hallux valgus and digital contractures bi laterally. Passenger Brakeman[facility] Transcribe Date/Time: May 12 2021 1:57P Dictated by : GLO PERES MD This examination was interpreted and the report review ed and electronically signed by: GLO PERES MD on May 12 2021 2:06PM EST [id number] XR SI JTS 2V AP PELV/HOFFMAN on 2021 XR SI JTS 2V AP * * *Final Report* * * [facility] [place] [facility] PELV/HOFFMAN DATE OF EXAM: May 12 2021 12:30PM [facility] AWX 5245 - XR SI JTS 2V AP PELV/HOFFMAN / PROCEDURE REASON: Pain in joint, multiple sites * * * * Physician Interpretation * * * * EXAMINATION: XR SI JTS 2V AP PELV/HOFFMAN, XR LUMBAR 2V AP/LAT, XR KNEE SURVEY 1V AP RYAN, XR CERVICAL 2V AP/LAT, XR FOOT 3V AP/LAT/OBL LT, XR FOOT 3V AP/LAT/OBL RT, XR HAND 3V PA/LAT/OBL LT, XR HAND 3V PA/LAT/OBL RT CLINICAL HISTORY: F/U rheumatoid arthritis, c/o joint pain. Hx COPD. Pain in joint, multiple sites Technique: XR SI JTS 2V AP PELV/HOFFMAN, XR LUMBAR 2V AP/LAT, XR KNEE SURVEY 1V AP RYAN, XR CERVICAL 2V AP/LAT, XR FOOT 3V AP /LAT/OBL LT, XR FOOT 3V AP/LAT/OBL RT, XR HAND 3V PA/LAT/OBL LT, XR FOURNIER ND 3V PA/LAT/OBL RT -- NOT APPLICABLE (accession [id number]), NOT APPLICABL E (accession [id number]), BILATERAL (accession [id number]), NOT APPLI CABLE (accession [id number]) with 2 (accession [id number]), 2 (accession [id number]), 1 (accession [id number]), 2 (accession [id number]) views o n 2 (accession [id number]), 2 (accession [id number]), 1 (accession [id number]), 2 (accession [id number]) images Comparison: None RESULT: Cervical spine: Counting reference: Craniocervical lowell ction. Anatomic Variants: None.. Mild multilevel degenerative disc floridalma nges with narrowing and endplate osteophytes. Mild to moderate f acet and uncovertebral arthropathy. No erosions or syndesmophyt es. No fracture or compression defect. Prevertebral soft tissues are u nremarkable. Coarse reticular opacities partially visualized in the lung apices probably due to chronic interstitial lung changes. Hands: No fracture or dislocation. Distal radii and ul na are intact bilaterally. Severe left and moderate right radius sca phoid degenerative changes with narrowing, early subchondral sclerosis, c ystic changes and small osteophytes. Carpal rows are maintained bilatera lly. No erosions or chondrocalcinosis in bilateral wrists. Severe left and moderate right first CMC degenerative changes with narrowing, subchon dral sclerosis and small osteophytes. Suspect volar subluxation of the ri ght MCP joint. Scattered degenerative changes in the MCP, DIP and PIP joints with tiny marginal osteophytes and cysts. No discrete erosions. No focal soft tissue swelling. Lumbar spine: Counting reference: Lumbosacral junction . For the purposes of this report, L4-5 is considered the level of the iliac crest and assume there are 5 lumbar-type vertebrae. Anatomic variant: None. Straightening of normal lumbar lordosis. Mild multilev el degenerative disc changes with narrowing and endplate osteophytes; moderate degenerative disc changes L5-S1 with endplate sclerosi s and osteophytes. Facet arthropathy in the lower lumbar spine with up to moderate foraminal encroachment at L5-S1. No pars or compression defect. No erosions or syndesmophytes. Atherosclerotic calcification abdomina l aorta. SI joints: SI joints are maintained with no ankylosis, sclerosis or erosions. No fracture or dislocation. Intact pubic sym physis. Degenerative changes in the lower lumbar spine. Knees: No fracture or dislocation. Minimal medial comp artment degenerative changes with narrowing and minimal osteop hytes. No erosions or chondrocalcinosis. No focal soft tissue swelling se en on radiograph. Feet: No fracture or dislocation. Mild to moderate ryan ateral hallux valgus. No erosions. Digital contractures 2-5. No foca l soft tissue swelling seen on radiograph. IMPRESSION: Degenerative changes in the cervical spine as describe d without acute osseous findings. No evidence of inflammatory arthropa thy. Degenerative changes bilateral hands predominantly in the wrists. No evidence of inflammatory arthropathy. Degenerative changes in the lumbar spine as described without acute osseous findings. No evidence of inflammatory arthropa thy. No acute osseous findings SI joints. No evidence of in flammatory no significant degenerative arthropathy. No acute osseous findings bilateral knees. Minimal ost eoarthritis bilaterally. No evidence of inflammatory arthropathy. No acute osseous findings bilateral feet. No evidence of inflammatory arthropathy. Hallux valgus and digital contractures bi laterally. Passenger Brakeman: PSCB Transcribe Date/Time: May 12 2021 1:57P Dictated by : GLO PERES MD This examination was interpreted and the report review ed and electronically signed by: GLO PERES MD on May 12 2021 2:06PM EST [id number] [facility] C[facility]TRUEWS[facility] VIVIANA Simpson ([id number]) 1955 [facility] Time Provider Department 05/05/21 Alexa BECERRA During your visit today, we recorded the following inf ormation about you: Tova Austin RN 05/05/2021 8:30 AM Signed Patient calls in to request an order for prednisone be sent to [facility] [place]. Patient reports that she is having i ncreased pain in her hands and increased difficul ty walking related to rheumatoid arthritis. Patient reports the 5 day prescription of ani brown helped but she has been off of it for about a week now and the pain is returning. Josse colin was seen by rheumatology (Dr. Calderón) on April 25 and next appo intment is on June 10. Please review and advise, SHALOM Piper PA-C 05/05/2021 9:10 AM Signed Should let her powerhouse mechanic know as they may wish to change medication. The following approved medic ation requests have been transmitted electronically. Signed Prescriptions Disp Refills predniSONE (DELTASONE) 10 mg tablet 30 tablet 0 Sig: Take 4 tabs daily x 3 days, then 3 tabs x 3 days, 2 tabs x 3 days, then 1 tab x3 days with food. Authorizing Provider: Alexa BECERRA PA-C Tara Runkle LPN 05/05/2021 10:51 AM Signed Patient was notified. Allergies As of Date: 05/05/2021 Noted Allergy Reactio n RAGWEED 03/10/2011 14 - Other: See Comments TREES 03/10/2011 14 - Other: See Comments Date Reviewed: 04/01/2021 Reviewed by: Hailee Roque MA - Fully Assessed Reason for Visit: Patient Update--rheumatoid arthritis [Other] Order(s):predniSONE (DELTASONE) 10 mg ta bletTake 4 tabs daily x 3 days, then 3 tabs x 3 days, 2 tabs x 3 days, then 1 tab x3 days wit h food.Disp: 30 tabletRfl: 0 Prescriptions as of 05/05/2021 - predniSONE (DELTASONE) 10 mg tablet Take 4 tabs daily x 3 days, then 3 tabs x 3 days, 2 ta bs x 3 days, then 1 tab x3 days with food. - ondansetron (ZOFRAN) 4 mg tablet Take 1 tablet by mouth every 6 hours as needed for bernabe sea/vomiting. - ferrous gluconate 324 mg (37.5 mg iron) tablet Take 1 tablet by mouth twice daily with meals. - gabapentin (NEURONTIN) 400 mg capsule Take 1 capsule by mouth three times daily for 180 days . - Miscellaneous Medical Supply Portable oxygen concentrator 3l/min at all times. - gabapentin (NEURONTIN) 100 mg capsule Take 2 capsules by mouth twice daily for 180 days. - metFORMIN ER (GLUCOPHAGE XR) 500 mg 24 hr tablet Take 1 tablet by mouth once daily. - metoprolol succinate ER (TOPROL XL) 100 mg Take 1 tablet by mouth once daily. - omeprazole (PRILOSEC) 40 mg capsule Take 1 capsule by mouth once daily. - verapamil (CALAN, ISOPTIN) 80 mg tablet Take 0.5 tablets by mouth every 8 hours. - rivaroxaban (XARELTO) 20 mg tablet Take 1 tablet by mouth daily with dinner. - ipratropium-albuterol (DUONEB) 0.5 mg-3 mg(2.5 mg ba se)/3 mL nebu Inhale 3 mL as instructed four times daily. - budesonide (PULMICORT) 0.5 mg/2 mL nebulizer solutio n Use 2 mL via nebulizer once daily. INHALE 2 ML B Y NEBULIZER OVER 5-15 MINUTES EVERY 12 HOURS. - COMPOUNDED PRESCRIPTION Provide nebulizer accessory kit. DME: [employer]. - COMPOUNDED PRESCRIPTION Accessories for nebulizer J43.1 Panlobular emphysema ( HCC) (primary encounter diagnosis) J84.9 ILD (interstitial lung dise ase) ([facility]) - COMPOUNDED PRESCRIPTION #1 Continuous Flow Stationary O2 Concentrator Sig: O2 2l/min liter flow Patient is to keep portablel concentrator as well J43. 2 Centrilobular emphysema ([facility]) J84.9 ILD (interstitial lung disease) ([facility]) J96.11 Chronic respiratory failure with hypoxia ([facility]) - leflunomide (ARAVA) 10 mg tablet Take 1 tablet by mouth once daily. - COMPOUNDED PRESCRIPTION Face mask: hypoxia - COMPOUNDED PRESCRIPTION Portable oxygen concentrator, setting 2 at rest, setti ng 3 with ambulation. - COMPOUNDED PRESCRIPTION Evaluate patient for portable pulse dose O2 concentrat or. - COMPOUNDED PRESCRIPTION Portable oxygen concentrator. - acetaminophen (TYLENOL EXTRA STRENGTH) 500 mg tablet Take 1,000 mg by mouth every 6 hours as needed. Facility-Administered Medications as of 05/05/2021 - perflutren lipid microspheres 1.3 mL in NaCl (PF) 0. 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 CNPN on 04-25-2021 CNPN Telephone (RHBATH) [address] VIVIANA Beverly ([id number]) 1955 F Medical Date Time Provider Department Center 04/25/21 ASIA CALDERÓN RHBATH During your visit today, we recorded the following inf ormation about you: Sayda Jimenez LPN 04/25/2021 1:59 PM Addendum Left detailed vm asking patient to call and schedule f /u appt in office with Dr. Calderón. Patient called back, appt scheduled below. Lab and x r ay orders mailed to patient. Patient will obtain outside of [facility]. Will call office after completed to obtain results. Patient reminded she will need to bring a photo ID, all insurance cards and a list of medications and allergies. Next appt. 06/10/2021 9:00 AM MD EDDIE Carnes [facility] Sayda JimenezDESIKirk Jimenez, ROBERTA 05/07/2021 12:50 PM Signed Patient left asking for return call. Patient states she received her orders i n the mail and she doesn't understand it. [facility] Sayda JimenezROBERTA Sayda Jimenez, ROBERTA 05/07/2021 3:55 PM Signed I reached out to the patient and explained the paperwo rk to her. Patient states she will try to get labs and x rays nex t week. Sayda JimenezROBERTA Allergies As of Date: 04/25/2021 Noted Allergy Reactio n RAGWEED 03/10/2011 14 - Other: See Comments TREES 03/10/2011 14 - Other: See Comments Date Reviewed: 04/01/2021 Reviewed by: Hailee Roque MA - Fully Assessed Reason for Visit: Future Appointment [256] Prescriptions as of 05/07/2021 - predniSONE (DELTASONE) 10 mg tablet Take 4 tabs daily x 3 days, then 3 tabs x 3 days, 2 ta bs x 3 days, then 1 tab x3 days with food. - ondansetron (ZOFRAN) 4 mg tablet Take 1 tablet by mouth every 6 hours as needed for bernabe sea/vomiting. - ferrous gluconate 324 mg (37.5 mg iron) tablet Take 1 tablet by mouth twice daily with meals. - gabapentin (NEURONTIN) 400 mg capsule Take 1 capsule by mouth three times daily for 180 days . - Miscellaneous Medical Supply Portable oxygen concentrator 3l/min at all times. - gabapentin (NEURONTIN) 100 mg capsule Take 2 capsules by mouth twice daily for 180 days. - metFORMIN ER (GLUCOPHAGE XR) 500 mg 24 hr tablet Take 1 tablet by mouth once daily. - metoprolol succinate ER (TOPROL XL) 100 mg Take 1 tablet by mouth once daily. - omeprazole (PRILOSEC) 40 mg capsule Take 1 capsule by mouth once daily. - verapamil (CALAN, ISOPTIN) 80 mg tablet Take 0.5 tablets by mouth every 8 hours. - rivaroxaban (XARELTO) 20 mg tablet Take 1 tablet by mouth daily with dinner. - ipratropium-albuterol (DUONEB) 0.5 mg-3 mg(2.5 mg ba se)/3 mL nebu Inhale 3 mL as instructed four times daily. - budesonide (PULMICORT) 0.5 mg/2 mL nebulizer solutio n Use 2 mL via nebulizer once daily. INHALE 2 ML B Y NEBULIZER OVER 5-15 MINUTES EVERY 12 HOURS. - COMPOUNDED PRESCRIPTION Provide nebulizer accessory kit. DME: [employer]. - COMPOUNDED PRESCRIPTION Accessories for nebulizer J43.1 Panlobular emphysema ( HCC) (primary encounter diagnosis) J84.9 ILD (interstitial lung dise ase) (HCC) - COMPOUNDED PRESCRIPTION #1 Continuous Flow Stationary O2 Concentrator Sig: O2 2l/min liter flow Patient is to keep portablel concentrator as well J43. 2 Centrilobular emphysema (HCC) J84.9 ILD (interstitial lung disease) (HCC) J96.11 Chronic respiratory failure with hypoxia (HCC) - leflunomide (ARAVA) 10 mg tablet Take 1 tablet by mouth once daily. - COMPOUNDED PRESCRIPTION Face mask: hypoxia - COMPOUNDED PRESCRIPTION Portable oxygen concentrator, setting 2 at rest, setti ng 3 with ambulation. - COMPOUNDED PRESCRIPTION Evaluate patient for portable pulse dose O2 concentrat or. - COMPOUNDED PRESCRIPTION Portable oxygen concentrator. - acetaminophen (TYLENOL EXTRA STRENGTH) 500 mg tablet Take 1,000 mg by mouth every 6 hours as needed. Facility-Administered Medications as of 05/07/2021 - perflutren lipid microspheres 1.3 mL in NaCl (PF) 0. 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 CNPN on 2021 MELISAN Telephone (NEO) [facility] VIVIANA SANTANA ([id number]) 1955 [facility] Time Provider Department 04/23/21 Alexa BECERRA During your visit today, we recorded the following inf ormation about you: Tammi Ellington LPN 2021 11:02 AM Signed Pt calling to request a prescription for Prednis one. Her Rheumatoid Arthritis is severe and she can hardly walk for the past 1 to 2 weeks. She has tried tylenol and this does not help. She does not see her new Order Runner until 05-14-21. Was prescribed Prednisone in the past and thi s helped Last Order Runner did not take her current insurance and pt was dropped. Please advise pt. Tammi Olivares MD 2021 11:34 AM Signed rx sent Junior Crocker Ma 2021 11:50 AM Signed Patient was notified Junior Crocker Ma Allergies As of Date: 2021 Noted Allergy Reactio n RAGWEED 03/10/2011 14 - Other: See Comments TREES 03/10/2011 14 - Other: See Comments Date Reviewed: 04/01/2021 Reviewed by: Hailee Roque MA - Fully Assessed Reason for Visit: increased Rheumatoid Arthiritis [Other] Cmt: danica curran prescription Order(s):predniSONE (DELTASONE) 20 mg tabletTake 1 tablet by mouth once daily for 5 days. Take daily with food.Disp: 5 tabletRfl: 0 Prescriptions as of 2021 - predniSONE (DELTASONE) 20 mg tablet Take 1 tablet by mouth once daily for 5 days. Take devin ly with food. - ondansetron (ZOFRAN) 4 mg tablet Take 1 tablet by mouth every 6 hours as needed for bernabe sea/vomiting. - ferrous gluconate 324 mg (37.5 mg iron) tablet Take 1 tablet by mouth twice daily with meals. - gabapentin (NEURONTIN) 400 mg capsule Take 1 capsule by mouth three times daily for 180 days . - Miscellaneous Medical Supply Portable oxygen concentrator 3l/min at all times. - gabapentin (NEURONTIN) 100 mg capsule Take 2 capsules by mouth twice daily for 180 days. - metFORMIN ER (GLUCOPHAGE XR) 500 mg 24 hr tablet Take 1 tablet by mouth once daily. - metoprolol succinate ER (TOPROL XL) 100 mg Take 1 tablet by mouth once daily. - omeprazole (PRILOSEC) 40 mg capsule Take 1 capsule by mouth once daily. - verapamil (CALAN, ISOPTIN) 80 mg tablet Take 0.5 tablets by mouth every 8 hours. - rivaroxaban (XARELTO) 20 mg tablet Take 1 tablet by mouth daily with dinner. - ipratropium-albuterol (DUONEB) 0.5 mg-3 mg(2.5 mg ba se)/3 mL nebu Inhale 3 mL as instructed four times daily. - budesonide (PULMICORT) 0.5 mg/2 mL nebulizer solutio n Use 2 mL via nebulizer once daily. INHALE 2 ML B Y NEBULIZER OVER 5-15 MINUTES EVERY 12 HOURS. - COMPOUNDED PRESCRIPTION Provide nebulizer accessory kit. DME: [employer]. - COMPOUNDED PRESCRIPTION Accessories for nebulizer J43.1 Panlobular emphysema ( HCC) (primary encounter diagnosis) J84.9 ILD (interstitial lung dise ase) (HCC) - COMPOUNDED PRESCRIPTION #1 Continuous Flow Stationary O2 Concentrator Sig: O2 2l/min liter flow Patient is to keep portablel concentrator as well J43. 2 Centrilobular emphysema (HCC) J84.9 ILD (interstitial lung disease) (HCC) J96.11 Chronic respiratory failure with hypoxia (HCC) - leflunomide (ARAVA) 10 mg tablet Take 1 tablet by mouth once daily. - COMPOUNDED PRESCRIPTION Face mask: hypoxia - COMPOUNDED PRESCRIPTION Portable oxygen concentrator, setting 2 at rest, setti ng 3 with ambulation. - COMPOUNDED PRESCRIPTION Evaluate patient for portable pulse dose O2 concentrat or. - COMPOUNDED PRESCRIPTION Portable oxygen concentrator. - acetaminophen (TYLENOL EXTRA STRENGTH) 500 mg tablet Take 1,000 mg by mouth every 6 hours as needed. Facility-Administered Medications as of 2021 - perflutren lipid microspheres 1.3 mL in NaCl (PF) 0. 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] 05/19/2017 05/19/2017 Iatrogenic adrenal insufficiency (HCC) [E27.49] 2017 Chronic respiratory failure with hypoxia (HCC) *2017 Rheumatoid arthritis involving multiple sites w*2017 longterm current use of immunosuppressive drug*2017 Paroxysmal atrial fibrillation (HCC) [I48.0] 8 Hyperthyroidism [E05.90] 05/10/2017 Normocytic anemia [D64.9] 05/28/2017 Pre-diabetes [R73.03] 06/28/2017 Current chronic use of systemic steroids [Z79.5*2017 Type 2 diabetes mellitus without complication, *2017 Combined 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-related cataract of both *201701/06/2018 Regular astigmatism, bilateral [H52.223] 11/22/2017 Combined 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-related cataract (more content n ot included)... CNOV on 04-01-2021 CNOV Office Visit (MARY GRACE) Normal [place] [facility] VIVIANA SANTANA ([id number]) [address] [facility] Time Provider Department 04/01/21 3:00 PM YOVANI PIEDRA During your visit today, we recorded the following inf ormation about you: Pulse Blood pressure Weight Height 92/minute 128/76 86.9 kg 1.626 m Yovani Piedra DO 04/01/2021 3:37 PM Signed [facility] [place] Sanjiv Sprague Department of Cardiovascula r Medicine SECTION OF REGIONAL CARDIOLOGY 09/30/20 SUHA: 04/01/20 Viviana Santana is a 65 year old female with a history sh ortness of breath, palpitations and atrial fibrillation who is here today for follow up. HPI: She is doing well since last visit with no cardiac com plaints. She reports chronic dyspnea on exertion with mild efforts primarily related to her CILD. Denies chest pain, orthopnea, PND, palpitati ons, lightheadedness, dizziness, syncope, or edema. Patient denies any regul ar aerobic exercise. Prior history: 04/01/20 She has been doing well sin e last visit other than she was admitted in January 2020 with pneumonia and respiratory failure again. She did got to [facility] for pneumonia admit in January 2019: Preadmission evaluation: SOB and cough x 2 days. No fe kameron. had URI. Which facility: [facility] Dates of visit: !-02/02/19 Primary Diagnosis/es: MSSA, Serratia marcescans pneumonia Chronic hypoxic respiratory failure COPD Secondary: Chronic prednisone Hyperthyroidism ILD Multiple lung nodules CESAR Chronic atrial fibrillation Pre-diabetes RA Chronic immunosuppressant drug therapy Type 2 DM Testing done: resp cultures positive as above sensitive to levaquin 01/30/19 WBC 19.6 hgb 10.6 chems WNL except alb 2.7, g lob 5.2 02/01/19 WBC 13.1 hgb 8.8 RDW WNL. 01/30/19 ABG 7.48-31.8-70--23.7-95% Negative legionella, Atrep Pneum, Resp virus panel Treatment given/Hospital course: IV ATB, O2. Improved. D/C in stable condition with prednisone 40mg daily and levaquin 750mg x 1 week Current symptoms: improved. Finished antibiotics. Feel s back to baseline. Saw Dr. Sofia and started on Gabapentin 100mg TID At prior visit did not start Ivabradine due to cost. P tung assistance information was printed off for her at that visit. She did not send in the paperwork because she's had significant life stressors over the past month. Her son is in rehab for a drug a ddiction, and this has consumed the majority of her time. She was admitted [facility] in April with sepsis and pneumonia and acute respiratory failure requiring vent ilation. During her hospital admission she was noted to be in atrial fibri llation with rapid ventricular response. ?Her heart rate was contro lled with beta blockers. ?She denies any prior history of atrial fibrillation. ?She was found to have influenza as well. ?During h er hospitalization she was noted to have a very low TSH at 0.02 and elevated T4 with 1.74. ?Her thyroid sc an however was not conclusive for hypothyroidis m. ?She has known long-standing severe interstitial lung disease and bronchiectasis. ?She follows pulmonary at the [facility] now. ?There was a note that they increased her metoprolol to 50 twice a day of long acting in the hospital however she w as only taking 25 mg daily at this time. ?Her heart rate was 121 and s inus tachycardia. ?She is only able to walk a minimal amount in stores before s he is short of breath. ?She is on home oxygen therapy. ?She knows she did have a sensation ra pid heartbeat during atrial fibrillation and has not had that sensation sin ce. Patient was seen in the office on 05/06/2018 where she was noted to be significantly tachycardic in the 120's. She has a long -standing history of severe interstitial lung disease and bronchiectasis. S he was diagnosed with inappropriate sinus tachycardia, and has been maintain ed on Toprol-XL 50mg daily. She was started on Iv abradine 2.5mg BID for better rate control. She did not start this medication because it was $95 a month a nd she cannot afford this. PAST MEDICAL HISTORY Diagnosis Date - Anemia, unspecified - Asthma - Atrial fibrillation (HCC) 04/26/2017 - Cardiac disease 2020 pt does not know other than she has heart problems - Chronic bronchitis (HCC) - COPD (chronic obstructive pulmonary disease) ([facility]) Chronic bronchitis by history. - COVID-19 vaccine series completed 07-27-2020 2nd dose Pfizer - Hyperglycemia 12/25/2016 - Hyperthyroidism 05/10/2017 [place] - Rheumatoid arthritis (HCC) Leflunomide. Dayanna Silva MD. 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 .Auto Diff on 11-27-2020 Basophil, Absolute 0.10 10 3/mcL Normal 0.00-0.19 [facility] ([place]) Comment on above: Performed By: #### CMP, GFR #### [place] [id number] #### ANEU, ADIFF, CBC #### [address] [address] Basophils/100 WBC (Bld) 0.7 % Normal 0.0-2.5 [facility] ([place]) Comment on above: Performed By: #### CMP, GFR #### [address] [address] #### ANEU, ADIFF, CBC #### [address] [address] Eosinophil, Absolute 0.30 10 3/mcL Normal 0.00-0.40 [facility] ([place]) Comment on above: Performed By: #### CMP, GFR #### [place] [address] #### ANEU, ADIFF, CBC #### [address] [address] Eosinophils/100 WBC (Bld) 1.9 % Normal 0.0-7.0 [facility] ([place]) Comment on above: Performed By: #### CMP, GFR #### [place] [address] #### ANEU, ADIFF, CBC #### [address] [address] Lymphocyte, Absolute 1.70 10 3/mcL Normal 0.77-3.85 [facility] ([place]) Comment on above: Performed By: #### CMP, GFR #### [place] [address] #### ANEU, ADIFF, CBC #### [address] [address] Lymphocytes/100 WBC (Bld) 10.8 % Normal 10.0-50.0 [facility] ([place]) Comment on above: Performed By: #### CMP, GFR #### [place] [address] #### ANEU, ADIFF, CBC #### [address] [address] Monocyte, Absolute 1.00 10 3/mcL Normal 0.15-1.00 [facility] ([place]) Comment on above: Performed By: #### CMP, GFR #### [place] [address] #### ANEU, ADIFF, CBC #### [address] [address] Monocytes/100 WBC (Bld) 6.2 % Normal 1.7-13.0 [facility] ([place]) Comment on above: Performed By: #### CMP, GFR #### [place] [address] #### ANEU, ADIFF, CBC #### [place] [id number] [place], [place] [address] Neutrophils/100 WBC (Bld) 80.4 % High 37.0-80.0 [facility] ([place]) Comment on above: Performed By: #### CMP, GFR #### [place] [address] #### ANEU, ADIFF, CBC #### [place] [address] [place], [place] [address] .GFR on 11-27-2020 GFR 80 ml/min/1.73sqm Normal [facility] ([place]) Comment on above: Result Comment: GFR Population mean for Afri can Sierra Leonean, Non- Americans Ages 20-29 = 116 mL/min/1.73 sq.m. Ages 30-39 = 107 mL/min/1.73 sq.m. Ages 40-49 = 99 mL/min/1.73 sq.m. Ages 50-59 = 93 mL/min/1.73 sq.m. Ages 60-69 = 85 mL/min/1.73 sq.m. Ages 70+ = 75 mL/min/1.73 sq .m. Chronic Kidney Disease: Less than 60 mL/min/1.73 square meters End Stage Renal Disease: Les s than 15 mL/min/1.73 square meters Performed By: #### CMP, GFR #### [place] [address] #### ANEU, ADIFF, CBC #### [place] [id number] [place], [place] [address] GFR Non- 66 ml/min/1.73sqm Normal [facility] ([place]) Comment on above: Result Comment: GFR Population mean for Afri can [place] Leonean, Non- Americans Ages 20-29 = 116 mL/min/1.73 sq.m. Ages 30-39 = 107 mL/min/1.73 sq.m. Ages 40-49 = 99 mL/min/1.73 sq.m. Ages 50-59 = 93 mL/min/1.73 sq.m. Ages 60-69 = 85 mL/min/1.73 sq.m. Ages 70+ = 75 mL/min/1.73 sq .m. Chronic Kidney Disease: Less than 60 mL/min/1.73 square meters End Stage Renal Disease: Les s than 15 mL/min/1.73 square meters Performed By: #### CMP, GFR #### [place] [address] #### ANEU, ADIFF, CBC #### [address] [address] .NEUABS on 11-27-2020 Neutrophil, Absolute 12.60 10 3/mcL High 2.85-6.16 [facility] ([place]) Comment on above: Performed By: #### CMP, GFR #### [place] [address] #### ANEU, ADIFF, CBC #### [address] [address] CBC on 11-27-2020 Erythrocyte distribution width 17.0 % High 11.5-14.5 [facility] ([place]) (RBC) [Ratio] Comment on above: Performed By: #### CMP, GFR #### [place] [address] #### ANEU, ADIFF, CBC #### [address] [address] Hematocrit (Bld) [Volume 37.6 % Normal 37.0-47.0 [facility] ([place]) fraction] Comment on above: Performed By: #### CMP, GFR #### [place] [address] #### ANEU, ADIFF, CBC #### [address] [address] Hgb 12.1 G/dL Normal 12.0-16.0 [facility] ([place]) Comment on above: Performed By: #### CMP, GFR #### [place] [address] #### ANEU, ADIFF, CBC #### [address] [address] MCH (RBC) [Entitic mass] 30.8 pg Normal 27.0-31.2 [facility] ([place]) Comment on above: Performed By: #### CMP, GFR #### [address] [address] #### ANEU, ADIFF, CBC #### [address] [address] MCHC 32.1 G/dL Low 33.0-37.0 [facility] ([place]) Comment on above: Performed By: #### CMP, GFR #### [place] [address] #### ANEU, ADIFF, CBC #### [address] [address] MCV (RBC) [Entitic vol] 96.0 fL High 80.0-94.0 [facility] ([place]) Comment on above: Performed By: #### CMP, GFR #### [place] [address] #### ANEU, ADIFF, CBC #### [address] [address] Platelet 341 10 3/mcL Normal 130-400 [facility] ([place]) Comment on above: Performed By: #### CMP, GFR #### [place] [address] #### ANEU, ADIFF, CBC #### [address] [address] Platelet mean volume (Bld) 8.1 fL Normal 7.4-10.4 [facility] ([place]) [Entitic vol] Comment on above: Performed By: #### CMP, GFR #### [place] [address] #### ANEU, ADIFF, CBC #### [address] [address] RBC 3.92 10 6/mcL Low 4.20-5.40 [facility] ([place]) Comment on above: Performed By: #### CMP, GFR #### [place] [id number] #### ANEU, ADIFF, CBC #### [address] [address] WBC 15.70 10 3/mcL High 4.60-10.80 [facility] ([place]) Comment on above: Performed By: #### CMP, GFR #### [place] [address] #### ANEU, ADIFF, CBC #### [address] [address] CMP on 11-27-2020 Albumin Level 3.2 G/dL Low 3.4-4.8 [facility] ([place]) Comment on above: Performed By: #### CMP, GFR #### [place] [address] #### ANEU, ADIFF, CBC #### [address] [address] Albumin/Globulin [Mass ratio] 0.9 {ratio} Low 1.1-2.5 [facility] ([place]) Comment on above: Performed By: #### CMP, GFR #### [place] [address] #### ANEU, ADIFF, CBC #### [address] [address] ALP [Catalytic activity/Vol] 108 U/L Normal 40-135 [facility] ([place]) Comment on above: Performed By: #### CMP, GFR #### [place] [address] #### ANEU, ADIFF, CBC #### [address] [address] ALT [Catalytic activity/Vol] 21 U/L Normal 14-59 [facility] ([place]) Comment on above: Performed By: #### CMP, GFR #### [place] [address] #### ANEU, ADIFF, CBC #### [address] [address] AST [Catalytic activity/Vol] 15 U/L Normal 10-40 [facility] ([place]) Comment on above: Performed By: #### CMP, GFR #### [address] [address] #### ANEU, ADIFF, CBC #### [address] [address] Bili Total 0.3 mg/dL Normal 0.2-1.0 [facility] ([place]) Comment on above: Result Comment: Use of this assay is not recommended for patients undergoing treatment with eltrombopag d ue to the potential for falsely elevated results. Performed By: #### CMP, GFR #### [place] [address] #### ANEU, ADIFF, CBC #### [address] [address] BUN/Creatinine Ratio 16 ratio Normal 7-27 [facility] ([place]) Comment on above: Performed By: #### CMP, GFR #### [place] [address] #### ANEU, ADIFF, CBC #### [address] [address] Calcium [Mass/Vol] 8.8 mg/dL Normal 8.4-10.2 [facility] ([place]) Comment on above: Performed By: #### CMP, GFR #### [place] [address] #### ANEU, ADIFF, CBC #### [address] [address] Chloride [Moles/Vol] 102 mmol/L Normal 98-107 [facility] ([place]) Comment on above: Performed By: #### CMP, GFR #### [address] [address] #### ANEU, ADIFF, CBC #### [address] [address] CO2 [Moles/Vol] 32 mmol/L High 23-31 [facility] ([place]) Comment on above: Performed By: #### CMP, GFR #### [facility] [address] [place], [place] [address] #### ANEU, ADIFF, CBC #### [address] [address] Creatinine [Mass/Vol] 0.87 mg/dL Normal 0.55-1.02 [facility] ([place]) Comment on above: Performed By: #### CMP, GFR #### [place] [address] #### ANEU, ADIFF, CBC #### [address] [address] Electrolyte Balance 6.0 mEq/L Normal [facility] ([place]) Comment on above: Performed By: #### CMP, GFR #### [place] [address] #### ANEU, ADIFF, CBC #### [address] [address] Globulin 3.7 G/dL Normal [facility] ([place]) Comment on above: Performed By: #### CMP, GFR #### [place] [address] #### ANEU, ADIFF, CBC #### [address] [address] Glucose [Mass/Vol] 90 mg/dL Normal 80-115 [facility] ([place]) Comment on above: Performed By: #### CMP, GFR #### [place] [address] #### ANEU, ADIFF, CBC #### [address] [address] Potassium [Moles/Vol] 4.3 mmol/L Normal 3.5-5.1 [facility] ([place]) Comment on above: Performed By: #### CMP, GFR #### [address] [address] #### ANEU, ADIFF, CBC #### [address] [address] Sodium [Moles/Vol] 140 mmol/L Normal 136-145 [facility] ([place]) Comment on above: Performed By: #### CMP, GFR #### [place] [address] #### ANEU, ADIFF, CBC #### [address] [address] Total Protein 6.9 G/dL Normal 6.4-8.2 [facility] ([place]) Comment on above: Performed By: #### CMP, GFR #### [place] [address] #### ANEU, ADIFF, CBC #### [address] [address] Urea nitrogen [Mass/Vol] 14 mg/dL Normal 7-18 [facility] ([place]) Comment on above: Performed By: #### CMP, GFR #### [place] [address] #### ANEU, ADIFF, CBC #### [address] [address] .Auto Diff on 09-20-2020 Basophil, Absolute 0.10 10 3/mcL Normal 0.00-0.19 [facility] ([place]) Comment on above: Performed By: #### CBC, ADIF F, ANEU #### [place] [id number] #### CMP, GFR #### [place] [id number] Basophils/100 WBC (Bld) 0.8 % Normal 0.0-2.5 [facility] ([place]) Comment on above: Performed By: #### CBC, ADIF F, ANEU #### [place] [address] #### CMP, GFR #### [place] [address] Eosinophil, Absolute 0.20 10 3/mcL Normal 0.00-0.40 [facility] ([place]) Comment on above: Performed By: #### CBC, ADIF F, ANEU #### [address] [address] #### CMP, GFR #### [address] [address] Eosinophils/100 WBC (Bld) 1.8 % Normal 0.0-7.0 [facility] ([place]) Comment on above: Performed By: #### CBC, ADIF F, ANEU #### [place] [address] #### CMP, GFR #### [address] [address] Lymphocyte, Absolute 2.40 10 3/mcL Normal 0.77-3.85 [facility] ([place]) Comment on above: Performed By: #### CBC, ADIF F, ANEU #### [place] [address] #### CMP, GFR #### [address] [address] Lymphocytes/100 WBC (Bld) 20.2 % Normal 10.0-50.0 [facility] ([place]) Comment on above: Performed By: #### CBC, ADIF F, ANEU #### [place] [address] #### CMP, GFR #### [address] [address] Monocyte, Absolute 1.10 10 3/mcL High 0.15-1.00 [facility] ([place]) Comment on above: Performed By: #### CBC, ADIF F, ANEU #### [place] [address] #### CMP, GFR #### [address] [address] Monocytes/100 WBC (Bld) 9.5 % Normal 1.7-13.0 [facility] ([place]) Comment on above: Performed By: #### CBC, ADIF F, ANEU #### [place] [address] #### CMP, GFR #### [address] [address] Neutrophils/100 WBC (Bld) 67.7 % Normal 37.0-80.0 [facility] ([place]) Comment on above: Performed By: #### CBC, ADIF F, ANEU #### [place] [id number] [place], [place] [address] #### CMP, GFR #### [facility] [address] [place] [address] .GFR on 09-20-2020 GFR 71 ml/min/1.73sqm Normal [facility] ([place]) Comment on above: Result Comment: GFR Population mean for Afri can Sierra Leonean, Non- Americans Ages 20-29 = 116 mL/min/1.73 sq.m. Ages 30-39 = 107 mL/min/1.73 sq.m. Ages 40-49 = 99 mL/min/1.73 sq.m. Ages 50-59 = 93 mL/min/1.73 sq.m. Ages 60-69 = 85 mL/min/1.73 sq.m. Ages 70+ = 75 mL/min/1.73 sq .m. Chronic Kidney Disease: Less than 60 mL/min/1.73 square meters End Stage Renal Disease: Les s than 15 mL/min/1.73 square meters Performed By: #### CBC, ADIF F, ANEU #### [place] [id number] [place], [place] [address] #### CMP, GFR #### [place] [id number] [place] [address] GFR Non- 59 ml/min/1.73sqm Normal [facility] ([place]) Comment on above: Result Comment: GFR Population mean for Afri can [place] Leonean, Non- Americans Ages 20-29 = 116 mL/min/1.73 sq.m. Ages 30-39 = 107 mL/min/1.73 sq.m. Ages 40-49 = 99 mL/min/1.73 sq.m. Ages 50-59 = 93 mL/min/1.73 sq.m. Ages 60-69 = 85 mL/min/1.73 sq.m. Ages 70+ = 75 mL/min/1.73 sq .m. Chronic Kidney Disease: Less than 60 mL/min/1.73 square meters End Stage Renal Disease: Les s than 15 mL/min/1.73 square meters Performed By: #### CBC, ADIF F, ANEU #### [place] [address] #### CMP, GFR #### [address] [address] .NEUABS on 09-20-2020 Neutrophil, Absolute 7.90 10 3/mcL High 2.85-6.16 [facility] ([place]) Comment on above: Performed By: #### CBC, ADIF F, ANEU #### [place] [address] #### CMP, GFR #### [place] [address] CBC on 09-20-2020 Erythrocyte distribution width 17.5 % High 11.5-14.5 [facility] ([place]) (RBC) [Ratio] Comment on above: Performed By: #### CBC, ADIF F, ANEU #### [place] [address] #### CMP, GFR #### [place] [address] Hematocrit (Bld) [Volume 40.1 % Normal 37.0-47.0 [facility] ([place]) fraction] Comment on above: Performed By: #### CBC, ADIF F, ANEU #### [place] [address] #### CMP, GFR #### [place] [address] Hgb 12.7 G/dL Normal 12.0-16.0 [facility] ([place]) Comment on above: Performed By: #### CBC, ADIF F, ANEU #### [place] [address] #### CMP, GFR #### [place] [address] MCH (RBC) [Entitic mass] 29.4 pg Normal 27.0-31.2 [facility] ([place]) Comment on above: Performed By: #### CBC, ADIF F, ANEU #### [place] [address] #### CMP, GFR #### [place] [address] MCHC 31.7 G/dL Low 33.0-37.0 [facility] ([place]) Comment on above: Performed By: #### CBC, ADIF F, ANEU #### [place] [address] #### CMP, GFR #### [place] [address] MCV (RBC) [Entitic vol] 92.7 fL Normal 80.0-94.0 [facility] ([place]) Comment on above: Performed By: #### CBC, ADIF F, ANEU #### [place] [address] #### CMP, GFR #### [place] [address] Platelet 335 10 3/mcL Normal 130-400 [facility] ([place]) Comment on above: Performed By: #### CBC, ADIF F, ANEU #### [place] [address] #### CMP, GFR #### [place] [address] Platelet mean volume (Bld) 9.6 fL Normal 7.4-10.4 [facility] ([place]) [Entitic vol] Comment on above: Performed By: #### CBC, ADIF F, ANEU #### [place] [address] #### CMP, GFR #### [place] [address] RBC 4.33 10 6/mcL Normal 4.20-5.40 [facility] ([place]) Comment on above: Performed By: #### CBC, ADIF F, ANEU #### [place] [address] #### CMP, GFR #### [place] [address] WBC 11.60 10 3/mcL High 4.60-10.80 [facility] ([place]) Comment on above: Performed By: #### CBC, ADIF F, ANEU #### [address] [address] #### CMP, GFR #### [address] [address] CMP on 09-20-2020 Albumin Level 2.9 G/dL Low 3.4-4.8 [facility] ([place]) Comment on above: Performed By: #### CBC, ADIF F, ANEU #### [place] [address] #### CMP, GFR #### [place] [address] Albumin/Globulin [Mass ratio] 0.8 {ratio} Low 1.1-2.5 [facility] ([place]) Comment on above: Performed By: #### CBC, ADIF F, ANEU #### [address] [address] #### CMP, GFR #### [place] [id number] ALP [Catalytic activity/Vol] 103 U/L Normal 40-135 [facility] ([place]) Comment on above: Performed By: #### CBC, ADIF F, ANEU #### [place] [address] #### CMP, GFR #### [address] [address] ALT [Catalytic activity/Vol] 32 U/L Normal 14-59 [facility] ([place]) Comment on above: Performed By: #### CBC, ADIF F, ANEU #### [place] [address] #### CMP, GFR #### [address] [address] AST [Catalytic activity/Vol] 18 U/L Normal 10-40 [facility] ([place]) Comment on above: Performed By: #### CBC, ADIF F, ANEU #### [address] [address] #### CMP, GFR #### [address] [address] Bili Total 0.3 mg/dL Normal 0.2-1.0 [facility] ([place]) Comment on above: Result Comment: Use of this assay is not recommended for patients undergoing treatment with eltrombopag d ue to the potential for falsely elevated results. Performed By: #### CBC, ADIF F, ANEU #### [address] [address] #### CMP, GFR #### [address] [address] BUN/Creatinine Ratio 21 ratio Normal 7-27 [facility] ([place]) Comment on above: Performed By: #### CBC, ADIF F, ANEU #### [place] [address] #### CMP, GFR #### [address] [address] Calcium [Mass/Vol] 8.9 mg/dL Normal 8.4-10.2 [facility] ([place]) Comment on above: Performed By: #### CBC, ADIF F, ANEU #### [address] [address] #### CMP, GFR #### [address] [address] Chloride [Moles/Vol] 105 mmol/L Normal 98-107 [facility] ([place]) Comment on above: Performed By: #### CBC, ADIF F, ANEU #### [place] [address] #### CMP, GFR #### [address] [address] CO2 [Moles/Vol] 29 mmol/L Normal 23-31 [facility] ([place]) Comment on above: Performed By: #### CBC, ADIF F, ANEU #### [address] [address] #### CMP, GFR #### [address] [address] Creatinine [Mass/Vol] 0.96 mg/dL Normal 0.55-1.02 [facility] ([place]) Comment on above: Performed By: #### CBC, ADIF F, ANEU #### [address] [address] #### CMP, GFR #### [address] [address] Electrolyte Balance 8.0 mEq/L Normal [facility] ([place]) Comment on above: Performed By: #### CBC, ADIF F, ANEU #### [address] [address] #### CMP, GFR #### [address] [address] Globulin 3.5 G/dL Normal [facility] ([place]) Comment on above: Performed By: #### CBC, ADIF F, ANEU #### [address] [address] #### CMP, GFR #### [address] [address] Glucose [Mass/Vol] 82 mg/dL Normal 80-115 [facility] ([place]) Comment on above: Performed By: #### CBC, ADIF F, ANEU #### [place] [address] #### CMP, GFR #### [address] [address] Potassium [Moles/Vol] 4.5 mmol/L Normal 3.5-5.1 [facility] ([place]) Comment on above: Performed By: #### CBC, ADIF F, ANEU #### [address] [address] #### CMP, GFR #### [address] [address] Sodium [Moles/Vol] 142 mmol/L Normal 136-145 [facility] ([place]) Comment on above: Performed By: #### CBC, ADIF F, ANEU #### [address] [address] #### CMP, GFR #### [address] [address] Total Protein 6.4 G/dL Normal 6.4-8.2 [facility] ([place]) Comment on above: Performed By: #### CBC, ADIF F, ANEU #### [place] [address] #### CMP, GFR #### [place] [address] Urea nitrogen [Mass/Vol] 20 mg/dL High 7-18 [facility] ([place]) Comment on above: Performed By: #### CBC, ADIF F, ANEU #### [place] [address] #### CMP, GFR #### [address] [address] .Auto Diff on 05-14-2020 Basophil, Absolute 0.10 10 3/mcL Normal 0.00-0.19 [facility] ([place]) Comment on above: Performed By: #### CBC, ADIF F, ANEU #### [place] [id number] #### CMP, GFR #### [address] [address] Basophils/100 WBC (Bld) 0.9 % Normal 0.0-2.5 [facility] ([place]) Comment on above: Performed By: #### CBC, ADIF F, ANEU #### [place] [address] #### CMP, GFR #### [address] [address] Eosinophil, Absolute 0.30 10 3/mcL Normal 0.00-0.40 [facility] ([place]) Comment on above: Performed By: #### CBC, ADIF F, ANEU #### [address] [address] #### CMP, GFR #### [address] [address] Eosinophils/100 WBC (Bld) 2.5 % Normal 0.0-7.0 [facility] ([place]) Comment on above: Performed By: #### CBC, ADIF F, ANEU #### [address] [address] #### CMP, GFR #### [address] [address] Lymphocyte, Absolute 2.20 10 3/mcL Normal 0.77-3.85 [facility] ([place]) Comment on above: Performed By: #### CBC, ADIF F, ANEU #### [place] [address] #### CMP, GFR #### [address] [address] Lymphocytes/100 WBC (Bld) 16.1 % Normal 10.0-50.0 [facility] ([place]) Comment on above: Performed By: #### CBC, ADIF F, ANEU #### [place] [address] #### CMP, GFR #### [address] [address] Monocyte, Absolute 1.00 10 3/mcL Normal 0.15-1.00 [facility] ([place]) Comment on above: Performed By: #### CBC, ADIF F, ANEU #### [place] [id number] #### CMP, GFR #### [address] [address] Monocytes/100 WBC (Bld) 7.1 % Normal 1.7-13.0 [facility] ([place]) Comment on above: Performed By: #### CBC, ADIF F, ANEU #### [place] [id number] #### CMP, GFR #### [address] [address] Neutrophils/100 WBC (Bld) 73.4 % Normal 37.0-80.0 [facility] ([place]) Comment on above: Performed By: #### CBC, ADIF F, ANEU #### [place] [id number] [place], [place] [address] #### CMP, GFR #### [address] [address] .GFR on 05-14-2020 GFR Non- 63 ml/min/1.73sqm Normal [facility] ([place]) Comment on above: Result Comment: GFR Population mean for Afri can Sierra Leonean, Non- Americans Ages 20-29 = 116 mL/min/1.73 sq.m. Ages 30-39 = 107 mL/min/1.73 sq.m. Ages 40-49 = 99 mL/min/1.73 sq.m. Ages 50-59 = 93 mL/min/1.73 sq.m. Ages 60-69 = 85 mL/min/1.73 sq.m. Ages 70+ = 75 mL/min/1.73 sq .m. Chronic Kidney Disease: Less than 60 mL/min/1.73 square meters End Stage Renal Disease: Les s than 15 mL/min/1.73 square meters Performed By: #### CBC, ADIF F, ANEU #### [place] [address] [address] #### CMP, GFR #### [address] [address] GFR 77 ml/min/1.73sqm Normal [facility] ([place]) Comment on above: Result Comment: GFR Population mean for Afri can [place]an, Non- Americans Ages 20-29 = 116 mL/min/1.73 sq.m. Ages 30-39 = 107 mL/min/1.73 sq.m. Ages 40-49 = 99 mL/min/1.73 sq.m. Ages 50-59 = 93 mL/min/1.73 sq.m. Ages 60-69 = 85 mL/min/1.73 sq.m. Ages 70+ = 75 mL/min/1.73 sq .m. Chronic Kidney Disease: Less than 60 mL/min/1.73 square meters End Stage Renal Disease: Les s than 15 mL/min/1.73 square meters Performed By: #### CBC, ADIF F, ANEU #### [place] [address] #### CMP, GFR #### [address] [address] .NEUABS on 05-14-2020 Neutrophil, Absolute 9.90 10 3/mcL High 2.85-6.16 [facility] ([place]) Comment on above: Performed By: #### CBC, ADIF F, ANEU #### [place] [address] #### CMP, GFR #### [place] [address] CBC on 05-14-2020 Erythrocyte distribution width 13.9 % Normal 11.5-14.5 [facility] (RBC) [Ratio] ([place]) Comment on above: Performed By: #### CBC, ADIF F, ANEU #### [place] [address] #### CMP, GFR #### [place] [address] Hematocrit (Bld) [Volume 34.5 % Low 37.0-47.0 [facility] ([place]) fraction] Comment on above: Performed By: #### CBC, ADIF F, ANEU #### [place] [address] #### CMP, GFR #### [place] [address] Hgb 11.1 G/dL Low 12.0-16.0 [facility] ([place]) Comment on above: Performed By: #### CBC, ADIF F, ANEU #### [place] [address] #### CMP, GFR #### [place] [address] MCH (RBC) [Entitic mass] 30.9 pg Normal 27.0-31.2 [facility] ([place]) Comment on above: Performed By: #### CBC, ADIF F, ANEU #### [place] [address] #### CMP, GFR #### [place] [address] MCHC 32.1 G/dL Low 33.0-37.0 [facility] ([place]) Comment on above: Performed By: #### CBC, ADIF F, ANEU #### [place] [address] #### CMP, GFR #### [place] [address] MCV (RBC) [Entitic vol] 96.3 fL High 80.0-94.0 [facility] ([place]) Comment on above: Performed By: #### CBC, ADIF F, ANEU #### [place] [address] #### CMP, GFR #### [place] [address] Platelet 401 10 3/mcL High 130-400 [facility] ([place]) Comment on above: Performed By: #### CBC, ADIF F, ANEU #### [place] [address] #### CMP, GFR #### [place] [address] Platelet mean volume (Bld) 8.4 fL Normal 7.4-10.4 [facility] ([place]) [Entitic vol] Comment on above: Performed By: #### CBC, ADIF F, ANEU #### [place] [address] #### CMP, GFR #### [place] [address] RBC 3.58 10 6/mcL Low 4.20-5.40 [facility] ([place]) Comment on above: Performed By: #### CBC, ADIF F, ANEU #### [place] [address] #### CMP, GFR #### [place] [address] WBC 13.50 10 3/mcL High 4.60-10.80 [facility] ([place]) Comment on above: Performed By: #### CBC, ADIF F, ANEU #### [address] [address] #### CMP, GFR #### [place] [address] CMP on 05-14-2020 Albumin Level 3.0 G/dL Low 3.4-4.8 [facility] ([place]) Comment on above: Performed By: #### CBC, ADIF F, ANEU #### [place] [address] #### CMP, GFR #### [place] [address] Albumin/Globulin [Mass ratio] 0.8 {ratio} Low 1.1-2.5 [facility] ([place]) Comment on above: Performed By: #### CBC, ADIF F, ANEU #### [place] [address] #### CMP, GFR #### [place] [address] ALP [Catalytic activity/Vol] 104 U/L Normal 40-135 [facility] ([place]) Comment on above: Performed By: #### CBC, ADIF F, ANEU #### [place] [address] #### CMP, GFR #### [place] [address] ALT [Catalytic activity/Vol] 13 U/L Low 14-59 [facility] ([place]) Comment on above: Performed By: #### CBC, ADIF F, ANEU #### [place] [address] #### CMP, GFR #### [place] [id number] AST [Catalytic activity/Vol] 12 U/L Normal 10-40 [facility] ([place]) Comment on above: Performed By: #### CBC, ADIF F, ANEU #### [address] [address] #### CMP, GFR #### [address] [address] Bili Total 0.3 mg/dL Normal 0.2-1.0 [facility] ([place]) Comment on above: Result Comment: Use of this assay is not recommended for patients undergoing treatment with eltrombopag d ue to the potential for falsely elevated results. Performed By: #### CBC, ADIF F, ANEU #### [address] [address] #### CMP, GFR #### [address] [address] BUN/Creatinine Ratio 14 ratio Normal 7-27 [facility] ([place]) Comment on above: Performed By: #### CBC, ADIF F, ANEU #### [place] [address] #### CMP, GFR #### [address] [address] Calcium [Mass/Vol] 9.2 mg/dL Normal 8.4-10.2 [facility] ([place]) Comment on above: Performed By: #### CBC, ADIF F, ANEU #### [address] [address] #### CMP, GFR #### [address] [address] Chloride [Moles/Vol] 101 mmol/L Normal 98-107 [facility] ([place]) Comment on above: Performed By: #### CBC, ADIF F, ANEU #### [place] [address] #### CMP, GFR #### [address] [address] CO2 [Moles/Vol] 29 mmol/L Normal 23-31 [facility] ([place]) Comment on above: Performed By: #### CBC, ADIF F, ANEU #### [address] [address] #### CMP, GFR #### [address] [address] Creatinine [Mass/Vol] 0.90 mg/dL Normal 0.55-1.02 [facility] ([place]) Comment on above: Performed By: #### CBC, ADIF F, ANEU #### [address] [address] #### CMP, GFR #### [address] [address] Electrolyte Balance 10.0 mEq/L Normal [facility] ([place]) Comment on above: Performed By: #### CBC, ADIF F, ANEU #### [place] [address] #### CMP, GFR #### [place] [id number] Globulin 3.8 G/dL Normal [facility] ([place]) Comment on above: Performed By: #### CBC, ADIF F, ANEU #### [place] [address] #### CMP, GFR #### [address] [address] Glucose [Mass/Vol] 106 mg/dL Normal 80-115 [facility] ([place]) Comment on above: Performed By: #### CBC, ADIF F, ANEU #### [place] [address] #### CMP, GFR #### [address] [address] Potassium [Moles/Vol] 4.5 mmol/L Normal 3.5-5.1 [facility] ([place]) Comment on above: Performed By: #### CBC, ADIF F, ANEU #### [address] [address] #### CMP, GFR #### [place] [id number] Sodium [Moles/Vol] 140 mmol/L Normal 136-145 [facility] ([place]) Comment on above: Performed By: #### CBC, ADIF F, ANEU #### [place] [address] #### CMP, GFR #### [address] [address] Total Protein 6.8 G/dL Normal 6.4-8.2 [facility] ([place]) Comment on above: Performed By: #### CBC, ADIF F, ANEU #### [place] [address] #### CMP, GFR #### [place] [address] Urea nitrogen [Mass/Vol] 13 mg/dL Normal 7-18 [facility] ([place]) Comment on above: Performed By: #### CBC, ADIF F, ANEU #### [place] [address] #### CMP, GFR #### [address] [address] .Auto Diff on 02-27-2020 Basophil, Absolute 0.10 10 3/mcL Normal 0.00-0.19 [facility] ([place]) Comment on above: Performed By: #### CBC, ADIF F, ANEU #### [place] [id number] #### CMP, GFR #### [address] [address] Basophils/100 WBC (Bld) 0.9 % Normal 0.0-2.5 [facility] ([place]) Comment on above: Performed By: #### CBC, ADIF F, ANEU #### [place] [address] #### CMP, GFR #### [address] [address] Eosinophil, Absolute 0.20 10 3/mcL Normal 0.00-0.40 [facility] ([place]) Comment on above: Performed By: #### CBC, ADIF F, ANEU #### [address] [address] #### CMP, GFR #### [address] [address] Eosinophils/100 WBC (Bld) 2.4 % Normal 0.0-7.0 [facility] ([place]) Comment on above: Performed By: #### CBC, ADIF F, ANEU #### [address] [address] #### CMP, GFR #### [address] [address] Lymphocyte, Absolute 1.90 10 3/mcL Normal 0.77-3.85 [facility] ([place]) Comment on above: Performed By: #### CBC, ADIF F, ANEU #### [place] [address] #### CMP, GFR #### [address] [address] Lymphocytes/100 WBC (Bld) 18.7 % Normal 10.0-50.0 [facility] ([place]) Comment on above: Performed By: #### CBC, ADIF F, ANEU #### [place] [address] #### CMP, GFR #### [address] [address] Monocyte, Absolute 0.70 10 3/mcL Normal 0.15-1.00 [facility] ([place]) Comment on above: Performed By: #### CBC, ADIF F, ANEU #### [place] [id number] #### CMP, GFR #### [address] [address] Monocytes/100 WBC (Bld) 7.2 % Normal 1.7-13.0 [facility] ([place]) Comment on above: Performed By: #### CBC, ADIF F, ANEU #### [place] [id number] #### CMP, GFR #### [address] [address] Neutrophils/100 WBC (Bld) 70.8 % Normal 37.0-80.0 [facility] ([place]) Comment on above: Performed By: #### CBC, ADIF F, ANEU #### [place] [id number] [place], [place] [address] #### CMP, GFR #### [address] [address] .GFR on 02-27-2020 GFR Non- 63 ml/min/1.73sqm Normal [facility] ([place]) Comment on above: Result Comment: GFR Population mean for Afri can [place]an, Non- Americans Ages 20-29 = 116 mL/min/1.73 sq.m. Ages 30-39 = 107 mL/min/1.73 sq.m. Ages 40-49 = 99 mL/min/1.73 sq.m. Ages 50-59 = 93 mL/min/1.73 sq.m. Ages 60-69 = 85 mL/min/1.73 sq.m. Ages 70+ = 75 mL/min/1.73 sq .m. Chronic Kidney Disease: Less than 60 mL/min/1.73 square meters End Stage Renal Disease: Les s than 15 mL/min/1.73 square meters Performed By: #### CBC, ADIF F, ANEU #### [place] [id number] [place], [place] [address] #### CMP, GFR #### [address] [address] GFR 77 ml/min/1.73sqm Normal [facility] ([place]) Comment on above: Result Comment: GFR Population mean for Afri can [place]an, Non- Americans Ages 20-29 = 116 mL/min/1.73 sq.m. Ages 30-39 = 107 mL/min/1.73 sq.m. Ages 40-49 = 99 mL/min/1.73 sq.m. Ages 50-59 = 93 mL/min/1.73 sq.m. Ages 60-69 = 85 mL/min/1.73 sq.m. Ages 70+ = 75 mL/min/1.73 sq .m. Chronic Kidney Disease: Less than 60 mL/min/1.73 square meters End Stage Renal Disease: Les s than 15 mL/min/1.73 square meters Performed By: #### CBC, ADIF F, ANEU #### [place] [address] #### CMP, GFR #### [place] [address] .NEUABS on 02-27-2020 Neutrophil, Absolute 7.30 10 3/mcL High 2.85-6.16 [facility] ([place]) Comment on above: Performed By: #### CBC, ADIF F, ANEU #### [place] [address] #### CMP, GFR #### [place] [address] CBC on 02-27-2020 Erythrocyte distribution width 16.1 % High 11.5-14.5 [facility] ([place]) (RBC) [Ratio] Comment on above: Performed By: #### CBC, ADIF F, ANEU #### [place] [address] #### CMP, GFR #### [place] [address] Hematocrit (Bld) [Volume 32.7 % Low 37.0-47.0 [facility] ([place]) fraction] Comment on above: Performed By: #### CBC, ADIF F, ANEU #### [place] [address] #### CMP, GFR #### [place] [address] Hgb 10.4 G/dL Low 12.0-16.0 [facility] ([place]) Comment on above: Performed By: #### CBC, ADIF F, ANEU #### [place] [address] #### CMP, GFR #### [place] [address] MCH (RBC) [Entitic mass] 30.7 pg Normal 27.0-31.2 [facility] ([place]) Comment on above: Performed By: #### CBC, ADIF F, ANEU #### [place] [address] #### CMP, GFR #### [place] [address] MCHC 31.9 G/dL Low 33.0-37.0 [facility] ([place]) Comment on above: Performed By: #### CBC, ADIF F, ANEU #### [place] [address] #### CMP, GFR #### [place] [address] MCV (RBC) [Entitic vol] 96.2 fL High 80.0-94.0 [facility] ([place]) Comment on above: Performed By: #### CBC, ADIF F, ANEU #### [place] [address] #### CMP, GFR #### [place] [address] Platelet 402 10 3/mcL High 130-400 [facility] ([place]) Comment on above: Performed By: #### CBC, ADIF F, ANEU #### [place] [address] #### CMP, GFR #### [place] [address] Platelet mean volume (Bld) 8.1 fL Normal 7.4-10.4 [facility] ([place]) [Entitic vol] Comment on above: Performed By: #### CBC, ADIF F, ANEU #### [place] [address] #### CMP, GFR #### [place] [address] RBC 3.40 10 6/mcL Low 4.20-5.40 [facility] ([place]) Comment on above: Performed By: #### CBC, ADIF F, ANEU #### [place] [address] #### CMP, GFR #### [place] [address] WBC 10.30 10 3/mcL Normal 4.60-10.80 [facility] ([place]) Comment on above: Performed By: #### CBC, ADIF F, ANEU #### [address] [address] #### CMP, GFR #### [address] [address] CMP on 02-27-2020 Albumin Level 3.0 G/dL Low 3.4-4.8 [facility] ([place]) Comment on above: Performed By: #### CBC, ADIF F, ANEU #### [place] [address] #### CMP, GFR #### [place] [address] Albumin/Globulin [Mass ratio] 0.9 {ratio} Low 1.1-2.5 [facility] ([place]) Comment on above: Performed By: #### CBC, ADIF F, ANEU #### [address] [address] #### CMP, GFR #### [address] [address] ALP [Catalytic activity/Vol] 92 U/L Normal 40-135 [facility] ([place]) Comment on above: Performed By: #### CBC, ADIF F, ANEU #### [place] [address] #### CMP, GFR #### [address] [address] ALT [Catalytic activity/Vol] 19 U/L Normal 14-59 [facility] ([place]) Comment on above: Performed By: #### CBC, ADIF F, ANEU #### [place] [address] #### CMP, GFR #### [address] [address] AST [Catalytic activity/Vol] 15 U/L Normal 10-40 [facility] ([place]) Comment on above: Performed By: #### CBC, ADIF F, ANEU #### [address] [address] #### CMP, GFR #### [address] [address] Bili Total 0.6 mg/dL Normal 0.2-1.0 [facility] ([place]) Comment on above: Result Comment: Use of this assay is not recommended for patients undergoing treatment with eltrombopag d ue to the potential for falsely elevated results. Performed By: #### CBC, ADIF F, ANEU #### [address] [address] #### CMP, GFR #### [address] [address] BUN/Creatinine Ratio 17 ratio Normal 7-27 [facility] ([place]) Comment on above: Performed By: #### CBC, ADIF F, ANEU #### [place] [address] #### CMP, GFR #### [address] [address] Calcium [Mass/Vol] 9.0 mg/dL Normal 8.4-10.2 [facility] ([place]) Comment on above: Performed By: #### CBC, ADIF F, ANEU #### [address] [address] #### CMP, GFR #### [address] [address] Chloride [Moles/Vol] 101 mmol/L Normal 98-107 [facility] ([place]) Comment on above: Performed By: #### CBC, ADIF F, ANEU #### [address] [address] #### CMP, GFR #### [address] [address] CO2 [Moles/Vol] 30 mmol/L Normal 23-31 [facility] ([place]) Comment on above: Performed By: #### CBC, ADIF F, ANEU #### [address] [address] #### CMP, GFR #### [address] [address] Creatinine [Mass/Vol] 0.90 mg/dL Normal 0.55-1.02 [facility] ([place]) Comment on above: Performed By: #### CBC, ADIF F, ANEU #### [address] [address] #### CMP, GFR #### [address] [address] Electrolyte Balance 8.0 mEq/L Normal [facility] ([place]) Comment on above: Performed By: #### CBC, ADIF F, ANEU #### [address] [address] #### CMP, GFR #### [address] [address] Globulin 3.5 G/dL Normal [facility] ([place]) Comment on above: Performed By: #### CBC, ADIF F, ANEU #### [address] [address] #### CMP, GFR #### [address] [address] Glucose [Mass/Vol] 111 mg/dL Normal 80-115 [facility] ([place]) Comment on above: Performed By: #### CBC, ADIF F, ANEU #### [place] [address] #### CMP, GFR #### [address] [address] Potassium [Moles/Vol] 4.6 mmol/L Normal 3.5-5.1 [facility] ([place]) Comment on above: Performed By: #### CBC, ADIF F, ANEU #### [address] [address] #### CMP, GFR #### [address] [address] Sodium [Moles/Vol] 139 mmol/L Normal 136-145 [facility] ([place]) Comment on above: Performed By: #### CBC, ADIF F, ANEU #### [address] [address] #### CMP, GFR #### [address] [address] Total Protein 6.5 G/dL Normal 6.4-8.2 [facility] ([place]) Comment on above: Performed By: #### CBC, ADIF F, ANEU #### [address] [address] #### CMP, GFR #### [address] [address] Urea nitrogen [Mass/Vol] 15 mg/dL Normal 7-18 [facility] ([place]) Comment on above: Performed By: #### CBC, ADIF F, ANEU #### [address] [address] #### CMP, GFR #### [address] [address] ANES POST on 10-09-2019 ANES POST HNO ID: [id number] [facility] Author: Luis Antonio Gamble Service: ? Author Type: Physician Type: Anesthesia PostOp Filed: 10/09/2019 11:02 AM Note Text: POST ANESTHESIA EVALUATION NOTE SERVICE DATE: 10/09/2019 SERVICE TIME: 11:00 : 1955 Vitals: 10/09/19 0735 10/09/19 0912 Temp: 36.8 ?C (98.2 ?F) 36.3 ?C (97.3 ?F) 10/09/19 0912 10/09/19 0915 10/09/19 0930 10/09/19 0945 BP: 154/81 154/81 124/88 153/87 10/09/19 0912 10/09/19 0915 10/09/19 0930 10/09/19 0945 Pulse: 86 85 85 85 10/09/19 0912 10/09/19 0915 10/09/19 0930 10/09/19 0945 Resp: (!) 32 27 27 24 10/09/19 0912 10/09/19 0915 10/09/19 0930 10/09/19 0945 SpO2: 97% 99% 100% 100% Validated Vital Signs: Yes POST ANES STATUS: No apparent anesthetic complications . The patient is appropriately hydrated with stable respiratory and car diovascular status. Patient has safe and adequate airway control. The valeria ent has appropriate pain relief and no significant post operative nausea o r vomiting. The patient has achieved baseline mental status. Intra-Operative Events: No Significant Anesthesia Even ts Further assessment by Anesthesia Service: None Other Remarks: SIGNATURE: Luis Antonio Gamble MD PATIENT NAME: Viviana Pires ar DATE: October 09, 2019 TIME: 11:01 AM PAGER/CONTACT #: ANES PREOP on 10-09-2019 ANES PREOP HNO ID: [id number] Normal [place] [facility] Author: Luis Antonio Gamble Service: ? Author Type: Physician Type: Anesthesia PreOp Filed: 10/09/2019 8:18 AM Note Text: ANESTHESIOLOGY DAY OF SURGERY NOTE SERVICE DATE: 10/09/2019 SERVICE TIME: 8:17 : 1955 Procedure(s) (LRB): COLONOSCOPY (N/A) EGD (N/A) Surgeon(s): Jourdan Ruiz Estimated body mass index is 29.7 kg/m? as calculated from the following: Height as of this encounter: 162.6 cm (5' 4 ). Weight as of this encounter: 78.5 kg (173 lb). 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 (Hcc) [facility] Current Use of Immunosuppressive Drug Paroxysmal Atrial Fibrillation (Hcc) Hyperthyroidism Normocytic Anemia Pre-Diabetes Current Chronic Use of Systemic Steroids Rheumatoid Arthritis (Hcc) 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 - Hyperglycemia 12/25/2016 - Hyperthyroidism 05/10/2017 [place] - Rheumatoid arthritis (HCC) Leflunomide. Dayanna Silva MD. 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 - Heart Sister Social History: Social History Tobacco Use - Smoking status: Former Smoker Packs/day: 0.50 Years: 30.00 Pack years: 15.00 Start date: 01/01/1970 Last attempt to quit: 09/09/2010 Years since quittin.0 - Smokeless tobacco: Never Used Substance Use Topics - Alcohol use: No - Drug use: No No current facility-administered medications on file p rior to encounter. Current Outpatient Medications on File Prior to Encoun ter Medication Sig - metoprolol succinate ER (TOPROL XL) 50 mg 24 hr tabl et Take 1 tablet by mouth once daily. - metFORMIN ER (GLUCOPHAGE XR) 500 mg 24 hr tablet Shelley e 1 tablet by mouth once daily. - predniSONE (DELTASONE) 10 mg tablet Take 10 mg by mo [facility] once daily as needed. - rivaroxaban (XARELTO) 20 mg tablet Take 1 tablet by mouth daily with dinner. - budesonide (PULMICORT) 0.5 mg/2 mL nebulizer solutio n Use 2 mL via nebulizer once daily. INHALE 2 ML BY NEBULIZER OVER 5- 15 MINUTES EVERY 12 HOURS. - ipratropium-albuterol (DUONEB) 0.5 mg-3 mg(2.5 mg ba se)/3 mL nebu Inhale 3 mL as instructed four times daily. - gabapentin (NEURONTIN) 100 mg capsule Take 100 mg by mouth three times daily. - guaiFENesin (MUCINEX) 600 mg 12 hr tablet Take 1,200 mg by mouth twice daily. - leflunomide (ARAVA) 10 mg tablet Take 1 tablet by [facility] once daily. - acetaminophen (TYLENOL EXTRA STRENGTH) 500 mg tablet Take 1,000 mg by mouth every 6 hours as needed. - ferrous gluconate 324 mg (37.5 mg iron) tablet Take 1 tablet by mouth twice daily with meals. - COMPOUNDED PRESCRIPTION Provide nebulizer accessory kit. DME: Mohit. - COMPOUNDED PRESCRIPTION Accessories for nebulizer J43.1 Panlobular emphysema (HCC) (primary encounter di agnosis) J84.9 ILD (interstitial lung disease) (HCC) - COMPOUNDED PRESCRIPTION #1 Continuous Flow Stationar y O2 Concentrator Sig: O2 2l/min liter flow Patient is to keep portablel concentrator as well J43.2 Centrilobular emphysema (HCC) J84.9 ILD (interstitial lung disease) (HCC) J96.11 Chronic respiratory failure with hypoxia (HCC) - fluticasone (FLONASE) 50 mcg/actuation nasal spray U se 2 Sprays in each nostril once daily. Rinse mouth after use. - COMPOUNDED PRESCRIPTION Based on 6 minute walk in Ap r[place] 2018, patient requires 2 L continuous supplemental oxygen. DME: Estefani donaldson. - albuterol HFA (PROVENTIL HFA) 90 mcg/actuation inhal er Inhale 2 Puffs as instructed every 4 hours as needed. - COMPOUNDED PRESCRIPTION Face mask: hypoxia - COMPOUNDED PRESCRIPTION Portable oxygen concentrator , setting 2 at rest, setting 3 with ambulation. - COMPOUNDED PRESCRIPTION Evaluate patient for portabl e pulse dose O2 concentrator. - COMPOUNDED PRESCRIPTION Portable oxygen concentrator . Current Facility-Administered Medications Medication Dose Route Frequency Provider Last Rate Las t Dose - lidocaine 10 mg/mL (1 %) 1-2 mg injection (XYLOCAINE ) 0.1-0.2 mL INTRADERMAL PRN Indira (Mortgage Specialist) Matthias - lactated ringers infusion 50 mL/hr INTRAVENOUS CYNDY TIRSO Jacobson (Mortgage Specialist) Matthias 50 mL/hr at 10/09/19 0742 50 mL/hr at 10/09/19 0742 Allergies: ALLERGIES Allergen Reactions - Ragweed Other: See Comments - Trees Other: See Comments DOS EXAM: Adequate NPO status: Yes Anesthetic risks, benefits, alternatives, personnel an d consent discussed: Yes Patient agrees to proceed: Yes Previous Anesthesia: No history of adverse event. Airway Assessment: MP 2; Neck ROM: Full ROM without ne urologic symptoms; Airway Evaluation: Short Neck, Thick neck and Small Mo uth Opening Symptoms of Sleep Apnea: Snoring, BMI > 35, Age over 5 0 (64 year old) and Neck circumference > 15.75 inches Dentition: Chipped, loose and/or missing Additional Physical Exam: Lungs: normal vesicular breath sounds Cardiac: normal S1 and S2; no rubs, no murmurs, and no gallops Additional Pertinent Findings: N/A Blood Products: Not anticipated for this procedure. Anesthetic Plan: MAC with Sedation Pain Management Plan: Parenteral or Oral ASA Class: 3 Other Medical Problems: None Chronic Beta Ruby medication administered within 24 hours: N/A I have interviewed and examined the patient. I have re viewed the medical record and/or the pre-anesthesia evaluation, pertinent labs, and test results. Significant changes in the patient's condition since t he History and Physical, not otherwise documented in primary service progress notes: No This contains updated information obtained within 48 h ours of Surgery/Procedure. SIGNATURE: Luis Antonio Gamble MD PATIENT NAME: Viviana Pires brendan DATE: October 09, 2019 TIME: 8:17 AM CSN: [id number] HISTORY PHYSICAL on 10-09-2019 HISTORY PHYSICAL HNO ID: [id number] [facility] Author: Jourdan Ruiz Service: General Surgery Author Type: Physician Type: HANDP Filed: 10/09/2019 7:41 AM Note Text: This Team Access Model visit is a phone encounter.? It required patient-provider interaction for the medical decision making as documented below. ? ? Viviana Piresbrendan 1955 ? REFERRING PHYSICIAN: Alexa Becerra (Andrea* ? CHIEF COMPLAINT: Established Patient -update/preop dis cussion for endoscopy ? HPI: The patient is a 64 year old female referred for evaluation of iron deficiency anemia. Patient was previously evaluated by Betzaida Bhardwaj CNP on 06/22/2019, notes reviewed. Per Betzaida's HANDP at that time: ? Viviana Santana a 63 year old female who is?returning to set up procedures. I saw her 03/10/19, ?in?consultation requested by Dr. Almanza for an opinion regarding anemia. ??She declined procedures until afte r seeing Rufino in May.?The patient denies a family history of colon cancer. The patient has never underwent screening colonoscopy. ? The patient has a history of chronic prednisone use (n ow only as needed), multiple lung nodules,?seeing Dr. Freeman. Uses O2 con tinuously, CESAR, but not using CPAP, chronic atrial fibrillation (on Xarelt o), diabetes, RA, chronic immunosuppressant drug therapy. ? Component Latest Ref Rng AND Units 01/04/2019 9 WBC 3.70 - 11.00 k/uL 14.41 (H) 13.85 (H) RBC 3.90 - 5.20 m/uL 3.81 (L) 3.52 (L) Hemoglobin 11.5 - 15.5 g/dL 11.7 10.4 (L) Hematocrit 36.0 - 46.0 % 39.2 36.6 MCV 80.0 - 100.0 fL 102.9 (H) 104.0 (H) MCH 26.0 - 34.0 pG 30.7 29.5 MCHC 30.5 - 36.0 g/dL 29.8 (L) 28.4 (L) RDW-CV 11.5 - 15.0 % 12.8 14.6 Platelet Count 150 - 400 k/uL 404 (H) 314 MPV 9.0 - 12.7 fL 10.1 10.3 Neut% % 82.0 87.6 Abs Neut (ANC) 1.45 - 7.50 k/uL 11.83 (H) 12.12 (H) Lymph% % 12.1 8.0 Abs Lymph 1.00 - 4.00 k/uL 1.74 1.11 Washburn% % 4.0 3.2 Abs Washburn <0.87 k/uL 0.57 0.44 Eosin% % 1.1 0.6 Abs Eosin ? <0.46 k/uL 0.16 0.09 Baso% % 0.8 0.6 Abs Baso <0.11 k/uL 0.11 (H) 0.09 Nucleated Reds 0 /100 WBC 0.0 0.0 Absolute nRBC <0.01 k/uL <0.01 <0.01 Diff Type ? Auto Diff Auto Diff CBC was ordered 06/16, but not done. ? Component Latest Ref Rng AND Units 02/14/2019 0 Iron 41 - 186 ug/dL 27 (L) 20 (L) TIBC 232 - 386 ug/dL 263 264 Transferrin Saturation 15 - 57 % 10 (L) 8 (L) ? Component Latest Ref Rng AND Units 11/30/2018 Occult Blood, Stool Negative Negative ? ? Presenting complaint: The patient presents today that she is taking?a different?iron supplement twice a day.?She started michele t 2 days ago. ?The previous one gave her loose stools. Reporting that she has a bowel movement at least once a day, sometimes twice. ?No blo od. ?No abdominal pain. ? She reports occasional heartburn. She takes an OTC ant acid with relief. ?No dysphagia, nausea or vomiting. ? ?Patient was scheduled to undergo upper and lower endo scopy with MAC in [place] in July 2019, but this was postponed due to go vernment mandate because of COVID-19. Patient is now rescheduled to hav e procedures with Dr. Ruiz in [place] on 10/09/2019. ? The patient denies any significant change to her overa health since her last visit. Denies any new complaints or recent hospit alizations. ? PAST MEDICAL HISTORY PAST MEDICAL HISTORY Diagnosis Date - Asthma ? - Atrial fibrillation (HCC) 04/26/2017 - COPD (chronic obstructive pulmonary disease) (HCC) ? ? Chronic bronchitis by history. - Hyperglycemia 12/25/2016 - Hyperthyroidism 05/10/2017 ? Tatianna - Rheumatoid arthritis (HCC) ? ? Leflunomide. Dayanna Silva MD. 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 Maurice, Dayanna Silva MD ? ? PAST SURGICAL HISTORY PAST SURGICAL HISTORY Procedure Laterality Date - LIGATE FALLOPIAN TUBE ? ? - REMV CATARACT EXTRACAP,INSERT LENS Right 12/15/2017 ? Cataract Extraction with PC IOL - REMV CATARACT EXTRACAP,INSERT LENS Left 01/05/2018 ? Cataract Extraction with PC IOL ? ? CURRENT MEDICATIONS Current Outpatient Medications Medication Sig - metoprolol succinate ER (TOPROL XL) 50 mg 24 hr tabl et Take 1 tablet by mouth once daily. - metFORMIN ER (GLUCOPHAGE XR) 500 mg 24 hr tablet Shelley e 1 tablet by mouth once daily. - predniSONE (DELTASONE) 10 mg tablet Take 10 mg by mo [facility] once daily as needed. - rivaroxaban (XARELTO) 20 mg tablet Take 1 tablet by mouth daily with dinner. - budesonide (PULMICORT) 0.5 mg/2 mL nebulizer solutio n Use 2 mL via nebulizer once daily. INHALE 2 ML BY NEBULIZER OVER 5- 15 MINUTES EVERY 12 HOURS. - ipratropium-albuterol (DUONEB) 0.5 mg-3 mg(2.5 mg ba se)/3 mL nebu Inhale 3 mL as instructed four times daily. - ferrous gluconate 324 mg (37.5 mg iron) tablet Take 1 tablet by mouth twice daily with meals. - gabapentin (NEURONTIN) 100 mg capsule Take 100 mg by mouth three times daily. - guaiFENesin (MUCINEX) 600 mg 12 hr tablet Take 1,200 mg by mouth twice daily. - COMPOUNDED PRESCRIPTION Provide nebulizer accessory kit. DME: [facility]. - COMPOUNDED PRESCRIPTION Accessories for nebulizer J43.1 Panlobular emphysema (HCC) (primary encounter di agnosis) J84.9 ILD (interstitial lung disease) ([facility]) - COMPOUNDED PRESCRIPTION #1 Continuous Flow Stationar y O2 Concentrator Sig: O2 2l/min liter flow Patient is to keep portablel concentrator as well J43.2 Centrilobular emphysema (HCC) J84.9 ILD (interstitial lung disease) ([facility]) J96.11 Chronic respiratory failure with hypoxia ([facility]) - fluticasone (FLONASE) 50 mcg/actuation nasal spray U se 2 Sprays in each nostril once daily. Rinse mouth after use. - COMPOUNDED PRESCRIPTION Based on 6 minute walk in Ap 2018, patient requires 2 L continuous supplemental oxygen. DME: [facility]. - leflunomide (ARAVA) 10 mg tablet Take 1 tablet by mo [facility] once daily. - COMPOUNDED PRESCRIPTION Face mask: hypoxia - COMPOUNDED PRESCRIPTION Portable oxygen concentrator , setting 2 at rest, setting 3 with ambulation. - COMPOUNDED PRESCRIPTION Evaluate patient for portabl e pulse dose O2 concentrator. - COMPOUNDED PRESCRIPTION Portable oxygen concentrator . - acetaminophen (TYLENOL EXTRA STRENGTH) 500 mg tablet Take 1,000 mg by mouth every 6 hours as needed. - albuterol HFA (PROVENTIL HFA) 90 mcg/actuation inhal er Inhale 2 Puffs as instructed every 4 hours as needed. ? No current facility-administered medications for this visit. ? ALLERGIES: Ragweed; Trees ? PERSONAL HISTORY: SOCIAL HISTORY Social History ? Tobacco Use - Smoking status: Former Smoker ? ? Packs/day: 0.50 ? ? Years: 30.00 ? ? Pack years: 15.00 ? ? Start date: 01/01/1970 ? ? Last attempt to quit: 09/09/2010 ? ? Years since quittin.0 - Smokeless tobacco: Never Used Substance Use Topics - Alcohol use: No - Drug use: No ? FAMILY HISTORY: FAMILY HISTORY FAMILY HISTORY Problem Relation Age of Onset - Ischemic Heart Disease Father ? - Cataract Father ? - other (COPD, smoker) Father ? - Cataract Mother ? - other (COPD, smoker) Mother ? - other (liver transplant) Sister ? ? Etiology of liver disease unknown to patient. - Heart Sister ? ? REVIEW OF SYMPTOMS: The review of systems data was entered by the nurse dory salgado reviewed by me ? Nursing Notes: Shayna Perez RN 09/18/2019 12:53 PM Signed REVIEW OF SYSTEMS: General: The patient denies fatigue, denies weight los s, denies weight gain, notes feeling hot, and notes feelings of cold. Eyes: The patient denies glaucoma, notes eye injury/stuart rgery, wears glasses or contacts. Ear/Nose/Throat: The patient notes allergies, notes fournier yfever, notes ear infections, and denies bloody noses. Cardiovascular: The patient denies chest pain, denies heart disease, denies high blood pressure,denies cardiac stent, denie s prior heart attack, notes irregular heart beat, notes high cholest ya, denies poor circulation, denies heart failure, other cardiac issue s, denies claudication, denies cold feet, denies peripheral shane rial stent. Respiratory: The patient denies tuberculosis, notes pn eumonia, denies frequent cough, denies pulmonary embolism, note s shortness of breath, and denies coughing up blood. Gastrointestinal: The patient denies difficulty swallo wing, denies acid reflux, denies ulcers, denies vomiting, denies ja undice/hepatitis, denies gallbladder problems, denies black or tarry sto ols, denies hemorrhoids, denies bleeding from rectum, denies diver ticulitis, denies constipation, notes diarrhea, denies loss of stool con trol, and denies hernias. Kidney/Bladder: The patient denies kidney stones, sravani es urine infections, and denies bloody urine. Skin: The patient denies a history of skin cancer, den ies bleeding/changing moles, and denies a history of skin rash. Neurologic: The patient denies a history of epilepsy/c onvulsions, notes headaches, denies head/spinal injuries, and sravani es stroke/TIA. Psychiatric: The patient denies psychiatric medication s, denies depression, and denies voices, denies substance abuse. Endocrine: The patient notes thyroid disorders, notes diabetes, and denies hormonal problems. Hematologic: The patient denies a history of bruising, denies bleeding, and notes anemia, denies blood clots. Infections: The patient notes a history of measles and mumps, denies rheumatic fever, and denies sexually transmitted disea ses. Musculoskeletal: The patient denies back pain/injury, denies back problems, denies sciatica, notes knee/foot trouble, no zulay arthritis, or denies gout. ? ? When was patient's last Mammogram screening? 12/2018 ? Last Colonoscopy: never ? Shayna Perez RN I have confirmed and edited as necessary, the PFSH and ROS obtained by others. ? ? LABORATORY VALUES: As Noted ? RADIOLOGIC STUDIES: As Noted ? ? Assessment IMPRESSION: iron deficiency anemia, recommend upper an d lower endoscopy. Multiple medical comorbidities-will plan for Monitored Anesthetic Care ? PLAN: I have reviewed my findings with the surgeon. Wi ll plan for upper and lower endoscopy. We discussed the risks and benefi ts of the planned endoscopy. I have informed the patient that complicati ons can occur including failure to complete the endoscopy and perfor ation. The patient had the opportunity to ask questions concerning the pl anned endoscopy. My staff has also explained the procedure to the patient in understandable terms. The patient freely consents to surgery. ? I plan to use Golytely bowel preparation-patient has R x ? Per Dr. Ruiz patient may continue her anticoagulati on for the procedures ? The patient has medical comorbidities for which we mike vick plan for the procedure to be performed under Monitored Anesthetic C are. ? The patient was offered a surgery/procedure at a [facility] facility. The provider and patient have discussed in d etail the risk of exposure to and/or potential harm posed by the COVID-1 9 virus with having a surgery/procedure at this time versus the risk of? d elaying the surgery/procedure. It is not possible to know either t he risk of delaying the surgery or procedure or chance of getting an infec tion with perfect accuracy, but a joint decision was made between the pa tieliat and the provider ?to proceed at this time with the scheduled s urgery/procedure. ? COVID-19 test order and patient aware this needs compl eted within 3 days prior to procedure ? Patient verbalized understanding of all above and agre ed with the plan. ? 9 minutes spent in phone call ? ? Diagnoses: (D50.9) Iron deficiency anemia, unspecified iron deficiency anemia type (primary encounter diagnosis) (Z01.818) Preop testing ? ? Mikal Rowland PA-C NURSING PROG on 10-09-2019 NURSING HNO ID: [id number] [place] [facility] Author: Sanjuanita (Rn) [facility] Service: Nursing Author Type: Registered Nurse Type: Nursing Progress Note Filed: 10/09/2019 10:09 AM Note Text: Nursing Progress Note Patient Name: Viviana Santana Patient Location: [facility] pt arrived to PH II awake, alert, snack and drink give n, denies pain, relates passing gas This note was completed by: Sanjuanita [facility]is RN NURSING HNO ID: [id number] [facility] Author: Sanjuanita GatesRn) [facility] Service: Nursing Author Type: Registered Nurse Type: Nursing Progress Note Filed: 10/09/2019 7:43 AM Note Text: Nursing Progress Note Patient Name: Viviana Santana Patient Location: [facility] pt ready for OR, call light in reach, in waiti ng room, needs consent and heart and lung sounds as pre-op visit was via telephone This note was completed by: Sanjuanita Wallis RN PT ED on 10-09-2019 PT ED HNO ID: [id number] [facility] Author: Sanjuanita GatesRn) [facility] Service: Nursing Author Type: Registered Nurse Type: Patient Education Filed: 10/09/2019 10:10 AM Note Text: POST OP LEARNING RESPONSE INSTRUCTION PROVIDED TO: Patient METHOD OF INSTRUCTION: Written instruction - handouts Verbal instruction PATIENT / FAMILY RESPONSE: Verbalizes understanding of : INFECTION MANAGEMENT-Signs and symptoms of an infection and impo rtance of contacting the physician MEDICATION PRESCRIBED-Accurate knowledge of prescribed medication prior to discharge POST-OPERATIVE INSTRUCTIONS-Correct actions to take to reduce postoperative complications SYMPTOM MANAGEMENT-Correct actions to take to manage s ymptoms associated with his/her disease/illness WORSENING CONDITION-Signs and symptoms of a worsening condition that warrant a call to the physician WOUND CARE-Correct procedure to perform wound care FOLLOW-UP PLAN: Patient instructed to call with any fu rther issues Contact information given. SUPPLEMENTAL MATERIAL: None REFERRAL (RECOMMENDATION): None Electronically Signed By: Sanjuanita Wallis RN In Departme nt: [facility] PT ED HNO ID: [id number] [facility] Author: Sajnuanita GatesRn) [facility] Service: Nursing Author Type: Registered Nurse Type: Patient Education Filed: 10/09/2019 7:16 AM Note Text: PRE OP LEARNING ASSESSMENT PROCEDURE/SURGERY: SURGERY: EGD, Colonoscopy READINESS TO LEARN COGNITIVE ABILITY: Alert and oriented MOTIVATION TO LEARN: Eager FAMILY SUPPORT: Unable to assess - Family not present PATIENT LEARNS BEST BY: Written Instruction - Hand-out s Verbal Instruction FACTORS AFFECTING LEARNING: None PHYSICAL LIMITATIONS AFFECTING LEARNING: None Electronically Signed By: Sanjuanita Wallis RN In Departme nt: [facility] SURGICAL PATHOLOGY on 10-09-2019 SURGICAL Specimen originated from [facility] [place] PATHOLOGY Specimen #: [id number] Hospit [facility] Submitting Physician: Jourdan Ruiz M.D. FINAL DIAGNOSIS 1. Esophagus, distal, biopsy (A) - Esophageal squamous mucosa with no diagnostic alteration. - No evidence of increased eosinophils. 2. Stomach, antrum, biopsy (B) - Gastric antral and samuel dy-type mucosa with no diagnostic alteration. - Negative for H. pylori organisms on routine stain. 3. Colon, cecum, polypectomy (C) - Fragments of tubula r adenoma. KL/dss 10/11/2019 Jr Castro M.D. (Electronic Signature) SPECIMEN SUBMITTED A: DISTAL ESOPHAGUS, BIOPSY B: GASTRIC/ ANTRAL, BIOPSY C: CECUM POLYP CLINICAL DATA ANEMIA; ESOPHAGITIS; GASTRITIS, LMP: NA B: R/O H PYLORI GROSS DESCRIPTION A. Received in formalin is one piece of ospina, soft tiss ue measuring 0.4 x 0.3 x 0.2 cm. Totally submitted in one cassette. B. Received in formalin is one piece of ospina, soft tiss ue measuring 0.3 x 0.2 x 0.2 cm. Totally submitted in one cassette. C. Received in formalin are multiple pieces of ospina, so ft tissue aggregating to 1.5 x 0.5 x 0.2 cm. Totally submitted in two casset zulay. Gross examination performed at [facility], [address] [place] [address] TV 10/09/2019 6:09:01 PM Date of Report: 10/11/2019 Date of Procedure: 10/09/2019 Date of Receipt: 10/09/2019 Submitted by: Jourdan Ruiz M.D. Location: [facility] Diagnostic interpretation performed at [facility], [address] [place] [address]. [place] Number: [id number] HISTORY PHYSICAL on 10-06-2019 HISTORY PHYSICAL HNO ID: [id number] [facility] Author: Iqra (Melisa) Lana Service: ? Author Type: Nurse Practitioner Type: HANDP Filed: 10/06/2019 3:47 PM Note Text: HISTORY AND PHYSICAL EXAMINATION SERVICE DATE: 10/06/2019 SERVICE TIME: 3:00 PM PRIMARY CARE PHYSICIAN: Alexa Becerra PA-C REASON FOR VISIT: Viviana Santana is a 64 year old female who is scheduled for colonoscopy at the request of Dr. Jourdan Ruiz for consultation. My final recommendation will be communicated back to the [facility] physician by way of shared medical record or letter. 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 Copd (Chronic Obstructive Pulmonary Disease) (Hcc) Ild (Interstitial Lung Disease) (Hcc) Lung Nodule, Multiple Iatrogenic Adrenal Insufficiency (Hcc) Chronic Respiratory Failure With Hypoxia (Hcc) Rheumatoid Arthritis Involving Multiple Sites With Pos itive Rheumatoid Factor (Hcc) Senior Care Current Use of Immunosuppressive Drug Paroxysmal Atrial Fibrillation (Hcc) Hyperthyroidism Normocytic Anemia Pre-Diabetes Current Chronic Use of Systemic Steroids Rheumatoid Arthritis (Hcc) Type 2 Diabetes Mellitus Without Retinopathy (Hcc) Regular Astigmatism, Bilateral Vitreous Floaters of Both Eyes Pseudophakia of Both Eyes Cesar (Obstructive Sleep Apnea) Acute Bilateral Mastoiditis Cholesteatoma, Bilateral Obesity, Class I, Bmi 30-34.9 Subjective CHIEF COMPLAINT: Pre-Op Exam HPI: 64 year old female patient presents today with ID A. Patient with long standing history of anemia. She has been on po ir on for the past few years. Patient has not had a colonoscopy. She denies a ny fatigue, abdominal pain, nausea, vomiting, constipation, diarrh ea, heartburn or GERD. No history of dysphagia, liver disease or blood in the stool. Her stools are black with iron supplementation. She denies any family history of colon cancer. PAST MEDICAL HISTORY Diagnosis Date - Asthma - Atrial fibrillation (HCC) 04/26/2017 - COPD (chronic obstructive pulmonary disease) (HCC) Chronic bronchitis by history. - Hyperglycemia 12/25/2016 - Hyperthyroidism 05/10/2017 Tatianna - Rheumatoid arthritis (HCC) Leflunomide. Dayanna Silva MD. 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 - Heart Sister SOCIAL HISTORY: Social History Tobacco Use - Smoking status: Former Smoker Packs/day: 0.50 Years: 30.00 Pack years: 15.00 Start date: 01/01/1970 Last attempt to quit: 09/09/2010 Years since quittin.0 - Smokeless tobacco: Never Used Substance Use Topics - Alcohol use: No - Drug use: No Prior to Admission medications as of 10/06/19 1543 Medication Sig Last Dose Taking metoprolol succinate ER (TOPROL XL) 50 mg 24 hr tablet Take 1 tablet by mouth once daily. Taking metFORMIN ER (GLUCOPHAGE XR) 500 mg 24 hr tablet Take 1 tablet by mouth once daily. Taking predniSONE (DELTASONE) 10 mg tablet Take 10 mg by mout h once daily as needed. Taking rivaroxaban (XARELTO) 20 mg tablet Take 1 tablet by mo uth daily with dinner. Taking budesonide (PULMICORT) 0.5 mg/2 mL nebulizer solution Use 2 mL via nebulizer once daily. INHALE 2 ML BY NEBULIZER OVER 5- 15 MINUTES EVERY 12 HOURS. Taking ipratropium-albuterol (DUONEB) 0.5 mg-3 mg(2.5 mg base )/3 mL nebu Inhale 3 mL as instructed four times daily. Taking ferrous gluconate 324 mg (37.5 mg iron) tablet Take 1 tablet by mouth twice daily with meals. Taking gabapentin (NEURONTIN) 100 mg capsule Take 100 mg by m outh three times daily. Taking guaiFENesin (MUCINEX) 600 mg 12 hr tablet Take 1,200 m g by mouth twice daily. Taking COMPOUNDED PRESCRIPTION Provide nebulizer accessory ki t. DME: [facility]. Taking COMPOUNDED PRESCRIPTION Accessories for nebulizer J43.1 Panlobular emphysema (HCC) (primary encounter di agnosis) J84.9 ILD (interstitial lung disease) ([facility]) Taking COMPOUNDED PRESCRIPTION #1 Continuous Flow Stationary O2 Concentrator Sig: O2 2l/min liter flow Patient is to keep portablel concentrator as well J43.2 Centrilobular emphysema (HCC) J84.9 ILD (interstitial lung disease) (HCC) J96.11 Chronic respiratory failure with hypoxia ([facility]) Taking fluticasone (FLONASE) 50 mcg/actuation nasal spray Use 2 Sprays in each nostril once daily. Rinse mouth after use. Taking COMPOUNDED PRESCRIPTION Based on 6 minute walk in 2017, patient requires 2 L continuous supplemental oxygen. DME: [facility]. Taking leflunomide (ARAVA) 10 mg tablet Take 1 tablet by mout h once daily. Taking albuterol HFA (PROVENTIL HFA) 90 mcg/actuation inhaler Inhale 2 Puffs as instructed every 4 hours as needed. Taking COMPOUNDED PRESCRIPTION Face mask: hypoxia Taking COMPOUNDED PRESCRIPTION Portable oxygen concentrator, setting 2 at rest, setting 3 with ambulation. Taking COMPOUNDED PRESCRIPTION Evaluate patient for portable pulse dose O2 concentrator. Taking COMPOUNDED PRESCRIPTION Portable oxygen concentrator. Taking acetaminophen (TYLENOL EXTRA STRENGTH) 500 mg tablet T bill 1,000 mg by mouth every 6 hours as needed. Taking No medication comments found. ALLERGIES Allergen Reactions - Ragweed Other: See Comments - Trees Other: See Comments REVIEW OF SYSTEMS: PAIN ASSESSMENT: General: No weight loss, malaise or fevers. Neuro: No history of TIA's, stroke, PROGRAMS DIRECTOR tumor, impaire d sensorium, hemiplegia, paraplegia or quadraplegia. No neurologica l symptoms or problems. Respiratory:(+) COPD-stable, chronic oxygen dependance 3LNC. Follows with Dr. Freeman. Uses nebulizer daily. (+) Multiple lung n odules hx. (+) Chronic cough- dry cough. (+) CESAR-noncompliant with CP AP. No history of cough, dyspnea, asthma, bronchitis or pneumonia within the last six weeks Cardiovascular: (+) Prox Afib-anticoagulated on Xarelt o, rate controlled. Last seen by Cardiology 03/2019. Last Echo 08/2017- EF 63%. No history of HTN, HLD, angina, CHF, DC, cardiac surgery or stent. D enies rest pain, gangrene or revascularization/amputation for PVD. No h istory of palpitations, syncope, DVT, PE or murmur. GI: See HPI : No history of dysuria, frequency or incontinence,, stones or chronic kidney disease, No difficulty urinating, nocturia > 1 time per night or hematuria ASBESTOS MICROSCOPIST: Negative for abnormal vaginal bleeding, abnormal vaginal discharge. : Denies, No LMP recorded. Patient is postmen opausal. Endocrine: (+) DMT2- last Hgba1c 06/2019 5.7%. Does not check blood glucose. On PO agent. No hx of thyroid disorder. Uses steroids prn for RA. 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 Has been using every day lately, for RA. No history of bleeding or clotting disorders. Oncology: No history of CA metastasis, chemo within 30 days, or radiotherapy within 90 days. Has not lost 10% of body wt in 6 months. No history of oncological symptoms or problems. Psych: No history of psychiatric symptoms or problems. Musculoskeletal: (+) RA- controlled, follows with eddie matology. No history of muscle or back pain. No history of lower extremity swelling. Skin: Negative for lesions, rash and itching. Objective PHYSICAL EXAM: VITALS: BP 140/68 Pulse 100 Temp (Src) 98.4 (Tympanic) R lenny 16 Ht 5' 4 (1.63m) Wt 173 lb (78.5kg) SpO2 98[3l nc]% BMI 2 9.68 kg/(m2). General: Alert and oriented, No acute distress, Health y appearance Skin: Normal color, no rash, no lesions. HEENT: EOM, pupils equal, round and reactive., No ortiz tid bruits Cardiovascular: Normal S1 AND S2, no rubs, murmurs or gallops. No JVD. Pulse regular. Lungs: No chest deformities or chest wall tenderness. , Rhonchi On 3LNC, respirations even and unlabored. Abdomen: Soft, non-tender, no rigidity., No masses or organomegaly., Positive bowel sounds Extremities: No deformity, no edema or tenderness, no joint swelling or clubbing. Neurological: Normal cognition, in wheelchair. Pulses: Carotid and radial pulses normal +2. Pedal pul ses normal +2. Diagnostic tests reviewed for today's visit: Lab Value Units Date High Low HB 10.9 g/dL 06/22/2019 15.5 11.5 HCT 38.1 % 06/22/2019 46.0 36.0 WBC 17.56 k/uL 06/22/2019 11.00 3.70 PLT 437 k/uL 06/22/2019 400 150 NA 139 mmol/L 06/22/2019 144 136 K 4.4 mmol/L 06/22/2019 5.1 3.7 GLUC 97 mg/dL 06/22/2019 99 74 BUN 13 mg/dL 06/22/2019 21 7 CREAT 0.78 mg/dL 06/22/2019 0.96 0.58 PTSEC No results within date range. INR No results within date range. APTT No results within date range. ALT 8 U/L 06/22/2019 38 7 AST 19 U/L 06/22/2019 35 13 TBILI 0.2 mg/dL 06/22/2019 1.3 0.2 TSH No results within date range. Lab Value Units Date High Low HCGQT No results within date range. UHCG No results within date range. HCG, BODY* No results within date range. Lab Value Units Date High Low ABORHD No results within date range. ABSCREEN No results within date range. Hemoglobin A1C (%) Date Value 06/22/2019 5.7 11/28/2018 5.4 11/04/2017 5.5 12/23/2016 6.0 Most recent labs Most recent imaging Most recent EKG Most recent Echo All in Epic Assessment/Plan Paroxysmal atrial fibrillation (HCC) Assessment: Prox Afib-anticoagulated on Xarelto, rate controlled. Last seen by Cardiology 03/2019. Last Echo 08/2017- EF 63%. CESAR (obstructive sleep apnea) Assessment: Does not use CPAP. Lung nodule, multiple Assessment: Follows with pulmonology. COPD (chronic obstructive pulmonary disease) (HCC) Assessment: Stable, chronic oxygen dependance 3LNC. Misha sharma with Dr. Freeman. Uses nebulizer daily. Iatrogenic adrenal insufficiency (HCC) Assessment: Due to chronic intermittent use of prednis one for RA. Type 2 diabetes mellitus without retinopathy (HCC) Assessment: Last Hgba1c 06/2019 5.7%. Does not check bl ood glucose. On PO agent. 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 Rheumatoid arthritis involving multiple sites with pos itive rheumatoid factor (HCC) Assessment: Controlled with use of Arava/prn Prednison e. METS: Do moderate work around the house such as vacuuming, s weeping floors, or carrying in groceries (3.50 METs) Patient denies any chest pain or undue shortness of br eath with the above physical activity. ASA Class: 3 ANESTHESIA FINDINGS: Intubation History: No history ofza difficult intubati on Significant Anesthesia Considerations: None Airway Exam: General: Normal appearance Mallampati Score is CLASS III ULBT: Class I - Lower incisors can bite the upper lip above the cathy line Neck: Normal appearance and function, Distance from hy oid to mentum during neck extension is at least 3 finger breaths Mouth: Normal tongue size and Mouth opening greater th an 2 finger breaths Dentition: Intact Airway History: No history of difficult intubation STOP BANG Score: CESAR does not use CPAP/BiPAP PLAN This patient is optimally prepared for surgery pending LABS. Per Dr. Ruiz in note from Mikal Rowland 09/17-patient m ay continue anticoagulation CONSULTS: Patient does not require consults for optimization at this time. The Following Tests/Procedures Have Been Initiated: Labs not indicated per PACC protocol, EKG not indicate d per [facility]ACC protocol Planned Anesthetic: MAC Instructions Given to Patient: Instructions located in the after visit summary. Patient given verbal and written preop instructions an d voices comprehension and compliance. SIGNATURE: Iqra Schwartz APRN.CNP PATIENT NAME: Wyatt Jolly DATE: October 06, 2019 TIME: 3:00 PM PAGER/CONTACT #: NURSING PROG on 10-06-2019 NURSING PROG HNO ID: [id number] [facility] carlos Author: Meri Liu (Rn) SAHLOM Anglin Service: ? Author Type: Registered Nurse Type: Nursing Progress Note Filed: 10/06/2019 7:28 AM Note Text: Pacc Apt 10/06/19 at 3pm. Chart not reviewed per Pacc Raj catalan. See Epic for HANDP, testing, and results. Covid 10/07/2019. Meri Anglin RN Pacc HOSP on 08-22-2019 HOSP Patient:Viviana Santana [facility] MRN: Height:5' 4 (1.626 m) Weight:173 lb (78.472 kg) Outpatient Medications as of 10/09/19: metoprolol succinate ER (TOPROL XL) 50 mg 24 hr tablet metFORMIN ER (GLUCOPHAGE XR) 500 mg 24 hr tablet predniSONE (DELTASONE) 10 mg tablet rivaroxaban (XARELTO) 20 mg tablet budesonide (PULMICORT) 0.5 mg/2 mL nebulizer solution ipratropium-albuterol (DUONEB) 0.5 mg-3 mg(2.5 mg base )/3 mL nebu ferrous gluconate 324 mg (37.5 mg iron) tablet gabapentin (NEURONTIN) 100 mg capsule guaiFENesin (MUCINEX) 600 mg 12 hr tablet COMPOUNDED PRESCRIPTION COMPOUNDED PRESCRIPTION COMPOUNDED PRESCRIPTION fluticasone (FLONASE) 50 mcg/actuation nasal spray COMPOUNDED PRESCRIPTION leflunomide (ARAVA) 10 mg tablet albuterol HFA (PROVENTIL HFA) 90 mcg/actuation inhaler COMPOUNDED PRESCRIPTION COMPOUNDED PRESCRIPTION COMPOUNDED PRESCRIPTION COMPOUNDED PRESCRIPTION acetaminophen (TYLENOL EXTRA STRENGTH) 500 mg tablet Admission/Clinic Administered Medications as of 0: lidocaine 10 mg/mL (1 %) 1-2 mg injection (XYLOCAINE) lactated ringers infusion Problem List: Allergic rhinitis due to pollen [J30.1] Chronic rhinitis [J31.0] COPD (chronic obstructive pulmonary disease) ([facility]) [J4 4.9] ILD (interstitial lung disease) ([facility]) [J84.9] Lung nodule, multiple [R91.8] Iatrogenic adrenal insufficiency ([facility]) [E27.49] Chronic respiratory failure with hypoxia ([facility]) [J96.11 ] Rheumatoid arthritis involving multiple sites wi th positive rheumatoid factor (HCC) [M05.79] longterm current use of immunosuppressive drug [Z79.8 99] Paroxysmal atrial fibrillation (HCC) [I48.0] Hyperthyroidism [E05.90] Normocytic anemia [D64.9] Pre-diabetes [R73.03] Current chronic use of systemic steroids [Z79.52] Rheumatoid arthritis (HCC) [M06.9] Type 2 diabetes mellitus without retinopathy (HCC) [E1 1.9] Regular astigmatism, bilateral [H52.223] Vitreous floaters of both eyes [H43.393] Pseudophakia of both eyes [Z96.1] CESAR (obstructive sleep apnea) [G47.33] Acute bilateral mastoiditis [H70.003] Cholesteatoma, bilateral [H71.93] Obesity, Class I, BMI 30-34.9 [E66.9] Allergies: Ragweed Trees Date Verified: 10/09/19 Lab Values No results within the last 30 days for the following b asenames: K,HCT Progress Notes ([facility]): Shayna Perez RN 09/18/2019 12:53 PM Signed REVIEW OF SYSTEMS: General: The patient denies fatigue, denies weight los s, denies weight gain, notes feeling hot, and notes feelings of cold. Eyes: The patient denies glaucoma, notes eye injury/stuart rgery, wears glasses or contacts. Ear/Nose/Throat: The patient notes allergies, notes fournier yfever, notes ear infections, and denies bloody noses. Cardiovascular: The patient denies chest pain, denies heart disease, denies high blood pressure,denies cardiac stent, denie s prior heart attack, notes irregular heart beat, notes high cholesterol, de nies poor circulation, denies heart failure, other cardiac issues, denies cla udication, denies cold feet, denies peripheral arterial stent. Respiratory: The patient denies tuberculosis, notes pn eumonia, denies frequent cough, denies pulmo nary embolism, notes shortness of breath, and denies coughing up blood. Gastrointestinal: The patient denies difficulty swallo wing, denies acid reflux, denies ulcers, denies vomiting, denies jaundic e/hepatitis, denies gallbladder problems, denies black or ta rry stools, denies hemorrhoids, denies bleeding from rectum, denies diverticulitis, denies co nstipation, notes diarrhea, denies loss of stool control, and denies her nias. Kidney/Bladder: The patient denies kidney stones, sravani es urine infections, and denies bloody urine. Skin: The patient denies a history of skin cancer, den ies bleeding/changing moles, and denies a history of skin rash. Neurologic: The patient denies a history of epilepsy/c onvulsions, notes headaches, denies head/spinal injuries, and denies str jenifer/TIA. Psychiatric: The patient denies psychiatric medication s, denies depression, and denies voices, denies substance abuse. Endocrine: The patient notes thyroid disorders, notes diabetes, and denies hormonal problems. Hematologic: The patient denies a history of bruising, denies bleeding, and notes anemia, denies blood clots. Infections: The patient notes a history of measles and mumps, denies rheumatic fever, and denies sexually transmitted disea ses. Musculoskeletal: The patient denies back pain/injury, denies back problems, denies sciatica, notes knee/fo ot trouble, notes arthritis, or denies gout. When was patient's last Mammogram screening? 12/2018 Last Colonoscopy: never Shayna Rowland PA-C 09/25/2019 12:26 AM Signed This Team Access Model visit is a phone encounter. It required patient-provider interaction for the medical decision making as documen meredith below. Viviana Santana 1955 REFERRING PHYSICIAN: Alexa Becerra (Andrea* CHIEF COMPLAINT: Established Patient -update/preop dis cussion for endoscopy HPI: The patient is a 64 year old female referred for evaluation of iron deficiency anemia. Patient was previously evaluated by Betzaida Bhardwaj CNP on 06/22/2019, notes reviewed. Per Betzaida's HANDP at that ti me: Viviana Santana a 63 year old female who is returning to set up procedures. I saw her 03/10/19, in consultation requested by Dr. Marshall hammer an opinion regarding anemia. She declined procedures until after seeing Antonette curran in May. The patient denies a family hist ory of colon cancer. The patient has never underwent screening colonoscopy. ? The patient has a history of chronic prednisone use (n ow only as needed), multiple lung nodules, seeing Dr. Freeman. Uses O2 continuously, CESAR, but not using CPAP, chronic atrial fibrillation (on Xarelto), diabetes, RA, chronic immunosuppressant drug therapy. ? Component Latest Ref Rng AND Units 01/04/2019 9 WBC 3.70 - 11.00 k/uL 14.41 (H) 13.85 (H) RBC 3.90 - 5.20 m/uL 3.81 (L) 3.52 (L) Hemoglobin 11.5 - 15.5 g/dL 11.7 10.4 (L) Hematocrit 36.0 - 46.0 % 39.2 36.6 MCV 80.0 - 100.0 fL 102.9 (H) 104.0 (H) MCH 26.0 - 34.0 pG 30.7 29.5 MCHC 30.5 - 36.0 g/dL 29.8 (L) 28.4 (L) RDW-CV 11.5 - 15.0 % 12.8 14.6 Platelet Count 150 - 400 k/uL 404 (H) 314 MPV 9.0 - 12.7 fL 10.1 10.3 Neut% % 82.0 87.6 Abs Neut (ANC) 1.45 - 7.50 k/uL 11.83 (H) 12.12 (H) Lymph% % 12.1 8.0 Abs Lymph 1.00 - 4.00 k/uL 1.74 1.11 Washburn% % 4.0 3.2 Abs [place]burn <0.87 k/uL 0.57 0.44 Eosin% % 1.1 0.6 Abs Eosin ? <0.46 k/uL 0.16 0.09 Baso% % 0.8 0.6 Abs Baso <0.11 k/uL 0.11 (H) 0.09 Nucleated Reds 0 /100 WBC 0.0 0.0 Absolute nRBC <0.01 k/uL <0.01 <0.01 Diff Type ? Auto Diff Auto Diff CBC was ordered 06/16, but not done. ? Component Latest Ref Rng AND Units 02/14/2019 0 Iron 41 - 186 ug/dL 27 (L) 20 (L) TIBC 232 - 386 ug/dL 263 264 Transferrin Saturation 15 - 57 % 10 (L) 8 (L) ? Component Latest Ref Rng AND Units 11/30/2018 Occult Blood, Stool Negative Negative ? ? Presenting complaint: The pa jorge presents today that she is taking a different iron supplement twice a day. She started that 2 days ago. The previous one gave her loose stools. Reporting that she has a bowel movement at least once a day, sometimes twice. No blood. No abdominal pain. ? She reports occasional heartburn. She takes an OTC ant acid with relief. No dysphagia, nausea or vomiting. ? ?Patient was scheduled to undergo upper and lower endoscopy with MAC in [place] in July 2019, but this was postponed due to governmen t mandate because of COVID-19. Patient is now rescheduled to have procedure s with Dr. Ruiz in [place] on 10/09/2019. The patient denies any significant gamez e to her overall health since her last visit. Denies any new complaints or recent hospitaliza tions. PAST MEDICAL HISTORY Diagnosis Date - Asthma - Atrial fibrillation (HCC) 04/26/2017 - COPD (chronic obstructive pulmonary disease) (HCC) Chronic bronchitis by history. - Hyperglycemia 12/25/2016 - Hyperthyroidism 05/10/2017 Tatianna - Rheumatoid arthritis (HCC) Leflunomide. Dayanna Silva MD. 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 Adanlunomide, Dayanna Silva MD PAST SURGICAL HISTORY Procedure Laterality Date - LIGATE FALLOPIAN TUBE - REMV CATARACT EXTRACAP,INSERT LENS Right 12/15/2017 Cataract Extraction with PC IOL - REMV CATARACT EXTRACAP,INSERT LENS Left 01/05/2018 Cataract Extraction with PC IOL Current Outpatient Medications Medication Sig - metoprolol succinate ER (T OPROL XL) 50 mg 24 hr tablet Take 1 tablet by mouth once daily. - metFORMIN ER (GLUCOPHAGE XR) 500 mg 24 hr tablet Take 1 tablet by mouth once daily. - predniSONE (DELTASONE) 10 mg tablet Take 10 mg by mouth once daily as needed. - rivaroxaban (XARELTO) 20 mg tablet Shelley e 1 tablet by mouth daily with dinner. - budesonide (PULMICORT) 0.5 mg/2 mL neb ulizer solution Use 2 mL via nebulizer once daily. INHALE 2 ML BY NEBULIZER OVER 5-15 MINUTES EVERY 12 HOURS. - ipratropium-albuterol (DUO NEB) 0.5 mg-3 mg(2.5 mg base)/3 mL nebu Inhale 3 mL as instructed four times daily. - ferrous gluconate 324 mg (37.5 mg iron) tablet Take 1 tablet by mouth twice daily with meals. - gabapentin (NEURONTIN) 100 mg capsule Take 100 mg by mouth three times daily. - guaiFENesin (MUCINEX) 600 mg 12 hr tablet Take 1,200 mg by mouth twice daily. - COMPOUNDED PRESCRIPTION Provide nebulizer accessory kit. DME: [facility]. - COMPOUNDED PRESCRIPTION Accessories for nebulizer J43.1 Panlobular emphysema (HCC) (primary encounter di agnosis) J84.9 ILD (interstitial lung disease) ([facility]) - COMPOUNDED PRESCRIPTION #1 Continuous Flow Stationar y O2 Concentrator Sig: O2 2l/min liter flow Patient is to keep portablel concentrator as well J43.2 Centrilobular emphysema ([facility]) J84.9 ILD (interstitial lung disease) ([facility]) J96.11 Chronic respiratory failure with hypoxia ([facility]) - fluticasone (FLONASE) 50 mcg/actuation nasal spray U se 2 Sprays in each nostril once daily. Rinse mouth after use. - COMPOUNDED PRESCRIPTION Ba sed on 6 minute walk in July 2017, patient requires 2 L continuous supplemental oxygen. DME: [facility]. - leflunomide (ARAVA) 10 mg tablet Take 1 tablet by [facility] once daily. - COMPOUNDED PRESCRIPTION Face mask: hypoxia - COMPOUNDED PRESCRIPTION Portable oxygen concentrator , setting 2 at rest, setting 3 with ambulation. - COMPOUNDED PRESCRIPTION Evaluate patient for portabl e pulse dose O2 concentrator. - COMPOUNDED PRESCRIPTION Portable oxygen concentrator . - acetaminophen (TYLENOL EXTRA STRENGTH) 500 mg tablet Take 1,000 mg by mouth every 6 hours as needed. - albuterol HFA (PROVENTIL HFA) 90 mcg/actuation inhal er Inhale 2 Puffs as instructed every 4 hours as needed. No current facility-administered medications for this visit. ALLERGIES: Ragweed; Trees PERSONAL HISTORY: Social History Tobacco Use - Smoking status: Former Smoker Packs/day: 0.50 Years: 30.00 Pack years: 15.00 Start date: 01/01/1970 Last attempt to quit: 09/09/2010 Years since quittin.0 - Smokeless tobacco: Never Used Substance Use Topics - Alcohol use: No - Drug use: No FAMILY HISTORY: FAMILY HISTORY Problem Relation Age of Onset - Ischemic Heart Disease Father - Cataract Father - other (COPD, smoker) Father - Cataract Mother - other (COPD, smoker) Mother - other (liver transplant) Sister Etiology of liver disease unknown to patient. - Heart Sister REVIEW OF SYMPTOMS: The review of systems data was entered by the nurse dory salgado reviewed by wa Nursing Notes: Shayna Perez RN 09/18/2019 12:53 PM Signed REVIEW OF SYSTEMS: General: The patient denies fatigue, denies weight los s, denies weight gain, notes feeling hot, and notes feelings of cold. Eyes: The patient denies glaucoma, notes eye injury/stuart rgery, wears glasses or contacts. Ear/Nose/Throat: The patient notes allergies, notes fournier yfever, notes ear infections, and denies bloody noses. Cardiovascular: The patient denies chest pain, denies heart disease, denies high blood pressure,denies cardiac stent, denie s prior heart attack, notes irregular heart beat, notes high cholesterol, de nies poor circulation, denies heart failure, other cardiac issues, denies cla udication, denies cold feet, denies peripheral arterial stent. Respiratory: The patient denies tuberculosis, notes pn eumonia, denies frequent cough, denies pulmo nary embolism, notes shortness of breath, and denies coughing up blood. Gastrointestinal: The patient denies difficulty swallo wing, denies acid reflux, denies ulcers, denies vomiting, denies jaundic e/hepatitis, denies gallbladder problems, denies black or ta rry stools, denies hemorrhoids, denies bleeding from rectum, denies diverticulitis, denies co nstipation, notes diarrhea, denies loss of stool control, and denies her nias. Kidney/Bladder: The patient denies kidney stones, sravani es urine infections, and denies bloody urine. Skin: The patient denies a history of skin cancer, den ies bleeding/changing moles, and denies a history of skin rash. Neurologic: The patient denies a history of epilepsy/c onvulsions, notes headaches, denies head/spinal injuries, and denies str jenifer/TIA. Psychiatric: The patient denies psychiatric medication s, denies depression, and denies voices, denies substance abuse. Endocrine: The patient notes thyroid disorders, notes diabetes, and denies hormonal problems. Hematologic: The patient denies a history of bruising, denies bleeding, and notes anemia, denies blood clots. Infections: The patient notes a history of measles and mumps, denies rheumatic fever, and denies sexually transmitted disea ses. Musculoskeletal: The patient denies back pain/injury, denies back problems, denies sciatica, notes knee/fo ot trouble, notes arthritis, or denies gout. When was patient's last Mammogram screening? 12/2018 Last Colonoscopy: never Shayna Perez RN I have confirmed and edited as necessary , the PFSH and ROS obtained by others. LABORATORY VALUES: As Noted RADIOLOGIC STUDIES: As Noted Assessment IMPRESSION: iron deficiency anemia, recommend upper an d lower endoscopy. Multiple medical comorbidities-will plan for Monitored Anesthetic Care PLAN: I have reviewed my findings with the surgeon. Wi ll plan for upper and lower endoscopy. We discussed the risks and benefits of the planned endoscopy. I have informed the patient that complications c an occur including failure to complete the endoscopy and perforation. The patient had the opportunity to ask questions concerning the planned endoscopy. My staff h as also explained the procedure to the patient in understandable terms . The patient freely consents to surgery. I plan to use Golytely bowel preparation-patient has R x Per Dr. Ruiz patient may continue her anticoagulati on for the procedures The patient has medical comorbidities fo r which we will plan for the procedure to be performed under Monitored Anesthetic Care. The patient was offered a stuart rgery/procedure at a [facility] facility. The provider and patient have discussed in detail the risk of exposure to and/or potential harm posed by the COVID-19 virus with having a surgery/procedure at this time versus the risk of delaying the surgery/procedure. It is not possible to know either the risk of delaying the surgery or pro cedure or chance of getting an infection with perfect accuracy, but a join t decision was made between the patient and the provider to proceed at this time with the scheduled surgery/procedure. COVID-19 test order and patient aware th is needs completed within 3 days prior to procedure Patient verbalized understanding of all above and agre ed with the plan. 9 minutes spent in phone call Diagnoses: (D50.9) Iron deficiency anemia, unspe cified iron deficiency anemia type (primary encounter diagnosis) (Z01.818) Preop testing Mikal Rowland PA-C Vital Signs Date Time Vital Sign Value Performing Clinician Facilit y 03-16-2022 Body temperature 98.1 [degF] [facility] [id number] Work Phone: 03-16-2022 Body weight 81.01 kg [facility] 13:38-0500 Work Phone: 03-16-2022 Diastolic blood 84 mm[Hg] [facility] 13:38-0500 pressure Work Phone: 03-16-2022 Heart rate 95 /min [facility] 13:38-0500 Work Phone: 03-16-2022 Respiratory rate 18 /min [facility] 13:38-0500 Work Phone: 03-16-2022 SaO2% (BldA) [Mass 96 % [facility] 13:38-0500 fraction] Work Phone: 03-16-2022 Systolic blood 121 mm[Hg] [facility] 13:38-0500 pressure Work Phone: 02-16-2022 Body temperature 97.5 [degF] [facility] 12:54-0400 02-16-2022 Body weight 79.92 kg [facility] 12:54-0400 02-16-2022 Diastolic blood 72 mm[Hg] [facility] 12:54-0400 pressure 02-16-2022 Heart rate 97 /min [facility] 12:54-0400 02-16-2022 Respiratory rate 18 /min [facility] 12:54-0400 02-16-2022 SaO2% (BldA) [Mass 97 % [facility] 12:54-0400 fraction] 02-16-2022 Systolic blood 131 mm[Hg] Chair [facility] 12:54-0400 pressure 02-06-2022 Body height 160 cm Junior Mathew MD [facility] [id number] Work Phone: 02-06-2022 Body weight 84.37 kg Junior Mathew MD [facility] [id number] Work Phone: 02-06-2022 Diastolic blood 74 mm[Hg] Junior Mathew MD [facility] [id number] pressure Work Phone: 02-06-2022 Heart rate 88 /min Junior Mathew MD [facility] [id number] Work Phone: 02-06-2022 Respiratory rate 20 /min Junior Mathew MD [facility] [id number] Work Phone: 02-06-2022 SaO2% (BldA) [Mass 96 % Junior Mathew MD [facility] [id number] fraction] Work Phone: 02-06-2022 Systolic blood 106 mm[Hg] Junior Mathew MD [facility] [id number] pressure Work Phone: 01-30-2022 Body temperature 94.6 [degF] Asia Calderón MD [facility] [id number] Work Phone: 01-30-2022 Diastolic blood 78 mm[Hg] Asia Calderón MD [facility] 11:380400 pressure Work Phone: 01-30-2022 Heart rate 94 /min Asia Calderón MD [facility] [id number] Work Phone: 01-30-2022 Respiratory rate 20 /min Asia Calderón MD [facility] [id number] Work Phone: 01-30-2022 SaO2% (BldA) [Mass 97 % Asia Calderón MD [facility] 11:[id number] fraction] Work Phone: 01-30-2022 Systolic blood 130 mm[Hg] [facility] 11:38-0400 pressure Work Phone: 01-01-2022 Heart rate 86 /min Sirena Royal CUSTOMER SECURITY CLERK.CITY PLANNING ENGINEER Cl [facility] 14: Work Phone: 01-01-2022 Respiratory rate 16 /min Sirena Royal CUSTOMER SECURITY CLERK.CN P [facility] 14:25 Work Phone: 01-01-2022 SaO2% (BldA) [Mass 98 % Sirena Marcusfield CUSTOMER SECURITY CLERK. CITY PLANNING ENGINEER [facility] 14:25040 fraction] Work Phone: 12-23-2021 Body temperature 98.1 [degF] [facility] 13:47-0400 12-23-2021 Body weight 83.01 kg Chair [facility] 13:47-0400 12-23-2021 Diastolic blood 67 mm[Hg] [facility] 13:47-0400 pressure 12-23-2021 Heart rate 66 /min [facility] 13:47-0400 12-23-2021 Respiratory rate 18 /min [facility] 13:47-0400 12-23-2021 SaO2% (BldA) [Mass 94 % [facility] 13:47-0400 fraction] 12-23-2021 Systolic blood 117 mm[Hg] Chair [facility] 13:47-0400 pressure 11-24-2021 Body temperature 97 [degF] [facility] 13:40-0400 Work Phone: 11-24-2021 Diastolic blood 61 mm[Hg] Chair [facility] 13:40-0400 pressure Work Phone: 11-24-2021 Heart rate 80 /min [facility] 13:40-0400 Work Phone: 11-24-2021 Respiratory rate 18 /min [facility] 13:40-0400 Work Phone: 11-24-2021 Systolic blood 95 mm[Hg] Chair [facility] 13:40-0400 pressure Work Phone: 11-24-2021 Body weight 83.28 kg Chair [facility] 13:33-0400 Work Phone: 11-10-2021 Body temperature 97.9 [degF] [facility] [id number] Work Phone: 11-10-2021 Body weight 79.92 kg Chair [facility] 12:52-0400 Work Phone: 11-10-2021 Diastolic blood 64 mm[Hg] [facility] 12:52-0400 pressure Work Phone: 11-10-2021 Heart rate 98 /min [facility] 12:52-0400 Work Phone: 11-10-2021 Respiratory rate 20 /min [facility] 12:52-0400 Work Phone: 11-10-2021 SaO2% (BldA) [Mass 97 % [facility] 12:52-0400 fraction] Work Phone: 11-10-2021 Systolic blood 119 mm[Hg] [facility] 12:52-0400 pressure Work Phone: 10-30-2021 Heart rate 88 /min Rick Feng MD [facility] 09:59-0400 Work Phone: 10-30-2021 Respiratory rate 20 /min Rick Feng MD [facility] 09:59-0400 Work Phone: 10-30-2021 SaO2% (BldA) [Mass 97 % Rick Feng MD [facility] 09:59-0400 fraction] Work Phone: 09-23-2021 Body weight 80.29 kg FORTINO Becerra PA-C [facility] 14:44-0400 Work Phone: 09-23-2021 Diastolic blood 70 mm[Hg] NA Becerra ANDREA [facility] 14:44-0400 pressure Work Phone: 09-23-2021 Heart rate 85 /min NA Hernan RICARDOJorge AlbertoDeja [facility] 14:44-0400 Work Phone: 09-23-2021 SaO2% (BldA) [Mass 96 % NA Becerra ANDREA [facility] 14:440400 fraction] Work Phone: 09-23-2021 Systolic blood 120 mm[Hg] NA Hernan RICARDOJorge AlbertoDeja [facility] 14:440400 pressure Work Phone: 09-18-2021 Body height 160 cm Asia Calderón MD [facility] 11: Work Phone: 09-18-2021 Body temperature 96.21 [degF] Asia Calderón MD [facility] 11: Work Phone: 09-18-2021 Body weight 81.19 kg Asia Calderón MD [facility] 11: Work Phone: 09-18-2021 Diastolic blood 88 mm[Hg] Asia Calderón MD [facility] 11: pressure Work Phone: 09-18-2021 Heart rate 82 /min Asia Calderón MD [facility] 11: Work Phone: 09-18-2021 Respiratory rate 20 /min Asia Calderón MD [facility] 11: Work Phone: 09-18-2021 Systolic blood 148 mm[Hg] Asia Calderón MD [facility] 11: pressure Work Phone: 09-08-2021 Body height 162.6 cm Yovani Piedra DO [facility] 15: Work Phone: 09-08-2021 Body weight 82.42 kg Yovani Piedra DO [facility] 15: Work Phone: 09-08-2021 Diastolic blood 58 mm[Hg] Yovani Piedra DO [facility] 15: pressure Work Phone: 09-08-2021 Heart rate 86 /min Yovani Piedra DO [facility] 15: Work Phone: 09-08-2021 SaO2% (BldA) [Mass 94 % Yovani Piedra DO [facility] 15:040 fraction] Work Phone: 09-08-2021 Systolic blood 102 mm[Hg] Yovani Piedra DO [facility] 15: pressure Work Phone: 08-07-2021 Body weight 84.37 kg Respiratory [facility] 13:50-0400 Work Phone: 08-07-2021 Diastolic blood 77 mm[Hg] Jacquelin Patel PA-C [facility] 13:50-0400 pressure Work Phone: 08-07-2021 Heart rate 93 /min Jacquelin Patel PA-C [facility] 13:50-0400 Work Phone: 08-07-2021 SaO2% (BldA) [Mass 96 % Jacquelin Patel PA-C [facility] 13:50-0400 fraction] Work Phone: 08-07-2021 Systolic blood 131 mm[Hg] Jacquelin Patel PA-C [facility] 13:50-0400 pressure Work Phone: 08-07-2021 Body height 162.6 cm Respiratory [facility] 13:000400 Work Phone: 08-07-2021 Diastolic blood 65 mm[Hg] Respiratory [facility]str [facility] 13:000400 pressure Work Phone: 08-07-2021 Heart rate 91 /min Respiratory W[facility] 13:00-0400 Work Phone: 08-07-2021 Respiratory rate 16 /min Respiratory Wstr [facility] 13:000400 Work Phone: 08-07-2021 SaO2% (BldA) [Mass 98 % Respiratory Wstr [facility] 13:000400 fraction] Work Phone: 08-07-2021 Systolic blood 119 mm[Hg] Respiratory Wstr [facility] 13:000400 pressure Work Phone: Encounters Encounter Date Encounter Type Care Provider Facility Start: 04-03-2022 Orders Only Asia Abel Work Phone: Gener [facility] Rheumatology and Arthritis Start: 03-30-2022 Telephone encounter Alexa Becerra PA-C [facility] Work Phone: Comment on above: Patient Update Start: 03-17-2022 ambulatory YANCI BECERRA Facility:[facility] End: 03-17-2022 Hospital Start: 03-16-2022 ambulatory Alexa BECERRA Facility:[facility] End: 03-16-2022 Start: 03-16-2022 ambulatory Chair 5 [facility] End: 03-16-2022 Work Phone: Comment on above: Other osteoporosis without c urrent pathological fracture (Primary Dx); 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) Start: 03-09-2022 Orders Only Asia england Work Phone: [place] [facility] Start: 03-04-2022 Documentation Mammography Coordinator [facility] procedure MAIN Start: 03-04-2022 Letter encounter Mammography Coordinator [facility] Department Start: 03-04-2022 Refill Alexa Becerra PA-C [facility] End: 03-04-2022 Work Phone: [place] Comment on above: Refill Request Start: 02-23-2022 [facility] End: 02-23-2022 Start: 02-16-2022 ambulatory Chair 4 [facility]emat[facility]/On col[facility] End: 02-16-2022 Comment on above: Other osteoporosis without c urrent pathological fracture (Primary Dx); 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) Start: 02-10-2022 Telephone encounter Asia Calderón MD [facility] [place] Work Phone: Gener al Rheumatology and Arthritis Comment on above: Orders (RECLAST) Start: 02-09-2022 Orders Only Asia Calderón MD [facility] [place] Work Phone: Gener al Rheumatology and Arthritis Start: 02-06-2022 ambulatory YANCI BECERRA Facility:[facility] End: 02-06-2022 [facility] Start: 02-06-2022 Patient encounter Junior Mathew MD [facility] End: 02-06-2022 procedure Work Phone: Comment on above: Interstitial pulmonary disea se (HCC) (Primary Dx); Rheumatoid lung (HCC); Bronchiectasis without compl ication (HCC); Moderate COPD (chronic obstr uctive pulmonary disease) (HCC); Chronic respiratory failure with hypoxia (HCC) Start: 01-30-2022 ambulatory Alexa BECERRA [facility] End: 01-30-2022 Start: 01-30-2022 Patient encounter Asia Calderón MD [facility] End: 01-30-2022 procedure Work Phone: Gener al Rheumatology and Arthritis Comment on above: 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); Vitamin D deficiency; Other osteoporosis without c urrent pathological fracture Start: 01-19-2022 ambulatory Alexa BECERRA [facility] End: 01-19-2022 Start: 01-12-2022 Orders Only Asia Calderón MD [facility] Work Phone: Rheum atology and Arthritis Comment on above: Population Health Navigation Outreach ([facility] care gaps) Start: 01-01-2022 ambulatory Alexa BECERRA [facility] End: 01-01-2022 Start: 01-01-2022 Patient encounter Sirena Royal CUSTOMER SECURITY CLERK.CITY PLANNING ENGINEER [facility] End: 01-01-2022 procedure Work Phone: GENER AL SPINE AND PAIN Comment on above: Chronic pain syndrome (Prima ry Dx); Generalized OA; Myofascial pain Start: 12-26-2021 ambulatory YANCI BECERRA Facility:[facility] End: 12-27-2021 Start: 12-23-2021 ambulatory Chair 1 [facility]emat[facility]/On cology End: 12-23-2021 Comment on above: 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) (Violette joseph Dx) Start: 12-10-2021 ambulatory Alexa BECERRA Facility:[facility] Start: 12-10-2021 [facility]EL [facility] DENS[facility] End: 12-10-2021 visit by physician MAKI Comment on above: 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 of 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 steroids [Z79.52] Start: 12-08-2021 ambulatory Mikal Cuellar PA-C [facility] End: 12-08-2021 Work Phone: Gener al Rheumatology and Arthritis Comment on above: 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) (Primary Dx); Current chronic use of syste riccardo steroids; High risk medication use; Vitamin D deficiency Start: 12-08-2021 Telemedicine Mikal Cuellar PA-C [facility] End: 12-08-2021 consultation with Work Phone: patient Start: 12-05-2021 Refill Asia Calderón MD [facility] Work Phone: [facility] Rheumatology and Arthritis Comment on above: Refill Request Start: 11-27-2021 Telephone encounter Rick Feng MD Radiology Work Phone: Comment on above: Medication Problem Start: 11-24-2021 ambulatory Chair 2 [facility] Hematology/On cology End: 11-25-2021 Work Phone: Comment on above: 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) (Violette joseph Dx) Start: 11-12-2021 ambulatory Alexa Becerra PA-C Internal Medicine Main Work Phone: Genny s Start: 11-10-2021 ambulatory Chair 2 [facility]emat[facility]/On cology End: 11-10-2021 Work Phone: Comment on above: 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) (Violette joseph Dx) Start: 11-05-2021 ambulatory Alexa BECERRA Facility:[facility] End: 11-05-2021 Start: 11-04-2021 Refill M Adelina Becerra PA-C Family M sarah Lieberman Work Phone: Comment on above: Refill Request Start: 10-30-2021 ambulatory RICK FENG Facility:[facility] End: 10-30-2021 Start: 10-30-2021 Patient encounter [facility] End: 10-30-2021 procedure Work Phone: GENER AL SPINE AND PAIN Comment on above: Chronic pain syndrome (Prima ry Dx); Generalized OA; Myofascial pain Start: 10-23-2021 Telephone encounter Asia Calderón MD [facility] Work Phone: Rheum atology Comment on above: APPROVED-NO PA REQ ([place] APPROVED NO PA REQ [id number] 11.10.2021 - 11.10.2022 12) Start: 10-23-2021 ambulatory YANCI BECERRA Facility:[facility] End: 10-23-2021 Hospital Start: 10-22-2021 ambulatory Asia Calderón MD [facility] End: 10-22-2021 Work Phone: Rheum atology and Arthritis Comment on above: 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) (Primary Dx); longterm current use of sys temic steroids; Current chronic use of syste riccardo steroids; Pain in joint, multiple site s; High risk medication use Start: 10-22-2021 Telemedicine Asia Calderón MD [facility] End: 10-22-2021 consultation with Work Phone: patient Start: 10-13-2021 ambulatory Peggy Bekesz furnace installer helper Ca re Management Comment on above: ACM INEZ RN (Suspect Condition Review) Start: 09-23-2021 ambulatory YANCI BECERRA Facility:[facility] End: 09-23-2021 Hospital Start: 09-23-2021 Patient encounter Alexa Jarrett [facility] End: 09-23-2021 procedure Work Phone: Comment on above: Hypertriglyceridemia (Primar y Dx); Paroxysmal atrial fibrillati on (HCC); Chronic respiratory failure with hypoxia (HCC); Type 2 diabetes mellitus wit hout complication, without long-term current use of insulin (HCC); 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); Elevated ferritin; Iatrogenic adrenal insuffici ency (HCC); Lung nodule, multiple; longterm current use of imm unosuppressive drug; Pre-diabetes; CESAR (obstructive sleep apnea ); Hyperthyroidism Start: 09-19-2021 ambulatory YANCI BECERRA Facility:[facility] End: 09-19-2021 Hospital Start: 09-19-2021 Patient encounter Isaac Panchal OD Opht halmology End: 09-19-2021 procedure Work Phone: Comment on above: Type 2 diabetes mellitus wit hout retinopathy (HCC) (Primary Dx); Vitreous floaters of both ey es; Pseudophakia of both eyes; After cataract of left eye n ot obscuring vision Start: 09-18-2021 ambulatory Alexa ADELINA BECERRA [facility] End: 09-19-2021 Start: 09-18-2021 ambulatory Alexa ADELINA BECERRA [facility] End: 09-18-2021 Start: 09-18-2021 Patient encounter Asia Calderón MD [facility] End: 09-18-2021 procedure Work Phone: Gener al Rheumatology and Arthritis Comment on above: 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) (Primary Dx); Pain in joint, multiple site s; 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 of sys temic steroids; Osteoporosis, unspecified os teoporosis type, unspecified pathological fracture presence Start: 09-11-2021 Refill Alexa Becerra PA-C [facility] Work Phone: Comment on above: Refill Request Start: 09-09-2021 ambulatory [facility] Facility:[facility] End: 09-09-2021 Hospital Start: 09-08-2021 ambulatory [facility] Facility:[facility] End: 09-08-2021 Hospital Start: 09-08-2021 Patient encounter Yovani Piedra DO Card iology End: 09-08-2021 procedure Work Phone: Comment on above: Paroxysmal atrial fibrillati on (HCC) (Primary Dx); Inappropriate sinus tachycar ivette; Chronic anticoagulation; Hyperlipidemia, mixed; ILD (interstitial lung disea se) ([facility]); Panlobular emphysema (HCC); Chronic respiratory failure with hypoxia (HCC); Rheumatoid arthritis involvi ng multiple sites with positive rheumatoid factor ([facility]) Start: 08-21-2021 Refill Alexa Lieberman Work Phone: Comment on above: Refill Request Start: 08-07-2021 ambulatory [facility] Facility:[facility] End: 08-07-2021 Hospital Start: 08-07-2021 ambulatory Respiratory Therapist [facility] Pulmonary Medicine End: 08-07-2021 Work Phone: Comment on above: Spirometry Start: 08-07-2021 Patient encounter Respiratory Therapist [facility] Juliane LIEBERMAN [facility] End: 08-07-2021 procedure Work Phone: EDI MANCILLA Comment on above: Stage 3 severe COPD by GOLD classification (HCC) (Primary Dx); Bronchiectasis without compl ication (HCC); ILD (interstitial lung disea se) ([facility]); Chronic respiratory failure with hypoxia (HCC) Start: 08-01-2021 Telephone encounter Alexa Oliva ly Medicine Work Phone: Trav lee Comment on above: Medication Request Start: 06-23-2021 [facility] Facility:[facility] End: 06-23-2021 Start: 06-19-2021 ambulatory [facility] Facility:[facility] End: 06-19-2021 Start: 06-10-2021 ambulatory Alexa BECERRA Facility:[facility] End: 06-10-2021 Start: 05-12-2021 ambulatory Alexa BECERRA [facility] End: 05-13-2021 Start: 04-25-2021 ambulatory Alexa BECERRA [facility] End: 04-25-2021 Start: 04-01-2021 ambulatory YANCI BECERRA [facility] End: 04-01-2021 Procedures Date Procedure Procedure Detail Performing Clin ician Start: 03-16-2022 Creatinine blood Asia Pereyra ma, MD Work Phone: Start: 03-04-2022 Mammography NA Becerra PA-C Work Phone: Start: 10-30-2021 Adult depression Rick Feng MD screening assessment Work Phone: Start: 08-07-2021 Spmtry w/vc expiratory Melonynife r Alexa Jorge PA-C End: 08-07-2021 colt w/wo mxml vol vntj Work Phon e: Start: 10-09-2019 Colonoscopy NA Becerra PA-C Work Phone: Start: 02-13-2019 Adult depression NA Becerra PA- C screening assessment Work Phone: Start: 12-26-2018 Mammography NA Becerra PA-C Work Phone: Plan of Treatment Date Care Activity Detail Author Start: Colonoscopy COLONOSCOPY [facility] 10-08-2029 Start: COLORECTAL CANCER COLORECTAL CANCER SCREENING [facility] 10-08-2029 SCREENING Start: Urine microalbumin DTAP,TDAP,TD (2 - Td or Tdap) [facility] 11-28-2028 profile Start: Mammography MAMMOGRAM [facility] 03-04-2023 Start: ANNUAL PCP TEAM ANNUAL PCP TEAM CHRONIC [facility] 12-26-2022 CHRONIC DISEASE VISIT DISEASE VISIT Start: Adult depression DEPRESSION SCREENING [facility] 10-30-2022 screening assessment Start: ANNUAL PCP TEAM ANNUAL PCP TEAM CHRONIC [facility] 09-23-2022 CHRONIC DISEASE VISIT DISEASE VISIT Start: Hepatitis C antibody, DILATED RETINAL EXAM [facility] 09-19-2022 confirmatory test Start: ANNUAL PCP TEAM [facility]NU[facility] CHRONIC DISEASE VISIT DISEASE VISIT Start: PNEUMOCOCCAL (4 - PNEUMOCOCCAL (4 - PPSV23 if [facility] 2022 PPSV23 if available, available, else PCV20) else PCV20) Start: PNEUMOCOCCAL (4 - PNEUMOCOCCAL (4 - PPSV23 or Cl [facility] 2022 PPSV23 or PCV20) PCV20) Start: HPV TESTING HPV TESTING [facility] 03-26-2022 Start: PAP TESTING PAP TESTING [facility] 03-26-2022 Start: Hemoglobin HBA1C [facility] 03-12-2022 A1c/Hemoglobin.total in Blood Start: 12-24-2021 Hemoglobin HGB A1C Lab Routine Type 2 [facility] End: 02-23-2022 A1c/Hemoglobin.total diabetes mellitus without W ork Phone: in Blood complication, without long-term current use of insulin (HCC) Hyperthyroidism Hypertriglyceridemia Expected: 12/24/2021, Expires: 02/23/2022 Comment on above: Expected: 12/24/2021, s: 02/23/2022 Start: 12-24-2021 LIPID PANEL LIPID PANEL BASIC Lab Routine [facility] End: 02-23-2022 BASIC Type 2 diabetes mellitus Work Ph one: without complication, without long-term current use of insulin (HCC) Hyperthyroidism Hypertriglyceridemia Expected: 12/24/2021, Expires: 02/23/2022 Comment on above: Expected: 12/24/2021, s: 02/23/2022 Start: 12-18-2021 Influenza vaccination INFLUENZA (#1) [facility] Start: 09-27-2021 Hepatitis C antibody, DILATED RETINAL EXAM [facility] confirmatory test Start: 07-03-2021 COVID-19 VACCINE (4 - COVID-19 VACCINE (4 - Cl [facility] Booster for Pfizer Booster for Pfizer series) series) Start: 06-27-2021 COVID-19 VACCINE (4 - COVID-19 VACCINE (4 - Cl [facility] Booster for Pfizer Booster for Pfizer series) series) Start: 06-17-2021 Hepatitis B surface LDL CHOLESTEROL [facility] antibody level Start: 05-30-2021 COVID-19 VACCINE (4 - COVID-19 VACCINE (4 - Cl [facility] Booster for Pfizer Booster for Pfizer series) series) Start: 04-19-2021 DEPRESSION ASSESSMENT DEPRESSION ASSESSMENT [facility] Start: 03-05-2021 Hepatitis B screening URINE [facility] ALBUMIN:CREATININE RATIO Start: 12-18-2020 Hemoglobin HBA1C [facility] A1c/Hemoglobin.total in Blood Start: 02-14-2020 Adult depression DEPRESSION SCREENING [facility] screening assessment Start: 12-27-2019 Mammography MAMMOGRAM [facility] Start: 12-01-2019 FECAL OCCULT BLOOD FECAL OCCULT BLOOD [facility] Start: 2007 SHINGRIX VACCINE (1 of SHINGRIX VACCINE (1 of [facility] 2) 2) Start: 2002 COLOGUARD (FIT-DNA) COLOGUARD (FIT-DNA) [facility] Start: [address] COLONOGRAPHY [facility] Start: 2002 SIGMOIDOSCOPY SIGMOIDOSCOPY [facility] Start: 1976 SHINGRIX VACCINE (1 of SHINGRIX VACCINE (1 of [facility] 2) 2) Start: 1975 HIV SCREENING HIV SCREENING [facility] Start: 1967 3 comp foot exam DIABETIC FOOT EXAM [facility] completed Ct thorax w/o contrast CT [facility] End: 03-08-2023 material Radiology Routine Work Phone: Interstitial pulmonary disease (HCC) 1 Occurrences starting 02/06/2022 until 03/08/2023 Comment on above: 1 Occurrences starting 02/06 until 03/08/2023 Dxa bone density DXA-AXIAL SKELETON [facility] End: 10-18-2022 study 1/> sites Radiology Routine Long Work Phon e: axial skel term current use of systemic steroids Osteoporosis, unspecified osteoporosis type, unspecified pathological fracture presence Rheumatoid arthritis involving multiple sites with positive rheumatoid factor (HCC) 1 Occurrences starting 09/18/2021 until 10/18/2022 Comment on above: 1 Occurrences starting 09/18 until 10/18/2022 Dxa bone density study 1/> sites [facility] End: 12-10-2021 axial skel Work Phone: Comment on above: 1 Occurrences starting 12/10 until 12/10/2021 Screening mammography ERNIE SCREENING [facility] End: 12-12-2022 bi 2-view breast inc Radiology Routine Work Phon e: cad Encounter for screening mammogram for breast cancer 1 Occurrences starting 11/12/2021 until 12/12/2022 Comment on above: 1 Occurrences starting 11/12 until 12/12/2022 [facility] Immunizations Immunization Date Immunization Notes Care Provider Facility 02-06-2021 influenza, injectable, NA Becerra PA-C [facility] quadrivalent, contains Work Phone: Work Phone: preservative 07-27-2020 COVID-19 vaccine, age NA Becerra PA-C [facility] 12+ yr ([employer] Work Phone: Work Phone: - PURPLE TOP) 07-06-2020 COVID-19 vaccine, age NA Becerra PA-C [facility] 12+ yr ([employer] Work Phone: Work Phone: - PURPLE TOP) 02-03-2020 influenza, seasonal, NA Becerra PA-C [facility] injectable, preservative Work Phone: Work Phone: free 03-02-2019 pneumococcal conjugate NA Becerra PA-C [facility] vaccine, 15 valent Work Phone: 02-10-2019 influenza, injectable, NA Becerra PA-C [facility] quadrivalent, contains Work Phone: preservative 01-04-2019 influenza, seasonal, NA Becerra PA-C [facility] injectable, preservative Work Phone: [phone] free 11-28-2018 tetanus toxoid, reduced NA Becerra PA-C [facility] diphtheria toxoid, and Work Phone: Work Phone: acellular pertussis vaccine, adsorbed 03-24-2018 influenza, injectable, NA Becerra PA-C [facility] quadrivalent, contains Work Phone: preservative 01-19-2017 influenza, injectable, NA Becerra PA-C [facility] quadrivalent, Work Phone: preservative free 01-19-2017 pneumococcal [facility], Work Phone: 23 valent 01-15-2012 influenza virus vaccine, NA Becerra PA-C [facility] unspecified formulation Work Phone: 03-10-2011 influenza virus vaccine, NA Becerra PA-C [facility] unspecified formulation Work Phone: 03-10-2011 pneumococcal NA [facility] polys[facility] vaccine, Work Phone: 23 valent Payers Date Payer Category Payer Medicare UHC MEDICARE UHC DUAL [id number] COMPLETE O SNP [id number] 2021-Present [id number] [address] [place] [id number] Medicare 2021 Medicare UHC MEDICARE UHC DUAL [id number] COMPLETE HMO SNP [id number] 2021-Present [phone] [address] [place] [address] Medicare 2021 Unknown [id number] 2020 Medicaid [employer] [id number] [facility] MEDICAID [id number] 2020-Present [phone] [address] [place] [address] Medicaid 2020 Medicaid [employer] [facility] [id number] [id number] [employer] [id number] 2020-Present [phone] [address] [place] [address] Medicaid 2020 Medicaid [id number] Social History Date Type Detail Facility Start: 02-16-2011 Tobacco smoking status [facility]oker [facility] End: 12-26-2021 [facility] Start: 01-01-1970 History of tobacco use Current smoker [facility] End: 09-09-2010 Start: 02-16-2011 Cigarettes smoked current 0.5 [facility] End: 12-26-2021 (pack per day) - Reported Start: 02-16-2011 Tobacco use and exposure Smokeless tobacco [facility] End: 12-26-2021 non-user Start: 06-23-2021 Alcohol intake Current non-drinker of [facility] End: 03-17-2022 alcohol (finding) Start: 07-17-2019 History SDOH Financial 5 [facility] End: 12-19-2021 Start: 07-17-2019 History SDOH Food Worry 1 [facility] End: 12-19-2021 Start: 07-17-2019 History SDOH Transport Med 2 [facility] End: 12-19-2021 Start: 1955 Sex Assigned At Not on file [facility] Start: 07-28-2021 Exposure to SARS-CoV-2 Not sure [facility] End: 03-16-2022 (event) Start: 10-12-2021 Exposure to SARS-CoV-2 Unable to assess [facility] End: 10-22-2021 (event) Start: 01-01-1970 History of tobacco use Cigarette Smoker [facility] End: 09-09-2010 Start: 12-19-2021 History SDOH Alcohol Std 0 [facility] Drinks Start: 12-19-2021 History SDOH Social 98 [facility] Start: 12-19-2021 History SDOH Social 3 [facility] Living Medical Equipment Procedure Code Equipment Code Equipment Original Equipment Identifi er Dates Text Lens Iol Ultrasert [id number] Start: 18.5 - [id number] 12-15-2017 Lens Iol Ultrasert [id number] Start: 18.5 - [id number] 01-05-2018 Clinical Notes 05-12-2019 to 03-30-2022 Telephone Encounter - Leslie Walker Ma - 03/30/2022 5:02 PM ESTTelephone Encounter - Alexa Becerra PA-C - 03/30/2022 3:13 PM ESTTelephone Encounter - Suzy Haynes RN - 03/30/2022 10:00 AM EST Note Date & Type Note Facility 03-30-2022 Miscellaneous Formatting of this note migh t be different from the original. [facility] Notes notified of provider message Formatting of this note might be differe nt from the original. Sounds like the appropriate treatment wa s completed,. Let me know if anything is worsening. 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 Please let me know if she is worsening. Thanks, Rufino Becerra PA-C Formatting of this note might be differe nt from the original. Patient's Hayden call ing to update Rufino Becerra on patient. Hayden reports pt was taken to ER last night by squad due to diarrhea and weakness. (ER Hospital name not obtained). He reports patient w as told she had a viral infe ction and was given 2 bags of IV fluid and sent home. No new medications ordered. Pt is not sure if she was tested for covid or influenza-she states she does not recall havin g her nose swabbed at all at ER. Had labs drawn and Hayden states they were okay. Pt has no fever, body aches, or SOB. Pt does have mild cough, mild headache and nausea. Drinking water as best as she can . Hayden states he will get p t some pedialyte. Pt vomited once last night after taking cough syrup. Home care, symptom management, rest and fluids encouraged again by this nurse. Hayden asking if Rufino Becerra has any maverick tional advise for patient? Please call Hayden with update. Thank you . documented in this encounter 03-17-2022 Note HNO ID: [id number] [facility] Author: Yovani Piedra, DO Carlos andrade Service: ? Author Type: Physician Type: Progress Notes Filed: 03/17/2022 3:48 PM Note Text: [facility] Heart and V[facility] [place] Sanjiv Sprague Department of Cardiovascular Medicine SECTION OF REGIONAL CARDIOLOGY SUHA: 09/08/2021 Viviana Santana is a 66 year old female wit h a history of shortness of breath, palpitations and atrial fibrilla tion who is here today for follow up. HPI: She is doing relatively well since last visit with no cardiac complaints. She continues with pulmonary challenges and has O2, 3L ATC with best pulse ox ~ 91%. She is off steroids for the month and doing ok. She continues with inhaler twice a day and a erosols QID. . She reports chronic dyspnea on exertion with mild efforts primarily related to her CILD. Denies chest pain, orthopnea, PND, palpitations, lightheadedness, dizziness, syncope, or edema. Patient denies any regular aerobic exercise. Prior history: 04/01/20 She has been doing well since last visit other than she was admitted in January 2020 with pneumonia and respirat ory failure again. She did got to [facility] for pneu monia admit in January 2019: Preadmission evaluation: SOB and cough x 2 days. No fever. had URI. Which facility: [facility] Dates of visit: !-02/02/19 Primary Diagnosis/es: MSSA, Serratia marcescans pneumonia Chronic hypoxic respiratory failure COPD Secondary: Chronic prednisone Hyperthyroidism ILD Multiple lung nodules CESAR Chronic atrial fibrillation Pre-diabetes RA Chronic immunosuppressant drug therapy Type 2 DM Testing done: resp cultures positive as above sensitiv e to levaquin 01/30/19 WBC 19.6 hgb 10.6 chems WNL exc ept alb 2.7, glob 5.2 02/01/19 WBC 13.1 hgb 8.8 RDW WNL. 01/30/19 ABG 7.48-31.8-70--23.7-95% Negative legionella, Atrep Pneum, Resp v irus panel Treatment given/Hospital course: IV ATB, O2. Improved. D/C in stable condition with prednisone 40mg daily and levaquin 750mg x 1 week Current symptoms: improved. Finished ant ibiotics. Feels back to baseline. Saw Dr. Sofia and started on Gabapenti n 100mg TID At prior visit did not start Ivabradine due to cost. Patient assistance information was printed off for her at t [facility] visit. She did not send in the paperwork because she's had significant life stressors over the past month. Her son is in rehab for a drug ad diction, and this has consumed the majority of her time. She was admitted [facility] in April 2017 with sepsis and pneumonia and acute resp iratory failure requiring ventilation. During her hospital admissi on she was noted to be in atrial fibrillation with rapid ventricular resp onse. Her heart rate was controlled with beta blockers. She denie s any prior history of atrial fibrillation. She was found to have infl uenza as well. During her hospitalization she was noted to have a very low TSH at 0.02 and elevated T4 with 1.74. Her thyroid scan however w as not conclusive for hypothyroidism. She has known long-stand ing severe interstitial lung disease and bronchiectasis. She follows with pulmonary at the [facility] now. There was a note that they i ncreased her metoprolol to 50 twice a day of long acting in the hospit al however she was only taking 25 mg daily at this time. Her heart rate wa s 121 and sinus tachycardia. She is only able to walk a minimal amount in stores before she is short of breath. She is on home oxygen therapy. S he knows she did have a sensation rapid heartbeat during atrial fibrillation and has not had that sensation since. Patient was seen in the office on 019 where she was noted to be significantly tachycardic in the 120's. She has a long-standing history of severe interstitial lung disease and bro nchiectasis. She was diagnosed with inappropriate sinus tachycardia, an d has been maintained on Toprol-XL 50mg daily. She was started on Ivabradin e 2.5mg BID for better rate control. She did not start this medicati on because it was $95 a month and she cannot afford this. PAST MEDICAL HISTORY Diagnosis Date Anemia, unspecified Atrial fibrillation (HCC) 05/10/2017 admit [facility] new onset AF, hyperthyroid lb with normal thyroid scan Bronchiectasis (HCC) Cardiac disease 2020 pt does not know other than she has hea rt problems Chronic bronchitis (HCC) COPD (chronic obstructive pulmonary dise ase) (HCC) Chronic bronchitis by history. COVID-19 vaccine series completed 07-27-2020 2nd dose Pfizer Hyperglycemia 12/25/2016 Hyperthyroidism 05/10/2017 05/10/17 [facility] TSH 0.020. FT4 high 1.74 , FT3 high 1.83 Symptomatic afib with RVR. NM uptake: no focal areas of u ptake. TSab negative. Microsomal Ab neg Rheumatoid arthritis (HCC) PAST SURGICAL HISTORY Procedure Laterality Date COLONOSCOPY FLX DX W/COLLJ SPEC WHEN PFR 10/09/2019 Colonoscopy ESOPHAGOGASTRODUODENOSCOPY TRANSORAL IVETTE GNOSTIC (more content not included)... 03-04-2022 Miscellaneous Formatting of this note migh t be different from the original. [facility] Notes March 04, 2022 PID: [id number] Viviana Santana [address] [place] [phone] Dear Ms. Santana, Your recent breast imaging e xam on 03/04/2022 showed a possible finding that requires additional imaging studies for a complete evaluation. Most such findings are probably benign (not cancer). If you have a healthcare pro vider who ordered/prescribed your screening mammogram: Please call [phone] or [phone]: [phone] to schedule an appointment for your additional imaging (if you have not already done so). If you DO NOT have a [facility] are provider (ie you did not have an order/prescription for your screening mammogram): Please call to schedule an appointment for your additional imaging (if you have not already done so). You must have an order/presc ription from your physician when calling to schedule your appointment. If your order/prescription is not electronic, you must bring the hard copy with you on the day of your exam to avoid delays. Your imaging studies and rep orts are kept on file at [facility] as part of your permanent medical record, and are available for your continuing care. Thank you for allowing us to help in harish ting your health care needs. Sincerely, Dr. Henderson Interpreting Radiologist [facility] (Additional imaging) documented in this encounter 03-04-2022 Note HNO ID: [id number] [facility] Author: Tammi Cates Missy[employer] Candy [facility] [facility] Service: ? Author Type: Basin [place] Type: Progress Notes Filed: 03/04/2022 1:52 PM Note Text: Radiology Service Progress Note PATIENT NAME: Viviana Santana DATE OF SERVICE: March 04, 2022 TIME: 1:52 PM PATIENT IDENTITY VERIFICATION COMPLETED USING TWO (2) IDENTIFIERS: Name and Date of confirmed by patient moira narvaez. FALL SCREENING: Has the patient had 2 fa lls in the last year or 1 fall with injury or currently using an Ambula tory Assistive Device (Walker, Cane, Wheelchair, Crutches, etc.)? No PATIENT GENDER DATA: Female. s tatus: : No status: NO. PATIENT RELEVANT IMPLANT DATA REVIEWED: Not Applicable RADIOLOGY DEPARTMENT: Mammography PERIPHERAL IV DATA: Not applicable SIGNED BY: Tammi Cates Missy's Candy March 04, 2022 1:52 PM 03-04-2022 Miscellaneous Formatting of this note is d ifferent from the original. [facility] Notes Patient has been identified by name and date of : Yes Last office visit in this department: 12/26/2021 RX INSTRUCTIONS: Patient aware RX will be sent to pharmac y. No need to notify patient. Patient phones requesting refills as fol lows: Requested Prescriptions Pending Prescriptions Disp Refills gabapentin (NEURONTIN) 100 mg capsule 12 0 capsule 5 Sig: Take 2 capsules by mouth twice mohsen y for 180 days. gabapentin (NEURONTIN) 400 mg capsule 90 capsule 5 Sig: Take 1 capsule by mouth three times daily for 180 days. Please review and advise. Sayda Tyson Pss documented in this encounter 02-23-2022 Note HNO ID: [id number] [facility] Author: RT Conchis(R) [facility] Service: ? Author Type: Basin Cleaner Type: Progress Notes Filed: 02/23/2022 1:50 PM Note Text: Radiology Service Progress Note PATIENT NAME: Viviana Santana DATE OF SERVICE: February 23, 2022 TIME: 1:50 PM PATIENT IDENTITY VERIFICATION COMPLETED USING TWO (2) IDENTIFIERS: Name and Date of confirmed by patient v brice. FALL SCREENING: Has the patient had 2 fa lls in the last year or 1 fall with injury or currently using an Ambula tory Assistive Device (Walker, Cane, Wheelchair, Crutches, etc.)? No PATIENT GENDER DATA: Female. s tatus: : No status: NO. PATIENT RELEVANT IMPLANT DATA REVIEWED: Yes RADIOLOGY DEPARTMENT: CT; Exam(s) Comple meredith: Chest PERIPHERAL IV DATA: Not applicable SIGNED BY: RT Tommy(R) February 23, 2022 1:50 PM 02-10-2022 Miscellaneous Addended by: ASIA CALDERÓN on: 1 10:30 AM [facility] Notes Modules accepted: Orders Formatting of this note might be differe nt from the original. Patient does not have active orders for Reclast. Please place orders so we can get her sc heduled at [facility]. Thanks, Sayda Jimenez LPN documented in this encounter 02-06-2022 Note HNO ID: [id number] [facility] Author: MD Adore Newman Service: ? Author Type: Physician Type: Progress Notes Filed: 02/06/2022 8:36 PM Note Text: . [facility] [place] Note Patient name: Viviana Santana PCP: Alexa Becerra PA-C CC: Follow-up COPD HPI: Viviana Santana 66 year old obese fema le former smoker (quitting 2010) with PMH significant for COPD, atrial fi brillation, chronic hypoxemic respiratory failure, bronchiectasis, hyp othyroidism, rheumatoid arthritis, ILD former patient of Dr. Freeman. Last hospitalized two years ago for pneu monia. She has chronic sputum production, yellow-green in color, not d ifficult to expectorate. Dyspnea on exertion. Denies audible wheezing or chest pain. She is currently not on inhaled therapy. 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 Current tr eatment consists of prednisone 10 mg a day, Arava 20 mg a day, Orencia. Up dated pulmonary function tests combined moderate obstruction and restri ction and moderate reduction in diffusing capacity. Last chest CT over a year ago which showed extensive fibrotic changes with bronchiectasis and focal area of possible organizing pneumonia. No recent hospitalization for pneumonia. No recent treatment for bronchitis with antibiotics. DME: [facility], 3 L DATA: PFT 07/2021: Review of pulmonary function test show c ombined obstruction and restriction with low diffusing capacity Labs: Component Ref Range AND Units 2 wk ago (01/19/22) WBC 3.70 - 11.00 k/uL 12.57 High RBC 3.90 - 5.20 m/uL 3.73 Low Hemoglobin 11.5 - 15.5 g/dL 11.3 Low Hematocrit 36.0 - 46.0 % 38.4 MCV 80.0 - 100.0 fL 102.9 High MCH 26.0 - 34.0 pg 30.3 MCHC 30.5 - 36.0 g/dL 29.4 Low RDW-CV 11.5 - 15.0 % 13.5 Platelet Count 150 - 400 k/uL 294 MPV 9.0 - 12.7 fL 10.6 Neut% % 77.4 Abs Neut 1.45 - 7.50 k/uL 9.72 High Lymph% % 12.4 Abs Lymph 1.00 - 4.00 k/uL 1.56 Washburn% % 5.5 Abs Washburn <0.87 k/uL 0.69 Eosin% % 3.3 Abs Eosin <0.46 k/uL 0.42 Baso% % 1.0 Abs Baso <0.11 k/uL 0.13 High Immature Gran % % 0.4 Abs Immature Gran <0.10 k/uL 0.05 NRBC /100 WBC 0.0 Absolute nRBC <0.01 k/uL <0.01 Diff Type Auto Imaging / Diagnostic Studies: Reviewed CT from [facility] 08/2020: I personally reviewed images which show emphysema, extensive fibrosis and bronchiectasis as well as a focal area o f possible organizing pneumonia PAST MEDICAL HISTORY Diagnosis Date Anemia, unspecified Atrial fibrillation (HCC) 05/10/2017 admit [facility] new onset AF, hyperthyroid lb with normal thyroid scan Bronchiectasis (HCC) Cardiac disease 2020 pt does not know other than she has hea rt problems Chronic bronchitis (HCC) COPD (chronic obstructive pulmonary dise ase) (HCC) Chronic bronchitis by history. COVID-19 vaccine series completed 07-27-2020 2nd dose Pfizer Hyperglycemia 12/25/2016 Hyperthyroidism 05/10/2017 05/10/17 [facility] TSH 0.020. FT4 high 1.74 , FT3 high 1.83 Symptomatic afib with RVR. NM uptake: no focal areas of u ptake. TSab negative. Microsomal Ab neg Rheumatoid arthritis (HCC) ALLERGIES Allergen Reactions Ragweed Other: See Comments Trees Other: See Comments Pamelor [Nortriptyl* Intolerance Dizziness leflunomide (ARAVA) 20 mg tablet Take 1 tablet by mouth once daily. cholecalciferol, Vitamin D3, (VITAMIN D3 ) 1,250 mcg (50,000 unit) cap capsule Take 1 capsule by mouth once florian ry month. predniSONE (DELTASONE) 5 mg tablet Take 0.5 tablets by mouth once daily. ferrous gluconate 324 mg (37.5 mg iron) tablet Take 1 tablet by mouth twice daily with meals. venlafaxine ER (EFFEXOR XR) 37.5 mg 24 h r capsule Take 1 capsule by mouth once daily. verapamil (CALAN, ISOPTIN) 80 mg tablet Take 0.5 tablets by mouth every 8 hours. gabapentin (NEURONTIN) 400 mg capsule Ta ke 1 capsule by mouth three times daily for 180 days. gabapentin (NEURONTIN) 100 mg capsule Ta ke 2 capsules by mouth twice daily for 180 days. metoprolol succinate ER (TOPROL XL) 100 mg Take 1 tablet by mouth once daily. rivaroxaban (XARELTO) 20 mg tablet Take 1 tablet by mouth daily with dinner. ipratropium-albuterol (DUONEB) 0.5 mg-3 mg(2.5 mg base)/3 mL nebu Inhale 3 mL as instructed four times daily. guaiFENesin (MUCINEX) 600 mg 12 hr table t Take 1 tablet by mouth twice daily. Miscellaneous Medical Supply Portable ox ygen concentrator 3l/min at all times. omeprazole (PRILOSEC) 40 mg capsule Take 1 capsule by mouth as needed. COMPOUNDED PRESCRIPTION Provide nebulize r accessory kit. DME: [facility]. COMPOUNDED PRESCRIPTION Accessories for nebulizer J43.1 Panlobular emphysema (HCC) (primar y encounter diagnosis) J84.9 ILD (interstitial lung disease) (H CC) COMPOUNDED PRESCRIPTION #1 Continuous Fl ow Stationary O2 Concentrator Sig: O2 2l/min liter flow Patient is to keep portablel concentrato r as well J43.2 Centrilobular emphysema (more cont ent not included)... 02-06-2022 History of Formatting of this note is different f rom the original. [facility] Present illness Narrative Images from the original note were not included. . [facility] [place] Note Patient name: Viviana Santana PCP: Alexa Becerra PA-C CC: Follow-up COPD HPI: Viviana Santana 66 year ol d obese female former smoker (quitting 2010) with PMH significant for COPD, atrial fibrillation, chronic hypoxemic respiratory failure, bronchiectasis, hypothyroidism, rheuma toid arthritis, ILD former patient of Dr Tj Freeman. Last hospitalized two years ago for pneumonia. She has chronic sputum production, yellow-green in color, not difficult to expectorate. Dyspnea on exertion. Denies audible wheezing or chest pain. She is currently not on inhaled the rapy. Established with a new powerhouse mechanic due to insurance change in coverage. Current treatment consists of prednisone 10 mg a day, Arava 20 mg a day, Orencia. Updated pul monary function tests combin ed moderate obstruction and restriction and moderate reduction in diffusing capacity. Last chest CT over a year ago which showed extensive fibrotic changes with bronchiectasi s and focal area of possible organizing pneumonia. No recent hospitalization for pneumonia. No recent treatment for bronchitis with antibiotics. DME: [facility], 3 L DATA: PFT 07/2021: Review of pulmonary function test show combined obstruction and restriction with low diffusing capacity Labs: Component Ref Range & Units 2 wk ago (01/19/22) WBC 3.70 - 11.00 k/uL 12.57 High RBC 3.90 - 5.20 m/uL 3.73 Low Hemoglobin 11.5 - 15.5 g/dL 11.3 Low Hematocrit 36.0 - 46.0 % 38.4 MCV 80.0 - 100.0 fL 102.9 High MCH 26.0 - 34.0 pg 30.3 MCHC 30.5 - 36.0 g/dL 29.4 Low RDW-CV 11.5 - 15.0 % 13.5 Platelet Count 150 - 400 k/uL 294 MPV 9.0 - 12.7 fL 10.6 Neut% % 77.4 Abs Neut 1.45 - 7.50 k/uL 9.72 High Lymph% % 12.4 Abs Lymph 1.00 - 4.00 k/uL 1.56 Washburn% % 5.5 Abs [place] <0.87 k/uL 0.69 Eosin% % 3.3 Abs Eosin <0.46 k/uL 0.42 Baso% % 1.0 Abs Baso <0.11 k/uL 0.13 High Immature Gran % % 0.4 Abs Immature Gran <0.10 k/uL 0.05 NRBC /100 WBC 0.0 Absolute nRBC <0.01 k/uL <0.01 Diff Type Auto Imaging / Diagnostic Studies: Reviewed CT from [facility] 08/2020: I personally reviewed images which show emphysema, extensive fibrosis and bronchiectasis as well as a focal area of possible organizing pneumonia PAST MEDICAL HISTORY Diagnosis Date Anemia, unspecified Atrial fibrillation (HCC) 05/10/2017 admit [facility] new onset AF, hyperthyroid lb with normal thyroid scan Bronchiectasis (HCC) Cardiac disease 2020 pt does not know other than she has hea rt problems Chronic bronchitis (HCC) COPD (chronic obstructive pulmonary dise ase) (HCC) Chronic bronchitis by history. COVID-19 vaccine series completed 07-27-2020 2nd dose Pfizer Hyperglycemia 12/25/2016 Hyperthyroidism 05/10/2017 05/10/17 [facility] TSH 0.020. F T4 high 1.74, FT3 high 1.83 Symptomatic afib with RVR. NM uptake: no focal areas of uptake. TSab negative. Microsomal Ab neg Rheumatoid arthritis (HCC) ALLERGIES Allergen Reactions Ragweed Other: See Comments Trees Other: See Comments Pamelor [Nortriptyl* Intolerance Dizziness leflunomide (ARAVA) 20 mg tablet Take 1 tablet by mouth once daily. cholecalciferol, Vitamin D3, (VITAMIN D3) 1,250 mcg (50,000 unit) cap capsule Take 1 capsule by mouth once every month. predniSONE (DELTASONE) 5 mg tablet Take 0.5 tablets by mouth once daily. ferrous gluconate 324 mg (37 .5 mg iron) tablet Take 1 tablet by mouth twice daily with meals. venlafaxine ER (EFFEXOR XR) 37.5 mg 24 hr capsule Take 1 capsule by mouth once daily. verapamil (CALAN, ISOPTIN) 8 0 mg tablet Take 0.5 tablets by mouth every 8 hours. gabapentin (NEURONTIN) 400 m g capsule Take 1 capsule by mouth three times daily for 180 days. gabapentin (NEURONTIN) 100 m g capsule Take 2 capsules by mouth twice daily for 180 days. metoprolol succinate ER (TOPROL XL) 100 mg Take 1 tablet by mouth once daily. rivaroxaban (XARELTO) 20 mg tablet Take 1 tablet by mouth daily with dinner. ipratropium-albuterol (DUONE B) 0.5 mg-3 mg(2.5 mg base)/3 mL nebu Inhale 3 mL as instructed four times daily. guaiFENesin (MUCINEX) 600 mg 12 hr table t Take 1 tablet by mouth twice daily. Miscellaneous Medical Supply Portable ox ygen concentrator 3l/min at all times. omeprazole (PRILOSEC) 40 mg capsule Take 1 capsule by mouth as needed. COMPOUNDED PRESCRIPTION Provide nebulize r accessory kit. DME: [facility]. COMPOUNDED PRESCRIPTION Accessories for nebulizer J43.1 Panlobular emphysema (HCC) (primar y encounter diagnosis) J84.9 ILD (interstitial lung disease) (H CC) COMPOUNDED PRESCRIPTION #1 Continuous Fl ow Stationary O2 Concentrator Sig: O2 2l/min liter flow Patient is to keep portablel concentrato r as well J43.2 Centrilobular emphysema (HCC) J84.9 ILD (interstitial lung disease) (H CC) J96.11 Chronic respiratory failure with hypoxia (HCC) COMPOUNDED PRESCRIPTION Face mask: hypoxia COMPOUNDED PRESCRIPTION Port able oxygen concentrator, setting 2 at rest, setting 3 with ambulation. (Patient taking differently: Portable oxygen concentrator, setting 2 at rest, setting 3 with ambulation. Is now taking 3 liters continuously) COMPOUNDED PRESCRIPTION Eval uate patient for portable pulse dose O2 concentrator. COMPOUNDED PRESCRIPTION Portable oxygen concentrator. acetaminophen (TYLENOL EXTRA STRENGTH) 500 mg tablet Take 1,000 mg by mouth every 6 hours as needed. budesonide-formoterol (SYMBI ELIF) 160-4.5 mcg/actuation inhaler Inhale 2 Puffs as instructed twice daily. ondansetron (ZOFRAN) 4 mg ta blet Take 1 tablet by mouth every 6 hours as needed for nausea/vomiting. (Patient not taking: No sig reported) Social History Tobacco Use Smoking status: Former Packs/day: 0.50 Years: 30.00 Pack years: 15.00 Types: Cigarettes Start date: 01/01/1970 Quit date: 09/09/2010 Years since quittin.4 Smokeless tobacco: Never Vaping Use Vaping Use: Never used Substance Use Topics Alcohol use: No Drug use: No FAMILY HISTORY Problem Relation Age of Onset Ischemic Heart Disease Father Cataract Father other (COPD, smoker) Father Cataract Mother other (COPD, smoker) Mother other (liver transplant) Sister Etiology of liver disease unknown to pat nishi. Heart Sister PAST SURGICAL HISTORY Procedure Laterality Date COLONOSCOPY FLX DX W/COLLJ SPEC WHEN PFR MD 10/09/2019 Colonoscopy ESOPHAGOGASTRODUODENOSCOPY TRANSORAL IVETTE GNOSTIC 10/09/2019 EGD LIG/TRNSXJ FLP TUBE ABDL/VAG APPR UNI/BI XCAPSL CTRC RMVL INSJ IO LENS PROSTH W/O ECP Right 12/15/2017 Cataract Extraction with PC IOL XCAPSL CTRC RMVL INSJ IO LENS PROSTH W/O ECP Left 01/05/2018 Cataract Extraction with PC IOL PMH, Social history, family history and surgical history reviewed and updated in EMR REVIEW OF SYSTEMS: CONSTITUTIONAL: No fevers, chills, night sweats, unintended weight loss HEENT: Denies nasal congestion/sinus sym ptoms, allergy problems. CARDIOVASCULAR: No chest pain, palpitati ons, orthopnea, PND PULM: See HPI GI: No dysphagia/odynophagia, problemati c reflux, constipation, diarrhea. : No urinary complaints, including dys uria, gross hematuria NEURO: No new balance proble ms, peripheral weakness/paresthesias or numbness of concern. MUSC-SKEL: Predominant hand joint pain with swelling with no erythema or warmth INTEGUMENTARY: No new skin changes or ra shes PHYSICAL EXAMINATION: BP 106/74 Pulse 88 Resp 20 Ht 5' 3 (1.60m) Wt 186 lb (84.4kg) SpO2 96[3L]% BMI 32.96 kg/(m^2). General Appearance: Age-appropriate fema le NAD Skin: Skin color, texture, turgor normal , no suspicious rashes or lesions. Head: Normocephalic, no masses, lesions, tenderness or abnormalities. Eyes: Sclera, conjunctiva normal Neck: No JVD, no masses, no adenopathy Lungs: Mild tachypnea, no ac cessory muscle usage, normal to percussion, bilateral moist crackles, no wheezing Heart: Regular rate and rhythm, no murmu rs gallops Extremities: No edema, mild clubbing Musculoskeletal: RA changes of the hands with ulnar deviation, no obvious active synovitis Assessment/Plan: 1. ILD -Last chest CT concerning for UIP patter n, possible rheumatoid lung -Needs updated CT of the chest -Recent data suggest improve ment in fibrotic lung disease related to rheumatoid arthritis with antifibrotic therapy 2. Rheumatoid lung -See #1 -Treatment for RA per rheumatology 3. Bronchiectasis -Pulmonary hygiene -May need to consider chronic azithromyc in therapy -Needs sputum culture 4. Moderate COPD -Start Symbicort 160/4.5 5. Chronic hypoxemic respiratory failure -Continue supplemental oxygen I spent a total of 46 minute s on the date of the service which included preparing to see the patient, [id number] patient care, completing clinical documentation, obtaining and/or reviewing separately obtained history, performing a medically appropriate examination, ordering medications, tests, or procedures, and independently interpreting results (not separately reported). Junior Mathew MD [facility] [place] documented in this encounter 01-30-2022 Note HNO ID: [id number] [facility] Author: Asia Calderón MD Center Service: ? Author Type: Physician Type: Progress Notes Filed: 01/30/2022 12:01 PM Note Text: RHEUMATOLOGY PROGRESS NOTE Patient is here for a follow up visit fo r Patient presents with: Rheumatoid Arthritis HPI: Viviana Santana is a 66 year old femal e who presents joint pain Last appt with Mikal virtual 12/08 Orencia IV every 4 weeks (first dose 10/18), has had 2 doses Arava 20 mg daily Prednisone 5 mg daily Off vit D 2-3 mo Pain in toes, intermittent, no swelling, AM stiffness lasting 30 min. she was started on nortriptyline by pain management which is helping with tingling- got dizzy, now taking venlafax ine which is helping. On pred 10 mg since 10/22/21. Brief Rheumatological history - Diagnosed with RA 2016. She was admitted at [facility] - double pneumonia, RA. She was seeing rheum but she had insurance conflicts. She was prescribed prednisone, gabapentin, A rava. She presented with toe tingling, knee, hand swelling, elbows, s houlders, neck. She was once diagnosed with anemia. not much improvem ent with Arava. Ran out of Arava few months ago. I am in pain all the ti me . Only steroids help. PCP sent pred She had shoulder injections. PAF, COPD on O2, ILD, DM2, polyneuropath y. She follows with pulm in [place]. RA, chronic steroids, adrenal insuff Family h/o autoimmune disease - father w ith psoriasis Smoking - ex smoker quit 2010 Interval Review of Systems CONSTITUTIONAL: Recent Weight change: No Fever: No EYES: Dryness in nose: No Dryness of mouth: No Oral ulcers: No CARDIOVASCULAR: Pain in chest: No RESPIRATORY: Shortness of breath: No Cough: No GASTROINTESTINAL: Nausea: No Vomiting: No Changes in bowel movements: No Jaundice: No Heartburn: No MUSCULOSKELETAL: Per HPI INTEGUMENTARY: Rash: No HEMATOLOGIC/LYMPHATIC: Anemia: No NEUROLOGICAL SYSTEM: Headaches: No Sensitivity or pain of hands and/or feet : No PSYCHIATRIC: Anxiety: No Poor sleep: No PAST MEDICAL HISTORY Diagnosis Date Anemia, unspecified Asthma Atrial fibrillation (HCC) 05/10/2017 admit Tatianna new onset AF, hyperthyroid lb with normal thyroid scan Cardiac disease 2020 pt does not know other than she has hea rt problems Chronic bronchitis (HCC) COPD (chronic obstructive pulmonary dise ase) (HCC) Chronic bronchitis by history. COVID-19 vaccine series completed 07-27-2020 2nd dose Pfizer Hyperglycemia 12/25/2016 Hyperthyroidism 05/10/2017 05/10/17 Tatianna TSH 0.020. FT4 high 1.74 , FT3 high 1.83 Symptomatic afib with RVR. NM uptake: no focal areas of u ptake. TSab negative. Microsomal Ab neg Rheumatoid arthritis (HCC) Leflunomide. Dayanna Silva MD. 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 Leflunomide, Dayanna Silva MD PAST SURGICAL HISTORY Procedure Laterality Date COLONOSCOPY FLX DX W/COLLJ SPEC WHEN PFR 10/09/2019 Colonoscopy ESOPHAGOGASTRODUODENOSCOPY TRANSORAL IVETTE GNOSTIC 10/09/2019 EGD LIG/TRNSXJ FLP TUBE ABDL/VAG APPR UNI/BI XCAPSL CTRC RMVL INSJ IO LENS PROSTH W/O ECP Right 12/15/2017 Cataract Extraction with PC IOL XCAPSL CTRC RMVL INSJ IO LENS PROSTH W/O ECP Left 01/05/2018 Cataract Extraction with PC IOL History Review: I have reviewed and nelia fied as needed, the following during this visit: Allergies, Past Medic al History, Past Surgical History, Past Family History, Past Social History . BP 130/78 Pulse 94 Temp (!) 34.8 ?C (94.6 ?F) (Temporal) Resp 20 LMP (LMP Unknown) SpO2 97% Physical Exam GENERAL: Well appearing, alert, comforta ble, in no acute distress, well-hydrated, well nourished. HEENT: Negative for external ears normal . Canals are clear. Both TMs visualized and are normal. Eye Exam norm al. External nose normal, no nasal ulcer or throat ulcer. NECK: NECK Supple, no adenopathy; thyroi d symmetric, normal size, no bruits CARDIAC: regular rate and rhythm, No mur mur asculated. and Equal peripheral pulses RESPIRATORY: Lungs clear to auscultation . No wheezing, rhonchi, rales VASCULAR: RRR without murmur, gallop, or rubs. No ectopy. NEURO: Motor and sensory exam normal MOTOR: Normal; including tone, gait, str essed gait, power and coordination. SKIN: Negative for alopecia, skin rash, malar rash, skin lesion, skin ulcer, pits, thickening, color changes, telangiectasias, nail changes, nail ridging, nail pitting, onycholysis MUSCULOSKELETAL: DIPS: Normal PIPS: Abnormal, mild synovitis all PIPs bl MCPs: Abnormal, synovitis MCP 2,3 left Wrists: Normal Elbows: Normal Shoulders: Normal C-Spine: Normal Hips: Normal Knees: Abnormal, effusion bl, warm, tend er Ankles: Normal MTPs / Toes: Normal Arches: Normal Lab Results: Glucose 103 09/09/2021 ALT 6 09/09/2021 WBC 9.48 09/09/2021 Hemoglobin 11.5 09/09/2021 Platelet Count 368 09/09/2021 WSR 56 12/23/2016 CRP 5.2 12/23/2016 Serology: Radiology: (more content not included).. . 01-30-2022 History of Formatting of this note is different f rom the original. [facility] Present illness Narrative RHEUMATOLOGY PROGRESS NOTE Patient is here for a follow up visit fo r Patient presents with: Rheumatoid Arthritis HPI: Viviana Santana is a 66 year old femal e who presents joint pain Last appt with Mikal virtual 12/08 Orencia IV every 4 weeks (first dose 10/18), has had 2 doses Arava 20 mg daily Prednisone 5 mg daily Off vit D 2-3 mo Pain in toes, intermittent, no swelling, AM stiffness lasting 30 min. she was started on nortripty line by pain management which is helping with tingling- got dizzy, now taking venlafaxine which is helping. On pred 10 mg since 10/22/21. Brief Rheumatological history - Diagnosed with RA 2017. She was admitted at [facility] - double pneumonia, RA. She was seeing rheum but she had insurance conflicts. She was prescribed prednisone, gabapentin, Arava. She presented with toe tingling, knee, fournier nd swelling, elbows, shoulders, neck. She was once diagnosed with anemia. not much improvement with Arava. Ran out of Arava few months ago. I am in pain all the time . Only steroids help. PCP sent pred She had shoulder injections. PAF, COPD on O2, ILD, DM2, polyneuropath y. She follows with pulm in [place]. RA, chronic steroids, adrenal insuff Family h/o autoimmune disease - father w ith psoriasis Smoking - ex smoker quit 2010 Interval Review of Systems CONSTITUTIONAL: Recent Weight change: No Fever: No EYES: Dryness in nose: No Dryness of mouth: No Oral ulcers: No CARDIOVASCULAR: Pain in chest: No RESPIRATORY: Shortness of breath: No Cough: No GASTROINTESTINAL: Nausea: No Vomiting: No Changes in bowel movements: No Jaundice: No Heartburn: No MUSCULOSKELETAL: Per HPI INTEGUMENTARY: Rash: No HEMATOLOGIC/LYMPHATIC: Anemia: No NEUROLOGICAL SYSTEM: Headaches: No Sensitivity or pain of hands and/or feet : No PSYCHIATRIC: Anxiety: No Poor sleep: No PAST MEDICAL HISTORY Diagnosis Date Anemia, unspecified Asthma Atrial fibrillation (HCC) 05/10/2017 admit Tatianna new onset AF, hyperthyroid lb with normal thyroid scan Cardiac disease 2020 pt does not know other than she has hea rt problems Chronic bronchitis (HCC) COPD (chronic obstructive pulmonary dise ase) (HCC) Chronic bronchitis by history. COVID-19 vaccine series completed 07-27-2020 2nd dose Pfizer Hyperglycemia 12/25/2016 Hyperthyroidism 05/10/2017 05/10/17 Tatianna TSH 0.020. F T4 high 1.74, FT3 high 1.83 Symptomatic afib with RVR. NM uptake: no focal areas of uptake. TSab negative. Microsomal Ab neg Rheumatoid arthritis (HCC) Leflunomide. Dayanna Silva MD. 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 Leflunomide, Dayanna Silva MD PAST SURGICAL HISTORY Procedure Laterality Date COLONOSCOPY FLX DX W/COLLJ SPEC WHEN PFR 10/09/2019 Colonoscopy ESOPHAGOGASTRODUODENOSCOPY TRANSORAL IVETTE GNOSTIC 10/09/2019 EGD LIG/TRNSXJ FLP TUBE ABDL/VAG APPR UNI/BI XCAPSL CTRC RMVL INSJ IO LENS PROSTH W/O ECP Right 12/15/2017 Cataract Extraction with PC IOL XCAPSL CTRC RMVL INSJ IO LENS PROSTH W/O ECP Left 01/05/2018 Cataract Extraction with PC IOL History Review: I have revie wed and modified as needed, the following during this visit: Allergies, Past Medical History, Past Surgical History, Past Family History, Past Social History. BP 130/78 Pulse 94 Temp (!) 34.8 C (94.6 F) (Temporal) Resp 20 LMP (LMP Unknown) SpO2 97% Physical Exam GENERAL: Well appearing, ty rt, comfortable, in no acute distress, well- hydrated, well nourished. HEENT: Negative for external ears normal. Canals are clear. Both TMs visualized and are normal. Eye Exam normal. External nose normal, no nasal ulcer or throat ulcer. NECK: NECK Supple, no adenopathy; thyroi d symmetric, normal size, no bruits CARDIAC: regular rate and rh ythm, No murmur asculated. and Equal peripheral pulses RESPIRATORY: Lungs clear to auscultation . No wheezing, rhonchi, rales VASCULAR: RRR without murmur, gallop, or rubs. No ectopy. NEURO: Motor and sensory exam normal MOTOR: Normal; including tone, gait, str essed gait, power and coordination. SKIN: Negative for alopecia, skin rash, malar rash, skin lesion, skin ulcer, pits, thickening, color changes, telangiectasias, nail changes, nail ridging, nail pitting, onycholysis MUSCULOSKELETAL: DIPS: Normal PIPS: Abnormal, mild synovitis all PIPs bl MCPs: Abnormal, synovitis MCP 2,3 left Wrists: Normal Elbows: Normal Shoulders: Normal C-Spine: Normal Hips: Normal Knees: Abnormal, effusion bl, warm, tend er Ankles: Normal MTPs / Toes: Normal Arches: Normal Lab Results: Glucose 103 09/09/2021 ALT 6 09/09/2021 WBC 9.48 09/09/2021 Hemoglobin 11.5 09/09/2021 Platelet Count 368 09/09/2021 WSR 56 12/23/2016 CRP 5.2 12/23/2016 Serology: Radiology: 2017 - ARISTEO 1:160, RF 123 Results for VIVIANA SANTANA ( ) as of 06/10/2021 09:04 Ref. Range 05/12/2021 12:33 Hep C Antibody IA Latest Ref Range: Nega tive Negative Hep B Surf Ab Quant Latest Ref Range: <1 0.00 mIU/mL <3.10 Hep B Surface Ag Latest Ref Range: Negat guy Negative Hep B Core Ab, Total Latest Ref Range: N EGAT^Negative Negative Rheumatoid Factor Latest Ref Range: <16 IU/mL 441 (H) CCP Antibody, IgG Latest Ref Range: <20 Units >250 (H) Vitamin D 25 Hydroxy Latest Ref Range: 3 0.0 - 100.0 ng/mL 10.4 (L) IMPRESSION: Degenerative changes in the cervical spi ne as described without acute osseous findings. No evidence of inflamm atory arthropathy. Degenerative changes bilateral hands pre dominantly in the wrists. No evidence of inflammatory arthropathy. Degenerative changes in the lumbar spine as described without acute osseous findings. No evidence of inflamm atory arthropathy. No acute osseous findings SI joints. No evidence of inflammatory no significant degenerative arthropathy. No acute osseous findings bilateral knee s. Minimal osteoarthritis bilaterally. No evidence of inflammatory arthropathy. No acute osseous findings bilateral feet . No evidence of inflammatory arthropathy. Hallux valgus and digital c ontractures bilaterally. DEXA 2021 IMPRESSION: Findings consistent with osteoporosis. 10-YEAR PROBABILITY OF FRACTURE: Major osteoporotic fracture risk is 32.7 %. Hip fracture risk is 12.3% BONE DENSITY MEASUREMENTS: Lumbar Spine: The average bone mineral density of L1 t hrough L4 is 1.032 gm/cm2. This corresponds to young adult T score of -1.2 and age-matched Z score of -0.1 Percent change from baseline: N/A% Femur: The average bone mineral density of the left femoral neck is 0.607 gm/cm2. This corresponds to young adult T score of -3.1 and age-matched Z score of -2.0. Percent change from baseline: N/A% Assessment and Plan (M05.79) Rheumatoid arthriti s involving multiple sites with positive rheumatoid factor (HCC) (E55.9) Vitamin D deficiency (M81.8) Other osteoporosis without curre nt pathological fracture 66-year-old female with sero positive nonerosive rheumatoid arthritis on leflunomide is here to establish care. Patient also has COPD, diabetes and frequent exposure to steroids. Patient has multiple derrick nt pain with positive respon se only to steroids. Concern for underlying osteoarthritis and steroid dependence. Per the patient there is no concern for rheumatoid arthritis related interstitial lung disease. For RA- on leflunomide 20 mg , Yemiia IV 750 mg every 4 weeks (started 11/10/2021; has had 2 loading doses). Doing well. Continue Slowly wean down pred 2.5 mg daily, if d oing well, try to wean off. Labs reviewed Resume Arava. Ran out. Discussed the treatment opti on for osteoporosis. She is at high risk for fractures. Advise vit D. Reclast would be a good effective treatment. Discussed risks and benefits and gave handouts. Advised to see pain management. There are no Patient Instructions on angeli e for this visit. No orders found for this visit on . Medication orders placed this encounter cholecalciferol, Vitamin D3, (VITAMIN D3 ) 1,250 mcg (50,000 unit) cap capsule Sig: Take 1 capsule by mouth once every month. Dispense: 12 capsule Refill: 1 leflunomide (ARAVA) 20 mg tablet Sig: Take 1 tablet by mouth once daily. Dispense: 90 tablet Refill: 0 predniSONE (DELTASONE) 5 mg tablet Sig: Take 0.5 tablets by mouth once mohsen y. Dispense: 30 tablet Refill: 0 No follow-ups on file. Asia Calderón MD documented in this encounter 01-12-2022 Note Patient Outreach (JAVIER) [facility] ic [place] VIVIANA SANTANA ([id number]) 1955 F Date Time Provider Department 01/12/22 LUIS MIGUEL LEVY During your visit today, we recorded the following information about you: Lusi Miguel Levy MA 01/12/2022 12:24 PM [facility] POPULATION HEALTH NAVIGATION OUTREACH Action/FYI Called and left a message to call [phone], to discuss health maintenance items that are due. Sent My Chart message. PCP appt: 06/25/22 My chart activation: active Advance directive: needs info HM due: Mammogram-Mammogram- already ordered- se nt walk in locations via my chart. Flu AD HCC gaps- E27.49 - (Reprompt) Iatrogenic adrenal i nsufficiency (HCC) Pt identified by name and : NO Outreach Outcome/Action Unable to reach patient: Left message MyChart message sent Did you use a PCP flex slot to schedule this appointment? N/A Reason for Outreach Care Gap or Scheduling/Wellness visits Payer: Payor: [facility] MEDICARE / Plan: [facility] DUAL COM PLETE HMO SNP / Product Type: Medicare / Care Gap Reviewed:: Breast Cancer screening Flu vaccine Reminder: Reminder note to check Health Maintenance for items below Health Maintenance items due: DIABETIC FOOT EXAM Never done HIV SCREENING Never done SHINGRIX VACCINE(1 of 2) Never done MAMMOGRAM due on 12/27/2019 URINE ALBUMIN:CREATININE RATIO due on COVID-19 VACCINE(4 - Booster for Pfizer series) due on 05/30/2021 LDL CHOLESTEROL due on 06/17/2021 INFLUENZA(1) due on 12/18/2021 PAP TESTING due on 03/26/2022 HPV TESTING due on 03/26/2022 Message Sent to Practice: No Navigation Signature: Luis Miguel Levy MA January 12, 2022 12:23 PM Allergies As of Date: 01/12/2022 Noted A llergy Reaction RAGWEED 03/10/2011 14 - Other: See Comme nts TREES 03/10/2011 14 - Other: See Comment s PAMELOR (NORTRIPTYLINE) 11/27/2021 5 - I ntolerance Comments: Dizziness Date Reviewed: 01/01/2022 Reviewed by: Sirena Royal APRN.CN P - Fully Assessed Reason for Visit: Population Health Navigation Outreach [3 [phone]] Cmt: [facility] care gaps Prescriptions as of 01/12/2022 - ferrous gluconate 324 mg (37.5 mg iron ) tablet Take 1 tablet by mouth twice daily with meals. - leflunomide (ARAVA) 20 mg tablet Take 1 tablet by mouth once daily - cholecalciferol, Vitamin D 3, (VITAMIN D3) 1,250 mcg (50,000 unit) cap capsule Take 1 capsule by mouth once every month . - venlafaxine ER (EFFEXOR XR) 37.5 mg 24 hr capsule Take 1 capsule by mouth once daily. - verapamil (CALAN, ISOPTIN) 80 mg table t Take 0.5 tablets by mouth every 8 hours. - predniSONE (DELTASONE) 5 mg tablet Take 2 tablets by mouth once daily. - gabapentin (NEURONTIN) 400 mg capsule Take 1 capsule by mouth three times mohsen y for 180 days. - gabapentin (NEURONTIN) 100 mg capsule Take 2 capsules by mouth twice daily for 180 days. - metoprolol succinate ER (TOPROL XL) 10 0 mg Take 1 tablet by mouth once daily. - rivaroxaban (XARELTO) 20 mg tablet Take 1 tablet by mouth daily with dinner . - ipratropium-albuterol (DUONEB) 0.5 mg- 3 mg(2.5 mg base)/3 mL nebu Inhale 3 mL as instructed four times devin ly. - guaiFENesin (MUCINEX) 600 mg 12 hr tab let Take 1 tablet by mouth twice daily. - ondansetron (ZOFRAN) 4 mg tablet Take 1 tablet by mouth every 6 hours as needed for nausea/vomiting. - Miscellaneous Medical Supply Portable oxygen concentrator 3l/min at a ll times. - omeprazole (PRILOSEC) 40 mg capsule Take 1 capsule by mouth as needed. - COMPOUNDED PRESCRIPTION Provide nebulizer accessory kit. DME: Serena bonilla. - COMPOUNDED PRESCRIPTION Accessories for nebulizer J43.1 Panlobul ar emphysema ([facility]) (primary encounter diagnosis) J84.9 ILD (intersti tial lung disease) ([facility]) - COMPOUNDED PRESCRIPTION #1 Continuous Flow Stationary O2 Concent rator Sig: O2 2l/min liter flow Patient is to keep portablel concentrato r as well J43.2 Centrilobular emphysema ([facility]) J84.9 ILD (interstitial lung disease) ([facility]) J96.11 Chronic respiratory failure with hypoxia ([facility]) - COMPOUNDED PRESCRIPTION Face mask: hypoxia - COMPOUNDED PRESCRIPTION Portable oxygen concentrator, setting 2 at rest, setting 3 with ambulation. - COMPOUNDED PRESCRIPTION Evaluate patient for portable pulse dose O2 concentrator. - COMPOUNDED PRESCRIPTION Portable oxygen concentrator. - acetaminophen (TYLENOL EXTRA STRENGTH) 500 mg tablet Take 1,000 mg by mouth every 6 hours as needed. 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 01-12-2022 Note HNO ID: [id number] [facility] Author: Luis Miguel Levy MA [place] Service: ? Author Type: Insole Taper Type: Progress Notes Filed: 01/12/2022 12:24 PM Note Text: POPULATION HEALTH NAVIGATION OUTREACH Action/FYI Called and left a message to call , to discuss health maintenance items that are due. Sent My Chart message. PCP appt: 06/25/22 My chart activation: active Advance directive: needs info HM due: Mammogram-Mammogram- already ordered- se nt walk in locations via my chart. Flu AD HCC gaps- E27.49 - (Reprompt) Iatrogenic adrenal i nsufficiency (HCC) Pt identified by name and : NO Outreach Outcome/Action Unable to reach patient: Left message MyChart message sent Did you use a PCP flex slot to schedule this appointment? N/A Reason for Outreach Care Gap or Scheduling/Wellness visits Payer: Payor: [facility] MEDICARE / Plan: [facility] DUAL COM PLETE HMO SNP / Product Type: Medicare / Care Gap Reviewed:: Breast Cancer screening Flu vaccine Reminder: Reminder note to check Health Maintenance for items below Health Maintenance items due: DIABETIC FOOT EXAM Never done HIV SCREENING Never done SHINGRIX VACCINE(1 of 2) Never done MAMMOGRAM due on 12/27/2019 URINE ALBUMIN:CREATININE RATIO due on COVID-19 VACCINE(4 - Booster for Pfizer series) due on 05/30/2021 LDL CHOLESTEROL due on 06/17/2021 INFLUENZA(1) due on 12/18/2021 PAP TESTING due on 03/26/2022 HPV TESTING due on 03/26/2022 Message Sent to Practice: No Navigation Signature: Luis Miguel Levy MA January 12, 2022 12:23 PM 01-12-2022 History of Formatting of this note is different f rom the original. [facility] Present illness Narrative POPULATION HEALTH NAVIGATION OUTRE ACH Action/FYI Called and left a message to call [phone], to discuss health maintenance items that are due. Sent My Chart message. PCP appt: 06/25/22 My chart activation: active Advance directive: needs info HM due: Mammogram-Mammogram- already ordered- se nt walk in locations via my chart. Flu AD HCC gaps- E27.49 - (Reprompt) Iatrogenic adrenal i nsufficiency (HCC) Pt identified by name and : NO Outreach Outcome/Action Unable to reach patient: Left message MyChart message sent Did you use a PCP flex slot to schedule this appointment? N/A Reason for Outreach Care Gap or Scheduling/Wellness visits Payer: Payor: [facility] MEDICARE / Plan: [facility] DUAL COMPLETE HMO SNP / Product Type: Medicare / Care Gap Reviewed:: Breast Cancer screening Flu vaccine Reminder: Reminder note to check Health Maintenance for items below Health Maintenance items due: DIABETIC FOOT EXAM Never done HIV SCREENING Never done SHINGRIX VACCINE(1 of 2) Never done MAMMOGRAM due on 12/27/2019 URINE ALBUMIN:CREATININE RATIO due on COVID-19 VACCINE(4 - Booster for Pfizer series) due on 05/30/2021 LDL CHOLESTEROL due on 06/17/2021 INFLUENZA(1) due on 12/18/2021 PAP TESTING due on 03/26/2022 HPV TESTING due on 03/26/2022 Message Sent to Practice: No Navigation Signature: Luis Miguel Levy MA January 12, 2022 12:23 PM documented in this encounter 01-01-2022 Note HNO ID: [id number] [facility] Author: Sirena Royal APRN.CITY PLANNING ENGINEER Ron[place] ter Service: ? Author Type: Nurse Practitioner Type: Progress Notes Filed: 01/01/2022 2:42 PM Note Text: [facility] Today's Date: 01/01/2022 Last Visit: 10/30/[address] Feng Name: Viviana Santana : 1955 Purpose: Established Patient Encounter Interval History: Since last encounter, Viviana Santana; reports that the chronic problem(s) of diffuse body pain are Better. Patient's last OV was initial consultation. She had also seen Dr. Begum in 06/2021 for pain management evaluation. Was advised by Dr Tj Begum not a candidate for injections, but advised lifestyle change s and follow up prn Last OV Dr. Feng started the patient on P amelor 25mg at HS and referred to PT. Patient reports that made her tired, she called in and she was then started on Effexor. Reports this seems t o be doing well for her. PCP manages her gabapentin, 600 mg in am , 400mg mid day and 600 mg HS Pain Description: Timing: intermittent Character: Achy Primary Location: Diffuse body pain Radiation: Just generalized pain Exacerbating factors: unknown, prolong s itting Relieving factors: walking (limited to h ousehold distances by O2 capacity) Interferes with: physical activity, hous ehold cleaning and social activities The patient denies difficulty with bowel or bladder control, unintentional weight loss and fevers, chills, or night sweats. New Problems reported: None Recall: Patient of Dr. Feng. Current Status: INTAKE PAIN ASSESSMENT 12/26/2021 2 Are you having pain associated with your visit today? No Yes, Provider notified Pain Scales - Verbal (Numeric Rating or Visual Analog Scale) Pain Level - 8 Pain Location - (No Data) Description - Tingling Duration Amount of Time - - Duration Units - Years Frequency - Continuous Intervention/Comfort measure - Medicatio n;Exercise Comments - - Pain Assessment - - Current Pain Medications: Opioids: NSAIDS: Anti-depressants: Effexor 37.5mg daily Anti-convulsants: gabapentin 600 mg am a nd prn and 400mg midday Muscle relaxants: Others: OTC Tylenol Analgesia: adequate Pain Medications Taken TO DATE (for the chief complaint(s)): Membrane Stabilizers: Neurontin (Gabapen tin) and Cymbalta (Duloxetine) NSAIDS: Motrin (Ibuprofen) and Naprosyn (Naproxen) - does not take NSAIDS due to being on Prednisone and her cardi ac condition Opioids: Percocet (Oxycodone) Muscle Relaxants: none Topicals: none Other Prescription or OTC Pain Medicatio ns: Tylenol (Acetaminophen) Anti-depressants: None Non-Pain Meds of Note: Xarelto - for A f ib Allergies: ALLERGIES Allergen Reactions Ragweed Other: See Comments Trees Other: See Comments Pamelor [Nortriptyl* Intolerance Dizziness Data Reviewed: Reviewed personally on today's date 01/01 Relevant Imaging: MRI Spine Report No resulted procedures found. X-ray 04/2021 C-spine: Mild multilevel degenerative di sc changes with narrowing and endplate osteophytes. Mild to moderate f acet and uncovertebral arthropathy. No erosions or syndesmophyt es. No fracture or compression defect. Prevertebral soft tissues are un remarkable. L-spine: Anatomic variant: None. Straigh tening of normal lumbar lordosis. Mild multilevel degenerative disc changes with narrowing and endplate osteophytes; moderate degenerative disc changes L5-S1 with end plate sclerosis and osteophytes. Facet arthropathy in the lower lumbar sp ine with up to moderate foraminal encroachment at L5-S1. No pars or compre ssion defect. No erosions or syndesmophytes. SI Joints: No evidence of inflammatory n o significant degenerative arthropathy. Bilateral Knees: Minimal osteoarthritis bilaterally. No evidence of inflammatory arthropathy. Bilateral Feet: No evidence of inflammat ory arthropathy. Hallux valgus and digital contractures bilaterally. Bilateral Hands: Degenerative changes bi lateral hands predominantly in the wrists. No evidence of inflammatory arth ropathy. Recent labs: Creatinine Date Value Ref Range Status 10/23/2021 0.70 0.58 - 0.96 mg/dL Final @lastegfr(gfr)@ Glucose, Point of Care Date Value Ref Range Status 10/09/2019 93 74 - 99 mg/dL Final Pain Procedures: DATE PROCEDURE IMPROVEMENT None to date at this practice Compliance: PDMP website checked and validated. All prescriptions have been APPROPRIATELY filled. No suspicious acti vity was identified. 01/01/2022 by Sirena Royal APRN.CITY PLANNING ENGINEER Last Drug screen: Not Applicable Risk Assessment: SAIRA-7: SAIRA - 7 SCORES 10/30/2021 SAIRA-7 Score 0 (0-4) minimal anxiety, (5-9) mild anxiet y, (10-14) moderate anxiety, (15-21) severe anxiety PHQ-9: PHQ-9 10/30/2021 Score 0 (0-4) minimal depression, (5-9) mild dep ression, (10-14) moderate depression, (15-19) moderately severe de pression, (20-27) severe depression Current Medications, Past Medical Histor y (more content not included)... 01-01-2022 Note HNO ID: [id number] [facility] Author: Lilian White MA Center Service: ? Author Type: Insole Taper Type: Progress Notes Filed: 01/01/2022 2:42 PM Note Text: Review of Systems Constitutional: Negative for activity ch dora, chills, fever and unexpected weight change. Gastrointestinal: Negative for bowel retention or incontin ence Genitourinary: Negative for difficulty u rinating. Negative for bladder retention or incont inence Musculoskeletal: Positive for arthralgia s, gait problem and myalgias. Negative for back pain, joint swelling, neck pain and neck stiffness. Neurological: Positive for numbness and headaches. Negative for weakness. Psychiatric/Behavioral: Negative for dys phoric mood, sleep disturbance and suicidal ideas. The patient is not n ervous/anxious. 01-01-2022 Instructions Sirena Royal APRN.CITY PLANNING ENGINEER - 01/01/2022 2:42 PM EDT [facility] Activity as tolerated Use Ice and/or heat as tolerated as need ed documented in this encounter 01-01-2022 History of Formatting of this note is different f rom the original. [facility] Present illness Narrative Images from the original note were not included. [facility] Today's Date: 01/01/2022 Last Visit: 10/30/[address] Feng Name: Viviana Santana : 1955 Purpose: Established Patient Encounter Interval History: Since last encounter, Viviana Santana; reports that the chronic problem(s) of diffuse body pain are Better. Patient's last OV was initial consultation. She had also seen Dr. Begum in 07/06 21 for pain management evalu ation. Was advised by Dr. Begum not a candidate for injections, but advised lifestyle changes and follow up prn Last OV Dr. Feng started the patient on Pamelor 25mg at HS and referred to PT. Patient reports that made her tired, she called in and she was then started on Effexor. Reports this seems to be doing well for her. PCP manages her gabapentin, 600 mg in am , 400mg mid day and 600 mg HS Pain Description: Timing: intermittent Character: Achy Primary Location: Diffuse body pain Radiation: Just generalized pain Exacerbating factors: unknown, prolong s itting Relieving factors: walking (limited to h ousehold distances by O2 capacity) Interferes with: physical activity, hous ehold cleaning and social activities The patient denies difficult y with bowel or bladder control, unintentional weight loss and fevers, chills, or night sweats. New Problems reported: None Recall: Patient of Dr. Feng. Current Status: INTAKE PAIN ASSESSMENT 12/26/2021 2 Are you having pain associat ed with your visit today? No Yes, Provider notified Pain Scales - Verbal (Numeric Rating or Visual Analog Scale) Pain Level - 8 Pain Location - (No Data) Description - Tingling Duration Amount of Time - - Duration Units - Years Frequency - Continuous Intervention/Comfort measure - Medicatio n;Exercise Comments - - Pain Assessment - - Current Pain Medications: Opioids: NSAIDS: Anti-depressants: Effexor 37.5mg daily Anti-convulsants: gabapentin 600 mg am a nd prn and 400mg midday Muscle relaxants: Others: OTC Tylenol Analgesia: adequate Pain Medications Taken TO DATE (for the chief complaint(s)): Membrane Stabilizers: Neurontin (Gabapen tin) and Cymbalta (Duloxetine) NSAIDS: Motrin (Ibuprofen) a nd Naprosyn (Naproxen) - does not take NSAIDS due to being on Prednisone and her cardiac condition Opioids: Percocet (Oxycodone) Muscle Relaxants: none Topicals: none Other Prescription or OTC Pain Medicatio ns: Tylenol (Acetaminophen) Anti-depressants: None Non-Pain Meds of Note: Xarelto - for A f ib Allergies: ALLERGIES Allergen Reactions Ragweed Other: See Comments Trees Other: See Comments Pamelor [Nortriptyl* Intolerance Dizziness Data Reviewed: Reviewed personally on today's date 01/01 Relevant Imaging: MRI Spine Report No resulted procedures found. X-ray 04/2021 C-spine: Mild multilevel deg enerative disc changes with narrowing and endplate osteophytes. Mild to moderate facet and uncovertebral arthropathy. No erosions or syndesmophytes. No fracture or compressio n defect. Prevertebral soft tissues are unremarkable. L-spine: Anatomic variant: N one. Straightening of normal lumbar lordosis. Mild multilevel degenerative disc changes with narrowing and endplate osteophytes; moderate degenerative disc changes L5-S1 with endplate sclerosis and osteophytes. Facet arthropathy in the lower lumbar spine with up to moderate fo raminal encroachment at L5-S 1. No pars or compression defect. No erosions or syndesmophytes. SI Joints: No evidence of in flammatory no significant degenerative arthropathy. Bilateral Knees: Minimal ost eoarthritis bilaterally. No evidence of inflammatory arthropathy. Bilateral Feet: No evidence of inflammatory arthropathy. Hallux valgus and digital contractures bilaterally. Bilateral Hands: Degenerativ e changes bilateral hands predominantly in the wrists. No evidence of inflammatory arthropathy. Recent labs: Creatinine Date Value Ref Range Status 10/23/2021 0.70 0.58 - 0.96 mg/dL Final @lastegfr(gfr)@ Glucose, Point of Care Date Value Ref Range Status 10/09/2019 93 74 - 99 mg/dL Final Pain Procedures: DATE PROCEDURE IMPROVEMENT None to date at this practice Compliance: PDMP website checked and kenrick idated. All prescriptions have been APPROPRIATELY filled. No suspicious activity was identified. 01/01/2022 by Sirena Royal APRN.CITY PLANNING ENGINEER Last Drug screen: Not Applicable Risk Assessment: SAIRA-7: SAIRA - 7 SCORES 10/30/2021 SAIRA-7 Score 0 (0-4) minimal anxiety, (5-9) mild anxiety, (10-14) moderate anxiety, (15-21) severe anxiety PHQ-9: PHQ-9 10/30/2021 Score 0 (0-4) minimal depression, (5 -9) mild depression, (10-14) moderate depression, (15-19) moderately severe depression, (20-27) severe depression Current Medications, Past Me dical History, Past Surgical History, Family History, Social History and Review of Systems: On today's date, 01/01/2022, noted above, I have confirmed and edited as necessary, the PFSH and ROS obtained by others. Physical Exam: 01/01/22 1425 Pulse: 86 Resp: 16 SpO2: 98% Constitutional: obese HEENT: Normal Cephalic, Atraumatic, Non- icteric sclera Eyes: Conjunctiva clear. No discharge fr om eyes Cardiovascular: Appears well perfused Lymphatic: No visible regional lymphaden opathy Skin: No visible rashes or ecchymosis Psychiatric: Full affect, Alert, Pleasan t Home O2 3L NC continuously MSK: Extremities: CAO, no deficits or edema Gait: Normal. Ambulates unassisted Neuro: Motor Strength: Upper and lower extremit y 5/5 bilaterally Sensory: intact to light touch Diagnoses: (G89.4) Chronic pain syndrome (primary encounter diagnosis) (M15.9) Generalized OA (M79.18) Myofascial pain Impression & Plan: 66 year o ld female with significant past medical history for A Fib on Xarelto, ILD on Home O2 continuously, CESAR, DM2, RA (RF+), Obesity, presents for follow for diffuse body aches and pains. Last OV Dr. Feng initiated th e patient on pamelor 25mg HS and referred to PT, patient reports she could not tolerated the Pamelor. Was then started on Effexor, she reports excellent pain relief with the Effexor. She is very pleased with how she is doing. No medication side effects. Viviana Santana would benefit f rom the following to decrease pain, improve function and/or work participation, and improve quality of life: Medications: Refill: Requested Prescriptions No prescriptions requested or ordered in this encounter Continue the Effexor 37.5 mg daily as di rected Continue Gabapentin as directed (managed by PCP) Functional Episcopalian: No changes-cyndy nue current regimen Additional Studies: None Referrals: None Additional: Medication use(s) and side e ffects reviewed with patient today with verbalized understanding. Depending on response to the above plan, consider: trigger point injections Follow-up: 3-4 months for medication ref ills Attribution: In addition to reviewing the information noted above, some elements copied from my most recent clinical note(s), including the physical exam (completed in entirety today), and the impressio n and plan sections, have be en updated where appropriate. All reflect current medical decision making from today's date. Sirena Royal APRN.CITY PLANNING ENGINEER Pain Management [facility] ystem Formatting of this note might be differe nt from the original. Review of Systems Constitutional: Negative for activity change, chills, fever and unexpected weight change. Gastrointestinal: Negative for bowel retention or incontin ence Genitourinary: Negative for difficulty u rinating. Negative for bladder retention or incont inence Musculoskeletal: Positive fo r arthralgias, gait problem and myalgias. Negative for back pain, joint swelling, neck pain and neck stiffness. Neurological: Positive for numbness and headaches. Negative for weakness. Psychiatric/Behavioral: Nega tive for dysphoric mood, sleep disturbance and suicidal ideas. The patient is not nervous/anxious. documented in this encounter 12-26-2021 Note HNO ID: [id number] [facility] Author: Alexa Becerra PA-C [place] Service: ? Author Type: Physician Hotel Assistant Manager Type: Progress Notes Filed: 12/27/2021 12:50 PM Note Text: 66 year old female with c/o here for fol low up. No current concerns, feels she is doing well. Paroxysmal atrial fibrillation (hcc) (pr imary encounter diagnosis) Current medications: Verapamil 80mg 0.5 tab every 8h Metoprolol succinate ER 100 mg daily Rivaroxaban 20 mg daily Cardiovascular interval hx: 09/08/21 f/u Dr. Piedra: improved AF/ ST on beta ruby, thught r/t beta`agonists with inhalers. Use of NTG: No Chest pain, arm, jaw pain, neck, or uppe r back pain suggestive of angina: No. SOB: No Dyspnea with exertion: No orthopnea: No racing or irregular heartbeats: No palpitations: No syncopal sx: No Unexplainable fatigue No Leg swelling: No Nausea: No diaphoresis: No Heartburn: No Claudication: No Smoking: No Following Low cholesterol, high fiber di et? Yes If on statin: muscle aches? No If on statin: GI sx or diarrhea? No Additional history: no recent testing. Component Latest Ref Rng AND Units 202109/18/2021 10/23/2021 WBC 3.70 - 11.00 k/uL 9.48 10.36 10.54 RBC 3.90 - 5.20 m/uL 3.78 (L) 3.76 (L) 3 .55 (L) Hemoglobin 11.5 - 15.5 g/dL 11.5 11.5 10 .8 (L) Hematocrit 36.0 - 46.0 % 39.3 37.9 37.1 MCV 80.0 - 100.0 fL 104.0 (H) 100.8 (H) 104.5 (H) MCH 26.0 - 34.0 pg 30.4 30.6 30.4 MCHC 30.5 - 36.0 g/dL 29.3 (L) 30.3 (L) 29.1 (L) RDW-CV 11.5 - 15.0 % 13.4 13.4 13.4 Platelet Count 150 - 400 k/uL 368 334 36 0 MPV 9.0 - 12.7 fL 10.1 9.8 10.1 Neut% % 65.9 80.2 78.6 Abs Neut (ANC) 1.45 - 7.50 k/uL 6.25 8.3 1 (H) 8.29 (H) Lymph% % 22.3 11.5 14.4 Abs Lymph 1.00 - 4.00 k/uL 2.11 1.19 1.5 2 Washburn% % 5.9 4.2 3.8 Abs [place] <0.87 k/uL 0.56 0.44 0.40 Eosin% % 4.3 2.9 1.8 Abs Eosin <0.46 k/uL 0.41 0.30 0.19 Baso% % 1.2 0.9 0.8 Abs Baso <0.11 k/uL 0.11 (H) 0.09 0.08 Immature Gran % % 0.4 0.3 0.6 IMMATURE GRANS (ABS) <0.10 k/uL 0.04 0.0 3 0.06 NRBC /100 WBC 0.0 0.0 0.0 Absolute nRBC <0.01 k/uL <0.01 <0.01 <0. 01 DTYPE Auto Auto Auto Component Latest Ref Rng AND Units 202109/18/2021 10/23/2021 Protein, Total 6.3 - 8.0 g/dL 6.9 7.1 7. 3 Albumin 3.9 - 4.9 g/dL 3.5 (L) 3.5 (L) 3 .5 (L) Calcium 8.5 - 10.2 mg/dL 9.2 9.3 9.3 Bilirubin, Total 0.2 - 1.3 mg/dL 0.2 0.3 0.2 Alkaline Phosphatase 34 - 123 U/L 114 11 3 107 AST 13 - 35 U/L 14 16 14 ALT 7 - 38 U/L 6 (L) 6 (L) 7 Glucose 74 - 99 mg/dL 103 (H) 104 (H) 13 6 (H) BUN 7 - 21 mg/dL 12 12 12 Creatinine 0.58 - 0.96 mg/dL 0.74 0.79 0 .70 Sodium 136 - 144 mmol/L 139 137 136 Potassium 3.7 - 5.1 mmol/L 4.1 4.3 4.1 Chloride 97 - 105 mmol/L 99 99 98 CO2 22 - 30 mmol/L 29 28 25 Anion Gap 9 - 18 mmol/L 11 10 13 eGFR >=60 mL/min/1.73m? 90 84 97 Component Latest Ref Rng AND Units 201802/12/2020 Cholesterol, Total <200 mg/dL 182 145 Triglyceride <150 mg/dL 198 (H) 245 (H) HDL Cholesterol >39 mg/dL 77 67 LDL Cholesterol <100 mg/dL 65 29 Non HDL Cholesterol <130 mg/dL 105 78 Fasting Time hrs 6 14 VLDL Cholesterol <30 mg/dL 40 (H) 49 (H) TC:HDL Ratio <5.10 2.36 2.16 LDL:HDL Ratio <2.54 0.84 0.43 Last 3 Encounter BP Readings: Date: BP: 12/26/2021 124/72 12/23/2021 117/67 11/24/2021 95/61 Type 2 diabetes mellitus without complic ation, without long-term current use of insulin (hcc) Current medications: none Taking medication as directed consistent ly? No meds, currently on prednisone Medical Issues / Complications: hyperlip idemia and cardiovascular disease Checking blood sugars at home? No. Watching diet? Yes Physical Activity: Sedentary but improvi ng Hypoglycemic spells? No Any visual disturbance? No Chest pain? No New numbness, tingling or loss of sensat ion? No Any recent foot problems, sores or rashe s? No Any recent or sudden weight loss? No Change in urination? No. If yes: Any recent illness? No Last eye exam: up to date. Last foot exam: due. HBA1C: Hemoglobin A1C (%) Date Value 09/09/2021 5.3 06/17/2020 6.1 02/12/2020 6.4 ) CMP: Glucose 136 10/23/2021 BUN 12 10/23/2021 Creatinine 0.70 10/23/2021 Sodium 136 10/23/2021 Potassium 4.1 10/23/2021 Chloride 98 10/23/2021 CO2 25 10/23/2021 Protein, Total 7.3 10/23/2021 Albumin 3.5 10/23/2021 Calcium 9.3 10/23/2021 Alkaline Phosphatase 107 10/23/2021 Bilirubin, Total 0.2 10/23/2021 AST 14 10/23/2021 ALT 7 10/23/2021 Last 2 Encounter Wt Readings: Date: Wt: 12/26/2021 80.6 kg (177 lb 9.6 oz) 12/23/2021 83 kg (183 lb) Rheumatoid arthritis involving multiple sites with positive rheumatoid factor (hcc) Current chronic use of systemic steroids Iatrogenic adrenal insufficiency (hcc) longterm current use of immunosuppressi ve drug Chronic neutrophilia Current medications: leflunomide 20mg I tab daily Prednisone 4 mg daily and weaning Current doing well, pain controlled, goo d mobility Elevated ferritin Coming down on prednisone Component Latest R (more content not inc luded)... 12-10-2021 Note HNO ID: [id number] [facility] Author: Jennifer Mancini RT(R) Center Service: Radiology Author Type: Technologist Type: Progress Notes Filed: 12/10/2021 3:09 PM Note Text: Radiology Service Progress Note PATIENT NAME: Viviana Santana DATE OF SERVICE: December 10, 2021 TIME: 3:09 PM PATIENT IDENTITY VERIFICATION COMPLETED USING TWO (2) IDENTIFIERS: Name and Date of confirmed by patient v erbally. FALL SCREENING: Has the patient had 2 fa lls in the last year or 1 fall with injury or currently using an Ambula tory Assistive Device (Walker, Cane, Wheelchair, Crutches, etc.)? No PATIENT GENDER DATA: Female. s tatus: : No status: NO. PATIENT RELEVANT IMPLANT DATA REVIEWED: Not Applicable RADIOLOGY DEPARTMENT: Bone Density PERIPHERAL IV DATA: Not applicable SIGNED BY: RT Mike(R) December 10, 2021 3:09 PM 12-10-2021 History of Formatting of this note migh t be different from the original. [facility] Present illness Narrative Radiology Service Progress Note PATIENT NAME: Viviana Santana DATE OF SERVICE: December 10, 2021 TIME: 3:09 PM PATIENT IDENTITY VERIFICATIO N COMPLETED USING TWO (2) IDENTIFIERS: Name and Date of confirmed by patient verbally. FALL SCREENING: Has the valeria ent had 2 falls in the last year or 1 fall with injury or currently using an Ambulatory Assistive Device (Walker, Cane, Wheelchair, Crutches, etc.)? No PATIENT GENDER DATA: Female. status: : No status: NO. PATIENT RELEVANT IMPLANT DATA REVIEWED: Not Applicable RADIOLOGY DEPARTMENT: Bone Density PERIPHERAL IV DATA: Not applicable SIGNED BY: RT Mike(R) December 10, 2021 3:09 PM documented in this encounter 12-08-2021 Note HNO ID: [id number] [facility] Author: Mikal Cuellar PA-C Center Service: ? Author Type: Physician Hotel Assistant Manager Type: Progress Notes Filed: 12/08/2021 1:42 PM Note Text: [facility] Mikal Cuellar [address] [facility] [address] [place] [address] RHEUMATOLOGY PROGRESS NOTE VIRTUAL VISIT PROGRESS NOTE This is a virtual visit using [employer] vi alesia visit. It required patient-provider interaction for the med ica decision making as documented below. Viviana Santana is a 66 year old female see n for RA Orencia IV every 4 weeks (first dose 10/18), has had 2 doses Arava 20 mg daily Prednisone 5 mg daily Off vit D 2-3 mo Pain in toes, intermittent, no swelling, AM stiffness lasting 30 min. she was started on nortriptyline by pain management which is helping with tingling- got dizzy, now taking venlafax ine which is helping. On pred 10 mg since 10/22/21. BMD 11/10. Diagnosed with RA 2016. She was admitted at [facility] - double pneumonia, RA. She was seeing rheum but she had insurance conflicts. She was prescribed prednisone, gabapentin, A rava. She presented with toe tingling, knee, hand swelling, elbows, s houlders, neck. She was once diagnosed with anemia. not much improvem ent with Arava. Ran out of Arava few months ago. I am in pain all the ti me . Only steroids help. PCP sent pred She had shoulder injections. PAF, COPD, ILD, DM2, polyneuropathy. She follows with pulm in [place]. RA, chronic steroids, adrenal insuff Family h/o autoimmune disease - father w ith psoriasis Smoking - ex smoker quit 2010 HISTORY REVIEWED (electronic chart updat ed): PAST MEDICAL HISTORY Diagnosis Date Anemia, unspecified Asthma Atrial fibrillation (HCC) 04/26/2017 Cardiac disease 2020 pt does not know other than she has hea rt problems Chronic bronchitis (HCC) COPD (chronic obstructive pulmonary dise ase) (HCC) Chronic bronchitis by history. COVID-19 vaccine series completed 07-27-2020 2nd dose Pfizer Hyperglycemia 12/25/2016 Hyperthyroidism 05/10/2017 05/10/17 Tatianna TSH 0.020. FT4 high 1.74 , FT3 high 1.83 Symptomatic afib with RVR. NM uptake: no focal areas of u ptake. TSab negative. Microsomal Ab neg Rheumatoid arthritis (HCC) Leflunomide. Dayanna Silva MD. 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 Maurice, Dayanna Silva MD PAST SURGICAL HISTORY Procedure Laterality Date COLONOSCOPY FLX DX W/COLLJ SPEC WHEN PFR 10/09/2019 Colonoscopy ESOPHAGOGASTRODUODENOSCOPY TRANSORAL IVETTE GNOSTIC 10/09/2019 EGD LIG/TRNSXJ FLP TUBE ABDL/VAG APPR UNI/BI XCAPSL CTRC RMVL INSJ IO LENS PROSTH W/O ECP Right 12/15/2017 Cataract Extraction with PC IOL XCAPSL CTRC RMVL INSJ IO LENS PROSTH W/O ECP Left 01/05/2018 Cataract Extraction with PC IOL FAMILY HISTORY Problem Relation Age of Onset Ischemic Heart Disease Father Cataract Father other (COPD, smoker) Father Cataract Mother other (COPD, smoker) Mother other (liver transplant) Sister Etiology of liver disease unknown to elvin almodovar. Heart Sister Social History Tobacco Use Smoking status: Former Packs/day: 0.50 Years: 30.00 Pack years: 15.00 Types: Cigarettes Start date: 01/01/1970 Quit date: 09/09/2010 Years since quittin.2 Smokeless tobacco: Never Vaping Use Vaping Use: Never used Substance Use Topics Alcohol use: No Drug use: No Current Outpatient Medications Medication Sig leflunomide (ARAVA) 20 mg tablet Take 1 tablet by mouth once daily venlafaxine ER (EFFEXOR XR) 37.5 mg 24 h r capsule Take 1 capsule by mouth once daily. verapamil (CALAN, ISOPTIN) 80 mg tablet Take 0.5 tablets by mouth every 8 hours. predniSONE (DELTASONE) 5 mg tablet Take 2 tablets by mouth once daily. gabapentin (NEURONTIN) 400 mg capsule Ta ke 1 capsule by mouth three times daily for 180 days. gabapentin (NEURONTIN) 100 mg capsule Ta ke 2 capsules by mouth twice daily for 180 days. metoprolol succinate ER (TOPROL XL) 100 mg Take 1 tablet by mouth once daily. rivaroxaban (XARELTO) 20 mg tablet Take 1 tablet by mouth daily with dinner. ipratropium-albuterol (DUONEB) 0.5 mg-3 mg(2.5 mg base)/3 mL nebu Inhale 3 mL as instructed four times daily. guaiFENesin (MUCINEX) 600 mg 12 hr table t Take 1 tablet by mouth twice daily. ondansetron (ZOFRAN) 4 mg tablet Take 1 tablet by mouth every 6 hours as needed for nausea/vomiting. ferrous gluconate 324 mg (37.5 mg iron) tablet Take 1 tablet by mouth twice daily with meals. Miscellaneous Medical Supply Portable ox ygen concentrator 3l/min at all times. omeprazole (PRILOSEC) 40 mg capsule Take 1 capsule by mouth as needed. COMPOUNDED PRESCRIPTION Provide nebulize r accessory kit. DME: Mohit. COMPOUNDED PRESCRIPTION Accessories for nebulizer J43.1 Panlobular emphysema (HCC) (primar y encounter diagnosis) J84.9 ILD (interstitial lung disease) (H CC) COMPOUNDED PRESCRIP (more content not in cluded)... 12-08-2021 History of Formatting of this note is different f rom the original. [facility] Present illness Narrative Images from the original note were not included. [facility] Mikal Cuellar [address] [place] [address] RHEUMATOLOGY PROGRESS NOTE VIRTUAL VISIT PROGRESS NOTE This is a virtual visit mike Hernandez video visit. It required patient-provider interaction for the medical decision making as documented below. Viviana Santana is a 66 year old female see n for RA Orencia IV every 4 weeks (first dose 10/18), has had 2 doses Arava 20 mg daily Prednisone 5 mg daily Off vit D 2-3 mo Pain in toes, intermittent, no swelling, AM stiffness lasting 30 min. she was started on nortripty line by pain management which is helping with tingling- got dizzy, now taking venlafaxine which is helping. On pred 10 mg since 10/22/21. BMD 11/10. Diagnosed with RA 2016. She was admitted at [facility] - double pneumonia, RA. She was seeing rheum but she had insurance conflicts. She was prescribed prednisone, gabapentin, Arava. She presented with toe tingling, knee, fournier nd swelling, elbows, shoulders, neck. She was once diagnosed with anemia. not much improvement with Arava. Ran out of Arava few months ago. I am in pain all the time . Only steroids help. PCP sent pred She had shoulder injections. PAF, COPD, ILD, DM2, polyneuropathy. She follows with pulm in [place]. RA, chronic steroids, adrenal insuff Family h/o autoimmune disease - father w ith psoriasis Smoking - ex smoker quit 2010 HISTORY REVIEWED (electronic chart updat ed): PAST MEDICAL HISTORY Diagnosis Date Anemia, unspecified Asthma Atrial fibrillation (HCC) 04/26/2017 Cardiac disease 2020 pt does not know other than she has hea rt problems Chronic bronchitis (HCC) COPD (chronic obstructive pulmonary dise ase) (HCC) Chronic bronchitis by history. COVID-19 vaccine series completed 07-27-2020 2nd dose Pfizer Hyperglycemia 12/25/2016 Hyperthyroidism 05/10/2017 05/10/17 Tatianna TSH 0.020. F T4 high 1.74, FT3 high 1.83 Symptomatic afib with RVR. NM uptake: no focal areas of uptake. TSab negative. Microsomal Ab neg Rheumatoid arthritis (HCC) Leflunomide. Dayanna Silva MD. 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 Leflunomide, Dayanna Silva MD PAST SURGICAL HISTORY Procedure Laterality Date COLONOSCOPY FLX DX W/COLLJ SPEC WHEN PFR 10/09/2019 Colonoscopy ESOPHAGOGASTRODUODENOSCOPY TRANSORAL IVETTE GNOSTIC 10/09/2019 EGD LIG/TRNSXJ FLP TUBE ABDL/VAG APPR UNI/BI XCAPSL CTRC RMVL INSJ IO LENS PROSTH W/O ECP Right 12/15/2017 Cataract Extraction with PC IOL XCAPSL CTRC RMVL INSJ IO LENS PROSTH W/O ECP Left 01/05/2018 Cataract Extraction with PC IOL FAMILY HISTORY Problem Relation Age of Onset Ischemic Heart Disease Father Cataract Father other (COPD, smoker) Father Cataract Mother other (COPD, smoker) Mother other (liver transplant) Sister Etiology of liver disease unknown to pat nishi. Heart Sister Social History Tobacco Use Smoking status: Former Packs/day: 0.50 Years: 30.00 Pack years: 15.00 Types: Cigarettes Start date: 01/01/1970 Quit date: 09/09/2010 Years since quittin.2 Smokeless tobacco: Never Vaping Use Vaping Use: Never used Substance Use Topics Alcohol use: No Drug use: No Current Outpatient Medications Medication Sig leflunomide (ARAVA) 20 mg tablet Take 1 tablet by mouth once daily venlafaxine ER (EFFEXOR XR) 37.5 mg 24 hr capsule Take 1 capsule by mouth once daily. verapamil (CALAN, ISOPTIN) 8 0 mg tablet Take 0.5 tablets by mouth every 8 hours. predniSONE (DELTASONE) 5 mg tablet Take 2 tablets by mouth once daily. gabapentin (NEURONTIN) 400 m g capsule Take 1 capsule by mouth three times daily for 180 days. gabapentin (NEURONTIN) 100 m g capsule Take 2 capsules by mouth twice daily for 180 days. metoprolol succinate ER (TOPROL XL) 100 mg Take 1 tablet by mouth once daily. rivaroxaban (XARELTO) 20 mg tablet Take 1 tablet by mouth daily with dinner. ipratropium-albuterol (DUONE B) 0.5 mg-3 mg(2.5 mg base)/3 mL nebu Inhale 3 mL as instructed four times daily. guaiFENesin (MUCINEX) 600 mg 12 hr table t Take 1 tablet by mouth twice daily. ondansetron (ZOFRAN) 4 mg ta blet Take 1 tablet by mouth every 6 hours as needed for nausea/vomiting. ferrous gluconate 324 mg (37 .5 mg iron) tablet Take 1 tablet by mouth twice daily with meals. Miscellaneous Medical Supply Portable ox ygen concentrator 3l/min at all times. omeprazole (PRILOSEC) 40 mg capsule Take 1 capsule by mouth as needed. COMPOUNDED PRESCRIPTION Provide nebulize r accessory kit. DME: Mohit. COMPOUNDED PRESCRIPTION Accessories for nebulizer J43.1 Panlobular emphysema (HCC) (primar y encounter diagnosis) J84.9 ILD (interstitial lung disease) (H CC) COMPOUNDED PRESCRIPTION #1 Continuous Fl ow Stationary O2 Concentrator Sig: O2 2l/min liter flow Patient is to keep portablel concentrato r as well J43.2 Centrilobular emphysema (HCC) J84.9 ILD (interstitial lung disease) (H CC) J96.11 Chronic respiratory failure with hypoxia (HCC) COMPOUNDED PRESCRIPTION Face mask: hypoxia COMPOUNDED PRESCRIPTION Port able oxygen concentrator, setting 2 at rest, setting 3 with ambulation. (Patient taking differently: Portable oxygen concentrator, setting 2 at rest, setting 3 with ambulation. Is now taking 3 liters continuously) COMPOUNDED PRESCRIPTION Eval uate patient for portable pulse dose O2 concentrator. COMPOUNDED PRESCRIPTION Portable oxygen concentrator. acetaminophen (TYLENOL EXTRA STRENGTH) 500 mg tablet Take 1,000 mg by mouth every 6 hours as needed. cholecalciferol, Vitamin D3, (VITAMIN D3) 1,250 mcg (50,000 unit) cap capsule Take 1 capsule by mouth once every month. No current facility-administered medicat ions for this visit. ALLERGIES Allergen Reactions Ragweed Other: See Comments Trees Other: See Comments Pamelor [Nortriptyl* Intolerance Dizziness REVIEW OF SYSTEMS: GENERAL: feeling well without fatigue, n o recent change in weight As noted in HPI PHYSICAL EXAMINATION: VIDEO EXAM: (if completed, performed via video enabled technology) GENERAL: alert and appropria te, in no distress, well-hydrated, well nourished, and happy, smiling, interactive LABS: 10/2021 Cr 0.7 LFT normal CBC with MCV 104.5 Vit D 48 2016 - ARISTEO 1:160, RF 123 Results for VIVIANA SANTANA ( ) as of 06/10/2021 09:04 Ref. Range 05/12/2021 12:33 Hep C Antibody IA Latest Ref Range: Nega tive Negative Hep B Surf Ab Quant Latest Ref Range: <1 0.00 mIU/mL <3.10 Hep B Surface Ag Latest Ref Range: Negat guy Negative Hep B Core Ab, Total Latest Ref Range: N EGAT^Negative Negative Rheumatoid Factor Latest Ref Range: <16 IU/mL 441 (H) CCP Antibody, IgG Latest Ref Range: <20 Units >250 (H) Vitamin D 25 Hydroxy Latest Ref Range: 3 0.0 - 100.0 ng/mL 10.4 (L) IMPRESSION: Degenerative changes in the cervical spi ne as described without acute osseous findings. No evidence of inflamm atory arthropathy. Degenerative changes bilateral hands pre dominantly in the wrists. No evidence of inflammatory arthropathy. Degenerative changes in the lumbar spine as described without acute osseous findings. No evidence of inflamm atory arthropathy. No acute osseous findings SI joints. No evidence of inflammatory no significant degenerative arthropathy. No acute osseous findings bilateral knee s. Minimal osteoarthritis bilaterally. No evidence of inflammatory arthropathy. No acute osseous findings bilateral feet . No evidence of inflammatory arthropathy. Hallux valgus and digital c ontractures bilaterally. ASSESSMENT: (M05.79) Rheumatoid arthriti s involving multiple sites with positive rheumatoid factor (HCC) (primary encounter diagnosis) (Z79.52) Current chronic use of systemic steroids (Z79.899) High risk medication use (E55.9) Vitamin D deficiency PLAN: 66-year-old female with prev ious diagnosis of rheumatoid arthritis on leflunomide is here to establish care. Patient also has COPD, diabetes and frequent exposure to steroids. Patient has multiple joint pain with positive response only to steroids. Concern for underlying osteoarthritis and steroid dependence. Positive rheumatoid factor is commonly seen in patients with history of smoking. 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 Per e patient there is no concern for rheumatoid arthritis related interstitial lung disease. For RA- on leflunomide 20 mg , Orencia IV 750 mg every 4 weeks (started 11/10/2021; has had 2 loading doses). Doing well. Continue Slowly wean down pred 5 mg, lower to 2.5 mg daily, if doing well, try to wean off. Labs reviewed DEXA scheduled 12/10 There are no Patient Instructions on angeli e for this visit. Mikal Cuellar PA-C No orders found for this visit on . Orders Placed This Encounter cholecalciferol, Vitamin D3, (VITAMIN D3 ) 1,250 mcg (50,000 unit) cap capsule Sig: Take 1 capsule by mouth once every month. Dispense: 3 capsule Refill: 1 Platform used -my chart 20 min documented in this encounter 12-05-2021 Miscellaneous Formatting of this note is d ifferent from the original. [facility] Pharmacy requesting the following refill . Requested Prescriptions Pending Prescriptions Disp Refills leflunomide (ARAVA) 20 mg ta blet [Pharmacy Med Name: Leflunomide 20 MG Oral Tablet] 30 tablet 0 Sig: Take 1 tablet by mouth once daily Patient last appointment: 11/05/2021 Roddy dinero VV Next Appointment: 12/08/2021 Manjit Patient Phone numbers: [phone] (princess e) Request is for script(s) to be escript to pharmacy. [facility] [address] [place] [phone] [facility] [phone] Sayda Jimenez LPN documented in this encounter 08-11-2022 Miscellaneous Formatting of this note migh t be different from the original. [facility] Notes I called Viviana Santana and co nfirmed she had dizziness on the Pamelor. It was helping, however. We will discontinue and start Effexor XR 37.5mg daily. She sees me in one month for follow-up and has been instructed to keep taking un til then if having no side effects, otherwise discontinue immediately. Rick Feng III, MD, CHAPO Formatting of this note might be differe nt from the original. Patient does not want to shelley e nortriptytline 25 mg, requesting new medication due to this one making her dizzy. Please advise, call back to [phone]. Thank you. Electronically signed by Ismael colin 11/27/2021 12:33 PM EDT documented in this encounter 11-12-2021 Note Patient Outreach (INTMMN) [facility] [place] ESTHERVIVIANA Brigid ([id number]) 1955 F Date Time Provider Department 11/12/21 Alexa BECERRA INTMMKirk During your visit today, we recorded the following information about you: Allergies As of Date: 11/12/2021 Noted A llergy Reaction RAGWEED 03/10/2011 14 - Other: See Comme nts TREES 03/10/2011 14 - Other: See Comment s Date Reviewed: 11/10/2021 Reviewed by: Reba Delong RN - Fully A ssessed Visit Diagnosis:Encounter for screening mammogram for breast cancer [Z12.31] Order(s):[facility] SCREENING [[id number]] Order # : [id number] FUTURE Prescriptions as of 11/17/2021 - verapamil (CALAN, ISOPTIN) 80 mg table t Take 0.5 tablets by mouth every 8 hours. - nortriptyline (PAMELOR) 25 mg capsule Take 1 capsule by mouth daily at bedtime . - predniSONE (DELTASONE) 5 mg tablet Take 2 tablets by mouth once daily. - gabapentin (NEURONTIN) 400 mg capsule Take 1 capsule by mouth three times mohsen y for 180 days. - leflunomide (ARAVA) 20 mg tablet Take 1 tablet by mouth once daily. - gabapentin (NEURONTIN) 100 mg capsule Take 2 capsules by mouth twice daily for 180 days. - metoprolol succinate ER (TOPROL XL) 10 0 mg Take 1 tablet by mouth once daily. - rivaroxaban (XARELTO) 20 mg tablet Take 1 tablet by mouth daily with dinner . - ipratropium-albuterol (DUONEB) 0.5 mg- 3 mg(2.5 mg base)/3 mL nebu Inhale 3 mL as instructed four times devin ly. - guaiFENesin (MUCINEX) 600 mg 12 hr tab let Take 1 tablet by mouth twice daily. - ergocalciferol 50,000 unit capsule ( TAMIN D2, DRISDOL) Take 1 capsule by mouth one time a week. - ondansetron (ZOFRAN) 4 mg tablet Take 1 tablet by mouth every 6 hours as needed for nausea/vomiting. - ferrous gluconate 324 mg (37.5 mg iron ) tablet Take 1 tablet by mouth twice daily with meals. - Miscellaneous Medical Supply Portable oxygen concentrator 3l/min at a ll times. - omeprazole (PRILOSEC) 40 mg capsule Take 1 capsule by mouth as needed. - COMPOUNDED PRESCRIPTION Provide nebulizer accessory kit. DME: Serena bonilla. - COMPOUNDED PRESCRIPTION Accessories for nebulizer J43.1 Panlobul ar emphysema ([facility]) (primary encounter diagnosis) J84.9 ILD (intersti tial lung disease) ([facility]) - COMPOUNDED PRESCRIPTION #1 Continuous Flow Stationary O2 Concent rator Sig: O2 2l/min liter flow Patient is to keep portablel concentrato r as well J43.2 Centrilobular emphysema ([facility]) J84.9 ILD (interstitial lung disease) ([facility]) J96.11 Chronic respiratory failure with hypoxia ([facility]) - COMPOUNDED PRESCRIPTION Face mask: hypoxia - COMPOUNDED PRESCRIPTION Portable oxygen concentrator, setting 2 at rest, setting 3 with ambulation. - COMPOUNDED PRESCRIPTION Evaluate patient for portable pulse dose O2 concentrator. - COMPOUNDED PRESCRIPTION Portable oxygen concentrator. - acetaminophen (TYLENOL EXTRA STRENGTH) 500 mg tablet Take 1,000 mg by mouth every 6 hours as needed. 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 immunosuppressi ve drug*05/19/2017 Paroxysmal atrial fibrillation (HCC) [I4 8.0] 05/10/2017 Hyperthyroidism [E05.90] 05/10/2017 06/0 11/2021 Normocytic anemia [D64.9] 05/28/2017 Pre-diabetes [R73.03] 06/28/2017 Current chronic use of systemic steroids [Z79.5*06/28/2017 Type 2 diabetes mellitus without complic ation, *11/22/2017 Combined 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-related cataract o f both *11/22/2017 01/06/2018 Regular astigmatism, bilateral [H52.223] 11/22/2017 Combined 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-related cataract o f right*12/06/2017 01/06/2018 Combined 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-related cataract o f left *12/06/2017 01/05/2018 Combined 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-related cataract, right e*12/06/2017 12/15/2017 Status post cataract extraction and inse rtion o*12/16/2017 07/28/2018 Combined form of age-related cataract, l eft eye*12/27/2017 01/06/2018 Status post cataract extraction and inse rtion o*01/06/2018 07/28/2018 Vitreous floaters of both eyes [H43.393] 07/28/2018 Pseudophakia of both eyes [Z96.1] 2018 CESAR (obstructive sleep apnea) [G47.33] 1 Pneumonia of right upper lobe due to met hicilli*02/13/2019 10/06/2019 Acute bilateral mastoiditis [H70.003] 02/29/2020 Cholesteatoma, bilateral [H71.93] 2019 Obesity, Class I, BMI 30-34.9 [E66.9] Encounter for support and coordination o f trans*02/14/2020 Chronic neutrophilia [D72.828] 1 Encoun (more content not included)... 11-05-2021 Note HNO ID: [id number] [facility] Author: Asia Calderón MD Center Service: ? Author Type: Physician Type: Progress Notes Filed: 11/05/2021 11:36 AM Note Text: VIRTUAL VISIT PROGRESS NOTE This is a virtual visit using [employer] vi alesia visit. It required patient-provider interaction for the [facility] decision making as documented below. Viviana Santana is a 66 year old female see n for joint pain. she was started on nortriptyline by pain management which is helping with tingling. On pred 10 mg since 10/22/21. Recent office visit 10/08 - active RA. in crease pred 5 mg till next visit - increase Arava 20 mg daily Feeling better. Still has swelling and p ain. BMD 11/10. Diagnosed with RA 2016. She was admitted at [facility] - double pneumonia, RA. She was seeing rheum but she had insurance conflicts. She was prescribed prednisone, gabapentin, A rava. She presented with toe tingling, knee, hand swelling, elbows, s houlders, neck. She was once diagnosed with anemia. not much improvem ent with Arava. Ran out of Arava few months ago. I am in pain all the ti me . Only steroids help. PCP sent pred She had shoulder injections. PAF, COPD, ILD, DM2, polyneuropathy. She follows with pulm in [place]. RA, chronic steroids, adrenal insuff Family h/o autoimmune disease - father w ith psoriasis Smoking - ex smoker quit 2010 Rheumatology REVIEW OF SYSTEMS: Constitutional: Recent Weight Change: No Fatigue: No Fever: No Night sweats: No Heent: Alopecia: No H/o Inflammatory eye disease (iritis/scl eritis): No Hearing loss: No Frequent sinusitis: No Oral ulcers: No Sicca: No Parotid swelling: No Hoarseness: No Dysphagia: No Heme/lymph: Lymphadenopathy: No Hematological abnormalities (anemia, thr ombocytopenia, leukopenia): No Abnormal bleeding: No Skin: Malar or discoid lesions: No Photosensitivity: No Other rashes: No Raynaud's phenomenon: No Hives: No Tightness: No Nodules/bumps: No Easy Bruising: No Nail changes: No H/o psoriasis: No Gastroenterology: Nausea: {No Vomiting: No Change in bowel movements: No Heartburn: No Respiratory: Dry cough/SOB: No Cardiovascular: Pain in chest: No Musculoskeletal: Per HPI Joint pain or swelling: No Prolonged morning stiffness: No Back pain or neck pain: No Muscle weakness: No Genitourinary: Vaginal dryness: No Rash/ulcers: No Neurological: Headaches: No Sensitivity or pain of hands and/or feet : No Psychiatry: Anxiety: No Depression: No Poor sleep: No H/o loss: No H/o thrombosis: No Increased susceptibility to infection: N o HISTORY REVIEWED (electronic chart updat ed): PAST MEDICAL HISTORY Diagnosis Date - Anemia, unspecified - Asthma - Atrial fibrillation (HCC) 04/26/2017 - Cardiac disease 2020 pt does not know other than she has hea rt problems - Chronic bronchitis (HCC) - COPD (chronic obstructive pulmonary di sease) ([facility]) Chronic bronchitis by history. - COVID-19 vaccine series completed 07-27-2020 2nd dose Pfizer - Hyperglycemia 12/25/2016 - Hyperthyroidism 05/10/2017 05/10/17 Tatianna TSH 0.020. FT4 high 1.74 , FT3 high 1.83 Symptomatic afib with RVR. NM uptake: no focal areas of u ptake. TSab negative. Microsomal Ab neg - Rheumatoid arthritis (HCC) Maurice. Dayanna Silva MD. 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 Dayanna Richards MD PAST SURGICAL HISTORY Procedure Laterality Date - COLONOSCOPY FLX DX W/COLLJ SPEC WHEN P FRMD 10/09/2019 Colonoscopy - ESOPHAGOGASTRODUODENOSCOPY TRANSORAL D IAGNOSTIC 10/09/2019 EGD - LIG/TRNSXJ FLP TUBE ABDL/VAG APPR UNI/ BI - XCAPSL CTRC RMVL INSJ IO LENS PROSTH W /O ECP Right 12/15/2017 Cataract Extraction with PC IOL - XCAPSL CTRC RMVL INSJ IO LENS PROSTH W /O ECP Left 01/05/2018 Cataract Extraction with PC IOL FAMILY HISTORY Problem Relation Age of Onset - Ischemic Heart Disease Father - Cataract Father - other (COPD, smoker) Father - Cataract Mother - other (COPD, smoker) Mother - other (liver transplant) Sister Etiology of liver disease unknown to pat nishi. - Heart Sister Social History Tobacco Use - Smoking status: Former Smoker Packs/day: 0.50 Years: 30.00 Pack years: 15.00 Start date: 01/01/1970 Quit date: 09/09/2010 Years since quittin.1 - Smokeless tobacco: Never Used Vaping Use - Vaping Use: Never used Substance Use Topics - Alcohol use: No - Drug use: No Current Outpatient Medications Medication Sig - verapamil (CALAN, ISOPTIN) 80 mg table t Take 0.5 tablets by mouth every 8 hours. - nortriptyline (PAMELOR) 25 mg capsule Take 1 capsule by mouth daily at bedtime. - predniSONE (DELTASONE) 5 mg tablet Shelley e 2 tablets by mouth once daily. - gabapentin (NEURONTIN) 400 mg capsule Take 1 capsule by mouth three times daily for 180 days. - leflunomide (ARAVA) 20 mg tablet Take 1 tablet by mouth once daily. - gabapentin (NEURONTIN) 100 (more césar nt not included)... 11-04-2021 Miscellaneous Formatting of this note is d ifferent from the original. [facility] Notes Patient has been identified by name and date of : Yes Pending Prescriptions Disp Refills VERAPAMIL 80 MG TABLET 135 tablet 3 Sig: Take 0.5 tablets by mouth every 8 h ours. UNIQUE: No RX INSTRUCTIONS: Patient aware RX will be sent to pharmac y. No need to notify patient. Christina Kleler Pss documented in this encounter 10-30-2021 Note [facility]: [id number] [facility]: Loli Manuel MA Center Service: ? Author Type: Insole Taper Type: Progress Notes Filed: 10/30/2021 10:27 AM Note Text: Review of Systems Constitutional: Negative for activity ch dora, chills, fever and unexpected weight change. Gastrointestinal: Negative for bowel retention or incontin ence Genitourinary: Negative for difficulty u rinating. Negative for bladder retention or incont inence Musculoskeletal: Positive for arthralgia s, joint swelling and myalgias. Negative for back pain, gait problem, ne ck pain and neck stiffness. Neurological: Positive for numbness and headaches. Negative for weakness. Psychiatric/Behavioral: Negative for dys phoric mood, sleep disturbance and suicidal ideas. The patient is not nervo us/anxious. 10-30-2021 Note [facility] [id number] [facility]: Rick Feng MD Center Service: ? Author Type: Physician Type: Progress Notes Filed: 10/30/2021 10:27 AM Note Text: [facility] General Today's Date: 10/30/2021 Last Visit: N/A Name: Viviana Santana : 1955 Purpose: New Patient Consultation Chief complaint: diffuse body aches and pains Thank you, Dr. Asia Calderón MD, for referring Viviana Santana for evaluation and management options for th e chief complaint(s) noted below. Initial HPI: (Obtained on 10/30/2021) Paxton Santana is a 66 year old female, who presents having been referred by Dr. Asia Calderón MD, for evaluation and management of the above-m entioned chief complaint. - This has been present for the past six years. The onset of symptoms was sudden and was without associated trauma . She reports that six years ago, she was sick with Pneumonia and develope d ILD, since that time, has had diffuse aches and pains. - Treatments prior to initial presentati on include the following: Medications (See below), Modalities (eg. Heat, Ice), Home Exercise Program and Activity Modification. o She exercises occasionally with an exe rcise bike at home - Follows with Dr. Calderón in Rheumatolog y for RA, noted that she had less pain while on low-dose Prednisone, but p ain returned when this was discontinued. She has since been restart ed on it. Reportedly there were concerns about her Hepatic function. - She saw Dr. Begum in pain management on ce on 06/23/2021. Noted she was not a candidate for injections or surgery. N o no medications prescribed, advised lifestyle changes, with follow-u p PRN basis and consider chronic pain rehab program. - Pain Description: o Timing: constant o Character: sharp o Primary Location: diffuse - Reports her head is the only part of h er body that does not hurt (excepting for occasional headaches) o Radiation: none o Exacerbating factors: prolonged sittin g o Relieving factors: walking (limited to household distances by O2 capacity) o Interferes with: physical activity, ho usehold cleaning and social activities o The patient denies difficulty with bow el or bladder control, unintentional weight loss and fevers, ch ills, or night sweats. Current Status: INTAKE PAIN ASSESSMENT 09/18/2021 Are you having pain associated with your visit today? Yes, Provider notified Yes, Provider notified Pain Scales Verbal (Numeric Rating or Vi sual Analog Scale) Verbal (Numeric Rating or Visual Analog Scale) Pain Level 10 10 Pain Location (No Data) Shoulder-Left Description Sharp;Aching;Dull Numbness;T ingling;Aching;Sore Duration Amount of Time - 2 Duration Units - Days Frequency - Intermittent Intervention/Comfort measure Medication Relaxation;Reposition;Positioning;Medica tion;Exercise Comments - - Pain Assessment (RN/REFRIGERATING OILER) - - Medications: CURRENT Pain Medications: - Opioid Pain Medications: None o Date last filled: N/A o Quantity filled: N/A o How many left: N/A o Time most recent dose taken: N/A - Non-Opioid Pain Medications: o Prednisone 10mg daily o Neurontin 200mg qAM and 400mg qHS - he lps, tolerates - Rgfz-eyo-ljikdiz (OTC) Pain Meds: Tyle nol - takes occasionally Compliance: PDMP website checked and validated. All prescriptions have been APPROPRIATELY filled. No suspicious acti vity was identified. by Rick Feng MD 10/30/2021 Last Drug screen: Not Applicable Risk Assessment: SAIRA-7: SAIRA - 7 SCORES 10/30/2021 SAIRA-7 Score 0 (0-4) minimal anxiety, (5-9) mild anxiet y, (10-14) moderate anxiety, (15-21) severe anxiety PHQ-9: PHQ-9 10/30/2021 Score 0 (0-4) minimal depression, (5-9) mild dep ression, (10-14) moderate depression, (15-19) moderately severe de pression, (20-27) severe depression Opioid Risk Tool: Family History of Substance Abuse: 0 - N o Personal History of Substance Abuse: 0 - No Age between 16-45: 0 - No History of Pre-Adolescence Sexual Abuse: 0 - No Psychological Disease: 0 - No Risk Total: 0 Total Score Risk Category: Low Risk 0-3 (0-3, low risk or no risk; 4-7, moderate risk, 8+, high risk) Safety Checklist: - Are you taking proper precautions to s afe guard your medication? Yes - Taking the medications as prescribed? Yes - Getting pain medications from another physician? No - Obtaining pain medication from another source? No - Sharing medications with friends/famil y? No - Quality of life improved as a result o f taking these medications? Yes - Any side effect with this medication? No Justification for Continued Opioid Care: - Adequate analgesia? Yes - Aberrant drug seeking behavior? No - Adverse reactions? No - Medications improve quality of life? Y es Pain Medications Taken TO DATE (for the chief complaint(s)): - Membrane Stabilizers: Neurontin (Gabap entin) and Cymbalta (Duloxetine) - NSAIDS: Motrin (Ibuprofen) and Naprosy n (Naproxen) - does not take NSAIDS due to (more content not included )... 10-30-2021 History of Formatting of this note migh t be different from the original. [facility] Present illness Narrative Review of Systems Constitutional: Negative for activity change, chills, fever and unexpected weight change. Gastrointestinal: Negative for bowel retention or incontin ence Genitourinary: Negative for difficulty u rinating. Negative for bladder retention or incont inence Musculoskeletal: Positive fo r arthralgias, joint swelling and myalgias. Negative for back pain, gait problem, neck pain and neck stiffness. Neurological: Positive for numbness and headaches. Negative for weakness. Psychiatric/Behavioral: Nega tive for dysphoric mood, sleep disturbance and suicidal ideas. The patient is not nervous/anxious. Images from the original note were not i ncluded. [facility] General Today's Date: 10/30/2021 Last Visit: N/A Name: Viviana Santana : 1955 Purpose: New Patient Consultation Chief complaint: diffuse body aches and pains Thank you, Dr. Asia Pereyra ma, MD, for referring Viviana Santana for evaluation and management options for the chief complaint(s) noted below. Initial HPI: (Obtained on ) Viviana Santana is a 66 year old female, who presents having been referred by Dr. Asia Calderón MD, for evaluation and management of the above-mentioned chief complaint. This has been present for t he past six years. The onset of symptoms was sudden and was without associated trauma. She reports that six years ago, she was sick with Pneumonia and developed ILD, since that time, has had diffuse aches and pains. Treatments prior to initial presentation include the following: Medications (See below), Modalities (eg. Heat, Ice), Home Exercise Program and Activity Modification. o She exercises occasionally with an [employer] bike at home Follows with Dr. Calderón in Rheumatology for RA, noted that she had less pain while on low-dose Prednisone, but pain returned when this was discontinued. She has since been restarted on it. Reportedly there were concerns about her Hepatic function. She saw Dr. Begum in pain [place] once on 06/23/2021. Noted she was not a candidate for injections or surgery. No no medications prescribed, advised lifestyle changes, with follow-up PRN basis and consider chronic pain rehab program. Pain Description: o Timing: constant o Character: sharp o Primary Location: diffuse - Reports her head is the on ly part of her body that does not hurt (excepting for occasional headaches) o Radiation: none o Exacerbating factors: prolonged sittin g o Relieving factors: walking (limited to household distances by O2 capacity) o Interferes with: physical activity, ho usehold cleaning and social activities o The patient denies difficu lty with bowel or bladder control, unintentional weight loss and fevers, chills, or night sweats. Current Status: INTAKE PAIN ASSESSMENT 09/18/2021 Are you having pain associat ed with your visit today? 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 All prescriptions have been APPROPRIATELY filled. No suspicious activity was identified. by Rick Feng MD 10/30/2021 Last Drug screen: Not Applicable Risk Assessment: SAIRA-7: SAIRA - 7 SCORES 10/30/2021 SAIRA-7 Score 0 (0-4) minimal anxiety, (5-9) mild anxiety, (10-14) moderate anxiety, (15-21) severe anxiety PHQ-9: PHQ-9 10/30/2021 Score 0 (0-4) minimal depression, (5 -9) mild depression, (10-14) moderate depression, (15-19) moderately severe depression, (20-27) severe depression Opioid Risk Tool: Family History of Substance Abuse: 0 - N o Personal History of Substance Abuse: 0 - No Age between 16-45: 0 - No History of Pre-Adolescence Sexual Abuse: 0 - No Psychological Disease: 0 - No Risk Total: 0 Total Score Risk Category: Low Risk 0-3 (0-3, low risk or no risk; 4-7, moderate risk, 8+, high risk) Safety Checklist: Are you taking proper precautions to sa fe guard your medication? Yes Taking the medications as prescribed? Y es Getting pain medications from another p hysician? No Obtaining pain medication from another source? No Sharing medications with friends/family ? No Quality of life improved as a result of taking these medications? Yes Any side effect with this medication? N o Justification for Continued Opioid Care: Adequate analgesia? Yes Aberrant drug seeking behavior? No Adverse reactions? No Medications improve quality of life? Ye s Pain Medications Taken TO DATE (for the chief complaint(s)): Membrane Stabilizers: Neurontin (Gabape ntin) and Cymbalta (Duloxetine) NSAIDS: Motrin (Ibuprofen) and Naprosyn (Naproxen) - does not take NSAIDS due to being on Prednisone and her cardiac condition Opioids: Percocet (Oxycodone) Muscle Relaxants: none Topicals: none Other Prescription or OTC Pain Medicati ons: Tylenol (Acetaminophen) Anti-depressants: None Non-Pain Meds of Note: Xarelto - for A f ib Allergies: ALLERGIES Allergen Reactions Ragweed Other: See Comments Trees Other: See Comments Diagnostic Studies: Relevant Imaging: Reviewed Personally on today's date, not ed above MRI Spine Report No resulted procedures found. X-ray 04/2021 C-spine: Mild multilevel deg enerative disc changes with narrowing and endplate osteophytes. Mild to moderate facet and uncovertebral arthropathy. No erosions or syndesmophytes. No fracture or compressio n defect. Prevertebral soft tissues are unremarkable. L-spine: Anatomic variant: N one. Straightening of normal lumbar lordosis. Mild multilevel degenerative disc changes with narrowing and endplate osteophytes; moderate degenerative disc changes L5-S1 with endplate sclerosis and osteophytes. Facet arthropathy in the lower lumbar spine with up to moderate fo raminal encroachment at L5-S 1. No pars or compression defect. No erosions or syndesmophytes. SI Joints: No evidence of in flammatory no significant degenerative arthropathy. Bilateral Knees: Minimal ost eoarthritis bilaterally. No evidence of inflammatory arthropathy. Bilateral Feet: No evidence of inflammatory arthropathy. Hallux valgus and digital contractures bilaterally. Bilateral Hands: Degenerativ e changes bilateral hands predominantly in the wrists. No evidence of inflammatory arthropathy. Electrodiagnostic Study (EMG): None Pain Procedures: DATE PROCEDURE IMPROVEMENT None to date at this practice Current Medications, Past Me dical History, Past Surgical History, Family History, Social History and Review of Systems: On today's date, noted above, I have confirmed and edited as necessary, the PFSH and ROS obtained by others. Physical Exam: 10/30/21 0959 Pulse: 88 Resp: 20 SpO2: 97% Constitutional:overweight Eyes: Conjunctiva clear. No discharge fr om eyes Cardiovascular: Appears well perfused Lymphatic: No visible regional lymphaden opathy Skin: No visible rashes or ecchymosis Psychiatric: Full affect, Alert, Pleasan t Neuro-Upper: Sensation: ? Grossly intact to light touch in both upper limbs (C5-T1) dermatomes Strength: ? Deltoid (C5): 5 left, 5 Right ? Biceps (C6): 5 left, 5 Right ? Triceps (C7): 5 left, 5 Right ? Wrist Extensors (C8): 5 left, 5 Right ? Abduct. Pollicis Brevis (T1): 5 left, 5 Right Muscle Tone: ? Normal and symmetric throughout, witho ut clonus Musculoskeletal-Upper: Inspection: ? Symmetric without atrophy Palpation: ? Upper trap and Cervical Paraspinal Ten derness: Concordant with triggering ? Greater Occipital Nerves: no tendernes s in overlying tissue ? Paraspinal spasm: None Range of Motion: ? Flexion/Extension: Normal Without end range pain ? Lateral Bending: Decreased 50% With en d range pain ? Lateral Rotation: Decreased 25% Withou t end range pain Neuro-Lower: Neural Tension Signs: ? Negative slump in Bilateral lower limb s Sensation: ? intact to light touch in the L2-S2 Ryan ateral lower limb dermatomes Muscle Tone: ? Normal and symmetric throughout withou t clonus Strength: ? Iliopsoas (L2): 5 Left, 5 Right ? Quadriceps (L3) 5 Left, 5 Right ? Anterior Tibialis (L4): 5 Left, 5 Righ t ? Extensor Hallucis Longus (L5): 5 Left, 5 Right ? Gastrocnemius (S1): 5 Left, 5 Right Reflexes: ? Decreased 1+ and symmetric Patellar, A chilles Musculoskeletal-Lower: Inspection: ? Symmetric without atrophy Palpation: ? Lumbar Paraspinal Tenderness: None on Bilateral side(s) ? Paraspinal Spasms: None ? PSIS Tenderness: None on Bilateral michele e(s) ? Greater Trochanter Tenderness: None on Bilateral side(s) Spine Range of Motion: ? Flexion: Decreased 25% Without end ran ge pain ? Extension: Decreased 25% Without end r dora pain ? Combination extension and rotation maylin n: None Hip Range of Motion: ? Right Hip: ? Internal Rotation: Normal; Pain at end range: None ? External Rotation: Normal; Pain at end range: None ? Left Hip: ? Internal Rotation: Normal; Pain at end range: None ? External Rotation: Normal; Pain at end range: None Sacroiliac Maneuvers: Deferred Diagnoses: (G89.4) Chronic pain syndrome (primary encounter diagnosis) (M15.9) Generalized OA (M79.18) Myofascial pain Impression: 66 year old fema le with significant past medical history for A Fib on Xarelto, ILD on Home O2 continuously, CESAR, DM2, RA (RF+), Obesity, who presents with complaint(s) of diffuse body aches and pains. Her pain is prima rily due to the RA and diffuse osteoarthritis, but there is some myofascial overlay. Plan: Viviana Santana would shauna efit from the following to reach personal goals for decreasing pain, improving function and work participation, and/or improving quality of life: Medications: Start Pamelor 25mg qHS Continue Neurontin 200mg qAM and 400mg q HS (PCP) Continue Prednisone 10mg daily (Rheum) No NSAIDS (On Xarelto) * Additional Studies: None Referrals: No additional considerations at present Functional [employer]: Physical Therapy (Land-based) - [facility] [address] (Afib and uses O2), has RA Depending on response to the above plan, consider: Alternative anti-epileptic drug (Cymbalta or Effexor); trigger point injections -Follow-up: 2 months ([employer]) Attribution: In addition to reviewing the information noted above, some elements copied from my most recent clinical note(s), including the physical exam (completed in entirety today), and the impressio n and plan sections, have be en updated where appropriate. All reflect current medical decision making from today's date. Rick Feng MD, [facility] documented in this encounter 10-23-2021 Miscellaneous Formatting of this note migh t be different from the original. [facility] Notes Kenymelviantonio APPROVED NO PA REQ [id number] - 11.10.2022 [address] [place] [facility] documented in this encounter 10-22-2021 Note HNO ID: [id number] [facility] l Author: Asia Calderón MD Center Service: ? Author Type: Physician Type: Progress Notes Filed: 10/22/2021 12:53 PM Note Text: VIRTUAL VISIT PROGRESS NOTE This is a virtual visit using [employer] vi alesia visit. It required patient-provider interaction for the med ical decision making as documented below. Viviana Santana is a 66 year old female see n for joint pain. Recent office visit 10/08 - active RA. in crease pred 5 mg till next visit - increase Arava 20 mg daily Feeling better. Still has swelling and p ain. BMD next week Diagnosed with RA 2017. She was admitted at [facility] - double pneumonia, RA. She was seeing rheum but she had insurance conflicts. She was prescribed prednisone, gabapentin, A rava. She presented with toe tingling, knee, hand swelling, elbows, s houlders, neck. She was once diagnosed with anemia. not much improvem ent with Arava. Ran out of Arava few months ago. I am in pain all the ti me . Only steroids help. PCP sent pred She had shoulder injections. PAF, COPD, ILD, DM2, polyneuropathy. She follows with pulm in [place]. RA, chronic steroids, adrenal insuff Family h/o autoimmune disease - father w ith psoriasis Smoking - ex smoker quit 2010 Rheumatology REVIEW OF SYSTEMS: Constitutional: Recent Weight Change: No Fatigue: No Fever: No Night sweats: No Heent: Alopecia: No H/o Inflammatory eye disease (iritis/scl eritis): No Hearing loss: No Frequent sinusitis: No Oral ulcers: No Sicca: No Parotid swelling: No Hoarseness: No Dysphagia: No Heme/lymph: Lymphadenopathy: No Hematological abnormalities (anemia, thr ombocytopenia, leukopenia): No Abnormal bleeding: No Skin: Malar or discoid lesions: No Photosensitivity: No Other rashes: No Raynaud's phenomenon: No Hives: No Tightness: No Nodules/bumps: No Easy Bruising: No Nail changes: No H/o psoriasis: No Gastroenterology: Nausea: {No Vomiting: No Change in bowel movements: No Heartburn: No Respiratory: Dry cough/SOB: No Cardiovascular: Pain in chest: No Musculoskeletal: Per HPI Joint pain or swelling: No Prolonged morning stiffness: No Back pain or neck pain: No Muscle weakness: No Genitourinary: Vaginal dryness: No Rash/ulcers: No Neurological: Headaches: No Sensitivity or pain of hands and/or feet : No Psychiatry: Anxiety: No Depression: No Poor sleep: No H/o loss: No H/o thrombosis: No Increased susceptibility to infection: N o HISTORY REVIEWED (electronic chart updat ed): PAST MEDICAL HISTORY Diagnosis Date - Anemia, unspecified - Asthma - Atrial fibrillation (HCC) 04/26/2017 - Cardiac disease 2020 pt does not know other than she has hea rt problems - Chronic bronchitis (HCC) - COPD (chronic obstructive pulmonary di sease) (HCC) Chronic bronchitis by history. - COVID-19 vaccine series completed 07-27-2020 2nd dose Pfizer - Hyperglycemia 12/25/2016 - Hyperthyroidism 05/10/2017 05/10/17 Tat[place]na TSH 0.020. FT4 high 1.74 , FT3 high 1.83 Symptomatic afib with RVR. NM uptake: no focal areas of u ptake. TSab negative. Microsomal Ab neg - Rheumatoid arthritis (HCC) Leflunomide. Dayanna Silva MD. 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 ([facility]) 12/2016 Dayanna Richards MD PAST SURGICAL HISTORY Procedure Laterality Date - COLONOSCOPY FLX DX W/COLLJ SPEC WHEN P FRMD 10/09/2019 Colonoscopy - ESOPHAGOGASTRODUODENOSCOPY TRANSORAL D IAGNOSTIC 10/09/2019 EGD - LIG/TRNSXJ FLP TUBE ABDL/VAG APPR UNI/ BI - XCAPSL CTRC RMVL INSJ IO LENS PROSTH W /O ECP Right 12/15/2017 Cataract Extraction with PC IOL - XCAPSL CTRC RMVL INSJ IO LENS PROSTH W /O ECP Left 01/05/2018 Cataract Extraction with PC IOL FAMILY HISTORY Problem Relation Age of Onset - Ischemic Heart Disease Father - Cataract Father - other (COPD, smoker) Father - Cataract Mother - other (COPD, smoker) Mother - other (liver transplant) Sister Etiology of liver disease unknown to elvin almodovar. - Heart Sister Social History Tobacco Use - Smoking status: Former Smoker Packs/day: 0.50 Years: 30.00 Pack years: 15.00 Start date: 01/01/1970 Quit date: 09/09/2010 Years since quittin.1 - Smokeless tobacco: Never Used Vaping Use - Vaping Use: Never used Substance Use Topics - Alcohol use: No - Drug use: No Current Outpatient Medications Medication Sig - predniSONE (DELTASONE) 5 mg tablet Shelley e 2 tablets by mouth once daily. - gabapentin (NEURONTIN) 400 mg capsule Take 1 capsule by mouth three times daily for 180 days. - leflunomide (ARAVA) 20 mg tablet Take 1 tablet by mouth once daily. - gabapentin (NEURONTIN) 100 mg capsule Take 2 capsules by mouth twice daily for 180 days. - metoprolol succinate ER (TOPROL XL) 10 0 mg Take 1 tablet by mouth once daily. - rivaroxaban (XARELTO) 20 mg tablet Shelley e 1 tablet by mouth daily with dinner. - ipratropium-albuterol (DUO NEB) 0.5 mg-3 mg(2.5 mg bas (more content not included)... 10-22-2021 Instructions Asia Calderón MD - 2021 11:21 AM EDT [facility] Continue arava 20 mg Labs this week Prednisone 10 mg till next v isit documented in this encounter 10-22-2021 History of Formatting of this note is different f rom the original. [facility] Present illness Narrative VIRTUAL VISIT PROGRESS NOTE This is a virtual visit mike Hernandez video visit. It required patient-provider interaction for the medical decision making as documented below. Viviana Santana is a 66 year old female see n for joint pain. Recent office visit 10/08 - active RA. in crease pred 5 mg till next visit - increase Arava 20 mg daily Feeling better. Still has swelling and p ain. BMD next week Diagnosed with RA 2017. She was admitted at [facility] - double pneumonia, RA. She was seeing rheum but she had insurance conflicts. She was prescribed prednisone, gabapentin, Arava. She presented with toe tingling, knee, fournier nd swelling, elbows, shoulders, neck. She was once diagnosed with anemia. not much improvement with Arava. Ran out of Arava few months ago. I am in pain all the time . Only steroids help. PCP sent pred She had shoulder injections. PAF, COPD, ILD, DM2, polyneuropathy. She follows with pulm in [place]. RA, chronic steroids, adrenal insuff Family h/o autoimmune disease - father w ith psoriasis Smoking - ex smoker quit 2010 Rheumatology REVIEW OF SYSTEMS: Constitutional: Recent Weight Change: No Fatigue: No Fever: No Night sweats: No Heent: Alopecia: No H/o Inflammatory eye disease (iritis/scl eritis): No Hearing loss: No Frequent sinusitis: No Oral ulcers: No Sicca: No Parotid swelling: No Hoarseness: No Dysphagia: No Heme/lymph: Lymphadenopathy: No Hematological abnormalities (anemia, thr ombocytopenia, leukopenia): No Abnormal bleeding: No Skin: Malar or discoid lesions: No Photosensitivity: No Other rashes: No Raynaud's phenomenon: No Hives: No Tightness: No Nodules/bumps: No Easy Bruising: No Nail changes: No H/o psoriasis: No Gastroenterology: Nausea: {No Vomiting: No Change in bowel movements: No Heartburn: No Respiratory: Dry cough/SOB: No Cardiovascular: Pain in chest: No Musculoskeletal: Per HPI Joint pain or swelling: No Prolonged morning stiffness: No Back pain or neck pain: No Muscle weakness: No Genitourinary: Vaginal dryness: No Rash/ulcers: No Neurological: Headaches: No Sensitivity or pain of hands and/or feet : No Psychiatry: Anxiety: No Depression: No Poor sleep: No H/o loss: No H/o thrombosis: No Increased susceptibility to infection: N o HISTORY REVIEWED (electronic chart updat ed): PAST MEDICAL HISTORY Diagnosis Date Anemia, unspecified Asthma Atrial fibrillation (HCC) 04/26/2017 Cardiac disease 2020 pt does not know other than she has hea rt problems Chronic bronchitis (HCC) COPD (chronic obstructive pulmonary dis ease) (HCC) Chronic bronchitis by history. COVID-19 vaccine series completed 07-27-2020 2nd dose Pfizer Hyperglycemia 12/25/2016 Hyperthyroidism 05/10/2017 05/10/17 Tatianna TSH 0.020. F T4 high 1.74, FT3 high 1.83 Symptomatic afib with RVR. NM uptake: no focal areas of uptake. TSab negative. Microsomal Ab neg Rheumatoid arthritis (HCC) Leflunomide. Dayanna Silva MD. 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 Adanlueverett, Dayanna Silva MD PAST SURGICAL HISTORY Procedure Laterality Date COLONOSCOPY FLX DX W/COLLJ SPEC WHEN PF RMD 10/09/2019 Colonoscopy ESOPHAGOGASTRODUODENOSCOPY TRANSORAL DI AGNOSTIC 10/09/2019 EGD LIG/TRNSXJ FLP TUBE ABDL/VAG APPR UNI/B I XCAPSL CTRC RMVL INSJ IO LENS PROSTH W/ O ECP Right 12/15/2017 Cataract Extraction with PC IOL XCAPSL CTRC RMVL INSJ IO LENS PROSTH W/ O ECP Left 01/05/2018 Cataract Extraction with PC IOL FAMILY HISTORY Problem Relation Age of Onset Ischemic Heart Disease Father Cataract Father other (COPD, smoker) Father Cataract Mother other (COPD, smoker) Mother other (liver transplant) Sister Etiology of liver disease unknown to pat nishi. Heart Sister Social History Tobacco Use Smoking status: Former Smoker Packs/day: 0.50 Years: 30.00 Pack years: 15.00 Start date: 01/01/1970 Quit date: 09/09/2010 Years since quittin.1 Smokeless tobacco: Never Used Vaping Use Vaping Use: Never used Substance Use Topics Alcohol use: No Drug use: No Current Outpatient Medications Medication Sig predniSONE (DELTASONE) 5 mg tablet Take 2 tablets by mouth once daily. gabapentin (NEURONTIN) 400 mg capsule Take 1 capsule by mouth three times daily for 180 days. leflunomide (ARAVA) 20 mg tablet Take 1 tablet by mouth once daily. gabapentin (NEURONTIN) 100 mg capsule Take 2 capsules by mouth twice daily for 180 days. metoprolol succinate ER (TOPROL XL) 100 mg Take 1 tablet by mouth once daily. rivaroxaban (XARELTO) 20 mg tablet Take 1 tablet by mouth daily with dinner. ipratropium-albuterol (DUON EB) 0.5 mg-3 mg(2.5 mg base)/3 mL nebu Inhale 3 mL as instructed four times daily. guaiFENesin (MUCINEX) 600 mg 12 hr tabl et Take 1 tablet by mouth twice daily. ergocalciferol 50,000 unit capsule (VITAMIN D2, DRISDOL) Take 1 capsule by mouth one time a week. ondansetron (ZOFRAN) 4 mg t ablet Take 1 tablet by mouth every 6 hours as needed for nausea/vomiting. ferrous gluconate 324 mg (3 7.5 mg iron) tablet Take 1 tablet by mouth twice daily with meals. Miscellaneous Medical Suppl y Portable oxygen concentrator 3l/min at all times. omeprazole (PRILOSEC) 40 mg capsule Shelley e 1 capsule by mouth as needed. verapamil (CALAN, ISOPTIN) 80 mg tablet Take 0.5 tablets by mouth every 8 hours. (Patient taking differently: Take 40 mg by mouth three times daily. ) COMPOUNDED PRESCRIPTION Provide nebuliz er accessory kit. DME: Mohit. COMPOUNDED PRESCRIPTION Accessories for nebulizer J43.1 Panlobular emphysema (HCC) (primar y encounter diagnosis) J84.9 ILD (interstitial lung disease) (H CC) COMPOUNDED PRESCRIPTION #1 Continuous F low Stationary O2 Concentrator Sig: O2 2l/min liter flow Patient is to keep portablel concentrato r as well J43.2 Centrilobular emphysema (HCC) J84.9 ILD (interstitial lung disease) (H CC) J96.11 Chronic respiratory failure with hypoxia (HCC) COMPOUNDED PRESCRIPTION Face mask: hypoxia COMPOUNDED PRESCRIPTION Por table oxygen concentrator, setting 2 at rest, setting 3 with ambulation. (Patient taking differently: Portable oxygen concentrator, setting 2 at rest, setting 3 with ambulation. Is now taking 3 liters continuously ) COMPOUNDED PRESCRIPTION Tamera luate patient for portable pulse dose O2 concentrator. COMPOUNDED PRESCRIPTION Portable oxygen concentrator. acetaminophen (TYLENOL EXTR A STRENGTH) 500 mg tablet Take 1,000 mg by mouth every 6 hours as needed. No current facility-administered medicat ions for this visit. ALLERGIES Allergen Reactions Ragweed Other: See Comments Trees Other: See Comments REVIEW OF SYSTEMS: All other ROS: negative As noted in HPI PHYSICAL EXAMINATION: VIDEO EXAM: (if completed, performed via video enabled technology) GENERAL: alert and appropria te, in no distress, well-hydrated, well nourished and happy, smiling, interactive 2017 - ARISTEO 1:160, RF 123 Results for VIVIANA SANTANA ( ) as of 06/10/2021 09:04 Ref. Range 05/12/2021 12:33 Hep C Antibody IA Latest Ref Range: Nega tive Negative Hep B Surf Ab Quant Latest Ref Range: <1 0.00 mIU/mL <3.10 Hep B Surface Ag Latest Ref Range: Negat guy Negative Hep B Core Ab, Total Latest Ref Range: N EGAT^Negative Negative Rheumatoid Factor Latest Ref Range: <16 IU/mL 441 (H) CCP Antibody, IgG Latest Ref Range: <20 Units >250 (H) Vitamin D 25 Hydroxy Latest Ref Range: 3 0.0 - 100.0 ng/mL 10.4 (L) IMPRESSION: Degenerative changes in the cervical spi ne as described without acute osseous findings. No evidence of inflamm atory arthropathy. Degenerative changes bilateral hands pre dominantly in the wrists. No evidence of inflammatory arthropathy. Degenerative changes in the lumbar spine as described without acute osseous findings. No evidence of inflamm atory arthropathy. No acute osseous findings SI joints. No evidence of inflammatory no significant degenerative arthropathy. No acute osseous findings bilateral knee s. Minimal osteoarthritis bilaterally. No evidence of inflammatory arthropathy. No acute osseous findings bilateral feet . No evidence of inflammatory arthropathy. Hallux valgus and digital c ontractures bilaterally. 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 Patient also has COPD, diabetes and frequent exposure to steroids. Patient has multiple joint pain with positive response only to steroids. Concern for underlying osteoarthritis and steroid dependence. Positive rheumatoid factor is commonly seen in patients with history of smoking. 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 Per e patient there is no concern for rheumatoid arthritis related interstitial lung disease. Continue leflunomide 20 mg for now. Increase pred. Close follow ups. Patient Instructions Continue arava 20 mg Labs this week Prednisone 10 mg till next visit 20 min on my chart - Data collection, Ch arting, talking to patient etc Asia Calderón MD No orders found for this visit on . Medication orders placed this encounter predniSONE (DELTASONE) 5 mg tablet Sig: Take 2 tablets by mouth once daily. Dispense: 60 tablet Refill: 1 Platform used -my chart 20 m in documented in this encounter 10-13-2021 Note HNO ID: [id number] [facility] Author: Peggy Isbell RN [place] Service: ? Author Type: Registered Nurse Type: Progress Notes Filed: 10/13/2021 2:07 PM Note Text: ACM INEZ RN Action/FYI: NO ACTION REQUIRED Patient identified by name and date of b irth. Patient Attributed To: E Payer: [employer] [place] Reason for review or outreach: Suspect Condition Review Summary / Findings: NO ACTION REQUIRED Action Taken: No action needed Contact made with patient: No, Chart review only. Signature: Peggy Isbell RN 10-13-2021 History of Formatting of this note is different f rom the original. [facility] Present illness Narrative ACM INEZ RN Action/FYI: NO ACTION REQUIRED Patient identified by name and date of b irth. Patient Attributed To: QAE Payer: [employer] [place] Reason for review or outreach: Suspect Condition Review Summary / Findings: NO ACTION REQUIRED Action Taken: No action needed Contact made with patient: No, Chart review only. Signature: Peggy Isbell RN documented in this encounter 10-13-2021 Note Patient Outreach ([facility]) [facility] ic Brewer VIVIANA SANTANA ([id number]) 1955 F Date Time Provider Department 10/13/21 PEGGY ISBELL During your visit today, we recorded the following information about you: Peggy Isbell RN 10/13/2021 2:07 PM Sign ed ACM INEZ RN Action/FYI: NO ACTION REQUIRED Patient identified by name and date of b ir. Patient Attributed To: QAE Payer: [employer] Reason for review or outreach: Suspect Condition Review Summary / Findings: NO ACTION REQUIRED Action Taken: No action needed Contact made with patient: No, Chart review only. Signature: Peggy Isbell RN Allergies As of Date: 10/13/2021 Noted A llergy Reaction RAGWEED 03/10/2011 14 - Other: See Comme nts TREES 03/10/2011 14 - Other: See Comment s Date Reviewed: 09/23/2021 Reviewed by: Leslie Walker Ma - Fully Assess ed Reason for Visit: ACM INEZ RN [[id number]] Cmt: Suspect C ondition Review Prescriptions as of 10/13/2021 - gabapentin (NEURONTIN) 400 mg capsule Take 1 capsule by mouth three times mohsen y for 180 days. - leflunomide (ARAVA) 20 mg tablet Take 1 tablet by mouth once daily. - predniSONE (DELTASONE) 5 mg tablet Take 1 tablet by mouth once daily. - gabapentin (NEURONTIN) 100 mg capsule Take 2 capsules by mouth twice daily for 180 days. - metoprolol succinate ER (TOPROL XL) 10 0 mg Take 1 tablet by mouth once daily. - rivaroxaban (XARELTO) 20 mg tablet Take 1 tablet by mouth daily with dinner . - ipratropium-albuterol (DUONEB) 0.5 mg- 3 mg(2.5 mg base)/3 mL nebu Inhale 3 mL as instructed four times devin ly. - guaiFENesin (MUCINEX) 600 mg 12 hr tab let Take 1 tablet by mouth twice daily. - ergocalciferol 50,000 unit capsule ( TAMIN D2, DRISDOL) Take 1 capsule by mouth one time a week. - ondansetron (ZOFRAN) 4 mg tablet Take 1 tablet by mouth every 6 hours as needed for nausea/vomiting. - ferrous gluconate 324 mg (37.5 mg iron ) tablet Take 1 tablet by mouth twice daily with meals. - Miscellaneous Medical Supply Portable oxygen concentrator 3l/min at a ll times. - omeprazole (PRILOSEC) 40 mg capsule Take 1 capsule by mouth as needed. - verapamil (CALAN, ISOPTIN) 80 mg table t Take 0.5 tablets by mouth every 8 hours. - COMPOUNDED PRESCRIPTION Provide nebulizer accessory kit. DME: Serena bonilla. - COMPOUNDED PRESCRIPTION Accessories for nebulizer J43.1 Panlobul ar emphysema (HCC) (primary encounter diagnosis) J84.9 ILD (intersti tial lung disease) (HCC) - COMPOUNDED PRESCRIPTION #1 Continuous Flow Stationary O2 Concent rator Sig: O2 2l/min liter flow Patient is to keep portablel concentrato r as well J43.2 Centrilobular emphysema (HCC) J84.9 ILD (interstitial lung disease) (HCC) J96.11 Chronic respiratory failure with hypoxia (HCC) - COMPOUNDED PRESCRIPTION Face mask: hypoxia - COMPOUNDED PRESCRIPTION Portable oxygen concentrator, setting 2 at rest, setting 3 with ambulation. - COMPOUNDED PRESCRIPTION Evaluate patient for portable pulse dose O2 concentrator. - COMPOUNDED PRESCRIPTION Portable oxygen concentrator. - acetaminophen (TYLENOL EXTRA STRENGTH) 500 mg tablet Take 1,000 mg by mouth every 6 hours as needed. 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 immunosuppressi ve drug*05/19/2017 Paroxysmal atrial fibrillation (HCC) [I4 8.0] 05/10/2017 Hyperthyroidism [E05.90] 05/10/2017 06/0 11/2021 Normocytic anemia [D64.9] 05/28/2017 Pre-diabetes [R73.03] 06/28/2017 Current chronic use of systemic steroids [Z79.5*06/28/2017 Type 2 diabetes mellitus without complic ation, *11/22/2017 Combined 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-related cataract o f both *11/22/2017 01/06/2018 Regular astigmatism, bilateral [H52.223] 11/22/2017 Combined 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-related cataract o f right*12/06/2017 01/06/2018 Combined 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-related cataract o f left *12/06/2017 01/05/2018 Combined 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-related cataract, right e*12/06/2017 12/15/2017 Status post cataract extraction and inse rtion o*12/16/2017 07/28/2018 Combined form of age-related cataract, l eft eye*12/27/2017 01/06/2018 Status post cataract extraction and inse rtion o*01/06/2018 07/28/2018 Vitreous floaters of both eyes [H43.393] 07/28/2018 Pseudophakia of both eyes [Z96.1] 2018 CESAR (obstructive sleep apnea) [G47.33] 1 Pneumonia of right upper lobe due to met hicilli*02/13/2019 10/06/2019 Acute ryan (more content not included)... 09-23-2021 Note HNO ID: [id number] [facility] Author: Alexa Becerra PA-C [place] Service: ? Author Type: Physician Hotel Assistant Manager Type: Progress Notes Filed: 09/24/2021 10:58 AM Note Text: 66 year old female with c/o here for fol low up Paroxysmal atrial fibrillation Chronic respiratory failure with hypoxia No chest pain, SOB, dyspnea, orthopnea, racing or irregular heartbeats, palpitations, syncopal sx, leg swelling, nausea, diaphoresis or heartburn. Breathing is stable on O2 No use of rescue nebs since last visit Rheumatoid arthritis involving multiple sites with positive rheumatoid factor (hcc) 09/18/2021aw Dr. Asia Calderón rheum Was able to manage a prednisone 2 mg but 1mg did not help. Currently on prednisone 5mg daily x 40 Increased Leflunomide to 20mg daily Able to walk- much better Elevated ferritin Component Latest Ref Rng AND Units 202109/09/2021 09/18/2021 WBC 3.70 - 11.00 k/uL 15.43 (H) 9.48 10. 36 RBC 3.90 - 5.20 m/uL 3.79 (L) 3.78 (L) 3 .76 (L) Hemoglobin 11.5 - 15.5 g/dL 11.4 (L) 11. 5 11.5 Hematocrit 36.0 - 46.0 % 39.7 39.3 37.9 MCV 80.0 - 100.0 fL 104.7 (H) 104.0 (H) 100.8 (H) MCH 26.0 - 34.0 pg 30.1 30.4 30.6 MCHC 30.5 - 36.0 g/dL 28.7 (L) 29.3 (L) 30.3 (L) RDW-CV 11.5 - 15.0 % 13.7 13.4 13.4 Platelet Count 150 - 400 k/uL 381 368 33 4 MPV 9.0 - 12.7 fL 10.2 10.1 9.8 Neut% % 83.4 65.9 80.2 Abs Neut (ANC) 1.45 - 7.50 k/uL 12.87 (H ) 6.25 8.31 (H) Lymph% % 9.4 22.3 11.5 Abs Lymph 1.00 - 4.00 k/uL 1.45 2.11 1.1 9 Washburn% % 3.8 5.9 4.2 Abs [place] <0.87 k/uL 0.58 0.56 0.44 Eosin% % 2.0 4.3 2.9 Abs Eosin <0.46 k/uL 0.31 0.41 0.30 Baso% % 0.6 1.2 0.9 Abs Baso <0.11 k/uL 0.10 0.11 (H) 0.09 Immature Gran % % 0.8 0.4 0.3 IMMATURE GRANS (ABS) <0.10 k/uL 0.12 (H) 0.04 0.03 NRBC /100 WBC 0.0 0.0 0.0 Absolute nRBC <0.01 k/uL <0.01 <0.01 <0. 01 DTYPE Auto Auto Auto Iron 41 - 186 ug/dL 31 (L) TIBC 232 - 386 ug/dL 190 (L) Transferrin Saturation 15 - 57 % 16 Ferritin 14.7 - 205.1 ng/mL 521.0 (H) 48 9.6 (H) Iatrogenic adrenal insufficiency (hcc) Component Latest Ref Rng AND Units 021 09/09/2021 Cortisol 4.8 - 19.5 ug/dL 3.9 (L) 6.1 Lung nodule, multiple 09/05/2020 CT abdomen pelvis with and wit hout contrast: Moderate to severe fibrotic changes noted lung bases with b ronchiectasis changes in right middle lobe, likely early infiltrate rig ht lower lobe, slightly larger bilateral pleural effusions and bibasila r atelectasis. 06/27/2020 chest x-ray with findings sugg estive of interstitial lung disease 07/27/2017 CT chest without: Mild diffuse bronchiectasis, stable nodular opacities with tree-in-bud type nodules both lungs, stable reticulation within periphery of the lungs and lower lobes bilaterally with associated traction bronchiectasis. Findings sugges tive of interstitial lung disease with superimposed chronic infection, pos sible atypical pneumonia or chronic aspiration. Interval improvement in mediastinal adenopathy compared to prior exam. Type 2 diabetes mellitus without complic ation, without long-term current use of insulin (hcc) Current medications: Metformin 500mg daily Taking medication as directed consistent ly? Yes Medical Issues / Complications: hyperten amadou and hyperlipidemia Checking blood sugars at home? No. Watching diet? Yes Physical Activity: Sedentary Hypoglycemic spells? No. Some night swea ts. Any visual disturbance? No Chest pain? No New numbness, tingling or loss of sensat ion? No Any recent foot problems, sores or rashe s? No Any recent or sudden weight loss? No Change in urination? No. If yes: Any recent illness? No Last eye exam: up to date. Last foot exam: due. HBA1C: Hemoglobin A1C (%) Date Value 09/09/2021 5.3 06/17/2020 6.1 02/12/2020 6.4 ) CMP: Glucose 104 09/18/2021 BUN 12 09/18/2021 Creatinine 0.79 09/18/2021 Sodium 137 09/18/2021 Potassium 4.3 09/18/2021 Chloride 99 09/18/2021 CO2 28 09/18/2021 Protein, Total 7.1 09/18/2021 Albumin 3.5 09/18/2021 Calcium 9.3 09/18/2021 Alkaline Phosphatase 113 09/18/2021 Bilirubin, Total 0.3 09/18/2021 AST 16 09/18/2021 ALT 6 09/18/2021 Last 2 Encounter Wt Readings: Date: Wt: 09/23/2021 80.3 kg (177 lb) 09/18/2021 81.2 kg (179 lb) Cesar (obstructive sleep apnea) Not treated: couldn't wear mask. Keeps HOB at 30 degrees which helps snor ing Hyperthyroidism 05/10/17 Tatianna TSH 0.020. FT4 high 1.74 , FT3 high 1.83 Symptomatic afib with RVR. NM uptake: no focal areas of u ptake. TSab negative. Microsomal Ab neg No medications ? Thyroid pain: No. ? Mass effect: No. ? Change in energy level/ fatigue? fine . ? Sleep disturbance ? Sleeps well. ? Temperature Intolerance: cold No, hot Yes. Night sweats ? In females, menstrual cycle issues? No , If yes: ? Change in bowel habits? No. If yes: ? Constipation? No. If yes: ? Diarrhea? No. If yes: ? Weight changes?Yes.intentional weight loss + increased mobility on prednisone ? Memory issues: No. ? Diaphoresis: Yes. ? Numbness, (more content not included). .. 09-23-2021 History of Formatting of this note is different f rom the original. [facility] Present illness Narrative 66 year old female with c/o here f or follow up Paroxysmal atrial fibrillation Chronic respiratory failure with hypoxia No chest pain, SOB, dyspnea, orthopnea, racing or irregular heartbeats, palpitations, syncopal sx, leg swelling, nausea, diaphoresis or heartburn. Breathing is stable on O2 No use of rescue nebs since last visit Rheumatoid arthritis involvi ng multiple sites with positive rheumatoid factor (hcc) 09/18/2021aw Dr. Asia valle Was able to manage a prednisone 2 mg but 1mg did not help. Currently on prednisone 5mg daily x 40 Increased Leflunomide to 20mg daily Able to walk- much better Elevated ferritin Component Latest Ref Rng & Units 05/12/19 22 09/09/2021 09/18/2021 WBC 3.70 - 11.00 k/uL 15.43 (H) 9.48 10. 36 RBC 3.90 - 5.20 m/uL 3.79 (L) 3.78 (L) 3 .76 (L) Hemoglobin 11.5 - 15.5 g/dL 11.4 (L) 11. 5 11.5 Hematocrit 36.0 - 46.0 % 39.7 39.3 37.9 MCV 80.0 - 100.0 fL 104.7 (H) 104.0 (H) 100.8 (H) MCH 26.0 - 34.0 pg 30.1 30.4 30.6 MCHC 30.5 - 36.0 g/dL 28.7 (L) 29.3 (L) 30.3 (L) RDW-CV 11.5 - 15.0 % 13.7 13.4 13.4 Platelet Count 150 - 400 k/uL 381 368 33 4 MPV 9.0 - 12.7 fL 10.2 10.1 9.8 Neut% % 83.4 65.9 80.2 Abs Neut (ANC) 1.45 - 7.50 k/uL 12.87 (H ) 6.25 8.31 (H) Lymph% % 9.4 22.3 11.5 Abs Lymph 1.00 - 4.00 k/uL 1.45 2.11 1.1 9 Washburn% % 3.8 5.9 4.2 Abs [place] <0.87 k/uL 0.58 0.56 0.44 Eosin% % 2.0 4.3 2.9 Abs Eosin <0.46 k/uL 0.31 0.41 0.30 Baso% % 0.6 1.2 0.9 Abs Baso <0.11 k/uL 0.10 0.11 (H) 0.09 Immature Gran % % 0.8 0.4 0.3 IMMATURE GRANS (ABS) <0.10 k/uL 0.12 (H) 0.04 0.03 NRBC /100 WBC 0.0 0.0 0.0 Absolute nRBC <0.01 k/uL <0.01 <0.01 <0. 01 DTYPE Auto Auto Auto Iron 41 - 186 ug/dL 31 (L) TIBC 232 - 386 ug/dL 190 (L) Transferrin Saturation 15 - 57 % 16 Ferritin 14.7 - 205.1 ng/mL 521.0 (H) 48 9.6 (H) Iatrogenic adrenal insufficiency (hcc) Component Latest Ref Rng & Units 09/09/2021 Cortisol 4.8 - 19.5 ug/dL 3.9 (L) 6.1 Lung nodule, multiple 09/05/2020 CT abdomen pelvis with and without contrast: Moderate to severe fibrotic changes noted lung bases with bronchiectasis changes in right middle lobe, likely early infiltrate right lower lobe, sl ightly larger bilateral pleural effusion s and bibasilar atelectasis. 06/27/2020 chest x-ray with findings sugg estive of interstitial lung disease 07/27/2017 CT chest without: Mild diffuse bronchiectasis, stable nodular opacities with tree-in-bud type nodules both lungs, stable reticulation within periphery of the lungs and lower lobes bilaterally with associated traction bro nchiectasis. Findings suggestive of interstitial lung disease with superimposed chronic infection, possible atypical pneumonia or chronic aspiration. Interval improvement in mediastinal adenopathy compared to prior exam. Type 2 diabetes mellitus wit hout complication, without long-term current use of insulin (hcc) Current medications: Metformin 500mg daily Taking medication as directed consistent ly? Yes Medical Issues / Complications: hyperten amadou and hyperlipidemia Checking blood sugars at home? No. Watching diet? Yes Physical Activity: Sedentary Hypoglycemic spells? No. Some night swea ts. Any visual disturbance? No Chest pain? No New numbness, tingling or loss of sensat ion? No Any recent foot problems, sores or rashe s? No Any recent or sudden weight loss? No Change in urination? No. If yes: Any recent illness? No Last eye exam: up to date. Last foot exam: due. HBA1C: Hemoglobin A1C (%) Date Value 09/09/2021 5.3 06/17/2020 6.1 02/12/2020 6.4 ) CMP: Glucose 104 09/18/2021 BUN 12 09/18/2021 Creatinine 0.79 09/18/2021 Sodium 137 09/18/2021 Potassium 4.3 09/18/2021 Chloride 99 09/18/2021 CO2 28 09/18/2021 Protein, Total 7.1 09/18/2021 Albumin 3.5 09/18/2021 Calcium 9.3 09/18/2021 Alkaline Phosphatase 113 09/18/2021 Bilirubin, Total 0.3 09/18/2021 AST 16 09/18/2021 ALT 6 09/18/2021 Last 2 Encounter Wt Readings: Date: Wt: 09/23/2021 80.3 kg (177 lb) 09/18/2021 81.2 kg (179 lb) Cesar (obstructive sleep apnea) Not treated: couldn't wear mask. Keeps HOB at 30 degrees which helps snor ing Hyperthyroidism 05/10/17 Tat[place]na TSH 0.020. F T4 high 1.74, FT3 high 1.83 Symptomatic afib with RVR. NM uptake: no focal areas of uptake. TSab negative. Microsomal Ab neg No medications Thyroid pain: No. Mass effect: No. Change in energy level/ fatigue? fine . Sleep disturbance ? Sleeps well. Temperature Intolerance: cold No, hot Y es. Night sweats In females, menstrual cycle issues? No, If yes: Change in bowel habits? No. If yes: Constipation? No. If yes: Diarrhea? No. If yes: Weight changes?Yes.intentional weight l oss + increased mobility on prednisone Memory issues: No. Diaphoresis: Yes. Numbness, tingling toes and fingers: ch ronic, unchanged. Radiological imaging with contrast dyes within the last 3 months? No. History of radiation exposure to head o r neck area? No. Change in hair or skin? No. If yes: Other symptoms: Last 2 Encounter Wt Readings: Date: Wt: 09/23/2021 80.3 kg (177 lb) 09/18/2021 81.2 kg (179 lb) Last thyroid labs: TSH Date Value 09/09/2021 0.382 mIU/L 06/17/2020 0.492 uU/mL 11/28/2018 0.542 uU/mL ) HISTORIES FAMILY HISTORY Problem Relation Age of Onset Ischemic Heart Disease Father Cataract Father other (COPD, smoker) Father Cataract Mother other (COPD, smoker) Mother other (liver transplant) Sister Etiology of liver disease unknown to elvin almodovar. Heart Sister PAST MEDICAL HISTORY Diagnosis Date Anemia, unspecified Asthma Atrial fibrillation (HCC) 04/26/2017 Cardiac disease 2020 pt does not know other than she has hea rt problems Chronic bronchitis (HCC) COPD (chronic obstructive pulmonary dis ease) (HCC) Chronic bronchitis by history. COVID-19 vaccine series completed 07-27-2020 2nd dose Pfizer Hyperglycemia 12/25/2016 Hyperthyroidism 05/10/2017 [place] Rheumatoid arthritis (HCC) Leflunomide. Dayanna Silva MD. 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 Leflunomide, Dayanna Silva MD PAST SURGICAL HISTORY Procedure Laterality Date COLONOSCOPY FLX DX W/COLLJ SPEC WHEN PF RMD 10/09/2019 Colonoscopy ESOPHAGOGASTRODUODENOSCOPY TRANSORAL DI AGNOSTIC 10/09/2019 EGD LIG/TRNSXJ FLP TUBE ABDL/VAG APPR UNI/B I XCAPSL CTRC RMVL INSJ IO LENS PROSTH W/ O ECP Right 12/15/2017 Cataract Extraction with PC IOL XCAPSL CTRC RMVL INSJ IO LENS PROSTH W/ O ECP Left 01/05/2018 Cataract Extraction with PC IOL Social History Tobacco Use Smoking status: Former Smoker Packs/day: 0.50 Years: 30.00 Pack years: 15.00 Start date: 01/01/1970 Quit date: 09/09/2010 Years since quittin.0 Smokeless tobacco: Never Used Vaping Use Vaping Use: Never used Substance Use Topics Alcohol use: No Drug use: No ACTIVE PROBLEM LIST Allergic Rhinitis Due to Pollen Chronic Rhinitis Centrilobular Emphysema (Hcc) Ild (Interstitial Lung Disease) (Hcc) Lung Nodule, Multiple Iatrogenic Adrenal Insufficiency (Hcc) Chronic Respiratory Failure With Hypoxia (Hcc) Rheumatoid Arthritis Involvi ng Multiple Sites With Positive Rheumatoid Factor (Hcc) Senior Care Current Use of Immunosuppressi ve Drug Paroxysmal Atrial Fibrillation (Hcc) Hyperthyroidism Normocytic Anemia Pre-Diabetes Current Chronic Use of Systemic Steroids Type 2 Diabetes Mellitus Wit hout Complication, Without Long-Term Current Use of Insulin (Hcc) Regular Astigmatism, Bilateral Vitreous Floaters of Both Eyes Pseudophakia of Both Eyes Cesar (Obstructive Sleep Apnea) Cholesteatoma, Bilateral Obesity, Class I, Bmi 30-34.9 Encounter for Support and Coordination o f Transition of Care Chronic Neutrophilia Current Outpatient Medications Medication Sig Dispense Refill leflunomide (ARAVA) 20 mg t ablet Take 1 tablet by mouth once daily. 30 tablet 2 predniSONE (DELTASONE) 5 mg tablet Take 1 tablet by mouth once daily. 40 tablet 0 gabapentin (NEURONTIN) 100 mg capsule Take 2 capsules by mouth twice daily for 180 days. (Patient taking differently: Take 200 mg by mouth three times daily. ) 120 capsule 5 metoprolol succinate ER (TO PROL XL) 100 mg Take 1 tablet by mouth once daily. 90 tablet 3 rivaroxaban (XARELTO) 20 mg tablet Take 1 tablet by mouth daily with dinner. 90 tablet 3 ipratropium-albuterol (DUON EB) 0.5 mg-3 mg(2.5 mg base)/3 mL nebu Inhale 3 mL as instructed four times daily. 120 Vial 11 guaiFENesin (MUCINEX) 600 mg 12 hr tabl et Take 1 tablet by mouth twice daily. metFORMIN ER (GLUCOPHAGE XR ) 500 mg 24 hr tablet Take 1 tablet by mouth once daily. 90 tablet 1 ergocalciferol 50,000 unit capsule (VITAMIN D2, DRISDOL) Take 1 capsule by mouth one time a week. 20 capsule 0 ondansetron (ZOFRAN) 4 mg t ablet Take 1 tablet by mouth every 6 hours as needed for nausea/vomiting. 20 tablet 0 ferrous gluconate 324 mg (3 7.5 mg iron) tablet Take 1 tablet by mouth twice daily with meals. 60 tablet 5 gabapentin (NEURONTIN) 400 mg capsule Take 1 capsule by mouth three times daily for 180 days. (Patient taking differently: Take 400 mg by mouth daily at bedtime. ) 90 capsule 5 Miscellaneous Medical Suppl y Portable oxygen concentrator 3l/min at all times. 1 Each 0 omeprazole (PRILOSEC) 40 mg capsule Shelley e 1 capsule by mouth as needed. verapamil (CALAN, ISOPTIN) 80 mg tablet Take 0.5 tablets by mouth every 8 hours. 135 tablet 3 COMPOUNDED PRESCRIPTION Pro vide nebulizer accessory kit. DME: [employer]. 1 Each 5 COMPOUNDED PRESCRIPTION Accessories for nebulizer J43.1 Panlobular emphysema (HCC) (primar y encounter diagnosis) J84.9 ILD (interstitial lung disease) (H CC) 1 Each 1 COMPOUNDED PRESCRIPTION #1 Continuous F low Stationary O2 Concentrator Sig: O2 2l/min liter flow Patient is to keep portablel concentrato r as well J43.2 Centrilobular emphysema (HCC) J84.9 ILD (interstitial lung disease) (H CC) J96.11 Chronic respiratory failure with hypoxia (HCC) 1 Each 0 COMPOUNDED PRESCRIPTION Face mask: hypoxia 1 Each 0 COMPOUNDED PRESCRIPTION Por table oxygen concentrator, setting 2 at rest, setting 3 with ambulation. (Patient taking differently: Portable oxygen concentrator, setting 2 at rest, setting 3 with ambulation. Is now taking 3 liters continuously ) 1 Each 1 COMPOUNDED PRESCRIPTION Tamera luate patient for portable pulse dose O2 concentrator. 1 Each 0 COMPOUNDED PRESCRIPTION Portable oxygen concentrator. 1 Each 0 acetaminophen (TYLENOL EXTR A STRENGTH) 500 mg tablet Take 1,000 mg by mouth every 6 hours as needed. Current Facility-Administered Medication s Medication Dose Route Frequency Provider Last Rate Last Admin perflutren lipid microspher es 1.3 mL in NaCl (PF) 0.9% 10 mL injection (DEFINITY) INTRAVENOUS DIRECTED PRN Jacquelin Patel PA-C sodium chloride 0.9 % (flus h) 10 mL (BD POSIFLUSH) 10 mL INTRAVENOUS DIRECTED PRN Jacquelin Patel PA-C DIABETIC FOOT EXAM Never done HIV SCREENING Never done SHINGRIX VACCINE(1 of 2) Never done MAMMOGRAM due on 12/27/2019 DEPRESSION SCREENING due on 02/14/2020 URINE ALBUMIN:CREATININE RATIO due on LDL CHOLESTEROL due on 06/17/2021 COVID-19 VACCINE(4 - Booster for Pfizer series) due on 07/03/2021 EXAM: BP 120/70 Pulse 85 Wt 80 .3 kg (177 lb) LMP (LMP Unknown) SpO2 96% BMI 31.35 kg/m Pleasant overweight woman in no acute distress. Alert and oriented all spheres. Normal affect and cognition. Speech normal. No deficits to learning or comprehension. Skin warm, dry, pink to lips and nailbeds. Normal turgor. At baseline, speaking in full sentences. Respirations regular and unl abored at rest, mild dyspnea with exertion. O2 on at 2 L/min per nasal cannula. Chest is normal shape. Lungs are auscultated for dry fibrotic crackles throughout all ocampo with good air exchange heard in bases. HRRR without murmur or gallop. No lifts, heaves, or rubs. Extrem: no clubbing or cyano sis. Edema: edema. Extremities are warm and pink with prompt capillary refill. ASSESSMENT/PLAN: 1. Hypertriglyceridemia - ICD9: 272.1, I CD10: E78.1 (primary diagnosis) - good control - Continue current medication. - Encouraged following a low fat, low ch olesterol diet. - Discussed the benefits of regular aero bic exercise and weight loss. - LIPID PANEL BASIC - HGB A1C 2. Paroxysmal atrial fibrillation (HCC) - ICD9: 427.31, ICD10: I48.0 Stable in controlled rhythm, asymptomati c 3. Chronic respiratory failu re with hypoxia (HCC) - ICD9: 518.83, 799.02, ICD10: J96.11 Doing well, at baseline. No use of aerosols 4. Type 2 diabetes mellitus without complication, without long-term current use of insulin (HCC) - ICD9: 250.00, ICD10: E11.9 Well controlled Lost mild weight, has been more active o n steroids. - Stop metformin and follow hgba1c 3 mo - Encouraged regular aerobic exercise an d weight loss - LIPID PANEL BASIC - HGB A1C 5. Rheumatoid arthritis invo lving multiple sites with positive rheumatoid factor (HCC) - ICD9: 714.0, ICD10: M05.79 Following with rheum Improved on low dose steroids 6. Elevated ferritin - ICD9: 790.6, ICD1 0: R79.89 Resolved on steroids 7. Iatrogenic adrenal insufficiency (HCC ) - ICD9: 255.41, ICD10: E27.49 stable 8. Lung nodule, multiple - ICD9: 793.19, ICD10: R91.8 No recent follow up 9. longterm current use of immunosuppressive drug - ICD9: V58.69, ICD10: Z79.899 10. Pre-diabetes - ICD9: 790.29, ICD10: R73.03 As above 11. CESAR (obstructive sleep apnea) - ICD9 : 327.23, ICD10: G47.33 No current treatment Discussed options: not interested chika barakat 12. Hyperthyroidism - ICD9: 242.90, ICD1 0: E05.90 Transient. Continues with normal labs: will resolve d and add to hx Alexa Becerra PA-C documented in this encounter 09-19-2021 Note HNO ID: [id number] [facility] Author: Isaac Panchal, OD Justinrodrigo raymond Service: ? Author Type: BEAM BUILDER HELPER Type: Progress Notes Filed: 09/19/2021 4:03 PM Note Text: ASSESSMENT/PLAN: 1. Type 2 diabetes mellitus without reti nopathy (HCC) - ICD9: 250.00, ICD10: E11.9 (primary diagnosis) Examination shows no ocular diabetic com plications today. Discussed need for optimal diabetes control to minimize chance of ocular complications. Advise patient to immediately report wor sening in status or additional symptoms. Continue yearly dilated eye ex aminations. 2. Vitreous floaters of both eyes - ICD9 : 379.24, ICD10: H43.393 Vitreal floaters stable both eyes. Retin as flat and intact with no apparent retinal tear or traction. Discu ssed symptoms of retinal tear/detachment and if seen patient will return to clinic without delay. 3. Pseudophakia of both eyes - ICD9: V43 .1, ICD10: Z96.1 Posterior chamber intraocular lenses are well positioned. 4. After cataract of left eye not obscur ing vision - ICD9: 366.52, ICD10: H26.492 Continue to monitor. Recommended yearly dilated exams. Isaac Panchal, OD I have confirmed and edited as necessary the relevant ophthalmic history, ROS, and the neuro exam findings as obta ined by others. I have seen and examined this patient. 09-19-2021 Instructions Isaac Panchal, OD - 0 09/19/2021 4:03 PM EDT [facility] ASSESSMENT/PLAN: 1. Type 2 diabetes mellitus without retinopathy (HCC) - ICD9: 250.00, ICD10: E11.9 (primary diagnosis) Examination shows no ocular diabetic complications today. Discussed need for optimal diabetes control to minimize chance of ocular complications. Advise patient to immediately report worsening in status or additional symptoms. Continue yearly dilated eye examinations. 2. Vitreous floaters of both eyes - ICD9 : 379.24, ICD10: H43.393 Vitreal floaters stable both eyes. Retinas flat and intact with no apparent retinal tear or traction. Discussed symptoms of retinal tear/detachment and if seen patient will return to clinic without delay. 3. Pseudophakia of both eyes - ICD9: V43 .1, ICD10: Z96.1 Posterior chamber intraocular lenses are well positioned. 4. After cataract of left ey e not obscuring vision - ICD9: 366.52, ICD10: H26.492 Continue to monitor. Recommended yearly dilated e xams. documented in this encounter 09-19-2021 History of Formatting of this note migh t be different from the original. [facility] Present illness Narrative ASSESSMENT/PLAN: 1. Type 2 diabetes mellitus without retinopathy (HCC) - ICD9: 250.00, ICD10: E11.9 (primary diagnosis) Examination shows no ocular diabetic complications today. Discussed need for optimal diabetes control to minimize chance of ocular complications. Advise patient to immediately report worsening in status or additional symptoms. Continue yearly dilated eye examinations. 2. Vitreous floaters of both eyes - ICD9 : 379.24, ICD10: H43.393 Vitreal floaters stable both eyes. Retinas flat and intact with no apparent retinal tear or traction. Discussed symptoms of retinal tear/detachment and if seen patient will return to clinic without delay. 3. Pseudophakia of both eyes - ICD9: V43 .1, ICD10: Z96.1 Posterior chamber intraocular lenses are well positioned. 4. After cataract of left ey e not obscuring vision - ICD9: 366.52, ICD10: H26.492 Continue to monitor. Recommended yearly dilated exams. Isaac Panchal, OD I have confirmed and edited as necessary the relevant ophthalmic history, ROS, and the neuro exam findings as obtained by others. I have seen and examined this patient. documented in this encounter 09-18-2021 Note HNO ID: [id number] [facility] Author: Asia Calderón MD Center Service: ? Author Type: Physician Type: Progress Notes Filed: 09/19/2021 9:03 AM Note Text: RHEUMATOLOGY PROGRESS NOTE Patient is here for a follow up visit fo r Patient presents with: Joint Pain HPI: Viviana Santana is a 66 year old femal e who presents joint pain Pain in toes - tingling, numbness, ankle s, knees., shoulders. Noticed bumps in elbows. Hurts. Sees pain anesthesia. - She is not a can didate for spinal injections or surgery at this time. Brief Rheumatological history - Not on Arava 10 mg daily. More joint maylin n since not on pred. ? ? Diagnosed with RA 2016. She was admitted at [facility] - double pneumonia, RA. She was seeing rheum but she had insurance conflicts. She was prescribed prednisone, gabapentin, A rava. She presented with toe tingling, knee, hand swelling, elbows, s houlders, neck. She was once diagnosed with anemia. not much improvem ent with Arava. Ran out of Arava few months ago. I am in pain all the ti me . Only steroids help. PCP sent pred She had shoulder injections. ? PAF, COPD, ILD, DM2, polyneuropathy. She follows with pulm in [place]. RA, chronic steroids, adrenal insuff ? Family h/o autoimmune disease - father w ith psoriasis ? Smoking - ex smoker quit 2010 ? Interval Review of Systems CONSTITUTIONAL: Recent Weight change: No Fever: No EYES: Dryness in nose: No Dryness of mouth: No Oral ulcers: No CARDIOVASCULAR: Pain in chest: No RESPIRATORY: Shortness of breath: No Cough: No GASTROINTESTINAL: Nausea: No Vomiting: No Changes in bowel movements: No Jaundice: No Heartburn: No MUSCULOSKELETAL: Per HPI INTEGUMENTARY: Rash: No HEMATOLOGIC/LYMPHATIC: Anemia: No NEUROLOGICAL SYSTEM: Headaches: No Sensitivity or pain of hands and/or feet : No PSYCHIATRIC: Anxiety: No Poor sleep: No PAST MEDICAL HISTORY Diagnosis Date - Anemia, unspecified - Asthma - Atrial fibrillation (HCC) 04/26/2017 - Cardiac disease 2020 pt does not know other than she has hea rt problems - Chronic bronchitis (HCC) - COPD (chronic obstructive pulmonary di sease) (HCC) Chronic bronchitis by history. - COVID-19 vaccine series completed 07-27-2020 2nd dose Pfizer - Hyperglycemia 12/25/2016 - Hyperthyroidism 05/10/2017 [place] - Rheumatoid arthritis ([facility]) Leflunomide. Dayanna Silva MD. 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 [place], Dayanna Silva MD PAST SURGICAL HISTORY Procedure Laterality Date - COLONOSCOPY FLX DX W/COLLJ SPEC WHEN P FRMD 10/09/2019 Colonoscopy - ESOPHAGOGASTRODUODENOSCOPY TRANSORAL D IAGNOSTIC 10/09/2019 EGD - LIG/TRNSXJ FLP TUBE ABDL/VAG APPR UNI/ BI - XCAPSL CTRC RMVL INSJ IO LENS PROSTH W /O ECP Right 12/15/2017 Cataract Extraction with PC IOL - XCAPSL CTRC RMVL INSJ IO LENS PROSTH W /O ECP Left 01/05/2018 Cataract Extraction with PC IOL History Review: I have reviewed and nelia fied as needed, the following during this visit: Allergies, Past Medic al History, Past Surgical History, Past Family History, Past Social History . BP 148/88 Pulse 82 Temp (!) 35.7 ?C (96.2 ?F) (Temporal) Resp 20 Ht 160 cm (5' 3 ) Wt 81.2 kg (179 lb ) LMP (LMP Unknown) BMI 31.71 kg/m? Physical Exam GENERAL: Well appearing, alert, comforta ble, in no acute distress, well-hydrated, well nourished. HEENT: Negative for external ears normal . Canals are clear. Both TMs visualized and are normal. Eye Exam norm al. External nose normal, no nasal ulcer or throat ulcer. NECK: NECK Supple, no adenopathy; thyroi d symmetric, normal size, no bruits CARDIAC: regular rate and rhythm, No mur mur asculated. and Equal peripheral pulses RESPIRATORY: Lungs clear to auscultation . No wheezing, rhonchi, rales VASCULAR: RRR without murmur, gallop, or rubs. No ectopy. NEURO: Motor and sensory exam normal MOTOR: Normal; including tone, gait, str essed gait, power and coordination. SKIN: Negative for alopecia, skin rash, malar rash, skin lesion, skin ulcer, pits, thickening, color changes, telangiectasias, nail changes, nail ridging, nail pitting, onycholysis MUSCULOSKELETAL: DIPS: Normal PIPS: Abnormal, mild synovitis all PIPs bl MCPs: Abnormal, synovitis MCP 2,3 left Wrists: Normal Elbows: Normal Shoulders: Normal C-Spine: Normal Hips: Normal Knees: Abnormal, effusion bl, warm, tend er Ankles: Normal MTPs / Toes: Normal Arches: Normal Lab Results: Glucose 103 09/09/2021 ALT 6 09/09/2021 WBC 9.48 09/09/2021 Hemoglobin 11.5 09/09/2021 Platelet Count 368 09/09/2021 WSR 56 12/23/2016 CRP 5.2 12/23/2016 Serology: Radiology: 2017 - ARISTEO 1:160, RF 123 ? Results for VIVIANA SANTANA ( ) as of 06/10/2021 09:04 ? Ref. Range 05/12/2021 12:33 Hep C Antibody IA Latest Ref Range: Nega tive Negative Hep B Surf Ab Quant Latest Ref Range: <1 0.00 mIU/mL <3.10 Hep B Surface Ag Latest Ref Range: Negat (more content not included)... 09-18-2021 Instructions Asia Calderón MD - 2021 11:49 AM EDT [facility] - increase pred 5 mg till next visit - increase Arava 20 mg daily - Lab in 1 month BONE MINERAL DENSITY PATIENT INSTRUCTION S = Bone mineral density testing measures the amount of calcium in certain parts of your bones. This information determines how strong your bones are. The test is used to detect osteoporosis, a disease in [facility] the bone's mineral cont ent and density are low, increasing a person's risk of fractures. The lumbar spine (lower back) and the hip are the skeletal sites usually examined. For the test, remember that: 1. You cannot take this test if you are . 2. Eat a normal diet on the day of the t est. 3. Take your medications as you normally would. 4. DO NOT take calcium suppl ements (such as Tums) for 24 hours before the test. 5. On the day of the test, leave valuabl es (jewelry or credit cards) at home. 6. The test should be perfor med prior to oral, rectal or IV contrast studies, or at least 7 days after any of these studies. For the test, you may be ask ed to wear a hospital gown. You will lie on your back, on a padded table, in a comfortable position. Generally, you can resume your usual activities immediately. documented in this encounter 09-18-2021 History of Formatting of this note is different f rom the original. [facility] Present illness Narrative RHEUMATOLOGY PROGRESS NOTE Patient is here for a follow up visit fo r Patient presents with: Joint Pain HPI: Viviana Santana is a 66 year old femal e who presents joint pain Pain in toes - tingling, num bness, ankles, knees., shoulders. Noticed bumps in elbows. Hurts. Sees pain anesthesia. - She is not a candidate for spinal injections or surgery at this time. Brief Rheumatological history - Not on Arava 10 mg daily. More joint maylin n since not on pred. Diagnosed with RA 2017. She was admitted at [facility] - double pneumonia, RA. She was seeing rheum but she had insurance conflicts. She was prescribed prednisone, gabapentin, Arava. She presented with toe tingling, knee, fournier nd swelling, elbows, shoulders, neck. She was once diagnosed with anemia. not much improvement with Arava. Ran out of Arava few months ago. I am in pain all the time . Only steroids help. PCP sent pred She had shoulder injections. PAF, COPD, ILD, DM2, polyneuropathy. She follows with pulm in [place]. RA, chronic steroids, adrenal insuff Family h/o autoimmune disease - father w ith psoriasis Smoking - ex smoker quit 2010 Interval Review of Systems CONSTITUTIONAL: Recent Weight change: No Fever: No EYES: Dryness in nose: No Dryness of mouth: No Oral ulcers: No CARDIOVASCULAR: Pain in chest: No RESPIRATORY: Shortness of breath: No Cough: No GASTROINTESTINAL: Nausea: No Vomiting: No Changes in bowel movements: No Jaundice: No Heartburn: No MUSCULOSKELETAL: Per HPI INTEGUMENTARY: Rash: No HEMATOLOGIC/LYMPHATIC: Anemia: No NEUROLOGICAL SYSTEM: Headaches: No Sensitivity or pain of hands and/or feet : No PSYCHIATRIC: Anxiety: No Poor sleep: No PAST MEDICAL HISTORY Diagnosis Date Anemia, unspecified Asthma Atrial fibrillation (HCC) 04/26/2017 Cardiac disease 2020 pt does not know other than she has hea rt problems Chronic bronchitis (HCC) COPD (chronic obstructive pulmonary dis ease) (HCC) Chronic bronchitis by history. COVID-19 vaccine series completed 07-27-2020 2nd dose Pfizer Hyperglycemia 12/25/2016 Hyperthyroidism 05/10/2017 [place] Rheumatoid arthritis (HCC) Leflunomide. Dayanna Silva MD. 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 Leflunomide, Dayanna Silva MD PAST SURGICAL HISTORY Procedure Laterality Date COLONOSCOPY FLX DX W/COLLJ SPEC WHEN PF RMD 10/09/2019 Colonoscopy ESOPHAGOGASTRODUODENOSCOPY TRANSORAL DI AGNOSTIC 10/09/2019 EGD LIG/TRNSXJ FLP TUBE ABDL/VAG APPR UNI/B I XCAPSL CTRC RMVL INSJ IO LENS PROSTH W/ O ECP Right 12/15/2017 Cataract Extraction with PC IOL XCAPSL CTRC RMVL INSJ IO LENS PROSTH W/ O ECP Left 01/05/2018 Cataract Extraction with PC IOL History Review: I have revie wed and modified as needed, the following during this visit: Allergies, Past Medical History, Past Surgical History, Past Family History, Past Social History. BP 148/88 Pulse 82 Temp (!) 35.7 C (96.2 F) (Temporal) Resp 20 Ht 160 cm (5' 3 ) Wt 81.2 kg (179 lb) LMP (LMP Unknown) BMI 31.71 kg/m Physical Exam GENERAL: Well appearing, ty rt, comfortable, in no acute distress, well- hydrated, well nourished. HEENT: Negative for external ears normal. Canals are clear. Both TMs visualized and are normal. Eye Exam normal. External nose normal, no nasal ulcer or throat ulcer. NECK: NECK Supple, no adenopathy; thyroi d symmetric, normal size, no bruits CARDIAC: regular rate and rh ythm, No murmur asculated. and Equal peripheral pulses RESPIRATORY: Lungs clear to auscultation . No wheezing, rhonchi, rales VASCULAR: RRR without murmur, gallop, or rubs. No ectopy. NEURO: Motor and sensory exam normal MOTOR: Normal; including tone, gait, str essed gait, power and coordination. SKIN: Negative for alopecia, skin rash, malar rash, skin lesion, skin ulcer, pits, thickening, color changes, telangiectasias, nail changes, nail ridging, nail pitting, onycholysis MUSCULOSKELETAL: DIPS: Normal PIPS: Abnormal, mild synovitis all PIPs bl MCPs: Abnormal, synovitis MCP 2,3 left Wrists: Normal Elbows: Normal Shoulders: Normal C-Spine: Normal Hips: Normal Knees: Abnormal, effusion bl, warm, tend er Ankles: Normal MTPs / Toes: Normal Arches: Normal Lab Results: Glucose 103 09/09/2021 ALT 6 09/09/2021 WBC 9.48 09/09/2021 Hemoglobin 11.5 09/09/2021 Platelet Count 368 09/09/2021 WSR 56 12/23/2016 CRP 5.2 12/23/2016 Serology: Radiology: 2017 - ARISTEO 1:160, RF 123 Results for VIVIANA SANTANA ( ) as of 06/10/2021 09:04 Ref. Range 05/12/2021 12:33 Hep C Antibody IA Latest Ref Range: Nega tive Negative Hep B Surf Ab Quant Latest Ref Range: <1 0.00 mIU/mL <3.10 Hep B Surface Ag Latest Ref Range: Negat guy Negative Hep B Core Ab, Total Latest Ref Range: N EGAT^Negative Negative Rheumatoid Factor Latest Ref Range: <16 IU/mL 441 (H) CCP Antibody, IgG Latest Ref Range: <20 Units >250 (H) Vitamin D 25 Hydroxy Latest Ref Range: 3 0.0 - 100.0 ng/mL 10.4 (L) IMPRESSION: Degenerative changes in the cervical spi ne as described without acute osseous findings. No evidence of inflamm atory arthropathy. Degenerative changes bilateral hands pre dominantly in the wrists. No evidence of inflammatory arthropathy. Degenerative changes in the lumbar spine as described without acute osseous findings. No evidence of inflam matory arthropathy. No acute osseous findings SI joints. No evidence of inflammatory no significant degenerative arthropathy. No acute osseous findings bilateral knee s. Minimal osteoarthritis bilaterally. No evidence of inflammatory arthropathy. No acute osseous findings bilateral feet . No evidence of inflammatory arthropathy. Hallux valgus and digital c ontractures bilaterally. 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 Patient also has COPD, diabetes and frequent exposure to steroids. Patient has multiple joint pain with positive response only to steroids. Concern for underlying osteoarthritis and steroid dependence. Positive rheumatoid factor is commonly seen in patients with history of smoking. 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 Per th e patient there is no concern for rheumatoid arthritis related interstitial lung disease. Active RA Advised to see pain management. Patient Instructions - increase pred 5 mg till next visit - increase Arava 20 mg daily - Lab in 1 month BONE MINERAL DENSITY PATIENT INSTRUCTION S = Bone mineral density testing measures the amount of calcium in certain parts of your bones. This information determines how strong your bones are. The test is used to detect osteoporosis, a disease in w hich the bone's mineral cont ent and density are low, increasing a person's risk of fractures. The lumbar spine (lower back) and the hip are the skeletal sites usually examined. For the test, remember that: 1. You cannot take this test if you are . 2. Eat a normal diet on the day of the t est. 3. Take your medications as you normally would. 4. DO NOT take calcium suppl ements (such as Tums) for 24 hours before the test. 5. On the day of the test, leave valuabl es (jewelry or credit cards) at home. 6. The test should be perfor med prior to oral, rectal or IV contrast studies, or at least 7 days after any of these studies. For the test, you may be ask ed to wear a hospital gown. You will lie on your back, on a padded table, in a comfortable position. Generally, you can resume your usual activities immediately. Office Visit on 09/18/21 DXA-AXIAL SKELETON CBC + DIFF COMP METABOLIC PANEL FERRITIN BLD IRON + TIBC VITAMIN D 25 HYDROXY CONSULT TO PAIN MGT Medication orders placed this encounter leflunomide (ARAVA) 20 mg tablet Sig: Take 1 tablet by mouth once daily. Dispense: 30 tablet Refill: 2 predniSONE (DELTASONE) 5 mg tablet Sig: Take 1 tablet by mouth once daily. Dispense: 40 tablet Refill: 0 No follow-ups on file. Asia Calderón MD documented in this encounter 09-11-2021 Miscellaneous Formatting of this note is d ifferent from the original. [facility] Notes Patient has been identified by name and date of : Yes Pending Prescriptions Disp Refills GABAPENTIN 100 MG CAPSULE 120 capsule 5 Sig: Take 2 capsules by mouth twice mohsen y for 180 days. UNIQUE: No SUHA-06/19/21 Labs-09/09/21 NOV-09/23/21 med filled 02/20/21 ends 09/08/21 RX INSTRUCTIONS: Patient aware RX will be sent to pharmac y. No need to notify patient. Inessa Srinivasan documented in this encounter 09-08-2021 Note HNO ID: [id number] [facility] Author: DO Carlos Gomez nd Service: ? Author Type: Physician Type: Progress Notes Filed: 09/08/2021 3:26 PM Note Text: [facility] [place] Sanjiv Sprague Department of Cardiovascular Medicine SECTION OF REGIONAL CARDIOLOGY 09/08/2021 SUHA: 04/01/21 Viviana Santana is a 66 year old female wit h a history shortness of breath, palpitations and atrial fibrillation who is here today for follow up. HPI: She is doing well since last visit with no cardiac complaints. She continues with pulmonary challenges and has O2, 3L ATC. She reports chronic dyspnea on exertion with mild efforts primarily related to her CILD. Denies chest pain, orthopnea, PND, palpitations, lightheadedness, dizziness, syncope, or edema. Patient denies any regular aerobic exercise. Prior history: 04/01/20 She has been doing well since last visit other than she was admitted in January 2020 with pneumonia and respirat ory failure again. She did got to [facility] for pneu maonharia admit in January 2019: Preadmission evaluation: SOB and cough x 2 days. No fever. had URI. Which facility: [facility] Dates of visit: !-02/02/19 Primary Diagnosis/es: MSSA, Serratia marcescans pneumonia Chronic hypoxic respiratory failure COPD Secondary: Chronic prednisone Hyperthyroidism ILD Multiple lung nodules CESAR Chronic atrial fibrillation Pre-diabetes RA Chronic immunosuppressant drug therapy Type 2 DM Testing done: resp cultures positive as above sensitiv e to levaquin 01/30/19 WBC 19.6 hgb 10.6 chems WNL exc ept alb 2.7, glob 5.2 02/01/19 WBC 13.1 hgb 8.8 RDW WNL. 01/30/19 ABG 7.48-31.8-70--23.7-95% Negative legionella, Atrep Pneum, Resp v irus panel Treatment given/Hospital course: IV ATB, O2. Improved. D/C in stable condition with prednisone 40mg daily and levaquin 750mg x 1 week Current symptoms: improved. Finished ant ibiotics. Feels back to baseline. Saw Dr. Sofia and started on Gabapenti n 100mg TID At prior visit did not start Ivabradine due to cost. Patient assistance information was printed off for her at [facility] visit. She did not send in the paperwork because she's had significant life stressors over the past month. Her son is in rehab for a drug ad diction, and this has consumed the majority of her time. She was admitted [facility] in April 2017 with sepsis and pneumonia and acute resp iratory failure requiring ventilation. During her hospital admissi on she was noted to be in atrial fibrillation with rapid ventricular resp onse. ?Her heart rate was controlled with beta blockers. ?She sravani es any prior history of atrial fibrillation. ?She was found to have inf luenza as well. ?During her hospitalization she was noted to have a very low TSH at 0.02 and elevated T4 with 1.74. ?Her thyroid scan however was not conclusive for hypothyroidism. ?She has known long-milagros ding severe interstitial lung disease and bronchiectasis. ?She follows with pulmonary at the [facility] now. ?There was a note that they increased her metoprolol to 50 twice a day of long acting in the hospit al however she was only taking 25 mg daily at this time. ?Her heart rate w as 121 and sinus tachycardia. ?She is only able to walk a minimal amount in stores before she is short of breath. ?She is on home oxygen therapy. ?She knows she did have a sensation rapid heartbeat during atrial fibrillation and has not had that sensation since. Patient was seen in the office on 019 where she was noted to be significantly tachycardic in the 120's. She has a long-standing history of severe interstitial lung disease and bro nchiectasis. She was diagnosed with inappropriate sinus tachycardia, an d has been maintained on Toprol-XL 50mg daily. She was started on Ivabradin e 2.5mg BID for better rate control. She did not start this medicati on because it was $95 a month and she cannot afford this. PAST MEDICAL HISTORY Diagnosis Date - Anemia, unspecified - Asthma - Atrial fibrillation (HCC) 04/26/2017 - Cardiac disease 2020 pt does not know other than she has hea rt problems - Chronic bronchitis ([facility]) - COPD (chronic obstructive pulmonary di sease) ([facility]) Chronic bronchitis by history. - COVID-19 vaccine series completed 07-27-2020 2nd dose Pfizer - Hyperglycemia 12/25/2016 - Hyperthyroidism 05/10/2017 [place] - Rheumatoid arthritis ([facility]) Leflunomide. Dayanna Silva MD. 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 ([facility]) 12/2016 Leflunomide, Dayanna Silva MD PAST SURGICAL HISTORY Procedure Laterality Date - COLONOSCOPY FLX DX W/COLLJ SPEC WHEN P FRMD 10/09/2019 Colonoscopy - ESOPHAGOGASTRODUODENOSCOPY TRANSORAL D IAGNOSTIC 10/09/2019 EGD - LIG/TRNSXJ FLP TUBE ABDL/VAG APPR UNI/ BI - XCAPSL CTRC RMVL INSJ IO LENS PROSTH W /O ECP Right 12/15/2017 Cataract Extraction with PC IOL - XCAPSL CTRC RMVL INSJ IO LENS PROSTH W /O (more content not included)... 09-08-2021 History of Formatting of this note is different f rom the original. [facility] Present illness Narrative Images from the original note were not included. [facility] [place] Sanjiv Sprague Department of Cardiovascular Medicine SECTION OF REGIONAL CARDIOLOGY 09/08/2021 SUHA: 04/01/21 Viviana Santana is a 66 year ol d female with a history shortness of breath, palpitations and atrial fibrillation who is here today for follow up. HPI: She is doing well since last visit with no cardiac complaints. She continues with pulmonary challenges and has O2, 3L ATC. She reports chronic dyspnea on exertion with mild efforts primarily related to her CILD. Denies chest pain, orthopnea, PND, palpitations, lightheadedness, dizziness, syncope, or edema. Patient denies any regular aerobic exercise. Prior history: 04/01/20 She has been doing well sinc e last visit other than she was admitted in January 2020 with pneumonia and respiratory failure again. She did got to [facility] for [facility] admit in January 2019: Preadmission evaluation: SOB and cough x 2 days. No fever. had URI. Which facility: [facility] Dates of visit: !-02/02/19 Primary Diagnosis/es: MSSA, Serratia marcescans pneumonia Chronic hypoxic respiratory failure COPD Secondary: Chronic prednisone Hyperthyroidism ILD Multiple lung nodules CESAR Chronic atrial fibrillation Pre-diabetes RA Chronic immunosuppressant drug therapy Type 2 DM Testing done: resp cultures positive as above sensitiv e to levaquin 01/30/19 WBC 19.6 hgb 10.6 chems WNL exc ept alb 2.7, glob 5.2 02/01/19 WBC 13.1 hgb 8.8 RDW WNL. 01/30/19 ABG 7.48-31.8-70--23.7-95% Negative legionella, Atrep Pneum, Resp v irus panel Treatment given/Hospital cou rse: IV ATB, O2. Improved. D/C in stable condition with prednisone 40mg daily and levaquin 750mg x 1 week Current symptoms: improved. Finished ant ibiotics. Feels back to baseline. Saw Dr. Sofia and started on Gabapenti n 100mg TID At prior visit did not start Ivabradine due to cost. Patient assistance information was printed off for her at that visit. She did not send in the paperwork because she's had significant life stressors over the past month. Her son is in rehab for a drug addiction, and this has consumed the majority of her time. She was admitted [facility] in April 2017 with sepsis and pneumonia and acute respi ratory failure requiring pierce tilation. During her hospital admission she was noted to be in atrial fibrillation with rapid ventricular response. Her heart rate was controlled with beta blockers. She sravani es any prior history of atri al fibrillation. She was found to have influenza as well. During her hospitalization she was noted to have a very low TSH at 0.02 and elevated T4 with 1.74. Her thyroid scan however was not conclusive f or hypothyroidism. She has known long-standing severe interstitial lung disease and bronchiectasis. She follows with pulmonary at the [facility] now. There was a note t hat they increased her metop rolol to 50 twice a day of long acting in the hospital however she was only taking 25 mg daily at this time. Her heart rate was 121 and sinus tachycardia. She is only able to walk a minimal amount in [facility] before she is short of breath. She is on home oxygen therapy. She knows she did have a sensation rapid heartbeat during atrial fibrillation and has not had that sensation since. Patient was seen in the offi ce on 05/06/2018 where she was noted to be significantly tachycardic in the 120's. She has a long-standing history of severe interstitial lung disease and bronchiectasis. She was diagnosed with inappropr iate sinus tachycardia, and has been maintained on Toprol-XL 50mg daily. She was started on Ivabradine 2.5mg BID for better rate control. She did not start this medication be cause it was $95 a month and she cannot afford this. PAST MEDICAL HISTORY Diagnosis Date Anemia, unspecified Asthma Atrial fibrillation (HCC) 04/26/2017 Cardiac disease 2020 pt does not know other than she has hea rt problems Chronic bronchitis (HCC) COPD (chronic obstructive pulmonary dis ease) (HCC) Chronic bronchitis by history. COVID-19 vaccine series completed 07-27-2020 2nd dose Pfizer Hyperglycemia 12/25/2016 Hyperthyroidism 05/10/2017 [place] Rheumatoid arthritis ([facility]) Leflunomide. Dayanna Silva MD. 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 Dayanna Richards MD PAST SURGICAL HISTORY Procedure Laterality Date COLONOSCOPY FLX DX W/COLLJ SPEC WHEN PF RMD 10/09/2019 Colonoscopy ESOPHAGOGASTRODUODENOSCOPY TRANSORAL DI AGNOSTIC 10/09/2019 EGD LIG/TRNSXJ FLP TUBE ABDL/VAG APPR UNI/B I XCAPSL CTRC RMVL INSJ IO LENS PROSTH W/ O ECP Right 12/15/2017 Cataract Extraction with PC IOL XCAPSL CTRC RMVL INSJ IO LENS PROSTH W/ O ECP Left 01/05/2018 Cataract Extraction with PC IOL FAMILY HISTORY Problem Relation Age of Onset Ischemic Heart Disease Father Cataract Father other (COPD, smoker) Father Cataract Mother other (COPD, smoker) Mother other (liver transplant) Sister Etiology of liver disease unknown to elvin almodovar. Heart Sister SOCIAL HISTORY: Social History Tobacco Use Smoking status: Former Smoker Packs/day: 0.50 Years: 30.00 Pack years: 15.00 Start date: 01/01/1970 Quit date: 09/09/2010 Years since quittin.0 Smokeless tobacco: Never Used Vaping Use Vaping Use: Never used Substance Use Topics Alcohol use: No Drug use: No ALLERGIES: [place] T[place] CURRENT MEDICATIONS: Current Outpatient Medications Medication Sig predniSONE (DELTASONE) 1 mg tablet Take 1 tablet by mouth once daily. rivaroxaban (XARELTO) 20 mg tablet Take 1 tablet by mouth daily with dinner. ipratropium-albuterol (DUON EB) 0.5 mg-3 mg(2.5 mg base)/3 mL nebu Inhale 3 mL as instructed four times daily. guaiFENesin (MUCINEX) 600 mg 12 hr tabl et Take 1 tablet by mouth twice daily. metFORMIN ER (GLUCOPHAGE XR ) 500 mg 24 hr tablet Take 1 tablet by mouth once daily. leflunomide (ARAVA) 10 mg tablet Take 1 tablet by mouth once daily. ergocalciferol 50,000 unit capsule (VITAMIN D2, DRISDOL) Take 1 capsule by mouth one time a week. ondansetron (ZOFRAN) 4 mg t ablet Take 1 tablet by mouth every 6 hours as needed for nausea/vomiting. ferrous gluconate 324 mg (3 7.5 mg iron) tablet Take 1 tablet by mouth twice daily with meals. gabapentin (NEURONTIN) 400 mg capsule Take 1 capsule by mouth three times daily for 180 days. (Patient taking differently: Take 400 mg by mouth daily at bedtime. ) Miscellaneous Medical Suppl y Portable oxygen concentrator 3l/min at all times. gabapentin (NEURONTIN) 100 mg capsule Take 2 capsules by mouth twice daily for 180 days. metoprolol succinate ER (TOPROL XL) 100 mg Take 1 tablet by mouth once daily. omeprazole (PRILOSEC) 40 mg capsule Shelley e 1 capsule by mouth once daily. verapamil (CALAN, ISOPTIN) 80 mg tablet Take 0.5 tablets by mouth every 8 hours. COMPOUNDED PRESCRIPTION Provide nebuliz er accessory kit. DME: [facility]. COMPOUNDED PRESCRIPTION Accessories for nebulizer J43.1 Panlobular emphysema (HCC) (primar y encounter diagnosis) J84.9 ILD (interstitial lung disease) (H CC) COMPOUNDED PRESCRIPTION #1 Continuous F low Stationary O2 Concentrator Sig: O2 2l/min liter flow Patient is to keep portablel concentrato r as well J43.2 Centrilobular emphysema (HCC) J84.9 ILD (interstitial lung disease) (H CC) J96.11 Chronic respiratory failure with hypoxia (HCC) COMPOUNDED PRESCRIPTION Face mask: hypoxia COMPOUNDED PRESCRIPTION Por table oxygen concentrator, setting 2 at rest, setting 3 with ambulation. (Patient taking differently: Portable oxygen concentrator, setting 2 at rest, setting 3 with ambulation. Is now taking 3 liters continuously ) COMPOUNDED PRESCRIPTION Tamera luate patient for portable pulse dose O2 concentrator. COMPOUNDED PRESCRIPTION Portable oxygen concentrator. acetaminophen (TYLENOL EXTR A STRENGTH) 500 mg tablet Take 1,000 mg by mouth every 6 hours as needed. predniSONE (DELTASONE) 2.5 mg tablet Take 1 tablet by mouth once daily. (Patient not taking: Reported on 09/08/2021 ) Current Facility-Administered Medication s Medication Dose Route Frequency perflutren lipid microspher es 1.3 mL in NaCl (PF) 0.9% 10 mL injection (DEFINITY) INTRAVENOUS DIRECTED PRN sodium chloride 0.9 % (flus h) 10 mL (BD POSIFLUSH) 10 mL INTRAVENOUS DIRECTED PRN ROS: Card: See present history. Pulm:+ PEREZ Gastro: No nausea, vomiting, or diarrhea GenUr: No history of dysuria, frequency or incontinence Endo: Negative for cold or heat intolera nce, polyuria or polydipsia. Neuro: no focal weakness, fo jaciel sensory loss, headache, visual changes, seizure activity, ataxia, speech/language loss. Musculoskeletal: Negative for joint or m uscle pain, back pain, or swelling. Infect: no fevers, chills, rigors or nig ht sweats. Skin: Negative for lesions, rash, and it isiah. Heme: Negative for prolonged bleeding, b ruising easily or swollen nodes. The remainder of the review of systems i s negative. PHYSICAL EXAMINATION: BP 102/58 Pulse 86 Ht 16 2.6 cm (5' 4 ) Wt 82.4 kg (181 lb 11.2 oz) SpO2 94% BMI 31.19 kg/m Last 3 Encounter BP Readings: Date: BP: 06/20/2018 136/78 05/20/2018 110/70 05/06/2018 100/60 Last 3 Encounter Pulse Readings: Date: Pulse: 06/20/2018 77 06/20/2018 77 05/20/2018 105 Last 3 Encounter Wt Readi ngs: Date: Wt: 06/20/2018 71.7 kg (158 lb) 06/20/2018 71.7 kg (158 lb) 05/20/2018 71.2 kg (157 lb) GENERAL: alert cooperative, pleasant oriented x 3 (self, time and place) in no acute distress SKIN: warm, dry, no rash. NECK: supple, no palpable masses, no JVD , carotids well felt, no bruits. CARD: [place] palpable in the 5 th intercostal space mid clavicular line, normal S1 and S2, no murmurs, gallops, or rubs. RESP: Normal respiratory eff orts, lungs clear to auscultation bilaterally with dry crackles noted. ABDOMEN: Soft, no tenderness , rigidity, or masses. No palpable liver or spleen. Normal bowel sounds, no bruits. NEURO: intact cranial nerves II through XII, no motor or sensory deficits in all 4 extremities. EXTREMITIES: No cyanosis, clubbing, or e james. Peripheral pulses well felt. LABS: Glucose (mg/dL) Date Value 05/12/2021 89 09/19/2020 86 Potassium (mmol/L) Date Value 05/12/2021 3.9 09/19/2020 4.0 Sodium (mmol/L) Date Value 05/12/2021 142 09/19/2020 140 Chloride (mmol/L) Date Value 05/12/2021 105 09/19/2020 103 CO2 (mmol/L) Date Value 05/12/2021 27 09/19/2020 26 Creatinine (mg/dL) Date Value 05/12/2021 0.78 09/19/2020 0.76 BUN (mg/dL) Date Value 05/12/2021 13 09/19/2020 16 Anion Gap (mmol/L) Date Value 05/12/2021 10 09/19/2020 11 Calcium (mg/dL) Date Value 09/19/2020 8.6 Calcium, Total (mg/dL) Date Value 05/12/2021 8.9 Protein, Total (g/dL) Date Value 05/12/2021 6.5 06/17/2020 7.0 Albumin (g/dL) Date Value 05/12/2021 3.7 06/17/2020 3.8 Bilirubin, Total (mg/dL) Date Value 05/12/2021 0.2 06/17/2020 0.2 Alkaline Phosphatase (U/L) Date Value 05/12/2021 98 06/17/2020 97 AST (U/L) Date Value 05/12/2021 12 06/17/2020 16 ALT (U/L) Date Value 05/12/2021 6 06/17/2020 7 Hemoglobin (g/dL) Date Value 05/12/2021 11.4 02/13/2021 12.9 Hematocrit (%) Date Value 05/12/2021 39.7 02/13/2021 42.8 WBC (k/uL) Date Value 05/12/2021 15.43 02/13/2021 13.06 Cholesterol, Total (mg/dL) Date Value 06/17/2020 169 HDL Cholesterol (mg/dL) Date Value 06/17/2020 72 LDL Cholesterol (mg/dL) Date Value 06/17/2020 55 Triglyceride (mg/dL) Date Value 06/17/2020 212 CARDIAC TESTING: EKG 09/30/20 NSR 84 bpm 48Hr Holter monitor (08/19/2017): IMPRESSIONS AND FINDINGS: - Sinus rhythm, frequent sinus tachycard ia with 4% over 120 BPM. - Maximum heart rate: 158 BPM at 17:42, 08/19/17. - Rare ventricular ectopy as singles, co uplets, triplet. - Frequent (5%) supraventric ular ectopy as singles, couplets, bigmeinal and trigmeinal cycles, 204 non-sustained atrial/supraventricular tachycardia runs; some atrial tachycardia with block. Longest run : 45 beats/181 BPM at 14:00, 08/19/17. Fastest run: 212 BPM/4 beats at 16:48, 08/19/17. - Patient denies symptoms, per diary. Echocardiogram (08/27/2017): CONCLUSIONS: - Technically difficult exam due to COPD . - Exam indication: Nonsustained atrial f ibrillation - The left ventricle is smal l. Left ventricular systolic function is normal. EF = 63 5% (2D biplane) Left ventricular diastolic function was not evaluated due to mitral E/A fusion. - The right ventricle is nor mal in size. Right ventricular systolic function is normal. - Definity contrast not available for us e, required staff not present. - The patient has not had a prior CC ech ocardiographic exam for comparison. ASSESSMENT/PLAN: Paroxysmal atrial fibrillation - Precipitated by acute hypo xemic respiratory failure with sepsis and pneumonia as well as hyperthyroidism April 2017 - Anticoagulated with rivaroxaban 20mg d aily - Continue rate control with metoprolol Inappropriate sinus tachycardia - Improved - HR > 120, 4% of time on 48 hr holter - Possible contribution from beta agonis ts for pulmonary disease - Unable to start Ivabradine 2.5mg BID d ue to cost - Improved on metoprolol (NSR 78 bpm) ILD (interstitial lung disease) - Increased rate control for better oxyg enation - Follows with pulmonology Bronchiectasis without complication Hyperthyroidism - TSH 1.16, 11/04/17 Conclusion: She is doing better with rat e control of pAF and Sinus Tachycardia thought to be due to beta agonists. She was unable to afford the Ivabradine ($95 a month) but did not send in the patient assistance pa perwork that was given to he r at prior visit. Fortunately, her heart rate is much improved < 100 now on low dose beta ruby. HR today is 86 bpm. Will follow periodically and continue me toprolol dose for now. Thank you for allowing me th e privilege of participating in the care of your patient. Please do not hesitate to contact me if there are any questions. Yovani Piedra DO, F ACC, FCCP, FACOI documented in this encounter 08-21-2021 Miscellaneous Formatting of this note is d ifferent from the original. [facility] Notes Patient has been identified by name and date of : Yes Pending Prescriptions Disp Refills RIVAROXABAN 20 MG TABLET 90 tablet 3 Sig: Take 1 tablet by mouth daily with d inner. UNIQUE: No SUHA-06/19/21 Labs-05/12/21 NOV-none med filled 09/17/20 RX INSTRUCTIONS: She is call ing because she used her last refill; still has medication until September. Patient aware RX will be sent to pharmac y. No need to notify patient. Nicolle Auguste Pss documented in this encounter 08-07-2021 Note HNO ID: [id number] [facility] Author: ANDREA Cao Service: ? Author Type: Physician Hotel Assistant Manager Type: Progress Notes Filed: 08/07/2021 3:01 PM Note Text: [facility] [place], 08/07/2021: Name: Viviana Santana : 1955 ? The patient is here today by herself. ? HPI: Viviana Santana is a 66 yo female with pmh significant for RA, A Fib on Xarelto, hyperthyroidism, bronchiectasis and COPD/asthma on home O2. Former smoker, quit 2010. 15 pack years. The patient is here for follow up of PHYSICAL FITNESS TRAINER D. Since the last Pulmonary Clinic visit , the patient has not required ED care for exacerbation. There has been no hospital admission for exacerbation. Claims to be consistently compliant with prescribed maintenance Rx Duonebs four times daily with budesonide twice d aily. Taking Mucinex twice daily. Daily cough, primarily in the morning. S eems to be worse with seasonal allergies. Clear to [place] sputum. No hemo ptysis. Frequent wheezing. No dyspnea at rest. Exertional dyspnea s table. It's terrible, but it hasn't gotten worse . No lower extremity edema. Currently wearing 3 LPM supplemental oxy gen continuously. DME: [facility] PMH: Updated with patient today. [facility]: Updated with patient today. [facility]: Updated with patient today. IMMUNIZATIONS Prevnar 13 - 03/02/2019 Pneumovax 23 - 01/19/2017, 03/10/2011 Influenza - 02/06/2021 COVID-19 - 04/04/2021, 07/27/2020, 07/06 ROS: See HPI. Allergies were reviewed and updated, and medications were reconciled with the patient. PHYSICAL EXAMINATION: BP 131/77 (BP Site: Right Arm, BP Positi on: Sitting, BP Cuff Size: Regular Adult) Pulse 93 Wt 84.4 kg (186 lb) SpO2 96% BMI 31.93 kg/m? Gen: No acute distress. Cooperative with examination. ENT: Oral hygeine and dentition good. Ph arynx clear. No halitosis. Resp: No stridor, accessory respiratory muscle use, supra-sternal or intercostal retractions. No wheezes. Bib asilar crackles bilaterally. CV: Regular rythm. Heart tones normal. R adial pulses normal. Abd: Non distended. MSK: No kyphoscoliosis. Ext: Warm and well perfused. No clubbing , cyanosis, edema. Skin: No rash, ecchymoses. Neuro: Mental status normal. Affect norm al. No tremor. DATA REVIEW: DATE: 08/07/2021 07/03/2020 03/08/2020 0 11/07/18 09/19/18 06/20/18 FVC 1.74, 57% 1.35, 44% 1.31,?42% 1.61, 49% 1.34, 40% 1.57, 48% FEV1 1.15, 48% 1.04, 43% 0.99,?40% 1.09, 43% 0.94, 37% 1.02, 40% FEV1/FVC 0.66 0.77 0.75 0.68 0.70 0.65 TLC xx xx xx ?xx xx xx DLCO 6.77 xx xx ?xx xx xx Six minute walk, 08/07/2021 Six Minute Walk Test for This Encounter ? Oxygen Device Liters FIO2 SpO2% HR Act ivity Feet Speed (MPH) Flag ? R/A 89 97 Resting ? NC 3 97 95 Resting ? NC 3 89 112 Six Minute Walk 515 1 ? NC 3 92 109 Recovery 1 minute post ? NC 3 98 94 Recovery 2 minute post ? NC 3 98 91 Recovery 3 minute post ? ASSESSMENT/PLAN: 1. Stage 3 severe COPD by GOLD classific ation ([facility]) - ICD9: 496, ICD10: J44.9 (primary diagnosis) Symptomatically stable with increased FE V1 today. Continue current maintenance therapy wit h Duonebs four times daily and budesonide added twice daily (first and last treatment of the day). Up to date an annual influenza, pneumoco ccal and Covid vaccines. Continue with supplemental oxygen as dir ected. - BUDESONIDE 0.5 MG/2 ML SUSPENSION FOR NEBULIZATION - IPRATROPIUM 0.5 MG-ALBUTEROL 3 MG (2.5 MG BASE)/3 ML NEBULIZATION SOLN 2. Bronchiectasis without complication ( [facility]) - ICD9: 494.0, ICD10: J47.9 Continue Mucinex twice daily. 3. ILD (interstitial lung disease) ([facility]) - ICD9: 515, ICD10: J84.9 4. Chronic respiratory failure with hypo jensne ([facility]) - ICD9: 518.83, 799.02, ICD10: J96.11 See #1. I addressed the questions of the patient , and she expressed understanding and acceptance of my answers. Jacquelin Patel PA-C 08-07-2021 Note HNO ID: [id number] [facility] Author: Aminta Michaels RRT [place] Service: ? Author Type: Respiratory Therapist Type: Procedures Filed: 08/07/2021 1:50 PM Note Text: Attestation signed by Junior pedroza MD at 08/07/2021 5:42 PM The patient completed the six minute wal k test with 1 stop. Total Duration Of The Stops (seconds): 90. The patient req uired Nasal Cannula Liters: 3 to complete the test. The distance the patient walked in six m inutes is extremely reduced. The six minute walk distance today demon strates a clinically significant decrease (292 feet decrease), when shanika red to the historically highest six minute walk distance from a test dated . Today's distance represents a 292 feet d ecrease compared to the last visit on 07/20/17. The patient perceived their dyspnea duri ng the six minute walk test to be 9-Very, very severe on the modified Akbar scale. The patient perceived their fatigue duri ng the six minute walk test to be 9-Very, very severe on the modified Akbar scale. Baseline mild hypoxemia that does not re verse with 3 L supplemental oxygen. I have reviewed the findings and made ap propriate revisions as needed. SIGNATURE: Junior Mathew MD PATIENT NAME: Viviana Santana DATE: August 07, 2021 TIME: 5:41 PM RESPIRATORY THERAPY SIX MINUTE WALK TEST OXIMETRY REPORT Six Minute Walk Test for This Encounter Oxygen Device Liters FIO2 SpO2% HR Activ ity Feet Speed (MPH) Flag R/A 89 97 Resting NC 3 97 95 Resting NC 3 89 112 Six Minute Walk 515 1 NC 3 92 109 Recovery 1 minute post NC 3 98 94 Recovery 2 minute post NC 3 98 91 Recovery 3 minute post General Information Height Weight Smoking Status Pulse Oxime try Site Oximeter Pre Blood Pressure Post Blood Pressure Total Time Spent (min) 162.6 cm (5' 4 ) 84.4 kg (186 lb) Ex-smo ker Forehead Masimo 119/65 133/72 45 _ Distance Walked (meters) Distance Walked (feet) Female Predicted Walk Distance (feet) Female Lower Limit of No rmal (feet) Female % Predicted Total Duration Of The Stops (seconds) 156.97 515 1466.21 1010.21 35.1 90 _ Lowest SpO2 During 6 Minute Walk Pre-Bor g Dyspnea Rating Pre-Akbar Fatigue Rating Post Akbar Dyspnea Rating Post Bor g Fatigue Rating O2 Supply Carrier Walking Assistance/Device 86 % 0 0 9 9 3 Wheel Walker ? Six Minute Walk Trend (Previous Encounte rs) Test Date Distance Walked (feet) Oxygen Device Liters FIO2 SpO2% Akbar Dyspnea Rating Akbar Fatigue Rating 07/20/2017 807 NC 2 91 3 0 SIGNATURE: Aminta Michaels RRT PATIENT N DONA: Viviana Santana DATE: August 07, 2021 TIME: 1:49 PM 08-07-2021 Note HNO ID: [id number] [facility] Author: Aminta Michaels RRT [place] Service: ? Author Type: Respiratory Therapist Type: Progress Notes Filed: 08/07/2021 1:50 PM Note Text: PULM FUNCTION SMARTBLOCK: Provider: Jacquelin Patel PA-C Assisting Tech: Aminta Michaels RRT Spirometry: 1 DLCO: 1 6 MW: 1 System: [id number] 08-07-2021 History of Formatting of this note is different f rom the original. [facility] Present illness Narrative [facility] Respiratory Insti tute, 08/07/2021: Name: Viviana Santana : 1955 The patient is here today by herself. HPI: Viviana Santana is a 66 yo fema le with pmh significant for RA, A Fib on Xarelto, hyperthyroidism, bronchiectasis and COPD/asthma on home O2. Former smoker, quit 2010. 15 pack years. The patient is here for follow up of PHYSICAL FITNESS TRAINER D. Since the last Pulmonary Cli angela visit 02/07/2020, the patient has not required ED care for exacerbation. There has been no hospital admission for exacerbation. Claims to be consistently co mpliant with prescribed maintenance Rx Duonebs four times daily with budesonide twice daily. Taking Mucinex twice daily. Daily cough, primarily in th e morning. Seems to be worse with seasonal allergies. Clear to [place] sputum. No hemoptysis. Frequent wheezing. No dyspnea at rest. Exertion al dyspnea stable. It's terrible, but it hasn't gotten worse . No lower extremity edema. Currently wearing 3 LPM supplemental oxy gen continuously. DME: [facility] PMH: Updated with patient today. [facility]: Updated with patient today. SOCH: Updated with patient today. IMMUNIZATIONS Prevnar - 03/02/2019 Pneumovax 23 - 01/19/2017, 03/10/2011 Influenza - 02/06/2021 COVID-19 - 04/04/2021, 07/27/2020, 07/06 ROS: See HPI. Allergies were reviewed and updated, and medications were reconciled with the patient. PHYSICAL EXAMINATION: BP 131/77 (BP Site: Right Ar m, BP Position: Sitting, BP Cuff Size: Regular Adult) Pulse 93 Wt 84.4 kg (186 lb) SpO2 96% BMI 31.93 kg/m Gen: No acute distress. Cooperative with examination. ENT: Oral hygeine and dentition good. Ph arynx clear. No halitosis. Resp: No stridor, accessory respiratory muscle use, supra-sternal or intercostal retractions. No wheezes. Bibasilar crackles bilaterally. CV: Regular rythm. Heart tones normal. R adial pulses normal. Abd: Non distended. MSK: No kyphoscoliosis. Ext: Warm and well perfused. No clubbing , cyanosis, edema. Skin: No rash, ecchymoses. Neuro: Mental status normal. Affect norm al. No tremor. DATA REVIEW: DATE: 08/07/2021 07/03/2020 03/08/2020 0 11/07/18 09/19/18 06/20/18 FVC 1.74, 57% 1.35, 44% 1.31, 42% 1.61, 49% 1.34, 40% 1.57, 48% FEV1 1.15, 48% 1.04, 43% 0.99, 40% 1.09, 43% 0.94, 37% 1.02, 40% FEV1/FVC 0.66 0.77 0.75 0.68 0.70 0.65 TLC xx xx xx xx xx xx DLCO 6.77 xx xx xx xx xx Six minute walk, 08/07/2021 Six Minute Walk Test for This Encounter Oxygen Device Liters FIO2 SpO2% HR Acti vity Feet Speed (MPH) Flag R/A 89 97 Resting NC 3 97 95 Resting NC 3 89 112 Six Minute Walk 515 1 NC 3 92 109 Recovery 1 minute post NC 3 98 94 Recovery 2 minute post NC 3 98 91 Recovery 3 minute post ASSESSMENT/PLAN: 1. Stage 3 severe COPD by GO LD classification (HCC) - ICD9: 496, ICD10: J44.9 (primary diagnosis) Symptomatically stable with increased FE V1 today. Continue current maintenance therapy with Duonebs four times daily and budesonide added twice daily (first and last treatment of the day). Up to date an annual influenza, pneumoco ccal and Covid vaccines. Continue with supplemental oxygen as dir ected. - BUDESONIDE 0.5 MG/2 ML SUSPENSION FOR NEBULIZATION - IPRATROPIUM 0.5 MG-ALBUTEROL 3 MG (2.5 MG BASE)/3 ML NEBULIZATION SOLN 2. Bronchiectasis without complication ( [facility]) - ICD9: 494.0, ICD10: J47.9 Continue Mucinex twice daily. 3. ILD (interstitial lung disease) ([facility]) - ICD9: 515, ICD10: J84.9 4. Chronic respiratory failu re with hypoxia ([facility]) - ICD9: 518.83, 799.02, ICD10: J96.11 See #1. I addressed the questions of the patient, and she expressed understanding and acceptance of my answers. Jacquelin Patel PA-C documented in this encounter 08-07-2021 Procedure note Associated Order(s): SIX MIN [place] WALK [facility] RESPIRATORY THERAPY SIX MINUTE WALK TEST OXIMETRY REPORT Six Minute Walk Test for This Encounter Oxygen Device Liters FIO2 SpO2% HR Activ ity Feet Speed (MPH) Flag R/A 89 97 Resting NC 3 97 95 Resting NC 3 89 112 Six Minute Walk 515 1 NC 3 92 109 Recovery 1 minute post NC 3 98 94 Recovery 2 minute post NC 3 98 91 Recovery 3 minute post General Information Height Weight Smoking Status Pulse Oximetry Site Oximeter Pre Blood Pressure Post Blood Pressure Total Time Spent (min) 162.6 cm (5' 4 ) 84.4 kg (186 lb) Ex-smo ker Forehead Masimo 119/65 133/72 45 _ Distance Walked (meters) Dis tance Walked (feet) Female Predicted Walk Distance (feet) Female Lower Limit of Normal (feet) Female % Predicted Total Duration Of The Stops (seconds) 156.97 515 1466.21 1010.21 35.1 90 _ Lowest SpO2 During 6 Minute Walk Pre-Akbar Dyspnea Rating Pre-Akbar Fatigue Rating Post Akbar Dyspnea Rating Post Akbar Fatigue Rating O2 Supply Carrier Walking Assistance/Device 86 % 0 0 9 9 3 Wheel Walker Six Minute Walk Trend (Previous Encounte rs) Test Date Distance Walked (f eet) Oxygen Device Liters FIO2 SpO2% Akbar Dyspnea Rating Akbar Fatigue Rating 07/20/2017 807 NC 2 91 3 0 SIGNATURE: Aminta Michaels, ADELSO PATIENT N DONA: Viviana Santana DATE: August 07, 2021 TIME: 1:49 PM Associated attestation - Junior Mathew MD - 08/07/2021 5:42 PM EDT The patient completed the si x minute walk test with 1 stop. Total Duration Of The Stops (seconds): 90. The patient required Nasal Cannula Liters: 3 to complete the test. The distance the patient walked in six m inutes is extremely reduced. The six minute walk distance today demonstrates a clinically significant decrease (292 feet decrease), when compared to the historically highest six minute walk distance from a test dated 07/20/17. Today's distance represents a 292 feet decrease compared to the last visit on 07/20/17. The patient perceived their dyspnea during the six minute walk test to be 9- Very, very severe on the modified Akbar scale. The patient perceived their fatigue during the six minute walk test to be 9- Very, very severe on the modified Akbar scale. Baseline mild hypoxemia that does not re verse with 3 L supplemental oxygen. I have reviewed the findings and made ap propriate revisions as needed. SIGNATURE: Junior Mathew MD PATIENT NAME: Viviana Santana DATE: August 07, 2021 TIME: 5:41 PM documented in this encounter 08-07-2021 History of Formatting of this note migh t be different from the original. [facility] Present illness Narrative PULM FUNCTION SMARTBLOCK: Provider: Jacquelin Patel PA-C Assisting Tech: Aminta Michaels RRT Spirometry: 1 DLCO: 1 6 MW: 1 System: [id number] documented in this encounter 08-04-2021 Miscellaneous Formatting of this note is d ifferent from the original. [facility] Notes Patient notified of results, verbalizes understanding of instructions. The following approved medic ation requests have been transmitted electronically. Signed Prescriptions Disp Refills predniSONE (DELTASONE) 2.5 mg tablet 30 tablet 0 Sig: Take 1 tablet by mouth once daily. Authorizing Provider: Alexa BECERRA Ma Let's try 2.5mg daily and see how she fa res. The following approved medic ation requests have been transmitted electronically. Signed Prescriptions Disp Refills predniSONE (DELTASONE) 2.5 mg tablet 30 tablet 0 Sig: Take 1 tablet by mouth once daily. Authorizing Provider: Alexa BECERRA PA-C TC to pt, notified of provider response. Routing to PCP to address when he return s to office Wednesday. Ismael Romero LPN This will be patients sixth script for prednisone this year. Since I am not familiar with patient and Rufino (PCP) will be back on Wednesday, will defer to him if he want to continue, or lower the dosage some. Sis Recinos APRN.MELISA Patient calling said she is almost out of the Prednisone 5 mg rx. She runs out on Wednesday and asking if she can have another rx? She does not have appt with Rheumatology until early September. Patient uses [facility] for her pharma cy. Patient said the prednisone does help with her pain. Please advise documented in this encounter 06-23-2021 Note HNO ID: [id number] [facility] Author: Jeramie Begum MD [place] Service: ? Author Type: Physician Type: Progress Notes Filed: 06/23/2021 11:09 AM Note Text: [facility] Date: June 23, 2021 - 10:22 AM Viviana Santana is seen in consultation req uested by Alexa Becerra for an opinion regarding diffuse body pain. My final recommendations will be communicated back to the requesting phys marion by way of shared medical record or via US mail. Chief Complaint: diffuse body pain SUBJECTIVE: Viviana Santana, is a 66 year old female wh o presents with diffuse body pain. The pain started years ago, with n o known injury or trauma. The pain onset was gradual in nature. The patient states that the current pain is persistent. Her pain is located in the d iffusely but mostly in the hands to wrist and bilateral ankle and feet. The pain is described as achy, burning, numbness, tingling, and itchy. The pain intensity is rated 10. The pain is exacerbated by pain is constant and relieved by medications - o ral steriods. Symptoms interfere with physical activity, work, walking, s leeping, sitting, bathing, driving, cooking, household cleaning, re aching for shelves and lifting. Litigation: No. Worker's Compensation: No. Prior pain treatment has included physic al therapy with partial relief, completed while admitted in hospital in August 2020. Medication: oral steroids with substantial relief, and ty lenol, NSAIDS with no relief. ALLERGIES Allergen Reactions - Ragweed Other: See Comments - Trees Other: See Comments Current Medications: Pain medications reviewed and reconciled in the medication list: Yes. Current Outpatient Medications Medication Sig - predniSONE (DELTASONE) 20 mg tablet Ta ke 2 tablets by mouth once daily for 5 days. - leflunomide (ARAVA) 10 mg tablet Take 1 tablet by mouth once daily. - ergocalciferol 50,000 unit capsule ( TAMIN D2, DRISDOL) Take 1 capsule by mouth one time a week. - ondansetron (ZOFRAN) 4 mg tablet Take 1 tablet by mouth every 6 hours as needed for nausea/vomiting. - ferrous gluconate 324 mg (37.5 mg iron ) tablet Take 1 tablet by mouth twice daily with meals. - gabapentin (NEURONTIN) 400 mg capsule Take 1 capsule by mouth three times daily for 180 days. (Patient navjot curran differently: Take 400 mg by mouth daily at bedtime. ) - Miscellaneous Medical Supply Portable oxygen concentrator 3l/min at all times. - gabapentin (NEURONTIN) 100 mg capsule Take 2 capsules by mouth twice daily for 180 days. - metFORMIN ER (GLUCOPHAGE XR) 500 mg 24 hr tablet Take 1 tablet by mouth once daily. - metoprolol succinate ER (TOPROL XL) 10 0 mg Take 1 tablet by mouth once daily. - omeprazole (PRILOSEC) 40 mg capsule Ta ke 1 capsule by mouth once daily. - verapamil (CALAN, ISOPTIN) 80 mg table t Take 0.5 tablets by mouth every 8 hours. - rivaroxaban (XARELTO) 20 mg tablet Shelley e 1 tablet by mouth daily with dinner. - ipratropium-albuterol (DUONEB) 0.5 mg- 3 mg(2.5 mg base)/3 mL nebu Inhale 3 mL as instructed four times daily. - budesonide (PULMICORT) 0.5 mg/2 mL neb ulizer solution Use 2 mL via nebulizer once daily. INHALE 2 ML BY NEB ULIZER OVER 5-15 MINUTES EVERY 12 HOURS. - COMPOUNDED PRESCRIPTION Provide nebuli zer accessory kit. DME: [facility]. - COMPOUNDED PRESCRIPTION Accessories fo r nebulizer J43.1 Panlobular emphysema (HCC) (primar y encounter diagnosis) J84.9 ILD (interstitial lung disease) ([facility]) - COMPOUNDED PRESCRIPTION #1 Continuous Flow Stationary O2 Concentrator Sig: O2 2l/min liter flow Patient is to keep portablel concentrato r as well J43.2 Centrilobular emphysema (HCC) J84.9 ILD (interstitial lung disease) ([facility]) J96.11 Chronic respiratory failure with hypoxia (HCC) - COMPOUNDED PRESCRIPTION Face mask: hypoxia - COMPOUNDED PRESCRIPTION Portable oxyge n concentrator, setting 2 at rest, setting 3 with ambulation. (Patient rissa banuelos differently: Portable oxygen concentrator, setting 2 at rest, setting 3 with ambulation. Is now taking 3 liters continuously ) - COMPOUNDED PRESCRIPTION Evaluate patie nt for portable pulse dose O2 concentrator. - COMPOUNDED PRESCRIPTION Portable oxyge n concentrator. - acetaminophen (TYLENOL EXTRA STRENGTH) 500 mg tablet Take 1,000 mg by mouth every 6 hours as needed. Current Facility-Administered Medication s Medication Dose Route Frequency - perflutren lipid microspheres 1.3 mL i n NaCl (PF) 0.9% 10 mL injection (DEFINITY) INTRAVENOUS DIRECTED PRN - sodium chloride 0.9 % (flush) 10 mL (B D POSIFLUSH) 10 mL INTRAVENOUS DIRECTED PRN PAST MEDICAL HISTORY Diagnosis Date - Anemia, unspecified - Asthma - Atrial fibrillation (HCC) 04/26/2017 - Cardiac disease 2020 pt does not know other than she has hea rt problems - Chronic bronchitis (HCC) - COPD (chronic obstructive pulmonary di sease) ([facility]) Chronic bronchitis by history. - COVID-19 vaccine series completed 07-27-2020 2nd dose Pfize (more content not included)... 06-19-2021 Note HNO ID: [id number] [facility] Author: Alexa Becerra PA-C [place] Service: ? Author Type: Physician Hotel Assistant Manager Type: Progress Notes Filed: 06/19/2021 9:07 PM Note Text: 66 year old female with c/o pain in righ t knee over last month. Prednisone helps. Rheum has repeated cautions of using pre dnisone but she cannot walk or do basic ADLs- has to help. Trying to reach rheum but not getting ca ll back. Started Arava but hasn't noticed any dif ference. Was told to see pain management as most of pain believed to be OA. Neurontin has helped a tiny bit. Has appt with pain management Dr. Cb pedroza Wednesday. 05/12/2021 single view right knee, C-spin e, LS spine, bilateral hands degenerative without evidence of inflamm atory arthropathy. Breathing is about the same. Continuous O2. Hasn't completed lung studies outstandin g. Has not completed outstanding 02/20/22 hg ba1c orders. Hemoglobin A1C (%) Date Value 06/17/2020 6.1 02/12/2020 6.4 ) Component Latest Ref Rng AND Units 02/1105/12/2021 WBC 3.70 - 11.00 k/uL 15.43 (H) RBC 3.90 - 5.20 m/uL 3.79 (L) Hemoglobin 11.5 - 15.5 g/dL 11.4 (L) Hematocrit 36.0 - 46.0 % 39.7 MCV 80.0 - 100.0 fL 104.7 (H) MCH 26.0 - 34.0 pg 30.1 MCHC 30.5 - 36.0 g/dL 28.7 (L) RDW-CV 11.5 - 15.0 % 13.7 Platelet Count 150 - 400 k/uL 381 MPV 9.0 - 12.7 fL 10.2 Neut% % 83.4 Abs Neut (ANC) 1.45 - 7.50 k/uL 12.87 (H ) Lymph% % 9.4 Abs Lymph 1.00 - 4.00 k/uL 1.45 Washburn% % 3.8 Abs [place]burn <0.87 k/uL 0.58 Eosin% % 2.0 Abs Eosin <0.46 k/uL 0.31 Baso% % 0.6 Abs Baso <0.11 k/uL 0.10 Immature Gran % % 0.8 IMMATURE GRANS (ABS) <0.10 k/uL 0.12 (H) NRBC 0.0 /100 WBC 0.0 Absolute nRBC <0.01 k/uL <0.01 DTYPE Auto Protein, Total 6.3 - 8.0 g/dL 6.0 (L) 6. 5 Albumin 3.9 - 4.9 g/dL 3.5 (L) 3.7 (L) Calcium 8.5 - 10.2 mg/dL 9.0 8.9 Bilirubin, Total 0.2 - 1.3 mg/dL 0.4 0.2 Alkaline Phosphatase 34 - 123 U/L 72 98 AST 13 - 35 U/L 15 12 (L) Glucose 74 - 99 mg/dL 89 89 BUN 7 - 21 mg/dL 14 13 Creatinine 0.58 - 0.96 mg/dL 0.77 0.78 Sodium 136 - 144 mmol/L 139 142 Potassium 3.7 - 5.1 mmol/L 4.0 3.9 Chloride 97 - 105 mmol/L 102 105 CO2 22 - 30 mmol/L 24 27 Anion Gap 9 - 18 mmol/L 13 10 ALT 7 - 38 U/L 16 6 (L) eGFR- >60 >60 eGFR-All Other Races >60 >60 Vitamin D 25 Hydroxy 30.0 - 100.0 ng/mL 10.4 (L) HISTORIES FAMILY HISTORY Problem Relation Age of Onset - Ischemic Heart Disease Father - Cataract Father - other (COPD, smoker) Father - Cataract Mother - other (COPD, smoker) Mother - other (liver transplant) Sister Etiology of liver disease unknown to pat ient. - Heart Sister PAST MEDICAL HISTORY Diagnosis Date - Anemia, unspecified - Asthma - Atrial fibrillation (HCC) 04/26/2017 - Cardiac disease 2020 pt does not know other than she has hea rt problems - Chronic bronchitis (HCC) - COPD (chronic obstructive pulmonary di sease) (HCC) Chronic bronchitis by history. - COVID-19 vaccine series completed 07-27-2020 2nd dose Pfizer - Hyperglycemia 12/25/2016 - Hyperthyroidism 05/10/2017 [place] - Rheumatoid arthritis (HCC) Leflunomide. Dayanna Silva MD. 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 Leflunomide, Dayanna Silva MD PAST SURGICAL HISTORY Procedure Laterality Date - COLONOSCOPY FLX DX W/COLLJ SPEC WHEN P FRMD 10/09/2019 Colonoscopy - ESOPHAGOGASTRODUODENOSCOPY TRANSORAL D IAGNOSTIC 10/09/2019 EGD - LIG/TRNSXJ FLP TUBE ABDL/VAG APPR UNI/ BI - XCAPSL CTRC RMVL INSJ IO LENS PROSTH W /O ECP Right 12/15/2017 Cataract Extraction with PC IOL - XCAPSL CTRC RMVL INSJ IO LENS PROSTH W /O ECP Left 01/05/2018 Cataract Extraction with PC IOL Social History Tobacco Use - Smoking status: Former Smoker Packs/day: 0.50 Years: 30.00 Pack years: 15.00 Start date: 01/01/1970 Quit date: 09/09/2010 Years since quittin.7 - Smokeless tobacco: Never Used Vaping Use - Vaping Use: Never used Substance Use Topics - Alcohol use: No - Drug use: No ACTIVE PROBLEM LIST Allergic Rhinitis Due to Pollen Chronic Rhinitis Centrilobular Emphysema (Hcc) Ild (Interstitial Lung Disease) (Hcc) Lung Nodule, Multiple Iatrogenic Adrenal Insufficiency (Hcc) Chronic Respiratory Failure With Hypoxia (Hcc) Rheumatoid Arthritis Involving Multiple Sites With Positive Rheumatoid Factor (Hcc) Senior Care Current Use of Immunosuppressi ve Drug Paroxysmal Atrial Fibrillation (Hcc) Hyperthyroidism Normocytic Anemia Pre-Diabetes Current Chronic Use of Systemic Steroids Type 2 Diabetes Mellitus Without Complic ation, Without Long-Term Current Use of Insulin (Hcc) Regular Astigmatism, Bilateral Vitreous Floaters of Both Eyes Pseudophakia of Both Eyes Cesar (Obstructive Sleep Apnea) Cholesteatoma, Bilateral Obesity, Class I, Bmi 30-34.9 Encounter for Support and Coordination o f Transition of Care Chronic Neutrophilia Current Outpatient Medications Medication Sig Dispense Refill (more con tent not included)... 06-10-2021 Note HNO ID: [id number] [facility] Author: Asia Calderón MD Center Service: ? Author Type: Physician Type: Progress Notes Filed: 06/10/2021 11:33 AM Note Text: VIRTUAL VISIT PROGRESS NOTE This is a virtual visit using [employer] vi alesia visit. It required patient-provider interaction for the [facility] decision making as documented below. Viviana Santana is a 66 year old female see n for joint pain. Not on Arava 10 mg daily. More joint maylin n since not on pred. Diagnosed with RA 2017. She was admitted at [facility] - double pneumonia, RA. She was seeing rheum but she had insurance conflicts. She was prescribed prednisone, gabapentin, A rava. She presented with toe tingling, knee, hand swelling, elbows, s houlders, neck. She was once diagnosed with anemia. not much improvem ent with Arava. Ran out of Arava few months ago. I am in pain all the ti me . Only steroids help. PCP sent pred She had shoulder injections. PAF, COPD, ILD, DM2, polyneuropathy. She follows with pulm in [place]. RA, chronic steroids, adrenal insuff Family h/o autoimmune disease - father w ith psoriasis Smoking - ex smoker quit 2010 Rheumatology REVIEW OF SYSTEMS: Constitutional: Recent Weight Change: No Fatigue: No Fever: No Night sweats: No Heent: Alopecia: No H/o Inflammatory eye disease (iritis/scl eritis): No Hearing loss: No Frequent sinusitis: No Oral ulcers: No Sicca: No Parotid swelling: No Hoarseness: No Dysphagia: No Heme/lymph: Lymphadenopathy: No Hematological abnormalities (anemia, thr ombocytopenia, leukopenia): No Abnormal bleeding: No Skin: Malar or discoid lesions: No Photosensitivity: No Other rashes: No Raynaud's phenomenon: No Hives: No Tightness: No Nodules/bumps: No Easy Bruising: No Nail changes: No H/o psoriasis: No Gastroenterology: Nausea: {No Vomiting: No Change in bowel movements: No Heartburn: No Respiratory: Dry cough/SOB: No Cardiovascular: Pain in chest: No Musculoskeletal: Per HPI Joint pain or swelling: No Prolonged morning stiffness: No Back pain or neck pain: No Muscle weakness: No Genitourinary: Vaginal dryness: No Rash/ulcers: No Neurological: Headaches: No Sensitivity or pain of hands and/or feet : No Psychiatry: Anxiety: No Depression: No Poor sleep: No H/o loss: No H/o thrombosis: No Increased susceptibility to infection: N o HISTORY REVIEWED (electronic chart updat ed): PAST MEDICAL HISTORY Diagnosis Date - Anemia, unspecified - Asthma - Atrial fibrillation (HCC) 04/26/2017 - Cardiac disease 2020 pt does not know other than she has hea rt problems - Chronic bronchitis (HCC) - COPD (chronic obstructive pulmonary di sease) (HCC) Chronic bronchitis by history. - COVID-19 vaccine series completed 07-27-2020 2nd dose Pfizer - Hyperglycemia 12/25/2016 - Hyperthyroidism 05/10/2017 Tatianna - Rheumatoid arthritis (HCC) Leflunomide. Dayanna Silva MD. 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 Dayanna Richards MD PAST SURGICAL HISTORY Procedure Laterality Date - COLONOSCOP W/ OR W/O BRSH SPEC 020 Colonoscopy - EGD W/O OR W/BRUSH/WASH 10/09/2019 EGD - LIGATE FALLOPIAN TUBE - REMV CATARACT EXTRACAP,INSERT LENS Rig ht 12/15/2017 Cataract Extraction with PC IOL - REMV CATARACT EXTRACAP,INSERT LENS Lef t 01/05/2018 Cataract Extraction with PC IOL FAMILY HISTORY Problem Relation Age of Onset - Ischemic Heart Disease Father - Cataract Father - other (COPD, smoker) Father - Cataract Mother - other (COPD, smoker) Mother - other (liver transplant) Sister Etiology of liver disease unknown to pat nishi. - Heart Sister Social History Tobacco Use - Smoking status: Former Smoker Packs/day: 0.50 Years: 30.00 Pack years: 15.00 Start date: 01/01/1970 Quit date: 09/09/2010 Years since quittin.7 - Smokeless tobacco: Never Used Vaping Use - Vaping Use: Never used Substance Use Topics - Alcohol use: No - Drug use: No Current Outpatient Medications Medication Sig - leflunomide (ARAVA) 10 mg tablet Take 1 tablet by mouth once daily. - ergocalciferol 50,000 unit capsule ( TAMIN D2, DRISDOL) Take 1 capsule by mouth one time a week. - ondansetron (ZOFRAN) 4 mg tablet Take 1 tablet by mouth every 6 hours as needed for nausea/vomiting. - ferrous gluconate 324 mg (37.5 mg iron ) tablet Take 1 tablet by mouth twice daily with meals. - gabapentin (NEURONTIN) 400 mg capsule Take 1 capsule by mouth three times daily for 180 days. (Patient navjot curran differently: Take 400 mg by mouth daily at bedtime. ) - Miscellaneous Medical Supply Portable oxygen concentrator 3l/min at all times. - gabapentin (NEURONTIN) 100 mg capsule Take 2 capsules by mouth twice daily for 180 days. - metFORMIN ER (GLUCOPHAGE XR) 500 mg 24 hr tablet Take 1 tablet by mouth once daily. - metoprolol succinate ER (T OPROL XL) 100 mg Take 1 tablet by mouth (more content not included)... 05-12-2021 Note HNO ID: [id number] [facility] Author: RT Daquan(R) Center Service: Radiology Author Type: Technologist Type: Progress Notes Filed: 05/12/2021 12:32 PM Note Text: Radiology Service Progress Note PATIENT NAME: Viviana Santana DATE OF SERVICE: May 12, 2021 TIME: 12:31 PM PATIENT IDENTITY VERIFICATION COMPLETED USING TWO (2) IDENTIFIERS: Name and Date of confirmed by patient v erbally and Name and Date of confirmed by identification band. FALL SCREENING: Has the patient had 2 fa lls in the last year or 1 fall with injury or currently using an Ambula tory Assistive Device (Walker, Cane, Wheelchair, Crutches, etc.)? No PATIENT GENDER DATA: Female. s tatus: : No status: NO. PATIENT RELEVANT IMPLANT DATA REVIEWED: Not Applicable RADIOLOGY DEPARTMENT: General X-ray: Exa m(s) Completed: Spine X-Ray(s): Cervical AP / LAT and Lumbar AP / LAT / L5-S1 Pelvis X-Ray: sacroiliac joints Lower Extremity X-Ray(s): Knee, AP Only Bilateral and Wt. Bearing and Foot, Bilateral Upper Extremity X-Ray(s): Hand, bilatera l PERIPHERAL IV DATA: Not applicable SIGNED BY: RT Daquan(R) May 12, 2021 12:31 PM 04-25-2021 Note HNO ID[facility] [id number] [facility]: Asia Calder[facility] MD Center Service: ? Author Type: Physician Type: Progress Notes Filed: 04/25/2021 12:08 PM Note Text: VIRTUAL VISIT PROGRESS NOTE This is a virtual visit using [employer] vi alesia visit. It required patient-provider interaction for the [facility] decision making as documented below. Viviana Santana is a 66 year old female see n for joint pain. Diagnosed with RA 2017. She was admitted at [facility] - double pneumonia, RA. She was seeing rheum but she had insurance conflicts. She was prescribed prednisone, gabapentin, A rava. She presented with toe tingling, knee, hand swelling, elbows, s houlders, neck. She was once diagnosed with anemia. not much improvem ent with Arava. Ran out of Arava few months ago. I am in pain all the ti me . Only steroids help. PCP sent pred She had shoulder injections. PAF, COPD, ILD, DM2, polyneuropathy. She follows with pulm in [place]. RA, chronic steroids, adrenal insuff Family h/o autoimmune disease - father w ith psoriasis Smoking - ex smoker quit 2010 Rheumatology REVIEW OF SYSTEMS: Constitutional: Recent Weight Change: No Fatigue: No Fever: No Night sweats: No Heent: Alopecia: No H/o Inflammatory eye disease (iritis/scl eritis): No Hearing loss: No Frequent sinusitis: No Oral ulcers: No Sicca: No Parotid swelling: No Hoarseness: No Dysphagia: No Heme/lymph: Lymphadenopathy: No Hematological abnormalities (anemia, thr ombocytopenia, leukopenia): No Abnormal bleeding: No Skin: Malar or discoid lesions: No Photosensitivity: No Other rashes: No Raynaud's phenomenon: No Hives: No Tightness: No Nodules/bumps: No Easy Bruising: No Nail changes: No H/o psoriasis: No Gastroenterology: Nausea: {No Vomiting: No Change in bowel movements: No Heartburn: No Respiratory: Dry cough/SOB: No Cardiovascular: Pain in chest: No Musculoskeletal: Per HPI Joint pain or swelling: No Prolonged morning stiffness: No Back pain or neck pain: No Muscle weakness: No Genitourinary: Vaginal dryness: No Rash/ulcers: No Neurological: Headaches: No Sensitivity or pain of hands and/or feet : No Psychiatry: Anxiety: No Depression: No Poor sleep: No H/o loss: No H/o thrombosis: No Increased susceptibility to infection: N o HISTORY REVIEWED (electronic chart updat ed): PAST MEDICAL HISTORY Diagnosis Date - Anemia, unspecified - Asthma - Atrial fibrillation (HCC) 04/26/2017 - Cardiac disease 2020 pt does not know other than she has hea rt problems - Chronic bronchitis (HCC) - COPD (chronic obstructive pulmonary di sease) ([facility]) Chronic bronchitis by history. - COVID-19 vaccine series completed 07-27-2020 2nd dose Pfizer - Hyperglycemia 12/25/2016 - Hyperthyroidism 05/10/2017 Tatianna - Rheumatoid arthritis (HCC) Kristinenomiddavid. Dayanna Silva MD. 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 Dayanna Richards MD PAST SURGICAL HISTORY Procedure Laterality Date - COLONOSCOP W/ OR W/O BRSH SPEC 020 Colonoscopy - EGD W/O OR W/BRUSH/WASH 10/09/2019 EGD - LIGATE FALLOPIAN TUBE - REMV CATARACT EXTRACAP,INSERT LENS Rig ht 12/15/2017 Cataract Extraction with PC IOL - REMV CATARACT EXTRACAP,INSERT LENS Lef t 01/05/2018 Cataract Extraction with PC IOL FAMILY HISTORY Problem Relation Age of Onset - Ischemic Heart Disease Father - Cataract Father - other (COPD, smoker) Father - Cataract Mother - other (COPD, smoker) Mother - other (liver transplant) Sister Etiology of liver disease unknown to elvin almodovar. - Heart Sister Social History Tobacco Use - Smoking status: Former Smoker Packs/day: 0.50 Years: 30.00 Pack years: 15.00 Start date: 01/01/1970 Quit date: 09/09/2010 Years since quittin.6 - Smokeless tobacco: Never Used Vaping Use - Vaping Use: Never used Substance Use Topics - Alcohol use: No - Drug use: No Current Outpatient Medications Medication Sig - predniSONE (DELTASONE) 20 mg tablet Ta ke 1 tablet by mouth once daily for 5 days. Take daily with food. - ondansetron (ZOFRAN) 4 mg tablet Take 1 tablet by mouth every 6 hours as needed for nausea/vomiting. - ferrous gluconate 324 mg (37.5 mg iron ) tablet Take 1 tablet by mouth twice daily with meals. - gabapentin (NEURONTIN) 400 mg capsule Take 1 capsule by mouth three times daily for 180 days. (Patient navjot curran differently: Take 400 mg by mouth daily at bedtime. ) - Miscellaneous Medical Supply Portable oxygen concentrator 3l/min at all times. - gabapentin (NEURONTIN) 100 mg capsule Take 2 capsules by mouth twice daily for 180 days. - metFORMIN ER (GLUCOPHAGE XR) 500 mg 24 hr tablet Take 1 tablet by mouth once daily. - metoprolol succinate ER (TOPROL XL) 10 0 mg Take 1 tablet by mouth once daily. - omeprazole (PRILOSEC) 40 mg capsule Ta ke 1 capsule by mouth once daily. (Patient not taking: Reported on 04/01 ( more content not included)... 04-21-2021 Note Patient Outreach (NETNAV) [facility] Brewer VIVIANA SANTANA ([id number]) 1955 F Date Time Provider Department 04/21/21 DARA TRINH During your visit today, we recorded the following information about you: Dara Trinh RN 04/21/2021 11:32 AM Signed ACM INEZ RN Action/FYI: NO ACTION REQUIRED Patient identified by name and date of b ir. Patient Attributed To: E Payer: [employer] [place] Reason for review or outreach: Suspect Condition Review Summary / Findings: Suspected conditions reviewed at [facility]. Action Taken: Data submitted to [facility] Contact made with patient: No, Chart review only. Signature: Dara Trinh RN Allergies As of Date: 04/21/2021 Noted A llergy Reaction RAGWEED 03/10/2011 14 - Other: See Comme nts TREES 03/10/2011 14 - Other: See Comment s Date Reviewed: 04/01/2021 Reviewed by: Hailee Roque MA - Fully Ass essed Reason for Visit: ACM INEZ RN [[id number]] Cmt: Suspected Condition Rev - [facility] Prescriptions as of 04/21/2021 - ondansetron (ZOFRAN) 4 mg tablet Take 1 tablet by mouth every 6 hours as needed for nausea/vomiting. - ferrous gluconate 324 mg (37.5 mg iron ) tablet Take 1 tablet by mouth twice daily with meals. - gabapentin (NEURONTIN) 400 mg capsule Take 1 capsule by mouth three times mohsen y for 180 days. - [employer] Portable oxygen concentrator 3l/min at a ll times. - gabapentin (NEURONTIN) 100 mg capsule Take 2 capsules by mouth twice daily for 180 days. - metFORMIN ER (GLUCOPHAGE XR) 500 mg 24 hr tablet Take 1 tablet by mouth once daily. - metoprolol succinate ER (TOPROL XL) 10 0 mg Take 1 tablet by mouth once daily. - omeprazole (PRILOSEC) 40 mg capsule Take 1 capsule by mouth once daily. - verapamil (CALAN, ISOPTIN) 80 mg table t Take 0.5 tablets by mouth every 8 hours. - rivaroxaban (XARELTO) 20 mg tablet Take 1 tablet by mouth daily with dinner . - ipratropium-albuterol (DUONEB) 0.5 mg- 3 mg(2.5 mg base)/3 mL nebu Inhale 3 mL as instructed four times devin ly. - budesonide (PULMICORT) 0.5 mg/2 mL neb ulizer solution Use 2 mL via nebulizer once daily. INHAL E 2 ML BY NEBULIZER OVER 5-15 MINUTES EVERY 12 HOURS. - COMPOUNDED PRESCRIPTION Provide nebulizer accessory kit. DME: Serena bonilla. - COMPOUNDED PRESCRIPTION Accessories for nebulizer J43.1 Panlobul ar emphysema (HCC) (primary encounter diagnosis) J84.9 ILD (intersti tial lung disease) (HCC) - COMPOUNDED PRESCRIPTION #1 Continuous Flow Stationary O2 Concent rator Sig: O2 2l/min liter flow Patient is to keep portablel concentrato r as well J43.2 Centrilobular emphysema (HCC) J84.9 ILD (interstitial lung disease) (HCC) J96.11 Chronic respiratory failure with hypoxia ([facility]) - leflunomide (ARAVA) 10 mg tablet Take 1 tablet by mouth once daily. - COMPOUNDED PRESCRIPTION Face mask: hypoxia - COMPOUNDED PRESCRIPTION Portable oxygen concentrator, setting 2 at rest, setting 3 with ambulation. - COMPOUNDED PRESCRIPTION Evaluate patient for portable pulse dose O2 concentrator. - COMPOUNDED PRESCRIPTION Portable oxygen concentrator. - acetaminophen (TYLENOL EXTRA STRENGTH) 500 mg tablet Take 1,000 mg by mouth every 6 hours as needed. 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 immunosuppressi ve drug*05/19/2017 Paroxysmal atrial fibrillation (HCC) [I4 8.0] 05/10/2017 Hyperthyroidism [E05.90] 05/10/2017 Normocytic anemia [D64.9] 05/28/2017 Pre-diabetes [R73.03] 06/28/2017 Current chronic use of systemic steroids [Z79.5*06/28/2017 Type 2 diabetes mellitus without complic ation, *11/22/2017 Combined 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-related cataract o f both *11/22/2017 01/06/2018 Regular astigmatism, bilateral [H52.223] 11/22/2017 Combined 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-related cataract o f right*12/06/2017 01/06/2018 Combined 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-related cataract o f left *12/06/2017 01/05/2018 Combined 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-related cataract, right e*12/06/2017 12/15/2017 Status post cataract extraction and inse rtion o*12/16/2017 07/28/2018 Combined form of age-related cataract, l eft eye*12/27/2017 01/06/2018 Status post cataract extraction and inse rtion o*01/06/2018 07/28/2018 Vitreous fl (more content not included). .. 04-21-2021 Note HNO ID: [id number] [facility] Author: Dara Trinh RN [place] Service: ? Author Type: Registered Nurse Type: Progress Notes Filed: 04/21/2021 11:32 AM Note Text: ACM INEZ RN Action/FYI: NO ACTION REQUIRED Patient identified by name and date of b irth. Patient Attributed To: QAE Payer: [facility] Reason for review or outreach: Suspect Condition Review Summary / Findings: Suspected conditions reviewed at [facility]. Action Taken: Data submitted to [facility] Contact made with patient: No, Chart review only. Signature: Dara Trinh RN 04-01-2021 Note HNO ID: [id number] [facility] Author: Yovani Piedra, DO Carlos andrade Service: ? Author Type: Physician Type: Progress Notes Filed: 04/01/2021 3:37 PM Note Text: [facility] [place] Sanjiv Sprague Department of Cardiovascular Medicine SECTION OF REGIONAL CARDIOLOGY 09/30/20 SUHA: 04/01/20 Viviana Santana is a 65 year old female wit h a history shortness of breath, palpitations and atrial fibrillation who is here today for follow up. HPI: She is doing well since last visit with no cardiac complaints. She reports chronic dyspnea on exertion with mild efforts primarily related to her CILD. Denies chest pain, orthopnea, PND, palpitations, lightheadedness, dizziness, syncope, or edema. Patient denies any regular aerobic exercise. Prior history: 04/01/20 She has been doing well since last visit other than she was admitted in January 2020 with pneumonia and respirat ory failure again. She did got to [facility] admit in January 2019: Preadmission evaluation: SOB and cough x 2 days. No fever. had URI. Which facility: [facility] Dates of visit: !-02/02/19 Primary Diagnosis/es: MSSA, Serratia marcescans pneumonia Chronic hypoxic respiratory failure COPD Secondary: Chronic prednisone Hyperthyroidism ILD Multiple lung nodules CESAR Chronic atrial fibrillation Pre-diabetes RA Chronic immunosuppressant drug therapy Type 2 DM Testing done: resp cultures positive as above sensitiv e to levaquin 01/30/19 WBC 19.6 hgb 10.6 chems WNL exc ept alb 2.7, glob 5.2 02/01/19 WBC 13.1 hgb 8.8 RDW WNL. 01/30/19 ABG 7.48-31.8-70--23.7-95% Negative legionella, Atrep Pneum, Resp v irus panel Treatment given/Hospital course: IV ATB, O2. Improved. D/C in stable condition with prednisone 40mg daily and levaquin 750mg x 1 week Current symptoms: improved. Finished ant ibiotics. Feels back to baseline. Saw Dr. Sofia and started on Gabapenti n 100mg TID At prior visit did not start Ivabradine due to cost. Patient assistance information was printed off for her at t [facility] visit. She did not send in the paperwork because she's had significant life stressors over the past month. Her son is in rehab for a drug ad diction, and this has consumed the majority of her time. She was admitted [facility] in April 2017 with sepsis and pneumonia and acute resp iratory failure requiring ventilation. During her hospital admissi on she was noted to be in atrial fibrillation with rapid ventricular resp onse. ?Her heart rate was controlled with beta blockers. ?She sravani es any prior history of atrial fibrillation. ?She was found to have inf luenza as well. ?During her hospitalization she was noted to have a very low TSH at 0.02 and elevated T4 with 1.74. ?Her thyroid scan however was not conclusive for hypothyroidism. ?She has known long-milagros ding severe interstitial lung disease and bronchiectasis. ?She follows with pulmonary at the [facility] now. ?There was a note that they increased her metoprolol to 50 twice a day of long acting in the hospit al however she was only taking 25 mg daily at this time. ?Her heart rate w as 121 and sinus tachycardia. ?She is only able to walk a minimal amount in stores before she is short of breath. ?She is on home oxygen therapy. ?She knows she did have a sensation rapid heartbeat during atrial fibrillation and has not had that sensation since. Patient was seen in the office on where she was noted to be significantly tachycardic in the 120's. She has a long-standing history of severe interstitial lung disease and bro nchiectasis. She was diagnosed with inappropriate sinus tachycardia, an d has been maintained on Toprol-XL 50mg daily. She was started on Ivabradin e 2.5mg BID for better rate control. She did not start this medicati on because it was $95 a month and she cannot afford this. PAST MEDICAL HISTORY Diagnosis Date - Anemia, unspecified - Asthma - Atrial fibrillation (HCC) 04/26/2017 - Cardiac disease 2020 pt does not know other than she has hea rt problems - Chronic bronchitis (HCC) - COPD (chronic obstructive pulmonary di sease) (HCC) Chronic bronchitis by history. - COVID-19 vaccine series completed 07-27-2020 2nd dose Pfizer - Hyperglycemia 12/25/2016 - Hyperthyroidism 05/10/2017 Tatianna - Rheumatoid arthritis (HCC) Leflunomide. Dayanna Silva MD. 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 Pneumonia of right upper lobe due to methicillin susceptible 02/13/2019 10/06/2019 Staphylococcus aureus (MSSA) Status post cataract extraction and insertion of intraocular 01/06/2018 07/28/2018 lens of left eye Combined form of age-related cataract, left eye 12/27/2017 01/06/2018 Overview: Added automatically from request for gabrielle lyon [id number] Status post cataract extraction and insertion of intraocular 12/16/2017 07/28/2018 lens of right eye Combined 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-related cataract of right eye 12/07/19 18 01/06/2018 Combined 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-related cataract of left eye 8 01/05/2018 Combined 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-related cataract, right eye 12/06/2017 12/15/2017 Overview: Added automatically from request for gabrielle lyon [id number] Combined 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-related cataract of both eyes 11/23/19 18 01/06/2018 Iatrogenic Olney's disease 05/19/2017 05/19/2017 Hyperglycemia 12/25/2016 08/25/2018 documented as of this encounter (statuses as of 08/04/2021)[facility] 05-12-2019 History of Past illness Narrative Problem Noted Date Resolved Date Acute bilateral mastoiditis 05/12/2019 02/29/2020 Overview: 05/11/19: CT IAC temporal bones, PF, orbi t, sella without contrast demonstrates 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 Pneumonia of right upper lobe due to methicillin susceptible 02/13/2019 10/06/2019 Staphylococcus aureus (MSSA) Status post cataract extraction and insertion of intraocular 01/06/2018 07/28/2018 lens of left eye Combined form of age-related cataract, left eye 12/27/2017 01/06/2018 Overview: Added automatically from request for gabrielle lyon [id number] Status post cataract extraction and insertion of intraocular 12/16/2017 07/28/2018 lens of right eye Combined 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-related cataract of right eye 12/07/19 18 01/06/2018 Combined 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-related cataract of left eye 8 01/05/2018 Combined 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-related cataract, right eye 12/06/2017 12/15/2017 Overview: Added automatically from request for gabrielle lyon [id number] Combined 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-related cataract of both eyes 11/23/19 18 01/06/2018 Iatrogenic Olney's disease 05/19/2017 05/19/2017 Hyperglycemia 12/25/2016 08/25/2018 documented as of this encounter (statuses as of 08/07/2021)[facility] 05-12-2019 History of Past illness Narrative Problem Noted Date Resolved Date Acute bilateral mastoiditis 05/12/2019 02/29/2020 Overview: 05/11/19: CT IAC temporal bones, PF, orbi t, sella without contrast demonstrates 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 Pneumonia of right upper lobe due to methicillin susceptible 02/13/2019 10/06/2019 Staphylococcus aureus (MSSA) Status post cataract extraction and insertion of intraocular 01/06/2018 07/28/2018 lens of left eye Combined form of age-related cataract, left eye 12/27/2017 01/06/2018 Overview: Added automatically from request for gabrielle lyon [id number] Status post cataract extraction and insertion of intraocular 12/16/2017 07/28/2018 lens of right eye Combined 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-related cataract of right eye 12/07/19 18 01/06/2018 Combined 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-related cataract of left eye 8 01/05/2018 Combined 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-related cataract, right eye 12/06/2017 12/15/2017 Overview: Added automatically from request for gabrielle macy [id number] Combined 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-related cataract of both eyes 11/23/19 18 01/06/2018 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 05/19/2017 Hyperglycemia 12/25/2016 08/25/2018 documented as of this encounter (statuses as of 08/07/2021)[facility] 05-12-2019 History of Past illness Narrative Problem Noted Date Resolved Date Acute bilateral mastoiditis 05/12/2019 02/29/2020 Overview: 05/11/19: CT IAC temporal bones, PF, orbi t, sella without contrast demonstrates 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 Pneumonia of right upper lobe due to methicillin susceptible 02/13/2019 10/06/2019 Staphylococcus aureus (MSSA) Status post cataract extraction and insertion of intraocular 01/06/2018 07/28/2018 lens of left eye Combined form of age-related cataract, left eye 12/27/2017 01/06/2018 Overview: Added automatically from request for gabrielle sonali [id number] Status post cataract extraction and insertion of intraocular 12/16/2017 07/28/2018 lens of right eye Combined 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-related cataract of right eye 12/07/19 18 01/06/2018 Combined 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-related cataract of left eye 8 01/05/2018 Combined 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-related cataract, right eye 12/06/2017 12/15/2017 Overview: Added automatically from request for gabrielle macy [id number] Combined 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-related cataract of both eyes 11/23/19 18 01/06/2018 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 05/19/2017 Hyperglycemia 12/25/2016 08/25/2018 documented as of this encounter (statuses as of 08/07/2021)[facility] 05-12-2019 History of Past illness Narrative Problem Noted Date Resolved Date Acute bilateral mastoiditis 05/12/2019 02/29/2020 Overview: 05/11/19: CT IAC temporal bones, PF, orbi t, sella without contrast demonstrates 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 Pneumonia of right upper lobe due to methicillin susceptible 02/13/2019 10/06/2019 Staphylococcus aureus (MSSA) Status post cataract extraction and insertion of intraocular 01/06/2018 07/28/2018 lens of left eye Combined form of age-related cataract, left eye 12/27/2017 01/06/2018 Overview: Added automatically from request for gabrielle sonali [id number] Status post cataract extraction and insertion of intraocular 12/16/2017 07/28/2018 lens of right eye Combined 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-related cataract of right eye 12/07/19 18 01/06/2018 Combined 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-related cataract of left eye 8 01/05/2018 Combined 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-related cataract, right eye 12/06/2017 12/15/2017 Overview: Added automatically from request for gabrielle sonali [id number] Combined 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-related cataract of both eyes 11/23/19 18 01/06/2018 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 05/19/2017 Hyperglycemia 12/25/2016 08/25/2018 documented as of this encounter (statuses as of 08/21/2021)[facility] 05-12-2019 History of Past illness Narrative Problem Noted Date Resolved Date Acute bilateral mastoiditis 05/12/2019 02/29/2020 Overview: 05/11/19: CT IAC temporal bones, PF, orbi t, sella without contrast demonstrates 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 Pneumonia of right upper lobe due to methicillin susceptible 02/13/2019 10/06/2019 Staphylococcus aureus (MSSA) Status post cataract extraction and insertion of intraocular 01/06/2018 07/28/2018 lens of left eye Combined form of age-related cataract, left eye 12/27/2017 01/06/2018 Overview: Added automatically from request for gabrielle lyon [id number] Status post cataract extraction and insertion of intraocular 12/16/2017 07/28/2018 lens of right eye Combined 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-related cataract of right eye 12/07/19 18 01/06/2018 Combined 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-related cataract of left eye 8 01/05/2018 Combined 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-related cataract, right eye 12/06/2017 12/15/2017 Overview: Added automatically from request for gabrielle lyon [id number] Combined 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-related cataract of both eyes 11/23/19 18 01/06/2018 Iatrogenic Olney's disease 05/19/2017 05/19/2017 Hyperglycemia 12/25/2016 08/25/2018 documented as of this encounter (statuses as of 09/08/2021)[facility] 05-12-2019 History of Past illness Narrative Problem Noted Date Resolved Date Acute bilateral mastoiditis 05/12/2019 02/29/2020 Overview: 05/11/19: CT IAC temporal bones, PF, orbi t, sella without contrast demonstrates 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 Pneumonia of right upper lobe due to methicillin susceptible 02/13/2019 10/06/2019 Staphylococcus aureus (MSSA) Status post cataract extraction and insertion of intraocular 01/06/2018 07/28/2018 lens of left eye Combined form of age-related cataract, left eye 12/27/2017 01/06/2018 Overview: Added automatically from request for gabrielle lyon [id number] Status post cataract extraction and insertion of intraocular 12/16/2017 07/28/2018 lens of right eye Combined 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-related cataract of right eye 12/07/19 18 01/06/2018 Combined 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-related cataract of left eye 8 01/05/2018 Combined 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-related cataract, right eye 12/06/2017 12/15/2017 Overview: Added automatically from request for gabrielle lyon [id number] Combined 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-related cataract of both eyes 11/23/19 18 01/06/2018 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 05/19/2017 Hyperglycemia 12/25/2016 08/25/2018 documented as of this encounter (statuses as of 09/11/2021)[facility] 05-12-2019 History of Past illness Narrative Problem Noted Date Resolved Date Acute bilateral mastoiditis 05/12/2019 02/29/2020 Overview: 05/11/19: CT IAC temporal bones, PF, orbi t, sella without contrast demonstrates 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 Pneumonia of right upper lobe due to methicillin susceptible 02/13/2019 10/06/2019 Staphylococcus aureus (MSSA) Status post cataract extraction and insertion of intraocular 01/06/2018 07/28/2018 lens of left eye Combined form of age-related cataract, left eye 12/27/2017 01/06/2018 Overview: Added automatically from request for gabrielle macy [id number] Status post cataract extraction and insertion of intraocular 12/16/2017 07/28/2018 lens of right eye Combined 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-related cataract of right eye 12/07/19 18 01/06/2018 Combined 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-related cataract of left eye 8 01/05/2018 Combined 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-related cataract, right eye 12/06/2017 12/15/2017 Overview: Added automatically from request for gabrielle sonali [id number] Combined 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-related cataract of both eyes 11/23/19 18 01/06/2018 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 05/19/2017 Hyperglycemia 12/25/2016 08/25/2018 documented as of this encounter (statuses as of 09/19/2021)[facility] 05-12-2019 History of Past illness Narrative Problem Noted Date Resolved Date Acute bilateral mastoiditis 05/12/2019 02/29/2020 Overview: 05/11/19: CT IAC temporal bones, PF, orbi t, sella without contrast demonstrates 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 Pneumonia of right upper lobe due to methicillin susceptible 02/13/2019 10/06/2019 Staphylococcus aureus (MSSA) Status post cataract extraction and insertion of intraocular 01/06/2018 07/28/2018 lens of left eye Combined form of age-related cataract, left eye 12/27/2017 01/06/2018 Overview: Added automatically from request for gabrielle sonali [id number] Status post cataract extraction and insertion of intraocular 12/16/2017 07/28/2018 lens of right eye Combined 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-related cataract of right eye 12/07/19 18 01/06/2018 Combined 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-related cataract of left eye 8 01/05/2018 Combined 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-related cataract, right eye 12/06/2017 12/15/2017 Overview: Added automatically from request for gabrielle sonali [id number] Combined 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-related cataract of both eyes 11/23/19 18 01/06/2018 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 05/19/2017 Hyperglycemia 12/25/2016 08/25/2018 documented as of this encounter (statuses as of 09/19/2021)[facility] 05-12-2019 History of Past illness Narrative Problem Noted Date Resolved Date Acute bilateral mastoiditis 05/12/2019 02/29/2020 Overview: 05/11/19: CT IAC temporal bones, PF, orbi t, sella without contrast demonstrates 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 Pneumonia of right upper lobe due to methicillin susceptible 02/13/2019 10/06/2019 Staphylococcus aureus (MSSA) Status post cataract extraction and insertion of intraocular 01/06/2018 07/28/2018 lens of left eye Combined form of age-related cataract, left eye 12/27/2017 01/06/2018 Overview: Added automatically from request for gabrielle sonali [id number] Status post cataract extraction and insertion of intraocular 12/16/2017 07/28/2018 lens of right eye Combined 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-related cataract of right eye 12/07/19 18 01/06/2018 Combined 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-related cataract of left eye 8 01/05/2018 Combined 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-related cataract, right eye 12/06/2017 12/15/2017 Overview: Added automatically from request for gabrielle lyon [id number] Combined 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 FT4 high 1.74 , FT3 high 1.83 Symptomatic afib with RVR. NM uptake: no focal areas of uptake. TSab negative. 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 Pneumonia of right upper lobe due to methicillin susceptible 02/13/2019 10/06/2019 Staphylococcus aureus (MSSA) Status post cataract extraction and insertion of intraocular 01/06/2018 07/28/2018 lens of left eye Combined form of age-related cataract, left eye 12/27/2017 01/06/2018 Overview: Added automatically from request for gabrielle lyon [id number] Status post cataract extraction and insertion of intraocular 12/16/2017 07/28/2018 lens of right eye Combined 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-related cataract of right eye 12/07/19 18 01/06/2018 Combined 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-related cataract of left eye 8 01/05/2018 Combined 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-related cataract, right eye 12/06/2017 12/15/2017 Overview: Added automatically from request for gabrielle lyon [id number] Combined 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-related cataract of both eyes 11/23/19 18 01/06/2018 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 FT4 high 1.74 , FT3 high 1.83 Symptomatic afib with RVR. NM uptake: no focal areas of uptake. TSab negative. 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 Pneumonia of right upper lobe due to methicillin susceptible 02/13/2019 10/06/2019 Staphylococcus aureus (MSSA) Status post cataract extraction and insertion of intraocular 01/06/2018 07/28/2018 lens of left eye Combined form of age-related cataract, left eye 12/27/2017 01/06/2018 Overview: Added automatically from request for gabrielle sonali [id number] Status post cataract extraction and insertion of intraocular 12/16/2017 07/28/2018 lens of right eye Combined 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-related cataract of right eye 12/07/19 18 01/06/2018 Combined 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-related cataract of left eye 8 01/05/2018 Combined 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-related cataract, right eye 12/06/2017 12/15/2017 Overview: Added automatically from request for gabrielle sonali [id number] Combined 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-related cataract of both eyes 11/23/19 18 01/06/2018 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 FT4 high 1.74 , FT3 high 1.83 Symptomatic afib with RVR. NM uptake: no focal areas of uptake. TSab negative. 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 Pneumonia of right upper lobe due to methicillin susceptible 02/13/2019 10/06/2019 Staphylococcus aureus (MSSA) Status post cataract extraction and insertion of intraocular 01/06/2018 07/28/2018 lens of left eye Combined form of age-related cataract, left eye 12/27/2017 01/06/2018 Overview: Added automatically from request for gabrielle lyon [id number] Status post cataract extraction and insertion of intraocular 12/16/2017 07/28/2018 lens of right eye Combined 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-related cataract of right eye 12/07/19 18 01/06/2018 Combined 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-related cataract of left eye 8 01/05/2018 Combined 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-related cataract, right eye 12/06/2017 12/15/2017 Overview: Added automatically from request for gabrielle lyon [id number] Combined 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-related cataract of both eyes 11/23/19 18 01/06/2018 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 FT4 high 1.74 , FT3 high 1.83 Symptomatic afib with RVR. NM uptake: no focal areas of uptake. TSab negative. 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 Pneumonia of right upper lobe due to methicillin susceptible 02/13/2019 10/06/2019 Staphylococcus aureus (MSSA) Status post cataract extraction and insertion of intraocular 01/06/2018 07/28/2018 lens of left eye Combined form of age-related cataract, left eye 12/27/2017 01/06/2018 Overview: Added automatically from request for gabrielle lyon [id number] Status post cataract extraction and insertion of intraocular 12/16/2017 07/28/2018 lens of right eye Combined 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-related cataract of right eye 12/07/19 18 01/06/2018 Combined 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-related cataract of left eye 8 01/05/2018 Combined 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-related cataract, right eye 12/06/2017 12/15/2017 Overview: Added automatically from request for gabrielle lyon [id number] Combined 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 FT4 high 1.74 , FT3 high 1.83 Symptomatic afib with RVR. NM uptake: no focal areas of uptake. TSab negative. 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 Pneumonia of right upper lobe due to methicillin susceptible 02/13/2019 10/06/2019 Staphylococcus aureus (MSSA) Status post cataract extraction and insertion of intraocular 01/06/2018 07/28/2018 lens of left eye Combined form of age-related cataract, left eye 12/27/2017 01/06/2018 Overview: Added automatically from request for gabrielle lyon [id number] Status post cataract extraction and insertion of intraocular 12/16/2017 07/28/2018 lens of right eye Combined 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-related cataract of right eye 12/07/19 18 01/06/2018 Combined 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-related cataract of left eye 8 01/05/2018 Combined 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-related cataract, right eye 12/06/2017 12/15/2017 Overview: Added automatically from request for gabrielle lyon [id number] Combined 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-related cataract of both eyes 11/23/19 18 01/06/2018 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 FT4 high 1.74 , FT3 high 1.83 Symptomatic afib with RVR. NM uptake: no focal areas of uptake. TSab negative. 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 Pneumonia of right upper lobe due to methicillin susceptible 02/13/2019 10/06/2019 Staphylococcus aureus (MSSA) Status post cataract extraction and insertion of intraocular 01/06/2018 07/28/2018 lens of left eye Combined form of age-related cataract, left eye 12/27/2017 01/06/2018 Overview: Added automatically from request for gabrielle lyon [id number] Status post cataract extraction and insertion of intraocular 12/16/2017 07/28/2018 lens of right eye Combined 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-related cataract of right eye 12/07/19 18 01/06/2018 Combined 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-related cataract of left eye 8 01/05/2018 Combined 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-related cataract, right eye 12/06/2017 12/15/2017 Overview: Added automatically from request for gabrielle lyon [id number] Combined 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 FT4 high 1.74 , FT3 high 1.83 Symptomatic afib with RVR. NM uptake: no focal areas of uptake. TSab negative. 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 Pneumonia of right upper lobe due to methicillin susceptible 02/13/2019 10/06/2019 Staphylococcus aureus (MSSA) Status post cataract extraction and insertion of intraocular 01/06/2018 07/28/2018 lens of left eye Combined form of age-related cataract, left eye 12/27/2017 01/06/2018 Overview: Added automatically from request for gabrielle lyon [id number] Status post cataract extraction and insertion of intraocular 12/16/2017 07/28/2018 lens of right eye Combined 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-related cataract of right eye 12/07/19 18 01/06/2018 Combined 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-related cataract of left eye 8 01/05/2018 Combined 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-related cataract, right eye 12/06/2017 12/15/2017 Overview: Added automatically from request for gabrielle sonali [id number] Combined 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-related cataract of both eyes 11/23/19 18 01/06/2018 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 FT4 high 1.74 , FT3 high 1.83 Symptomatic afib with RVR. NM uptake: no focal areas of uptake. TSab negative. Microsomal Ab neg Hyperglycemia 12/25/2016 08/25/2018 documented as of this encounter (statuses as of 11/17/2021)[facility] 05-12[facility]2019 History of Past illness Narrative Problem Noted Date Resolved Date Acute bilateral mastoiditis 05/12/2019 02/29/2020 Overview:Formatting of this note might b e different from the original. 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 Added automatically from request for gabrielle sonali [id number] Status post cataract extraction and insertion of intraocular 12/16/2017 07/28/2018 lens of right eye Combined 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-related cataract of right eye 12/07/19 18 01/06/2018 Combined 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-related cataract of left eye 8 01/05/2018 Combined 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-related cataract, right eye 12/06/2017 12/15/2017 Overview:Formatting of this note might b e different from the original. 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 05/10/17 [place] TSH 0.020. FT4 high 1.74 , FT3 high 1.83 Symptomatic afib with RVR. NM uptake: no focal areas of uptake. TSab negative. Microsomal Ab neg Hyperglycemia 12/25/2016 08/25/2018 documented as of this encounter (statuses as of 11/24/2021)[facility] 05-12-2019 History of Past illness Narrative Problem Noted Date Resolved Date Acute bilateral mastoiditis 05/12/2019 02/29/2020 Overview:Formatting of this note might b e different from the original. 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 Added automatically from request for gabrielle sonali [id number] Status post cataract extraction and insertion of intraocular 12/16/2017 07/28/2018 lens of right eye Combined 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-related cataract of right eye 12/07/19 18 01/06/2018 Combined 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-related cataract of left eye 8 01/05/2018 Combined 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-related cataract, right eye 12/06/2017 12/15/2017 Overview:Formatting of this note might b e different from the original. 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 05/10/17 [place] TSH 0.020. FT4 high 1.74 , FT3 high 1.83 Symptomatic afib with RVR. NM uptake: no focal areas of uptake. TSab negative. Microsomal Ab neg Hyperglycemia 12/25/2016 08/25/2018 documented as of this encounter (statuses as of 11/27/2021)[facility] 05[facility]12[facility]2019 History of Past illness Narrative Problem Noted Date Resolved Date Acute bilateral mastoiditis 05/12/2019 02/29/2020 Overview:Formatting of this note might b e different from the original. 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 Added automatically from request for gabrielle lyon [id number] Status post cataract extraction and insertion of intraocular 12/16/2017 07/28/2018 lens of right eye Combined 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-related cataract of right eye 12/07/19 18 01/06/2018 Combined 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-related cataract of left eye 8 01/05/2018 Combined 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-related cataract, right eye 12/06/2017 12/15/2017 Overview:Formatting of this note might b e different from the original. 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 05/10/17 [place] TSH 0.020. FT4 high 1.74 , FT3 high 1.83 Symptomatic afib with RVR. NM uptake: no focal areas of uptake. TSab negative. Microsomal Ab neg Hyperglycemia 12/25/2016 08/25/2018 documented as of this encounter (statuses as of 12/08/2021)[facility] 05-12[facility]2019 History of Past illness Narrative Problem Noted Date Resolved Date Acute bilateral mastoiditis 05/12/2019 02/29/2020 Overview:Formatting of this note might b e different from the original. 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 Added automatically from request for gabrielle lyon [id number] Status post cataract extraction and insertion of intraocular 12/16/2017 07/28/2018 lens of right eye Combined 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-related cataract of right eye 12/07/19 18 01/06/2018 Combined 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-related cataract of left eye 8 01/05/2018 Combined 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-related cataract, right eye 12/06/2017 12/15/2017 Overview:Formatting of this note might b e different from the original. 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 05/10/17 [place] TSH 0.020. FT4 high 1.74 , FT3 high 1.83 Symptomatic afib with RVR. NM uptake: no focal areas of uptake. TSab negative. Microsomal Ab neg Hyperglycemia 12/25/2016 08/25/2018 documented as of this encounter (statuses as of 12/08/2021)[facility] 05-12-2019 History of Past illness Narrative Problem Noted Date Resolved Date Acute bilateral mastoiditis 05/12/2019 02/29/2020 Overview:Formatting of this note might b e different from the original. 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 Added automatically from request for gabrielle lyon [id number] Status post cataract extraction and insertion of intraocular 12/16/2017 07/28/2018 lens of right eye Combined 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-related cataract of right eye 12/07/19 18 01/06/2018 Combined 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-related cataract of left eye 8 01/05/2018 Combined 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-related cataract, right eye 12/06/2017 12/15/2017 Overview:Formatting of this note might b e different from the original. 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 05/10/17 [place] TSH 0.020. FT4 high 1.74 , FT3 high 1.83 Symptomatic afib with RVR. NM uptake: no focal areas of uptake. TSab negative. Microsomal Ab neg Hyperglycemia 12/25/2016 08/25/2018 documented as of this encounter (statuses as of 12/11/2021)[facility] 05-12-2019 History of Past illness Narrative Problem Noted Date Resolved Date Acute bilateral mastoiditis 05/12/2019 02/29/2020 Overview:Formatting of this note might b e different from the original. 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 Added automatically from request for gabrielle sonali [id number] Status post cataract extraction and insertion of intraocular 12/16/2017 07/28/2018 lens of right eye Combined 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-related cataract of right eye 12/07/19 18 01/06/2018 Combined 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-related cataract of left eye 8 01/05/2018 Combined 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-related cataract, right eye 12/06/2017 12/15/2017 Overview:Formatting of this note might b e different from the original. 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 05/10/17 [place] TSH 0.020. FT4 high 1.74 , FT3 high 1.83 Symptomatic afib with RVR. NM uptake: no focal areas of uptake. TSab negative. Microsomal Ab neg Hyperglycemia 12/25/2016 08/25/2018 documented as of this encounter (statuses as of 12/23/2021)[facility] 05-12-2019 History of Past illness Narrative Problem Noted Date Resolved Date Acute bilateral mastoiditis 05/12/2019 02/29/2020 Overview:Formatting of this note might b e different from the original. 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 Added automatically from request for gabrielle sonali [id number] Status post cataract extraction and insertion of intraocular 12/16/2017 07/28/2018 lens of right eye Combined 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-related cataract of right eye 12/07/19 18 01/06/2018 Combined 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-related cataract of left eye 8 01/05/2018 Combined 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-related cataract, right eye 12/06/2017 12/15/2017 Overview:Formatting of this note might b e different from the original. 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 05/10/17 [place] TSH 0.020. FT4 high 1.74 , FT3 high 1.83 Symptomatic afib with RVR. NM uptake: no focal areas of uptake. TSab negative. Microsomal Ab neg Hyperglycemia 12/25/2016 08/25/2018 documented as of this encounter (statuses as of 01/01/2022)[facility] 05-12-2019 History of Past illness Narrative Problem Noted Date Resolved Date Acute bilateral mastoiditis 05/12/2019 02/29/2020 Overview:Formatting of this note might b e different from the original. 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 Added automatically from request for gabrielle sonali [id number] Status post cataract extraction and insertion of intraocular 12/16/2017 07/28/2018 lens of right eye Combined 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-related cataract of right eye 12/07/19 18 01/06/2018 Combined 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-related cataract of left eye 8 01/05/2018 Combined 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-related cataract, right eye 12/06/2017 12/15/2017 Overview:Formatting of this note might b e different from the original. 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 05/10/17 [place] TSH 0.020. FT4 high 1.74 , FT3 high 1.83 Symptomatic afib with RVR. NM uptake: no focal areas of uptake. TSab negative. Microsomal Ab neg Hyperglycemia 12/25/2016 08/25/2018 documented as of this encounter (statuses as of 01/12/2022)[facility] 05-12-2019 History of Past illness Narrative Problem Noted Date Resolved Date Acute bilateral mastoiditis 05/12/2019 02/29/2020 Overview:Formatting of this note might b e different from the original. 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 Added automatically from request for gabrielle lyon [id number] Status post cataract extraction and insertion of intraocular 12/16/2017 07/28/2018 lens of right eye Combined 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-related cataract of right eye 12/07/19 18 01/06/2018 Combined 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-related cataract of left eye 8 01/05/2018 Combined 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-related cataract, right eye 12/06/2017 12/15/2017 Overview:Formatting of this note might b e different from the original. 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 05/10/17 [place] TSH 0.020. FT4 high 1.74 , FT3 high 1.83 Symptomatic afib with RVR. NM uptake: no focal areas of uptake. TSab negative. Microsomal Ab neg Hyperglycemia 12/25/2016 08/25/2018 documented as of this encounter (statuses as of 01/12/2022)[facility] 05-12-2019 History of Past illness Narrative Problem Noted Date Resolved Date Acute bilateral mastoiditis 05/12/2019 02/29/2020 Overview:Formatting of this note might b e different from the original. 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 Added automatically from request for gabrielle lyon [id number] Status post cataract extraction and insertion of intraocular 12/16/2017 07/28/2018 lens of right eye Combined 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-related cataract of right eye 12/07/19 18 01/06/2018 Combined 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-related cataract of left eye 8 01/05/2018 Combined 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-related cataract, right eye 12/06/2017 12/15/2017 Overview:Formatting of this note might b e different from the original. 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 05/10/17 [place] TSH 0.020. FT4 high 1.74 , FT3 high 1.83 Symptomatic afib with RVR. NM uptake: no focal areas of uptake. TSab negative. Microsomal Ab neg Hyperglycemia 12/25/2016 08/25/2018 documented as of this encounter (statuses as of 01/30/2022)[facility] 05-12-2019 History of Past illness Narrative Problem Noted Date Resolved Date Acute bilateral mastoiditis 05/12/2019 02/29/2020 Overview:Formatting of this note might b e different from the original. 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 Added automatically from request for gabrielle lyon [id number] Status post cataract extraction and insertion of intraocular 12/16/2017 07/28/2018 lens of right eye Combined 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-related cataract of right eye 12/07/19 18 01/06/2018 Combined 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-related cataract of left eye 8 01/05/2018 Combined 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-related cataract, right eye 12/06/2017 12/15/2017 Overview:Formatting of this note might b e different from the original. 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 05/10/17 [place] TSH 0.020. FT4 high 1.74 , FT3 high 1.83 Symptomatic afib with RVR. NM uptake: no focal areas of uptake. TSab negative. Microsomal Ab neg Hyperglycemia 12/25/2016 08/25/2018 documented as of this encounter (statuses as of 02/07/2022)[facility] 05-12-2019 History of Past illness Narrative Problem Noted Date Resolved Date Acute bilateral mastoiditis 05/12/2019 02/29/2020 Overview:Formatting of this note might b e different from the original. 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 Added automatically from request for gabrielle lyon [id number] Status post cataract extraction and insertion of intraocular 12/16/2017 07/28/2018 lens of right eye Combined 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-related cataract of right eye 12/07/19 18 01/06/2018 Combined 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-related cataract of left eye 8 01/05/2018 Combined 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-related cataract, right eye 12/06/2017 12/15/2017 Overview:Formatting of this note might b e different from the original. 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 05/10/17 [place] TSH 0.020. FT4 high 1.74 , FT3 high 1.83 Symptomatic afib with RVR. NM uptake: no focal areas of uptake. TSab negative. Microsomal Ab neg Hyperglycemia 12/25/2016 08/25/2018 documented as of this encounter (statuses as of 02/09/2022)[facility] 05-12-2019 History of Past illness Narrative Problem Noted Date Resolved Date Acute bilateral mastoiditis 05/12/2019 02/29/2020 Overview:Formatting of this note might b e different from the original. 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 Added automatically from request for gabrielle sonali [id number] Status post cataract extraction and insertion of intraocular 12/16/2017 07/28/2018 lens of right eye Combined 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-related cataract of right eye 12/07/19 18 01/06/2018 Combined 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-related cataract of left eye 8 01/05/2018 Combined 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-related cataract, right eye 12/06/2017 12/15/2017 Overview:Formatting of this note might b e different from the original. 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 05/10/17 [place] TSH 0.020. FT4 high 1.74 , FT3 high 1.83 Symptomatic afib with RVR. NM uptake: no focal areas of uptake. TSab negative. Microsomal Ab neg Hyperglycemia 12/25/2016 08/25/2018 documented as of this encounter (statuses as of 02/10/2022)[facility] 05-12-2019 History of Past illness Narrative Problem Noted Date Resolved Date Acute bilateral mastoiditis 05/12/2019 02/29/2020 Overview:Formatting of this note might b e different from the original. 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 Added automatically from request for gabrielle sonali [id number] Status post cataract extraction and insertion of intraocular 12/16/2017 07/28/2018 lens of right eye Combined 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-related cataract of right eye 12/07/19 18 01/06/2018 Combined 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-related cataract of left eye 8 01/05/2018 Combined 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-related cataract, right eye 12/06/2017 12/15/2017 Overview:Formatting of this note might b e different from the original. 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 05/10/17 [place] TSH 0.020. FT4 high 1.74 , FT3 high 1.83 Symptomatic afib with RVR. NM uptake: no focal areas of uptake. TSab negative. Microsomal Ab neg Hyperglycemia 12/25/2016 08/25/2018 documented as of this encounter (statuses as of 02/16/2022)[facility] 05-12[facility]2019 History of Past illness Narrative Problem Noted Date Resolved Date Acute bilateral mastoiditis 05/12/2019 02/29/2020 Overview:Formatting of this note might b e different from the original. 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 Added automatically from request for gabrielle macy [id number] Status post cataract extraction and insertion of intraocular 12/16/2017 07/28/2018 lens of right eye Combined 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-related cataract of right eye 12/07/19 18 01/06/2018 Combined 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-related cataract of left eye 8 01/05/2018 Combined 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-related cataract, right eye 12/06/2017 12/15/2017 Overview:Formatting of this note might b e different from the original. 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 05/10/17 [place] TSH 0.020. FT4 high 1.74 , FT3 high 1.83 Symptomatic afib with RVR. NM uptake: no focal areas of uptake. TSab negative. Microsomal Ab neg Hyperglycemia 12/25/2016 08/25/2018 documented as of this encounter (statuses as of 03/05/2022)[facility] 05-12[facility]2019 History of Past illness Narrative Problem Noted Date Resolved Date Acute bilateral mastoiditis 05/12/2019 02/29/2020 Overview:Formatting of this note might b e different from the original. 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 Added automatically from request for gabrielle lyon [id number] Status post cataract extraction and insertion of intraocular 12/16/2017 07/28/2018 lens of right eye Combined 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-related cataract of right eye 12/07/19 18 01/06/2018 Combined 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-related cataract of left eye 8 01/05/2018 Combined 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-related cataract, right eye 12/06/2017 12/15/2017 Overview:Formatting of this note might b e different from the original. 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 05/10/17 [place] TSH 0.020. FT4 high 1.74 , FT3 high 1.83 Symptomatic afib with RVR. NM uptake: no focal areas of uptake. TSab negative. Microsomal Ab neg Hyperglycemia 12/25/2016 08/25/2018 documented as of this encounter (statuses as of 03/06/2022)[facility] 05-12[facility]2019 History of Past illness Narrative Problem Noted Date Resolved Date Acute bilateral mastoiditis 05/12/2019 02/29/2020 Overview:Formatting of this note might b e different from the original. 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 Added automatically from request for gabrielle lyon [id number] Status post cataract extraction and insertion of intraocular 12/16/2017 07/28/2018 lens of right eye Combined 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-related cataract of right eye 12/07/19 18 01/06/2018 Combined 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-related cataract of left eye 8 01/05/2018 Combined 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-related cataract, right eye 12/06/2017 12/15/2017 Overview:Formatting of this note might b e different from the original. 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 05/10/17 [place] TSH 0.020. FT4 high 1.74 , FT3 high 1.83 Symptomatic afib with RVR. NM uptake: no focal areas of uptake. TSab negative. Microsomal Ab neg Hyperglycemia 12/25/2016 08/25/2018 documented as of this encounter (statuses as of 03/09/2022)[facility] 05-12-2019 History of Past illness Narrative Problem Noted Date Resolved Date Acute bilateral mastoiditis 05/12/2019 02/29/2020 Overview:Formatting of this note might b e different from the original. 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 Added automatically from request for gabrielle lyon [id number] Status post cataract extraction and insertion of intraocular 12/16/2017 07/28/2018 lens of right eye Combined 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-related cataract of right eye 12/07/19 18 01/06/2018 Combined 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-related cataract of left eye 8 01/05/2018 Combined 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-related cataract, right eye 12/06/2017 12/15/2017 Overview:Formatting of this note might b e different from the original. 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 05/10/17 Tatianna TSH 0.020. FT4 high 1.74 , FT3 high 1.83 Symptomatic afib with RVR. NM uptake: no focal areas of uptake. TSab negative. Microsomal Ab neg Hyperglycemia 12/25/2016 08/25/2018 documented as of this encounter (statuses as of 03/16/2022)[facility] 05-12-2019 History of Past illness Narrative Problem Noted Date Resolved Date Acute bilateral mastoiditis 05/12/2019 02/29/2020 Overview:Formatting of this note might b e different from the original. 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 Added automatically from request for gabrielle lyon [id number] Status post cataract extraction and insertion of intraocular 12/16/2017 07/28/2018 lens of right eye Combined 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-related cataract of right eye 12/07/19 18 01/06/2018 Combined 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-related cataract of left eye 8 01/05/2018 Combined 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-related cataract, right eye 12/06/2017 12/15/2017 Overview:Formatting of this note might b e different from the original. 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 05/10/17 Tatianna TSH 0.020. FT4 high 1.74 , FT3 high 1.83 Symptomatic afib with RVR. NM uptake: no focal areas of uptake. TSab negative. Microsomal Ab neg Hyperglycemia 12/25/2016 08/25/2018 documented as of this encounter (statuses as of 03/30/2022)[facility] 05-12-2019 History of Past illness Narrative Problem Noted Date Resolved Date Acute bilateral mastoiditis 05/12/2019 02/29/2020 Overview:Formatting of this note might b e different from the original. 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 Added automatically from request for gabrielle lyon [id number] Status post cataract extraction and insertion of intraocular 12/16/2017 07/28/2018 lens of right eye Combined 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-related cataract of right eye 12/07/19 18 01/06/2018 Combined 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-related cataract of left eye 8 01/05/2018 Combined 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-related cataract, right eye 12/06/2017 12/15/2017 Overview:Formatting of this note might b e different from the original. 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 05/10/17 Tatianna TSH 0.020. FT4 high 1.74 , FT3 high 1.83 Symptomatic afib with RVR. NM uptake: no focal areas of uptake. TSab negative. Microsomal Ab neg Hyperglycemia 12/25/2016 08/25/2018 documented as of this encounter (statuses as of 04/03/2022)[facility] Evaluation note Diagnosis Stage 4 very severe COPD by GOLD classif ication (HCC) ILD (interstitial lung disease) (HCC) Postinflammatory pulmonary fibrosis documented in this encounterCle[facility]Evaluation [facility] Diagnosis Stage 4 very severe COPD by GOLD classif ication (HCC) ILD (interstitial lung disease) (HCC) Postinflammatory pulmonary fibrosis documented in this encounterCle[facility] Diagnosis Stage 3 severe COPD by GOLD classificati on (HCC)- Primary Bronchiectasis without complication (HCC ) Bronchiectasis without acute exacerbatio n ILD (interstitial lung disease) ([facility]) Postinflammatory pulmonary fibrosis Chronic respiratory failure with hypoxia (HCC) Chronic respiratory failure documented in this encounterCleMer[facility] HospitalEvaluation note Diagnosis Paroxysmal atrial fibrillation (HCC) Atrial fibrillation documented in this encounterCleMer[facility] HospitalEvaluation note Diagnosis Paroxysmal atrial fibrillation (HCC)- Pr imary Atrial fibrillation Inappropriate sinus tachycardia Other specified cardiac dysrhythmias Chronic anticoagulation Long-term (current) use of anticoagulant s Hyperlipidemia, mixed Mixed hyperlipidemia ILD (interstitial lung disease) (HCC) Postinflammatory pulmonary fibrosis Panlobular emphysema (HCC) Other emphysema Chronic respiratory failure with hypoxia (HCC) Chronic respiratory failure Rheumatoid arthritis involving multiple sites with positive rheumatoid factor (HCC) [facility] encounterC[facility] Diagnosis Rheumatoid arthritis involving multiple sites with positive rheumatoid factor (HCC)- Primary Pain in joint, multiple sites longterm current use of systemic steroi ds Encounter for long-term (current) use of steroids Osteoporosis, unspecified osteoporosis t ype, unspecified pathological fracture presence documented in this encounterC[facility] ClinicEvaluation note Diagnosis Type 2 diabetes mellitus without retinop athy (HCC)- Primary Type II or unspecified type diabetes joanie litus without mention of complication, not stated as uncontrolled Vitreous floaters of both eyes Pseudophakia of both eyes Lens replaced by other means After cataract of left eye not obscuring vision documented in this encounterC[facility] ClinicEvaluation note Diagnosis Hypertriglyceridemia- Primary Pure hyperglyceridemia Paroxysmal atrial fibrillation (HCC) Atrial fibrillation Chronic respiratory failure with hypoxia (HCC) Chronic respiratory failure Type 2 diabetes mellitus without complic ation, without long-term current use of insulin (HCC) Rheumatoid arthritis involving multiple sites with positive rheumatoid factor (HCC) Elevated ferritin Other abnormal blood chemistry Iatrogenic adrenal insufficiency (HCC) Glucocorticoid deficiency Lung nodule, multiple Other nonspecific abnormal finding 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 Pre-diabetes Other abnormal glucose CESAR (obstructive sleep apnea) Obstructive sleep apnea (adult) (pediatr ic) Hyperthyroidism Thyrotoxicosis without mention of goiter or other cause, without mention of thyrotoxic crisis or storm documented in this encounterCle[facility] Diagnosis Rheumatoid arthritis involving multiple sites with positive rheumatoid factor (HCC)- Primary longterm current use of systemic steroi ds Encounter for long-term (current) use of steroids Current chronic use of systemic steroids Pain in joint, multiple sites High risk medication use Encounter for long-term (current) use of other medications documented in this encounterCle[facility] note Diagnosis Chronic pain syndrome- Primary Generalized OA Generalized osteoarthrosis, unspecified site Myofascial pain Mylagia and myositis, unspecified documented in this encounterCle[facility] Diagnosis Rheumatoid arthritis involving multiple sites with positive rheumatoid factor (HCC)- Primary documented in this encounterCleprom[facility] note Diagnosis Encounter for screening mammogram for br east cancer documented in this encounterCleprom[facility] ClinicEvaluation note Diagnosis Myofascial pain- Primary Mylagia and myositis, unspecified documented in this encounterElk[facility] ClinicEvaluation [facility] Diagnosis Rheumatoid arthritis involving multiple sites with positive rheumatoid factor (HCC) documented in this encounterElkader ClinicEvaluation note Diagnosis Rheumatoid arthritis involving multiple sites with positive rheumatoid factor (HCC)- Primary Current chronic use of systemic steroids High risk medication use Encounter for long-term (current) use of other medications Vitamin D deficiency Unspecified vitamin D deficiency documented in this encounterElkader ClinicEvaluation note Diagnosis 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 Encounter for long-term (current) use of steroids Osteoporosis, unspecified osteoporosis t ype, unspecified pathological fracture presence Rheumatoid arthritis involving multiple sites with positive rheumatoid factor (HCC) documented in this encounterElkader ClinicEvaluation note Diagnosis Rheumatoid arthritis involving multiple sites with positive rheumatoid factor (HCC)- Primary documented in this encounterCle[facility] note Diagnosis Chronic pain syndrome- Primary Generalized OA Generalized osteoarthrosis, unspecified site Myofascial pain Mylagia and myositis, unspecified documented in this encounterElkader ClinicEvaluation note Diagnosis Rheumatoid arthritis involving multiple sites with positive rheumatoid factor (HCC) Vitamin D deficiency Unspecified vitamin D deficiency Other osteoporosis without current patho logical fracture documented in this encounterCleprom[facility] note Diagnosis Interstitial pulmonary disease (HCC)- 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 Bronchiectasis without complication (HCC ) Bronchiectasis without acute exacerbatio n 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) Chronic airway obstruction, not elsewher e classified Chronic respiratory failure with hypoxia (HCC) Chronic respiratory failure documented in this encounterElkader ClinicEvaluation note Diagnosis Other osteoporosis without current patho logical fracture- Primary Rheumatoid arthritis involving multiple sites with positive rheumatoid factor (HCC) documented in this encounterCleprom[facility] ClinicEvaluation note Diagnosis Other osteoporosis without current patho logical fracture- Primary Rheumatoid arthritis involving multiple sites with positive rheumatoid factor (HCC) documented in this encounterMercy HospitalReason for referral (narrative) Diagnostic Procedure Only (Routine) - Pending Review Specialty Diagnoses / Procedures Referred By Contact Refer red To Contact [facility] Diagnoses Encounter for screening mammogram for breast cancer Alexa Becerra PA-C [facility] Procedures ERNIE SCREENING SCREENING MAMMOGRAPHY BI 2-VIEW BREAST INC CAD [address] [place] [address] [place] [address] Referral ID Status Reason Start Expiration Visits Visits Date Date Requested Authorized [id number] Pending Auto-Generat 11/12/2021 12/12/2022 1 1 Review ed Referral [facility] Summary Purpose Family History No Family History Records FoundNo Family History Records FoundNo Family History Records FoundNo Family History Records Found Advance Directives Documents on File Type Date Recorded 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 Advance Directive(s) 10/09/2019 7:44 AM Advance Directive(s) 09/20/2019 8:57 AM Advance Directive(s) 01/05/2018 9:14 AM Advance Directive(s) 12/15/2017 7:52 AM Documents on File Type Date Recorded 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 Advance Directive(s) 10/09/2019 7:44 AM Advance Directive(s) 09/20/2019 8:57 AM Advance Directive(s) 01/05/2018 9:14 AM Advance Directive(s) 12/15/2017 7:52 AM Reason for Referral Specialty Diagnoses / Procedures Referred By Contact Refer red To Contact Pain Management Diagnoses Pain in joint, multiple sites Rheumatoid arthritis involving multiple sites with positive rheumatoid factor (HCC) Asia Calderón MD Procedures CONSULT TO PAIN MGT [address] [place] [address] Referral ID Status Reason Start Expiration Visits Visits Date Date Requested Authorized [id number] Ref Not PCP Requested 09/18/2021 12/17/2021 3 3 Required Referral Specialty Diagnoses / Procedures Referred By Contact Refer red To Contact CT IMAGING Diagnoses Interstitial pulmonary disease (HCC) Junior Mathew MD Ct Imaging Procedures CT CHEST WO IVCON DIAGNOSTIC COMPUTED TOMOGRAPHY THORAX W/O CNTRST [address] [place] [address] Referral ID Status Reason Start Expiration Visits Visits Date Date Requested Authorized [id number] Authorized Auto-Generat 03/08/2023 1 1 ed Referral 2 Medications Administered Section Active Administered Medications - up to 3 most recent administrations Medication Order MAR Action Action Date Dose Rate Site fluorescein-benoxinate 0.25-0.4 % Given 09/19/2021 4:00 PM EDT 1 Drop 1 Drop (FLURESS) 1 Drop, BOTH EYES, DIRECTED, Starting on Wed09/19/21 at 1600, Until 09/20/21 at 0359, Administer for applanation tonometry. In the event of a Fluress shortage, administer [place]-Fluor 1 drop into both eyes as directed for applanation tonometry PHENYLephrine 2.5 % 1 Drop (AK-DILATE, Given 09/19/2021 4:00 PM EDT 1 Drop GOLDY-SYNEPHRINE) 1 Drop, BOTH EYES, DIRECTED, Starting on Wed09/19/21 at 1600, Until 09/20/21 at 0359, Administer for dilation PROTECT FROM LIGHT proparacaine 0.5 % 1 Drop (ALCAINE) Given 09/19/2021 4:00 PM EDT 1 Drop 1 Drop, BOTH EYES, DIRECTED, Starting on Wed09/19/21 at 1600, Until 09/20/21 at 0359, Administer for pneumo tonometry, tonopen tonometry, or pachymetry. In the event of a proparacaine shortage, administer tetracaine 0.5% ophthalmic drops 1 drop in both eyes as directed for pneumo tonometry, tonopen tonometry, or pachymetry tropicamide 1 % 1 Drop (MYDRIACYL) Given 09/19/2021 4:00 PM EDT 1 Drop 1 Drop, BOTH EYES, DIRECTED, Starting on Wed09/19/21 at 1600, Until 09/20/21 at 0359, Administer for dilation Inactive Administered Medications - up to 3 most recent administrations Medication Order MAR Action Action Date Dose Rate Site abatacept 750 mg in NaCl New 11/10/2021 1:38 PM 750 mg 200 mL/hr 0.9% 100 mL (ORENCIA) Bag/Syringe/Bottle EDT 750 mg (set by rule on 10/22/2021 11:29 AM), INTRAVENOUS, at 200 mL/hr, Administer over 30 Minutes, ONCE, 1 dose, On 11/10/21 at 1300, Total Volume: 100 mL Administer with 0.2 micron filter. Inactive Administered Medications - up to 3 most recent administrations Medication Order MAR Action Action Date Dose Rate Site abatacept 750 mg in NaCl New 11/24/2021 1:43 PM 750 mg 200 mL/hr 0.9% 100 mL (ORENCIA) Bag/Syringe/Bottle EDT 750 mg (set by rule on 10/22/2021 11:29 AM), INTRAVENOUS, at 200 mL/hr, Administer over 30 Minutes, ONCE, 1 dose, On Wed11/24/21 at 1330, Total Volume: 100 mL Administer with 0.2 micron filter. Inactive Administered Medications - up to 3 most recent administrations Medication Order MAR Action Action Date Dose Rate Site abatacept 750 mg in NaCl New 12/23/2021 2:07 PM 750 mg 200 mL/hr 0.9% 100 mL (ORENCIA) Bag/Syringe/Bottle EDT 750 mg (set by rule on 10/22/2021 11:29 AM), INTRAVENOUS, at 200 mL/hr, Administer over 30 Minutes, ONCE, 1 dose, On Wed12/23/21 at 1400, Total Volume: 100 mL Administer with 0.2 micron filter. Inactive Administered Medications - up to 3 most recent administrations Medication Order MAR Action Action Date Dose Rate Site abatacept 750 mg in NaCl New 02/16/2022 1:08 PM 750 mg 200 mL/hr 0.9% 100 mL (ORENCIA) Bag/Syringe/Bottle EDT 750 mg (set by rule on 10/22/2021 11:29 AM), INTRAVENOUS, at 200 mL/hr, Administer over 30 Minutes, ONCE, 1 dose, On Wed02/16/22 at 1300, Total Volume: 100 mL Administer with 0.2 micron filter. Inactive Administered Medications - up to 3 most recent administrations Medication Order MAR Action Action Date Dose Rate Site abatacept 750 mg in NaCl New 03/16/2022 1:53 PM 750 mg 200 mL/hr 0.9% 100 mL (ORENCIA) Bag/Syringe/Bottle EST 750 mg (set by rule on 10/22/2021 11:29 AM), INTRAVENOUS, at 200 mL/hr, Administer over 30 Minutes, ONCE, 1 dose, On Wed03/16/22 at 1400, Total Volume: 100 mL; Exp: 03/16/22 @ 2200 Administer with 0.2 micron filter. zoledronic acid 5 mg New Bag/Syringe/Bottle 03/16/2022 2:43 PM 5 mg 400 mL/hr PREMIX piggyback EST (RECLAST) 5 mg, INTRAVENOUS, at 400 mL/hr, Administer over 15 Minutes, ONCE, 1 dose, On 03/16/22 at 1430, Hazardous Potential Reproductive Risk Drug: Use appropriate PPE. Additional Source Comments INFORMATION SOURCE (unrecognized section and content) DATE CREATED AUTHOR AUTHOR'S ORGANIZ ATION 10/12/2019 [facility] DATE CREATED AUTHOR AUTHOR'S ORGANIZATIO N 11/28/2020 [facility] ([place]) DATE CREATED AUTHOR AUTHOR'S ORGANIZATIO N 03/17/2022 [facility] DATE CREATED AUTHOR AUTHOR'S ORGANIZATIO N 03/31/2022 [facility] Source Comments (unrecognized section an d content) In the event this information is protect ed by the Federal Confidentiality of Alcohol and Drug Abuse Patient Records regulatio ns: This information has been disclosed to you from records protected by Federal co nfidentiality rules ( The Federal rules restrict any use of the information to criminally investigate or prosecute any alcohol or drug abuse patient. [facility] the event this information is protected by t Federal Confidentiality of Alcohol and Drug Abuse Patient Records regulations: This information has been disclosed to you from records protected by Federal confid entiality rules ( The Federal rules restrict any use of th e information to criminally investigate or prosecute any alcohol or drug abuse valeria ent. [facility] HospitalIn the event this information is protected by the Federal Confidentiality of Alcohol and Drug Abuse Patient Records regulations: This inform ation has been disclosed to you from records protected by Federal confidentiality rul es ( The Federal rules restrict any use of the in formation to criminally investigate or prosecute any alcohol or drug abuse valeria ent. [facility] HospitalIn the event this information is protected by the Federal Confidentiality of Alcohol and Drug Abuse Patient Records regulations: This inform ation has been disclosed to you from records protected by Federal confidentiality rul es ( The Federal rules restrict any use of the in formation to criminally investigate or prosecute any alcohol or drug abuse valeria ent. [facility] HospitalIn the event this information is protected by the Federal Confidentiality of Alcohol and Drug Abuse Patient Records regulations: This inform ation has been disclosed to you from records protected by Federal confidentiality rul es ( The Federal rules restrict any use of the in formation to criminally investigate or prosecute any alcohol or drug abuse valeria ent. [facility] HospitalIn the event this information is protected by the Federal Confidentiality of Alcohol and Drug Abuse Patient Records regulations: This inform ation has been disclosed to you from records protected by Federal confidentiality rul es ( The Federal rules restrict any use of the in formation to criminally investigate or prosecute any alcohol or drug abuse valeria ent. [facility] HospitalIn the event this information is protected by the Federal Confidentiality of Alcohol and Drug Abuse Patient Records regulations: This inform ation has been disclosed to you from records protected by Federal confidentiality rul es ( The Federal rules restrict any use of the in formation to criminally investigate or prosecute any alcohol or drug abuse valeria ent. [facility] HospitalIn the event this information is protected by the Federal Confidentiality of Alcohol and Drug Abuse Patient Records regulations: This inform ation has been disclosed to you from records protected by Federal confidentiality rul es ( The Federal rules restrict any use of the in formation to criminally investigate or prosecute any alcohol or drug abuse valeria ent. [facility] HospitalIn the event this information is protected by the Federal Confidentiality of Alcohol and Drug Abuse Patient Records regulations: This inform ation has been disclosed to you from records protected by Federal confidentiality rul es ( The Federal rules restrict any use of the in formation to criminally investigate or prosecute any alcohol or drug abuse valeria ent. [facility] HospitalIn the event this information is protected by the Federal Confidentiality of Alcohol and Drug Abuse Patient Records regulations: This inform ation has been disclosed to you from records protected by Federal confidentiality rul es ( The Federal rules restrict any use of the in formation to criminally investigate or prosecute any alcohol or drug abuse valeria ent. [facility] HospitalIn the event this information is protected by the Federal Confidentiality of Alcohol and Drug Abuse Patient Records regulations: This inform ation has been disclosed to you from records protected by Federal confidentiality rul es ( The Federal rules restrict any use of the in formation to criminally investigate or prosecute any alcohol or drug abuse valeria ent. [facility] HospitalIn the event this information is protected by the Federal Confidentiality of Alcohol and Drug Abuse Patient Records regulations: This inform ation has been disclosed to you from records protected by Federal confidentiality rul es ( The Federal rules restrict any use of the in formation to criminally investigate or prosecute any alcohol or drug abuse valeria ent. [facility] HospitalIn the event this information is protected by the Federal Confidentiality of Alcohol and Drug Abuse Patient Records regulations: This inform ation has been disclosed to you from records protected by Federal confidentiality rul es ( The Federal rules restrict any use of the in formation to criminally investigate or prosecute any alcohol or drug abuse valeria ent. [facility] HospitalIn the event this information is protected by the Federal Confidentiality of Alcohol and Drug Abuse Patient Records regulations: This inform ation has been disclosed to you from records protected by Federal confidentiality rul es ( The Federal rules restrict any use of the in formation to criminally investigate or prosecute any alcohol or drug abuse valeria ent. [facility] HospitalIn the event this information is protected by the Federal Confidentiality of Alcohol and Drug Abuse Patient Records regulations: This inform ation has been disclosed to you from records protected by Federal confidentiality rul es ( The Federal rules restrict any use of the in formation to criminally investigate or prosecute any alcohol or drug abuse valeria ent. [facility] HospitalIn the event this information is protected by the Federal Confidentiality of Alcohol and Drug Abuse Patient Records regulations: This inform ation has been disclosed to you from records protected by Federal confidentiality rul es ( The Federal rules restrict any use of the in formation to criminally investigate or prosecute any alcohol or drug abuse valeria ent. [facility] HospitalIn the event this information is protected by the Federal Confidentiality of Alcohol and Drug Abuse Patient Records regulations: This inform ation has been disclosed to you from records protected by Federal confidentiality rul es ( The Federal rules restrict any use of the in formation to criminally investigate or prosecute any alcohol or drug abuse valeria ent. [facility] HospitalIn the event this information is protected by the Federal Confidentiality of Alcohol and Drug Abuse Patient Records regulations: This inform ation has been disclosed to you from records protected by Federal confidentiality rul es ( The Federal rules restrict any use of the in formation to criminally investigate or prosecute any alcohol or drug abuse valeria ent. [facility] the event this information is protected by the Federal Confidentiality of Alcohol and Drug Abuse Patient Records regulations: This inform ation has been disclosed to you from records protected by Federal confidentiality rul es ( The Federal rules restrict any use of the in formation to criminally investigate or prosecute any alcohol or drug abuse valeria ent. [facility]In the event this information is protected by the Federal Confidentiality of Alcohol and Drug Abuse Patient Records regulations: This inform ation has been disclosed to you from records protected by Federal confidentiality rul es ( The Federal rules restrict any use of the in formation to criminally investigate or prosecute any alcohol or drug abuse valeria ent. [facility]In the event this information is protected by the Federal Confidentiality of Alcohol and Drug Abuse Patient Records regulations: This inform ation has been disclosed to you from records protected by Federal confidentiality rul es ( The Federal rules restrict any use of the in formation to criminally investigate or prosecute any alcohol or drug abuse valeria ent. [facility] HospitalIn the event this information is protected by the Federal Confidentiality of Alcohol and Drug Abuse Patient Records regulations: This inform ation has been disclosed to you from records protected by Federal confidentiality rul es ( The Federal rules restrict any use of the in formation to criminally investigate or prosecute any alcohol or drug abuse valeria ent. [facility] HospitalIn the event this information is protected by the Federal Confidentiality of Alcohol and Drug Abuse Patient Records regulations: This inform ation has been disclosed to you from records protected by Federal confidentiality rul es ( The Federal rules restrict any use of the in formation to criminally investigate or prosecute any alcohol or drug abuse valeria ent. [facility] HospitalIn the event this information is protected by the Federal Confidentiality of Alcohol and Drug Abuse Patient Records regulations: This inform ation has been disclosed to you from records protected by Federal confidentiality rul es ( The Federal rules restrict any use of the in formation to criminally investigate or prosecute any alcohol or drug abuse valeria ent. [facility] HospitalIn the event this information is protected by the Federal Confidentiality of Alcohol and Drug Abuse Patient Records regulations: This inform ation has been disclosed to you from records protected by Federal confidentiality rul es ( The Federal rules restrict any use of the in formation to criminally investigate or prosecute any alcohol or drug abuse valeria ent. [facility] HospitalIn the event this information is protected by the Federal Confidentiality of Alcohol and Drug Abuse Patient Records regulations: This inform ation has been disclosed to you from records protected by Federal confidentiality rul es ( The Federal rules restrict any use of the in formation to criminally investigate or prosecute any alcohol or drug abuse valeria ent. [facility] HospitalIn the event this information is protected by the Federal Confidentiality of Alcohol and Drug Abuse Patient Records regulations: This inform ation has been disclosed to you from records protected by Federal confidentiality rul es ( The Federal rules restrict any use of the in formation to criminally investigate or prosecute any alcohol or drug abuse valeria ent. [facility] HospitalIn the event this information is protected by the Federal Confidentiality of Alcohol and Drug Abuse Patient Records regulations: This inform ation has been disclosed to you from records protected by Federal confidentiality rul es ( The Federal rules restrict any use of the in formation to criminally investigate or prosecute any alcohol or drug abuse valeria ent. [facility] HospitalIn the event this information is protected by the Federal Confidentiality of Alcohol and Drug Abuse Patient Records regulations: This inform ation has been disclosed to you from records protected by Federal confidentiality rul es ( The Federal rules restrict any use of the in formation to criminally investigate or prosecute any alcohol or drug abuse valeria ent. [facility] HospitalIn the event this information is protected by the Federal Confidentiality of Alcohol and Drug Abuse Patient Records regulations: This inform ation has been disclosed to you from records protected by Federal confidentiality rul es ( The Federal rules restrict any use of the in formation to criminally investigate or prosecute any alcohol or drug abuse valeria ent. [facility] HospitalIn the event this information is protected by the Federal Confidentiality of Alcohol and Drug Abuse Patient Records regulations: This inform ation has been disclosed to you from records protected by Federal confidentiality rul es ( The Federal rules restrict any use of the in formation to criminally investigate or prosecute any alcohol or drug abuse valeria ent. [facility] HospitalIn the event this information is protected by the Federal Confidentiality of Alcohol and Drug Abuse Patient Records regulations: This inform ation has been disclosed to you from records protected by Federal confidentiality rul es ( The Federal rules restrict any use of the in formation to criminally investigate or prosecute any alcohol or drug abuse valeria ent. [facility] HospitalIn the event this information is protected by the Federal Confidentiality of Alcohol and Drug Abuse Patient Records regulations: This inform ation has been disclosed to you from records protected by Federal confidentiality rul es ( The Federal rules restrict any use of the in formation to criminally investigate or prosecute any alcohol or drug abuse valeria ent. [facility] HospitalIn the event this information is protected by the Federal Confidentiality of Alcohol and Drug Abuse Patient Records regulations: This inform ation has been disclosed to you from records protected by Federal confidentiality rul es ( The Federal rules restrict any use of the in formation to criminally investigate or prosecute any alcohol or drug abuse valeria ent. [facility] HospitalIn the event this information is protected by the Federal Confidentiality of Alcohol and Drug Abuse Patient Records regulations: This inform ation has been disclosed to you from records protected by Federal confidentiality rul es ( The Federal rules restrict any use of the in formation to criminally investigate or prosecute any alcohol or drug abuse valeria ent. [facility] HospitalIn the event this information is protected by the Federal Confidentiality of Alcohol and Drug Abuse Patient Records regulations: This inform ation has been disclosed to you from records protected by Federal confidentiality rul es ( The Federal rules restrict any use of the in formation to criminally investigate or prosecute any alcohol or drug abuse valeria ent. [facility] HospitalIn the event this information is protected by the Federal Confidentiality of Alcohol and Drug Abuse Patient Records regulations: This inform ation has been disclosed to you from records protected by Federal confidentiality rul es ( The Federal rules restrict any use of the in formation to criminally investigate or prosecute any alcohol or drug abuse valeria ent. [facility] HospitalIn the event this information is protected by the Federal Confidentiality of Alcohol and Drug Abuse Patient Records regulations: This inform ation has been disclosed to you from records protected by Federal confidentiality rul es ( The Federal rules restrict any use of the in formation to criminally investigate or prosecute any alcohol or drug abuse valeria ent. [facility] HospitalIn the event this information is protected by the Federal Confidentiality of Alcohol and Drug Abuse Patient Records regulations: This inform ation has been disclosed to you from records protected by Federal confidentiality rul es ( The Federal rules restrict any use of the in formation to criminally investigate or prosecute any alcohol or drug abuse valeria ent. [facility] Reason for Visit (unrecognized section a nd content) Reason Comments Medication Request Reason Comments Spirometry Specialty Diagnoses / Procedures Referred By Referred To Contact [facility] Diagnoses Stage 4 very severe COPD by GOLD classification ([facility]) ILD (interstitial lung disease) ([facility]) Jacquelin Patel Respiratory Inst itute Procedures SPIROMETRY BASELINE ONLY SPIROMETRY WO BRONCHODILATOR M, PA-C [address] [place] [address] Referral ID Status Reason Start Date Expiration Date Visits Requ ested Visits Authorized [id number] Closed 08/07/2021 04/18/2022 1 1 Specialty Diagnoses / Procedures Referred By Referred To Contact [facility] Diagnoses Stage 4 very severe COPD by GOLD classification ([facility]) ILD (interstitial lung disease) ([facility]) Jacquelin Patel Respiratory Inst itute Procedures LUNG DIFFUSION CAPACITY ([facility]) DIFFUSING CAPACITY M, PA-C [address] [place] [address] Referral ID Status Reason Start Date Expiration Date Visits Requ ested Visits Authorized [id number] Closed 08/07/2021 04/18/2022 1 1 Specialty Diagnoses / Procedures Referred By Referred To Contact [facility] Diagnoses Stage 4 very severe COPD by GOLD classification ([facility]) ILD (interstitial lung disease) ([facility]) Jacquelin Patel Respiratory Inst itute Procedures SIX MINUTE WALK CARDIOPULMONARY EXERCISE STRESS M, PA-C [address] [place] [address] [address] [place] [address] Referral ID Status Reason Start Date Expiration Date Visits V isits Requested Authorized [id number] Authorized 08/07/2021 04/18/2022 2 2 Reason Comments Established Patient COPD Specialty Diagnoses / Procedures Referred By Contact Refer red To Contact Pulmonary and Critical Diagnoses 6 Month F/U Jacquelin Patel, Jacquelin Patel, Care Medicine / Procedures RI EST COPD PA-C PA-C PULMONARY MEDICINE [address] [place] [address] [place] [address] Fax: Referral ID Status Reason Start Date Expiration Date Visits V isits Requested Authorized [id number] Closed Financial 08/07/2021 04/18/2022 1 1 Clearance Required - OON Payor Patient Cleared INN/SMCP Payor Auth Obtained Reason Onset Date Comments Refill Request 08/21/2021 Reason Comments Cardiology Follow Up no issues today Specialty Diagnoses / Referred By Contact Referred To Contact Procedures Cardiology / CARD Diagnoses 6 month follow up Yovani Piedra Michael MEDINA Procedures EST PATIENT L, DO L, DO [address] [place] [address] [place] [address] Fax: Referral ID Status Reason Start Date Expiration Date Visits Requ ested Visits Authorized [id number] Closed 09/08/2021 04/18/2022 1 1 Reason Onset Date Comments Refill Request 09/11/2021 Reason Comments Joint Pain Specialty Diagnoses / Procedures Referred By Contact Refer red To Contact Internal Medicine / Diagnoses JT Pain/3 months with me in office st labs prior Asia Calderón MD Sharma, Niharika, RHEUMATOLOGY Procedures EST PATIENT [address] Rafael BELTRÁN MD [address] [place] [address] [address] [place] [address] Phone: Fax: Referral ID Status Reason Start Date Expiration Date Visits Requ ested Visits Authorized [id number] Closed 09/18/2021 04/18/2022 1 1 Reason Comments Non-insulin Dependent Diabetes Mellitus blood sugar ch ecked by Dr. Becerra Floaters Both Eyes Pseudophakia both eyes Specialty Diagnoses / Procedures Referred By Contact Refer red To Contact Optometry / OPHTHALMOLOGY Diagnoses diabetic exam Self Isaac Panchal Procedures EST ADULT T, OD [address] [place], [place] [address] Phone: Fax: Referral ID Status Reason Start Date Expiration Date Visits Requ ested Visits Authorized [id number] Closed 09/19/2021 04/18/2022 1 1 Reason Comments Arthritis follow up Specialty Diagnoses / Procedures Referred By Contact Refer red To Contact Family Practice / Diagnoses Follow up Alexa Becerra, Alexa Becerra, FAMILY MEDICINE Procedures 4C EST PA-C PA-C [address] [place] [address] [place] [address] Fax: Referral ID Status Reason Start Date Expiration Date Visits Requ ested Visits Authorized [id number] Closed 09/23/2021 04/18/2022 1 1 Reason Onset Date Comments ACM INEZ RN 10/13/2021 Suspect Condition Re view Reason Comments Joint Pain Reason Comments APPROVED-NO PA REQ Orencia APPROVED NO PA REQ A [id number] 11.10.2021 - 11.10.2022 12 Reason Comments New Patient Rheumotologist sent for eval uation Reason Onset Date Comments Refill Request 11/04/2021 Reason Comments Infusion Specialty Diagnoses / Procedures Referred By Contact Refer red To Contact Diagnoses Rheumatoid arthritis involving multiple sites with positive rheumatoid factor (HCC) Asia Calderón MD Josue Treat [facility] Procedures [address] [facility] [address] [place] [address] [place] [address] Fax: Referral ID Status Reason Start Date Expiration Date Visits V isits Requested Authorized [id number] Authorized 10/22/2021 11/10/2022 12 13 Reason Comments Medication Problem Reason Comments Refill Request Reason Comments Rheumatoid Arthritis Reason Comments Follow Up Reason Onset Date Comments Population Health Navigation Outreach 01/12/2022 C care gaps Reason Comments COPD Reason Comments Orders RECLAST Reason Onset Date Comments Refill Request 03/04/2022 Reason Comments Patient Update Care Teams (unrecognized section and con tent) Senior Administrator Support Relationship Specialty Start Date End Date Alexa Becerra PA-C PCP - General Family Practice 02/13/19 [address] [place] [address] Yovani Piedar, DO Primary Staff Physician Cardiology 07/05/18 Senior Administrator Support Relationship Specialty Start Date End Date Alexa Becerra PA-C PCP - General Family Practice 02/13/19 [address] [place] [address] Yovani Piedra, DO Primary Staff Physician Cardiology 07/05/18 Senior Administrator Support Relationship Specialty Start Date End Date Alexa Becerra PA-C PCP - General Family Practice 02/13/19 [address] [place] [address] Yovani Pidera, DO Primary Staff Physician Cardiology 07/05/18 Senior Administrator Support Relationship Specialty Start Date End Date Alexa Becerra PA-C PCP - General Family Practice 02/13/19 [address] [place] [address] Yovani Piedra, DO Primary Staff Physician Cardiology 07/05/18 Senior Administrator Support Relationship Specialty Start Date End Date Alexa Becerra PA-C PCP - General Family Practice 02/13/19 [address] [place] [address] Yovani Piedra, DO Primary Staff Physician Cardiology 07/05/18 Senior Administrator Support Relationship Specialty Start Date End Date Becerra, M Adelina, PA-C PCP - General Family Practice 02/13/19 [address] [place] [address] Yovani Piedra, DO Primary Staff Physician Cardiology 07/05/18 Senior Administrator Support Relationship Specialty Start Date End Date Alexa Becerra PA-C PCP - General Family Practice 02/13/19 [address] [place] [address] Yovani Piedra, DO Primary Staff Physician Cardiology 07/05/18 Senior Administrator Support Relationship Specialty Start Date End Date Alexa Becerra PA-C PCP - General Family Practice 02/13/19 [address] [place] [address] Yovani Piedra, DO Primary Staff Physician Cardiology 07/05/18 Senior Administrator Support Relationship Specialty Start Date End Date Alexa Becerra PA-C PCP - General Family Practice 02/13/19 [address] [place] [address] Yovani Piedra, DO Primary Staff Physician Cardiology 07/05/18 Senior Administrator Support Relationship Specialty Start Date End Date Alexa Becerra PA-C PCP - General Family Practice 02/13/19 [address] [place] [address] Yovani Piedra, DO Primary Staff Physician Cardiology 07/05/18 Senior Administrator Support Relationship Specialty Start Date End Date Alexa Becerra PA-C PCP - General Family Practice 02/13/19 [address] [place] [address] Yovani Piedra, DO Primary Staff Physician Cardiology 07/05/18 Senior Administrator Support Relationship Specialty Start Date End Date Alexa Becerra PA-C PCP - General Family Practice 02/13/19 [address] [place] [address] Yovani Piedra, DO Primary Staff Physician Cardiology 07/05/18 Senior Administrator Support Relationship Specialty Start Date End Date Alexa Becerra PA-C PCP - General Family Practice 02/13/19 [address] [place] [address] Yovani Piedra, DO Primary Staff Physician Cardiology 07/05/18 Senior Administrator Support Relationship Specialty Start Date End Date Alexa Becerra PA-C PCP - General Family Medicine 02/13/19 [address] [place] [address] Yovani Piedra, DO Primary Staff Physician Cardiology 07/05/18 Senior Administrator Support Relationship Specialty Start Date End Date Alexa Becerra PA-C PCP - General Family Medicine 02/13/19 [address] [place] [address] Yovani Piedra, DO Primary Staff Physician Cardiology 07/05/18 Senior Administrator Support Relationship Specialty Start Date End Date Alexa Becerra PA-C PCP - General Family Medicine 02/13/19 [address] [place] [address] Yovani Piedra, DO Primary Staff Physician Cardiology 07/05/18 Senior Administrator Support Relationship Specialty Start Date End Date Alexa Becerra PA-C PCP - General Family Medicine 02/13/19 [address] [place] [address] Yovani Piedra, DO Primary Staff Physician Cardiology 07/05/18 Senior Administrator Support Relationship Specialty Start Date End Date Alexa Becerra PA-C PCP - General Family Medicine 02/13/19 [address] [place] [address] Yovani Piedra, DO Primary Staff Physician Cardiology 07/05/18 Senior Administrator Support Relationship Specialty Start Date End Date Alexa Becerra PA-C PCP - General Family Medicine 02/13/19 [address] [place] [address] Yovani Piedra, DO Primary Staff Physician Cardiology 07/05/18 Senior Administrator Support Relationship Specialty Start Date End Date Alexa Becerra PA-C PCP - General Family Medicine 02/13/19 [address] [place] [address] Yovani Piedra, DO Primary Staff Physician Cardiology 07/05/18 Senior Administrator Support Relationship Specialty Start Date End Date Alexa Becerra PA-C PCP - General Family Medicine 02/13/19 [address] [place] [address] Yovani Piedra, DO Primary Staff Physician Cardiology 07/05/18 Senior Administrator Support Relationship Specialty Start Date End Date Alexa Becerra PA-C PCP - General Family Medicine 02/13/19 [address] [place] [address] Yovani Piedra, DO Primary Staff Physician Cardiology 07/05/18 [address] [place] [address] Senior Administrator Support Relationship Specialty Start Date End Date Alexa Becerra PA-C PCP - General Family Medicine 02/13/19 [address] [place] [address] Yovani Piedra, DO Primary Staff Physician Cardiology 07/05/18 [address] [place] [address] Senior Administrator Support Relationship Specialty Start Date End Date Alexa Becerra PA-C PCP - General Family Medicine 02/13/19 [address] [place] [address] Yovani Piedra, DO Primary Staff Physician Cardiology 07/05/18 [address] [place] [address] Senior Administrator Support Relationship Specialty Start Date End Date Alexa Becerra PA-C PCP - General Family Medicine 02/13/19 [address] [place] [address] Yovani Piedra, DO Primary Staff Physician Cardiology 07/05/18 [address] [place] [address] FOR RECORDS PERTAINING TO PATIENTS WHO ARE OR HAVE BEEN ENROLLED IN A CHEMICAL DEPENDENCY/SUBSTANCE ABUSE PROGRAM, SOME INFORMATION MAY BE OMITTED. This clinical summary was aggregated from multiple sources. Caution should be exercised in using it in the provision of clinical care. This summary normalizes information from multiple sources, and as a consequence, information in this document may materially change the coding, format and clinical context of patient data. In addition, data may be omittedin some cases. CLINICAL DECISIONS SHOULD BE BASED ON THE PRIMARY CLINICAL RECORDS. [facility]. provides no warranty or guarantee of the accuracy or completeness of information in this document.
--- NOTE | 2022-04-06 14:59 | EKG12_ITS ---
Test Reason : UNRESP Blood Pressure : / mmHG Vent. Rate : 110 BPM Atrial Rate : 000 BPM P-R Int : 000 ms QRS Dur : 066 ms QT Int : 334 ms P-R-T Axes : 000 039 041 degrees QTc Int : 452 ms Somatic/Motion Artifact Atrial fibrillation with rapid ventricular response Abnormal ECG Confirmed by YUMI NGUYEN, JERAMIE ([id number]), editor sound MIKAL MCDOWELL ([id number]) on 04/08/2022 10:17:54 AM Referred By: MITCH Confirmed By:JERAMIE EASON MD
[2022-04-06 15:05] LABS: Base Excess -4 mmol/L (-2 to +2); Blood Gas Specimen Type ART; O2 Delivery Device Cannula; PO2 35 mmHG (75-100); SITE L Brach; SO2 49 % (95-99); Total Carbon Dioxide 27 mmol/L; pH 7.16 (7.35-7.45)
--- OUTSIDE RECORDS SUMMARY | 2022-04-06 15:24 | XMS RPT_ITS | CCD ---
:1955 Author Organization [facility] Care Team Providers Name Role Phone Alexa Becerra PA-C Primary Care Provider Yovani Piedra DO [...] Unavailable YURIDIA FENGMIT Attending Unavailable BECERRA, M ADLEINA Primary Care Unavailable CALDERÓN, ASIA Referring Unavailable [...] Allergen(s) Onset Tree; Allergy to Other: See [place] (20 sources) Translations: substance 1 Comments Clinic [TREES] Ragweed; Allergy to Other: See [place] (20 sources) Translations: substance 1 Comments Clinic [RAGWEED] Nortriptyline; Drug Allergy Intolerance [facility] (20 sources) Translations: 2 Work Phon e: [...] age 5 severe COPD by GOLD classification ([facility]) Use 2 mL via nebulize r once [...] sources) Chronic obstruc tive pulmonary disease, unspecified MANAGER QUANTITATIVE D type ([facility]) Provide nebulizer acces brent kit. DME: [employer]. 1 Each 5 2018 Active Start: 11-29-2018 COMPOUNDED PRESCRIPT ION Indications: Panlobular emphysema ([facility]) , ILD (interstitial lexus ng disease) ([facility]) Accessories for nebulizer J43.1 Panlobular emp hysema ([facility]) (primary encounter diagnosis) J84.9 ILD (interstit ial lung disease) ([facility]) 1 Each 1 11/29/2018 Active Start: 08-30-2018 COMPOUNDED PRESCRIPT ION Indications: Centrilobular emphysema ([facility]) , ILD (interst itial lung disease) ([facility]) , Chronic respiratory failure with hypoxia ([facility]) #1 Continuous Flow Stationary O2 Concen trator Sig: O2 2l/min liter flow Patient is to keep portablel co ncentrator as well J43.2 Centrilobular emphysema ([facility]) J84. 9 ILD (interstitial lung disease) ([facility]) J96.11 Chronic respi ratory failure with hypoxia ([facility]) 1 Each 0 08/30/2018 Active Start: 03-24-2018 [...] concentrator as well J43.2 Centrilobular emphysem a ([facility]) J84.9 ILD (interstitial lung disease) ([facility]) J96.11 Chronic respiratory f ailure with hypoxia ([facility]) Accessories for nebulizer J43.1 Panlobular emphysema ( [facility]) (primary encounter diagnosis) J84.9 ILD (interstitial lung disease) ([facility]) Provide nebulizer accessory kit. DME: [employer]. ergocalciferol [...] 3 severe COPD by GOLD classif ication ([facility]) , Chronic respira tory failure with hypoxia ([facility]) , Centrilobular emphysema ([facility]) , ILD (interstitial l angela disease) ([facility]) Portable oxygen concentrator 3l/min at all t [...] Epi sodic (1 source) of anticoagulant; Translations: [halfway (current) use of anticoagulants] Other aftercare Taking high risk Episodic (2 sources) medication; Translations: [Other trackwalker (current) drug therapy] Other 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) Onset: Episo dic (1 source) use [...] (1 source) apnea (adult) 09-23-2021 (pediatric); Translations: [CESAR (obstructive sleep apnea)] Respiratory failure; insufficiency; arrest [...] sources) of immunosuppressive 05-19-2017 drug; Translations: [Other mcc (current) drug therapy] Other aftercare Long-term current use Onset: 06-28-2017 Epi sodic (20 sources) of systemic steroid; 06-28-2017 Translations: [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) use of systemic steroids] Other aftercare halfway (current) use Onset: E pisodic (2 sources) of systemic steroids; 06-28-2017 Translations: [sound recording technician current use of systemic steroids] Other aftercare Other trackwalker Onset: Episodic (1 source) (current) drug therapy; 05-19-2017 Translations: [sound recording technician current use of immunosuppressive drug] Other ear [...] Test Name Value Interpretation Reference Range Facility [facility] on 03-30-2022 CNPN Telephone (FAMPWS) Normal [place] [facility] VIVIANA SANTANA ([id number]) 1955 [facility] Date Time Provider Department 03/30/22 Alexa BECERRA [facility] During your visit today, we recorded the [...] bags of IV fluid and sent ho ut. No new medications ordered. Pt is not [...] neut 17.5 this may have been from trackwalker prednisone though it was stopped mid . [...] emphysema (HCC) J84.9 ILD (interstitial lung disease) ([facility]) J96.11 Chronic respiratory failure with hypoxia (HCC) [...] 08/25/2018 Lung nodule, multiple [R91.8] 01/03/2017 Iatrogenic [place]'s disease (HCC) [E24.2] 05/19/2017 05/19/2017 Iatrogenic adrenal insufficiency (HCC) [E27.49] 2017 Chronic respiratory failure with hypoxi (more content not included)... CNOV on 03-17-2022 CNOV Office Visit (CARDMM) Normal [place] [facility] VIVIANA SANTANA ([id number]) 1955 F [facility] Time Provider Department 03/17/22 3:00 PM YOVANI PIEDRA During your visit today, we recorded the following inf ormation about you: Pulse Blood pressure Weight Height 106/minute 110/60 79.6 kg 1.6 m Yovani Piedra DO 03/17/2022 3:48 PM Signed [facility] Heart [facility] V[facility] [place] Sanjiv Sprague Department of Cardiovascula r Medicine [...] respiratory failure again. She did got to [facility] for pneumonia admit in January 2019: Preadmission evaluation: SOB and cough x 2 days. No fe kameron. had URI. Which facility: [facility] Dates of visit: !-02/02/19 Primary Diagnosis/es: MSSA, [...] majority of her time. She was admitted [facility] in April with sepsis and pneumonia [...] She follows with nubia owens at the [facility] now. There was a note that they [...] Ventricular Rate : 106 BPM Normal C [facility] Atrial Rate : 106 BPM P-R Interval : 162 ms QRS Duration : 70 ms Q-T Interval : 314 ms QTC Calculation(Bazett) : 417 ms Calculated P [place] : 60 degrees Calculated R [place] : 22 degrees Calculated T [place] : 55 degrees SINUS TACHYCARDIA WITH PREMATURE ATRIAL COMPLEXES OTHERWISE NORMAL ECG Confirmed by YOVANI PIEDRA D.O. ([id number]) on 03/20/20 1:30:10 PM NAME : VIVIANA SANTANA PID : [id number] : 1955 Gender : Female Race : ORD : [id number] Procedure Date : Mar 17 2022 14:55:05 Edit Date : Mar 20 2022 13:30:16 Diagnosis: SINUS TACHYCARDIA WITH PREMATURE ATRIAL COM PLEXES OTHERWISE NORMAL ECG Confirmed by YOVANI PIEDRA D.O. ([id number]) on 03/20/20 1:30:10 PM Test Reason : Location : 158 : [facility] Overread By : YOVANI PIEDRA D.O. Edited By : YOVANI PIEDRA D.O. Referred By : YOVANI PIEDRA Acquired by : PH, CREATININE BLD on 03-16-2022 Creatinine [Mass/Vol] 0.72 mg/dL Normal 0.51-0.95 [facility] Comment on above: Order Comment: Specimen Type : BLOOD SPECIMENOrdering Facility: [facility] Address: [place] [address] Performed By: #### CRET1 ### #[facility] LABCLIA [id number] [place] [address] [facility] ESTIMATED GLOMERULAR 94 mL/min/1.73m??? Normal >=60 A [facility] FILTRATION RATE Drake Comment on above: Order Comment: Specimen Type : BLOOD SPECIMENOrdering Facility: [facility] Address: [place] [address] Result Comment: Estimated Gl omerular Filtration Rate [...] actual GFR. Performed By: #### CRET1 ### #[facility] LABCLIA [id number] [place] [address] [place] Creatinine [Mass/Vol] 0.72 mg/dL 0.51 - 0.95 mg/dL C [facility] Estimated Glomerular 94 mL/min/1.73m >=60 mL/min/1.73m [facility] Filtration Rate [facility] on 03-04-2022 [facility] HNO ID: [id number] Normal [facility] Author: Mammography Coordinator Service: ? Author Type: Physician Type: Letter Filed: 03/05/2022 11:34 PM Note Text: March 04, 2022 PID: [id number] Viviana Santana [address] [place] [id number] Dear Ms. Santana, Your recent breast imaging exam on 03/04/2022 showed a possible finding that requires additional imaging studies for a complet e evaluation. Most such findings are probably benign (not cancer). If you have a healthcare provider who ordered/prescrib ed your screening mammogram: Please call [phone] or [phone]: [phone] to schedule an appointment for your additional [...] and reports are kept on file at [facility] as part of your permanent medical record, and are availab le for your continuing care. Thank you for allowing us to help in meeting your [facility] care needs. Sincerely, Dr. Henderson Interpreting Radiologist [facility] (Additional imaging) [facility] SCREENING on 03-04-2022 [facility] SCREENING * * *Final Report* * * Normal [facility] DATE OF EXAM: Mar 04 2022 1:53PM [facility] 0581 - [facility] SCREENING / PROCEDURE REASON: Encounter for screening mammogram fo r breast cancer * * * * Physician Interpretation * * * * RESULT: #[id number] - [facility] SCREENING BILATERAL DIGITAL SCREENING MAMMOGRAM [...] mammogram, 12/23/2017 mammogram, and 12/10/2016 mammogram - [facility]. There are scattered fibroglandular elements in both br easts. There is an asymmetry in the left breast outer region seen on the craniocaudal view only. No other significant masses, calcifications, or other findings are seen in either breast. IMPRESSION: INCOMPLETE: NEEDS ADDITIONAL IMAGING EVALU ATION The asymmetry in the left breast is indeterminate. Add itional views are recommended. Latonya Henderson M.D., ch/lanette:03/04/2022 16:31:53 [place] Round(s): RT Rosa M(R)(M), [facility] letter sent: Additional Imaging Needed Mammogram BI-RADS: 0 Incomplete: needs additional imag ing evaluation If this report indicates you need additional imaging, and it has NOT yet been performed, please call , to schedule. We sincerely thank you for choosing the [facility] for your breast imaging needs. Multiple national [...] Health, Family Medicine, and Medical/Surgical Oncology, the [facility] has carefully reviewed the data and [...] their providers when to stop screening mammograms. District Customs Director: Lanette Transcribe Date/Time: Mar 04 2022 1:39P Dictated by: LATONYA HENDERSON MD This examination was interpreted and the report review ed and electronically signed by: LATONYA HENDERSON MD on Mar 04 2022 4:31PM EST [id number] CT CHEST WO IVCON on 02-23-2022 CT CHEST WO IVCON * * *Final Report* * * Normal [facility] DATE OF EXAM: Feb 23 2022 1:35PM [facility] 0541 - CT CHEST WO IVCON / [...] abnormality in the imaged upper abdo men. Taxonomist (topogram) images: No additional findings. IMPRESSION: Findings are suggestive of interstitial lung disease w ith emphysema. The pattern and distribution are more compatible with UIP. Scattered tiny nodules in the bilateral lungs. Borderline enlarged mediastinal lymph nodes, similar t o prior study. District Customs Director: PSCB Transcribe Date/Time: Feb 24 2022 3:47P Dictated by : MAYRA ANDREA MD This examination was interpreted and the report review ed and electronically signed by: MAYRA ANDREA MD on Feb 24 2022 3:54PM EST [id number] CNPN on 02-10-2022 [facility] Telephone [facility] VIVIANA SANTANA ([id number]) 1955 F Medical Date Time Provider Department Center 02/10/22 ASIA CALDERÓN During your visit today, we recorded the following inf ormation about you: Sayda Jimenez LPN 02/10/2022 10:23 AM Signed Patient does not have active orders for Reclast. Please place orders so we can get her scheduled at [facility]. Thanks, ROBERTA Villalobos MD 02/10/2022 10:30 [...] emphysema (HCC) J84.9 ILD (interstitial lung disease) ([facility]) J96.11 Chronic respiratory failure with hypoxia (HCC) [...] *2017 Rheumatoid arthritis involving multiple sites w*2017 halfway current use of immunosuppressive drug*2017 Paroxysmal atrial [...] Visit (PULMWS) Normal [place] [facility] VIVIANA Simpson ([id number]) 1955 [facility] Date Time Provider Department 02/06/22 2:45 PM JUNIOR MATHEW PULMWS During your visit today, we recorded the following inf ormation about you: Pulse Respiration Blood pressure Weight 88/minute 20/minute 106/74 84.4 kg Height 1.6 m Junior Mathew MD 02/06/2022 8:36 PM Signed . Respiratory [place] Note Patient name: Viviana Santana PCP: Alexa [...] on inhaled therapy. Established with a new provisioning specialist due to insurance change in coverage. Current [...] Abs Lymph 1.00 - 4.00 k/uL 1.56 Traill% % 5.5 Abs Traill <0.87 k/uL 0.69 Eosin% % 3.3 Abs Eosin <0.46 k/uL 0.42 Baso% % 1.0 Abs Baso <0.11 k/uL 0.13 High Immature Gran % % 0.4 Abs Immature Gran <0.10 k/uL 0.05 NRBC /100 WBC 0.0 Absolute nRBC <0.01 k/uL <0.01 Diff Type Auto Imaging / Diagnostic Studies: Reviewed CT from [facility] 08/2020: I personally reviewed images which show [...] Take 1 tablet by mouth twice daily. [employer] Portable ox ygen concentrator 3l/min at all times. omeprazole (PRILOSEC) 40 mg capsule Take 1 capsule by mouth as needed. COMPOUNDED PRESCRIPTION Provide nebulizer accessory severiano morrissey DME: [employer]. COMPOUNDED PRESCRIPTION Accessories for nebulizer J43.1 Mallorie (more content not included)... CNOV on 01-30-2022 CNOV Office Visit (RHBATH) Normal [facility] VIVIANA SANTANA ([id number]) 1955 F Medical Date Time Provider Department [...] with RA 2016. She was admitted at [facility] - double pneumonia, RA. She was [...] DM2, polyneuropathy. She follows with pulm in [place]. RA, chronic steroids, adrenal insuff Family h/o [...] b (more content not included )... 25(OH)D3 [facility] on 01-19-2022 25-hydroxyvitamin D3 [Mass/Vol] 50.1 ng/mL Normal >=30.0 [facility] Comment on above: Order Comment: Specimen Type : BLOOD SPECIMENOrdering Facility: [facility] Address: [address] [place] [address] Result Comment: Classificati on of 25 [place] Vitamin D status: Deficiency: <= 20.0 ng/ml. Insufficiency: 21.0-29.0 ng/ ml. Sufficiency: >= 30.0 ng/ml. Performed By: #### 1989-3 ## ##[facility] LABORATORYCLIA [id number] [address] [place] CBC W Auto Differential panel (Bld) on 01-19-2022 Basophils (Bld) [#/Vol] 0.13 10*3/uL High <0.11 [facility] Comment on above: Order Comment: Specimen Type : BLOOD SPECIMENOrdering Facility: [facility] Address: [address] [place] [address] Performed By: #### 33956-0 # ###[facility] LABORATORYCLIA [id number] [address] [place] Basophils/100 WBC (Bld) 1.0 % Normal [facility] Comment on above: Order Comment: Specimen Type : BLOOD SPECIMENOrdering Facility: [facility] Address: [address] [place] [address] Performed By: #### 39783-4 # ###[facility] LABORATORYCLIA [id number] [address] [place] Differential cell count method Nom (Bld) Auto Normal [facility] Comment on above: Order Comment: Specimen Type : BLOOD SPECIMENOrdering Facility: [facility] Address: [address] [place] [address] Performed By: #### 09425-3 # ###[facility]ATORYCLIA [id number] [address] [place] Eosinophils (Bld) [#/Vol] 0.42 10*3/uL Normal <0.46 [facility] Comment on above: Order Comment: Specimen Type : BLOOD SPECIMENOrdering Facility: [facility] Address: [address] [place] [address] Performed By: #### 21052-2 # ###[facility]ORATORYCLIA [id number] [address] Eosinophils/100 WBC (Bld) 3.3 % Normal [facility] Comment on above: Order Comment: Specimen Type : BLOOD SPECIMENOrdering Facility: [facility] Address: [address] [place] [address] Performed By: #### 92394-3 # ###[facility] LABORATORYCLIA [id number] [address] Erythrocyte distribution width 13.5 % Normal 11.5-15.0 [facility] (RBC) [Ratio] Comment on above: Order Comment: Specimen Type : BLOOD SPECIMENOrdering Facility: [facility] Address: [address] [place] [address] Performed By: #### 97506-7 # ###[facility]ORATORYCLIA [id number] [address] [place] Hematocrit (Bld) [Volume 38.4 % Normal 36.0-46.0 [facility] fraction] Comment on above: Order Comment: Specimen Type : BLOOD SPECIMENOrdering Facility: [facility] Address: [address] [place] [address] Performed By: #### 36735-1 # ###[facility]ORATORYCLIA [id number] [address] [place] Hemoglobin (Bld) [Mass/Vol] 11.3 g/dL Low 11.5-15.5 [facility] Comment on above: Order Comment: Specimen Type : BLOOD SPECIMENOrdering Facility: [facility] Address: [address] [place] [address] Performed By: #### 15322-7 # ###[facility]ORATORYCLIA [id number] [facility] [place] [id number] [place] [address] OF [facility] IMMATURE GRAN % 0.4 % Normal [facility] Comment on above: Order Comment: Specimen Type : BLOOD SPECIMENOrdering Facility: [facility] Address: [address] [place] [address] Performed By: #### 42010-1 # ###[facility]ORATORYCLIA [id number] [facility] [place], [address] IMMATURE GRAN ABS 0.05 k/uL Normal <0.10 [facility] Comment on above: Order Comment: Specimen Type : BLOOD SPECIMENOrdering Facility: [facility] Address: [address] [place] [address] Performed By: #### 59453-7 # ###[facility]ORATORYCLIA [id number] [facility] [place], [address] STATES OF [facility] Lymphocytes (Bld) [#/Vol] 1.56 10*3/uL Normal 1.00-4.00 [facility] Comment on above: Order Comment: Specimen Type : BLOOD SPECIMENOrdering Facility: [facility] Address: [address] [place] [address] Performed By: #### 81535-0 # ###[facility]ORATORYCLIA [id number] [facility] [place], [address] Lymphocytes/100 WBC (Bld) 12.4 % Normal [facility] Comment on above: Order Comment: Specimen Type : BLOOD SPECIMENOrdering Facility: [facility] Address: [address] [place] [address] Performed By: #### 26717-5 # ###[facility]ORATORYCLIA [id number] [facility] [place], [address] [place] MCH (RBC) [Entitic mass] 30.3 pg Normal 26.0-34.0 [facility] Comment on above: Order Comment: Specimen Type : BLOOD SPECIMENOrdering Facility: [facility] Address: [address] [place] [address] Performed By: #### 11797-5 # ###[facility] LABORATORYCLIA [id number] [address] STATES OF [facility] MCHC (RBC) [Mass/Vol] 29.4 g/dL Low 30.5-36.0 [facility] Comment on above: Order Comment: Specimen Type : BLOOD SPECIMENOrdering Facility: [facility] Address: [address] [place] [address] Performed By: #### 74765-6 # ###[facility] LABORATORYCLIA [id number] [address] STATES OF [facility] MCV (RBC) [Entitic vol] 102.9 fL High 80.0-100.0 [facility] Comment on above: Order Comment: Specimen Type : BLOOD SPECIMENOrdering Facility: [facility] Address: [address] [place] [address] Performed By: #### 57326-1 # ###[facility] LABORATORYCLIA [id number] [address] Monocytes (Bld) [#/Vol] 0.69 10*3/uL Normal <0.87 [facility] Comment on above: Order Comment: Specimen Type : BLOOD SPECIMENOrdering Facility: [facility] Address: [address] [place] [address] Performed By: #### 93966-1 # ###[facility] LABORATORYCLIA [id number] [address] Monocytes/100 WBC (Bld) 5.5 % Normal [facility] Comment on above: Order Comment: Specimen Type : BLOOD SPECIMENOrdering Facility: [facility] Address: [address] [place] [address] Performed By: #### 30978-1 # ###[facility]ORATORYCLIA [id number] [facility] [place] [id number] [place] [address] [place] Neutrophils (Bld) [#/Vol] 9.72 10*3/uL High 1.45-7.50 [facility] Comment on above: Order Comment: Specimen Type : BLOOD SPECIMENOrdering Facility: [facility] Address: [address] [place] [address] Performed By: #### 25728-9 # ###[facility]ORATORYCLIA [id number] [facility] [place], [address] [place] Neutrophils/100 WBC (Bld) 77.4 % Normal [facility] Comment on above: Order Comment: Specimen Type : BLOOD SPECIMENOrdering Facility: [facility] Address: [address] [place] [address] Performed By: #### 16802-0 # ###[facility]ORATORYCLIA [id number] [facility], [address] [place] Nucleated RBC (Bld) [#/Vol] 10*3/uL Normal <0.01 [facility] Comment on above: Order Comment: Specimen Type : BLOOD SPECIMENOrdering Facility: [facility] Address: [address] [place] [address] Performed By: #### 49816-6 # ###[facility]ORATORYCLIA [id number] [facility], [address] [place] Nucleated RBC/100 WBC (Bld) 0.0 /100 WBC Normal [facility] [Ratio] Comment on above: Order Comment: Specimen Type : BLOOD SPECIMENOrdering Facility: [facility] Address: [address] [place] [address] Performed By: #### 99199-3 # ###[facility]ATORYCLIA [id number] [facility], [address] Platelet mean volume (Bld) 10.6 fL Normal 9.0-12.7 [facility] [Entitic vol] Comment on above: Order Comment: Specimen Type : BLOOD SPECIMENOrdering Facility: [facility] Address: [address] Performed By: #### 34743-4 # ###[facility]ORATORYCLIA [id number] [place] [address] [facility] OF [facility] Platelets (Bld) [#/Vol] 294 10*3/uL Normal 150-400 [facility] Comment on above: Order Comment: Specimen Type : BLOOD SPECIMENOrdering Facility: [facility] Address: [facility] KINGJacey [address] Performed By: #### 84693-0 # ###[facility]ORATORYCLIA [id number] [place] [address] [facility] OF [facility] RBC (Bld) [#/Vol] 3.73 10*6/uL Low 3.90-5.20 [facility] Comment on above: Order Comment: Specimen Type : BLOOD SPECIMENOrdering Facility: [facility] Address: [facility] [address] Performed By: #### 33536-3 # ###[facility] LABORATORYCLIA [id number] [facility] [place] [address] [place] [address] [place] [facility] WBC (Bld) [#/Vol] 12.57 10*3/uL High 3.70-11.00 [facility] Comment on above: Order Comment: Specimen Type : BLOOD SPECIMENOrdering Facility: [facility] Address: [address] Performed By: #### 17828-1 # ###[facility] LABORATORYCLIA [id number] [place] [address] [facility] Comprehensive metabolic 2000 panel on 1 Albumin [Mass/Vol] 3.6 g/dL Low 3.9-4.9 [facility] Comment on above: Order Comment: Specimen Type : BLOOD SPECIMENOrdering Facility: [facility] Address: [address] [place] [address] Performed By: #### 83347-1 # ###[facility]ORATORYCLIA [id number] [facility] [place] [address] [place] [address] [place] ALP [Catalytic activity/Vol] 105 U/L Normal 34-123 [facility] Comment on above: Order Comment: Specimen Type : BLOOD SPECIMENOrdering Facility: [facility] Address: [address] [place] [address] Performed By: #### 49291-7 # ###[facility]ORATORYCLIA [id number] [facility] [place], [address] [place] ALT With P-5'-P [Catalytic 8 U/L Normal 7-38 A [facility] activity/Vol] Comment on above: Order Comment: Specimen Type : BLOOD SPECIMENOrdering Facility: [facility] Address: [address] [place] [address] Performed By: #### 14260-8 # ###[facility]ORATORYCLIA [id number] [facility] [place], [address] [place] Anion gap [Moles/Vol] 11 mmol/L Normal 9-18 [facility] Comment on above: Order Comment: Specimen Type : BLOOD SPECIMENOrdering Facility: [facility] Address: [address] [place] [address] Performed By: #### 25761-0 # ###[facility]ORATORYCLIA [id number] [facility] [place], [address] [place] AST With P-5'-P [Catalytic 17 U/L Normal 13-35 A [facility] activity/Vol] Comment on above: Order Comment: Specimen Type : BLOOD SPECIMENOrdering Facility: [facility] Address: [address] [place] [address] Performed By: #### 37347-9 # ###[facility] LABORATORYCLIA [id number] [facility], [address] [place] Bilirubin [Mass/Vol] 0.2 mg/dL Normal 0.2-1.3 [facility] Comment on above: Order Comment: Specimen Type : BLOOD SPECIMENOrdering Facility: [facility] Address: [address] [place] [address] Performed By: #### 14379-0 # ###[facility]ORATORYCLIA [id number] [place] [address] [place] Calcium [Mass/Vol] 8.7 mg/dL Normal 8.5-10.2 [facility] Comment on above: Order Comment: Specimen Type : BLOOD SPECIMENOrdering Facility: [facility] Address: [address] [place] [address] Performed By: #### 04630-0 # ###[facility]ORATORYCLIA [id number] [place] [address] [place] Chloride [Moles/Vol] 99 mmol/L Normal 97-105 [facility] Comment on above: Order Comment: Specimen Type : BLOOD SPECIMENOrdering Facility: [facility] Address: [address] [place] [address] Performed By: #### 47182-1 # ###[facility] LABORATORYCLIA [id number] [facility] [place] [address] [place] [address] [place] CO2 [Moles/Vol] 27 mmol/L Normal 22-30 [facility] Comment on above: Order Comment: Specimen Type : BLOOD SPECIMENOrdering Facility: [facility] Address: [address] [place] [address] Performed By: #### 60700-1 # ###[facility]ORATORYCLIA [id number] [facility] [place] [address] [place] [address] [place] Creatinine [Mass/Vol] 0.82 mg/dL Normal 0.58-0.96 [facility] Comment on above: Order Comment: Specimen Type : BLOOD SPECIMENOrdering Facility: [facility] Address: [address] [place] [address] Performed By: #### 57075-1 # ###[facility]ORATORYCLIA [id number] [facility] [place] [address] [place] [address] [place] ESTIMATED GLOMERULAR 80 mL/min/1.73m??? Normal >=60 A [facility] Comment on above: Order Comment: Specimen Type : BLOOD SPECIMENOrdering Facility: [facility] Address: [address] [id number] Result Comment: Estimated Gl omerular Filtration Rate [...] accurately reflect actual GFR. Performed By: #### 27224-5 # ###[facility] LABORATORYCLIA [id number] [place] [address] [place] Glucose [Mass/Vol] 86 mg/dL Normal 74-99 [facility] Comment on above: Order Comment: Specimen Type : BLOOD SPECIMENOrdering Facility: [facility] Address: [address] Result Comment: The [place] Diabetes Association (ADA) provides guidance for cutoff [...] for diagnosis of diabetes. Reference: Standards of [facility] Care in Diabetes 2016, [place] [employer]. Diabetes Care. 2016.39(Suppl 1). Performed By: #### 91960-5 # ###[facility] LABORATORYCLIA [id number] [place] [address] [place] Potassium [Moles/Vol] 4.2 mmol/L Normal 3.7-5.1 [facility] Comment on above: Order Comment: Specimen Type : BLOOD SPECIMENOrdering Facility: [facility] Address: [address] [id number] Performed By: #### 33139-8 # ###[facility]ORATORYCLIA [id number] [facility], [address] STATES OF [facility] Protein [Mass/Vol] 6.8 g/dL Normal 6.3-8.0 [facility] Comment on above: Order Comment: Specimen Type : BLOOD SPECIMENOrdering Facility: [facility] Address: [address] [place] [address] Performed By: #### 26054-3 # ###[facility] LABORATORYCLIA [id number] [facility], [address] Sodium [Moles/Vol] 137 mmol/L Normal 136-144 [facility] Comment on above: Order Comment: Specimen Type : BLOOD SPECIMENOrdering Facility: [facility] Address: [address] [place] [address] Performed By: #### 79460-3 # ###[facility] LABORATORYCLIA [id number] [address] STATES OF [facility] Urea nitrogen [Mass/Vol] 16 mg/dL Normal 7-21 [facility] Comment on above: Order Comment: Specimen Type : BLOOD SPECIMENOrdering Facility: [facility] Address: [address] [place] [address] Performed By: #### 83994-9 # ###[facility]ORATORYCLIA [id number] [facility], [address] OF [facility] CNOV on 01-01-2022 CNOV Office Visit (SPAGWO) Normal Byars VIVIANA Beverly ([id number]) 1955 F Medical Date Time Provider Department [...] The patient is not nervous/anxious. 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 01/01/2022 2:42 PM Signed [facility] General Today's Date: 01/01/2022 Last Visit: 10/30/21 [...] CNOV Office Visit (FAMJoseWS) Normal [facility] VIVIANA SANTANA ([id number]) 1955 [facility] Date Time Provider Department 12/26/21 2:40 PM Alexa BECERRA During your visit today, we recorded the following inf ormation about you: Pulse Blood pressure Weight Height 89/minute 124/72 80.6 kg 1.6 m M Adelina Becerra PA-C 12/27/2021 12:50 PM Signed 66 year old female with c/o here for [employer]. 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 COMPARISON: Spine: None. Femur: None. [...] femoral neck, greater trochanter, or total hip) District Customs Director: PSCB Transcribe Date/Time: Dec 11 2021 9:09A Dictated by : CHRIS JOHNSON MD This examination was interpreted and the report review ed and electronically signed by: CHRIS JOHNSON MD on Dec 11 2021 9:10AM EST [id number] CNPN on 11-27-2021 CNPN Telephone (RGMOB) [facility] VIVIANA Simpson ([id number]) 1955 [facility] Time Provider Department 11/27/21 RICK FENG During your visit today, we recorded the following inf ormation about you: Ismael Apple 11/27/2021 12:33 PM Signed Patient does not want to take nortriptytline 25 mg, requesting new medication due to this one making her dizzy. Please advise, call back to [phone]. Thank you. Rick Feng MD 11/27/2021 12:40 [...] 08/25/2018 Lung nodule, multiple [R91.8] 01/03/2017 Iatrogenic [place]'s disease (HCC) [E24.2] 05/19/2017 05/19/2017 Iatrogenic adrenal insufficiency (HCC) [E27.49] 2017 Chronic respiratory failure with hypoxia (HCC) *2017 Rheumatoid arthritis involving multiple sites w*2017 halfway current use of immunosuppressive drug*2017 Paroxysmal atrial [...] on 10-30-2021 CNOV Office Visit (SPAGWO) Normal [facility] VIVIANA SANTANA ([id number]) 1955 F Medical Date Time Provider Department Center 10/30/21 10:00 AM RICK FENGWTania During your visit today, we recorded the following inf ormation about you: Pulse Respiration 25(OH)D3 [facility] on 10-23-2021 25-hydroxyvitamin D3 [Mass/Vol] 48.0 ng/mL Normal 31.0-80.0 [facility] Comment on above: Order Comment: Specimen Type : BLOOD SPECIMENOrdering Facility: [facility] Address: [address] [id number] Result Comment: Classificati on of 25 [place] Vitamin D status: Deficiency/Insufficiency: < or = 30 ng/ml. Sufficiency/Optimal Levels: 31-80 ng/mL Toxicity: > 100 ng/mL. Test performed by chemilumin escent immunoassay. Performed By: #### 1989-3 ## ##[facility] LABCLIA [id number] [facility] DESK [id number] [place] [address] [place] CBC W Auto Differential panel (Bld) on 10-23-2021 Basophils (Bld) [#/Vol] 0.08 10*3/uL Normal <0.11 [facility] Comment on above: Order Comment: Specimen Type : BLOOD SPECIMENOrdering Facility: [facility] Address: [address] [place] [address] Performed By: #### 49962-5 # ###[facility] LABCLIA [id number] [place] [address] [place] Basophils/100 WBC (Bld) 0.8 % Normal [facility] Comment on above: Order Comment: Specimen Type : BLOOD SPECIMENOrdering Facility: [facility] Address: [address] [place], [place] [address] Performed By: #### 44822-4 # ###[facility] LABCLIA [id number] [place] [address] [place] Differential cell count method Nom (Bld) Auto Normal [facility] Comment on above: Order Comment: Specimen Type : BLOOD SPECIMENOrdering Facility: [facility] Address: [address] [place], [place] [address] Performed By: #### 65600-5 # ###[facility] LABCLIA [id number] [place] [address] [place] Eosinophils (Bld) [#/Vol] 0.19 10*3/uL Normal <0.46 [facility] Comment on above: Order Comment: Specimen Type : BLOOD SPECIMENOrdering Facility: [facility] Address: [address] [place], [place] [address] Performed By: #### 65076-5 # ###[facility] LABCLIA [id number] [place] [address] [place] Eosinophils/100 WBC (Bld) 1.8 % Normal [facility] Comment on above: Order Comment: Specimen Type : BLOOD SPECIMENOrdering Facility: [facility] Address: [address] [place], [place] [address] Performed By: #### 73124-4 # ###[facility]IA [id number] [place] [address] [place] Erythrocyte distribution width 13.4 % Normal 11.5-15.0 [facility] (RBC) [Ratio] Comment on above: Order Comment: Specimen Type : BLOOD SPECIMENOrdering Facility: [facility] Address: [address] [place], [place] [address] Performed By: #### 50533-9 # ###[facility]OSPITALIA [id number] [place] [address] [place] Hematocrit (Bld) [Volume fraction] 37.1 % Normal 36.0-4 6.0 [facility] Comment on above: Order Comment: Specimen Type : BLOOD SPECIMENOrdering Facility: [facility] Address: [address] [place], [place] [address] Performed By: #### 71590-2 # ###[facility] HOSPITALIA [id number] [place] [address] [place] Hemoglobin (Bld) [Mass/Vol] 10.8 g/dL Low 11.5-15.5 [facility] Comment on above: Order Comment: Specimen Type : BLOOD SPECIMENOrdering Facility: [facility] Address: [address] [place], [place] [address] Performed By: #### 22501-6 # ###[facility] [id number] [place] [address] [place] IMMATURE GRAN % 0.6 % Normal [facility] Comment on above: Order Comment: Specimen Type : BLOOD SPECIMENOrdering Facility: [facility] Address: [address] [place] [address] Performed By: #### 40990-7 # ###[facility]IA [id number] [place] [address] [place] IMMATURE GRAN ABS 0.06 k/uL Normal <0.10 [facility] Comment on above: Order Comment: Specimen Type : BLOOD SPECIMENOrdering Facility: [facility] Address: [address] [place], [place] [address] Performed By: #### 18814-8 # ###[facility] LABCLIA [id number] [place] [address] [place] Lymphocytes (Bld) [#/Vol] 1.52 10*3/uL Normal 1.00-4.00 [facility] Comment on above: Order Comment: Specimen Type : BLOOD SPECIMENOrdering Facility: [facility] Address: [address] [place], [place] [address] Performed By: #### 12615-7 # ###[facility] [id number] [place] [address] [place] Lymphocytes/100 WBC (Bld) 14.4 % Normal [facility] Comment on above: Order Comment: Specimen Type : BLOOD SPECIMENOrdering Facility: [facility] Address: [address] [place], [place] [address] Performed By: #### 18241-8 # ###[facility] LABCLIA [id number] [place] [address] [place] MCH (RBC) [Entitic mass] 30.4 pg Normal 26.0-34.0 [facility] Comment on above: Order Comment: Specimen Type : BLOOD SPECIMENOrdering Facility: [facility] Address: [address] [place], [place] [address] Performed By: #### 81135-6 # ###[facility] [id number] [place] [address] [place] MCHC (RBC) [Mass/Vol] 29.1 g/dL Low 30.5-36.0 [facility] Comment on above: Order Comment: Specimen Type : BLOOD SPECIMENOrdering Facility: [facility] Address: [address] [place], [place] [address] Performed By: #### 26272-5 # ###[facility]IA [id number] [place] [address] [place] MCV (RBC) [Entitic vol] 104.5 fL High 80.0-100.0 [facility] Comment on above: Order Comment: Specimen Type : BLOOD SPECIMENOrdering Facility: [facility] Address: [address] [place], [place] [address] Performed By: #### 12371-9 # ###[facility] [id number] [place] [address] [place] Monocytes (Bld) [#/Vol] 0.40 10*3/uL Normal <0.87 [facility] Comment on above: Order Comment: Specimen Type : BLOOD SPECIMENOrdering Facility: [facility] Address: [address] [place], [place] [address] Performed By: #### 91767-5 # ###[facility] [id number] [place] [address] [place] Monocytes/100 WBC (Bld) 3.8 % Normal [facility] Comment on above: Order Comment: Specimen Type : BLOOD SPECIMENOrdering Facility: [facility] Address: [address] [place], [place] [address] Performed By: #### 68479-3 # ###[facility] [id number] [place] [address] [place] Neutrophils (Bld) [#/Vol] 8.29 10*3/uL High 1.45-7.50 [facility] Comment on above: Order Comment: Specimen Type : BLOOD SPECIMENOrdering Facility: [facility] Address: [address] [place] [address] Performed By: #### 57982-5 # ###[facility] [id number] [place] [address] [place] Neutrophils/100 WBC (Bld) 78.6 % Normal Cl [facility] Comment on above: Order Comment: Specimen Type : BLOOD SPECIMENOrdering Facility: [facility] Address: [address] [place], [place] [address] Performed By: #### 71699-2 # ###[facility] LABCLIA [id number] [place] [address] [place] Nucleated RBC (Bld) [#/Vol] 10*3/uL Normal <0.01 [facility] Comment on above: Order Comment: Specimen Type : BLOOD SPECIMENOrdering Facility: [facility] Address: [address] [place], [place] [address] Performed By: #### 53420-3 # ###[facility] [id number] [place] [address] [place] Nucleated RBC/100 WBC (Bld) [Ratio] 0.0 /100 WBC Normal [facility] Comment on above: Order Comment: Specimen Type : BLOOD SPECIMENOrdering Facility: [facility] Address: [address] [place], [place] [address] Performed By: #### 67075-9 # ###[facility] [id number] [place] [address] [place] Platelet mean volume (Bld) 10.1 fL Normal 9.0-12.7 C [facility] [Entitic vol] Comment on above: Order Comment: Specimen Type : BLOOD SPECIMENOrdering Facility: [facility] Address: [address] [place], [place] [address] Performed By: #### 33439-6 # ###[facility] [id number] [place] [address] [place] Platelets (Bld) [#/Vol] 360 10*3/uL Normal 150-400 [facility] Comment on above: Order Comment: Specimen Type : BLOOD SPECIMENOrdering Facility: [facility] Address: [address] [place] [address] Performed By: #### 38928-6 # ###[facility] [id number] [address] [place] RBC (Bld) [#/Vol] 3.55 10*6/uL Low 3.90-5.20 [facility] Comment on above: Order Comment: Specimen Type : BLOOD SPECIMENOrdering Facility: [facility] Address: [address] [place] [address] Performed By: #### 88182-9 # ###[facility] [id number] [address] [place] WBC (Bld) [#/Vol] 10.54 10*3/uL Normal 3.70-11.00 [facility] Comment on above: Order Comment: Specimen Type : BLOOD SPECIMENOrdering Facility: [facility] Address: [address] [place] [address] Performed By: #### 58538-4 # ###[facility] [id number] [address] CNPN on 10-23-2021 CNPN Telephone ([facility]) Normal Byars VIVIANA Beverly ([id number]) 1955 F Medical Date Time Provider Department Center 10/23/21 ASIA CALDERÓN During your visit today, we recorded the following inf ormation about you: Dixie Tay Calenderer Ppg 10/23/2021 10:28 AM Signed [facility] APPROVED NO PA REQ [id number] 11.10.2021 - 12 Dixie Tay [place] Ppg Allergies As of Date: 10/23/2021 Noted Allergy Reactio n RAGWEED 03/10/2011 14 - Other: See Comments TREES 03/10/2011 14 - Other: See Comments Date Reviewed: 09/23/2021 Reviewed by: Leslie Walker Ma - Fully Assessed Reason for Visit: APPROVED-NO RICARDO CHOI [Other] Cmt: Orencia APPROVED NO RICARDO CHOI [id number] 11.10.2021 - 11.10.2022 12 Prescriptions as of [...] 08/25/2018 Lung nodule, multiple [R91.8] 01/03/2017 Iatrogenic [place]'s disease (HCC) [E24.2] 05/19/2017 05/19/2017 Iatrogenic adrenal insufficiency (HCC) [E27.49] 2017 Chronic respiratory failure with hypoxia (HCC) *2017 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 Paroxysmal atrial [...] 10-23-2021 Albumin [Mass/Vol] 3.5 g/dL Low 3.9-4.9 [facility] Comment on above: Order Comment: Specimen Type : BLOOD SPECIMENOrdering Facility: [facility] Address: [address] [place] [address] Performed By: #### 60787-0 # ###[facility] LABCLIA [id number] [place] [address] [place] ALP [Catalytic activity/Vol] 107 U/L Normal 34-123 [facility] Comment on above: Order Comment: Specimen Type : BLOOD SPECIMENOrdering Facility: [facility] Address: [address] [place] [address] Performed By: #### 93964-6 # ###[facility] LABCLIA [id number] [place] [address] [place] ALT [Catalytic activity/Vol] 7 U/L Normal 7-38 [facility] Comment on above: Order Comment: Specimen Type : BLOOD SPECIMENOrdering Facility: [facility] Address: [address] Performed By: #### 12024-9 # ###[facility] LABCLIA [id number] [place] [address] [place] Anion gap [Moles/Vol] 13 mmol/L Normal 9-18 [facility] Comment on above: Order Comment: Specimen Type : BLOOD SPECIMENOrdering Facility: [facility] Address: [address] [place], [place] [address] Performed By: #### 45320-5 # ###[facility] LABCLIA [id number] [place] [address] [place] AST [Catalytic activity/Vol] 14 U/L Normal 13-35 [facility] Comment on above: Order Comment: Specimen Type : BLOOD SPECIMENOrdering Facility: [facility] Address: [address] [place], [place] [address] Performed By: #### 38427-0 # ###[facility] LABCLIA [id number] [place] [address] [place] Bilirubin [Mass/Vol] 0.2 mg/dL Normal 0.2-1.3 [facility] Comment on above: Order Comment: Specimen Type : BLOOD SPECIMENOrdering Facility: [facility] Address: [address] Performed By: #### 52808-8 # ###[facility] LABCLIA [id number] [place] [address] [place] Calcium [Mass/Vol] 9.3 mg/dL Normal 8.5-10.2 [facility] Comment on above: Order Comment: Specimen Type : BLOOD SPECIMENOrdering Facility: [facility] Address: [address] [place], [place] [address] Performed By: #### 41318-8 # ###[facility]CLIA [id number] [place] [address] [place] Chloride [Moles/Vol] 98 mmol/L Normal 97-105 [facility] Comment on above: Order Comment: Specimen Type : BLOOD SPECIMENOrdering Facility: [facility] Address: [address] [place] [address] Performed By: #### 63689-9 # ###[facility] LABCL[facility] [id number] [place] [address] [place] CO2 [Moles/Vol] 25 mmol/L Normal 22-30 [facility] Comment on above: Order Comment: Specimen Type : BLOOD SPECIMENOrdering Facility: [facility] Address: [address] [place] [address] Performed By: #### 43905-3 # ###[facility] [id number] [place] [address] [place] Creatinine [Mass/Vol] 0.70 mg/dL Normal 0.58-0.96 [facility] Comment on above: Order Comment: Specimen Type : BLOOD SPECIMENOrdering Facility: [facility] Address: [address] [place] [address] Performed By: #### 74560-4 # ###[facility] [id number] [address] [place] ESTIMATED GLOMERULAR 97 mL/min/1.73m??? Normal >=60 C [facility] FILTRATION RATE Comment on above: Order Comment: Specimen Type : BLOOD SPECIMENOrdering Facility: [facility] Address: [address] [place] [address] Result Comment: Estimated Gl omerular Filtration Rate [...] accurately reflect actual GFR. Performed By: #### 49931-8 # ###[facility] LABCL[facility] [id number] [place] [address] [place] Glucose [Mass/Vol] 136 mg/dL High 74-99 [facility] Comment on above: Order Comment: Specimen Type : BLOOD SPECIMENOrdering Facility: [facility] Address: [address] [place] [address] Result Comment: The [place] [employer] (ADA) provides guidance for cutoff [...] for diagnosis of diabetes. Reference: Standards of [facility] Care in Diabetes 2016, [place] [employer]. Diabetes Care. 2016.39(Suppl 1). Performed By: #### 78097-7 # ###[facility] [id number] [place] [address] [place] Potassium [Moles/Vol] 4.1 mmol/L Normal 3.7-5.1 [facility] Comment on above: Order Comment: Specimen Type : BLOOD SPECIMENOrdering Facility: [facility] Address: [address] [id number] Performed By: #### 94012-0 # ###[facility] [id number] [place] [address] [place] Protein [Mass/Vol] 7.3 g/dL Normal 6.3-8.0 [facility] Comment on above: Order Comment: Specimen Type : BLOOD SPECIMENOrdering Facility: [facility] Address: [address] Performed By: #### 13039-2 # ###[facility] [id number] [place] [address] [place] Sodium [Moles/Vol] 136 mmol/L Normal 136-144 [facility] Comment on above: Order Comment: Specimen Type : BLOOD SPECIMENOrdering Facility: [facility] Address: [address] [place] [address] Performed By: #### 12204-0 # ###[facility] [id number] [place] [address] [place] Urea nitrogen [Mass/Vol] 12 mg/dL Normal 7-21 [facility] Comment on above: Order Comment: Specimen Type : BLOOD SPECIMENOrdering Facility: [facility] Address: [address] [place] [address] Performed By: #### 18968-8 # ###[facility] [id number] [address] [place] CNPN on 10-10-2021 CNPN Telephone (FAMPWS) [facility] VIVIANA SANTANA ([id number]) 1955 [facility] Date Time Provider Department 10/10/21 [facility] During your visit today, we recorded the [...] 08/25/2018 Lung nodule, multiple [R91.8] 01/03/2017 Iatrogenic [place]'s disease (HCC) [E24.2] 05/19/2017 05/19/2017 Iatrogenic adrenal insufficiency (HCC) [E27.49] 2017 Chronic respiratory failure with hypoxia (HCC) *2017 Rheumatoid arthritis involving multiple sites w*2017 halfway current use of immunosuppressive drug*2017 Paroxysmal atrial [...] CNOV Office Visit (FAMPWS) Normal [facility] VIVIANA SANTANA ([id number]) 1955 [facility] Date Time Provider Department 09/23/21 2:40 PM [facility] During your visit today, we recorded the [...] 1.00 - 4.00 k/uL 1.45 2.11 1.19 [place]% % 3.8 5.9 4.2 Abs [place] <0.87 k/uL 0.58 0.56 0.44 Eosin% % [...] 91.3 ng/mL 30.0 - 10 0.0 ng/mL [facility] CBC W Auto Differential panel (Bld) on 09-18-2021 Basophils (Bld) [#/Vol] 0.09 10*3/uL Normal <0.11 [facility] Comment on above: Order Comment: Specimen Type : BLOOD SPECIMENOrdering Facility: [facility] Address: [address] [place] [address] Performed By: #### 06985-8 # ###[facility] LABORATORYCLIA [id number] [place] [address] [place] Basophils/100 WBC (Bld) 0.9 % Normal [facility] Comment on above: Order Comment: Specimen Type : BLOOD SPECIMENOrdering Facility: [facility] Address: [address] [place] [address] Performed By: #### 40850-6 # ###[facility]ORATORYCLIA [id number] [facility], [address] Differential cell count method Nom (Bld) Auto Normal [facility] Comment on above: Order Comment: Specimen Type : BLOOD SPECIMENOrdering Facility: [facility] Address: [facility] [address] Performed By: #### 77219-8 # ###[facility]ORATORYCLIA [id number] [facility] EN[address] Eosinophils (Bld) [#/Vol] 0.30 10*3/uL Normal <0.46 [facility] Comment on above: Order Comment: Specimen Type : BLOOD SPECIMENOrdering Facility: [facility] Address: [address] [place] [address] Performed By: #### 64900-0 # ###[facility] LABORATORYCLIA [id number] [address] Eosinophils/100 WBC (Bld) 2.9 % Normal [facility] Comment on above: Order Comment: Specimen Type : BLOOD SPECIMENOrdering Facility: [facility] Address: [address] [place] [address] Performed By: #### 26645-3 # ###[facility]ORATORYCLIA [id number] [address] Erythrocyte distribution width 13.4 % Normal 11.5-15.0 [facility] (RBC) [Ratio] Comment on above: Order Comment: Specimen Type : BLOOD SPECIMENOrdering Facility: [facility] Address: [address] [address] Performed By: #### 30833-6 # ###[facility]ORATORYCLIA [id number] [address] Hematocrit (Bld) [Volume 37.9 % Normal 36.0-46.0 [facility] fraction] Comment on above: Order Comment: Specimen Type : BLOOD SPECIMENOrdering Facility: [facility] Address: [address] [place] [address] Performed By: #### 77586-0 # ###[facility]ORATORYCLIA [id number] [facility], [address] [place] Hemoglobin (Bld) [Mass/Vol] 11.5 g/dL Normal 11.5-15.5 [facility] Comment on above: Order Comment: Specimen Type : BLOOD SPECIMENOrdering Facility: [facility] Address: [address] [place] [address] Performed By: #### 55195-8 # ###[facility] LABORATORYCLIA [id number] [facility], [address] IMMATURE GRAN % 0.3 % Normal [facility] Comment on above: Order Comment: Specimen Type : BLOOD SPECIMENOrdering Facility: [facility] Address: [address] [place] [address] Performed By: #### 48578-6 # ###[facility] LABORATORYCLIA [id number] [facility] ENUEPRRON, [address] OF [facility] IMMATURE GRAN ABS 0.03 k/uL Normal <0.10 [facility] Comment on above: Order Comment: Specimen Type : BLOOD SPECIMENOrdering Facility: [facility] Address: [address] [place] [address] Performed By: #### 44921-5 # ###[facility] LABORATORYCLIA [id number] [facility] ENUEAK[place], [address] [place] Lymphocytes (Bld) [#/Vol] 1.19 10*3/uL Normal 1.00-4.00 [facility] Comment on above: Order Comment: Specimen Type : BLOOD SPECIMENOrdering Facility: [facility] Address: [address] [place] [address] Performed By: #### 91207-1 # ###[facility]ORATORYCLIA [id number] [facility] ENUEAK[place], [address] [place] Lymphocytes/100 WBC (Bld) 11.5 % Normal [facility] Comment on above: Order Comment: Specimen Type : BLOOD SPECIMENOrdering Facility: [facility] Address: [address] [address] Performed By: #### 93362-5 # ###[facility] LABORATORYCLIA [id number] [facility], [address] MCH (RBC) [Entitic mass] 30.6 pg Normal 26.0-34.0 [facility] Comment on above: Order Comment: Specimen Type : BLOOD SPECIMENOrdering Facility: [facility] Address: [address] [place] [address] Performed By: #### 06438-9 # ###[facility] LABORATORYCLIA [id number] [facility], [address] [place] MCHC (RBC) [Mass/Vol] 30.3 g/dL Low 30.5-36.0 [facility] Comment on above: Order Comment: Specimen Type : BLOOD SPECIMENOrdering Facility: [facility] Address: [address] [place] [address] Performed By: #### 96906-4 # ###[facility] LABORATORYCLIA [id number] [facility], [address] [place] MCV (RBC) [Entitic vol] 100.8 fL High 80.0-100.0 [facility] Comment on above: Order Comment: Specimen Type : BLOOD SPECIMENOrdering Facility: [facility] Address: [address] [place] [address] Performed By: #### 69645-2 # ###[facility] LABORATORYCLIA [id number] [facility] Monocytes (Bld) [#/Vol] 0.44 10*3/uL Normal <0.87 [facility] Comment on above: Order Comment: Specimen Type : BLOOD SPECIMENOrdering Facility: [facility] Address: [address] [place] [address] Performed By: #### 87062-9 # ###[facility] LABORATORYCLIA [id number] [facility] [place] [address] [place] [address] [place] Monocytes/100 WBC (Bld) 4.2 % Normal [facility] Comment on above: Order Comment: Specimen Type : BLOOD SPECIMENOrdering Facility: [facility] Address: [facility] [address] [address] Performed By: #### 34660-5 # ###[facility]ORATORYCLIA [id number] [facility], [address] [address] [place] Neutrophils (Bld) [#/Vol] 8.31 10*3/uL High 1.45-7.50 [facility] Comment on above: Order Comment: Specimen Type : BLOOD SPECIMENOrdering Facility: [facility] Address: [address] [place] [address] Performed By: #### 69301-2 # ###[facility]ORATORYCLIA [id number] [facility], [address] [place] Neutrophils/100 WBC (Bld) 80.2 % Normal [facility] Comment on above: Order Comment: Specimen Type : BLOOD SPECIMENOrdering Facility: [facility] Address: [address] [place] [address] Performed By: #### 45005-4 # ###[facility]ORATORYCLIA [id number] [facility], [address] [place] Nucleated RBC (Bld) [#/Vol] 10*3/uL Normal <0.01 [facility] Comment on above: Order Comment: Specimen Type : BLOOD SPECIMENOrdering Facility: [facility] Address: [address] [address] Performed By: #### 68932-1 # ###[facility]ORATORYCLIA [id number] [facility], [address] [place] Nucleated RBC/100 WBC (Bld) 0.0 /100 WBC Normal [facility] [Ratio] Comment on above: Order Comment: Specimen Type : BLOOD SPECIMENOrdering Facility: [facility] Address: [address] [place] [address] Performed By: #### 50845-3 # ###[facility] LABORATORYCLIA [id number] [facility] [place], [place] [id number] [place] [address] Platelet mean volume (Bld) 9.8 fL Normal 9.0-12.7 [facility] [Entitic vol] Comment on above: Order Comment: Specimen Type : BLOOD SPECIMENOrdering Facility: [facility] Address: [address] [place] [address] Performed By: #### 72144-2 # ###[facility] LABORATORYCLIA [id number] [facility], [address] OF [facility] Platelets (Bld) [#/Vol] 334 10*3/uL Normal 150-400 [facility] Comment on above: Order Comment: Specimen Type : BLOOD SPECIMENOrdering Facility: [facility] Address: [address] [place] [address] Performed By: #### 78779-4 # ###[facility] LABORATORYCLIA [id number] [facility] ENUE[facility], [address] OF [facility] RBC (Bld) [#/Vol] 3.76 10*6/uL Low 3.90-5.20 [facility] Comment on above: Order Comment: Specimen Type : BLOOD SPECIMENOrdering Facility: [facility] Address: [address] [place] [address] Performed By: #### 13787-0 # ###[facility] LABORATORYCLIA [id number] [facility] EN[place], [address] [place] WBC (Bld) [#/Vol] 10.36 10*3/uL Normal 3.70-11.00 [facility] Comment on above: Order Comment: Specimen Type : BLOOD SPECIMENOrdering Facility: [facility] Address: [address] [place], [place] [address] Performed By: #### 24435-2 # ###[facility] LABORATORYCLIA [id number] [facility] [place], [place] [address] [place] [address] [place] Abs Immature Gran 0.03 k/uL <0.10 k/uL [facility] Basophils (Bld) [#/Vol] 0.09 10*3/uL <0.11 k/uL [facility] Basophils/100 WBC (Bld) 0.9 % [facility] Differential cell count method Auto [facility] Nom (Bld) Eosinophils (Bld) [#/Vol] 0.30 10*3/uL <0.46 k/uL [facility] Eosinophils/100 WBC (Bld) 2.9 % [facility] Erythrocyte distribution width 13.4 % 11.5 - 15. 0 % [facility] (RBC) [Ratio] Hematocrit (Bld) [Volume 37.9 % 36.0 - 46.0 % [facility] fraction] Hemoglobin (Bld) [Mass/Vol] 11.5 g/dL 11.5 - 15.5 g /dL [facility] Immature Gran % 0.3 % [facility] inic Lymphocytes (Bld) [#/Vol] 1.19 10*3/uL 1.00 - 4.00 k/u L [facility] Lymphocytes/100 WBC (Bld) 11.5 % [facility] MCH (RBC) [Entitic mass] 30.6 pg 26.0 - 34.0 pg [facility] MCHC (RBC) [Mass/Vol] 30.3 g/dL Low 30.5 - 36.0 g/dL [facility] MCV (RBC) [Entitic vol] 100.8 fL High 80.0 - 100.0 fL [facility] Monocytes (Bld) [#/Vol] 0.44 10*3/uL <0.87 k/uL [facility] Monocytes/100 WBC (Bld) 4.2 % [facility] Neutrophils (Bld) [#/Vol] 8.31 10*3/uL High 1.45 - 7.50 k/u L [facility] Neutrophils/100 WBC (Bld) 80.2 % [facility] Nucleated RBC (Bld) [#/Vol] 10*3/uL <0.01 k/uL [facility] Nucleated RBC/100 WBC (Bld) 0.0 /100 WBC [facility] [Ratio] Platelet mean volume (Bld) 9.8 fL 9.0 - 12.7 fL [facility] [Entitic vol] Platelets (Bld) [#/Vol] 334 10*3/uL 150 - 400 k/uL [facility] RBC (Bld) [#/Vol] 3.76 10*6/uL Low 3.90 - 5.20 m/uL [facility] WBC (Bld) [#/Vol] 10.36 10*3/uL 3.70 - 11.00 k/uL [facility] CNOV on 09-18-2021 CNOV Office Visit (RHBATH) Normal [facility] VIVIANA SANTANA ([id number]) 1955 F Medical Date Time Provider Department Center 09/18/21 11:20 AM [facility] During your visit today, we recorded [...] with RA 2017. She was admitted at [facility] - double pneumonia, RA. She was [...] DM2, polyneuropathy. She follows with pulm in [place]. RA, chronic steroids, adrenal insuff ? Family [...] not included)... CNPN on 09-18-2021 MELISAN Telephone (KeyEffx) Normal [facility] ABUNDIOVIVIANA ARRIAZA ([id number]) 1955 F Medical Date Time Provider Department Center 09/18/21 ASIA CALDERÓN During your visit today, we recorded the following inf ormation about you: Heather Cruz 09/18/2021 1:11 PM Signed Internal referral Pain Mgt conf #[id number] Heather Cruz 09/19/2021 11:16 AM Signed Sirena [...] 08/25/2018 Lung nodule, multiple [R91.8] 01/03/2017 Iatrogenic [place]'s disease (HCC) [E24.2] 05/19/2017 05/19/2017 Iatrogenic adrenal insufficiency (HCC) [E27.49] 2017 Chronic respiratory failure with hypoxia (HCC) *2017 Rheumatoid arthritis involving multiple sites w*2017 halfway current use of immunosuppressive drug*2017 Paroxysmal atrial [...] 3.5 g/dL Low 3.9 - 4.9 g/dL [facility] ALP [Catalytic 113 U/L 34 - 123 U/L [facility]ela activity/Vol] ALT With P-5'-P 6 U/L Low 7 - 38 U/L [facility] [Catalytic activity/Vol] Anion gap [Moles/Vol] 10 mmol/L 9 - 18 mmol/L [facility] AST With P-5'-P 16 U/L 13 - 35 U/L [facility] [Catalytic activity/Vol] Bilirubin [Mass/Vol] 0.3 mg/dL 0.2 - 1.3 mg/dL [facility] Calcium [Mass/Vol] 9.3 mg/dL 8.5 - 10.2 mg/dL [facility] Chloride [Moles/Vol] 99 mmol/L 97 - 105 mmol/L [facility] CO2 [Moles/Vol] 28 mmol/L 22 - 30 mmol/L [facility] Creatinine [Mass/Vol] 0.79 mg/dL 0.58 - 0.96 mg/dL [facility] Estimated Glomerular 84 mL/min/1.73m >=60 mL/min/1.73m [facility] Filtration Rate Glucose [Mass/Vol] 104 mg/dL High 74 - 99 mg/dL [facility] Potassium [Moles/Vol] 4.3 mmol/L 3.7 - 5.1 mmol/L Cl [facility] Protein [Mass/Vol] 7.1 g/dL 6.3 - 8.0 g/dL [facility] Sodium [Moles/Vol] 137 mmol/L 136 - 144 mmol/L [facility] Urea nitrogen [Mass/Vol] 12 mg/dL 7 - 21 mg/dL [facility] Albumin [Mass/Vol] 3.5 g/dL Low 3.9-4.9 [facility] Comment on above: Order Comment: Specimen Type : BLOOD SPECIMENOrdering Facility: [facility] Address: [address] [place] [address] Performed By: #### 61147-5, IRON, FERR ####[facility] LABORATORYCLIA [id number] [address] ALP [Catalytic activity/Vol] 113 U/L Normal 34-123 [facility] Comment on above: Order Comment: Specimen Type : BLOOD SPECIMENOrdering Facility: [facility] Address: [address] [place] [address] Performed By: #### 88619-7, IRON, FERR ####[facility] LABORATORYCLIA [id number] [address] OF [facility] ALT With P-5'-P [Catalytic activity/Vol] 6 U/L Low 7-38 [facility] Comment on above: Order Comment: Specimen Type : BLOOD SPECIMENOrdering Facility: [facility] Address: [address] [place] [address] Performed By: #### 73395-1, IRON, FERR ####[facility] LABORATORYCLIA [id number] [address] Anion gap [Moles/Vol] 10 mmol/L Normal 9-18 [facility] Comment on above: Order Comment: Specimen Type : BLOOD SPECIMENOrdering Facility: [facility] Address: [address] [address] Performed By: #### 53507-4, IRON, FERR ####[facility] LABORATORYCLIA [id number] [address] AST With P-5'-P [Catalytic 16 U/L Normal 13-35 [facility] activity/Vol] Comment on above: Order Comment: Specimen Type : BLOOD SPECIMENOrdering Facility: [facility] Address: [address] [address] Performed By: #### 85323-7, IRON, FERR ####[facility] LABORATORYCLIA [id number] [address] OF [facility] Bilirubin [Mass/Vol] 0.3 mg/dL Normal 0.2-1.3 [facility] Comment on above: Order Comment: Specimen Type : BLOOD SPECIMENOrdering Facility: [facility] Address: [address] [address] Performed By: #### 71021-7, IRON, FERR ####[facility]ORATORYCLIA [id number] [address] OF [facility] Calcium [Mass/Vol] 9.3 mg/dL Normal 8.5-10.2 [facility] Comment on above: Order Comment: Specimen Type : BLOOD SPECIMENOrdering Facility: [facility] Address: [address] [address] Performed By: #### 88492-1, IRON, FERR ####[facility]ORATORYCLIA [id number] A ABHI [address] Chloride [Moles/Vol] 99 mmol/L Normal 97-105 [facility] Comment on above: Order Comment: Specimen Type : BLOOD SPECIMENOrdering Facility: [facility] Address: [address] [place] [address] Performed By: #### 67964-5, IRON, FERR ####[facility] LABORATORYCLIA [id number] [address] OF [facility] CO2 [Moles/Vol] 28 mmol/L Normal 22-30 [facility] Comment on above: Order Comment: Specimen Type : BLOOD SPECIMENOrdering Facility: [facility] Address: [address] [place] [address] Performed By: #### 36937-4, IRON, FERR ####[facility] LABORATORYCLIA [id number] [address] Creatinine [Mass/Vol] 0.79 mg/dL Normal 0.58-0.96 [facility] Comment on above: Order Comment: Specimen Type : BLOOD SPECIMENOrdering Facility: [facility] Address: [address] [place] [address] Performed By: #### 06840-2, IRON, FERR ####[facility] LABORATORYCLIA [id number] [address] ESTIMATED GLOMERULAR 84 mL/min/1.73m??? Normal >=60 [facility] Comment on above: Order Comment: Specimen Type : BLOOD SPECIMENOrdering Facility: [facility] Address: [address] [place] [address] Result Comment: Estimated Gl omerular Filtration Rate [...] accurately reflect actual GFR. Performed By: #### 37576-9, IRON, FERR ####[facility] LABORATORYCLIA [id number] [place] [address] [place] Glucose [Mass/Vol] 104 mg/dL High 74-99 [facility] Comment on above: Order Comment: Specimen Type : BLOOD SPECIMENOrdering Facility: [facility] Address: [address] [place] [address] Result Comment: The [place] [employer] (ADA) provides guidance for cutoff [...] for diagnosis of diabetes. Reference: Standards of [facility] Care in Diabetes 2016, [place] [employer]. Diabetes Care. 2016.39(Suppl 1). Performed By: #### 13096-9, IRON, FERR ####[facility] LABORATORYCLIA [id number] [place] [address] [place] Potassium [Moles/Vol] 4.3 mmol/L Normal 3.7-5.1 [facility] Comment on above: Order Comment: Specimen Type : BLOOD SPECIMENOrdering Facility: [facility] Address: [address] [address] Performed By: #### 11402-9, IRON, FERR ####[facility] LABORATORYCLIA [id number] [place] [address] [place] Protein [Mass/Vol] 7.1 g/dL Normal 6.3-8.0 [facility] Comment on above: Order Comment: Specimen Type : BLOOD SPECIMENOrdering Facility: [facility] Address: [address] [address] Performed By: #### 74931-1, IRON, FERR ####[facility] LABORATORYCLIA [id number] [place] [address] [place] Sodium [Moles/Vol] 137 mmol/L Normal 136-144 [facility] Comment on above: Order Comment: Specimen Type : BLOOD SPECIMENOrdering Facility: [facility] Address: [address] [place] [address] Performed By: #### 60721-2, IRON, FERR ####[facility] LABORATORYCLIA [id number] [place] [address] [place] Urea nitrogen [Mass/Vol] 12 mg/dL Normal 7-21 [facility] Comment on above: Order Comment: Specimen Type : BLOOD SPECIMENOrdering Facility: [facility] Address: [address] [place] [address] Performed By: #### 49749-4, IRON, FERR ####[facility] MUNSTERCLIA [id number] [place] [address] [place] FERRITIN BLD on 09-18-2021 Ferritin [Mass/Vol] 489.6 ng/mL High 14.7 - 205.1 ng/mL [facility] Ferritin [Mass/Vol] 489.6 ng/mL High 14.7-205.1 [facility] Comment on above: Order Comment: Specimen Type : BLOOD SPECIMENOrdering Facility: [facility] Address: [address] [place] [address] Performed By: #### 28209-3, IRON, FERR ####[facility] LABORATORYCLIA [id number] [place] [address] [place] IRON + TIBC on 09-18-2021 Iron [Mass/Vol] 31 ug/dL Low 41 - 186 ug/dL [facility] Iron binding capacity 190 ug/dL Low 232 - 386 ug/dL [facility] [Mass/Vol] Iron saturation [Mass 16 % 15 - 57 % [facility] fraction] Iron [Mass/Vol] 31 ug/dL Low 41-186 [facility] Comment on above: Order Comment: Specimen Type : BLOOD SPECIMENOrdering Facility: [facility] Address: [address] [place] [address] Performed By: #### 13302-1, IRON, FERR ####[facility] LABORATORYCLIA [id number] [address] [place] Iron binding capacity [Mass/Vol] 190 ug/dL Low 232-386 [facility] Comment on above: Order Comment: Specimen Type : BLOOD SPECIMENOrdering Facility: [facility] Address: [address] [place] [address] Performed By: #### [id number], IRON, FERR ####[facility] LABORATORYCLIA [id number] [address] [place] [facility] Iron saturation [Mass fraction] 16 % Normal 15-57 [facility] Comment on above: Order Comment: Specimen Type : BLOOD SPECIMENOrdering Facility: [facility] Address: [address] [place] [address] Performed By: #### 82543-4, IRON, FERR ####[facility] LABORATORYCLIA [id number] [address] [place] VITAMIN D 25 HYDROXY on 09-18-2021 25-hydroxyvitamin D3 [Mass/Vol] 91.3 ng/mL Normal 30.0-100. 0 [facility] Comment on above: Order Comment: Specimen Type : BLOOD SPECIMENOrdering Facility: [facility] Address: [address] [place] [address] Result Comment: Classificati on of 25 [place] Vitamin D status: Deficiency: <= 20.0 ng/ml. Insufficientcy: 21.0-29.0 ng /ml. Sufficiency: >= 30.0 ng/ml. Performed By: #### VITD #### [facility] LABORATORYCLIA [id number] [address] [place] CBC W Auto Differential panel (Bld) on 09-09-2021 Basophils (Bld) [#/Vol] 0.11 10*3/uL High <0.11 [facility] Comment on above: Order Comment: Specimen Type : BLOOD SPECIMENOrdering Facility: [facility] Address: [address] [place], [place] [address] Performed By: #### 07070-6 # ###[facility] [id number] [place] [address] [place] Basophils/100 WBC (Bld) 1.2 % Normal [facility] Comment on above: Order Comment: Specimen Type : BLOOD SPECIMENOrdering Facility: [facility] Address: [address] [place], [place] [address] Performed By: #### 62554-0 # ###[facility] [id number] [place] [address] [place] Differential cell count method Nom (Bld) Auto Normal [facility] Comment on above: Order Comment: Specimen Type : BLOOD SPECIMENOrdering Facility: [facility] Address: [address] [place], [place] [address] Performed By: #### 35964-8 # ###[facility] [id number] [place] [address] [place] Eosinophils (Bld) [#/Vol] 0.41 10*3/uL Normal <0.46 [facility] Comment on above: Order Comment: Specimen Type : BLOOD SPECIMENOrdering Facility: [facility] Address: [address] [place], [place] [address] Performed By: #### 43637-2 # ###[facility] [id number] [address] [place] Eosinophils/100 WBC (Bld) 4.3 % Normal [facility] Comment on above: Order Comment: Specimen Type : BLOOD SPECIMENOrdering Facility: [facility] Address: [address] [place] [address] Performed By: #### 13969-2 # ###[facility] [id number] [place] [address] [place] Erythrocyte distribution width 13.4 % Normal 11.5-15.0 [facility] (RBC) [Ratio] Comment on above: Order Comment: Specimen Type : BLOOD SPECIMENOrdering Facility: [facility] Address: [address] [place], [place] [address] Performed By: #### 09306-2 # ###[facility] [id number] [place] [address] [place] Hematocrit (Bld) [Volume fraction] 39.3 % Normal 36.0-4 6.0 [facility] Comment on above: Order Comment: Specimen Type : BLOOD SPECIMENOrdering Facility: [facility] Address: [address] [place], [place] [address] Performed By: #### 18933-8 # ###[facility] [id number] [place] [address] [place] Hemoglobin (Bld) [Mass/Vol] 11.5 g/dL Normal 11.5-15.5 [facility] Comment on above: Order Comment: Specimen Type : BLOOD SPECIMENOrdering Facility: [facility] Address: [address] [place], [place] [address] Performed By: #### 18671-6 # ###[facility] [id number] [place] [address] [place] IMMATURE GRAN % 0.4 % Normal [facility] Comment on above: Order Comment: Specimen Type : BLOOD SPECIMENOrdering Facility: [facility] Address: [address] [place], [place] [address] Performed By: #### 65237-1 # ###[facility] [id number] [address] [place] IMMATURE GRAN ABS 0.04 k/uL Normal <0.10 [facility] Comment on above: Order Comment: Specimen Type : BLOOD SPECIMENOrdering Facility: [facility] Address: [address] [place], [place] [address] Performed By: #### 99688-8 # ###[facility]CL[facility] [id number] [place] [address] [place] Lymphocytes (Bld) [#/Vol] 2.11 10*3/uL Normal 1.00-4.00 [facility] Comment on above: Order Comment: Specimen Type : BLOOD SPECIMENOrdering Facility: [facility] Address: [address] [place] [address] Performed By: #### 71856-5 # ###[facility] [id number] [place] [address] [place] Lymphocytes/100 WBC (Bld) 22.3 % Normal [facility] Comment on above: Order Comment: Specimen Type : BLOOD SPECIMENOrdering Facility: [facility] Address: [address] [place] [address] Performed By: #### 86918-2 # ###[facility] [id number] [place] [address] [place] MCH (RBC) [Entitic mass] 30.4 pg Normal 26.0-34.0 [facility] Comment on above: Order Comment: Specimen Type : BLOOD SPECIMENOrdering Facility: [facility] Address: [address] [place], [place] [address] Performed By: #### 90499-7 # ###[facility] [id number] [place] [address] [place] MCHC (RBC) [Mass/Vol] 29.3 g/dL Low 30.5-36.0 [facility] Comment on above: Order Comment: Specimen Type : BLOOD SPECIMENOrdering Facility: [facility] Address: [address] [place], [place] [address] Performed By: #### 96460-9 # ###[facility] [id number] [place] [address] [place] MCV (RBC) [Entitic vol] 104.0 fL High 80.0-100.0 [facility] Comment on above: Order Comment: Specimen Type : BLOOD SPECIMENOrdering Facility: [facility] Address: [address] [place], [place] [address] Performed By: #### 25053-5 # ###[facility] [id number] [place] [address] [place] Monocytes (Bld) [#/Vol] 0.56 10*3/uL Normal <0.87 [facility] Comment on above: Order Comment: Specimen Type : BLOOD SPECIMENOrdering Facility: [facility] Address: [address] [place], [place] [address] Performed By: #### 32401-9 # ###[facility] [id number] [place] [address] [place] Monocytes/100 WBC (Bld) 5.9 % Normal [facility] Comment on above: Order Comment: Specimen Type : BLOOD SPECIMENOrdering Facility: [facility] Address: [address] [place], [place] [address] Performed By: #### 60303-0 # ###[facility] [id number] [place] [address] [place] Neutrophils (Bld) [#/Vol] 6.25 10*3/uL Normal 1.45-7.50 [facility] Comment on above: Order Comment: Specimen Type : BLOOD SPECIMENOrdering Facility: [facility] Address: [address] [place], [place] [address] Performed By: #### 89365-1 # ###[facility] [id number] [place] [address] [place] Neutrophils/100 WBC (Bld) 65.9 % Normal [facility] Comment on above: Order Comment: Specimen Type : BLOOD SPECIMENOrdering Facility: [facility] Address: [address] [place], [place] [address] Performed By: #### 36657-4 # ###[facility] [id number] [place] [address] [place] Nucleated RBC (Bld) [#/Vol] 10*3/uL Normal <0.01 [facility] Comment on above: Order Comment: Specimen Type : BLOOD SPECIMENOrdering Facility: [facility] Address: [address] [place] [address] Performed By: #### 84385-7 # ###[facility] [id number] [place] [address] [place] Nucleated RBC/100 WBC (Bld) [Ratio] 0.0 /100 WBC Normal [facility] Comment on above: Order Comment: Specimen Type : BLOOD SPECIMENOrdering Facility: [facility] Address: [address] [place] [phone] Performed By: #### 90439-6 # ###[facility] [id number] [place] [address] [place] Platelet mean volume (Bld) 10.1 fL Normal 9.0-12.7 [facility] [Entitic vol] Comment on above: Order Comment: Specimen Type : BLOOD SPECIMENOrdering Facility: [facility] Address: [address] [place] [phone] Performed By: #### 74007-3 # ###[facility] [id number] [place] [address] [place] Platelets (Bld) [#/Vol] 368 10*3/uL Normal 150-400 [facility] Comment on above: Order Comment: Specimen Type : BLOOD SPECIMENOrdering Facility: [facility] Address: [address] [place] [phone] Performed By: #### 11802-2 # ###[facility] [id number] [place] [address] [place] RBC (Bld) [#/Vol] 3.78 10*6/uL Low 3.90-5.20 [facility] Comment on above: Order Comment: Specimen Type : BLOOD SPECIMENOrdering Facility: [facility] Address: [address] [place] [address] Performed By: #### 71458-3 # ###[facility] [id number] [place] [address] [place] WBC (Bld) [#/Vol] 9.48 10*3/uL Normal 3.70-11.00 [facility] Comment on above: Order Comment: Specimen Type : BLOOD SPECIMENOrdering Facility: [facility] Address: [address] [place], [place] [address] Performed By: #### 32660-3 # ###[facility] [id number] [place] [address] [place] [facility] [place] Comprehensive metabolic 2000 panel on 0 09-09-2021 Albumin [Mass/Vol] 3.5 g/dL Low 3.9-4.9 [facility] Comment on above: Order Comment: Specimen Type : BLOOD SPECIMENOrdering Facility: [facility] Address: [address] [place] [address] Performed By: #### FT4 FERR , 48612-7, 3016-3 ####[facility] [id number] [place] [address] [place] ALP [Catalytic activity/Vol] 114 U/L Normal 34-123 [facility] Comment on above: Order Comment: Specimen Type : BLOOD SPECIMENOrdering Facility: [facility] Address: [address] [place] [phone] Performed By: #### FT4, FERR , 42109-8, 3016-3 ####[facility] [id number] [address] [address] [place] ALT [Catalytic activity/Vol] 6 U/L Low 7-38 [facility] Comment on above: Order Comment: Specimen Type : BLOOD SPECIMENOrdering Facility: [facility] Address: [address] [place] [phone] Performed By: #### MARIELLA PAGE , , 3015-3 ####[facility] [id number] [address] [address] [place] Anion gap [Moles/Vol] 11 mmol/L Normal 9-18 [facility] Comment on above: Order Comment: Specimen Type : BLOOD SPECIMENOrdering Facility: [facility] Address: [address] [place], [place] [address] Performed By: #### MARIELLA PAGE , , 3 ####[facility] [id number] [place] [address] [place] AST [Catalytic activity/Vol] 14 U/L Normal 13-35 [facility] Comment on above: Order Comment: Specimen Type : BLOOD SPECIMENOrdering Facility: [facility] Address: [address] [place], [place] [address] Performed By: #### MARIELLA PAGE , , 3 ####[facility] [id number] [place] [address] [place] Bilirubin [Mass/Vol] 0.2 mg/dL Normal 0.2-1.3 [facility] Comment on above: Order Comment: Specimen Type : BLOOD SPECIMENOrdering Facility: [facility] Address: [address] [place] [phone] Performed By: #### MARIELLA PAGE , , 3 ####[facility] [id number] [address] [address] [place] Calcium [Mass/Vol] 9.2 mg/dL Normal 8.5-10.2 [facility] Comment on above: Order Comment: Specimen Type : BLOOD SPECIMENOrdering Facility: [facility] Address: [address] [place] [address] Performed By: #### MARIELLA PAGE , , 3 ####[facility] [id number] [place] [address] [place] Chloride [Moles/Vol] 99 mmol/L Normal 97-105 [facility] Comment on above: Order Comment: Specimen Type : BLOOD SPECIMENOrdering Facility: [facility] Address: [address] [place], [place] [address] Performed By: #### MARIELLA PAGE , , 3 ####[facility] [id number] [place], [place] [address] [place] CO2 [Moles/Vol] 29 mmol/L Normal 22-30 [facility] Comment on above: Order Comment: Specimen Type : BLOOD SPECIMENOrdering Facility: [facility] Address: [address] [place] [address] Performed By: #### MARIELLA PAGE , , 3 ####[facility] [id number] [place], [place] [address] [place] Creatinine [Mass/Vol] 0.74 mg/dL Normal 0.58-0.96 [facility] Comment on above: Order Comment: Specimen Type : BLOOD SPECIMENOrdering Facility: [facility] Address: [address] [place] [address] Performed By: #### MARIELLA PAGE , , 3 ####[facility] [id number] [place] [address] [place] ESTIMATED GLOMERULAR 90 mL/min/1.73m??? Normal >=60 [facility] FILTRATION RATE Comment on above: Order Comment: Specimen Type : BLOOD SPECIMENOrdering Facility: [facility] Address: [address] [place] [address] Result Comment: Estimated Gl omerular Filtration Rate [...] GFR. Performed By: #### FT4, FERR , 77991-4, 6-3 ####[facility] [id number] [address] [address] [place] Glucose [Mass/Vol] 103 mg/dL High 74-99 [facility] Comment on above: Order Comment: Specimen Type : BLOOD SPECIMENOrdering Facility: [facility] Address: [address] [place], [place] [address] Result Comment: The [place] Diabetes Association (ADA) provides guidance for cutoff [...] for diagnosis of diabetes. Reference: Standards of [facility] Care in Diabetes 2016, [place] [employer]. Diabetes Care. 2016.39(Suppl 1). Performed By: #### FT4, FERR , 78657-8, 6-3 ####[facility] [id number] [address] [address] [place] Potassium [Moles/Vol] 4.1 mmol/L Normal 3.7-5.1 [facility] Comment on above: Order Comment: Specimen Type : BLOOD SPECIMENOrdering Facility: [facility] Address: [address] [place] [address] Performed By: #### MARIELLA PAGE , 96567-9, 6-3 ####[facility] [id number] [place], [place] [address] [place] Protein [Mass/Vol] 6.9 g/dL Normal 6.3-8.0 [facility] Comment on above: Order Comment: Specimen Type : BLOOD SPECIMENOrdering Facility: [facility] Address: [address] [place], [place] [address] Performed By: #### MARIELLA PAGE , 26656-1, 3015-3 ####[facility] [id number] [address] [place] [address] [place] Sodium [Moles/Vol] 139 mmol/L Normal 136-144 [facility] Comment on above: Order Comment: Specimen Type : BLOOD SPECIMENOrdering Facility: [facility] Address: [address] [place], [place] [address] Performed By: #### MARIELLA PAGE , 15227-2, 3 ####[facility] [id number] [place], [place] [address] [place] Urea nitrogen [Mass/Vol] 12 mg/dL Normal 7-21 [facility] Comment on above: Order Comment: Specimen Type : BLOOD SPECIMENOrdering Facility: [facility] Address: [address] [place], [place] [address] Performed By: #### MARIELLA PAGE , 00001-4, 6-3 ####[facility] [id number] [place], [place] [address] [place] Cortis SerPl-mCnc on 09-09-2021 Cortisol [Mass/Vol] 6.1 ug/dL Normal 4.8-19.5 [facility] Comment on above: Order Comment: Specimen Type : BLOOD SPECIMENOrdering Facility: [facility] Address: [address] [place] [address] Result Comment: Provided ref erence range is from 6-10 AM sample collection time. Cortisol Reference Range: 6- 10 AM = 4.8-19.5 ug/dL, 4-8 PM = 2.5-11.9 ug/dL Performed By: #### 2143-6 ## ##[facility] [id number] [place] [address] [place] [facility] FERRITIN BLD on 09-09-2021 Ferritin [Mass/Vol] 521.0 ng/mL High 14.7-205.1 [facility] Comment on above: Order Comment: Specimen Type : BLOOD SPECIMENOrdering Facility: [facility] Address: [address] [place] [address] Performed By: #### FT4, FERR , 60632-9, 3016-3 ####[facility] [id number] [place] [address] [place] HGB A1C on 09-09-2021 Average glucose Estimated from glycated 105 mg/dL Normal [facility] hemoglobin (Bld) [Mass/Vol] Comment on above: Order Comment: Specimen Type : BLOOD SPECIMENOrdering Facility: [facility] Address: [address] [place] [address] Result Comment: eAG: (Estima meredith average glucose) is a calculated value from HgbA1c and is rep resentative of the average blood glucose level in the last 2- 3 month period. Performed By: #### HBA1C ### #[facility] [id number] [place] [address] [place] HbA1c (Bld) [Mass fraction] 5.3 % Normal 4.3-5.6 [facility] Comment on above: Order Comment: Specimen Type : BLOOD SPECIMENOrdering Facility: [facility] Address: [address] [place] [address] Result Comment: [place] Ivette betes Association guidelines indicate that patients with HgbA1c in the range 5.7-6.4% are at increased risk for development of diab etes, and intervention by lifestyle modification may be benefici al. HgbA1c greater or equal to 6.5% is considered diagnostic of ivette betes. Performed By: #### HBA1C ### #[facility] [id number] [place] [id number] [place] [facility] T4 FREE/FREE THYROX on 09-09-2021 Free T4 [Mass/Vol] 1.1 ng/dL Normal 0.9-1.7 [facility] Comment on above: Order Comment: Specimen Type : BLOOD SPECIMENOrdering Facility: [facility] Address: [address] [place] [address] Performed By: #### FT4, FERR , 71600-2, 3016-3 ####[facility] [id number] [place] [address] [place] [facility] on 09-09-2021 TSH Qn 0.382 m[IU]/L Normal 0.270-4.[address] [facility] Comment on above: Order Comment: Specimen Type : BLOOD SPECIMENOrdering Facility: [facility] Address: [address] [place] [address] Performed By: #### FT4, FERR , 09959-4, 3016-3 ####[facility] [id number] [address] [place] VITAMIN D 25 HYDROXY on 09-09-2021 25-hydroxyvitamin D3 [Mass/Vol] 38.1 ng/mL Normal 31.0-80.0 [facility] Comment on above: Order Comment: Specimen Type : BLOOD SPECIMENOrdering Facility: [facility] Address: [address] [place], [place] [address] Result Comment: Classificati on of 25 [place] Vitamin D status: Deficiency/Insufficiency: < or = 30 ng/ml. Sufficiency/Optimal Levels: 31-80 ng/mL Toxicity: > 100 ng/mL. Test performed by chemilumin escent immunoassay. Performed By: #### VITD #### [facility] [id number] [place] [address] [place] CNOV on 09-08-2021 CNOV Office Visit (CARDLUIS EDUARDO) Normal [facility] [facility] VIVIANA SANTANA ([id number]) 1955 [facility] Date Time Provider Department 09/08/21 3:00 PM YOVANI PIEDRA During your visit today, we recorded the following inf ormation about you: Pulse Blood pressure Weight Height 86/minute 102/58 82.4 kg 1.626 m Yovani Piedra DO 09/08/2021 3:26 PM Signed [facility] [place] [facility] [place] Department of Cardiovascula r Medicine [...] respiratory failure again. She did got to [facility] for pneumonia admit in January 2019: Preadmission evaluation: SOB and cough x 2 days. No fe kameron. had URI. Which facility: [facility] Dates of visit: !-02/02/19 Primary Diagnosis/es: MSSA, [...] majority of her time. She was admitted [facility] in April with sepsis and pneumonia [...] and bronchiectasis. ?She follows pulmonary at the [facility] now. ?There was a note that they [...] Visit (PULMWS) Normal [place] [facility] VIVIANA Simpson ([id number]) 1955 [facility] Time Provider Department 08/07/21 2:30 PM JACQUELIN PATEL PULMWS During your visit today, we recorded the following inf ormation about you: Pulse Blood pressure Weight 93/minute 131/77 84.4 kg Jacquelin Patel PA-C 08/07/2021 3:01 PM Signed [facility] [place], 08/07/2021: Name: Viviana Santana : 1955 ? [...] wor se with seasonal allergies. Clear to [place] sputum. No hemoptysis. Frequent wheezing. No dyspnea [...] 84.4 kg (186 lb) SpO2 96% B VT 31.93 kg/m? Gen: No acute distress. Cooperative [...] addressed the questions of the patient, and ptaricia hernandez expressed understanding and acceptance of my answers. Jacquelin Patel PA-C Referring Provider: JACQUELIN PATEL [[id number]] Allergies As of Date: 08/07/2021 Noted Allergy Reactio n RAGWEED 03/10/2011 14 - Other: See Comments TREES 03/10/2011 14 - Other: See Comments Date Reviewed: 08/07/2021 Reviewed by: Jacquelin Patel PA-C - Fully Assessed Reason for Visit: Established Patient [175] COPD [27] Primary Visit Diagnosis:Stag e 3 severe COPD by GOLD classification ([facility]) [J44.9] Other Visit Diagnoses:Bronchiectasis without complicat ion ([facility]) [J47.9] ILD (interstitial lung disease) ([facility]) [J84.9] Chronic respiratory failure with hypoxia ([facility]) [J96.11 ] Order(s):budesonide (PULMICORT) 0.5 mg/2 mL nebulizer solutionUse 2 mL via nebulizer once daily. INHALE 2 ML BY NEBULIZER OVER 5- 15 MINUTES EVERY 12 HOURS.Disp: 60 VialRfl: 11 ipratropium-albuterol (DUONE B) 0.5 mg-3 mg(2.5 mg b (more content not included)... SIX MINUTE WALK on 08-07-2021 [facility] SPIROMETRY BASELINE ONLY on 08-07-2021 DLCO (ml/min/mmHg) 6.77 ml/min/mmHg [facility] DLCO/VA (ml/min/mmHg/L) 1.94 ml/min/mmHg/L [facility] PQS39-14% PRE (L/S) 0.63 L/S [facility] FEV1 PRE (L) 1.15 L [facility] FEV1/FVC PRE (%) 0.66 % [facility] FVC PRE (L) 1.74 L [facility] PEF PRE (L/S) 2.55 L/S [facility] ic VA (L) 3.49 L [facility] CNCO on 08-05-2021 CNCO Letter Text Normal [facility] CNPN on 08-01-2021 CNPN Telephone (FAMPWS) Normal [place] [facility] VIVIANA SANTANA ([id number]) 1955 [facility] Date Time Provider Department 08/01/21 Alexa BECERRA [...] with Rheumatology until early September. Patient uses [facility] for her pharmacy. Patient said the prednisone [...] times daily for 180 days . [facility] Portable oxygen concentrator 3l/min at [...] (HCC) J96.11 Chronic respiratory failure with hypoxia ([facility]) - COMPOUNDED PRESCRIPTION Face mask: hypoxia - [...] included)... CNPN on 07-02-2021 CNPN Telephone (INTMWS) [facility] VIVIANA Simpson ([id number]) 1955 [facility] Date Time Provider Department 07/02/21 Alexa BECERRA [...] below and follow up with patient at [phone]. Jacquelin Alexa Gomez Pss 07/04/2021 3:24 PM [...] times daily for 180 days . - [facility] Medical Supply Portable oxygen concentrator 3l/min [...] diagnosis) J84.9 ILD (interstitial lung dise ase) ([facility]) - COMPOUNDED PRESCRIPTION #1 Continuous Flow Stationary O2 Concentrator Sig: O2 2l/min liter flow Patient is to keep portablel concentrator as well J43. 2 Centrilobular emphysema (HCC) J84.9 ILD (interstitial lung disease) ([facility]) J96.11 Chronic respiratory failure with hypoxia ([facility]) - COMPOUNDED PRESCRIPTION Face mask: hy (more content not included)... CNPN on 06-24-2021 CNPN Telephone (RHBATH) Normal [facility] VIVIANA Beverly ([id number]) 1955 F Medical Date Time Provider Department [...] times daily for 180 days . 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 CNPN on 06-23-2021 MELISAN Telephone (FAMPWS) [facility] VIVIANA Simpson ([id number]) 1955 [facility] Date Time Provider Department 06/23/21 Alexa BECERRA During your visit today, we recorded the following inf ormation about you: Brandy Odonnell ROBERTA 06/23/2021 12:47 PM Signed Patient calling she had her appt with Dr Begum to day. She said Rufino Becerra can review what Dr Begum said. Patient is ask ing for prednisone rx to go to [facility] pharmacy. Please advise Alexa Becerra PA-C 06/23/2021 [...] diagnosis) J84.9 ILD (interstitial lung dise ase) ([facility]) - COMPOUNDED PRESCRIPTION #1 Continuous Flow Stationary O2 Concentrator Sig: O2 2l/min liter flow Patient is to keep portablel concentrator as well J43. 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 CNOV on 06-19-2021 CNOV Office Visit (FAMPWS) Normal [facility] VIVIANA Simpson ([id number]) 1955 [facility] Time Provider Department 06/19/21 3:00 PM [...] Abs Lymph 1.00 - 4.00 k/uL 1.45 Traill% % 3.8 Abs Traill <0.87 k/uL 0.58 Eosin% % 2.0 Abs [...] Sites Wi th Positive Rheumatoid Factor (Hcc) Mcc Current Use of Immunosuppressive Drug Paroxysmal Atrial Fibrillation (Hcc) Hyperthyroidism Normocytic Anemia Pre-Diabetes Current Chronic Use of Systemic Steroids Type 2 Diabetes Mellitus Wit hout Complication, Without Long-Term Current Use of Insulin (Hcc) Regular Astigmatism, Bilateral Vitreous Floaters of Both Eyes Pseudophakia of Both Eye (more content not included).. . CNPN on 06-18-2021 CNPN Telephone (FAMPWS) [facility] VIVIANA SANTANA ([id number]) 1955 [facility] Time Provider Department 06/18/21 Alexa BECERRA [...] 08/25/2018 Lung nodule, multiple [R91.8] 01/03/2017 Iatrogenic [place]'s disease (HCC) [E24.2] 05/19/2017 05/19/2017 Iatrogenic adrenal insufficiency (HCC) [E27.49] 2017 Chronic respiratory failure with hypoxia (HCC) *2017 Rheumatoid arthritis involving multiple sites w*2017 halfway current use of immunosuppressive drug*2017 Paroxysmal atrial fibrillation (HCC) [I48.0] 8 Hyperthyroidism [E05.90] 05/10/2017 Normocytic anemia [D64.9] 05/28/2017 Pre-diabetes [R73.03] 06/28/2017 Current chronic use of systemic steroids [Z79.5*2017 Type 2 diabetes mellitus without complicat (more césar nt not included)... BLOOD TB SCREEN, INCUBATED on 2 M. tuberculosis tuberculin stim Negative Normal NEGAT [facility] IFN-g Ql (Bld) Comment on above: Order Comment: Specimen Type : BLOOD SPECIMEN Performed By: #### INTPGP ## ##[facility] LAB[facility] [id number] [address] [address] [place] MITOGEN MINUS NIL 4.06 Normal [facility] Comment on above: Order Comment: Specimen Type : BLOOD SPECIMEN Performed By: #### INTPGP ## ##[facility] LAB[facility] [id number] [address] [address] [place] TB INTERPRETATION No evidence of current or Normal [facility] previous infection with Cent er Mycobacterium tuberculosis. Comment on above: Order Comment: Specimen Type : BLOOD SPECIMEN Performed By: #### INTPGP ## ##[facility] LAB[facility] [id number] [address] [address] [place] TB NIL 0.07 IU/mL Normal [facility] Comment on above: Order Comment: Specimen Type : BLOOD SPECIMEN Performed By: #### INTPGP ## ##[facility] LABCLIA [id number] [address] [address] [facility] AMERI [place] TB1 AG MINUS NIL 0.00 IU/mL Normal <0.35 [facility] Comment on above: Order Comment: Specimen Type : BLOOD SPECIMEN Performed By: #### INTPGP ## ##[facility] [id number] [address] [address] [facility] AMER[place] TB2 AG MINUS NIL 0.00 IU/mL Normal <0.35 [facility] Comment on above: Order Comment: Specimen Type : BLOOD SPECIMEN Performed By: #### INTPGP ## ##[facility] LABCLIA [id number] [address] [place] [id number] [facility] [place] CBC W Auto Differential panel (Bld) on 05-12-2021 Basophils (Bld) [#/Vol] 0.10 10*3/uL Normal <0.11 [facility] Comment on above: Order Comment: Specimen Type : BLOOD SPECIMEN Performed By: #### 02604-8 # ###[facility]ATORYCLIA [id number] [place], [place] [address] [place] [address] [place] Basophils/100 WBC (Bld) 0.6 % Normal [facility] Comment on above: Order Comment: Specimen Type : BLOOD SPECIMEN Performed By: #### 64782-3 # ###[facility]ORATORYCLIA [id number] [place] [address] [place] Differential cell count method Nom (Bld) Auto Normal [facility] Comment on above: Order Comment: Specimen Type : BLOOD SPECIMEN Performed By: #### 16475-4 # ###[facility]ATORYCLIA [id number] [place] [address] [place] Eosinophils (Bld) [#/Vol] 0.31 10*3/uL Normal <0.46 [facility] Comment on above: Order Comment: Specimen Type : BLOOD SPECIMEN Performed By: #### 71280-7 # ###[facility]ORATORYCLIA [id number] [place] [address] [facility] OF [facility] Eosinophils/100 WBC (Bld) 2.0 % Normal [facility] Comment on above: Order Comment: Specimen Type : BLOOD SPECIMEN Performed By: #### 84268-8 # ###[facility]ATORYCLIA [id number] [facility] [place] [address] [place] [address] OF [place] Erythrocyte distribution width 13.7 % Normal 11.5-15.0 [facility] (RBC) [Ratio] Comment on above: Order Comment: Specimen Type : BLOOD SPECIMEN Performed By: #### 22519-0 # ###[facility]ORATORYCLIA [id number] [facility] [place] [address] [place] [address] OF [facility] Hematocrit (Bld) [Volume 39.7 % Normal 36.0-46.0 [facility] fraction] Comment on above: Order Comment: Specimen Type : BLOOD SPECIMEN Performed By: #### 25460-6 # ###[facility]ORATORYCLIA [id number] [facility] [place] [address] [facility] OF [facility] Hemoglobin (Bld) [Mass/Vol] 11.4 g/dL Low 11.5-15.5 [facility] Comment on above: Order Comment: Specimen Type : BLOOD SPECIMEN Performed By: #### 04741-2 # ###[facility]ATORYCLIA [id number] [place] [address] [place] IMMATURE GRAN % 0.8 % Normal [facility] Comment on above: Order Comment: Specimen Type : BLOOD SPECIMEN Performed By: #### 37119-9 # ###[facility]ORATORYCLIA [id number] [place] [address] [facility] OF [facility] IMMATURE GRAN ABS 0.12 k/uL High <0.10 [facility] Comment on above: Order Comment: Specimen Type : BLOOD SPECIMEN Performed By: #### 01619-9 # ###[facility]ATORYCLIA [id number] [facility] [place], [address] Lymphocytes (Bld) [#/Vol] 1.45 10*3/uL Normal 1.00-4.00 [facility] Comment on above: Order Comment: Specimen Type : BLOOD SPECIMEN Performed By: #### 26298-6 # ###[facility]ATORYCLIA [id number] [facility] [place], [address] Lymphocytes/100 WBC (Bld) 9.4 % Normal [facility] Comment on above: Order Comment: Specimen Type : BLOOD SPECIMEN Performed By: #### 49723-9 # ###[facility]ORYCLIA [id number] [facility] EN[facility], [address] MCH (RBC) [Entitic mass] 30.1 pg Normal 26.0-34.0 [facility] Comment on above: Order Comment: Specimen Type : BLOOD SPECIMEN Performed By: #### 99629-3 # ###[facility]ORYCLIA [id number] [facility], [address] MCHC (RBC) [Mass/Vol] 28.7 g/dL Low 30.5-36.0 [facility] Comment on above: Order Comment: Specimen Type : BLOOD SPECIMEN Performed By: #### 68565-5 # ###[facility]ATORYCLIA [id number] [facility], [address] OF [facility] MCV (RBC) [Entitic vol] 104.7 fL High 80.0-100.0 [facility] Comment on above: Order Comment: Specimen Type : BLOOD SPECIMEN Performed By: #### 22325-4 # ###[facility]ORYCLIA [id number] [facility], [address] Monocytes (Bld) [#/Vol] 0.58 10*3/uL Normal <0.87 [facility] Comment on above: Order Comment: Specimen Type : BLOOD SPECIMEN Performed By: #### 16689-8 # ###[facility]ATORYCLIA [id number] [facility], [address] Monocytes/100 WBC (Bld) 3.8 % Normal [facility] Comment on above: Order Comment: Specimen Type : BLOOD SPECIMEN Performed By: #### 20911-7 # ###[facility]ORATORYCLIA [id number] [place] [address] [facility] Neutrophils (Bld) [#/Vol] 12.87 10*3/uL High 1.45-7.50 [facility] Comment on above: Order Comment: Specimen Type : BLOOD SPECIMEN Performed By: #### 11233-5 # ###[facility]ORATORYCLIA [id number] [place] [address] [facility] Neutrophils/100 WBC (Bld) 83.4 % Normal [facility] Comment on above: Order Comment: Specimen Type : BLOOD SPECIMEN Performed By: #### 36123-0 # ###[facility]ORATORYCLIA [id number] [facility] [place] [address] [place] [address] Nucleated RBC (Bld) [#/Vol] 10*3/uL Normal <0.01 [facility] Comment on above: Order Comment: Specimen Type : BLOOD SPECIMEN Performed By: #### 12322-6 # ###[facility]ORATORYCLIA [id number] [facility] [place] [address] [place] [address] OF [facility] Nucleated RBC/100 WBC (Bld) 0.0 /100 WBC Normal 0.0 [facility] [Ratio] Comment on above: Order Comment: Specimen Type : BLOOD SPECIMEN Performed By: #### 50137-1 # ###[facility]ORATORYCLIA [id number] [place] [address] [facility] Platelet mean volume (Bld) 10.2 fL Normal 9.0-12.7 [facility] [Entitic vol] Comment on above: Order Comment: Specimen Type : BLOOD SPECIMEN Performed By: #### 89960-6 # ###[facility]ORATORYCLIA [id number] [place] [address] [facility] OF [place] Platelets (Bld) [#/Vol] 381 10*3/uL Normal 150-400 [facility] Comment on above: Order Comment: Specimen Type : BLOOD SPECIMEN Performed By: #### 09402-9 # ###[facility] LABORATORYCLIA [id number] [place], [place] [address] [place] [address] RBC (Bld) [#/Vol] 3.79 10*6/uL Low 3.90-5.20 [facility] Comment on above: Order Comment: Specimen Type : BLOOD SPECIMEN Performed By: #### 17311-8 # ###[facility] LABORATORYCLIA [id number] [place], [place] [address] [place] [address] WBC (Bld) [#/Vol] 15.43 10*3/uL High 3.70-11.00 [facility] Comment on above: Order Comment: Specimen Type : BLOOD SPECIMEN Performed By: #### 20868-1 # ###[facility] LABORATORYCLIA [id number] [address] CCP ANTIBODY IGG on 05-12-2021 Cyclic citrullinated peptide IgG Qn >250 High <20 [facility] Comment on above: Order Comment: Specimen Type : BLOOD SPECIMEN Result Comment: < 20 units: Negative 20-39 units: Weak Positive 40-59 units: Moderate Positi ve > 60 units: Strong Positive The following results were o btained with the [employer] QUANTA Lite CCP3 IgG HELIO. Anti-CCP values obtained with different manufacturers' assay methods may not be used interchangeably. The magnitude of the reported IgG levels cannot b e correlated to an endpoint titer. Performed By: #### CCP, RF # ###[facility] LABCLIA [id number] [address] [id number] [address] [place] OF [facility] Comprehensive metabolic 2000 panel on 05-12-2021 Albumin [Mass/Vol] 3.7 g/dL Low 3.9-4.9 [facility] Comment on above: Order Comment: Specimen Type : BLOOD SPECIMEN Performed By: #### 57004-0 # ###[facility] LABORATORYCLIA [id number] [place] [address] [facility] OF [place] ALP [Catalytic activity/Vol] 98 U/L Normal 34-123 [facility] Comment on above: Order Comment: Specimen Type : BLOOD SPECIMEN Performed By: #### 15604-2 # ###[facility]ORATORYCLIA [id number] [place] [address] [facility] ALT With P-5'-P [Catalytic activity/Vol] 6 U/L Low 7-38 [facility] Comment on above: Order Comment: Specimen Type : BLOOD SPECIMEN Performed By: #### 48168-9 # ###[facility]ORATORYCLIA [id number] [place] [address] [facility] Anion gap [Moles/Vol] 10 mmol/L Normal 9-18 [facility] Comment on above: Order Comment: Specimen Type : BLOOD SPECIMEN Performed By: #### 19879-3 # ###[facility]ORATORYCLIA [id number] [place] [address] [facility] AST With P-5'-P [Catalytic 12 U/L Low 13-35 A [facility] activity/Vol] Comment on above: Order Comment: Specimen Type : BLOOD SPECIMEN Performed By: #### 70702-8 # ###[facility]ATORYCLIA [id number] [place] [address] [place] Bilirubin [Mass/Vol] 0.2 mg/dL Normal 0.2-1.3 [facility] Comment on above: Order Comment: Specimen Type : BLOOD SPECIMEN Performed By: #### 12126-3 # ###[facility]ATORYCLIA [id number] [place] [address] [place] Calcium [Mass/Vol] 8.9 mg/dL Normal 8.5-10.2 [facility] Comment on above: Order Comment: Specimen Type : BLOOD SPECIMEN Performed By: #### 81490-1 # ###[facility]ORATORYCLIA [id number] [place] [address] [place] Chloride [Moles/Vol] 105 mmol/L Normal 97-105 [facility] Comment on above: Order Comment: Specimen Type : BLOOD SPECIMEN Performed By: #### 66675-6 # ###[facility] LABORATORYCLIA [id number] [facility], [place] [address] [place] [address] OF [facility] CO2 [Moles/Vol] 27 mmol/L Normal 22-30 [facility] Comment on above: Order Comment: Specimen Type : BLOOD SPECIMEN Performed By: #### 00547-1 # ###[facility] LABORATORYCLIA [id number] [place], [place] [address] [place] [address] STATES [facility] Creatinine [Mass/Vol] 0.78 mg/dL Normal 0.58-0.96 [facility] Comment on above: Order Comment: Specimen Type : BLOOD SPECIMEN Performed By: #### 81984-2 # ###[facility] LABORATORYCLIA [id number] [address] STATES OF [facility] GFR/1.73 sq M.predicted MDRD mL/min/{1.73_m2} Normal [facility] (S/P/Bld) [Vol rate/Area] Ce nter Comment on above: Order Comment: Specimen Type : BLOOD SPECIMEN Result Comment: >60 eGFR (Estimated GFR) Units o f measure: mL/min/1.73 meters squared eGFR is derived from the ree xpressed MDRD Study equation using the following parameters: serum creatinine, age, gender and race. The creatinine assay has been calibrated to be traceable to IDCA. An eGFR <60 mL/min/1.73m2 for >3 mo nths is consistent with chronic kidney disease. Refer to KDOQI guidelines for clinical interpretation. In patients with unstable renal function, e.g. those with acute k idney injury, the eGFR may n ot accurately reflect actual GFR. Performed By: #### 75928-9 # ###[facility] LABORATORYCLIA [id number] [facility], [place] [address] [place] [address] OF [place] Glucose [Mass/Vol] 89 mg/dL Normal 74-99 [facility] Comment on above: Order Comment: Specimen Type : BLOOD SPECIMEN Result Comment: The [place] Diabetes Association (ADA) provides guidance for cutoff [...] for diagnosis of diabetes. Reference: Standards of [facility] in Diabetes 2016, [place] [employer] Association. Diabetes Care. 2016.39(Suppl 1). Performed By: #### 03664-3 # ###[facility] LABORATORYCLIA [id number] [facility] [place] [address] [place] Potassium [Moles/Vol] 3.9 mmol/L Normal 3.7-5.1 [facility] Comment on above: Order Comment: Specimen Type : BLOOD SPECIMEN Performed By: #### 42894-0 # ###[facility] LABORATORYCLIA [id number] [facility] [place] [address] [place] Protein [Mass/Vol] 6.5 g/dL Normal 6.3-8.0 [facility] Comment on above: Order Comment: Specimen Type : BLOOD SPECIMEN Performed By: #### 10520-1 # ###[facility] LABORATORYCLIA [id number] [place] [address] [place] Sodium [Moles/Vol] 142 mmol/L Normal 136-144 [facility] Comment on above: Order Comment: Specimen Type : BLOOD SPECIMEN Performed By: #### 85859-6 # ###[facility] LABORATORYCLIA [id number] [place] [address] [place] Urea nitrogen [Mass/Vol] 13 mg/dL Normal 7-21 [facility] Comment on above: Order Comment: Specimen Type : BLOOD SPECIMEN Performed By: #### 06888-3 # ###[facility]ATORYCLIA [id number] [place] [address] [place] HBV surface Ab IA Ql (S) on 05-12-2021 HBV surface Ag Ql (S) Negative Normal Negative [facility] Comment on above: Order Comment: Specimen Type : BLOOD SPECIMEN Performed By: #### 77731-1 # ###[facility] LABORATORYCLIA [id number] [place] [address] [facility] OF [place] HBV surface Ab Ser-aCnc on 05-12-2021 HBV surface Ab Qn (S) <3.10 Normal <10.00 [facility] Comment on above: Order Comment: Specimen Type : BLOOD SPECIMEN Result Comment: Patient is c onsidered not to have protective immunity to HBV infection. Performed By: #### 42623-6 # ###[facility] LABORATORYCLIA [id number] [place] [address] [facility] HCV Ab Ser Ql on 05-12-2021 HCV Ab Ql (S) Negative Normal Negative [facility] Comment on above: Order Comment: Specimen Type : BLOOD SPECIMEN Performed By: #### 44363-0 # ###[facility] LABORATORYCLIA [id number] [place] [address] [facility] OF [facility] HEP B CORE AB TOTAL on 05-12-2021 HBV core Ab Ql (S) Negative Normal NEGAT [facility] Comment on above: Order Comment: Specimen Type : BLOOD SPECIMEN Performed By: #### AHBCOT ## ##[facility] LABCLIA [id number] [address] [address] [facility] RHEUMATOID FACTOR BL on 05-12-2021 Rheumatoid factor Qn 441 [IU]/mL High <16 [facility] Comment on above: Order Comment: Specimen Type : BLOOD SPECIMEN Performed By: #### CCP, RF # ###[facility] LABCLIA [id number] [address] [address] [facility] VITAMIN D 25 HYDROXY on 05-12-2021 25-hydroxyvitamin D3 [Mass/Vol] 10.4 ng/mL Low 30.0-100. 0 [facility] Comment on above: Order Comment: Specimen Type : BLOOD SPECIMEN Result Comment: Classificati on of 25 [place] Vitamin D status: Deficiency: < 20 ng/ml. Insufficientcy: 20-30 ng/ml. Sufficiency: 30-100 ng/ml. Performed By: #### VITD #### [facility] LABORATORYCLIA [id number] [facility] [place] [address] [facility] OF [facility] XR CERVICAL 2V AP/LAT on 05-12-2021 XR CERVICAL 2V AP/LAT * * *Final Report* * * Normal [facility] DATE OF EXAM: May 12 2021 12:30PM [facility] AWX 5308 - XR CERVICAL 2V AP/LAT [...] 3V PA/LAT/OBL RT -- NOT APPLICABLE (accession [id number]), NOT APPLICABL E (accession [id number]), BILATERAL (accession [id number]), NOT APPLI CABLE (accession [id number]) with 2 (accession [id number]), 2 (accession [id number]), 1 (accession [id number]), 2 (accession [id number]) views o n 2 (accession [id number]), 2 (accession [id number]), 1 (accession [id number]), 2 (accession [id number]) images Comparison: None RESULT: Cervical spine: Counting [...] Hallux valgus and digital contractures bi laterally. 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 Customs Director: [employer] Transcribe Date/Time: May 12 2021 1:57P Dictated by : GLO PERES MD This examination was interpreted and the report review ed and electronically signed by: GLO PERES MD on May 12 2021 2:06PM EST [id number] XR FOOT 3V AP/LAT/OBL LT on 05-12-2021 XR FOOT 3V AP/LAT/OBL * * *Final Report* * * Normal [facility] DATE OF EXAM: May 12 2021 12:30PM [facility] AWX 5336 - XR FOOT 3V AP/LAT/OBL LT / [id number] PROCEDURE REASON: Pain in joint, multiple sites [...] 3V PA/LAT/OBL RT -- NOT APPLICABLE (accession [id number]), NOT APPLICABL E (accession [id number]), BILATERAL (accession [id number]), NOT APPLI CABLE (accession [id number]) with 2 (accession [id number]), 2 (accession [id number]), 1 (accession [id number]), 2 (accession [id number]) views o n 2 (accession [id number]), 2 (accession [id number]), 1 (accession [id number]), 2 (accession [id number]) images Comparison: None RESULT: Cervical spine: Counting [...] Hallux valgus and digital contractures bi laterally. District Customs Director: [facility] Transcribe Date/Time: May 12 2021 1:57P Dictated by : GLO PERES MD This examination was interpreted and the report review ed and electronically signed by: GLO PERES MD on May 12 2021 2:06PM EST [id number] XR FOOT 3V AP/LAT/OBL RT on 05-12-2021 XR FOOT 3V AP/LAT/OBL * * *Final Report* * * Normal [facility] RT DATE OF EXAM: May 12 2021 12:30PM [facility] AWX 5337 - XR FOOT 3V AP/LAT/OBL RT / [id number] PROCEDURE REASON: Pain in joint, multiple sites [...] 3V PA/LAT/OBL RT -- NOT APPLICABLE (accession [id number]), NOT APPLICABL E (accession [id number]), BILATERAL (accession [id number]), NOT APPLI CABLE (accession [id number]) with 2 (accession [id number]), 2 (accession [id number]), 1 (accession [id number]), 2 (accession [id number]) views o n 2 (accession [id number]), 2 (accession [id number]), 1 (accession [id number]), 2 (accession [id number]) images Comparison: None RESULT: Cervical spine: Counting [...] Hallux valgus and digital contractures bi laterally. District Customs Director: OLGA Transcribe Date/Time: May 12 2021 1:57P Dictated by : GLO PERES MD This examination was interpreted and the report review ed and electronically signed by: GLO PERES MD on May 12 2021 2:06PM EST [id number] XR HAND 3V PA/LAT/OBL LT on 05-12-2021 XR HAND 3V PA/LAT/OBL * * *Final Report* * * Normal [facility] LT DATE OF EXAM: May 12 2021 12:30PM [facility] AWX 5345 - XR HAND 3V PA/LAT/OBL LT / [id number] PROCEDURE REASON: Pain in joint, multiple sites [...] 3V PA/LAT/OBL RT -- NOT APPLICABLE (accession [id number]), NOT APPLICABL E (accession [id number]), BILATERAL (accession [id number]), NOT APPLI CABLE (accession [id number]) with 2 (accession [id number]), 2 (accession [id number]), 1 (accession [id number]), 2 (accession [id number]) views o n 2 (accession [id number]), 2 (accession [id number]), 1 (accession [id number]), 2 (accession [id number]) images Comparison: None RESULT: Cervical spine: Counting [...] Hallux valgus and digital contractures bi laterally. District Customs Director: PSCB Transcribe Date/Time: May 12 2021 1:57P Dictated by : GLO PERES MD This examination was interpreted and the report review ed and electronically signed by: GLO PERES MD on May 12 2021 2:06PM EST [id number] XR HAND 3V PA/LAT/OBL RT on 05-12-2021 XR HAND 3V PA/LAT/OBL * * *Final Report* * * Normal [facility] RT DATE OF EXAM: May 12 2021 12:30PM [facility] AWX 5346 - XR HAND 3V PA/LAT/OBL RT / [id number] PROCEDURE REASON: Pain in joint, multiple sites [...] 3V PA/LAT/OBL RT -- NOT APPLICABLE (accession [id number]), NOT APPLICABL E (accession [id number]), BILATERAL (accession [id number]), NOT APPLI CABLE (accession [id number]) with 2 (accession [id number]), 2 (accession [id number]), 1 (accession [id number]), 2 (accession [id number]) views o n 2 (accession [id number]), 2 (accession [id number]), 1 (accession [id number]), 2 (accession [id number]) images Comparison: None RESULT: Cervical spine: Counting [...] Hallux valgus and digital contractures bi laterally. District Customs Director: OLGA Transcribe Date/Time: May 12 2021 1:57P Dictated by : GLO PERES MD This examination was interpreted and the report review ed and electronically signed by: GLO PERES MD on May 12 2021 2:06PM EST [id number] XR KNEE SURVEY 1V AP RYAN on 05-12-2021 XR KNEE SURVEY 1V AP * * *Final Report* * * Normal [facility] RYAN DATE OF EXAM: May 12 2021 12:30PM [facility] AWX 5213 - XR KNEE SURVEY 1V AP RYAN / [id number] PROCEDURE REASON: Pain in joint, multiple sites [...] 3V PA/LAT/OBL RT -- NOT APPLICABLE (accession [id number]), NOT APPLICABL E (accession [id number]), BILATERAL (accession [id number]), NOT APPLI CABLE (accession [id number]) with 2 (accession [id number]), 2 (accession [id number]), 1 (accession [id number]), 2 (accession [id number]) views o n 2 (accession [id number]), 2 (accession [id number]), 1 (accession [id number]), 2 (accession [id number]) images Comparison: None RESULT: Cervical spine: Counting [...] Hallux valgus and digital contractures bi laterally. District Customs Director: PSCB Transcribe Date/Time: May 12 2021 1:57P Dictated by : GLO PERES MD This examination was interpreted and the report review ed and electronically signed by: GLO PERES MD on May 12 2021 2:06PM EST [id number] XR LUMBAR 2V AP/LAT on 05-12-2021 XR LUMBAR 2V AP/LAT * * *Final Report* * * Normal [facility] DATE OF EXAM: May 12 2021 12:30PM [facility] AWX 5229 - XR LUMBAR 2V AP/LAT [...] 3V PA/LAT/OBL RT -- NOT APPLICABLE (accession [id number]), NOT APPLICABL E (accession [id number]), BILATERAL (accession [id number]), NOT APPLI CABLE (accession [id number]) with 2 (accession [id number]), 2 (accession [id number]), 1 (accession [id number]), 2 (accession [id number]) views o n 2 (accession [id number]), 2 (accession [id number]), 1 (accession [id number]), 2 (accession [id number]) images Comparison: None RESULT: Cervical spine: Counting [...] Hallux valgus and digital contractures bi laterally. District Customs Director: [facility] Transcribe Date/Time: May 12 2021 1:57P Dictated [...] DATE OF EXAM: May 12 2021 12:30PM [facility] AWX 5245 - XR SI JTS 2V [...] 3V PA/LAT/OBL RT -- NOT APPLICABLE (accession [id number]), NOT APPLICABL E (accession [id number]), BILATERAL (accession [id number]), NOT APPLI CABLE (accession [id number]) with 2 (accession [id number]), 2 (accession [id number]), 1 (accession [id number]), 2 (accession [id number]) views o n 2 (accession [id number]), 2 (accession [id number]), 1 (accession [id number]), 2 (accession [id number]) images Comparison: None RESULT: Cervical spine: Counting [...] Hallux valgus and digital contractures bi laterally. District Customs Director: PSCB Transcribe Date/Time: May 12 2021 1:57P Dictated by : GLO PERES MD This examination was interpreted and the report review ed and electronically signed by: GLO PERES MD on May 12 2021 2:06PM EST [id number] [facility] CNPN Telephone (TRUEWS) [facility] VIVIANA Simpson ([id number]) 1955 [facility] Time Provider Department 05/05/21 Alexa BECERRA During your visit today, we recorded the following inf ormation about you: Tova Austin RN 05/05/2021 8:30 AM Signed Patient calls in to request an order for prednisone be sent to [facility] [place]. Patient reports that she is having i [...] 05/05/2021 9:10 AM Signed Should let her provisioning specialist know as they may wish to change [...] diagnosis) J84.9 ILD (interstitial lung dise ase) ([facility]) - COMPOUNDED PRESCRIPTION #1 Continuous Flow Stationary O2 Concentrator Sig: O2 2l/min liter flow Patient is to keep portablel concentrator as well J43. 2 Centrilobular emphysema ([facility]) J84.9 ILD (interstitial lung disease) ([facility]) J96.11 Chronic respiratory failure with hypoxia ([facility]) - leflunomide (ARAVA) 10 mg tablet Take [...] CNPN on 04-25-2021 CNPN Telephone (RHBATH) Normal [facility] VIVIANA Beverly ([id number]) 1955 F Medical Date Time Provider Department [...] to patient. Patient will obtain outside of [facility]. Will call office after completed to obtain results. Patient reminded she will need to bring a photo ID, all insurance cards and a list of medications and allergies. Next appt. 06/10/2021 9:00 AM MD EDDIE Carnes [facility] Sayda JimenezDESIKirk Jimenez, ROBERTA 05/07/2021 12:50 PM Signed Patient left asking for return call. Patient states she received her orders i n the mail and she doesn't understand it. 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 CNPN on 2021 MELISAN Telephone (NEO) [facility] VIVIANA SANTANA ([id number]) 1955 [facility] Time Provider Department 04/23/21 Alexa BECERRA [...] help. She does not see her new [employer] Advisor until 05-14-21. Was prescribed Prednisone in the past and thi s helped Last [employer] Insurance Advisor did not take her current insurance and [...] *2017 Rheumatoid arthritis involving multiple sites w*2017 halfway current use of immunosuppressive drug*2017 Paroxysmal atrial [...] Office Visit (MARY GRACE) [facility] VIVIANA SANTANA ([id number]) 1955 F [facility] Time Provider Department 04/01/21 3:00 PM YOVANI PIEDRA During your visit today, we recorded the following inf ormation about you: Pulse Blood pressure Weight Height 92/minute 128/76 86.9 kg 1.626 m Yovani Piedra DO 04/01/2021 3:37 PM Signed [facility] [place] [facility] [place] Department of Cardiovascula r Medicine [...] respiratory failure again. She did got to [facility] for pneumonia admit in January 2019: Preadmission evaluation: SOB and cough x 2 days. No fe kameron. had URI. Which facility: [facility] Dates of visit: !-02/02/19 Primary Diagnosis/es: MSSA, [...] majority of her time. She was admitted [facility] in April with sepsis and pneumonia [...] and bronchiectasis. ?She follows pulmonary at the [facility] now. ?There was a note that they [...] (HCC) - COPD (chronic obstructive pulmonary disease) ([facility]) Chronic bronchitis by history. - COVID-19 vaccine [...] Basophil, Absolute 0.10 10 3/mcL Normal 0.00-0.19 [facility] ([place]) Comment on above: Performed By: #### CMP, GFR #### [place] [address] #### ANEU, ADIFF, CBC #### [address] [address] Basophils/100 WBC (Bld) 0.7 % Normal 0.0-2.5 [facility] ([place]) Comment on above: Performed By: #### CMP, GFR #### [address] [address] #### ANEU, ADIFF, CBC #### [address] [address] Eosinophil, Absolute 0.30 10 3/mcL Normal 0.00-0.40 [facility] ([place]) Comment on above: Performed By: #### CMP, GFR #### [place] [address] #### ANEU, ADIFF, CBC #### [address] [address] Eosinophils/100 WBC (Bld) 1.9 % Normal 0.0-7.0 [facility] ([place]) Comment on above: Performed By: #### CMP, GFR #### [place] [address] #### ANEU, ADIFF, CBC #### [address] [address] Lymphocyte, Absolute 1.70 10 3/mcL Normal 0.77-3.85 [facility] ([place]) Comment on above: Performed By: #### CMP, GFR #### [place] [address] #### ANEU, ADIFF, CBC #### [address] [address] Lymphocytes/100 WBC (Bld) 10.8 % Normal 10.0-50.0 [facility] ([place]) Comment on above: Performed By: #### CMP, GFR #### [place] [address] #### ANEU, ADIFF, CBC #### [address] [address] Monocyte, Absolute 1.00 10 3/mcL Normal 0.15-1.00 [facility] ([place]) Comment on above: Performed By: #### CMP, GFR #### [place] [address] #### ANEU, ADIFF, CBC #### [address] [address] Monocytes/100 WBC (Bld) 6.2 % Normal 1.7-13.0 [facility] ([place]) Comment on above: Performed By: #### CMP, GFR #### [place] [address] #### ANEU, ADIFF, CBC #### [place] [address] [place], [place] [address] Neutrophils/100 WBC (Bld) 80.4 % High 37.0-80.0 [facility] ([place]) Comment on above: Performed By: #### CMP, GFR #### [place] [address] #### ANEU, ADIFF, CBC #### [place] [address] [place], [place] [address] .GFR on 11-27-2020 GFR 80 ml/min/1.73sqm Normal [facility] ([place]) Comment on above: Result Comment: GFR Population mean for Afri can Moroccan, Non- Americans Ages 20-29 = 116 mL/min/1.73 [...] meters Performed By: #### CMP, GFR #### [place] [address] #### ANEU, ADIFF, CBC #### [place] [address] [place], [place] [address] GFR Non- 66 ml/min/1.73sqm Normal [facility] ([place]) Comment on above: Result Comment: GFR Population mean for Afri can Moroccan, Non- Americans Ages 20-29 = 116 mL/min/1.73 [...] meters Performed By: #### CMP, GFR #### [place] [address] #### ANEU, ADIFF, CBC #### [address] [address] .NEUABS on 11-27-2020 Neutrophil, Absolute 12.60 10 3/mcL High 2.85-6.16 [facility] ([place]) Comment on above: Performed By: #### CMP, GFR #### [place] [address] #### ANEU, ADIFF, CBC #### [address] [address] CBC on 11-27-2020 Erythrocyte distribution width 17.0 % High 11.5-14.5 [facility] ([place]) (RBC) [Ratio] Comment on above: Performed By: #### CMP, GFR #### [place] [address] #### ANEU, ADIFF, CBC #### [address] [address] Hematocrit (Bld) [Volume 37.6 % Normal 37.0-47.0 [facility] ([place]) fraction] Comment on above: Performed By: #### CMP, GFR #### [place] [address] #### ANEU, ADIFF, CBC #### [address] [address] Hgb 12.1 G/dL Normal 12.0-16.0 [facility] ([place]) Comment on above: Performed By: #### CMP, GFR #### [place] [address] #### ANEU, ADIFF, CBC #### [address] [address] MCH (RBC) [Entitic mass] 30.8 pg Normal 27.0-31.2 [facility] ([place]) Comment on above: Performed By: #### CMP, GFR #### [address] [address] #### ANEU, ADIFF, CBC #### [address] [address] MCHC 32.1 G/dL Low 33.0-37.0 [facility] ([place]) Comment on above: Performed By: #### CMP, GFR #### [place] [address] #### ANEU, ADIFF, CBC #### [address] [address] MCV (RBC) [Entitic vol] 96.0 fL High 80.0-94.0 [facility] ([place]) Comment on above: Performed By: #### CMP, GFR #### [place] [address] #### ANEU, ADIFF, CBC #### [address] [address] Platelet 341 10 3/mcL Normal 130-400 [facility] ([place]) Comment on above: Performed By: #### CMP, GFR #### [place] [address] #### ANEU, ADIFF, CBC #### [address] [address] Platelet mean volume (Bld) 8.1 fL Normal 7.4-10.4 [facility] ([place]) [Entitic vol] Comment on above: Performed By: #### CMP, GFR #### [place] [address] #### ANEU, ADIFF, CBC #### [address] [address] RBC 3.92 10 6/mcL Low 4.20-5.40 [facility] ([place]) Comment on above: Performed By: #### CMP, GFR #### [place] [id number] #### ANEU, ADIFF, CBC #### [address] [address] WBC 15.70 10 3/mcL High 4.60-10.80 [facility] ([place]) Comment on above: Performed By: #### CMP, GFR #### [place] [address] #### ANEU, ADIFF, CBC #### [address] [address] CMP on 11-27-2020 Albumin Level 3.2 G/dL Low 3.4-4.8 [facility] ([place]) Comment on above: Performed By: #### CMP, GFR #### [place] [address] #### ANEU, ADIFF, CBC #### [address] [address] Albumin/Globulin [Mass ratio] 0.9 {ratio} Low 1.1-2.5 [facility] ([place]) Comment on above: Performed By: #### CMP, GFR #### [place] [address] #### ANEU, ADIFF, CBC #### [address] [address] ALP [Catalytic activity/Vol] 108 U/L Normal 40-135 [facility] ([place]) Comment on above: Performed By: #### CMP, GFR #### [place] [address] #### ANEU, ADIFF, CBC #### [address] [address] ALT [Catalytic activity/Vol] 21 U/L Normal 14-59 [facility] ([place]) Comment on above: Performed By: #### CMP, GFR #### [place] [address] #### ANEU, ADIFF, CBC #### [address] [address] AST [Catalytic activity/Vol] 15 U/L Normal 10-40 [facility] ([place]) Comment on above: Performed By: #### CMP, GFR #### [address] [address] #### ANEU, ADIFF, CBC #### [address] [address] Bili Total 0.3 mg/dL Normal 0.2-1.0 [facility] ([place]) Comment on above: Result Comment: Use of this assay is not recommended for patients undergoing treatment with eltrombopag d ue to the potential for falsely elevated results. Performed By: #### CMP, GFR #### [place] [address] #### ANEU, ADIFF, CBC #### [address] [address] BUN/Creatinine Ratio 16 ratio Normal 7-27 [facility] ([place]) Comment on above: Performed By: #### CMP, GFR #### [place] [address] #### ANEU, ADIFF, CBC #### [address] [address] Calcium [Mass/Vol] 8.8 mg/dL Normal 8.4-10.2 [facility] ([place]) Comment on above: Performed By: #### CMP, GFR #### [place] [address] #### ANEU, ADIFF, CBC #### [address] [address] Chloride [Moles/Vol] 102 mmol/L Normal 98-107 [facility] ([place]) Comment on above: Performed By: #### CMP, GFR #### [address] [address] #### ANEU, ADIFF, CBC #### [address] [address] CO2 [Moles/Vol] 32 mmol/L High 23-31 [facility] ([place]) Comment on above: Performed By: #### CMP, GFR #### [facility] [address] [place], [place] [address] #### ANEU, ADIFF, CBC #### [address] [address] Creatinine [Mass/Vol] 0.87 mg/dL Normal 0.55-1.02 [facility] ([place]) Comment on above: Performed By: #### CMP, GFR #### [place] [address] #### ANEU, ADIFF, CBC #### [address] [address] Electrolyte Balance 6.0 mEq/L Normal [facility] ([place]) Comment on above: Performed By: #### CMP, GFR #### [place] [address] #### ANEU, ADIFF, CBC #### [address] [address] Globulin 3.7 G/dL Normal [facility] ([place]) Comment on above: Performed By: #### CMP, GFR #### [place] [address] #### ANEU, ADIFF, CBC #### [address] [address] Glucose [Mass/Vol] 90 mg/dL Normal 80-115 [facility] ([place]) Comment on above: Performed By: #### CMP, GFR #### [place] [address] #### ANEU, ADIFF, CBC #### [address] [address] Potassium [Moles/Vol] 4.3 mmol/L Normal 3.5-5.1 [facility] ([place]) Comment on above: Performed By: #### CMP, GFR #### [address] [address] #### ANEU, ADIFF, CBC #### [address] [address] Sodium [Moles/Vol] 140 mmol/L Normal 136-145 [facility] ([place]) Comment on above: Performed By: #### CMP, GFR #### [place] [address] #### ANEU, ADIFF, CBC #### [address] [address] Total Protein 6.9 G/dL Normal 6.4-8.2 [facility] ([place]) Comment on above: Performed By: #### CMP, GFR #### [place] [address] #### ANEU, ADIFF, CBC #### [address] [address] Urea nitrogen [Mass/Vol] 14 mg/dL Normal 7-18 [facility] ([place]) Comment on above: Performed By: #### CMP, GFR #### [place] [address] #### ANEU, ADIFF, CBC #### [address] [address] .Auto Diff on 09-20-2020 Basophil, Absolute 0.10 10 3/mcL Normal 0.00-0.19 [facility] ([place]) Comment on above: Performed By: #### CBC, ADIF F, ANEU #### [place] [id number] #### CMP, GFR #### [place] [id number] Basophils/100 WBC (Bld) 0.8 % Normal 0.0-2.5 [facility] ([place]) Comment on above: Performed By: #### CBC, ADIF F, ANEU #### [place] [address] #### CMP, GFR #### [place] [address] Eosinophil, Absolute 0.20 10 3/mcL Normal 0.00-0.40 [facility] ([place]) Comment on above: Performed By: #### CBC, ADIF F, ANEU #### [address] [address] #### CMP, GFR #### [address] [address] Eosinophils/100 WBC (Bld) 1.8 % Normal 0.0-7.0 [facility] ([place]) Comment on above: Performed By: #### CBC, ADIF F, ANEU #### [place] [address] #### CMP, GFR #### [address] [address] Lymphocyte, Absolute 2.40 10 3/mcL Normal 0.77-3.85 [facility] ([place]) Comment on above: Performed By: #### CBC, ADIF F, ANEU #### [place] [address] #### CMP, GFR #### [address] [address] Lymphocytes/100 WBC (Bld) 20.2 % Normal 10.0-50.0 [facility] ([place]) Comment on above: Performed By: #### CBC, ADIF F, ANEU #### [place] [address] #### CMP, GFR #### [address] [address] Monocyte, Absolute 1.10 10 3/mcL High 0.15-1.00 [facility] ([place]) Comment on above: Performed By: #### CBC, ADIF F, ANEU #### [place] [address] #### CMP, GFR #### [address] [address] Monocytes/100 WBC (Bld) 9.5 % Normal 1.7-13.0 [facility] ([place]) Comment on above: Performed By: #### CBC, ADIF F, ANEU #### [place] [address] #### CMP, GFR #### [address] [address] Neutrophils/100 WBC (Bld) 67.7 % Normal 37.0-80.0 [facility] ([place]) Comment on above: Performed By: #### CBC, ADIF F, ANEU #### [place] [address] [place], [place] [address] #### CMP, GFR #### [facility] [address] [place] [address] .GFR on 09-20-2020 GFR 71 ml/min/1.73sqm Normal [facility] ([place]) Comment on above: Result Comment: GFR Population mean for Afri can Moroccan, Non- Americans Ages 20-29 = 116 mL/min/1.73 [...] #### CBC, ADIF F, ANEU #### [place] [address] [place], [place] [address] #### CMP, GFR #### [place] [id number] [place] [address] GFR Non- 59 ml/min/1.73sqm Normal [facility] ([place]) Comment on above: Result Comment: GFR Population mean for Afri can Moroccan, Non- Americans Ages 20-29 = 116 mL/min/1.73 [...] By: #### CBC, ADIF F, ANEU #### [place] [address] #### CMP, GFR #### [address] [address] .NEUABS on 09-20-2020 Neutrophil, Absolute 7.90 10 3/mcL High 2.85-6.16 [facility] ([place]) Comment on above: Performed By: #### CBC, ADIF F, ANEU #### [place] [address] #### CMP, GFR #### [place] [address] CBC on 09-20-2020 Erythrocyte distribution width 17.5 % High 11.5-14.5 [facility] ([place]) (RBC) [Ratio] Comment on above: Performed By: #### CBC, ADIF F, ANEU #### [place] [address] #### CMP, GFR #### [place] [address] Hematocrit (Bld) [Volume 40.1 % Normal 37.0-47.0 [facility] ([place]) fraction] Comment on above: Performed By: #### CBC, ADIF F, ANEU #### [place] [address] #### CMP, GFR #### [place] [address] Hgb 12.7 G/dL Normal 12.0-16.0 [facility] ([place]) Comment on above: Performed By: #### CBC, ADIF F, ANEU #### [place] [address] #### CMP, GFR #### [place] [address] MCH (RBC) [Entitic mass] 29.4 pg Normal 27.0-31.2 [facility] ([place]) Comment on above: Performed By: #### CBC, ADIF F, ANEU #### [place] [address] #### CMP, GFR #### [place] [address] MCHC 31.7 G/dL Low 33.0-37.0 [facility] ([place]) Comment on above: Performed By: #### CBC, ADIF F, ANEU #### [place] [address] #### CMP, GFR #### [place] [address] MCV (RBC) [Entitic vol] 92.7 fL Normal 80.0-94.0 [facility] ([place]) Comment on above: Performed By: #### CBC, ADIF F, ANEU #### [place] [address] #### CMP, GFR #### [place] [address] Platelet 335 10 3/mcL Normal 130-400 [facility] ([place]) Comment on above: Performed By: #### CBC, ADIF F, ANEU #### [place] [address] #### CMP, GFR #### [place] [address] Platelet mean volume (Bld) 9.6 fL Normal 7.4-10.4 [facility] ([place]) [Entitic vol] Comment on above: Performed By: #### CBC, ADIF F, ANEU #### [place] [address] #### CMP, GFR #### [place] [address] RBC 4.33 10 6/mcL Normal 4.20-5.40 [facility] ([place]) Comment on above: Performed By: #### CBC, ADIF F, ANEU #### [place] [address] #### CMP, GFR #### [place] [address] WBC 11.60 10 3/mcL High 4.60-10.80 [facility] ([place]) Comment on above: Performed By: #### CBC, ADIF F, ANEU #### [address] [address] #### CMP, GFR #### [address] [address] CMP on 09-20-2020 Albumin Level 2.9 G/dL Low 3.4-4.8 [facility] ([place]) Comment on above: Performed By: #### CBC, ADIF F, ANEU #### [place] [address] #### CMP, GFR #### [place] [address] Albumin/Globulin [Mass ratio] 0.8 {ratio} Low 1.1-2.5 [facility] ([place]) Comment on above: Performed By: #### CBC, ADIF F, ANEU #### [address] [address] #### CMP, GFR #### [place] [id number] ALP [Catalytic activity/Vol] 103 U/L Normal 40-135 [facility] ([place]) Comment on above: Performed By: #### CBC, ADIF F, ANEU #### [place] [address] #### CMP, GFR #### [address] [address] ALT [Catalytic activity/Vol] 32 U/L Normal 14-59 [facility] ([place]) Comment on above: Performed By: #### CBC, ADIF F, ANEU #### [place] [address] #### CMP, GFR #### [address] [address] AST [Catalytic activity/Vol] 18 U/L Normal 10-40 [facility] ([place]) Comment on above: Performed By: #### CBC, ADIF F, ANEU #### [address] [address] #### CMP, GFR #### [address] [address] Bili Total 0.3 mg/dL Normal 0.2-1.0 [facility] ([place]) Comment on above: Result Comment: Use of this assay is not recommended for patients undergoing treatment with eltrombopag d ue to the potential for falsely elevated results. Performed By: #### CBC, ADIF F, ANEU #### [address] [address] #### CMP, GFR #### [address] [address] BUN/Creatinine Ratio 21 ratio Normal 7-27 [facility] ([place]) Comment on above: Performed By: #### CBC, ADIF F, ANEU #### [place] [address] #### CMP, GFR #### [address] [address] Calcium [Mass/Vol] 8.9 mg/dL Normal 8.4-10.2 [facility] ([place]) Comment on above: Performed By: #### CBC, ADIF F, ANEU #### [address] [address] #### CMP, GFR #### [address] [address] Chloride [Moles/Vol] 105 mmol/L Normal 98-107 [facility] ([place]) Comment on above: Performed By: #### CBC, ADIF F, ANEU #### [place] [address] #### CMP, GFR #### [address] [address] CO2 [Moles/Vol] 29 mmol/L Normal 23-31 [facility] ([place]) Comment on above: Performed By: #### CBC, ADIF F, ANEU #### [address] [address] #### CMP, GFR #### [address] [address] Creatinine [Mass/Vol] 0.96 mg/dL Normal 0.55-1.02 [facility] ([place]) Comment on above: Performed By: #### CBC, ADIF F, ANEU #### [address] [address] #### CMP, GFR #### [address] [address] Electrolyte Balance 8.0 mEq/L Normal [facility] ([place]) Comment on above: Performed By: #### CBC, ADIF F, ANEU #### [address] [address] #### CMP, GFR #### [address] [address] Globulin 3.5 G/dL Normal [facility] ([place]) Comment on above: Performed By: #### CBC, ADIF F, ANEU #### [address] [address] #### CMP, GFR #### [address] [address] Glucose [Mass/Vol] 82 mg/dL Normal 80-115 [facility] ([place]) Comment on above: Performed By: #### CBC, ADIF F, ANEU #### [place] [address] #### CMP, GFR #### [address] [address] Potassium [Moles/Vol] 4.5 mmol/L Normal 3.5-5.1 [facility] ([place]) Comment on above: Performed By: #### CBC, ADIF F, ANEU #### [address] [address] #### CMP, GFR #### [address] [address] Sodium [Moles/Vol] 142 mmol/L Normal 136-145 [facility] ([place]) Comment on above: Performed By: #### CBC, ADIF F, ANEU #### [address] [address] #### CMP, GFR #### [address] [address] Total Protein 6.4 G/dL Normal 6.4-8.2 [facility] ([place]) Comment on above: Performed By: #### CBC, ADIF F, ANEU #### [place] [address] #### CMP, GFR #### [place] [address] Urea nitrogen [Mass/Vol] 20 mg/dL High 7-18 [facility] ([place]) Comment on above: Performed By: #### CBC, ADIF F, ANEU #### [place] [address] #### CMP, GFR #### [address] [address] .Auto Diff on 05-14-2020 Basophil, Absolute 0.10 10 3/mcL Normal 0.00-0.19 [facility] ([place]) Comment on above: Performed By: #### CBC, ADIF F, ANEU #### [place] [id number] #### CMP, GFR #### [address] [address] Basophils/100 WBC (Bld) 0.9 % Normal 0.0-2.5 [facility] ([place]) Comment on above: Performed By: #### CBC, ADIF F, ANEU #### [place] [address] #### CMP, GFR #### [address] [address] Eosinophil, Absolute 0.30 10 3/mcL Normal 0.00-0.40 [facility] ([place]) Comment on above: Performed By: #### CBC, ADIF F, ANEU #### [address] [address] #### CMP, GFR #### [address] [address] Eosinophils/100 WBC (Bld) 2.5 % Normal 0.0-7.0 [facility] ([place]) Comment on above: Performed By: #### CBC, ADIF F, ANEU #### [address] [address] #### CMP, GFR #### [address] [address] Lymphocyte, Absolute 2.20 10 3/mcL Normal 0.77-3.85 [facility] ([place]) Comment on above: Performed By: #### CBC, ADIF F, ANEU #### [place] [address] #### CMP, GFR #### [address] [address] Lymphocytes/100 WBC (Bld) 16.1 % Normal 10.0-50.0 [facility] ([place]) Comment on above: Performed By: #### CBC, ADIF F, ANEU #### [place] [address] #### CMP, GFR #### [address] [address] Monocyte, Absolute 1.00 10 3/mcL Normal 0.15-1.00 [facility] ([place]) Comment on above: Performed By: #### CBC, ADIF F, ANEU #### [place] [id number] #### CMP, GFR #### [address] [address] Monocytes/100 WBC (Bld) 7.1 % Normal 1.7-13.0 [facility] ([place]) Comment on above: Performed By: #### CBC, ADIF F, ANEU #### [place] [id number] #### CMP, GFR #### [address] [address] Neutrophils/100 WBC (Bld) 73.4 % Normal 37.0-80.0 [facility] ([place]) Comment on above: Performed By: #### CBC, ADIF F, ANEU #### [place] [address] [place], [place] [address] #### CMP, GFR #### [address] [address] .GFR on 05-14-2020 GFR Non- 63 ml/min/1.73sqm Normal [facility] ([place]) Comment on above: Result Comment: GFR Population mean for Afri can Moroccan, Non- Americans Ages 20-29 = 116 mL/min/1.73 [...] #### CBC, ADIF F, ANEU #### [place] [address] [address] #### CMP, GFR #### [address] [address] GFR 77 ml/min/1.73sqm Normal [facility] ([place]) Comment on above: Result Comment: GFR Population mean for Afri can Moroccan, Non- Americans Ages 20-29 = 116 mL/min/1.73 [...] By: #### CBC, ADIF F, ANEU #### [place] [address] #### CMP, GFR #### [address] [address] .NEUABS on 05-14-2020 Neutrophil, Absolute 9.90 10 3/mcL High 2.85-6.16 [facility] ([place]) Comment on above: Performed By: #### CBC, ADIF F, ANEU #### [place] [address] #### CMP, GFR #### [place] [address] CBC on 05-14-2020 Erythrocyte distribution width 13.9 % Normal 11.5-14.5 [facility] (RBC) [Ratio] ([place]) Comment on above: Performed By: #### CBC, ADIF F, ANEU #### [place] [address] #### CMP, GFR #### [place] [address] Hematocrit (Bld) [Volume 34.5 % Low 37.0-47.0 [facility] ([place]) fraction] Comment on above: Performed By: #### CBC, ADIF F, ANEU #### [place] [address] #### CMP, GFR #### [place] [address] Hgb 11.1 G/dL Low 12.0-16.0 [facility] ([place]) Comment on above: Performed By: #### CBC, ADIF F, ANEU #### [place] [address] #### CMP, GFR #### [place] [address] MCH (RBC) [Entitic mass] 30.9 pg Normal 27.0-31.2 [facility] ([place]) Comment on above: Performed By: #### CBC, ADIF F, ANEU #### [place] [address] #### CMP, GFR #### [place] [address] MCHC 32.1 G/dL Low 33.0-37.0 [facility] ([place]) Comment on above: Performed By: #### CBC, ADIF F, ANEU #### [place] [address] #### CMP, GFR #### [place] [address] MCV (RBC) [Entitic vol] 96.3 fL High 80.0-94.0 [facility] ([place]) Comment on above: Performed By: #### CBC, ADIF F, ANEU #### [place] [address] #### CMP, GFR #### [place] [address] Platelet 401 10 3/mcL High 130-400 [facility] ([place]) Comment on above: Performed By: #### CBC, ADIF F, ANEU #### [place] [address] #### CMP, GFR #### [place] [address] Platelet mean volume (Bld) 8.4 fL Normal 7.4-10.4 [facility] ([place]) [Entitic vol] Comment on above: Performed By: #### CBC, ADIF F, ANEU #### [place] [address] #### CMP, GFR #### [place] [address] RBC 3.58 10 6/mcL Low 4.20-5.40 [facility] ([place]) Comment on above: Performed By: #### CBC, ADIF F, ANEU #### [place] [address] #### CMP, GFR #### [place] [address] WBC 13.50 10 3/mcL High 4.60-10.80 [facility] ([place]) Comment on above: Performed By: #### CBC, ADIF F, ANEU #### [address] [address] #### CMP, GFR #### [place] [address] CMP on 05-14-2020 Albumin Level 3.0 G/dL Low 3.4-4.8 [facility] ([place]) Comment on above: Performed By: #### CBC, ADIF F, ANEU #### [place] [address] #### CMP, GFR #### [place] [address] Albumin/Globulin [Mass ratio] 0.8 {ratio} Low 1.1-2.5 [facility] ([place]) Comment on above: Performed By: #### CBC, ADIF F, ANEU #### [place] [address] #### CMP, GFR #### [place] [address] ALP [Catalytic activity/Vol] 104 U/L Normal 40-135 [facility] ([place]) Comment on above: Performed By: #### CBC, ADIF F, ANEU #### [place] [address] #### CMP, GFR #### [place] [address] ALT [Catalytic activity/Vol] 13 U/L Low 14-59 [facility] ([place]) Comment on above: Performed By: #### CBC, ADIF F, ANEU #### [place] [address] #### CMP, GFR #### [place] [id number] AST [Catalytic activity/Vol] 12 U/L Normal 10-40 [facility] ([place]) Comment on above: Performed By: #### CBC, ADIF F, ANEU #### [address] [address] #### CMP, GFR #### [address] [address] Bili Total 0.3 mg/dL Normal 0.2-1.0 [facility] ([place]) Comment on above: Result Comment: Use of this assay is not recommended for patients undergoing treatment with eltrombopag d ue to the potential for falsely elevated results. Performed By: #### CBC, ADIF F, ANEU #### [address] [address] #### CMP, GFR #### [address] [address] BUN/Creatinine Ratio 14 ratio Normal 7-27 [facility] ([place]) Comment on above: Performed By: #### CBC, ADIF F, ANEU #### [place] [address] #### CMP, GFR #### [address] [address] Calcium [Mass/Vol] 9.2 mg/dL Normal 8.4-10.2 [facility] ([place]) Comment on above: Performed By: #### CBC, ADIF F, ANEU #### [address] [address] #### CMP, GFR #### [address] [address] Chloride [Moles/Vol] 101 mmol/L Normal 98-107 [facility] ([place]) Comment on above: Performed By: #### CBC, ADIF F, ANEU #### [place] [address] #### CMP, GFR #### [address] [address] CO2 [Moles/Vol] 29 mmol/L Normal 23-31 [facility] ([place]) Comment on above: Performed By: #### CBC, ADIF F, ANEU #### [address] [address] #### CMP, GFR #### [address] [address] Creatinine [Mass/Vol] 0.90 mg/dL Normal 0.55-1.02 [facility] ([place]) Comment on above: Performed By: #### CBC, ADIF F, ANEU #### [address] [address] #### CMP, GFR #### [address] [address] Electrolyte Balance 10.0 mEq/L Normal [facility] ([place]) Comment on above: Performed By: #### CBC, ADIF F, ANEU #### [place] [address] #### CMP, GFR #### [place] [id number] Globulin 3.8 G/dL Normal [facility] ([place]) Comment on above: Performed By: #### CBC, ADIF F, ANEU #### [place] [address] #### CMP, GFR #### [address] [address] Glucose [Mass/Vol] 106 mg/dL Normal 80-115 [facility] ([place]) Comment on above: Performed By: #### CBC, ADIF F, ANEU #### [place] [address] #### CMP, GFR #### [address] [address] Potassium [Moles/Vol] 4.5 mmol/L Normal 3.5-5.1 [facility] ([place]) Comment on above: Performed By: #### CBC, ADIF F, ANEU #### [address] [address] #### CMP, GFR #### [place] [id number] Sodium [Moles/Vol] 140 mmol/L Normal 136-145 [facility] ([place]) Comment on above: Performed By: #### CBC, ADIF F, ANEU #### [place] [address] #### CMP, GFR #### [address] [address] Total Protein 6.8 G/dL Normal 6.4-8.2 [facility] ([place]) Comment on above: Performed By: #### CBC, ADIF F, ANEU #### [place] [address] #### CMP, GFR #### [place] [address] Urea nitrogen [Mass/Vol] 13 mg/dL Normal 7-18 [facility] ([place]) Comment on above: Performed By: #### CBC, ADIF F, ANEU #### [place] [address] #### CMP, GFR #### [address] [address] .Auto Diff on 02-27-2020 Basophil, Absolute 0.10 10 3/mcL Normal 0.00-0.19 [facility] ([place]) Comment on above: Performed By: #### CBC, ADIF F, ANEU #### [place] [id number] #### CMP, GFR #### [address] [address] Basophils/100 WBC (Bld) 0.9 % Normal 0.0-2.5 [facility] ([place]) Comment on above: Performed By: #### CBC, ADIF F, ANEU #### [place] [address] #### CMP, GFR #### [address] [address] Eosinophil, Absolute 0.20 10 3/mcL Normal 0.00-0.40 [facility] ([place]) Comment on above: Performed By: #### CBC, ADIF F, ANEU #### [address] [address] #### CMP, GFR #### [address] [address] Eosinophils/100 WBC (Bld) 2.4 % Normal 0.0-7.0 [facility] ([place]) Comment on above: Performed By: #### CBC, ADIF F, ANEU #### [address] [address] #### CMP, GFR #### [address] [address] Lymphocyte, Absolute 1.90 10 3/mcL Normal 0.77-3.85 [facility] ([place]) Comment on above: Performed By: #### CBC, ADIF F, ANEU #### [place] [address] #### CMP, GFR #### [address] [address] Lymphocytes/100 WBC (Bld) 18.7 % Normal 10.0-50.0 [facility] ([place]) Comment on above: Performed By: #### CBC, ADIF F, ANEU #### [place] [address] #### CMP, GFR #### [address] [address] Monocyte, Absolute 0.70 10 3/mcL Normal 0.15-1.00 [facility] ([place]) Comment on above: Performed By: #### CBC, ADIF F, ANEU #### [place] [id number] #### CMP, GFR #### [address] [address] Monocytes/100 WBC (Bld) 7.2 % Normal 1.7-13.0 [facility] ([place]) Comment on above: Performed By: #### CBC, ADIF F, ANEU #### [place] [id number] #### CMP, GFR #### [address] [address] Neutrophils/100 WBC (Bld) 70.8 % Normal 37.0-80.0 [facility] ([place]) Comment on above: Performed By: #### CBC, ADIF F, ANEU #### [place] [address] [place], [place] [address] #### CMP, GFR #### [address] [address] .GFR on 02-27-2020 GFR Non- 63 ml/min/1.73sqm Normal [facility] ([place]) Comment on above: Result Comment: GFR Population mean for Afri can Moroccan, Non- Americans Ages 20-29 = 116 mL/min/1.73 [...] #### CBC, ADIF F, ANEU #### [place] [address] [place], [place] [address] #### CMP, GFR #### [address] [address] GFR 77 ml/min/1.73sqm Normal [facility] ([place]) Comment on above: Result Comment: GFR Population mean for Afri can Moroccan, Non- Americans Ages 20-29 = 116 mL/min/1.73 [...] By: #### CBC, ADIF F, ANEU #### [place] [address] #### CMP, GFR #### [place] [address] .NEUABS on 02-27-2020 Neutrophil, Absolute 7.30 10 3/mcL High 2.85-6.16 [facility] ([place]) Comment on above: Performed By: #### CBC, ADIF F, ANEU #### [place] [address] #### CMP, GFR #### [place] [address] CBC on 02-27-2020 Erythrocyte distribution width 16.1 % High 11.5-14.5 [facility] ([place]) (RBC) [Ratio] Comment on above: Performed By: #### CBC, ADIF F, ANEU #### [place] [address] #### CMP, GFR #### [place] [address] Hematocrit (Bld) [Volume 32.7 % Low 37.0-47.0 [facility] ([place]) fraction] Comment on above: Performed By: #### CBC, ADIF F, ANEU #### [place] [address] #### CMP, GFR #### [place] [address] Hgb 10.4 G/dL Low 12.0-16.0 [facility] ([place]) Comment on above: Performed By: #### CBC, ADIF F, ANEU #### [place] [address] #### CMP, GFR #### [place] [address] MCH (RBC) [Entitic mass] 30.7 pg Normal 27.0-31.2 [facility] ([place]) Comment on above: Performed By: #### CBC, ADIF F, ANEU #### [place] [address] #### CMP, GFR #### [place] [address] MCHC 31.9 G/dL Low 33.0-37.0 [facility] ([place]) Comment on above: Performed By: #### CBC, ADIF F, ANEU #### [place] [address] #### CMP, GFR #### [place] [address] MCV (RBC) [Entitic vol] 96.2 fL High 80.0-94.0 [facility] ([place]) Comment on above: Performed By: #### CBC, ADIF F, ANEU #### [place] [address] #### CMP, GFR #### [place] [address] Platelet 402 10 3/mcL High 130-400 [facility] ([place]) Comment on above: Performed By: #### CBC, ADIF F, ANEU #### [place] [address] #### CMP, GFR #### [place] [address] Platelet mean volume (Bld) 8.1 fL Normal 7.4-10.4 [facility] ([place]) [Entitic vol] Comment on above: Performed By: #### CBC, ADIF F, ANEU #### [place] [address] #### CMP, GFR #### [place] [address] RBC 3.40 10 6/mcL Low 4.20-5.40 [facility] ([place]) Comment on above: Performed By: #### CBC, ADIF F, ANEU #### [place] [address] #### CMP, GFR #### [place] [address] WBC 10.30 10 3/mcL Normal 4.60-10.80 [facility] ([place]) Comment on above: Performed By: #### CBC, ADIF F, ANEU #### [address] [address] #### CMP, GFR #### [address] [address] CMP on 02-27-2020 Albumin Level 3.0 G/dL Low 3.4-4.8 [facility] ([place]) Comment on above: Performed By: #### CBC, ADIF F, ANEU #### [place] [address] #### CMP, GFR #### [place] [address] Albumin/Globulin [Mass ratio] 0.9 {ratio} Low 1.1-2.5 [facility] ([place]) Comment on above: Performed By: #### CBC, ADIF F, ANEU #### [address] [address] #### CMP, GFR #### [address] [address] ALP [Catalytic activity/Vol] 92 U/L Normal 40-135 [facility] ([place]) Comment on above: Performed By: #### CBC, ADIF F, ANEU #### [place] [address] #### CMP, GFR #### [address] [address] ALT [Catalytic activity/Vol] 19 U/L Normal 14-59 [facility] ([place]) Comment on above: Performed By: #### CBC, ADIF F, ANEU #### [place] [address] #### CMP, GFR #### [address] [address] AST [Catalytic activity/Vol] 15 U/L Normal 10-40 [facility] ([place]) Comment on above: Performed By: #### CBC, ADIF F, ANEU #### [address] [address] #### CMP, GFR #### [address] [address] Bili Total 0.6 mg/dL Normal 0.2-1.0 [facility] ([place]) Comment on above: Result Comment: Use of this assay is not recommended for patients undergoing treatment with eltrombopag d ue to the potential for falsely elevated results. Performed By: #### CBC, ADIF F, ANEU #### [address] [address] #### CMP, GFR #### [address] [address] BUN/Creatinine Ratio 17 ratio Normal 7-27 [facility] ([place]) Comment on above: Performed By: #### CBC, ADIF F, ANEU #### [place] [address] #### CMP, GFR #### [address] [address] Calcium [Mass/Vol] 9.0 mg/dL Normal 8.4-10.2 [facility] ([place]) Comment on above: Performed By: #### CBC, ADIF F, ANEU #### [address] [address] #### CMP, GFR #### [address] [address] Chloride [Moles/Vol] 101 mmol/L Normal 98-107 [facility] ([place]) Comment on above: Performed By: #### CBC, ADIF F, ANEU #### [address] [address] #### CMP, GFR #### [address] [address] CO2 [Moles/Vol] 30 mmol/L Normal 23-31 [facility] ([place]) Comment on above: Performed By: #### CBC, ADIF F, ANEU #### [address] [address] #### CMP, GFR #### [address] [address] Creatinine [Mass/Vol] 0.90 mg/dL Normal 0.55-1.02 [facility] ([place]) Comment on above: Performed By: #### CBC, ADIF F, ANEU #### [address] [address] #### CMP, GFR #### [address] [address] Electrolyte Balance 8.0 mEq/L Normal [facility] ([place]) Comment on above: Performed By: #### CBC, ADIF F, ANEU #### [address] [address] #### CMP, GFR #### [address] [address] Globulin 3.5 G/dL Normal [facility] ([place]) Comment on above: Performed By: #### CBC, ADIF F, ANEU #### [address] [address] #### CMP, GFR #### [address] [address] Glucose [Mass/Vol] 111 mg/dL Normal 80-115 [facility] ([place]) Comment on above: Performed By: #### CBC, ADIF F, ANEU #### [place] [address] #### CMP, GFR #### [address] [address] Potassium [Moles/Vol] 4.6 mmol/L Normal 3.5-5.1 [facility] ([place]) Comment on above: Performed By: #### CBC, ADIF F, ANEU #### [address] [address] #### CMP, GFR #### [address] [address] Sodium [Moles/Vol] 139 mmol/L Normal 136-145 [facility] ([place]) Comment on above: Performed By: #### CBC, ADIF F, ANEU #### [address] [address] #### CMP, GFR #### [address] [address] Total Protein 6.5 G/dL Normal 6.4-8.2 [facility] ([place]) Comment on above: Performed By: #### CBC, ADIF F, ANEU #### [address] [address] #### CMP, GFR #### [address] [address] Urea nitrogen [Mass/Vol] 15 mg/dL Normal 7-18 [facility] ([place]) Comment on above: Performed By: #### CBC, ADIF F, ANEU #### [address] [address] #### CMP, GFR #### [address] [address] ANES POST on 10-09-2019 ANES POST HNO ID: [id number] [facility] [place] [facility] Author: Luis Antonio [...] PREOP on 10-09-2019 ANES PREOP HNO ID: [id number] Normal [place] gonz[facility] Author: Luis Antonio Gamble [...] Sites With Pos itive Rheumatoid Factor (Hcc) Mcc Current Use of Immunosuppressive Drug Paroxysmal Atrial [...] 04/26/2017 - COPD (chronic obstructive pulmonary disease) ([facility]) Chronic bronchitis by history. - Hyperglycemia 12/25/2016 [...] mg tablet Take 10 mg by mo [facility] once daily as needed. - rivaroxaban [...] 10 mg tablet Take 1 tablet by [facility] once daily. - acetaminophen (TYLENOL EXTRA [...] (XYLOCAINE ) 0.1-0.2 mL INTRADERMAL PRN Indira (Back Up Scan Coordinator) Matthias - lactated ringers infusion 50 mL/hr INTRAVENOUS CYNDY TIRSO Jacobson (Back Up Scan Coordinator) Matthias 50 mL/hr at 10/09/19 0742 50 [...] October 09, 2019 TIME: 8:17 AM CSN: [id number] HISTORY PHYSICAL on 10-09-2019 HISTORY PHYSICAL HNO ID: [id number] [facility] Author: Jourdan Ruiz Service: General Surgery [...] Lymph 1.00 - 4.00 k/uL 1.74 1.11 Traill% % 4.0 3.2 Abs Traill <0.87 k/uL 0.57 0.44 Eosin% % 1.1 [...] and lower endo scopy with [facility] in [place] in July 2019, but this was postponed due to go vernment mandate because of COVID-19. Patient is now rescheduled to hav e procedures with Dr. Ruiz in [place] on 10/09/2019. ? The patient denies any [...] mg tablet Take 10 mg by mo [facility] once daily as needed. - rivaroxaban [...] di agnosis) J84.9 ILD (interstitial lung disease) ([facility]) - COMPOUNDED PRESCRIPTION #1 Continuous Flow Stationar y O2 Concentrator Sig: O2 2l/min liter flow Patient is to keep portablel concentrator as well J43.2 Centrilobular emphysema (HCC) J84.9 ILD (interstitial lung disease) ([facility]) J96.11 Chronic respiratory failure with hypoxia ([facility]) - fluticasone (FLONASE) 50 mcg/actuation nasal spray U se 2 Sprays in each nostril once daily. Rinse mouth after use. - COMPOUNDED PRESCRIPTION Based on 6 minute walk in Ap 2018, patient requires 2 L continuous supplemental oxygen. DME: [facility] are. - leflunomide (ARAVA) 10 mg tablet Take 1 tablet by mo [facility] once daily. - COMPOUNDED PRESCRIPTION Face [...] patient was offered a surgery/procedure at a [facility] facility. The provider and patient [...] NURSING PROG on 10-09-2019 NURSING HNO ID: [id number] [place] [facility] Author: Sanjuanita (Rn) SHALOM [...] by: Sanjuanita Wallis RN NURSING HNO ID: [id number] [facility] Author: Sanjuanita GatesRn) SHALOM [facility] Service: [...] ED on 10-09-2019 PT ED HNO ID: [id number] [facility] Author: Sanjuanita GatesRn) SHALOM aWllis Service: Nursing Author Type: Registered Nurse Type: [...] By: Sanjuanita Wallis RN In Departme nt: [facility] ENDOSCOPY PT ED HNO ID: [id number] [facility] Author: Sanjuanita GatesRn) SHALOM Wallis Service: [...] By: Sanjuanita Wallis RN In Departme nt: [facility] ENDOSCOPY SURGICAL PATHOLOGY on 10-09-2019 SURGICAL Specimen originated from [facility] Normal [place] PATHOLOGY Specimen #: [id number] Hospit al Submitting Physician: Jourdan Ruiz M.D. [...] two casset zulay. Gross examination performed at [facility], [address] [place] [address] TV 10/09/2019 6:09:01 PM Date of Report: 10/11/2019 Date of Procedure: 10/09/2019 Date of Receipt: 10/09/2019 Submitted by: Jourdan Ruiz M.D. Location: [place] Diagnostic interpretation performed at [facility], [address] [place] [address]. [place] Number: [id number] HISTORY PHYSICAL on 10-06-2019 HISTORY PHYSICAL HNO ID: [id number] [facility] Author: Iqra (Melisa) Lana Service: ? [...] recommendation will be communicated back to the [facility] physician by way of shared medical record or letter. 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 Copd (Chronic Obstructive Pulmonary Disease) (Hcc) Ild (Interstitial Lung Disease) (Hcc) Lung Nodule, Multiple Iatrogenic Adrenal Insufficiency (Hcc) Chronic Respiratory Failure With Hypoxia (Hcc) Rheumatoid Arthritis Involving Multiple Sites With Pos itive Rheumatoid Factor (Hcc) Mcc Current Use of Immunosuppressive Drug Paroxysmal Atrial [...] di agnosis) J84.9 ILD (interstitial lung disease) ([facility]) Taking COMPOUNDED PRESCRIPTION #1 Continuous Flow Stationary O2 Concentrator Sig: O2 2l/min liter flow Patient is to keep portablel concentrator as well J43.2 Centrilobular emphysema (HCC) J84.9 ILD (interstitial lung disease) (HCC) J96.11 Chronic respiratory failure with hypoxia ([facility]) Taking fluticasone (FLONASE) 50 mcg/actuation nasal spray [...] fevers. Neuro: No history of TIA's, stroke, ELECTRICAL ESTIMATOR tumor, impaire d sensorium, hemiplegia, paraplegia or [...] No history of HTN, HLD, angina, CHF, VT, cardiac surgery or stent. D enies rest pain, gangrene or revascularization/amputation for PVD. No h istory of palpitations, syncope, DVT, PE or murmur. 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 : Denies, No LMP recorded. Patient is postmen opausal. Endocrine: (+) DMT2- last Hgba1c 06/2019 5.7%. Does not check blood glucose. On PO agent. No hx of thyroid disorder. Uses steroids prn for RA. Hematology: (+) Immunosuppresed with trackwalker use of steroids-as needed. Has been using [...] check bl ood glucose. 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 Author Type: Registered Nurse Type: Nursing Progress Note Filed: 10/06/2019 7:28 AM Note Text: Pacc Apt 10/06/19 at 3pm. Chart not reviewed per Pacc Raj catalan. See Epic for HANDP, testing, and results. Covid 10/07/2019. Meri Anglin RN Pacc HOSP on 08-22-2019 HOSP Patient:Viviana Santana [facility] MRN: Height:5' 4 (1.626 m) Weight:173 lb [...] rhinitis [J31.0] COPD (chronic obstructive pulmonary disease) ([facility]) [J4 4.9] ILD (interstitial lung disease) ([facility]) [J84.9] Lung nodule, multiple [R91.8] Iatrogenic adrenal insufficiency ([facility]) [E27.49] Chronic respiratory failure with hypoxia ([facility]) [J96.11 ] Rheumatoid arthritis involving multiple sites wi th positive rheumatoid factor (HCC) [M05.79] halfway current use of immunosuppressive drug [Z79.8 99] [...] the following b asenames: K,HCT Progress Notes ([facility]): Shayna Perez RN 09/18/2019 12:53 PM [...] Lymph 1.00 - 4.00 k/uL 1.74 1.11 Traill% % 4.0 3.2 Abs Traill <0.87 k/uL 0.57 0.44 Eosin% % 1.1 [...] upper and lower endoscopy with MAC in [place] in July 2019, but this was postponed due to governmen t mandate because of COVID-19. Patient is now rescheduled to have procedure s with Dr. Ruiz in [place] on 10/09/2019. The patient denies any significant [...] di agnosis) J84.9 ILD (interstitial lung disease) ([facility]) - COMPOUNDED PRESCRIPTION #1 Continuous Flow Stationar y O2 Concentrator Sig: O2 2l/min liter flow Patient is to keep portablel concentrator as well J43.2 Centrilobular emphysema ([facility]) J84.9 ILD (interstitial lung disease) ([facility]) J96.11 Chronic respiratory failure with hypoxia ([facility]) - fluticasone (FLONASE) 50 mcg/actuation nasal spray U se 2 Sprays in each nostril once daily. Rinse mouth after use. - COMPOUNDED PRESCRIPTION Ba sed on 6 minute walk in July 2017, patient requires 2 L continuous supplemental oxygen. DME: Mohit. - leflunomide (ARAVA) 10 mg tablet Take 1 tablet by [facility] once daily. - COMPOUNDED PRESCRIPTION Face [...] by the nurse dory salgado reviewed by ut Nursing Notes: Shayna Perez RN 09/18/2019 12:53 [...] was offered a stuart rgery/procedure at a [facility] facility. The provider and patient have discussed [...] 02-16-2022 Systolic blood 131 mm[Hg] Chair [facility] 12:54-0400 pressure 02-06-2022 Body height 160 cm Junior Mathew MD [facility] [id number] Work Phone: 02-06-2022 Body weight 84.37 kg Junior Mathew MD [facility] [id number]:[id number] Work Phone: 02-06-2022 Diastolic blood 74 mm[Hg] Junior Mathew MD [facility] 14:440400 pressure Work Phone: 02-06-2022 Heart rate 88 /min Junior Mathew MD [facility] [id number] Work Phone: 02-06-2022 Respiratory rate 20 /min Junior Mathew MD [facility] [id number] Work Phone: 02-06-2022 SaO2% (BldA) [Mass 96 % Junior Mathew MD [facility] 14:440400 fraction] Work Phone: 02-06-2022 Systolic blood 106 mm[Hg] Junior Mathew MD [facility] 14:440400 pressure Work Phone: 01-30-2022 Body temperature 94.6 [degF] Asia Calderón MD [facility] 11:[id number] Work Phone: 01-30-2022 Diastolic blood 78 mm[Hg] Asia Calderón MD [facility] 11:380400 pressure Work Phone: 01-30-2022 Heart rate 94 /min Asia Calderón MD [facility] [id number]:[id number] Work Phone: 01-30-2022 Respiratory rate 20 /min Asia Calderón MD [facility] 11:[id number] Work Phone: 01-30-2022 SaO2% (BldA) [Mass 97 % Asia Calderón MD [facility] 11:380400 fraction] Work Phone: 01-30-2022 Systolic blood 130 mm[Hg] Asia Calderón MD [facility] 11:38-0400 pressure Work Phone: 01-01-2022 Heart rate 86 /min Sirena Royal MILL OPERATOR HEAD.MAINTENANCE SHOP LABORER Cl [facility] 14: Work Phone: 01-01-2022 Respiratory rate 16 /min Sirena Royal MILL OPERATOR HEAD.CN P [facility] 14:25 Work Phone: 01-01-2022 SaO2% (BldA) [Mass 98 % Sirena Marcusfield MILL OPERATOR HEAD. MAINTENANCE SHOP LABORER [facility] 14:25040 fraction] Work Phone: 12-23-2021 Body temperature [...] 13:47-0400 12-23-2021 SaO2% (BldA) [Mass 94 % [facility] 13:47-0400 fraction] 12-23-2021 Systolic blood 117 [...] 11-10-2021 Body temperature 97.9 [degF] Chair [facility] 12:[id number] Work Phone: 11-10-2021 Body weight 79.92 kg Chair [facility] 12:52-0400 Work Phone: 11-10-2021 Diastolic blood 64 mm[Hg] [facility] 12:52-0400 pressure Work Phone: 11-10-2021 Heart rate 98 /min [facility] 12:52-0400 Work Phone: 11-10-2021 Respiratory rate 20 /min [facility] 12:52-0400 Work Phone: 11-10-2021 SaO2% (BldA) [Mass 97 % [facility] 12:52-0400 fraction] Work Phone: 11-10-2021 Systolic blood 119 mm[Hg] [facility] angela 12:52-0400 pressure Work Phone: 10-30-2021 Heart rate 88 /min Rick Feng MD [facility] 09:59-0400 Work Phone: 10-30-2021 Respiratory rate 20 /min Rick Feng MD [facility] 09:59-0400 Work Phone: 10-30-2021 SaO2% (BldA) [Mass 97 % Rick Feng MD [facility] 09:59-0400 fraction] Work Phone: 09-23-2021 Body weight 80.29 kg FORTINO Becerra PA-C [facility] 14:44-0400 Work Phone: 09-23-2021 Diastolic blood 70 mm[Hg] NA Becerra ANDREA [facility] 14:44-0400 pressure Work Phone: 09-23-2021 Heart rate 85 /min NA Hernan RICARDOJorge AlbertoDeja [facility] 14:44-0400 Work Phone: 09-23-2021 SaO2% (BldA) [Mass 96 % NA Becerra ANDREA [facility] 14:440400 fraction] Work Phone: 09-23-2021 Systolic blood 120 mm[Hg] NA Hernan RICARDOJorge AlbertoDeja [facility] 14:440400 pressure Work Phone: 09-18-2021 Body height 160 cm Asia Calderón MD [facility] 11: Work Phone: 09-18-2021 Body temperature 96.21 [degF] Asia Calderón MD [facility] 11: Work Phone: 09-18-2021 Body weight 81.19 kg Asia Calderón MD [facility] 11: Work Phone: 09-18-2021 Diastolic blood 88 mm[Hg] Asia Calderón MD [facility] 11: pressure Work Phone: 09-18-2021 Heart rate 82 /min Asia Calderón MD [facility] 11: Work Phone: 09-18-2021 Respiratory rate 20 /min Asia Calderón MD [facility] 11: Work Phone: 09-18-2021 Systolic blood 148 mm[Hg] Asia Calderón MD [facility] 11: pressure Work Phone: 09-08-2021 Body height 162.6 cm Yovani Piedra DO [facility] 15: Work Phone: 09-08-2021 Body weight 82.42 kg Yovani Piedra DO [facility] 15: Work Phone: 09-08-2021 Diastolic blood 58 mm[Hg] Yovani Piedra DO [facility] 15: pressure Work Phone: 09-08-2021 Heart rate 86 /min Yovani Piedra DO [facility] 15: Work Phone: 09-08-2021 SaO2% (BldA) [Mass 94 % Yovani Piedra DO [facility] 15:040 fraction] Work Phone: 09-08-2021 Systolic blood 102 mm[Hg] Yovani Piedra DO [facility] 15: pressure Work Phone: 08-07-2021 Body weight 84.37 kg Respiratory Wstr [facility] 13:50-0400 Work Phone: 08-07-2021 Diastolic blood 77 mm[Hg] Jacquelin Patel PA-C [facility] 13:50-0400 pressure Work Phone: 08-07-2021 Heart rate 93 /min Jacquelin Patel PA-C [facility] 13:50-0400 Work Phone: 08-07-2021 SaO2% (BldA) [Mass 96 % Jacquelin Patel [facility]C [facility] 13:50-0400 fraction] Work Phone: [...] 08-07-2021 Respiratory rate 16 /min Respiratory Wstr [facility] 13:000400 Work Phone: 08-07-2021 SaO2% (BldA) [Mass 98 % Respiratory Wstr [facility] 13:000400 fraction] Work Phone: 08-07-2021 Systolic blood 119 mm[Hg] Respiratory Wstr [facility] 13:000400 pressure Work Phone: Encounters Encounter Date Encounter Type Care Provider Facility Start: 04-03-2022 Orders Only Asia Abel Work Phone: [facility] Start: 03-30-2022 Telephone encounter Alexa Becerra PA-C [facility] Luisana Work Phone: Comment on above: Patient Update Start: 03-17-2022 ambulatory YANCI BECERRA Facility:[facility] End: 03-17-2022 Hospital Start: 03-16-2022 ambulatory Alexa BECERRA Facility:[facility] End: 03-16-2022 Start: 03-16-2022 ambulatory Chair 5 [facility] End: 03-16-2022 Work Phone: Comment on above: Other osteoporosis without c urrent pathological fracture (Primary Dx); 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) Start: 03-09-2022 Orders Only Asia england Work Phone: [facility] Start: 03-04-2022 Documentation Mammography Coordinator [facility] procedure MAIN Start: 03-04-2022 Letter encounter Mammography Coordinator [facility] Department Start: 03-04-2022 Refill Alexa Becerra PA-C [facility] End: 03-04-2022 Work Phone: [place] Comment on above: Refill Request Start: 02-23-2022 [facility] End: 02-23-2022 Start: 02-16-2022 ambulatory Chair 4 [facility] Hematology/On cology End: 02-16-2022 Comment on above: Other osteoporosis without c urrent pathological fracture (Primary Dx); 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) Start: 02-10-2022 Telephone encounter Asia Calderón MD [facility] [place] Work Phone: [facility]ology [facility] Comment on above: Orders (RECLAST) Start: 02-09-2022 Orders Only Asia Calderón MD [facility] tomás [facility] Work Phone: [facility] Rheumatology and Arthritis Start: 02-06-2022 ambulatory YANCI BECERRA Facility:[facility] End: 02-06-2022 [facility] Start: 02-06-2022 Patient encounter Junior Mathew MD [facility] End: 02-06-2022 procedure Work Phone: Comment on above: Interstitial pulmonary disea se (HCC) (Primary Dx); Rheumatoid lung (HCC); Bronchiectasis without compl ication (HCC); Moderate COPD (chronic obstr uctive pulmonary disease) (HCC); Chronic respiratory failure with hypoxia (HCC) Start: 01-30-2022 ambulatory Alexa BECERRA [facility] End: 01-30-2022 Start: 01-30-2022 Patient encounter Asia Calderón MD [facility] End: 01-30-2022 procedure Work Phone: [facility] Rheumatology and Arthritis Comment on above: 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); Vitamin D deficiency; Other osteoporosis without c urrent pathological fracture Start: 01-19-2022 ambulatory Alexa BECERRA Facility[facility] End: 01-19-2022 Start: 01-12-2022 Orders Only Asia Calderón MD [facility] Work Phone: Rheum atology and Arthritis Comment on above: Population Health Navigation Outreach ([facility] care gaps) Start: 01-01-2022 ambulatory Alexa BECERRA Facility[facility] End: 01-01-2022 Start: 01-01-2022 Patient encounter Sirena Royal MILL OPERATOR HEAD.MAINTENANCE SHOP LABORER [facility] End: 01-01-2022 procedure Work Phone: [facility] SPINE [facility] PAIN Comment on above: Chronic pain syndrome (Prima ry Dx); Generalized OA; Myofascial pain Start: 12-26-2021 ambulatory YANCI BECERRA Facility:[facility] End: 12-27-2021 Start: 12-23-2021 ambulatory Chair 1 [facility] Hematology/On cology End: 12-23-2021 Comment on above: 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) (Violette joseph Dx) Start: 12-10-2021 ambulatory Alexa BECERRA Facility:[facility] Start: 12-10-2021 [facility] End: 12-10-2021 visit by physician MAKI Comment on above: 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 Work Phone: [facility] Rheumatology and Arthritis Comment on above: Refill Request Start: 11-27-2021 Telephone encounter Rick Feng MD Radiology Work Phone: Comment on above: Medication Problem Start: 11-24-2021 ambulatory Chair 2 [facility] Hematology/On cology End: 11-25-2021 Work Phone: Comment on above: 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) (Violette joseph Dx) Start: 11-12-2021 ambulatory Alexa Becerra PA-C Internal Medicine Main Work Phone: Genny s Start: 11-10-2021 ambulatory Chair 2 [facility] Hematology/On cology End: 11-10-2021 Work Phone: Comment on above: 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) (Violette joseph Dx) Start: 11-05-2021 ambulatory Alexa BECERRA Facility:[facility] End: 11-05-2021 Start: 11-04-2021 Refill M Adelina Becerra PA-C Family M sarah [facility]berman Work Phone: Comment on above: Refill Request Start: 10-30-2021 ambulatory RICK FENG Facility:[facility] End: 10-30-2021 Start: 10-30-2021 Patient encounter Rick [facility] End: 10-30-2021 procedure Work Phone: GENER [facility] SPINE AND PAIN Comment on above: Chronic pain syndrome (Prima ry Dx); Generalized OA; Myofascial pain Start: 10-23-2021 Telephone encounter Asia Calderón MD [facility] Work Phone: Rheum atology Comment on above: APPROVED-NO PA REQ ([place]rencia APPROVED NO PA REQ [id number] 11.10.2021 - 11.10.2022 12) Start: 10-23-2021 ambulatory YANCI BECERRA Facility:[facility] End: 10-23-2021 Hospital Start: 10-22-2021 ambulatory Asia Calderón MD [facility] General End: 10-22-2021 Work Phone: Rheum atology and Arthritis Comment on above: 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) (Primary Dx); halfway current use of sys temic steroids; Current chronic use of syste riccardo steroids; Pain in joint, multiple site s; High risk medication use Start: 10-22-2021 Telemedicine Asia Calderón MD [facility] End: 10-22-2021 consultation with Work Phone: patient Start: 10-13-2021 ambulatory Peggy Bekesz civil preparedness officer Ca re Management Comment on above: ACM INEZ RN (Suspect Condition Review) Start: 09-23-2021 ambulatory YANCI BECERRA Facility:[facility] End: 09-23-2021 Hospital Start: 09-23-2021 Patient encounter Alexa Jarrett [facility] [place] End: 09-23-2021 procedure Work Phone: Comment on above: Hypertriglyceridemia (Primar y Dx); Paroxysmal atrial fibrillati on (HCC); Chronic respiratory failure with hypoxia (HCC); Type 2 diabetes mellitus wit hout complication, without long-term current use of insulin (HCC); 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); Elevated ferritin; Iatrogenic adrenal insuffici ency (HCC); Lung nodule, multiple; halfway current use of imm unosuppressive drug; Pre-diabetes; CESAR (obstructive sleep apnea ); Hyperthyroidism Start: 09-19-2021 ambulatory YANCI BECERRA Facility:[facility] End: 09-19-2021 Hospital Start: 09-19-2021 [...] Start: 09-18-2021 Patient encounter Asia Calderón MD [facility] End: 09-18-2021 procedure Work Phone: Gener al Rheumatology and Arthritis Comment on above: 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) (Primary Dx); Pain in joint, multiple site s; 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; Osteoporosis, unspecified os teoporosis type, unspecified pathological fracture presence Start: 09-11-2021 Refill Alexa Becerra PA-C [facility] [place] Work Phone: Comment on above: Refill Request Start: 09-09-2021 ambulatory [facility] Facility:[facility] End: 09-09-2021 Hospital Start: 09-08-2021 ambulatory [facility] Facility:[facility] End: 09-08-2021 Hospital Start: 09-08-2021 Patient encounter Yovani Piedra DO Card iology End: 09-08-2021 procedure Work Phone: Comment on above: Paroxysmal atrial fibrillati on (HCC) (Primary Dx); Inappropriate sinus tachycar ivette; Chronic anticoagulation; Hyperlipidemia, mixed; ILD (interstitial lung disea se) ([facility]); Panlobular emphysema (HCC); Chronic respiratory failure with hypoxia (HCC); Rheumatoid arthritis involvi ng multiple sites with positive rheumatoid factor ([facility]) Start: 08-21-2021 Refill Alexa Lieberman Work Phone: Comment on above: Refill Request Start: 08-07-2021 ambulatory [facility] Facility:[facility] End: 08-07-2021 Hospital Start: 08-07-2021 ambulatory Respiratory Therapist [facility] End: 08-07-2021 Work Phone: Comment on above: Spirometry Start: 08-07-2021 Patient encounter Respiratory Therapist [facility] Juliane [facility] End: 08-07-2021 procedure Work Phone: EDI MANCILLA Comment on above: Stage 3 severe COPD by GOLD classification (HCC) (Primary Dx); Bronchiectasis without compl ication (HCC); ILD (interstitial lung disea se) ([facility]); Chronic respiratory failure with hypoxia (HCC) Start: 08-01-2021 Telephone encounter Alexa Oliva ly Medicine Work Phone: Trav lee Comment on above: Medication Request Start: 06-23-2021 [facility] Facility:[facility] End: 06-23-2021 Start: 06-19-2021 ambulatory [facility] Facility:[facility] End: 06-19-2021 Start: 06-10-2021 ambulatory Alexa BECERRA Facility:[facility] End: 06-10-2021 Start: 05-12-2021 ambulatory Alexa BECERRA [facility] End: 05-13-2021 Start: 04-25-2021 ambulatory Alexa BECERRA [facility] End: 04-25-2021 Start: 04-01-2021 ambulatory YANCI BECERRA [facility] End: 04-01-2021 Procedures Date [...] Care Activity Detail Author Start: Colonoscopy COLONOSCOPY [facility] 10-08-2029 Start: COLORECTAL CANCER COLORECTAL CANCER SCREENING [facility] 10-08-2029 SCREENING Start: Urine microalbumin DTAP,TDAP,TD (2 - Td or Tdap) [facility] 11-28-2028 profile Start: Mammography MAMMOGRAM [facility] 03-04-2023 Start: ANNUAL PCP TEAM ANNUAL PCP TEAM CHRONIC [facility] 12-26-2022 CHRONIC DISEASE VISIT DISEASE VISIT Start: Adult depression DEPRESSION SCREENING [facility] 10-30-2022 screening assessment Start: ANNUAL PCP TEAM ANNUAL PCP TEAM CHRONIC [facility] 09-23-2022 CHRONIC DISEASE VISIT DISEASE VISIT Start: Hepatitis C antibody, DILATED RETINAL EXAM [facility] 09-19-2022 confirmatory test Start: ANNUAL PCP TEAM [facility] CHRONIC DISEASE VISIT DISEASE VISIT Start: PNEUMOCOCCAL (4 - PNEUMOCOCCAL (4 - PPSV23 if [facility] 2022 PPSV23 if available, available, else PCV20) else PCV20) Start: PNEUMOCOCCAL (4 - PNEUMOCOCCAL (4 - PPSV23 or Cl [facility] 2022 PPSV23 or PCV20) PCV20) Start: HPV TESTING HPV TESTING [facility] 03-26-2022 Start: PAP TESTING PAP TESTING [facility] 03-26-2022 Start: Hemoglobin HBA1C [facility] 03-12-2022 A1c/Hemoglobin.total in Blood Start: 12-24-2021 Hemoglobin HGB A1C Lab Routine Type 2 [facility] End: 02-23-2022 A1c/Hemoglobin.total diabetes mellitus without W ork Phone: in Blood complication, without long-term current use of insulin (HCC) Hyperthyroidism Hypertriglyceridemia Expected: 12/24/2021, Expires: 02/23/2022 Comment on above: Expected: 12/24/2021, s: 02/23/2022 Start: 12-24-2021 LIPID PANEL LIPID PANEL BASIC Lab Routine [facility] End: 02-23-2022 BASIC Type 2 diabetes mellitus Work Ph one: without complication, without long-term current use of insulin (HCC) Hyperthyroidism Hypertriglyceridemia Expected: 12/24/2021, Expires: 02/23/2022 Comment on above: Expected: 12/24/2021, s: 02/23/2022 Start: 12-18-2021 Influenza vaccination INFLUENZA (#1) [facility] Start: 09-27-2021 Hepatitis C antibody, DILATED RETINAL EXAM [facility] confirmatory test Start: 07-03-2021 COVID-19 VACCINE (4 - COVID-19 VACCINE (4 - Cl [facility] Booster for Pfizer Booster for Pfizer series) series) Start: 06-27-2021 COVID-19 VACCINE (4 - COVID-19 VACCINE (4 - Cl [facility] Booster for Pfizer Booster for Pfizer series) series) Start: 06-17-2021 Hepatitis B surface LDL CHOLESTEROL [facility] antibody level Start: 05-30-2021 COVID-19 VACCINE (4 - COVID-19 VACCINE (4 - Cl [facility] Booster for Pfizer Booster for Pfizer series) series) Start: 04-19-2021 DEPRESSION ASSESSMENT DEPRESSION ASSESSMENT [facility] Start: 03-05-2021 Hepatitis B screening URINE [facility] ALBUMIN:CREATININE RATIO Start: 12-18-[address] [facility] A1c/Hemoglobin.total in Blood Start: 02-14-2020 Adult depression DEPRESSION SCREENING [facility] screening assessment Start: 12-27-[address] [facility] Start: 12-01-2019 FECAL OCCULT BLOOD FECAL OCCULT BLOOD [facility] Start: 2007 SHINGRIX VACCINE (1 of SHINGRIX VACCINE (1 of [facility] 2) 2) Start: 2002 COLOGUARD (FIT-DNA) COLOGUARD (FIT-DNA) [facility] Start: [address] COLONOGRAP[address] [facility] Start: [address] [facility] Start: 1976 SHINGRIX VACCINE (1 of SHINGRIX VACCINE (1 of [facility] 2) 2) Start: 1975 HIV SCREENING HIV SCREENING [facility] Start: 1967 3 comp foot exam DIABETIC FOOT EXAM [facility] completed Ct thorax w/o contrast CT CHEST WO RUION [facility] End: 03-08-2023 material Radiology Routine Work Phone: Interstitial pulmonary disease (HCC) 1 Occurrences starting 02/06/2022 until 03/08/2023 Comment on above: 1 Occurrences starting 02/06 until 03/08/2023 Dxa bone density DXA-AXIAL SKELETON [facility] End: 10-18-2022 study 1/> sites Radiology Routine Long Work Phon e: axial skel term current use of systemic steroids Osteoporosis, unspecified osteoporosis type, unspecified pathological fracture presence Rheumatoid arthritis involving multiple sites with positive rheumatoid factor (HCC) 1 Occurrences starting 09/18/2021 until 10/18/2022 Comment on above: 1 Occurrences starting 09/18 until 10/18/2022 Dxa bone density study 1/> sites [facility] End: 12-10-2021 axial skel Work Phone: Comment on above: 1 Occurrences starting 12/10 until 12/10/2021 Screening mammography ERNIE SCREENING [facility] End: 12-12-2022 bi 2-view breast inc Radiology Routine Work Phon e: cad Encounter for screening mammogram for breast cancer 1 Occurrences starting 11/12/2021 until 12/12/2022 Comment on above: 1 Occurrences starting 11/12 until 12/12/2022 [facility] Immunizations Immunization Date Immunization Notes Care Provider Facility 02-06-2021 influenza, injectable, NA Becerra PA-C [facility] quadrivalent, contains Work Phone: Work Phone: preservative 07-27-2020 COVID-19 vaccine, age NA Becerra PA-C [facility] 12+ yr ([employer] Work Phone: Work Phone: - PURPLE TOP) 07-06-2020 COVID-19 vaccine, age NA Becerra PA-C [facility] 12+ yr ([employer] Work Phone: Work Phone: - PURPLE TOP) 02-03-2020 influenza, seasonal, NA Becerra PA-C [facility] injectable, preservative Work Phone: Work Phone: free 03-02-2019 pneumococcal conjugate NA Becerra PA-C [facility] vaccine, 13 valent Work Phone: 02-10-2019 influenza, injectable, NA Becerra PA-C [facility] quadrivalent, contains Work Phone: preservative 01-04-2019 influenza, seasonal, NA Becerra PA-C [facility] injectable, preservative Work Phone: [phone] free 11-28-2018 tetanus toxoid, reduced NA Becerra PA-C [facility] diphtheria toxoid, and Work Phone: Work Phone: acellular pertussis vaccine, adsorbed 03-24-2018 influenza, injectable, NA Becerra PA-C [facility] quadrivalent, contains Work Phone: preservative 01-19-2017 influenza, injectable, NA Becerra PA-C [facility] quadrivalent, Work Phone: preservative free 01-19-2017 pneumococcal [facility], Work Phone: 23 valent 01-15-2012 influenza virus vaccine, NA [facility] unspecified formulation Work Phone: 03-10-2011 influenza virus vaccine, NA [facility]C [facility] unspecified formulation Work Phone: 03-10-2011 pneumococcal NA [facility]C [facility] polysaccharide vaccine, Work Phone: 23 valent Payers Date Payer Category Payer Medicare UHC MEDICARE UHC DUAL [id number] COMPLETE O SNP [id number] 2021-Present [id number] [address] [place] [id number] Medicare 2021 Medicare UHC MEDICARE UHC DUAL [id number] COMPLETE HMO SNP [id number] 2021-Present [phone] [address] [place] [address] Medicare 2021 Unknown [id number] 2020 Medicaid [employer] [id number] [facility] MEDICAID [id number] 2020-Present [phone] [address] [place] [address] Medicaid 2020 Medicaid [employer] [facility] [id number] [employer] [id number] 2020-Present [phone] [address] [place] [address] Medicaid 2020 Medicaid [id number] Social History Date Type Detail Facility Start: 02-16-2011 Tobacco smoking status [facility]oker [facility] End: 12-26-2021 [facility] Start: 01-01-1970 History of tobacco use Current smoker [facility] End: 09-09-2010 Start: 02-16-2011 Cigarettes smoked current 0.5 [facility] End: 12-26-2021 (pack per day) - [...] Drinks Start: 12-19-2021 History SDOH Social 98 [facility] Get Together Start: 12-19-2021 History SDOH Social 3 [facility] Living Medical Equipment Procedure Code Equipment Code Equipment Original Equipment Identifi er Dates Text Lens Iol Ultrasert [id number] Start: 18.5 - [id number] 12-15-2017 Lens Iol Ultrasert [id number] Start: 18.5 - [id number] 01-05-2018 Clinical Notes 05-12-2019 to 03-30-2022 Telephone Encounter - Leslie Walker Ma - 03/30/2022 5:02 PM ESTTelephone Encounter - Alexa Becerra PA-C - 03/30/2022 3:13 PM ESTTelephone Encounter - Suzy Haynes RN - 03/30/2022 10:00 AM EST Note Date & Type Note Facility 03-30-2022 Miscellaneous Formatting of this note migh t be different from the original. [facility] Notes notified of provider message Formatting of this note might be differe nt from the original. Sounds like the appropriate treatment wa s completed,. Let me know if anything is worsening. Her WBC was elevated 21.3, a bs neut 17.5 this may have been from trackwalker prednisone though it was stopped mid Novmber. [...] in this encounter 03-17-2022 Note HNO ID: [id number] [facility] Author: Yovani Piedra, DO Carlos andrade Service: ? Author Type: Physician Type: Progress Notes Filed: 03/17/2022 3:48 PM Note Text: [facility] [place] Sanjiv Sprague Department of Cardiovascular Medicine SECTION [...] ory failure again. She did got to [facility] for pneu monia admit in January 2019: Preadmission evaluation: SOB and cough x 2 days. No fever. had URI. Which facility: [facility] Dates of visit: !-02/02/19 Primary Diagnosis/es: MSSA, [...] was printed off for her at t [facility] visit. She did not send in the paperwork because she's had significant life stressors over the past month. Her son is in rehab for a drug ad diction, and this has consumed the majority of her time. She was admitted [facility] in April 2017 with sepsis and pneumonia [...] bronchiectasis. She follows with pulmonary at the [facility] now. There was a note that they [...] migh t be different from the original. [facility] Notes March 04, 2022 PID: [id number] Viviana Santana [address] [place] [id number] Dear Ms. Santana, Your recent breast imaging e xam on 03/04/2022 showed a possible finding that requires additional imaging studies for a complete evaluation. Most such findings are probably benign (not cancer). If you have a healthcare pro vider who ordered/prescribed your screening mammogram: Please call [phone] or [phone]: [phone] to schedule an appointment for your additional imaging (if you have not already done so). If you DO NOT have a [facility] are provider (ie you did not have [...] rep orts are kept on file at [facility] as part of your permanent medical record, and are available for your continuing care. Thank you for allowing us to help in harish ting your health care needs. Sincerely, Dr. Henderson Interpreting Radiologist [facility] (Additional imaging) documented in this encounter 03-04-2022 Note HNO ID: [id number] [facility] Author: Tammi Cates [employer]World [place] and Service: ? Author Type: Photovoltaic Technician Type: Progress Notes Filed: 03/04/2022 1:52 PM [...] DATA: Not applicable SIGNED BY: Tammi Cates [employer]World March 04, 2022 1:52 PM 03-04-2022 Miscellaneous Formatting of this note is d ifferent from the original. [facility] Notes Patient has been identified by name [...] in this encounter 02-23-2022 Note HNO ID: [id number] [facility] Author: RT Conchis(R) Justin parks Service: ? Author Type: Photovoltaic Technician Type: Progress Notes Filed: 02/23/2022 1:50 PM [...] by: ASIA CALDERÓN on: 1 10:30 AM [facility] Notes Modules accepted: Orders Formatting of this note might be differe nt from the original. Patient does not have active orders for Reclast. Please place orders so we can get her sc heduled at [facility]. Thanks, Sayda Jimenez LPN documented in this encounter 02-06-2022 Note HNO ID: [id number] [facility] Author: MD Adore Newman Service: ? Author Type: Physician Type: Progress Notes Filed: 02/06/2022 8:36 PM Note Text: . [facility] [place] Note Patient name: Viviana Santana PCP: Alexa [...] on inhaled therapy. Established with a n provisioning specialist due to insurance change in coverage. Current [...] Abs Lymph 1.00 - 4.00 k/uL 1.56 Traill% % 5.5 Abs Traill <0.87 k/uL 0.69 Eosin% % 3.3 Abs Eosin <0.46 k/uL 0.42 Baso% % 1.0 Abs Baso <0.11 k/uL 0.13 High Immature Gran % % 0.4 Abs Immature Gran <0.10 k/uL 0.05 NRBC /100 WBC 0.0 Absolute nRBC <0.01 k/uL <0.01 Diff Type Auto Imaging / Diagnostic Studies: Reviewed CT from [facility] 08/2020: I personally reviewed images which show [...] note is different f rom the original. [facility] Present illness Narrative Images from the original note were not included. . [facility] [place] [facility] Patient name: Viviana Santana PCP: Alexa [...] inhaled the rapy. Established with a new provisioning specialist due to insurance change in coverage. Current [...] Abs Lymph 1.00 - 4.00 k/uL 1.56 Traill% % 5.5 Abs Traill <0.87 k/uL 0.69 Eosin% % 3.3 Abs Eosin <0.46 k/uL 0.42 Baso% % 1.0 Abs Baso <0.11 k/uL 0.13 High Immature Gran % % 0.4 Abs Immature Gran <0.10 k/uL 0.05 NRBC /100 WBC 0.0 Absolute nRBC <0.01 k/uL <0.01 Diff Type Auto Imaging / Diagnostic Studies: Reviewed CT from [facility] 08/2020: I personally reviewed images which show [...] which included preparing to see the patient, [id number] patient care, completing clinical documentation, obtaining and/or reviewing separately obtained history, performing a medically appropriate examination, ordering medications, tests, or procedures, and independently interpreting results (not separately reported). Junior Mathew MD [facility] [place] documented in this encounter 01-30-2022 Note HNO ID: [id number] [facility] Author: Asia Calderón MD Center Service: ? [...] with RA 2016. She was admitted at [facility] - double pneumonia, RA. She was seeing [...] polyneuropath y. She follows with pulm in [place]. RA, chronic steroids, adrenal insuff Family h/o [...] note is different f rom the original. [facility] Present illness Narrative RHEUMATOLOGY PROGRESS NOTE Patient [...] with RA 2017. She was admitted at [facility] - double pneumonia, RA. She was seeing [...] polyneuropath y. She follows with pulm in [place]. RA, chronic steroids, adrenal insuff Family h/o [...] this encounter 01-12-2022 Note Patient Outreach (JAVIER) [facility] ic Brewer VIVIANA SANTANA ([id number]) 1955 F Date Time Provider Department 01/12/22 LUIS MIGUEL LEVY During your visit today, we recorded the following information about you: Luis Miguel Levy MA 01/12/2022 12:24 PM [facility] POPULATION HEALTH NAVIGATION OUTREACH Action/FYI Called and [...] or Scheduling/Wellness visits Payer: Payor: [facility] MEDICARE / Plan: [facility] DUAL COM PLETE HMO SNP / Product [...] Navigation Outreach [3 [phone]] Cmt: [facility] care gaps Prescriptions as of 01/12/2022 - [...] Accessories for nebulizer J43.1 Panlobul ar emphysema ([facility]) (primary encounter diagnosis) J84.9 ILD (intersti tial lung disease) ([facility]) - COMPOUNDED PRESCRIPTION #1 Continuous Flow Stationary O2 Concent rator Sig: O2 2l/min liter flow Patient is to keep portablel concentrato r as well J43.2 Centrilobular emphysema ([facility]) J84.9 ILD (interstitial lung disease) ([facility]) J96.11 Chronic respiratory failure with hypoxia ([facility]) - COMPOUNDED PRESCRIPTION Face mask: hypoxia - [...] content not included)... 01-12-2022 Note HNO ID: [id number] [facility] Author: Luis Miguel Levy MA [place] Service: ? Author Type: Regulatory And Compliance Technician Type: Progress Notes Filed: 01/12/2022 12:24 PM Note Text: POPULATION HEALTH NAVIGATION OUTREACH Action/FYI Called and left a message to call [phone], to discuss health maintenance items that are [...] or Scheduling/Wellness visits Payer: Payor: [facility] MEDICARE / Plan: [facility] DUAL COM PLETE HMO SNP / Product [...] note is different f rom the original. [facility] Present illness Narrative POPULATION HEALTH NAVIGATION OUTRE ACH Action/FYI Called and left a message to call [phone], to discuss health maintenance items that are [...] or Scheduling/Wellness visits Payer: Payor: [facility] MEDICARE / Plan: [facility] DUAL COMPLETE HMO SNP / Product Type: [...] in this encounter 01-01-2022 Note HNO ID: [id number] [facility] Author: 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 Ronn ter Service: ? Author Type: Nurse Practitioner Type: Progress Notes Filed: 01/01/2022 2:42 PM Note Text: [facility] Today's Date: 01/01/2022 Last Visit: 10/30/21 [...] vity was identified. 01/01/2022 by 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 Last Drug screen: Not Applicable Risk Assessment: [...] content not included)... 01-01-2022 Note HNO ID: [id number] [facility] Author: Lilian White MA Center Service: ? Author Type: Regulatory And Compliance Technician Type: Progress Notes Filed: 01/01/2022 2:42 PM [...] not n ervous/anxious. 01-01-2022 Instructions 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 - 01/01/2022 2:42 PM EDT [facility] Activity as tolerated Use Ice and/or heat as tolerated as need ed documented in this encounter 01-01-2022 History of Formatting of this note is different f rom the original. [facility] Present illness Narrative Images from the original note were not included. [facility] Today's Date: 01/01/2022 Last Visit: 10/30/21 [...] activity was identified. 01/01/2022 by 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 Last Drug screen: Not Applicable Risk Assessment: [...] Gabapentin as directed (managed by PCP) Functional Adventist: No changes-cyndy nue current regimen Additional Studies: [...] decision making from today's date. 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 Pain Management [facility] [place] [facility] ystem Formatting of this note might [...] in this encounter 12-26-2021 Note HNO ID: [id number] [facility] Author: Alexa Becerra PA-C [place] Service: ? Author Type: Physician Air Analyst Type: Progress Notes Filed: 12/27/2021 12:50 PM [...] - 4.00 k/uL 2.11 1.19 1.5 2 Traill% % 5.9 4.2 3.8 Abs Traill <0.87 k/uL 0.56 0.44 0.40 Eosin% % [...] of systemic steroids Iatrogenic adrenal insufficiency (hcc) halfway current use of immunosuppressi ve drug Chronic neutrophilia Current medications: leflunomide 20mg I tab daily Prednisone 4 mg daily and weaning Current doing well, pain controlled, goo d mobility Elevated ferritin Coming down on prednisone Component Latest R (more content not inc luded)... 12-10-2021 Note HNO ID: [id number] [facility] Author: Jennifer Mancini RT(R) [...] migh t be different from the original. [facility] Present illness Narrative Radiology Service Progress Note [...] in this encounter 12-08-2021 Note HNO ID: [id number] [facility] Author: Mikal Cuellar PA-C Center Service: ? Author Type: Physician Air Analyst Type: Progress Notes Filed: 12/08/2021 1:42 PM Note Text: [facility] General Arthritis and Rheumatology Mikal Cuellar [address] [facility] [address] [place] [address] RHEUMATOLOGY PROGRESS NOTE VIRTUAL VISIT PROGRESS NOTE This is a virtual visit using [employer] vi alesia visit. It required patient-provider interaction [...] with RA 2016. She was admitted at [facility] - double pneumonia, RA. She was seeing [...] DM2, polyneuropathy. She follows with pulm in [place]. RA, chronic steroids, adrenal insuff Family h/o [...] note is different f rom the original. [facility] Present illness Narrative Images from the original note were not included. [facility] General Arthritis and Rheumatology Mikal Cuellar [address] [place] [address] RHEUMATOLOGY PROGRESS NOTE VIRTUAL VISIT PROGRESS NOTE [...] with RA 2016. She was admitted at [facility] - double pneumonia, RA. She was seeing [...] DM2, polyneuropathy. She follows with pulm in [place]. RA, chronic steroids, adrenal insuff Family h/o [...] history of smoking. She follows with a construction representative. Per e patient there is no concern [...] note is d ifferent from the original. [facility] Notes Pharmacy requesting the following refill . Requested Prescriptions Pending Prescriptions Disp Refills leflunomide (ARAVA) 20 mg ta blet [Pharmacy Med Name: Leflunomide 20 MG Oral Tablet] 30 tablet 0 Sig: Take 1 tablet by mouth once daily Patient last appointment: 11/05/2021 Roddy dinero VV Next Appointment: 12/08/2021 Manjit Patient Phone numbers: [phone] (princess e) Request is for script(s) to be escript to pharmacy. [facility] [address] [place] [phone] [facility] [phone] Sayda Jimenez LPN documented in this encounter 08-11-2022 Miscellaneous Formatting of this note migh t be different from the original. [facility] Notes I called Viviana Santana and co [...] her dizzy. Please advise, call back to [phone]. Thank you. Electronically signed by Ismael colin 11/27/2021 12:33 PM EDT documented in this encounter 11-12-2021 Note Patient Outreach (INTMMN) [facility] [place] ESTHERVIVIANA Brigid ([id number]) 1955 F Date Time Provider Department 11/12/21 [...] for screening mammogram for breast cancer [Z12.31] Order(s):[facility] SCREENING [[id number]] Order # : [id number] FUTURE Prescriptions as of 11/17/2021 - verapamil [...] PRESCRIPTION Provide nebulizer accessory kit. DME: Serena bnoilla. - COMPOUNDED PRESCRIPTION Accessories for nebulizer J43.1 Panlobul ar emphysema ([facility]) (primary encounter diagnosis) J84.9 ILD (intersti tial lung disease) ([facility]) - COMPOUNDED PRESCRIPTION #1 Continuous Flow Stationary O2 Concent rator Sig: O2 2l/min liter flow Patient is to keep portablel concentrato r as well J43.2 Centrilobular emphysema ([facility]) J84.9 ILD (interstitial lung disease) ([facility]) J96.11 Chronic respiratory failure with hypoxia ([facility]) - COMPOUNDED PRESCRIPTION Face mask: hypoxia - [...] *05/19/2017 Rheumatoid arthritis involving multiple sites 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 11-05-2021 Note HNO ID: [id number] [facility] Author: Asia Calderón MD Center Service: ? Author Type: Physician Type: Progress Notes Filed: 11/05/2021 11:36 AM Note Text: VIRTUAL VISIT PROGRESS NOTE This is a virtual visit using [employer] vi alesia visit. It required patient-provider interaction for the [facility] decision making as documented below. Viviana [...] with RA 2016. She was admitted at [facility] - double pneumonia, RA. She was seeing [...] - COPD (chronic obstructive pulmonary di sease) ([facility]) Chronic bronchitis by history. - COVID-19 vaccine [...] note is d ifferent from the original. [facility] Notes Patient has been identified by name and date of : Yes Pending Prescriptions Disp Refills VERAPAMIL 80 MG TABLET 135 tablet 3 Sig: Take 0.5 tablets by mouth every 8 h ours. UNIQUE: No RX INSTRUCTIONS: Patient aware RX will be sent to pharmac y. No need to notify patient. Christina Keller Pss documented in this encounter 10-30-2021 Note HNO ID: [id number] [facility] Author: Loli Manuel MA Center Service: ? Author Type: Regulatory And Compliance Technician Type: Progress Notes Filed: 10/30/2021 10:27 AM [...] not nervo us/anxious. 10-30-2021 Note HNO ID: [id number] [facility] Author: Rick Feng MD Center Service: ? Author Type: Physician Type: Progress Notes Filed: 10/30/2021 10:27 AM Note Text: [facility] Today's Date: 10/30/2021 Last Visit: N/A [...] Relaxation;Reposition;Positioning;Medica tion;Exercise Comments - - Pain Assessment (RN/SINGEING TORCH OPERATOR) - - Medications: CURRENT Pain Medications: - Opioid Pain Medications: None o Date last filled: N/A o Quantity filled: N/A o How many left: N/A o Time most recent dose taken: N/A - Non-Opioid Pain Medications: o Prednisone 10mg daily o Neurontin 200mg qAM and 400mg qHS - he lps, tolerates - Lutg-sii-vaadlce (OTC) Pain Meds: Tyle nol - takes [...] migh t be different from the original. [facility] Present illness Narrative Review of Systems Constitutional: [...] i ncluded. [facility] Today's Date: 10/30/2021 Last Visit: N/A [...] Modification. o She exercises occasionally with an [employer] Dumbstruckise bike at home Follows with Dr. Calderón [...] Medication Relaxation;Reposition;Positioning;Medication;Exercise Comments - - Pain Assessment (RN/SINGEING TORCH OPERATOR) - - Medications: CURRENT Pain Medications: Opioid Pain Medications: None o Date last filled: N/A o Quantity filled: N/A o How many left: N/A o Time most recent dose taken: N/A Non-Opioid Pain Medications: o Prednisone 10mg daily o Neurontin 200mg qAM and 400mg qHS - he lps, tolerates Jkjc-gwr-qxmnyuy (OTC) Pain Meds: Tylen ol - takes [...] Referrals: No additional considerations at present Functional [facility]: Physical Therapy (Land-based) - AKBAR 13 (Afib and uses O2), has RA Depending on response to the above plan, consider: Alternative anti-epileptic drug (Cymbalta or Effexor); trigger point injections -Follow-up: 2 months (MAINTENANCE SHOP LABORER) Attribution: In addition to reviewing the information noted above, some elements copied from my most recent clinical note(s), including the physical exam (completed in entirety today), and the impressio n and plan sections, have be en updated where appropriate. All reflect current medical decision making from today's date. Rick Feng MD, [facility] [facility] S ystem documented in this encounter 10-23-2021 Miscellaneous Formatting of this note migh t be different from the original. [facility] Notes Kenymelviantonio APPROVED NO PA REQ [id number] - 11.10.2022 12 [address] [place] [employer] documented in this encounter 10-22-2021 Note HNO ID: [id number] [facility] Author: Asia Calderón MD Center Service: ? Author Type: Physician Type: Progress Notes Filed: 10/22/2021 12:53 PM Note Text: VIRTUAL VISIT PROGRESS NOTE This is a virtual visit using [employer] vi alesia visit. It required patient-provider interaction [...] with RA 2017. She was admitted at [facility] - double pneumonia, RA. She was seeing [...] Rheumatoid lung disease with rheumatoi d arthritis ([facility]) 12/2016 Dayanna Richards MD PAST SURGICAL HISTORY [...] Calderón MD - 2021 11:21 AM EDT [facility] Continue arava 20 mg Labs this week Prednisone 10 mg till next v isit documented in this encounter 10-22-2021 History of Formatting of this note is different f rom the original. [facility] Present illness Narrative VIRTUAL VISIT PROGRESS NOTE [...] with RA 2017. She was admitted at [facility] - double pneumonia, RA. She was seeing [...] DM2, polyneuropathy. She follows with pulm in [place]. 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 She follows with a construction representative. Per e patient there is no concern [...] in this encounter 10-13-2021 Note HNO ID: [id number] [facility] Author: Peggy Isbell RN [place] Service: ? Author Type: Registered Nurse Type: Progress Notes Filed: 10/13/2021 2:07 PM Note Text: ACM INEZ RN Action/FYI: NO ACTION REQUIRED Patient identified by name and date of b irth. Patient Attributed To: E Payer: [employer] [place] Reason for review or outreach: Suspect Condition Review Summary / Findings: NO ACTION REQUIRED Action Taken: No action needed Contact made with patient: No, Chart review only. Signature: Peggy Isbell RN 10-13-2021 History of Formatting of this note is different f rom the original. [facility] Present illness Narrative ACM INEZ RN Action/FYI: NO ACTION REQUIRED Patient identified by name and date of b irth. Patient Attributed To: QAE Payer: [employer] CT Reason for review or outreach: Suspect Condition Review Summary / Findings: NO ACTION REQUIRED Action Taken: No action needed Contact made with patient: No, Chart review only. Signature: Peggy Isbell RN documented in this encounter 10-13-2021 Note Patient Outreach ([facility]) [facility] ic Brewer VIVIANA SANTANA ([id number]) 1955 F Date Time Provider Department 10/13/21 PEGGY ISBELL During your visit today, we recorded the following information about you: Peggy Isbell RN 10/13/2021 2:07 PM Sign ed ACM INEZ RN Action/FYI: NO ACTION REQUIRED Patient identified by name and date of b ir. 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 09-23-2021 Note HNO ID: [id number] [facility] Author: Alexa Becerra PA-C [place] Service: ? Author Type: Physician Air Analyst Type: Progress Notes Filed: 09/24/2021 10:58 AM [...] - 4.00 k/uL 1.45 2.11 1.1 9 Traill% % 3.8 5.9 4.2 Abs Traill <0.87 k/uL 0.58 0.56 0.44 Eosin% % [...] note is different f rom the original. [facility] Present illness Narrative 66 year old female [...] - 4.00 k/uL 1.45 2.11 1.1 9 Traill% % 3.8 5.9 4.2 Abs Traill <0.87 k/uL 0.58 0.56 0.44 Eosin% % [...] Multiple Sites With Positive Rheumatoid Factor (Hcc) Mcc Current Use of Immunosuppressi ve Drug Paroxysmal [...] ICD10: R91.8 No recent follow up 9. halfway current use of immunosuppressive drug - ICD9: [...] in this encounter 09-19-2021 Note HNO ID: [id number] [facility] Author: Isaac Panchal, OD Justinrodrigo raymond Service: ? Author Type: SHIPPING AND RECEIVING SPECIALIST Type: Progress Notes Filed: 09/19/2021 4:03 PM [...] OD - 0 09/19/2021 4:03 PM EDT [facility] ASSESSMENT/PLAN: 1. Type 2 diabetes mellitus without [...] migh t be different from the original. [facility] Present illness Narrative ASSESSMENT/PLAN: 1. Type 2 [...] in this encounter 09-18-2021 Note HNO ID: [id number] [facility] Author: Asia Calderón MD [...] with RA 2016. She was admitted at [facility] - double pneumonia, RA. She was seeing [...] DM2, polyneuropathy. She follows with pulm in [place]. RA, chronic steroids, adrenal insuff ? Family [...] Pfizer - Hyperglycemia 12/25/2016 - Hyperthyroidism 05/10/2017 [place] - Rheumatoid arthritis ([facility]) Leflunomide. Dayanna Silva MD. - Rheumatoid lung [...] Calderón MD - 2021 11:49 AM EDT [facility] - increase pred 5 mg till next visit - increase Arava 20 mg daily - Lab in 1 month BONE MINERAL DENSITY PATIENT INSTRUCTION S = Bone mineral density testing measures the amount of calcium in certain parts of your bones. This information determines how strong your bones are. The test is used to detect osteoporosis, a disease in [facility] the bone's mineral cont ent and density [...] note is different f rom the original. [facility] Present illness Narrative RHEUMATOLOGY PROGRESS NOTE Patient [...] with RA 2017. She was admitted at [facility] - double pneumonia, RA. She was seeing [...] DM2, polyneuropathy. She follows with pulm in [place]. 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 She follows with a construction representative. Per th e patient there is no [...] note is d ifferent from the original. [facility] Notes Patient has been identified by name [...] in this encounter 09-08-2021 Note HNO ID: [id number] [facility] Author: DO Carlos Gomez nd Service: ? Author Type: Physician Type: Progress Notes Filed: 09/08/2021 3:26 PM Note Text: [facility] [place] San[facility]iv [facility] Department of Cardiovascular Medicine SECTION [...] ory failure again. She did got to [facility] for pneu manoharia admit in January 2019: Preadmission evaluation: SOB and cough x 2 days. No fever. had URI. Which facility: [facility] Dates of visit: !-02/02/19 Primary Diagnosis/es: MSSA, [...] [facility] She did not send in the paperwork because she's had significant life stressors over the past month. Her son is in rehab for a drug ad diction, and this has consumed the majority of her time. She was admitted A [facility] in April 2017 with sepsis and pneumonia [...] bronchiectasis. ?She follows with pulmonary at the [facility] now. ?There was a note that they [...] has hea rt problems - Chronic bronchitis ([facility]) - COPD (chronic obstructive pulmonary di sease) ([facility]) Chronic bronchitis by history. - COVID-19 vaccine series completed 07-27-2020 2nd dose Pfizer - Hyperglycemia 12/25/2016 - Hyperthyroidism 05/10/2017 [place] - Rheumatoid arthritis ([facility]) Leflunomide. Dayanna Silva MD. 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 [facility] Present illness Narrative Images from the original note were not included. [facility] [place] [facility] Department of Cardiovascular Medicine SECTION [...] respiratory failure again. She [facility]: Preadmission evaluation: SOB and cough x 2 days. No fever. had URI. Which facility: [facility] Dates of visit: !-02/02/19 Primary Diagnosis/es: MSSA, [...] majority of her time. She was admitted [facility] in April 2017 with sepsis and [...] bronchiectasis. She follows with pulmonary at the [facility] now. There was a note t hat they increased her metop rolol to 50 twice a day of long acting in the hospital however she was only taking 25 mg daily at this time. Her heart rate was 121 and sinus tachycardia. She is only able to walk a minimal amount in [facility] before she is short of breath. She [...] 2nd dose Pfizer Hyperglycemia 12/25/2016 Hyperthyroidism 05/10/2017 [place] Rheumatoid arthritis ([facility]) Leflunomide. Dayanna Silva MD. Rheumatoid lung disease [...] , carotids well felt, no bruits. CARD: [place] palpable in the 5 th intercostal space [...] note is d ifferent from the original. [facility] Notes Patient has been identified by name [...] in this encounter 08-07-2021 Note HNO ID: [id number] [facility] Author: ANDREA Cao Service: ? Author Type: Physician Air Analyst Type: Progress Notes Filed: 08/07/2021 3:01 PM Note Text: [facility] [place], 08/07/2021: Name: Viviana Santana : 1955 ? The patient is here today by herself. ? HPI: Viviana Santana is a 66 yo female with pmh significant for RA, A Fib on Xarelto, hyperthyroidism, bronchiectasis and COPD/asthma on home O2. Former smoker, quit 2010. 15 pack years. The patient is here for follow up of MANAGER QUANTITATIVE D. Since the last Pulmonary Clinic visit , the patient has not required ED care for exacerbation. There has been no hospital admission for exacerbation. Claims to be consistently compliant with prescribed maintenance Rx Duonebs four times daily with budesonide twice d aily. Taking Mucinex twice daily. Daily cough, primarily in the morning. S eems to be worse with seasonal allergies. Clear to [place] sputum. No hemo ptysis. Frequent wheezing. No [...] 3 severe COPD by GOLD classific ation ([facility]) - ICD9: 496, ICD10: J44.9 (primary diagnosis) [...] NEBULIZATION SOLN 2. Bronchiectasis without complication ( [facility]) - ICD9: 494.0, ICD10: J47.9 Continue Mucinex twice daily. 3. ILD (interstitial lung disease) ([facility]) - ICD9: 515, ICD10: J84.9 4. Chronic respiratory failure with hypo jensen ([facility]) - ICD9: 518.83, 799.02, ICD10: J96.11 See #1. I addressed the questions of the patient , and she expressed understanding and acceptance of my answers. Jacquelin Patel PA-C 08-07-2021 Note HNO ID: [id number] [facility] Author: Aminta Michaels RRT [place] Service: ? Author Type: Respiratory Therapist Type: [...] TIME: 1:49 PM 08-07-2021 Note HNO ID: [id number] [facility] Author: Aminta Michaels RRT [place] Service: ? Author Type: Respiratory Therapist Type: Progress Notes Filed: 08/07/2021 1:50 PM Note Text: PULM FUNCTION SMARTBLOCK: Provider: Jacquelin Patel PA-C Assisting Tech: Aminta Michaels RRT Spirometry: 1 DLCO: 1 6 MW: 1 System: [id number] 08-07-2021 History of Formatting of this note is different f rom the original. [facility] Present illness Narrative [facility], 08/07/2021: Name: Viviana Santana : 1955 The patient is here today by herself. HPI: Viviana Santana is a 66 yo fema le with pmh significant for RA, A Fib on Xarelto, hyperthyroidism, bronchiectasis and COPD/asthma on home O2. Former smoker, quit 2010. 15 pack years. The patient is here for follow up of MANAGER QUANTITATIVE D. Since the last Pulmonary Cli angela [...] be worse with seasonal allergies. Clear to [place] sputum. No hemoptysis. Frequent wheezing. No dyspnea [...] NEBULIZATION SOLN 2. Bronchiectasis without complication ( [facility]) - ICD9: 494.0, ICD10: J47.9 Continue Mucinex twice daily. 3. ILD (interstitial lung disease) ([facility]) - ICD9: 515, ICD10: J84.9 4. Chronic respiratory failu re with hypoxia ([facility]) - ICD9: 518.83, 799.02, ICD10: J96.11 See #1. I addressed the questions of the patient, and she expressed understanding and acceptance of my answers. Jacquelin Patel PA-C documented in this encounter 08-07-2021 Procedure note Associated Order(s): SIX MIN [place] WALK [facility] RESPIRATORY THERAPY SIX MINUTE WALK TEST OXIMETRY [...] migh t be different from the original. [facility] Present illness Narrative PULM FUNCTION SMARTBLOCK: Provider: Jacquelin Patel PA-C Assisting Tech: Aminta Michaels RRT Spirometry: 1 DLCO: 1 6 MW: 1 System: [id number] documented in this encounter 08-04-2021 Miscellaneous Formatting of this note is d ifferent from the original. [facility] Notes Patient notified of results, verbalizes understanding [...] with Rheumatology until early September. Patient uses [employer] for her pharma cy. Patient said the prednisone does help with her pain. Please advise documented in this encounter 06-23-2021 Note HNO ID: [id number] [facility] Author: Jeramie Begum MD [place] Service: ? Author Type: Physician Type: Progress Notes Filed: 06/23/2021 11:09 AM Note Text: [facility] [place] [facility] Department Date: June 23, [...] - COPD (chronic obstructive pulmonary di sease) ([facility]) Chronic bronchitis by history. - COVID-19 vaccine series completed 07-27-2020 2nd dose Pfize (more content not included)... 06-19-2021 Note HNO ID: [id number] [facility] Author: Alexa Becerra PA-C [place] Service: ? Author Type: Physician Air Analyst Type: Progress Notes Filed: 06/19/2021 9:07 PM [...] Abs Lymph 1.00 - 4.00 k/uL 1.45 Traill% % 3.8 Abs [place] <0.87 k/uL 0.58 Eosin% % 2.0 Abs [...] Multiple Sites With Positive Rheumatoid Factor (Hcc) Mcc Current Use of Immunosuppressi ve Drug Paroxysmal [...] tent not included)... 06-10-2021 Note HNO ID: [id number] [facility] Author: Asia Calderón MD Center Service: ? Author Type: Physician Type: Progress Notes Filed: 06/10/2021 11:33 AM Note Text: VIRTUAL VISIT PROGRESS NOTE This is a virtual visit using [employer] vi alesia visit. It required patient-provider interaction for the [facility] decision making as documented below. Viviana Santana is a 66 year old female see n for joint pain. Not on Arava 10 mg daily. More joint maylin n since not on pred. Diagnosed with RA 2017. She was admitted at [facility] - double pneumonia, RA. She was seeing [...] content not included)... 05-12-2021 Note HNO ID: [id number] [facility] Author: RT Daquan(R) Center [...] 2021 12:31 PM 04-25-2021 Note HNO ID: [id number] [facility] Author: Asia Calderón MD Center Service: ? Author Type: Physician Type: Progress Notes Filed: 04/25/2021 12:08 PM Note Text: VIRTUAL VISIT PROGRESS NOTE This is a virtual visit using [employer] vi alesia visit. It required patient-provider interaction for the [facility] decision making as documented below. Viviana Santana is a 66 year old female see n for joint pain. Diagnosed with RA 2017. She was admitted at [facility] - double pneumonia, RA. She was seeing [...] DM2, polyneuropathy. She follows with pulm in [place]. RA, chronic steroids, adrenal insuff Family h/o [...] - COPD (chronic obstructive pulmonary di sease) ([facility]) Chronic bronchitis by history. - COVID-19 vaccine [...] not included)... 04-21-2021 Note Patient Outreach ([facility]) [facility] Brewer VIVIANA SANTANA ([id number]) 1955 F Date Time Provider Department 04/21/21 DARA TRINH During your visit today, we recorded the following information about you: Dara Trinh RN 04/21/2021 11:32 AM Signed ACM INEZ RN Action/FYI: NO ACTION REQUIRED Patient identified by name and date of b ir. Patient Attributed To: E Payer: [employer] CT Reason for review or outreach: Suspect Condition Review Summary / Findings: Suspected conditions reviewed at [facility]. Action Taken: Data submitted to [facility] Contact made with patient: No, [...] Cmt: Suspected Condition Rev - [facility] Prescriptions as of 04/21/2021 - ondansetron (ZOFRAN) 4 mg tablet Take 1 tablet by mouth every 6 hours as needed for nausea/vomiting. - ferrous gluconate 324 mg (37.5 mg iron ) tablet Take 1 tablet by mouth twice daily with meals. - gabapentin (NEURONTIN) 400 mg capsule Take 1 capsule by mouth three times mohsen y for 180 days. - [employer] Portable oxygen concentrator 3l/min at [...] (HCC) J96.11 Chronic respiratory failure with hypoxia ([facility]) - leflunomide (ARAVA) 10 mg tablet Take [...] 019 Lung nodule, multiple [R91.8] 01/03/2017 Iatrogenic [place]'s disease (HCC) [E24. 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 .. 04-21-2021 Note HNO ID: [id number] [facility] Author: Dara Trinh RN [place] Service: ? Author Type: Registered Nurse Type: Progress Notes Filed: 04/21/2021 11:32 AM Note Text: ACM INEZ RN Action/FYI: NO ACTION REQUIRED Patient identified by name and date of b irth. Patient Attributed To: QAE Payer: [facility] Reason for review or outreach: Suspect Condition Review Summary / Findings: Suspected conditions reviewed at [facility]. Action Taken: Data submitted to [facility] Contact made with patient: No, Chart review only. Signature: Dara Trinh RN 04-01-2021 Note HNO ID: [id number] [facility] Author: Yovani Piedra, DO Carlos andrade Service: ? Author Type: Physician Type: Progress Notes Filed: 04/01/2021 3:37 PM Note Text: [facility] [place] San[facility]iv Spr[facility] Department of Cardiovascular Medicine SECTION [...] ory failure again. She did got [facility]: Preadmission evaluation: SOB and cough x 2 days. No fever. had URI. Which facility: [facility] Dates of visit: !-02/02/19 Primary Diagnosis/es: MSSA, [...] was printed off for her at t [facility] visit. She did not send in the paperwork because she's had significant life stressors over the past month. Her son is in rehab for a drug ad diction, and this has consumed the majority of her time. She was admitted A [facility] in April 2017 with sepsis and pneumonia [...] bronchiectasis. ?She follows with pulmonary at the [facility] now. ?There was a note that they [...] Added automatically from request for gabrielle lyon [id number] Status post cataract extraction and insertion of intraocular 12/16/2017 07/28/2018 lens of right eye Combined 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-related cataract of right eye 12/07/19 18 01/06/2018 Combined 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-related cataract of left eye 8 01/05/2018 Combined 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-related cataract, right eye 12/06/2017 12/15/2017 Overview: Added automatically from request for gabrielle lyon [id number] Combined 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-related cataract of both eyes 11/23/19 18 01/06/2018 Iatrogenic [place]'s disease 05/19/2017 05/19/2017 Hyperglycemia 12/25/2016 08/25/2018 documented as of this encounter (statuses as of 08/04/2021)[facility] 05-12-2019 History of Past illness Narrative Problem [...] Added automatically from request for gabrielle lyon [id number] Status post cataract extraction and insertion of intraocular 12/16/2017 07/28/2018 lens of right eye Combined 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-related cataract of right eye 12/07/19 18 01/06/2018 Combined 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-related cataract of left eye 8 01/05/2018 Combined 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-related cataract, right eye 12/06/2017 12/15/2017 Overview: Added automatically from request for gabrielle lyon [id number] Combined 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-related cataract of both eyes 11/23/19 18 01/06/2018 Iatrogenic [place]'s disease 05/19/2017 05/19/2017 Hyperglycemia 12/25/2016 08/25/2018 documented as of this encounter (statuses as of 08/07/2021)[facility] 05-12-2019 History of Past illness Narrative Problem [...] Added automatically from request for gabrielle lyon [id number] Status post cataract extraction and insertion of intraocular 12/16/2017 07/28/2018 lens of right eye Combined 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-related cataract of right eye 12/07/19 18 01/06/2018 Combined 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-related cataract of left eye 8 01/05/2018 Combined 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-related cataract, right eye 12/06/2017 12/15/2017 Overview: Added automatically from request for gabrielle macy [id number] Combined 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-related cataract of both eyes 11/23/19 18 01/06/2018 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 05/19/2017 Hyperglycemia 12/25/2016 08/25/2018 documented as of this encounter (statuses as of 08/07/2021)[facility] 05-12-2019 History of Past illness Narrative Problem [...] Added automatically from request for gabrielle sonali [id number] Status post cataract extraction and insertion of intraocular 12/16/2017 07/28/2018 lens of right eye Combined 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-related cataract of right eye 12/07/19 18 01/06/2018 Combined 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-related cataract of left eye 8 01/05/2018 Combined forms of age-related cataract, right eye 12/06/2017 12/15/2017 Overview: Added automatically from request for gabrielle macy [id number] Combined forms of age-related cataract of both eyes 11/23/19 18 01/06/2018 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 05/19/2017 Hyperglycemia 12/25/2016 08/25/2018 documented as of this encounter (statuses as of 08/07/2021)[facility] 05-12-2019 History of Past illness Narrative Problem [...] Added automatically from request for gabrielle sonali [id number] Status post cataract extraction and insertion of intraocular 12/16/2017 07/28/2018 lens of right eye Combined forms of age-related cataract of right eye 12/07/19 18 01/06/2018 Combined forms of age-related cataract of left eye 8 01/05/2018 Combined forms of age-related cataract, right eye 12/06/2017 12/15/2017 Overview: Added automatically from request for gabrielle sonali [id number] Combined forms of age-related cataract of both eyes 11/23/19 18 01/06/2018 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 05/19/2017 Hyperglycemia 12/25/2016 08/25/2018 documented as of this encounter (statuses as of 08/21/2021)[facility] 05-12-2019 History of Past illness Narrative Problem [...] Added automatically from request for gabrielle lyon [id number] Status post cataract extraction and insertion of intraocular 12/16/2017 07/28/2018 lens of right eye Combined forms of age-related cataract of right eye 12/07/19 18 01/06/2018 Combined forms of age-related cataract of left eye 8 01/05/2018 Combined forms of age-related cataract, right eye 12/06/2017 12/15/2017 Overview: Added automatically from request for gabrielle lyon [id number] Combined forms of age-related cataract of both eyes 11/23/19 18 01/06/2018 Iatrogenic [place]'s disease 05/19/2017 05/19/2017 Hyperglycemia 12/25/2016 08/25/2018 documented as of this encounter (statuses as of 09/08/2021)[facility] 05-12-2019 History of Past illness Narrative Problem [...] Added automatically from request for gabrielle lyon [id number] Status post cataract extraction and insertion of intraocular 12/16/2017 07/28/2018 lens of right eye Combined forms of age-related cataract of right eye 12/07/19 18 01/06/2018 Combined forms of age-related cataract of left eye 8 01/05/2018 Combined forms of age-related cataract, right eye 12/06/2017 12/15/2017 Overview: Added automatically from request for gabrielle lyon [id number] Combined forms of age-related cataract of both eyes 11/23/19 18 01/06/2018 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 05/19/2017 Hyperglycemia 12/25/2016 08/25/2018 documented as of this encounter (statuses as of 09/11/2021)[facility] 05-12-2019 History of Past illness Narrative Problem [...] Added automatically from request for gabrielle macy [id number] Status post cataract extraction and insertion of intraocular 12/16/2017 07/28/2018 lens of right eye Combined forms of age-related cataract of right eye 12/07/19 18 01/06/2018 Combined forms of age-related cataract of left eye 8 01/05/2018 Combined forms of age-related cataract, right eye 12/06/2017 12/15/2017 Overview: Added automatically from request for gabrielle sonali [id number] Combined forms of age-related cataract of both eyes 11/23/19 18 01/06/2018 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 05/19/2017 Hyperglycemia 12/25/2016 08/25/2018 documented as of this encounter (statuses as of 09/19/2021)[facility] 05-12-2019 History of Past illness Narrative Problem [...] Added automatically from request for gabrielle sonali [id number] Status post cataract extraction and insertion of intraocular 12/16/2017 07/28/2018 lens of right eye Combined forms of age-related cataract of right eye 12/07/19 18 01/06/2018 Combined forms of age-related cataract of left eye 8 01/05/2018 Combined forms of age-related cataract, right eye 12/06/2017 12/15/2017 Overview: Added automatically from request for gabrielle sonali [id number] Combined forms of age-related cataract of both eyes 11/23/19 18 01/06/2018 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 05/19/2017 Hyperglycemia 12/25/2016 08/25/2018 documented as of this encounter (statuses as of 09/19/2021)[facility] 05-12-2019 History of Past illness Narrative Problem [...] Added automatically from request for gabrielle sonali [id number] Status post cataract extraction and insertion of intraocular 12/16/2017 07/28/2018 lens of right eye Combined forms of age-related cataract of right eye 12/07/19 18 01/06/2018 Combined forms of age-related cataract of left eye 8 01/05/2018 Combined forms of age-related cataract, right eye 12/06/2017 12/15/2017 Overview: Added automatically from request for gabrielle lyon [id number] Combined 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 FT4 high 1.74 , FT3 high 1.83 Symptomatic afib with RVR. NM uptake: no focal areas of uptake. TSab negative. Microsomal Ab neg Hyperglycemia 12/25/2016 08/25/2018 documented as of this encounter (statuses as of 09/24/2021)[facility] 05-12-2019 History of Past illness Narrative Problem [...] Added automatically from request for gabrielle lyon [id number] Status post cataract extraction and insertion of intraocular 12/16/2017 07/28/2018 lens of right eye Combined forms of age-related cataract of right eye 12/07/19 18 01/06/2018 Combined forms of age-related cataract of left eye 8 01/05/2018 Combined forms of age-related cataract, right eye 12/06/2017 12/15/2017 Overview: Added automatically from request for gabrielle lyon [id number] Combined 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 FT4 high 1.74 , FT3 high 1.83 Symptomatic afib with RVR. NM uptake: no focal areas of uptake. TSab negative. Microsomal Ab neg Hyperglycemia 12/25/2016 08/25/2018 documented as of this encounter (statuses as of 10/13/2021)[facility] 05-12-2019 History of Past illness Narrative Problem [...] Added automatically from request for gabrielle sonali [id number] Status post cataract extraction and insertion of intraocular 12/16/2017 07/28/2018 lens of right eye Combined forms of age-related cataract of right eye 12/07/19 18 01/06/2018 Combined forms of age-related cataract of left eye 8 01/05/2018 Combined forms of age-related cataract, right eye 12/06/2017 12/15/2017 Overview: Added automatically from request for gabrielle sonali [id number] Combined 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 FT4 high 1.74 , FT3 high 1.83 Symptomatic afib with RVR. NM uptake: no focal areas of uptake. TSab negative. Microsomal Ab neg Hyperglycemia 12/25/2016 08/25/2018 documented as of this encounter (statuses as of 10/22/2021)[facility] 05-12-2019 History of Past illness Narrative Problem [...] Added automatically from request for gabrielle lyon [id number] Status post cataract extraction and insertion of intraocular 12/16/2017 07/28/2018 lens of right eye Combined forms of age-related cataract of right eye 12/07/19 18 01/06/2018 Combined forms of age-related cataract of left eye 8 01/05/2018 Combined forms of age-related cataract, right eye 12/06/2017 12/15/2017 Overview: Added automatically from request for gabrielle lyon [id number] Combined 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 FT4 high 1.74 , FT3 high 1.83 Symptomatic afib with RVR. NM uptake: no focal areas of uptake. TSab negative. Microsomal Ab neg Hyperglycemia 12/25/2016 08/25/2018 documented as of this encounter (statuses as of 10/23/2021)[facility] 05-12-2019 History of Past illness Narrative Problem [...] Added automatically from request for gabrielle lyon [id number] Status post cataract extraction and insertion of intraocular 12/16/2017 07/28/2018 lens of right eye Combined forms of age-related cataract of right eye 12/07/19 18 01/06/2018 Combined forms of age-related cataract of left eye 8 01/05/2018 Combined forms of age-related cataract, right eye 12/06/2017 12/15/2017 Overview: Added automatically from request for gabrielle lyon [id number] Combined 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 FT4 high 1.74 , FT3 high 1.83 Symptomatic afib with RVR. NM uptake: no focal areas of uptake. TSab negative. Microsomal Ab neg Hyperglycemia 12/25/2016 08/25/2018 documented as of this encounter (statuses as of 10/30/2021)[facility] 05-12-2019 History of Past illness Narrative Problem [...] Added automatically from request for gabrielle lyon [id number] Status post cataract extraction and insertion of intraocular 12/16/2017 07/28/2018 lens of right eye Combined forms of age-related cataract of right eye 12/07/19 18 01/06/2018 Combined forms of age-related cataract of left eye 8 01/05/2018 Combined forms of age-related cataract, right eye 12/06/2017 12/15/2017 Overview: Added automatically from request for gabrielle lyon [id number] Combined 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 FT4 high 1.74 , FT3 high 1.83 Symptomatic afib with RVR. NM uptake: no focal areas of uptake. TSab negative. Microsomal Ab neg Hyperglycemia 12/25/2016 08/25/2018 documented as of this encounter (statuses as of 11/04/2021)[facility] 05-12-2019 History of Past illness Narrative Problem [...] Added automatically from request for gabrielle lyon [id number] Status post cataract extraction and insertion of intraocular 12/16/2017 07/28/2018 lens of right eye Combined forms of age-related cataract of right eye 12/07/19 18 01/06/2018 Combined forms of age-related cataract of left eye 8 01/05/2018 Combined forms of age-related cataract, right eye 12/06/2017 12/15/2017 Overview: Added automatically from request for gabrielle lyon [id number] Combined 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 FT4 high 1.74 , FT3 high 1.83 Symptomatic afib with RVR. NM uptake: no focal areas of uptake. TSab negative. Microsomal Ab neg Hyperglycemia 12/25/2016 08/25/2018 documented as of this encounter (statuses as of 11/10/2021)[facility] 05-12-2019 History of Past illness Narrative Problem [...] Added automatically from request for gabrielle lyon [id number] Status post cataract extraction and insertion of intraocular 12/16/2017 07/28/2018 lens of right eye Combined forms of age-related cataract of right eye 12/07/19 18 01/06/2018 Combined forms of age-related cataract of left eye 8 01/05/2018 Combined forms of age-related cataract, right eye 12/06/2017 12/15/2017 Overview: Added automatically from request for gabrielle sonali [id number] Combined 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 FT4 high 1.74 , FT3 high 1.83 Symptomatic afib with RVR. NM uptake: no focal areas of uptake. TSab negative. Microsomal Ab neg Hyperglycemia 12/25/2016 08/25/2018 documented as of this encounter (statuses as of 11/17/2021)[facility] 05-12-2019 History of Past illness Narrative Problem [...] Added automatically from request for gabrielle sonali [id number] Status post cataract extraction and insertion of intraocular 12/16/2017 07/28/2018 lens of right eye Combined forms of age-related cataract of right eye 12/07/19 18 01/06/2018 Combined forms of age-related cataract of left eye 8 01/05/2018 Combined forms of age-related cataract, right eye 12/06/2017 12/15/2017 Overview:Formatting of this note might b e different from the original. Added automatically from request for gabrielle sonali [id number] Combined forms of age-related cataract of both eyes 11/23/19 18 01/06/2018 Iatrogenic [place]'s disease 05/19/2017 05/19/2017 Hyperthyroidism 05/10/2017 09/24/2021 Overview:Formatting of this note might b e different from the original. 05/10/17 [place] TSH 0.020. FT4 high 1.74 , FT3 high 1.83 Symptomatic afib with RVR. NM uptake: no focal areas of uptake. TSab negative. Microsomal Ab neg Hyperglycemia 12/25/2016 08/25/2018 documented as of this encounter (statuses as of 11/24/2021)[facility] 05-12-2019 History of Past illness Narrative Problem [...] Added automatically from request for gabrielle sonali [id number] Status post cataract extraction and insertion of intraocular 12/16/2017 07/28/2018 lens of right eye Combined forms of age-related cataract of right eye 12/07/19 18 01/06/2018 Combined forms of age-related cataract of left eye 8 01/05/2018 Combined forms of age-related cataract, right eye 12/06/2017 12/15/2017 Overview:Formatting of this note might b e different from the original. Added automatically from request for gabrielle sonali [id number] Combined forms of age-related cataract of both eyes 11/23/19 18 01/06/2018 Iatrogenic [place]'s disease 05/19/2017 05/19/2017 Hyperthyroidism 05/10/2017 09/24/2021 Overview:Formatting of this note might b e different from the original. 05/10/17 [place] TSH 0.020. FT4 high 1.74 , FT3 high 1.83 Symptomatic afib with RVR. NM uptake: no focal areas of uptake. TSab negative. Microsomal Ab neg Hyperglycemia 12/25/2016 08/25/2018 documented as of this encounter (statuses as of 11/27/2021)[facility] 05-12-2019 History of Past illness Narrative Problem [...] Added automatically from request for gabrielle lyon [id number] Status post cataract extraction and insertion of intraocular 12/16/2017 07/28/2018 lens of right eye Combined forms of age-related cataract of right eye 12/07/19 18 01/06/2018 Combined forms of age-related cataract of left eye 8 01/05/2018 Combined forms of age-related cataract, right eye 12/06/2017 12/15/2017 Overview:Formatting of this note might b e different from the original. Added automatically from request for gabrielle lyon [id number] Combined forms of age-related cataract of both eyes 11/23/19 18 01/06/2018 Iatrogenic [place]'s disease 05/19/2017 05/19/2017 Hyperthyroidism 05/10/2017 09/24/2021 Overview:Formatting of this note might b e different from the original. 05/10/17 [place] TSH 0.020. FT4 high 1.74 , FT3 high 1.83 Symptomatic afib with RVR. NM uptake: no focal areas of uptake. TSab negative. Microsomal Ab neg Hyperglycemia 12/25/2016 08/25/2018 documented as of this encounter (statuses as of 12/08/2021)[facility] 05-12-2019 History of Past illness Narrative Problem [...] Added automatically from request for gabrielle lyon [id number] Status post cataract extraction and insertion of intraocular 12/16/2017 07/28/2018 lens of right eye Combined forms of age-related cataract of right eye 12/07/19 18 01/06/2018 Combined forms of age-related cataract of left eye 8 01/05/2018 Combined forms of age-related cataract, right eye 12/06/2017 12/15/2017 Overview:Formatting of this note might b e different from the original. Added automatically from request for gabrielle lyon [id number] Combined forms of age-related cataract of both eyes 11/23/19 18 01/06/2018 Iatrogenic [place]'s disease 05/19/2017 05/19/2017 Hyperthyroidism 05/10/2017 09/24/2021 Overview:Formatting of this note might b e different from the original. 05/10/17 [place] TSH 0.020. FT4 high 1.74 , FT3 high 1.83 Symptomatic afib with RVR. NM uptake: no focal areas of uptake. TSab negative. Microsomal Ab neg Hyperglycemia 12/25/2016 08/25/2018 documented as of this encounter (statuses as of 12/08/2021)[facility] 05-12-2019 History of Past illness Narrative Problem [...] Added automatically from request for gabrielle lyon [id number] Status post cataract extraction and insertion of intraocular 12/16/2017 07/28/2018 lens of right eye Combined forms of age-related cataract of right eye 12/07/19 18 01/06/2018 Combined forms of age-related cataract of left eye 8 01/05/2018 Combined forms of age-related cataract, right eye 12/06/2017 12/15/2017 Overview:Formatting of this note might b e different from the original. Added automatically from request for gabrielle lyon [id number] Combined forms of age-related cataract of both eyes 11/23/19 18 01/06/2018 Iatrogenic [place]'s disease 05/19/2017 05/19/2017 Hyperthyroidism 05/10/2017 09/24/2021 Overview:Formatting of this note might b e different from the original. 05/10/17 [place] TSH 0.020. FT4 high 1.74 , FT3 high 1.83 Symptomatic afib with RVR. NM uptake: no focal areas of uptake. TSab negative. Microsomal Ab neg Hyperglycemia 12/25/2016 08/25/2018 documented as of this encounter (statuses as of 12/11/2021)[facility] 05-12-2019 History of Past illness Narrative Problem [...] Added automatically from request for gabrielle sonali [id number] Status post cataract extraction and insertion of intraocular 12/16/2017 07/28/2018 lens of right eye Combined forms of age-related cataract of right eye 12/07/19 18 01/06/2018 Combined forms of age-related cataract of left eye 8 01/05/2018 Combined forms of age-related cataract, right eye 12/06/2017 12/15/2017 Overview:Formatting of this note might b e different from the original. Added automatically from request for gabrielle sonali [id number] Combined forms of age-related cataract of both eyes 11/23/19 18 01/06/2018 Iatrogenic [place]'s disease 05/19/2017 05/19/2017 Hyperthyroidism 05/10/2017 09/24/2021 Overview:Formatting of this note might b e different from the original. 05/10/17 [place] TSH 0.020. FT4 high 1.74 , FT3 high 1.83 Symptomatic afib with RVR. NM uptake: no focal areas of uptake. TSab negative. Microsomal Ab neg Hyperglycemia 12/25/2016 08/25/2018 documented as of this encounter (statuses as of 12/23/2021)[facility] 05-12-2019 History of Past illness Narrative Problem [...] Added automatically from request for gabrielle sonali [id number] Status post cataract extraction and insertion of intraocular 12/16/2017 07/28/2018 lens of right eye Combined forms of age-related cataract of right eye 12/07/19 18 01/06/2018 Combined forms of age-related cataract of left eye 8 01/05/2018 Combined forms of age-related cataract, right eye 12/06/2017 12/15/2017 Overview:Formatting of this note might b e different from the original. Added automatically from request for gabrielle macy [id number] Combined forms of age-related cataract of both [...] as of this encounter (statuses as of 01/01/2022)[facility] 05-12-2019 History of Past illness Narrative Problem [...] Added automatically from request for gabrielle sonali [id number] Status post cataract extraction and insertion of intraocular 12/16/2017 07/28/2018 lens of right eye Combined forms of age-related cataract of right eye 12/07/19 18 01/06/2018 Combined forms of age-related cataract of left eye 8 01/05/2018 Combined forms of age-related cataract, right eye 12/06/2017 12/15/2017 Overview:Formatting of this note might b e different from the original. Added automatically from request for gabrielle sonali [id number] Combined forms of age-related cataract of both [...] as of this encounter (statuses as of 01/12/2022)[facility] 05-12-2019 History of Past illness Narrative Problem [...] Added automatically from request for gabrielle lyon [id number] Status post cataract extraction and insertion of intraocular 12/16/2017 07/28/2018 lens of right eye Combined forms of age-related cataract of right eye 12/07/19 18 01/06/2018 Combined forms of age-related cataract of left eye 8 01/05/2018 Combined forms of age-related cataract, right eye 12/06/2017 12/15/2017 Overview:Formatting of this note might b e different from the original. Added automatically from request for gabrielle lyon [id number] Combined forms of age-related cataract of both [...] as of this encounter (statuses as of 01/12/2022)[facility] 05-12-2019 History of Past illness Narrative Problem [...] Added automatically from request for gabrielle lyon [id number] Status post cataract extraction and insertion of intraocular 12/16/2017 07/28/2018 lens of right eye Combined forms of age-related cataract of right eye 12/07/19 18 01/06/2018 Combined forms of age-related cataract of left eye 8 01/05/2018 Combined forms of age-related cataract, right eye 12/06/2017 12/15/2017 Overview:Formatting of this note might b e different from the original. Added automatically from request for gabrielle lyon [id number] Combined forms of age-related cataract of both [...] as of this encounter (statuses as of 01/30/2022)[facility] 05-12-2019 History of Past illness Narrative Problem [...] Added automatically from request for gabrielle lyon [id number] Status post cataract extraction and insertion of intraocular 12/16/2017 07/28/2018 lens of right eye Combined forms of age-related cataract of right eye 12/07/19 18 01/06/2018 Combined forms of age-related cataract of left eye 8 01/05/2018 Combined forms of age-related cataract, right eye 12/06/2017 12/15/2017 Overview:Formatting of this note might b e different from the original. Added automatically from request for gabrielle lyon [id number] Combined forms of age-related cataract of both [...] as of this encounter (statuses as of 02/07/2022)[facility] 05-12-2019 History of Past illness Narrative Problem [...] Added automatically from request for gabrielle lyon [id number] Status post cataract extraction and insertion of intraocular 12/16/2017 07/28/2018 lens of right eye Combined forms of age-related cataract of right eye 12/07/19 18 01/06/2018 Combined forms of age-related cataract of left eye 8 01/05/2018 Combined forms of age-related cataract, right eye 12/06/2017 12/15/2017 Overview:Formatting of this note might b e different from the original. Added automatically from request for gabrielle lyon [id number] Combined forms of age-related cataract of both eyes 11/23/19 18 01/06/2018 Iatrogenic [place]'s disease 05/19/2017 05/19/2017 Hyperthyroidism 05/10/2017 09/24/2021 Overview:Formatting of this note might b e different from the original. 05/10/17 [place] TSH 0.020. FT4 high 1.74 , FT3 high 1.83 Symptomatic afib with RVR. NM uptake: no focal areas of uptake. TSab negative. Microsomal Ab neg Hyperglycemia 12/25/2016 08/25/2018 documented as of this encounter (statuses as of 02/09/2022)[facility] 05-12-2019 History of Past illness Narrative Problem [...] Added automatically from request for gabrielle sonali [id number] Status post cataract extraction and insertion of intraocular 12/16/2017 07/28/2018 lens of right eye Combined forms of age-related cataract of right eye 12/07/19 18 01/06/2018 Combined forms of age-related cataract of left eye 8 01/05/2018 Combined forms of age-related cataract, right eye 12/06/2017 12/15/2017 Overview:Formatting of this note might b e different from the original. Added automatically from request for gabrielle sonali [id number] Combined forms of age-related cataract of both [...] as of this encounter (statuses as of 02/10/2022)[facility] 05-12-2019 History of Past illness Narrative Problem [...] Added automatically from request for gabrielle sonali [id number] Status post cataract extraction and insertion of intraocular 12/16/2017 07/28/2018 lens of right eye Combined forms of age-related cataract of right eye 12/07/19 18 01/06/2018 Combined forms of age-related cataract of left eye 8 01/05/2018 Combined forms of age-related cataract, right eye 12/06/2017 12/15/2017 Overview:Formatting of this note might b e different from the original. Added automatically from request for gabrielle lyon [id number] Combined forms of age-related cataract of both eyes 11/23/19 18 01/06/2018 Iatrogenic [place]'s disease 05/19/2017 05/19/2017 Hyperthyroidism 05/10/2017 09/24/2021 Overview:Formatting of this note might b e different from the original. 05/10/17 Tat[place]na TSH 0.020. FT4 high 1.74 , FT3 high 1.83 Symptomatic afib with RVR. NM uptake: no focal areas of uptake. TSab negative. Microsomal Ab neg Hyperglycemia 12/25/2016 08/25/2018 documented as of this encounter (statuses as of 02/16/2022)[facility] 05-12-2019 History of Past illness Narrative Problem [...] Added automatically from request for gabrielle macy [id number] Status post cataract extraction and insertion of intraocular 12/16/2017 07/28/2018 lens of right eye Combined forms of age-related cataract of right eye 12/07/19 18 01/06/2018 Combined forms of age-related cataract of left eye 8 01/05/2018 Combined forms of age-related cataract, right eye 12/06/2017 12/15/2017 Overview:Formatting of this note might b e different from the original. Added automatically from request for gabrielle lyon [id number] Combined forms of age-related cataract of both [...] as of this encounter (statuses as of 03/05/2022)[facility] 05-12-2019 History of Past illness Narrative Problem [...] Added automatically from request for gabrielle lyon [id number] Status post cataract extraction and insertion of intraocular 12/16/2017 07/28/2018 lens of right eye Combined forms of age-related cataract of right eye 12/07/19 18 01/06/2018 Combined forms of age-related cataract of left eye 8 01/05/2018 Combined forms of age-related cataract, right eye 12/06/2017 12/15/2017 Overview:Formatting of this note might b e different from the original. Added automatically from request for gabrielle sonali [id number] Combined forms of age-related cataract of both [...] as of this encounter (statuses as of 03/06/2022)[facility] 05-12-2019 History of Past illness Narrative Problem [...] Added automatically from request for gabrielle lyon [id number] Status post cataract extraction and insertion of intraocular 12/16/2017 07/28/2018 lens of right eye Combined forms of age-related cataract of right eye 12/07/19 18 01/06/2018 Combined forms of age-related cataract of left eye 8 01/05/2018 Combined forms of age-related cataract, right eye 12/06/2017 12/15/2017 Overview:Formatting of this note might b e different from the original. Added automatically from request for gabrielle lyon [id number] Combined forms of age-related cataract of both [...] as of this encounter (statuses as of 03/09/2022)[facility] 05-12-2019 History of Past illness Narrative Problem [...] Added automatically from request for gabrielle lyon [id number] Status post cataract extraction and insertion of intraocular 12/16/2017 07/28/2018 lens of right eye Combined forms of age-related cataract of right eye 12/07/19 18 01/06/2018 Combined forms of age-related cataract of left eye 8 01/05/2018 Combined forms of age-related cataract, right eye 12/06/2017 12/15/2017 Overview:Formatting of this note might b e different from the original. Added automatically from request for gabrielle lyon [id number] Combined forms of age-related cataract of both eyes 11/23/19 18 01/06/2018 Iatrogenic [place]'s disease 05/19/2017 05/19/2017 Hyperthyroidism 05/10/2017 09/24/2021 Overview:Formatting of this note might b e different from the original. 05/10/17 Tat[place] TSH 0.020. FT4 high 1.74 , FT3 high 1.83 Symptomatic afib with RVR. NM uptake: no focal areas of uptake. TSab negative. Microsomal Ab neg Hyperglycemia 12/25/2016 08/25/2018 documented as of this encounter (statuses as of 03/16/2022)[facility] 05-12-2019 History of Past illness Narrative Problem [...] Added automatically from request for gabrielle lyon [id number] Status post cataract extraction and insertion of intraocular 12/16/2017 07/28/2018 lens of right eye Combined forms of age-related cataract of right eye 12/07/19 18 01/06/2018 Combined forms of age-related cataract of left eye 8 01/05/2018 Combined forms of age-related cataract, right eye 12/06/2017 12/15/2017 Overview:Formatting of this note might b e different from the original. Added automatically from request for gabrielle lyon [id number] Combined forms of age-related cataract of both eyes 11/23/19 18 01/06/2018 Iatrogenic [place]'s disease 05/19/2017 05/19/2017 Hyperthyroidism 05/10/2017 09/24/2021 Overview:Formatting of this note might b e different from the original. 05/10/17 Tat[place] TSH 0.020. FT4 high 1.74 , FT3 high 1.83 Symptomatic afib with RVR. NM uptake: no focal areas of uptake. TSab negative. Microsomal Ab neg Hyperglycemia 12/25/2016 08/25/2018 documented as of this encounter (statuses as of 03/30/2022)[facility] 05-12-2019 History of Past illness Narrative Problem [...] Added automatically from request for gabrielle lyon [id number] Status post cataract extraction and insertion of intraocular 12/16/2017 07/28/2018 lens of right eye Combined forms of age-related cataract of right eye 12/07/19 18 01/06/2018 Combined forms of age-related cataract of left eye 8 01/05/2018 Combined forms of age-related cataract, right eye 12/06/2017 12/15/2017 Overview:Formatting of this note might b e different from the original. Added automatically from request for gabrielle lyon [id number] Combined forms of age-related cataract of both [...] as of this encounter (statuses as of 04/03/2022)[facility] Evaluation note Diagnosis Stage 4 very severe COPD by GOLD classif ication (HCC) ILD (interstitial lung disease) (HCC) Postinflammatory pulmonary fibrosis documented in this encounterCleSt[facility] Diagnosis Stage 4 very severe COPD by GOLD classif ication (HCC) ILD (interstitial lung disease) (HCC) Postinflammatory pulmonary fibrosis documented in this encounterCle[facility] ClinicEvaluation [facility] Diagnosis Stage 3 severe COPD by GOLD classificati on (HCC)- Primary Bronchiectasis without complication (HCC ) Bronchiectasis without acute exacerbatio n ILD (interstitial lung disease) ([facility]) Postinflammatory pulmonary fibrosis Chronic respiratory failure with hypoxia (HCC) Chronic respiratory failure documented in this encounterCleSt. [facility] CenterEvaluation note Diagnosis Paroxysmal atrial fibrillation (HCC) Atrial fibrillation documented in this encounterCleSt. 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 Pre-diabetes Other abnormal glucose CESAR (obstructive sleep apnea) Obstructive sleep apnea (adult) (pediatr ic) Hyperthyroidism Thyrotoxicosis without mention of goiter or other cause, without mention of thyrotoxic crisis or storm documented in this encounterClecher[facility] ClinicEvaluation note Diagnosis Rheumatoid arthritis involving multiple sites with positive rheumatoid factor (HCC)- Primary halfway current use of systemic steroi ds Encounter for long-term (current) use of steroids Current chronic use of systemic steroids Pain in joint, multiple sites High risk medication use Encounter for long-term (current) use of other medications documented in this encounterClecherrington [facility] ClinicEvaluation note Diagnosis Chronic pain syndrome- Primary Generalized OA Generalized osteoarthrosis, unspecified site Myofascial pain Mylagia and myositis, unspecified documented in this encounterClecher[facility] ClinicEvaluation note Diagnosis Rheumatoid arthritis involving multiple sites with positive rheumatoid factor (HCC)- Primary documented in this encounterClecher[facility] ClinicEvaluation note Diagnosis Encounter for screening mammogram for br east cancer documented in this encounterClecher[facility] ClinicEvaluation note Diagnosis Myofascial pain- Primary Mylagia and myositis, unspecified documented in [facility] encounterK[facility] ClinicEvaluation [facility] Diagnosis Rheumatoid arthritis involving multiple sites with positive rheumatoid factor (HCC) documented in this encounterKeeseville ClinicEvaluation note Diagnosis Rheumatoid arthritis involving multiple sites with positive rheumatoid factor (HCC)- Primary Current chronic use of systemic steroids High risk medication use Encounter for long-term (current) use of other medications Vitamin D deficiency Unspecified vitamin D deficiency documented in this encounterKeeseville ClinicEvaluation note Diagnosis 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 Encounter for long-term (current) use of steroids Osteoporosis, unspecified osteoporosis t ype, unspecified pathological fracture presence Rheumatoid arthritis involving multiple sites with positive rheumatoid factor (HCC) documented in this encounterK[facility] ClinicEvaluation note Diagnosis Rheumatoid arthritis involving multiple sites with positive rheumatoid factor (HCC)- Primary documented in this encounterClecher[facility] ClinicEvaluation note Diagnosis Chronic pain syndrome- Primary Generalized OA Generalized osteoarthrosis, unspecified site Myofascial pain Mylagia and myositis, unspecified documented in this encounterK[facility] ClinicEvaluation note Diagnosis Rheumatoid arthritis involving multiple sites with positive rheumatoid factor (HCC) Vitamin D deficiency Unspecified vitamin D deficiency Other osteoporosis without current patho logical fracture documented in this encounterClecher[facility] ClinicEvaluation note Diagnosis Interstitial pulmonary disease (HCC)- 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 Bronchiectasis without complication (HCC ) Bronchiectasis without acute exacerbatio n 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) Chronic airway obstruction, not elsewher e classified Chronic respiratory failure with hypoxia (HCC) Chronic respiratory failure documented in this encounterKees[facility] ClinicEvaluation note Diagnosis Other osteoporosis without current patho logical fracture- Primary Rheumatoid arthritis involving multiple sites with positive rheumatoid factor (HCC) documented in this encounterClecherrington [facility] ClinicEvaluation note Diagnosis Other osteoporosis without current patho logical fracture- Primary Rheumatoid arthritis involving multiple sites with positive rheumatoid factor (HCC) documented in this encounterUpper [facility] Medical CenterReason for referral (narrative) Diagnostic Procedure Only (Routine) - Pending Review Specialty Diagnoses / Procedures Referred By Contact Refer red To Contact [facility] Diagnoses Encounter for screening mammogram for breast cancer Alexa Becerra PA-C [facility] Procedures ERNIE SCREENING SCREENING MAMMOGRAPHY BI 2-VIEW BREAST INC CAD [address] [place] [address] [place] [address] Referral ID Status Reason Start Expiration Visits Visits Date Date Requested Authorized [id number] Pending Auto-Generat 11/12/2021 12/12/2022 1 1 Review ed Referral [facility] Summary Purpose Family History No Family History Records FoundNo Family History Records FoundNo Family History Records FoundNo Family History Records Found Advance Directives Documents on File Type Date Recorded Patient Manager Of Operations Explanati on Advance Directive(s) 10/09/2019 7:44 AM Advance Directive(s) 09/20/2019 8:57 AM Advance Directive(s) 01/05/2018 9:14 AM Advance Directive(s) 12/15/2017 7:52 AM Documents on File Type Date Recorded Patient Manager Of Operations Explanati on Advance Directive(s) 10/09/2019 7:44 [...] MD Procedures CONSULT TO PAIN MGT [address] [place] [address] Referral ID Status Reason Start Expiration Visits Visits Date Date Requested Authorized [id number] Ref Not PCP Requested 09/18/2021 12/17/2021 3 3 Required Referral Specialty Diagnoses / Procedures Referred By Contact Refer red To Contact CT IMAGING Diagnoses Interstitial pulmonary disease (HCC) Junior Mathew MD Ct Imaging Procedures CT CHEST WO IVCON DIAGNOSTIC COMPUTED TOMOGRAPHY THORAX W/O CNTRST [address] [place] [address] Referral ID Status Reason Start Expiration Visits Visits Date Date Requested Authorized [id number] Authorized Auto-Generat 03/08/2023 1 1 ed Referral [...] the event of a Fluress shortage, administer [place]-Fluor 1 drop into both eyes as directed [...] DATE CREATED AUTHOR AUTHOR'S ORGANIZ ATION 10/12/[address] [facility] DATE CREATED AUTHOR AUTHOR'S ORGANIZATIO N 11/28/2020 [facility] [place] [facility] ([place]) DATE CREATED AUTHOR AUTHOR'S ORGANIZATIO N 03/17/2022 [facility] DATE CREATED AUTHOR AUTHOR'S ORGANIZATIO N 03/31/2022 [facility] Source Comments (unrecognized section an d content) [...] prosecute any alcohol or drug abuse patient. [facility] CenterIn the event this information is protected by t Federal Confidentiality of Alcohol and Drug Abuse Patient Records regulations: This information has been disclosed to you from records protected by Federal confid entiality rules ( The Federal rules restrict any use of th e information to criminally investigate or prosecute any alcohol or drug abuse valeria ent. [facility] CenterIn the event this information is protected by the Federal Confidentiality of Alcohol and Drug Abuse Patient Records regulations: This inform ation has been disclosed to you from records protected by Federal confidentiality rul es ( The Federal rules restrict any use of the in formation to criminally investigate or prosecute any alcohol or drug abuse valeria ent. [facility] CenterIn the event this information is protected by the Federal Confidentiality of Alcohol and Drug Abuse Patient Records regulations: This inform ation has been disclosed to you from records protected by Federal confidentiality rul es ( The Federal rules restrict any use of the in formation to criminally investigate or prosecute any alcohol or drug abuse valeria ent. [facility] CenterIn the event this information is protected by the Federal Confidentiality of Alcohol and Drug Abuse Patient Records regulations: This inform ation has been disclosed to you from records protected by Federal confidentiality rul es ( The Federal rules restrict any use of the in formation to criminally investigate or prosecute any alcohol or drug abuse valeria ent. [facility] CenterIn the event this information is protected by the Federal Confidentiality of Alcohol and Drug Abuse Patient Records regulations: This inform ation has been disclosed to you from records protected by Federal confidentiality rul es ( The Federal rules restrict any use of the in formation to criminally investigate or prosecute any alcohol or drug abuse valeria ent. [facility] CenterIn the event this information is protected by the Federal Confidentiality of Alcohol and Drug Abuse Patient Records regulations: This inform ation has been disclosed to you from records protected by Federal confidentiality rul es ( The Federal rules restrict any use of the in formation to criminally investigate or prosecute any alcohol or drug abuse valeria ent. [facility] CenterIn the event this information is protected by the Federal Confidentiality of Alcohol and Drug Abuse Patient Records regulations: This inform ation has been disclosed to you from records protected by Federal confidentiality rul es ( The Federal rules restrict any use of the in formation to criminally investigate or prosecute any alcohol or drug abuse valeria ent. [facility] CenterIn the event this information is protected by the Federal Confidentiality of Alcohol and Drug Abuse Patient Records regulations: This inform ation has been disclosed to you from records protected by Federal confidentiality rul es ( The Federal rules restrict any use of the in formation to criminally investigate or prosecute any alcohol or drug abuse valeria ent. [facility] CenterIn the event this information is protected by the Federal Confidentiality of Alcohol and Drug Abuse Patient Records regulations: This inform ation has been disclosed to you from records protected by Federal confidentiality rul es ( The Federal rules restrict any use of the in formation to criminally investigate or prosecute any alcohol or drug abuse valeria ent. [facility] CenterIn the event this information is protected by the Federal Confidentiality of Alcohol and Drug Abuse Patient Records regulations: This inform ation has been disclosed to you from records protected by Federal confidentiality rul es ( The Federal rules restrict any use of the in formation to criminally investigate or prosecute any alcohol or drug abuse valeria ent. [facility] CenterIn the event this information is protected by the Federal Confidentiality of Alcohol and Drug Abuse Patient Records regulations: This inform ation has been disclosed to you from records protected by Federal confidentiality rul es ( The Federal rules restrict any use of the in formation to criminally investigate or prosecute any alcohol or drug abuse valeria ent. [facility] CenterIn the event this information is protected by the Federal Confidentiality of Alcohol and Drug Abuse Patient Records regulations: This inform ation has been disclosed to you from records protected by Federal confidentiality rul es ( The Federal rules restrict any use of the in formation to criminally investigate or prosecute any alcohol or drug abuse valeria ent. [facility] CenterIn the event this information is protected by the Federal Confidentiality of Alcohol and Drug Abuse Patient Records regulations: This inform ation has been disclosed to you from records protected by Federal confidentiality rul es ( The Federal rules restrict any use of the in formation to criminally investigate or prosecute any alcohol or drug abuse valeria ent. [facility] CenterIn the event this information is protected by the Federal Confidentiality of Alcohol and Drug Abuse Patient Records regulations: This inform ation has been disclosed to you from records protected by Federal confidentiality rul es ( The Federal rules restrict any use of the in formation to criminally investigate or prosecute any alcohol or drug abuse valeria ent. [facility] CenterIn the event this information is protected by the Federal Confidentiality of Alcohol and Drug Abuse Patient Records regulations: This inform ation has been disclosed to you from records protected by Federal confidentiality rul es ( The Federal rules restrict any use of the in formation to criminally investigate or prosecute any alcohol or drug abuse valeria ent. [facility] CenterIn the event this information is protected by the Federal Confidentiality of Alcohol and Drug Abuse Patient Records regulations: This inform ation has been disclosed to you from records protected by Federal confidentiality rul es ( The Federal rules restrict any use of the in formation to criminally investigate or prosecute any alcohol or drug abuse valeria ent. [facility] CenterIn the event this information is protected by the Federal Confidentiality of Alcohol and Drug Abuse Patient Records regulations: This inform ation has been disclosed to you from records protected by Federal confidentiality rul es ( The Federal rules restrict any use of the in formation to criminally investigate or prosecute any alcohol or drug abuse valeria ent. [facility] CenterIn the event this information is protected by the Federal Confidentiality of Alcohol and Drug Abuse Patient Records regulations: This inform ation has been disclosed to you from records protected by Federal confidentiality rul es ( The Federal rules restrict any use of the in formation to criminally investigate or prosecute any alcohol or drug abuse valeria ent. [facility] CenterIn the event this information is protected by the Federal Confidentiality of Alcohol and Drug Abuse Patient Records regulations: This inform ation has been disclosed to you from records protected by Federal confidentiality rul es ( The Federal rules restrict any use of the in formation to criminally investigate or prosecute any alcohol or drug abuse valeria ent. [facility] CenterIn the event this information is protected by the Federal Confidentiality of Alcohol and Drug Abuse Patient Records regulations: This inform ation has been disclosed to you from records protected by Federal confidentiality rul es ( The Federal rules restrict any use of the in formation to criminally investigate or prosecute any alcohol or drug abuse valeria ent. [facility] CenterIn the event this information is protected by the Federal Confidentiality of Alcohol and Drug Abuse Patient Records regulations: This inform ation has been disclosed to you from records protected by Federal confidentiality rul es ( The Federal rules restrict any use of the in formation to criminally investigate or prosecute any alcohol or drug abuse valeria ent. [facility] CenterIn the event this information is protected by the Federal Confidentiality of Alcohol and Drug Abuse Patient Records regulations: This inform ation has been disclosed to you from records protected by Federal confidentiality rul es ( The Federal rules restrict any use of the in formation to criminally investigate or prosecute any alcohol or drug abuse valeria ent. [facility] CenterIn the event this information is protected by the Federal Confidentiality of Alcohol and Drug Abuse Patient Records regulations: This inform ation has been disclosed to you from records protected by Federal confidentiality rul es ( The Federal rules restrict any use of the in formation to criminally investigate or prosecute any alcohol or drug abuse valeria ent. [facility] CenterIn the event this information is protected by the Federal Confidentiality of Alcohol and Drug Abuse Patient Records regulations: This inform ation has been disclosed to you from records protected by Federal confidentiality rul es ( The Federal rules restrict any use of the in formation to criminally investigate or prosecute any alcohol or drug abuse valeria ent. [facility] CenterIn the event this information is protected by the Federal Confidentiality of Alcohol and Drug Abuse Patient Records regulations: This inform ation has been disclosed to you from records protected by Federal confidentiality rul es ( The Federal rules restrict any use of the in formation to criminally investigate or prosecute any alcohol or drug abuse valeria ent. [facility] CenterIn the event this information is protected by the Federal Confidentiality of Alcohol and Drug Abuse Patient Records regulations: This inform ation has been disclosed to you from records protected by Federal confidentiality rul es ( The Federal rules restrict any use of the in formation to criminally investigate or prosecute any alcohol or drug abuse valeria ent. [facility] CenterIn the event this information is protected by the Federal Confidentiality of Alcohol and Drug Abuse Patient Records regulations: This inform ation has been disclosed to you from records protected by Federal confidentiality rul es ( The Federal rules restrict any use of the in formation to criminally investigate or prosecute any alcohol or drug abuse valeria ent. [facility] CenterIn the event this information is protected by the Federal Confidentiality of Alcohol and Drug Abuse Patient Records regulations: This inform ation has been disclosed to you from records protected by Federal confidentiality rul es ( The Federal rules restrict any use of the in formation to criminally investigate or prosecute any alcohol or drug abuse valeria ent. [facility] the event this information is protected by the Federal Confidentiality of Alcohol and Drug Abuse Patient Records regulations: This inform ation has been disclosed to you from records protected by Federal confidentiality rul es ( The Federal rules restrict any use of the in formation to criminally investigate or prosecute any alcohol or drug abuse valeria ent. [facility] the event this information is protected by the Federal Confidentiality of Alcohol and Drug Abuse Patient Records regulations: This inform ation has been disclosed to you from records protected by Federal confidentiality rul es ( The Federal rules restrict any use of the in formation to criminally investigate or prosecute any alcohol or drug abuse valeria ent. [facility] the event this information is protected by the Federal Confidentiality of Alcohol and Drug Abuse Patient Records regulations: This inform ation has been disclosed to you from records protected by Federal confidentiality rul es ( The Federal rules restrict any use of the in formation to criminally investigate or prosecute any alcohol or drug abuse valeria ent. [facility] the event this information is protected by the Federal Confidentiality of Alcohol and Drug Abuse Patient Records regulations: This inform ation has been disclosed to you from records protected by Federal confidentiality rul es ( The Federal rules restrict any use of the in formation to criminally investigate or prosecute any alcohol or drug abuse valeria ent. [facility] the event this information is protected by the Federal Confidentiality of Alcohol and Drug Abuse Patient Records regulations: This inform ation has been disclosed to you from records protected by Federal confidentiality rul es ( The Federal rules restrict any use of the in formation to criminally investigate or prosecute any alcohol or drug abuse valeria ent. [facility] the event this information is protected by the Federal Confidentiality of Alcohol and Drug Abuse Patient Records regulations: This inform ation has been disclosed to you from records protected by Federal confidentiality rul es ( The Federal rules restrict any use of the in formation to criminally investigate or prosecute any alcohol or drug abuse valeria ent. [facility] the event this information is protected by the Federal Confidentiality of Alcohol and Drug Abuse Patient Records regulations: This inform ation has been disclosed to you from records protected by Federal confidentiality rul es ( The Federal rules restrict any use of the in formation to criminally investigate or prosecute any alcohol or drug abuse valeria ent. [facility] the event this information is protected by the Federal Confidentiality of Alcohol and Drug Abuse Patient Records regulations: This inform ation has been disclosed to you from records protected by Federal confidentiality rul es ( The Federal rules restrict any use of the in formation to criminally investigate or prosecute any alcohol or drug abuse valeria ent. [facility] the event this information is protected by the Federal Confidentiality of Alcohol and Drug Abuse Patient Records regulations: This inform ation has been disclosed to you from records protected by Federal confidentiality rul es ( The Federal rules restrict any use of the in formation to criminally investigate or prosecute any alcohol or drug abuse valeria ent. [facility] the event this information is protected by the Federal Confidentiality of Alcohol and Drug Abuse Patient Records regulations: This inform ation has been disclosed to you from records protected by Federal confidentiality rul es ( The Federal rules restrict any use of the in formation to criminally investigate or prosecute any alcohol or drug abuse valeria ent. [facility] Reason for Visit (unrecognized section a nd content) Reason Comments Medication Request Reason Comments Spirometry Specialty Diagnoses / Procedures Referred By Referred To Contact Contact [facility] Diagnoses Stage 4 very severe COPD by GOLD classification ([facility]) ILD (interstitial lung disease) ([facility]) Jacquelin Patel Respiratory Inst itute Procedures SPIROMETRY BASELINE ONLY SPIROMETRY WO BRONCHODILATOR M, PA-C [address] [place] [address] Referral ID Status Reason Start Date Expiration Date Visits Requ ested Visits Authorized [id number] Closed 08/07/2021 04/18/2022 1 1 Specialty Diagnoses / Procedures Referred By Referred To Contact [facility] Diagnoses Stage 4 very severe COPD by GOLD classification ([facility]) ILD (interstitial lung disease) ([facility]) Jacquelin Patel Respiratory Inst itute Procedures LUNG DIFFUSION CAPACITY ([facility]) DIFFUSING CAPACITY M, PA-C [address] [place] [address] Referral ID Status Reason Start Date Expiration Date Visits Requ ested Visits Authorized [id number] Closed 08/07/2021 04/18/2022 1 1 Specialty Diagnoses / Procedures Referred By Referred To Contact [facility] Diagnoses Stage 4 very severe COPD by GOLD classification ([facility]) ILD (interstitial lung disease) ([facility]) Jacquelin Patel Respiratory Inst itute Procedures SIX MINUTE WALK CARDIOPULMONARY EXERCISE STRESS M, PA-C [address] [place] [address] [address] [place] [address] Referral ID Status Reason Start Date Expiration Date Visits V isits Requested Authorized [id number] Authorized 08/07/2021 04/18/2022 2 2 Reason Comments Established Patient COPD Specialty Diagnoses / Procedures Referred By Contact Refer red To Contact Pulmonary and Critical Diagnoses 6 Month F/U Jacquelin Patel, Jacquelin Patel, Care Medicine / Procedures RI EST COPD PA-C PA-C PULMONARY MEDICINE [address] [place] [address] [place] [address] Fax: Referral ID Status Reason Start Date Expiration Date Visits V isits Requested Authorized [id number] Closed Financial 08/07/2021 04/18/2022 1 1 Clearance Required - OON Payor Patient Cleared INN/SMCP Payor Auth Obtained Reason Onset Date Comments Refill Request 08/21/2021 Reason Comments Cardiology Follow Up no issues today Specialty Diagnoses / Referred By Contact Referred To Contact Procedures Cardiology / CARD Diagnoses 6 month follow up Yovani Piedra Michael [facility]INA Procedures EST PATIENT L, DO L, DO [address] [place] [address] [place] [address] Fax: Referral ID Status Reason Start Date Expiration Date Visits Requ ested Visits Authorized [id number] Closed 09/08/2021 04/18/2022 1 1 Reason Onset Date Comments Refill Request 09/11/2021 Reason Comments Joint Pain Specialty Diagnoses / Procedures Referred By Contact Refer red To Contact Internal Medicine / Diagnoses JT Pain/3 months with me in office st labs prior Asia Calderón MD Sharma, Niharika, RHEUMATOLOGY Procedures EST PATIENT [address] Rafael BELTRÁN MD [address] [place] [address] [address] [place] [address] Phone: Fax: Referral ID Status Reason Start Date Expiration Date Visits Requ ested Visits Authorized [id number] Closed 09/18/2021 04/18/2022 1 1 Reason Comments Non-insulin Dependent Diabetes Mellitus blood sugar ch ecked by Dr. Becerra Floaters Both Eyes Pseudophakia both eyes Specialty Diagnoses / Procedures Referred By Contact Refer red To Contact Optometry / OPHTHALMOLOGY Diagnoses diabetic exam Self Isaac Panchal Procedures EST ADULT T, OD [address] [place], [place] [address] Phone: Fax: Referral ID Status Reason Start Date Expiration Date Visits Requ ested Visits Authorized [id number] Closed 09/19/2021 04/18/2022 1 1 Reason Comments Arthritis follow up Specialty Diagnoses / Procedures Referred By Contact Refer red To Contact Family Practice / Diagnoses Follow up Alexa Becerra, Alexa Becerra, FAMILY MEDICINE Procedures 4C EST PA-C PA-C [address] [place] [address] [place] [address] Fax: Referral ID Status Reason Start Date Expiration Date Visits Requ ested Visits Authorized [id number] Closed 09/23/2021 04/18/2022 1 1 Reason Onset Date Comments ACM INEZ RN 10/13/2021 Suspect Condition Re view Reason Comments Joint Pain Reason Comments APPROVED-NO PA REQ Orencia APPROVED NO PA REQ A [id number] 11.10.2021 - 11.10.2022 12 Reason Comments New Patient Rheumotologist sent for eval uation Reason Onset Date Comments Refill Request 11/04/2021 Reason Comments Infusion Specialty Diagnoses / Procedures Referred By Contact Refer red To Contact Diagnoses Rheumatoid arthritis involving multiple sites with positive rheumatoid factor (HCC) Asia Calderón MD Josue Treat [facility] Procedures Orencia [address] [facility] [address] [place] [address] [place] [address] Fax: Referral ID Status Reason Start Date Expiration Date Visits V isits Requested Authorized [id number] Authorized 10/22/2021 11/10/2022 12 13 Reason Comments Medication Problem Reason Comments Refill Request Reason Comments Rheumatoid Arthritis Reason Comments Follow Up Reason Onset Date Comments Population Health Navigation Outreach 01/12/2022 C care gaps Reason Comments COPD Reason Comments Orders RECLAST Reason Onset Date Comments Refill Request 03/04/2022 Reason Comments Patient Update Care Teams (unrecognized section and con tent) Homeowner Association Manager Relationship Specialty Start Date End Date Alexa Becerra PA-C PCP - General Family Practice 02/13/19 [address] [place] [address] Yovani Piedra, DO Primary Staff Physician Cardiology 07/05/18 Homeowner Association Manager Relationship Specialty Start Date End Date Alexa Becerra PA-C PCP - General Family Practice 02/13/19 [address] [place] [address] Yovani Piedra, DO Primary Staff Physician Cardiology 07/05/18 Homeowner Association Manager Relationship Specialty Start Date End Date Alexa Becerra PA-C PCP - General Family Practice 02/13/19 [address] [place] [address] Yovani Piedra, DO Primary Staff Physician Cardiology 07/05/18 Homeowner Association Manager Relationship Specialty Start Date End Date Alexa Becerra PA-C PCP - General Family Practice 02/13/19 [address] [place] [address] Yovani Piedra, DO Primary Staff Physician Cardiology 07/05/18 Homeowner Association Manager Relationship Specialty Start Date End Date Alexa Becerra PA-C PCP - General Family Practice 02/13/19 [address] [place] [address] Yovani Piedra, DO Primary Staff Physician Cardiology 07/05/18 Homeowner Association Manager Relationship Specialty Start Date End Date Becerra, M Adelina, PA-C PCP - General Family Practice 02/13/19 [address] [place] [address] Yovani Piedra, DO Primary Staff Physician Cardiology 07/05/18 Homeowner Association Manager Relationship Specialty Start Date End Date Alexa Becerra PA-C PCP - General Family Practice 02/13/19 [address] [place] [address] Yovani Piedra, DO Primary Staff Physician Cardiology 07/05/18 Homeowner Association Manager Relationship Specialty Start Date End Date Alexa Becerra PA-C PCP - General Family Practice 02/13/19 [address] [place] [address] Yovani Piedra, DO Primary Staff Physician Cardiology 07/05/18 Homeowner Association Manager Relationship Specialty Start Date End Date Alexa Becerra PA-C PCP - General Family Practice 02/13/19 [address] [place] [address] Yovani Piedra, DO Primary Staff Physician Cardiology 07/05/18 Homeowner Association Manager Relationship Specialty Start Date End Date Alexa Becerra PA-C PCP - General Family Practice 02/13/19 [address] [place] [address] Yovani Piedra, DO Primary Staff Physician Cardiology 07/05/18 Homeowner Association Manager Relationship Specialty Start Date End Date Alexa Becerra PA-C PCP - General Family Practice 02/13/19 [address] [place] [address] Yovani Piedra, DO Primary Staff Physician Cardiology 07/05/18 Homeowner Association Manager Relationship Specialty Start Date End Date Alexa Becerra PA-C PCP - General Family Practice 02/13/19 [address] [place] [address] Yovani Piedra, DO Primary Staff Physician Cardiology 07/05/18 Homeowner Association Manager Relationship Specialty Start Date End Date Alexa Becerra PA-C PCP - General Family Practice 02/13/19 [address] [place] [address] Yovani Piedra, DO Primary Staff Physician Cardiology 07/05/18 Homeowner Association Manager Relationship Specialty Start Date End Date Alexa Becerra PA-C PCP - General Family Medicine 02/13/19 [address] [place] [address] Yovani Piedra, DO Primary Staff Physician Cardiology 07/05/18 Homeowner Association Manager Relationship Specialty Start Date End Date Alexa Becerra PA-C PCP - General Family Medicine 02/13/19 [address] [place] [address] Yovani Piedra, DO Primary Staff Physician Cardiology 07/05/18 Homeowner Association Manager Relationship Specialty Start Date End Date Alexa Becerra PA-C PCP - General Family Medicine 02/13/19 [address] [place] [address] Yovani Piedra, DO Primary Staff Physician Cardiology 07/05/18 Homeowner Association Manager Relationship Specialty Start Date End Date Alexa Becerra PA-C PCP - General Family Medicine 02/13/19 [address] [place] [address] Yovani Piedra, DO Primary Staff Physician Cardiology 07/05/18 Homeowner Association Manager Relationship Specialty Start Date End Date Alexa Becerra PA-C PCP - General Family Medicine 02/13/19 [address] [place] [address] Yovani Piedra, DO Primary Staff Physician Cardiology 07/05/18 Homeowner Association Manager Relationship Specialty Start Date End Date Alexa Becerra PA-C PCP - General Family Medicine 02/13/19 [address] [place] [address] Yovani Piedra, DO Primary Staff Physician Cardiology 07/05/18 Homeowner Association Manager Relationship Specialty Start Date End Date Alexa Becerra PA-C PCP - General Family Medicine 02/13/19 [address] [place] [address] Yovani Piedra, DO Primary Staff Physician Cardiology 07/05/18 Homeowner Association Manager Relationship Specialty Start Date End Date Alexa Becerra PA-C PCP - General Family Medicine 02/13/19 [address] [place] [address] Yovani Piedra, DO Primary Staff Physician Cardiology 07/05/18 Homeowner Association Manager Relationship Specialty Start Date End Date Alexa Becerra PA-C PCP - General Family Medicine 02/13/19 [address] [place] [address] Yovani Piedra, DO Primary Staff Physician Cardiology 07/05/18 [address] [place] [address] Homeowner Association Manager Relationship Specialty Start Date End Date Alexa Becerra PA-C PCP - General Family Medicine 02/13/19 [address] [place] [address] Yovani Piedra, DO Primary Staff Physician Cardiology 07/05/18 [address] [place] [address] Homeowner Association Manager Relationship Specialty Start Date End Date Alexa Becerra PA-C PCP - General Family Medicine 02/13/19 [address] [place] [address] Yovani Piedra, DO Primary Staff Physician Cardiology 07/05/18 [address] [place] [address] Homeowner Association Manager Relationship Specialty Start Date End Date Alexa Becerra PA-C PCP - General Family Medicine 02/13/19 [address] [place] [address] Yovani Piedra, DO Primary Staff Physician Cardiology 07/05/18 [address] [place] [address] FOR RECORDS PERTAINING TO PATIENTS WHO ARE [...] BE BASED ON THE PRIMARY CLINICAL RECORDS. [facility] [employer] [facility]. provides no warranty or guarantee of the accuracy or completeness of information in this document.
[2022-04-06] MEDS: levoFLOXacin IV 750 MG/150 ML BAG 100 MG IV (15:28)
[2022-04-06 16:25] LABS: Allen Test Positive; Base Excess -4 mmol/L (-2 to +2); Bicarbonate 24.4 mmol/L (22-26); Blood Gas Specimen Type ART; FI02 40; Mode NIV; PEEP 12; PO2 88 mmHG (75-100); RR 12; SITE L Brach; SO2 93 % (95-99); Total Carbon Dioxide 26 mmol/L; Vt 450; pH 7.17 (7.35-7.45)
[2022-04-06] MEDS: 0.9% Normal Saline 1,000 ML 999 ML IV ×2 (17:26→20:33)
--- NOTE | 2022-04-06 17:27 | ED.RN ---
THIS RN REPORTED BLOOD PRESSURE OF 87/58 TO PA. REGAN AT 1725. VERBAL ORDER FOR 1L 0.9% NORMAL SALINE BOLUS READ BACK TO RICARDO SPEARS.
--- NOTE | 2022-04-06 17:44 | PCM.HP.STD ---
HPI - General General Date of Service: 04/06/22 Chief Complaint: Change in mental status HPI Narrative BOBBY FLORES, is a 66 F who presents with change in mental status. Over the past few days, patient has become more listless and confused. Today was much worse. History is obtained through her at bedside as the patient is confused currently. Patient is not feeling well progressively listless and weak. Was more unresponsive today but awake and then easily fall back asleep. was concerned and brought her into the emergency room. Patient was not hypoxic but was on a nonrebreather and then changed over to BiPAP. Patient had ABG that was consistent with respiratory acidosis. Patient had a chest x-ray that showed right lower lobe pneumonia patient received levofloxacin. Patient blood pressure was also low and patient did receive 2 L of IV fluid. Patient has been having diarrhea, which has been qualifies more as soft stool over the past week. Since being put on BiPAP, patient's mental status has improved though not back to her baseline yet. [facility] Medical History Abdominal cramping Anemia Asthma Atrial fibrillation Bronchitis Chest pain Diabetes Former smoker GERD (gastroesophageal reflux disease) Hypertension Hyperthyroidism Irregular heart beat Lack of appetite Nausea On home oxygen therapy Pneumonia Rheumatoid arthritis Home Medications acetaminophen 500 mg tablet 1,000 mg PO Q6H PRN PAIN 01/30/19 [History Last Taken 04/06/22] gabapentin 100 mg capsule 200 mg PO BID NERVE PAIN 05/10/19 [History Last Taken 04/06/22] ipratropium 0.5 mg-albuterol 3 mg (2.5 mg base)/3 mL nebulization soln 3 ml inhalation Q6H.RT copd 05/10/19 [History Last Taken 09/10/20] ondansetron HCl 4 mg tablet (Zofran) 4 mg PO Q6H nausea #10 tabs 08/27/20 [Rx Last Taken 04/06/22] budesonide 0.5 mg/2 mL suspension for nebulization 0.5 mg inhalation BID sob 09/02/20 [History Last Taken 09/10/20] budesonide-formoterol HFA 160 mcg-4.5 mcg/actuation aerosol inhaler (Symbicort) 2 puff inhalation BID LUNGS 04/06/22 [History Last Taken 04/06/22] cholecalciferol (vitamin D3) 1,250 mcg (50,000 unit) capsule 50,000 unit PO QMONTH SUPPLEMENT 04/06/22 [History Last Taken Unknown] dextromethorphan-guaifenesin 30 mg-600 mg tablet extended [id number] hr (Mucinex DM) 1 tab PO Q12H CHEST CONGESTION 04/06/22 [History Last Taken 04/06/22] ferrous gluconate 324 mg (37.5 mg iron) tablet 324 mg PO BID SUPPLEMENT 04/06/22 [History Last Taken 03/31/22] gabapentin 400 mg capsule 400 mg PO TID NERVE PAIN 04/06/22 [History Last Taken 04/05/22] leflunomide 20 mg tablet 20 mg PO DAILY ARTHRITIS 04/06/22 [History Last Taken 04/06/22] metoprolol succinate 100 mg tablet,extended release 24 hr 100 mg PO DAILY HEART 04/06/22 [History Last Taken 04/06/22] omeprazole 40 mg capsule,delayed release 40 mg PO DAILY PRN REFLUX 04/06/22 [History Last Taken Unknown] rivaroxaban 20 mg tablet (Xarelto) 20 mg PO DAILY HEART 04/06/22 [History Last Taken 04/05/22] venlafaxine 37.5 mg capsule,extended release 24 hr 37.5 mg PO DAILY MOOD 04/06/22 [History Last Taken 04/05/22] verapamil 80 mg tablet 40 mg PO Q8 HEART 04/06/22 [History Last Taken 04/06/22] Allergy/AdvReac Type Severity Reaction Status Date / Time No Known Allergies Allergy Verified 09/02/20 16:24 Surgical History H/O: hysterectomy Social History household members: spouse Smoking Status: Former smoker substance use type: does not use ROS Review of Systems ROS Unobtainable: due to encephalopathy Vital Signs Vital Signs Vital Signs: 04/06/22 13:35 04/06/22 13:40 04/06/22 14:35 Temperature 35.3 C L 36.4 C L Temperature Source Temporal Core Pulse Rate 100 99 Respiratory Rate 33 H 31 H Respiratory Effort Labored Accessory Muscle Use Respiratory Pattern Tachypnea Blood Pressure 116/70 85/60 L Blood Pressure Mean 85 68 Pulse Ox 100 90 Oxygen Delivery Method Non-Rebreather Nasal Cannula Oxygen Flow Rate (L/min) 15 5 Fraction of Inspired Oxygen (FIO2) 04/06/22 14:20 04/06/22 15:00 04/06/22 15:00 Temperature Temperature Source Pulse Rate 102 H 97 89 Respiratory Rate 29 H 28 H 22 H Respiratory Effort Respiratory Pattern Blood Pressure 84/51 L 101/70 Blood Pressure Mean 62 80 Pulse Ox 100 96 93 Oxygen Delivery Method Non-Rebreather Nasal Cannula Oxygen Flow Rate (L/min) 15 5 Fraction of Inspired Oxygen (FIO2) 40 04/06/22 16:10 04/06/22 17:11 04/06/22 17:25 Temperature Temperature Source Pulse Rate 85 92 Respiratory Rate 21 H 25 H Respiratory Effort Respiratory Pattern Blood Pressure 104/68 102/66 87/58 L Blood Pressure Mean 80 78 67 Pulse Ox 94 97 Oxygen Delivery Method Bi-pap Bi-pap Oxygen Flow Rate (L/min) Fraction of Inspired Oxygen (FIO2) Weight Weight: 80.6 kg Body Mass Index (BMI) 30.4 Physical Exam Const alert Constitutional Narrative: On BiPAP Orientation / Consciousness: confused HEENT normocephalic and head/scalp atraumatic HEENT Narrative: Edentulous Eyes Eyes Narrative: No icterus Neck no lymphadenopathy and no JVD Resp Resp Narrative: Bilateral crackles. Cardio regular rate, regular rhythm, S1 normal heart sound and S2 normal heart sound GI normal to inspection, nondistended, normoactive bowel sounds, soft to palpation, non-tender and non-distended Extremity normal to inspection and full ROM Neuro moves all extremities and no focal motor deficits Results Lab / Micro Data Attestation: I reviewed the patient's lab results. Result Diagrams: 04/06/22 13:41 04/06/22 13:41 Labs: Laboratory Results - last 24 hr 04/06/22 13:41: WBC 23.4 H, RBC 3.73 L, Hgb 11.3 L, Hct 38.6, MCV 103.5 H, MCH 30.3, MCHC 29.3 L, RDW Std Deviation 54.8 H, RDW Coeff of Lainey 14.6, Plt Count 360, MPV 10.4, Immature Gran % (Auto) 2.200 H, Neut % (Auto) 86.1 H, Lymph % (Auto) 5.3 L, [place] % (Auto) 5.3, Eos % (Auto) 0.3, Baso % (Auto) 0.8, Absolute Neuts (auto) 20.1 H, Absolute Lymphs (auto) 1.23, Nucleated RBC % 0.2, Differential Comment COMMENT 04/06/22 13:41: Sodium 135 L, Potassium 4.6, Chloride 103, Carbon Dioxide 23.0, Anion Gap 9, BUN 55 H, Creatinine 1.30 H, Estim Creat Clear Calc 37.75, Est GFR (MDRD) Af Amer 53 L, Est GFR (MDRD) Non-Af 44 L, BUN/Creatinine Ratio 42.3 H, Glucose 136 H, Calcium 8.3 L 04/06/22 13:41: Lactic Acid 2.4 H* 04/06/22 13:41: PT 27.2 H, INR 2.6, APTT 43.6 H 04/06/22 13:50: Urine Color Yellow, Urine Clarity Sl. Cloudy, Urine pH 5.0, Ur Specific [place] 1.020, Urine Protein 30 H, Urine Glucose (UA) Normal, Urine Ketones 5 H, Urine Occult Blood 10 H, Urine Nitrite Negative, Urine Bilirubin 1 H, Urine Urobilinogen 1 H, Ur Leukocyte Esterase 25 H, Urine RBC 0-5 SEEN, Urine WBC 0-5 SEEN, Ur Squamous Epith Cells 0-5 SEEN, Urine Bacteria 4+, Urine Mucus 0 SEEN Micro: Microbiology 04/06/22 14:50 Nasal Secretion SARS-CoV-2 & FLU Antigen (Rapid) - Final ABG Data ABG results: ABG 04/06/22 04/06/22 14:58 16:18 Specimen Type ART ART Sample Site L Brach L Brach pH 7.16 L* 7.17 L* Bicarbonate Actual 25.0 24.4 Total CO2 27 26 Base Excess -4 L -4 L O2 Saturation 49 L 93 L O2 % 40 ABG pCO2 70.0 H* 67.0 H ABG pO2 35 L* 88 Adán Test Positive Respiration Rate 12 O2 Delivery Device Cannula Liter Flow 5.0 Vent Mode NIV Tidal Volume 450 POC PEEP 12 Crit Call To/Read Back Yes Yes Blood Gas Notified Whom kirill deleon Radiology Impression Brain CT 04/06/22 13:54 IMPRESSION: Normal unenhanced CT scan of the brain. Opacification of the right maxillary sinus. Electronically Signed: Porter Vallecillo MD at 14:55 EST , Chest X-Ray 04/06/22 14:16 IMPRESSION: Progressive infiltration in the right hemithorax suggestive of a possible superimposed pneumonia on chronic progressive interstitial fibrosis. Electronically Signed: Porter Vallecillo MD at 15:16 EST , Assessment & Plan Assessment/Plan (1) Sepsis: PLAN: Present on admission Secondary to pneumonia Patient with leukocytosis of 23,000, acute kidney injury with a creatinine 1.3 up from baseline 0.7, tachycardia of 102, respiratory rate at 1.33 Follow-up cultures High risk for further decompensation into septic shock. Did discuss with the patient's if she does require pressor agents that she would require a triple-lumen catheter. Discussed the risks and benefits with him and he is agreeable to proceed if becomes necessary. (2) Pneumonia: PLAN: Concern for more severe pneumonia. 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 Will broaden antibiotics to piperacillin/tazobactam and vancomycin Pulmonary toilet (3) Metabolic encephalopathy: PLAN: Improving after being placed on BiPAP likely due to CO2 narcosis Patient received fentanyl in the emergency room for being agitated according to the physician academic assistant Avoid potentiating medications Hold gabapentin Head CT was unremarkable (4) KAY (acute kidney injury): PLAN: Likely prerenal IV fluids Monitor (5) Acute and chronic respiratory failure, unspecified whether with hypoxia or hypercapnia: PLAN: Secondary to pneumonia plus bronchiectasis and COPD exacerbation Bronchodilators Methylprednisolone Consult CCM PLAN: Plan Chronic conditions Hypertension: Hold medications as blood pressure is low Anemia: Stable. Hold ferrous gluconate for now Atrial fibrillation: Continue with rivaroxaban. Hold metoprolol succinate for now given soft blood pressure currently. VTE prophylaxis: Not indicated as patient is already anticoagulated. CODE STATUS: Addressed with the patient's . Patient is to be full code. Charges/Coding Visit Charges Inpatient E&M: 11508 Init Hosp L3
[2022-04-06 18:06] LABS: Allen Test Positive; Base Excess -5 mmol/L (-2 to +2); Bicarbonate 23.9 mmol/L (22-26); Blood Gas Specimen Type ART; FI02 40; Mode BiLevel; O2 Delivery Device BiPAP; PEEP 10; PO2 106 mmHG (75-100); RR 12; SITE L Radial; SO2 96 % (95-99); Total Carbon Dioxide 26 mmol/L; Vt 450; pCO2 68.1 mmHg (35-45); pH 7.15 (7.35-7.45)
--- OUTSIDE RECORDS SUMMARY | 2022-04-06 18:12 | XMS RPT_ITS | CCD ---
:1955 Author Organization [facility] Care Team Providers Name Role Phone Alexa [...] Allergen(s) Onset Tree; Allergy to Other: See [place] (20 sources) Translations: substance 1 Comments Clinic [TREES] Ragweed; Allergy to Other: See [place] (20 sources) Translations: substance 1 Comments Clinic [RAGWEED] Nortriptyline; Drug Allergy Intolerance [facility] (20 sources) Translations: 2 Work Phon e: [...] age 5 severe COPD by GOLD classification ([facility]) Use 2 mL via nebulize r once [...] sources) Chronic obstruc tive pulmonary disease, unspecified 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 DME: [employer]. 1 Each 5 2018 Active Start: 11-29-2018 COMPOUNDED PRESCRIPT ION Indications: Panlobular emphysema ([facility]) , ILD (interstitial lexus ng disease) ([facility]) Accessories for nebulizer J43.1 Panlobular emp hysema ([facility]) (primary encounter diagnosis) J84.9 ILD (interstit ial lung disease) ([facility]) 1 Each 1 11/29/2018 Active Start: 08-30-2018 COMPOUNDED PRESCRIPT ION Indications: Centrilobular emphysema ([facility]) , ILD (interst itial lung disease) ([facility]) , Chronic respiratory failure with hypoxia ([facility]) #1 Continuous Flow Stationary O2 Concen trator Sig: O2 2l/min liter flow Patient is to keep portablel co ncentrator as well J43.2 Centrilobular emphysema ([facility]) J84. 9 ILD (interstitial lung disease) ([facility]) J96.11 Chronic respi ratory failure with hypoxia ([facility]) 1 Each 0 08/30/2018 Active Start: 03-24-2018 [...] concentrator as well J43.2 Centrilobular emphysem a ([facility]) J84.9 ILD (interstitial lung disease) ([facility]) J96.11 Chronic respiratory f ailure with hypoxia ([facility]) Accessories for nebulizer J43.1 Panlobular emphysema ( [facility]) (primary encounter diagnosis) J84.9 ILD (interstitial lung disease) ([facility]) Provide nebulizer accessory kit. DME: [employer]. ergocalciferol [...] 3 severe COPD by GOLD classif ication ([facility]) , Chronic respira tory failure with hypoxia ([facility]) , Centrilobular emphysema ([facility]) , ILD (interstitial l angela disease) ([facility]) Portable oxygen concentrator 3l/min at all t [...] Epi sodic (1 source) of anticoagulant; Translations: [detention (current) use of anticoagulants] Other aftercare Taking high risk Episodic (2 sources) medication; Translations: [Other in store representative (current) drug therapy] Other aftercare 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 (current) Onset: Episo dic (1 source) use [...] sources) of immunosuppressive 05-19-2017 drug; Translations: [Other alf (current) drug therapy] Other aftercare Long-term current use Onset: 06-28-2017 Epi sodic (20 sources) of systemic steroid; 06-28-2017 Translations: [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 (current) use of systemic steroids] Other aftercare detention (current) use Onset: E pisodic (2 sources) of systemic steroids; 06-28-2017 Translations: [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 current use of systemic steroids] Other aftercare Other in store representative Onset: Episodic (1 source) (current) drug therapy; 05-19-2017 Translations: [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 current use of immunosuppressive drug] Other ear [...] Test Name Value Interpretation Reference Range Facility [facility] on 03-30-2022 CNPN Telephone (FAMPWS) Normal [place] [facility] VIVIANA SANTANA ([id number]) 1955 [facility] Date Time Provider Department 03/30/22 Alexa BECERRA [facility] During your visit today, we recorded the [...] bags of IV fluid and sent ho az. No new medications ordered. Pt is not [...] neut 17.5 this may have been from in store representative prednisone though it was stopped mid . 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 CNOV on 03-17-2022 CNOV Office Visit (CARDMM) Normal [facility] VIVIANA SANTANA ([id number]) 1955 F [facility] Time Provider Department 03/17/22 3:00 PM YOVANI PIEDRA During your visit today, we recorded the following inf ormation about you: Pulse Blood pressure Weight Height 106/minute 110/60 79.6 kg 1.6 m Yovani Piedra DO 03/17/2022 3:48 PM Signed [facility] Heart and Vascular [place] Sanjiv Sprague Department of Cardiovascula r Medicine [...] respiratory failure again. She did got to [facility] for pneumonia admit in January 2019: Preadmission evaluation: SOB and cough x 2 days. No fe kameron. had URI. Which facility: [facility] Dates of visit: !-02/02/19 Primary Diagnosis/es: [...] majority of her time. She was admitted [facility] in April with sepsis and pneumonia and [...] She follows with nubia owens at the [facility] now. There was a note that they [...] Ventricular Rate : 106 BPM Normal C [facility] Atrial Rate : 106 BPM P-R Interval : 162 ms QRS Duration : 70 ms Q-T Interval : 314 ms QTC Calculation(Bazett) : 417 ms Calculated P [place] : 60 degrees Calculated R [place] : 22 degrees Calculated T [place] : 55 degrees SINUS TACHYCARDIA WITH PREMATURE ATRIAL COMPLEXES OTHERWISE NORMAL ECG Confirmed by YOVANI PIEDRA D.O. ([id number]) on 03/20/20 1:30:10 PM NAME : VIVIANA SANTANA PID : [id number] : 1955 Gender : Female Race : ORD : [id number] Procedure Date : Mar 17 2022 14:55:05 Edit Date : Mar 20 2022 13:30:16 Diagnosis: SINUS TACHYCARDIA WITH PREMATURE ATRIAL COM PLEXES OTHERWISE NORMAL ECG Confirmed by YOVANI PIEDRA D.O. ([id number]) on 03/20/20 1:30:10 PM Test Reason : Location : 158 : [facility] Overread By : YOVANI PIEDRA D.O. Edited By : YOVANI PIEDRA D.O. Referred By : YOVANI PIEDRA Acquired by : PH, CREATININE BLD on 03-16-2022 Creatinine [Mass/Vol] 0.72 mg/dL Normal 0.51-0.95 [facility] Comment on above: Order Comment: Specimen Type : BLOOD SPECIMENOrdering Facility: [facility] Address: [place] [address] Performed By: #### CRET1 ### #[facility] LABCLIA [id number] [place] [address] [facility] ESTIMATED GLOMERULAR 94 mL/min/1.73m??? Normal >=60 A [facility] FILTRATION RATE [place] Comment on above: Order Comment: Specimen Type : BLOOD SPECIMENOrdering Facility: [facility] Address: [place] [address] Result Comment: Estimated Gl omerular Filtration Rate [...] Performed By: #### CRET1 ### #[facility] LABCLIA [id number] [place] [address] [place] Creatinine [Mass/Vol] 0.72 mg/dL 0.51 - 0.95 mg/dL C [facility] Estimated Glomerular 94 mL/min/1.73m >=60 mL/min/1.73m [facility] Filtration Rate [facility] on 03-04-2022 [facility] HNO ID: [id number] Normal [facility] Author: Mammography Coordinator Service: ? Author Type: Physician Type: Letter Filed: 03/05/2022 11:34 PM Note Text: March 04, 2022 PID: [id number] Viviana Santana [address] [place] [id number] Dear Ms. Santana, Your recent breast imaging exam on 03/04/2022 showed a possible finding that requires additional imaging studies for a complet e evaluation. Most such findings are probably benign (not cancer). If you have a healthcare provider who ordered/prescrib ed your screening mammogram: Please call [phone] or [phone]: [phone] to schedule an appointment for your additional [...] and reports are kept on file at [facility] as part of your permanent medical record, and are availab le for your continuing care. Thank you for allowing us to help in meeting your [facility] care needs. Sincerely, Dr. Henderson Interpreting Radiologist [facility] (Additional imaging) [facility] SCREENING on 03-04-2022 [facility] SCREENING * * *Final Report* * * Normal [facility] DATE OF EXAM: Mar 04 2022 1:53PM [facility] 0581 - [facility] SCREENING / PROCEDURE REASON: Encounter for screening mammogram fo r breast cancer * * * * Physician Interpretation * * * * RESULT: #[id number] - [facility] SCREENING BILATERAL DIGITAL SCREENING MAMMOGRAM WITH CAD: [...] mammogram, 12/23/2017 mammogram, and 12/10/2016 mammogram - [facility]. There are scattered fibroglandular elements in both br easts. There is an asymmetry in the left breast outer region seen on the craniocaudal view only. No other significant masses, calcifications, or other findings are seen in either breast. IMPRESSION: INCOMPLETE: NEEDS ADDITIONAL IMAGING EVALU ATION The asymmetry in the left breast is indeterminate. Add itional views are recommended. Latonya Henderson M.D., ch/lanette:03/04/2022 16:31:53 Scrub Tech(s): RT Rosa M(R)(M), [facility] letter sent: Additional Imaging Needed Mammogram BI-RADS: 0 Incomplete: needs additional imag ing evaluation If this report indicates you need additional imaging, and it has NOT yet been performed, please call , to schedule. We sincerely thank you for choosing the [facility] for your breast imaging needs. Multiple [...] Health, Family Medicine, and Medical/Surgical Oncology, the [facility] has carefully reviewed the data and reached [...] their providers when to stop screening mammograms. Assistant Clinical Nurse Manager: Lanette Transcribe Date/Time: Mar 04 2022 1:39P Dictated by: LATNOYA HENDERSON MD This examination was interpreted and the report review ed and electronically signed by: LATONYA HENDERSON MD on Mar 04 2022 4:31PM EST [id number] CT CHEST WO IVCON on 02-23-2022 CT CHEST WO IVCON * * *Final Report* * * Normal [facility] DATE OF EXAM: Feb 23 2022 1:35PM [facility] 0541 - CT CHEST WO IVCON / [...] abnormality in the imaged upper abdo men. Surg Rn (topogram) images: No additional findings. IMPRESSION: Findings are suggestive of interstitial lung disease w ith emphysema. The pattern and distribution are more compatible with UIP. Scattered tiny nodules in the bilateral lungs. Borderline enlarged mediastinal lymph nodes, similar t o prior study. Assistant Clinical Nurse Manager: PSCB Transcribe Date/Time: Feb 24 2022 3:47P Dictated by : MAYRA ANDREA MD This examination was interpreted and the report review ed and electronically signed by: MAYRA ANDREA MD on Feb 24 2022 3:54PM EST [id number] CNPN on 02-10-2022 [facility] VIVIANA SANTANA ([id number]) 1955 F Medical Date Time Provider Department Center 02/10/22 ASIA CALDERÓN During your visit today, we recorded the following inf ormation about you: Sayda Jimenez LPN 02/10/2022 10:23 AM Signed Patient does not have active orders for Reclast. Please place orders so we can get her scheduled at [facility]. Thanks, ROBERTA Villalobos MD 02/10/2022 10:30 [...] emphysema (HCC) J84.9 ILD (interstitial lung disease) ([facility]) J96.11 Chronic respiratory failure with hypoxia (HCC) [...] *2017 Rheumatoid arthritis involving multiple sites w*2017 detention current use of immunosuppressive drug*2017 Paroxysmal atrial [...] Visit (PULMWS) Normal [facility] VIVIANA Simpson ([id number]) 1955 [facility] Date Time Provider Department 02/06/22 2:45 PM JUNIOR MATHEW PULMWS During your visit today, we recorded the following inf ormation about you: Pulse Respiration Blood pressure Weight 88/minute 20/minute 106/74 84.4 kg Height 1.6 m Junior Mathew MD 02/06/2022 8:36 PM Signed . Respiratory [place] Note Patient name: Viviana Santana PCP: Alexa [...] on inhaled therapy. 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 Current [...] treatment for bronchitis with ant ibiotics. DME: [facility], 3 L DATA: PFT 07/2021: Review of [...] Abs Lymph 1.00 - 4.00 k/uL 1.56 Collin% % 5.5 Abs Collin <0.87 k/uL 0.69 Eosin% % 3.3 Abs Eosin <0.46 k/uL 0.42 Baso% % 1.0 Abs Baso <0.11 k/uL 0.13 High Immature Gran % % 0.4 Abs Immature Gran <0.10 k/uL 0.05 NRBC /100 WBC 0.0 Absolute nRBC <0.01 k/uL <0.01 Diff Type Auto Imaging / Diagnostic Studies: Reviewed [facility] from [facility] 08/2020: I personally reviewed images which [...] Take 1 tablet by mouth twice daily. [email or web address] Portable ox ygen concentrator 3l/min at all times. omeprazole (PRILOSEC) 40 mg capsule Take 1 capsule by mouth as needed. COMPOUNDED PRESCRIPTION Provide nebulizer accessory severiano morrissey DME: [employer]. COMPOUNDED PRESCRIPTION Accessories for nebulizer J43.1 Mallorie (more content not included)... CNOV on 01-30-2022 CNOV Office Visit (RHBATH) Normal [facility] VIVIANA SANTANA ([id number]) 1955 F Medical Date Time Provider Department Center 01/30/22 11:40 AM SAIA CALDERÓN RHBNONA During your visit today, we [...] with RA 2016. She was admitted at [facility] - double pneumonia, RA. She was [...] DM2, polyneuropathy. She follows with pulm in [place]. RA, chronic steroids, adrenal insuff Family h/o [...] b (more content not included )... 25(OH)D3 [facility] on 01-19-2022 25-hydroxyvitamin D3 [Mass/Vol] 50.1 ng/mL Normal >=30.0 [facility] Comment on above: Order Comment: Specimen Type : BLOOD SPECIMENOrdering Facility: [facility] Address: [address] [place] [address] Result Comment: Classificati on of 25 [place] Vitamin D status: Deficiency: <= 20.0 ng/ml. Insufficiency: 21.0-29.0 ng/ ml. Sufficiency: >= 30.0 ng/ml. Performed By: #### 1989-3 ## ##[facility] LABORATORYCLIA [id number] [address] [place] CBC W Auto Differential panel (Bld) on 01-19-2022 Basophils (Bld) [#/Vol] 0.13 10*3/uL High <0.11 [facility] Comment on above: Order Comment: Specimen Type : BLOOD SPECIMENOrdering Facility: [facility] Address: [address] [place] [address] Performed By: #### 80529-0 # ###[facility] LABORATORYCLIA [id number] [address] [place] Basophils/100 WBC (Bld) 1.0 % Normal [facility] Comment on above: Order Comment: Specimen Type : BLOOD SPECIMENOrdering Facility: [facility] Address: [address] [place] [address] Performed By: #### 58028-2 # ###[facility] LABORATORYCLIA [id number] [address] [place] Differential cell count method Nom (Bld) Auto Normal [facility] Comment on above: Order Comment: Specimen Type : BLOOD SPECIMENOrdering Facility: [facility] Address: [address] [place] [address] Performed By: #### 62178-8 # ###[facility] LABORATORYCLIA [id number] [address] [place] Eosinophils (Bld) [#/Vol] 0.42 10*3/uL Normal <0.46 [facility] Comment on above: Order Comment: Specimen Type : BLOOD SPECIMENOrdering Facility: [facility] Address: [address] [place] [address] Performed By: #### 25738-6 # ###[facility] LABORATORYCLIA [id number] [address] Eosinophils/100 WBC (Bld) 3.3 % Normal [facility] Comment on above: Order Comment: Specimen Type : BLOOD SPECIMENOrdering Facility: [facility] Address: [address] [place] [address] Performed By: #### 88463-6 # ###[facility] LABORATORYCLIA [id number] [address] Erythrocyte distribution width 13.5 % Normal 11.5-15.0 [facility] (RBC) [Ratio] Comment on above: Order Comment: Specimen Type : BLOOD SPECIMENOrdering Facility: [facility] Address: [address] [place] [address] Performed By: #### 09923-3 # ###[facility] LABORATORYCLIA [id number] [address] [place] Hematocrit (Bld) [Volume 38.4 % Normal 36.0-46.0 [facility] fraction] Comment on above: Order Comment: Specimen Type : BLOOD SPECIMENOrdering Facility: [facility] Address: [address] [place] [address] Performed By: #### 12161-4 # ###[facility] LABORATORYCLIA [id number] [address] [place] Hemoglobin (Bld) [Mass/Vol] 11.3 g/dL Low 11.5-15.5 [facility] Comment on above: Order Comment: Specimen Type : BLOOD SPECIMENOrdering Facility: [facility] Address: [address] [place] [address] Performed By: #### 55040-5 # ###[facility]ORATORYCLIA [id number] [facility] [place] [id number] [place] [address] OF [facility] IMMATURE GRAN % 0.4 % Normal [facility] Comment on above: Order Comment: Specimen Type : BLOOD SPECIMENOrdering Facility: [facility] Address: [address] [place] [address] Performed By: #### 91017-5 # ###[facility]ORATORYCLIA [id number] [facility] [place], [address] IMMATURE GRAN ABS 0.05 k/uL Normal <0.10 [facility] Comment on above: Order Comment: Specimen Type : BLOOD SPECIMENOrdering Facility: [facility] Address: [address] [place] [address] Performed By: #### 24997-2 # ###[facility] LABORATORYCLIA [id number] [facility] [place], [address] STATES OF [facility] Lymphocytes (Bld) [#/Vol] 1.56 10*3/uL Normal 1.00-4.00 [facility] Comment on above: Order Comment: Specimen Type : BLOOD SPECIMENOrdering Facility: [facility] Address: [address] [place] [address] Performed By: #### 38906-5 # ###[facility]ORATORYCLIA [id number] [facility] [place], [address] Lymphocytes/100 WBC (Bld) 12.4 % Normal [facility] Comment on above: Order Comment: Specimen Type : BLOOD SPECIMENOrdering Facility: [facility] Address: [address] [place] [address] Performed By: #### 76846-6 # ###[facility]ORATORYCLIA [id number] [facility] [place], [address] [place] MCH (RBC) [Entitic mass] 30.3 pg Normal 26.0-34.0 [facility] Comment on above: Order Comment: Specimen Type : BLOOD SPECIMENOrdering Facility: [facility] Address: [address] [place] [address] Performed By: #### 96654-6 # ###[facility] LABORATORYCLIA [id number] [address] STATES OF [facility] MCHC (RBC) [Mass/Vol] 29.4 g/dL Low 30.5-36.0 [facility] Comment on above: Order Comment: Specimen Type : BLOOD SPECIMENOrdering Facility: [facility] Address: [address] [place] [address] Performed By: #### 73005-6 # ###[facility] LABORATORYCLIA [id number] [address] [place] OF [facility] MCV (RBC) [Entitic vol] 102.9 fL High 80.0-100.0 [facility] Comment on above: Order Comment: Specimen Type : BLOOD SPECIMENOrdering Facility: [facility] Address: [address] [place] [address] Performed By: #### 95693-2 # ###[facility] LABORATORYCLIA [id number] [address] Monocytes (Bld) [#/Vol] 0.69 10*3/uL Normal <0.87 [facility] Comment on above: Order Comment: Specimen Type : BLOOD SPECIMENOrdering Facility: [facility] Address: [address] [place] [address] Performed By: #### 18624-6 # ###[facility] LABORATORYCLIA [id number] [address] Monocytes/100 WBC (Bld) 5.5 % Normal [facility] Comment on above: Order Comment: Specimen Type : BLOOD SPECIMENOrdering Facility: [facility] Address: [address] [place] [address] Performed By: #### 83469-1 # ###[facility] LABORATORYCLIA [id number] [facility] [place] [id number] [place] [address] [place] Neutrophils (Bld) [#/Vol] 9.72 10*3/uL High 1.45-7.50 [facility] Comment on above: Order Comment: Specimen Type : BLOOD SPECIMENOrdering Facility: [facility] Address: [address] [place] [address] Performed By: #### 51313-5 # ###[facility]ORATORYCLIA [id number] [facility] [place], [address] [place] Neutrophils/100 WBC (Bld) 77.4 % Normal [facility] Comment on above: Order Comment: Specimen Type : BLOOD SPECIMENOrdering Facility: [facility] Address: [address] [place] [address] Performed By: #### 80633-8 # ###[facility] LABORATORYCLIA [id number] [facility], [address] [place] Nucleated RBC (Bld) [#/Vol] 10*3/uL Normal <0.01 [facility] Comment on above: Order Comment: Specimen Type : BLOOD SPECIMENOrdering Facility: [facility] Address: [address] [place] [address] Performed By: #### 18498-8 # ###[facility] LABORATORYCLIA [id number] [facility] [facility], [address] [place] Nucleated RBC/100 WBC (Bld) 0.0 /100 WBC Normal [facility] [Ratio] Comment on above: Order Comment: Specimen Type : BLOOD SPECIMENOrdering Facility: [facility] Address: [address] [place] [address] Performed By: #### 11017-7 # ###[facility]ORATORYCLIA [id number] [facility], [address] Platelet mean volume (Bld) 10.6 fL Normal 9.0-12.7 [facility] [Entitic vol] Comment on above: Order Comment: Specimen Type : BLOOD SPECIMENOrdering Facility: [facility] Address: [address] Performed By: #### 49517-0 # ###[facility]ORATORYCLIA [id number] [place] [address] [facility] Platelets (Bld) [#/Vol] 294 10*3/uL Normal 150-400 [facility] Comment on above: Order Comment: Specimen Type : BLOOD SPECIMENOrdering Facility: [facility] Address: [facility] [place] [facility] [place] [address] Performed By: #### 66810-0 # ###[facility]ORATORYCLIA [id number] [place] [address] [facility] RBC (Bld) [#/Vol] 3.73 10*6/uL Low 3.90-5.20 [facility] Comment on above: Order Comment: Specimen Type : BLOOD SPECIMENOrdering Facility: [facility] Address: [facility] [place] [facility] [place] [address] Performed By: #### 10832-1 # ###[facility] LABORATORYCLIA [id number] [facility] [place] [id number] [place] [address] [place] [facility] WBC (Bld) [#/Vol] 12.57 10*3/uL High 3.70-11.00 [facility] Comment on above: Order Comment: Specimen Type : BLOOD SPECIMENOrdering Facility: [facility] Address: [address] Performed By: #### 27555-1 # ###[facility] LABORATORYCLIA [id number] [place] [address] [facility] Comprehensive metabolic 2000 panel on 1 Albumin [Mass/Vol] 3.6 g/dL Low 3.9-4.9 [facility] Comment on above: Order Comment: Specimen Type : BLOOD SPECIMENOrdering Facility: [facility] Address: [address] [place] [address] Performed By: #### 76838-7 # ###[facility]ORATORYCLIA [id number] [facility] [place], [place] [id number] [place] [address] [place] ALP [Catalytic activity/Vol] 105 U/L Normal 34-123 [facility] Comment on above: Order Comment: Specimen Type : BLOOD SPECIMENOrdering Facility: [facility] Address: [address] [place] [address] Performed By: #### 34736-0 # ###[facility]ORATORYCLIA [id number] [facility] [place], [address] [place] ALT With P-5'-P [Catalytic 8 U/L Normal 7-38 [facility] activity/Vol] Comment on above: Order Comment: Specimen Type : BLOOD SPECIMENOrdering Facility: [facility] Address: [address] [place] [address] Performed By: #### 34065-5 # ###[facility]ORATORYCLIA [id number] [facility] [place], [address] [place] Anion gap [Moles/Vol] 11 mmol/L Normal 9-18 [facility] Comment on above: Order Comment: Specimen Type : BLOOD SPECIMENOrdering Facility: [facility] Address: [address] [place] [address] Performed By: #### 69415-9 # ###[facility]ORATORYCLIA [id number] [facility] [place], [address] [place] AST With P-5'-P [Catalytic 17 U/L Normal 13-35 [facility] activity/Vol] Comment on above: Order Comment: Specimen Type : BLOOD SPECIMENOrdering Facility: [facility] Address: [address] [place] [address] Performed By: #### 63612-3 # ###[facility]ORATORYCLIA [id number] [facility], [address] [place] Bilirubin [Mass/Vol] 0.2 mg/dL Normal 0.2-1.3 [facility] Comment on above: Order Comment: Specimen Type : BLOOD SPECIMENOrdering Facility: [facility] Address: [address] [place] [address] Performed By: #### 83630-3 # ###[facility]ORATORYCLIA [id number] [place] [address] [place] Calcium [Mass/Vol] 8.7 mg/dL Normal 8.5-10.2 [facility] Comment on above: Order Comment: Specimen Type : BLOOD SPECIMENOrdering Facility: [facility] Address: [address] [place] [address] Performed By: #### 45212-5 # ###[facility]ORATORYCLIA [id number] [place] [address] [place] Chloride [Moles/Vol] 99 mmol/L Normal 97-105 [facility] Comment on above: Order Comment: Specimen Type : BLOOD SPECIMENOrdering Facility: [facility] Address: [address] [place] [address] Performed By: #### 50407-9 # ###[facility]ATORYCLIA [id number] [facility] [place] [id number] [place] [address] [place] CO2 [Moles/Vol] 27 mmol/L Normal 22-30 [facility] Comment on above: Order Comment: Specimen Type : BLOOD SPECIMENOrdering Facility: [facility] Address: [address] [place] [address] Performed By: #### 95166-3 # ###[facility]ATORYCLIA [id number] [facility] [place] [id number] [place] [address] [place] Creatinine [Mass/Vol] 0.82 mg/dL Normal 0.58-0.96 [facility] Comment on above: Order Comment: Specimen Type : BLOOD SPECIMENOrdering Facility: [facility] Address: [address] [place] [address] Performed By: #### 82364-2 # ###[facility]ATORYCLIA [id number] [facility] [place] [id number] [place] [address] [place] ESTIMATED GLOMERULAR 80 mL/min/1.73m??? Normal >=60 A [facility] Comment on above: Order Comment: Specimen Type : BLOOD SPECIMENOrdering Facility: [facility] Address: [address] [id number] Result Comment: Estimated Gl omerular Filtration Rate [...] accurately reflect actual GFR. Performed By: #### 33559-6 # ###[facility] LABORATORYCLIA [id number] [place] [address] [place] Glucose [Mass/Vol] 86 mg/dL Normal 74-99 [facility] Comment on above: Order Comment: Specimen Type : BLOOD SPECIMENOrdering Facility: [facility] Address: [address] Result Comment: The [place] Diabetes Association (ADA) provides guidance for cutoff [...] for diagnosis of diabetes. Reference: Standards of [facility] Care in Diabetes 2016, [place] [employer] Association. Diabetes Care. 2016.39(Suppl 1). Performed By: #### 74500-1 # ###[facility] LABORATORYCLIA [id number] [place] [address] [place] Potassium [Moles/Vol] 4.2 mmol/L Normal 3.7-5.1 [facility] Comment on above: Order Comment: Specimen Type : BLOOD SPECIMENOrdering Facility: [facility] Address: [address] [id number] Performed By: #### 61787-4 # ###[facility]ORATORYCLIA [id number] [facility], [address] STATES OF [facility] Protein [Mass/Vol] 6.8 g/dL Normal 6.3-8.0 [facility] Comment on above: Order Comment: Specimen Type : BLOOD SPECIMENOrdering Facility: [facility] Address: [address] [place] [address] Performed By: #### 24527-4 # ###[facility]ORATORYCLIA [id number] [facility], [address] Sodium [Moles/Vol] 137 mmol/L Normal 136-144 [facility] Comment on above: Order Comment: Specimen Type : BLOOD SPECIMENOrdering Facility: [facility] Address: [address] [place] [address] Performed By: #### 95248-9 # ###[facility] LABORATORYCLIA [id number] [address] STATES OF [facility] Urea nitrogen [Mass/Vol] 16 mg/dL Normal 7-21 [facility] Comment on above: Order Comment: Specimen Type : BLOOD SPECIMENOrdering Facility: [facility] Address: [address] [place] [address] Performed By: #### 44374-2 # ###[facility]ATORYCLIA [id number] [facility], [address] OF [facility] CNOV on 01-01-2022 CNOV Office Visit (SPAGWO) Normal [place] VIVIANA Beverly ([id number]) 1955 F Medical Date Time Provider Department [...] The patient is not nervous/anxious. Sirena Royal APRN.WAD IMPREGNATOR 01/01/2022 2:42 PM Signed [facility] Today's Date: 01/01/2022 Last Visit: 10/30/21 [...] CNOV Office Visit (FAMJoseWS) Normal [facility] VIVIANA SANTANA ([id number]) 1955 [facility] Date Time Provider Department 12/26/21 2:40 PM Alexa BECERRA During your visit today, we recorded the following inf ormation about you: Pulse Blood pressure Weight Height 89/minute 124/72 80.6 kg 1.6 m M Adelian Becerra PA-C 12/27/2021 12:50 PM Signed 66 year old female with c/o here for [facility] [employer]. No current concerns, feels she is doing [...] 1.00 - 4.00 k/uL 2.11 1.19 1.52 Collin% % 5.9 4.2 3.8 Abs Collin <0.87 k/uL 0.56 0.44 0.40 Eosin% % [...] of systemic steroids Iatrogenic adrenal insufficiency (hcc) 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 current use of immunosupp (more content not included)... 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 COMPARISON: Spine: None. Femur: None. [...] femoral neck, greater trochanter, or total hip) Assistant Clinical Nurse Manager: PSCB Transcribe Date/Time: Dec 11 2021 9:09A Dictated by : CHRIS JOHNSON MD This examination was interpreted and the report review ed and electronically signed by: CHRIS JOHNSON MD on Dec 11 2021 9:10AM EST [id number] CNPN on 11-27-2021 CNPN Telephone (RGMOB) [facility] VIVIANA Simpson ([id number]) 1955 [facility] Time Provider Department 11/27/21 RICK FENG During your visit today, we recorded the following inf ormation about you: Ismael Apple 11/27/2021 12:33 PM Signed Patient does not want to take nortriptytline 25 mg, requesting new medication due to this one making her dizzy. Please advise, call back to [phone]. Thank you. 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] 05/19/2017 05/19/2017 Iatrogenic adrenal insufficiency (HCC) [E27.49] 2017 Chronic respiratory failure with hypoxia (HCC) *2017 Rheumatoid arthritis involving multiple sites w*2017 detention current use of immunosuppressive drug*2017 Paroxysmal atrial [...] on 10-30-2021 CNOV Office Visit (SPAGWO) Normal [facility] VIVIANA SANTANA ([id number]) 1955 F Medical Date Time Provider Department Center 10/30/21 10:00 AM RICK FENGWTania During your visit today, we recorded the following inf ormation about you: Pulse Respiration 25(OH)D3 [facility] on 10-23-2021 25-hydroxyvitamin D3 [Mass/Vol] 48.0 ng/mL Normal 31.0-80.0 [facility] Comment on above: Order Comment: Specimen Type : BLOOD SPECIMENOrdering Facility: [facility] Address: [address] [id number] Result Comment: Classificati on of 25 [place] Vitamin D status: Deficiency/Insufficiency: < or = 30 ng/ml. Sufficiency/Optimal Levels: 31-80 ng/mL Toxicity: > 100 ng/mL. Test performed by chemilumin escent immunoassay. Performed By: #### 1989-3 ## ##[facility] LABCLIA [id number] [facility] DESK [id number] [place] [address] [place] CBC W Auto Differential panel (Bld) on 10-23-2021 Basophils (Bld) [#/Vol] 0.08 10*3/uL Normal <0.11 [facility] Comment on above: Order Comment: Specimen Type : BLOOD SPECIMENOrdering Facility: [facility] Address: [address] [place] [address] Performed By: #### 21881-8 # ###[facility] LABCLIA [id number] [place] [address] [place] Basophils/100 WBC (Bld) 0.8 % Normal [facility] Comment on above: Order Comment: Specimen Type : BLOOD SPECIMENOrdering Facility: [facility] Address: [address] [place], [place] [address] Performed By: #### 46517-7 # ###[facility] LABCLIA [id number] [place] [address] [place] Differential cell count method Nom (Bld) Auto Normal [facility] Comment on above: Order Comment: Specimen Type : BLOOD SPECIMENOrdering Facility: [facility] Address: [address] [place], [place] [address] Performed By: #### 87930-6 # ###[facility] LABCLIA [id number] [place] [address] [place] Eosinophils (Bld) [#/Vol] 0.19 10*3/uL Normal <0.46 [facility] Comment on above: Order Comment: Specimen Type : BLOOD SPECIMENOrdering Facility: [facility] Address: [address] [place], [place] [address] Performed By: #### 47117-2 # ###[facility] LABCLIA [id number] [place] [address] [place] Eosinophils/100 WBC (Bld) 1.8 % Normal [facility] Comment on above: Order Comment: Specimen Type : BLOOD SPECIMENOrdering Facility: [facility] Address: [address] [place], [place] [address] Performed By: #### 33068-3 # ###[facility] LABIA [id number] [place] [address] [place] Erythrocyte distribution width 13.4 % Normal 11.5-15.0 [facility] (RBC) [Ratio] Comment on above: Order Comment: Specimen Type : BLOOD SPECIMENOrdering Facility: [facility] Address: [address] [place], [place] [address] Performed By: #### 91670-3 # ###[facility]PITAL[facility] [id number] [place] [address] [place] Hematocrit (Bld) [Volume fraction] 37.1 % Normal 36.0-[address] [facility] Comment on above: Order Comment: Specimen Type : BLOOD SPECIMENOrdering Facility: [facility] Address: [address] [place], [place] [address] Performed By: #### 64941-9 # ###[facility]ITAL[facility] [id number] [place] [address] [place] Hemoglobin (Bld) [Mass/Vol] 10.8 g/dL Low 11.5-15.5 [facility] Comment on above: Order Comment: Specimen Type : BLOOD SPECIMENOrdering Facility: [facility] Address: [address] [place], [place] [address] Performed By: #### 85319-6 # ###[facility] LABIA [id number] [place] [address] [place] IMMATURE GRAN % 0.6 % Normal [facility] Comment on above: Order Comment: Specimen Type : BLOOD SPECIMENOrdering Facility: [facility] Address: [address] [place] [address] Performed By: #### 16470-9 # ###[facility] LABIA [id number] [place] [address] [place] IMMATURE GRAN ABS 0.06 k/uL Normal <0.10 [facility] Comment on above: Order Comment: Specimen Type : BLOOD SPECIMENOrdering Facility: [facility] Address: [address] [place], [place] [address] Performed By: #### 97734-7 # ###[facility] LABCLIA [id number] [place] [address] [place] Lymphocytes (Bld) [#/Vol] 1.52 10*3/uL Normal 1.00-4.00 [facility] Comment on above: Order Comment: Specimen Type : BLOOD SPECIMENOrdering Facility: [facility] Address: [address] [place], [place] [address] Performed By: #### 78975-6 # ###[facility] LABIA [id number] [place] [address] [place] Lymphocytes/100 WBC (Bld) 14.4 % Normal [facility] Comment on above: Order Comment: Specimen Type : BLOOD SPECIMENOrdering Facility: [facility] Address: [address] [place], [place] [address] Performed By: #### 00644-7 # ###[facility] LABCLIA [id number] [place] [address] [place] MCH (RBC) [Entitic mass] 30.4 pg Normal 26.0-34.0 [facility] Comment on above: Order Comment: Specimen Type : BLOOD SPECIMENOrdering Facility: [facility] Address: [address] [place], [place] [address] Performed By: #### 77656-2 # ###[facility] LABIA [id number] [place] [address] [place] MCHC (RBC) [Mass/Vol] 29.1 g/dL Low 30.5-36.0 [facility] Comment on above: Order Comment: Specimen Type : BLOOD SPECIMENOrdering Facility: [facility] Address: [address] [place], [place] [address] Performed By: #### 68785-6 # ###[facility] LABIA [id number] [place] [address] [place] MCV (RBC) [Entitic vol] 104.5 fL High 80.0-100.0 [facility] Comment on above: Order Comment: Specimen Type : BLOOD SPECIMENOrdering Facility: [facility] Address: [address] [place], [place] [address] Performed By: #### 70339-3 # ###[facility] LABIA [id number] [place] [address] [place] Monocytes (Bld) [#/Vol] 0.40 10*3/uL Normal <0.87 [facility] Comment on above: Order Comment: Specimen Type : BLOOD SPECIMENOrdering Facility: [facility] Address: [address] [place], [place] [address] Performed By: #### 46574-7 # ###[facility] LABIA [id number] [place] [address] [place] Monocytes/100 WBC (Bld) 3.8 % Normal [facility] Comment on above: Order Comment: Specimen Type : BLOOD SPECIMENOrdering Facility: [facility] Address: [address] [place], [place] [address] Performed By: #### 35027-3 # ###[facility] LABIA [id number] [place] [address] [place] Neutrophils (Bld) [#/Vol] 8.29 10*3/uL High 1.45-7.50 [facility] Comment on above: Order Comment: Specimen Type : BLOOD SPECIMENOrdering Facility: [facility] Address: [address] [place] [address] Performed By: #### 26994-6 # ###[facility] LABIA [id number] [place] [address] [place] Neutrophils/100 WBC (Bld) 78.6 % Normal Cl [facility] Comment on above: Order Comment: Specimen Type : BLOOD SPECIMENOrdering Facility: [facility] Address: [address] [place], [place] [address] Performed By: #### 69521-1 # ###[facility] LABCLIA [id number] [place] [address] [place] Nucleated RBC (Bld) [#/Vol] 10*3/uL Normal <0.01 [facility] Comment on above: Order Comment: Specimen Type : BLOOD SPECIMENOrdering Facility: [facility] Address: [address] [place], [place] [address] Performed By: #### 39394-5 # ###[facility] LABIA [id number] [place] [address] [place] Nucleated RBC/100 WBC (Bld) [Ratio] 0.0 /[address] [facility] Comment on above: Order Comment: Specimen Type : BLOOD SPECIMENOrdering Facility: [facility] Address: [address] [place], [place] [address] Performed By: #### 40753-9 # ###[facility] LABIA [id number] [place] [address] [place] Platelet mean volume (Bld) 10.1 fL Normal 9.0-12.7 C [facility] [Entitic vol] Comment on above: Order Comment: Specimen Type : BLOOD SPECIMENOrdering Facility: [facility] Address: [address] [place], [place] [address] Performed By: #### 24194-7 # ###[facility] LABIA [id number] [place] [address] [place] Platelets (Bld) [#/Vol] 360 10*3/uL Normal 150-400 [facility] Comment on above: Order Comment: Specimen Type : BLOOD SPECIMENOrdering Facility: [facility] Address: [address] [place] [address] Performed By: #### 06305-6 # ###[facility] [id number] [address] [place] RBC (Bld) [#/Vol] 3.55 10*6/uL Low 3.90-5.20 [facility] Comment on above: Order Comment: Specimen Type : BLOOD SPECIMENOrdering Facility: [facility] Address: [address] [place] [address] Performed By: #### 63246-5 # ###[facility] [id number] [address] OF [place] WBC (Bld) [#/Vol] 10.54 10*3/uL Normal 3.70-11.00 [facility] Comment on above: Order Comment: Specimen Type : BLOOD SPECIMENOrdering Facility: [facility] Address: [address] [place] [address] Performed By: #### 90047-1 # ###[facility] [id number] [address] CNPN on 10-23-2021 CNPN Telephone ([facility]) Normal [place] VIVIANA Beverly ([id number]) 1955 F Medical Date Time Provider Department Center 10/23/21 ASIA CALDERÓN During your visit today, we recorded the following inf ormation about you: Dixie Tay [place] [facility] 10/23/2021 10:28 AM Signed [facility] APPROVED NO PA REQ [id number] 11.10.2021 - 12 iDxie [place] P[facility] Allergies As of Date: 10/23/2021 Noted Allergy Reactio n RAGWEED 03/10/2011 14 - Other: See Comments TREES 03/10/2011 14 - Other: See Comments Date Reviewed: 09/23/2021 Reviewed by: Leslie Walker Ma - Fully Assessed Reason for Visit: APPROVED-NO RICARDO CHOI [Other] Cmt: Orencia APPROVED NO RICARDO CHOI [id number] 11.10.2021 - 11.10.2022 12 Prescriptions as of [...] 08/25/2018 Lung nodule, multiple [R91.8] 01/03/2017 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 Comment on above: Order Comment: Specimen Type : BLOOD SPECIMENOrdering Facility: [facility] Address: [address] [place] [address] Performed By: #### 52251-3 # ###[facility] LABCLIA [id number] [place] [address] [place] ALP [Catalytic activity/Vol] 107 U/L Normal 34-123 [facility] Comment on above: Order Comment: Specimen Type : BLOOD SPECIMENOrdering Facility: [facility] Address: [address] [place] [address] Performed By: #### 85600-7 # ###[facility] LABCLIA [id number] [place] [address] [place] ALT [Catalytic activity/Vol] 7 U/L Normal 7-38 [facility] Comment on above: Order Comment: Specimen Type : BLOOD SPECIMENOrdering Facility: [facility] Address: [address] Performed By: #### 08119-4 # ###[facility] LABCLIA [id number] [place] [address] [place] Anion gap [Moles/Vol] 13 mmol/L Normal 9-18 [facility] Comment on above: Order Comment: Specimen Type : BLOOD SPECIMENOrdering Facility: [facility] Address: [address] [place], [place] [address] Performed By: #### 46098-9 # ###[facility] LABCLIA [id number] [place] [address] [place] AST [Catalytic activity/Vol] 14 U/L Normal 13-35 [facility] Comment on above: Order Comment: Specimen Type : BLOOD SPECIMENOrdering Facility: [facility] Address: [address] [place], [place] [address] Performed By: #### 29231-7 # ###[facility] LABCLIA [id number] [place] [address] [place] Bilirubin [Mass/Vol] 0.2 mg/dL Normal 0.2-1.3 [facility] Comment on above: Order Comment: Specimen Type : BLOOD SPECIMENOrdering Facility: [facility] Address: [address] Performed By: #### 27248-4 # ###[facility] LABCLIA [id number] [place] [address] [place] Calcium [Mass/Vol] 9.3 mg/dL Normal 8.5-10.2 [facility] Comment on above: Order Comment: Specimen Type : BLOOD SPECIMENOrdering Facility: [facility] Address: [address] [place], [place] [address] Performed By: #### 84332-3 # ###[facility] LABCLIA [id number] [place] [address] [place] Chloride [Moles/Vol] 98 mmol/L Normal 97-105 [facility] Comment on above: Order Comment: Specimen Type : BLOOD SPECIMENOrdering Facility: [facility] Address: [address] [place] [address] Performed By: #### 11663-4 # ###[facility] LABCLIA [id number] [place] [address] [place] CO2 [Moles/Vol] 25 mmol/L Normal 22-30 [facility] Comment on above: Order Comment: Specimen Type : BLOOD SPECIMENOrdering Facility: [facility] Address: [address] [place] [address] Performed By: #### 70014-8 # ###[facility] LABIA [id number] [place] [address] [place] Creatinine [Mass/Vol] 0.70 mg/dL Normal 0.58-0.96 [facility] Comment on above: Order Comment: Specimen Type : BLOOD SPECIMENOrdering Facility: [facility] Address: [address] [place] [address] Performed By: #### 21913-7 # ###[facility] LABIA [id number] [address] [place] ESTIMATED GLOMERULAR 97 mL/min/1.73m??? Normal >=60 C [facility] FILTRATION RATE Comment on above: Order Comment: Specimen Type : BLOOD SPECIMENOrdering Facility: [facility] Address: [address] [place] [address] Result Comment: Estimated Gl omerular Filtration Rate [...] accurately reflect actual GFR. Performed By: #### 95699-5 # ###[facility] LABCLIA [id number] [place] [address] [place] Glucose [Mass/Vol] 136 mg/dL High 74-99 [facility] Comment on above: Order Comment: Specimen Type : BLOOD SPECIMENOrdering Facility: [facility] Address: [address] [place] [address] Result Comment: The [place] Diabetes Association (ADA) provides guidance for cutoff [...] for diagnosis of diabetes. Reference: Standards of [facility] Care in Diabetes 2016, [place] [employer]. Diabetes Care. 2016.39(Suppl 1). Performed By: #### 00022-5 # ###[facility] LABIA [id number] [place] [address] [place] Potassium [Moles/Vol] 4.1 mmol/L Normal 3.7-5.1 [facility] Comment on above: Order Comment: Specimen Type : BLOOD SPECIMENOrdering Facility: [facility] Address: [address] [id number] Performed By: #### 84535-1 # ###[facility] LABIA [id number] [place] [address] [place] Protein [Mass/Vol] 7.3 g/dL Normal 6.3-8.0 [facility] Comment on above: Order Comment: Specimen Type : BLOOD SPECIMENOrdering Facility: [facility] Address: [address] Performed By: #### 38631-3 # ###[facility] LABIA [id number] [place] [address] [place] Sodium [Moles/Vol] 136 mmol/L Normal 136-144 [facility] Comment on above: Order Comment: Specimen Type : BLOOD SPECIMENOrdering Facility: [facility] Address: [address] [place] [address] Performed By: #### 58348-8 # ###[facility] LABIA [id number] [place] [address] [place] Urea nitrogen [Mass/Vol] 12 mg/dL Normal 7-21 [facility] Comment on above: Order Comment: Specimen Type : BLOOD SPECIMENOrdering Facility: [facility] Address: [address] [place] [address] Performed By: #### 82415-8 # ###[facility] LABIA [id number] [address] [place] CNPN on 10-10-2021 CNPN Telephone (FAMPWS) [facility] VIVIANA SANTANA ([id number]) 1955 [facility] Date Time Provider Department 10/10/21 [facility] During your visit today, we recorded [...] PA-C 10/10/2021 2:03 PM Signed Printed Thanks, ADNREA Almanza Ma 10/10/2021 4:06 PM Signed Letter [...] 08/25/2018 Lung nodule, multiple [R91.8] 01/03/2017 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] 05/19/2017 05/19/2017 Iatrogenic adrenal insufficiency (HCC) [E27.49] 2017 Chronic respiratory failure with hypoxia (HCC) *2017 Rheumatoid arthritis involving multiple sites w*2017 detention current use of immunosuppressive drug*2017 Paroxysmal atrial [...] CNOV Office Visit (FAMPWS) Normal [facility] VIVIANA SANTANA ([id number]) 1955 [facility] Date Time Provider Department 09/23/21 2:40 PM [facility] During your visit today, we recorded [...] 1.00 - 4.00 k/uL 1.45 2.11 1.19 Collin% % 3.8 5.9 4.2 Abs [place] <0.87 k/uL 0.58 0.56 0.44 Eosin% % [...] ng/mL 30.0 - 10 0.0 ng/mL [facility] CBC W Auto Differential panel (Bld) on 09-18-2021 Basophils (Bld) [#/Vol] 0.09 10*3/uL Normal <0.11 [facility] Comment on above: Order Comment: Specimen Type : BLOOD SPECIMENOrdering Facility: [facility] Address: [address] [place] [address] Performed By: #### 45257-1 # ###[facility] LABORATORYCLIA [id number] [place] [address] [place] Basophils/100 WBC (Bld) 0.9 % Normal [facility] Comment on above: Order Comment: Specimen Type : BLOOD SPECIMENOrdering Facility: [facility] Address: [address] [place] [address] Performed By: #### 63713-3 # ###[facility]ORATORYCLIA [id number] [facility] ENCOSHOCTON [facility] MEDICAL CENTERRON, [address] Differential cell count method Nom (Bld) Auto Normal [facility] Comment on above: Order Comment: Specimen Type : BLOOD SPECIMENOrdering Facility: [facility] Address: [facility] [place] [address] Performed By: #### 71627-3 # ###[facility]ORATORYCLIA [id number] [facility] EN[address] Eosinophils (Bld) [#/Vol] 0.30 10*3/uL Normal <0.46 [facility] Comment on above: Order Comment: Specimen Type : BLOOD SPECIMENOrdering Facility: [facility] Address: [address] [place] [address] Performed By: #### 81061-8 # ###[facility] LABORATORYCLIA [id number] [address] Eosinophils/100 WBC (Bld) 2.9 % Normal [facility] Comment on above: Order Comment: Specimen Type : BLOOD SPECIMENOrdering Facility: [facility] Address: [address] [place] [address] Performed By: #### 63909-4 # ###[facility]ORATORYCLIA [id number] [address] Erythrocyte distribution width 13.4 % Normal 11.5-15.0 [facility] (RBC) [Ratio] Comment on above: Order Comment: Specimen Type : BLOOD SPECIMENOrdering Facility: [facility] Address: [address] [place] [address] Performed By: #### 28008-7 # ###[facility]ORATORYCLIA [id number] [address] Hematocrit (Bld) [Volume 37.9 % Normal 36.0-46.0 [facility] fraction] Comment on above: Order Comment: Specimen Type : BLOOD SPECIMENOrdering Facility: [facility] Address: [address] [place] [address] Performed By: #### 83403-3 # ###[facility]ORATORYCLIA [id number] [facility] [place], [address] [place] Hemoglobin (Bld) [Mass/Vol] 11.5 g/dL Normal 11.5-15.5 [facility] Comment on above: Order Comment: Specimen Type : BLOOD SPECIMENOrdering Facility: [facility] Address: [address] [place] [address] Performed By: #### 44671-3 # ###[facility] LABORATORYCLIA [id number] [facility], [address] IMMATURE GRAN % 0.3 % Normal [facility] Comment on above: Order Comment: Specimen Type : BLOOD SPECIMENOrdering Facility: [facility] Address: [address] [place] [address] Performed By: #### 25207-0 # ###[facility] LABORATORYCLIA [id number] [facility] ENUEMDRON, [address] OF [facility] IMMATURE GRAN ABS 0.03 k/uL Normal <0.10 [facility] Comment on above: Order Comment: Specimen Type : BLOOD SPECIMENOrdering Facility: [facility] Address: [address] [place] [address] Performed By: #### 79766-0 # ###[facility] LABORATORYCLIA [id number] [facility] [place], [address] [place] Lymphocytes (Bld) [#/Vol] 1.19 10*3/uL Normal 1.00-4.00 [facility] Comment on above: Order Comment: Specimen Type : BLOOD SPECIMENOrdering Facility: [facility] Address: [address] [place] [address] Performed By: #### 16840-0 # ###[facility]ORATORYCLIA [id number] [facility] [place], [address] [place] Lymphocytes/100 WBC (Bld) 11.5 % Normal [facility] Comment on above: Order Comment: Specimen Type : BLOOD SPECIMENOrdering Facility: [facility] Address: [address] [place] [address] Performed By: #### 50006-0 # ###[facility] LABORATORYCLIA [id number] [facility], [address] MCH (RBC) [Entitic mass] 30.6 pg Normal 26.0-34.0 [facility] Comment on above: Order Comment: Specimen Type : BLOOD SPECIMENOrdering Facility: [facility] Address: [address] [place] [address] Performed By: #### 29218-5 # ###[facility] LABORATORYCLIA [id number] [facility], [address] [place] MCHC (RBC) [Mass/Vol] 30.3 g/dL Low 30.5-36.0 [facility] Comment on above: Order Comment: Specimen Type : BLOOD SPECIMENOrdering Facility: [facility] Address: [address] [place] [address] Performed By: #### 01223-2 # ###[facility] LABORATORYCLIA [id number] [facility], [address] [place] MCV (RBC) [Entitic vol] 100.8 fL High 80.0-100.0 [facility] Comment on above: Order Comment: Specimen Type : BLOOD SPECIMENOrdering Facility: [facility] Address: [address] [place] [address] Performed By: #### 11805-5 # ###[facility] LABORATORYCLIA [id number] [facility] Monocytes (Bld) [#/Vol] 0.44 10*3/uL Normal <0.87 [facility] Comment on above: Order Comment: Specimen Type : BLOOD SPECIMENOrdering Facility: [facility] Address: [address] [place] [address] Performed By: #### 16558-9 # ###[facility] LABORATORYCLIA [id number] [facility] [place] [id number] [place] [address] [place] Monocytes/100 WBC (Bld) 4.2 % Normal [facility] Comment on above: Order Comment: Specimen Type : BLOOD SPECIMENOrdering Facility: [facility] Address: [facility] [place] [address] Performed By: #### 56490-6 # ###[facility]ORATORYCLIA [id number] [facility] [place], [place] [address] [place] Neutrophils (Bld) [#/Vol] 8.31 10*3/uL High 1.45-7.50 [facility] Comment on above: Order Comment: Specimen Type : BLOOD SPECIMENOrdering Facility: [facility] Address: [address] [place] [address] Performed By: #### 00622-6 # ###[facility]ORATORYCLIA [id number] [facility], [address] [place] Neutrophils/100 WBC (Bld) 80.2 % Normal [facility] Comment on above: Order Comment: Specimen Type : BLOOD SPECIMENOrdering Facility: [facility] Address: [address] [place] [address] Performed By: #### 42602-3 # ###[facility]ORATORYCLIA [id number] [facility] [place], [address] [place] Nucleated RBC (Bld) [#/Vol] 10*3/uL Normal <0.01 [facility] Comment on above: Order Comment: Specimen Type : BLOOD SPECIMENOrdering Facility: [facility] Address: [address] [place] [address] Performed By: #### 44241-6 # ###[facility]ORATORYCLIA [id number] [facility] [place], [address] [place] Nucleated RBC/100 WBC (Bld) 0.0 /100 WBC Normal [facility] [Ratio] Comment on above: Order Comment: Specimen Type : BLOOD SPECIMENOrdering Facility: [facility] Address: [address] [place] [address] Performed By: #### 75336-4 # ###[facility] LABORATORYCLIA [id number] [facility] [place] [id number] [place] [address] Platelet mean volume (Bld) 9.8 fL Normal 9.0-12.7 [facility] [Entitic vol] Comment on above: Order Comment: Specimen Type : BLOOD SPECIMENOrdering Facility: [facility] Address: [address] [place] [address] Performed By: #### 00535-8 # ###[facility] LABORATORYCLIA [id number] [facility] [place], [address] OF [facility] Platelets (Bld) [#/Vol] 334 10*3/uL Normal 150-400 [facility] Comment on above: Order Comment: Specimen Type : BLOOD SPECIMENOrdering Facility: [facility] Address: [address] [place] [address] Performed By: #### 22242-0 # ###[facility] LABORATORYCLIA [id number] [facility] [place], [address] OF [facility] RBC (Bld) [#/Vol] 3.76 10*6/uL Low 3.90-5.20 [facility] Comment on above: Order Comment: Specimen Type : BLOOD SPECIMENOrdering Facility: [facility] Address: [address] [place] [address] Performed By: #### 75602-5 # ###[facility] LABORATORYCLIA [id number] [facility] [place], [address] [place] WBC (Bld) [#/Vol] 10.36 10*3/uL Normal 3.70-11.00 [facility] Comment on above: Order Comment: Specimen Type : BLOOD SPECIMENOrdering Facility: [facility] Address: [address] [place], [place] [address] Performed By: #### 66603-2 # ###[facility] LABORATORYCLIA [id number] [facility] [place], [place] [id number] [place] [address] [place] Abs Immature Gran 0.03 k/uL <0.10 k/uL [facility] Basophils (Bld) [#/Vol] 0.09 10*3/uL <0.11 k/uL [facility] Basophils/100 WBC (Bld) 0.9 % [facility] Differential cell count method Auto [facility] Nom (Bld) Eosinophils (Bld) [#/Vol] 0.30 10*3/uL <0.46 k/uL [facility] Eosinophils/100 WBC (Bld) 2.9 % [facility] Erythrocyte distribution width 13.4 % 11.5 - 15. 0 % [facility] (RBC) [Ratio] Hematocrit (Bld) [Volume 37.9 % 36.0 - 46.0 % [facility] fraction] Hemoglobin (Bld) [Mass/Vol] 11.5 g/dL 11.5 - 15.5 g /dL [facility] Immature Gran % 0.3 % [facility] inic Lymphocytes (Bld) [#/Vol] 1.19 10*3/uL 1.00 - 4.00 k/u L [facility] Lymphocytes/100 WBC (Bld) 11.5 % [facility] MCH (RBC) [Entitic mass] 30.6 pg 26.0 - 34.0 pg [facility] MCHC (RBC) [Mass/Vol] 30.3 g/dL Low 30.5 - 36.0 g/dL [facility] MCV (RBC) [Entitic vol] 100.8 fL High 80.0 - 100.0 fL [facility] Monocytes (Bld) [#/Vol] 0.44 10*3/uL <0.87 k/uL [facility] Monocytes/100 WBC (Bld) 4.2 % [facility] Neutrophils (Bld) [#/Vol] 8.31 10*3/uL High 1.45 - 7.50 k/u L [facility] Neutrophils/100 WBC (Bld) 80.2 % [facility] Nucleated RBC (Bld) [#/Vol] 10*3/uL <0.01 k/uL [facility] Nucleated RBC/100 WBC (Bld) 0.0 /[address] [facility] [Ratio] Platelet mean volume (Bld) 9.8 fL 9.0 - 12.7 fL [facility] [Entitic vol] Platelets (Bld) [#/Vol] 334 10*3/uL 150 - 400 k/uL [facility] RBC (Bld) [#/Vol] 3.76 10*6/uL Low 3.90 - 5.20 m/uL [facility] WBC (Bld) [#/Vol] 10.36 10*3/uL 3.70 - 11.00 k/uL [facility] CNOV on 09-18-2021 CNOV Office Visit (RHBATH) Normal [facility] VIVIANA SANTANA ([id number]) 1955 F Medical Date Time Provider Department Center 09/18/21 11:20 AM [facility] During your visit today, we recorded [...] with RA 2017. She was admitted at [facility] - double pneumonia, RA. She was [...] DM2, polyneuropathy. She follows with pulm in [place]. RA, chronic steroids, adrenal insuff ? Family [...] not included)... 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] 05/19/2017 05/19/2017 Iatrogenic adrenal insufficiency (HCC) [E27.49] 2017 Chronic respiratory failure with hypoxia (HCC) *2017 Rheumatoid arthritis involving multiple sites w*2017 detention current use of immunosuppressive drug*2017 Paroxysmal atrial [...] 3.5 g/dL Low 3.9 - 4.9 g/dL [facility] ALP [Catalytic 113 U/L 34 - 123 U/L [facility] activity/Vol] ALT With P-5'-P 6 U/L Low 7 - 38 U/L [facility] [Catalytic activity/Vol] Anion gap [Moles/Vol] 10 mmol/L 9 - 18 mmol/L [facility] AST With P-5'-P 16 U/L 13 - 35 U/L [facility] [Catalytic activity/Vol] Bilirubin [Mass/Vol] 0.3 mg/dL 0.2 - 1.3 mg/dL [facility] Calcium [Mass/Vol] 9.3 mg/dL 8.5 - 10.2 mg/dL [facility] Chloride [Moles/Vol] 99 mmol/L 97 - 105 mmol/L [facility] CO2 [Moles/Vol] 28 mmol/L 22 - 30 mmol/L [facility] Creatinine [Mass/Vol] 0.79 mg/dL 0.58 - 0.96 mg/dL C [facility] Estimated Glomerular 84 mL/min/1.73m >=60 mL/min/1.73m [facility] Filtration Rate Glucose [Mass/Vol] 104 mg/dL High 74 - 99 mg/dL [facility] Potassium [Moles/Vol] 4.3 mmol/L 3.7 - 5.1 mmol/L Cl [facility] Protein [Mass/Vol] 7.1 g/dL 6.3 - 8.0 g/dL [facility] Sodium [Moles/Vol] 137 mmol/L 136 - 144 mmol/L [facility] Urea nitrogen [Mass/Vol] 12 mg/dL 7 - 21 mg/dL [facility] Albumin [Mass/Vol] 3.5 g/dL Low 3.9-4.9 [facility] Comment on above: Order Comment: Specimen Type : BLOOD SPECIMENOrdering Facility: [facility] Address: [address] [place] [address] Performed By: #### 91093-6, IRON, FERR ####[facility] LABORATORYCLIA [id number] [address] ALP [Catalytic activity/Vol] 113 U/L Normal 34-123 [facility] Comment on above: Order Comment: Specimen Type : BLOOD SPECIMENOrdering Facility: [facility] Address: [address] [place] [address] Performed By: #### 42291-5, IRON, FERR ####[facility] LABORATORYCLIA [id number] [address] OF [facility] ALT With P-5'-P [Catalytic activity/Vol] 6 U/L Low 7-38 [facility] Comment on above: Order Comment: Specimen Type : BLOOD SPECIMENOrdering Facility: [facility] Address: [address] [place] [address] Performed By: #### 68719-0, IRON, FERR ####[facility] LABORATORYCLIA [id number] [address] Anion gap [Moles/Vol] 10 mmol/L Normal 9-18 [facility] Comment on above: Order Comment: Specimen Type : BLOOD SPECIMENOrdering Facility: [facility] Address: [address] [place] [address] Performed By: #### 87232-3, IRON, FERR ####[facility] LABORATORYCLIA [id number] [address] AST With P-5'-P [Catalytic 16 U/L Normal 13-35 A [facility] activity/Vol] Comment on above: Order Comment: Specimen Type : BLOOD SPECIMENOrdering Facility: [facility] Address: [address] [place] [address] Performed By: #### 20184-0, IRON, FERR ####[facility] LABORATORYCLIA [id number] [address] OF [facility] Bilirubin [Mass/Vol] 0.3 mg/dL Normal 0.2-1.3 [facility] Comment on above: Order Comment: Specimen Type : BLOOD SPECIMENOrdering Facility: [facility] Address: [address] [place] [address] Performed By: #### 26413-8, IRON, FERR ####[facility]ORATORYCLIA [id number] [address] OF [facility] Calcium [Mass/Vol] 9.3 mg/dL Normal 8.5-10.2 [facility] Comment on above: Order Comment: Specimen Type : BLOOD SPECIMENOrdering Facility: [facility] Address: [address] [place] [address] Performed By: #### 74882-7, IRON, FERR ####[facility]ORATORYCLIA [id number] A ABHI [address] Chloride [Moles/Vol] 99 mmol/L Normal 97-105 [facility] Comment on above: Order Comment: Specimen Type : BLOOD SPECIMENOrdering Facility: [facility] Address: [address] [place] [address] Performed By: #### 78640-3, IRON, FERR ####[facility] LABORATORYCLIA [id number] [address] OF [facility] CO2 [Moles/Vol] 28 mmol/L Normal 22-30 [facility] Comment on above: Order Comment: Specimen Type : BLOOD SPECIMENOrdering Facility: [facility] Address: [address] [place] [address] Performed By: #### 53471-4, IRON, FERR ####[facility] LABORATORYCLIA [id number] [address] Creatinine [Mass/Vol] 0.79 mg/dL Normal 0.58-0.96 [facility] Comment on above: Order Comment: Specimen Type : BLOOD SPECIMENOrdering Facility: [facility] Address: [address] [place] [address] Performed By: #### 62386-3, IRON, FERR ####[facility] LABORATORYCLIA [id number] [address] ESTIMATED GLOMERULAR 84 mL/min/1.73m??? Normal >=60 A [facility] Comment on above: Order Comment: Specimen Type : BLOOD SPECIMENOrdering Facility: [facility] Address: [address] [place] [address] Result Comment: Estimated Gl omerular Filtration Rate [...] accurately reflect actual GFR. Performed By: #### 64035-9, IRON, FERR ####[facility] LABORATORYCLIA [id number] [place] [address] [place] Glucose [Mass/Vol] 104 mg/dL High 74-99 [facility] Comment on above: Order Comment: Specimen Type : BLOOD SPECIMENOrdering Facility: [facility] Address: [address] [place] [address] Result Comment: The [place] [employer] (ADA) provides guidance for cutoff [...] for diagnosis of diabetes. Reference: Standards of [facility] Care in Diabetes 2016, [place] [employer]. Diabetes Care. 2016.39(Suppl 1). Performed By: #### 64337-4, IRON, FERR ####[facility] LABORATORYCLIA [id number] [place] [address] [place] Potassium [Moles/Vol] 4.3 mmol/L Normal 3.7-5.1 [facility] Comment on above: Order Comment: Specimen Type : BLOOD SPECIMENOrdering Facility: [facility] Address: [address] [address] Performed By: #### 11848-5, IRON, FERR ####[facility] LABORATORYCLIA [id number] [place] [address] [place] Protein [Mass/Vol] 7.1 g/dL Normal 6.3-8.0 [facility] Comment on above: Order Comment: Specimen Type : BLOOD SPECIMENOrdering Facility: [facility] Address: [address] [address] Performed By: #### 90461-7, IRON, FERR ####[facility] LABORATORYCLIA [id number] [place] [address] [place] Sodium [Moles/Vol] 137 mmol/L Normal 136-144 [facility] Comment on above: Order Comment: Specimen Type : BLOOD SPECIMENOrdering Facility: [facility] Address: [address] [place] [address] Performed By: #### 73976-3, IRON, FERR ####[facility] LABORATORYCLIA [id number] [place] [address] [place] Urea nitrogen [Mass/Vol] 12 mg/dL Normal 7-21 [facility] Comment on above: Order Comment: Specimen Type : BLOOD SPECIMENOrdering Facility: [facility] Address: [address] [place] [address] Performed By: #### 96063-4, IRON, FERR ####[facility]ITAL[facility] [id number] [place] [address] [place] FERRITIN BLD on 09-18-2021 Ferritin [Mass/Vol] 489.6 ng/mL High 14.7 - 205.1 ng/mL [facility] Ferritin [Mass/Vol] 489.6 ng/mL High 14.7-205.1 [facility] Comment on above: Order Comment: Specimen Type : BLOOD SPECIMENOrdering Facility: [facility] Address: [address] [place] [address] Performed By: #### 99499-3, IRON, FERR ####[facility] LABORATORYCLIA [id number] [place] [address] [place] IRON + TIBC on 09-18-2021 Iron [Mass/Vol] 31 ug/dL Low 41 - 186 ug/dL [facility] Iron binding capacity 190 ug/dL Low 232 - 386 ug/dL [facility] [Mass/Vol] Iron saturation [Mass 16 % 15 - 57 % [facility] fraction] Iron [Mass/Vol] 31 ug/dL Low 41-186 [facility] Comment on above: Order Comment: Specimen Type : BLOOD SPECIMENOrdering Facility: [facility] Address: [address] [place] [address] Performed By: #### 19645-6, IRON, FERR ####[facility] LABORATORYCLIA [id number] [address] [place] Iron binding capacity [Mass/Vol] 190 ug/dL Low 232-386 [facility] Comment on above: Order Comment: Specimen Type : BLOOD SPECIMENOrdering Facility: [facility] Address: [address] [place] [address] Performed By: #### 15030-8, IRON, FERR ####[facility] LABORATORYCLIA [id number] [address] STATES OF [facility] Iron saturation [Mass fraction] 16 % Normal 15-57 [facility] Comment on above: Order Comment: Specimen Type : BLOOD SPECIMENOrdering Facility: [facility] Address: [address] [place] [address] Performed By: #### 04691-9, IRON, FERR ####[facility] LABORATORYCLIA [id number] [address] [place] VITAMIN D 25 HYDROXY on 09-18-2021 25-hydroxyvitamin D3 [Mass/Vol] 91.3 ng/mL Normal 30.0-100. 0 [facility] Comment on above: Order Comment: Specimen Type : BLOOD SPECIMENOrdering Facility: [facility] Address: [address] [place] [address] Result Comment: Classificati on of 25 [place] Vitamin D status: Deficiency: <= 20.0 ng/ml. Insufficientcy: 21.0-29.0 ng /ml. Sufficiency: >= 30.0 ng/ml. Performed By: #### VITD #### [facility] LABORATORYCLIA [id number] [address] [place] CBC W Auto Differential panel (Bld) on 09-09-2021 Basophils (Bld) [#/Vol] 0.11 10*3/uL High <0.11 [facility] Comment on above: Order Comment: Specimen Type : BLOOD SPECIMENOrdering Facility: [facility] Address: [address] [place], [place] [address] Performed By: #### 25255-8 # ###[facility] LABCLIA [id number] [place] [address] [place] Basophils/100 WBC (Bld) 1.2 % Normal [facility] Comment on above: Order Comment: Specimen Type : BLOOD SPECIMENOrdering Facility: [facility] Address: [address] [place], [place] [address] Performed By: #### 50894-4 # ###[facility] LABCLIA [id number] [place] [address] [place] Differential cell count method Nom (Bld) Auto Normal [facility] Comment on above: Order Comment: Specimen Type : BLOOD SPECIMENOrdering Facility: [facility] Address: [address] [place], [place] [address] Performed By: #### 59736-5 # ###[facility] LABCLIA [id number] [place] [address] [place] Eosinophils (Bld) [#/Vol] 0.41 10*3/uL Normal <0.46 [facility] Comment on above: Order Comment: Specimen Type : BLOOD SPECIMENOrdering Facility: [facility] Address: [address] [place], [place] [address] Performed By: #### 62718-7 # ###[facility] LABCLIA [id number] [address] [place] Eosinophils/100 WBC (Bld) 4.3 % Normal [facility] Comment on above: Order Comment: Specimen Type : BLOOD SPECIMENOrdering Facility: [facility] Address: [address] [place] [address] Performed By: #### 79018-6 # ###[facility] LABCLIA [id number] [place] [address] [place] Erythrocyte distribution width 13.4 % Normal 11.5-15.0 [facility] (RBC) [Ratio] Comment on above: Order Comment: Specimen Type : BLOOD SPECIMENOrdering Facility: [facility] Address: [address] [place], [place] [address] Performed By: #### 31621-4 # ###[facility] LABIA [id number] [place] [address] [place] Hematocrit (Bld) [Volume fraction] 39.3 % Normal 36.0-[address] [facility] Comment on above: Order Comment: Specimen Type : BLOOD SPECIMENOrdering Facility: [facility] Address: [address] [place], [place] [address] Performed By: #### 88863-5 # ###[facility] LABIA [id number] [place] [address] [place] Hemoglobin (Bld) [Mass/Vol] 11.5 g/dL Normal 11.5-15.5 [facility] Comment on above: Order Comment: Specimen Type : BLOOD SPECIMENOrdering Facility: [facility] Address: [address] [place], [place] [address] Performed By: #### 73820-6 # ###[facility] LABIA [id number] [place] [address] [place] IMMATURE GRAN % 0.4 % Normal [facility] Comment on above: Order Comment: Specimen Type : BLOOD SPECIMENOrdering Facility: [facility] Address: [address] [place], [place] [address] Performed By: #### 20875-2 # ###[facility] LABIA [id number] [address] [place] IMMATURE GRAN ABS 0.04 k/uL Normal <0.10 [facility] Comment on above: Order Comment: Specimen Type : BLOOD SPECIMENOrdering Facility: [facility] Address: [address] [place], [place] [address] Performed By: #### 50259-3 # ###[facility] LABCLIA [id number] [place] [address] [place] Lymphocytes (Bld) [#/Vol] 2.11 10*3/uL Normal 1.00-4.00 [facility] Comment on above: Order Comment: Specimen Type : BLOOD SPECIMENOrdering Facility: [facility] Address: [address] [place] [address] Performed By: #### 46091-5 # ###[facility] LABIA [id number] [place] [address] [place] Lymphocytes/100 WBC (Bld) 22.3 % Normal [facility] Comment on above: Order Comment: Specimen Type : BLOOD SPECIMENOrdering Facility: [facility] Address: [address] [place] [address] Performed By: #### 08916-2 # ###[facility] LABIA [id number] [place] [address] [place] MCH (RBC) [Entitic mass] 30.4 pg Normal 26.0-34.0 [facility] Comment on above: Order Comment: Specimen Type : BLOOD SPECIMENOrdering Facility: [facility] Address: [address] [place], [place] [address] Performed By: #### 21060-7 # ###[facility] LABIA [id number] [place] [address] [place] MCHC (RBC) [Mass/Vol] 29.3 g/dL Low 30.5-36.0 [facility] Comment on above: Order Comment: Specimen Type : BLOOD SPECIMENOrdering Facility: [facility] Address: [address] [place], [place] [address] Performed By: #### 68601-9 # ###[facility] LABIA [id number] [place] [address] [place] MCV (RBC) [Entitic vol] 104.0 fL High 80.0-100.0 [facility] Comment on above: Order Comment: Specimen Type : BLOOD SPECIMENOrdering Facility: [facility] Address: [address] [place], [place] [address] Performed By: #### 81172-8 # ###[facility] LABCLIA [id number] [place] [address] [place] Monocytes (Bld) [#/Vol] 0.56 10*3/uL Normal <0.87 [facility] Comment on above: Order Comment: Specimen Type : BLOOD SPECIMENOrdering Facility: [facility] Address: [address] [place], [place] [address] Performed By: #### 97548-6 # ###[facility] LABCLIA [id number] [place] [address] [place] Monocytes/100 WBC (Bld) 5.9 % Normal [facility] Comment on above: Order Comment: Specimen Type : BLOOD SPECIMENOrdering Facility: [facility] Address: [address] [place], [place] [address] Performed By: #### 62580-3 # ###[facility] LABCLIA [id number] [place] [address] [place] Neutrophils (Bld) [#/Vol] 6.25 10*3/uL Normal 1.45-7.50 [facility] Comment on above: Order Comment: Specimen Type : BLOOD SPECIMENOrdering Facility: [facility] Address: [address] [place], [place] [address] Performed By: #### 68823-7 # ###[facility] LABCLIA [id number] [place] [address] [place] Neutrophils/100 WBC (Bld) 65.9 % Normal [facility] Comment on above: Order Comment: Specimen Type : BLOOD SPECIMENOrdering Facility: [facility] Address: [address] [place], [place] [address] Performed By: #### 53104-3 # ###[facility] LABIA [id number] [place] [address] [place] Nucleated RBC (Bld) [#/Vol] 10*3/uL Normal <0.01 [facility] Comment on above: Order Comment: Specimen Type : BLOOD SPECIMENOrdering Facility: [facility] Address: [address] [place] [address] Performed By: #### 19790-9 # ###[facility] LABIA [id number] [place] [address] [place] Nucleated RBC/100 WBC (Bld) [Ratio] 0.0 /[address] [facility] Comment on above: Order Comment: Specimen Type : BLOOD SPECIMENOrdering Facility: [facility] Address: [address] [place] [address] Performed By: #### 44561-4 # ###[facility] [id number] [place] [address] [place] Platelet mean volume (Bld) 10.1 fL Normal 9.0-12.7 C [facility] [Entitic vol] Comment on above: Order Comment: Specimen Type : BLOOD SPECIMENOrdering Facility: [facility] Address: [address] [place] [address] Performed By: #### 26780-8 # ###[facility] LABIA [id number] [place] [address] [place] Platelets (Bld) [#/Vol] 368 10*3/uL Normal 150-400 [facility] Comment on above: Order Comment: Specimen Type : BLOOD SPECIMENOrdering Facility: [facility] Address: [address] [place] [phone] Performed By: #### 79811-0 # ###[facility] LABIA [id number] [place] [address] [place] RBC (Bld) [#/Vol] 3.78 10*6/uL Low 3.90-5.20 [facility] Comment on above: Order Comment: Specimen Type : BLOOD SPECIMENOrdering Facility: [facility] Address: [address] [place] [address] Performed By: #### 43658-9 # ###[facility] LABCLIA [id number] [place] [address] [place] WBC (Bld) [#/Vol] 9.48 10*3/uL Normal 3.70-11.00 [facility] Comment on above: Order Comment: Specimen Type : BLOOD SPECIMENOrdering Facility: [facility] Address: [address] [place], [place] [address] Performed By: #### 89158-3 # ###[facility] LABCLIA [id number] [place] [address] [facility] Comprehensive metabolic 2000 panel on 0 09-09-2021 Albumin [Mass/Vol] 3.5 g/dL Low 3.9-4.9 [facility] Comment on above: Order Comment: Specimen Type : BLOOD SPECIMENOrdering Facility: [facility] Address: [address] [place] [address] Performed By: #### FT4 FERR , 60178-2, 3016-3 ####[facility] LABCLIA [id number] [place] [address] [place] ALP [Catalytic activity/Vol] 114 U/L Normal 34-123 [facility] Comment on above: Order Comment: Specimen Type : BLOOD SPECIMENOrdering Facility: [facility] Address: [address] [place] [phone] Performed By: #### FT4, FERR , 65578-7, 3016-3 ####[facility] LABCLIA [id number] [address] [address] [place] ALT [Catalytic activity/Vol] 6 U/L Low 7-38 [facility] Comment on above: Order Comment: Specimen Type : BLOOD SPECIMENOrdering Facility: [facility] Address: [address] [place] [phone] Performed By: #### MARIELLA PAGE , , 3015-3 ####[facility] LABCLIA [id number] [address] [place] Anion gap [Moles/Vol] 11 mmol/L Normal 9-18 [facility] Comment on above: Order Comment: Specimen Type : BLOOD SPECIMENOrdering Facility: [facility] Address: [address] [place], [place] [address] Performed By: #### MARIELLA PAGE , , 3 ####[facility] LABCLIA [id number] [place] [address] [place] AST [Catalytic activity/Vol] 14 U/L Normal 13-35 [facility] Comment on above: Order Comment: Specimen Type : BLOOD SPECIMENOrdering Facility: [facility] Address: [address] [place], [place] [address] Performed By: #### MARIELLA PAGE , , 3 ####[facility] LABCLIA [id number] [place] [address] [place] Bilirubin [Mass/Vol] 0.2 mg/dL Normal 0.2-1.3 [facility] Comment on above: Order Comment: Specimen Type : BLOOD SPECIMENOrdering Facility: [facility] Address: [address] [place] [phone] Performed By: #### MARIELLA PAGE , , 3 ####[facility] LABCLIA [id number] [address] [address] [place] Calcium [Mass/Vol] 9.2 mg/dL Normal 8.5-10.2 [facility] Comment on above: Order Comment: Specimen Type : BLOOD SPECIMENOrdering Facility: [facility] Address: [address] [place] [address] Performed By: #### MARIELLA PAGE , , 3 ####[facility] LABCLIA [id number] [place] [address] [place] Chloride [Moles/Vol] 99 mmol/L Normal 97-105 [facility] Comment on above: Order Comment: Specimen Type : BLOOD SPECIMENOrdering Facility: [facility] Address: [address] [place], [place] [address] Performed By: #### MARIELLA PAGE , , 3 ####[facility] LABCLIA [id number] [place], [place] [address] [place] CO2 [Moles/Vol] 29 mmol/L Normal 22-30 [facility] Comment on above: Order Comment: Specimen Type : BLOOD SPECIMENOrdering Facility: [facility] Address: [address] [place] [address] Performed By: #### MARIELLA PAGE , , 3 ####[facility] LABCLIA [id number] [place], [place] [address] [place] Creatinine [Mass/Vol] 0.74 mg/dL Normal 0.58-0.96 [facility] Comment on above: Order Comment: Specimen Type : BLOOD SPECIMENOrdering Facility: [facility] Address: [address] [place] [address] Performed By: #### MARIELLA PAGE , , 3 ####[facility] LABCLIA [id number] [place] [address] [place] ESTIMATED GLOMERULAR 90 mL/min/1.73m??? Normal >=60 C [facility] FILTRATION RATE Comment on above: Order Comment: Specimen Type : BLOOD SPECIMENOrdering Facility: [facility] Address: [address] [place] [address] Result Comment: Estimated Gl omerular Filtration Rate [...] GFR. Performed By: #### FT4, FERR , 46303-4, 6-3 ####[facility] LABCLIA [id number] [address] [address] [place] Glucose [Mass/Vol] 103 mg/dL High 74-99 [facility] Comment on above: Order Comment: Specimen Type : BLOOD SPECIMENOrdering Facility: [facility] Address: [address] [place], [place] [address] Result Comment: The [place] Diabetes Association (ADA) provides guidance for cutoff [...] for diagnosis of diabetes. Reference: Standards of [facility] Care in Diabetes 2016, [place] [employer]. Diabetes Care. 2016.39(Suppl 1). Performed By: #### FT4, FERR , 47252-5, 6-3 ####[facility] LABCLIA [id number] [address] [place] Potassium [Moles/Vol] 4.1 mmol/L Normal 3.7-5.1 [facility] Comment on above: Order Comment: Specimen Type : BLOOD SPECIMENOrdering Facility: [facility] Address: [address] [place], [place] [address] Performed By: #### MARIELLA PAGE , 28108-1, 6-3 ####[facility] LABCLIA [id number] [place], [place] [address] [place] Protein [Mass/Vol] 6.9 g/dL Normal 6.3-8.0 [facility] Comment on above: Order Comment: Specimen Type : BLOOD SPECIMENOrdering Facility: [facility] Address: [address] [place], [place] [address] Performed By: #### MARIELLA PAGE , 28845-9, 3015-3 ####[facility] LABCLIA [id number] [address] [place] [address] [place] Sodium [Moles/Vol] 139 mmol/L Normal 136-144 [facility] Comment on above: Order Comment: Specimen Type : BLOOD SPECIMENOrdering Facility: [facility] Address: [address] [place], [place] [address] Performed By: #### MARIELLA PAGE , 26394-9, 3 ####[facility] LABCLIA [id number] [place], [place] [address] [place] Urea nitrogen [Mass/Vol] 12 mg/dL Normal 7-21 [facility] Comment on above: Order Comment: Specimen Type : BLOOD SPECIMENOrdering Facility: [facility] Address: [address] [place], [place] [address] Performed By: #### MARIELLA PAGE , 05589-7, 6-3 ####[facility] LABCLIA [id number] [place], [place] [address] [place] Cortis SerPl-mCnc on 09-09-2021 Cortisol [Mass/Vol] 6.1 ug/dL Normal 4.8-19.5 [facility] Comment on above: Order Comment: Specimen Type : BLOOD SPECIMENOrdering Facility: [facility] Address: [address] [place] [address] Result Comment: Provided ref erence range is from 6-10 AM sample collection time. Cortisol Reference Range: 6- 10 AM = 4.8-19.5 ug/dL, 4-8 PM = 2.5-11.9 ug/dL Performed By: #### 2143-6 ## ##[facility] LABCLIA [id number] [place] [address] [place] [facility] FERRITIN BLD on 09-09-2021 Ferritin [Mass/Vol] 521.0 ng/mL High 14.7-205.1 [facility] Comment on above: Order Comment: Specimen Type : BLOOD SPECIMENOrdering Facility: [facility] Address: [address] [place] [address] Performed By: #### FT4, FERR , 67135-5, 3016-3 ####[facility] LABCLIA [id number] [place] [address] [place] HGB A1C on 09-09-2021 Average glucose Estimated from glycated 105 mg/dL Normal [facility] hemoglobin (Bld) [Mass/Vol] Comment on above: Order Comment: Specimen Type : BLOOD SPECIMENOrdering Facility: [facility] Address: [address] [place] [address] Result Comment: eAG: (Estima meredith average glucose) is a calculated value from HgbA1c and is rep resentative of the average blood glucose level in the last 2- 3 month period. Performed By: #### HBA1C ### #[facility] LABIA [id number] [place] [address] [place] HbA1c (Bld) [Mass fraction] 5.3 % Normal 4.3-5.6 [facility] Comment on above: Order Comment: Specimen Type : BLOOD SPECIMENOrdering Facility: [facility] Address: [address] [place] [address] Result Comment: [place] Ivette betes Association guidelines indicate that patients with HgbA1c in the range 5.7-6.4% are at increased risk for development of diab etes, and intervention by lifestyle modification may be benefici al. HgbA1c greater or equal to 6.5% is considered diagnostic of ivette betes. Performed By: #### HBA1C ### #[facility] LABCLIA [id number] [place] [id number] [place] [facility] T4 FREE/FREE THYROX on 09-09-2021 Free T4 [Mass/Vol] 1.1 ng/dL Normal 0.9-1.7 [facility] Comment on above: Order Comment: Specimen Type : BLOOD SPECIMENOrdering Facility: [facility] Address: [address] [place] [address] Performed By: #### FT4, FERR , 44518-3, 3016-3 ####[facility] LABCLIA [id number] [place] [address] [place] [facility] on 09-09-2021 TSH Qn 0.382 m[IU]/L Normal 0.270-4.200 [facility] Comment on above: Order Comment: Specimen Type : BLOOD SPECIMENOrdering Facility: [facility] Address: [address] [place] [address] Performed By: #### FT4, FERR , 51107-3, 3016-3 ####[facility] LABIA [id number] [place] VITAMIN D 25 HYDROXY on 09-09-2021 25-hydroxyvitamin D3 [Mass/Vol] 38.1 ng/mL Normal 31.0-80.0 [facility] Comment on above: Order Comment: Specimen Type : BLOOD SPECIMENOrdering Facility: [facility] Address: [address] [place], [place] [id number] Result Comment: Classificati on of 25 [place] Vitamin D status: Deficiency/Insufficiency: < or = 30 ng/ml. Sufficiency/Optimal Levels: 31-80 ng/mL Toxicity: > 100 ng/mL. Test performed by chemilumin escent immunoassay. Performed By: #### VITD #### [facility] LABCLIA [id number] [place] [address] [place] on 09-08-2021 CNOV Office Visit (CARDLUIS EDUARDO) [facility] VIVIANA SANTANA ([id number]) 1955 [facility] Date Time Provider Department 09/08/21 3:00 PM YOVANI PIEDRA During your visit today, we recorded the following inf ormation about you: Pulse Blood pressure Weight Height 86/minute 102/58 82.4 kg 1.626 m Yovani Piedra DO 09/08/2021 3:26 PM Signed [facility] Heart and Vascular [place] Sanjiv Sprague Department of Cardiovascula r Medicine [...] respiratory failure again. She did got to [facility] for pneumonia admit in January 2019: Preadmission evaluation: SOB and cough x 2 days. No fe kameron. had URI. Which facility: [facility] Dates of visit: !-02/02/19 Primary Diagnosis/es: [...] majority of her time. She was admitted [facility] in April with sepsis and pneumonia and [...] and bronchiectasis. ?She follows pulmonary at the [facility] now. ?There was a note that they [...] Visit (PULMWS) Normal [facility] VIVIANA Simpson ([id number]) 1955 F [facility] Time Provider Department 08/07/21 2:30 PM JACQUELIN PATEL PULMWS During your visit today, we recorded the following inf ormation about you: Pulse Blood pressure Weight 93/minute 131/77 84.4 kg Jacquelin Patel PA-C 08/07/2021 3:01 PM Signed [facility] Respiratory [place], 08/07/2021: Name: Viviana Santana : 1955 ? [...] wor se with seasonal allergies. Clear to [place] tribe sputum. No hemoptysis. Frequent wheezing. No dyspnea [...] 84.4 kg (186 lb) SpO2 96% B WA 31.93 kg/m? Gen: No acute distress. Cooperative [...] Jacquelin Patel PA-C Referring Provider: JACQUELIN PATEL [[id number]] Allergies As of Date: 08/07/2021 Noted Allergy Reactio n RAGWEED 03/10/2011 14 - Other: See Comments TREES 03/10/2011 14 - Other: See Comments Date Reviewed: 08/07/2021 Reviewed by: Jacquelin Patel PA-C - Fully Assessed Reason for Visit: Established Patient [175] COPD [27] Primary Visit Diagnosis:Stag e 3 severe COPD by GOLD classification ([facility]) [J44.9] Other Visit Diagnoses:Bronchiectasis without complicat ion ([facility]) [J47.9] ILD (interstitial lung disease) ([facility]) [J84.9] Chronic respiratory failure with hypoxia ([facility]) [J96.11 ] Order(s):budesonide (PULMICORT) 0.5 mg/2 mL nebulizer solutionUse 2 mL via nebulizer once daily. INHALE 2 ML BY NEBULIZER OVER 5- 15 MINUTES EVERY 12 HOURS.Disp: 60 VialRfl: 11 ipratropium-albuterol (DUONE B) 0.5 mg-3 mg(2.5 mg b (more content not included)... SIX MINUTE WALK on 08-07-2021 [facility] SPIROMETRY BASELINE ONLY on 08-07-2021 DLCO (ml/min/mmHg) 6.77 ml/min/mmHg [facility] DLCO/VA (ml/min/mmHg/L) 1.94 ml/min/mmHg/L [facility] DEF64-04% PRE (L/S) 0.63 L/S [facility] FEV1 PRE (L) 1.15 L [facility] FEV1/FVC PRE (%) 0.66 % [facility] FVC PRE (L) 1.74 L [facility] PEF PRE (L/S) 2.55 L/S [facility] ic VA (L) 3.49 L [facility] CNCO on 08-05-2021 CNCO Letter Text Normal [facility] CNPN on 08-01-2021 CNPN Telephone (FAMPWS) Normal [place] [facility] VIVIANA SANTANA ([id number]) 1955 [facility] Date Time Provider Department 08/01/21 Alexa BECERRA [...] with Rheumatology until early September. Patient uses [facility] for her pharmacy. Patient said the prednisone [...] times daily for 180 days . [facility] Portable oxygen concentrator 3l/min [...] (HCC) J96.11 Chronic respiratory failure with hypoxia ([facility]) - COMPOUNDED PRESCRIPTION Face mask: hypoxia - [...] included)... CNPN on 07-02-2021 CNPN Telephone (INTMWS) [facility] VIVIANA Simpson ([id number]) 1955 [facility] Date Time Provider Department 07/02/21 Alexa BECERRA [...] below and follow up with patient at [phone]. Jacquelin Alexa Gomez Pss 07/04/2021 3:24 PM [...] times daily for 180 days . - [facility] Medical Supply Portable oxygen concentrator 3l/min at [...] diagnosis) J84.9 ILD (interstitial lung dise ase) ([facility]) - COMPOUNDED PRESCRIPTION #1 Continuous Flow Stationary O2 Concentrator Sig: O2 2l/min liter flow Patient is to keep portablel concentrator as well J43. 2 Centrilobular emphysema (HCC) J84.9 ILD (interstitial lung disease) ([facility]) J96.11 Chronic respiratory failure with hypoxia ([facility]) - COMPOUNDED PRESCRIPTION Face mask: hy (more content not included)... CNPN on 06-24-2021 CNPN Telephone (RHBATH) Normal [place] VIVIANA Beverly ([id number]) 1955 F Medical Date Time Provider Department [...] times daily for 180 days . 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] 05/19/2017 05/19/2017 Iatrogenic adrenal insufficiency (HCC) [E27.49] 2017 Chronic respiratory failure with hypoxia (HCC) *2017 Rheumatoid arthritis involving multiple sites w*2017 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 current use of immunosuppressive drug*2017 Paroxysmal atrial [...] CNOV Office Visit (PNMDNA) [facility] VIVIANA SANTANA ([id number]) 1955 [facility] Time Provider Department 06/23/21 10:30 AM JERAMIE BEGUM PNTXNA During your visit today, we recorded the following inf ormation about you: Pulse Weight Height 91/minute 85.5 kg 1.626 m Jeramie Begum MD 06/23/2021 11:09 AM Signed [facility] Pain Management Department Date: June 23, [...] included)... CNPN on 06-23-2021 MELISAN Telephone (FAMPWS) [facility] VIVIANA Simpson ([id number]) 1955 [facility] Date Time Provider Department 06/23/21 Alexa BECERRA During your visit today, we recorded the following inf ormation about you: Brandy Odonnell ROBERTA 06/23/2021 12:47 PM Signed Patient calling she had her appt with Dr Begum to day. She said Rufino Becerra can review what Dr Begum said. Patient is ask ing for prednisone rx to go to [facility] pharmacy. Please advise lAexa Becerra PA-C 06/23/2021 5:28 PM Signed I [...] See Comments Date Reviewed: 06/23/2021 Reviewed by: Марниа Nation Ma - Fully Assessed Reason for [...] diagnosis) J84.9 ILD (interstitial lung dise ase) ([facility]) - COMPOUNDED PRESCRIPTION #1 Continuous Flow Stationary O2 Concentrator Sig: O2 2l/min liter flow Patient is to keep portablel concentrator as well J43. 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 CNOV on 06-19-2021 CNOV Office Visit (FAMPWS) Normal [place] [facility] VIVIANA Simpson ([id number]) 1955 [facility] Time Provider Department 06/19/21 3:00 PM Alexa [...] Abs Lymph 1.00 - 4.00 k/uL 1.45 Collin% % 3.8 Abs Collin <0.87 k/uL 0.58 Eosin% % 2.0 Abs [...] Sites Wi th Positive Rheumatoid Factor (Hcc) Detention Current Use of Immunosuppressive Drug Paroxysmal Atrial Fibrillation (Hcc) Hyperthyroidism Normocytic Anemia Pre-Diabetes Current Chronic Use of Systemic Steroids Type 2 Diabetes Mellitus Wit hout Complication, Without Long-Term Current Use of Insulin (Hcc) Regular Astigmatism, Bilateral Vitreous Floaters of Both Eyes Pseudophakia of Both Eye (more content not included).. . 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 BLOOD TB SCREEN, INCUBATED on 2 M. tuberculosis tuberculin stim Negative Normal NEGAT [facility] IFN-g Ql (Bld) Comment on above: Order Comment: Specimen Type : BLOOD SPECIMEN Performed By: #### INTPGP ## ##[facility] LAB REFERENCE LABCLIA [id number] [address] [address] [place] MITOGEN MINUS NIL 4.06 Normal [facility] Comment on above: Order Comment: Specimen Type : BLOOD SPECIMEN Performed By: #### INTPGP ## ##[facility] LAB REFERENCE LABCLIA [id number] [address] [address] [place] TB INTERPRETATION No evidence of current or Normal [facility] previous infection with Cent er Mycobacterium tuberculosis. Comment on above: Order Comment: Specimen Type : BLOOD SPECIMEN Performed By: #### INTPGP ## ##[facility] LAB REFERENCE LABCLIA [id number] [address] [address] [place] TB NIL 0.07 IU/mL Normal [facility] Comment on above: Order Comment: Specimen Type : BLOOD SPECIMEN Performed By: #### INTPGP ## ##[facility] LAB REFERENCE LABCLIA [id number] [address] [address] [facility] [place] TB1 AG MINUS NIL 0.00 IU/mL Normal <0.35 [facility] Comment on above: Order Comment: Specimen Type : BLOOD SPECIMEN Performed By: #### INTPGP ## ##[facility] LAB REFERENCE LABCLIA [id number] [address] [address] [facility] [place] TB2 AG MINUS NIL 0.00 IU/mL Normal <0.35 [facility] Comment on above: Order Comment: Specimen Type : BLOOD SPECIMEN Performed By: #### INTPGP ## ##[facility] LAB REFERENCE LABCLIA [id number] [address] [place] [id number] [facility] [place] CBC W Auto Differential panel (Bld) on 05-12-2021 Basophils (Bld) [#/Vol] 0.10 10*3/uL Normal <0.11 [facility] Comment on above: Order Comment: Specimen Type : BLOOD SPECIMEN Performed By: #### 85366-2 # ###[facility]ORATORYCLIA [id number] [place], [place] [id number] [place] [address] [place] Basophils/100 WBC (Bld) 0.6 % Normal [facility] Comment on above: Order Comment: Specimen Type : BLOOD SPECIMEN Performed By: #### 09202-9 # ###[facility] LABORATORYCLIA [id number] [place] [address] [place] Differential cell count method Nom (Bld) Auto Normal [facility] Comment on above: Order Comment: Specimen Type : BLOOD SPECIMEN Performed By: #### 41181-2 # ###[facility]ORATORYCLIA [id number] [place] [address] [place] Eosinophils (Bld) [#/Vol] 0.31 10*3/uL Normal <0.46 [facility] Comment on above: Order Comment: Specimen Type : BLOOD SPECIMEN Performed By: #### 36109-7 # ###[facility]ATORYCLIA [id number] [place] [address] [facility] Eosinophils/100 WBC (Bld) 2.0 % Normal [facility] Comment on above: Order Comment: Specimen Type : BLOOD SPECIMEN Performed By: #### 67011-7 # ###[facility]ORYCLIA [id number] [facility] [place] [address] [place] [address] OF [place] Erythrocyte distribution width 13.7 % Normal 11.5-15.0 [facility] (RBC) [Ratio] Comment on above: Order Comment: Specimen Type : BLOOD SPECIMEN Performed By: #### 19824-0 # ###[facility]ORATORYCLIA [id number] [facility] [place] [address] [place] [address] OF [facility] Hematocrit (Bld) [Volume 39.7 % Normal 36.0-46.0 [facility] fraction] Comment on above: Order Comment: Specimen Type : BLOOD SPECIMEN Performed By: #### 44678-9 # ###[facility]ATORYCLIA [id number] [facility] [facility] [place] [address] [facility] Hemoglobin (Bld) [Mass/Vol] 11.4 g/dL Low 11.5-15.5 [facility] Comment on above: Order Comment: Specimen Type : BLOOD SPECIMEN Performed By: #### 17222-8 # ###[facility]ORATORYCLIA [id number] [place] [address] [place] IMMATURE GRAN % 0.8 % Normal [facility] Comment on above: Order Comment: Specimen Type : BLOOD SPECIMEN Performed By: #### 32080-6 # ###[facility]ORATORYCLIA [id number] [place] [address] [facility] IMMATURE GRAN ABS 0.12 k/uL High <0.10 [facility] Comment on above: Order Comment: Specimen Type : BLOOD SPECIMEN Performed By: #### 63600-5 # ###[facility]ATORYCLIA [id number] [facility] [place], [address] Lymphocytes (Bld) [#/Vol] 1.45 10*3/uL Normal 1.00-4.00 [facility] Comment on above: Order Comment: Specimen Type : BLOOD SPECIMEN Performed By: #### 22065-0 # ###[facility]ORYCLIA [id number] [facility] [place], [address] Lymphocytes/100 WBC (Bld) 9.4 % Normal [facility] Comment on above: Order Comment: Specimen Type : BLOOD SPECIMEN Performed By: #### 87717-7 # ###[facility]ORATORYCLIA [id number] [facility] ENUEM[facility], [address] MCH (RBC) [Entitic mass] 30.1 pg Normal 26.0-34.0 [facility] Comment on above: Order Comment: Specimen Type : BLOOD SPECIMEN Performed By: #### 27330-4 # ###[facility]ORATORYCLIA [id number] [facility] ENUEMDRON, [address] MCHC (RBC) [Mass/Vol] 28.7 g/dL Low 30.5-36.0 [facility] Comment on above: Order Comment: Specimen Type : BLOOD SPECIMEN Performed By: #### 33987-0 # ###[facility]ORATORYCLIA [id number] [facility], [address] OF [facility] MCV (RBC) [Entitic vol] 104.7 fL High 80.0-100.0 [facility] Comment on above: Order Comment: Specimen Type : BLOOD SPECIMEN Performed By: #### 09505-7 # ###[facility]ORATORYCLIA [id number] [facility] ENUEMDR[facility], [address] Monocytes (Bld) [#/Vol] 0.58 10*3/uL Normal <0.87 [facility] Comment on above: Order Comment: Specimen Type : BLOOD SPECIMEN Performed By: #### 13172-6 # ###[facility]ORATORYCLIA [id number] [facility], [address] Monocytes/100 WBC (Bld) 3.8 % Normal [facility] Comment on above: Order Comment: Specimen Type : BLOOD SPECIMEN Performed By: #### 41670-7 # ###[facility]ORATORYCLIA [id number] [place] [address] [facility] Neutrophils (Bld) [#/Vol] 12.87 10*3/uL High 1.45-7.50 [facility] Comment on above: Order Comment: Specimen Type : BLOOD SPECIMEN Performed By: #### 68847-0 # ###[facility]ORATORYCLIA [id number] [place] [address] [facility] Neutrophils/100 WBC (Bld) 83.4 % Normal [facility] Comment on above: Order Comment: Specimen Type : BLOOD SPECIMEN Performed By: #### 61755-5 # ###[facility]ORATORYCLIA [id number] [facility] [place] [address] [place] [address] Nucleated RBC (Bld) [#/Vol] 10*3/uL Normal <0.01 [facility] Comment on above: Order Comment: Specimen Type : BLOOD SPECIMEN Performed By: #### 77848-0 # ###[facility]ORATORYCLIA [id number] [facility] [place] [address] [place] [address] OF [facility] Nucleated RBC/100 WBC (Bld) 0.0 /100 WBC Normal 0.0 [facility] [Ratio] Comment on above: Order Comment: Specimen Type : BLOOD SPECIMEN Performed By: #### 19808-0 # ###[facility]ORATORYCLIA [id number] [place] [address] [facility] Platelet mean volume (Bld) 10.2 fL Normal 9.0-12.7 [facility] [Entitic vol] Comment on above: Order Comment: Specimen Type : BLOOD SPECIMEN Performed By: #### 48888-0 # ###[facility]ORATORYCLIA [id number] [place] [address] [facility] OF [place] Platelets (Bld) [#/Vol] 381 10*3/uL Normal 150-400 [facility] Comment on above: Order Comment: Specimen Type : BLOOD SPECIMEN Performed By: #### 46890-5 # ###[facility] LABORATORYCLIA [id number] [place], [place] [address] [place] [address] RBC (Bld) [#/Vol] 3.79 10*6/uL Low 3.90-5.20 [facility] Comment on above: Order Comment: Specimen Type : BLOOD SPECIMEN Performed By: #### 65615-0 # ###[facility] LABORATORYCLIA [id number] [place], [place] [address] [place] [address] WBC (Bld) [#/Vol] 15.43 10*3/uL High 3.70-11.00 [facility] Comment on above: Order Comment: Specimen Type : BLOOD SPECIMEN Performed By: #### 74963-1 # ###[facility] LABORATORYCLIA [id number] [address] CCP ANTIBODY IGG on 05-12-2021 Cyclic citrullinated peptide IgG Qn >250 High <20 [facility] Comment on above: Order Comment: Specimen Type : BLOOD SPECIMEN Result Comment: < 20 units: Negative 20-39 units: Weak Positive 40-59 units: Moderate Positi ve > 60 units: Strong Positive The following results were o btained with the QR [employer] QUANTA Lite CCP3 IgG HELIO. Anti-CCP values obtained with different manufacturers' assay methods may not be used interchangeably. The magnitude of the reported IgG levels cannot b e correlated to an endpoint titer. Performed By: #### CCP, RF # ###[facility] LAB REFERENCE LABCLIA [id number] [address] [id number] [address] [place] OF [facility] Comprehensive metabolic 2000 panel on 05-12-2021 Albumin [Mass/Vol] 3.7 g/dL Low 3.9-4.9 [facility] Comment on above: Order Comment: Specimen Type : BLOOD SPECIMEN Performed By: #### 42930-0 # ###[facility] LABORATORYCLIA [id number] [place] [address] [facility] [place] ALP [Catalytic activity/Vol] 98 U/L Normal 34-123 [facility] Comment on above: Order Comment: Specimen Type : BLOOD SPECIMEN Performed By: #### 34710-9 # ###[facility]ORATORYCLIA [id number] [place] [address] [facility] ALT With P-5'-P [Catalytic activity/Vol] 6 U/L Low 7-38 [facility] Comment on above: Order Comment: Specimen Type : BLOOD SPECIMEN Performed By: #### 04729-3 # ###[facility]ORATORYCLIA [id number] [place] [address] [facility] Anion gap [Moles/Vol] 10 mmol/L Normal 9-18 [facility] Comment on above: Order Comment: Specimen Type : BLOOD SPECIMEN Performed By: #### 57740-5 # ###[facility]ORATORYCLIA [id number] [place] [address] [facility] AST With P-5'-P [Catalytic 12 U/L Low 13-35 [facility] activity/Vol] Comment on above: Order Comment: Specimen Type : BLOOD SPECIMEN Performed By: #### 50144-0 # ###[facility]ORATORYCLIA [id number] [place] [address] [place] Bilirubin [Mass/Vol] 0.2 mg/dL Normal 0.2-1.3 [facility] Comment on above: Order Comment: Specimen Type : BLOOD SPECIMEN Performed By: #### 14477-8 # ###[facility]ORATORYCLIA [id number] [place] [address] [place] Calcium [Mass/Vol] 8.9 mg/dL Normal 8.5-10.2 [facility] Comment on above: Order Comment: Specimen Type : BLOOD SPECIMEN Performed By: #### 32848-4 # ###[facility]ORATORYCLIA [id number] [place] [address] [place] Chloride [Moles/Vol] 105 mmol/L Normal 97-105 [facility] Comment on above: Order Comment: Specimen Type : BLOOD SPECIMEN Performed By: #### 74338-4 # ###[facility] LABORATORYCLIA [id number] [facility], [place] [address] [place] [address] OF [facility] CO2 [Moles/Vol] 27 mmol/L Normal 22-30 [facility] Comment on above: Order Comment: Specimen Type : BLOOD SPECIMEN Performed By: #### 88331-5 # ###[facility] LABORATORYCLIA [id number] [place], [place] [address] [place] [address] STATES [facility] Creatinine [Mass/Vol] 0.78 mg/dL Normal 0.58-0.96 [facility] Comment on above: Order Comment: Specimen Type : BLOOD SPECIMEN Performed By: #### 63896-0 # ###[facility] LABORATORYCLIA [id number] [address] STATES OF [facility] GFR/1.73 sq M.predicted MDRD mL/min/{1.73_m2} Normal [facility] (S/P/Bld) [Vol rate/Area] Ce nter Comment on above: Order Comment: Specimen Type : BLOOD SPECIMEN Result Comment: >60 eGFR (Estimated GFR) Units o f measure: mL/min/1.73 meters squared eGFR is derived from the ree xpressed MDRD Study equation using the following parameters: serum creatinine, age, gender and race. The creatinine assay has been calibrated to be traceable to IDUT. An eGFR <60 mL/min/1.73m2 for >3 mo nths is consistent with chronic kidney disease. Refer to KDOQI guidelines for clinical interpretation. In patients with unstable renal function, e.g. those with acute k idney injury, the eGFR may n ot accurately reflect actual GFR. Performed By: #### 98812-5 # ###[facility] LABORATORYCLIA [id number] [facility], [place] [address] [place] [address] [place] Glucose [Mass/Vol] 89 mg/dL Normal 74-99 [facility] Comment on above: Order Comment: Specimen Type : BLOOD SPECIMEN Result Comment: The [place] Diabetes Association (ADA) provides guidance for cutoff [...] for diagnosis of diabetes. Reference: Standards of [facility] in Diabetes 2016, [place] [employer] Association. Diabetes Care. 2016.39(Suppl 1). Performed By: #### 62141-0 # ###[facility] LABORATORYCLIA [id number] [facility] [facility] [place] [address] [place] Potassium [Moles/Vol] 3.9 mmol/L Normal 3.7-5.1 [facility] Comment on above: Order Comment: Specimen Type : BLOOD SPECIMEN Performed By: #### 64546-5 # ###[facility] LABORATORYCLIA [id number] [facility] [facility] [place] [address] [place] Protein [Mass/Vol] 6.5 g/dL Normal 6.3-8.0 [facility] Comment on above: Order Comment: Specimen Type : BLOOD SPECIMEN Performed By: #### 94372-3 # ###[facility] LABORATORYCLIA [id number] [place] [address] [place] Sodium [Moles/Vol] 142 mmol/L Normal 136-144 [facility] Comment on above: Order Comment: Specimen Type : BLOOD SPECIMEN Performed By: #### 10483-8 # ###[facility] LABORATORYCLIA [id number] [place] [address] [place] Urea nitrogen [Mass/Vol] 13 mg/dL Normal 7-21 [facility] Comment on above: Order Comment: Specimen Type : BLOOD SPECIMEN Performed By: #### 57062-9 # ###[facility]ATORYCLIA [id number] [place] [address] [place] HBV surface Ab IA Ql (S) on 05-12-2021 HBV surface Ag Ql (S) Negative Normal Negative [facility] Comment on above: Order Comment: Specimen Type : BLOOD SPECIMEN Performed By: #### 09790-5 # ###[facility] LABORATORYCLIA [id number] [place] [address] [facility] [place] HBV surface Ab Ser-aCnc on 05-12-2021 HBV surface Ab Qn (S) <3.10 Normal <10.00 [facility] Comment on above: Order Comment: Specimen Type : BLOOD SPECIMEN Result Comment: Patient is c onsidered not to have protective immunity to HBV infection. Performed By: #### 14723-2 # ###[facility] LABORATORYCLIA [id number] [place] [address] [facility] HCV Ab Ser Ql on 05-12-2021 HCV Ab Ql (S) Negative Normal Negative [facility] Comment on above: Order Comment: Specimen Type : BLOOD SPECIMEN Performed By: #### 95981-8 # ###[facility] LABORATORYCLIA [id number] [place] [address] [facility] HEP B CORE AB TOTAL on 05-12-2021 HBV core Ab Ql (S) Negative Normal NEGAT [facility] Comment on above: Order Comment: Specimen Type : BLOOD SPECIMEN Performed By: #### AHBCOT ## ##[facility] LAB REFERENCE LABCLIA [id number] [address] [address] [facility] RHEUMATOID FACTOR BL on 05-12-2021 Rheumatoid factor Qn 441 [IU]/mL High <16 [facility] Comment on above: Order Comment: Specimen Type : BLOOD SPECIMEN Performed By: #### CCP, RF # ###[facility] LAB REFERENCE LABCLIA [id number] [address] [address] [facility] VITAMIN D 25 HYDROXY on 05-12-2021 25-hydroxyvitamin D3 [Mass/Vol] 10.4 ng/mL Low 30.0-100. 0 [facility] Comment on above: Order Comment: Specimen Type : BLOOD SPECIMEN Result Comment: Classificati on of 25 [place] Vitamin D status: Deficiency: < 20 ng/ml. Insufficientcy: 20-30 ng/ml. Sufficiency: 30-100 ng/ml. Performed By: #### VITD #### [facility] LABORATORYCLIA [id number] [facility] [place] [address] [facility] XR CERVICAL 2V AP/LAT on 05-12-2021 XR CERVICAL 2V AP/LAT * * *Final Report* * * Normal [facility] DATE OF EXAM: May 12 2021 12:30PM [facility] AWX 5308 - XR CERVICAL [...] 3V PA/LAT/OBL RT -- NOT APPLICABLE (accession [id number]), NOT APPLICABL E (accession [id number]), BILATERAL (accession [id number]), NOT APPLI CABLE (accession [id number]) with 2 (accession [id number]), 2 (accession [id number]), 1 (accession [id number]), 2 (accession [id number]) views o n 2 (accession [id number]), 2 (accession [id number]), 1 (accession [id number]), 2 (accession [id number]) images Comparison: None RESULT: Cervical spine: Counting [...] Hallux valgus and digital contractures bi laterally. Assistant Clinical Nurse Manager: PSCB Transcribe Date/Time: May 12 2021 1:57P Dictated by : GLO PERES MD This examination was interpreted and the report review ed and electronically signed by: GLO PERES MD on May 12 2021 2:06PM EST [id number] XR FOOT 3V AP/LAT/OBL LT on 05-12-2021 XR FOOT 3V AP/LAT/OBL * * *Final Report* * * Normal [facility] LT DATE OF EXAM: May 12 2021 12:30PM [facility] AWX 5336 - XR FOOT 3V AP/LAT/OBL LT / [id number] PROCEDURE REASON: Pain in joint, multiple sites [...] 3V PA/LAT/OBL RT -- NOT APPLICABLE (accession [id number]), NOT APPLICABL E (accession [id number]), BILATERAL (accession [id number]), NOT APPLI CABLE (accession [id number]) with 2 (accession [id number]), 2 (accession [id number]), 1 (accession [id number]), 2 (accession [id number]) views o n 2 (accession [id number]), 2 (accession [id number]), 1 (accession [id number]), 2 (accession [id number]) images Comparison: None RESULT: Cervical spine: Counting [...] Hallux valgus and digital contractures bi laterally. Assistant Clinical Nurse Manager: [facility] Transcribe Date/Time: May 12 2021 1:57P Dictated by : GLO PERES MD This examination was interpreted and the report review ed and electronically signed by: GLO PERES MD on May 12 2021 2:06PM EST [id number] XR FOOT 3V AP/LAT/OBL RT on 05-12-2021 XR FOOT 3V AP/LAT/OBL * * *Final Report* * * Normal [facility] RT DATE OF EXAM: May 12 2021 12:30PM [facility] AWX 5337 - XR FOOT 3V AP/LAT/OBL RT / [id number] PROCEDURE REASON: Pain in joint, multiple sites [...] 3V PA/LAT/OBL RT -- NOT APPLICABLE (accession [id number]), NOT APPLICABL E (accession [id number]), BILATERAL (accession [id number]), NOT APPLI CABLE (accession [id number]) with 2 (accession [id number]), 2 (accession [id number]), 1 (accession [id number]), 2 (accession [id number]) views o n 2 (accession [id number]), 2 (accession [id number]), 1 (accession [id number]), 2 (accession [id number]) images Comparison: None RESULT: Cervical spine: Counting [...] Hallux valgus and digital contractures bi laterally. Assistant Clinical Nurse Manager: OLGA Transcribe Date/Time: May 12 2021 1:57P Dictated by : GLO PERES MD This examination was interpreted and the report review ed and electronically signed by: GLO PERES MD on May 12 2021 2:06PM EST [id number] XR HAND 3V PA/LAT/OBL LT on 05-12-2021 XR HAND 3V PA/LAT/OBL * * *Final Report* * * Normal [facility] DATE OF EXAM: May 12 2021 12:30PM [facility] AWX 5345 - XR HAND 3V PA/LAT/OBL LT / [id number] PROCEDURE REASON: Pain in joint, multiple sites [...] 3V PA/LAT/OBL RT -- NOT APPLICABLE (accession [id number]), NOT APPLICABL E (accession [id number]), BILATERAL (accession [id number]), NOT APPLI CABLE (accession [id number]) with 2 (accession [id number]), 2 (accession [id number]), 1 (accession [id number]), 2 (accession [id number]) views o n 2 (accession [id number]), 2 (accession [id number]), 1 (accession [id number]), 2 (accession [id number]) images Comparison: None RESULT: Cervical spine: Counting [...] Hallux valgus and digital contractures bi laterally. Assistant Clinical Nurse Manager: PSCB Transcribe Date/Time: May 12 2021 1:57P Dictated by : GLO PERES MD This examination was interpreted and the report review ed and electronically signed by: GLO PERES MD on May 12 2021 2:06PM EST [id number] XR HAND 3V PA/LAT/OBL RT on 05-12-2021 XR HAND 3V PA/LAT/OBL * * *Final Report* * * Normal [facility] RT DATE OF EXAM: May 12 2021 12:30PM [facility] AWX 5346 - XR HAND 3V PA/LAT/OBL RT / [id number] PROCEDURE REASON: Pain in joint, multiple sites [...] 3V PA/LAT/OBL RT -- NOT APPLICABLE (accession [id number]), NOT APPLICABL E (accession [id number]), BILATERAL (accession [id number]), NOT APPLI CABLE (accession [id number]) with 2 (accession [id number]), 2 (accession [id number]), 1 (accession [id number]), 2 (accession [id number]) views o n 2 (accession [id number]), 2 (accession [id number]), 1 (accession [id number]), 2 (accession [id number]) images Comparison: None RESULT: Cervical spine: Counting [...] Hallux valgus and digital contractures bi laterally. Assistant Clinical Nurse Manager: OLGA Transcribe Date/Time: May 12 2021 1:57P Dictated by : GLO PERES MD This examination was interpreted and the report review ed and electronically signed by: GLO PERES MD on May 12 2021 2:06PM EST [id number] XR KNEE SURVEY 1V AP RYAN on 05-12-2021 XR KNEE SURVEY 1V AP * * *Final Report* * * Normal [facility] RYAN DATE OF EXAM: May 12 2021 12:30PM [facility] AWX 5213 - XR KNEE SURVEY 1V AP RYAN / [id number] PROCEDURE REASON: Pain in joint, multiple sites [...] 3V PA/LAT/OBL RT -- NOT APPLICABLE (accession [id number]), NOT APPLICABL E (accession [id number]), BILATERAL (accession [id number]), NOT APPLI CABLE (accession [id number]) with 2 (accession [id number]), 2 (accession [id number]), 1 (accession [id number]), 2 (accession [id number]) views o n 2 (accession [id number]), 2 (accession [id number]), 1 (accession [id number]), 2 (accession [id number]) images Comparison: None RESULT: Cervical spine: Counting [...] Hallux valgus and digital contractures bi laterally. Assistant Clinical Nurse Manager: PSCB Transcribe Date/Time: May 12 2021 1:57P Dictated by : GLO PERES MD This examination was interpreted and the report review ed and electronically signed by: GLO PERES MD on May 12 2021 2:06PM EST [id number] XR LUMBAR 2V AP/LAT on 05-12-2021 XR LUMBAR 2V AP/LAT * * *Final Report* * * Normal [facility] DATE OF EXAM: May 12 2021 12:30PM [facility] AWX 5229 - XR LUMBAR [...] 3V PA/LAT/OBL RT -- NOT APPLICABLE (accession [id number]), NOT APPLICABL E (accession [id number]), BILATERAL (accession [id number]), NOT APPLI CABLE (accession [id number]) with 2 (accession [id number]), 2 (accession [id number]), 1 (accession [id number]), 2 (accession [id number]) views o n 2 (accession [id number]), 2 (accession [id number]), 1 (accession [id number]), 2 (accession [id number]) images Comparison: None RESULT: Cervical spine: Counting [...] Hallux valgus and digital contractures bi laterally. Assistant Clinical Nurse Manager: [facility] Transcribe Date/Time: May 12 2021 1:57P Dictated [...] DATE OF EXAM: May 12 2021 12:30PM [facility] AWX 5245 - XR SI [...] 3V PA/LAT/OBL RT -- NOT APPLICABLE (accession [id number]), NOT APPLICABL E (accession [id number]), BILATERAL (accession [id number]), NOT APPLI CABLE (accession [id number]) with 2 (accession [id number]), 2 (accession [id number]), 1 (accession [id number]), 2 (accession [id number]) views o n 2 (accession [id number]), 2 (accession [id number]), 1 (accession [id number]), 2 (accession [id number]) images Comparison: None RESULT: Cervical spine: Counting [...] Hallux valgus and digital contractures bi laterally. Assistant Clinical Nurse Manager: PSCB Transcribe Date/Time: May 12 2021 1:57P Dictated by : GLO PERES MD This examination was interpreted and the report review ed and electronically signed by: GLO PERES MD on May 12 2021 2:06PM EST [id number] [facility] on 05-05-2021 CNPN Telephone (TRUEWS) [facility] VIVIANA Simpson ([id number]) 1955 [facility] Time Provider Department 05/05/21 Alexa BECERRA During your visit today, we recorded the following inf ormation about you: Tova Austin RN 05/05/2021 8:30 AM Signed Patient calls in to request an order for prednisone be sent to [facility]. 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 2 Centrilobular emphysema ([facility]) J84.9 ILD (interstitial lung disease) ([facility]) J96.11 Chronic respiratory failure with hypoxia ([facility]) - leflunomide (ARAVA) 10 mg tablet Take [...] CNPN on 04-25-2021 CNPN Telephone (RHBATH) [place] VIVIANA Beverly ([id number]) 1955 F Medical Date Time Provider Department Center 04/25/21 ASIA CALDERÓN RHBATH During your visit today, we recorded the following inf ormation about you: Sayda Jimenez LPN 04/25/2021 1:59 PM Addendum Left detailed vm asking patient to call and schedule f /u appt in office with Dr. Caldeórn. Patient called back, appt scheduled below. Lab and x r ay orders mailed to patient. Patient will obtain outside of [facility]. Will call office after completed to obtain results. Patient reminded she will need to bring a photo ID, all insurance cards and a list of medications and allergies. Next appt. 06/10/2021 9:00 AM MD EDDIE aCrnes [facility] Sayda JimenezDESIKirk Jimenez, ROBERTA 05/07/2021 12:50 PM Signed Patient left asking for return call. Patient states she received her orders i n the mail and she doesn't understand it. 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 CNPN on 2021 MELISAN Telephone (NEO) [facility] VIVIANA SANTANA ([id number]) 1955 [facility] Time Provider Department 04/23/21 Alexa BECERRA During [...] help. 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 Was prescribed Prednisone in the past and thi s helped Last Natural Resources Extension Educator did not take her current insurance and [...] *2017 Rheumatoid arthritis involving multiple sites w*2017 detention current use of immunosuppressive drug*2017 Paroxysmal atrial [...] Office Visit ([facility]) Normal [facility] VIVIANA SANTANA ([id number]) 1955 F [facility] Time Provider Department 04/01/21 3:00 PM YOVANI PIEDRA During your visit today, we recorded the following inf ormation about you: Pulse Blood pressure Weight Height 92/minute 128/76 86.9 kg 1.626 m Yovani Piedra DO 04/01/2021 3:37 PM Signed [facility] [place] Sanjiv Sprague Department of Cardiovascula r Medicine [...] respiratory failure again. She did got to [facility] for pneumonia admit in January 2019: Preadmission evaluation: SOB and cough x 2 days. No fe kameron. had URI. Which facility: [facility] Dates of visit: !-02/02/19 Primary Diagnosis/es: [...] majority of her time. She was admitted [facility] in April with sepsis and pneumonia and [...] and bronchiectasis. ?She follows pulmonary at the [facility] now. ?There was a note that they [...] (HCC) - COPD (chronic obstructive pulmonary disease) ([facility]) Chronic bronchitis by history. - COVID-19 vaccine [...] 0.10 10 3/mcL Normal 0.00-0.19 [facility] ([place]) Comment on above: Performed By: #### CMP, GFR #### [place] [address] #### ANEU, ADIFF, CBC #### [address] [address] Basophils/100 WBC (Bld) 0.7 % Normal 0.0-2.5 [facility] ([place]) Comment on above: Performed By: #### CMP, GFR #### [address] [address] #### ANEU, ADIFF, CBC #### [address] [address] Eosinophil, Absolute 0.30 10 3/mcL Normal 0.00-0.40 [facility] ([place]) Comment on above: Performed By: #### CMP, GFR #### [place] [address] #### ANEU, ADIFF, CBC #### [address] [address] Eosinophils/100 WBC (Bld) 1.9 % Normal 0.0-7.0 On license of [facility] ([place]) Comment on above: Performed By: #### CMP, GFR #### [place] [address] #### ANEU, ADIFF, CBC #### [address] [address] Lymphocyte, Absolute 1.70 10 3/mcL Normal 0.77-3.85 [facility] ([place]) Comment on above: Performed By: #### CMP, GFR #### [place] [address] #### ANEU, ADIFF, CBC #### [address] [address] Lymphocytes/100 WBC (Bld) 10.8 % Normal 10.0-50.0 On license of [facility] ([place]) Comment on above: Performed By: #### CMP, GFR #### [place] [address] #### ANEU, ADIFF, CBC #### [address] [address] Monocyte, Absolute 1.00 10 3/mcL Normal 0.15-1.00 [facility] ([place]) Comment on above: Performed By: #### CMP, GFR #### [place] [address] #### ANEU, ADIFF, CBC #### [address] [address] Monocytes/100 WBC (Bld) 6.2 % Normal 1.7-13.0 [facility] ([place]) Comment on above: Performed By: #### CMP, GFR #### [place] [address] #### ANEU, ADIFF, CBC #### [place] [id number] [place], [place] [address] Neutrophils/100 WBC (Bld) 80.4 % High 37.0-80.0 On license of [facility] ([place]) Comment on above: Performed By: #### CMP, GFR #### [place] [address] #### ANEU, ADIFF, CBC #### [place] [address] [place], [place] [address] .GFR on 11-27-2020 GFR 80 ml/min/1.73sqm Normal On license of [facility] ([place]) Comment on above: Result Comment: GFR Population mean for Afri can Burkinan, Non- Americans Ages 20-29 = 116 mL/min/1.73 [...] meters Performed By: #### CMP, GFR #### [place] [address] #### ANEU, ADIFF, CBC #### [place] [address] [place], [place] [address] GFR Non- 66 ml/min/1.73sqm Normal [facility] ([place]) Comment on above: Result Comment: GFR Population mean for Afri can Burkinan, Non- Americans Ages 20-29 = 116 mL/min/1.73 [...] meters Performed By: #### CMP, GFR #### [place] [address] #### ANEU, ADIFF, CBC #### [address] [address] .NEUABS on 11-27-2020 Neutrophil, Absolute 12.60 10 3/mcL High 2.85-6.16 [facility] ([place]) Comment on above: Performed By: #### CMP, GFR #### [place] [address] #### ANEU, ADIFF, CBC #### [address] [address] CBC on 11-27-2020 Erythrocyte distribution width 17.0 % High 11.5-14.5 [facility] ([place]) (RBC) [Ratio] Comment on above: Performed By: #### CMP, GFR #### [place] [address] #### ANEU, ADIFF, CBC #### [address] [address] Hematocrit (Bld) [Volume 37.6 % Normal 37.0-47.0 [facility] ([place]) fraction] Comment on above: Performed By: #### CMP, GFR #### [place] [address] #### ANEU, ADIFF, CBC #### [address] [address] Hgb 12.1 G/dL Normal 12.0-16.0 [facility] ([place]) Comment on above: Performed By: #### CMP, GFR #### [place] [address] #### ANEU, ADIFF, CBC #### [address] [address] MCH (RBC) [Entitic mass] 30.8 pg Normal 27.0-31.2 [facility] ([place]) Comment on above: Performed By: #### CMP, GFR #### [address] [address] #### ANEU, ADIFF, CBC #### [address] [address] MCHC 32.1 G/dL Low 33.0-37.0 [facility] ([place]) Comment on above: Performed By: #### CMP, GFR #### [place] [address] #### ANEU, ADIFF, CBC #### [address] [address] MCV (RBC) [Entitic vol] 96.0 fL High 80.0-94.0 [facility] ([place]) Comment on above: Performed By: #### CMP, GFR #### [place] [address] #### ANEU, ADIFF, CBC #### [address] [address] Platelet 341 10 3/mcL Normal 130-400 [facility] ([place]) Comment on above: Performed By: #### CMP, GFR #### [place] [address] #### ANEU, ADIFF, CBC #### [address] [address] Platelet mean volume (Bld) 8.1 fL Normal 7.4-10.4 [facility] ([place]) [Entitic vol] Comment on above: Performed By: #### CMP, GFR #### [place] [address] #### ANEU, ADIFF, CBC #### [address] [address] RBC 3.92 10 6/mcL Low 4.20-5.40 [facility] ([place]) Comment on above: Performed By: #### CMP, GFR #### [place] [id number] #### ANEU, ADIFF, CBC #### [address] [address] WBC 15.70 10 3/mcL High 4.60-10.80 [facility] ([place]) Comment on above: Performed By: #### CMP, GFR #### [place] [address] #### ANEU, ADIFF, CBC #### [address] [address] CMP on 11-27-2020 Albumin Level 3.2 G/dL Low 3.4-4.8 [facility] ([place]) Comment on above: Performed By: #### CMP, GFR #### [place] [address] #### ANEU, ADIFF, CBC #### [address] [address] Albumin/Globulin [Mass ratio] 0.9 {ratio} Low 1.1-2.5 [facility] ([place]) Comment on above: Performed By: #### CMP, GFR #### [place] [address] #### ANEU, ADIFF, CBC #### [address] [address] ALP [Catalytic activity/Vol] 108 U/L Normal 40-135 [facility] ([place]) Comment on above: Performed By: #### CMP, GFR #### [place] [address] #### ANEU, ADIFF, CBC #### [address] [address] ALT [Catalytic activity/Vol] 21 U/L Normal 14-59 [facility] ([place]) Comment on above: Performed By: #### CMP, GFR #### [place] [address] #### ANEU, ADIFF, CBC #### [address] [address] AST [Catalytic activity/Vol] 15 U/L Normal 10-40 [facility] ([place]) Comment on above: Performed By: #### CMP, GFR #### [address] [address] #### ANEU, ADIFF, CBC #### [address] [address] Bili Total 0.3 mg/dL Normal 0.2-1.0 [facility] ([place] Comment on above: Result Comment: Use of this assay is not recommended for patients undergoing treatment with eltrombopag d ue to the potential for falsely elevated results. Performed By: #### CMP, GFR #### [place] [address] #### ANEU, ADIFF, CBC #### [address] [address] BUN/Creatinine Ratio 16 ratio Normal 7-27 [facility] ([place]) Comment on above: Performed By: #### CMP, GFR #### [place] [address] #### ANEU, ADIFF, CBC #### [address] [address] Calcium [Mass/Vol] 8.8 mg/dL Normal 8.4-10.2 [facility] ([place]) Comment on above: Performed By: #### CMP, GFR #### [place] [address] #### ANEU, ADIFF, CBC #### [address] [address] Chloride [Moles/Vol] 102 mmol/L Normal 98-107 [facility] ([place]) Comment on above: Performed By: #### CMP, GFR #### [address] [address] #### ANEU, ADIFF, CBC #### [address] [address] CO2 [Moles/Vol] 32 mmol/L High 23-31 [facility] ([place]) Comment on above: Performed By: #### CMP, GFR #### [facility] [address] [place], [place] [address] #### ANEU, ADIFF, CBC #### [address] [address] Creatinine [Mass/Vol] 0.87 mg/dL Normal 0.55-1.02 [facility] ([place]) Comment on above: Performed By: #### CMP, GFR #### [place] [address] #### ANEU, ADIFF, CBC #### [address] [address] Electrolyte Balance 6.0 mEq/L Normal [facility] ([place]) Comment on above: Performed By: #### CMP, GFR #### [place] [address] #### ANEU, ADIFF, CBC #### [address] [address] Globulin 3.7 G/dL Normal [facility] ([place]) Comment on above: Performed By: #### CMP, GFR #### [place] [address] #### ANEU, ADIFF, CBC #### [address] [address] Glucose [Mass/Vol] 90 mg/dL Normal 80-115 [facility] ([place]) Comment on above: Performed By: #### CMP, GFR #### [place] [address] #### ANEU, ADIFF, CBC #### [address] [address] Potassium [Moles/Vol] 4.3 mmol/L Normal 3.5-5.1 [facility] ([place]) Comment on above: Performed By: #### CMP, GFR #### [address] [address] #### ANEU, ADIFF, CBC #### [address] [address] Sodium [Moles/Vol] 140 mmol/L Normal 136-145 [facility] ([place]) Comment on above: Performed By: #### CMP, GFR #### [place] [address] #### ANEU, ADIFF, CBC #### [address] [address] Total Protein 6.9 G/dL Normal 6.4-8.2 [facility] ([place]) Comment on above: Performed By: #### CMP, GFR #### [place] [address] #### ANEU, ADIFF, CBC #### [address] [address] Urea nitrogen [Mass/Vol] 14 mg/dL Normal 7-18 [facility] ([place]) Comment on above: Performed By: #### CMP, GFR #### [place] [address] #### ANEU, ADIFF, CBC #### [address] [address] .Auto Diff on 09-20-2020 Basophil, Absolute 0.10 10 3/mcL Normal 0.00-0.19 [facility] ([place]) Comment on above: Performed By: #### CBC, ADIF F, ANEU #### [place] [id number] #### CMP, GFR #### [place] [id number] Basophils/100 WBC (Bld) 0.8 % Normal 0.0-2.5 [facility] ([place]) Comment on above: Performed By: #### CBC, ADIF F, ANEU #### [place] [id number] #### CMP, GFR #### [place] [address] Eosinophil, Absolute 0.20 10 3/mcL Normal 0.00-0.40 [facility] ([place]) Comment on above: Performed By: #### CBC, ADIF F, ANEU #### [address] [address] #### CMP, GFR #### [address] [address] Eosinophils/100 WBC (Bld) 1.8 % Normal 0.0-7.0 On license of [facility] ([place]) Comment on above: Performed By: #### CBC, ADIF F, ANEU #### [place] [address] #### CMP, GFR #### [address] [address] Lymphocyte, Absolute 2.40 10 3/mcL Normal 0.77-3.85 [facility] ([place]) Comment on above: Performed By: #### CBC, ADIF F, ANEU #### [place] [address] #### CMP, GFR #### [address] [address] Lymphocytes/100 WBC (Bld) 20.2 % Normal 10.0-50.0 On license of [facility] ([place]) Comment on above: Performed By: #### CBC, ADIF F, ANEU #### [place] [address] #### CMP, GFR #### [address] [address] Monocyte, Absolute 1.10 10 3/mcL High 0.15-1.00 [facility] ([place]) Comment on above: Performed By: #### CBC, ADIF F, ANEU #### [place] [address] #### CMP, GFR #### [address] [address] Monocytes/100 WBC (Bld) 9.5 % Normal 1.7-13.0 [facility] ([place]) Comment on above: Performed By: #### CBC, ADIF F, ANEU #### [place] [address] #### CMP, GFR #### [address] [address] Neutrophils/100 WBC (Bld) 67.7 % Normal 37.0-80.0 On license of [facility] ([place]) Comment on above: Performed By: #### CBC, ADIF F, ANEU #### [place] [id number] [place], [place] [address] #### CMP, GFR #### [facility] [address] [place] [address] .GFR on 09-20-2020 GFR 71 ml/min/1.73sqm Normal On license of [facility] ([place]) Comment on above: Result Comment: GFR Population mean for Afri can Burkinan, Non- Americans Ages 20-29 = 116 mL/min/1.73 [...] #### CBC, ADIF F, ANEU #### [place] [id number] [place], [place] [address] #### CMP, GFR #### [place] [id number] [place] [address] GFR Non- 59 ml/min/1.73sqm Normal [facility] ([place]) Comment on above: Result Comment: GFR Population mean for Afri can Burkinan, Non- Americans Ages 20-29 = 116 mL/min/1.73 [...] By: #### CBC, ADIF F, ANEU #### [place] [address] #### CMP, GFR #### [address] [address] .NEUABS on 09-20-2020 Neutrophil, Absolute 7.90 10 3/mcL High 2.85-6.16 [facility] ([place]) Comment on above: Performed By: #### CBC, ADIF F, ANEU #### [place] [address] #### CMP, GFR #### [place] [address] CBC on 09-20-2020 Erythrocyte distribution width 17.5 % High 11.5-14.5 [facility] ([place]) (RBC) [Ratio] Comment on above: Performed By: #### CBC, ADIF F, ANEU #### [place] [address] #### CMP, GFR #### [place] [address] Hematocrit (Bld) [Volume 40.1 % Normal 37.0-47.0 [facility] ([place]) fraction] Comment on above: Performed By: #### CBC, ADIF F, ANEU #### [place] [address] #### CMP, GFR #### [place] [address] Hgb 12.7 G/dL Normal 12.0-16.0 [facility] ([place]) Comment on above: Performed By: #### CBC, ADIF F, ANEU #### [place] [address] #### CMP, GFR #### [place] [address] MCH (RBC) [Entitic mass] 29.4 pg Normal 27.0-31.2 [facility] ([place]) Comment on above: Performed By: #### CBC, ADIF F, ANEU #### [place] [address] #### CMP, GFR #### [place] [address] MCHC 31.7 G/dL Low 33.0-37.0 [facility] ([place]) Comment on above: Performed By: #### CBC, ADIF F, ANEU #### [place] [address] #### CMP, GFR #### [place] [address] MCV (RBC) [Entitic vol] 92.7 fL Normal 80.0-94.0 [facility] ([place]) Comment on above: Performed By: #### CBC, ADIF F, ANEU #### [place] [address] #### CMP, GFR #### [place] [address] Platelet 335 10 3/mcL Normal 130-400 [facility] ([place]) Comment on above: Performed By: #### CBC, ADIF F, ANEU #### [place] [address] #### CMP, GFR #### [place] [address] Platelet mean volume (Bld) 9.6 fL Normal 7.4-10.4 [facility] ([place]) [Entitic vol] Comment on above: Performed By: #### CBC, ADIF F, ANEU #### [place] [address] #### CMP, GFR #### [place] [address] RBC 4.33 10 6/mcL Normal 4.20-5.40 [facility] ([place]) Comment on above: Performed By: #### CBC, ADIF F, ANEU #### [place] [address] #### CMP, GFR #### [place] [address] WBC 11.60 10 3/mcL High 4.60-10.80 [facility] ([place]) Comment on above: Performed By: #### CBC, ADIF F, ANEU #### [address] [address] #### CMP, GFR #### [address] [address] CMP on 09-20-2020 Albumin Level 2.9 G/dL Low 3.4-4.8 [facility] ([place]) Comment on above: Performed By: #### CBC, ADIF F, ANEU #### [place] [address] #### CMP, GFR #### [place] [address] Albumin/Globulin [Mass ratio] 0.8 {ratio} Low 1.1-2.5 [facility] ([place]) Comment on above: Performed By: #### CBC, ADIF F, ANEU #### [address] [address] #### CMP, GFR #### [place] [id number] ALP [Catalytic activity/Vol] 103 U/L Normal 40-135 [facility] ([place]) Comment on above: Performed By: #### CBC, ADIF F, ANEU #### [place] [address] #### CMP, GFR #### [address] [address] ALT [Catalytic activity/Vol] 32 U/L Normal 14-59 [facility] ([place]) Comment on above: Performed By: #### CBC, ADIF F, ANEU #### [place] [address] #### CMP, GFR #### [address] [address] AST [Catalytic activity/Vol] 18 U/L Normal 10-40 [facility] ([place]) Comment on above: Performed By: #### CBC, ADIF F, ANEU #### [address] [address] #### CMP, GFR #### [address] [address] Bili Total 0.3 mg/dL Normal 0.2-1.0 [facility] ([place]) Comment on above: Result Comment: Use of this assay is not recommended for patients undergoing treatment with eltrombopag d ue to the potential for falsely elevated results. Performed By: #### CBC, ADIF F, ANEU #### [address] [address] #### CMP, GFR #### [address] [address] BUN/Creatinine Ratio 21 ratio Normal 7-27 [facility] ([place]) Comment on above: Performed By: #### CBC, ADIF F, ANEU #### [place] [address] #### CMP, GFR #### [address] [address] Calcium [Mass/Vol] 8.9 mg/dL Normal 8.4-10.2 [facility] ([place]) Comment on above: Performed By: #### CBC, ADIF F, ANEU #### [address] [address] #### CMP, GFR #### [address] [address] Chloride [Moles/Vol] 105 mmol/L Normal 98-107 [facility] ([place]) Comment on above: Performed By: #### CBC, ADIF F, ANEU #### [place] [address] #### CMP, GFR #### [address] [address] CO2 [Moles/Vol] 29 mmol/L Normal 23-31 [facility] ([place]) Comment on above: Performed By: #### CBC, ADIF F, ANEU #### [address] [address] #### CMP, GFR #### [address] [address] Creatinine [Mass/Vol] 0.96 mg/dL Normal 0.55-1.02 [facility] ([place]) Comment on above: Performed By: #### CBC, ADIF F, ANEU #### [address] [address] #### CMP, GFR #### [address] [address] Electrolyte Balance 8.0 mEq/L Normal [facility] ([place]) Comment on above: Performed By: #### CBC, ADIF F, ANEU #### [address] [address] #### CMP, GFR #### [address] [address] Globulin 3.5 G/dL Normal [facility] ([place]) Comment on above: Performed By: #### CBC, ADIF F, ANEU #### [address] [address] #### CMP, GFR #### [address] [address] Glucose [Mass/Vol] 82 mg/dL Normal 80-115 [facility] ([place]) Comment on above: Performed By: #### CBC, ADIF F, ANEU #### [place] [address] #### CMP, GFR #### [address] [address] Potassium [Moles/Vol] 4.5 mmol/L Normal 3.5-5.1 [facility] ([place]) Comment on above: Performed By: #### CBC, ADIF F, ANEU #### [address] [address] #### CMP, GFR #### [address] [address] Sodium [Moles/Vol] 142 mmol/L Normal 136-145 [facility] ([place]) Comment on above: Performed By: #### CBC, ADIF F, ANEU #### [address] [address] #### CMP, GFR #### [address] [address] Total Protein 6.4 G/dL Normal 6.4-8.2 [facility] ([place]) Comment on above: Performed By: #### CBC, ADIF F, ANEU #### [place] [address] #### CMP, GFR #### [place] [address] Urea nitrogen [Mass/Vol] 20 mg/dL High 7-18 [facility] ([place]) Comment on above: Performed By: #### CBC, ADIF F, ANEU #### [place] [address] #### CMP, GFR #### [address] [address] .Auto Diff on 05-14-2020 Basophil, Absolute 0.10 10 3/mcL Normal 0.00-0.19 [facility] ([place]) Comment on above: Performed By: #### CBC, ADIF F, ANEU #### [place] [id number] #### CMP, GFR #### [address] [address] Basophils/100 WBC (Bld) 0.9 % Normal 0.0-2.5 [facility] ([place]) Comment on above: Performed By: #### CBC, ADIF F, ANEU #### [place] [address] #### CMP, GFR #### [address] [address] Eosinophil, Absolute 0.30 10 3/mcL Normal 0.00-0.40 [facility] ([place]) Comment on above: Performed By: #### CBC, ADIF F, ANEU #### [address] [address] #### CMP, GFR #### [address] [address] Eosinophils/100 WBC (Bld) 2.5 % Normal 0.0-7.0 On license of [facility] ([place]) Comment on above: Performed By: #### CBC, ADIF F, ANEU #### [address] [address] #### CMP, GFR #### [address] [address] Lymphocyte, Absolute 2.20 10 3/mcL Normal 0.77-3.85 [facility] ([place]) Comment on above: Performed By: #### CBC, ADIF F, ANEU #### [place] [address] #### CMP, GFR #### [address] [address] Lymphocytes/100 WBC (Bld) 16.1 % Normal 10.0-50.0 On license of [facility] ([place]) Comment on above: Performed By: #### CBC, ADIF F, ANEU #### [place] [address] #### CMP, GFR #### [address] [address] Monocyte, Absolute 1.00 10 3/mcL Normal 0.15-1.00 [facility] ([place]) Comment on above: Performed By: #### CBC, ADIF F, ANEU #### [place] [id number] #### CMP, GFR #### [address] [address] Monocytes/100 WBC (Bld) 7.1 % Normal 1.7-13.0 [facility] ([place]) Comment on above: Performed By: #### CBC, ADIF F, ANEU #### [place] [id number] #### CMP, GFR #### [address] [address] Neutrophils/100 WBC (Bld) 73.4 % Normal 37.0-80.0 On license of [facility] ([place]) Comment on above: Performed By: #### CBC, ADIF F, ANEU #### [place] [id number] [place], [place] [address] #### CMP, GFR #### [address] [address] .GFR on 05-14-2020 GFR Non- 63 ml/min/1.73sqm Normal [facility] ([place]) Comment on above: Result Comment: GFR Population mean for Afri can Burkinan, Non- Americans Ages 20-29 = 116 mL/min/1.73 [...] #### CBC, ADIF F, ANEU #### [place] [address] [address] #### CMP, GFR #### [address] [address] GFR 77 ml/min/1.73sqm Normal On license of [facility] ([place]) Comment on above: Result Comment: GFR Population mean for Afri can Burkinan, Non- Americans Ages 20-29 = 116 mL/min/1.73 [...] By: #### CBC, ADIF F, ANEU #### [place] [address] #### CMP, GFR #### [address] [address] .NEUABS on 05-14-2020 Neutrophil, Absolute 9.90 10 3/mcL High 2.85-6.16 [facility] ([place]) Comment on above: Performed By: #### CBC, ADIF F, ANEU #### [place] [address] #### CMP, GFR #### [place] [address] CBC on 05-14-2020 Erythrocyte distribution width 13.9 % Normal 11.5-14.5 [facility] (RBC) [Ratio] ([place]) Comment on above: Performed By: #### CBC, ADIF F, ANEU #### [place] [address] #### CMP, GFR #### [place] [address] Hematocrit (Bld) [Volume 34.5 % Low 37.0-47.0 [facility] ([place]) fraction] Comment on above: Performed By: #### CBC, ADIF F, ANEU #### [place] [address] #### CMP, GFR #### [place] [address] Hgb 11.1 G/dL Low 12.0-16.0 [facility] ([place]) Comment on above: Performed By: #### CBC, ADIF F, ANEU #### [place] [address] #### CMP, GFR #### [place] [address] MCH (RBC) [Entitic mass] 30.9 pg Normal 27.0-31.2 [facility] ([place]) Comment on above: Performed By: #### CBC, ADIF F, ANEU #### [place] [address] #### CMP, GFR #### [place] [address] MCHC 32.1 G/dL Low 33.0-37.0 [facility] ([place]) Comment on above: Performed By: #### CBC, ADIF F, ANEU #### [place] [address] #### CMP, GFR #### [place] [address] MCV (RBC) [Entitic vol] 96.3 fL High 80.0-94.0 [facility] ([place]) Comment on above: Performed By: #### CBC, ADIF F, ANEU #### [place] [address] #### CMP, GFR #### [place] [address] Platelet 401 10 3/mcL High 130-400 [facility] ([place]) Comment on above: Performed By: #### CBC, ADIF F, ANEU #### [place] [address] #### CMP, GFR #### [place] [address] Platelet mean volume (Bld) 8.4 fL Normal 7.4-10.4 [facility] ([place]) [Entitic vol] Comment on above: Performed By: #### CBC, ADIF F, ANEU #### [place] [address] #### CMP, GFR #### [place] [address] RBC 3.58 10 6/mcL Low 4.20-5.40 [facility] ([place]) Comment on above: Performed By: #### CBC, ADIF F, ANEU #### [place] [address] #### CMP, GFR #### [place] [address] WBC 13.50 10 3/mcL High 4.60-10.80 [facility] ([place]) Comment on above: Performed By: #### CBC, ADIF F, ANEU #### [address] [address] #### CMP, GFR #### [place] [address] CMP on 05-14-2020 Albumin Level 3.0 G/dL Low 3.4-4.8 [facility] ([place]) Comment on above: Performed By: #### CBC, ADIF F, ANEU #### [place] [address] #### CMP, GFR #### [place] [address] Albumin/Globulin [Mass ratio] 0.8 {ratio} Low 1.1-2.5 [facility] ([place]) Comment on above: Performed By: #### CBC, ADIF F, ANEU #### [place] [address] #### CMP, GFR #### [place] [address] ALP [Catalytic activity/Vol] 104 U/L Normal 40-135 [facility] ([place]) Comment on above: Performed By: #### CBC, ADIF F, ANEU #### [place] [address] #### CMP, GFR #### [place] [address] ALT [Catalytic activity/Vol] 13 U/L Low 14-59 [facility] ([place]) Comment on above: Performed By: #### CBC, ADIF F, ANEU #### [place] [address] #### CMP, GFR #### [place] [id number] AST [Catalytic activity/Vol] 12 U/L Normal 10-40 [facility] ([place]) Comment on above: Performed By: #### CBC, ADIF F, ANEU #### [address] [address] #### CMP, GFR #### [address] [address] Bili Total 0.3 mg/dL Normal 0.2-1.0 [facility] ([place]) Comment on above: Result Comment: Use of this assay is not recommended for patients undergoing treatment with eltrombopag d ue to the potential for falsely elevated results. Performed By: #### CBC, ADIF F, ANEU #### [address] [address] #### CMP, GFR #### [address] [address] BUN/Creatinine Ratio 14 ratio Normal 7-27 [facility] ([place]) Comment on above: Performed By: #### CBC, ADIF F, ANEU #### [place] [address] #### CMP, GFR #### [address] [address] Calcium [Mass/Vol] 9.2 mg/dL Normal 8.4-10.2 [facility] ([place]) Comment on above: Performed By: #### CBC, ADIF F, ANEU #### [address] [address] #### CMP, GFR #### [address] [address] Chloride [Moles/Vol] 101 mmol/L Normal 98-107 [facility] ([place]) Comment on above: Performed By: #### CBC, ADIF F, ANEU #### [place] [address] #### CMP, GFR #### [address] [address] CO2 [Moles/Vol] 29 mmol/L Normal 23-31 [facility] ([place]) Comment on above: Performed By: #### CBC, ADIF F, ANEU #### [address] [address] #### CMP, GFR #### [address] [address] Creatinine [Mass/Vol] 0.90 mg/dL Normal 0.55-1.02 [facility] ([place]) Comment on above: Performed By: #### CBC, ADIF F, ANEU #### [address] [address] #### CMP, GFR #### [address] [address] Electrolyte Balance 10.0 mEq/L Normal [facility] ([place]) Comment on above: Performed By: #### CBC, ADIF F, ANEU #### [place] [address] #### CMP, GFR #### [place] [id number] Globulin 3.8 G/dL Normal [facility] ([place]) Comment on above: Performed By: #### CBC, ADIF F, ANEU #### [place] [address] #### CMP, GFR #### [address] [address] Glucose [Mass/Vol] 106 mg/dL Normal 80-115 [facility] ([place]) Comment on above: Performed By: #### CBC, ADIF F, ANEU #### [place] [address] #### CMP, GFR #### [address] [address] Potassium [Moles/Vol] 4.5 mmol/L Normal 3.5-5.1 [facility] ([place]) Comment on above: Performed By: #### CBC, ADIF F, ANEU #### [address] [address] #### CMP, GFR #### [place] [id number] Sodium [Moles/Vol] 140 mmol/L Normal 136-145 [facility] ([place]) Comment on above: Performed By: #### CBC, ADIF F, ANEU #### [place] [address] #### CMP, GFR #### [address] [address] Total Protein 6.8 G/dL Normal 6.4-8.2 [facility] ([place]) Comment on above: Performed By: #### CBC, ADIF F, ANEU #### [place] [address] #### CMP, GFR #### [place] [address] Urea nitrogen [Mass/Vol] 13 mg/dL Normal 7-18 [facility] ([place]) Comment on above: Performed By: #### CBC, ADIF F, ANEU #### [place] [address] #### CMP, GFR #### [address] [address] .Auto Diff on 02-27-2020 Basophil, Absolute 0.10 10 3/mcL Normal 0.00-0.19 [facility] ([place]) Comment on above: Performed By: #### CBC, ADIF F, ANEU #### [place] [id number] #### CMP, GFR #### [address] [address] Basophils/100 WBC (Bld) 0.9 % Normal 0.0-2.5 [facility] ([place]) Comment on above: Performed By: #### CBC, ADIF F, ANEU #### [place] [address] #### CMP, GFR #### [address] [address] Eosinophil, Absolute 0.20 10 3/mcL Normal 0.00-0.40 [facility] ([place]) Comment on above: Performed By: #### CBC, ADIF F, ANEU #### [address] [address] #### CMP, GFR #### [address] [address] Eosinophils/100 WBC (Bld) 2.4 % Normal 0.0-7.0 On license of [facility] ([place]) Comment on above: Performed By: #### CBC, ADIF F, ANEU #### [address] [address] #### CMP, GFR #### [address] [address] Lymphocyte, Absolute 1.90 10 3/mcL Normal 0.77-3.85 [facility] ([place]) Comment on above: Performed By: #### CBC, ADIF F, ANEU #### [place] [address] #### CMP, GFR #### [address] [address] Lymphocytes/100 WBC (Bld) 18.7 % Normal 10.0-50.0 On license of [facility] ([place]) Comment on above: Performed By: #### CBC, ADIF F, ANEU #### [place] [address] #### CMP, GFR #### [address] [address] Monocyte, Absolute 0.70 10 3/mcL Normal 0.15-1.00 [facility] ([place]) Comment on above: Performed By: #### CBC, ADIF F, ANEU #### [place] [id number] #### CMP, GFR #### [address] [address] Monocytes/100 WBC (Bld) 7.2 % Normal 1.7-13.0 [facility] ([place]) Comment on above: Performed By: #### CBC, ADIF F, ANEU #### [place] [id number] #### CMP, GFR #### [address] [address] Neutrophils/100 WBC (Bld) 70.8 % Normal 37.0-80.0 On license of [facility] ([place]) Comment on above: Performed By: #### CBC, ADIF F, ANEU #### [place] [id number] [place], [place] [address] #### CMP, GFR #### [address] [address] .GFR on 02-27-2020 GFR Non- 63 ml/min/1.73sqm Normal [facility] ([place]) Comment on above: Result Comment: GFR Population mean for Afri can Burkinan, Non- Americans Ages 20-29 = 116 mL/min/1.73 [...] #### CBC, ADIF F, ANEU #### [place] [id number] [place], [place] [address] #### CMP, GFR #### [address] [address] GFR 77 ml/min/1.73sqm Normal On license of [facility] ([place]) Comment on above: Result Comment: GFR Population mean for Afri can Burkinan, Non- Americans Ages 20-29 = 116 mL/min/1.73 [...] By: #### CBC, ADIF F, ANEU #### [place] [address] #### CMP, GFR #### [place] [address] .NEUABS on 02-27-2020 Neutrophil, Absolute 7.30 10 3/mcL High 2.85-6.16 [facility] ([place]) Comment on above: Performed By: #### CBC, ADIF F, ANEU #### [place] [address] #### CMP, GFR #### [place] [address] CBC on 02-27-2020 Erythrocyte distribution width 16.1 % High 11.5-14.5 [facility] ([place]) (RBC) [Ratio] Comment on above: Performed By: #### CBC, ADIF F, ANEU #### [place] [address] #### CMP, GFR #### [place] [address] Hematocrit (Bld) [Volume 32.7 % Low 37.0-47.0 [facility] ([place] fraction] Comment on above: Performed By: #### CBC, ADIF F, ANEU #### [place] [address] #### CMP, GFR #### [place] [address] Hgb 10.4 G/dL Low 12.0-16.0 [facility] ([place]) Comment on above: Performed By: #### CBC, ADIF F, ANEU #### [place] [address] #### CMP, GFR #### [place] [address] MCH (RBC) [Entitic mass] 30.7 pg Normal 27.0-31.2 [facility] ([place]) Comment on above: Performed By: #### CBC, ADIF F, ANEU #### [place] [address] #### CMP, GFR #### [place] [address] MCHC 31.9 G/dL Low 33.0-37.0 [facility] ([place]) Comment on above: Performed By: #### CBC, ADIF F, ANEU #### [place] [address] #### CMP, GFR #### [place] [address] MCV (RBC) [Entitic vol] 96.2 fL High 80.0-94.0 [facility] ([place]) Comment on above: Performed By: #### CBC, ADIF F, ANEU #### [place] [address] #### CMP, GFR #### [place] [address] Platelet 402 10 3/mcL High 130-400 [facility] ([place]) Comment on above: Performed By: #### CBC, ADIF F, ANEU #### [place] [address] #### CMP, GFR #### [place] [address] Platelet mean volume (Bld) 8.1 fL Normal 7.4-10.4 [facility] ([place]) [Entitic vol] Comment on above: Performed By: #### CBC, ADIF F, ANEU #### [place] [address] #### CMP, GFR #### [place] [address] RBC 3.40 10 6/mcL Low 4.20-5.40 [facility] ([place]) Comment on above: Performed By: #### CBC, ADIF F, ANEU #### [place] [address] #### CMP, GFR #### [place] [address] WBC 10.30 10 3/mcL Normal 4.60-10.80 [facility] ([place]) Comment on above: Performed By: #### CBC, ADIF F, ANEU #### [address] [address] #### CMP, GFR #### [address] [address] CMP on 02-27-2020 Albumin Level 3.0 G/dL Low 3.4-4.8 [facility] ([place]) Comment on above: Performed By: #### CBC, ADIF F, ANEU #### [place] [address] #### CMP, GFR #### [place] [address] Albumin/Globulin [Mass ratio] 0.9 {ratio} Low 1.1-2.5 [facility] ([place]) Comment on above: Performed By: #### CBC, ADIF F, ANEU #### [address] [address] #### CMP, GFR #### [address] [address] ALP [Catalytic activity/Vol] 92 U/L Normal 40-135 [facility] ([place]) Comment on above: Performed By: #### CBC, ADIF F, ANEU #### [place] [address] #### CMP, GFR #### [address] [address] ALT [Catalytic activity/Vol] 19 U/L Normal 14-59 [facility] ([place]) Comment on above: Performed By: #### CBC, ADIF F, ANEU #### [place] [address] #### CMP, GFR #### [address] [address] AST [Catalytic activity/Vol] 15 U/L Normal 10-40 [facility] ([place]) Comment on above: Performed By: #### CBC, ADIF F, ANEU #### [address] [address] #### CMP, GFR #### [address] [address] Bili Total 0.6 mg/dL Normal 0.2-1.0 [facility] ([place]) Comment on above: Result Comment: Use of this assay is not recommended for patients undergoing treatment with eltrombopag d ue to the potential for falsely elevated results. Performed By: #### CBC, ADIF F, ANEU #### [address] [address] #### CMP, GFR #### [address] [address] BUN/Creatinine Ratio 17 ratio Normal 7-27 [facility] ([place]) Comment on above: Performed By: #### CBC, ADIF F, ANEU #### [place] [address] #### CMP, GFR #### [address] [address] Calcium [Mass/Vol] 9.0 mg/dL Normal 8.4-10.2 [facility] ([place]) Comment on above: Performed By: #### CBC, ADIF F, ANEU #### [address] [address] #### CMP, GFR #### [address] [address] Chloride [Moles/Vol] 101 mmol/L Normal 98-107 [facility] ([place]) Comment on above: Performed By: #### CBC, ADIF F, ANEU #### [address] [address] #### CMP, GFR #### [address] [address] CO2 [Moles/Vol] 30 mmol/L Normal 23-31 [facility] ([place]) Comment on above: Performed By: #### CBC, ADIF F, ANEU #### [address] [address] #### CMP, GFR #### [address] [address] Creatinine [Mass/Vol] 0.90 mg/dL Normal 0.55-1.02 [facility] ([place]) Comment on above: Performed By: #### CBC, ADIF F, ANEU #### [address] [address] #### CMP, GFR #### [address] [address] Electrolyte Balance 8.0 mEq/L Normal [facility] ([place]) Comment on above: Performed By: #### CBC, ADIF F, ANEU #### [address] [address] #### CMP, GFR #### [address] [address] Globulin 3.5 G/dL Normal [facility] ([place]) Comment on above: Performed By: #### CBC, ADIF F, ANEU #### [address] [address] #### CMP, GFR #### [address] [address] Glucose [Mass/Vol] 111 mg/dL Normal 80-115 [facility] ([place]) Comment on above: Performed By: #### CBC, ADIF F, ANEU #### [place] [address] #### CMP, GFR #### [address] [address] Potassium [Moles/Vol] 4.6 mmol/L Normal 3.5-5.1 [facility] ([place]) Comment on above: Performed By: #### CBC, ADIF F, ANEU #### [address] [address] #### CMP, GFR #### [address] [address] Sodium [Moles/Vol] 139 mmol/L Normal 136-145 [facility] ([place]) Comment on above: Performed By: #### CBC, ADIF F, ANEU #### [address] [address] #### CMP, GFR #### [address] [address] Total Protein 6.5 G/dL Normal 6.4-8.2 [facility] ([place]) Comment on above: Performed By: #### CBC, ADIF F, ANEU #### [address] [address] #### CMP, GFR #### [address] [address] Urea nitrogen [Mass/Vol] 15 mg/dL Normal 7-18 [facility] ([place]) Comment on above: Performed By: #### CBC, ADIF F, ANEU #### [address] [address] #### CMP, GFR #### [address] [address] ANES POST on 10-09-2019 ANES POST HNO ID: [id number] [facility] Author: Luis Antonio [...] PREOP on 10-09-2019 ANES PREOP HNO ID: [id number] Normal [place] gonzalez Author: Luis Antonio Gamble [...] Sites With Pos itive Rheumatoid Factor (Hcc) Detention Current Use of Immunosuppressive Drug Paroxysmal Atrial [...] 04/26/2017 - COPD (chronic obstructive pulmonary disease) ([facility]) Chronic bronchitis by history. - Hyperglycemia 12/25/2016 [...] mg tablet Take 10 mg by mo [facility] once daily as needed. - rivaroxaban (XARELTO) [...] 10 mg tablet Take 1 tablet by [facility] once daily. - acetaminophen (TYLENOL EXTRA STRENGTH) [...] (XYLOCAINE ) 0.1-0.2 mL INTRADERMAL PRN Indira (Genetics Nurse) Matthias - lactated ringers infusion 50 mL/hr INTRAVENOUS CYNDY TIRSO Jacobson (Genetics Nurse) Matthias 50 mL/hr at 10/09/19 0742 50 [...] October 09, 2019 TIME: 8:17 AM CSN: [id number] HISTORY PHYSICAL on 10-09-2019 HISTORY PHYSICAL HNO ID: [id number] [facility] Author: Jourdan Ruiz Service: General Surgery Author [...] Lymph 1.00 - 4.00 k/uL 1.74 1.11 Collin% % 4.0 3.2 Abs Collin <0.87 k/uL 0.57 0.44 Eosin% % 1.1 [...] and lower endo scopy with MAC in [place] in July 2019, but this was postponed due to go vernment mandate because of COVID-19. Patient is now rescheduled to hav e procedures with Dr. Ruiz in [place] on 10/09/2019. ? The patient denies any [...] mg tablet Take 10 mg by mo [facility] once daily as needed. - rivaroxaban (XARELTO) [...] di agnosis) J84.9 ILD (interstitial lung disease) ([facility]) - COMPOUNDED PRESCRIPTION #1 Continuous Flow Stationar y O2 Concentrator Sig: O2 2l/min liter flow Patient is to keep portablel concentrator as well J43.2 Centrilobular emphysema (HCC) J84.9 ILD (interstitial lung disease) ([facility]) J96.11 Chronic respiratory failure with hypoxia ([facility]) - fluticasone (FLONASE) 50 mcg/actuation nasal spray U se 2 Sprays in each nostril once daily. Rinse mouth after use. - COMPOUNDED PRESCRIPTION Based on 6 minute walk in Ap 2018, patient requires 2 L continuous supplemental oxygen. DME: [facility] are. - leflunomide (ARAVA) 10 mg tablet Take 1 tablet by mo [facility] once daily. - COMPOUNDED PRESCRIPTION Face mask: [...] patient was offered a surgery/procedure at a [facility] facility. The provider and patient [...] NURSING PROG on 10-09-2019 NURSING HNO ID: [id number] [place] [facility] Author: Sanjuanita (Rn) SHALOM [...] by: Sanjuanita Wallis RN NURSING HNO ID: [id number] [facility] Author: Sanjuanita GatesRn) SHALOM [facility] Service: Nursing Author Type: Registered Nurse Type: Nursing Progress Note Filed: 10/09/2019 7:43 AM Note Text: Nursing Progress Note Patient Name: Viivana Santana Patient Location: [place] [facility] End[facility] pt ready for OR, call light in reach, in waiti ng room, needs consent and heart and lung sounds as pre-op visit was via telephone This note was completed by: Sanjuanita Wallis RN PT ED on 10-09-2019 PT ED HNO ID: [id number] [facility] Author: Sanjuanita GatesRn) SHALOM Wallis Service: Nursing [...] By: Sanjuanita Wallis RN In Departme nt: [facility] ENDOSCOPY PT ED HNO ID: [id number] [facility] Author: Sanjuanita GatesRn) SHALOM Wallis Service: Nursing [...] By: Sanjuanita Wallis RN In Departme nt: [facility] ENDOSCOPY SURGICAL PATHOLOGY on 10-09-2019 SURGICAL Specimen originated from [facility] Normal [place] PATHOLOGY Specimen #: [id number] Hospit al Submitting Physician: Jourdan Ruiz M.D. [...] casset zulay. Gross examination performed at [facility], [address] [place] [address] TV 10/09/2019 6:09:01 PM Date of Report: 10/11/2019 Date of Procedure: 10/09/2019 Date of Receipt: 10/09/2019 Submitted by: Jourdan Ruiz M.D. Location: INEND Diagnostic interpretation performed at [facility], [address] [place] [address]. [place] Number: [id number] HISTORY PHYSICAL on 10-06-2019 HISTORY PHYSICAL HNO ID: [id number] [facility] Author: Iqra (Melisa) Lana Service: ? Author [...] recommendation will be communicated [facility] by way of shared medical record or letter. 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 Copd (Chronic Obstructive Pulmonary Disease) (Hcc) Ild (Interstitial Lung Disease) (Hcc) Lung Nodule, Multiple Iatrogenic Adrenal Insufficiency (Hcc) Chronic Respiratory Failure With Hypoxia (Hcc) Rheumatoid Arthritis Involving Multiple Sites With Pos itive Rheumatoid Factor (Hcc) Detention Current Use of Immunosuppressive Drug Paroxysmal Atrial [...] di agnosis) J84.9 ILD (interstitial lung disease) ([facility]) Taking COMPOUNDED PRESCRIPTION #1 Continuous Flow Stationary O2 Concentrator Sig: O2 2l/min liter flow Patient is to keep portablel concentrator as well J43.2 Centrilobular emphysema (HCC) J84.9 ILD (interstitial lung disease) (HCC) J96.11 Chronic respiratory failure with hypoxia ([facility]) Taking fluticasone (FLONASE) 50 mcg/actuation nasal spray [...] fevers. Neuro: No history of TIA's, stroke, PSYCHOMETRICIAN tumor, impaire d sensorium, hemiplegia, paraplegia or [...] No history of HTN, HLD, angina, CHF, WA, cardiac surgery or stent. D enies rest pain, gangrene or revascularization/amputation for PVD. No h istory of palpitations, syncope, DVT, PE or murmur. GI: See HPI : No history of dysuria, frequency or incontinence,, stones or chronic kidney disease, No difficulty urinating, nocturia > 1 time per night or hematuria INSPECTOR ASSEMBLIES AND INSTALLATIONS: Negative for abnormal vaginal bleeding, abnormal vaginal discharge. : Denies, No LMP recorded. Patient is postmen opausal. Endocrine: (+) DMT2- last Hgba1c 06/2019 5.7%. Does not check blood glucose. On PO agent. No hx of thyroid disorder. Uses steroids prn for RA. Hematology: (+) Immunosuppresed with in store representative use of steroids-as needed. Has been using [...] check bl ood glucose. On PO agent. 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 Author Type: Registered Nurse Type: Nursing Progress Note Filed: 10/06/2019 7:28 AM Note Text: Pacc Apt 10/06/19 at 3pm. Chart not reviewed per Pacc Raj catalan. See Epic for HANDP, testing, and results. Covid 10/07/2019. Meri Anglin RN Pacc HOSP on 08-22-2019 HOSP Patient:Viviana Santana [facility] MRN: Height:5' 4 (1.626 m) [...] rhinitis [J31.0] COPD (chronic obstructive pulmonary disease) ([facility]) [J4 4.9] ILD (interstitial lung disease) ([facility]) [J84.9] Lung nodule, multiple [R91.8] Iatrogenic adrenal insufficiency ([facility]) [E27.49] Chronic respiratory failure with hypoxia ([facility]) [J96.11 ] Rheumatoid arthritis involving multiple sites wi th positive rheumatoid factor (HCC) [M05.79] detention current use of immunosuppressive drug [Z79.8 99] [...] the following b asenames: K,HCT Progress Notes ([facility]): Shayna Perez RN 09/18/2019 12:53 [...] Lymph 1.00 - 4.00 k/uL 1.74 1.11 Collin% % 4.0 3.2 Abs Collin <0.87 k/uL 0.57 0.44 Eosin% % 1.1 [...] upper and lower endoscopy with MAC in [place] in July 2019, but this was postponed due to governmen t mandate because of COVID-19. Patient is now rescheduled to have procedure s with Dr. Ruiz in [place] on 10/09/2019. The patient denies any significant [...] di agnosis) J84.9 ILD (interstitial lung disease) ([facility]) - COMPOUNDED PRESCRIPTION #1 Continuous Flow Stationar y O2 Concentrator Sig: O2 2l/min liter flow Patient is to keep portablel concentrator as well J43.2 Centrilobular emphysema ([facility]) J84.9 ILD (interstitial lung disease) ([facility]) J96.11 Chronic respiratory failure with hypoxia ([facility]) - fluticasone (FLONASE) 50 mcg/actuation nasal spray U se 2 Sprays in each nostril once daily. Rinse mouth after use. - COMPOUNDED PRESCRIPTION Ba sed on 6 minute walk in July 2017, patient requires 2 L continuous supplemental oxygen. DME: Mohit. - leflunomide (ARAVA) 10 mg tablet Take 1 tablet by [facility] once daily. - COMPOUNDED PRESCRIPTION Face mask: [...] by the nurse dory salgado reviewed by [place] Nursing Notes: Shayna Perez RN 09/18/2019 12:53 [...] offered a stuart rgery/procedure at a [facility] facility. The provider and patient have [...] 02-16-2022 Systolic blood 131 mm[Hg] Chair Bath [facility] 12:54-0400 pressure 02-06-2022 Body height 160 cm Junior Mathew MD [facility] [id number]:[id number] Work Phone: 02-06-2022 Body weight 84.37 kg Junior Mathew MD [facility] 14:440400 Work Phone: 02-06-2022 Diastolic blood 74 mm[Hg] Junior Mathew MD [facility] 14:440400 pressure Work Phone: 02-06-2022 Heart rate 88 /min Junior Mathew MD [facility] [id number]:440400 Work Phone: 02-06-2022 Respiratory rate 20 /min Junior Mathew MD [facility] [id number]:440400 Work Phone: 02-06-2022 SaO2% (BldA) [Mass 96 % Junior Mathew MD [facility] 14:440400 fraction] Work Phone: 02-06-2022 Systolic blood 106 mm[Hg] Junior Mathew MD [facility] 14:440400 pressure Work Phone: 01-30-2022 Body temperature 94.6 [degF] Asia Calderón MD [facility] 11:380400 Work Phone: 01-30-2022 Diastolic blood 78 mm[Hg] Asia Calderón MD [facility] 11:380400 pressure Work Phone: 01-30-2022 Heart rate 94 /min Asia Calderón MD [facility] 11:380400 Work Phone: 01-30-2022 Respiratory rate 20 /min Asia Calderón MD [facility] 11:380400 Work Phone: 01-30-2022 SaO2% (BldA) [Mass 97 % Asia Calderón MD [facility] 11:380400 fraction] Work Phone: 01-30-2022 Systolic blood 130 mm[Hg] [facility] 11:38-0400 pressure Work Phone: 01-01-2022 Heart rate 86 /min Sirena Royal ROOM SERVER.WAD IMPREGNATOR Cl [facility] 14: Work Phone: 01-01-2022 Respiratory rate 16 /min Sirena Royal ROOM SERVER.CN P [facility] 14:25 Work Phone: 01-01-2022 SaO2% (BldA) [Mass 98 % Sirena [place] ROOM SERVER. WAD IMPREGNATOR [facility] 14:25040 fraction] Work Phone: 12-23-2021 Body [...] 13:47-0400 12-23-2021 SaO2% (BldA) [Mass 94 % [facility] 13:47-0400 fraction] 12-23-2021 Systolic blood 117 [...] 11-10-2021 Body temperature 97.9 [degF] Chair [facility] 12:520400 Work Phone: 11-10-2021 Body weight 79.92 kg Chair [facility] 12:52-0400 Work Phone: 11-10-2021 Diastolic blood 64 mm[Hg] Chair [facility] 12:52-0400 pressure Work Phone: 11-10-2021 Heart rate 98 /min [facility] 12:52-0400 Work Phone: 11-10-2021 Respiratory rate 20 /min [facility] 12:52-0400 Work Phone: 11-10-2021 SaO2% (BldA) [Mass 97 % [facility] 12:52-0400 fraction] Work Phone: 11-10-2021 Systolic blood 119 mm[Hg] [facility] 12:52-0400 pressure Work Phone: 10-30-2021 Heart rate 88 /min Rick Feng MD [facility] 09:59-0400 Work Phone: 10-30-2021 Respiratory rate 20 /min Rick Feng MD [facility] 09:59-0400 Work Phone: 10-30-2021 SaO2% (BldA) [Mass 97 % Rick Feng MD [facility] 09:59-0400 fraction] Work Phone: 09-23-2021 Body weight 80.29 kg FORTINO Becerra PA-C [facility] 14:44-0400 Work Phone: 09-23-2021 Diastolic blood 70 mm[Hg] NA Becerra ANDREA [facility] 14:44-0400 pressure Work Phone: 09-23-2021 Heart rate 85 /min NA Hernan RICARDOJorge AlbertoDeja [facility] 14:44-0400 Work Phone: 09-23-2021 SaO2% (BldA) [Mass 96 % NA Becerra ANDREA [facility] 14:440400 fraction] Work Phone: 09-23-2021 Systolic blood 120 mm[Hg] NA Hernan RICARDOJorge AlbertoDeja [facility] 14:440400 pressure Work Phone: 09-18-2021 Body height 160 cm Asia Calderón MD [facility] 11: Work Phone: 09-18-2021 Body temperature 96.21 [degF] Asia Calderón MD [facility] 11: Work Phone: 09-18-2021 Body weight 81.19 kg Asia Calderón MD [facility] 11: Work Phone: 09-18-2021 Diastolic blood 88 mm[Hg] Asia Calderón MD [facility] 11: pressure Work Phone: 09-18-2021 Heart rate 82 /min Asia Calderón MD [facility] 11: Work Phone: 09-18-2021 Respiratory rate 20 /min Asia Calderón MD [facility] 11: Work Phone: 09-18-2021 Systolic blood 148 mm[Hg] Asia Calderón MD [facility] 11: pressure Work Phone: 09-08-2021 Body height 162.6 cm Yovani Piedra DO [facility] 15: Work Phone: 09-08-2021 Body weight 82.42 kg Yovani Piedra DO [facility] 15: Work Phone: 09-08-2021 Diastolic blood 58 mm[Hg] Yovani Piedra DO [facility] 15: pressure Work Phone: 09-08-2021 Heart rate 86 /min Yovani Piedra DO [facility] 15: Work Phone: 09-08-2021 SaO2% (BldA) [Mass 94 % Yovani Piedra DO [facility] 15:040 fraction] Work Phone: 09-08-2021 Systolic blood 102 mm[Hg] Yovani iPedra DO [facility] 15: pressure Work Phone: 08-07-2021 Body weight 84.37 kg Respiratory Wstr [facility] 13:50-0400 Work Phone: 08-07-2021 Diastolic blood 77 mm[Hg] Jacquelin Patel PA-C [facility] 13:50-0400 pressure Work Phone: 08-07-2021 Heart rate 93 /min Jacquelin Patel PA-C [facility] 13:50-0400 Work Phone: 08-07-2021 SaO2% (BldA) [Mass 96 % Jacquelin Patel PA-C [facility] 13:50-0400 fraction] Work Phone: 08-07-2021 Systolic blood 131 mm[Hg] Jacquelin Patel PA-C [facility] 13:50-0400 pressure Work Phone: 08-07-2021 Body height 162.6 cm Respiratory Wstr [facility] 13:000400 Work Phone: 08-07-2021 Diastolic blood 65 mm[Hg] Respiratory [facility] 13:000400 pressure Work Phone: 08-07-2021 Heart rate 91 /min [facility] 13:00-0400 Work Phone: 08-07-2021 Respiratory rate 16 /min Respiratory Wstr [facility] 13:000400 Work Phone: 08-07-2021 SaO2% (BldA) [Mass 98 % Respiratory Wstr [facility] 13:000400 fraction] Work Phone: 08-07-2021 Systolic blood 119 mm[Hg] Respiratory Wstr [facility] 13:000400 pressure Work Phone: Encounters Encounter Date Encounter Type Care Provider Facility Start: 04-03-2022 Orders Only Asia Abel Work Phone: [facility] Start: 03-30-2022 Telephone encounter Alexa Becerra PA-C [facility] Luisana Work Phone: Comment on above: Patient Update Start: 03-17-2022 ambulatory YANCI BECERRA Facility:[facility] End: 03-17-2022 Hospital Start: 03-16-2022 ambulatory Alexa BECERRA Facility:[facility] End: 03-16-2022 Start: 03-16-2022 ambulatory Chair 5 [facility]/On cology End: 03-16-2022 Work Phone: Comment on above: Other osteoporosis without c urrent pathological fracture (Primary Dx); 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) Start: 03-09-2022 Orders Only Asia england Work Phone: [place] [facility] Start: 03-04-2022 Documentation Mammography Coordinator [facility] procedure MAIN Start: 03-04-2022 Letter encounter Mammography Coordinator [facility] Department Start: 03-04-2022 Refill Alexa Becerra PA-C [facility] End: 03-04-2022 Work Phone: [place] Comment on above: Refill Request Start: 02-23-2022 ambulatory [facility] Facility:[facility] End: 02-23-2022 Start: 02-16-2022 ambulatory Chair 4 [facility] Hematology/On cology End: 02-16-2022 Comment on above: Other osteoporosis without c urrent pathological fracture (Primary Dx); 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) Start: 02-10-2022 Telephone encounter Asia Calderón MD [facility] [place] Work Phone: [facility] Comment on above: Orders (RECLAST) Start: 02-09-2022 Orders Only Asia Calderón MD [facility] tomás [place] Work Phone: [facility]ology [facility] Arth[facility] Start: 02-06-2022 ambulatory YANCI BECERRA Facility:[facility] End: 02-06-2022 [facility] Start: 02-06-2022 Patient encounter Junior Mathew MD [facility] End: 02-06-2022 procedure Work Phone: Comment on above: Interstitial pulmonary disea se (HCC) (Primary Dx); Rheumatoid lung (HCC); Bronchiectasis without compl ication (HCC); Moderate COPD (chronic obstr uctive pulmonary disease) (HCC); Chronic respiratory failure with hypoxia (HCC) Start: 01-30-2022 ambulatory Alexa BECERRA [facility] End: 01-30-2022 Start: 01-30-2022 Patient encounter Asia Calderón MD [facility] [place] End: 01-30-2022 procedure Work Phone: [facility] Comment on above: 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); Vitamin D deficiency; Other osteoporosis without c urrent pathological fracture Start: 01-19-2022 ambulatory Alexa BECERRA Facility[facility] End: 01-19-2022 Start: 01-12-2022 Orders Only Asia Calderón MD [facility] [place] [facility] Work Phone: Rheum atology and Arthritis Comment on above: Population Health Navigation Outreach ([facility] care gaps) Start: 01-01-2022 ambulatory Alexa BECERRA Facility:[facility] End: 01-01-2022 Start: 01-01-2022 Patient encounter Sirena Royal ROOM SERVER.WAD IMPREGNATOR [facility] End: 01-01-2022 procedure Work Phone: [facility] Comment on above: Chronic pain syndrome (Prima ry Dx); Generalized OA; Myofascial pain Start: 12-26-2021 ambulatory YANCI BECERRA Facility:[facility] End: 12-27-2021 Start: 12-23-2021 ambulatory Chair 1 [facility] [place] Hematology/On cology End: 12-23-2021 Comment on above: 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) (Violette joseph Dx) Start: 12-10-2021 ambulatory Alexa BECERRA Facility:[facility] Start: 12-10-2021 [facility] [place] [facility] End: 12-10-2021 visit by physician MAKI Comment on above: 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 current use of sys temic steroids [Z79.52] Start: 12-08-2021 ambulatory Mikal Cuellar PA-C [facility] [place] End: 12-08-2021 Work Phone: [facility] Rheumatology [facility] Arthritis Comment on above: 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) (Primary Dx); Current chronic use of syste riccardo steroids; High risk medication use; Vitamin D deficiency Start: 12-08-2021 Telemedicine Mikal Cuellar PA-C [facility] End: 12-08-2021 consultation with Work Phone: patient Start: 12-05-2021 Refill Asia Calderón MD [facility] Work Phone: [facility] Rheumatology and Arthritis Comment on above: Refill Request Start: 11-27-2021 Telephone encounter Rick Feng MD Radiology Work Phone: Comment on above: Medication Problem Start: 11-24-2021 ambulatory Chair 2 [facility] [place] Hematology/On cology End: 11-25-2021 Work Phone: Comment on above: 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) (Violette joseph Dx) Start: 11-12-2021 ambulatory Alexa Becerra PA-C Internal Medicine Main Work Phone: Genny s Start: 11-10-2021 ambulatory Chair 2 [facility] [place] Hematology/On cology End: 11-10-2021 Work Phone: Comment on above: 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) (Violette joseph Dx) Start: 11-05-2021 ambulatory Alexa BECERRA Facility:[facility] End: 11-05-2021 Start: 11-04-2021 Refill M Adelina Becerra PA-C Family M sarah [facility]ber[facility] Work Phone: Comment on above: Refill Request Start: 10-30-2021 ambulatory RICK FENG Facility:[facility] End: 10-30-2021 Start: 10-30-2021 Patient encounter [facility] End: 10-30-2021 procedure Work Phone: [facility] Comment on above: Chronic pain syndrome (Prima ry Dx); Generalized OA; Myofascial pain Start: 10-23-2021 Telephone encounter Asia Calderón MD [facility] Work Phone: Rheum atology Comment on above: APPROVED-NO PA REQ (Orencia APPROVED NO PA REQ [id number] 11.10.2021 - 11.10.2022 12) Start: 10-23-2021 ambulatory YANCI BECERRA Facility:[facility] End: 10-23-2021 Hospital Start: 10-22-2021 ambulatory Asia Calderón MD [facility] General End: 10-22-2021 Work Phone: Rheum atology and Arthritis Comment on above: 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) (Primary Dx); detention current use of sys temic steroids; Current chronic use of syste riccardo steroids; Pain in joint, multiple site s; High risk medication use Start: 10-22-2021 Telemedicine Asia Calderón MD [facility] End: 10-22-2021 consultation with Work Phone: patient Start: 10-13-2021 ambulatory Peggy Bekesz bank runner Ca re Management Comment on above: ACM INEZ RN (Suspect Condition Review) Start: 09-23-2021 ambulatory YANCI BECERRA Facility:[facility] End: 09-23-2021 Hospital Start: 09-23-2021 Patient encounter Alexa Jarrett [facility] [place] End: 09-23-2021 procedure Work Phone: Comment on above: Hypertriglyceridemia (Primar y Dx); Paroxysmal atrial fibrillati on (HCC); Chronic respiratory failure with hypoxia (HCC); Type 2 diabetes mellitus wit hout complication, without long-term current use of insulin (HCC); 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); Elevated ferritin; Iatrogenic adrenal insuffici ency (HCC); Lung nodule, multiple; detention current use of imm unosuppressive drug; Pre-diabetes; CESAR (obstructive sleep apnea ); Hyperthyroidism Start: 09-19-2021 ambulatory YANCI BECERRA Facility:[facility] End: 09-19-2021 Hospital Start: 09-19-2021 Patient encounter [...] 09-18-2021 Patient encounter Asia Calderón MD [facility] [place] End: 09-18-2021 procedure Work Phone: Gener al Rheumatology and Arthritis Comment on above: 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) (Primary Dx); Pain in joint, multiple site s; 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 current use of sys temic steroids; Osteoporosis, unspecified os teoporosis type, unspecified pathological fracture presence Start: 09-11-2021 Refill Alexa Becerra PA-C [facility] [place] Work Phone: Comment on above: Refill Request Start: 09-09-2021 ambulatory [facility] Facility:[facility] End: 09-09-2021 Hospital Start: 09-08-2021 ambulatory [facility] Facility:[facility] End: 09-08-2021 Hospital Start: 09-08-2021 Patient encounter Yovani Piedra DO Card iology End: 09-08-2021 procedure Work Phone: Comment on above: Paroxysmal atrial fibrillati on (HCC) (Primary Dx); Inappropriate sinus tachycar ivette; Chronic anticoagulation; Hyperlipidemia, mixed; ILD (interstitial lung disea se) ([facility]); Panlobular emphysema (HCC); Chronic respiratory failure with hypoxia (HCC); Rheumatoid arthritis involvi ng multiple sites with positive rheumatoid factor ([facility]) Start: 08-21-2021 Refill Alexa Lieberman Work Phone: Comment on above: Refill Request Start: 08-07-2021 ambulatory [facility] Facility:[facility] End: 08-07-2021 Hospital Start: 08-07-2021 ambulatory Respiratory Therapist [facility] End: 08-07-2021 Work Phone: Comment on above: Spirometry Start: 08-07-2021 Patient encounter Respiratory Therapist [facility] End: 08-07-2021 procedure Work Phone: EDI MANCILLA Comment on above: Stage 3 severe COPD by GOLD classification (HCC) (Primary Dx); Bronchiectasis without compl ication (HCC); ILD (interstitial lung disea se) ([facility]); Chronic respiratory failure with hypoxia (HCC) Start: 08-01-2021 Telephone encounter Alexa Oliva ly Medicine Work Phone: Trav lee Comment on above: Medication Request Start: 06-23-2021 [facility] Facility:[facility] End: 06-23-2021 Start: 06-19-2021 ambulatory [facility] Facility:[facility] End: 06-19-2021 Start: 06-10-2021 ambulatory Alexa BECERRA Facility:[facility] End: 06-10-2021 Start: 05-12-2021 ambulatory Alexa BECERRA [facility] End: 05-13-2021 Start: 04-25-2021 ambulatory Alexa BECERRA [facility] End: 04-25-2021 Start: 04-01-2021 ambulatory YANCI BECERAR [facility] End: 04-01-2021 Procedures Date [...] Activity Detail Author Start: Colonoscopy COLONOSCOPY [facility] 10-08-2029 Start: COLORECTAL CANCER COLORECTAL CANCER SCREENING [facility] 10-08-2029 SCREENING Start: Urine microalbumin DTAP,TDAP,TD (2 - Td or Tdap) [facility] 11-28-2028 profile Start: Mammography MAMMOGRAM [facility] 03-04-2023 Start: ANNUAL PCP TEAM ANNUAL PCP TEAM CHRONIC [facility] 12-26-2022 CHRONIC DISEASE VISIT DISEASE VISIT Start: Adult depression DEPRESSION SCREENING [facility] 10-30-2022 screening assessment Start: ANNUAL PCP TEAM ANNUAL PCP TEAM CHRONIC [facility] 09-23-2022 CHRONIC DISEASE VISIT DISEASE VISIT Start: Hepatitis C antibody, DILATED RETINAL EXAM [facility] 09-19-2022 confirmatory test Start: ANNUAL PCP TEAM [facility]AL [facility] CHRONIC DISEASE VISIT DISEASE VISIT Start: PNEUMOCOCCAL (4 - PNEUMOCOCCAL (4 - PPSV23 if [facility] 2022 PPSV23 if available, available, else PCV20) else PCV20) Start: PNEUMOCOCCAL (4 - PNEUMOCOCCAL (4 - PPSV23 or Cl [facility] 2022 PPSV23 or PCV20) PCV20) Start: HPV TESTING HPV TESTING [facility] 03-26-2022 Start: PAP TESTING PAP TESTING [facility] 03-26-2022 Start: Hemoglobin HBA1C [facility] 03-12-2022 A1c/Hemoglobin.total in Blood Start: 12-24-2021 Hemoglobin HGB A1C Lab Routine Type 2 [facility] End: 02-23-2022 A1c/Hemoglobin.total diabetes mellitus without W ork Phone: in Blood complication, without long-term current use of insulin (HCC) Hyperthyroidism Hypertriglyceridemia Expected: 12/24/2021, Expires: 02/23/2022 Comment on above: Expected: 12/24/2021, s: 02/23/2022 Start: 12-24-2021 LIPID PANEL LIPID PANEL BASIC Lab Routine [facility] End: 02-23-2022 BASIC Type 2 diabetes mellitus Work Ph one: without complication, without long-term current use of insulin (HCC) Hyperthyroidism Hypertriglyceridemia Expected: 12/24/2021, Expires: 02/23/2022 Comment on above: Expected: 12/24/2021, s: 02/23/2022 Start: 12-18-2021 Influenza vaccination INFLUENZA (#1) [facility] Start: 09-27-2021 Hepatitis C antibody, DILATED RETINAL EXAM [facility] confirmatory test Start: 07-03-2021 COVID-19 VACCINE (4 - COVID-19 VACCINE (4 - Cl [facility] Booster for Pfizer Booster for Pfizer series) series) Start: 06-27-2021 COVID-19 VACCINE (4 - COVID-19 VACCINE (4 - Cl [facility] Booster for Pfizer Booster for Pfizer series) series) Start: 06-17-2021 Hepatitis B surface LDL CHOLESTEROL [facility] antibody level Start: 05-30-2021 COVID-19 VACCINE (4 - COVID-19 VACCINE (4 - Cl [facility] Booster for Pfizer Booster for Pfizer series) series) Start: 04-19-2021 DEPRESSION ASSESSMENT DEPRESSION ASSESSMENT [facility] Start: 03-05-2021 Hepatitis B screening URINE [facility] ALBUMIN:CREATININE RATIO Start: 12-18-2020 Hemoglobin HBA1C [facility] A1c/Hemoglobin.total in Blood Start: 02-14-2020 Adult depression DEPRESSION SCREENING [facility] screening assessment Start: 12-27-2019 Mammography MAMMOGRAM [facility] Start: 12-01-2019 FECAL OCCULT BLOOD FECAL OCCULT BLOOD [facility] Start: 2007 SHINGRIX VACCINE (1 of SHINGRIX VACCINE ([address] [facility] 2) 2) Start: 2002 COLOGUARD (FIT-DNA) COLOGUARD (FIT-DNA) [facility] Start: [address] COLONOGRAPHY [facility] Start: 2002 SIGMOIDOSCOPY SIGMOIDOSCOPY [facility] Start: 1976 SHINGRIX VACCINE (1 of SHINGRIX VACCINE ([address] [facility] 2) 2) Start: 1975 HIV SCREENING HIV SCREENING [facility] Start: 1967 3 comp foot exam DIABETIC FOOT EXAM [facility] completed Ct thorax w/o contrast [facility] End: 03-08-2023 material Radiology Routine Work Phone: Interstitial pulmonary disease (HCC) 1 Occurrences starting 02/06/2022 until 03/08/2023 Comment on above: 1 Occurrences starting 02/06 until 03/08/2023 Dxa bone density DXA-AXIAL SKELETON [facility] End: 10-18-2022 study 1/> sites Radiology Routine Long Work Phon e: axial skel term current use of systemic steroids Osteoporosis, unspecified osteoporosis type, unspecified pathological fracture presence Rheumatoid arthritis involving multiple sites with positive rheumatoid factor (HCC) 1 Occurrences starting 09/18/2021 until 10/18/2022 Comment on above: 1 Occurrences starting 09/18 until 10/18/2022 Dxa bone density study 1/> sites [facility] End: 12-10-2021 axial skel Work Phone: Comment on above: 1 Occurrences starting 12/10 until 12/10/2021 Screening mammography ERNIE SCREENING [facility] End: 12-12-2022 bi 2-view breast inc Radiology Routine Work Phon e: cad Encounter for screening mammogram for breast cancer 1 Occurrences starting 11/12/2021 until 12/12/2022 Comment on above: 1 Occurrences starting 11/12 until 12/12/2022 [facility] Immunizations Immunization Date Immunization Notes Care Provider Facility 02-06-2021 influenza, injectable, NA Becerra PA-C [facility] quadrivalent, contains Work Phone: Work Phone: preservative 07-27-2020 COVID-19 vaccine, age NA Becerra PA-C [facility] 12+ yr ([employer] Work Phone: Work Phone: - PURPLE TOP) 07-06-2020 COVID-19 vaccine, age NA Becerra PA-C [facility] 12+ yr ([employer] Work Phone: Work Phone: - PURPLE TOP) 02-03-2020 influenza, seasonal, NA Becerra PA-C [facility] injectable, preservative Work Phone: Work Phone: free 03-02-2019 pneumococcal conjugate NA Becerra PA-C [facility] vaccine, 13 valent Work Phone: 02-10-2019 influenza, injectable, NA Becerra PA-C [facility] quadrivalent, contains Work Phone: preservative 01-04-2019 influenza, seasonal, NA Beecrra PA-C [facility] injectable, preservative Work Phone: [phone] free 11-28-2018 tetanus toxoid, reduced NA Becerra PA-C [facility] diphtheria toxoid, and Work Phone: Work Phone: acellular pertussis vaccine, adsorbed 03-24-2018 influenza, injectable, NA Becerra PA-C [facility] quadrivalent, contains Work Phone: preservative 01-19-2017 influenza, injectable, NA Becerra PA-C [facility] quadrivalent, Work Phone: preservative free 01-19-2017 pneumococcal [facility] vaccine, Work Phone: 23 valent 01-15-2012 influenza virus vaccine, NA [facility] unspecified formulation Work Phone: 03-10-2011 influenza virus vaccine, NA [facility] unspecified formulation Work Phone: 03-10-2011 pneumococcal NA [facility] polysaccharide vaccine, Work Phone: 23 valent Payers Date Payer Category Payer Medicare UHC MEDICARE UHC DUAL [id number] COMPLETE O SNP [id number] 2021-Present [id number] [address] [place] [id number] Medicare 2021 Medicare UHC MEDICARE UHC DUAL [id number] COMPLETE HMO SNP [id number] 2021-Present [phone] [address] [place] [address] Medicare 2021 Unknown [id number] 2020 Medicaid [employer] [id number] [facility] MEDICAID [id number] 2020-Present [phone] [address] [place] [address] Medicaid 2020 Medicaid [employer] [facility] [id number] [employer] [id number] 2020-Present [phone] [address] [place] [address] Medicaid 2020 Medicaid [id number] Social History Date Type Detail Facility Start: 02-16-2011 Tobacco smoking status [facility] End: 12-26-2021 [facility] Start: 01-01-1970 History of tobacco use Current smoker [facility] End: 09-09-2010 Start: 02-16-2011 Cigarettes smoked current 0.5 [facility] End: 12-26-2021 (pack per day) - [...] Drinks Start: 12-19-2021 History SDOH Social 98 [facility] Get Together Start: 12-19-2021 History SDOH Social 3 [facility] Living Medical Equipment Procedure Code Equipment Code Equipment Original Equipment Identifi er Dates Text Lens Iol Ultrasert [id number] Start: 18.5 - [id number] 12-15-2017 Lens Iol Ultrasert [id number] Start: 18.5 - [id number] 01-05-2018 Clinical Notes 05-12-2019 to 03-30-2022 Telephone Encounter - Leslie Walker Ma - 03/30/2022 5:02 PM ESTTelephone Encounter - Alexa Becerra PA-C - 03/30/2022 3:13 PM ESTTelephone Encounter - Suzy Haynes RN - 03/30/2022 10:00 AM EST Note Date & Type Note Facility 03-30-2022 Miscellaneous Formatting of this note migh t be different from the original. [facility] Notes notified of provider message Formatting of this note might be differe nt from the original. Sounds like the appropriate treatment wa s completed,. Let me know if anything is worsening. Her WBC was elevated 21.3, a bs neut 17.5 this may have been from in store representative prednisone though it was stopped mid Novmber. [...] in this encounter 03-17-2022 Note HNO ID: [id number] [facility] Author: Yovani Piedra, DO Carlos andrade Service: ? Author Type: Physician Type: Progress Notes Filed: 03/17/2022 3:48 PM Note Text: [facility] Heart and Vascular [place] Sanjiv Sprague Department of Cardiovascular Medicine SECTION [...] ory failure again. She did got to [facility] for pneu monia admit in January 2019: Preadmission evaluation: SOB and cough x 2 days. No fever. had URI. Which facility: [facility] Dates of visit: !-02/02/19 Primary Diagnosis/es: [...] was printed off for her at t [facility] visit. She did not send in the paperwork because she's had significant life stressors over the past month. Her son is in rehab for a drug ad diction, and this has consumed the majority of her time. She was admitted [facility] in April 2017 with sepsis and [...] bronchiectasis. She follows with pulmonary at the [facility] now. There was a note that they [...] t be different from the original. [facility] Notes March 04, 2022 PID: [id number] Viviana Santana [address] [place] [id number] Dear Ms. Santana, Your recent breast imaging e xam on 03/04/2022 showed a possible finding that requires additional imaging studies for a complete evaluation. Most such findings are probably benign (not cancer). If you have a healthcare pro vider who ordered/prescribed your screening mammogram: Please call [phone] or [phone]: [phone] to schedule an appointment for your additional imaging (if you have not already done so). If you DO NOT have a [facility] are provider (ie you did not have [...] orts are kept on file at [facility] as part of your permanent medical record, and are available for your continuing care. Thank you for allowing us to help in harish ting your health care needs. Sincerely, Dr. Henderson Interpreting Radiologist [facility] (Additional imaging) documented in this encounter 03-04-2022 Note HNO ID: [id number] [facility] Author: Tammi Cates [place] and Service: ? Author Type: Neuropathologist Type: Progress Notes Filed: 03/04/2022 1:52 PM [...] DATA: Not applicable SIGNED BY: Tammi Cates [employer] March 04, 2022 1:52 PM 03-04-2022 Miscellaneous Formatting of this note is d ifferent from the original. [facility] Notes Patient has been identified by [...] in this encounter 02-23-2022 Note HNO ID: [id number] [facility] Author: RT Conchis(R) Justin parks Service: ? Author Type: Neuropathologist Type: Progress Notes Filed: 02/23/2022 1:50 PM [...] ASIA CALDERÓN on: 1 10:[address] [facility] Notes Modules accepted: Orders Formatting of this note might be differe nt from the original. Patient does not have active orders for Reclast. Please place orders so we can get her sc heduled at [facility]. Thanks, Sayda Jimenez LPN documented in this encounter 02-06-2022 Note HNO ID: [id number] [facility] Author: MD Adore Newman Service: ? Author Type: Physician Type: Progress Notes Filed: 02/06/2022 8:36 PM Note Text: . [facility] [place] Note Patient name: Viviana Santana PCP: Alexa [...] on inhaled therapy. 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 Current [...] Abs Lymph 1.00 - 4.00 k/uL 1.56 Collin% % 5.5 Abs Collin <0.87 k/uL 0.69 Eosin% % 3.3 Abs Eosin <0.46 k/uL 0.42 Baso% % 1.0 Abs Baso <0.11 k/uL 0.13 High Immature Gran % % 0.4 Abs Immature Gran <0.10 k/uL 0.05 NRBC /100 WBC 0.0 Absolute nRBC <0.01 k/uL <0.01 Diff Type Auto Imaging / Diagnostic Studies: Reviewed CT from [facility] 08/2020: I personally reviewed images which [...] is different f rom the original. [facility] Present illness Narrative Images from the original note were not included. . [facility] [place] Note Patient name: Viviana Santana PCP: Alexa [...] inhaled the rapy. 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 Current [...] Abs Lymph 1.00 - 4.00 k/uL 1.56 Collin% % 5.5 Abs Collin <0.87 k/uL 0.69 Eosin% % 3.3 Abs Eosin <0.46 k/uL 0.42 Baso% % 1.0 Abs Baso <0.11 k/uL 0.13 High Immature Gran % % 0.4 Abs Immature Gran <0.10 k/uL 0.05 NRBC /100 WBC 0.0 Absolute nRBC <0.01 k/uL <0.01 Diff Type Auto Imaging / Diagnostic Studies: Reviewed CT from [facility] 08/2020: I personally reviewed images which [...] which included preparing to see the patient, [id number] patient care, completing clinical documentation, obtaining and/or reviewing separately obtained history, performing a medically appropriate examination, ordering medications, tests, or procedures, and independently interpreting results (not separately reported). Junior Mathew MD [facility] [place] documented in this encounter 01-30-2022 Note HNO ID: [id number] [facility] Author: Asia Calderón MD Center Service: ? [...] with RA 2016. She was admitted at [facility] - double pneumonia, RA. She was [...] polyneuropath y. She follows with pulm in [place]. RA, chronic steroids, adrenal insuff Family h/o [...] unspecified Asthma Atrial fibrillation (HCC) 05/10/2017 admit [place] new onset AF, hyperthyroid lb with normal [...] is different f rom the original. [facility] Present illness Narrative RHEUMATOLOGY PROGRESS NOTE [...] with RA 2017. She was admitted at [facility] - double pneumonia, RA. She was [...] polyneuropath y. She follows with pulm in [place]. RA, chronic steroids, adrenal insuff Family h/o [...] this encounter 01-12-2022 Note Patient Outreach (JAVIER) [facility] [place] VIVIANA SANTANA ([id number]) 1955 F Date Time Provider Department 01/12/22 LUIS MIGUEL LEVY During your visit today, we recorded the following information about you: Luis Miguel Levy MA 01/12/2022 12:24 PM [facility] POPULATION HEALTH NAVIGATION OUTREACH Action/FYI Called [...] Care Gap or Scheduling/Wellness visits Payer: Payor: [facility] MEDICARE / Plan: [facility] DUAL COM PLETE HMO SNP / Product [...] Population Health Navigation Outreach [3 910] Cmt: [facility] care gaps Prescriptions as of 01/12/2022 - [...] Accessories for nebulizer J43.1 Panlobul ar emphysema ([facility]) (primary encounter diagnosis) J84.9 ILD (intersti tial lung disease) ([facility]) - COMPOUNDED PRESCRIPTION #1 Continuous Flow Stationary O2 Concent rator Sig: O2 2l/min liter flow Patient is to keep portablel concentrato r as well J43.2 Centrilobular emphysema ([facility]) J84.9 ILD (interstitial lung disease) ([facility]) J96.11 Chronic respiratory failure with hypoxia ([facility]) - COMPOUNDED PRESCRIPTION Face mask: hypoxia - [...] content not included)... 01-12-2022 Note HNO ID: [id number] [facility] Author: Luis Miguel Levy MA [place] Service: ? Author Type: Hand Assembler Type: Progress Notes Filed: 01/12/2022 12:24 PM [...] Care Gap or Scheduling/Wellness visits Payer: Payor: [facility] MEDICARE / Plan: [facility] DUAL COM PLETE HMO SNP / Product [...] is different f rom the original. [facility] Present illness Narrative POPULATION HEALTH NAVIGATION OUTRE ACH Action/FYI Called and left a message to call [phone], to discuss health maintenance items that are [...] Care Gap or Scheduling/Wellness visits Payer: Payor: [facility] MEDICARE / Plan: [facility] DUAL COMPLETE HMO SNP / Product Type: [...] in this encounter 01-01-2022 Note HNO ID: [id number] [facility] Author: Sirena Royal APRN.WAD IMPREGNATOR Ronn ter Service: ? Author Type: Nurse Practitioner Type: Progress Notes Filed: 01/01/2022 2:42 PM Note Text: [facility] [place] [facility] Today's Date: 01/01/2022 Last Visit: 10/30/21 [...] vity was identified. 01/01/2022 by Sirena Royal APRN.WAD IMPREGNATOR Last Drug screen: Not Applicable Risk Assessment: [...] content not included)... 01-01-2022 Note HNO ID: [id number] [facility] Author: Lilian White MA Center Service: ? Author Type: Hand Assembler Type: Progress Notes Filed: 01/01/2022 2:42 PM [...] not n ervous/anxious. 01-01-2022 Instructions Sirena Royal APRN.WAD IMPREGNATOR - 01/01/2022 2:42 PM EDT [facility] Activity as tolerated Use Ice and/or heat as tolerated as need ed documented in this encounter 01-01-2022 History of Formatting of this note is different f rom the original. [facility] Present illness Narrative Images from the original note were not included. [facility] [place] [facility] Today's Date: 01/01/2022 Last Visit: 10/30/21 [...] activity was identified. 01/01/2022 by Sirena Royal APRN.WAD IMPREGNATOR Last Drug screen: Not Applicable Risk Assessment: [...] Gabapentin as directed (managed by PCP) Functional Synagogue: No changes-cyndy nue current regimen Additional Studies: [...] decision making from today's date. Sirena Royal APRN.WAD IMPREGNATOR Pain Management [facility] [place] [facility] ystem Formatting of this [...] in this encounter 12-26-2021 Note HNO ID: [id number] [facility] Author: Alexa Becerra PA-C [place] Service: ? Author Type: Physician Basket Operator Type: Progress Notes Filed: 12/27/2021 12:50 PM [...] - 4.00 k/uL 2.11 1.19 1.5 2 Collin% % 5.9 4.2 3.8 Abs Collin <0.87 k/uL 0.56 0.44 0.40 Eosin% % [...] of systemic steroids Iatrogenic adrenal insufficiency (hcc) detention current use of immunosuppressi ve drug Chronic neutrophilia Current medications: leflunomide 20mg I tab daily Prednisone 4 mg daily and weaning Current doing well, pain controlled, goo d mobility Elevated ferritin Coming down on prednisone Component Latest R (more content not inc luded)... 12-10-2021 Note HNO ID: [id number] [facility] Author: Jennifer Mancini RT(R) [...] t be different from the original. [facility] Present illness Narrative Radiology Service Progress [...] in this encounter 12-08-2021 Note HNO ID: [id number] [facility] Author: Mikal Cuellar PA-C Center Service: ? Author Type: Physician Basket Operator Type: Progress Notes Filed: 12/08/2021 1:42 PM Note Text: [facility] General Arthritis and Rheumatology Mikal Cuellar [address] [facility] [address] [place] [address] RHEUMATOLOGY PROGRESS NOTE VIRTUAL VISIT PROGRESS NOTE This is a virtual visit using Trampoline vi alesia visit. It required patient-provider interaction [...] with RA 2016. She was admitted at [facility] - double pneumonia, RA. She was [...] DM2, polyneuropathy. She follows with pulm in [place]. RA, chronic steroids, adrenal insuff Family h/o [...] is different f rom the original. [facility] Present illness Narrative Images from the original note were not included. [facility] General Arthritis and Rheumatology Mikal Cuellar [address] [place] [address] RHEUMATOLOGY PROGRESS NOTE VIRTUAL VISIT PROGRESS NOTE [...] with RA 2016. She was admitted at [facility] - double pneumonia, RA. She was [...] DM2, polyneuropathy. She follows with pulm in [place]. RA, chronic steroids, adrenal insuff Family h/o [...] history of smoking. She follows with a prenatal teacher. Per e patient there is no concern [...] is d ifferent from the original. [facility] Notes Pharmacy requesting the following refill . Requested Prescriptions Pending Prescriptions Disp Refills leflunomide (ARAVA) 20 mg ta blet [Pharmacy Med Name: Leflunomide 20 MG Oral Tablet] 30 tablet 0 Sig: Take 1 tablet by mouth once daily Patient last appointment: 11/05/2021 Roddy dinero VV Next Appointment: 12/08/2021 Manjit Patient Phone numbers: [phone] (princess e) Request is for script(s) to be escript to pharmacy. [facility] [address] [place] [phone] [facility] [phone] [id number] Sayda Jimenez LPN documented in this encounter 08-11-2022 Miscellaneous Formatting of this note migh t be different from the original. [facility] Notes I called Viviana Santana and [...] her dizzy. Please advise, call back to [phone]. Thank you. Electronically signed by Ismael colin 11/27/2021 12:33 PM EDT documented in this encounter 11-12-2021 Note Patient Outreach (INTMMN) [facility] [place] ESTHERVIVIANA Brigid ([id number]) 1955 F Date Time Provider Department 11/12/21 [...] for screening mammogram for breast cancer [Z12.31] Order(s):[facility] SCREENING [[id number]] Order # : [id number] FUTURE Prescriptions as of 11/17/2021 - verapamil [...] Accessories for nebulizer J43.1 Panlobul ar emphysema ([facility]) (primary encounter diagnosis) J84.9 ILD (intersti tial lung disease) ([facility]) - COMPOUNDED PRESCRIPTION #1 Continuous Flow Stationary O2 Concent rator Sig: O2 2l/min liter flow Patient is to keep portablel concentrato r as well J43.2 Centrilobular emphysema ([facility]) J84.9 ILD (interstitial lung disease) ([facility]) J96.11 Chronic respiratory failure with hypoxia ([facility]) - COMPOUNDED PRESCRIPTION Face mask: hypoxia - [...] *05/19/2017 Rheumatoid arthritis involving multiple sites w*05/19/2017 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 current use of 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 11-05-2021 Note HNO ID: [id number] [facility] Author: Asia Calderón MD Center Service: ? Author Type: Physician Type: Progress Notes Filed: 11/05/2021 11:36 AM Note Text: VIRTUAL VISIT PROGRESS NOTE This is a virtual visit using Trampoline vi alesia visit. It required patient-provider interaction for the [facility] decision making as documented below. Viviana Santana [...] with RA 2016. She was admitted at [facility] - double pneumonia, RA. She was [...] - COPD (chronic obstructive pulmonary di sease) ([facility]) Chronic bronchitis by history. - COVID-19 vaccine [...] is d ifferent from the original. [facility] Notes Patient has been identified by name and date of : Yes Pending Prescriptions Disp Refills VERAPAMIL 80 MG TABLET 135 tablet 3 Sig: Take 0.5 tablets by mouth every 8 h ours. UNIQUE: No RX INSTRUCTIONS: Patient aware RX will be sent to pharmac y. No need to notify patient. Christina Keller Pss documented in this encounter 10-30-2021 Note HNO ID: [id number] [facility] Author: Loli Manuel MA Center Service: ? Author Type: Hand Assembler Type: Progress Notes Filed: 10/30/2021 10:27 AM [...] not nervo us/anxious. 10-30-2021 Note HNO ID: [id number] [facility] Author: Rick Feng MD Center Service: ? Author Type: Physician Type: Progress Notes Filed: 10/30/2021 10:27 AM Note Text: [facility] Today's Date: 10/30/2021 Last Visit: N/A [...] Relaxation;Reposition;Positioning;Medica tion;Exercise Comments - - Pain Assessment (RN/MAMMALOGIST) - - Medications: CURRENT Pain Medications: - Opioid Pain Medications: None o Date last filled: N/A o Quantity filled: N/A o How many left: N/A o Time most recent dose taken: N/A - Non-Opioid Pain Medications: o Prednisone 10mg daily o Neurontin 200mg qAM and 400mg qHS - he lps, tolerates - Swxg-oab-opwmqwo (OTC) Pain Meds: Tyle nol - takes [...] t be different from the original. [facility] Present illness Narrative Review of Systems [...] ncluded. [facility] Today's Date: 10/30/2021 Last Visit: N/A [...] Modification. o She exercises occasionally with an [employer] Solar[employer] bike at home Follows with Dr. Calderón [...] Medication Relaxation;Reposition;Positioning;Medication;Exercise Comments - - Pain Assessment (RN/MAMMALOGIST) - - Medications: CURRENT Pain Medications: Opioid Pain Medications: None o Date last filled: N/A o Quantity filled: N/A o How many left: N/A o Time most recent dose taken: N/A Non-Opioid Pain Medications: o Prednisone 10mg daily o Neurontin 200mg qAM and 400mg qHS - he lps, tolerates Esxo-rnz-wdoyrdp (OTC) Pain Meds: Tylen ol - takes [...] Referrals: No additional considerations at present Functional Synagogue: Physical Therapy (Land-based) - AK[facility] 13 (Afib and uses O2), has RA Depending on response to the above plan, consider: Alternative anti-epileptic drug (Cymbalta or Effexor); trigger point injections -Follow-up: 2 months (WAD IMPREGNATOR) Attribution: In addition to reviewing the information noted above, some elements copied from my most recent clinical note(s), including the physical exam (completed in entirety today), and the impressio n and plan sections, have be en updated where appropriate. All reflect current medical decision making from today's date. Rick Feng MD, [facility] [place] [facility] documented in this encounter 10-23-2021 Miscellaneous Formatting of this note migh t be different from the original. [facility] Notes Kenymelviantonio APPROVED NO PA REQ [id number] - 11.10.2022 [address] [place] documented in this encounter 10-22-2021 Note HNO ID: [id number] [facility] Author: Asia Calderón MD Center Service: ? Author Type: Physician Type: Progress Notes Filed: 10/22/2021 12:53 PM Note Text: VIRTUAL VISIT PROGRESS NOTE This is a virtual visit using Trampoline vi alesia visit. It required patient-provider interaction [...] with RA 2017. She was admitted at [facility] - double pneumonia, RA. 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 Continue arava 20 mg Labs this week Prednisone 10 mg till next v isit documented in this encounter 10-22-2021 History of Formatting of this note is different f rom the original. [facility] Present illness Narrative VIRTUAL VISIT PROGRESS [...] with RA 2017. She was admitted at [facility] - double pneumonia, RA. She was [...] DM2, polyneuropathy. She follows with pulm in [place]. RA, chronic steroids, adrenal insuff Family h/o [...] rheumatoid factor (HCC) (primary encounter diagnosis) (Z79.52) 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 current use of system ic steroids (Z79.52) [...] history of smoking. She follows with a prenatal teacher. Per e patient there is no concern [...] in this encounter 10-13-2021 Note HNO ID: [id number] [facility] Author: Peggy Isbell RN [place] Service: ? Author Type: Registered Nurse Type: Progress Notes Filed: 10/13/2021 2:07 PM Note Text: ACM INEZ RN Action/FYI: NO ACTION REQUIRED Patient identified by name and date of b irth. Patient Attributed To: E Payer: Amuso MS Reason for review or outreach: Suspect Condition Review Summary / Findings: NO ACTION REQUIRED Action Taken: No action needed Contact made with patient: No, Chart review only. Signature: Peggy Isbell RN 10-13-2021 History of Formatting of this note is different f rom the original. [facility] Present illness Narrative ACM INEZ RN Action/FYI: NO ACTION REQUIRED Patient identified by name and date of b irth. Patient Attributed To: QAE Payer: Amuso MS Reason for review or outreach: Suspect Condition Review Summary / Findings: NO ACTION REQUIRED Action Taken: No action needed Contact made with patient: No, Chart review only. Signature: Peggy Isbell RN documented in this encounter 10-13-2021 Note Patient Outreach (AMBCMG) [facility] [place] VIVIANA SANTANA ([id number]) 1955 F Date Time Provider Department 10/13/21 PEGGY ISBELL During your visit today, we recorded the following information about you: Peggy Isbell RN 10/13/2021 2:07 PM Sign ed ACM INEZ RN Action/FYI: NO ACTION REQUIRED Patient identified by name and date of b ir. Patient Attributed To: QAE Payer: [employer] Reason for review or outreach: Suspect Condition [...] *05/19/2017 Rheumatoid arthritis involving multiple sites w*05/19/2017 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 current use of 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 09-23-2021 Note HNO ID: [id number] [facility] Author: Alexa Becerra PA-C [place] Service: ? Author Type: Physician Basket Operator Type: Progress Notes Filed: 09/24/2021 10:58 AM [...] - 4.00 k/uL 1.45 2.11 1.1 9 Collin% % 3.8 5.9 4.2 Abs Collin <0.87 k/uL 0.58 0.56 0.44 Eosin% % [...] is different f rom the original. [facility] Present illness Narrative 66 year old [...] - 4.00 k/uL 1.45 2.11 1.1 9 Collin% % 3.8 5.9 4.2 Abs Collin <0.87 k/uL 0.58 0.56 0.44 Eosin% % [...] Multiple Sites With Positive Rheumatoid Factor (Hcc) Detention Current Use of Immunosuppressi ve Drug Paroxysmal [...] ICD10: R91.8 No recent follow up 9. detention current use of immunosuppressive drug - ICD9: [...] in this encounter 09-19-2021 Note HNO ID: [id number] [facility] Author: Isaac Panchal, OD Justinrodrigo raymond Service: ? Author Type: DRYWALL BOARDHANGER Type: Progress Notes Filed: 09/19/2021 4:03 PM [...] - 0 09/19/2021 4:03 PM EDT [facility] ASSESSMENT/PLAN: 1. Type 2 diabetes mellitus [...] t be different from the original. [facility] Present illness Narrative ASSESSMENT/PLAN: 1. Type [...] in this encounter 09-18-2021 Note HNO ID: [id number] [facility] Author: Asia Calderón MD [...] with RA 2016. She was admitted at [facility] - double pneumonia, RA. She was [...] DM2, polyneuropathy. She follows with pulm in [place]. RA, chronic steroids, adrenal insuff ? Family [...] Pfizer - Hyperglycemia 12/25/2016 - Hyperthyroidism 05/10/2017 [place] - Rheumatoid arthritis ([facility]) Leflunomide. Dayanna Silva MD. - Rheumatoid lung [...] MD - 2021 11:49 AM EDT [facility] - increase pred 5 mg till next visit - increase Arava 20 mg daily - Lab in 1 month BONE MINERAL DENSITY PATIENT INSTRUCTION S = Bone mineral density testing measures the amount of calcium in certain parts of your bones. This information determines how strong your bones are. The test is used to detect osteoporosis, a disease in [facility] the bone's mineral cont ent and density [...] is different f rom the original. [facility] Present illness Narrative RHEUMATOLOGY PROGRESS NOTE [...] with RA 2017. She was admitted at [facility] - double pneumonia, RA. She was [...] DM2, polyneuropathy. She follows with pulm in [place]. RA, chronic steroids, adrenal insuff Family h/o [...] (M25.50) Pain in joint, multiple sites (Z79.52) 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 current use of system ic steroids (M81.0) [...] history of smoking. She follows with a prenatal teacher. Per th e patient there is no [...] is d ifferent from the original. [facility] Notes Patient has been identified by [...] in this encounter 09-08-2021 Note HNO ID: [id number] [facility] Author: DO Carlos Gomez nd Service: ? Author Type: Physician Type: Progress Notes Filed: 09/08/2021 3:26 PM Note Text: [facility] [place] Sanjiv Sprague Department of Cardiovascular Medicine SECTION [...] ory failure again. She did got to [facility] for pneu manoharia admit in January 2019: Preadmission evaluation: SOB and cough x 2 days. No fever. had URI. Which facility: [facility] Dates of visit: !-02/02/19 Primary Diagnosis/es: [...] information was printed off for her at [facility] visit. She did not send in the paperwork because she's had significant life stressors over the past month. Her son is in rehab for a drug ad diction, and this has consumed the majority of her time. She was admitted [facility] in April 2017 with sepsis and [...] bronchiectasis. ?She follows with pulmonary at the [facility] now. ?There was a note that they [...] has hea rt problems - Chronic bronchitis ([facility]) - COPD (chronic obstructive pulmonary di sease) ([facility]) Chronic bronchitis by history. - COVID-19 vaccine series completed 07-27-2020 2nd dose Pfizer - Hyperglycemia 12/25/2016 - Hyperthyroidism 05/10/2017 [place] - Rheumatoid arthritis ([facility]) Leflunomide. Dayanna Silva MD. 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 [facility] Present illness Narrative Images from the original note were not included. [facility] [place] Sanjiv Sprague Department of Cardiovascular Medicine SECTION [...] respiratory failure again. She did got to [facility] January 2019: Preadmission evaluation: SOB and cough x 2 days. No fever. had URI. Which facility: [facility] Dates of visit: !-02/02/19 Primary Diagnosis/es: [...] majority of her time. She was admitted [facility] in April 2017 with sepsis [...] bronchiectasis. She follows with pulmonary at the [facility] now. There was a note t hat they increased her metop rolol to 50 twice a day of long acting in the hospital however she was only taking 25 mg daily at this time. Her heart rate was 121 and sinus tachycardia. She is only able to walk a minimal amount in [facility] before she is short of [...] 2nd dose Pfizer Hyperglycemia 12/25/2016 Hyperthyroidism 05/10/2017 [place] Rheumatoid arthritis ([facility]) Leflunomide. Dayanna Silva MD. Rheumatoid lung disease [...] , carotids well felt, no bruits. CARD: Equinunk palpable in the 5 th intercostal space [...] is d ifferent from the original. [facility] Notes Patient has been identified by [...] in this encounter 08-07-2021 Note HNO ID: [id number] [facility] Author: ANDREA Cao Service: ? Author Type: Physician Basket Operator Type: Progress Notes Filed: 08/07/2021 3:01 PM Note Text: [facility] [place], 08/07/2021: Name: Viviana Santana : 1955 ? The patient is here today by herself. ? HPI: Viviana Santana is a 66 yo female with pmh significant for RA, A Fib on Xarelto, hyperthyroidism, bronchiectasis and COPD/asthma on home O2. Former smoker, quit 2010. 15 pack years. 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 Since the last Pulmonary Clinic visit , the patient has not required ED care for exacerbation. There has been no hospital admission for exacerbation. Claims to be consistently compliant with prescribed maintenance Rx Duonebs four times daily with budesonide twice d aily. Taking Mucinex twice daily. Daily cough, primarily in the morning. S eems to be worse with seasonal allergies. Clear to [place] tribe sputum. No hemo ptysis. Frequent wheezing. No [...] 3 severe COPD by GOLD classific ation ([facility]) - ICD9: 496, ICD10: J44.9 (primary diagnosis) [...] NEBULIZATION SOLN 2. Bronchiectasis without complication ( [facility]) - ICD9: 494.0, ICD10: J47.9 Continue Mucinex twice daily. 3. ILD (interstitial lung disease) ([facility]) - ICD9: 515, ICD10: J84.9 4. Chronic respiratory failure with hypo jensen ([facility]) - ICD9: 518.83, 799.02, ICD10: J96.11 See #1. I addressed the questions of the patient , and she expressed understanding and acceptance of my answers. Jacquelin Patel PA-C 08-07-2021 Note HNO ID: [id number] [facility] Author: Aminta Michaels RRT [place] Service: ? Author Type: Respiratory Therapist Type: [...] TIME: 1:49 PM 08-07-2021 Note HNO ID: [id number] [facility] Author: Aminta Michaels RRT [place] Service: ? Author Type: Respiratory Therapist Type: Progress Notes Filed: 08/07/2021 1:50 PM Note Text: PULM FUNCTION SMARTBLOCK: Provider: Jacquelin Patel PA-C Assisting Tech: Aminta Michaels RRT Spirometry: 1 DLCO: 1 6 MW: 1 System: [id number] 08-07-2021 History of Formatting of this note is different f rom the original. [facility] Present illness Narrative [facility], 08/07/2021: Name: Viviana Santana : 1955 The patient is here today by herself. HPI: Viviana Santana is a 66 yo fema le with pmh significant for RA, A Fib on Xarelto, hyperthyroidism, bronchiectasis and COPD/asthma on home O2. Former smoker, quit 2010. 15 pack years. 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 Since the last Pulmonary Cli angela [...] be worse with seasonal allergies. Clear to [place] tribe sputum. No hemoptysis. Frequent wheezing. No dyspnea [...] NEBULIZATION SOLN 2. Bronchiectasis without complication ( [facility]) - ICD9: 494.0, ICD10: J47.9 Continue Mucinex twice daily. 3. ILD (interstitial lung disease) ([facility]) - ICD9: 515, ICD10: J84.9 4. Chronic respiratory failu re with hypoxia ([facility]) - ICD9: 518.83, 799.02, ICD10: J96.11 See #1. I addressed the questions of the patient, and she expressed understanding and acceptance of my answers. Jacquelin Patel PA-C documented in this encounter 08-07-2021 Procedure note Associated Order(s): SIX MIN MI'KMAQ WALK [facility] RESPIRATORY THERAPY SIX MINUTE WALK TEST [...] t be different from the original. [facility] Present illness Narrative PULM FUNCTION SMARTBLOCK: Provider: Jacquelin Patel PA-C Assisting Tech: Aminta Michaels RRT Spirometry: 1 DLCO: 1 6 MW: 1 System: [id number] documented in this encounter 08-04-2021 Miscellaneous Formatting of this note is d ifferent from the original. [facility] Notes Patient notified of results, verbalizes [...] with Rheumatology until early September. Patient uses [employer] for her pharma cy. Patient said the prednisone does help with her pain. Please advise documented in this encounter 06-23-2021 Note HNO ID: [id number] [facility] Author: Jeramie Begum MD [place] Service: ? Author Type: Physician Type: Progress Notes Filed: 06/23/2021 11:09 AM Note Text: [facility] [place] [facility] Department Date: June [...] - COPD (chronic obstructive pulmonary di sease) ([facility]) Chronic bronchitis by history. - COVID-19 vaccine series completed 07-27-2020 2nd dose Pfize (more content not included)... 06-19-2021 Note HNO ID: [id number] [facility] Author: Alexa Becerra PA-C [place] Service: ? Author Type: Physician Basket Operator Type: Progress Notes Filed: 06/19/2021 9:07 PM [...] Abs Lymph 1.00 - 4.00 k/uL 1.45 Collin% % 3.8 Abs Collin <0.87 k/uL 0.58 Eosin% % 2.0 Abs [...] Multiple Sites With Positive Rheumatoid Factor (Hcc) Detention Current Use of Immunosuppressi ve Drug Paroxysmal [...] tent not included)... 06-10-2021 Note HNO ID: [id number] [facility] Author: Asia Calderón MD Center Service: ? Author Type: Physician Type: Progress Notes Filed: 06/10/2021 11:33 AM Note Text: VIRTUAL VISIT PROGRESS NOTE This is a virtual visit using Trampoline vi alesia visit. It required patient-provider interaction for the [facility] decision making as documented below. Viviana Santana is a 66 year old female see n for joint pain. Not on Arava 10 mg daily. More joint maylin n since not on pred. Diagnosed with RA 2017. She was admitted at [facility] - double pneumonia, RA. She was [...] content not included)... 05-12-2021 Note HNO ID: [id number] [facility] Author: RT Daquan(R) Center [...] 2021 12:31 PM 04-25-2021 Note HNO ID: [id number] [facility] Author: Asia Calderón MD Center Service: ? Author Type: Physician Type: Progress Notes Filed: 04/25/2021 12:08 PM Note Text: VIRTUAL VISIT PROGRESS NOTE This is a virtual visit using Trampoline vi alesia visit. It required patient-provider interaction for the [facility] decision making as documented below. Viviana Santana is a 66 year old female see n for joint pain. Diagnosed with RA 2017. She was admitted at [facility] - double pneumonia, RA. She was [...] DM2, polyneuropathy. She follows with pulm in [place]. RA, chronic steroids, adrenal insuff Family h/o [...] - COPD (chronic obstructive pulmonary di sease) ([facility]) Chronic bronchitis by history. - COVID-19 vaccine [...] not included)... 04-21-2021 Note Patient Outreach (NETNAV) [facility] [place] VIVIANA SANTANA ([id number]) 1955 F Date Time Provider Department 04/21/21 DARA TRINH During your visit today, we recorded the following information about you: Dara Trinh RN 04/21/2021 11:32 AM Signed ACM INEZ RN Action/FYI: NO ACTION REQUIRED Patient identified by name and date of b ir. Patient Attributed To: E Payer: [employer]uso MS Reason for review or outreach: Suspect Condition Review Summary / Findings: Suspected conditions reviewed at [facility]. Action Taken: Data submitted to [employer] [facility] [employer] [facility] Contact made with patient: No, Chart review only. Signature: Dara Trinh RN Allergies As of Date: 04/21/2021 Noted A llergy Reaction RAGWEED 03/10/2011 14 - Other: See Comme nts TREES 03/10/2011 14 - Other: See Comment s Date Reviewed: 04/01/2021 Reviewed by: Hialee Rouqe MA - Fully Ass essed Reason for Visit: ACM INEZ RN [[id number]] Cmt: Suspected Condition Rev - [facility] Prescriptions as of 04/21/2021 - ondansetron (ZOFRAN) 4 mg tablet Take 1 tablet by mouth every 6 hours as needed for nausea/vomiting. - ferrous gluconate 324 mg (37.5 mg iron ) tablet Take 1 tablet by mouth twice daily with meals. - gabapentin (NEURONTIN) 400 mg capsule Take 1 capsule by mouth three times mohsen y for 180 days. 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 .. 04-21-2021 Note HNO ID: [id number] [facility] Author: Dara Trinh RN [place] Service: ? Author Type: Registered Nurse Type: Progress Notes Filed: 04/21/2021 11:32 AM Note Text: ACM INEZ RN Action/FYI: NO ACTION REQUIRED Patient identified by name and date of b irth. Patient Attributed To: QAE Payer: [facility] Reason for review or outreach: Suspect Condition Review Summary / Findings: Suspected conditions reviewed at [facility]. Action Taken: Data submitted to [employer] [facility] Contact made with patient: No, Chart review only. Signature: Dara Trinh RN 04-01-2021 Note HNO ID: [id number] [facility] Author: Yovani Piedra, DO [place] Service: ? Author Type: Physician Type: Progress Notes Filed: 04/01/2021 3:37 PM Note Text: [facility] [place] Sanjiv Sprague Department of Cardiovascular Medicine SECTION [...] ory failure again. She did got to [facility] admit in January 2019: Preadmission evaluation: SOB and cough x 2 days. No fever. had URI. Which facility: [facility] Dates of visit: !-02/02/19 Primary Diagnosis/es: [...] was printed off for her at t [facility] visit. She did not send in the paperwork because she's had significant life stressors over the past month. Her son is in rehab for a drug ad diction, and this has consumed the majority of her time. She was admitted A [facility] in April 2017 with sepsis and [...] bronchiectasis. ?She follows with pulmonary at the [facility] now. 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 FT4 high 1.74 , FT3 high 1.83 Symptomatic afib with RVR. NM uptake: no focal areas of uptake. TSab negative. Microsomal Ab neg Hyperglycemia 12/25/2016 08/25/2018 documented as of this encounter (statuses as of 09/24/2021)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 FT4 high 1.74 , FT3 high 1.83 Symptomatic afib with RVR. NM uptake: no focal areas of uptake. TSab negative. Microsomal Ab neg Hyperglycemia 12/25/2016 08/25/2018 documented as of this encounter (statuses as of 10/13/2021)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 FT4 high 1.74 , FT3 high 1.83 Symptomatic afib with RVR. NM uptake: no focal areas of uptake. TSab negative. Microsomal Ab neg Hyperglycemia 12/25/2016 08/25/2018 documented as of this encounter (statuses as of 10/22/2021)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 FT4 high 1.74 , FT3 high 1.83 Symptomatic afib with RVR. NM uptake: no focal areas of uptake. TSab negative. Microsomal Ab neg Hyperglycemia 12/25/2016 08/25/2018 documented as of this encounter (statuses as of 10/23/2021)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 FT4 high 1.74 , FT3 high 1.83 Symptomatic afib with RVR. NM uptake: no focal areas of uptake. TSab negative. Microsomal Ab neg Hyperglycemia 12/25/2016 08/25/2018 documented as of this encounter (statuses as of 10/30/2021)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 FT4 high 1.74 , FT3 high 1.83 Symptomatic afib with RVR. NM uptake: no focal areas of uptake. TSab negative. Microsomal Ab neg Hyperglycemia 12/25/2016 08/25/2018 documented as of this encounter (statuses as of 11/04/2021)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 FT4 high 1.74 , FT3 high 1.83 Symptomatic afib with RVR. NM uptake: no focal areas of uptake. TSab negative. Microsomal Ab neg Hyperglycemia 12/25/2016 08/25/2018 documented as of this encounter (statuses as of 11/10/2021)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 FT4 high 1.74 , FT3 high 1.83 Symptomatic afib with RVR. NM uptake: no focal areas of uptake. TSab negative. Microsomal Ab neg Hyperglycemia 12/25/2016 08/25/2018 documented as of this encounter (statuses as of 11/17/2021)[facility] 05-12-2019 History of Past illness Narrative [...] Added automatically from request for gabrielle sonali [id number] Status post cataract extraction and insertion of intraocular 12/16/2017 07/28/2018 lens of right eye Combined forms of age-related cataract of right eye 12/07/19 18 01/06/2018 Combined forms of age-related cataract of left eye 8 01/05/2018 Combined forms of age-related cataract, right eye 12/06/2017 12/15/2017 Overview:Formatting of this note might b e different from the original. 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 05/10/17 [place] TSH 0.020. FT4 high 1.74 , FT3 high 1.83 Symptomatic afib with RVR. NM uptake: no focal areas of uptake. TSab negative. Microsomal Ab neg Hyperglycemia 12/25/2016 08/25/2018 documented as of this encounter (statuses as of 11/24/2021)[facility] 05-12-2019 History of Past illness Narrative [...] Added automatically from request for gabrielle sonali [id number] Status post cataract extraction and insertion of intraocular 12/16/2017 07/28/2018 lens of right eye Combined forms of age-related cataract of right eye 12/07/19 18 01/06/2018 Combined forms of age-related cataract of left eye 8 01/05/2018 Combined forms of age-related cataract, right eye 12/06/2017 12/15/2017 Overview:Formatting of this note might b e different from the original. 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 05/10/17 [place] TSH 0.020. FT4 high 1.74 , FT3 high 1.83 Symptomatic afib with RVR. NM uptake: no focal areas of uptake. TSab negative. Microsomal Ab neg Hyperglycemia 12/25/2016 08/25/2018 documented as of this encounter (statuses as of 11/27/2021)[facility] 05-12-2019 History of Past illness Narrative [...] Added automatically from request for gabrielle lyon [id number] Status post cataract extraction and insertion of intraocular 12/16/2017 07/28/2018 lens of right eye Combined forms of age-related cataract of right eye 12/07/19 18 01/06/2018 Combined forms of age-related cataract of left eye 8 01/05/2018 Combined forms of age-related cataract, right eye 12/06/2017 12/15/2017 Overview:Formatting of this note might b e different from the original. 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 05/10/17 [place] TSH 0.020. FT4 high 1.74 , FT3 high 1.83 Symptomatic afib with RVR. NM uptake: no focal areas of uptake. TSab negative. Microsomal Ab neg Hyperglycemia 12/25/2016 08/25/2018 documented as of this encounter (statuses as of 12/08/2021)[facility] 05-12-2019 History of Past illness Narrative [...] Added automatically from request for gabrielle lyon [id number] Status post cataract extraction and insertion of intraocular 12/16/2017 07/28/2018 lens of right eye Combined forms of age-related cataract of right eye 12/07/19 18 01/06/2018 Combined forms of age-related cataract of left eye 8 01/05/2018 Combined forms of age-related cataract, right eye 12/06/2017 12/15/2017 Overview:Formatting of this note might b e different from the original. 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 05/10/17 [place] TSH 0.020. FT4 high 1.74 , FT3 high 1.83 Symptomatic afib with RVR. NM uptake: no focal areas of uptake. TSab negative. Microsomal Ab neg Hyperglycemia 12/25/2016 08/25/2018 documented as of this encounter (statuses as of 12/08/2021)[facility] 05-12-2019 History of Past illness Narrative [...] Added automatically from request for gabrielle lyon [id number] Status post cataract extraction and insertion of intraocular 12/16/2017 07/28/2018 lens of right eye Combined forms of age-related cataract of right eye 12/07/19 18 01/06/2018 Combined forms of age-related cataract of left eye 8 01/05/2018 Combined forms of age-related cataract, right eye 12/06/2017 12/15/2017 Overview:Formatting of this note might b e different from the original. 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 05/10/17 [place] TSH 0.020. FT4 high 1.74 , FT3 high 1.83 Symptomatic afib with RVR. NM uptake: no focal areas of uptake. TSab negative. Microsomal Ab neg Hyperglycemia 12/25/2016 08/25/2018 documented as of this encounter (statuses as of 12/11/2021)[facility] 05-12-2019 History of Past illness Narrative [...] Added automatically from request for gabrielle sonali [id number] Status post cataract extraction and insertion of intraocular 12/16/2017 07/28/2018 lens of right eye Combined forms of age-related cataract of right eye 12/07/19 18 01/06/2018 Combined forms of age-related cataract of left eye 8 01/05/2018 Combined forms of age-related cataract, right eye 12/06/2017 12/15/2017 Overview:Formatting of this note might b e different from the original. 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 05/10/17 [place] TSH 0.020. FT4 high 1.74 , FT3 high 1.83 Symptomatic afib with RVR. NM uptake: no focal areas of uptake. TSab negative. Microsomal Ab neg Hyperglycemia 12/25/2016 08/25/2018 documented as of this encounter (statuses as of 12/23/2021)[facility] 05-12-2019 History of Past illness Narrative [...] Added automatically from request for gabrielle sonali [id number] Status post cataract extraction and insertion of intraocular 12/16/2017 07/28/2018 lens of right eye Combined forms of age-related cataract of right eye 12/07/19 18 01/06/2018 Combined forms of age-related cataract of left eye 8 01/05/2018 Combined forms of age-related cataract, right eye 12/06/2017 12/15/2017 Overview:Formatting of this note might b e different from the original. Added automatically from request for gabrielle macy [id number] Combined forms of age-related cataract of both [...] of this encounter (statuses as of 01/01/2022)[facility] 05-12-2019 History of Past illness Narrative [...] Added automatically from request for gabrielle sonali [id number] Status post cataract extraction and insertion of intraocular 12/16/2017 07/28/2018 lens of right eye Combined forms of age-related cataract of right eye 12/07/19 18 01/06/2018 Combined forms of age-related cataract of left eye 8 01/05/2018 Combined forms of age-related cataract, right eye 12/06/2017 12/15/2017 Overview:Formatting of this note might b e different from the original. Added automatically from request for gabrielle sonali [id number] Combined forms of age-related cataract of both [...] of this encounter (statuses as of 01/12/2022)[facility] 05-12-2019 History of Past illness Narrative [...] Added automatically from request for gabrielle lyon [id number] Status post cataract extraction and insertion of intraocular 12/16/2017 07/28/2018 lens of right eye Combined forms of age-related cataract of right eye 12/07/19 18 01/06/2018 Combined forms of age-related cataract of left eye 8 01/05/2018 Combined forms of age-related cataract, right eye 12/06/2017 12/15/2017 Overview:Formatting of this note might b e different from the original. Added automatically from request for gabrielle lyon [id number] Combined forms of age-related cataract of both [...] of this encounter (statuses as of 01/12/2022)[facility] 05-12-2019 History of Past illness Narrative [...] Added automatically from request for gabrielle lyon [id number] Status post cataract extraction and insertion of intraocular 12/16/2017 07/28/2018 lens of right eye Combined forms of age-related cataract of right eye 12/07/19 18 01/06/2018 Combined forms of age-related cataract of left eye 8 01/05/2018 Combined forms of age-related cataract, right eye 12/06/2017 12/15/2017 Overview:Formatting of this note might b e different from the original. Added automatically from request for gabrielle lyon [id number] Combined forms of age-related cataract of both [...] of this encounter (statuses as of 01/30/2022)[facility] 05-12-2019 History of Past illness Narrative [...] Added automatically from request for gabrielle lyon [id number] Status post cataract extraction and insertion of intraocular 12/16/2017 07/28/2018 lens of right eye Combined forms of age-related cataract of right eye 12/07/19 18 01/06/2018 Combined forms of age-related cataract of left eye 8 01/05/2018 Combined forms of age-related cataract, right eye 12/06/2017 12/15/2017 Overview:Formatting of this note might b e different from the original. Added automatically from request for gabrielle lyon [id number] Combined forms of age-related cataract of both [...] of this encounter (statuses as of 02/07/2022)[facility] 05-12-2019 History of Past illness Narrative [...] Added automatically from request for gabrielle lyon [id number] Status post cataract extraction and insertion of intraocular 12/16/2017 07/28/2018 lens of right eye Combined forms of age-related cataract of right eye 12/07/19 18 01/06/2018 Combined forms of age-related cataract of left eye 8 01/05/2018 Combined forms of age-related cataract, right eye 12/06/2017 12/15/2017 Overview:Formatting of this note might b e different from the original. 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 05/10/17 [place] TSH 0.020. FT4 high 1.74 , FT3 high 1.83 Symptomatic afib with RVR. NM uptake: no focal areas of uptake. TSab negative. Microsomal Ab neg Hyperglycemia 12/25/2016 08/25/2018 documented as of this encounter (statuses as of 02/09/2022)[facility] 05-12-2019 History of Past illness Narrative [...] Added automatically from request for gabrielle sonali [id number] Status post cataract extraction and insertion of intraocular 12/16/2017 07/28/2018 lens of right eye Combined forms of age-related cataract of right eye 12/07/19 18 01/06/2018 Combined forms of age-related cataract of left eye 8 01/05/2018 Combined forms of age-related cataract, right eye 12/06/2017 12/15/2017 Overview:Formatting of this note might b e different from the original. Added automatically from request for gabrielle sonali [id number] Combined forms of age-related cataract of both [...] of this encounter (statuses as of 02/10/2022)[facility] 05-12-2019 History of Past illness Narrative [...] Added automatically from request for gabrielle sonali [id number] Status post cataract extraction and insertion of intraocular 12/16/2017 07/28/2018 lens of right eye Combined forms of age-related cataract of right eye 12/07/19 18 01/06/2018 Combined forms of age-related cataract of left eye 8 01/05/2018 Combined forms of age-related cataract, right eye 12/06/2017 12/15/2017 Overview:Formatting of this note might b e different from the original. 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 05/10/17 [place] TSH 0.020. FT4 high 1.74 , FT3 high 1.83 Symptomatic afib with RVR. NM uptake: no focal areas of uptake. TSab negative. Microsomal Ab neg Hyperglycemia 12/25/2016 08/25/2018 documented as of this encounter (statuses as of 02/16/2022)[facility] 05-12-2019 History of Past illness Narrative [...] Added automatically from request for gabrielle macy [id number] Status post cataract extraction and insertion of intraocular 12/16/2017 07/28/2018 lens of right eye Combined forms of age-related cataract of right eye 12/07/19 18 01/06/2018 Combined forms of age-related cataract of left eye 8 01/05/2018 Combined forms of age-related cataract, right eye 12/06/2017 12/15/2017 Overview:Formatting of this note might b e different from the original. Added automatically from request for gabrielle lyon [id number] Combined forms of age-related cataract of both [...] of this encounter (statuses as of 03/05/2022)[facility] 05-12-2019 History of Past illness Narrative [...] Added automatically from request for gabrielle lyon [id number] Status post cataract extraction and insertion of intraocular 12/16/2017 07/28/2018 lens of right eye Combined forms of age-related cataract of right eye 12/07/19 18 01/06/2018 Combined forms of age-related cataract of left eye 8 01/05/2018 Combined forms of age-related cataract, right eye 12/06/2017 12/15/2017 Overview:Formatting of this note might b e different from the original. Added automatically from request for gabrielle sonali [id number] Combined forms of age-related cataract of both [...] of this encounter (statuses as of 03/06/2022)[facility] 05-12-2019 History of Past illness Narrative [...] Added automatically from request for gabrielle lyon [id number] Status post cataract extraction and insertion of intraocular 12/16/2017 07/28/2018 lens of right eye Combined forms of age-related cataract of right eye 12/07/19 18 01/06/2018 Combined forms of age-related cataract of left eye 8 01/05/2018 Combined forms of age-related cataract, right eye 12/06/2017 12/15/2017 Overview:Formatting of this note might b e different from the original. Added automatically from request for gabrielle lyon [id number] Combined forms of age-related cataract of both [...] of this encounter (statuses as of 03/09/2022)[facility] 05-12-2019 History of Past illness Narrative [...] Added automatically from request for gabrielle lyon [id number] Status post cataract extraction and insertion of intraocular 12/16/2017 07/28/2018 lens of right eye Combined forms of age-related cataract of right eye 12/07/19 18 01/06/2018 Combined forms of age-related cataract of left eye 8 01/05/2018 Combined forms of age-related cataract, right eye 12/06/2017 12/15/2017 Overview:Formatting of this note might b e different from the original. 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 05/10/17 [place] TSH 0.020. FT4 high 1.74 , FT3 high 1.83 Symptomatic afib with RVR. NM uptake: no focal areas of uptake. TSab negative. Microsomal Ab neg Hyperglycemia 12/25/2016 08/25/2018 documented as of this encounter (statuses as of 03/16/2022)[facility] 05-12-2019 History of Past illness Narrative [...] Added automatically from request for gabrielle lyon [id number] Status post cataract extraction and insertion of intraocular 12/16/2017 07/28/2018 lens of right eye Combined forms of age-related cataract of right eye 12/07/19 18 01/06/2018 Combined forms of age-related cataract of left eye 8 01/05/2018 Combined forms of age-related cataract, right eye 12/06/2017 12/15/2017 Overview:Formatting of this note might b e different from the original. 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 05/10/17 [place] TSH 0.020. FT4 high 1.74 , FT3 high 1.83 Symptomatic afib with RVR. NM uptake: no focal areas of uptake. TSab negative. Microsomal Ab neg Hyperglycemia 12/25/2016 08/25/2018 documented as of this encounter (statuses as of 03/30/2022)[facility] 05-12-2019 History of Past illness Narrative [...] Added automatically from request for gabrielle lyon [id number] Status post cataract extraction and insertion of intraocular 12/16/2017 07/28/2018 lens of right eye Combined forms of age-related cataract of right eye 12/07/19 18 01/06/2018 Combined forms of age-related cataract of left eye 8 01/05/2018 Combined forms of age-related cataract, right eye 12/06/2017 12/15/2017 Overview:Formatting of this note might b e different from the original. Added automatically from request for gabrielle lyon [id number] Combined forms of age-related cataract of both [...] of this encounter (statuses as of 04/03/2022)[facility] Evaluation note Diagnosis Stage 4 very severe COPD by GOLD classif ication (HCC) ILD (interstitial lung disease) (HCC) Postinflammatory pulmonary fibrosis [facility] Diagnosis Stage 4 very severe COPD by GOLD classif ication (HCC) ILD (interstitial lung disease) (HCC) Postinflammatory pulmonary fibrosis documented in [facility]Cle[facility] Diagnosis Stage 3 severe COPD by GOLD classificati on (HCC)- Primary Bronchiectasis without complication (HCC ) Bronchiectasis without acute exacerbatio n ILD (interstitial lung disease) ([facility]) Postinflammatory pulmonary fibrosis Chronic respiratory failure with hypoxia (HCC) Chronic respiratory failure documented in [facility] encounterCleTr[facility]Evaluation [facility] Diagnosis Paroxysmal atrial fibrillation (HCC) Atrial fibrillation documented in this encounterCle[facility]Evaluation [facility] Diagnosis Paroxysmal atrial fibrillation [...] (HCC)- Primary Pain in joint, multiple sites detention current use of systemic steroi ds Encounter [...] 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 Pre-diabetes Other abnormal glucose CESAR (obstructive sleep apnea) Obstructive sleep apnea (adult) (pediatr ic) Hyperthyroidism Thyrotoxicosis without mention of goiter or other cause, without mention of thyrotoxic crisis or storm documented in this encounterClemer[facility]Evaluation note Diagnosis Rheumatoid arthritis involving multiple sites with positive rheumatoid factor (HCC)- Primary detention current use of systemic steroi ds Encounter for long-term (current) use of steroids Current chronic use of systemic steroids Pain in joint, multiple sites High risk medication use Encounter for long-term (current) use of other medications documented in this encounterClemer[facility] Diagnosis Chronic pain syndrome- Primary Generalized OA Generalized osteoarthrosis, unspecified site Myofascial pain Mylagia and myositis, unspecified documented in this encounterClemer[facility] Diagnosis Rheumatoid arthritis involving multiple sites with positive rheumatoid factor (HCC)- Primary documented in this encounterClemer[facility] note Diagnosis Encounter for screening mammogram for br east cancer documented in this encounterClemer[facility] note Diagnosis Myofascial pain- Primary Mylagia and myositis, unspecified documented [facility] encounterEngle[facility] ClinicEvaluation [facility] Diagnosis Rheumatoid arthritis involving multiple sites with positive rheumatoid factor (HCC) documented in this encounterEnglewood ClinicEvaluation note Diagnosis Rheumatoid arthritis involving multiple sites with positive rheumatoid factor (HCC)- Primary Current chronic use of systemic steroids High risk medication use Encounter for long-term (current) use of other medications Vitamin D deficiency Unspecified vitamin D deficiency documented in this encounterEnglewood ClinicEvaluation note Diagnosis 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 current use of systemic steroi ds Encounter for long-term (current) use of steroids Osteoporosis, unspecified osteoporosis t ype, unspecified pathological fracture presence Rheumatoid arthritis involving multiple sites with positive rheumatoid factor (HCC) documented in this encounterEnglewood ClinicEvaluation note Diagnosis Rheumatoid arthritis involving multiple sites with positive rheumatoid factor (HCC)- Primary documented in this encounterCle[facility] note Diagnosis Chronic pain syndrome- Primary Generalized OA Generalized osteoarthrosis, unspecified site Myofascial pain Mylagia and myositis, unspecified documented in this encounterEnglewood ClinicEvaluation note Diagnosis Rheumatoid arthritis involving multiple sites with positive rheumatoid factor (HCC) Vitamin D deficiency Unspecified vitamin D deficiency Other osteoporosis without current patho logical fracture documented in this encounterClemer[facility] note Diagnosis Interstitial pulmonary disease (HCC)- 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 Bronchiectasis without complication (HCC ) Bronchiectasis without acute exacerbatio n 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) Chronic airway obstruction, not elsewher e classified Chronic respiratory failure with hypoxia (HCC) Chronic respiratory failure documented in this encounterEnglewood ClinicEvaluation note Diagnosis Other osteoporosis without current patho logical fracture- Primary Rheumatoid arthritis involving multiple sites with positive rheumatoid factor (HCC) documented in this encounterClemer[facility] ClinicEvaluation note Diagnosis Other osteoporosis without current patho logical fracture- Primary Rheumatoid arthritis involving multiple sites with positive rheumatoid factor (HCC) documented [facility] HospitalReason for referral (narrative) Diagnostic Procedure Only (Routine) - Pending Review Specialty Diagnoses / Procedures Referred By Contact Refer red To Contact [facility] Diagnoses Encounter for screening mammogram for breast cancer Alexa Becerra PA-C [facility] Procedures ERNIE SCREENING SCREENING MAMMOGRAPHY BI 2-VIEW BREAST INC CAD [address] [place] [address] [place] [address] Referral ID Status Reason Start Expiration Visits Visits Date Date Requested Authorized [id number] Pending Auto-Generat 11/12/2021 12/12/2022 1 1 Review ed Referral 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 Advance Directive(s) 10/09/2019 7:44 AM Advance Directive(s) 09/20/2019 8:57 AM Advance Directive(s) 01/05/2018 9:14 AM Advance Directive(s) 12/15/2017 7:52 AM Reason for Referral Specialty Diagnoses / Procedures Referred By Contact Refer red To Contact Pain Management Diagnoses Pain in joint, multiple sites Rheumatoid arthritis involving multiple sites with positive rheumatoid factor (HCC) Asia Calderón MD Procedures CONSULT TO PAIN MGT [address] [place] [address] Referral ID Status Reason Start Expiration Visits Visits Date Date Requested Authorized [id number] Ref Not PCP Requested 09/18/2021 12/17/2021 3 3 Required Referral Specialty Diagnoses / Procedures Referred By Contact Refer red To Contact CT IMAGING Diagnoses Interstitial pulmonary disease (HCC) Junior Mathew MD Ct Imaging Procedures CT CHEST WO IVCON DIAGNOSTIC COMPUTED TOMOGRAPHY THORAX W/O CNTRST [address] [place] [address] Referral ID Status Reason Start Expiration Visits Visits Date Date Requested Authorized [id number] Authorized Auto-Generat 03/08/2023 1 1 ed Referral [...] the event of a Fluress shortage, administer [place]-Fluor 1 drop into both eyes as directed [...] DATE CREATED AUTHOR AUTHOR'S ORGANIZ ATION 10/12/2019 [facility] DATE CREATED AUTHOR AUTHOR'S ORGANIZATIO N 11/28/2020 [facility] ([place]) DATE CREATED AUTHOR AUTHOR'S ORGANIZATIO N 03/17/2022 [facility] DATE CREATED AUTHOR AUTHOR'S ORGANIZATIO N 03/31/2022 [facility] Source Comments (unrecognized section an d content) [...] any alcohol or drug abuse patient. [facility] HospitalIn the event this information is protected by t Federal Confidentiality of Alcohol and Drug Abuse Patient Records regulations: This information has been disclosed to you from records protected by Federal confid entiality rules ( The Federal rules restrict any use of th e information to criminally investigate or prosecute any alcohol or drug abuse valeria ent. [facility] HospitalIn the event this information is protected by the Federal Confidentiality of Alcohol and Drug Abuse Patient Records regulations: This inform ation has been disclosed to you from records protected by Federal confidentiality rul es ( The Federal rules restrict any use of the in formation to criminally investigate or prosecute any alcohol or drug abuse valeria ent. [facility] HospitalIn the event this information is protected by the Federal Confidentiality of Alcohol and Drug Abuse Patient Records regulations: This inform ation has been disclosed to you from records protected by Federal confidentiality rul es ( The Federal rules restrict any use of the in formation to criminally investigate or prosecute any alcohol or drug abuse valeria ent. [facility] HospitalIn the event this information is protected by the Federal Confidentiality of Alcohol and Drug Abuse Patient Records regulations: This inform ation has been disclosed to you from records protected by Federal confidentiality rul es ( The Federal rules restrict any use of the in formation to criminally investigate or prosecute any alcohol or drug abuse valeria ent. [facility] HospitalIn the event this information is protected by the Federal Confidentiality of Alcohol and Drug Abuse Patient Records regulations: This inform ation has been disclosed to you from records protected by Federal confidentiality rul es ( The Federal rules restrict any use of the in formation to criminally investigate or prosecute any alcohol or drug abuse valeria ent. [facility] HospitalIn the event this information is protected by the Federal Confidentiality of Alcohol and Drug Abuse Patient Records regulations: This inform ation has been disclosed to you from records protected by Federal confidentiality rul es ( The Federal rules restrict any use of the in formation to criminally investigate or prosecute any alcohol or drug abuse valeria ent. [facility] HospitalIn the event this information is protected by the Federal Confidentiality of Alcohol and Drug Abuse Patient Records regulations: This inform ation has been disclosed to you from records protected by Federal confidentiality rul es ( The Federal rules restrict any use of the in formation to criminally investigate or prosecute any alcohol or drug abuse valeria ent. [facility] HospitalIn the event this information is protected by the Federal Confidentiality of Alcohol and Drug Abuse Patient Records regulations: This inform ation has been disclosed to you from records protected by Federal confidentiality rul es ( The Federal rules restrict any use of the in formation to criminally investigate or prosecute any alcohol or drug abuse valeria ent. [facility] HospitalIn the event this information is protected by the Federal Confidentiality of Alcohol and Drug Abuse Patient Records regulations: This inform ation has been disclosed to you from records protected by Federal confidentiality rul es ( The Federal rules restrict any use of the in formation to criminally investigate or prosecute any alcohol or drug abuse valeria ent. [facility] HospitalIn the event this information is protected by the Federal Confidentiality of Alcohol and Drug Abuse Patient Records regulations: This inform ation has been disclosed to you from records protected by Federal confidentiality rul es ( The Federal rules restrict any use of the in formation to criminally investigate or prosecute any alcohol or drug abuse valeria ent. [facility]In the event this information is protected by the Federal Confidentiality of Alcohol and Drug Abuse Patient Records regulations: This inform ation has been disclosed to you from records protected by Federal confidentiality rul es ( The Federal rules restrict any use of the in formation to criminally investigate or prosecute any alcohol or drug abuse valeria ent. [facility]In the event this information is protected by the Federal Confidentiality of Alcohol and Drug Abuse Patient Records regulations: This inform ation has been disclosed to you from records protected by Federal confidentiality rul es ( The Federal rules restrict any use of the in formation to criminally investigate or prosecute any alcohol or drug abuse valeria ent. [facility]In the event this information is protected by the Federal Confidentiality of Alcohol and Drug Abuse Patient Records regulations: This inform ation has been disclosed to you from records protected by Federal confidentiality rul es ( The Federal rules restrict any use of the in formation to criminally investigate or prosecute any alcohol or drug abuse valeria ent. [facility]In the event this information is protected by the Federal Confidentiality of Alcohol and Drug Abuse Patient Records regulations: This inform ation has been disclosed to you from records protected by Federal confidentiality rul es ( The Federal rules restrict any use of the in formation to criminally investigate or prosecute any alcohol or drug abuse valeria ent. [facility]In the event this information is protected by the Federal Confidentiality of Alcohol and Drug Abuse Patient Records regulations: This inform ation has been disclosed to you from records protected by Federal confidentiality rul es ( The Federal rules restrict any use of the in formation to criminally investigate or prosecute any alcohol or drug abuse valeria ent. [facility]In the event this information is protected by the Federal Confidentiality of Alcohol and Drug Abuse Patient Records regulations: This inform ation has been disclosed to you from records protected by Federal confidentiality rul es ( The Federal rules restrict any use of the in formation to criminally investigate or prosecute any alcohol or drug abuse valeria ent. [facility] HospitalIn the event this information is protected by the Federal Confidentiality of Alcohol and Drug Abuse Patient Records regulations: This inform ation has been disclosed to you from records protected by Federal confidentiality rul es ( The Federal rules restrict any use of the in formation to criminally investigate or prosecute any alcohol or drug abuse valeria ent. [facility] HospitalIn the event this information is protected by the Federal Confidentiality of Alcohol and Drug Abuse Patient Records regulations: This inform ation has been disclosed to you from records protected by Federal confidentiality rul es ( The Federal rules restrict any use of the in formation to criminally investigate or prosecute any alcohol or drug abuse valeria ent. [facility] HospitalIn the event this information is protected by the Federal Confidentiality of Alcohol and Drug Abuse Patient Records regulations: This inform ation has been disclosed to you from records protected by Federal confidentiality rul es ( The Federal rules restrict any use of the in formation to criminally investigate or prosecute any alcohol or drug abuse valeria ent. [facility] HospitalIn the event this information is protected by the Federal Confidentiality of Alcohol and Drug Abuse Patient Records regulations: This inform ation has been disclosed to you from records protected by Federal confidentiality rul es ( The Federal rules restrict any use of the in formation to criminally investigate or prosecute any alcohol or drug abuse valeria ent. [facility] HospitalIn the event this information is protected by the Federal Confidentiality of Alcohol and Drug Abuse Patient Records regulations: This inform ation has been disclosed to you from records protected by Federal confidentiality rul es ( The Federal rules restrict any use of the in formation to criminally investigate or prosecute any alcohol or drug abuse valeria ent. [facility] HospitalIn the event this information is protected by the Federal Confidentiality of Alcohol and Drug Abuse Patient Records regulations: This inform ation has been disclosed to you from records protected by Federal confidentiality rul es ( The Federal rules restrict any use of the in formation to criminally investigate or prosecute any alcohol or drug abuse valeria ent. [facility] HospitalIn the event this information is protected by the Federal Confidentiality of Alcohol and Drug Abuse Patient Records regulations: This inform ation has been disclosed to you from records protected by Federal confidentiality rul es ( The Federal rules restrict any use of the in formation to criminally investigate or prosecute any alcohol or drug abuse valeria ent. [facility] HospitalIn the event this information is protected by the Federal Confidentiality of Alcohol and Drug Abuse Patient Records regulations: This inform ation has been disclosed to you from records protected by Federal confidentiality rul es ( The Federal rules restrict any use of the in formation to criminally investigate or prosecute any alcohol or drug abuse valeria ent. [facility] HospitalIn the event this information is protected by the Federal Confidentiality of Alcohol and Drug Abuse Patient Records regulations: This inform ation has been disclosed to you from records protected by Federal confidentiality rul es ( The Federal rules restrict any use of the in formation to criminally investigate or prosecute any alcohol or drug abuse valeria ent. [facility] HospitalIn the event this information is protected by the Federal Confidentiality of Alcohol and Drug Abuse Patient Records regulations: This inform ation has been disclosed to you from records protected by Federal confidentiality rul es ( The Federal rules restrict any use of the in formation to criminally investigate or prosecute any alcohol or drug abuse valeria ent. [facility] HospitalIn the event this information is protected by the Federal Confidentiality of Alcohol and Drug Abuse Patient Records regulations: This inform ation has been disclosed to you from records protected by Federal confidentiality rul es ( The Federal rules restrict any use of the in formation to criminally investigate or prosecute any alcohol or drug abuse valeria ent. [facility] HospitalIn the event this information is protected by the Federal Confidentiality of Alcohol and Drug Abuse Patient Records regulations: This inform ation has been disclosed to you from records protected by Federal confidentiality rul es ( The Federal rules restrict any use of the in formation to criminally investigate or prosecute any alcohol or drug abuse valeria ent. [facility] HospitalIn the event this information is protected by the Federal Confidentiality of Alcohol and Drug Abuse Patient Records regulations: This inform ation has been disclosed to you from records protected by Federal confidentiality rul es ( The Federal rules restrict any use of the in formation to criminally investigate or prosecute any alcohol or drug abuse valeria ent. [facility] HospitalIn the event this information is protected by the Federal Confidentiality of Alcohol and Drug Abuse Patient Records regulations: This inform ation has been disclosed to you from records protected by Federal confidentiality rul es ( The Federal rules restrict any use of the in formation to criminally investigate or prosecute any alcohol or drug abuse valeria ent. [facility] HospitalIn the event this information is protected by the Federal Confidentiality of Alcohol and Drug Abuse Patient Records regulations: This inform ation has been disclosed to you from records protected by Federal confidentiality rul es ( The Federal rules restrict any use of the in formation to criminally investigate or prosecute any alcohol or drug abuse valeria ent. [facility] HospitalIn the event this information is protected by the Federal Confidentiality of Alcohol and Drug Abuse Patient Records regulations: This inform ation has been disclosed to you from records protected by Federal confidentiality rul es ( The Federal rules restrict any use of the in formation to criminally investigate or prosecute any alcohol or drug abuse valeria ent. [facility] HospitalIn the event this information is protected by the Federal Confidentiality of Alcohol and Drug Abuse Patient Records regulations: This inform ation has been disclosed to you from records protected by Federal confidentiality rul es ( The Federal rules restrict any use of the in formation to criminally investigate or prosecute any alcohol or drug abuse valeria ent. [facility] HospitalIn the event this information is protected by the Federal Confidentiality of Alcohol and Drug Abuse Patient Records regulations: This inform ation has been disclosed to you from records protected by Federal confidentiality rul es ( The Federal rules restrict any use of the in formation to criminally investigate or prosecute any alcohol or drug abuse valeria ent. [facility] HospitalIn the event this information is protected by the Federal Confidentiality of Alcohol and Drug Abuse Patient Records regulations: This inform ation has been disclosed to you from records protected by Federal confidentiality rul es ( The Federal rules restrict any use of the in formation to criminally investigate or prosecute any alcohol or drug abuse valeria ent. [facility] HospitalIn the event this information is protected by the Federal Confidentiality of Alcohol and Drug Abuse Patient Records regulations: This inform ation has been disclosed to you from records protected by Federal confidentiality rul es ( The Federal rules restrict any use of the in formation to criminally investigate or prosecute any alcohol or drug abuse valeria ent. [facility] HospitalIn the event this information is protected by the Federal Confidentiality of Alcohol and Drug Abuse Patient Records regulations: This inform ation has been disclosed to you from records protected by Federal confidentiality rul es ( The Federal rules restrict any use of the in formation to criminally investigate or prosecute any alcohol or drug abuse valeria ent. [facility] HospitalIn the event this information is protected by the Federal Confidentiality of Alcohol and Drug Abuse Patient Records regulations: This inform ation has been disclosed to you from records protected by Federal confidentiality rul es ( The Federal rules restrict any use of the in formation to criminally investigate or prosecute any alcohol or drug abuse valeria ent. [facility] Reason for Visit (unrecognized section a nd content) Reason Comments Medication Request Reason Comments Spirometry Specialty Diagnoses / Procedures Referred By Referred To Contact [facility] Diagnoses Stage 4 very severe COPD by GOLD classification ([facility]) ILD (interstitial lung disease) ([facility]) Jacquelin Patel Respiratory Inst itute Procedures SPIROMETRY BASELINE ONLY SPIROMETRY WO BRONCHODILATOR M, PA-C [address] [place] [address] Referral ID Status Reason Start Date Expiration Date Visits Requ ested Visits Authorized [id number] Closed 08/07/2021 04/18/2022 1 1 Specialty Diagnoses / Procedures Referred By Referred To Contact [facility] Diagnoses Stage 4 very severe COPD by GOLD classification ([facility]) ILD (interstitial lung disease) ([facility]) Jacquelin Patel Respiratory Inst itute Procedures LUNG DIFFUSION CAPACITY ([facility]) DIFFUSING CAPACITY M, PA-C [address] [place] [address] Referral ID Status Reason Start Date Expiration Date Visits Requ ested Visits Authorized [id number] Closed 08/07/2021 04/18/2022 1 1 Specialty Diagnoses / Procedures Referred By Referred To Contact [facility] Diagnoses Stage 4 very severe COPD by GOLD classification ([facility]) ILD (interstitial lung disease) ([facility]) Jacquelin Patel Respiratory Inst itute Procedures SIX MINUTE WALK CARDIOPULMONARY EXERCISE STRESS M, PA-C [address] [place] [address] [address] [place] [address] Referral ID Status Reason Start Date Expiration Date Visits V isits Requested Authorized [id number] Authorized 08/07/2021 04/18/2022 2 2 Reason Comments Established Patient COPD Specialty Diagnoses / Procedures Referred By Contact Refer red To Contact Pulmonary and Critical Diagnoses 6 Month F/U Jacquelin Patel, Jacquelin Patel, Care Medicine / Procedures RI EST COPD PA-C PA-C PULMONARY MEDICINE [address] [place] [address] [place] [address] Fax: Referral ID Status Reason Start Date Expiration Date Visits V isits Requested Authorized [id number] Closed Financial 08/07/2021 04/18/2022 1 1 Clearance Required - OON Payor Patient Cleared INN/SM[facility] Payor Auth Obtained Reason Onset Date Comments Refill Request 08/21/2021 Reason Comments Cardiology Follow Up no issues today Specialty Diagnoses / Referred By Contact Referred To Contact Procedures Cardiology / CARD Diagnoses 6 month follow up Yovani Piedra Michael MEDINA Procedures EST PATIENT L, DO L, DO [address] [place] [address] [place] [address] Fax: Referral ID Status Reason Start Date Expiration Date Visits Requ ested Visits Authorized [id number] Closed 09/08/2021 04/18/2022 1 1 Reason Onset Date Comments Refill Request 09/11/2021 Reason Comments Joint Pain Specialty Diagnoses / Procedures Referred By Contact Refer red To Contact Internal Medicine / Diagnoses JT Pain/3 months with me in office st labs prior Asia Calderón MD Sharma, Niharika, RHEUMATOLOGY Procedures EST PATIENT [address] BELTRÁN MD [address] [place] [address] [address] [place] [address] Phone: Fax: Referral ID Status Reason Start Date Expiration Date Visits Requ ested Visits Authorized [id number] Closed 09/18/2021 04/18/2022 1 1 Reason Comments Non-insulin Dependent Diabetes Mellitus blood sugar ch ecked by Dr. Becerra Floaters Both Eyes Pseudophakia both eyes Specialty Diagnoses / Procedures Referred By Contact Refer red To Contact Optometry / OPHTHALMOLOGY Diagnoses diabetic exam Self Isaac Panchal Procedures EST ADULT T, OD [address] [place], [place] [address] Phone: Fax: Referral ID Status Reason Start Date Expiration Date Visits Requ ested Visits Authorized [id number] Closed 09/19/2021 04/18/2022 1 1 Reason Comments Arthritis follow up Specialty Diagnoses / Procedures Referred By Contact Refer red To Contact Family Practice / Diagnoses Follow up Alexa Becerra, Alexa Becerra, FAMILY MEDICINE Procedures 4C EST PA-C PA-C [address] [place] [address] [place] [address] Fax: Referral ID Status Reason Start Date Expiration Date Visits Requ ested Visits Authorized [id number] Closed 09/23/2021 04/18/2022 1 1 Reason Onset Date Comments ACM INEZ RN 10/13/2021 Suspect Condition Re view Reason Comments Joint Pain Reason Comments APPROVED-NO PA REQ Orencia APPROVED NO PA REQ A [id number] 11.10.2021 - 11.10.2022 12 Reason Comments New Patient Rheumotologist sent for eval uation Reason Onset Date Comments Refill Request 11/04/2021 Reason Comments Infusion Specialty Diagnoses / Procedures Referred By Contact Refer red To Contact Diagnoses Rheumatoid arthritis involving multiple sites with positive rheumatoid factor (HCC) Asia Calderón MD Josue Treat [facility] [place] Procedures [address] [facility] [address] [place] [address] [place] [address] Fax: Referral ID Status Reason Start Date Expiration Date Visits V isits Requested Authorized [id number] Authorized 10/22/2021 11/10/2022 12 13 Reason Comments Medication Problem Reason Comments Refill Request Reason Comments Rheumatoid Arthritis Reason Comments Follow Up Reason Onset Date Comments Population Health Navigation Outreach 01/12/2022 C care gaps Reason Comments COPD Reason Comments Orders RECLAST Reason Onset Date Comments Refill Request 03/04/2022 Reason Comments Patient Update Care Teams (unrecognized section and con tent) Prepress Manager Relationship Specialty Start Date End Date Alexa Becerra PA-C PCP - General Family Practice 02/13/19 [address] [place] [address] Yovani Piedra, DO Primary Staff Physician Cardiology 07/05/18 Prepress Manager Relationship Specialty Start Date End Date Alexa Becerra PA-C PCP - General Family Practice 02/13/19 [address] [place] [address] Yovani Piedra, DO Primary Staff Physician Cardiology 07/05/18 Prepress Manager Relationship Specialty Start Date End Date Alexa Becerra PA-C PCP - General Family Practice 02/13/19 [address] [place] [address] Yovani Piedra, DO Primary Staff Physician Cardiology 07/05/18 Prepress Manager Relationship Specialty Start Date End Date Alexa Becerra PA-C PCP - General Family Practice 02/13/19 [address] [place] [address] Yovani Piedra, DO Primary Staff Physician Cardiology 07/05/18 Prepress Manager Relationship Specialty Start Date End Date Alexa Becerra PA-C PCP - General Family Practice 02/13/19 [address] [place] [address] Yovani Piedra, DO Primary Staff Physician Cardiology 07/05/18 Prepress Manager Relationship Specialty Start Date End Date Becerra, M Adelina, PA-C PCP - General Family Practice 02/13/19 [address] [place] [address] Yovani Piedra, DO Primary Staff Physician Cardiology 07/05/18 Prepress Manager Relationship Specialty Start Date End Date Alexa Becerra PA-C PCP - General Family Practice 02/13/19 [address] [place] [address] Yovani Piedra, DO Primary Staff Physician Cardiology 07/05/18 Prepress Manager Relationship Specialty Start Date End Date Alexa Becerra PA-C PCP - General Family Practice 02/13/19 [address] [place] [address] Yovani Piedra, DO Primary Staff Physician Cardiology 07/05/18 Prepress Manager Relationship Specialty Start Date End Date Alexa Becerra PA-C PCP - General Family Practice 02/13/19 [address] [place] [address] Yovani Piedra, DO Primary Staff Physician Cardiology 07/05/18 Prepress Manager Relationship Specialty Start Date End Date Alexa Becerra PA-C PCP - General Family Practice 02/13/19 [address] [place] [address] Yovani Piedra, DO Primary Staff Physician Cardiology 07/05/18 Prepress Manager Relationship Specialty Start Date End Date Alexa Becerra PA-C PCP - General Family Practice 02/13/19 [address] [place] [address] Yovani Piedra, DO Primary Staff Physician Cardiology 07/05/18 Prepress Manager Relationship Specialty Start Date End Date Alexa Becerra PA-C PCP - General Family Practice 02/13/19 [address] [place] [address] Yovani Piedra, DO Primary Staff Physician Cardiology 07/05/18 Prepress Manager Relationship Specialty Start Date End Date Alexa Becerra PA-C PCP - General Family Practice 02/13/19 [address] [place] [address] Yovani Piedra, DO Primary Staff Physician Cardiology 07/05/18 Prepress Manager Relationship Specialty Start Date End Date Alexa Becerra PA-C PCP - General Family Medicine 02/13/19 [address] [place] [address] Yovani Piedra, DO Primary Staff Physician Cardiology 07/05/18 Prepress Manager Relationship Specialty Start Date End Date Alexa Becerra PA-C PCP - General Family Medicine 02/13/19 [address] [place] [address] Yovani Piedra, DO Primary Staff Physician Cardiology 07/05/18 Prepress Manager Relationship Specialty Start Date End Date Alexa Becerra PA-C PCP - General Family Medicine 02/13/19 [address] [place] [address] Yovani Piedra, DO Primary Staff Physician Cardiology 07/05/18 Prepress Manager Relationship Specialty Start Date End Date Alexa Becerra PA-C PCP - General Family Medicine 02/13/19 [address] [place] [address] Yovani Piedra, DO Primary Staff Physician Cardiology 07/05/18 Prepress Manager Relationship Specialty Start Date End Date Alexa Becerra PA-C PCP - General Family Medicine 02/13/19 [address] [place] [address] Yovani Piedra, DO Primary Staff Physician Cardiology 07/05/18 Prepress Manager Relationship Specialty Start Date End Date Alexa Becerra PA-C PCP - General Family Medicine 02/13/19 [address] [place] [address] Yovani Piedra, DO Primary Staff Physician Cardiology 07/05/18 Prepress Manager Relationship Specialty Start Date End Date Alexa Becerra PA-C PCP - General Family Medicine 02/13/19 [address] [place] [address] Yovani Piedra, DO Primary Staff Physician Cardiology 07/05/18 Prepress Manager Relationship Specialty Start Date End Date Alexa Becerra PA-C PCP - General Family Medicine 02/13/19 [address] [place] [address] Yovani Piedra, DO Primary Staff Physician Cardiology 07/05/18 Prepress Manager Relationship Specialty Start Date End Date Alexa Becerra PA-C PCP - General Family Medicine 02/13/19 [address] [facility] [address] Yovani Piedra, DO Primary Staff Physician Cardiology 07/05/18 [address] [place] [address] Prepress Manager Relationship Specialty Start Date End Date Alexa Becerra PA-C PCP - General Family Medicine 02/13/19 [address] [place] [address] Yovani Piedra, DO Primary Staff Physician Cardiology 07/05/18 [address] [place] [address] Prepress Manager Relationship Specialty Start Date End Date Alexa Becerra PA-C PCP - General Family Medicine 02/13/19 [address] [place] [address] Yovani Piedra, DO Primary Staff Physician Cardiology 07/05/18 [address] [facility] [address] Prepress Manager Relationship Specialty Start Date End Date Alexa Becerra PA-C PCP - General Family Medicine 02/13/19 [address] [facility] [address] Yovani Piedra, DO Primary Staff Physician Cardiology 07/05/18 [address] [place] [address] FOR RECORDS PERTAINING TO PATIENTS WHO ARE [...] BE BASED ON THE PRIMARY CLINICAL RECORDS. [facility]. provides no warranty or guarantee of the accuracy or completeness of information in this document.
[2022-04-06 18:23] LABS: Reflex Lactate? Y
[2022-04-06 19:05] LABS: Lactic Acid 1.2 mmol/L (0.4-1.9)
--- NOTE | 2022-04-06 19:38 | ED.RN ---
DR. SMITH IN ROOM REQUESTING INTUBATION PRIOR TO TRANSPORT TO ICU. PT CURRENTLY ON BIPAP.
[2022-04-06] MEDS: Etomidate 20 MG/10 ML Vial IV (19:43)
[2022-04-06] MEDS: Propofol 10MG/Ml 1,000 MG/100 ML Bottle 4.79999999999999982 MG CONT INF (19:57)
--- NOTE | 2022-04-06 19:59 | ED.RN ---
PT INTUBATED BY DR. SMITH AT 1954. POSITIVE COLOR CHANGE NOTED AND BREATH SOUNDS AUSCULTATED. OG PLACED BY Radha CHAU RN AT 1955. AIR BOLUS AUSCULTATED BY Mason NOLASCO RN.
--- NOTE | 2022-04-06 20:05 | RAD_ITS ---
STUDY: X-RAY CHEST REASON FOR EXAM: Female, 66 years old. INTUBATION TECHNIQUE: XR Chest 1 View COMPARISON: Study done earlier today. FINDINGS: There is atherosclerotic calcification of the aortic arch with tortuosity. There are diffuse degenerative changes of the visualized thoracic spine. There is degenerative osteoarthritis of the bilateral shoulders. There are bilateral pleural effusions. There are bilateral infiltrates. There is no pneumothorax. There is an NGT and ET tube in place. Normal size heart. Normal mediastinum and jessica. Normal visualized pulmonary arteries. There is no demonstrated abnormality of the visualized soft tissue structures of the upper abdomen. RAD/Chest 1 View (Portable) IMPRESSION: There is bilateral infiltrate. There is an endotracheal tube in place. The tip is 9 mm above the angela. This is low. It should be pushed back by 33 mm. Electronically Signed: Howie Oliva MD at 20:15 EST ,
--- NOTE | 2022-04-06 20:15 | CPS ---
cuff leaking, dr fox used tube exchanger to replace tube size 7.5 24 at lip-color changed on cap-bbs
--- NOTE | 2022-04-06 20:18 | PCM.OP.PRO ---
Assessment & Plan Assessment/Plan (1) Acute and chronic respiratory failure, unspecified whether with hypoxia or hypercapnia: (2) Pneumonia: (3) Respiratory acidosis: Procedure Report Date of Procedure: 04/06/22 Indication: Acute hypoxic and hypercapnic respiratory failure. Failure of improvement with BiPAP. Had a repeat ABG that showed the pH is still low as a 0.15 despite being on BiPAP for 2 to 3 hours. PCO2 was still elevated at 68 though the PO2 was improved to 106. Case was discussed with the patient's and agreed to proceed with intubation. Risk and benefits were explained to him. Procedure: Patient received 20 mg of etomidate. Using glide scope, vocal cords were visualized and noted caked on brown secretions over the vocal cords and the epiglottis. The 7.5 ETT tube was advanced through the vocal cords and had good color exchange. Bilateral breath sounds were auscultated. Balloon was inflated without difficulty. It was noted a short time later that the patient's oxygenation was not improving as would be expected and it was noted that the patient had a audible air leak around the ET tube. It was determined that there was a leak in the balloon of the ET tube. Using a Cook catheter, tube was removed and a another 7.5 ET tube was advanced to 25 cm at the lips. Good color exchange and bilateral breath sounds were heard. Follow-up chest x-ray showed the ET tube was just slightly into the right bronchus. It was withdrawn 1.5 cm to 23.5 cm. An OG tube was also advanced and on x-ray that was in the stomach. Procedures Hospitalists Procedures: [id number] Insert Emergency Airway
--- NOTE | 2022-04-06 20:37 | ED.RN ---
BILATERAL SOFT WRIST RESTRAINTS APPLIED AT 20:00. ORDER SIGNED BY DR. SMITH. BILATERAL SOFT WRIST RESTRAINTS INDICATED FOR NON-VIOLENT, NON-SELF DESTRUCTIVE BEHAVIOR DUE TO INTUBATION.
[2022-04-06] MEDS: 0.9% Normal Saline 1,000 ML 150 ML IV (21:00)
[2022-04-06] MEDS: Chlorhexidine 15 ML PO (22:15)
[2022-04-06] MEDS: Albuterol 2.5 MG/3 ML VIAL.NEB. INHALATION (22:15)
[2022-04-06] MEDS: 0.9% Saline Lock 10 ML Syringe IV (22:17)
[2022-04-06 22:28] LABS: CPK Total, Creatine Kinase 93 U/L (26-192); Triglycerides 159 mg/dL
--- NOTE | 2022-04-06 22:35 | PCM.RX.CS ---
Consult Pharmacy has been consulted to manage selected antiobiotic: Vancomycin Type of Consult: New start Labs: Sodium 135 mmol/L (136-145) L 04/06/22 13:41 Potassium 4.6 mmol/L (3.5-5.1) 04/06/22 13:41 Chloride 103 mmol/L (98-107) 04/06/22 13:41 Carbon Dioxide 23.0 mmol/L (21.0-32.0) 04/06/22 13:41 Anion Gap 9 (5-15) 04/06/22 13:41 BUN 55 mg/dL (7-18) H 04/06/22 13:41 Creatinine 1.30 mg/dL (0.55-1.02) H 04/06/22 13:41 Est GFR (MDRD) Af Amer 53 mL/min (>60) L 04/06/22 13:41 Est GFR (MDRD) Non-Af 44 mL/min (>60) L 04/06/22 13:41 BUN/Creatinine Ratio 42.3 RATIO (10-20) H 04/06/22 13:41 Glucose 136 mg/dL (74-106) H 04/06/22 13:41 Microbiology: Microbiology 04/06/22 21:40 Urine Catheter - Bravo Legionella Antigen - Final 04/06/22 21:40 Urine Catheter - Bravo Streptococcus pneumoniae Antigen (M - Final 04/06/22 14:50 Nasal Secretion SARS-CoV-2 & FLU Antigen (Rapid) - Final Weight used for dosin kg Estimated Creatinine Clearance: 46.8 Pharmacy Plan for Drug Dosing: Pharmacy Service will continue to monitor and adjust dosing as required. Medications Vancomycin HCl 1,250 mg/ (Sodium Chloride) 275 mls @ 167 mls/hr IV X1 ONE Stop: 04/06/22 23:08 Last Admin: 04/06/22 22:15 Dose: 167 mls/hr Vancomycin HCl () 500 mg in 100 mls @ 100 mls/hr IV Q12H ELENA Follow-Up Labs: Trough Vancomycin Labs to be done on [date and time ordered]: 04/08 @ 1000
[2022-04-06 22:40] LABS: Allen Test Positive; Base Excess -6 mmol/L (-2 to +2); Bicarbonate 22.1 mmol/L (22-26); Blood Gas Specimen Type ART; FI02 40; Mode AC; O2 Delivery Device ET Tube; PEEP 5; PO2 96 mmHG (75-100); RR 12; SITE L Radial; SO2 96 % (95-99); Total Carbon Dioxide 24 mmol/L; Vt 480; pCO2 54.9 mmHg (35-45); pH 7.21 (7.35-7.45)
[2022-04-07] VITALS (42 sets, daily range): BP systolic 82–123; BP diastolic 50–82; PULSE 90–131; RESP 12–24; TEMP 36.3–39.4; O2SAT 93–100
[2022-04-07] MEDS: Ipratropium/Albuterol Sulfate 3 ML AMPUL.NEB INHALATION ×3 (01:31→19:38)
[2022-04-07 03:55] LABS: Absolute Lymphocyte Count 0.21 X10^3/uL (0.83-4.51); Absolute Neutrophil Count 16.3 X10^3/uL (2.0-7.7); Basophil# 0.05 X10^3/uL; Basophil% 0.3 % (0-1); Eosinophil# 0.06 X10^3/uL; Eosinophils% 0.3 % (0-5); Hematocrit 27.2 % (37-47); Lymphocyte # 0.21 X10^3/ul (0.83-4.51); Lymphocyte % 1.2 % (19-41); Mean Corp Hgb Conc 29.4 g/dL (32-36); Mean Corpuscular Hgb 30.4 pg (27.0-32.0); Mean Corpuscular Volume 103.4 fL (81-99); Mean Platelet Vol. 10.2 fl (6.2-12.0); Monocyte# 0.37 X10^3/uL; Monocyte% 2.2 % (0-10); NRBC Flagged by Analyzer 0 % (0-5); Neutrophil # 16.29 X10^3/uL (2.7-7.7); POSITIVE DIFFERENTIAL YES; POSITIVE MORPHOLOGY YES; Platelet Count 247 K/mm3 (150-450); RBC Distribution Width CV 14.7 % (11.6-14.6); RBC Distribution Width SD 55.7 fl (35.1-43.9); Red Blood Count 2.63 M/mm3 (4.2-5.4); White Blood Count 17.2 K/mm3 (4.4-11.0)
[2022-04-07 04:02] LABS: Differential Indicated SCAN CRITERIA MET
[2022-04-07 04:18] LABS: ALB/GLOB Ratio 0.3 RATIO (0.9-2.4); AST(SGOT) 18 U/L (15-37); Alanine Aminotransfer ALT/SGPT < 6 U/L (13-56); Alkaline Phosphatase 81 U/L (45-117); Anion Gap 9 (5-15); BUN 41 mg/dL (7-18); BUN/Creat Ratio 64.8 RATIO (10-20); Calcium,Total 5.4 mg/dL (8.5-10.1); Chloride 118 mmol/L (98-107); Creatinine, Serum 0.63 mg/dL (0.55-1.02); EST Glomerular Filtration Rate 100 mL/min (>60); Est Glom Filt Rate - Afr Amer 121 mL/min (>60); Estimated Creatinine Clearance 87.73 ml/min; Globulin 3.3 g/dL (2.2-4.2); Glucose 91 mg/dL (74-106); Potassium 3.8 mmol/L (3.5-5.1); Protein, Total 4.3 g/dL (6.4-8.2); Sodium Level 144 mmol/L (136-145)
[2022-04-07 04:28] LABS: Differential Comment SCANNED
[2022-04-07] MEDS: Propofol 10MG/Ml 1,000 MG/100 ML Bottle 9.69999999999999929 MG CONT INF (04:31)
[2022-04-07] MEDS: 0.9% Saline Lock 10 ML Syringe IV ×4 (04:32→21:33)
[2022-04-07] MEDS: CHLORHEXIDINE GLUC 2% CLOTH 1 EACH TOWELETTE TOPICAL (04:32)
--- NOTE | 2022-04-07 06:40 | RAD_ITS ---
STUDY: X-RAY CHEST REASON FOR EXAM: Female, 66 years old. ETT placement -- portable TECHNIQUE: Single AP portable view of the chest. COMPARISON: Comparison is made with prior study dated 04/06/2022. FINDINGS: An endotracheal tube is seen with the tip at 2.3 cm proximal to the angela. An oral gastric tube is seen with the distal portion of the body of the stomach. EKG electrodes are seen. Stable bilateral increased coarse and markings with areas of confluence worsened in the right hemithorax. Blunting of both costophrenic angles. Normal size heart. Normal mediastinum and jessica. Normal visualized pulmonary arteries. Normal visualized aortic arch and descending thoracic aorta. Normal visualized thoracic spine. Normal visualized ribs, clavicles, and shoulders. There is no demonstrated abnormality of the visualized soft tissue structures of the upper abdomen. RAD/Chest 1 View (Portable) IMPRESSION: Essentially stable examination. The tip of the endotracheal tube is at 2.3 cm proximal to the angela. Electronically Signed: Porter Vallecillo MD at 12:39 EST ,
[2022-04-07] MEDS: TITRATION PARAMETER CHANGE 1 EACH IV (06:53)
[2022-04-07 06:56] LABS: Allen Test Negative; Base Excess -11 mmol/L (-2 to +2); Bicarbonate 16.8 mmol/L (22-26); Blood Gas Specimen Type ART; FI02 30; Mode AC; O2 Delivery Device Adult Vent; PEEP 5; PO2 60 mmHG (75-100); RR 12; SITE L Radial; SO2 86 % (95-99); Total Carbon Dioxide 18 mmol/L; Vt 480; pCO2 40.3 mmHg (35-45); pH 7.23 (7.35-7.45)
--- NOTE | 2022-04-07 07:50 | PCM.RX.CS ---
Consult Pharmacy has been consulted to manage selected antiobiotic: Vancomycin Type of Consult: Follow-up Labs: Sodium 144 mmol/L (136-145) 04/07/22 03:48 Potassium 3.8 mmol/L (3.5-5.1) 04/07/22 03:48 Chloride 118 mmol/L (98-107) H 04/07/22 03:48 Carbon Dioxide 17.0 mmol/L (21.0-32.0) L 04/07/22 03:48 Anion Gap 9 (5-15) 04/07/22 03:48 BUN 41 mg/dL (7-18) H 04/07/22 03:48 Creatinine 0.63 mg/dL (0.55-1.02) 04/07/22 03:48 Est GFR (MDRD) Af Amer 121 mL/min (>60) 04/07/22 03:48 Est GFR (MDRD) Non-Af 100 mL/min (>60) 04/07/22 03:48 BUN/Creatinine Ratio 64.8 RATIO (10-20) H 04/07/22 03:48 Glucose 91 mg/dL (74-106) 04/07/22 03:48 Microbiology: Microbiology 04/06/22 21:40 Urine Catheter - Bravo Legionella Antigen - Final 04/06/22 21:40 Urine Catheter - Bravo Streptococcus pneumoniae Antigen (M - Final 04/06/22 14:50 Nasal Secretion SARS-CoV-2 & FLU Antigen (Rapid) - Final Goal Trough: 15-20 mcg/mL Pharmacy Plan for Drug Dosing: Patient with significantly improved renal function compared to yesterday (SCr 1.3 --> 0.63 today). Will plan on changing vancomycin dose. Will start patient on vancomycin 1250mg IV Q12hr to start 04/07/22 @1030 Trough scheduled prior to 4th total dose of vancomycin, 04/08/22 @1000 Pharmacy Service will continue to monitor and adjust dosing as required.
--- NOTE | 2022-04-07 08:13 | CON.PCM.CC_ITS ---
Assessment & Plan Assessment/Plan (1) Acute and chronic respiratory failure, unspecified whether with hypoxia or hypercapnia: (2) Chronic atrial fibrillation with rapid ventricular response: (3) Bronchiectasis: QUALIFIERS: Bronchiectasis type: uncomplicated Qualified Code(s): J47.9 - Bronchiectasis, uncomplicated (4) Pneumonia: PLAN: Plan RECOMMENDATIONS: 1. Continue mechanical ventilation at current settings. SBT/SAT per protocol 2. Continue empiric antibiotics pending cultures 3. Initiate pressors if needed for hypotension 4. Agree with bronchodilators, steroids and mucolytic 5. Potentially transition to heparin drip if renal function does not improve IMPRESSIONS: 1. Acute on chronic combined respiratory failure secondary to bilateral pneumonia Patient with significant leukocytosis, acute kidney injury and failure to respond to BiPAP therapy. ABG this morning shows adequate oxygenation and ventilation on current settings. Spontaneous breathing and awakening trials per protocol. Clinical suspicion for concomitant pneumonia, so antibiotics would be indicated. Did not exclude the need for a central line. 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 2. Acute kidney injury secondary to sepsis secondary to pneumonia Patient with leukocytosis, acute kidney injury, tachycardia and tachypnea. Endorgan damage indicated by acute kidney injury and metabolic encephalopathy. Patient's blood pressures have been marginal at this time. Cannot exclude the need for pressors in the near future. We will continue to monitor in the intensive care unit. Patient may need a central line to facilitate pressors. Renal function appears to have responded well to hemodynamic support 3. Metabolic encephalopathy Clinical suspicion for CO2 narcosis. Patient has had significant improvement after initiation of mechanical ventilation. Patient is on propofol and fentanyl. Agree with holding gabapentin. 4. A. fib with RVR Patient anticoagulated and on rate control at baseline. Likely not appropriate to continue metoprolol given marginal blood pressures given problems #1 and 2. Renal function has improved, so likely okay to continue with rivaroxaban for now. If renal function worsens, transition to heparin drip may be necessary. 5. Anemia/hypertension/debility/bronchiectasis/rheumatoid lung disease Complicates care, management, recovery and prognosis. No indication for transfusions at this time. 6. Nonanion gap metabolic acidosis secondary to hyperchloremia Likely secondary to volume resuscitation. Avoid normal saline for now. Will likely improve on its own with lack of chloride infusion and normalization of renal function. Okay to start tube feeds and discontinue IV fluids. TIME: 35 minutes critical care time spent addressing patient's respiratory failure, acute kidney injury, metabolic encephalopathy, sepsis, A. fib with RVR, review of all data and collaboration with care team HPI Consult Data Date of Consult: 04/07/22 HPI Narrative Reason for Consultation: Respiratory failure HPI Narrative: BOBBY FLORES is a 66 F, with past medical history listed below and known to me from previous hospitalizations, who presents to [facility] on 04/06/2022 secondary to altered mental status. Patient reportedly presented with her with decreased mental status. Patient reportedly had had diarrhea for 24 hours prior to presentation. Patient had been complaining of vomiting and abdominal pain, along with weakness on the 2 days prior. Patient reportedly had been attempting Pedialyte to maintain hydration. When patient stopped answering questions she was brought to the ER for evaluation. In the ER, patient was noted to be hypothermic initially at 95.5 ?F, but tachypneic at 33 breaths/min and requiring 5 L to maintain saturations. Patient also had some initial hypotension and was placed on BiPAP. Laboratory data showed a white blood cell count of 23.4, hemoglobin of 11.3 and platelets of 360. Creatinine was slightly elevated at 1.3 and lactate was 2.4. INR was elevated at 2.6 and UA appeared to be contaminated. Initial ABG showed significant hypercarbic respiratory acidosis with a pH of 7.16 and CO2 of 70. Little improvement was noted on AVAPS, so patient was intubated in the ER. Patient reportedly did have some issues with a blown balloon, so had to be exchanged. Chest x-ray did show progressive infiltration in the right hemithorax. Patient was noted to be in A. fib with RVR with a heart rate of 110, but no ST segment or T wave changes. Patient was admitted to the intensive care unit for further evaluation. Since being in the intensive care unit, patient has not required any pressor agents. Patient has been doing better from an oxygenation standpoint, but still has significant endotracheal secretions. These have been described as bloody. Respiratory and nursing are reporting that these have darkening up overnight. Unable to obtain review of systems secondary to patient's intubated status and sedation. [facility] Medical History Abdominal cramping Anemia Asthma Atrial fibrillation Bronchitis Chest pain Diabetes Former smoker GERD (gastroesophageal reflux disease) Hypertension Hyperthyroidism Irregular heart beat Lack of appetite Nausea On home oxygen therapy Pneumonia Rheumatoid arthritis Home Medications acetaminophen 500 mg tablet 1,000 mg PO Q6H PRN PAIN 01/30/19 [History Last Taken 04/06/22] gabapentin 100 mg capsule 200 mg PO BID NERVE PAIN 05/10/19 [History Last Taken 04/06/22] ipratropium 0.5 mg-albuterol 3 mg (2.5 mg base)/3 mL nebulization soln 3 ml inhalation Q6H.RT copd 05/10/19 [History Last Taken 09/10/20] ondansetron HCl 4 mg tablet (Zofran) 4 mg PO Q6H nausea #10 tabs 08/27/20 [Rx Last Taken 04/06/22] budesonide 0.5 mg/2 mL suspension for nebulization 0.5 mg inhalation BID sob 09/02/20 [History Last Taken 09/10/20] budesonide-formoterol HFA 160 mcg-4.5 mcg/actuation aerosol inhaler (Symbicort) 2 puff inhalation BID LUNGS 04/06/22 [History Last Taken 04/06/22] cholecalciferol (vitamin D3) 1,250 mcg (50,000 unit) capsule 50,000 unit PO QMONTH SUPPLEMENT 04/06/22 [History Last Taken Unknown] dextromethorphan-guaifenesin 30 mg-600 mg tablet extended ymzonoh20 hr (Mucinex DM) 1 tab PO Q12H CHEST CONGESTION 04/06/22 [History Last Taken 04/06/22] ferrous gluconate 324 mg (37.5 mg iron) tablet 324 mg PO BID SUPPLEMENT 04/06/22 [History Last Taken 03/31/22] gabapentin 400 mg capsule 400 mg PO TID NERVE PAIN 04/06/22 [History Last Taken 04/05/22] leflunomide 20 mg tablet 20 mg PO DAILY ARTHRITIS 04/06/22 [History Last Taken 04/06/22] metoprolol succinate 100 mg tablet,extended release 24 hr 100 mg PO DAILY HEART 04/06/22 [History Last Taken 04/06/22] omeprazole 40 mg capsule,delayed release 40 mg PO DAILY PRN REFLUX 04/06/22 [History Last Taken Unknown] rivaroxaban 20 mg tablet (Xarelto) 20 mg PO DAILY HEART 04/06/22 [History Last Taken 04/05/22] venlafaxine 37.5 mg capsule,extended release 24 hr 37.5 mg PO DAILY MOOD 04/06/22 [History Last Taken 04/05/22] verapamil 80 mg tablet 40 mg PO Q8 HEART 04/06/22 [History Last Taken 04/06/22] Allergy/AdvReac Type Severity Reaction Status Date / Time No Known Allergies Allergy Verified 09/02/20 16:24 Surgical History H/O: hysterectomy Social History household members: spouse Smoking Status: Former smoker substance use type: does not use ROS Review of Systems ROS Unobtainable: due to endotracheal tube Physical Exam Const General Appearance: lethargic and patient mechanically ventilated HEENT normocephalic, head/scalp atraumatic and moist oral mucous membranes HEENT Narrative: Edentulous Eyes PERRL, EOMs intact bilaterally and conjunctivae normal Eyes Narrative: No icterus Neck no lymphadenopathy and no JVD Resp Resp Narrative: Bilateral crackles. Auscultation: rhonchi throughout and diminished lung sounds; Negative for rales or wheezes Cardio regular rate, S1 normal heart sound and S2 normal heart sound Rhythm: abnormal rhythm irregularly irregular GI normal to inspection, nondistended, normoactive bowel sounds, soft to palpation, non-tender and non-distended Extremity normal to inspection and full ROM Neuro moves all extremities and no focal motor deficits Lab / Micro Data Attestation: I reviewed the patient's lab results. Result Diagrams: 04/07/22 03:48 04/07/22 03:48 Labs: Laboratory Results - last 24 hr 04/06/22 13:41: WBC 23.4 H, RBC 3.73 L, Hgb 11.3 L, Hct 38.6, MCV 103.5 H, MCH 30.3, MCHC 29.3 L, RDW Std Deviation 54.8 H, RDW Coeff of Lainey 14.6, Plt Count 360, MPV 10.4, Immature Gran % (Auto) 2.200 H, Neut % (Auto) 86.1 H, Lymph % (Auto) 5.3 L, Stanton % (Auto) 5.3, Eos % (Auto) 0.3, Baso % (Auto) 0.8, Absolute Neuts (auto) 20.1 H, Absolute Lymphs (auto) 1.23, Nucleated RBC % 0.2, Differential Comment COMMENT 04/06/22 13:41: Sodium 135 L, Potassium 4.6, Chloride 103, Carbon Dioxide 23.0, Anion Gap 9, BUN 55 H, Creatinine 1.30 H, Estim Creat Clear Calc 37.75, Est GFR (MDRD) Af Amer 53 L, Est GFR (MDRD) Non-Af 44 L, BUN/Creatinine Ratio 42.3 H, Glucose 136 H, Calcium 8.3 L 04/06/22 13:41: Lactic Acid 2.4 H* 04/06/22 13:41: PT 27.2 H, INR 2.6, APTT 43.6 H 04/06/22 13:41: Total Creatine Kinase 93, Triglycerides 159 04/06/22 13:50: Urine Color Yellow, Urine Clarity Sl. Cloudy, Urine pH 5.0, Ur Specific Wilson 1.020, Urine Protein 30 H, Urine Glucose (UA) Normal, Urine Ketones 5 H, Urine Occult Blood 10 H, Urine Nitrite Negative, Urine Bilirubin 1 H, Urine Urobilinogen 1 H, Ur Leukocyte Esterase 25 H, Urine RBC 0-5 SEEN, Urine WBC 0-5 SEEN, Ur Squamous Epith Cells 0-5 SEEN, Urine Bacteria 4+, Urine Mucus 0 SEEN 04/06/22 18:31: Lactic Acid 1.2 04/07/22 03:48: WBC 17.2 H, RBC 2.63 L, Hgb 8.0 L, Hct 27.2 L, MCV 103.4 H, MCH 30.4, MCHC 29.4 L, RDW Std Deviation 55.7 H, RDW Coeff of Lainey 14.7 H, Plt Count 247, MPV 10.2, Immature Gran % (Auto) 1.000 H, Neut % (Auto) 95.0 H, Lymph % (Auto) 1.2 L, Stanton % (Auto) 2.2, Eos % (Auto) 0.3, Baso % (Auto) 0.3, Absolute Neuts (auto) 16.3 H, Absolute Lymphs (auto) 0.21 L, Nucleated RBC % 0, Differential Comment SCANNED 04/07/22 03:48: Sodium 144, Potassium 3.8, Chloride 118 H, Carbon Dioxide 17.0 L , Anion Gap 9, BUN 41 H, Creatinine 0.63, Estim Creat Clear Calc 87.73, Est GFR (MDRD) Af Amer 121, Est GFR (MDRD) Non-Af 100, BUN/Creatinine Ratio 64.8 H, Glucose 91, Calcium 5.4 L*, Total Bilirubin 0.40, AST 18, ALT < 6 L, Alkaline Phosphatase 81, Total Protein 4.3 L, Albumin 1.0 L, Globulin 3.3, Albumin/Glob ulin Ratio 0.3 L Micro: Microbiology 04/06/22 21:40 Urine Catheter - Bravo Legionella Antigen - Final 04/06/22 21:40 Urine Catheter - Bravo Streptococcus pneumoniae Antigen (M - Final 04/06/22 14:50 Nasal Secretion SARS-CoV-2 & FLU Antigen (Rapid) - Final ABG Data ABG results: ABG 04/06/22 04/06/22 04/06/22 14:58 16:18 18:00 Specimen Type ART ART ART Sample Site L Brach L Brach L Radial pH 7.16 L* 7.17 L* 7.15 L* Bicarbonate Actual 25.0 24.4 23.9 Total CO2 27 26 26 Base Excess -4 L -4 L -5 L O2 Saturation 49 L 93 L 96 O2 % 40 40 ABG pCO2 70.0 H* 67.0 H 68.1 H* ABG pO2 35 L* 88 106 H Adán Test Positive Positive Respiration Rate 12 12 O2 Delivery Device Cannula BiPAP Liter Flow 5.0 Vent Mode NIV BiLevel Tidal Volume 450 450 POC PEEP 12 10 Crit Call To/Read Back Yes Yes Yes Blood Gas Notified Whom kirill calero 04/06/22 04/07/22 22:37 06:48 Specimen Type ART ART Sample Site L Radial L Radial pH 7.21 L 7.23 L Bicarbonate Actual 22.1 16.8 L Total CO2 24 18 Base Excess -6 L -11 L O2 Saturation 96 86 L O2 % 40 30 ABG pCO2 54.9 H 40.3 ABG pO2 96 60 L Adán Test Positive Negative Respiration Rate 12 12 O2 Delivery Device ET Tube Adult Vent Liter Flow Vent Mode AC AC Tidal Volume 480 480 POC PEEP 5 5 Crit Call To/Read Back Blood Gas Notified Whom Attestation: I personally reviewed and interpreted this ABG as follows: (Acidosis with significant improvement in respiratory component, but still with significant metabolic) Radiology Impression Brain CT 04/06/22 13:54 IMPRESSION: Normal unenhanced CT scan of the brain. Opacification of the right maxillary sinus. Electronically Signed: Porter Vallecillo MD at 14:55 EST , Chest X-Ray 04/06/22 14:16 IMPRESSION: Progressive infiltration in the right hemithorax suggestive of a possible superimposed pneumonia on chronic progressive interstitial fibrosis. Electronically Signed: Porter Vallecillo MD at 15:16 EST , Chest X-Ray 04/06/22 20:05 IMPRESSION: There is bilateral infiltrate. There is an endotracheal tube in place. The tip is 9 mm above the angela. This is low. It should be pushed back by 33 mm. Electronically Signed: Howie Oliva MD at 20:15 EST , Charges/Coding Procedures Hospitalists Procedures: [id number] Critial Care 1st Hr
[2022-04-07] MEDS: Rivaroxaban 20 MG Tablet PO (09:43)
[2022-04-07] MEDS: Chlorhexidine 15 ML PO ×2 (09:43→20:50)
[2022-04-07] MEDS: guaiFENesin 10 ML UDC (200MG/10ML) GT ×2 (09:43→13:42)
--- NOTE | 2022-04-07 09:48 | PN.HOSP_ITS ---
Subjective Subjective Follow-up on acute respiratory failure/pneumonia/KAY: Patient was seen and examined. She remains intubated on minimal oxygen requirements. She remains febrile overnight. 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 Objective Data Objective Data Vital Signs: Vital Signs Temp Pulse Resp BP Pulse Ox O2 Del Method O2 Flow Rate 100.5 F H 108 H 14 116/74 100 Mechanical Ventilator 5 04/07/22 08:00 04/07/22 09:32 04/07/22 09:32 04/07/22 09:00 04/07/22 09:32 04/07/22 09:00 04/06/22 15:00 FiO2 35 04/07/22 09:32 Oxygen Flow Rate (L/min) 5 Oxygen Delivery Method Mechanical Ventilator Weight: 77.791 kg Body Mass Index (BMI) 26.6 Intake & Output: Intake and Output for Last 24 Hours 04/05/22 04/06/22 04/07/22 23:59 23:59 23:59 Intake Total 3454.16 / 3463.96 1385.82 / 1385.82 Output Total 700 / 700 Balance 3454.16 / 3163.96 685.82 / 685.82 Lab / Micro Data Result Diagrams: 04/07/22 03:48 04/07/22 03:48 Labs: Laboratory Results - last 24 hr 04/06/22 13:41: WBC 23.4 H, RBC 3.73 L, Hgb 11.3 L, Hct 38.6, MCV 103.5 H, MCH 30.3, MCHC 29.3 L, RDW Std Deviation 54.8 H, RDW Coeff of Lainey 14.6, Plt Count 360, MPV 10.4, Immature Gran % (Auto) 2.200 H, Neut % (Auto) 86.1 H, Lymph % (Auto) 5.3 L, Hill % (Auto) 5.3, Eos % (Auto) 0.3, Baso % (Auto) 0.8, Absolute Neuts (auto) 20.1 H, Absolute Lymphs (auto) 1.23, Nucleated RBC % 0.2, Differential Comment COMMENT 04/06/22 13:41: Sodium 135 L, Potassium 4.6, Chloride 103, Carbon Dioxide 23.0, Anion Gap 9, BUN 55 H, Creatinine 1.30 H, Estim Creat Clear Calc 37.75, Est GFR (MDRD) Af Amer 53 L, Est GFR (MDRD) Non-Af 44 L, BUN/Creatinine Ratio 42.3 H, Glucose 136 H, Calcium 8.3 L 04/06/22 13:41: Lactic Acid 2.4 H* 04/06/22 13:41: PT 27.2 H, INR 2.6, APTT 43.6 H 04/06/22 13:41: Total Creatine Kinase 93, Triglycerides 159 04/06/22 13:50: Urine Color Yellow, Urine Clarity Sl. Cloudy, Urine pH 5.0, Ur Specific [place] 1.020, Urine Protein 30 H, Urine Glucose (UA) Normal, Urine Ketones 5 H, Urine Occult Blood 10 H, Urine Nitrite Negative, Urine Bilirubin 1 H, Urine Urobilinogen 1 H, Ur Leukocyte Esterase 25 H, Urine RBC 0-5 SEEN, Urine WBC 0-5 SEEN, Ur Squamous Epith Cells 0-5 SEEN, Urine Bacteria 4+, Urine Mucus 0 SEEN 04/06/22 18:31: Lactic Acid 1.2 04/07/22 03:48: WBC 17.2 H, RBC 2.63 L, Hgb 8.0 L, Hct 27.2 L, MCV 103.4 H, MCH 30.4, MCHC 29.4 L, RDW Std Deviation 55.7 H, RDW Coeff of Lainey 14.7 H, Plt Count 247, MPV 10.2, Immature Gran % (Auto) 1.000 H, Neut % (Auto) 95.0 H, Lymph % (Auto) 1.2 L, Hill % (Auto) 2.2, Eos % (Auto) 0.3, Baso % (Auto) 0.3, Absolute Neuts (auto) 16.3 H, Absolute Lymphs (auto) 0.21 L, Nucleated RBC % 0, Differential Comment SCANNED 04/07/22 03:48: Sodium 144, Potassium 3.8, Chloride 118 H, Carbon Dioxide 17.0 L , Anion Gap 9, BUN 41 H, Creatinine 0.63, Estim Creat Clear Calc 87.73, Est GFR (MDRD) Af Amer 121, Est GFR (MDRD) Non-Af 100, BUN/Creatinine Ratio 64.8 H, Glucose 91, Calcium 5.4 L*, Total Bilirubin 0.40, AST 18, ALT < 6 L, Alkaline Phosphatase 81, Total Protein 4.3 L, Albumin 1.0 L, Globulin 3.3, Albumin/Globulin Ratio 0.3 L Micro: Microbiology 04/06/22 13:50 Urine Catheter - Bravo Urine Culture - Preliminary GNR lactose parking enforcement officer 04/06/22 21:40 Urine Catheter - Bravo Legionella Antigen - Final 04/06/22 21:40 Urine Catheter - Bravo Streptococcus pneumoniae Antigen (M - Final 04/06/22 14:50 Nasal Secretion SARS-CoV-2 & FLU Antigen (Rapid) - Final ABG Data ABG results: ABG 04/06/22 04/06/22 04/06/22 14:58 16:18 18:00 Specimen Type ART ART ART Sample Site L Brach L Brach L Radial pH 7.16 L* 7.17 L* 7.15 L* Bicarbonate Actual 25.0 24.4 23.9 Total CO2 27 26 26 Base Excess -4 L -4 L -5 L O2 Saturation 49 L 93 L 96 O2 % 40 40 ABG pCO2 70.0 H* 67.0 H 68.1 H* ABG pO2 35 L* 88 106 H Adán Test Positive Positive Respiration Rate 12 12 O2 Delivery Device Cannula BiPAP Liter Flow 5.0 Vent Mode NIV BiLevel Tidal Volume 450 450 POC PEEP 12 10 Crit Call To/Read Back Yes Yes Yes Blood Gas Notified Whom kirill calero 04/06/22 04/07/22 22:37 06:48 Specimen Type ART ART Sample Site L Radial L Radial pH 7.21 L 7.23 L Bicarbonate Actual 22.1 16.8 L Total CO2 24 18 Base Excess -6 L -11 L O2 Saturation 96 86 L O2 % 40 30 ABG pCO2 54.9 H 40.3 ABG pO2 96 60 L Adán Test Positive Negative Respiration Rate 12 12 O2 Delivery Device ET Tube Adult Vent Liter Flow Vent Mode AC AC Tidal Volume 480 480 POC PEEP 5 5 Crit Call To/Read Back Blood Gas Notified Whom Radiography Diagnostic Testing: Radiology Impression Brain CT 04/06/22 13:54 IMPRESSION: Normal unenhanced CT scan of the brain. Opacification of the right maxillary sinus. Electronically Signed: Porter Vallecillo MD at 14:55 EST , Chest X-Ray 04/06/22 14:16 IMPRESSION: Progressive infiltration in the right hemithorax suggestive of a possible superimposed pneumonia on chronic progressive interstitial fibrosis. Electronically Signed: Porter Vallecillo MD at 15:16 EST , Chest X-Ray 04/06/22 20:05 IMPRESSION: There is bilateral infiltrate. There is an endotracheal tube in place. The tip is 9 mm above the angela. This is low. It should be pushed back by 33 mm. Electronically Signed: Howie Oliva MD at 20:15 EST Reading Location ID and State: [facility] / [place] , Service support , Physical Exam Narrative Physical exam: General: Sedated, intubated, on mechanical ventilator HEENT: Atraumatic Oral: Moist Mucosa Neck: Supple Lungs: Diminished to auscultation Cardiovascular: HS I+II, regular, no murmurs Abdomen: Bowel Sounds Present, Soft, Non Tender Extremities: Bilateral pedal edema, trace Skin: No rashes, No breakdown Neurological: Grossly intact Psych/Mental Status: Appropriate Assessment & Plan Assessment/Plan (1) Acute and chronic respiratory failure, unspecified whether with hypoxia or hypercapnia: (2) Pneumonia: (3) Respiratory acidosis: PLAN: Plan 1. Acute on chronic combined respiratory failure secondary to pneumonia/acute COPD/bronchiectasis exacerbation/probable Acute GNR UTI. Status post intubation, remains on mechanical ventilator Urine legionella and streptococcal antigen is negative. Sputum and blood cultures are pending Continue IV Solu-Medrol, IV vancomycin and Zosyn Industrial Paramedic following, follow-up on recommendation 2. Hypertension, remains relatively hypotensive, home blood pressure medications on hold Continue to monitor 3. Chronic atrial fibrillation, fairly rate controlled, off verapamil and metoprolol on account of hypotension, continue on Xarelto We will continue to monitor. Area 4. Anemia, drop in hemoglobin from 11.3 to 8.0, likely secondary to hemodilution Red blood cell indices shows macrocytosis, will check TSH, vitamin B12, folate, retic count Continue to hold ferrous gluconate now 5. Rheumatoid arthritis, will hold leflunomide for now 6. DVT PPx-on Xarelto Charges/Coding Visit Charges Inpatient E&M: 19766 Subs Hosp L3
[2022-04-07] MEDS: Vital AF 1.2 Cal Liquid 1,000 ML 20 ML GT (10:54)
[2022-04-07] MEDS: Acetaminophen 650 MG/20 ML UDC GT ×2 (11:28→20:46)
[2022-04-07 11:50] LABS: Bedside Glucose 124 mg/dL (74-106)
[2022-04-07] MEDS: Propofol 10MG/Ml 1,000 MG/100 ML Bottle 11.6999999999999993 MG CONT INF (12:17)
[2022-04-07 12:59] LABS: Platelet Count 256 K/mm3 (150-450); RET-HE 31.4 pg (30-35); Reticulocyte Count 2.15 % (0.5-1.5)
[2022-04-07 13:28] LABS: ALB/GLOB Ratio 0.3 RATIO (0.9-2.4); AST(SGOT) 24 U/L (15-37); Alanine Aminotransfer ALT/SGPT 9 U/L (13-56); Albumin, Serum 1.5 g/dL (3.2-5.0); Alkaline Phosphatase 120 U/L (45-117); Anion Gap 9 (5-15); BUN 51 mg/dL (7-18); BUN/Creat Ratio 46.4 RATIO (10-20); Calcium,Total 6.9 mg/dL (8.5-10.1); Chloride 111 mmol/L (98-107); EST Glomerular Filtration Rate 53 mL/min (>60); Est Glom Filt Rate - Afr Amer 64 mL/min (>60); Estimated Creatinine Clearance 50.24 ml/min; Globulin 4.4 g/dL (2.2-4.2); Glucose 148 mg/dL (74-106); Potassium 5.1 mmol/L (3.5-5.1); Protein, Total 5.9 g/dL (6.4-8.2); Sodium Level 140 mmol/L (136-145)
[2022-04-07 13:33] LABS: Vitamin B12 1915 pg/mL (211-911)
--- NOTE | 2022-04-07 15:12 | CASEMGMT ---
SHALOM ZAVALA Discharge Planning Assessment: Pt intubated an unable to participate in assessment at this time. Call placed to pt's spouse Enmanuel who agreed to participate in assessment for initial transition planning/care coordination. SHALOM ZAVALA introduced self and role at [facility], pt's spouse voiced understanding. Care providers, pharmacy, and demographics verified. PCP: RICARDO Almanza Specialists: Pt sees a willow machine tender, transportation technician, and boiler room operator but spouse unable to recall the providers' names. Preferred Pharmacy: [facility] Insurance: [facility] Dual and JAIME Prescription Benefit: Yes Living Will/HPOA: No LNOK: pt's spouse Enmanuel Living Arrangements: Pt lives in a mobile home with spouse with 5 steps to enter. Pt has been independent with ADLS, including meal prep and housekeeper child care. Transportation: Pt drives. Pt's spouse is able to drive if pt unable DME: shower chair, raised toilet seat, walker, lift chair, nebulizer and [facility] Plan: TBD but goal to return home with spouse's support. Will continue to monitor pt's medical progress and evaluate for discharge needs. Rai Hernandez RN CM
--- NOTE | 2022-04-07 15:28 | NURSING ---
4 yellow colored rings removed from patient's fingers d/t swelling. Placed in cup with a lid. Placed cup in belongings bag in closet
[2022-04-07] MEDS: Insulin Lispro 100 UNIT/ML INSULN.PEN SC (17:08)
[2022-04-07] MEDS: GUAIFENESIN 200 MG/10 ML PO ×2 (17:08→20:46)
[2022-04-07] MEDS: CMPD PO ×2 (17:08→20:46)
[2022-04-07 18:35] LABS: Bedside Glucose 190 mg/dL (74-106)
[2022-04-07] MEDS: Metoprolol Tartrate 5 MG/5 ML Vial IV (21:28)
[2022-04-07] MEDS: Metoprolol(XL)Succ 25 MG Tablet 12.5 MG PO (21:33)
[2022-04-07] MEDS: Propofol 10MG/Ml 1,000 MG/100 ML Bottle 7 MG CONT INF (23:52)
[2022-04-08] VITALS (37 sets, daily range): BP systolic 81–151; BP diastolic 54–98; PULSE 88–124; RESP 12–22; TEMP 36.6–39.2; O2SAT 94–100
[2022-04-08] MEDS: Insulin Lispro 100 UNIT/ML INSULN.PEN SC ×4 (00:01→17:37)
[2022-04-08 00:35] LABS: Bedside Glucose 212 mg/dL (74-106)
[2022-04-08] MEDS: Ipratropium/Albuterol Sulfate 3 ML AMPUL.NEB INHALATION ×4 (01:03→19:00)
[2022-04-08] MEDS: GUAIFENESIN 200 MG/10 ML PO ×6 (02:03→20:33)
[2022-04-08] MEDS: CMPD PO ×6 (02:03→20:33)
[2022-04-08 04:21] LABS: Absolute Neutrophil Count 18.3 X10^3/uL (2.0-7.7); Basophil# 0.07 X10^3/uL; Basophil% 0.4 % (0-1); Hematocrit 30.3 % (37-47); Hemoglobin 8.9 g/dL (12.0-15.0); Lymphocyte % 2.1 % (19-41); Mean Corp Hgb Conc 29.4 g/dL (32-36); Mean Corpuscular Hgb 30.8 pg (27.0-32.0); Mean Corpuscular Volume 104.8 fL (81-99); Monocyte# 0.45 X10^3/uL; Monocyte% 2.3 % (0-10); NRBC Flagged by Analyzer 0.2 % (0-5); Neutrophil % 93.7 % (47-70); POSITIVE DIFFERENTIAL YES; Platelet Count 245 K/mm3 (150-450); RBC Distribution Width CV 15.2 % (11.6-14.6); RBC Distribution Width SD 57.7 fl (35.1-43.9); Red Blood Count 2.89 M/mm3 (4.2-5.4); White Blood Count 19.5 K/mm3 (4.4-11.0)
[2022-04-08 04:25] LABS: Differential Indicated SCAN CRITERIA MET
[2022-04-08 04:35] LABS: Anion Gap 6 (5-15); BUN 49 mg/dL (7-18); BUN/Creat Ratio 40.5 RATIO (10-20); Calcium,Total 6.9 mg/dL (8.5-10.1); Chloride 111 mmol/L (98-107); Creatinine, Serum 1.21 mg/dL (0.55-1.02); EST Glomerular Filtration Rate 48 mL/min (>60); Est Glom Filt Rate - Afr Amer 57 mL/min (>60); Estimated Creatinine Clearance 45.68 ml/min; Glucose 305 mg/dL (74-106); Potassium 4.4 mmol/L (3.5-5.1); Sodium Level 139 mmol/L (136-145)
[2022-04-08 04:41] LABS: Differential Comment SCANNED
[2022-04-08] MEDS: CHLORHEXIDINE GLUC 2% CLOTH 1 EACH TOWELETTE TOPICAL (04:51)
[2022-04-08] MEDS: Metoprolol Tartrate 5 MG/5 ML Vial IV (05:35)
[2022-04-08 05:50] LABS: Bedside Glucose 278 mg/dL (74-106)
[2022-04-08 06:06] LABS: Allen Test Positive; Base Excess -8 mmol/L (-2 to +2); Bicarbonate 19.1 mmol/L (22-26); Blood Gas Specimen Type ART; FI02 30; Mode CPAP/PS; O2 Delivery Device Adult Vent; PEEP 5; PO2 70 mmHG (75-100); PS 5; SITE L Radial; SO2 91 % (95-99); Total Carbon Dioxide 21 mmol/L; pCO2 42.7 mmHg (35-45); pH 7.26 (7.35-7.45)
--- NOTE | 2022-04-08 07:18 | PCM.PN.HOSP ---
Subjective Subjective Follow-up on acute respiratory failure/pneumonia/KAY: Patient was seen and examined. Overnight, she had episodes of fever and tachycardia. She remains intubated on minimal oxygen requirements.? Blood cultures are still pending. Urine cultures growing gram-negative dave lactose master electrician, sputum cultures growing staph aureus. Objective Data Objective Data Vital Signs: Vital Signs Temp Pulse Resp BP Pulse Ox O2 Del Method O2 Flow Rate 99.8 F H 101 H 15 91/62 96 Mechanical Ventilator 5 04/08/22 07:00 04/08/22 07:06 04/08/22 07:06 04/08/22 07:00 04/08/22 07:06 04/08/22 07:00 04/06/22 15:00 FiO2 30 04/08/22 07:06 Oxygen Flow Rate (L/min) 5 Oxygen Delivery Method Mechanical Ventilator Weight: 77.111 kg Body Mass Index (BMI) 26.6 Intake & Output: Intake and Output for Last 24 Hours 04/06/22 04/07/22 04/08/22 23:59 23:59 23:59 Intake Total 3454.16 / 3463.96 2549.96 / 2605.89 949.47 / 949.47 Output Total 1250 / 1600 750 / 750 Balance 3454.16 / 3163.96 1299.96 / 1005.89 199.47 / 199.47 Lab / Micro Data Result Diagrams: 04/08/22 04:15 04/08/22 04:15 Labs: Laboratory Results - last 24 hr 04/07/22 03:48: Retic Count 2.15 H, Immature Retic Fraction 27.00 H, Retic Hgb Equivalent 31.4 04/07/22 11:27: POC Glucose 124 H 04/07/22 12:45: Sodium 140, Potassium 5.1, Chloride 111 H, Carbon Dioxide 20.0 L, Anion Gap 9, BUN 51 H, Creatinine 1.10 H, Estim Creat Clear Calc 50.24, Est GFR (MDRD) Af Amer 64, Est GFR (MDRD) Non-Af 53 L, BUN/Creatinine Ratio 46.4 H, Glucose 148 H, Calcium 6.9 L, Total Bilirubin 0.50, AST 24, ALT 9 L, Alkaline Phosphatase 120 H, Total Protein 5.9 L, Albumin 1.5 L, Globulin 4.4 H, Albumin/Globulin Ratio 0.3 L, Folate 16.50, TSH 0.10 L 04/07/22 12:45: Vitamin B12 1915 H 04/07/22 17:05: POC Glucose 190 H 04/08/22 00:00: POC Glucose 212 H 04/08/22 04:15: WBC 19.5 H, RBC 2.89 L, Hgb 8.9 L, Hct 30.3 L, MCV 104.8 H, MCH 30.8, MCHC 29.4 L, RDW Std Deviation 57.7 H, RDW Coeff of Lainey 15.2 H, Plt Count 245, MPV 10.0, Immature Gran % (Auto) 1.500 H, Neut % (Auto) 93.7 H, Lymph % (Auto) 2.1 L, [place] % (Auto) 2.3, Eos % (Auto) 0.0, Baso % (Auto) 0.4, Absolute Neuts (auto) 18.3 H, Absolute Lymphs (auto) 0.40 L, Nucleated RBC % 0.2, Differential Comment SCANNED 04/08/22 04:15: Sodium 139, Potassium 4.4, Chloride 111 H, Carbon Dioxide 22.0, Anion Gap 6, BUN 49 H, Creatinine 1.21 H, Estim Creat Clear Calc 45.68, Est GFR (MDRD) Af Amer 57 L, Est GFR (MDRD) Non-Af 48 L, BUN/Creatinine Ratio 40.5 H, Glucose 305 H, Calcium 6.9 L 04/08/22 05:03: POC Glucose 278 H Micro: Microbiology 04/06/22 20:35 Sputum, Tracheal Aspirate Gram Stain - Final 04/06/22 13:50 Urine Catheter - Bravo Urine Culture - Preliminary GNR lactose master electrician 04/06/22 21:40 Urine Catheter - Bravo Legionella Antigen - Final 04/06/22 21:40 Urine Catheter - Bravo Streptococcus pneumoniae Antigen (M - Final 04/06/22 14:50 Nasal Secretion SARS-CoV-2 & FLU Antigen (Rapid) - Final ABG Data ABG results: ABG 04/08/22 05:59 Specimen Type ART Sample Site L Radial pH 7.26 L Bicarbonate Actual 19.1 L Total CO2 21 Base Excess -8 L O2 Saturation 91 L O2 % 30 ABG pCO2 42.7 ABG pO2 70 L Adán Test Positive O2 Delivery Device Adult Vent Vent Mode CPAP/PS POC PEEP 5 POC Pressure Suppt 5 Radiography Diagnostic Testing: Radiology Impression Chest X-Ray 04/07/22 06:40 IMPRESSION: Essentially stable examination. The tip of the endotracheal tube is at 2.3 cm proximal to the angela. Electronically Signed: Porter Vallecillo MD at 12:39 EST , Physical Exam Narrative Physical exam: General: Sedated, intubated, on mechanical ventilator HEENT: Atraumatic Oral: Moist Mucosa Neck: Supple Lungs: Diminished to auscultation Cardiovascular: HS I+II, regular, no murmurs Abdomen: Bowel Sounds Present, Soft, Non Tender Extremities: Bilateral pedal edema, trace Skin: No rashes, No breakdown Neurological: Grossly intact Psych/Mental Status: Appropriate Assessment & Plan Assessment/Plan (1) Acute and chronic respiratory failure, unspecified whether with hypoxia or hypercapnia: (2) Pneumonia: (3) Respiratory acidosis: PLAN: Plan 1. Acute on chronic combined respiratory failure secondary to pneumonia/acute COPD/bronchiectasis exacerbation/probable Acute GNR UTI. Status post intubation, remains on mechanical ventilator Urine legionella and streptococcal antigen is negative. Sputum growing staph aureus, blood cultures are pending Continue IV Solu-Medrol, IV vancomycin and Zosyn Automatic Silk Screen Printer following, follow-up on recommendations 2. Hypertension, remains relatively hypotensive, home blood pressure medications on hold Continue to monitor 3. Chronic atrial fibrillation, patient is slightly tachycardic, Off verapamil and metoprolol on account of hypotension, Continue on Xarelto 4. Anemia, remains at 8.9. Reticulocyte count is elevated TSH is low at 0.10, vitamin B12 and folate are normal Will trend labs 5. KAY, likely prerenal from #1, creatinine today is 1.21, up from her baseline 0.63 We will obtain kidney and bladder ultrasound, nephrology consult 6. Rheumatoid arthritis, will hold leflunomide for now 6. DVT PPx-on Xarelto Charges/Coding Visit Charges Inpatient E&M: 34820 Subs Hosp L3
--- NOTE | 2022-04-08 07:44 | PCM.PN.INT ---
Assessment & Plan Assessment/Plan (1) Acute and chronic respiratory failure, unspecified whether with hypoxia or hypercapnia: (2) Chronic atrial fibrillation with rapid ventricular response: (3) Bronchiectasis: QUALIFIERS: Bronchiectasis type: uncomplicated Qualified Code(s): J47.9 - Bronchiectasis, uncomplicated (4) Pneumonia: PLAN: Plan RECOMMENDATIONS: 1. Continue mechanical ventilation at current settings. SBT/SAT per protocol 2. Continue empiric antibiotics pending cultures 3. Increase metoprolol 4. Agree with bronchodilators, steroids and mucolytic 5. Potentially transition to heparin drip if renal function does not improve by tomorrow IMPRESSIONS: 1. Acute on chronic combined respiratory failure secondary to bilateral pneumonia Patient with significant leukocytosis, acute kidney injury and failure to respond to BiPAP therapy. ABG this morning shows adequate oxygenation and ventilation on current settings. Spontaneous breathing and awakening trials per protocol. Patient did have a trial this morning, but still has significant acidosis. Clinical suspicion for concomitant pneumonia, so antibiotics would be indicated. Did not exclude the need for a central line. 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 2. Acute kidney injury secondary to sepsis secondary to pneumonia Patient with leukocytosis, acute kidney injury, tachycardia and tachypnea. Endorgan damage indicated by acute kidney injury and metabolic encephalopathy. Patient's blood pressures have been marginal at this time. Cannot exclude the need for pressors in the near future. We will continue to monitor in the intensive care unit. Patient may need a central line to facilitate pressors. Renal function appears to have responded well to hemodynamic support 3. Metabolic encephalopathy Clinical suspicion for CO2 narcosis. Patient has had significant improvement after initiation of mechanical ventilation. Patient is on propofol and fentanyl. Agree with holding gabapentin. 4. A. fib with RVR Patient anticoagulated and on rate control at baseline. Likely not appropriate to continue metoprolol given marginal blood pressures given problems #1 and 2. If renal function not improved by tomorrow, we will have to transition to a heparin drip 5. Anemia/hypertension/debility/bronchiectasis/rheumatoid lung disease Complicates care, management, recovery and prognosis. No indication for transfusions at this time. 6. Nonanion gap metabolic acidosis secondary to hyperchloremia Likely secondary to volume resuscitation. Avoid normal saline for now. Will likely improve on its own with lack of chloride infusion and normalization of renal function. Okay to start tube feeds and discontinue IV fluids. TIME: 38 minutes critical care time spent addressing patient's respiratory failure, acute kidney injury, metabolic encephalopathy, sepsis, A. fib with RVR, review of all data and collaboration with care team Subjective Subjective Patient did okay overnight. Nursing is reporting patient is tolerating tube feeds and has had improvement in secretions. Patient did have A. fib with RVR overnight and was placed on metoprolol. Patient also with significant fevers noted requiring a cooling blanket. Patient was placed on a spontaneous breathing trial this morning, but was not extubated given ABG showing continued acidosis Objective Data Objective Data Vital Signs: Vital Signs Temp Pulse Resp BP Pulse Ox O2 Del Method O2 Flow Rate 37.7 C H 101 H 15 91/62 96 Mechanical Ventilator 5 04/08/22 07:00 04/08/22 07:06 04/08/22 07:06 04/08/22 07:00 04/08/22 07:06 04/08/22 07:00 04/06/22 15:00 FiO2 30 04/08/22 07:06 Oxygen Flow Rate (L/min) 5 Oxygen Delivery Method Mechanical Ventilator Weight: 77.111 kg Body Mass Index (BMI) 26.6 Intake & Output: Intake and Output for Last 24 Hours 04/06/22 04/07/22 04/08/22 23:59 23:59 23:59 Intake Total 3454.16 / 3463.96 2549.96 / 2605.89 949.47 / 949.47 Output Total 1250 / 1600 750 / 750 Balance 3454.16 / 3163.96 1299.96 / 1005.89 199.47 / 199.47 Lab / Micro Data Attestation: I reviewed the patient's lab results. Result Diagrams: 04/08/22 04:15 04/08/22 04:15 Labs: Laboratory Results - last 24 hr 04/07/22 03:48: Retic Count 2.15 H, Immature Retic Fraction 27.00 H, Retic Hgb Equivalent 31.4 04/07/22 11:27: POC Glucose 124 H 04/07/22 12:45: Sodium 140, Potassium 5.1, Chloride 111 H, Carbon Dioxide 20.0 L, Anion Gap 9, BUN 51 H, Creatinine 1.10 H, Estim Creat Clear Calc 50.24, Est GFR (MDRD) Af Amer 64, Est GFR (MDRD) Non-Af 53 L, BUN/Creatinine Ratio 46.4 H, Glucose 148 H, Calcium 6.9 L, Total Bilirubin 0.50, AST 24, ALT 9 L, Alkaline Phosphatase 120 H, Total Protein 5.9 L, Albumin 1.5 L, Globulin 4.4 H, Albumin/Globulin Ratio 0.3 L, Folate 16.50, TSH 0.10 L 04/07/22 12:45: Vitamin B12 1915 H 04/07/22 17:05: POC Glucose 190 H 04/08/22 00:00: POC Glucose 212 H 04/08/22 04:15: WBC 19.5 H, RBC 2.89 L, Hgb 8.9 L, Hct 30.3 L, MCV 104.8 H, MCH 30.8, MCHC 29.4 L, RDW Std Deviation 57.7 H, RDW Coeff of Lainey 15.2 H, Plt Count 245, MPV 10.0, Immature Gran % (Auto) 1.500 H, Neut % (Auto) 93.7 H, Lymph % (Auto) 2.1 L, [place] % (Auto) 2.3, Eos % (Auto) 0.0, Baso % (Auto) 0.4, Absolute Neuts (auto) 18.3 H, Absolute Lymphs (auto) 0.40 L, Nucleated RBC % 0.2, Differential Comment SCANNED 04/08/22 04:15: Sodium 139, Potassium 4.4, Chloride 111 H, Carbon Dioxide 22.0, Anion Gap 6, BUN 49 H, Creatinine 1.21 H, Estim Creat Clear Calc 45.68, Est GFR (MDRD) Af Amer 57 L, Est GFR (MDRD) Non-Af 48 L, BUN/Creatinine Ratio 40.5 H, Glucose 305 H, Calcium 6.9 L 04/08/22 05:03: POC Glucose 278 H Micro: Microbiology 04/06/22 20:35 Sputum, Tracheal Aspirate Gram Stain - Final 04/06/22 13:50 Urine Catheter - Bravo Urine Culture - Preliminary GNR lactose site supervising technical operator 04/06/22 21:40 Urine Catheter - Bravo Legionella Antigen - Final 04/06/22 21:40 Urine Catheter - Bravo Streptococcus pneumoniae Antigen (M - Final 04/06/22 14:50 Nasal Secretion SARS-CoV-2 & FLU Antigen (Rapid) - Final ABG Data ABG results: ABG 04/08/22 05:59 Specimen Type ART Sample Site L Radial pH 7.26 L Bicarbonate Actual 19.1 L Total CO2 21 Base Excess -8 L O2 Saturation 91 L O2 % 30 ABG pCO2 42.7 ABG pO2 70 L Adán Test Positive O2 Delivery Device Adult Vent Vent Mode CPAP/PS POC PEEP 5 POC Pressure Suppt 5 Radiography Diagnostic Testing: Radiology Impression Chest X-Ray 04/07/22 06:40 IMPRESSION: Essentially stable examination. The tip of the endotracheal tube is at 2.3 cm proximal to the angela. Electronically Signed: Porter Vallecillo MD at 12:39 EST , Physical Exam Const Constitutional Narrative: RASS -2. Good ventilator synchrony General Appearance: patient mechanically ventilated HEENT normocephalic, head/scalp atraumatic and moist oral mucous membranes Mouth: endotracheal tube in place and OG tube in place Eyes PERRL, EOMs intact bilaterally and conjunctivae normal Eyes Narrative: No icterus Neck no lymphadenopathy and no JVD Resp Auscultation: rhonchi throughout and diminished lung sounds; Negative for rales or wheezes Cardio regular rate, S1 normal heart sound, S2 normal heart sound, no murmurs, no rub and no gallops Rhythm: abnormal rhythm irregularly irregular GI normal to inspection, nondistended, normoactive bowel sounds, soft to palpation, non-tender and non-distended Extremity normal to inspection and full ROM Neuro moves all extremities and no focal motor deficits Psych Mood & Affect: flat affect Charges/Coding Procedures Hospitalists Procedures: 51880 Critial Care 1st Hr
[2022-04-08 08:17] LABS: AST(SGOT) 22 U/L (15-37); Alanine Aminotransfer ALT/SGPT 9 U/L (13-56); Albumin, Serum 1.5 g/dL (3.2-5.0); Alkaline Phosphatase 128 U/L (45-117); Bilirubin, Direct 0.19 mg/dL (0.00-0.30); Globulin 4.2 g/dL (2.2-4.2); Protein, Total 5.7 g/dL (6.4-8.2)
[2022-04-08] MEDS: Chlorhexidine 15 ML PO ×2 (09:31→20:37)
[2022-04-08] MEDS: Rivaroxaban 20 MG Tablet PO (09:32)
--- NOTE | 2022-04-08 09:32 | US_ITS ---
STUDY: RENAL ULTRASOUND - COMPLETE REASON FOR EXAM: Female, 66 years old. KAY TECHNIQUE: Ultrasound evaluation of the kidneys was performed with real-time and static sunshine-scale imaging. COMPARISON: ct 09.02.20 FINDINGS: RIGHT KIDNEY: Normal location of the right kidney, which is normal in size. The right kidney measures 10.4x5 cm. There is a normal cortex of the right kidney. The renal cortex measures 1.2 cm. There is 9 mm right renal cyst. There are no right renal calculi. There is no right hydronephrosis. DISTAL RIGHT URETER: There is non-visualization of the distal right ureter. There is no demonstrated right ureterovesical junction calculus. There is no demonstrated right ureteral jet. LEFT KIDNEY: Normal location of the left kidney, which is normal in size. The left kidney measures 9.6x4.8 cm. There is a normal cortex of the left kidney. The renal cortex measures 1.7 cm. Cyst is 9mm. There are no left renal calculi. There is no left hydronephrosis. DISTAL LEFT URETER: There is non-visualization of the distal left ureter. There is no demonstrated left ureterovesical junction calculus. There is no demonstrated left ureteral jet. AORTA: There is obscuration of the abdominal aorta by overlying bowel gas I.V.C.: The IVC is obscured. BLADDER: The distended urinary bladder has a volume of 227 ml. The empty urinary bladder has a volume of 0 ml. There is a normal wall thickness of the distended urinary bladder. There is no demonstrated mass within the urinary bladder. There are no demonstrated bladder calculi. US/Kidney and Bladder IMPRESSION: There are hypodensities in both kidneys. These are consistent for cysts. No follow up required. Electronically Signed: Howie Oliva MD at 17:33 EST ,
[2022-04-08 09:50] LABS: Free T3 0.5 pg/mL (2.18-3.98); T4 Free Direct 1.03 ng/dL (0.76-1.46)
[2022-04-08 10:17] LABS: Vancomycin, Trough Level 23.5 ug/mL (5.0-15.0)
[2022-04-08] MEDS: Senna/Docusate Sodium 1 Tablet 2 TABLET PO ×2 (10:26→20:33)
--- NOTE | 2022-04-08 10:41 | PCM.RX.CS ---
Consult Type of Consult: Follow-up Suspected Infection: Pneumonia Labs: Sodium 139 mmol/L (136-145) 04/08/22 04:15 Potassium 4.4 mmol/L (3.5-5.1) 04/08/22 04:15 Chloride 111 mmol/L (98-107) H 04/08/22 04:15 Carbon Dioxide 22.0 mmol/L (21.0-32.0) 04/08/22 04:15 Anion Gap 6 (5-15) 04/08/22 04:15 BUN 49 mg/dL (7-18) H 04/08/22 04:15 Creatinine 1.21 mg/dL (0.55-1.02) H 04/08/22 04:15 Est GFR (MDRD) Af Amer 57 mL/min (>60) L 04/08/22 04:15 Est GFR (MDRD) Non-Af 48 mL/min (>60) L 04/08/22 04:15 BUN/Creatinine Ratio 40.5 RATIO (10-20) H 04/08/22 04:15 Glucose 305 mg/dL (74-106) H 04/08/22 04:15 Vancomycin Trough 23.5 ug/mL (5.0-15.0) H 04/08/22 09:45 Microbiology: Microbiology 04/06/22 20:35 Sputum, Tracheal Aspirate Gram Stain - Final 04/06/22 20:35 Sputum, Tracheal Aspirate Respiratory Culture - Preliminary Staphylococcus aureus 04/06/22 13:50 Urine Catheter - Bravo Urine Culture - Preliminary GNR lactose licensed mental health professional 04/06/22 21:40 Urine Catheter - Bravo Legionella Antigen - Final 04/06/22 21:40 Urine Catheter - Bravo Streptococcus pneumoniae Antigen (M - Final 04/06/22 14:50 Nasal Secretion SARS-CoV-2 & FLU Antigen (Rapid) - Final Goal Trough: 15-20 mcg/mL Pharmacy Plan for Drug Dosing: VANCOMYCIN LEVEL RECEIVED Current Vancomycin Dose: 1250mg Q12H Number of Doses Received: 3 Vancomycin Level: 23.5 Hours Since Last Dose: 10 Renal Function: sCr 1.21 mg/dL Renal Function Trend: worsened since 04/07/22 Vancomycin Plan/Comments: S/W RN to request current bag of Vancomycin be taken down, HOLD Vancomycin until level < 20 Pending Level: Random Vancomycin level @ 0600 04/09/22 Pharmacy Service will continue to monitor and adjust dosing as required. Labs to be done on [date and time ordered]: Random Vancomycin level @ 59904/09/22
[2022-04-08] MEDS: Metoprolol Tartrate 50 MG Tablet GT ×2 (11:10→20:32)
[2022-04-08 11:35] LABS: Bedside Glucose 279 mg/dL (74-106)
[2022-04-08] MEDS: Vital AF 1.2 Cal Liquid 1,000 ML 55 ML GT (11:44)
[2022-04-08] MEDS: Propofol 10MG/Ml 1,000 MG/100 ML Bottle 7 MG CONT INF ×2 (12:26→23:17)
--- NOTE | 2022-04-08 14:05 | PCM.CONS.R ---
Documented by User: SAMANTHA Ceballos 04/08/22 14:15 Assessment & Plan Assessment/Plan (1) KAY (acute kidney injury): (2) Acute and chronic respiratory failure, unspecified whether with hypoxia or hypercapnia: (3) Pneumonia: (4) Atrial fibrillation with rapid ventricular response: PLAN: Plan Consulted for acute kidney injury. In reviewing past creatinine trends patient has normal baseline creatinine of less than 1 mg/dL over the past few years. On 04/06 her creatinine was 1.3mg/dL, yesterday creatinine 1.10 mg/dL and today her creatinine is at 1.2 mg/dL. Patient is nonoliguric. Likely fluctuating creatinine from hemodynamics and possible ATN from sepsis. Patient is nonoliguric, urine output over a liter so far today. 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 Blood pressures are acceptable. UA essentially benign. On IV antibiotics, Zosyn, blood cultures pending. Urine culture E. coli. We will continue to monitor renal function closely along with you. HPI Consult Data Date of Consult: 04/08/22 HPI Narrative HPI Narrative: BOBBY FLORES, is a 66 F with past medical history significant for atrial fibrillation, hypertension, hypothyroidism, diabetes who was brought to the emergency room for change in mental status. Patient was hypoxic in the emergency room initially put on nonrebreather then BiPAP and now ultimately patient is on ventilator support. Information is gathered from the chart. Patient was admitted for acute on chronic respiratory failure pneumonia, sepsis, metabolic encephalopathy and KAY. We were consulted for KAY. Serum creatinine 1.3 mg/dL on admission, improved to 0.6 on 04/07 and today her creatinine is at 1.21 mg/dL. Patient has good urine output. [facility] Medical History Abdominal cramping Anemia Asthma Atrial fibrillation Bronchitis Chest pain Diabetes Former smoker GERD (gastroesophageal reflux disease) Hypertension Hyperthyroidism Irregular heart beat Lack of appetite Nausea On home oxygen therapy Pneumonia Rheumatoid arthritis Home Medications acetaminophen 500 mg tablet 1,000 mg PO Q6H PRN PAIN 01/30/19 [History Last Taken 04/06/22] gabapentin 100 mg capsule 200 mg PO BID NERVE PAIN 05/10/19 [History Last Taken 04/06/22] ipratropium 0.5 mg-albuterol 3 mg (2.5 mg base)/3 mL nebulization soln 3 ml inhalation Q6H.RT copd 05/10/19 [History Last Taken 09/10/20] ondansetron HCl 4 mg tablet (Zofran) 4 mg PO Q6H nausea #10 tabs 08/27/20 [Rx Last Taken 04/06/22] budesonide 0.5 mg/2 mL suspension for nebulization 0.5 mg inhalation BID sob 09/02/20 [History Last Taken 09/10/20] budesonide-formoterol HFA 160 mcg-4.5 mcg/actuation aerosol inhaler (Symbicort) 2 puff inhalation BID LUNGS 04/06/22 [History Last Taken 04/06/22] cholecalciferol (vitamin D3) 1,250 mcg (50,000 unit) capsule 50,000 unit PO QMONTH SUPPLEMENT 04/06/22 [History Last Taken Unknown] dextromethorphan-guaifenesin 30 mg-600 mg tablet extended qcdomdm45 hr (Mucinex DM) 1 tab PO Q12H CHEST CONGESTION 04/06/22 [History Last Taken 04/06/22] ferrous gluconate 324 mg (37.5 mg iron) tablet 324 mg PO BID SUPPLEMENT 04/06/22 [History Last Taken 03/31/22] gabapentin 400 mg capsule 400 mg PO TID NERVE PAIN 04/06/22 [History Last Taken 04/05/22] leflunomide 20 mg tablet 20 mg PO DAILY ARTHRITIS 04/06/22 [History Last Taken 04/06/22] metoprolol succinate 100 mg tablet,extended release 24 hr 100 mg PO DAILY HEART 04/06/22 [History Last Taken 04/06/22] omeprazole 40 mg capsule,delayed release 40 mg PO DAILY PRN REFLUX 04/06/22 [History Last Taken Unknown] rivaroxaban 20 mg tablet (Xarelto) 20 mg PO DAILY HEART 04/06/22 [History Last Taken 04/05/22] venlafaxine 37.5 mg capsule,extended release 24 hr 37.5 mg PO DAILY MOOD 04/06/22 [History Last Taken 04/05/22] verapamil 80 mg tablet 40 mg PO Q8 HEART 04/06/22 [History Last Taken 12/19/22] Allergy/AdvReac Type Severity Reaction Status Date / Time No Known Allergies Allergy Verified 09/02/20 16:24 Surgical History H/O: hysterectomy Social History household members: spouse Smoking Status: Former smoker substance use type: does not use ROS ROS Narrative Unable to obtain Physical Exam Narrative On vent S1, S2, rhythm irregular, rate controlled Lung sounds diminished Abdomen soft, positive bowel sounds, rounded No pitting edema Lab / Micro Data Result Diagrams: 04/08/22 04:15 04/08/22 04:15 Labs: Laboratory Results - last 24 hr 04/07/22 17:05: POC Glucose 190 H 04/08/22 00:00: POC Glucose 212 H 04/08/22 04:15: WBC 19.5 H, RBC 2.89 L, Hgb 8.9 L, Hct 30.3 L, MCV 104.8 H, MCH 30.8, MCHC 29.4 L, RDW Std Deviation 57.7 H, RDW Coeff of Lainey 15.2 H, Plt Count 245, MPV 10.0, Immature Gran % (Auto) 1.500 H, Neut % (Auto) 93.7 H, Lymph % (Auto) 2.1 L, [place] % (Auto) 2.3, Eos % (Auto) 0.0, Baso % (Auto) 0.4, Absolute Neuts (auto) 18.3 H, Absolute Lymphs (auto) 0.40 L, Nucleated RBC % 0.2, Differential Comment SCANNED 04/08/22 04:15: Sodium 139, Potassium 4.4, Chloride 111 H, Carbon Dioxide 22.0, Anion Gap 6, BUN 49 H, Creatinine 1.21 H, Estim Creat Clear Calc 45.68, Est GFR (MDRD) Af Amer 57 L, Est GFR (MDRD) Non-Af 48 L, BUN/Creatinine Ratio 40.5 H, Glucose 305 H, Calcium 6.9 L 04/08/22 04:15: Total Bilirubin 0.40, Direct Bilirubin 0.19, AST 22, ALT 9 L, Alkaline Phosphatase 128 H, Total Protein 5.7 L, Albumin 1.5 L, Globulin 4.2 04/08/22 04:15: Free T4 1.03, Free T3 pg/dL 0.5 L 04/08/22 05:03: POC Glucose 278 H 04/08/22 09:45: Vancomycin Trough 23.5 H 04/08/22 11:09: POC Glucose 279 H Micro: Microbiology 04/06/22 13:50 Urine Catheter - Bravo Urine Culture - Final Escherichia coli 04/06/22 20:35 Sputum, Tracheal Aspirate Gram Stain - Final 04/06/22 20:35 Sputum, Tracheal Aspirate Respiratory Culture - Preliminary Staphylococcus aureus ABG Data ABG results: ABG 04/08/22 05:59 Specimen Type ART Sample Site L Radial pH 7.26 L Bicarbonate Actual 19.1 L Total CO2 21 Base Excess -8 L O2 Saturation 91 L O2 % 30 ABG pCO2 42.7 ABG pO2 70 L Adán Test Positive O2 Delivery Device Adult Vent Vent Mode CPAP/PS POC PEEP 5 POC Pressure Suppt 5 Documented by User: Dr. Viviana Stein MD 04/08/22 15:03 Assessment & Plan Assessment/Plan (1) KAY (acute kidney injury): (2) Acute and chronic respiratory failure, unspecified whether with hypoxia or hypercapnia: (3) Pneumonia: (4) Atrial fibrillation with rapid ventricular response: PLAN: Plan Consulted for acute kidney injury. In reviewing past creatinine trends patient has normal baseline creatinine of less than 1 mg/dL over the past few years. On 04/06 her creatinine was 1.3mg/dL, yesterday creatinine 1.10 mg/dL and today her creatinine is at 1.2 mg/dL. Patient is nonoliguric. Likely fluctuating creatinine from hemodynamics and possible ATN from sepsis. Patient is nonoliguric, urine output over a liter so far today. 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 Blood pressures are acceptable. UA essentially benign. On IV antibiotics, Zosyn, blood cultures pending. Urine culture E. coli. We will continue to monitor renal function closely along with you. Attending addendum Patient was seen and examined independently. Acute renal failure. Baseline creatinine was normal around 0.6. Currently creatinine is around 1.2. Urine output is adequate. Urine analysis is not impressive. Blood gas consistent with acidosis initially respiratory, now some metabolic component. Lactate level was initially high, better. Blood pressure has improved. No acute indications for renal replacement therapy. Of note patient has history of bronchiectasis, extensive fibrotic changes as seen on previous CAT scans. HPI Consult Data Date of Consult: 04/08/22 [facility] Medical History Abdominal cramping Anemia Asthma Atrial fibrillation Bronchitis Chest pain Diabetes Former smoker GERD (gastroesophageal reflux disease) Hypertension Hyperthyroidism Irregular heart beat Lack of appetite Nausea On home oxygen therapy Pneumonia Rheumatoid arthritis Home Medications acetaminophen 500 mg tablet 1,000 mg PO Q6H PRN PAIN 01/30/19 [History Last Taken 04/06/22] gabapentin 100 mg capsule 200 mg PO BID NERVE PAIN 05/10/19 [History Last Taken 04/06/22] ipratropium 0.5 mg-albuterol 3 mg (2.5 mg base)/3 mL nebulization soln 3 ml inhalation Q6H.RT copd 05/10/19 [History Last Taken 09/10/20] ondansetron HCl 4 mg tablet (Zofran) 4 mg PO Q6H nausea #10 tabs 08/27/20 [Rx Last Taken 04/06/22] budesonide 0.5 mg/2 mL suspension for nebulization 0.5 mg inhalation BID sob 09/02/20 [History Last Taken 09/10/20] budesonide-formoterol HFA 160 mcg-4.5 mcg/actuation aerosol inhaler (Symbicort) 2 puff inhalation BID LUNGS 04/06/22 [History Last Taken 04/06/22] cholecalciferol (vitamin D3) 1,250 mcg (50,000 unit) capsule 50,000 unit PO QMONTH SUPPLEMENT 04/06/22 [History Last Taken Unknown] dextromethorphan-guaifenesin 30 mg-600 mg tablet extended qsbeitb80 hr (Mucinex DM) 1 tab PO Q12H CHEST CONGESTION 04/06/22 [History Last Taken 04/06/22] ferrous gluconate 324 mg (37.5 mg iron) tablet 324 mg PO BID SUPPLEMENT 04/06/22 [History Last Taken 03/31/22] gabapentin 400 mg capsule 400 mg PO TID NERVE PAIN 04/06/22 [History Last Taken 04/05/22] leflunomide 20 mg tablet 20 mg PO DAILY ARTHRITIS 04/06/22 [History Last Taken 04/06/22] metoprolol succinate 100 mg tablet,extended release 24 hr 100 mg PO DAILY HEART 04/06/22 [History Last Taken 04/06/22] omeprazole 40 mg capsule,delayed release 40 mg PO DAILY PRN REFLUX 04/06/22 [History Last Taken Unknown] rivaroxaban 20 mg tablet (Xarelto) 20 mg PO DAILY HEART 04/06/22 [History Last Taken 04/05/22] venlafaxine 37.5 mg capsule,extended release 24 hr 37.5 mg PO DAILY MOOD 04/06/22 [History Last Taken 04/05/22] verapamil 80 mg tablet 40 mg PO Q8 HEART 04/06/22 [History Last Taken 04/06/22] Allergy/AdvReac Type Severity Reaction Status Date / Time No Known Allergies Allergy Verified 09/02/20 16:24 Surgical History H/O: hysterectomy Social History household members: spouse Smoking Status: Former smoker substance use type: does not use Lab / Micro Data Result Diagrams: 04/08/22 04:15 04/08/22 04:15
[2022-04-08 18:00] LABS: Bedside Glucose 250 mg/dL (74-106)
[2022-04-09] VITALS (37 sets, daily range): BP systolic 88–161; BP diastolic 59–85; PULSE 102–137; RESP 12–29; TEMP 36.9–37.9; O2SAT 92–100
[2022-04-09] MEDS: Ipratropium/Albuterol Sulfate 3 ML AMPUL.NEB INHALATION ×3 (01:30→13:01)
[2022-04-09] MEDS: GUAIFENESIN 200 MG/10 ML PO ×6 (01:47→21:06)
[2022-04-09] MEDS: CMPD PO ×6 (01:47→21:06)
[2022-04-09] MEDS: Insulin Lispro 100 UNIT/ML INSULN.PEN SC ×5 (01:47→23:59)
[2022-04-09 01:51] LABS: Bedside Glucose 283 mg/dL (74-106)
[2022-04-09] MEDS: dilTIAZem 25 MG/5 ML Vial 10 MG IV BOLUS (02:55)
[2022-04-09] MEDS: CHLORHEXIDINE GLUC 2% CLOTH 1 EACH TOWELETTE TOPICAL (05:09)
[2022-04-09 05:35] LABS: Bedside Glucose 293 mg/dL (74-106)
[2022-04-09 06:13] LABS: Absolute Lymphocyte Count 0.55 X10^3/uL (0.83-4.51); Absolute Neutrophil Count 27.2 X10^3/uL (2.0-7.7); Basophil# 0.08 X10^3/uL; Basophil% 0.3 % (0-1); Hemoglobin 9.2 g/dL (12.0-15.0); Lymphocyte # 0.55 X10^3/ul (0.83-4.51); Lymphocyte % 1.9 % (19-41); Mean Corp Hgb Conc 29.7 g/dL (32-36); Mean Corpuscular Hgb 30.6 pg (27.0-32.0); Mean Platelet Vol. 10.6 fl (6.2-12.0); Monocyte# 0.75 X10^3/uL; Monocyte% 2.5 % (0-10); NRBC Flagged by Analyzer 1.1 % (0-5); Neutrophil # 27.19 X10^3/uL (2.7-7.7); Neutrophil % 91.5 % (47-70); POSITIVE DIFFERENTIAL YES; Platelet Count 288 K/mm3 (150-450); RBC Distribution Width CV 15.4 % (11.6-14.6); Red Blood Count 3.01 M/mm3 (4.2-5.4); White Blood Count 29.7 K/mm3 (4.4-11.0)
[2022-04-09 06:17] LABS: Differential Indicated SCAN CRITERIA MET
[2022-04-09 06:32] LABS: Vancomycin, Random Level 14.5 ug/mL (0.0-15.0)
[2022-04-09 06:34] LABS: ALB/GLOB Ratio 0.4 RATIO (0.9-2.4); AST(SGOT) 18 U/L (15-37); Alanine Aminotransfer ALT/SGPT 12 U/L (13-56); Albumin, Serum 1.7 g/dL (3.2-5.0); Alkaline Phosphatase 169 U/L (45-117); Anion Gap 6 (5-15); BUN 37 mg/dL (7-18); BUN/Creat Ratio 39.5 RATIO (10-20); Calcium,Total 7.5 mg/dL (8.5-10.1); Chloride 113 mmol/L (98-107); Creatinine, Serum 0.94 mg/dL (0.55-1.02); EST Glomerular Filtration Rate 64 mL/min (>60); Est Glom Filt Rate - Afr Amer 77 mL/min (>60); Globulin 4.4 g/dL (2.2-4.2); Glucose 303 mg/dL (74-106); Potassium 4.2 mmol/L (3.5-5.1); Protein, Total 6.1 g/dL (6.4-8.2); Sodium Level 142 mmol/L (136-145)
--- NOTE | 2022-04-09 06:39 | PCM.RX.CS ---
Consult Pharmacy has been consulted to manage selected antiobiotic: Vancomycin Type of Consult: Follow-up Prior Doses of Antibiotics Received/Current Regimen: Medications Vancomycin HCl 750 mg/ Sodium (Chloride) 265 mls @ 250 mls/hr IV Q12H ELENA Discontinued Medications Vancomycin HCl 1,250 mg/ (Sodium Chloride) 275 mls @ 167 mls/hr IV Q12H ELENA Last Admin: 04/08/22 10:41 Dose: Infused Labs: Sodium 142 mmol/L (136-145) 04/09/22 06:05 Potassium 4.2 mmol/L (3.5-5.1) 04/09/22 06:05 Chloride 113 mmol/L (98-107) H 04/09/22 06:05 Carbon Dioxide 23.0 mmol/L (21.0-32.0) 04/09/22 06:05 Anion Gap 6 (5-15) 04/09/22 06:05 BUN 37 mg/dL (7-18) H 04/09/22 06:05 Creatinine 0.94 mg/dL (0.55-1.02) 04/09/22 06:05 Est GFR (MDRD) Af Amer 77 mL/min (>60) 04/09/22 06:05 Est GFR (MDRD) Non-Af 64 mL/min (>60) 04/09/22 06:05 BUN/Creatinine Ratio 39.5 RATIO (10-20) H 04/09/22 06:05 Glucose 303 mg/dL (74-106) H 04/09/22 06:05 Vancomycin Trough 23.5 ug/mL (5.0-15.0) H 04/08/22 09:45 Random Vancomycin 14.5 ug/mL (0.0-15.0) 04/09/22 06:05 Microbiology: Microbiology 04/06/22 13:50 Urine Catheter - Bravo Urine Culture - Final Escherichia coli 04/06/22 20:35 Sputum, Tracheal Aspirate Gram Stain - Final 04/06/22 20:35 Sputum, Tracheal Aspirate Respiratory Culture - Preliminary Staphylococcus aureus 04/06/22 21:40 Urine Catheter - Bravo Legionella Antigen - Final 04/06/22 21:40 Urine Catheter - Bravo Streptococcus pneumoniae Antigen (M - Final 04/06/22 14:50 Nasal Secretion SARS-CoV-2 & FLU Antigen (Rapid) - Final Weight used for dosin.1 kg Estimated Creatinine Clearance: 59 Goal Trough: 15-20 mcg/mL Pharmacy Plan for Drug Dosing: The random vancomycin level drawn 04/09/22 @0605 was 14.5. Dosing for vanco will be re-started at 750mg q12h, and a trough level will be drawn prior to fourth dose. Pharmacy Service will continue to monitor and adjust dosing as required. Follow-Up Labs: Trough Vancomycin Labs to be done on [date and time ordered]: 04/10/22 @1939
[2022-04-09 06:49] LABS: Differential Comment SCANNED
[2022-04-09] MEDS: Metoprolol Tartrate 5 MG/5 ML Vial IV (07:01)
[2022-04-09] MEDS: Vital AF 1.2 Cal Liquid 1,000 ML 55 ML GT (07:02)
--- NOTE | 2022-04-09 07:41 | PN.CC_ITS ---
Assessment & Plan Assessment/Plan (1) Acute and chronic respiratory failure, unspecified whether with hypoxia or hypercapnia: (2) Chronic atrial fibrillation with rapid ventricular response: (3) Bronchiectasis: QUALIFIERS: Bronchiectasis type: uncomplicated Qualified Code(s): J47.9 - Bronchiectasis, uncomplicated (4) Pneumonia: PLAN: Plan RECOMMENDATIONS: 1. Continue mechanical ventilation at current settings. SBT/SAT per protocol 2. Consider infectious disease consult 3. Increase metoprolol 4. Agree with bronchodilators, steroids and mucolytic 5. Okay to hold off on heparin drip IMPRESSIONS: 1. Acute on chronic combined respiratory failure secondary to bilateral pneumonia Patient with significant leukocytosis, acute kidney injury and failure to respond to BiPAP therapy. ABG this morning shows adequate oxygenation and ventilation on current settings. Spontaneous breathing and awakening trials per protocol. Patient did have a trial this morning, but still has significant tachycardia. Patient appears to be growing gram-negative's in the urine and MRSA in the sputum. 2. Acute kidney injury secondary to sepsis secondary to pneumonia Patient with leukocytosis, acute kidney injury, tachycardia and tachypnea. Endorgan damage indicated by acute kidney injury and metabolic encephalopathy. Patient's blood pressures have been marginal at this time. Need for pressors is decreasing with continued antibiotics. Patient may need a central line to facilitate pressors. Renal function appears to have responded well to hemodynamic support 3. Metabolic encephalopathy Clinical suspicion for CO2 narcosis. Patient has had significant improvement after initiation of mechanical ventilation. Patient is on propofol and fentanyl. Agree with holding gabapentin. 4. A. fib with RVR Patient anticoagulated and on rate control at baseline. Likely not appropriate to continue metoprolol given marginal blood pressures given problems #1 and 2. If renal function not improved by tomorrow, we will have to transition to a heparin drip 5. Anemia/hypertension/debility/bronchiectasis/rheumatoid lung disease Complicates care, management, recovery and prognosis. No indication for transfusions at this time. 6. Nonanion gap metabolic acidosis secondary to hyperchloremia Likely secondary to volume resuscitation. Avoid normal saline for now. Will likely improve on its own with lack of chloride infusion and normalization of renal function. Okay to start tube feeds and discontinue IV fluids. TIME: 36 minutes critical care time spent addressing patient's respiratory failure, acute kidney injury, metabolic encephalopathy, sepsis, A. fib with RVR, review of all data and collaboration with care team Subjective Subjective Patient did okay overnight. Patient still having copious secretions, but fever curve has improved. Patient was able to have a spontaneous breathing trial this morning, but failed secondary to tachycardia. Patient was initiated on tube feeds and is tolerating at this time. Objective Data Objective Data Vital Signs: Vital Signs Temp Pulse Resp BP Pulse Ox O2 Del Method O2 Flow Rate 37.9 C H 125 H 14 111/75 99 Mechanical Ventilator 2 04/09/22 07:00 04/09/22 07:01 04/09/22 07:00 04/09/22 07:00 04/09/22 07:00 04/09/22 07:00 04/08/22 13:00 FiO2 30 04/09/22 07:00 Oxygen Flow Rate (L/min) 2 Oxygen Delivery Method Mechanical Ventilator Weight: 81.102 kg Body Mass Index (BMI) 26.6 Intake & Output: Intake and Output for Last 24 Hours 04/07/22 04/08/22 04/09/22 23:59 23:59 23:59 Intake Total 2549.96 / 2605.89 2092.37 / 2227.39 1442.21 / 1442.21 Output Total 1250 / 1600 2225 / 2225 550 / 550 Balance 1299.96 / 1005.89 -132.63 / 2.39 892.21 / 892.21 Lab / Micro Data Attestation: I reviewed the patient's lab results. Result Diagrams: 04/09/22 06:05 04/09/22 06:05 Labs: Laboratory Results - last 24 hr 04/08/22 04:15: Total Bilirubin 0.40, Direct Bilirubin 0.19, AST 22, ALT 9 L, Alkaline Phosphatase 128 H, Total Protein 5.7 L, Albumin 1.5 L, Globulin 4.2 04/08/22 04:15: Free T4 1.03, Free T3 pg/dL 0.5 L 04/08/22 09:45: Vancomycin Trough 23.5 H 04/08/22 11:09: POC Glucose 279 H 04/08/22 17:36: POC Glucose 250 H 04/09/22 01:32: POC Glucose 283 H 04/09/22 05:13: POC Glucose 293 H 04/09/22 06:05: WBC 29.7 H, RBC 3.01 L, Hgb 9.2 L, Hct 31.0 L, MCV 103.0 H, MCH 30.6, MCHC 29.7 L, RDW Std Deviation 57.0 H, RDW Coeff of Lainey 15.4 H, Plt Count 288, MPV 10.6, Immature Gran % (Auto) 3.800 H, Neut % (Auto) 91.5 H, Lymph % (Auto) 1.9 L, [place] % (Auto) 2.5, Eos % (Auto) 0.0, Baso % (Auto) 0.3, Absolute Neuts (auto) 27.2 H, Absolute Lymphs (auto) 0.55 L, Nucleated RBC % 1.1, Differential Comment SCANNED 04/09/22 06:05: Sodium 142, Potassium 4.2, Chloride 113 H, Carbon Dioxide 23.0, Anion Gap 6, BUN 37 H, Creatinine 0.94, Estim Creat Clear Calc 58.80, Est GFR (MDRD) Af Amer 77, Est GFR (MDRD) Non-Af 64, BUN/Creatinine Ratio 39.5 H, Glucose 303 H, Calcium 7.5 L, Total Bilirubin 0.30, AST 18, ALT 12 L, Alkaline Phosphatase 169 H, Total Protein 6.1 L, Albumin 1.7 L, Globulin 4.4 H, Albumin/ Globulin Ratio 0.4 L 04/09/22 06:05: Random Vancomycin 14.5 Micro: Microbiology 04/06/22 20:35 Sputum, Tracheal Aspirate Gram Stain - Final 04/06/22 20:35 Sputum, Tracheal Aspirate Respiratory Culture - Final Meth. resistant Staph. aureus 04/06/22 13:50 Urine Catheter - Bravo Urine Culture - Final Escherichia coli 04/06/22 21:40 Urine Catheter - Bravo Legionella Antigen - Final 04/06/22 21:40 Urine Catheter - Bravo Streptococcus pneumoniae Antigen (M - Final 04/06/22 14:50 Nasal Secretion SARS-CoV-2 & FLU Antigen (Rapid) - Final Radiography Diagnostic Testing: Radiology Impression Renal Ultrasound 04/08/22 09:32 IMPRESSION: There are hypodensities in both kidneys. These are consistent for cysts. No follow up required. Electronically Signed: Howie Oliva MD at 17:33 EST , Rhythm Strip Rhythm Strip: A-fib Rate: 135 Physical Exam Const Constitutional Narrative: RASS -2. Good ventilator synchrony General Appearance: lethargic and patient mechanically ventilated HEENT normocephalic, head/scalp atraumatic and moist oral mucous membranes Eyes PERRL, EOMs intact bilaterally and conjunctivae normal Eyes Narrative: No icterus Neck no lymphadenopathy and no JVD Resp Auscultation: rhonchi throughout and diminished lung sounds; Negative for rales or wheezes Cardio S1 normal heart sound, S2 normal heart sound, no murmurs, no rub and no gallops Rate: tachycardic Rhythm: abnormal rhythm irregularly irregular GI normal to inspection, nondistended, normoactive bowel sounds, soft to palpation, non-tender and non-distended Extremity normal to inspection and full ROM General Extremity: edema Neuro moves all extremities and no focal motor deficits Psych Mood & Affect: flat affect Charges/Coding Procedures Hospitalists Procedures: [id number] Critial Care 1st Hr
[2022-04-09] MEDS: Propofol 10MG/Ml 1,000 MG/100 ML Bottle 11.6999999999999993 MG CONT INF (08:59)
[2022-04-09] MEDS: TITRATION PARAMETER CHANGE 1 EACH IV (08:59)
--- NOTE | 2022-04-09 09:17 | PN.HOSP_ITS ---
Subjective Subjective Follow-up on acute respiratory failure/pneumonia/KAY: Patient was seen and examined.?Remains febrile and tachycardic. Sputum cultures growing MRSA. Urine cultures growing E. coli. Blood cultures are pending. Objective Data Objective Data Vital Signs: Vital Signs Temp Pulse Resp BP Pulse Ox O2 Del Method O2 Flow Rate 100.2 F H 125 H 14 111/75 99 Mechanical Ventilator 2 04/09/22 07:00 04/09/22 07:01 04/09/22 07:00 04/09/22 07:00 04/09/22 07:00 04/09/22 07:00 04/08/22 13:00 FiO2 30 04/09/22 07:00 Oxygen Flow Rate (L/min) 2 Oxygen Delivery Method Mechanical Ventilator Weight: 81.102 kg Body Mass Index (BMI) 26.6 Intake & Output: Intake and Output for Last 24 Hours 04/07/22 04/08/22 04/09/22 23:59 23:59 23:59 Intake Total 2549.96 / 2605.89 2092.37 / 2227.39 1459.56 / 1459.56 Output Total 1250 / 1600 2225 / 2225 550 / 550 Balance 1299.96 / 1005.89 -132.63 / 2.39 909.56 / 909.56 Lab / Micro Data Result Diagrams: 04/09/22 06:05 04/09/22 06:05 Labs: Laboratory Results - last 24 hr 04/08/22 04:15: Free T4 1.03, Free T3 pg/dL 0.5 L 04/08/22 09:45: Vancomycin Trough 23.5 H 04/08/22 11:09: POC Glucose 279 H 04/08/22 17:36: POC Glucose 250 H 04/09/22 01:32: POC Glucose 283 H 04/09/22 05:13: POC Glucose 293 H 04/09/22 06:05: WBC 29.7 H, RBC 3.01 L, Hgb 9.2 L, Hct 31.0 L, MCV 103.0 H, MCH 30.6, MCHC 29.7 L, RDW Std Deviation 57.0 H, RDW Coeff of Lainey 15.4 H, Plt Count 288, MPV 10.6, Immature Gran % (Auto) 3.800 H, Neut % (Auto) 91.5 H, Lymph % (Auto) 1.9 L, [place] % (Auto) 2.5, Eos % (Auto) 0.0, Baso % (Auto) 0.3, Absolute Neuts (auto) 27.2 H, Absolute Lymphs (auto) 0.55 L, Nucleated RBC % 1.1, Differential Comment SCANNED 04/09/22 06:05: Sodium 142, Potassium 4.2, Chloride 113 H, Carbon Dioxide 23.0, Anion Gap 6, BUN 37 H, Creatinine 0.94, Estim Creat Clear Calc 58.80, Est GFR (MDRD) Af Amer 77, Est GFR (MDRD) Non-Af 64, BUN/Creatinine Ratio 39.5 H, Glucose 303 H, Calcium 7.5 L, Total Bilirubin 0.30, AST 18, ALT 12 L, Alkaline Phosphatase 169 H, Total Protein 6.1 L, Albumin 1.7 L, Globulin 4.4 H, Albumin/Globulin Ratio 0.4 L 04/09/22 06:05: Random Vancomycin 14.5 Micro: Microbiology 04/06/22 20:35 Sputum, Tracheal Aspirate Gram Stain - Final 04/06/22 20:35 Sputum, Tracheal Aspirate Respiratory Culture - Final Meth. resistant Staph. aureus 04/06/22 13:50 Urine Catheter - Bravo Urine Culture - Final Escherichia coli 04/06/22 21:40 Urine Catheter - Bravo Legionella Antigen - Final 04/06/22 21:40 Urine Catheter - Bravo Streptococcus pneumoniae Antigen (M - Final 04/06/22 14:50 Nasal Secretion SARS-CoV-2 & FLU Antigen (Rapid) - Final Radiography Diagnostic Testing: Radiology Impression Renal Ultrasound 04/08/22 09:32 IMPRESSION: There are hypodensities in both kidneys. These are consistent for cysts. No follow up required. Electronically Signed: Howie Oliva MD at 17:33 EST , Rhythm Strip Rhythm Strip: A-fib Rate: 135 Physical Exam Narrative Physical exam: General: Sedated, intubated, on mechanical ventilator HEENT: Atraumatic Oral: Moist Mucosa Neck: Supple Lungs: Diminished to auscultation Cardiovascular: HS I+II, regular, no murmurs Abdomen: Bowel Sounds Present, Soft, Non Tender Extremities: Bilateral pedal edema, trace Skin: No rashes, No breakdown Neurological: Grossly intact Psych/Mental Status: Appropriate Assessment & Plan Assessment/Plan (1) Acute and chronic respiratory failure, unspecified whether with hypoxia or hypercapnia: (2) Pneumonia: (3) Respiratory acidosis: PLAN: Plan 1. Acute on chronic combined respiratory failure secondary to MRSA pneumonia/acute COPD/bronchiectasis exacerbation/probable Acute: UTI. Status post intubation, remains on mechanical ventilator Urine legionella and streptococcal antigen is negative. Sputum growing staph aureus, blood cultures are pending Continue IV Solu-Medrol, IV vancomycin and Zosyn Glass Forming Engineer following, follow-up on recommendations 2. Hypertension, blood pressure has been improved, resumed on metoprolol We will continue to monitor 3. Chronic atrial fibrillation, slight improvement in heart rate, on metoprolol 100 mg p.o. daily Continue to hold verapamil Continue on Xarelto 4. Anemia, hemoglobin is 9.2. Reticulocyte count is elevated TSH is low at 0.10, vitamin B12 and folate are normal Will trend labs 5. KAY, likely prerenal from #1, creatinine today is 0.94, improved from 1.21 yesterday Kidney and bladder ultrasound shows hypodensities in both kidneys Nephrology following 6. Sick euthyroid syndrome, labs and to repeat on patient recovered 7. Rheumatoid arthritis, will continue to hold leflunomide for now 6. DVT PPx-on Xarelto Charges/Coding Visit Charges Inpatient E&M: 54769 Subs Hosp L3
[2022-04-09] MEDS: Rivaroxaban 20 MG Tablet PO (09:43)
[2022-04-09] MEDS: Senna/Docusate Sodium 1 Tablet 2 TABLET PO (09:43)
[2022-04-09] MEDS: Chlorhexidine 15 ML PO ×2 (09:47→22:13)
[2022-04-09] MEDS: Metoprolol Tartrate 100 MG Tablet GT ×2 (09:47→21:12)
--- NOTE | 2022-04-09 10:18 | PN.RENAL_ITS ---
Subjective Subjective On vent, no overnight events Objective Data Objective Data Vital Signs: Vital Signs Temp Pulse Resp BP Pulse Ox O2 Del Method O2 Flow Rate 100.2 F H 116 H 14 100/62 99 Mechanical Ventilator 2 04/09/22 07:00 04/09/22 09:47 04/09/22 07:00 04/09/22 09:47 04/09/22 07:00 04/09/22 07:00 04/08/22 13:00 FiO2 30 04/09/22 07:00 Oxygen Flow Rate (L/min) 2 Oxygen Delivery Method Mechanical Ventilator Weight: 81.102 kg Body Mass Index (BMI) 26.6 Intake & Output: Intake and Output for Last 24 Hours 04/07/22 04/08/22 04/09/22 23:59 23:59 23:59 Intake Total 2549.96 / 2605.89 2092.37 / 2227.39 1884.56 / 1884.56 Output Total 1250 / 1600 2225 / 2225 550 / 550 Balance 1299.96 / 1005.89 -132.63 / 2.39 1334.56 / 1334.56 Lab / Micro Data Result Diagrams: 04/09/22 06:05 04/09/22 06:05 Labs: Laboratory Results - last 24 hr 04/08/22 11:09: POC Glucose 279 H 04/08/22 17:36: POC Glucose 250 H 04/09/22 01:32: POC Glucose 283 H 04/09/22 05:13: POC Glucose 293 H 04/09/22 06:05: WBC 29.7 H, RBC 3.01 L, Hgb 9.2 L, Hct 31.0 L, MCV 103.0 H, MCH 30.6, MCHC 29.7 L, RDW Std Deviation 57.0 H, RDW Coeff of Lainey 15.4 H, Plt Count 288, MPV 10.6, Immature Gran % (Auto) 3.800 H, Neut % (Auto) 91.5 H, Lymph % (Auto) 1.9 L, [place] % (Auto) 2.5, Eos % (Auto) 0.0, Baso % (Auto) 0.3, Absolute Neuts (auto) 27.2 H, Absolute Lymphs (auto) 0.55 L, Nucleated RBC % 1.1, Differential Comment SCANNED 04/09/22 06:05: Sodium 142, Potassium 4.2, Chloride 113 H, Carbon Dioxide 23.0, Anion Gap 6, BUN 37 H, Creatinine 0.94, Estim Creat Clear Calc 58.80, Est GFR (MDRD) Af Amer 77, Est GFR (MDRD) Non-Af 64, BUN/Creatinine Ratio 39.5 H, Glucose 303 H, Calcium 7.5 L, Total Bilirubin 0.30, AST 18, ALT 12 L, Alkaline Phosphatase 169 H, Total Protein 6.1 L, Albumin 1.7 L, Globulin 4.4 H, Albumin/Globulin Ratio 0.4 L 04/09/22 06:05: Random Vancomycin 14.5 Micro: Microbiology 04/06/22 20:35 Sputum, Tracheal Aspirate Gram Stain - Final 04/06/22 20:35 Sputum, Tracheal Aspirate Respiratory Culture - Final Meth. resistant Staph. aureus 04/06/22 13:50 Urine Catheter - Bravo Urine Culture - Final Escherichia coli 04/06/22 21:40 Urine Catheter - Bravo Legionella Antigen - Final 04/06/22 21:40 Urine Catheter - Bravo Streptococcus pneumoniae Antigen (M - Final 04/06/22 14:50 Nasal Secretion SARS-CoV-2 & FLU Antigen (Rapid) - Final Radiography Diagnostic Testing: Radiology Impression Renal Ultrasound 04/08/22 09:32 IMPRESSION: There are hypodensities in both kidneys. These are consistent for cysts. No follow up required. Electronically Signed: Howie Oliva MD at 17:33 EST Reading Location ID and State: [facility] - [place] / [place] , Service support , Rhythm Strip Rhythm Strip: A-fib Rate: 135 Physical Exam Narrative On vent S1, S2, rhythm irregular, rate controlled Lung sounds diminished Abdomen soft, positive bowel sounds, rounded No pitting edema Assessment & Plan Assessment/Plan (1) KAY (acute kidney injury): (2) Acute and chronic respiratory failure, unspecified whether with hypoxia or hypercapnia: (3) Pneumonia: (4) Atrial fibrillation with rapid ventricular response: PLAN: Plan Overall renal function stable and improved. Likely fluctuating serum creatinine from hemodynamic instability. In reviewing past creatinine trends patient has normal baseline creatinine of less than 1 mg/dL over the past few years. On 04/06 her creatinine was 1.3mg/dL, yesterday creatinine is at 1.2 mg/dL and today her creatinine is 0.94 mg/dL. Bicarb normal today. No hyperkalemia. Patient is nonoliguric. 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 UA essentially benign. Blood pressures acceptable, not requiring pressor support. On IV antibiotics, Zosyn/Vanco, blood cultures pending. Urine culture E. coli. Patient has history of bronchiectasis, extensive fibrotic changes as seen on previous CAT scans.
[2022-04-09] MEDS: Polyethylene Glycol 3350 17 GM PACKET PO (11:28)
[2022-04-09] MEDS: Insulin Glargine-YFGN 100 UNIT/ML Pen 10 UNIT SC (11:28)
[2022-04-09 12:00] LABS: Bedside Glucose 283 mg/dL (74-106)
[2022-04-09] MEDS: Propofol 10MG/Ml 1,000 MG/100 ML Bottle 12.1999999999999993 MG CONT INF ×2 (15:57→21:12)
[2022-04-09 19:06] LABS: Bedside Glucose 308 mg/dL (74-106)
[2022-04-10] VITALS (37 sets, daily range): BP systolic 75–157; BP diastolic 50–107; PULSE 82–143; RESP 12–22; TEMP 36.5–38.7; O2SAT 90–100
[2022-04-10 00:25] LABS: Bedside Glucose 264 mg/dL (74-106)
[2022-04-10] MEDS: GUAIFENESIN 200 MG/10 ML PO ×3 (01:13→08:13)
[2022-04-10] MEDS: Vital AF 1.2 Cal Liquid 1,000 ML 55 ML GT ×2 (01:13→21:14)
[2022-04-10] MEDS: CMPD PO ×3 (01:13→08:13)
[2022-04-10] MEDS: Ipratropium/Albuterol Sulfate 3 ML AMPUL.NEB INHALATION (01:24)
[2022-04-10 03:51] LABS: Absolute Lymphocyte Count 0.36 X10^3/uL (0.83-4.51); Absolute Neutrophil Count 17.9 X10^3/uL (2.0-7.7); Basophil# 0.04 X10^3/uL; Basophil% 0.2 % (0-1); Hematocrit 29.6 % (37-47); Hemoglobin 8.8 g/dL (12.0-15.0); Lymphocyte # 0.36 X10^3/ul (0.83-4.51); Lymphocyte % 1.8 % (19-41); Mean Corp Hgb Conc 29.7 g/dL (32-36); Mean Corpuscular Hgb 30.4 pg (27.0-32.0); Mean Corpuscular Volume 102.4 fL (81-99); Mean Platelet Vol. 10.8 fl (6.2-12.0); Monocyte# 0.49 X10^3/uL; Monocyte% 2.5 % (0-10); NRBC Flagged by Analyzer 1.6 % (0-5); Neutrophil # 17.92 X10^3/uL (2.7-7.7); Neutrophil % 90.8 % (47-70); POSITIVE DIFFERENTIAL YES; Platelet Count 225 K/mm3 (150-450); RBC Distribution Width CV 15.4 % (11.6-14.6); RBC Distribution Width SD 57.6 fl (35.1-43.9); Red Blood Count 2.89 M/mm3 (4.2-5.4); White Blood Count 19.7 K/mm3 (4.4-11.0)
[2022-04-10 04:01] LABS: Differential Indicated SCAN CRITERIA MET
[2022-04-10 04:06] LABS: ALB/GLOB Ratio 0.4 RATIO (0.9-2.4); AST(SGOT) 12 U/L (15-37); Alanine Aminotransfer ALT/SGPT 12 U/L (13-56); Albumin, Serum 1.7 g/dL (3.2-5.0); Alkaline Phosphatase 139 U/L (45-117); BUN 37 mg/dL (7-18); BUN/Creat Ratio 42.9 RATIO (10-20); Chloride 115 mmol/L (98-107); Creatinine, Serum 0.86 mg/dL (0.55-1.02); EST Glomerular Filtration Rate 70 mL/min (>60); Est Glom Filt Rate - Afr Amer 85 mL/min (>60); Estimated Creatinine Clearance 64.27 ml/min; Globulin 3.9 g/dL (2.2-4.2); Glucose 348 mg/dL (74-106); Potassium 4.1 mmol/L (3.5-5.1); Protein, Total 5.6 g/dL (6.4-8.2); Sodium Level 144 mmol/L (136-145)
[2022-04-10 04:07] LABS: Anion Gap 7 (5-15)
[2022-04-10] MEDS: Propofol 10MG/Ml 1,000 MG/100 ML Bottle 12.1999999999999993 MG CONT INF ×3 (04:38→18:56)
[2022-04-10 04:43] LABS: Differential Comment SCANNED
[2022-04-10] MEDS: Insulin Lispro 100 UNIT/ML INSULN.PEN SC ×4 (05:51→23:50)
[2022-04-10 06:11] LABS: Bedside Glucose 339 mg/dL (74-106)
[2022-04-10] MEDS: TITRATION PARAMETER CHANGE 1 EACH IV (07:01)
--- NOTE | 2022-04-10 07:35 | PCM.PN.INT ---
Assessment & Plan Assessment/Plan (1) Acute and chronic respiratory failure, unspecified whether with hypoxia or hypercapnia: (2) Chronic atrial fibrillation with rapid ventricular response: (3) Bronchiectasis: QUALIFIERS: Bronchiectasis type: uncomplicated Qualified Code(s): J47.9 - Bronchiectasis, uncomplicated (4) Pneumonia: PLAN: Plan RECOMMENDATIONS: 1. Continue mechanical ventilation at current settings. SBT/SAT per protocol 2. Consult cardiology for refractory A. fib with RVR 3. Increase metoprolol. Challenge with diuretics 4. Agree with bronchodilators, steroids and mucolytic 5. Possibly transition to Precedex tomorrow given improved fever curve IMPRESSIONS: 1. Acute on chronic combined respiratory failure secondary to bilateral pneumonia Patient with significant leukocytosis, acute kidney injury and failure to respond to BiPAP therapy. ABG on current settings shows adequate oxygenation and ventilation on current settings. Spontaneous breathing and awakening trials per protocol. Patient did have a trial this morning, but still has significant tachycardia and desaturation. Patient appears to be growing E. coli in the urine and MRSA in the sputum. Possibly transition to Precedex tomorrow to facilitate spontaneous breathing. Patient will be given diuretics as she was significantly positive over the last 24 hours. 2. Acute kidney injury secondary to sepsis secondary to pneumonia Patient with leukocytosis, acute kidney injury, tachycardia and tachypnea. Endorgan damage indicated by acute kidney injury and metabolic encephalopathy. Patient's blood pressures have been marginal at this time. Need for pressors is decreasing with continued antibiotics. Patient may need a central line to facilitate pressors. Renal function appears to have responded well to hemodynamic support 3. Metabolic encephalopathy Clinical suspicion for CO2 narcosis. Patient has had significant improvement after initiation of mechanical ventilation. Patient is on propofol and fentanyl. Agree with holding gabapentin. Possibly transition to Precedex in the next 24 hours 4. A. fib with RVR Patient anticoagulated and on rate control at baseline. Likely not appropriate to continue metoprolol given marginal blood pressures given problems #1 and 2. Recommend cardiology consultation for recommendations 5. Anemia/hypertension/debility/bronchiectasis/rheumatoid lung disease Complicates care, management, recovery and prognosis. No indication for transfusions at this time. 6. Nonanion gap metabolic acidosis secondary to hyperchloremia Resolved. Likely secondary to volume resuscitation. Avoid normal saline for now. Continue tube feeds. Bowel regimen has been ordered TIME: 32 minutes critical care time spent addressing patient's respiratory failure, acute kidney injury, metabolic encephalopathy, sepsis, A. fib with RVR, review of all data and collaboration with care team Subjective Subjective Patient did okay overnight from a hemodynamic standpoint. Patient did have a bowel movement and has been tolerating tube feeds. Patient has been tachycardic throughout the evening despite increased metoprolol. Blood pressures have been maintained. Patient did have tachypnea and desaturation associated with spontaneous breathing trial after 30 minutes. Objective Data Objective Data Vital Signs: Vital Signs Temp Pulse Resp BP Pulse Ox O2 Del Method O2 Flow Rate 37.7 C H 130 H 22 H 135/76 H 90 Mechanical Ventilator 2 04/10/22 07:00 04/10/22 07:08 04/10/22 07:08 04/10/22 07:00 04/10/22 07:08 04/10/22 07:00 04/08/22 13:00 FiO2 25 04/10/22 07:08 Oxygen Flow Rate (L/min) 2 Oxygen Delivery Method Mechanical Ventilator Weight: 81.42 kg Body Mass Index (BMI) 26.6 Intake & Output: Intake and Output for Last 24 Hours 04/08/22 04/09/22 04/10/22 23:59 23:59 23:59 Intake Total 2092.37 / 2227.39 4821.56 / 4966.26 1602.05 / 1602.05 Output Total 2225 / 2225 1475 / 1475 300 / 300 Balance -132.63 / 2.39 3346.56 / 3491.26 1302.05 / 1302.05 Lab / Micro Data Attestation: I reviewed the patient's lab results. Result Diagrams: 04/10/22 03:45 04/10/22 03:45 Labs: Laboratory Results - last 24 hr 04/09/22 11:24: POC Glucose 283 H 04/09/22 18:14: POC Glucose 308 H 04/09/22 23:59: POC Glucose 264 H 04/10/22 03:45: WBC 19.7 H, RBC 2.89 L, Hgb 8.8 L, Hct 29.6 L, MCV 102.4 H, MCH 30.4, MCHC 29.7 L, RDW Std Deviation 57.6 H, RDW Coeff of Lainey 15.4 H, Plt Count 225, MPV 10.8, Immature Gran % (Auto) 4.700 H, Neut % (Auto) 90.8 H, Lymph % (Auto) 1.8 L, [place] % (Auto) 2.5, Eos % (Auto) 0.0, Baso % (Auto) 0.2, Absolute Neuts (auto) 17.9 H, Absolute Lymphs (auto) 0.36 L, Nucleated RBC % 1.6, Differential Comment SCANNED 04/10/22 03:45: Sodium 144, Potassium 4.1, Chloride 115 H, Carbon Dioxide 22.0, Anion Gap 7, BUN 37 H, Creatinine 0.86, Estim Creat Clear Calc 64.27, Est GFR (MDRD) Af Amer 85, Est GFR (MDRD) Non-Af 70, BUN/Creatinine Ratio 42.9 H, Glucose 348 H, Calcium 7.0 L, Total Bilirubin 0.30, AST 12 L, ALT 12 L, Alkaline Phosphatase 139 H, Total Protein 5.6 L, Albumin 1.7 L, Globulin 3.9, Albumin/Globulin Ratio 0.4 L 04/10/22 05:51: POC Glucose 339 H Micro: Microbiology 04/06/22 20:35 Sputum, Tracheal Aspirate Gram Stain - Final 04/06/22 20:35 Sputum, Tracheal Aspirate Respiratory Culture - Final Meth. resistant Staph. aureus 04/06/22 13:50 Urine Catheter - Bravo Urine Culture - Final Escherichia coli 04/06/22 21:40 Urine Catheter - Bravo Legionella Antigen - Final 04/06/22 21:40 Urine Catheter - Bravo Streptococcus pneumoniae Antigen (M - Final 04/06/22 14:50 Nasal Secretion SARS-CoV-2 & FLU Antigen (Rapid) - Final Rhythm Strip Rhythm Strip: A-fib Rate: 130 Physical Exam Const Constitutional Narrative: RASS -2. Good ventilator synchrony General Appearance: patient mechanically ventilated HEENT normocephalic, head/scalp atraumatic and moist oral mucous membranes Eyes PERRL, EOMs intact bilaterally and conjunctivae normal Eyes Narrative: No icterus Neck no lymphadenopathy, supple and no JVD Resp Auscultation: rhonchi throughout and diminished lung sounds; Negative for rales or wheezes Cardio S1 normal heart sound, S2 normal heart sound, no murmurs, no rub and no gallops Rate: tachycardic Rhythm: abnormal rhythm irregularly irregular GI normal to inspection, nondistended, normoactive bowel sounds, soft to palpation, non-tender and non-distended Extremity normal to inspection and full ROM General Extremity: edema Neuro moves all extremities and no focal motor deficits Psych Mood & Affect: flat affect Charges/Coding Procedures Hospitalists Procedures: [id number] Critial Care 1st Hr
[2022-04-10] MEDS: Chlorhexidine 15 ML PO ×2 (07:58→21:14)
[2022-04-10] MEDS: Furosemide 40 MG/4 ML Vial IV (08:03)
[2022-04-10] MEDS: Metoprolol Tartrate 100 MG Tablet 150 MG GT ×2 (08:05→21:47)
[2022-04-10] MEDS: Insulin Glargine-YFGN 100 UNIT/ML Pen 15 UNIT SC ×2 (08:15→23:50)
[2022-04-10] MEDS: Rivaroxaban 20 MG Tablet PO (08:20)
--- NOTE | 2022-04-10 08:56 | PCM.PN.HOSP ---
Subjective Subjective Follow-up on acute respiratory failure/pneumonia/KAY: Patient was seen and examined.? No new changes overnight. Remains febrile and tachycardic. She failed her spontaneous awakening trial today. Objective Data Objective Data Vital Signs: Vital Signs Temp Pulse Resp BP Pulse Ox O2 Del Method O2 Flow Rate 99.8 F H 143 H 22 H 151/74 H 90 Mechanical Ventilator 2 04/10/22 07:00 04/10/22 08:05 04/10/22 07:08 04/10/22 08:05 04/10/22 07:08 04/10/22 07:00 04/08/22 13:00 FiO2 25 04/10/22 07:08 Oxygen Flow Rate (L/min) 2 Oxygen Delivery Method Mechanical Ventilator Weight: 81.42 kg Body Mass Index (BMI) 26.6 Intake & Output: Intake and Output for Last 24 Hours 04/08/22 04/09/22 04/10/22 23:59 23:59 23:59 Intake Total 2092.37 / 2227.39 4821.56 / 4966.26 1602.05 / 1602.05 Output Total 2225 / 2225 1475 / 1475 300 / 300 Balance -132.63 / 2.39 3346.56 / 3491.26 1302.05 / 1302.05 Lab / Micro Data Result Diagrams: 04/10/22 03:45 04/10/22 03:45 Labs: Laboratory Results - last 24 hr 04/09/22 11:24: POC Glucose 283 H 04/09/22 18:14: POC Glucose 308 H 04/09/22 23:59: POC Glucose 264 H 04/10/22 03:45: WBC 19.7 H, RBC 2.89 L, Hgb 8.8 L, Hct 29.6 L, MCV 102.4 H, MCH 30.4, MCHC 29.7 L, RDW Std Deviation 57.6 H, RDW Coeff of Lainey 15.4 H, Plt Count 225, MPV 10.8, Immature Gran % (Auto) 4.700 H, Neut % (Auto) 90.8 H, Lymph % (Auto) 1.8 L, [place] % (Auto) 2.5, Eos % (Auto) 0.0, Baso % (Auto) 0.2, Absolute Neuts (auto) 17.9 H, Absolute Lymphs (auto) 0.36 L, Nucleated RBC % 1.6, Differential Comment SCANNED 04/10/22 03:45: Sodium 144, Potassium 4.1, Chloride 115 H, Carbon Dioxide 22.0, Anion Gap 7, BUN 37 H, Creatinine 0.86, Estim Creat Clear Calc 64.27, Est GFR (MDRD) Af Amer 85, Est GFR (MDRD) Non-Af 70, BUN/Creatinine Ratio 42.9 H, Glucose 348 H, Calcium 7.0 L, Total Bilirubin 0.30, AST 12 L, ALT 12 L, Alkaline Phosphatase 139 H, Total Protein 5.6 L, Albumin 1.7 L, Globulin 3.9, Albumin/Globulin Ratio 0.4 L 04/10/22 05:51: POC Glucose 339 H Micro: Microbiology 04/06/22 20:35 Sputum, Tracheal Aspirate Gram Stain - Final 04/06/22 20:35 Sputum, Tracheal Aspirate Respiratory Culture - Final Meth. resistant Staph. aureus 04/06/22 13:50 Urine Catheter - Bravo Urine Culture - Final Escherichia coli 04/06/22 21:40 Urine Catheter - Bravo Legionella Antigen - Final 04/06/22 21:40 Urine Catheter - Bravo Streptococcus pneumoniae Antigen (M - Final 04/06/22 14:50 Nasal Secretion SARS-CoV-2 & FLU Antigen (Rapid) - Final Rhythm Strip Rhythm Strip: A-fib Rate: 130 Physical Exam Narrative Physical exam: General: Sedated, intubated, on mechanical ventilator HEENT: Atraumatic Oral: Moist Mucosa Neck: Supple Lungs: Diminished to auscultation Cardiovascular: HS I+II, regular, no murmurs Abdomen: Bowel Sounds Present, Soft, Non Tender Extremities: Bilateral pedal edema, trace Skin: No rashes, No breakdown Neurological: Grossly intact Psych/Mental Status: Appropriate Assessment & Plan Assessment/Plan (1) Acute and chronic respiratory failure, unspecified whether with hypoxia or hypercapnia: (2) Pneumonia: (3) Respiratory acidosis: PLAN: Plan Summary: 66 y/o past medical history of COPD, hypertension, type II DM who comes in with altered mental status and generalized weakness. Patient had severe acute respiratory acidosis in the emergency room on ABG. Chest x-ray showed right lower lobe pneumonia. She was initially admitted to ICU on BiPAP and later emergently intubated. 1. Acute on chronic combined respiratory failure secondary to MRSA pneumonia/acute COPD/bronchiectasis exacerbation/acute E. coli UTI, status post intubation, remains on mechanical ventilator Urine legionella and streptococcal antigen is negative. Sputum growing staph aureus, blood cultures are pending Continue IV Solu-Medrol, IV vancomycin and Zosyn Metal Sprayer following, follow-up on recommendations 2. Sepsis secondary to MRSA pneumonia/acute E. coli UTI Sputum cultures with MRSA, urine cultures growing E. coli, blood cultures are pending Continue on IV vancomycin and Zosyn 3. Hypertension, blood pressure has been improved, Continue on oral metoprolol 4. A. fib with RVR, likely secondary to ongoing sepsis On metoprolol 150 mg GT twice daily, on Xarelto Verapamil remains on hold Cardiology consulted 5. Anemia, hemoglobin is 8.8, previous hemoglobin is 9.2, continue to trend 6. KAY, likely prerenal from #1,appears resolved Creatinine today is 0.86 Kidney and bladder ultrasound shows hypodensities in both kidneys Nephrology following 7. Sick euthyroid syndrome, labs and to repeat on patient recovered 8. Rheumatoid arthritis, will continue to hold leflunomide for now 9. DVT PPx-on Xarelto Charges/Coding Visit Charges Inpatient E&M: 23669 Subs Hosp L3
[2022-04-10] MEDS: Acetaminophen 650 MG/20 ML UDC GT (12:05)
[2022-04-10 12:36] LABS: Bedside Glucose 339 mg/dL (74-106)
--- NOTE | 2022-04-10 12:49 | PN.RENAL_ITS ---
Subjective Subjective No new event Objective Data Objective Data Vital Signs: Vital Signs Temp Pulse Resp BP Pulse Ox O2 Del Method O2 Flow Rate 101.3 F H 132 H 20 H 130/79 H 94 Mechanical Ventilator 2 04/10/22 12:00 04/10/22 12:00 04/10/22 12:00 04/10/22 12:00 04/10/22 12:00 04/10/22 12:00 04/08/22 13:00 FiO2 30 04/10/22 12:00 Oxygen Flow Rate (L/min) 2 Oxygen Delivery Method Mechanical Ventilator Weight: 81.42 kg Body Mass Index (BMI) 26.6 Intake & Output: Intake and Output for Last 24 Hours 04/08/22 04/09/22 04/10/22 23:59 23:59 23:59 Intake Total 2092.37 / 2227.39 4821.56 / 4966.26 2279.27 / 2279.27 Output Total 2225 / 2225 1475 / 1475 1450 / 1450 Balance -132.63 / 2.39 3346.56 / 3491.26 829.27 / 829.27 Lab / Micro Data Result Diagrams: 04/10/22 03:45 04/10/22 03:45 Labs: Laboratory Results - last 24 hr 04/09/22 18:14: POC Glucose 308 H 04/09/22 23:59: POC Glucose 264 H 04/10/22 03:45: WBC 19.7 H, RBC 2.89 L, Hgb 8.8 L, Hct 29.6 L, MCV 102.4 H, MCH 30.4, MCHC 29.7 L, RDW Std Deviation 57.6 H, RDW Coeff of Lainey 15.4 H, Plt Count 225, MPV 10.8, Immature Gran % (Auto) 4.700 H, Neut % (Auto) 90.8 H, Lymph % (Auto) 1.8 L, [place] % (Auto) 2.5, Eos % (Auto) 0.0, Baso % (Auto) 0.2, Absolute Neuts (auto) 17.9 H, Absolute Lymphs (auto) 0.36 L, Nucleated RBC % 1.6, Differential Comment SCANNED 04/10/22 03:45: Sodium 144, Potassium 4.1, Chloride 115 H, Carbon Dioxide 22.0, Anion Gap 7, BUN 37 H, Creatinine 0.86, Estim Creat Clear Calc 64.27, Est GFR (MDRD) Af Amer 85, Est GFR (MDRD) Non-Af 70, BUN/Creatinine Ratio 42.9 H, Glucose 348 H, Calcium 7.0 L, Total Bilirubin 0.30, AST 12 L, ALT 12 L, Alkaline Phosphatase 139 H, Total Protein 5.6 L, Albumin 1.7 L, Globulin 3.9, Albumin/Globulin Ratio 0.4 L 04/10/22 05:51: POC Glucose 339 H 04/10/22 12:02: POC Glucose 339 H Micro: Microbiology 04/06/22 20:35 Sputum, Tracheal Aspirate Gram Stain - Final 04/06/22 20:35 Sputum, Tracheal Aspirate Respiratory Culture - Final Meth. resistant Staph. aureus 04/06/22 13:50 Urine Catheter - Bravo Urine Culture - Final Escherichia coli 04/06/22 21:40 Urine Catheter - Bravo Legionella Antigen - Final 04/06/22 21:40 Urine Catheter - Bravo Streptococcus pneumoniae Antigen (M - Final 04/06/22 14:50 Nasal Secretion SARS-CoV-2 & FLU Antigen (Rapid) - Final Rhythm Strip Rhythm Strip: A-fib Rate: 130 Physical Exam Narrative On vent S1, S2, rhythm irregular, rate controlled Lung sounds diminished Abdomen soft, positive bowel sounds, rounded No pitting edema Assessment & Plan Assessment/Plan (1) KAY (acute kidney injury): (2) Acute and chronic respiratory failure, unspecified whether with hypoxia or hypercapnia: (3) Pneumonia: (4) Atrial fibrillation with rapid ventricular response: PLAN: Plan Overall renal function stable and improved. Likely fluctuating serum creatinine from hemodynamic instability. In reviewing past creatinine trends patient has normal baseline creatinine of less than 1 mg/dL over the past few years. On 04/06 her creatinine was 1.3mg/dL, yesterday creatinine is at 1.2 mg/dL and today her creatinine is 0.94 mg/dL. Bicarb normal today. No hyperkalemia. Patient is nonoliguric. 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 UA essentially benign. Blood pressures acceptable, not requiring pressor support.
[2022-04-10] MEDS: Amiodarone 360 MG in Dextrose 5% Viaflo Bag 192.8 ML 33.2999999999999972 MG CONT INF (13:05)
--- NOTE | 2022-04-10 13:53 | PCM.CONS.C ---
Documented by User: Domonique SILVA, PA 04/10/22 14:50 Assessment & Plan Assessment/Plan (1) Atrial fibrillation with rapid ventricular response: (2) Pneumonia: (3) KAY (acute kidney injury): (4) Sepsis: PLAN: Plan Will continue to adjust medications for better rate control. She is currently on Metoprolol and Amiodarone IV. Once HR better controlled can switch to oral. She is anticoagulated, recommend continue monitoring of Hgb as she is anemic. HPI Consult Data Date of Consult: 04/10/22 HPI Narrative HPI Narrative: BOBBY FLORES, is a 66 F who presented to [facility] on 04/06/2022 for change in mental status. She was noted to be septic with acute kidney injury. She was also noted to have severe pneumonia. She does have a history of hypertension, anemia and persistent atrial fibrillation. She is chronically anticoagulated. Upon admission with her low blood pressure her metoprolol was held.We were consulted today for input on her atrial fib with RVR. [facility] Medical History Abdominal cramping Anemia Asthma Atrial fibrillation Bronchitis Chest pain Diabetes Former smoker GERD (gastroesophageal reflux disease) Hypertension Hyperthyroidism Irregular heart beat Lack of appetite Nausea On home oxygen therapy Pneumonia Rheumatoid arthritis Home Medications acetaminophen 500 mg tablet 1,000 mg PO Q6H PRN PAIN 01/30/19 [History Last Taken 04/06/22] gabapentin 100 mg capsule 200 mg PO BID NERVE PAIN 05/10/19 [History Last Taken 04/06/22] ipratropium 0.5 mg-albuterol 3 mg (2.5 mg base)/3 mL nebulization soln 3 ml inhalation Q6H.RT copd 05/10/19 [History Last Taken 09/10/20] ondansetron HCl 4 mg tablet (Zofran) 4 mg PO Q6H nausea #10 tabs 08/27/20 [Rx Last Taken 04/06/22] budesonide 0.5 mg/2 mL suspension for nebulization 0.5 mg inhalation BID sob 09/02/20 [History Last Taken 09/10/20] budesonide-formoterol HFA 160 mcg-4.5 mcg/actuation aerosol inhaler (Symbicort) 2 puff inhalation BID LUNGS 04/06/22 [History Last Taken 04/06/22] cholecalciferol (vitamin D3) 1,250 mcg (50,000 unit) capsule 50,000 unit PO QMONTH SUPPLEMENT 04/06/22 [History Last Taken Unknown] dextromethorphan-guaifenesin 30 mg-600 mg tablet extended hr (Mucinex DM) 1 tab PO Q12H CHEST CONGESTION 04/06/22 [History Last Taken 04/06/22] ferrous gluconate 324 mg (37.5 mg iron) tablet 324 mg PO BID SUPPLEMENT 04/06/22 [History Last Taken 03/31/22] gabapentin 400 mg capsule 400 mg PO TID NERVE PAIN 04/06/22 [History Last Taken 04/05/22] leflunomide 20 mg tablet 20 mg PO DAILY ARTHRITIS 04/06/22 [History Last Taken 04/06/22] metoprolol succinate 100 mg tablet,extended release 24 hr 100 mg PO DAILY HEART 04/06/22 [History Last Taken 04/06/22] omeprazole 40 mg capsule,delayed release 40 mg PO DAILY PRN REFLUX 04/06/22 [History Last Taken Unknown] rivaroxaban 20 mg tablet (Xarelto) 20 mg PO DAILY HEART 04/06/22 [History Last Taken 04/05/22] venlafaxine 37.5 mg capsule,extended release 24 hr 37.5 mg PO DAILY MOOD 04/06/22 [History Last Taken 04/05/22] verapamil 80 mg tablet 40 mg PO Q8 HEART 04/06/22 [History Last Taken 04/06/22] Allergy/AdvReac Type Severity Reaction Status Date / Time No Known Allergies Allergy Verified 09/02/20 16:24 Surgical History H/O: hysterectomy Social History household members: spouse Smoking Status: Former smoker substance use type: does not use Physical Exam Narrative Physical exam: General: Sedated, intubated, on mechanical ventilator HEENT: Atraumatic Oral: Moist Mucosa Neck: Supple Lungs: Diminished to auscultation Cardiovascular:Tachycardic, Irreg/irreg. Mo G/M/R Abdomen: Bowel Sounds Present, Soft, Non Tender Extremities: Bilateral pedal edema, trace Skin: No rashes, No breakdown Neurological: Grossly intact Psych/Mental Status: Appropriate Risk Stratification Risk Stratification Applicable: No Charges/Coding Visit Charges Office Visits / Consults: 36890 IP Consult L3 Objective Data Vital Signs: Vital Signs Temp Pulse Resp BP Pulse Ox O2 Del Method O2 Flow Rate 101.3 F H 117 H 22 H 130/79 H 95 Mechanical Ventilator 2 04/10/22 12:52 04/10/22 13:11 04/10/22 13:11 04/10/22 12:52 04/10/22 13:11 04/10/22 12:52 04/08/22 13:00 FiO2 30 04/10/22 13:11 Oxygen Flow Rate (L/min) 2 Oxygen Delivery Method Mechanical Ventilator Weight: 179 lb 8 oz Body Mass Index (BMI) 26.6 Intake & Output: Intake and Output for Last 24 Hours 04/08/22 04/09/22 04/10/22 23:59 23:59 23:59 Intake Total 2092.37 / 2227.39 4821.56 / 4966.26 2492.27 / 2492.27 Output Total 2225 / 2225 1475 / 1475 1450 / 1450 Balance -132.63 / 2.39 3346.56 / 3491.26 1042.27 / 1042.27 Lab / Micro Data Result Diagrams: 04/10/22 03:45 04/10/22 03:45 Labs: Laboratory Results - last 24 hr 04/09/22 18:14: POC Glucose 308 H 04/09/22 23:59: POC Glucose 264 H 04/10/22 03:45: WBC 19.7 H, RBC 2.89 L, Hgb 8.8 L, Hct 29.6 L, MCV 102.4 H, MCH 30.4, MCHC 29.7 L, RDW Std Deviation 57.6 H, RDW Coeff of Lainey 15.4 H, Plt Count 225, MPV 10.8, Immature Gran % (Auto) 4.700 H, Neut % (Auto) 90.8 H, Lymph % (Auto) 1.8 L, [place] % (Auto) 2.5, Eos % (Auto) 0.0, Baso % (Auto) 0.2, Absolute Neuts (auto) 17.9 H, Absolute Lymphs (auto) 0.36 L, Nucleated RBC % 1.6, Differential Comment SCANNED 04/10/22 03:45: Sodium 144, Potassium 4.1, Chloride 115 H, Carbon Dioxide 22.0, Anion Gap 7, BUN 37 H, Creatinine 0.86, Estim Creat Clear Calc 64.27, Est GFR (MDRD) Af Amer 85, Est GFR (MDRD) Non-Af 70, BUN/Creatinine Ratio 42.9 H, Glucose 348 H, Calcium 7.0 L, Total Bilirubin 0.30, AST 12 L, ALT 12 L, Alkaline Phosphatase 139 H, Total Protein 5.6 L, Albumin 1.7 L, Globulin 3.9, Albumin/Globulin Ratio 0.4 L 04/10/22 05:51: POC Glucose 339 H 04/10/22 12:02: POC Glucose 339 H Rhythm Strip Rhythm Strip: A-fib Rate: 130 Cardiology Labs/Tests 04/10/22 03:45: WBC 19.7 H, RBC 2.89 L, Hgb 8.8 L, Hct 29.6 L, MCV 102.4 H, MCH 30.4, MCHC 29.7 L, Plt Count 225, MPV 10.8, Immature Gran % (Auto) 4.700 H, Neut % (Auto) 90.8 H, Lymph % (Auto) 1.8 L, [place] % (Auto) 2.5, Eos % (Auto) 0.0, Baso % (Auto) 0.2, Absolute Neuts (auto) 17.9 H, Nucleated RBC % 1.6 04/10/22 03:45: Sodium 144, Potassium 4.1, Chloride 115 H, Carbon Dioxide 22.0, Anion Gap 7, BUN 37 H, Creatinine 0.86, Est GFR (MDRD) Af Amer 85, Est GFR (MDRD) Non-Af 70, BUN/Creatinine Ratio 42.9 H, Glucose 348 H, Calcium 7.0 L, Total Bilirubin 0.30 Rhythm: Afib with RVR EKG: ECHO 08/2020: Left ventricular systolic function is normal. The estimated ejection fraction is 65 %. Trivial mitral valve insufficiency. Trivial tricuspid valve insufficiency. Right ventricular systolic pressure estimated to be 43 mmHg. No evidence for diastolic dysfunction. Stress Test: Documented by User: Dr. Jaci Espinoza MD 04/10/22 17:53 Assessment & Plan Assessment/Plan (1) Atrial fibrillation with rapid ventricular response: (2) Pneumonia: (3) KAY (acute kidney injury): (4) Sepsis: PLAN: Plan Will continue to adjust medications for better rate control. She is currently on Metoprolol and Amiodarone IV. Once HR better controlled can switch to oral. She is anticoagulated, recommend continue monitoring of Hgb as she is anemic. I independently reviewed the medical record of this patient including the current cardiac evaluation EKG imaging studies as well as the current cardiac medication and plan and I formulated cardiac care plan as per midlevel documentation. Will continue to monitor and follow-up clinically. HPI Consult Data Date of Consult: 04/10/22 [facility] Medical History Abdominal cramping Anemia Asthma Atrial fibrillation Bronchitis Chest pain Diabetes Former smoker GERD (gastroesophageal reflux disease) Hypertension Hyperthyroidism Irregular heart beat Lack of appetite Nausea On home oxygen therapy Pneumonia Rheumatoid arthritis Home Medications acetaminophen 500 mg tablet 1,000 mg PO Q6H PRN PAIN 01/30/19 [History Last Taken 04/06/22] gabapentin 100 mg capsule 200 mg PO BID NERVE PAIN 05/10/19 [History Last Taken 04/06/22] ipratropium 0.5 mg-albuterol 3 mg (2.5 mg base)/3 mL nebulization soln 3 ml inhalation Q6H.RT copd 05/10/19 [History Last Taken 09/10/20] ondansetron HCl 4 mg tablet (Zofran) 4 mg PO Q6H nausea #10 tabs 08/27/20 [Rx Last Taken 04/06/22] budesonide 0.5 mg/2 mL suspension for nebulization 0.5 mg inhalation BID sob 09/02/20 [History Last Taken 09/10/20] budesonide-formoterol HFA 160 mcg-4.5 mcg/actuation aerosol inhaler (Symbicort) 2 puff inhalation BID LUNGS 04/06/22 [History Last Taken 04/06/22] cholecalciferol (vitamin D3) 1,250 mcg (50,000 unit) capsule 50,000 unit PO QMONTH SUPPLEMENT 04/06/22 [History Last Taken Unknown] dextromethorphan-guaifenesin 30 mg-600 mg tablet extended [id number] hr (Mucinex DM) 1 tab PO Q12H CHEST CONGESTION 04/06/22 [History Last Taken 04/06/22] ferrous gluconate 324 mg (37.5 mg iron) tablet 324 mg PO BID SUPPLEMENT 04/06/22 [History Last Taken 03/31/22] gabapentin 400 mg capsule 400 mg PO TID NERVE PAIN 04/06/22 [History Last Taken 04/05/22] leflunomide 20 mg tablet 20 mg PO DAILY ARTHRITIS 04/06/22 [History Last Taken 04/06/22] metoprolol succinate 100 mg tablet,extended release 24 hr 100 mg PO DAILY HEART 04/06/22 [History Last Taken 04/06/22] omeprazole 40 mg capsule,delayed release 40 mg PO DAILY PRN REFLUX 04/06/22 [History Last Taken Unknown] rivaroxaban 20 mg tablet (Xarelto) 20 mg PO DAILY HEART 04/06/22 [History Last Taken 04/05/22] venlafaxine 37.5 mg capsule,extended release 24 hr 37.5 mg PO DAILY MOOD 04/06/22 [History Last Taken 04/05/22] verapamil 80 mg tablet 40 mg PO Q8 HEART 04/06/22 [History Last Taken 04/06/22] Allergy/AdvReac Type Severity Reaction Status Date / Time No Known Allergies Allergy Verified 09/02/20 16:24 Surgical History H/O: hysterectomy Social History household members: spouse Smoking Status: Former smoker substance use type: does not use Lab / Micro Data Result Diagrams: 04/10/22 03:45 04/10/22 03:45
[2022-04-10] MEDS: guaiFENesin 10 ML UDC (200MG/10ML) PO ×2 (17:41→21:45)
[2022-04-10 18:06] LABS: Bedside Glucose 329 mg/dL (74-106)
[2022-04-10] MEDS: Amiodarone 360 MG in Dextrose 5% Viaflo Bag 192.8 ML 16.6999999999999993 MG CONT INF (19:55)
[2022-04-11] VITALS (40 sets, daily range): BP systolic 77–147; BP diastolic 53–93; PULSE 75–133; RESP 12–41; TEMP 36.5–39.1; O2SAT 92–100
[2022-04-11 00:10] LABS: Bedside Glucose 281 mg/dL (74-106)
[2022-04-11] MEDS: guaiFENesin 10 ML UDC (200MG/10ML) PO ×6 (01:28→21:25)
[2022-04-11] MEDS: CHLORHEXIDINE GLUC 2% CLOTH 1 EACH TOWELETTE TOPICAL (01:28)
[2022-04-11] MEDS: Propofol 10MG/Ml 1,000 MG/100 ML Bottle 14.6999999999999993 MG CONT INF (01:28)
[2022-04-11] MEDS: Insulin Lispro 100 UNIT/ML INSULN.PEN SC ×4 (05:12→22:57)
[2022-04-11 05:45] LABS: Bedside Glucose 315 mg/dL (74-106)
--- NOTE | 2022-04-11 06:11 | PCM.PN.INT ---
Assessment & Plan Assessment/Plan (1) Acute and chronic respiratory failure, unspecified whether with hypoxia or hypercapnia: (2) Chronic atrial fibrillation with rapid ventricular response: (3) Bronchiectasis: QUALIFIERS: Bronchiectasis type: uncomplicated Qualified Code(s): J47.9 - Bronchiectasis, uncomplicated (4) Pneumonia: PLAN: Plan RECOMMENDATIONS: 1. Continue to wean FiO2 and PEEP to maintain oxygen saturations at or above 90%. 2. Okay to continue fentanyl. Transition from propofol to Precedex for sedation. 3. Attempt gentle diuresis if hemodynamic status improves. 4. Continue antimicrobials. 5. Continue tube feeds as tolerated. 6. Continue Xarelto and PPI therapy as ordered. 7. Continue paired spontaneous awakening and breathing trials. 8. A. fib management per cardiology recommendations. 9. Continue scheduled bronchodilators and steroids. IMPRESSIONS: 1. Acute on chronic combined respiratory failure secondary to bilateral pneumonia Plan to continue current supportive measures including invasive mechanical ventilatory support. FiO2 and PEEP can be weaned to maintain oxygen saturations at or above 90%. Continue antimicrobials to address MRSA noted on sputum culture. The patient will be maintained on fentanyl for pain control, but will be transition to Precedex from propofol for sedation. Continue scheduled bronchodilators and steroids as ordered. Continue attempts at paired spontaneous awakening and breathing trials. Continue tube feeds as tolerated. If hemodynamic status allows, attempts at gentle diuresis can be undertaken today. 2. Acute kidney injury secondary to sepsis d/t pneumonia Resolved. Kidney function has improved with stabilization of hemodynamics. Continue to monitor urine output. No current indication for renal replacement therapy. 3. A. fib with RVR Continue systemic anticoagulation per baseline. Cardiology is following to assist with medical management of atrial fibrillation. 4. Anemia/hypertension/debility/bronchiectasis/rheumatoid lung disease Complicates care, management, recovery and prognosis. No indication for transfusions at this time. Continue tube feeds as tolerated. TIME: 32 minutes of critical care time, independent of procedures, was spent addressing the patient's acute on chronic combined respiratory failure, MRSA pneumonia, atrial fibrillation with RVR, acute kidney injury, review of all data and collaboration with the care team. Subjective Subjective The patient was seen and examined at the bedside this morning. Events from the last 24 hours have been reviewed. The patient is currently afebrile, hemodynamically stable and maintaining appropriate oxygen saturations on assist control mode mechanical ventilation with an FiO2 requirement of 30% and PEEP of 5. The patient is currently documented to be overall net +10.5 L for the hospitalization. She remains in atrial fibrillation with RVR. The patient is sedated on propofol and fentanyl. She failed her spontaneous breathing trial this morning. Objective Data Objective Data The patient's most recent lab work, culture data and imaging studies have all been personally reviewed. Sputum culture dated April 06 was positive for MRSA. Urine culture dated April 06 was positive for E. coli. Vital Signs: Vital Signs Temp Pulse Resp BP Pulse Ox O2 Del Method O2 Flow Rate 99.7 F H 112 H 14 84/58 L 93 Mechanical Ventilator 2 04/11/22 06:00 04/11/22 06:00 04/11/22 06:00 04/11/22 06:00 04/11/22 06:00 04/11/22 06:00 04/08/22 13:00 FiO2 30 04/11/22 06:00 Oxygen Flow Rate (L/min) 2 Oxygen Delivery Method Mechanical Ventilator Weight: 180 lb 1.883 oz Body Mass Index (BMI) 26.6 Intake & Output: Intake and Output for Last 24 Hours 04/09/22 04/10/22 04/11/22 23:59 23:59 23:59 Intake Total 4821.56 / 4966.26 4724.26 / 4765.66 971.71 / 971.71 Output Total 1475 / 1475 2550 / 2550 600 / 600 Balance 3346.56 / 3491.26 2174.26 / 2215.66 371.71 / 371.71 Lab / Micro Data Attestation: I reviewed the patient's lab results. Result Diagrams: 04/10/22 03:45 04/10/22 03:45 Labs: Laboratory Results - last 24 hr 04/10/22 05:51: POC Glucose 339 H 04/10/22 12:02: POC Glucose 339 H 04/10/22 17:37: POC Glucose 329 H 04/10/22 23:48: POC Glucose 281 H 04/11/22 05:10: POC Glucose 315 H Micro: Microbiology 04/06/22 20:35 Sputum, Tracheal Aspirate Gram Stain - Final 04/06/22 20:35 Sputum, Tracheal Aspirate Respiratory Culture - Final Meth. resistant Staph. aureus 04/06/22 13:50 Urine Catheter - Bravo Urine Culture - Final Escherichia coli 04/06/22 21:40 Urine Catheter - Bravo Legionella Antigen - Final 04/06/22 21:40 Urine Catheter - Bravo Streptococcus pneumoniae Antigen (M - Final 04/06/22 14:50 Nasal Secretion SARS-CoV-2 & FLU Antigen (Rapid) - Final Rhythm Strip Rhythm Strip: A-fib Rate: 130 Physical Exam Const no apparent distress General Appearance: intubated and patient mechanically ventilated HEENT normocephalic, head/scalp atraumatic and moist oral mucous membranes Mouth: endotracheal tube in place and OG tube in place Eyes PERRL, EOMs intact bilaterally and conjunctivae normal Neck supple General: trachea midline Chest inspection of chest normal Resp Auscultation: diminished lung sounds; Negative for rales, rhonchi or wheezes Cardio S1 normal heart sound, S2 normal heart sound, no murmurs, no rub and no gallops Rate: tachycardic Rhythm: abnormal rhythm irregularly irregular GI normal to inspection, nondistended, normoactive bowel sounds, soft to palpation, non-tender and non-distended Extremity General Extremity: edema Skin no rashes or lesions noted Neuro Sensorium / Orientation: sedated on vent Charges/Coding Procedures Hospitalists Procedures: 60054 Critial Care 1st Hr
[2022-04-11] MEDS: TITRATION PARAMETER CHANGE 1 EACH IV (06:40)
[2022-04-11 06:58] LABS: Hematocrit 30.9 % (37-47); Hemoglobin 9.1 g/dL (12.0-15.0); Mean Corp Hgb Conc 29.4 g/dL (32-36); Mean Platelet Vol. 11.6 fl (6.2-12.0); POSITIVE COUNT YES; POSITIVE DIFFERENTIAL YES; POSITIVE MORPHOLOGY YES; Platelet Count 234 K/mm3 (150-450); RBC Distribution Width CV 15.4 % (11.6-14.6); RBC Distribution Width SD 55.8 fl (35.1-43.9); Red Blood Count 3.03 M/mm3 (4.2-5.4); White Blood Count 22.1 K/mm3 (4.4-11.0)
[2022-04-11] MEDS: Ipratropium/Albuterol Sulfate 3 ML AMPUL.NEB INHALATION ×3 (07:10→19:10)
[2022-04-11 07:12] LABS: Vancomycin, Trough Level 19.2 ug/mL (5.0-15.0)
[2022-04-11 07:13] LABS: ALB/GLOB Ratio 0.5 RATIO (0.9-2.4); AST(SGOT) 14 U/L (15-37); Alanine Aminotransfer ALT/SGPT 15 U/L (13-56); Albumin, Serum 1.7 g/dL (3.2-5.0); Alkaline Phosphatase 120 U/L (45-117); Anion Gap 6 (5-15); BUN 41 mg/dL (7-18); BUN/Creat Ratio 48.8 RATIO (10-20); Calcium,Total 6.7 mg/dL (8.5-10.1); Chloride 112 mmol/L (98-107); Creatinine, Serum 0.84 mg/dL (0.55-1.02); EST Glomerular Filtration Rate 72 mL/min (>60); Est Glom Filt Rate - Afr Amer 88 mL/min (>60); Globulin 3.4 g/dL (2.2-4.2); Glucose 321 mg/dL (74-106); Potassium 3.6 mmol/L (3.5-5.1); Protein, Total 5.1 g/dL (6.4-8.2); Sodium Level 144 mmol/L (136-145)
[2022-04-11] MEDS: Amiodarone 360 MG in Dextrose 5% Viaflo Bag 192.8 ML 16.6999999999999993 MG CONT INF (07:15)
[2022-04-11 07:16] LABS: Differential Indicated MANUAL DIFF
--- NOTE | 2022-04-11 07:51 | PCM.PN.HOSP ---
Subjective Subjective Patient is a 66-year-old lady with multiple comorbidities admitted with altered mental status and generalized weakness. Patient was found to have acute respiratory acidosis imaging studies on admission demonstrated lower lobe pneumonia. Was placed on BiPAP and later intubated Objective Data Objective Data Vital Signs: Vital Signs Temp Pulse Resp BP Pulse Ox O2 Del Method O2 Flow Rate 99.6 F H 114 H 13 93/56 L 94 Mechanical Ventilator 2 04/11/22 07:00 04/11/22 07:10 04/11/22 07:10 04/11/22 07:00 04/11/22 07:10 04/11/22 07:00 04/08/22 13:00 FiO2 30 04/11/22 07:00 Oxygen Flow Rate (L/min) 2 Oxygen Delivery Method Mechanical Ventilator Weight: 81.7 kg Body Mass Index (BMI) 26.6 Intake & Output: Intake and Output for Last 24 Hours 04/09/22 04/10/22 04/11/22 23:59 23:59 23:59 Intake Total 4821.56 / 4966.26 4724.26 / 4765.66 1030.82 / 1030.82 Output Total 1475 / 1475 2550 / 2550 600 / 600 Balance 3346.56 / 3491.26 2174.26 / 2215.66 430.82 / 430.82 Lab / Micro Data Result Diagrams: 04/11/22 06:45 04/11/22 06:45 Labs: Laboratory Results - last 24 hr 04/10/22 12:02: POC Glucose 339 H 04/10/22 17:37: POC Glucose 329 H 04/10/22 23:48: POC Glucose 281 H 04/11/22 05:10: POC Glucose 315 H 04/11/22 06:45: WBC 22.1 H, RBC 3.03 L, Hgb 9.1 L, Hct 30.9 L, MCV 102.0 H, MCH 30.0, MCHC 29.4 L, RDW Std Deviation 55.8 H, RDW Coeff of Lainey 15.4 H, Plt Count 234, MPV 11.6, Neut % (Auto) Not Reportable 04/11/22 06:45: Sodium 144, Potassium 3.6, Chloride 112 H, Carbon Dioxide 26.0, Anion Gap 6, BUN 41 H, Creatinine 0.84, Estim Creat Clear Calc 65.80, Est GFR (MDRD) Af Amer 88, Est GFR (MDRD) Non-Af 72, BUN/Creatinine Ratio 48.8 H, Glucose 321 H, Calcium 6.7 L, Total Bilirubin 0.30, AST 14 L, ALT 15, Alkaline Phosphatase 120 H, Total Protein 5.1 L, Albumin 1.7 L, Globulin 3.4, Albumin/Globulin Ratio 0.5 L 04/11/22 06:45: Vancomycin Trough 19.2 H Micro: Microbiology 04/06/22 20:35 Sputum, Tracheal Aspirate Gram Stain - Final 04/06/22 20:35 Sputum, Tracheal Aspirate Respiratory Culture - Final Meth. resistant Staph. aureus 04/06/22 13:50 Urine Catheter - Bravo Urine Culture - Final Escherichia coli 04/06/22 21:40 Urine Catheter - Bravo Legionella Antigen - Final 04/06/22 21:40 Urine Catheter - Bravo Streptococcus pneumoniae Antigen (M - Final 04/06/22 14:50 Nasal Secretion SARS-CoV-2 & FLU Antigen (Rapid) - Final Rhythm Strip Rhythm Strip: A-fib Rate: 130 Physical Exam Narrative GENERAL: Sedated on the vent HEENT: Atraumatic; normocephalic EYES; Anicteric, Normal Conjunctiva NECK; supple, normal thyroid, RESPIRATORY: Diminished to auscultation CARDIOVASCULAR: Irregularly irregular, tachycardic GI: soft, normoactive bowel sounds, : No Renal angle tenderness; EXTREMITIES: Trace bipedal edema, no clubbing, MUSCULOSKELETAL: no muscle wasting NEURO: Sedated on the vent SKIN: No Rash PSYCH; underwent unable to assess Assessment & Plan Assessment/Plan (1) Pneumonia: PLAN: Plan Patient is a 66-year-old lady with multiple comorbidities admitted with altered mental status and generalized weakness. Patient was found to have acute respiratory acidosis imaging studies on admission demonstrated lower lobe pneumonia. Was placed on BiPAP and later intubated 1. Acute on chronic combined respiratory failure ? Secondary to combination of MRSA pneumonia COPD with acute exacerbation and bronchiectasis. Patient was managed on noninvasive ventilation initially with BiPAP and later intubated. Consult placed to pulmonary medicine vent management deferred 2. MRSA pneumonia ? Patient managed with vancomycin 3. Acute cystitis with E. coli ? Patient is on Zosyn 4. COPD with acute exacerbation ? Patient being managed on the vent Solu-Medrol added to patient's therapy 5. Bronchiectasis with acute acute exacerbation ? Patient is on events as well as antibiotics as described above 6. Paroxysmal A. fib with RVR ? Patient is on beta-blockers as well as Xarelto 7. Acute diarrhea ? Attributed to patient tube feeding stool for C. difficile has however been sent to rule out infectious etiology 8. Essential hypertension ? Patient blood pressure stable 9. Diabetes mellitus type II -patient's oral hypoglycemics held. Placed on long acting insulin, Accu-Cheks a.c. q6 with sliding scale insulin. Patient blood glucose levels not optimal further adjustment made to patient insulin regimen 10. Acute kidney injury ? Prerenal resolved with rehydration. Kidney ultrasound demonstrated hypodensities in both kidneys nephrology following 11. Abnormal thyroid function tests -secondary to sick euthyroid syndrome we will monitor 12. Anemia - Secondary to chronic disorder monitoring H&H and transfuse if patient becomes symptomatic or hemoglobin falls below 7 13. Rheumatoid arthritis, will continue to hold leflunomide for now 14. DVT PPx -on Xarelto Charges/Coding Visit Charges Inpatient E&M: 00373 Subs Hosp L3
--- NOTE | 2022-04-11 08:12 | PCM.RX.CS ---
Consult Pharmacy has been consulted to manage selected antiobiotic: Vancomycin Type of Consult: Follow-up Suspected Infection: Pneumonia Labs: Sodium 144 mmol/L (136-145) 04/11/22 06:45 Potassium 3.6 mmol/L (3.5-5.1) 04/11/22 06:45 Chloride 112 mmol/L (98-107) H 04/11/22 06:45 Carbon Dioxide 26.0 mmol/L (21.0-32.0) 04/11/22 06:45 Anion Gap 6 (5-15) 04/11/22 06:45 BUN 41 mg/dL (7-18) H 04/11/22 06:45 Creatinine 0.84 mg/dL (0.55-1.02) 04/11/22 06:45 Est GFR (MDRD) Af Amer 88 mL/min (>60) 04/11/22 06:45 Est GFR (MDRD) Non-Af 72 mL/min (>60) 04/11/22 06:45 BUN/Creatinine Ratio 48.8 RATIO (10-20) H 04/11/22 06:45 Glucose 321 mg/dL (74-106) H 04/11/22 06:45 Vancomycin Trough 19.2 ug/mL (5.0-15.0) H 04/11/22 06:45 Random Vancomycin 14.5 ug/mL (0.0-15.0) 04/09/22 06:05 Microbiology: Microbiology 04/06/22 20:35 Sputum, Tracheal Aspirate Gram Stain - Final 04/06/22 20:35 Sputum, Tracheal Aspirate Respiratory Culture - Final Meth. resistant Staph. aureus 04/06/22 13:50 Urine Catheter - Bravo Urine Culture - Final Escherichia coli 04/06/22 21:40 Urine Catheter - Bravo Legionella Antigen - Final 04/06/22 21:40 Urine Catheter - Bravo Streptococcus pneumoniae Antigen (M - Final 04/06/22 14:50 Nasal Secretion SARS-CoV-2 & FLU Antigen (Rapid) - Final Goal Trough: 15-20 mcg/mL Pharmacy Plan for Drug Dosing: VANCOMYCIN LEVEL RECEIVED Current Vancomycin Dose: 750MG IV Q12H Number of Doses Received: 4 of current regimen Vancomycin Level: 19.2 Hours Since Last Dose: ~11hr Renal Function: 0.84 Renal Function Trend: improving from acute elevation in SCr Lab/Micro: SCx growing MRSA Vancomycin Plan/Comments: Patient had a trough drawn which resulted in a value of 19.2 (goal 15-20). Of note; trough drawn before 4th dose of regimen, so the trough was re-ordered and drawn prior to the 5th scheduled dose. Patient is within goal range, so 750mg IV Q12hr will be continued. Pending Level: 04/12/22 @1930 Pharmacy Service will continue to monitor and adjust dosing as required.
[2022-04-11] MEDS: Chlorhexidine 15 ML PO ×2 (09:20→21:25)
[2022-04-11] MEDS: Metoprolol Tartrate 100 MG Tablet 150 MG GT ×2 (09:21→21:24)
[2022-04-11] MEDS: Rivaroxaban 20 MG Tablet PO (09:26)
[2022-04-11] MEDS: Insulin Glargine-YFGN 100 UNIT/ML Pen 25 UNIT SC ×2 (09:31→22:57)
[2022-04-11 09:39] LABS: Lymphocyte 2 % (19-41); Metamyelocyte 3 % (0-1); Monocyte 1 % (0-10); Myelocyte 2 % (0-0); Neutrophil-Segmented 92 % (47-70); Nucleated Red Bld Cells,Manual 3 % (0-5); Polychromasia 1+; Total Cells Counted 100 (MANUAL DIFF)
[2022-04-11 09:40] LABS: Anisocytosis 1+; Macrocytosis 1+; Platelet Estimate ADEQUATE (ADEQ)
[2022-04-11 09:42] LABS: Absolute Lymphocyte Count 0.44 X10^3/uL (0.83-4.51); Absolute Neutrophil Count 20.4 X10^3/uL (2.0-7.7)
[2022-04-11 11:40] LABS: Bedside Glucose 304 mg/dL (74-106)
--- NOTE | 2022-04-11 15:23 | PCM.PN.CARD ---
Subjective Subjective Patient intubated Objective Data Vital Signs: Vital Signs Temp Pulse Resp BP Pulse Ox O2 Del Method O2 Flow Rate 100.2 F H 111 H 19 H 123/75 H 95 Mechanical Ventilator 2 04/11/22 13:00 04/11/22 13:18 04/11/22 13:18 04/11/22 13:00 04/11/22 13:37 04/11/22 13:00 04/08/22 13:00 FiO2 30 04/11/22 13:00 Oxygen Flow Rate (L/min) 2 Oxygen Delivery Method Mechanical Ventilator Weight: 180 lb 1.883 oz Body Mass Index (BMI) 26.6 Intake & Output: Intake and Output for Last 24 Hours 04/09/22 04/10/22 04/11/22 23:59 23:59 23:59 Intake Total 4821.56 / 4966.26 4724.26 / 4765.66 2216.13 / 2216.13 Output Total 1475 / 1475 2550 / 2550 1150 / 1150 Balance 3346.56 / 3491.26 2174.26 / 2215.66 1066.13 / 1066.13 Lab / Micro Data Result Diagrams: 04/11/22 06:45 04/11/22 06:45 Labs: Laboratory Results - last 24 hr 04/10/22 17:37: POC Glucose 329 H 04/10/22 23:48: POC Glucose 281 H 04/11/22 05:10: POC Glucose 315 H 04/11/22 06:45: WBC 22.1 H, RBC 3.03 L, Hgb 9.1 L, Hct 30.9 L, MCV 102.0 H, MCH 30.0, MCHC 29.4 L, RDW Std Deviation 55.8 H, RDW Coeff of Lainey 15.4 H, Plt Count 234, MPV 11.6, Neut % (Auto) Not Reportable, Absolute Neuts (auto) 20.4 H, Absolute Lymphs (auto) 0.44 L, Total Counted 100, Neutrophils % (Manual) 92 H, Lymphocytes % (Manual) 2 L, Monocytes % (Manual) 1, Metamyelocytes % 3 H, Myelocytes % 2 H, Nucleated RBCs/100 WBC 3, Diff Path Review May foll, Platelet Estimate ADEQUATE, Polychromasia 1+, Anisocytosis 1+, Macrocytosis 1+ 04/11/22 06:45: Sodium 144, Potassium 3.6, Chloride 112 H, Carbon Dioxide 26.0, Anion Gap 6, BUN 41 H, Creatinine 0.84, Estim Creat Clear Calc 65.80, Est GFR (MDRD) Af Amer 88, Est GFR (MDRD) Non-Af 72, BUN/Creatinine Ratio 48.8 H, Glucose 321 H, Calcium 6.7 L, Total Bilirubin 0.30, AST 14 L, ALT 15, Alkaline Phosphatase 120 H, Total Protein 5.1 L, Albumin 1.7 L, Globulin 3.4, Albumin/Globulin Ratio 0.5 L 04/11/22 06:45: Vancomycin Trough 19.2 H 04/11/22 11:13: POC Glucose 304 H Micro: Microbiology 04/06/22 14:45 Blood Culture (Wb) - Arm Right Blood Culture - Final No growth in 5 days. 04/06/22 13:41 Blood Culture (Wb) - Anticubital Left Blood Culture - Final No growth in 5 days. Rhythm Strip Rhythm Strip: A-fib Rate: 130 Cardiology Labs/Tests 04/11/22 06:45: WBC 22.1 H, RBC 3.03 L, Hgb 9.1 L, Hct 30.9 L, MCV 102.0 H, MCH 30.0, MCHC 29.4 L, Plt Count 234, MPV 11.6, Neut % (Auto) Not Reportable, Absolute Neuts (auto) 20.4 H, Total Counted 100, Neutrophils % (Manual) 92 H, Lymphocytes % (Manual) 2 L, Monocytes % (Manual) 1, Metamyelocytes % 3 H, Myelocytes % 2 H 04/11/22 06:45: Sodium 144, Potassium 3.6, Chloride 112 H, Carbon Dioxide 26.0, Anion Gap 6, BUN 41 H, Creatinine 0.84, Est GFR (MDRD) Af Amer 88, Est GFR (MDRD) Non-Af 72, BUN/Creatinine Ratio 48.8 H, Glucose 321 H, Calcium 6.7 L, Total Bilirubin 0.30 Rhythm: EKG: ECHO: Stress Test: Cardiac Cath: PCI: CT Surgery: Holter monitor: EPS: PPM: CXR: Chest CT Scan:
[2022-04-11] MEDS: Acetaminophen 650 MG/20 ML UDC GT (15:29)
[2022-04-11 16:45] LABS: Bedside Glucose 371 mg/dL (74-106)
[2022-04-11] MEDS: Vital AF 1.2 Cal Liquid 1,000 ML 55 ML GT (20:20)
[2022-04-11] MEDS: 0.9% Saline Lock 10 ML Syringe IV (21:25)
[2022-04-11 23:20] LABS: Bedside Glucose 314 mg/dL (74-106)
[2022-04-12] VITALS (36 sets, daily range): BP systolic 82–169; BP diastolic 57–97; PULSE 85–163; RESP 12–27; TEMP 38.5–39.7; O2SAT 92–97
[2022-04-12] MEDS: Ipratropium/Albuterol Sulfate 3 ML AMPUL.NEB INHALATION ×2 (01:11→07:15)
[2022-04-12] MEDS: guaiFENesin 10 ML UDC (200MG/10ML) PO ×6 (02:31→21:13)
[2022-04-12] MEDS: Acetaminophen 650 MG/20 ML UDC GT ×3 (02:31→21:13)
--- NOTE | 2022-04-12 02:40 | NURSING ---
MAR shows fentanyl gtt was paused from 99 to 236, this is incorrect. Fentanyl gtt was not paused, administration was continued at that time.
[2022-04-12 03:14] LABS: Absolute Lymphocyte Count 0.44 X10^3/uL (0.83-4.51); Absolute Neutrophil Count 20.2 X10^3/uL (2.0-7.7); Basophil# 0.09 X10^3/uL; Basophil% 0.4 % (0-1); Hematocrit 31.7 % (37-47); Hemoglobin 9.6 g/dL (12.0-15.0); Lymphocyte # 0.44 X10^3/ul (0.83-4.51); Mean Corp Hgb Conc 30.3 g/dL (32-36); Mean Corpuscular Hgb 30.3 pg (27.0-32.0); Mean Platelet Vol. 12.4 fl (6.2-12.0); Monocyte# 0.56 X10^3/uL; Monocyte% 2.5 % (0-10); NRBC Flagged by Analyzer 2.4 % (0-5); Neutrophil # 20.22 X10^3/uL (2.7-7.7); Neutrophil % 90.2 % (47-70); POSITIVE COUNT YES; POSITIVE DIFFERENTIAL YES; Platelet Count 163 K/mm3 (150-450); RBC Distribution Width CV 14.8 % (11.6-14.6); RBC Distribution Width SD 53.1 fl (35.1-43.9); Red Blood Count 3.17 M/mm3 (4.2-5.4); White Blood Count 22.4 K/mm3 (4.4-11.0)
[2022-04-12 03:23] LABS: Differential Indicated SCAN CRITERIA MET
--- NOTE | 2022-04-12 04:13 | PN.CC_ITS ---
Assessment & Plan Assessment/Plan (1) Acute and chronic respiratory failure, unspecified whether with hypoxia or hypercapnia: (2) Chronic atrial fibrillation with rapid ventricular response: (3) Bronchiectasis: QUALIFIERS: Bronchiectasis type: uncomplicated Qualified Code(s): J47.9 - Bronchiectasis, uncomplicated (4) Pneumonia: PLAN: Plan RECOMMENDATIONS: 1. Continue to wean FiO2 and PEEP to maintain oxygen saturations at or above 90%. 2. Okay to continue fentanyl. Transition from propofol to Precedex for sedation. 3. Administer IV Lasix today as ordered. 4. Continue antimicrobials. 5. Continue tube feeds as tolerated. 6. Continue Xarelto and PPI therapy as ordered. 7. Continue paired spontaneous awakening and breathing trials. 8. A. fib management per cardiology recommendations. 9. Continue scheduled bronchodilators and steroids. IMPRESSIONS: 1. Acute on chronic combined respiratory failure secondary to bilateral pneumonia Plan to continue current supportive measures including invasive mechanical ventilatory support. FiO2 and PEEP can be weaned to maintain oxygen saturations at or above 90%. Continue antimicrobials to address MRSA noted on sputum culture. The patient will be maintained on fentanyl for pain control and Precedex for sedation. Continue scheduled bronchodilators and steroids as ordered. Continue attempts at paired spontaneous awakening and breathing trials. Continue tube feeds as tolerated. Given stable hemodynamic status, will attempt diuresis today. 2. Acute kidney injury secondary to sepsis d/t pneumonia Resolved. Kidney function has improved with stabilization of hemodynamics. Continue to monitor urine output. No current indication for renal replacement therapy. 3. A. fib with RVR Continue systemic anticoagulation per baseline. Cardiology is following to assist with medical management of atrial fibrillation. 4. Anemia/hypertension/debility/bronchiectasis/rheumatoid lung disease Complicates care, management, recovery and prognosis. No indication for transfusions at this time. Continue tube feeds as tolerated. TIME: 31 minutes of critical care time, independent of procedures, was spent addressing the patient's acute on chronic combined respiratory failure, MRSA pneumonia, atrial fibrillation with RVR, acute kidney injury, review of all data and collaboration with the care team. Subjective Subjective The patient was seen and examined at the bedside this morning. Events from the last 24 hours have been reviewed. The patient is currently febrile with a temperature of 102.8 ?F. She remains otherwise hemodynamically stable on assist control mode of mechanical ventilation with an FiO2 requirement of 30%. The patient is currently documented to be overall net +12.2 L for the hospitalization. White count is elevated at 22,000. Objective Data Objective Data The patient's most recent lab work, culture data and imaging studies have all been personally reviewed. Sputum culture dated April 06 was positive for MRSA. Urine culture dated April 06 was positive for E. coli. Vital Signs: Vital Signs Temp Pulse Resp BP Pulse Ox O2 Del Method O2 Flow Rate 102.8 F H 97 27 H 152/86 H 95 Mechanical Ventilator 2 04/12/22 04:00 04/12/22 04:00 04/12/22 04:00 04/12/22 04:00 04/12/22 04:00 04/12/22 04:00 04/08/22 13:00 FiO2 30 04/12/22 04:00 Oxygen Flow Rate (L/min) 2 Oxygen Delivery Method Mechanical Ventilator Weight: 183 lb Body Mass Index (BMI) 26.6 Intake & Output: Intake and Output for Last 24 Hours 04/10/22 04/11/22 04/12/22 23:59 23:59 23:59 Intake Total 4724.26 / 4765.66 3370.06 / 3405.06 721.49 / 721.49 Output Total 2550 / 2550 1625 / 1625 400 / 400 Balance 2174.26 / 2215.66 1745.06 / 1780.06 321.49 / 321.49 Lab / Micro Data Attestation: I reviewed the patient's lab results. Result Diagrams: 04/13/22 04:00 04/13/22 04:00 Labs: Laboratory Results - last 24 hr 04/11/22 05:10: POC Glucose 315 H 04/11/22 06:45: WBC 22.1 H, RBC 3.03 L, Hgb 9.1 L, Hct 30.9 L, MCV 102.0 H, MCH 30.0, MCHC 29.4 L, RDW Std Deviation 55.8 H, RDW Coeff of Lainey 15.4 H, Plt Count 234, MPV 11.6, Neut % (Auto) Not Reportable, Absolute Neuts (auto) 20.4 H, Absolute Lymphs (auto) 0.44 L, Total Counted 100, Neutrophils % (Manual) 92 H, Lymphocytes % (Manual) 2 L, Monocytes % (Manual) 1, Metamyelocytes % 3 H, Myelocytes % 2 H, Nucleated RBCs/100 WBC 3, Diff Path Review May , Platelet Estimate ADEQUATE, Polychromasia 1+, Anisocytosis 1+, Macrocytosis 1+ 04/11/22 06:45: Sodium 144, Potassium 3.6, Chloride 112 H, Carbon Dioxide 26.0, Anion Gap 6, BUN 41 H, Creatinine 0.84, Estim Creat Clear Calc 65.80, Est GFR (MDRD) Af Amer 88, Est GFR (MDRD) Non-Af 72, BUN/Creatinine Ratio 48.8 H, Glucose 321 H, Calcium 6.7 L, Total Bilirubin 0.30, AST 14 L, ALT 15, Alkaline Phosphatase 120 H, Total Protein 5.1 L, Albumin 1.7 L, Globulin 3.4, Albumin/Globulin Ratio 0.5 L 04/11/22 06:45: Vancomycin Trough 19.2 H 04/11/22 11:13: POC Glucose 304 H 04/11/22 16:15: POC Glucose 371 H 04/11/22 22:56: POC Glucose 314 H 04/12/22 03:05: WBC 22.4 H, RBC 3.17 L, Hgb 9.6 L, Hct 31.7 L, MCV 100.0 H, MCH 30.3, MCHC 30.3 L, RDW Std Deviation 53.1 H, RDW Coeff of Lainey 14.8 H, Plt Count 163, MPV 12.4 H, Immature Gran % (Auto) 4.900 H, Neut % (Auto) 90.2 H, Lymph % (Auto) 2.0 L, [place] % (Auto) 2.5, Eos % (Auto) 0.0, Baso % (Auto) 0.4, Absolute Neuts (auto) 20.2 H, Absolute Lymphs (auto) 0.44 L, Nucleated RBC % 2.4 Micro: Microbiology 04/11/22 15:30 Stool C. difficile DNA Amplification - Final 04/06/22 14:45 Blood Culture (Wb) - Arm Right Blood Culture - Final No growth in 5 days. 04/06/22 13:41 Blood Culture (Wb) - Anticubital Left Blood Culture - Final No growth in 5 days. 04/06/22 20:35 Sputum, Tracheal Aspirate Gram Stain - Final 04/06/22 20:35 Sputum, Tracheal Aspirate Respiratory Culture - Final Meth. resistant Staph. aureus 04/06/22 13:50 Urine Catheter - Bravo Urine Culture - Final Escherichia coli 04/06/22 21:40 Urine Catheter - Bravo Legionella Antigen - Final 04/06/22 21:40 Urine Catheter - Bravo Streptococcus pneumoniae Antigen (M - Final 04/06/22 14:50 Nasal Secretion SARS-CoV-2 & FLU Antigen (Rapid) - Final Rhythm Strip Rhythm Strip: A-fib Rate: 130 Physical Exam Const no apparent distress General Appearance: intubated and patient mechanically ventilated HEENT normocephalic, head/scalp atraumatic and moist oral mucous membranes Mouth: endotracheal tube in place and OG tube in place Eyes PERRL, EOMs intact bilaterally and conjunctivae normal Neck supple General: trachea midline Chest inspection of chest normal Resp Auscultation: diminished lung sounds; Negative for rales, rhonchi or wheezes Cardio S1 normal heart sound, S2 normal heart sound, no murmurs, no rub and no gallops Rhythm: abnormal rhythm irregularly irregular GI normal to inspection, nondistended, normoactive bowel sounds, soft to palpation, non-tender and non-distended Extremity General Extremity: edema Skin no rashes or lesions noted Neuro Sensorium / Orientation: sedated on vent Charges/Coding Procedures Hospitalists Procedures: [id number] Critial Care 1st Hr
[2022-04-12 04:16] LABS: ALB/GLOB Ratio 0.6 RATIO (0.9-2.4); AST(SGOT) 19 U/L (15-37); Alanine Aminotransfer ALT/SGPT 20 U/L (13-56); Albumin, Serum 1.8 g/dL (3.2-5.0); Alkaline Phosphatase 118 U/L (45-117); Anion Gap 8 (5-15); BUN 36 mg/dL (7-18); BUN/Creat Ratio 38.3 RATIO (10-20); Calcium,Total 6.3 mg/dL (8.5-10.1); Chloride 114 mmol/L (98-107); Creatinine, Serum 0.94 mg/dL (0.55-1.02); EST Glomerular Filtration Rate 64 mL/min (>60); Est Glom Filt Rate - Afr Amer 77 mL/min (>60); Glucose 357 mg/dL (74-106); Potassium 4.5 mmol/L (3.5-5.1); Protein, Total 4.8 g/dL (6.4-8.2); Sodium Level 147 mmol/L (136-145)
[2022-04-12] MEDS: Propofol 10MG/Ml 1,000 MG/100 ML Bottle 5 MG CONT INF (05:30)
[2022-04-12] MEDS: 0.9% Saline Lock 10 ML Syringe IV ×5 (05:47→19:27)
[2022-04-12] MEDS: Insulin Lispro 100 UNIT/ML INSULN.PEN SC ×4 (05:53→23:54)
[2022-04-12 06:37] LABS: Anisocytosis 1+; Macrocytosis RARE
--- NOTE | 2022-04-12 07:10 | PN.HOSP_ITS ---
Subjective Subjective Patient seen remains on the vent stool for C. difficile came back negative. Blood glucose control not optimal subsequent adjustment made to patient insulin regimen Objective Data Objective Data Vital Signs: Vital Signs Temp Pulse Resp BP Pulse Ox O2 Del Method O2 Flow Rate 102.4 F H 106 H 22 H 118/58 L 95 Mechanical Ventilator 2 04/12/22 07:00 04/12/22 07:00 04/12/22 07:00 04/12/22 07:00 04/12/22 07:00 04/12/22 07:00 04/08/22 13:00 FiO2 30 04/12/22 07:00 Oxygen Flow Rate (L/min) 2 Oxygen Delivery Method Mechanical Ventilator Weight: 83.007 kg Body Mass Index (BMI) 26.6 Intake & Output: Intake and Output for Last 24 Hours 04/10/22 04/11/22 04/12/22 23:59 23:59 23:59 Intake Total 4724.26 / 4765.66 3370.06 / 3405.06 932.81 / 932.81 Output Total 2550 / 2550 1625 / 1625 400 / 400 Balance 2174.26 / 2215.66 1745.06 / 1780.06 532.81 / 532.81 Lab / Micro Data Result Diagrams: 04/12/22 03:05 04/12/22 03:05 Labs: Laboratory Results - last 24 hr 04/11/22 06:45: WBC 22.1 H, RBC 3.03 L, Hgb 9.1 L, Hct 30.9 L, MCV 102.0 H, MCH 30.0, MCHC 29.4 L, RDW Std Deviation 55.8 H, RDW Coeff of Lainey 15.4 H, Plt Count 234, MPV 11.6, Neut % (Auto) Not Reportable, Absolute Neuts (auto) 20.4 H, Absolute Lymphs (auto) 0.44 L, Total Counted 100, Neutrophils % (Manual) 92 H, Lymphocytes % (Manual) 2 L, Monocytes % (Manual) 1, Metamyelocytes % 3 H, Myelocytes % 2 H, Nucleated RBCs/100 WBC 3, Diff Path Review May , Platelet Estimate ADEQUATE, Polychromasia 1+, Anisocytosis 1+, Macrocytosis 1+ 04/11/22 06:45: Sodium 144, Potassium 3.6, Chloride 112 H, Carbon Dioxide 26.0, Anion Gap 6, BUN 41 H, Creatinine 0.84, Estim Creat Clear Calc 65.80, Est GFR (MDRD) Af Amer 88, Est GFR (MDRD) Non-Af 72, BUN/Creatinine Ratio 48.8 H, Glucose 321 H, Calcium 6.7 L, Total Bilirubin 0.30, AST 14 L, ALT 15, Alkaline Phosphatase 120 H, Total Protein 5.1 L, Albumin 1.7 L, Globulin 3.4, Albumin/Globulin Ratio 0.5 L 04/11/22 06:45: Vancomycin Trough 19.2 H 04/11/22 11:13: POC Glucose 304 H 04/11/22 16:15: POC Glucose 371 H 04/11/22 22:56: POC Glucose 314 H 04/12/22 03:05: WBC 22.4 H, RBC 3.17 L, Hgb 9.6 L, Hct 31.7 L, MCV 100.0 H, MCH 30.3, MCHC 30.3 L, RDW Std Deviation 53.1 H, RDW Coeff of Lainey 14.8 H, Plt Count 163, MPV 12.4 H, Immature Gran % (Auto) 4.900 H, Neut % (Auto) 90.2 H, Lymph % (Auto) 2.0 L, [place] % (Auto) 2.5, Eos % (Auto) 0.0, Baso % (Auto) 0.4, Absolute Neuts (auto) 20.2 H, Absolute Lymphs (auto) 0.44 L, Nucleated RBC % 2.4, Anisocytosis 1+, Macrocytosis RARE 04/12/22 03:05: Sodium 147 H, Potassium 4.5, Chloride 114 H, Carbon Dioxide 25.0, Anion Gap 8, BUN 36 H, Creatinine 0.94, Estim Creat Clear Calc 58.80, Est GFR (MDRD) Af Amer 77, Est GFR (MDRD) Non-Af 64, BUN/Creatinine Ratio 38.3 H, Glucose 357 H, Calcium 6.3 L*, Total Bilirubin 0.40, AST 19, ALT 20, Alkaline Phosphatase 118 H, Total Protein 4.8 L, Albumin 1.8 L, Globulin 3.0, Albumin/Globulin Ratio 0.6 L Micro: Microbiology 04/11/22 15:30 Stool C. difficile DNA Amplification - Final 04/06/22 14:45 Blood Culture (Wb) - Arm Right Blood Culture - Final No growth in 5 days. 04/06/22 13:41 Blood Culture (Wb) - Anticubital Left Blood Culture - Final No growth in 5 days. 04/06/22 20:35 Sputum, Tracheal Aspirate Gram Stain - Final 04/06/22 20:35 Sputum, Tracheal Aspirate Respiratory Culture - Final Meth. resistant Staph. aureus 04/06/22 13:50 Urine Catheter - Bravo Urine Culture - Final Escherichia coli 04/06/22 21:40 Urine Catheter - Bravo Legionella Antigen - Final 04/06/22 21:40 Urine Catheter - Bravo Streptococcus pneumoniae Antigen (M - Final 04/06/22 14:50 Nasal Secretion SARS-CoV-2 & FLU Antigen (Rapid) - Final Rhythm Strip Rhythm Strip: A-fib Rate: 130 Physical Exam Narrative GENERAL: Sedated on the vent HEENT: Atraumatic; normocephalic EYES; Anicteric, Normal Conjunctiva NECK; supple, normal thyroid, RESPIRATORY: Diminished to auscultation CARDIOVASCULAR: Irregularly irregular, tachycardic GI: soft, normoactive bowel sounds, : No Renal angle tenderness; EXTREMITIES: Trace bipedal edema, no clubbing, MUSCULOSKELETAL: no muscle wasting NEURO: Sedated on the vent SKIN: No Rash PSYCH; unable to assess Assessment & Plan Assessment/Plan (1) Pneumonia: PLAN: Plan Patient is a 66-year-old lady with multiple comorbidities admitted with altered mental status and generalized weakness. Patient was found to have acute respiratory acidosis imaging studies on admission demonstrated lower lobe pneumonia. Was placed on BiPAP and later intubated 1. Acute on chronic combined respiratory failure ? Secondary to combination of MRSA pneumonia COPD with acute exacerbation and bronchiectasis. Patient was managed on noninvasive ventilation initially with B iPAP and later intubated. Consult placed to pulmonary medicine vent management deferred ? 04/12/2022; remains on the vent management as per pulmonary medicine. 2. MRSA pneumonia ? Patient managed with vancomycin -04/12/2022 7 patient remains on broad-spectrum antibiotic therapy WBC count remains elevated 3. Acute cystitis with E. coli ? Patient is on Zosyn 4. COPD with acute exacerbation ? Patient being managed on the vent Solu-Medrol added to patient's therapy 5. Bronchiectasis with acute acute exacerbation ? Patient is on events as well as antibiotics as described above 6. Paroxysmal A. fib with RVR ? Patient is on beta-blockers as well as Xarelto 7. Acute diarrhea ? Attributed to patient tube feeding stool for C. difficile has however been sent to rule out infectious etiology ? 04/12/2022; stool cultures negative for C. difficile 8. Essential hypertension ? Patient blood pressure stable 9. Diabetes mellitus type II -patient's oral hypoglycemics held. Placed on long acting insulin, Accu-Cheks a.c. q6 with sliding scale insulin. Patient blood glucose levels not optimal further adjustment made to patient insulin regimen ? 04/12/2022; further adjustment made to patient insulin regimen 10. Acute kidney injury ? Prerenal resolved with rehydration. Kidney ultrasound demonstrated hypodensities in both kidneys nephrology following 11. Abnormal thyroid function tests -secondary to sick euthyroid syndrome we will monitor 12. Anemia - Secondary to chronic disorder monitoring H&H and transfuse if patient becomes symptomatic or hemoglobin falls below 7 13. Rheumatoid arthritis, -Leflunomide on hold for now 14. Hypocalcemia ? Secondary to hypoalbuminemia. Additional calcium given 15. DVT PPx -on Xarelto Total critical care time spent evaluating patient, review of diagnostic data, subsequent adjustment in therapy as well as discussion with other providers involved in patient's care; 55-minute Charges/Coding Visit Charges Inpatient E&M: 67113 Subs Hosp L3 Procedures Hospitalists Procedures: [id number] Critial Care 1st Hr
[2022-04-12] MEDS: Furosemide 40 MG/4 ML Vial IV ×2 (08:23→19:27)
[2022-04-12] MEDS: Rivaroxaban 20 MG Tablet PO ×2 (08:23→08:30)
[2022-04-12] MEDS: Chlorhexidine 15 ML PO ×2 (08:24→21:27)
[2022-04-12] MEDS: Metoprolol Tartrate 100 MG Tablet 150 MG GT ×2 (08:28→21:13)
[2022-04-12 09:56] LABS: Bedside Glucose 327 mg/dL (74-106)
[2022-04-12] MEDS: Insulin Glargine-YFGN 100 UNIT/ML Pen 50 UNIT SC ×2 (10:41→23:53)
[2022-04-12] MEDS: QUEtiapine 25 MG Tablet 50 MG GT ×2 (10:43→21:13)
[2022-04-12] MEDS: Propofol 10MG/Ml 1,000 MG/100 ML Bottle 12.5 MG CONT INF ×2 (11:55→18:40)
[2022-04-12] MEDS: Amiodarone 360 MG in Dextrose 5% Viaflo Bag 192.8 ML 33.2999999999999972 MG CONT INF (13:15)
[2022-04-12] MEDS: Vital AF 1.2 Cal Liquid 1,000 ML 55 ML GT (13:29)
--- NOTE | 2022-04-12 13:46 | PN.CARD_ITS ---
Subjective Subjective Patient still on a ventilator A. fib with RVR Discussed with the nursing staff Objective Data Vital Signs: Vital Signs Temp Pulse Resp BP Pulse Ox O2 Del Method O2 Flow Rate 102.4 F H 146 H 18 145/71 H 95 Mechanical Ventilator 2 04/12/22 07:00 04/12/22 10:28 04/12/22 10:28 04/12/22 08:28 04/12/22 10:28 04/12/22 08:00 04/08/22 13:00 FiO2 30 04/12/22 10:28 Oxygen Flow Rate (L/min) 2 Oxygen Delivery Method Mechanical Ventilator Weight: 183 lb Body Mass Index (BMI) 26.6 Intake & Output: Intake and Output for Last 24 Hours 04/10/22 04/11/22 04/12/22 23:59 23:59 23:59 Intake Total 4724.26 / 4765.66 3370.06 / 3405.06 1795.85 / 1795.85 Output Total 2550 / 2550 1625 / 1625 3200 / 3200 Balance 2174.26 / 2215.66 1745.06 / 1780.06 -1404.15 / -1404.15 Lab / Micro Data Result Diagrams: 04/12/22 03:05 04/12/22 03:05 Labs: Laboratory Results - last 24 hr 04/11/22 16:15: POC Glucose 371 H 04/11/22 22:56: POC Glucose 314 H 04/12/22 03:05: WBC 22.4 H, RBC 3.17 L, Hgb 9.6 L, Hct 31.7 L, MCV 100.0 H, MCH 30.3, MCHC 30.3 L, RDW Std Deviation 53.1 H, RDW Coeff of Lainey 14.8 H, Plt Count 163, MPV 12.4 H, Immature Gran % (Auto) 4.900 H, Neut % (Auto) 90.2 H, Lymph % (Auto) 2.0 L, [place] % (Auto) 2.5, Eos % (Auto) 0.0, Baso % (Auto) 0.4, Absolute Neuts (auto) 20.2 H, Absolute Lymphs (auto) 0.44 L, Nucleated RBC % 2.4, Anisocytosis 1+, Macrocytosis RARE 04/12/22 03:05: Sodium 147 H, Potassium 4.5, Chloride 114 H, Carbon Dioxide 25.0, Anion Gap 8, BUN 36 H, Creatinine 0.94, Estim Creat Clear Calc 58.80, Est GFR (MDRD) Af Amer 77, Est GFR (MDRD) Non-Af 64, BUN/Creatinine Ratio 38.3 H, Glucose 357 H, Calcium 6.3 L*, Total Bilirubin 0.40, AST 19, ALT 20, Alkaline Phosphatase 118 H, Total Protein 4.8 L, Albumin 1.8 L, Globulin 3.0, Albumin/Globulin Ratio 0.6 L 04/12/22 05:53: POC Glucose 327 H Micro: Microbiology 04/11/22 15:30 Stool C. difficile DNA Amplification - Final 04/06/22 14:45 Blood Culture (Wb) - Arm Right Blood Culture - Final No growth in 5 days. 04/06/22 13:41 Blood Culture (Wb) - Anticubital Left Blood Culture - Final No growth in 5 days. Rhythm Strip Rhythm Strip: A-fib Rate: 130 Cardiology Labs/Tests 04/12/22 03:05: WBC 22.4 H, RBC 3.17 L, Hgb 9.6 L, Hct 31.7 L, MCV 100.0 H, MCH 30.3, MCHC 30.3 L, Plt Count 163, MPV 12.4 H, Immature Gran % (Auto) 4.900 H, Neut % (Auto) 90.2 H, Lymph % (Auto) 2.0 L, [place] % (Auto) 2.5, Eos % (Auto) 0.0, Baso % (Auto) 0.4, Absolute Neuts (auto) 20.2 H, Nucleated RBC % 2.4 04/12/22 03:05: Sodium 147 H, Potassium 4.5, Chloride 114 H, Carbon Dioxide 25.0, Anion Gap 8, BUN 36 H, Creatinine 0.94, Est GFR (MDRD) Af Amer 77, Est GFR (MDRD) Non-Af 64, BUN/Creatinine Ratio 38.3 H, Glucose 357 H, Calcium 6.3 L*, Total Bilirubin 0.40 Rhythm: EKG: ECHO: Stress Test: Cardiac Cath: PCI: CT Surgery: Holter monitor: EPS: PPM: CXR: Chest CT Scan: Assessment & Plan Assessment/Plan (1) Acute and chronic respiratory failure, unspecified whether with hypoxia or hypercapnia: (2) KAY (acute kidney injury): (3) Pneumonia: (4) Chronic atrial fibrillation with rapid ventricular response: (5) Type 2 diabetes mellitus: QUALIFIERS: Diabetes mellitus superintendent terminal insulin use: without superintendent terminal use Diabetes mellitus complication status: without complication Qualified Code(s): E11.9 - Type 2 diabetes mellitus without complications (6) COPD (chronic obstructive pulmonary disease): QUALIFIERS: COPD type: unspecified COPD Qualified Code(s): J44.9 - Chronic obstructive pulmonary disease, unspecified PLAN: Plan 66-year-old patient with mild admitted comorbidities She was admitted with altered mental status with generalized weakness and noted she had acute on chronic respiratory failure with MRSA pneumonia She had a longstanding history of COPD, acute renal insufficiency, diabetes mellitus, bronchiectasis and she has atrial fibrillation with RVR Currently on anticoagulation with Xarelto and she has been on beta-ruby Today noted distally she had a past ventricular rate Cardiac care plan recommendations; 1. Added amiodarone IV, will continue on beta-ruby as well as anticoa gulation with Xarelto To continue monitoring hemoglobin due to anemia. Repeat echocardiogram showed LV function is preserved ejection fraction 65% trivial MR with trivial TR. And will continue to monitor and follow-up clinically. From cardiac standpoint if she has a controlled rate no further cardiac input will be required And will sign off and will be available if further cardiac need arise.
[2022-04-12 13:55] LABS: Bedside Glucose 257 mg/dL (74-106)
--- NOTE | 2022-04-12 16:58 | NURSING ---
education re chronic illness deferred till acute illness resolving
--- NOTE | 2022-04-12 18:08 | RAD_ITS ---
STUDY: X-RAY CHEST REASON FOR EXAM: Female, 66 years old. line placement TECHNIQUE: Single AP portable view of the chest. COMPARISON: 04/07/2022 FINDINGS: Interval placement of right upper extremity PICC with tip the catheter overlying the junction of the right atrium and spur vena cava. Endotracheal tube and nasogastric tube both which are unchanged. Decrease in alveolar opacities in both lungs consistent with improved bilateral pneumonia. There is no demonstrated pleural abnormality. Normal size heart. Normal mediastinum and jessica. Normal visualized pulmonary arteries. Normal visualized aortic arch and descending thoracic aorta. Normal visualized thoracic spine. Normal visualized ribs, clavicles, and shoulders. There is no demonstrated abnormality of the visualized soft tissue structures of the upper abdomen. RAD/CXR for Line Placement IMPRESSION: 1. Interval placement of right upper extremity PICC with tip the catheter overlying the junction of the right atrium and spur vena cava. 2. Endotracheal tube and nasogastric tube both which are unchanged. 3. Improved bilateral pneumonia. Electronically Signed: Jourdan Soto MD at 18:23 EST ,
[2022-04-12] MEDS: Amiodarone 360 MG in Dextrose 5% Viaflo Bag 192.8 ML 16.6999999999999993 MG CONT INF (18:51)
[2022-04-12 19:01] LABS: Bedside Glucose 330 mg/dL (74-106)
[2022-04-12 21:01] LABS: Vancomycin, Trough Level 18.7 ug/mL (5.0-15.0)
[2022-04-12] MEDS: CHLORHEXIDINE GLUC 2% CLOTH 1 EACH TOWELETTE TOPICAL (21:14)
--- NOTE | 2022-04-12 21:16 | PCM.RX.CS ---
Consult Pharmacy has been consulted to manage selected antiobiotic: Vancomycin Type of Consult: Follow-up Prior Doses of Antibiotics Received/Current Regimen: Medications Vancomycin HCl 750 mg/ Sodium (Chloride) 265 mls @ 250 mls/hr IV Q12H ELENA Last Admin: 04/12/22 20:44 Dose: Infused Labs: Sodium 147 mmol/L (136-145) H 04/12/22 03:05 Potassium 4.5 mmol/L (3.5-5.1) 04/12/22 03:05 Chloride 114 mmol/L (98-107) H 04/12/22 03:05 Carbon Dioxide 25.0 mmol/L (21.0-32.0) 04/12/22 03:05 Anion Gap 8 (5-15) 04/12/22 03:05 BUN 36 mg/dL (7-18) H 04/12/22 03:05 Creatinine 0.94 mg/dL (0.55-1.02) 04/12/22 03:05 Est GFR (MDRD) Af Amer 77 mL/min (>60) 04/12/22 03:05 Est GFR (MDRD) Non-Af 64 mL/min (>60) 04/12/22 03:05 BUN/Creatinine Ratio 38.3 RATIO (10-20) H 04/12/22 03:05 Glucose 357 mg/dL (74-106) H 04/12/22 03:05 Vancomycin Trough 18.7 ug/mL (5.0-15.0) H 04/12/22 19:25 Random Vancomycin 14.5 ug/mL (0.0-15.0) 04/09/22 06:05 Microbiology: Microbiology 04/11/22 15:30 Stool C. difficile DNA Amplification - Final 04/06/22 14:45 Blood Culture (Wb) - Arm Right Blood Culture - Final No growth in 5 days. 04/06/22 13:41 Blood Culture (Wb) - Anticubital Left Blood Culture - Final No growth in 5 days. 04/06/22 20:35 Sputum, Tracheal Aspirate Gram Stain - Final 04/06/22 20:35 Sputum, Tracheal Aspirate Respiratory Culture - Final Meth. resistant Staph. aureus 04/06/22 13:50 Urine Catheter - Bravo Urine Culture - Final Escherichia coli 04/06/22 21:40 Urine Catheter - Bravo Legionella Antigen - Final 04/06/22 21:40 Urine Catheter - Bravo Streptococcus pneumoniae Antigen (M - Final 04/06/22 14:50 Nasal Secretion SARS-CoV-2 & FLU Antigen (Rapid) - Final Weight used for dosin kg Estimated Creatinine Clearance: 59 Goal Trough: 15-20 mcg/mL Pharmacy Plan for Drug Dosing: Vancomycin trough level of 18.7 was within target range of 15-20. Due to late hanging of the previous dose, the trough was approximately 9 hours. Dosing calculator estimated 15.9mcg/ml, so will continue same dosing and re-draw a trough in two days. Pharmacy Service will continue to monitor and adjust dosing as required. Follow-Up Labs: Trough Vancomycin Labs to be done on [date and time ordered]: 04/14/22 @[id number]
[2022-04-13] VITALS (36 sets, daily range): BP systolic 104–182; BP diastolic 67–108; PULSE 124–170; RESP 12–24; TEMP 38.6–40.1; O2SAT 92–100
[2022-04-13 00:30] LABS: Bedside Glucose 321 mg/dL (74-106)
[2022-04-13] MEDS: Propofol 10MG/Ml 1,000 MG/100 ML Bottle 12.5 MG CONT INF (01:35)
[2022-04-13] MEDS: Ipratropium/Albuterol Sulfate 3 ML AMPUL.NEB INHALATION (01:40)
[2022-04-13 04:11] LABS: Absolute Lymphocyte Count 0.63 X10^3/uL (0.83-4.51); Absolute Neutrophil Count 22.9 X10^3/uL (2.0-7.7); Basophil# 0.07 X10^3/uL; Basophil% 0.3 % (0-1); Hematocrit 32.2 % (37-47); Hemoglobin 9.7 g/dL (12.0-15.0); Lymphocyte # 0.63 X10^3/ul (0.83-4.51); Lymphocyte % 2.5 % (19-41); Mean Corp Hgb Conc 30.1 g/dL (32-36); Mean Corpuscular Hgb 30.5 pg (27.0-32.0); Mean Corpuscular Volume 101.3 fL (81-99); Mean Platelet Vol. 12.6 fl (6.2-12.0); Monocyte# 0.79 X10^3/uL; Monocyte% 3.1 % (0-10); NRBC Flagged by Analyzer 1.7 % (0-5); Neutrophil # 22.85 X10^3/uL (2.7-7.7); POSITIVE DIFFERENTIAL YES; Platelet Count 224 K/mm3 (150-450); RBC Distribution Width CV 15.1 % (11.6-14.6); RBC Distribution Width SD 54.2 fl (35.1-43.9); Red Blood Count 3.18 M/mm3 (4.2-5.4); White Blood Count 25.4 K/mm3 (4.4-11.0)
[2022-04-13 04:23] LABS: Differential Indicated SCAN CRITERIA MET
[2022-04-13] MEDS: Insulin Lispro 100 UNIT/ML INSULN.PEN SC ×4 (05:12→23:32)
[2022-04-13 05:34] LABS: ALB/GLOB Ratio 0.6 RATIO (0.9-2.4); AST(SGOT) 13 U/L (15-37); Alanine Aminotransfer ALT/SGPT 20 U/L (13-56); Albumin, Serum 1.9 g/dL (3.2-5.0); Alkaline Phosphatase 95 U/L (45-117); Anion Gap 7 (5-15); BUN 37 mg/dL (7-18); BUN/Creat Ratio 38.9 RATIO (10-20); Calcium,Total 6.6 mg/dL (8.5-10.1); Chloride 108 mmol/L (98-107); Creatinine, Serum 0.95 mg/dL (0.55-1.02); EST Glomerular Filtration Rate 63 mL/min (>60); Est Glom Filt Rate - Afr Amer 76 mL/min (>60); Estimated Creatinine Clearance 58.18 ml/min; Globulin 3.2 g/dL (2.2-4.2); Glucose 321 mg/dL (74-106); Potassium 3.9 mmol/L (3.5-5.1); Protein, Total 5.1 g/dL (6.4-8.2); Sodium Level 145 mmol/L (136-145)
[2022-04-13 05:36] LABS: Bedside Glucose 300 mg/dL (74-106)
[2022-04-13 05:37] LABS: CPK Total, Creatine Kinase 65 U/L (26-192); Triglycerides 480 mg/dL
[2022-04-13 06:14] LABS: Anisocytosis 1+; Macrocytosis RARE
[2022-04-13 06:15] LABS: Atypical Lymphocyte 1+ %
--- NOTE | 2022-04-13 07:14 | PN.HOSP_ITS ---
Subjective Subjective Patient remains on the vent, remains febrile with temperature of 102.8. Cooling blankets initiated. Heart rate remains uncontrolled in the 170s patient on amiodarone drip. Blood glucose control still not optimal adjusted methylprednisone dose Objective Data Objective Data Vital Signs: Vital Signs Temp Pulse Resp BP Pulse Ox O2 Del Method O2 Flow Rate 102.8 F H 155 H 20 H 154/90 H 95 Mechanical Ventilator 2 04/13/22 07:00 04/13/22 07:00 04/13/22 07:00 04/13/22 07:00 04/13/22 07:00 04/13/22 07:00 04/08/22 13:00 FiO2 30 04/13/22 07:00 Oxygen Flow Rate (L/min) 2 Oxygen Delivery Method Mechanical Ventilator Weight: 84.935 kg Body Mass Index (BMI) 26.6 Intake & Output: Intake and Output for Last 24 Hours 04/11/22 04/12/22 04/13/22 23:59 23:59 23:59 Intake Total 3370.06 / 3405.06 3687.30 / 3862.30 1418.03 / 1418.03 Output Total 1625 / 1625 4700 / 4700 1250 / 1250 Balance 1745.06 / 1780.06 -1012.70 / -837.70 168.03 / 168.03 Lab / Micro Data Result Diagrams: 04/13/22 04:00 04/13/22 04:00 Labs: Laboratory Results - last 24 hr 04/12/22 05:53: POC Glucose 327 H 04/12/22 12:53: POC Glucose 257 H 04/12/22 17:42: POC Glucose 330 H 04/12/22 19:25: Vancomycin Trough 18.7 H 04/12/22 23:53: POC Glucose 321 H 04/13/22 04:00: WBC 25.4 H, RBC 3.18 L, Hgb 9.7 L, Hct 32.2 L, MCV 101.3 H, MCH 30.5, MCHC 30.1 L, RDW Std Deviation 54.2 H, RDW Coeff of Lainey 15.1 H, Plt Count 224, MPV 12.6 H, Immature Gran % (Auto) 4.100 H, Neut % (Auto) 90.0 H, Lymph % (Auto) 2.5 L, [place] % (Auto) 3.1, Eos % (Auto) 0.0, Baso % (Auto) 0.3, Absolute Neuts (auto) 22.9 H, Absolute Lymphs (auto) 0.63 L, Nucleated RBC % 1.7, Atypical Lymphocytes 1+, Anisocytosis 1+, Macrocytosis RARE 04/13/22 04:00: Sodium 145, Potassium 3.9, Chloride 108 H, Carbon Dioxide 30.0, Anion Gap 7, BUN 37 H, Creatinine 0.95, Estim Creat Clear Calc 58.18, Est GFR (MDRD) Af Amer 76, Est GFR (MDRD) Non-Af 63, BUN/Creatinine Ratio 38.9 H, Glucose 321 H, Calcium 6.6 L, Total Bilirubin 0.30, AST 13 L, ALT 20, Alkaline Phosphatase 95, Total Protein 5.1 L, Albumin 1.9 L, Globulin 3.2, Albumin/Globulin Ratio 0.6 L 04/13/22 04:00: Total Creatine Kinase 65, Triglycerides 480 H 04/13/22 05:12: POC Glucose 300 H Micro: Microbiology 04/11/22 15:30 Stool C. difficile DNA Amplification - Final 04/06/22 14:45 Blood Culture (Wb) - Arm Right Blood Culture - Final No growth in 5 days. 04/06/22 13:41 Blood Culture (Wb) - Anticubital Left Blood Culture - Final No growth in 5 days. 04/06/22 20:35 Sputum, Tracheal Aspirate Gram Stain - Final 04/06/22 20:35 Sputum, Tracheal Aspirate Respiratory Culture - Final Meth. resistant Staph. aureus 04/06/22 13:50 Urine Catheter - Bravo Urine Culture - Final Escherichia coli 04/06/22 21:40 Urine Catheter - Bravo Legionella Antigen - Final 04/06/22 21:40 Urine Catheter - Bravo Streptococcus pneumoniae Antigen (M - Final 04/06/22 14:50 Nasal Secretion SARS-CoV-2 & FLU Antigen (Rapid) - Final Radiography Diagnostic Testing: Radiology Impression Chest X-Ray 04/12/22 18:08 IMPRESSION: 1. Interval placement of right upper extremity PICC with tip the catheter overlying the junction of the right atrium and spur vena cava. 2. Endotracheal tube and nasogastric tube both which are unchanged. 3. Improved bilateral pneumonia. Electronically Signed: Jourdan Soto MD at 18:23 EST , Rhythm Strip Rhythm Strip: A-fib Rate: 130 Physical Exam Narrative GENERAL: Nonpurposeful movement on the vent HEENT: Atraumatic; normocephalic EYES; Anicteric, Normal Conjunctiva NECK; supple, normal thyroid, RESPIRATORY: Diminished to auscultation CARDIOVASCULAR: Irregularly irregular, tachycardic GI: soft, normoactive bowel sounds, : No Renal angle tenderness; EXTREMITIES: Trace bipedal edema, no clubbing, MUSCULOSKELETAL: no muscle wasting NEURO: Sedated on the vent SKIN: No Rash PSYCH; unable to assess Assessment & Plan Assessment/Plan (1) Pneumonia: PLAN: Plan Patient is a 66-year-old lady with multiple comorbidities admitted with altered mental status and generalized weakness. Patient was found to have acute respiratory acidosis imaging studies on admission demonstrated lower lobe pneumonia. Was placed on BiPAP and later intubated 1. Acute on chronic combined respiratory failure ? Secondary to combination of MRSA pneumonia COPD with acute exacerbation and bronchiectasis. Patient was managed on noninvasive ventilation initially with BiPAP and later intubated. Consult placed to pulmonary medicine vent management deferred ? 04/12/2022; remains on the vent management as per pulmonary medicine. ?04/13/2022; patient remains on the vent. Vent management as per Dr Kingston with intensive care 2. MRSA pneumonia ? Patient managed with vancomycin -04/12/2022 7 patient remains on broad-spectrum antibiotic therapy WBC count remains elevated ?04/13/2022; patient remains febrile with T-max of 102.8. Cooling blanket initiated 3. Acute cystitis with E. coli ? Patient is on Zosyn 4. COPD with acute exacerbation ? Patient being managed on the vent Solu-Medrol added to patient's therapy 5. Bronchiectasis with acute acute exacerbation ? Patient is on events as well as antibiotics as described above 6. Paroxysmal A. fib with RVR ? Patient is on beta-blockers as well as Xarelto 7. Acute diarrhea ? Attributed to patient tube feeding stool for C. difficile has however been sent to rule out infectious etiology ? 04/12/2022; stool cultures negative for C. difficile 8. Essential hypertension ? Patient blood pressure stable 9. Diabetes mellitus type II -patient's oral hypoglycemics held. Placed on long acting insulin, Accu-Cheks a.c. q6 with sliding scale insulin. Patient blood glucose levels not optimal further adjustment made to patient insulin regimen ? 04/12/2022; further adjustment made to patient insulin regimen ? 04/13/2022; adjusted patient Solu-Medrol dose with subsequent anticipation and blood glucose levels 10. Acute kidney injury ? Prerenal resolved with rehydration. Kidney ultrasound demonstrated hypodensities in both kidneys nephrology following 11. Abnormal thyroid function tests -secondary to sick euthyroid syndrome we will monitor 12. Anemia - Secondary to chronic disorder monitoring H&H and transfuse if patient becomes symptomatic or hemoglobin falls below 7 13. Rheumatoid arthritis, -Leflunomide on hold for now 14. Hypocalcemia ? Secondary to hypoalbuminemia. Additional calcium given 15. DVT PPx -on Xarelto Total critical care time spent evaluating patient, review of diagnostic data, subsequent adjustment in therapy as well as discussion with other providers involved in patient's care; 55-minute Charges/Coding Multi Select Codes Hospitalists' Procedures Procedures: [id number] [facility] 1st Hr
--- NOTE | 2022-04-13 07:16 | PN.CC_ITS ---
Assessment & Plan Assessment/Plan (1) Acute and chronic respiratory failure, unspecified whether with hypoxia or hypercapnia: (2) Chronic atrial fibrillation with rapid ventricular response: (3) Bronchiectasis: QUALIFIERS: Bronchiectasis type: uncomplicated Qualified Code(s): J47.9 - Bronchiectasis, uncomplicated (4) Pneumonia: PLAN: Plan RECOMMENDATIONS: 1. Continue to wean FiO2 and PEEP to maintain oxygen saturations at or above 90%. 2. Okay to continue fentanyl. Hold propofol, given rising triglycerides. 3. Discontinue Seroquel. 4. Stop scheduled bronchodilators, given tachycardia. 5. Defer management of atrial fibrillation to cardiology. 6. Obtain follow-up arterial blood gas. 7. Continue tube feeds as tolerated. 8. Given fevers and neurologic status, obtain CT head. 9. Given un-resolving fevers, consider infectious diseases consultation. IMPRESSIONS: 1. Acute on chronic combined respiratory failure secondary to bilateral p neumonia Plan to continue current supportive measures including invasive mechanical vent ilatory support. FiO2 and PEEP can be weaned to maintain oxygen saturations at or above 90%. Continue antimicrobials to address MRSA noted on sputum culture. The patient will be maintained on fentanyl for pain control. Plan to hold scheduled bronchodilators, given persistent tachycardia. However, steroids will be continued. Continue tube feeds as tolerated. Continue attempts at gentle diuresis as tolerated by hemodynamics and renal function. Given the patient's persistent fevers, propofol will be placed on hold due to elevated triglyceride levels and Seroquel will be discontinued. Repeat cultures are currently pending. 2. Encephalopathy Initially felt to be metabolic in etiology. Plan to obtain follow-up arterial blood gas this morning. If ABG is unremarkable, will obtain CT head. If the patient's neurologic status does not begin to improve, she may require additional work-up including LP and/or MRI and EEG. Plan to check TSH and ammonia level as well. 3. Acute kidney injury secondary to sepsis d/t pneumonia Resolved. Kidney function has improved with stabilization of hemodynamics. Continue to monitor urine output. No current indication for renal replacement therapy. 4. A. fib with RVR Continue systemic anticoagulation per baseline. Cardiology is following to assist with medical management of atrial fibrillation. 5. Anemia/hypertension/debility/bronchiectasis/rheumatoid lung disease Complicates care, management, recovery and prognosis. No indication for transfusions at this time. Continue tube feeds as tolerated. TIME: 34 minutes of critical care time, independent of procedures, was spent addressing the patient's acute on chronic combined respiratory failure, MRSA pneumonia, atrial fibrillation with RVR, acute kidney injury, review of all data and collaboration with the care team. Subjective Subjective The patient was seen and examined at the bedside this morning. Events from the last 24 hours have been reviewed. The patient is currently afebrile, hemodynamically stable and maintaining appropriate oxygen saturations on assist control mode mechanical ventilation with an FiO2 requirement of 30% and PEEP of 5. The patient's Precedex was discontinued yesterday and she was placed back on propofol after she developed high-grade fevers. Despite this, the patient remains febrile with a temperature this morning of 102.8 ?F. She is currently sedated on propofol and fentanyl, but will not follow simple commands. White count remains elevated at 25,000. Creatinine remains within normal limits. Triglycerides are increased at 480. The patient was placed on Seroquel yesterday. That medication was discontinued this morning. Objective Data Objective Data The patient's most recent lab work, culture data and imaging studies have all been personally reviewed. Sputum culture dated April 06 was positive for MRSA. Urine culture dated April 06 was positive for E. coli. Repeat blood cultures are currently pending. Vital Signs: Vital Signs Temp Pulse Resp BP Pulse Ox O2 Del Method O2 Flow Rate 102.8 F H 155 H 20 H 154/90 H 95 Mechanical Ventilator 2 04/13/22 07:00 04/13/22 07:00 04/13/22 07:00 04/13/22 07:00 04/13/22 07:00 04/13/22 07:00 04/08/22 13:00 FiO2 30 04/13/22 07:00 Oxygen Flow Rate (L/min) 2 Oxygen Delivery Method Mechanical Ventilator Weight: 187 lb 4 oz Body Mass Index (BMI) 26.6 Intake & Output: Intake and Output for Last 24 Hours 04/11/22 04/12/22 04/13/22 23:59 23:59 23:59 Intake Total 3370.06 / 3405.06 3687.30 / 3862.30 1418.03 / 1418.03 Output Total 1625 / 1625 4700 / 4700 1250 / 1250 Balance 1745.06 / 1780.06 -1012.70 / -837.70 168.03 / 168.03 Lab / Micro Data Attestation: I reviewed the patient's lab results. Result Diagrams: 04/13/22 04:00 04/13/22 04:00 Labs: Laboratory Results - last 24 hr 04/12/22 05:53: POC Glucose 327 H 04/12/22 12:53: POC Glucose 257 H 04/12/22 17:42: POC Glucose 330 H 04/12/22 19:25: Vancomycin Trough 18.7 H 04/12/22 23:53: POC Glucose 321 H 04/13/22 04:00: WBC 25.4 H, RBC 3.18 L, Hgb 9.7 L, Hct 32.2 L, MCV 101.3 H, MCH 30.5, MCHC 30.1 L, RDW Std Deviation 54.2 H, RDW Coeff of [place]ain[place] 15.1 H, Plt Count 224, MPV 12.6 H, Immature Gran % (Auto) 4.100 H, Neut % (Auto) 90.0 H, Lymph % (Auto) 2.5 L, [place] % (Auto) 3.1, Eos % (Auto) 0.0, Baso % (Auto) 0.3, Absolute Neuts (auto) 22.9 H, Absolute Lymphs (auto) 0.63 L, Nucleated RBC % 1.7, Atypical Lymphocytes 1+, Anisocytosis 1+, Macrocytosis RARE 04/13/22 04:00: Sodium 145, Potassium 3.9, Chloride 108 H, Carbon Dioxide 30.0, Anion Gap 7, BUN 37 H, Creatinine 0.95, Estim Creat Clear Calc 58.18, Est GFR (MDRD) Af Amer 76, Est GFR (MDRD) Non-Af 63, BUN/Creatinine Ratio 38.9 H, Glucose 321 H, Calcium 6.6 L, Total Bilirubin 0.30, AST 13 L, ALT 20, Alkaline Phosphatase 95, Total Protein 5.1 L, Albumin 1.9 L, Globulin 3.2, Albumin/Globulin Ratio 0.6 L 04/13/22 04:00: Total Creatine Kinase 65, Triglycerides 480 H 04/13/22 05:12: POC Glucose 300 H Micro: Microbiology 04/11/22 15:30 Stool C. difficile DNA Amplification - Final 04/06/22 14:45 Blood Culture (Wb) - Arm Right Blood Culture - Final No growth in 5 days. 04/06/22 13:41 Blood Culture (Wb) - Anticubital Left Blood Culture - Final No growth in 5 days. 04/06/22 20:35 Sputum, Tracheal Aspirate Gram Stain - Final 04/06/22 20:35 Sputum, Tracheal Aspirate Respiratory Culture - Final Meth. resistant Staph. aureus 04/06/22 13:50 Urine Catheter - Bravo Urine Culture - Final Escherichia coli 04/06/22 21:40 Urine Catheter - Bravo Legionella Antigen - Final 04/06/22 21:40 Urine Catheter - Bravo Streptococcus pneumoniae Antigen (M - Final 04/06/22 14:50 Nasal Secretion SARS-CoV-2 & FLU Antigen (Rapid) - Final Radiography Diagnostic Testing: Radiology Impression Chest X-Ray 04/12/22 18:08 IMPRESSION: 1. Interval placement of right upper extremity PICC with tip the catheter overlying the junction of the right atrium and spur vena cava. 2. Endotracheal tube and nasogastric tube both which are unchanged. 3. Improved bilateral pneumonia. Electronically Signed: Jourdan Soto MD at 18:23 EST , Rhythm Strip Rhythm Strip: A-fib Rate: 130 Physical Exam Const no apparent distress General Appearance: intubated and patient mechanically ventilated HEENT normocephalic, head/scalp atraumatic and moist oral mucous membranes Mouth: endotracheal tube in place and OG tube in place Eyes PERRL, EOMs intact bilaterally and conjunctivae normal Neck supple General: trachea midline Chest inspection of chest normal Resp Auscultation: diminished lung sounds; Negative for rales, rhonchi or wheezes Cardio S1 normal heart sound, S2 normal heart sound, no murmurs, no rub and no gallops Rate: tachycardic Rhythm: abnormal rhythm irregularly irregular GI normal to inspection, nondistended, normoactive bowel sounds, soft to palpation, non-tender and non-distended Extremity General Extremity: edema Skin no rashes or lesions noted Neuro Neuro Narrative: Currently nonresponsive to verbal and tactile stimulation. Sensorium / Orientation: sedated on vent Charges/Coding Procedures Hospitalists Procedures: [id number] [facility] 1st Hr
[2022-04-13 07:45] LABS: Allen Test Positive; Base Excess 4 mmol/L (-2 to +2); Bicarbonate 27.8 mmol/L (22-26); Blood Gas Specimen Type ART; FI02 30; Mode AC; O2 Delivery Device Adult Vent; PEEP 5; PO2 70 mmHG (75-100); RR 12; SITE L Radial; SO2 94 % (95-99); Total Carbon Dioxide 29 mmol/L; Vt 480; pCO2 41.5 mmHg (35-45); pH 7.43 (7.35-7.45)
[2022-04-13] MEDS: Chlorhexidine 15 ML PO ×2 (07:46→20:46)
[2022-04-13] MEDS: Amiodarone 360 MG in Dextrose 5% Viaflo Bag 192.8 ML 16.6999999999999993 MG CONT INF ×2 (07:47→18:32)
[2022-04-13] MEDS: Metoprolol Tartrate 100 MG Tablet 150 MG GT ×2 (08:19→20:46)
[2022-04-13] MEDS: Rivaroxaban 20 MG Tablet PO (08:20)
[2022-04-13] MEDS: Vital AF 1.2 Cal Liquid 1,000 ML 55 ML GT (08:23)
[2022-04-13] MEDS: Acetaminophen 650 MG/20 ML UDC GT ×2 (08:29→17:33)
[2022-04-13] MEDS: Insulin Glargine-YFGN 100 UNIT/ML Pen 50 UNIT SC ×2 (08:35→23:32)
--- NOTE | 2022-04-13 08:36 | CT_ITS ---
We are attempting to reach an attending provider to discuss findings. An addendum with communication details will be sent when the communication is complete. INDICATION: Unresponsive EXAMINATION: CT BRAIN - CT Head Stroke Protocol W/O Contrast Injection TECHNIQUE: Multiple axial images were obtained of the head without intravenous contrast. A radiation dose optimization technique was used for this scan. IV Contrast dosage and agent: None. This study was provided for interpretation at 9:33 AM 04/13/2022. COMPARISON: April 06, 2022 CT head, unresponsive episode, May 11, 2019 CT mastoids. FINDINGS: BRAIN PARENCHYMA: No intra- or extra-axial hemorrhage. No evidence of acute infarct. No intracranial mass or mass effect. There is preservation of the soriano/white matter interface. Posterior fossa structures are unremarkable. CSF SPACES: There is visualized mild atrophy. CALVARIUM, SKULL BASE, PARANASAL SINUSES AND MASTOID AIR CELLS: Clear. No discrete lytic or blastic abnormalities. ORBITS: Both globes, extraocular muscles, optic nerves and retrobulbar fat appear unremarkable. ASPECTS Score for Acute Strokes: 10 This visualized persistent opacification of the right maxillary sinus. There is persistent opacification of the bilateral mastoid air cells. CT/STROKE Brain/Head without Cont IMPRESSION: Persistent right side maxillary sinusitis with an air-fluid level. Persistent bilateral mastoiditis with air-fluid levels within the left greater than right mastoid air cells. Fluid surrounding the right-sided ossicles consistent with mastoiditis persistent right-sided otitis media. No visualized acute hemorrhage infarct or edema. If findings are suspicious for acute infarct recommend dedicated further imaging such as CT angiogram of the brain or MRI. Electronically Signed: Gracie Mercado MD at 9:38 EST Reading Location ID and State: [facility] / [place] Tel , Service support ,
[2022-04-13 09:19] LABS: Thyroid Stim Hormone (TSH) 0.09 uIU/mL (0.358-3.74)
--- NOTE | 2022-04-13 10:49 | CON.PCM.ID_ITS ---
Assessment & Plan Assessment/Plan (1) Pneumonia: PLAN: sespsis due to MRSA pneumonia with resp failure. Ucx with ecoli but no pyuria on UA. Ongoing high fever, lymphopenia. UAgs neg. Covid and flu Ag neg on admit. Head CT this AM shows bilat mastoiditis. Cont vanc/zosyn. With ongoing fever, will check resp viral panel and CT chest/abd/pelvis. Primary complaint at home was abd cramping, n/v/d. Cdiff neg here. Will follow, thank you (2) Atrial fibrillation with rapid ventricular response: (3) Acute and chronic respiratory failure, unspecified whether with hypoxia or hypercapnia: (4) Metabolic encephalopathy: (5) COPD (chronic obstructive pulmonary disease): QUALIFIERS: COPD type: unspecified COPD Qualified Code(s): J44.9 - Chronic obstructive pulmonary disease, unspecified (6) Diarrhea: HPI Consult Data Date of Consult: 04/13/22 HPI Narrative Reason for Consultation: fever HPI Narrative: BOBBY FLORES, is a 66 F with COPD, afib, RA, presented 04/06 with about 7-10 days not feeling well, fatigue, fever, chills, abd cramping, n/v/d, headache. Has chronic cough and dyspnea, not changed. No dysuria per . He had URI with cough, headache, fatigue around the same time she started getting sick; he denies any change in taste/smell. Reports she has had covid vaccine x3. Admitted to icu, on vanc/zosyn, still high fever on vent. ROS unobtainable due to intubation/sedation. [facility] Medical History Abdominal cramping Anemia Asthma Atrial fibrillation Bronchitis Chest pain Diabetes Former smoker GERD (gastroesophageal reflux disease) Hypertension Hyperthyroidism Irregular heart beat Lack of appetite Nausea On home oxygen therapy Pneumonia Rheumatoid arthritis Home Medications acetaminophen 500 mg tablet 1,000 mg PO Q6H PRN PAIN 01/30/19 [History Last Taken 04/06/22] gabapentin 100 mg capsule 200 mg PO BID NERVE PAIN 05/10/19 [History Last Taken 04/06/22] ipratropium 0.5 mg-albuterol 3 mg (2.5 mg base)/3 mL nebulization soln 3 ml inhalation Q6H.RT copd 05/10/19 [History Last Taken 09/10/20] ondansetron HCl 4 mg tablet (Zofran) 4 mg PO Q6H nausea #10 tabs 08/27/20 [Rx Last Taken 04/06/22] budesonide 0.5 mg/2 mL suspension for nebulization 0.5 mg inhalation BID sob 09/02/20 [History Last Taken 09/10/20] budesonide-formoterol HFA 160 mcg-4.5 mcg/actuation aerosol inhaler (Symbicort) 2 puff inhalation BID LUNGS 04/06/22 [History Last Taken 04/06/22] cholecalciferol (vitamin D3) 1,250 mcg (50,000 unit) capsule 50,000 unit PO QMONTH SUPPLEMENT 04/06/22 [History Last Taken Unknown] dextromethorphan-guaifenesin 30 mg-600 mg tablet extended hmmihsd28 hr (Mucinex DM) 1 tab PO Q12H CHEST CONGESTION 04/06/22 [History Last Taken 04/06/22] ferrous gluconate 324 mg (37.5 mg iron) tablet 324 mg PO BID SUPPLEMENT 04/06/22 [History Last Taken 03/31/22] gabapentin 400 mg capsule 400 mg PO TID NERVE PAIN 04/06/22 [History Last Taken 04/05/22] leflunomide 20 mg tablet 20 mg PO DAILY ARTHRITIS 04/06/22 [History Last Taken 04/06/22] metoprolol succinate 100 mg tablet,extended release 24 hr 100 mg PO DAILY HEART 04/06/22 [History Last Taken 04/06/22] omeprazole 40 mg capsule,delayed release 40 mg PO DAILY PRN REFLUX 04/06/22 [History Last Taken Unknown] rivaroxaban 20 mg tablet (Xarelto) 20 mg PO DAILY HEART 04/06/22 [History Last Taken 04/05/22] venlafaxine 37.5 mg capsule,extended release 24 hr 37.5 mg PO DAILY MOOD 04/06/22 [History Last Taken 04/05/22] verapamil 80 mg tablet 40 mg PO Q8 HEART 04/06/22 [History Last Taken 04/06/22] Allergy/AdvReac Type Severity Reaction Status Date / Time No Known Allergies Allergy Verified 09/02/20 16:24 Surgical History H/O: hysterectomy Social History household members: spouse Smoking Status: Former smoker substance use type: does not use Physical Exam Const Constitutional Narrative: intubated/sedated HEENT normocephalic and head/scalp atraumatic Eyes PERRL and EOMs intact bilaterally Neck supple and No nodes Resp Effort and Inspection: mechanically ventilated Auscultation: diminished lung sounds Cardio Rate: tachycardic GI soft to palpation, non-tender and non-distended Extremity General Extremity: Negative for edema Skin no rashes or lesions noted Lab / Micro Data Attestation: I reviewed the patient's lab results. Result Diagrams: 04/13/22 04:00 04/13/22 04:00 Labs: Laboratory Results - last 24 hr 04/12/22 12:53: POC Glucose 257 H 04/12/22 17:42: POC Glucose 330 H 04/12/22 19:25: Vancomycin Trough 18.7 H 04/12/22 23:53: POC Glucose 321 H 04/13/22 04:00: WBC 25.4 H, RBC 3.18 L, Hgb 9.7 L, Hct 32.2 L, MCV 101.3 H, MCH 30.5, MCHC 30.1 L, RDW Std Deviation 54.2 H, RDW Coeff of Lainey 15.1 H, Plt Count 224, MPV 12.6 H, Immature Gran % (Auto) 4.100 H, Neut % (Auto) 90.0 H, Lymph % (Auto) 2.5 L, [place] % (Auto) 3.1, Eos % (Auto) 0.0, Baso % (Auto) 0.3, Absolute Neuts (auto) 22.9 H, Absolute Lymphs (auto) 0.63 L, Nucleated RBC % 1.7, Atypical Lymphocytes 1+, Anisocytosis 1+, Macrocytosis RARE 04/13/22 04:00: Sodium 145, Potassium 3.9, Chloride 108 H, Carbon Dioxide 30.0, Anion Gap 7, BUN 37 H, Creatinine 0.95, Estim Creat Clear Calc 58.18, Est GFR (MDRD) Af Amer 76, Est GFR (MDRD) Non-Af 63, BUN/Creatinine Ratio 38.9 H, Glucose 321 H, Calcium 6.6 L, Total Bilirubin 0.30, AST 13 L, ALT 20, Alkaline Phosphatase 95, Total Protein 5.1 L, Albumin 1.9 L, Globulin 3.2, Albumin/ Globulin Ratio 0.6 L 04/13/22 04:00: Total Creatine Kinase 65, Triglycerides 480 H 04/13/22 04:00: TSH 0.09 L 04/13/22 05:12: POC Glucose 300 H 04/13/22 09:00: Ammonia 46.0 H ABG Data ABG results: ABG 04/13/22 07:38 Specimen Type ART Sample Site L Radial pH 7.43 Bicarbonate Actual 27.8 H Total CO2 29 Base Excess 4 H O2 Saturation 94 L O2 % 30 ABG pCO2 41.5 ABG pO2 70 L Adán Test Positive Respiration Rate 12 O2 Delivery Device Adult Vent Vent Mode AC Tidal Volume 480 POC PEEP 5 Rhythm Strip Rhythm Strip: A-fib Rate: 130 Radiology Impression Chest X-Ray 04/12/22 18:08 IMPRESSION: 1. Interval placement of right upper extremity PICC with tip the catheter overlying the junction of the right atrium and spur vena cava. 2. Endotracheal tube and nasogastric tube both which are unchanged. 3. Improved bilateral pneumonia. Electronically Signed: Jourdan Soto MD at 18:23 EST , Brain CT 04/13/22 08:36 IMPRESSION: Persistent right side maxillary sinusitis with an air-fluid level. Persistent bilateral mastoiditis with air-fluid levels within the left greater than right mastoid air cells. Fluid surrounding the right-sided ossicles consistent with mastoiditis persistent right-sided otitis media. No visualized acute hemorrhage infarct or edema. If findings are suspicious for acute infarct recommend dedicated further imaging such as CT angiogram of the brain or MRI. Electronically Signed: Gracie Mercado MD at 9:38 EST , ADDENDUM: 04/13/22 0948 IMPRESSION: Persistent right side maxillary sinusitis with an air-fluid level. Persistent bilateral mastoiditis with air-fluid levels within the left greater than right mastoid air cells. Fluid surrounding the right-sided ossicles consistent with mastoiditis persistent right-sided otitis media. No visualized acute hemorrhage infarct or edema. If findings are suspicious for acute infarct recommend dedicated further imaging such as CT angiogram of the brain or MRI. N.B. : The above Results were Read Back by Gracie Mercado MD to Augusta Ramos OT, and understanding confirmed on 04/13/2022 09:41:08 (ET). Electronically Signed: Gracie Mercado MD at 9:38 EST ,
--- NOTE | 2022-04-13 10:57 | CT_ITS ---
STUDY: CT ABDOMEN AND PELVIS WITH CONTRAST REASON FOR EXAM: Female, 66 years old. Abd pain, sepsis RADIATION DOSAGE (If Supplied By Facility): CTDIvol = ( 18.78 ) mGy, DLP = ( 1612.85 ) mGycm TECHNIQUE: Transaxial images were obtained from the dome of the diaphragm to the symphysis pubis without oral contrast. IV 100mL Isovue-370 was administered. Sagittal and coronal images were reconstructed. Individualized dose optimization techniques were used for this CT. COMPARISON: September 02, 2020 CT abdomen and pelvis FINDINGS: There is a pattern of emphysematous change within the lung bases. There is a minimal focus of right lower lobe atelectasis. Findings suggest chronic fibrotic change. The visualized portions of the heart are within normal limits. The liver is fatty infiltrated. Normal gallbladder and extrahepatic biliary system. Normal spleen. Normal pancreas. Normal bilateral adrenal glands. Normal right kidney. Low attenuating cystic structure within the left kidney measuring 1.2 cm stable since prior study. There is an NG tube present the tip is in the stomach. Normal small intestine. There is a visualized rectal tube balloon extending to 5 x 5 cm. There is a decompressed appearance of the descending colon. There are air-fluid levels within the ascending and transverse colon. The appendix is visualized and appears normal. The aorta is partially calcified. Normal inferior vena cava. Normal retroperitoneum. There is a minimal fatty umbilical hernia. There is a Bravo catheter in the bladder. The bladder is decompressed around a Bravo. There is a visualized focal exophytic relatively stable appearing mass that may be extending from the fundus of the uterus measuring 3.2 x 3.3 cm. Light prominence of the endometrium for patient''s age. This measures up to 1.0 cm per There is bilateral flank edema. The bones are osteopenic. There is degenerative change of the thoracolumbar spine. CT/Abdomen/Pelvis WITH Contrast IMPRESSION: Hepatic steatosis. Chronic interstitial lung disease suspected. Air-fluid levels within the colon suggesting a diarrheal forming illness. There is a decompressed appearance of the sigmoid colon with a few diverticula without diverticulitis. There is a visualized foreign body within the rectum possible distended rectal tube. There is a visualized outpouching that appears to be peripheral to the uterus which may represent a fibroid. There is a thickened appearance of the endometrium for patient''s age. Consider follow-up pelvic ultrasound when appropriate. Stable left renal cyst. The bladder is decompressed around a Bravo cannot exclude cystitis. Electronically Signed: Gracie Mercado MD at 15:32 EST ,
--- NOTE | 2022-04-13 10:57 | CT_ITS ---
ACR Level 3 findings have been noted. An addendum which confirms receipt of the report will follow. INDICATION: pneumonia EXAMINATION: CTA Chest WO/W Contrast Injection TECHNIQUE: Helically acquired images were obtained of the chest following administration of IV contrast. A radiation dose optimization technique was used for this scan. 3D postprocessing images including MIPS were reviewed. IV Contrast dosage and agent: IV 100mL Isovue-370 COMPARISON: 09/11/2020. FINDINGS: Lungs: Redemonstration of chronic interstitial lung disease with bronchiectasis and honeycombing as well as linear fibrotic intralobular thickening. Scattered areas of groundglass and nodular opacities. Mediastinum: The cardiomediastinal silhouette is not enlarged. No mediastinal, hilar or axillary adenopathy. Mild aortic arch and coronary artery calcifications. Endotracheal tube and an NG tube are in place. Questionable small volume clot seen in the left lower lobe segmental and subsegmental pulmonary arteries. Pleura: Unremarkable Bones/Soft tissues: Mild scattered degenerative changes of the visualized spine. Upper abdomen: No visualized abnormalities in the upper abdomen. CT/CTA Chest W/WO Contrast IMPRESSION: Severe motion artifact limits this evaluation. Despite limitations: Questionable small volume acute pulmonary emboli in the left lower lobe segmental and subsegmental pulmonary arteries. No evidence of right heart strain. Redemonstration of chronic interstitial lung disease, similar in appearance to most recent prior on 09/11/2020. Scattered areas of groundglass and nodular opacities could represent superimposed infection. Electronically Signed: Nghia Nguyen MD at 17:31 EST ,
[2022-04-13 11:55] LABS: Bedside Glucose 407 mg/dL (74-106)
--- NOTE | 2022-04-13 15:42 | DS.PCM_ITS ---
Providers Date of Admission: 04/06/22 Primary Care Physician: RICARDO Wagner Consultations 04/06/22 20:31 Consult: Timber Poisoner / Pulmonary Medicine Routine Consulting Provider: Pulmonary Medicine shira Luisana Reason for Consult: resp failure EMERGENT Consult: No MD Notified: Yes Date Notified: 04/06/22 Time Notified: 17:38 Method of Notification: Text 04/08/22 09:32 Consult: Nephrology Routine Consulting Provider: Viviana Stein Reason for Consult: KAY EMERGENT Consult: No MD Notified: Yes Date Notified: 04/08/22 Time Notified: 10:14 Method of Notification: Answering Service 04/10/22 06:22 Consult: Cardiology Routine Consulting Provider: Jaci Espinoza Reason for Consult: afib RVR EMERGENT Consult: No MD Notified: Yes Date Notified: 04/10/22 Time Notified: 09:08 Method of Notification: Answering Service 04/13/22 09:17 Consult: Infectious Disease Routine Consulting Provider: Angus Caballero Reason for Consult: Sepsis with unresolving fevers EMERGENT Consult: No MD Notified: Yes Date Notified: 04/13/22 Time Notified: 10:25 Method of Notification: Text Reason For Visit: RESP FAILURE Diagnosis Discharge Diagnosis (1) Pneumonia: Status: Acute Code(s): J18.9 - Pneumonia, unspecified organism (2) Atrial fibrillation with rapid ventricular response: Status: Acute Code(s): I48.91 - Unspecified atrial fibrillation (3) Acute and chronic respiratory failure, unspecified whether with hypoxia or hypercapnia: Status: Chronic Code(s): J96.20 - Acute and chronic respiratory failure, unspecified whether with hypoxia or hypercapnia (4) Metabolic encephalopathy: Status: Acute Code(s): G93.41 - Metabolic encephalopathy (5) COPD (chronic obstructive pulmonary disease): Status: Chronic Code(s): J44.9 - Chronic obstructive pulmonary disease, unspecified Qualifiers: COPD type: unspecified COPD Qualified Code(s): J44.9 - Chronic obstructive pulmonary disease, unspecified (6) Diarrhea: Status: Acute Code(s): R19.7 - Diarrhea, unspecified Plan 66-year-old patient with mild admitted comorbidities She was admitted with altered mental status with generalized weakness and noted she had acute on chronic respiratory failure with MRSA pneumonia She had a longstanding history of COPD, acute renal insufficiency, diabetes mellitus, bronchiectasis and she has atrial fibrillation with RVR Currently on anticoagulation with Xarelto and she has been on beta-ruby Today noted distally she had a past ventricular rate Cardiac care plan recommendations; 1. Added amiodarone IV, will continue on beta-ruby as well as anticoagulation with Xarelto To continue monitoring hemoglobin due to anemia. Repeat echocardiogram showed LV function is preserved ejection fraction 65% trivial MR with trivial TR. And will continue to monitor and follow-up clinically. From cardiac standpoint if she has a controlled rate no further cardiac input will be required And will sign off and will be available if further cardiac need arise. Medications at Discharge Home Medications acetaminophen 500 mg tablet 1,000 mg PO Q6H PRN PAIN 01/30/19 gabapentin 100 mg capsule 200 mg PO BID NERVE PAIN 05/10/19 ipratropium 0.5 mg-albuterol 3 mg (2.5 mg base)/3 mL nebulization soln 3 ml inhalation Q6H.RT copd 05/10/19 ondansetron HCl 4 mg tablet (Zofran) 4 mg PO Q6H nausea #10 tabs 08/27/20 budesonide 0.5 mg/2 mL suspension for nebulization 0.5 mg inhalation BID sob 09/02/20 budesonide-formoterol HFA 160 mcg-4.5 mcg/actuation aerosol inhaler (Symbicort) 2 puff inhalation BID LUNGS 04/06/22 cholecalciferol (vitamin D3) 1,250 mcg (50,000 unit) capsule 50,000 unit PO QMONTH SUPPLEMENT 04/06/22 dextromethorphan-guaifenesin 30 mg-600 mg tablet extended hr (Mucinex DM) 1 tab PO Q12H CHEST CONGESTION 04/06/22 ferrous gluconate 324 mg (37.5 mg iron) tablet 324 mg PO BID SUPPLEMENT 04/06/22 gabapentin 400 mg capsule 400 mg PO TID NERVE PAIN 04/06/22 leflunomide 20 mg tablet 20 mg PO DAILY ARTHRITIS 04/06/22 metoprolol succinate 100 mg tablet,extended release 24 hr 100 mg PO DAILY HEART 04/06/22 omeprazole 40 mg capsule,delayed release 40 mg PO DAILY PRN REFLUX 04/06/22 rivaroxaban 20 mg tablet (Xarelto) 20 mg PO DAILY HEART 04/06/22 venlafaxine 37.5 mg capsule,extended release 24 hr 37.5 mg PO DAILY MOOD 1 06/07/21 verapamil 80 mg tablet 40 mg PO Q8 HEART 04/06/22 Weight / BMI Weight Weight: 187 lb 4 oz Body Mass Index (BMI) 26.6 ABG / Lab / Microbiology Data Result Diagrams: 04/13/22 04:00 04/13/22 04:00 Laboratory: Laboratory Results - last 24 hr 04/12/22 17:42: POC Glucose 330 H 04/12/22 19:25: Vancomycin Trough 18.7 H 04/12/22 23:53: POC Glucose 321 H 04/13/22 04:00: WBC 25.4 H, RBC 3.18 L, Hgb 9.7 L, Hct 32.2 L, MCV 101.3 H, MCH 30.5, MCHC 30.1 L, RDW Std Deviation 54.2 H, RDW Coeff of Lainey 15.1 H, Plt Count 224, MPV 12.6 H, Immature Gran % (Auto) 4.100 H, Neut % (Auto) 90.0 H, Lymph % (Auto) 2.5 L, [place] % (Auto) 3.1, Eos % (Auto) 0.0, Baso % (Auto) 0.3, Absolute Neuts (auto) 22.9 H, Absolute Lymphs (auto) 0.63 L, Nucleated RBC % 1.7, Atypi jaciel Lymphocytes 1+, Anisocytosis 1+, Macrocytosis RARE 04/13/22 04:00: Sodium 145, Potassium 3.9, Chloride 108 H, Carbon Dioxide 30.0, Anion Gap 7, BUN 37 H, Creatinine 0.95, Estim Creat Clear Calc 58.18, Est GFR (MDRD) Af Amer 76, Est GFR (MDRD) Non-Af 63, BUN/Creatinine Ratio 38.9 H, Glucose 321 H, Calcium 6.6 L, Total Bilirubin 0.30, AST 13 L, ALT 20, Alkaline Phosphatase 95, Total Protein 5.1 L, Albumin 1.9 L, Globulin 3.2, Albumin/Globulin Ratio 0.6 L 04/13/22 04:00: Total Creatine Kinase 65, Triglycerides 480 H 04/13/22 04:00: TSH 0.09 L 04/13/22 05:12: POC Glucose 300 H 04/13/22 09:00: Ammonia 46.0 H 04/13/22 11:29: POC Glucose 407 H Microbiology: Microbiology 04/13/22 11:42 Mucosa - Nose Respiratory Panel (PCR) - Final 04/11/22 15:30 Stool C. difficile DNA Amplification - Final 04/06/22 14:45 Blood Culture (Wb) - Arm Right Blood Culture - Final No growth in 5 days. 04/06/22 13:41 Blood Culture (Wb) - Anticubital Left Blood Culture - Final No growth in 5 days. 04/06/22 20:35 Sputum, Tracheal Aspirate Gram Stain - Final 04/06/22 20:35 Sputum, Tracheal Aspirate Respiratory Culture - Final Meth. resistant Staph. aureus 04/06/22 13:50 Urine Catheter - Bravo Urine Culture - Final Escherichia coli 04/06/22 21:40 Urine Catheter - Bravo Legionella Antigen - Final 04/06/22 21:40 Urine Catheter - Bravo Streptococcus pneumoniae Antigen (M - Final 04/06/22 14:50 Nasal Secretion SARS-CoV-2 & FLU Antigen (Rapid) - Final ABG: ABG 04/13/22 07:38 Specimen Type ART Sample Site L Radial pH 7.43 Bicarbonate Actual 27.8 H Total CO2 29 Base Excess 4 H O2 Saturation 94 L O2 % 30 ABG pCO2 41.5 ABG pO2 70 L Adán Test Positive Respiration Rate 12 O2 Delivery Device Adult Vent Vent Mode AC Tidal Volume 480 POC PEEP 5 Radiography Diagnostic Testing: Radiology Impression Chest X-Ray 04/12/22 18:08 IMPRESSION: 1. Interval placement of right upper extremity PICC with tip the catheter overlying the junction of the right atrium and spur vena cava. 2. Endotracheal tube and nasogastric tube both which are unchanged. 3. Improved bilateral pneumonia. Electronically Signed: Jourdan Soto MD at 18:23 EST , Brain CT 04/13/22 08:36 IMPRESSION: Persistent right side maxillary sinusitis with an air-fluid level. Persistent bilateral mastoiditis with air-fluid levels within the left greater than right mastoid air cells. Fluid surrounding the right-sided ossicles consistent with mastoiditis persistent right-sided otitis media. No visualized acute hemorrhage infarct or edema. If findings are suspicious for acute infarct recommend dedicated further imaging such as CT angiogram of the brain or MRI. Electronically Signed: Gracie Mercado MD at 9:38 EST Reading Location ID and State: [facility] / [place] Tel , Service support , ADDENDUM: 04/13/22 0948 IMPRESSION: Persistent right side maxillary sinusitis with an air-fluid level. Persistent bilateral mastoiditis with air-fluid levels within the left greater than right mastoid air cells. Fluid surrounding the right-sided ossicles consistent with mastoiditis persistent right-sided otitis media. No visualized acute hemorrhage infarct or edema. If findings are suspicious for acute infarct recommend dedicated further imaging such as CT angiogram of the brain or MRI. N.B. : The above Results were Read Back by Gracie Mercado MD to Augusta Ramos OT, and understanding confirmed on 04/13/2022 09:41:08 (ET). Electronically Signed: Gracie Mercado MD at 9:38 EST Reading Location ID and State: [facility] / [place] Tel , Service support , Abdomen/Pelvis CT 04/13/22 10:57 IMPRESSION: Hepatic steatosis. Chronic interstitial lung disease suspected. Air-fluid levels within the colon suggesting a diarrheal forming illness. There is a decompressed appearance of the sigmoid colon with a few diverticula without diverticulitis. There is a visualized foreign body within the rectum possible distended rectal tube. There is a visualized outpouching that appears to be peripheral to the uterus which may represent a fibroid. There is a thickened appearance of the endometrium for patient''s age. Consider follow-up pelvic ultrasound when appropriate. Stable left renal cyst. The bladder is decompressed around a Bravo cannot exclude cystitis. Electronically Signed: Gracie Mercado MD at 15:32 EST , Discharge Plan Admission Admit Date/Time: 04/06/22 17:28 Attending Provider: Juan Barahona Primary Care Provider: Alexa Becerra Consulting Providers: Roldan Gayle ; Ministerio Kingston ; Eliel Rey ; Kevin Ruiz ; Ninoska Alvarez TELECOMM[employer]ICATION LINES REPAIRER ; Joe Berkowitz ; Viviana Stein ; Jaci Espinoza ; Kaylie Miller ; Angus Caballero Discharge Orders/Prescriptions Prescriptions: No Action acetaminophen 500 MG tablet 1,000 mg PO Q6H PRN (Reason: PAIN) ipratropium-albuterol 3 ML solution for nebulization 3 ml inhalation Q6H.RT gabapentin 100 MG capsule 200 mg PO BID ondansetron HCl [Zofran] 4 mg tablet 4 mg PO Q6H Qty: 10 0RF budesonide 0.5 mg/2 mL suspension for nebulization 0.5 mg inhalation BID Label Comments: USE 1 VIAL IN NEBULIZER OVER 5 15 MINUTES EVERY 12 HOURS gabapentin 400 mg capsule 400 mg PO TID Label Comments: TAKE 1 CAPSULE BY MOUTH THREE TIMES DAILY venlafaxine 37.5 mg capsule,extended release 24hr 37.5 mg PO DAILY Label Comments: TAKE 1 CAPSULE BY MOUTH ONCE DAILY leflunomide 20 mg tablet 20 mg PO DAILY Label Comments: TAKE 1 TABLET BY MOUTH ONCE DAILY Mucinex DM 30-600 mg Tablet Extended Release 12 Hr 1 tab PO Q12H cholecalciferol (vitamin D3) 1,250 mcg (50,000 unit) capsule 50,000 unit PO QMONTH Label Comments: TAKE 1 CAPSULE BY MOUTH ONCE EVERY MONTH budesonide-formoterol [Symbicort] 160-4.5 mcg/actuation HFA aerosol inhaler 2 puff INHALATION BID Label Comments: INHALE 2 PUFFS BY MOUTH TWICE DAILY ferrous gluconate 324 mg (37.5 mg iron) Tablet 324 mg PO BID Xarelto 20 mg tablet 20 mg PO DAILY Label Comments: TAKE 1 TABLET BY MOUTH ONCE DAILY WITH DINNER metoprolol succinate 100 mg tablet extended release 24 hr 100 mg PO DAILY omeprazole 40 mg capsule,delayed release(DR/EC) 40 mg PO DAILY PRN (Reason: REFLUX) verapamil 80 mg tablet 40 mg PO Q8 Referrals / Follow Up: Alexa Becerra, PA [Primary Care Provider] -
--- NOTE | 2022-04-13 15:43 | PCM.PN.CARD ---
Subjective Subjective Seen and evaluated and discussed with the nursing staff Patient intubated on ventilator/sedated Objective Data Vital Signs: Vital Signs Temp Pulse Resp BP Pulse Ox O2 Del Method O2 Flow Rate 101.9 F H 138 H 15 149/96 H 96 Mechanical Ventilator 2 04/13/22 14:00 04/13/22 14:00 04/13/22 14:00 04/13/22 14:00 04/13/22 14:00 04/13/22 14:00 04/08/22 13:00 FiO2 30 04/13/22 14:00 Oxygen Flow Rate (L/min) 2 Oxygen Delivery Method Mechanical Ventilator Weight: 187 lb 4 oz Body Mass Index (BMI) 26.6 Intake & Output: Intake and Output for Last 24 Hours 04/11/22 04/12/22 04/13/22 23:59 23:59 23:59 Intake Total 3370.06 / 3405.06 3687.30 / 3862.30 2716.20 / 2716.20 Output Total 1625 / 1625 4700 / 4700 3400 / 3400 Balance 1745.06 / 1780.06 -1012.70 / -837.70 -683.80 / -683.80 Lab / Micro Data Result Diagrams: 04/13/22 04:00 04/13/22 04:00 Labs: Laboratory Results - last 24 hr 04/12/22 17:42: POC Glucose 330 H 04/12/22 19:25: Vancomycin Trough 18.7 H 04/12/22 23:53: POC Glucose 321 H 04/13/22 04:00: WBC 25.4 H, RBC 3.18 L, Hgb 9.7 L, Hct 32.2 L, MCV 101.3 H, MCH 30.5, MCHC 30.1 L, RDW Std Deviation 54.2 H, RDW Coeff of Lain[place] 15.1 H, Plt Count 224, MPV 12.6 H, Immature Gran % (Auto) 4.100 H, Neut % (Auto) 90.0 H, Lymph % (Auto) 2.5 L, [place] % (Auto) 3.1, Eos % (Auto) 0.0, Baso % (Auto) 0.3, Absolute Neuts (auto) 22.9 H, Absolute Lymphs (auto) 0.63 L, Nucleated RBC % 1.7, Atypical Lymphocytes 1+, Anisocytosis 1+, Macrocytosis RARE 04/13/22 04:00: Sodium 145, Potassium 3.9, Chloride 108 H, Carbon Dioxide 30.0, Anion Gap 7, BUN 37 H, Creatinine 0.95, Estim Creat Clear Calc 58.18, Est GFR (MDRD) Af Amer 76, Est GFR (MDRD) Non-Af 63, BUN/Creatinine Ratio 38.9 H, Glucose 321 H, Calcium 6.6 L, Total Bilirubin 0.30, AST 13 L, ALT 20, Alkaline Phosphatase 95, Total Protein 5.1 L, Albumin 1.9 L, Globulin 3.2, Albumin/Globulin Ratio 0.6 L 04/13/22 04:00: Total Creatine Kinase 65, Triglycerides 480 H 04/13/22 04:00: TSH 0.09 L 04/13/22 05:12: POC Glucose 300 H 04/13/22 09:00: Ammonia 46.0 H 04/13/22 11:29: POC Glucose 407 H Micro: Microbiology 04/13/22 11:42 Mucosa - Nose Respiratory Panel (PCR) - Final ABG Data ABG results: ABG 04/13/22 07:38 Specimen Type ART Sample Site L Radial pH 7.43 Bicarbonate Actual 27.8 H Total CO2 29 Base Excess 4 H O2 Saturation 94 L O2 % 30 ABG pCO2 41.5 ABG pO2 70 L Adán Test Positive Respiration Rate 12 O2 Delivery Device Adult Vent Vent Mode AC Tidal Volume 480 POC PEEP 5 Rhythm Strip Rhythm Strip: A-fib Rate: 130 Cardiology Labs/Tests 04/13/22 04:00: WBC 25.4 H, RBC 3.18 L, Hgb 9.7 L, Hct 32.2 L, MCV 101.3 H, MCH 30.5, MCHC 30.1 L, Plt Count 224, MPV 12.6 H, Immature Gran % (Auto) 4.100 H, Neut % (Auto) 90.0 H, Lymph % (Auto) 2.5 L, [place] % (Auto) 3.1, Eos % (Auto) 0.0, Baso % (Auto) 0.3, Absolute Neuts (auto) 22.9 H, Nucleated RBC % 1.7 04/13/22 04:00: Sodium 145, Potassium 3.9, Chloride 108 H, Carbon Dioxide 30.0, Anion Gap 7, BUN 37 H, Creatinine 0.95, Est GFR (MDRD) Af Amer 76, Est GFR (MDRD) Non-Af 63, BUN/Creatinine Ratio 38.9 H, Glucose 321 H, Calcium 6.6 L, Total Bilirubin 0.30 04/13/22 04:00: Triglycerides 480 H 04/13/22 07:38: pH 7.43, Bicarbonate Actual 27.8 H, Base Excess 4 H, O2 Saturation 94 L, ABG pCO2 41.5, ABG pO2 70 L, Adán Test Positive Rhythm: EKG: ECHO: Stress Test: Cardiac Cath: PCI: CT Surgery: Holter monitor: EPS: PPM: CXR: Chest CT Scan: Radiography Diagnostic Testing: Radiology Impression Chest X-Ray 04/12/22 18:08 IMPRESSION: 1. Interval placement of right upper extremity PICC with tip the catheter overlying the junction of the right atrium and spur vena cava. 2. Endotracheal tube and nasogastric tube both which are unchanged. 3. Improved bilateral pneumonia. Electronically Signed: Jourdan Soto MD at 18:23 EST , Brain CT 04/13/22 08:36 IMPRESSION: Persistent right side maxillary sinusitis with an air-fluid level. Persistent bilateral mastoiditis with air-fluid levels within the left greater than right mastoid air cells. Fluid surrounding the right-sided ossicles consistent with mastoiditis persistent right-sided otitis media. No visualized acute hemorrhage infarct or edema. If findings are suspicious for acute infarct recommend dedicated further imaging such as CT angiogram of the brain or MRI. Electronically Signed: Gracie Mercado MD at 9:38 EST , ADDENDUM: 04/13/22 0948 IMPRESSION: Persistent right side maxillary sinusitis with an air-fluid level. Persistent bilateral mastoiditis with air-fluid levels within the left greater than right mastoid air cells. Fluid surrounding the right-sided ossicles consistent with mastoiditis persistent right-sided otitis media. No visualized acute hemorrhage infarct or edema. If findings are suspicious for acute infarct recommend dedicated further imaging such as CT angiogram of the brain or MRI. N.B. : The above Results were Read Back by Gracie Mercado MD to Augusta Ramos OT, and understanding confirmed on 04/13/2022 09:41:08 (ET). Electronically Signed: Gracie Mercado MD at 9:38 EST , Abdomen/Pelvis CT 04/13/22 10:57 IMPRESSION: Hepatic steatosis. Chronic interstitial lung disease suspected. Air-fluid levels within the colon suggesting a diarrheal forming illness. There is a decompressed appearance of the sigmoid colon with a few diverticula without diverticulitis. There is a visualized foreign body within the rectum possible distended rectal tube. There is a visualized outpouching that appears to be peripheral to the uterus which may represent a fibroid. There is a thickened appearance of the endometrium for patient''s age. Consider follow-up pelvic ultrasound when appropriate. Stable left renal cyst. The bladder is decompressed around a Bravo cannot exclude cystitis. Electronically Signed: Gracie Mercado MD at 15:32 EST , Physical Exam Cardio Cardio Narrative: Patient intubated on the ventilator. Cardiac rhythm is A. fib with RVR Cardiac exam S1-S2 normal no murmurs no pericardial rub or gallop underlying cardiac rhythm irregularly irregular rate/A. fib Chest exam diminished air entry bilateral. Assessment & Plan Assessment/Plan (1) Atrial fibrillation with rapid ventricular response: (2) Acute and chronic respiratory failure, unspecified whether with hypoxia or hypercapnia: (3) COPD (chronic obstructive pulmonary disease): QUALIFIERS: COPD type: unspecified COPD Qualified Code(s): J44.9 - Chronic obstructive pulmonary disease, unspecified (4) Metabolic encephalopathy: PLAN: Plan 66 old patient with sepsis due to MRSA pneumonia and respiratory failure. Persistent atrial fibrillation rapid ventricular rate and history of COPD. Patient currently on supportive measures We have been following for A. fib with RVR to assist in management Patient currently on amiodarone IV and beta-ruby metoprolol. Also on anticoagulation with Xarelto. Cardiac care plan recommendations; 1. We will continue to monitor and follow-up clinically.
[2022-04-13 17:56] LABS: Bedside Glucose 243 mg/dL (74-106)
[2022-04-13 23:55] LABS: Bedside Glucose 231 mg/dL (74-106)
[2022-04-14] VITALS (33 sets, daily range): BP systolic 90–129; BP diastolic 62–98; PULSE 104–169; RESP 12–32; TEMP 36.1–39; O2SAT 91–99
[2022-04-14] MEDS: Amiodarone 360 MG in Dextrose 5% Viaflo Bag 192.8 ML 16.6999999999999993 MG CONT INF (04:59)
[2022-04-14] MEDS: CHLORHEXIDINE GLUC 2% CLOTH 1 EACH TOWELETTE TOPICAL (05:00)
[2022-04-14] MEDS: Ondansetron 4 MG/2 ML Vial IV (05:06)
--- NOTE | 2022-04-14 05:12 | NURSING ---
Fentanyl bag empty per JUN around 134, but still had some left in bag and was running until 299 when new bag was hung by another RN. Unable to chart 199 titration.
[2022-04-14] MEDS: Insulin Lispro 100 UNIT/ML INSULN.PEN SC ×2 (06:36→10:58)
[2022-04-14] MEDS: Metoprolol Tartrate 100 MG Tablet 150 MG GT ×2 (06:36→21:35)
--- NOTE | 2022-04-14 06:55 | PCM.PN.INT ---
Assessment & Plan Assessment/Plan (1) Acute and chronic respiratory failure, unspecified whether with hypoxia or hypercapnia: (2) Chronic atrial fibrillation with rapid ventricular response: (3) Bronchiectasis: QUALIFIERS: Bronchiectasis type: uncomplicated Qualified Code(s): J47.9 - Bronchiectasis, uncomplicated (4) Pneumonia: PLAN: Plan RECOMMENDATIONS: 1. Proceed with a trial of extubation this morning. 2. Once extubated, wean supplemental oxygen to maintain saturations at or above 90%. 3. Perform bedside swallow evaluation and advance diet accordingly. 4. Defer management of atrial fibrillation to cardiology. 5. Encourage incentive spirometer use and mobilize patient as tolerated. 6. Continue antimicrobials as ordered. 7. Continue as needed bronchodilators and IV Solu-Medrol. 8. Continue Xarelto per home regimen along with appropriate GI prophylaxis. IMPRESSIONS: 1. Acute on chronic combined respiratory failure secondary to bilateral pneumonia Improved. Plan to continue current supportive measures including invasive mechanical ventilatory support. FiO2 and PEEP can be weaned to maintain oxygen saturations at or above 90%. Continue antimicrobials to address MRSA noted on sputum culture. The patient did pass a spontaneous breathing trial this morning will therefore be extubated. Once extubated, supplemental oxygen will continue to be weaned. A bedside swallow evaluation can be completed and diet advanced accordingly. Gentle diuresis will be continued as tolerated by hemodynamics and renal function. Encourage incentive spirometer use and mobilize patient as tolerated. 2. Encephalopathy Improved. Initially felt to be metabolic in etiology. CT head was unremarkable. 3. Acute kidney injury secondary to sepsis d/t pneumonia Resolved. Kidney function has improved with stabilization of hemodynamics. Continue to monitor urine output. No current indication for renal replacement therapy. 4. A. fib with RVR Continue systemic anticoagulation per baseline. Cardiology is following to assist with medical management of atrial fibrillation. 5. Anemia/hypertension/debility/bronchiectasis/rheumatoid lung disease Complicates care, management, recovery and prognosis. No indication for transfusions at this time. TIME: 32 minutes of critical care time, independent of procedures, was spent addressing the patient's acute on chronic combined respiratory failure, MRSA pneumonia, atrial fibrillation with RVR, acute kidney injury, review of all data and collaboration with the care team. Subjective Subjective The patient was seen and examined at the bedside this morning. Events from the last 24 hours have been reviewed. The patient's fever curve has improved over the last 24 hours. She remains hemodynamically stable. The patient is alert this morning and was able to pass a spontaneous breathing trial. She is currently following simple commands appropriately. The patient is documented to be overall net +10.3 L for the hospitalization. Objective Data Objective Data The patient's most recent lab work, culture data and imaging studies have all been personally reviewed. Sputum culture dated April 06 was positive for MRSA. Urine culture dated April 06 was positive for E. coli. Repeat blood cultures are currently pending. Vital Signs: Vital Signs Temp Pulse Resp BP Pulse Ox O2 Del Method O2 Flow Rate 97.7 F L 135 H 22 H 129/98 H 95 Mechanical Ventilator 2 04/14/22 06:00 04/14/22 06:36 04/14/22 06:00 04/14/22 06:00 04/14/22 06:00 04/14/22 06:00 04/08/22 13:00 FiO2 30 04/14/22 06:00 Oxygen Flow Rate (L/min) 2 Oxygen Delivery Method Mechanical Ventilator Weight: 183 lb 6.4 oz Body Mass Index (BMI) 26.6 Intake & Output: Intake and Output for Last 24 Hours 04/12/22 04/13/22 04/14/22 23:59 23:59 23:59 Intake Total 3687.30 / 3862.30 3906.57 / 4063.27 1483.32 / 1483.32 Output Total 4700 / 4700 5050 / 5050 850 / 850 Balance -1012.70 / -837.70 -1143.43 / -986.73 633.32 / 633.32 Lab / Micro Data Attestation: I reviewed the patient's lab results. Result Diagrams: 04/14/22 07:00 04/14/22 07:00 Labs: Laboratory Results - last 24 hr 04/13/22 04:00: TSH 0.09 L 04/13/22 09:00: Ammonia 46.0 H 04/13/22 11:29: POC Glucose 407 H 04/13/22 17:32: POC Glucose 243 H 04/13/22 23:32: POC Glucose 231 H Micro: Microbiology 04/13/22 11:42 Mucosa - Nose Respiratory Panel (PCR) - Final 04/11/22 15:30 Stool C. difficile DNA Amplification - Final 04/06/22 14:45 Blood Culture (Wb) - Arm Right Blood Culture - Final No growth in 5 days. 04/06/22 13:41 Blood Culture (Wb) - Anticubital Left Blood Culture - Final No growth in 5 days. 04/06/22 20:35 Sputum, Tracheal Aspirate Gram Stain - Final 04/06/22 20:35 Sputum, Tracheal Aspirate Respiratory Culture - Final Meth. resistant Staph. aureus 04/06/22 13:50 Urine Catheter - Bravo Urine Culture - Final Escherichia coli 04/06/22 21:40 Urine Catheter - Bravo Legionella Antigen - Final 04/06/22 21:40 Urine Catheter - Bravo Streptococcus pneumoniae Antigen (M - Final 04/06/22 14:50 Nasal Secretion SARS-CoV-2 & FLU Antigen (Rapid) - Final ABG Data ABG results: ABG 04/13/22 07:38 Specimen Type ART Sample Site L Radial pH 7.43 Bicarbonate Actual 27.8 H Total CO2 29 Base Excess 4 H O2 Saturation 94 L O2 % 30 ABG pCO2 41.5 ABG pO2 70 L Adán Test Positive Respiration Rate 12 O2 Delivery Device Adult Vent Vent Mode AC Tidal Volume 480 POC PEEP 5 Radiography Diagnostic Testing: Radiology Impression Brain CT 04/13/22 08:36 IMPRESSION: Persistent right side maxillary sinusitis with an air-fluid level. Persistent bilateral mastoiditis with air-fluid levels within the left greater than right mastoid air cells. Fluid surrounding the right-sided ossicles consistent with mastoiditis persistent right-sided otitis media. No visualized acute hemorrhage infarct or edema. If findings are suspicious for acute infarct recommend dedicated further imaging such as CT angiogram of the brain or MRI. Electronically Signed: Gracie Mercado MD at 9:38 EST Reading Location ID and State: Count includes the [facility] / [place] Tel , Service support , ADDENDUM: 04/13/22 0948 IMPRESSION: Persistent right side maxillary sinusitis with an air-fluid level. Persistent bilateral mastoiditis with air-fluid levels within the left greater than right mastoid air cells. Fluid surrounding the right-sided ossicles consistent with mastoiditis persistent right-sided otitis media. No visualized acute hemorrhage infarct or edema. If findings are suspicious for acute infarct recommend dedicated further imaging such as CT angiogram of the brain or MRI. N.B. : The above Results were Read Back by Gracie Mercado MD to Augusta Ramos OT, and understanding confirmed on 04/13/2022 09:41:08 (ET). Electronically Signed: Gracie Mercado MD at 9:38 EST , Abdomen/Pelvis CT 04/13/22 10:57 IMPRESSION: Hepatic steatosis. Chronic interstitial lung disease suspected. Air-fluid levels within the colon suggesting a diarrheal forming illness. There is a decompressed appearance of the sigmoid colon with a few diverticula without diverticulitis. There is a visualized foreign body within the rectum possible distended rectal tube. There is a visualized outpouching that appears to be peripheral to the uterus which may represent a fibroid. There is a thickened appearance of the endometrium for patient''s age. Consider follow-up pelvic ultrasound when appropriate. Stable left renal cyst. The bladder is decompressed around a Bravo cannot exclude cystitis. Electronically Signed: Gracie Mercado MD at 15:32 EST , Chest CTA 04/13/22 10:57 IMPRESSION: Severe motion artifact limits this evaluation. Despite limitations: Questionable small volume acute pulmonary emboli in the left lower lobe segmental and subsegmental pulmonary arteries. No evidence of right heart strain. Redemonstration of chronic interstitial lung disease, similar in appearance to most recent prior on 09/11/2020. Scattered areas of groundglass and nodular opacities could represent superimposed infection. Electronically Signed: Nghia Nguyen MD at 17:31 EST , ADDENDUM: 04/13/22 [id number] IMPRESSION: Severe motion artifact limits this evaluation. Despite limitations: Questionable small volume acute pulmonary emboli in the left lower lobe segmental and subsegmental pulmonary arteries. No evidence of right heart strain. Redemonstration of chronic interstitial lung disease, similar in appearance to most recent prior on 09/11/2020. Scattered areas of groundglass and nodular opacities could represent superimposed infection. N.B. : Fabian Hull RN, confirmed on 04/13/2022 17:42:24 (ET) that the healthcare facility has received the radiology report. Electronically Signed: Nghia Nguyen MD at 17:31 EST , Rhythm Strip Rhythm Strip: A-fib Rate: 130 Physical Exam Const alert and no apparent distress General Appearance: intubated and patient mechanically ventilated HEENT normocephalic, head/scalp atraumatic and moist oral mucous membranes Mouth: endotracheal tube in place and OG tube in place Eyes PERRL, EOMs intact bilaterally and conjunctivae normal Neck supple General: trachea midline Chest inspection of chest normal Resp Auscultation: diminished lung sounds; Negative for rales, rhonchi or wheezes Cardio S1 normal heart sound, S2 normal heart sound, no murmurs, no rub and no gallops Rate: tachycardic Rhythm: abnormal rhythm irregularly irregular GI normal to inspection, nondistended, normoactive bowel sounds, soft to palpation, non-tender and non-distended Extremity General Extremity: edema Skin no rashes or lesions noted Neuro Neuro Narrative: Currently alert and able to follow simple commands. Charges/Coding Procedures Hospitalists Procedures: [id number] [facility] Care 1st Hr
[2022-04-14 07:00] LABS: Bedside Glucose 247 mg/dL (74-106)
[2022-04-14 07:14] LABS: Absolute Lymphocyte Count 1.39 X10^3/uL (0.83-4.51); Absolute Neutrophil Count 25.4 X10^3/uL (2.0-7.7); Basophil# 0.07 X10^3/uL; Basophil% 0.2 % (0-1); Hematocrit 37.3 % (37-47); Hemoglobin 11.2 g/dL (12.0-15.0); Lymphocyte # 1.39 X10^3/ul (0.83-4.51); Lymphocyte % 4.8 % (19-41); Mean Corpuscular Hgb 30.9 pg (27.0-32.0); Mean Platelet Vol. 12.2 fl (6.2-12.0); Monocyte# 1.28 X10^3/uL; Monocyte% 4.4 % (0-10); NRBC Flagged by Analyzer 1.5 % (0-5); Neutrophil # 25.43 X10^3/uL (2.7-7.7); Neutrophil % 87.1 % (47-70); POSITIVE DIFFERENTIAL YES; Platelet Count 195 K/mm3 (150-450); RBC Distribution Width CV 17.2 % (11.6-14.6); RBC Distribution Width SD 54.8 fl (35.1-43.9); Red Blood Count 3.62 M/mm3 (4.2-5.4); White Blood Count 29.2 K/mm3 (4.4-11.0)
[2022-04-14 07:30] LABS: Differential Indicated SCAN CRITERIA MET
[2022-04-14 07:41] LABS: Anion Gap 5 (5-15); BUN 32 mg/dL (7-18); BUN/Creat Ratio 51.9 RATIO (10-20); Calcium,Total 6.4 mg/dL (8.5-10.1); Chloride 108 mmol/L (98-107); Creatinine, Serum 0.62 mg/dL (0.55-1.02); EST Glomerular Filtration Rate 103 mL/min (>60); Est Glom Filt Rate - Afr Amer 125 mL/min (>60); Estimated Creatinine Clearance 89.14 ml/min; Glucose 225 mg/dL (74-106); Potassium 2.9 mmol/L (3.5-5.1); Sodium Level 144 mmol/L (136-145)
[2022-04-14] MEDS: Chlorhexidine 15 ML PO (08:26)
[2022-04-14 08:37] LABS: Differential Comment SCANNED
--- NOTE | 2022-04-14 09:45 | CASEMGMT ---
SHALOM ZAVALA DC Planning Follow-up: SHALOM ZAVALA to bedside with pt and pt's spouse. Pt alert, pt's voice soft s/p extubation. Discussed continued monitoring of pt's ability to ambulate with PT/OT for determination of level of care need at discharge. Pt states she is weak. Discussed possible need for rehab at discharge to improve strength prior to returning home. Pt and spouse expressed understanding. Will continue to monitor and discuss DC disposition after mobility determined. Rai Hernandez RN CM
--- NOTE | 2022-04-14 10:09 | PCM.PN.ID ---
Physical Exam Narrative Extubated, breathing ok, no fever, no abd pain. Const alert and no apparent distress Resp Auscultation: diminished lung sounds Cardio Rate: tachycardic GI soft to palpation, non-tender and non-distended Skin no rashes or lesions noted ID ID: Route of nutrition/ use of supplements: [] Nutritional Intake: [] IV Site: [] Bravo Catheter: [] Assessment & Plan Assessment/Plan (1) Pneumonia: PLAN: sespsis due to MRSA pneumonia with resp failure. Ucx with ecoli but no pyuria on UA. Ongoing high fever, lymphopenia. UAgs neg. Covid and flu Ag neg on admit. Head CT this AM shows bilat mastoiditis. Cont vanc. Cdiff neg here. Now extubated, afebrile this AM. Will follow (2) Atrial fibrillation with rapid ventricular response: (3) Acute and chronic respiratory failure, unspecified whether with hypoxia or hypercapnia: (4) Metabolic encephalopathy: (5) COPD (chronic obstructive pulmonary disease): QUALIFIERS: COPD type: unspecified COPD Qualified Code(s): J44.9 - Chronic obstructive pulmonary disease, unspecified (6) Diarrhea:
[2022-04-14] MEDS: Furosemide 40 MG/4 ML Vial IV (10:55)
[2022-04-14] MEDS: Potassium Chloride 10mEq/100mL 10 MEQ/100 ML IV.SOLN. 100 MEQ IV BOLUS ×3 (10:57→13:18)
--- NOTE | 2022-04-14 12:09 | PN.CARD_ITS ---
Subjective Subjective Extubated this morning. Appears somewhat short of breath. Objective Data Vital Signs: Vital Signs Temp Pulse Resp BP Pulse Ox O2 Del Method O2 Flow Rate 97.3 F L 122 H 26 H 106/62 95 Nasal Cannula 3 04/14/22 11:00 04/14/22 11:00 04/14/22 11:00 04/14/22 11:00 04/14/22 11:00 04/14/22 11:00 04/14/22 11:00 FiO2 30 04/14/22 06:00 Oxygen Flow Rate (L/min) 3 Oxygen Delivery Method Nasal Cannula Weight: 183 lb 6.4 oz Body Mass Index (BMI) 26.6 Intake & Output: Intake and Output for Last 24 Hours 04/12/22 04/13/22 04/14/22 23:59 23:59 23:59 Intake Total 3687.30 / 3862.30 3906.57 / 4063.27 1851.69 / 1851.69 Output Total 4700 / 4700 5050 / 5050 1000 / 1000 Balance -1012.70 / -837.70 -1143.43 / -986.73 851.69 / 851.69 Lab / Micro Data Result Diagrams: 04/14/22 07:00 04/14/22 07:00 Labs: Laboratory Results - last 24 hr 04/13/22 17:32: POC Glucose 243 H 04/13/22 23:32: POC Glucose 231 H 04/14/22 06:35: POC Glucose 247 H 04/14/22 07:00: WBC 29.2 H, RBC 3.62 L, Hgb 11.2 L, Hct 37.3, MCV 103.0 H, MCH 30.9, MCHC 30.0 L, RDW Std Deviation 54.8 H, RDW Coeff of [place]ain[place] 17.2 H, Plt Count 195, MPV 12.2 H, Immature Gran % (Auto) 3.500 H, Neut % (Auto) 87.1 H, Lymph % (Auto) 4.8 L, [place] % (Auto) 4.4, Eos % (Auto) 0.0, Baso % (Auto) 0.2, Absolute Neuts (auto) 25.4 H, Absolute Lymphs (auto) 1.39, Nucleated RBC % 1.5, Differential Comment SCANNED 04/14/22 07:00: Sodium 144, Potassium 2.9 L, Chloride 108 H, Carbon Dioxide 31.0, Anion Gap 5, BUN 32 H, Creatinine 0.62, Estim Creat Clear Calc 89.14, Est GFR (MDRD) Af Amer 125, Est GFR (MDRD) Non-Af 103, BUN/Creatinine Ratio 51.9 H, Glucose 225 H, Calcium 6.4 L* Micro: Microbiology 04/13/22 23:58 Stool Enteric Bacteriology - Final 04/13/22 11:42 Mucosa - Nose Respiratory Panel (PCR) - Final Rhythm Strip Rhythm Strip: A-fib Rate: 130 Cardiology Labs/Tests 04/14/22 07:00: WBC 29.2 H, RBC 3.62 L, Hgb 11.2 L, Hct 37.3, MCV 103.0 H, MCH 30.9, MCHC 30.0 L, Plt Count 195, MPV 12.2 H, Immature Gran % (Auto) 3.500 H, Neut % (Auto) 87.1 H, Lymph % (Auto) 4.8 L, [place] % (Auto) 4.4, Eos % (Auto) 0.0, Baso % (Auto) 0.2, Absolute Neuts (auto) 25.4 H, Nucleated RBC % 1.5 04/14/22 07:00: Sodium 144, Potassium 2.9 L, Chloride 108 H, Carbon Dioxide 31.0, Anion Gap 5, BUN 32 H, Creatinine 0.62, Est GFR (MDRD) Af Amer 125, Est GFR (MDRD) Non-Af 103, BUN/Creatinine Ratio 51.9 H, Glucose 225 H, Calcium 6.4 L* Rhythm: EKG: ECHO: Stress Test: Cardiac Cath: PCI: CT Surgery: Holter monitor: EPS: PPM: CXR: Chest CT Scan: Radiography Diagnostic Testing: Radiology Impression Abdomen/Pelvis CT 04/13/22 10:57 IMPRESSION: Hepatic steatosis. Chronic interstitial lung disease suspected. Air-fluid levels within the colon suggesting a diarrheal forming illness. There is a decompressed appearance of the sigmoid colon with a few diverticula without diverticulitis. There is a visualized foreign body within the rectum possible distended rectal tube. There is a visualized outpouching that appears to be peripheral to the uterus which may represent a fibroid. There is a thickened appearance of the endometrium for patient''s age. Consider follow-up pelvic ultrasound when appropriate. Stable left renal cyst. The bladder is decompressed around a Bravo cannot exclude cystitis. Electronically Signed: Gracie Mercado MD at 15:32 EST , Chest CTA 04/13/22 10:57 IMPRESSION: Severe motion artifact limits this evaluation. Despite limitations: Questionable small volume acute pulmonary emboli in the left lower lobe segmental and subsegmental pulmonary arteries. No evidence of right heart strain. Redemonstration of chronic interstitial lung disease, similar in appearance to most recent prior on 09/11/2020. Scattered areas of groundglass and nodular opacities could represent superimposed infection. Electronically Signed: Nghia Nguyen MD at 17:31 EST , ADDENDUM: 04/13/22 1749 IMPRESSION: Severe motion artifact limits this evaluation. Despite limitations: Questionable small volume acute pulmonary emboli in the left lower lobe segmental and subsegmental pulmonary arteries. No evidence of right heart strain. Redemonstration of chronic interstitial lung disease, similar in appearance to most recent prior on 09/11/2020. Scattered areas of groundglass and nodular opacities could represent superimposed infection. N.B. : Fabian Hull RN, confirmed on 04/13/2022 17:42:24 (ET) that the healthcare facility has received the radiology report. Electronically Signed: Nghia Nguyen MD at 17:31 EST , Physical Exam Narrative Appears anxious. Short of breath. Assessment & Plan Assessment/Plan (1) Atrial fibrillation with rapid ventricular response: PLAN: Continue amiodarone. Switch to p.o. Continue beta-blockers. Add low- dose calcium channel blockers. Monitor blood pressure. On Xarelto for prevention of thromboembolic complications. (2) Pneumonia: PLAN: MRSA pneumonia. As per critical care. (3) Sepsis: PLAN: As per critical care. (4) COPD exacerbation: PLAN: As per critical care.
[2022-04-14 13:46] LABS: Bedside Glucose 153 mg/dL (74-106)
[2022-04-14 13:57] LABS: Pathologist Review Reviewed
[2022-04-14] MEDS: Amiodarone 200 MG Tablet PO (14:31)
[2022-04-14] MEDS: Albuterol 2.5 MG/3 ML VIAL.NEB. INHALATION (15:18)
[2022-04-14] MEDS: dilTIAZem 30 MG Tablet PO ×2 (16:52→22:56)
--- NOTE | 2022-04-14 18:48 | PN.HOSP_ITS ---
Subjective Subjective Patient was seen and examined today, she was extubated earlier this morning, I talked with pulmonary medicine about her care. Patient remains in atrial fibrillation, she was changed over to oral amiodarone this afternoon by cardiology. Patient's white blood cell count today was 29.2. Infectious diseases is participating in her care. Objective Data Objective Data Vital Signs: Vital Signs Temp Pulse Resp BP Pulse Ox O2 Del Method O2 Flow Rate 98.4 F 136 H 24 H 103/89 H 92 Nasal Cannula 3 04/14/22 16:00 04/14/22 16:00 04/14/22 16:00 04/14/22 16:00 04/14/22 16:00 04/14/22 16:00 04/14/22 16:00 FiO2 30 04/14/22 06:00 Oxygen Flow Rate (L/min) 3 Oxygen Delivery Method Nasal Cannula Weight: 83.189 kg Body Mass Index (BMI) 26.6 Intake & Output: Intake and Output for Last 24 Hours 04/12/22 04/13/22 04/14/22 23:59 23:59 23:59 Intake Total 3687.30 / 3862.30 3906.57 / 4063.27 2278.89 / 2278.89 Output Total 4700 / 4700 5050 / 5050 2400 / 2400 Balance -1012.70 / -837.70 -1143.43 / -986.73 -121.11 / -121.11 Lab / Micro Data Result Diagrams: 04/15/22 08:20 04/15/22 08:20 Labs: Laboratory Results - last 24 hr 04/11/22 06:45: Diff Path Review Reviewed 04/13/22 23:32: POC Glucose 231 H 04/14/22 06:35: POC Glucose 247 H 04/14/22 07:00: WBC 29.2 H, RBC 3.62 L, Hgb 11.2 L, Hct 37.3, MCV 103.0 H, MCH 30.9, MCHC 30.0 L, RDW Std Deviation 54.8 H, RDW Coeff of Lainey 17.2 H, Plt Count 195, MPV 12.2 H, Immature Gran % (Auto) 3.500 H, Neut % (Auto) 87.1 H, Lymph % (Auto) 4.8 L, [place] % (Auto) 4.4, Eos % (Auto) 0.0, Baso % (Auto) 0.2, Absolute Neuts (auto) 25.4 H, Absolute Lymphs (auto) 1.39, Nucleated RBC % 1.5, Differential Comment SCANNED 04/14/22 07:00: Sodium 144, Potassium 2.9 L, Chloride 108 H, Carbon Dioxide 31.0, Anion Gap 5, BUN 32 H, Creatinine 0.62, Estim Creat Clear Calc 89.14, Est GFR (MDRD) Af Amer 125, Est GFR (MDRD) Non-Af 103, BUN/Creatinine Ratio 51.9 H, Glucose 225 H, Calcium 6.4 L* 04/14/22 10:53: POC Glucose 153 H Micro: Microbiology 04/13/22 23:58 Stool Enteric Bacteriology - Final 04/13/22 11:42 Mucosa - Nose Respiratory Panel (PCR) - Final 04/11/22 15:30 Stool C. difficile DNA Amplification - Final 04/06/22 14:45 Blood Culture (Wb) - Arm Right Blood Culture - Final No growth in 5 days. 04/06/22 13:41 Blood Culture (Wb) - Anticubital Left Blood Culture - Final No growth in 5 days. 04/06/22 20:35 Sputum, Tracheal Aspirate Gram Stain - Final 04/06/22 20:35 Sputum, Tracheal Aspirate Respiratory Culture - Final Meth. resistant Staph. aureus 04/06/22 13:50 Urine Catheter - Bravo Urine Culture - Final Escherichia coli 04/06/22 21:40 Urine Catheter - Bravo Legionella Antigen - Final 04/06/22 21:40 Urine Catheter - Bravo Streptococcus pneumoniae Antigen (M - Final 04/06/22 14:50 Nasal Secretion SARS-CoV-2 & FLU Antigen (Rapid) - Final Rhythm Strip Rhythm Strip: A-fib Rate: 130 Physical Exam Const alert and no apparent distress General Appearance: cooperative, well kempt and well developed Orientation / Consciousness: awake, oriented to person and oriented to place HEENT normocephalic, head/scalp atraumatic and moist oral mucous membranes Eyes PERRL, EOMs intact bilaterally and conjunctivae normal Neck supple, no JVD, thyroid normal and no carotid bruits General: trachea midline Resp normal respiratory effort and no retractions Resp Narrative: Sounds are diminished bilaterally, inspiratory rales are noted over the right lung field at the base Auscultation: rales; Negative for rhonchi or wheezes Cardio Cardio Narrative: Heart rate and rhythm is irregular and tachycardic GI normal to inspection, nondistended, normoactive bowel sounds, soft to palpation, non-tender and non-distended Extremity no clubbing, cyanosis or edema Skin no rashes or lesions noted General Skin Exam: no breakdown Neuro oriented x3, CN's II-XII intact bilaterally, no focal motor deficits and no sensory deficits noted Sensorium / Orientation: awake, alert, oriented to person and oriented to place Speech: speech normal Psych affect normal Assessment & Plan Assessment/Plan (1) Atrial fibrillation with rapid ventricular response: PLAN: Plan 1. Acute on chronic combined respiratory failure-patient is now extubated and is on nasal cannula oxygen, pulmonary medicine is participating in her care #2 MRSA pneumonia-patient remains on antibiotics per infectious diseases #3 acute cystitis with E. coli-patient is currently on Zosyn #4 acute exacerbation of COPD-patient is currently receiving aerosol treatments as well as IV Solu-Medrol #5 paroxysmal A. fib-cardiology is participating in her care, patient is currently on oral amiodarone #6 type 2 diabetes-blood sugars will be monitored, sliding scale insulin will be used #7 acute kidney injury-kidney function has improved #8 metabolic encephalopathy-patient appears alert and is oriented as to self and place Charges/Coding Visit Charges Inpatient E&M: 09436 Subs Hosp L2
[2022-04-14 21:31] LABS: Vancomycin, Trough Level 14.6 ug/mL (5.0-15.0)
--- NOTE | 2022-04-14 21:52 | PCM.RX.CS ---
Consult Pharmacy has been consulted to manage selected antiobiotic: Vancomycin Type of Consult: Follow-up Prior Doses of Antibiotics Received/Current Regimen: Medications Vancomycin HCl (Vancomycin) 1,000 mg in 200 mls @ 200 mls/hr IV Q12H ELENA Vancomycin HCl 750 mg/ Sodium (Chloride) 265 mls @ 250 mls/hr IV Q12H ELENA Stop: 04/14/22 22:00 Last Admin: 04/14/22 21:35 Dose: 250 mls/hr Labs: Sodium 144 mmol/L (136-145) 04/14/22 07:00 Potassium 2.9 mmol/L (3.5-5.1) L 04/14/22 07:00 Chloride 108 mmol/L (98-107) H 04/14/22 07:00 Carbon Dioxide 31.0 mmol/L (21.0-32.0) 04/14/22 07:00 Anion Gap 5 (5-15) 04/14/22 07:00 BUN 32 mg/dL (7-18) H 04/14/22 07:00 Creatinine 0.62 mg/dL (0.55-1.02) 04/14/22 07:00 Est GFR (MDRD) Af Amer 125 mL/min (>60) 04/14/22 07:00 Est GFR (MDRD) Non-Af 103 mL/min (>60) 04/14/22 07:00 BUN/Creatinine Ratio 51.9 RATIO (10-20) H 04/14/22 07:00 Glucose 225 mg/dL (74-106) H 04/14/22 07:00 Vancomycin Trough 14.6 ug/mL (5.0-15.0) 04/14/22 20:50 Random Vancomycin 14.5 ug/mL (0.0-15.0) 04/09/22 06:05 Microbiology: Microbiology 04/13/22 23:58 Stool Enteric Bacteriology - Final 04/13/22 11:42 Mucosa - Nose Respiratory Panel (PCR) - Final 04/11/22 15:30 Stool C. difficile DNA Amplification - Final 04/06/22 14:45 Blood Culture (Wb) - Arm Right Blood Culture - Final No growth in 5 days. 04/06/22 13:41 Blood Culture (Wb) - Anticubital Left Blood Culture - Final No growth in 5 days. 04/06/22 20:35 Sputum, Tracheal Aspirate Gram Stain - Final 04/06/22 20:35 Sputum, Tracheal Aspirate Respiratory Culture - Final Meth. resistant Staph. aureus 04/06/22 13:50 Urine Catheter - Bravo Urine Culture - Final Escherichia coli 04/06/22 21:40 Urine Catheter - Bravo Legionella Antigen - Final 04/06/22 21:40 Urine Catheter - Bravo Streptococcus pneumoniae Antigen (M - Final 04/06/22 14:50 Nasal Secretion SARS-CoV-2 & FLU Antigen (Rapid) - Final Weight used for dosin kg Estimated Creatinine Clearance: 89 Goal Trough: 15-20 mcg/mL Pharmacy Plan for Drug Dosing: Vancomycin trough level was 14.6, drawn 12 hrs post-dose. This was just below the target range of 15-20. With the accompanying decrease in SCr (from 0.94 to 0.62), a new vanco dose of 1000mg q12h will be initiated. Another trough will be drawn prior to fourth dose of the new regimen. Pharmacy Service will continue to monitor and adjust dosing as required. Follow-Up Labs: Trough Vancomycin Labs to be done on [date and time ordered]: 04/16/22 @2100
[2022-04-14 22:00] LABS: Bedside Glucose 133 mg/dL (74-106)
[2022-04-14] MEDS: Dextrose 50%-Water 25 GM/50 ML DISP.SYRIN IV (23:01)
[2022-04-14 23:20] LABS: Bedside Glucose 54 mg/dL (74-106)
[2022-04-14 23:51] LABS: Bedside Glucose 158 mg/dL (74-106)
[2022-04-15] VITALS (31 sets, daily range): BP systolic 99–132; BP diastolic 44–102; PULSE 107–164; RESP 12–41; TEMP 37–37.6; O2SAT 90–100
[2022-04-15] MEDS: Albuterol 2.5 MG/3 ML VIAL.NEB. INHALATION ×2 (01:57→19:56)
[2022-04-15] MEDS: dilTIAZem 30 MG Tablet PO ×3 (04:41→12:05)
[2022-04-15] MEDS: Dextrose 50%-Water 25 GM/50 ML DISP.SYRIN IV (05:38)
[2022-04-15 05:51] LABS: Bedside Glucose 41 mg/dL (74-106)
[2022-04-15 06:15] LABS: Bedside Glucose 148 mg/dL (74-106)
--- NOTE | 2022-04-15 07:11 | PCM.PN.INT ---
Assessment & Plan Assessment/Plan (1) Acute and chronic respiratory failure, unspecified whether with hypoxia or hypercapnia: (2) Chronic atrial fibrillation with rapid ventricular response: (3) Bronchiectasis: QUALIFIERS: Bronchiectasis type: uncomplicated Qualified Code(s): J47.9 - Bronchiectasis, uncomplicated (4) Pneumonia: PLAN: Plan RECOMMENDATIONS: 1. Continue to wean supplemental oxygen to maintain saturations at or above 90%. 2. Dietary advancement per speech therapy recommendations. 3. Antimicrobials per ID recommendations. 4. Defer management of atrial fibrillation to cardiology. 5. Encourage incentive spirometer use and mobilize patient as tolerated. 6. Continue as needed bronchodilators and IV Solu-Medrol. 7. Continue Xarelto per home regimen. 8. The patient is medically stable for transfer out of the intensive care unit. IMPRESSIONS: 1. Acute on chronic combined respiratory failure secondary to bilateral pneumonia Improved. The patient has been successfully weaned from invasive mechanical ventilatory support and is doing well from a respiratory perspective on supplemental oxygen via nasal cannula. Plan to continue antimicrobials per ID recommendations. Supplemental oxygen can be weaned to maintain saturations at or above 90%. Continue to encourage incentive spirometer use and mobilize patient as tolerated. Diet can be advanced per speech therapy recommendations. 2. Encephalopathy Improved. Initially felt to be metabolic in etiology. CT head was unremarkable. 3. Acute kidney injury secondary to sepsis d/t pneumonia Resolved. Kidney function has improved with stabilization of hemodynamics. Continue to monitor urine output. No current indication for renal replacement therapy. 4. A. fib with RVR Continue systemic anticoagulation per baseline. Cardiology is following to assist with medical management of atrial fibrillation. 5. Anemia/hypertension/debility/bronchiectasis/rheumatoid lung disease Complicates care, management, recovery and prognosis. No indication for transfusions at this time. This note was generated with [employer] dictation software. It may contain incorrect words, spelling, and punctuation that were not noted in checking the note before signing. Subjective Subjective The patient was seen and examined at the bedside this morning. Events from the last 24 hours have been reviewed. The patient is currently afebrile, hemodynamically stable and maintaining appropriate oxygen saturations on 3 L/min via nasal cannula. The patient remains in atrial fibrillation with heart rates in the 120s. No overnight issues were identified by the nursing staff. The patient is currently documented to be overall net +8.8 L for the hospitalization. Objective Data Objective Data The patient's most recent lab work, culture data and imaging studies have all been personally reviewed. Sputum culture dated April 06 was positive for MRSA. Urine culture dated April 06 was positive for E. coli. Repeat blood cultures are currently pending. Vital Signs: Vital Signs Temp Pulse Resp BP Pulse Ox O2 Del Method O2 Flow Rate 99.4 F H 120 H 30 H 113/72 100 Nasal Cannula 3 04/15/22 06:00 04/15/22 06:00 04/15/22 06:00 04/15/22 06:00 04/15/22 06:00 04/15/22 06:00 04/15/22 06:00 FiO2 30 04/14/22 06:00 Oxygen Flow Rate (L/min) 3 Oxygen Delivery Method Nasal Cannula Weight: 173 lb 8 oz Body Mass Index (BMI) 26.6 Intake & Output: Intake and Output for Last 24 Hours 04/13/22 04/14/22 04/15/22 23:59 23:59 23:59 Intake Total 3906.57 / 4063.27 2543.89 / 2543.89 0 / 0 Output Total 5050 / 5050 3200 / 3200 225 / 225 Balance -1143.43 / -986.73 -656.11 / -656.11 -225 / -225 Lab / Micro Data Attestation: I reviewed the patient's lab results. Result Diagrams: 04/15/22 08:20 04/15/22 08:20 Labs: Laboratory Results - last 24 hr 04/11/22 06:45: Diff Path Review Reviewed 04/14/22 07:00: WBC 29.2 H, RBC 3.62 L, Hgb 11.2 L, Hct 37.3, MCV 103.0 H, MCH 30.9, MCHC 30.0 L, RDW Std Deviation 54.8 H, RDW Coeff of Lainey 17.2 H, Plt Count 195, MPV 12.2 H, Immature Gran % (Auto) 3.500 H, Neut % (Auto) 87.1 H, Lymph % (Auto) 4.8 L, [place] % (Auto) 4.4, Eos % (Auto) 0.0, Baso % (Auto) 0.2, Absolute Neuts (auto) 25.4 H, Absolute Lymphs (auto) 1.39, Nucleated RBC % 1.5, Differential Comment SCANNED 04/14/22 07:00: Sodium 144, Potassium 2.9 L, Chloride 108 H, Carbon Dioxide 31.0, Anion Gap 5, BUN 32 H, Creatinine 0.62, Estim Creat Clear Calc 89.14, Est GFR (MDRD) Af Amer 125, Est GFR (MDRD) Non-Af 103, BUN/Creatinine Ratio 51.9 H, Glucose 225 H, Calcium 6.4 L* 04/14/22 10:53: POC Glucose 153 H 04/14/22 16:51: POC Glucose 133 H 04/14/22 20:50: Vancomycin Trough 14.6 04/14/22 22:52: POC Glucose 54 L 04/14/22 23:31: POC Glucose 158 H 04/15/22 05:30: POC Glucose 41 L* 04/15/22 05:55: POC Glucose 148 H Micro: Microbiology 04/13/22 23:58 Stool Enteric Bacteriology - Final 04/13/22 11:42 Mucosa - Nose Respiratory Panel (PCR) - Final 04/11/22 15:30 Stool C. difficile DNA Amplification - Final 04/06/22 14:45 Blood Culture (Wb) - Arm Right Blood Culture - Final No growth in 5 days. 04/06/22 13:41 Blood Culture (Wb) - Anticubital Left Blood Culture - Final No growth in 5 days. 04/06/22 20:35 Sputum, Tracheal Aspirate Gram Stain - Final 04/06/22 20:35 Sputum, Tracheal Aspirate Respiratory Culture - Final Meth. resistant Staph. aureus 04/06/22 13:50 Urine Catheter - Bravo Urine Culture - Final Escherichia coli 04/06/22 21:40 Urine Catheter - Bravo Legionella Antigen - Final 04/06/22 21:40 Urine Catheter - Bravo Streptococcus pneumoniae Antigen (M - Final 04/06/22 14:50 Nasal Secretion SARS-CoV-2 & FLU Antigen (Rapid) - Final ABG Data ABG results: ABG 04/13/22 07:38 Specimen Type ART Sample Site L Radial pH 7.43 Bicarbonate Actual 27.8 H Total CO2 29 Base Excess 4 H O2 Saturation 94 L O2 % 30 ABG pCO2 41.5 ABG pO2 70 L Adán Test Positive Respiration Rate 12 O2 Delivery Device Adult Vent Vent Mode AC Tidal Volume 480 POC PEEP 5 Radiography Diagnostic Testing: Radiology Impression Brain CT 04/13/22 08:36 IMPRESSION: Persistent right side maxillary sinusitis with an air-fluid level. Persistent bilateral mastoiditis with air-fluid levels within the left greater than right mastoid air cells. Fluid surrounding the right-sided ossicles consistent with mastoiditis persistent right-sided otitis media. No visualized acute hemorrhage infarct or edema. If findings are suspicious for acute infarct recommend dedicated further imaging such as CT angiogram of the brain or MRI. Electronically Signed: Gracie Mercado MD at 9:38 EST , ADDENDUM: 04/13/22 0948 IMPRESSION: Persistent right side maxillary sinusitis with an air-fluid level. Persistent bilateral mastoiditis with air-fluid levels within the left greater than right mastoid air cells. Fluid surrounding the right-sided ossicles consistent with mastoiditis persistent right-sided otitis media. No visualized acute hemorrhage infarct or edema. If findings are suspicious for acute infarct recommend dedicated further imaging such as CT angiogram of the brain or MRI. N.B. : The above Results were Read Back by Gracie Mercado MD to Augusta Ramos OT, and understanding confirmed on 04/13/2022 09:41:08 (ET). Electronically Signed: Gracie Mercado MD at 9:38 EST , Abdomen/Pelvis CT 04/13/22 10:57 IMPRESSION: Hepatic steatosis. Chronic interstitial lung disease suspected. Air-fluid levels within the colon suggesting a diarrheal forming illness. There is a decompressed appearance of the sigmoid colon with a few diverticula without diverticulitis. There is a visualized foreign body within the rectum possible distended rectal tube. There is a visualized outpouching that appears to be peripheral to the uterus which may represent a fibroid. There is a thickened appearance of the endometrium for patient''s age. Consider follow-up pelvic ultrasound when appropriate. Stable left renal cyst. The bladder is decompressed around a Bravo cannot exclude cystitis. Electronically Signed: Gracie Mercado MD at 15:32 EST , Chest CTA 04/13/22 10:57 IMPRESSION: Severe motion artifact limits this evaluation. Despite limitations: Questionable small volume acute pulmonary emboli in the left lower lobe segmental and subsegmental pulmonary arteries. No evidence of right heart strain. Redemonstration of chronic interstitial lung disease, similar in appearance to most recent prior on 09/11/2020. Scattered areas of groundglass and nodular opacities could represent superimposed infection. Electronically Signed: Nghia Nguyen MD at 17:31 EST , ADDENDUM: 04/13/22 1749 IMPRESSION: Severe motion artifact limits this evaluation. Despite limitations: Questionable small volume acute pulmonary emboli in the left lower lobe segmental and subsegmental pulmonary arteries. No evidence of right heart strain. Redemonstration of chronic interstitial lung disease, similar in appearance to most recent prior on 09/11/2020. Scattered areas of groundglass and nodular opacities could represent superimposed infection. N.B. : Fabian Hull RN, confirmed on 04/13/2022 17:42:24 (ET) that the healthcare facility has received the radiology report. Electronically Signed: Nghia Nguyen MD at 17:31 EST , Rhythm Strip Rhythm Strip: A-fib Rate: 130 Physical Exam Const alert and no apparent distress General Appearance: cooperative HEENT normocephalic and head/scalp atraumatic HEENT Narrative: Dry mucous membranes Eyes PERRL, EOMs intact bilaterally and conjunctivae normal Neck supple General: trachea midline Chest inspection of chest normal Resp Auscultation: diminished lung sounds; Negative for rales, rhonchi or wheezes Cardio S1 normal heart sound, S2 normal heart sound, no murmurs, no rub and no gallops Rate: tachycardic Rhythm: abnormal rhythm irregularly irregular GI normal to inspection, nondistended, normoactive bowel sounds Extremity General Extremity: edema Skin no rashes or lesions noted Neuro no focal motor deficits Psych Mood & Affect: flat affect Charges/Coding Visit Charges Inpatient E&M: 60145 Subs Hosp L3
[2022-04-15 08:47] LABS: Absolute Lymphocyte Count 1.06 X10^3/uL (0.83-4.51); Absolute Neutrophil Count 28.9 X10^3/uL (2.0-7.7); Basophil# 0.07 X10^3/uL; Basophil% 0.2 % (0-1); Hematocrit 34.3 % (37-47); Hemoglobin 10.8 g/dL (12.0-15.0); Lymphocyte # 1.06 X10^3/ul (0.83-4.51); Lymphocyte % 3.4 % (19-41); Mean Corp Hgb Conc 31.5 g/dL (32-36); Mean Corpuscular Volume 101.5 fL (81-99); Mean Platelet Vol. 12.9 fl (6.2-12.0); Monocyte# 0.96 X10^3/uL; Monocyte% 3.1 % (0-10); NRBC Flagged by Analyzer 0.8 % (0-5); Neutrophil # 28.93 X10^3/uL (2.7-7.7); Neutrophil % 91.9 % (47-70); POSITIVE COUNT YES; POSITIVE DIFFERENTIAL YES; Platelet Count 193 K/mm3 (150-450); RBC Distribution Width CV 16.8 % (11.6-14.6); RBC Distribution Width SD 52.3 fl (35.1-43.9); Red Blood Count 3.38 M/mm3 (4.2-5.4)
[2022-04-15 08:50] LABS: Differential Indicated SCAN CRITERIA MET; White Blood Count 31.5 K/mm3 (4.4-11.0)
[2022-04-15 08:53] LABS: Anion Gap 5 (5-15); BUN 25 mg/dL (7-18); BUN/Creat Ratio 46.2 RATIO (10-20); Calcium,Total 6.7 mg/dL (8.5-10.1); Chloride 107 mmol/L (98-107); Creatinine, Serum 0.54 mg/dL (0.55-1.02); EST Glomerular Filtration Rate 120 mL/min (>60); Est Glom Filt Rate - Afr Amer 145 mL/min (>60); Estimated Creatinine Clearance 102.35 ml/min; Glucose 56 mg/dL (74-106); Potassium 3.1 mmol/L (3.5-5.1); Sodium Level 148 mmol/L (136-145)
[2022-04-15 09:52] LABS: Differential Comment SCANNED
--- NOTE | 2022-04-15 10:19 | CASEMGMT ---
Pt's case mgr Lety lees [facility] updated on pt's plan of care and anticipated DC plan for SNF LOC. Lety can be reached at [phone] if assistance needed. Rai Hernandez RN CM
[2022-04-15] MEDS: Vancomycin IV 1,000 MG/200 ML BAG 200 MG IV ×2 (10:51→21:53)
[2022-04-15] MEDS: Rivaroxaban 20 MG Tablet PO (10:52)
[2022-04-15] MEDS: Metoprolol Tartrate 100 MG Tablet 150 MG GT (10:52)
[2022-04-15] MEDS: Amiodarone 200 MG Tablet PO (10:52)
--- NOTE | 2022-04-15 11:00 | PN.CARD_ITS ---
Subjective Subjective Extubated. Remains in atrial fibrillation. Ventricular rate not controlled. Objective Data Vital Signs: Vital Signs Temp Pulse Resp BP Pulse Ox O2 Del Method O2 Flow Rate 99.2 F H 164 H 28 H 115/79 94 Nasal Cannula 4 04/15/22 08:00 04/15/22 10:52 04/15/22 08:00 04/15/22 08:00 04/15/22 08:07 04/15/22 08:07 04/15/22 08:07 FiO2 30 04/14/22 06:00 Oxygen Flow Rate (L/min) 4 Oxygen Delivery Method Nasal Cannula Weight: 173 lb 7.99 oz Body Mass Index (BMI) 26.6 Intake & Output: Intake and Output for Last 24 Hours 04/13/22 04/14/22 04/15/22 23:59 23:59 23:59 Intake Total 3906.57 / 4063.27 2543.89 / 2543.89 0 / 0 Output Total 5050 / 5050 3200 / 3200 225 / 225 Balance -1143.43 / -986.73 -656.11 / -656.11 -225 / -225 Lab / Micro Data Result Diagrams: 04/15/22 08:20 04/15/22 08:20 Labs: Laboratory Results - last 24 hr 04/11/22 06:45: Diff Path Review Reviewed 04/14/22 10:53: POC Glucose 153 H 04/14/22 16:51: POC Glucose 133 H 04/14/22 20:50: Vancomycin Trough 14.6 04/14/22 22:52: POC Glucose 54 L 04/14/22 23:31: POC Glucose 158 H 04/15/22 05:30: POC Glucose 41 L* 04/15/22 05:55: POC Glucose 148 H 04/15/22 08:20: WBC 31.5 H*, RBC 3.38 L, Hgb 10.8 L, Hct 34.3 L, MCV 101.5 H, MCH 32.0, MCHC 31.5 L, RDW Std Deviation 52.3 H, RDW Coeff of Lainey 16.8 H, Plt Count 193, MPV 12.9 H, Immature Gran % (Auto) 1.400 H, Neut % (Auto) 91.9 H, Lymph % (Auto) 3.4 L, [place] % (Auto) 3.1, Eos % (Auto) 0.0, Baso % (Auto) 0.2, Absolute Neuts (auto) 28.9 H, Absolute Lymphs (auto) 1.06, Nucleated RBC % 0.8, Differential Comment SCANNED, Diff Path Review May foll 04/15/22 08:20: Sodium 148 H, Potassium 3.1 L, Chloride 107, Carbon Dioxide 36.0 H, Anion Gap 5, BUN 25 H, Creatinine 0.54 L, Estim Creat Clear Calc 102.35, Est GFR (MDRD) Af Amer 145, Est GFR (MDRD) Non-Af 120, BUN/Creatinine Ratio 46.2 H, Glucose 56 L, Calcium 6.7 L Micro: Microbiology 04/12/22 08:10 Blood Culture (Wb) - No Site/Description Given Blood Culture - Preliminary No growth in 48 hours. 04/13/22 23:58 Stool Enteric Bacteriology - Final Rhythm Strip Rhythm Strip: A-fib Rate: 130 Cardiology Labs/Tests 04/15/22 08:20: WBC 31.5 H*, RBC 3.38 L, Hgb 10.8 L, Hct 34.3 L, MCV 101.5 H, MCH 32.0, MCHC 31.5 L, Plt Count 193, MPV 12.9 H, Immature Gran % (Auto) 1.400 H , Neut % (Auto) 91.9 H, Lymph % (Auto) 3.4 L, [place] % (Auto) 3.1, Eos % (Auto) 0.0, Baso % (Auto) 0.2, Absolute Neuts (auto) 28.9 H, Nucleated RBC % 0.8 04/15/22 08:20: Sodium 148 H, Potassium 3.1 L, Chloride 107, Carbon Dioxide 36.0 H, Anion Gap 5, BUN 25 H, Creatinine 0.54 L, Est GFR (MDRD) Af Amer 145, Est GFR (MDRD) Non-Af 120, BUN/Creatinine Ratio 46.2 H, Glucose 56 L, Calcium 6.7 L Rhythm: EKG: ECHO: Stress Test: Cardiac Cath: PCI: CT Surgery: Holter monitor: EPS: PPM: CXR: Chest CT Scan: Physical Exam Narrative Appears comfortable. Assessment & Plan Assessment/Plan (1) Atrial fibrillation with rapid ventricular response: PLAN: Increase diltiazem for better heart rate control. Plan would be to control heart rate with metoprolol and calcium channel ruby and if needed, with addition of digoxin. We will try to wean off amiodarone. (2) Acute and chronic respiratory failure, unspecified whether with hypoxia or hypercapnia: PLAN: Extubated. (3) Pneumonia: PLAN: MRSA pneumonia. As per critical care. (4) Bronchiectasis: QUALIFIERS: Bronchiectasis type: uncomplicated Qualified Code(s): J47.9 - Bronchiectasis, uncomplicated PLAN: As per pulmonary critical care.
[2022-04-15 12:25] LABS: Pathologist Review Reviewed
[2022-04-15 13:05] LABS: Bedside Glucose 88 mg/dL (74-106)
--- NOTE | 2022-04-15 13:15 | CASEMGMT ---
Social Work Consult: [facility] placement Referral source: SHALOM ZAVALA This manager social services met with patient in room. Introduced self and manager social services role. Patient having difficulty verbally communicating. This manager social services broached conversation of halfway placement. Patient shaking head no. This manager social services provided support to patient. Patient agreeable to this manager social services following up with patient later as patient is reporting to have pain. Patient having difficulty communicating at this time. Nursing reporting that patient is not doing well medically. Social Work to follow up with patient at a later time. Tra Delgado MSW, CHERRY
--- NOTE | 2022-04-15 13:48 | PCM.PN.ID ---
Physical Exam Narrative Sleeping, no fever Const no apparent distress Resp Auscultation: diminished lung sounds Cardio regular rate and regular rhythm GI soft to palpation, non-tender and non-distended Skin no rashes or lesions noted ID ID: Route of nutrition/ use of supplements: [] Nutritional Intake: [] IV Site: [] Bravo Catheter: [] Assessment & Plan Assessment/Plan (1) Pneumonia: PLAN: sespsis due to MRSA pneumonia with resp failure. Ucx with ecoli but no pyuria on UA. UAgs neg. Covid and flu Ag neg on admit. Head CT shows bilat mastoiditis. Cont vanc. Cdiff neg here. Remains extubated, afebrile. Plan on short course of po abx at discharge. Will follow (2) Atrial fibrillation with rapid ventricular response: (3) Acute and chronic respiratory failure, unspecified whether with hypoxia or hypercapnia: (4) Metabolic encephalopathy: (5) COPD (chronic obstructive pulmonary disease): QUALIFIERS: COPD type: unspecified COPD Qualified Code(s): J44.9 - Chronic obstructive pulmonary disease, unspecified (6) Diarrhea:
[2022-04-15] MEDS: Potassium Chloride 10mEq/100mL 10 MEQ/100 ML IV.SOLN. 100 MEQ IV BOLUS ×3 (15:34→18:09)
[2022-04-15] MEDS: dilTIAZem 60 MG Tablet PO (17:01)
--- NOTE | 2022-04-15 17:36 | PCM.PN.HOSP ---
Subjective Subjective Patient was seen and examined today, she remains on nasal cannula oxygen, she is still confused at times and is not able to take oral medications at this time. Her potassium was low today, I ordered K riders for the patient. Objective Data Objective Data Vital Signs: Vital Signs Temp Pulse Resp BP Pulse Ox O2 Del Method O2 Flow Rate 99.2 F H 122 H 35 H 115/94 H 100 Nasal Cannula 4 04/15/22 17:07 04/15/22 17:07 04/15/22 17:07 04/15/22 17:07 04/15/22 17:07 04/15/22 17:07 04/15/22 17:07 FiO2 30 04/14/22 06:00 Oxygen Flow Rate (L/min) 4 Oxygen Delivery Method Nasal Cannula Weight: 78.698 kg Body Mass Index (BMI) 26.6 Intake & Output: Intake and Output for Last 24 Hours 04/13/22 04/14/22 04/15/22 23:59 23:59 23:59 Intake Total 3906.57 / 4063.27 2543.89 / 2543.89 300 / 300 Output Total 5050 / 5050 3200 / 3200 225 / 225 Balance -1143.43 / -986.73 -656.11 / -656.11 75 / 75 Lab / Micro Data Result Diagrams: 04/15/22 08:20 04/15/22 08:20 Labs: Laboratory Results - last 24 hr 04/14/22 16:51: POC Glucose 133 H 04/14/22 20:50: Vancomycin Trough 14.6 04/14/22 22:52: POC Glucose 54 L 04/14/22 23:31: POC Glucose 158 H 04/15/22 05:30: POC Glucose 41 L* 04/15/22 05:55: POC Glucose 148 H 04/15/22 08:20: WBC 31.5 H*, RBC 3.38 L, Hgb 10.8 L, Hct 34.3 L, MCV 101.5 H, MCH 32.0, MCHC 31.5 L, RDW Std Deviation 52.3 H, RDW Coeff of Lainey 16.8 H, Plt Count 193, MPV 12.9 H, Immature Gran % (Auto) 1.400 H, Neut % (Auto) 91.9 H, Lymph % (Auto) 3.4 L, [place] % (Auto) 3.1, Eos % (Auto) 0.0, Baso % (Auto) 0.2, Absolute Neuts (auto) 28.9 H, Absolute Lymphs (auto) 1.06, Nucleated RBC % 0.8, Differential Comment SCANNED, Diff Path Review Reviewed 04/15/22 08:20: Sodium 148 H, Potassium 3.1 L, Chloride 107, Carbon Dioxide 36.0 H, Anion Gap 5, BUN 25 H, Creatinine 0.54 L, Estim Creat Clear Calc 102.35, Est GFR (MDRD) Af Amer 145, Est GFR (MDRD) Non-Af 120, BUN/Creatinine Ratio 46.2 H, Glucose 56 L, Calcium 6.7 L 04/15/22 12:04: POC Glucose 88 Micro: Microbiology 04/12/22 08:10 Blood Culture (Wb) - No Site/Description Given Blood Culture - Preliminary No growth in 48 hours. 04/13/22 23:58 Stool Enteric Bacteriology - Final 04/13/22 11:42 Mucosa - Nose Respiratory Panel (PCR) - Final 04/11/22 15:30 Stool C. difficile DNA Amplification - Final 04/06/22 14:45 Blood Culture (Wb) - Arm Right Blood Culture - Final No growth in 5 days. 04/06/22 13:41 Blood Culture (Wb) - Anticubital Left Blood Culture - Final No growth in 5 days. 04/06/22 20:35 Sputum, Tracheal Aspirate Gram Stain - Final 04/06/22 20:35 Sputum, Tracheal Aspirate Respiratory Culture - Final Meth. resistant Staph. aureus 04/06/22 13:50 Urine Catheter - Bravo Urine Culture - Final Escherichia coli 04/06/22 21:40 Urine Catheter - Bravo Legionella Antigen - Final 04/06/22 21:40 Urine Catheter - Bravo Streptococcus pneumoniae Antigen (M - Final 04/06/22 14:50 Nasal Secretion SARS-CoV-2 & FLU Antigen (Rapid) - Final Rhythm Strip Rhythm Strip: A-fib Rate: 130 Physical Exam Narrative Patient responds to simple questions appropriately at times but she remains confused overall General Appearance: cooperative, well kempt and well developed Orientation / Consciousness: somewhat somnolent HEENT normocephalic, head/scalp atraumatic and moist oral mucous membranes Eyes PERRL, EOMs intact bilaterally and conjunctivae normal Neck supple, no JVD, thyroid normal and no carotid bruits General: trachea midline Resp normal respiratory effort and no retractions Resp Narrative: Sounds are diminished bilaterally, inspiratory rales are noted over the right lung field at the base Auscultation: rales; Negative for rhonchi or wheezes Cardio Cardio Narrative: Heart rate and rhythm is irregular and tachycardic GI normal to inspection, nondistended, normoactive bowel sounds, soft to palpation, non-tender and non-distended Extremity no clubbing, cyanosis or edema Skin no rashes or lesions noted General Skin Exam: no breakdown Neuro oriented x3, CN's II-XII intact bilaterally, no focal motor deficits and no sensory deficits noted Sensorium / Orientation: Patient is somnolent with confusion Speech: speech normal Psych Patient has a flat affect, she is somewhat confused l Assessment & Plan Assessment/Plan (1) Atrial fibrillation with rapid ventricular response: PLAN: Plan 1. Acute on chronic combined respiratory failure-patient is now currently stable on 4 L by nasal cannula #2 MRSA pneumonia-patient remains on antibiotics per infectious diseases #3 acute cystitis with E. coli-patient is currently on Zosyn #4 acute exacerbation of COPD-patient is currently receiving aerosol treatments as well as IV Solu-Medrol #5 paroxysmal A. fib-cardiology is participating in her care, patient is currently on oral amiodarone #6 type 2 diabetes-blood sugars will be monitored, sliding scale insulin will be used #7 acute kidney injury-kidney function has improved #8 metabolic encephalopathy-patient continues to exhibit confusion, supportive care will be given Charges/Coding Visit Charges Inpatient E&M: 01430 Subs Hosp L2
[2022-04-15 20:35] LABS: Allen Test Positive; Base Excess 9 mmol/L (-2 to +2); Bicarbonate 33.3 mmol/L (22-26); Blood Gas Specimen Type ART; O2 Delivery Device Cannula; PO2 85 mmHG (75-100); SITE L Radial; SO2 97 % (95-99); Total Carbon Dioxide 35 mmol/L; pH 7.43 (7.35-7.45)
--- NOTE | 2022-04-15 20:49 | PCM.HOSP.N ---
Hospitalist Note Patient with increased dyspnea concerns, increased RR, concern overloaded, will obtain ABG, add aerosols per RT, dose lasix 40 mg IV x 1 now.
[2022-04-15] MEDS: 0.9% Saline Lock 10 ML Syringe IV (21:00)
[2022-04-15] MEDS: Furosemide 40 MG/4 ML Vial IV (21:00)
--- NOTE | 2022-04-15 22:48 | PCM.HOSP.N ---
Hospitalist Note Patient per ICU staff failing swallow evaluation this evening. Had been able to take meds during day per report. Due for BB and cardizem currently. Will transition temporarily pending ST evaluation to IV cardizem schuled boluses but if not effective may need drip as well as scheduled IV lopressor.
[2022-04-15] MEDS: Metoprolol Tartrate 5 MG/5 ML Vial IV (23:36)
[2022-04-15] MEDS: dilTIAZem 25 MG/5 ML Vial 10 MG IV BOLUS (23:36)
[2022-04-16] VITALS (35 sets, daily range): BP systolic 74–125; BP diastolic 53–97; PULSE 95–155; RESP 20–34; TEMP 37.1–37.4; O2SAT 26–99
--- NOTE | 2022-04-16 00:22 | CPS ---
Attempted bipap at 12/6 R12 and 30%. Pt ripped off mask after only 15 min of use. Pt refused to go back on. Pt on 5L, ABG obtained at 2024 SaO2 96%
[2022-04-16] MEDS: Dextrose 50%-Water 25 GM/50 ML DISP.SYRIN IV ×3 (00:42→16:42)
[2022-04-16 01:45] LABS: Bedside Glucose 115 mg/dL (74-106)
[2022-04-16 01:45] LABS: Bedside Glucose 47 mg/dL (74-106)
[2022-04-16] MEDS: Albuterol 2.5 MG/3 ML VIAL.NEB. INHALATION (02:00)
[2022-04-16] MEDS: dilTIAZem 25 MG/5 ML Vial 10 MG IV BOLUS (05:26)
[2022-04-16] MEDS: Metoprolol Tartrate 5 MG/5 ML Vial IV (05:30)
[2022-04-16 06:30] LABS: Bedside Glucose 38 mg/dL (74-106)
[2022-04-16 07:05] LABS: Bedside Glucose 75 mg/dL (74-106)
--- NOTE | 2022-04-16 08:00 | PCM.PN.INT ---
Assessment & Plan Assessment/Plan (1) Acute and chronic respiratory failure, unspecified whether with hypoxia or hypercapnia: (2) Chronic atrial fibrillation with rapid ventricular response: (3) Bronchiectasis: QUALIFIERS: Bronchiectasis type: uncomplicated Qualified Code(s): J47.9 - Bronchiectasis, uncomplicated (4) Pneumonia: PLAN: Plan RECOMMENDATIONS: 1. Continue to wean supplemental oxygen to maintain saturations at or above 90%. 2. Dietary advancement per speech therapy recommendations. 3. Antimicrobials per ID recommendations. 4. Defer management of atrial fibrillation to cardiology. 5. Encourage incentive spirometer use and mobilize patient as tolerated. 6. Continue as needed bronchodilators and IV Solu-Medrol. 7. Continue Xarelto per home regimen. IMPRESSIONS: 1. Acute on chronic combined respiratory failure secondary to bilateral pneumonia Improved. The patient has been successfully weaned from invasive mechanical ventilatory support and is doing well from a respiratory perspective on supplemental oxygen via nasal cannula. Plan to continue antimicrobials per ID recommendations. Supplemental oxygen can be weaned to maintain saturations at or above 90%. Continue to encourage incentive spirometer use and mobilize patient as tolerated. Diet can be advanced per speech therapy recommendations. 2. Encephalopathy Improved. Initially felt to be metabolic in etiology. CT head was unremarkable. 3. Acute kidney injury secondary to sepsis d/t pneumonia Resolved. Kidney function has improved with stabilization of hemodynamics. Continue to monitor urine output. No current indication for renal replacement therapy. 4. A. fib with RVR Continue systemic anticoagulation per baseline. Cardiology is following to assist with medical management of atrial fibrillation. 5. Anemia/hypertension/debility/bronchiectasis/rheumatoid lung disease Complicates care, management, recovery and prognosis. No indication for transfusions at this time. This note was generated with [employer] dictation software. It may contain incorrect words, spelling, and punctuation that were not noted in checking the note before signing. Subjective Subjective The patient was seen and examined at the bedside this morning. Events from the last 24 hours have been reviewed. The patient is currently afebrile, hemodynamically stable and maintaining appropriate oxygen saturations on 5 L/min via nasal cannula. The patient is currently documented to be overall net +8.1 L for the hospitalization. She denies any resting shortness of breath. The patient remains in atrial fibrillation with an elevated heart rate. Objective Data Objective Data The patient's most recent lab work, culture data and imaging studies have all been personally reviewed. Sputum culture dated April 06 was positive for MRSA. Urine culture dated April 06 was positive for E. coli. Repeat blood cultures have not demonstrated any growth to date. Vital Signs: Vital Signs Temp Pulse Resp BP Pulse Ox O2 Del Method O2 Flow Rate 98.8 F 131 H 25 H 104/88 H 90 Nasal Cannula 5 04/16/22 07:00 04/16/22 07:00 04/16/22 07:00 04/16/22 07:00 04/16/22 07:00 04/16/22 07:56 04/16/22 07:56 FiO2 40 04/15/22 20:48 Oxygen Flow Rate (L/min) 5 Oxygen Delivery Method Nasal Cannula Weight: 175 lb Body Mass Index (BMI) 26.6 Intake & Output: Intake and Output for Last 24 Hours 04/14/22 04/15/22 04/16/22 23:59 23:59 23:59 Intake Total 2543.89 / 2543.89 700 / 700 Output Total 3200 / 3200 225 / 1025 1450 / 1450 Balance -656.11 / -656.11 475 / -325 -1450 / -1450 Lab / Micro Data Attestation: I reviewed the patient's lab results. Result Diagrams: 04/16/22 08:27 04/16/22 08:27 Labs: Laboratory Results - last 24 hr 04/15/22 08:20: WBC 31.5 H*, RBC 3.38 L, Hgb 10.8 L, Hct 34.3 L, MCV 101.5 H, MCH 32.0, MCHC 31.5 L, RDW Std Deviation 52.3 H, RDW Coeff of Lainey 16.8 H, Plt Count 193, MPV 12.9 H, Immature Gran % (Auto) 1.400 H, Neut % (Auto) 91.9 H, Lymph % (Auto) 3.4 L, [place] % (Auto) 3.1, Eos % (Auto) 0.0, Baso % (Auto) 0.2, Absolute Neuts (auto) 28.9 H, Absolute Lymphs (auto) 1.06, Nucleated RBC % 0.8, Differential Comment SCANNED, Diff Path Review Reviewed 04/15/22 08:20: Sodium 148 H, Potassium 3.1 L, Chloride 107, Carbon Dioxide 36.0 H, Anion Gap 5, BUN 25 H, Creatinine 0.54 L, Estim Creat Clear Calc 102.35, Est GFR (MDRD) Af Amer 145, Est GFR (MDRD) Non-Af 120, BUN/Creatinine Ratio 46.2 H, Glucose 56 L, Calcium 6.7 L 04/15/22 12:04: POC Glucose 88 04/16/22 00:36: POC Glucose 47 L 04/16/22 01:24: POC Glucose 115 H 04/16/22 06:10: POC Glucose 38 L* 04/16/22 06:46: POC Glucose 75 Micro: Microbiology 04/12/22 08:10 Blood Culture (Wb) - No Site/Description Given Blood Culture - Preliminary No growth in 48 hours. 04/13/22 23:58 Stool Enteric Bacteriology - Final 04/13/22 11:42 Mucosa - Nose Respiratory Panel (PCR) - Final 04/11/22 15:30 Stool C. difficile DNA Amplification - Final 04/06/22 14:45 Blood Culture (Wb) - Arm Right Blood Culture - Final No growth in 5 days. 04/06/22 13:41 Blood Culture (Wb) - Anticubital Left Blood Culture - Final No growth in 5 days. 04/06/22 20:35 Sputum, Tracheal Aspirate Gram Stain - Final 04/06/22 20:35 Sputum, Tracheal Aspirate Respiratory Culture - Final Meth. resistant Staph. aureus 04/06/22 13:50 Urine Catheter - Bravo Urine Culture - Final Escherichia coli 04/06/22 21:40 Urine Catheter - Bravo Legionella Antigen - Final 04/06/22 21:40 Urine Catheter - Bravo Streptococcus pneumoniae Antigen (M - Final 04/06/22 14:50 Nasal Secretion SARS-CoV-2 & FLU Antigen (Rapid) - Final ABG Data ABG results: ABG 04/15/22 20:25 Specimen Type ART Sample Site L Radial pH 7.43 Bicarbonate Actual 33.3 H Total CO2 35 Base Excess 9 H O2 Saturation 97 ABG pCO2 50.0 H ABG pO2 85 Adán Test Positive O2 Delivery Device Cannula Liter Flow 5.0 Radiography Diagnostic Testing: Radiology Impression Brain CT 04/13/22 08:36 IMPRESSION: Persistent right side maxillary sinusitis with an air-fluid level. Persistent bilateral mastoiditis with air-fluid levels within the left greater than right mastoid air cells. Fluid surrounding the right-sided ossicles consistent with mastoiditis persistent right-sided otitis media. No visualized acute hemorrhage infarct or edema. If findings are suspicious for acute infarct recommend dedicated further imaging such as CT angiogram of the brain or MRI. Electronically Signed: Gracie Mercado MD at 9:38 EST , ADDENDUM: 04/13/22 0948 IMPRESSION: Persistent right side maxillary sinusitis with an air-fluid level. Persistent bilateral mastoiditis with air-fluid levels within the left greater than right mastoid air cells. Fluid surrounding the right-sided ossicles consistent with mastoiditis persistent right-sided otitis media. No visualized acute hemorrhage infarct or edema. If findings are suspicious for acute infarct recommend dedicated further imaging such as CT angiogram of the brain or MRI. N.B. : The above Results were Read Back by Gracie Mercado MD to Augusta Ramos OT, and understanding confirmed on 04/13/2022 09:41:08 (ET). Electronically Signed: Gracie Mercado MD at 9:38 EST Reading Location ID and State: [id number] / [place] Tel , Service support , Abdomen/Pelvis CT 04/13/22 10:57 IMPRESSION: Hepatic steatosis. Chronic interstitial lung disease suspected. Air-fluid levels within the colon suggesting a diarrheal forming illness. There is a decompressed appearance of the sigmoid colon with a few diverticula without diverticulitis. There is a visualized foreign body within the rectum possible distended rectal tube. There is a visualized outpouching that appears to be peripheral to the uterus which may represent a fibroid. There is a thickened appearance of the endometrium for patient''s age. Consider follow-up pelvic ultrasound when appropriate. Stable left renal cyst. The bladder is decompressed around a Bravo cannot exclude cystitis. Electronically Signed: Gracie Mercado MD at 15:32 EST , Chest CTA 04/13/22 10:57 IMPRESSION: Severe motion artifact limits this evaluation. Despite limitations: Questionable small volume acute pulmonary emboli in the left lower lobe segmental and subsegmental pulmonary arteries. No evidence of right heart strain. Redemonstration of chronic interstitial lung disease, similar in appearance to most recent prior on 09/11/2020. Scattered areas of groundglass and nodular opacities could represent superimposed infection. Electronically Signed: Nghia Nguyen MD at 17:31 EST , ADDENDUM: 04/13/22 1749 IMPRESSION: Severe motion artifact limits this evaluation. Despite limitations: Questionable small volume acute pulmonary emboli in the left lower lobe segmental and subsegmental pulmonary arteries. No evidence of right heart strain. Redemonstration of chronic interstitial lung disease, similar in appearance to most recent prior on 09/11/2020. Scattered areas of groundglass and nodular opacities could represent superimposed infection. N.B. : Fabian Hull RN, confirmed on 04/13/2022 17:42:24 (ET) that the healthcare facility has received the radiology report. Electronically Signed: Nghia Nguyen MD at 17:31 EST , Rhythm Strip Rhythm Strip: A-fib Rate: 130 Physical Exam Const alert and no apparent distress General Appearance: cooperative HEENT normocephalic and head/scalp atraumatic HEENT Narrative: Dry mucous membranes Eyes PERRL, EOMs intact bilaterally and conjunctivae normal Neck supple General: trachea midline Chest inspection of chest normal Resp Auscultation: diminished lung sounds; Negative for rales, rhonchi or wheezes Cardio S1 normal heart sound, S2 normal heart sound, no murmurs, no rub and no gallops Rate: tachycardic Rhythm: abnormal rhythm irregularly irregular GI normal to inspection, nondistended, normoactive bowel sounds Extremity General Extremity: edema Skin no rashes or lesions noted Neuro no focal motor deficits Psych Mood & Affect: flat affect Charges/Coding Visit Charges Inpatient E&M: 27071 Subs Hosp L2
[2022-04-16] MEDS: Digoxin 250 MCG/ML Ampul 500 MCG IV (08:01)
[2022-04-16] MEDS: 0.9% Saline Lock 10 ML Syringe IV ×3 (08:05→16:44)
--- NOTE | 2022-04-16 08:06 | RAD_ITS ---
STUDY: X-RAY CHEST REASON FOR EXAM: Female, 66 years old. Fever and cough TECHNIQUE: Single AP portable view of the chest. COMPARISON: 04/12/2022 FINDINGS: Since the previous study, the patient has been extubated, and NG tube removed. Stable appearance of the right PICC line, EKG leads overlie the chest Persistent diffuse alveolar opacifications in both lung ocampo without significant change or improvement since the previous study Normal size heart. Normal mediastinum and jessica. Normal visualized pulmonary arteries. Normal visualized aortic arch and descending thoracic aorta. There are diffuse degenerative changes of the visualized thoracic spine. There is degenerative osteoarthritis of the bilateral shoulders. There is no demonstrated abnormality of the visualized soft tissue structures of the upper abdomen. RAD/Chest 1 View (Portable) IMPRESSION: Lung ocampo show no interval change since the previous study Since the previous study however, the patient has been extubated and NG tube removed Electronically Signed: Neftali Chavez MD at 8:58 EST ,
--- NOTE | 2022-04-16 08:07 | PN.HOSP_ITS ---
Subjective Subjective Patient was seen and examined today, she was given Lasix during the night for suspected CHF, I talked briefly with cardiology this morning, patient's heart rate remains in the 130s despite amiodarone. Patient is n.p.o. at this time until speech can reevaluate her, cardiology recommended a Cardizem drip and IV digoxin. I talked briefly with pulmonary medicine about her care, patient is currently on nasal cannula oxygen of 5 L, she knows she is in the hospital. Objective Data Objective Data Vital Signs: Vital Signs Temp Pulse Resp BP Pulse Ox O2 Del Method O2 Flow Rate 98.8 F 128 H 25 H 104/88 H 90 Nasal Cannula 5 04/16/22 07:00 04/16/22 08:01 04/16/22 07:00 04/16/22 07:00 04/16/22 07:00 04/16/22 07:56 04/16/22 07:56 FiO2 40 04/15/22 20:48 Oxygen Flow Rate (L/min) 5 Oxygen Delivery Method Nasal Cannula Weight: 79.379 kg Body Mass Index (BMI) 26.6 Intake & Output: Intake and Output for Last 24 Hours 04/14/22 04/15/22 04/16/22 23:59 23:59 23:59 Intake Total 2543.89 / 2543.89 700 / 700 Output Total 3200 / 3200 225 / 1025 1450 / 1450 Balance -656.11 / -656.11 475 / -325 -1450 / -1450 Lab / Micro Data Result Diagrams: 04/15/22 08:20 04/15/22 08:20 Labs: Laboratory Results - last 24 hr 04/15/22 08:20: WBC 31.5 H*, RBC 3.38 L, Hgb 10.8 L, Hct 34.3 L, MCV 101.5 H, MCH 32.0, MCHC 31.5 L, RDW Std Deviation 52.3 H, RDW Coeff of [place]ainey 16.8 H, Plt Count 193, MPV 12.9 H, Immature Gran % (Auto) 1.400 H, Neut % (Auto) 91.9 H, Lymph % (Auto) 3.4 L, [place] % (Auto) 3.1, Eos % (Auto) 0.0, Baso % (Auto) 0.2, Absolute Neuts (auto) 28.9 H, Absolute Lymphs (auto) 1.06, Nucleated RBC % 0.8, Differential Comment SCANNED, Diff Path Review Reviewed 04/15/22 08:20: Sodium 148 H, Potassium 3.1 L, Chloride 107, Carbon Dioxide 36.0 H, Anion Gap 5, BUN 25 H, Creatinine 0.54 L, Estim Creat Clear Calc 102.35, Est GFR (MDRD) Af Amer 145, Est GFR (MDRD) Non-Af 120, BUN/Creatinine Ratio 46.2 H, Glucose 56 L, Calcium 6.7 L 04/15/22 12:04: POC Glucose 88 04/16/22 00:36: POC Glucose 47 L 04/16/22 01:24: POC Glucose 115 H 04/16/22 06:10: POC Glucose 38 L* 04/16/22 06:46: POC Glucose 75 Micro: Microbiology 04/12/22 08:10 Blood Culture (Wb) - No Site/Description Given Blood Culture - Preliminary No growth in 48 hours. 04/13/22 23:58 Stool Enteric Bacteriology - Final 04/13/22 11:42 Mucosa - Nose Respiratory Panel (PCR) - Final 04/11/22 15:30 Stool C. difficile DNA Amplification - Final 04/06/22 14:45 Blood Culture (Wb) - Arm Right Blood Culture - Final No growth in 5 days. 04/06/22 13:41 Blood Culture (Wb) - Anticubital Left Blood Culture - Final No growth in 5 days. 04/06/22 20:35 Sputum, Tracheal Aspirate Gram Stain - Final 04/06/22 20:35 Sputum, Tracheal Aspirate Respiratory Culture - Final Meth. resistant Staph. aureus 04/06/22 13:50 Urine Catheter - Bravo Urine Culture - Final Escherichia coli 04/06/22 21:40 Urine Catheter - Bravo Legionella Antigen - Final 04/06/22 21:40 Urine Catheter - Bravo Streptococcus pneumoniae Antigen (M - Final 04/06/22 14:50 Nasal Secretion SARS-CoV-2 & FLU Antigen (Rapid) - Final ABG Data ABG results: ABG 04/15/22 20:25 Specimen Type ART Sample Site L Radial pH 7.43 Bicarbonate Actual 33.3 H Total CO2 35 Base Excess 9 H O2 Saturation 97 ABG pCO2 50.0 H ABG pO2 85 Adán Test Positive O2 Delivery Device Cannula Liter Flow 5.0 Rhythm Strip Rhythm Strip: A-fib Rate: 130 Physical Exam Narrative Patient responds to simple questions appropriately General Appearance: cooperative, well kempt and well developed Orientation / Consciousness:? somewhat somnolent, she does respond to verbal questioning HEENT normocephalic, head/scalp atraumatic and moist oral mucous membranes Eyes PERRL, EOMs intact bilaterally and conjunctivae normal Neck supple, no JVD, thyroid normal and no carotid bruits General: trachea midline Resp normal respiratory effort and no retractions Resp Narrative: Sounds are diminished bilaterally, inspiratory rales are noted over the right lung field at the base Auscultation: rales; Negative for rhonchi or wheezes Cardio Cardio Narrative: Heart rate and rhythm is irregular and tachycardic GI normal to inspection, nondistended, normoactive bowel sounds, soft to palpation, non-tender and non-distended Extremity no clubbing, cyanosis or edema Skin no rashes or lesions noted General Skin Exam: no breakdown Neuro oriented x3, CN's II-XII intact bilaterally, no focal motor deficits and no sensory deficits noted Sensorium / Orientation: Patient is somnolent with confusion Speech: speech normal Psych Patient has a flat affect, she responds appropriately to verbal questioning Assessment & Plan Assessment/Plan (1) Atrial fibrillation with rapid ventricular response: PLAN: Plan 1. Acute on chronic combined respiratory failure-patient is now currently stable on 5 L by nasal cannula, I have ordered a repeat chest x-ray on the patient today #2 MRSA pneumonia-patient remains on antibiotics per infectious diseases, patient's white blood cell count is 31,000 today, patient is currently on IV Solu-Medrol #3 acute cystitis with E. coli-patient is currently on Zosyn #4 acute exacerbation of COPD-patient is currently receiving aerosol treatments as well as IV Solu-Medrol #5 paroxysmal A. fib-cardiology is participating in her care, patient is currently on oral amiodarone, she remains tachycardic and IV Cardizem and digoxin was administered. #6 type 2 diabetes-blood sugars will be monitored, sliding scale insulin will be used #7 acute kidney injury-kidney function has improved #8 metabolic encephalopathy-patient's mentation is improved today, she is n.p.o. currently, speech therapy will see her again today Charges/Coding Visit Charges Inpatient E&M: 34340 Subs Hosp L2
[2022-04-16 08:46] LABS: Absolute Lymphocyte Count 0.54 X10^3/uL (0.83-4.51); Absolute Neutrophil Count 24.4 X10^3/uL (2.0-7.7); Basophil# 0.05 X10^3/uL; Basophil% 0.2 % (0-1); Hematocrit 30.8 % (37-47); Hemoglobin 9.6 g/dL (12.0-15.0); Lymphocyte # 0.54 X10^3/ul (0.83-4.51); Lymphocyte % 2.1 % (19-41); Mean Corp Hgb Conc 31.2 g/dL (32-36); Mean Corpuscular Volume 102.7 fL (81-99); Mean Platelet Vol. 12.7 fl (6.2-12.0); Monocyte# 0.73 X10^3/uL; Monocyte% 2.8 % (0-10); NRBC Flagged by Analyzer 0.3 % (0-5); Neutrophil # 24.39 X10^3/uL (2.7-7.7); Neutrophil % 93.6 % (47-70); POSITIVE DIFFERENTIAL YES; Platelet Count 172 K/mm3 (150-450); RBC Distribution Width CV 17.1 % (11.6-14.6); White Blood Count 26.1 K/mm3 (4.4-11.0)
[2022-04-16 08:53] LABS: Anion Gap 1 (5-15); BUN 21 mg/dL (7-18); BUN/Creat Ratio 35.8 RATIO (10-20); Calcium,Total 6.6 mg/dL (8.5-10.1); Chloride 107 mmol/L (98-107); Creatinine, Serum 0.59 mg/dL (0.55-1.02); EST Glomerular Filtration Rate 109 mL/min (>60); Est Glom Filt Rate - Afr Amer 132 mL/min (>60); Estimated Creatinine Clearance 93.68 ml/min; Glucose 81 mg/dL (74-106); Potassium 3.8 mmol/L (3.5-5.1); Sodium Level 146 mmol/L (136-145)
[2022-04-16 09:05] LABS: Differential Indicated SCAN CRITERIA MET
[2022-04-16 09:20] LABS: Differential Comment SCANNED; Hypochromasia 2+; Macrocytosis 3+
[2022-04-16] MEDS: Vancomycin IV 1,000 MG/200 ML BAG 200 MG IV ×2 (10:00→21:52)
--- NOTE | 2022-04-16 10:05 | CASEMGMT ---
Social Work This social media manager met with patient and patient spouse in room. Introduced self and social media manager role. Patient much more alert today and able to engage in conversation. Patient agreeable to this social media manager speaking with patient spouse. This social media manager broached topic of halfway placement. Patient and patient spouse, Enmaneul are agreeable to halfway placement for skilled care with goal for patient to return to the community after strengthening and rehabilitation. This social media manager provided patient with list of in-network nursing facilities that are local to patient geographical region. Patient and Enmanuel looking over list, preferred facility is [facility] ([facility]). This social media manager educating patient and Enmanuel on pre-cert process and that insurance will need to approve skilled care for patient to have skilled care covered, patient and Enmanuel voiced understanding. This social media manager updated discharge logistics and planning manager, Bonny. Bonny to make referral to [facility]. Proposed discharge date: TBD, not medically cleared. PLAN: [facility], skilled pending acceptance and pre-cert. Tra ROBLES, NUPUR-S
--- NOTE | 2022-04-16 10:23 | CASEMGMT ---
[employer]charge [employer] Exhaust Emissions Technician This insurance writer sent referral to CC via [employer]. Sergio FELIZ Services Coordinator
--- NOTE | 2022-04-16 11:09 | CASEMGMT ---
[employer]charge [employer] President RUDOLPH reached out patient has been accepted pending insurance review. NOREEN neil notified. Sergio FELIZ Estimating Engineer
--- NOTE | 2022-04-16 11:21 | PN.CARD_ITS ---
Subjective Subjective Denies any complaints. Appears mildly short of breath. Still running low-grade fever this morning. Remains in atrial fibrillation with rapid ventricular response. Objective Data Vital Signs: Vital Signs Temp Pulse Resp BP Pulse Ox O2 Del Method O2 Flow Rate 99.2 F H 132 H 26 H 110/77 90 Nasal Cannula 5 04/16/22 10:00 04/16/22 10:00 04/16/22 10:00 04/16/22 10:00 04/16/22 07:00 04/16/22 08:00 04/16/22 08:00 FiO2 40 04/15/22 20:48 Oxygen Flow Rate (L/min) 5 Oxygen Delivery Method Nasal Cannula Weight: 175 lb Body Mass Index (BMI) 26.6 Intake & Output: Intake and Output for Last 24 Hours 04/14/22 04/15/22 04/16/22 23:59 23:59 23:59 Intake Total 2543.89 / 2543.89 700 / 700 203.33 / 203.33 Output Total 3200 / 3200 225 / 1025 2350 / 2350 Balance -656.11 / -656.11 475 / -325 -2146.67 / -2146.67 Lab / Micro Data Result Diagrams: 04/16/22 08:27 04/16/22 08:27 Labs: Laboratory Results - last 24 hr 04/15/22 08:20: Diff Path Review Reviewed 04/15/22 12:04: POC Glucose 88 04/16/22 00:36: POC Glucose 47 L 04/16/22 01:24: POC Glucose 115 H 04/16/22 06:10: POC Glucose 38 L* 04/16/22 06:46: POC Glucose 75 04/16/22 08:27: WBC 26.1 H, RBC 3.00 L, Hgb 9.6 L, Hct 30.8 L, MCV 102.7 H, MCH 32.0, MCHC 31.2 L, RDW Std Deviation 51.0 H, RDW Coeff of Lainey 17.1 H, Plt Count 172, MPV 12.7 H, Immature Gran % (Auto) 1.300 H, Neut % (Auto) 93.6 H, Lymph % (Auto) 2.1 L, Lasalle % (Auto) 2.8, Eos % (Auto) 0.0, Baso % (Auto) 0.2, Absolute Neuts (auto) 24.4 H, Absolute Lymphs (auto) 0.54 L, Nucleated RBC % 0.3, Differential Comment SCANNED, Hypochromasia 2+, Macrocytosis 3+ 04/16/22 08:27: Sodium 146 H, Potassium 3.8, Chloride 107, Carbon Dioxide 38.0 H , Anion Gap 1 L, BUN 21 H, Creatinine 0.59, Estim Creat Clear Calc 93.68, Est GFR (MDRD) Af Amer 132, Est GFR (MDRD) Non-Af 109, BUN/Creatinine Ratio 35.8 H, Glucose 81, Calcium 6.6 L Micro: Microbiology 04/12/22 08:10 Blood Culture (Wb) - No Site/Description Given Blood Culture - Preliminary No growth in 48 hours. ABG Data ABG results: ABG 04/15/22 20:25 Specimen Type ART Sample Site L Radial pH 7.43 Bicarbonate Actual 33.3 H Total CO2 35 Base Excess 9 H O2 Saturation 97 ABG pCO2 50.0 H ABG pO2 85 Adán Test Positive O2 Delivery Device Cannula Liter Flow 5.0 Rhythm Strip Rhythm Strip: A-fib Rate: 130 Cardiology Labs/Tests 04/15/22 20:25: pH 7.43, Bicarbonate Actual 33.3 H, Base Excess 9 H, O2 Saturation 97, ABG pCO2 50.0 H, ABG pO2 85, Adán Test Positive 04/16/22 08:27: WBC 26.1 H, RBC 3.00 L, Hgb 9.6 L, Hct 30.8 L, MCV 102.7 H, MCH 32.0, MCHC 31.2 L, Plt Count 172, MPV 12.7 H, Immature Gran % (Auto) 1.300 H, Neut % (Auto) 93.6 H, Lymph % (Auto) 2.1 L, Lasalle % (Auto) 2.8, Eos % (Auto) 0.0, Baso % (Auto) 0.2, Absolute Neuts (auto) 24.4 H, Nucleated RBC % 0.3 04/16/22 08:27: Sodium 146 H, Potassium 3.8, Chloride 107, Carbon Dioxide 38.0 H , Anion Gap 1 L, BUN 21 H, Creatinine 0.59, Est GFR (MDRD) Af Amer 132, Est GFR (MDRD) Non-Af 109, BUN/Creatinine Ratio 35.8 H, Glucose 81, Calcium 6.6 L Rhythm: EKG: ECHO: Stress Test: Cardiac Cath: PCI: CT Surgery: Holter monitor: EPS: PPM: CXR: Chest CT Scan: Radiography Diagnostic Testing: Radiology Impression Chest X-Ray 04/16/22 08:06 IMPRESSION: Lung ocampo show no interval change since the previous study Since the previous study however, the patient has been extubated and NG tube removed Electronically Signed: Neftali Chavez MD at 8:58 EST , Physical Exam Narrative Appears mildly short of breath. Temperature 99 ?F Assessment & Plan Assessment/Plan (1) Atrial fibrillation with rapid ventricular response: PLAN: Atrial fibrillation with rapid ventricular response. Heart rate being difficult to control secondary to underlying medical problems. Started on diltiazem infusion. Titrate as tolerated and needed. Continue metoprolol. Loaded with digoxin. Check 2D echocardiogram with Doppler. (2) Acute and chronic respiratory failure, unspecified whether with hypoxia or hypercapnia: PLAN: Extubated. (3) Pneumonia: PLAN: MRSA pneumonia. As per critical care. (4) Bronchiectasis: QUALIFIERS: Bronchiectasis type: uncomplicated Qualified Code(s): J47.9 - Bronchiectasis, uncomplicated PLAN: As per pulmonary critical care.
--- NOTE | 2022-04-16 11:24 | ECHOCS_ITS ---
Reason For Study: afib Procedure This was a 2D Doppler, Color Flow transthoracic echocardiogram. The study was technically difficult. Limited views were obtained. Exam performed portable in ICU/CCU. Left Ventricle Normal size and thickness. The left ventricular ejection fraction is 55 %. Right Ventricle Normal size and thickness. Atria Normal left atrium. The right atrium is not well visualized. Mitral Valve The mitral valve is structurally normal. No prolapse or stenosis seen. Tricuspid Valve The tricuspid valve is not well visualized. Aortic Valve The aortic valve is not well visualized. Pulmonic Valve The pulmonic valve is not well visualized. Pericardium/Pleural Epicardial fat. Medication Diluted definity 2ml given slow IV push to enhance endocardial definition. MMode/2D Measurements & Calculations LAV(MOD-sp4): 16.7 ml LA A4 area: 10.4 cm2 Doppler Measurements & Calculations MV E max rupert: 72.8 cm/sec Ao V2 max: 107.7 cm/sec LV V1 max: 66.7 cm/sec Ao max P.7 mmHg LV V1 max P.8 mmHg Ao V2 mean: 78.1 cm/sec LV V1 mean P.0 mmHg Ao mean P.7 mmHg LV V1 mean: 48.8 cm/sec Ao V2 VTI: 14.9 cm LV V1 VTI: 9.3 cm AV (velocity ratio): 0.63 TR max rupert: 272.8 cm/sec TR max P.8 mmHg ECHO/Echo Complete W/ Contrast Interpretation Summary The study was technically difficult. The left ventricular ejection fraction is 55 %. Ordering Physician: Kiya Timmons Referring Physician: chema de la rosa Performed By: Corie Bowman RCS
[2022-04-16 11:41] LABS: Bedside Glucose 84 mg/dL (74-106)
--- NOTE | 2022-04-16 13:00 | NURSING ---
To radiology for cookie swallow at this time
--- NOTE | 2022-04-16 13:18 | PCM.PN.ID ---
Physical Exam Narrative Feeling ok, some loose stool, no fever Const alert and no apparent distress Resp normal air movement and clear to auscultation bilaterally Cardio Rate: tachycardic GI soft to palpation, non-tender and non-distended Extremity General Extremity: Negative for edema Skin no rashes or lesions noted ID ID: Route of nutrition/ use of supplements: [] Nutritional Intake: [] IV Site: [] Bravo Catheter: [] Assessment & Plan Assessment/Plan (1) Pneumonia: PLAN: sepsis due to MRSA pneumonia with resp failure. Ucx with ecoli but no pyuria on UA. UAgs neg. Covid and flu Ag neg on admit. Head CT shows bilat mastoiditis. Cont vanc. Cdiff neg here. Remains extubated, afebrile. Plan on 14 days total of abx, stop date 04/20/22. Can change to po doxy 100mg bid at discharge. Will follow (2) Atrial fibrillation with rapid ventricular response: (3) Acute and chronic respiratory failure, unspecified whether with hypoxia or hypercapnia: (4) Metabolic encephalopathy: (5) COPD (chronic obstructive pulmonary disease): QUALIFIERS: COPD type: unspecified COPD Qualified Code(s): J44.9 - Chronic obstructive pulmonary disease, unspecified (6) Diarrhea:
--- NOTE | 2022-04-16 15:25 | SP.MBSS_ITS ---
Modified Barium Swallow - Patient Information Study Date: 04/16/22 Study Time: 13:00 Direct Billable Minutes: 90 Total Minutes procedure & reportin Diagnosis: Pneumonia (J18.9) COPD (J44.9) Referring Physician: Navjot Richards Reason for Referral: Objectively assess swallow function, assess risk for aspiration, and determine recommendations for least restrictive diet textures and compensatory strategies to improve safety of swallow. Medical History: Viviana Santana is a 66-year-old female with PMH including asthma, A fib, former smoker, GERD, HTN, lack of appetite, PNA (SEE EMR for full PMH). She presented to [facility] ED 04/16/2022 with change in mental status. brought pt to the ED as she became progressively listless and with worsening responsiveness over the past few days prior to admission. Admitting chest x-ray showed right lower lobe pneumonia, patient received levofloxacin. She was admitted for management of PNA, acute respiratory failure, and KAY. Pt was intubated during hospitalization and extubated 04/14/2022. She was referred for ST consult 04/14/2022 to assess risk for aspiration and concern for swallow dysfunction prior to diet advancement. REFRIGERATION SERVICE INSPECTOR followed daily and recommended the patient continue NPO with critical meds crushed in applesauce and ice chips sparingly. REFRIGERATION SERVICE INSPECTOR referred pt for MBSS 04/16/2022 to objectively assess aspiration risk and to determine if the patient is appropriate for diet advancement. Current Diet Ordered: NPO with ice chips sparingly Dentition: WNL Mental Status: Impaired - Altered mental status Respiratory Status: Oxygenating on 4L/M nasal cannula - 5L/M - Penetration-Aspiration Scale Penetration-Aspiration Scale: OBJECTIVE ASSESSMENT OF SWALLOW FUNCTION (QUANTITATIVE ? PER TRIAL): PENETRATION / ASPIRATION SCALE (LANDRY): 1 = does not enter airway 2 = enters airway/above vocal folds/ejected 3 = enters airway/above vocal folds/not ejected 4 = enters airway/contacts vocal folds/ejected 5 = enters airway/contacts vocal folds/not ejected 6 = enters airway/below vocal folds/ejected 7 = enters airway/below vocal folds/not ejected despite effort 8 = enters airway/below vocal folds/no effort VIDEOFLOROSCOPIC SCALE SCORE (LANDRY): Grade I = aspiration of material that has penetrated into the laryngeal vestibule, intact cough reflex Grade II = aspiration < 10 % of the bolus, intact cough reflex Grade III = aspiration of < 10 % of the bolus, reduced cough reflex or aspiration of > 10 % of the bolus, intact cough reflex Grade IV = aspiration of > 10 % of the bolus, reduced cough reflex - Penetration-Aspiration Scale Score Thin Liquid via teaspoon Result: 7= enters airways/below vocal folds/not ejected despite effort [place] Thick Liquid via 1/2 teaspoon Result: 1= does not enter airway [place] Thick Liquid via teaspoon Result: 8= enters airway/below vocal folds/no effort Honey Thick Liquid via 1/2 teaspoon Result: 1= does not enter airway [place] Thick Liquid via teaspoon Result: 1= does not enter airway Pudding via teaspoon Result: 1= does not enter airway [place] Thick Liquid via teaspoon Trial 2 Result: 1= does not enter airway - Oral Phase Labial Seal: Escape beyond interlabial space; no extension beyond cathy border Tongue Control During Bolus Hold: Posterior escape of greater than half of bolus Bolus Transport/Lingual Motion: Repetitive/disorganized tongue motion Oral Residue: Residue collection on oral structures - Pharyngeal Phase Initiation of Pharyngeal Swallow: Bolus head in pyriforms Soft Palate Elevation: No bolus between soft palate and pharyngeal wall Laryngeal Elevation: Partial superior movement thyroid cart/partial apprx aryt- epig petiole Epiglottic Movement: Partial inversion Laryngeal Vestibule Closure at Height of Swallow: Incomplete; narrow column of air/contrast in laryngeal vestibule Pharyngeal Stripping Wave: Present - complete Pharyngoesophageal Segment Opening: Parital distension and partial duration; parital obstruction of flow - trace retention in UES and pyriforms Tongue Base Retraction: Narrow column of contrast between tongue base & post. pharyngeal wall Pharyngeal Residue: Collection of residue within or on pharyngeal structures - Diagnosis/Impression Diagnosis: Severe oropharyngeal dysphagia (R13.12) Impression: The oral phase is primarily marked by... -Decreased bolus control with >1/2 of the bolus spilling posteriorly to the pyriforms prior to swallow onset observed with thin liquids especially. -Slowed and repetitive tongue motion for A-P transport -Did not complete cookie trial due to concerns for choking with decreased bolus control and weak cough reflex. The pharyngeal phase is primarily marked by... -Decreased airway closure during the swallow due to decreased anterior hyoid excursion, inconsistent epiglottic inversion, and decreased laryngeal elevation. -Mildly decreased tongue base retraction, UES opening/duration, and pharyngeal stripping wave with resulting mild pharyngeal residues after the swallow. -Aspiration of thin liquids by tsp. SILENT aspiration of nectar thick liquids by tsp. Use of decreased bolus size (1/2 tsp) was effective in decreasing aspiration in nectar thick liquid trial. Did not trial any solid or additional liquid consistencies and strategies due to patient fatigue as the study continued, weak cough reflex, and extent of aspiration observed with thin and nectar thick liquids by tsp. - Recommendations Diet: Puree Textures, Honey-thick Liquids Compensatory Strategies: Small Bites, Small Sips, Liquid by Teaspoon Only, Slow Rate, Feed only when alert, Sitting upright, Remain sitting upright for 30 minutes after PO intake Supervision: Total Feed Recommend Repeat Modified Barium Swallow: Yes - Repeat MBSS in 1-2 weeks to re- assess swallow function and determine appropriateness for diet advancement if deemed clinically appropriate by REFRIGERATION SERVICE INSPECTOR. Need for Skilled Speech Therapy Services: Yes Comment: Will recommend the patient for intensive dysphagia therapy as patient is able to tolerate to address deficits in oropharyngeal swallow function. Will recommend the patient for oropharyngeal strengthening to improve lingual strength/coordination, laryngeal elevation, hyoid excursion, and tongue base retraction (lingual resistance, CTAR, Angelina, effortful breath hold and swallow). The patient would benefit from thorough education regarding diet recommendations and recommended compensatory strategies. WOULD NOT recommend diet advancement without repeat MBSS. Education Completed: 1. Described result of evaluation., 7. Pt requires further education on strategies & risks. - Status Active ST Patient: Active - Contact Information [facility] Speech Therapy:: Iqra Calloway M.A. [facility]REFRIGERATION SERVICE INSPECTOR Speech-Language Pathologist [facility] [address] [place] [address] [email or web address] [phone] 04/16/22 15:35
--- NOTE | 2022-04-16 16:52 | CASEMGMT ---
Social Work Telephone call to patient spouse, Enmanuel. No answer. Voicemail left informing Enmanuel of patient acceptance to [facility]. Voicemail was identified as belonging to Enmanuel Santana. This psychiatric social worker supervisor also communicated that pre-cert will need to be obtained yet. Tra ROBLES, NUPUR-S
[2022-04-16 16:55] LABS: Bedside Glucose 44 mg/dL (74-106)
[2022-04-16] MEDS: Dextrose 10%-Water 250 ML 40 ML IV ×2 (16:59→23:14)
[2022-04-16] MEDS: Digoxin 250 MCG/ML Ampul IV (17:00)
[2022-04-16 17:30] LABS: Bedside Glucose 247 mg/dL (74-106)
[2022-04-16 17:35] LABS: AST(SGOT) 17 U/L (15-37); Alanine Aminotransfer ALT/SGPT 16 U/L (13-56); Albumin, Serum 1.9 g/dL (3.2-5.0); Alkaline Phosphatase 66 U/L (45-117); Globulin 2.8 g/dL (2.2-4.2); Protein, Total 4.7 g/dL (6.4-8.2)
[2022-04-16] MEDS: Ondansetron 4 MG/2 ML Vial IV (18:34)
[2022-04-16 21:29] LABS: Vancomycin, Trough Level 23.6 ug/mL (5.0-15.0)
[2022-04-16 22:15] LABS: Bedside Glucose 121 mg/dL (74-106)
--- NOTE | 2022-04-16 23:23 | PCM.RX.CS ---
Consult Pharmacy has been consulted to manage selected antiobiotic: Vancomycin Type of Consult: Follow-up Labs: Sodium 146 mmol/L (136-145) H 04/16/22 08:27 Potassium 3.8 mmol/L (3.5-5.1) 04/16/22 08:27 Chloride 107 mmol/L (98-107) 04/16/22 08:27 Carbon Dioxide 38.0 mmol/L (21.0-32.0) H 04/16/22 08:27 Anion Gap 1 (5-15) L 04/16/22 08:27 BUN 21 mg/dL (7-18) H 04/16/22 08:27 Creatinine 0.59 mg/dL (0.55-1.02) 04/16/22 08:27 Est GFR (MDRD) Af Amer 132 mL/min (>60) 04/16/22 08:27 Est GFR (MDRD) Non-Af 109 mL/min (>60) 04/16/22 08:27 BUN/Creatinine Ratio 35.8 RATIO (10-20) H 04/16/22 08:27 Glucose 81 mg/dL (74-106) 04/16/22 08:27 Vancomycin Trough 23.6 ug/mL (5.0-15.0) H 04/16/22 20:50 Random Vancomycin 14.5 ug/mL (0.0-15.0) 04/09/22 06:05 Microbiology: Microbiology 04/12/22 08:10 Blood Culture (Wb) - No Site/Description Given Blood Culture - Preliminary No growth in 48 hours. 04/13/22 23:58 Stool Enteric Bacteriology - Final 04/13/22 11:42 Mucosa - Nose Respiratory Panel (PCR) - Final 04/11/22 15:30 Stool C. difficile DNA Amplification - Final 04/06/22 14:45 Blood Culture (Wb) - Arm Right Blood Culture - Final No growth in 5 days. 04/06/22 13:41 Blood Culture (Wb) - Anticubital Left Blood Culture - Final No growth in 5 days. 04/06/22 20:35 Sputum, Tracheal Aspirate Gram Stain - Final 04/06/22 20:35 Sputum, Tracheal Aspirate Respiratory Culture - Final Meth. resistant Staph. aureus 04/06/22 13:50 Urine Catheter - Bravo Urine Culture - Final Escherichia coli 04/06/22 21:40 Urine Catheter - Bravo Legionella Antigen - Final 04/06/22 21:40 Urine Catheter - Bravo Streptococcus pneumoniae Antigen (M - Final 04/06/22 14:50 Nasal Secretion SARS-CoV-2 & FLU Antigen (Rapid) - Final Goal Trough: 15-20 mcg/mL Pharmacy Plan for Drug Dosing: Pharmacy Service will continue to monitor and adjust dosing as required. TROUGH 23.6 @ 11 HRS. HOLD NEXT DOSE, DRAW RANDOM LEVEL IN 18 HOURS AND REDOSE ACCORDINGLY, Follow-Up Labs: Trough Vancomycin Labs to be done on [date and time ordered]: 04/17 @ 1500 RANDOM
[2022-04-17] VITALS (35 sets, daily range): BP systolic 93–122; BP diastolic 43–75; PULSE 60–114; RESP 18–27; TEMP 36.1–37; O2SAT 90–100
[2022-04-17] MEDS: Dextrose 10%-Water 250 ML 40 ML IV ×4 (05:29→21:17)
[2022-04-17 05:55] LABS: Absolute Lymphocyte Count 0.31 X10^3/uL (0.83-4.51); Absolute Neutrophil Count 20.3 X10^3/uL (2.0-7.7); Basophil# 0.03 X10^3/uL; Basophil% 0.1 % (0-1); Hematocrit 29.4 % (37-47); Hemoglobin 8.5 g/dL (12.0-15.0); Lymphocyte # 0.31 X10^3/ul (0.83-4.51); Lymphocyte % 1.4 % (19-41); Mean Corp Hgb Conc 28.9 g/dL (32-36); Mean Corpuscular Hgb 30.8 pg (27.0-32.0); Mean Corpuscular Volume 106.5 fL (81-99); Mean Platelet Vol. 12.7 fl (6.2-12.0); Monocyte# 0.52 X10^3/uL; Monocyte% 2.4 % (0-10); NRBC Flagged by Analyzer 0.1 % (0-5); Neutrophil # 20.27 X10^3/uL (2.7-7.7); Neutrophil % 94.8 % (47-70); POSITIVE DIFFERENTIAL YES; Platelet Count 165 K/mm3 (150-450); RBC Distribution Width CV 17.4 % (11.6-14.6); RBC Distribution Width SD 53.1 fl (35.1-43.9); Red Blood Count 2.76 M/mm3 (4.2-5.4); White Blood Count 21.4 K/mm3 (4.4-11.0)
[2022-04-17 05:58] LABS: Differential Indicated SCAN CRITERIA MET
[2022-04-17 06:06] LABS: Bedside Glucose 201 mg/dL (74-106)
[2022-04-17 06:12] LABS: Anion Gap 1 (5-15); BUN 19 mg/dL (7-18); Calcium,Total 6.3 mg/dL (8.5-10.1); Chloride 103 mmol/L (98-107); Creatinine, Serum 0.56 mg/dL (0.55-1.02); EST Glomerular Filtration Rate 116 mL/min (>60); Est Glom Filt Rate - Afr Amer 140 mL/min (>60); Estimated Creatinine Clearance 98.69 ml/min; Glucose 196 mg/dL (74-106); Sodium Level 139 mmol/L (136-145)
[2022-04-17 06:21] LABS: Differential Comment SCANNED
--- NOTE | 2022-04-17 06:33 | PN.CC_ITS ---
Assessment & Plan Assessment/Plan (1) Acute and chronic respiratory failure, unspecified whether with hypoxia or hypercapnia: (2) Chronic atrial fibrillation with rapid ventricular response: (3) Bronchiectasis: QUALIFIERS: Bronchiectasis type: uncomplicated Qualified Code(s): J47.9 - Bronchiectasis, uncomplicated (4) Pneumonia: PLAN: Plan RECOMMENDATIONS: 1. Continue to wean supplemental oxygen to maintain saturations at or above 90%. 2. Antimicrobials per ID recommendations. 3. Defer management of atrial fibrillation to cardiology. 4. Encourage incentive spirometer use and mobilize patient as tolerated. 5. Continue as needed bronchodilators. IV steroids can be discontinued from my perspective. 6. Continue Xarelto per home regimen. 7. Will sign off from a critical care perspective. Please call with any additional questions. IMPRESSIONS: 1. Acute on chronic combined respiratory failure secondary to bilateral pneumonia Improved. The patient has been successfully weaned from invasive mechanical ventilatory support and is doing well from a respiratory perspective on supplemental oxygen via nasal cannula. Plan to continue antimicrobials per ID recommendations. Supplemental oxygen can be weaned to maintain saturations at or above 90%. Continue to encourage incentive spirometer use and mobilize patient as tolerated. Diet can be advanced per speech therapy recommendations. 2. Encephalopathy Improved. Initially felt to be metabolic in etiology. CT head was unremarkable. 3. Acute kidney injury secondary to sepsis d/t pneumonia Resolved. Kidney function has improved with stabilization of hemodynamics. Continue to monitor urine output. No current indication for renal replacement therapy. 4. A. fib with RVR Continue systemic anticoagulation per baseline. Cardiology is following to assist with medical management of atrial fibrillation. 5. Anemia/hypertension/debility/bronchiectasis/rheumatoid lung disease Complicates care, management, recovery and prognosis. No indication for transfusions at this time. This note was generated with [employer] dictation software. It may contain incorrect words, spelling, and punctuation that were not noted in checking the note before signing. Subjective Subjective The patient was seen and examined at the bedside this morning. Events from the last 24 hours have been reviewed. The patient is currently afebrile, hemodynamically stable and maintaining appropriate oxygen saturations on 3 L/min via nasal cannula. Although the patient remains in atrial fibrillation, her hea rt rate is under better control this morning. She is documented to be overall net +7.4 L for the hospitalization. Objective Data Objective Data The patient's most recent lab work, culture data and imaging studies have all b een personally reviewed. Sputum culture dated April 06 was positive for MRSA. Urine culture dated April 06 was positive for E. coli. Repeat blood cultures have not demonstrated any growth to date. Vital Signs: Vital Signs Temp Pulse Resp BP Pulse Ox O2 Del Method O2 Flow Rate 98.5 F 100 23 H 102/75 92 Nasal Cannula 3 04/17/22 06:00 04/17/22 06:00 04/17/22 06:00 04/17/22 06:00 04/17/22 06:00 04/17/22 06:00 04/17/22 06:00 FiO2 40 04/15/22 20:48 Oxygen Flow Rate (L/min) 3 Oxygen Delivery Method Nasal Cannula Weight: 173 lb 14.4 oz Body Mass Index (BMI) 26.6 Intake & Output: Intake and Output for Last 24 Hours 04/15/22 04/16/22 04/17/22 23:59 23:59 23:59 Intake Total 700 / 700 833.33 / 848.33 338.5 / 338.5 Output Total 225 / 1025 2450 / 2850 800 / 800 Balance 475 / -325 -1616.67 / -2001.67 -461.5 / -461.5 Lab / Micro Data Attestation: I reviewed the patient's lab results. Result Diagrams: 04/17/22 05:47 04/17/22 05:47 Labs: Laboratory Results - last 24 hr 04/16/22 06:46: POC Glucose 75 04/16/22 08:27: WBC 26.1 H, RBC 3.00 L, Hgb 9.6 L, Hct 30.8 L, MCV 102.7 H, MCH 32.0, MCHC 31.2 L, RDW Std Deviation 51.0 H, RDW Coeff of Lainey 17.1 H, Plt Count 172, MPV 12.7 H, Immature Gran % (Auto) 1.300 H, Neut % (Auto) 93.6 H, Lymph % (Auto) 2.1 L, [place] % (Auto) 2.8, Eos % (Auto) 0.0, Baso % (Auto) 0.2, Absolute Neuts (auto) 24.4 H, Absolute Lymphs (auto) 0.54 L, Nucleated RBC % 0.3, Differential Comment SCANNED, Hypochromasia 2+, Macrocytosis 3+ 04/16/22 08:27: Sodium 146 H, Potassium 3.8, Chloride 107, Carbon Dioxide 38.0 H , Anion Gap 1 L, BUN 21 H, Creatinine 0.59, Estim Creat Clear Calc 93.68, Est GFR (MDRD) Af Amer 132, Est GFR (MDRD) Non-Af 109, BUN/Creatinine Ratio 35.8 H, Glucose 81, Calcium 6.6 L 04/16/22 11:17: POC Glucose 84 04/16/22 16:36: POC Glucose 44 L* 04/16/22 17:05: Total Bilirubin 0.50, Direct Bilirubin 0.30, AST 17, ALT 16, Alkaline Phosphatase 66, Total Protein 4.7 L, Albumin 1.9 L, Globulin 2.8 04/16/22 17:06: POC Glucose 247 H 04/16/22 20:50: Vancomycin Trough 23.6 H 04/16/22 21:50: POC Glucose 121 H 04/17/22 05:46: POC Glucose 201 H 04/17/22 05:47: WBC 21.4 H, RBC 2.76 L, Hgb 8.5 L, Hct 29.4 L, MCV 106.5 H, MCH 30.8, MCHC 28.9 L D, RDW Std Deviation 53.1 H, RDW Coeff of Lainey 17.4 H, Plt Co unt 165, MPV 12.7 H, Immature Gran % (Auto) 1.300 H, Neut % (Auto) 94.8 H, Lymph % (Auto) 1.4 L, [place] % (Auto) 2.4, Eos % (Auto) 0.0, Baso % (Auto) 0.1, Absolute Neuts (auto) 20.3 H, Absolute Lymphs (auto) 0.31 L, Nucleated RBC % 0.1, Differential Comment SCANNED 04/17/22 05:47: Sodium 139, Potassium 4.0, Chloride 103, Carbon Dioxide 35.0 H, Anion Gap 1 L, BUN 19 H, Creatinine 0.56, Estim Creat Clear Calc 98.69, Est GFR (MDRD) Af Amer 140, Est GFR (MDRD) Non-Af 116, BUN/Creatinine Ratio 34.0 H, Glucose 196 H, Calcium 6.3 L* Micro: Microbiology 04/12/22 08:10 Blood Culture (Wb) - No Site/Description Given Blood Culture - Preliminary No growth in 48 hours. 04/13/22 23:58 Stool Enteric Bacteriology - Final 04/13/22 11:42 Mucosa - Nose Respiratory Panel (PCR) - Final 04/11/22 15:30 Stool C. difficile DNA Amplification - Final 04/06/22 14:45 Blood Culture (Wb) - Arm Right Blood Culture - Final No growth in 5 days. 04/06/22 13:41 Blood Culture (Wb) - Anticubital Left Blood Culture - Final No growth in 5 days. 04/06/22 20:35 Sputum, Tracheal Aspirate Gram Stain - Final 04/06/22 20:35 Sputum, Tracheal Aspirate Respiratory Culture - Final Meth. resistant Staph. aureus 04/06/22 13:50 Urine Catheter - Bravo Urine Culture - Final Escherichia coli 04/06/22 21:40 Urine Catheter - Bravo Legionella Antigen - Final 04/06/22 21:40 Urine Catheter - Bravo Streptococcus pneumoniae Antigen (M - Final 04/06/22 14:50 Nasal Secretion SARS-CoV-2 & FLU Antigen (Rapid) - Final ABG Data ABG results: ABG 04/15/22 20:25 Specimen Type ART Sample Site L Radial pH 7.43 Bicarbonate Actual 33.3 H Total CO2 35 Base Excess 9 H O2 Saturation 97 ABG pCO2 50.0 H ABG pO2 85 Adán Test Positive O2 Delivery Device Cannula Liter Flow 5.0 Radiography Diagnostic Testing: Radiology Impression Chest X-Ray 04/16/22 08:06 IMPRESSION: Lung ocampo show no interval change since the previous study Since the previous study however, the patient has been extubated and NG tube removed Electronically Signed: Neftali Chavez MD at 8:58 EST , Echocardiogram 04/16/22 11:24 Interpretation Summary The study was technically difficult. The left ventricular ejection fraction is 55 %. Ordering Physician: Kiya Timmons Referring Physician: chema de la rosa Performed By: Corie Bowman RCS Rhythm Strip Rhythm Strip: A-fib Rate: 130 Physical Exam Const alert and no apparent distress General Appearance: cooperative HEENT normocephalic and head/scalp atraumatic HEENT Narrative: Dry mucous membranes Eyes PERRL, EOMs intact bilaterally and conjunctivae normal Neck supple General: trachea midline Chest inspection of chest normal Resp Resp Narrative: Scant rhonchi Auscultation: diminished lung sounds Cardio S1 normal heart sound, S2 normal heart sound, no murmurs, no rub and no gallops Rhythm: abnormal rhythm irregularly irregular GI normal to inspection, nondistended, normoactive bowel sounds Extremity General Extremity: edema Skin no rashes or lesions noted Neuro no focal motor deficits Psych Mood & Affect: flat affect Charges/Coding Visit Charges Inpatient E&M: 01952 Subs Hosp L2
--- NOTE | 2022-04-17 10:47 | CASEMGMT ---
Social Work SW requested precert for SWCC be started at this time. Pt cannot discharge until precert is obtained. Plan: [facility], pending precert KARTHIKEYAN Smith
[2022-04-17] MEDS: Menthol/Lanolin/Calamine/Znox 113 GM Tube 1 APPLIC TOPICAL ×4 (11:20→23:01)
[2022-04-17] MEDS: Metoprolol Tartrate 100 MG Tablet 150 MG GT (11:21)
[2022-04-17] MEDS: Rivaroxaban 20 MG Tablet PO (11:21)
[2022-04-17] MEDS: Amiodarone 200 MG Tablet PO (11:21)
--- NOTE | 2022-04-17 13:48 | PN.CARD_ITS ---
Subjective Subjective Sitting up in chair. Denies any complaints. Objective Data Vital Signs: Vital Signs Temp Pulse Resp BP Pulse Ox O2 Del Method O2 Flow Rate 98.1 F 72 23 H 104/60 95 Nasal Cannula 2 04/17/22 11:24 04/17/22 11:51 04/17/22 11:24 04/17/22 11:24 04/17/22 11:24 04/17/22 11:24 04/17/22 11:24 FiO2 40 04/15/22 20:48 Oxygen Flow Rate (L/min) 2 Oxygen Delivery Method Nasal Cannula Weight: 173 lb 14.41 oz Body Mass Index (BMI) 26.6 Intake & Output: Intake and Output for Last 24 Hours 04/15/22 04/16/22 04/17/22 23:59 23:59 23:59 Intake Total 700 / 700 833.33 / 848.33 764.17 / 764.17 Output Total 225 / 1025 2450 / 2850 800 / 800 Balance 475 / -325 -1616.67 / -2001.67 -35.83 / -35.83 Lab / Micro Data Result Diagrams: 04/17/22 05:47 04/17/22 05:47 Labs: Laboratory Results - last 24 hr 04/16/22 16:36: POC Glucose 44 L* 04/16/22 17:05: Total Bilirubin 0.50, Direct Bilirubin 0.30, AST 17, ALT 16, Alkaline Phosphatase 66, Total Protein 4.7 L, Albumin 1.9 L, Globulin 2.8 04/16/22 17:06: POC Glucose 247 H 04/16/22 20:50: Vancomycin Trough 23.6 H 04/16/22 21:50: POC Glucose 121 H 04/17/22 05:46: POC Glucose 201 H 04/17/22 05:47: WBC 21.4 H, RBC 2.76 L, Hgb 8.5 L, Hct 29.4 L, MCV 106.5 H, MCH 30.8, MCHC 28.9 L D, RDW Std Deviation 53.1 H, RDW Coeff of Lainey 17.4 H, Plt Count 165, MPV 12.7 H, Immature Gran % (Auto) 1.300 H, Neut % (Auto) 94.8 H, Lymph % (Auto) 1.4 L, [place] % (Auto) 2.4, Eos % (Auto) 0.0, Baso % (Auto) 0.1, Absolute Neuts (auto) 20.3 H, Absolute Lymphs (auto) 0.31 L, Nucleated RBC % 0.1, Differential Comment SCANNED 04/17/22 05:47: Sodium 139, Potassium 4.0, Chloride 103, Carbon Dioxide 35.0 H, Anion Gap 1 L, BUN 19 H, Creatinine 0.56, Estim Creat Clear Calc 98.69, Est GFR (MDRD) Af Amer 140, Est GFR (MDRD) Non-Af 116, BUN/Creatinine Ratio 34.0 H, Glucose 196 H, Calcium 6.3 L* Micro: Microbiology 04/12/22 08:10 Blood Culture (Wb) - No Site/Description Given Blood Culture - Final No growth in 5 days. Rhythm Strip Rhythm Strip: A-fib Rate: 130 Cardiology Labs/Tests 04/16/22 17:05: Total Bilirubin 0.50, Direct Bilirubin 0.30 04/17/22 05:47: WBC 21.4 H, RBC 2.76 L, Hgb 8.5 L, Hct 29.4 L, MCV 106.5 H, MCH 30.8, MCHC 28.9 L D, Plt Count 165, MPV 12.7 H, Immature Gran % (Auto) 1.300 H, Neut % (Auto) 94.8 H, Lymph % (Auto) 1.4 L, [place] % (Auto) 2.4, Eos % (Auto) 0.0, Baso % (Auto) 0.1, Absolute Neuts (auto) 20.3 H, Nucleated RBC % 0.1 04/17/22 05:47: Sodium 139, Potassium 4.0, Chloride 103, Carbon Dioxide 35.0 H, Anion Gap 1 L, BUN 19 H, Creatinine 0.56, Est GFR (MDRD) Af Amer 140, Est GFR (MDRD) Non-Af 116, BUN/Creatinine Ratio 34.0 H, Glucose 196 H, Calcium 6.3 L* Rhythm: EKG: ECHO: Stress Test: Cardiac Cath: PCI: CT Surgery: Holter monitor: EPS: PPM: CXR: Chest CT Scan: Physical Exam Narrative Comfortable. No distress. Heart sounds 1 and 2 noted. Irregularly irregular. Chest reveals decreased air entry bilateral bases. Assessment & Plan Assessment/Plan (1) Atrial fibrillation with rapid ventricular response: PLAN: Ventricular rate improved. Continue diltiazem, beta-blockers and digoxin. (2) Acute and chronic respiratory failure, unspecified whether with hypoxia or hypercapnia: PLAN: Extubated. (3) Pneumonia: PLAN: MRSA pneumonia. As per critical care. (4) Bronchiectasis: QUALIFIERS: Bronchiectasis type: uncomplicated Qualified Code(s): J47.9 - Bronchiectasis, uncomplicated PLAN: As per pulmonary critical care.
[2022-04-17 15:55] LABS: Bedside Glucose 108 mg/dL (74-106)
--- NOTE | 2022-04-17 16:21 | PN.HOSP_ITS ---
Subjective Subjective Patient was seen and examined today, she failed her swallowing eval and is n.p.o. again, I talked briefly with the patient's about insertion of a PEG tube for nutritional support and he is not against this. I talked with Dr. Reyes and Dr. Reyes requested that the patient be started on tube feedings via Dobbhoff and if she still needs PEG placement on Wednesday of next week he would be able to do it. I talked briefly with pulmonary medicine about her care. Objective Data Objective Data Vital Signs: Vital Signs Temp Pulse Resp BP Pulse Ox O2 Del Method O2 Flow Rate 98.1 F 67 21 H 106/47 L 99 Nasal Cannula 2 04/17/22 11:24 04/17/22 15:06 04/17/22 15:00 04/17/22 15:00 04/17/22 15:14 04/17/22 15:14 04/17/22 15:14 FiO2 40 04/15/22 20:48 Oxygen Flow Rate (L/min) 2 Oxygen Delivery Method Nasal Cannula Weight: 78.88 kg Body Mass Index (BMI) 26.6 Intake & Output: Intake and Output for Last 24 Hours 04/15/22 04/16/22 04/17/22 23:59 23:59 23:59 Intake Total 700 / 700 833.33 / 848.33 1055.50 / 1055.50 Output Total 225 / 1025 2450 / 2850 800 / 800 Balance 475 / -325 -1616.67 / -2001.67 255.50 / 255.50 Lab / Micro Data Result Diagrams: 04/17/22 05:47 04/17/22 05:47 Labs: Laboratory Results - last 24 hr 04/16/22 16:36: POC Glucose 44 L* 04/16/22 17:05: Total Bilirubin 0.50, Direct Bilirubin 0.30, AST 17, ALT 16, Alkaline Phosphatase 66, Total Protein 4.7 L, Albumin 1.9 L, Globulin 2.8 04/16/22 17:06: POC Glucose 247 H 04/16/22 20:50: Vancomycin Trough 23.6 H 04/16/22 21:50: POC Glucose 121 H 04/17/22 05:46: POC Glucose 201 H 04/17/22 05:47: WBC 21.4 H, RBC 2.76 L, Hgb 8.5 L, Hct 29.4 L, MCV 106.5 H, MCH 30.8, MCHC 28.9 L D, RDW Std Deviation 53.1 H, RDW Coeff of Lainey 17.4 H, Plt Count 165, MPV 12.7 H, Immature Gran % (Auto) 1.300 H, Neut % (Auto) 94.8 H, Lymph % (Auto) 1.4 L, [place] % (Auto) 2.4, Eos % (Auto) 0.0, Baso % (Auto) 0.1, Absolute Neuts (auto) 20.3 H, Absolute Lymphs (auto) 0.31 L, Nucleated RBC % 0.1, Differential Comment SCANNED 04/17/22 05:47: Sodium 139, Potassium 4.0, Chloride 103, Carbon Dioxide 35.0 H, Anion Gap 1 L, BUN 19 H, Creatinine 0.56, Estim Creat Clear Calc 98.69, Est GFR (MDRD) Af Amer 140, Est GFR (MDRD) Non-Af 116, BUN/Creatinine Ratio 34.0 H, Glu cose 196 H, Calcium 6.3 L* 04/17/22 15:35: POC Glucose 108 H Micro: Microbiology 04/12/22 08:10 Blood Culture (Wb) - No Site/Description Given Blood Culture - Final No growth in 5 days. 04/13/22 23:58 Stool Enteric Bacteriology - Final 04/13/22 11:42 Mucosa - Nose Respiratory Panel (PCR) - Final 04/11/22 15:30 Stool C. difficile DNA Amplification - Final 04/06/22 14:45 Blood Culture (Wb) - Arm Right Blood Culture - Final No growth in 5 days. 04/06/22 13:41 Blood Culture (Wb) - Anticubital Left Blood Culture - Final No growth in 5 days. 04/06/22 20:35 Sputum, Tracheal Aspirate Gram Stain - Final 04/06/22 20:35 Sputum, Tracheal Aspirate Respiratory Culture - Final Meth. resistant Staph. aureus 04/06/22 13:50 Urine Catheter - Bravo Urine Culture - Final Escherichia coli 04/06/22 21:40 Urine Catheter - Bravo Legionella Antigen - Final 04/06/22 21:40 Urine Catheter - Bravo Streptococcus pneumoniae Antigen (M - Final 04/06/22 14:50 Nasal Secretion SARS-CoV-2 & FLU Antigen (Rapid) - Final Rhythm Strip Rhythm Strip: A-fib Rate: 130 Physical Exam Narrative Patient responds to simple questions appropriately General Appearance: cooperative, well kempt and well developed Orientation / Consciousness:? somewhat somnolent, she does respond to verbal questioning HEENT normocephalic, head/scalp atraumatic and moist oral mucous membranes Eyes PERRL, EOMs intact bilaterally and conjunctivae normal Neck supple, no JVD, thyroid normal and no carotid bruits General: trachea midline Resp normal respiratory effort and no retractions Resp Narrative: Sounds are diminished bilaterally, inspiratory rales are noted over the right lung field at the base Auscultation: rales; Negative for rhonchi or wheezes Cardio Cardio Narrative: Heart rate and rhythm is regular, normal sinus rhythm GI normal to inspection, nondistended, normoactive bowel sounds, soft to palpation, non-tender and non-distended Extremity no clubbing, cyanosis or edema Skin no rashes or lesions noted General Skin Exam: no breakdown Neuro oriented x3, CN's II-XII intact bilaterally, no focal motor deficits and no sensory deficits noted Sensorium / Orientation: Patient is somnolent with confusion Speech: speech normal Psych Patient has a flat affect, she responds appropriately to verbal questioning Assessment & Plan Assessment/Plan (1) Atrial fibrillation with rapid ventricular response: PLAN: Plan 1. Acute on chronic combined respiratory failure-patient is now currently stable on 2 L by nasal cannula, chest x-ray yesterday showed no interval change from her previous chest x-ray on 04/12/2022. #2 MRSA pneumonia-patient remains on antibiotics per infectious diseases, patient's white blood cell count is 21,400 today, patient is currently on IV Solu-Medrol #3 acute cystitis with E. coli-patient is currently on Zosyn #4 acute exacerbation of COPD-patient is currently receiving aerosol treatments as well as IV Solu-Medrol #5 paroxysmal A. fib-converted to normal sinus rhythm at this time, patient remains on IV Cardizem, she will not be able to take her amiodarone and metopr olol until a Dobbhoff is inserted #6 type 2 diabetes-blood sugars will be monitored, sliding scale insulin will be used #7 acute kidney injury-kidney function has improved, creatinine is 0.56 today #8 metabolic encephalopathy-patient follows simple commands, she is n.p.o. currently, a Dobbhoff will need to be inserted today #9 oropharyngeal dysphagia-again patient will need a Dobbhoff inserted, if this is not successful, she will need an NG tube inserted, she will be reevaluated next week for PEG tube placement if she continues to have problems Charges/Coding Visit Charges Inpatient E&M: 61102 Subs Hosp L2
[2022-04-17] MEDS: Lidocaine Jelly 2% 20 ML Syringe (URO-JET) 1 APPLIC TOPICAL (16:30)
--- NOTE | 2022-04-17 17:05 | RAD_ITS ---
We are attempting to reach an attending provider to discuss findings. An addendum with communication details will be sent when the communication is complete. INDICATION: NG placement EXAMINATION/TECHNIQUE: X-RAY - XR Abdomen 1 View COMPARISON: None FINDINGS: BOWEL GAS PATTERN: Non-obstructive. No bowel or stomach distention. FREE AIR: Not assessed on a single supine view. ORGANOMEGALY: Not seen. CALCIFICATIONS: No abnormal calcifications observed. LOWER CHEST: Partially visualized enteric tube tip is in the right mainstem bronchus. No other change from prior radiograph 04/16/2022. BONES AND SOFT TISSUES: No acute pathology. RAD/Abdomen Single View (Portable) IMPRESSION: Partially visualized enteric tube tip is in the right mainstem bronchus. Recommend readjustment. Electronically Signed: Nghia Nguyen MD at 17:53 EST ,
[2022-04-17 17:53] LABS: Vancomycin, Random Level 17.8 ug/mL (0.0-15.0)
--- NOTE | 2022-04-17 18:12 | PCM.RX.CS ---
Consult Pharmacy has been consulted to manage selected antiobiotic: Vancomycin Type of Consult: Follow-up Suspected Infection: Pneumonia Labs: Sodium 139 mmol/L (136-145) 04/17/22 05:47 Potassium 4.0 mmol/L (3.5-5.1) 04/17/22 05:47 Chloride 103 mmol/L (98-107) 04/17/22 05:47 Carbon Dioxide 35.0 mmol/L (21.0-32.0) H 04/17/22 05:47 Anion Gap 1 (5-15) L 04/17/22 05:47 BUN 19 mg/dL (7-18) H 04/17/22 05:47 Creatinine 0.56 mg/dL (0.55-1.02) 04/17/22 05:47 Est GFR (MDRD) Af Amer 140 mL/min (>60) 04/17/22 05:47 Est GFR (MDRD) Non-Af 116 mL/min (>60) 04/17/22 05:47 BUN/Creatinine Ratio 34.0 RATIO (10-20) H 04/17/22 05:47 Glucose 196 mg/dL (74-106) H 04/17/22 05:47 Vancomycin Trough 23.6 ug/mL (5.0-15.0) H 04/16/22 20:50 Random Vancomycin 17.8 ug/mL (0.0-15.0) H 04/17/22 16:50 Microbiology: Microbiology 04/12/22 08:10 Blood Culture (Wb) - No Site/Description Given Blood Culture - Final No growth in 5 days. 04/13/22 23:58 Stool Enteric Bacteriology - Final 04/13/22 11:42 Mucosa - Nose Respiratory Panel (PCR) - Final 04/11/22 15:30 Stool C. difficile DNA Amplification - Final 04/06/22 14:45 Blood Culture (Wb) - Arm Right Blood Culture - Final No growth in 5 days. 04/06/22 13:41 Blood Culture (Wb) - Anticubital Left Blood Culture - Final No growth in 5 days. 04/06/22 20:35 Sputum, Tracheal Aspirate Gram Stain - Final 04/06/22 20:35 Sputum, Tracheal Aspirate Respiratory Culture - Final Meth. resistant Staph. aureus 04/06/22 13:50 Urine Catheter - Bravo Urine Culture - Final Escherichia coli 04/06/22 21:40 Urine Catheter - Bravo Legionella Antigen - Final 04/06/22 21:40 Urine Catheter - Bravo Streptococcus pneumoniae Antigen (M - Final 04/06/22 14:50 Nasal Secretion SARS-CoV-2 & FLU Antigen (Rapid) - Final Pharmacy Plan for Drug Dosing: VANCOMYCIN LEVEL RECEIVED Current Vancomycin Dose: ON HOLD, LAST 1000MG DOSE 04/16 @ 2152 Number of Doses Received: MANY Vancomycin Level: 17.8 MG/DL Hours Since Last Dose: 19 Renal Function: SCR 0.56 MG/DL, CRCL 92.1 ML/MIN Renal Function Trend: STABLE Lab/Micro: MRSA IN SPUTUM CX Vancomycin Plan/Comments: WILL RESTART DOSING SINCE LEVEL IS NOW WITHIN THERAPEUTIC RANGE. WILL DECREASE DOSE TO 750MG Q12 STARTING AT 1900 AND GET AT TROUGH PRIOR TO 4TH DOSE. Pending Level: 04/19/22 @ 0630 Pharmacy Service will continue to monitor and adjust dosing as required.
[2022-04-18] VITALS (29 sets, daily range): BP systolic 103–138; BP diastolic 43–77; PULSE 62–116; RESP 18–35; TEMP 36.6–37.1; O2SAT 93–99
[2022-04-18] MEDS: Dextrose 10%-Water 250 ML 40 ML IV ×4 (03:28→16:28)
[2022-04-18 05:50] LABS: Absolute Lymphocyte Count 0.58 X10^3/uL (0.83-4.51); Absolute Neutrophil Count 15.5 X10^3/uL (2.0-7.7); Basophil# 0.02 X10^3/uL; Basophil% 0.1 % (0-1); Eosinophil# 0.02 X10^3/uL; Eosinophils% 0.1 % (0-5); Hematocrit 27.7 % (37-47); Lymphocyte # 0.58 X10^3/ul (0.83-4.51); Lymphocyte % 3.5 % (19-41); Mean Corp Hgb Conc 28.9 g/dL (32-36); Mean Corpuscular Hgb 30.8 pg (27.0-32.0); Mean Corpuscular Volume 106.5 fL (81-99); Mean Platelet Vol. 12.4 fl (6.2-12.0); Monocyte% 2.4 % (0-10); NRBC Flagged by Analyzer 0.1 % (0-5); Neutrophil # 15.45 X10^3/uL (2.7-7.7); Neutrophil % 92.9 % (47-70); POSITIVE DIFFERENTIAL YES; Platelet Count 154 K/mm3 (150-450); RBC Distribution Width CV 18.1 % (11.6-14.6); RBC Distribution Width SD 53.2 fl (35.1-43.9); White Blood Count 16.6 K/mm3 (4.4-11.0)
[2022-04-18 06:04] LABS: Anion Gap 2 (5-15); BUN 15 mg/dL (7-18); BUN/Creat Ratio 32.1 RATIO (10-20); Chloride 102 mmol/L (98-107); Creatinine, Serum 0.47 mg/dL (0.55-1.02); EST Glomerular Filtration Rate 142 mL/min (>60); Est Glom Filt Rate - Afr Amer 172 mL/min (>60); Estimated Creatinine Clearance 117.59 ml/min; Glucose 104 mg/dL (74-106); Potassium 3.5 mmol/L (3.5-5.1); Sodium Level 139 mmol/L (136-145)
[2022-04-18 06:05] LABS: Bedside Glucose 162 mg/dL (74-106)
[2022-04-18 06:23] LABS: Differential Indicated SCAN CRITERIA MET
--- NOTE | 2022-04-18 06:23 | RAD_ITS ---
STUDY: X-RAY - ABDOMEN/PELVIS REASON FOR EXAM: Female, 66 years old. NG placement TECHNIQUE: Single AP view of the low chest upper abdomen COMPARISON: April 17, 2022 chest x-ray FINDINGS: There is a persistent pattern of interstitial thickening. An NG tube is present the tip is in the stomach. This visualize contrast within the colon. There is a partially visualized right central line PICC line with the tip in the superior vena cava. RAD/Abdomen Single View (Portable) IMPRESSION: Interstitial lung disease and/or infiltrates. NG tube the tip in the stomach. Contrast within the colon. Electronically Signed: Gracie Mercado MD at 8:55 EST Reading Location ID and State: [facility] / [place] Tel , Service support ,
[2022-04-18 06:24] LABS: Differential Comment SCANNED
--- NOTE | 2022-04-18 06:54 | PN.CC_ITS ---
Assessment & Plan Assessment/Plan (1) Acute and chronic respiratory failure, unspecified whether with hypoxia or hypercapnia: (2) Chronic atrial fibrillation with rapid ventricular response: (3) Bronchiectasis: QUALIFIERS: Bronchiectasis type: uncomplicated Qualified Code(s): J47.9 - Bronchiectasis, uncomplicated (4) Pneumonia: PLAN: Plan RECOMMENDATIONS: 1. Continue to wean supplemental oxygen to maintain saturations at or above 90%. 2. Antimicrobials per ID recommendations. 3. Defer management of atrial fibrillation to cardiology. Possibly transition to p.o. Cardizem today 4. Encourage incentive spirometer use and mobilize patient as tolerated. 5. Continue as needed bronchodilators. 6. Continue Xarelto per home regimen. 7. NG in appropriate position. Okay to initiate tube feeds and continue with speech therapy 8. Will sign off from a critical care perspective. Please call with any additional questions. IMPRESSIONS: 1. Acute on chronic combined respiratory failure secondary to bilateral pneumonia Improved. The patient has been successfully weaned from invasive mechanical ventilatory support and is doing well from a respiratory perspective on supplemental oxygen via nasal cannula. Plan to continue antimicrobials per ID recommendations. Supplemental oxygen can be weaned to maintain saturations at or above 90%. Continue to encourage incentive spirometer use and mobilize patient as tolerated. Recommend tube feeds through NG to help with debility with ongoing speech therapy. Pulmonary toileting will be vital to avoid respiratory complications 2. Encephalopathy Improved. Initially felt to be metabolic in etiology. CT head was unremarkable. 3. Acute kidney injury secondary to sepsis d/t pneumonia Resolved. Kidney function has improved with stabilization of hemodynamics. Continue to monitor urine output. No current indication for renal replacement therapy. 4. A. fib with RVR Continue systemic anticoagulation per baseline. Cardiology is following to assist with medical management of atrial fibrillation. Patient in normal sinus rhythm. Defer to cardiology on transition to p.o. Cardizem 5. Anemia/hypertension/debility/bronchiectasis/rheumatoid lung disease Complicates care, management, recovery and prognosis. No indication for transfusions at this time. This note was generated with [employer] dictation software. It may contain incorrect words, spelling, and punctuation that were not noted in checking the note before signing. Subjective Subjective Patient did okay overnight. Patient continues to have a moist cough and was made NPO. Initial attempts at NG were unsuccessful. Reattempted this morning and KUB shows appropriate placement. Patient is not reporting any pain. Oxygen requirements have remained stable. Patient has remained in normal sinus rhythm on Cardizem. Objective Data Objective Data Personal review of KUB shows NG in appropriate position. Vital Signs: Vital Signs Temp Pulse Resp BP Pulse Ox O2 Del Method O2 Flow Rate 36.9 C 95 24 H 109/74 96 Nasal Cannula 2 04/18/22 06:00 04/18/22 06:00 04/18/22 06:00 04/18/22 06:00 04/18/22 06:00 04/18/22 06:00 04/18/22 06:00 FiO2 40 04/15/22 20:48 Oxygen Flow Rate (L/min) 2 Oxygen Delivery Method Nasal Cannula Weight: 80.195 kg Body Mass Index (BMI) 26.6 Intake & Output: Intake and Output for Last 24 Hours 04/16/22 04/17/22 04/18/22 23:59 23:59 23:59 Intake Total 833.33 / 848.33 1688.00 / 1698.00 400.66 / 400.66 Output Total 2450 / 2850 800 / 800 200 / 200 Balance -1616.67 / -2001.67 888.00 / 898.00 200.66 / 200.66 Lab / Micro Data Result Diagrams: 04/18/22 05:40 04/18/22 05:40 Labs: Laboratory Results - last 24 hr 04/17/22 15:35: POC Glucose 108 H 04/17/22 16:50: Random Vancomycin 17.8 H 04/18/22 05:40: WBC 16.6 H, RBC 2.60 L, Hgb 8.0 L, Hct 27.7 L, MCV 106.5 H, MCH 30.8, MCHC 28.9 L, RDW Std Deviation 53.2 H, RDW Coeff of Lainey 18.1 H, Plt Count 154, MPV 12.4 H, Immature Gran % (Auto) 1.000 H, Neut % (Auto) 92.9 H, Lymph % (Auto) 3.5 L, [place] % (Auto) 2.4, Eos % (Auto) 0.1, Baso % (Auto) 0.1, Absolute Neuts (auto) 15.5 H, Absolute Lymphs (auto) 0.58 L, Nucleated RBC % 0.1, Differential Comment SCANNED 12/31/22 05:40: Sodium 139, Potassium 3.5, Chloride 102, Carbon Dioxide 35.0 H, Anion Gap 2 L, BUN 15, Creatinine 0.47 L, Estim Creat Clear Calc 117.59, Est GFR (MDRD) Af Amer 172, Est GFR (MDRD) Non-Af 142, BUN/Creatinine Ratio 32.1 H, Glucose 104, Calcium 7.0 L 04/18/22 05:43: POC Glucose 162 H Micro: Microbiology 04/12/22 08:10 Blood Culture (Wb) - No Site/Description Given Blood Culture - Final No growth in 5 days. 04/13/22 23:58 Stool Enteric Bacteriology - Final 04/13/22 11:42 Mucosa - Nose Respiratory Panel (PCR) - Final 04/11/22 15:30 Stool C. difficile DNA Amplification - Final 04/06/22 14:45 Blood Culture (Wb) - Arm Right Blood Culture - Final No growth in 5 days. 04/06/22 13:41 Blood Culture (Wb) - Anticubital Left Blood Culture - Final No growth in 5 days. 04/06/22 20:35 Sputum, Tracheal Aspirate Gram Stain - Final 04/06/22 20:35 Sputum, Tracheal Aspirate Respiratory Culture - Final Meth. resistant Staph. aureus 04/06/22 13:50 Urine Catheter - Bravo Urine Culture - Final Escherichia coli 04/06/22 21:40 Urine Catheter - Bravo Legionella Antigen - Final 04/06/22 21:40 Urine Catheter - Bravo Streptococcus pneumoniae Antigen (M - Final 04/06/22 14:50 Nasal Secretion SARS-CoV-2 & FLU Antigen (Rapid) - Final Radiography Diagnostic Testing: Radiology Impression KUB X-Ray 04/17/22 17:05 IMPRESSION: Partially visualized enteric tube tip is in the right mainstem bronchus. Recommend readjustment. Electronically Signed: Nghia Ngyuen MD at 17:53 EST , ADDENDUM: 04/17/22 1810 IMPRESSION: Partially visualized enteric tube tip is in the right mainstem bronchus. Recommend readjustment. N.B. : The above Results were Read Back by Nghia Nugyen MD to Dory Austin RN, and understanding confirmed on 04/17/2022 18:03:12 (ET). Electronically Signed: Nghia Nguyen MD at 17:53 EST , Rhythm Strip Rhythm Strip: Sinus Rhythm Rate: 75 Physical Exam Const alert and no apparent distress Constitutional Narrative: Moist cough noted General Appearance: cooperative HEENT normocephalic, head/scalp atraumatic and moist oral mucous membranes HEENT Narrative: NG in place. Eyes PERRL, EOMs intact bilaterally and conjunctivae normal Eyes Narrative: No icterus Neck no lymphadenopathy, supple and no JVD General: trachea midline Chest inspection of chest normal Resp Auscultation: diminished lung sounds; Negative for rales, rhonchi or wheezes Cardio regular rate, regular rhythm, S1 normal heart sound, S2 normal heart sound, no murmurs, no rub and no gallops GI soft to palpation, non-tender and non-distended Extremity normal to inspection and full ROM General Extremity: edema Skin no rashes or lesions noted Neuro moves all extremities and no focal motor deficits Psych Mood & Affect: flat affect Charges/Coding Visit Charges Inpatient E&M: 44783 Subs Hosp L2
[2022-04-18] MEDS: Menthol/Lanolin/Calamine/Znox 113 GM Tube 1 APPLIC TOPICAL ×3 (08:36→18:00)
[2022-04-18] MEDS: Amiodarone 200 MG Tablet PO (09:23)
[2022-04-18] MEDS: Metoprolol Tartrate 100 MG Tablet 150 MG GT ×2 (09:23→22:16)
--- NOTE | 2022-04-18 11:17 | PCM.PN.CARD ---
Subjective Subjective The patient remains in the ICU. She remains with an NG tube in place. She is receiving medications through the NG tube based upon concerns of her swallowing difficulties. She denies any acute ongoing chest discomfort. Her family member is with her and states that she always has wheezing on examination. Objective Data Vital Signs: Vital Signs Temp Pulse Resp BP Pulse Ox O2 Del Method O2 Flow Rate 98.7 F 62 27 H 104/54 L 93 Nasal Cannula 3 04/18/22 08:00 04/18/22 10:00 04/18/22 10:00 04/18/22 10:00 04/18/22 10:00 04/18/22 10:00 04/18/22 10:00 FiO2 40 04/15/22 20:48 Oxygen Flow Rate (L/min) 3 Oxygen Delivery Method Nasal Cannula Weight: 176 lb 12.795 oz Body Mass Index (BMI) 26.6 Intake & Output: Intake and Output for Last 24 Hours 04/16/22 04/17/22 04/18/22 23:59 23:59 23:59 Intake Total 833.33 / 848.33 1688.00 / 1698.00 982.99 / 982.99 Output Total 2450 / 2850 800 / 800 200 / 200 Balance -1616.67 / -2001.67 888.00 / 898.00 782.99 / 782.99 Lab / Micro Data Result Diagrams: 04/18/22 05:40 04/18/22 05:40 Labs: Laboratory Results - last 24 hr 04/17/22 15:35: POC Glucose 108 H 04/17/22 16:50: Random Vancomycin 17.8 H 04/18/22 05:40: WBC 16.6 H, RBC 2.60 L, Hgb 8.0 L, Hct 27.7 L, MCV 106.5 H, MCH 30.8, MCHC 28.9 L, RDW Std Deviation 53.2 H, RDW Coeff of Lainey 18.1 H, Plt Count 154, MPV 12.4 H, Immature Gran % (Auto) 1.000 H, Neut % (Auto) 92.9 H, Lymph % (Auto) 3.5 L, [place] % (Auto) 2.4, Eos % (Auto) 0.1, Baso % (Auto) 0.1, Absolute Neuts (auto) 15.5 H, Absolute Lymphs (auto) 0.58 L, Nucleated RBC % 0.1, Differential Comment SCANNED 04/18/22 05:40: Sodium 139, Potassium 3.5, Chloride 102, Carbon Dioxide 35.0 H, Anion Gap 2 L, BUN 15, Creatinine 0.47 L, Estim Creat Clear Calc 117.59, Est GFR (MDRD) Af Amer 172, Est GFR (MDRD) Non-Af 142, BUN/Creatinine Ratio 32.1 H, Glucose 104, Calcium 7.0 L 04/18/22 05:43: POC Glucose 162 H Micro: Microbiology 04/12/22 08:10 Blood Culture (Wb) - No Site/Description Given Blood Culture - Final No growth in 5 days. Rhythm Strip Rhythm Strip: Sinus Rhythm Rate: 75 Cardiology Labs/Tests 04/18/22 05:40: WBC 16.6 H, RBC 2.60 L, Hgb 8.0 L, Hct 27.7 L, MCV 106.5 H, MCH 30.8, MCHC 28.9 L, Plt Count 154, MPV 12.4 H, Immature Gran % (Auto) 1.000 H, Neut % (Auto) 92.9 H, Lymph % (Auto) 3.5 L, [place] % (Auto) 2.4, Eos % (Auto) 0.1, Baso % (Auto) 0.1, Absolute Neuts (auto) 15.5 H, Nucleated RBC % 0.1 04/18/22 05:40: Sodium 139, Potassium 3.5, Chloride 102, Carbon Dioxide 35.0 H, Anion Gap 2 L, BUN 15, Creatinine 0.47 L, Est GFR (MDRD) Af Amer 172, Est GFR (MDRD) Non-Af 142, BUN/Creatinine Ratio 32.1 H, Glucose 104, Calcium 7.0 L Rhythm: Sinus rhythm ECHO: 04-16-2022 Interpretation Summary The study was technically difficult. The left ventricular ejection fraction is 55 %. ? Radiography Diagnostic Testing: Radiology Impression KUB X-Ray 04/17/22 17:05 IMPRESSION: Partially visualized enteric tube tip is in the right mainstem bronchus. Recommend readjustment. Electronically Signed: Nghia Nguyen MD at 17:53 EST , ADDENDUM: 04/17/22 1810 IMPRESSION: Partially visualized enteric tube tip is in the right mainstem bronchus. Recommend readjustment. N.B. : The above Results were Read Back by Nghia Nguyen MD to oDry Austin RN, and understanding confirmed on 04/17/2022 18:03:12 (ET). Electronically Signed: Nghia Nguyen MD at 17:53 EST , KUB X-Ray 04/18/22 06:23 IMPRESSION: Interstitial lung disease and/or infiltrates. NG tube the tip in the stomach. Contrast within the colon. Electronically Signed: Gracie Mercado MD at 8:55 EST , Physical Exam Const alert, oriented x3 and no apparent distress Orientation / Consciousness: awake HEENT normocephalic, head/scalp atraumatic and hearing grossly normal bilaterally Eyes PERRL, EOMs intact bilaterally, conjunctivae normal and no scleral icterus Neck full ROM, supple and no JVD Resp Auscultation: wheezes scattered wheezes Cardio regular rate, regular rhythm, S1 normal heart sound and S2 normal heart sound GI normal to inspection, nondistended, normoactive bowel sounds GI Narrative: NG tube in place Extremity General Extremity: edema bilateral upper extremity mild Skin no rashes or lesions noted Psych mental status grossly normal Assessment & Plan Assessment/Plan (1) Atrial fibrillation with rapid ventricular response: PLAN: The patient appears to be in sinus rhythm at this time. It appears she has been on IV diltiazem and oral beta-ruby therapy. An attempt was made to transition her IV diltiazem to an oral form. This may include transitioning to a short acting diltiazem such as 30 mg p.o. 4 times daily and monitoring her rate and rhythm response. Over time consideration will be given, depending upon her rate and rhythm response, as to whether she needs both calcium channel antagonist and beta-blockers. She also is on amiodarone therapy. Again over time consideration will be given as to whether or not she continues with antiarrhythmic therapy. She has been on anticoagulant therapy. It is currently on hold at this time. (2) Pneumonia: PLAN: The patient has been undergoing evaluation and care for pneumonia. This potentially can complicate her cardiac rhythm related issues. She will need continued valuation care by her internal medicine team and her pulmonology team. (3) Bronchiectasis: QUALIFIERS: Bronchiectasis type: uncomplicated Qualified Code(s): J47.9 - Bronchiectasis, uncomplicated PLAN: The patient apparently has a history of bronchiectasis. This may be contributing to her chronic wheezing according to her family member. She will continue evaluation care per internal medicine and her pulmonology team. (4) KAY (acute kidney injury): PLAN: The patient's creatinine level appears to improved over time. This does benefit her with respect to being able to adjust medications. (5) Anemia: PLAN: The patient appears to have a history of chronic anemia. Her hemoglobin level is somewhat lower. She does need to be monitored for any obvious hemorrhagic issues. Her anticoagulant therapy is currently on hold Addcristi'l Comments The patient's case was discussed and reviewed with the patient, her family member present, and Dr. Richards. This note was generated using a voice recognition system and there may be incorrect words, spelling or punctuation that were not noted when reviewing the office note prior to saving. Procedure Criteria Type of Procedure Procedure Type: Elective Elective Risks - COVID COVID Risk Discussion: The surgeon/proceduralist and patient have discussed in detail the risk of exposure to and/or potential harm posed by the COVID-19 virus with having a surgery/procedure at this time versus the risk of delaying the surgery/procedure. It is not possible to know either the risk of delaying the surgery or procedure or chance of getting an infection with perfect accuracy, but a joint decision was made between the patient and the surgeon/proceduralist to proceed at this time with the scheduled surgery/procedure as indicated on the consent form.
[2022-04-18] MEDS: dilTIAZem 30 MG Tablet PO ×2 (11:59→18:00)
[2022-04-18 12:31] LABS: Bedside Glucose 57 mg/dL (74-106)
--- NOTE | 2022-04-18 13:35 | PN.HOSP_ITS ---
Subjective Subjective Patient was seen and examined today, she now has an NG tube in place, she is alert but somewhat sleepy. Cardiology saw her today and changed her Cardizem drip to Cardizem down the NG tube. She remains in sinus rhythm at this time. Objective Data Objective Data Vital Signs: Vital Signs Temp Pulse Resp BP Pulse Ox O2 Del Method O2 Flow Rate 98.7 F 67 35 H 108/55 L 97 Nasal Cannula 2 04/18/22 08:00 04/18/22 12:00 04/18/22 12:00 04/18/22 12:00 04/18/22 13:10 04/18/22 12:02 04/18/22 13:10 FiO2 40 04/15/22 20:48 Oxygen Flow Rate (L/min) 2 Oxygen Delivery Method Nasal Cannula Weight: 80.195 kg Body Mass Index (BMI) 26.6 Intake & Output: Intake and Output for Last 24 Hours 04/16/22 04/17/22 04/18/22 23:59 23:59 23:59 Intake Total 833.33 / 848.33 1688.00 / 1698.00 991.91 / 991.91 Output Total 2450 / 2850 800 / 800 200 / 200 Balance -1616.67 / -2001.67 888.00 / 898.00 791.91 / 791.91 Lab / Micro Data Result Diagrams: 04/18/22 05:40 04/18/22 05:40 Labs: Laboratory Results - last 24 hr 04/17/22 15:35: POC Glucose 108 H 04/17/22 16:50: Random Vancomycin 17.8 H 04/18/22 05:40: WBC 16.6 H, RBC 2.60 L, Hgb 8.0 L, Hct 27.7 L, MCV 106.5 H, MCH 30.8, MCHC 28.9 L, RDW Std Deviation 53.2 H, RDW Coeff of Lainey 18.1 H, Plt Count 154, MPV 12.4 H, Immature Gran % (Auto) 1.000 H, Neut % (Auto) 92.9 H, Lymph % ( Auto) 3.5 L, [place] % (Auto) 2.4, Eos % (Auto) 0.1, Baso % (Auto) 0.1, Absolute Neuts (auto) 15.5 H, Absolute Lymphs (auto) 0.58 L, Nucleated RBC % 0.1, Differential Comment SCANNED 04/18/22 05:40: Sodium 139, Potassium 3.5, Chloride 102, Carbon Dioxide 35.0 H, Anion Gap 2 L, BUN 15, Creatinine 0.47 L, Estim Creat Clear Calc 117.59, Est GFR (MDRD) Af Amer 172, Est GFR (MDRD) Non-Af 142, BUN/Creatinine Ratio 32.1 H, Glucose 104, Calcium 7.0 L 04/18/22 05:43: POC Glucose 162 H 04/18/22 12:07: POC Glucose 57 L Micro: Microbiology 04/12/22 08:10 Blood Culture (Wb) - No Site/Description Given Blood Culture - Final No growth in 5 days. 04/13/22 23:58 Stool Enteric Bacteriology - Final 04/13/22 11:42 Mucosa - Nose Respiratory Panel (PCR) - Final 04/11/22 15:30 Stool C. difficile DNA Amplification - Final 04/06/22 14:45 Blood Culture (Wb) - Arm Right Blood Culture - Final No growth in 5 days. 04/06/22 13:41 Blood Culture (Wb) - Anticubital Left Blood Culture - Final No growth in 5 days. 04/06/22 20:35 Sputum, Tracheal Aspirate Gram Stain - Final 04/06/22 20:35 Sputum, Tracheal Aspirate Respiratory Culture - Final Meth. resistant Staph. aureus 04/06/22 13:50 Urine Catheter - Bravo Urine Culture - Final Escherichia coli 04/06/22 21:40 Urine Catheter - Bravo Legionella Antigen - Final 04/06/22 21:40 Urine Catheter - Bravo Streptococcus pneumoniae Antigen (M - Final 04/06/22 14:50 Nasal Secretion SARS-CoV-2 & FLU Antigen (Rapid) - Final Radiography Diagnostic Testing: Radiology Impression KUB X-Ray 04/17/22 17:05 IMPRESSION: Partially visualized enteric tube tip is in the right mainstem bronchus. Recommend readjustment. Electronically Signed: Nghia Nguyen MD at 17:53 EST , ADDENDUM: 04/17/22 1810 IMPRESSION: Partially visualized enteric tube tip is in the right mainstem bronchus. Recommend readjustment. N.B. : The above Results were Read Back by Nghia Nguyen MD to Dory Austin RN, and understanding confirmed on 04/17/2022 18:03:12 (ET). Electronically Signed: Nghia Nguyen MD at 17:53 EST , KUB X-Ray 04/18/22 06:23 IMPRESSION: Interstitial lung disease and/or infiltrates. NG tube the tip in the stomach. Contrast within the colon. Electronically Signed: Gracie Mercado MD at 8:55 EST , Rhythm Strip Rhythm Strip: Sinus Rhythm Rate: 75 Physical Exam Narrative Patient responds to simple questions appropriately General Appearance: cooperative, well kempt and well developed Orientation / Consciousness:? somewhat somnolent, she does respond to verbal questioning HEENT normocephalic, head/scalp atraumatic and moist oral mucous membranes Eyes PERRL, EOMs intact bilaterally and conjunctivae normal Neck supple, no JVD, thyroid normal and no carotid bruits General: trachea midline Resp normal respiratory effort and no retractions Resp Narrative: Sounds are diminished bilaterally, inspiratory rales are noted over the right lung field at the base Auscultation: rales; Negative for rhonchi or wheezes Cardio Cardio Narrative: Heart rate and rhythm is regular, normal sinus rhythm GI normal to inspection, nondistended, normoactive bowel sounds, soft to palpation, non-tender and non-distended Extremity no clubbing, cyanosis or edema Skin no rashes or lesions noted General Skin Exam: no breakdown Neuro oriented x3, CN's II-XII intact bilaterally, no focal motor deficits and no sensory deficits noted Sensorium / Orientation: Patient is somnolent with confusion Speech: speech normal Psych Patient has a flat affect, she responds appropriately to verbal questioning Assessment & Plan Assessment/Plan (1) Atrial fibrillation with rapid ventricular response: PLAN: Plan 1. Acute on chronic combined respiratory failure-patient is now currently stable on 2 L by nasal cannula, chest x-ray on 04/16/2022 showed no interval change from her previous chest x-ray on 04/12/2022. #2 MRSA pneumonia-patient remains on antibiotics per infectious diseases, patient's white blood cell count is 16.6 today, patient is currently on IV Solu- Medrol #3 acute cystitis with E. coli-patient is currently on Zosyn #4 acute exacerbation of COPD-patient is currently receiving aerosol treatments as well as IV Solu-Medrol #5 paroxysmal A. fib-converted to normal sinus rhythm at this time, patient remains on IV Cardizem, she will not be able to take her amiodarone and metoprolol until a Dobbhoff is inserted #6 type 2 diabetes-blood sugars will be monitored, sliding scale insulin will be used #7 acute kidney injury-kidney function has improved, creatinine is 0.47 today #8 metabolic encephalopathy-patient follows simple commands, she is n.p.o. currently, a Dobbhoff will need to be inserted today #9 oropharyngeal dysphagia-patient now has an NG tube in, tube feedings were started, again her Cardizem was converted to Cardizem down her NG tube. Charges/Coding Visit Charges Inpatient E&M: 27944 Subs Hosp L2
[2022-04-18] MEDS: Jevity 1.5. 1,000 ML Bottle 240 ML NG ×3 (14:26→22:18)
[2022-04-18 17:31] LABS: Bedside Glucose 157 mg/dL (74-106)
--- NOTE | 2022-04-18 19:00 | NURSING ---
emergency documentation
[2022-04-18] MEDS: Albuterol 2.5 MG/3 ML VIAL.NEB. INHALATION (20:06)
--- NOTE | 2022-04-18 20:07 | CPS ---
Pt is short of breath, working to breathe, sound hannah. Aeroso l Tx with albuterol given. No change after aerosol. RN aware
[2022-04-18 23:15] LABS: Bedside Glucose 109 mg/dL (74-106)
[2022-04-19] VITALS (15 sets, daily range): BP systolic 111–124; BP diastolic 46–69; PULSE 90–111; RESP 18–36; TEMP 36.5–36.7; O2SAT 94–100
[2022-04-19] MEDS: dilTIAZem 30 MG Tablet PO ×2 (00:53→07:52)
[2022-04-19] MEDS: Lidocaine 4% 5 ML Ampul 2 ML INHALATION (05:18)
--- NOTE | 2022-04-19 05:40 | RAD_ITS ---
INDICATION: NG insertion -- portable EXAMINATION/TECHNIQUE: X-RAY - AP view of upper abdomen XR Abdomen 1 View COMPARISON: Upper abdominal radiograph from one day prior. FINDINGS: Enteric tube tip adequately positioned within distal gastric lumen. Mild residual colonic gaseous distention noted. Stable multifocal hazy bilateral pulmonary opacities. Right PICC tip at lower SVC. Heart normal size. Skeletal degenerative changes. RAD/Abdomen Single View IMPRESSION: Adequate position of enteric tube. Electronically Signed: Navjot Gutierres MD at 7:21 EST ,
--- NOTE | 2022-04-19 06:30 | NURSING ---
This RN went to check on patient, NG tube was laying in bed pulled out. New tube re-inserted and waiting on KUB.
[2022-04-19 07:05] LABS: Bedside Glucose 99 mg/dL (74-106)
[2022-04-19] MEDS: Jevity 1.5. 1,000 ML Bottle 240 ML NG ×2 (07:59→15:50)
[2022-04-19] MEDS: 0.9% Saline Lock 10 ML Syringe IV ×5 (08:21→18:39)
--- NOTE | 2022-04-19 08:32 | PCM.RX.CS ---
Consult Pharmacy has been consulted to manage selected antiobiotic: Vancomycin Type of Consult: Follow-up Suspected Infection: Pneumonia Prior Doses of Antibiotics Received/Current Regimen: Currently on 750mg iv q12h. Labs: Sodium 139 mmol/L (136-145) 04/18/22 05:40 Potassium 3.5 mmol/L (3.5-5.1) 04/18/22 05:40 Chloride 102 mmol/L (98-107) 04/18/22 05:40 Carbon Dioxide 35.0 mmol/L (21.0-32.0) H 04/18/22 05:40 Anion Gap 2 (5-15) L 04/18/22 05:40 BUN 15 mg/dL (7-18) 04/18/22 05:40 Creatinine 0.47 mg/dL (0.55-1.02) L 04/18/22 05:40 Est GFR (MDRD) Af Amer 172 mL/min (>60) 04/18/22 05:40 Est GFR (MDRD) Non-Af 142 mL/min (>60) 04/18/22 05:40 BUN/Creatinine Ratio 32.1 RATIO (10-20) H 04/18/22 05:40 Glucose 104 mg/dL (74-106) 04/18/22 05:40 Vancomycin Trough 18.0 ug/mL (5.0-15.0) H 04/19/22 06:30 Random Vancomycin 17.8 ug/mL (0.0-15.0) H 04/17/22 16:50 Microbiology: Microbiology 04/12/22 08:10 Blood Culture (Wb) - No Site/Description Given Blood Culture - Final No growth in 5 days. 04/13/22 23:58 Stool Enteric Bacteriology - Final 04/13/22 11:42 Mucosa - Nose Respiratory Panel (PCR) - Final 04/11/22 15:30 Stool C. difficile DNA Amplification - Final 04/06/22 14:45 Blood Culture (Wb) - Arm Right Blood Culture - Final No growth in 5 days. 04/06/22 13:41 Blood Culture (Wb) - Anticubital Left Blood Culture - Final No growth in 5 days. 04/06/22 20:35 Sputum, Tracheal Aspirate Gram Stain - Final 04/06/22 20:35 Sputum, Tracheal Aspirate Respiratory Culture - Final Meth. resistant Staph. aureus 04/06/22 13:50 Urine Catheter - Bravo Urine Culture - Final Escherichia coli 04/06/22 21:40 Urine Catheter - Bravo Legionella Antigen - Final 04/06/22 21:40 Urine Catheter - Bravo Streptococcus pneumoniae Antigen (M - Final 04/06/22 14:50 Nasal Secretion SARS-CoV-2 & FLU Antigen (Rapid) - Final Weight used for dosin kg Estimated Creatinine Clearance: 104 ml/min Goal Trough: 15-20 mcg/mL Pharmacy Plan for Drug Dosing: Trough level today 18.0 and in therapeutic range of 15-20mcg/ml. Renal function slightly improved with Cr from 0.56 to 0.47. Will continue same dose. Another trough level ordered for before another 4th dose. Pharmacy Service will continue to monitor and adjust dosing as required. Follow-Up Labs: Trough Vancomycin - 1.2.23@1830 before 1900 dose
[2022-04-19] MEDS: Amiodarone 200 MG Tablet PO (11:08)
[2022-04-19] MEDS: Menthol/Lanolin/Calamine/Znox 113 GM Tube 1 APPLIC TOPICAL ×4 (11:08→23:11)
[2022-04-19] MEDS: Metoprolol Tartrate 100 MG Tablet 150 MG GT ×2 (11:09→23:44)
--- NOTE | 2022-04-19 11:39 | PCM.PN.CARD ---
Subjective Subjective The patient is now in the PCU. She remains with her swallowing difficulties. She remains with NG type tube in place. Objective Data Vital Signs: Vital Signs Temp Pulse Resp BP Pulse Ox O2 Del Method O2 Flow Rate 97.7 F L 101 H 18 118/69 94 Nasal Cannula 4 04/19/22 11:00 04/19/22 11:09 04/19/22 11:00 04/19/22 11:00 04/19/22 11:00 04/19/22 11:00 04/19/22 11:00 FiO2 40 04/15/22 20:48 Oxygen Flow Rate (L/min) 4 Oxygen Delivery Method Nasal Cannula Weight: 176 lb 13.324 oz Body Mass Index (BMI) 26.6 Intake & Output: Intake and Output for Last 24 Hours 04/17/22 04/18/22 04/19/22 23:59 23:59 23:59 Intake Total 1688.00 / 1698.00 2335.58 / 2335.58 265 / 265 Output Total 800 / 800 200 / 200 Balance 888.00 / 898.00 2135.58 / 2135.58 265 / 265 Lab / Micro Data Result Diagrams: 04/18/22 05:40 04/18/22 05:40 Labs: Laboratory Results - last 24 hr 04/18/22 12:07: POC Glucose 57 L 04/18/22 17:13: POC Glucose 157 H 04/18/22 22:43: POC Glucose 109 H 04/19/22 06:30: Vancomycin Trough 18.0 H 04/19/22 06:41: POC Glucose 99 Rhythm Strip Rhythm Strip: Sinus Rhythm Rate: 75 Cardiology Labs/Tests Rhythm: Atrial fibrillation Radiography Diagnostic Testing: Radiology Impression KUB X-Ray 04/19/22 05:40 IMPRESSION: Adequate position of enteric tube. Electronically Signed: Navjot Gutierres MD at 7:21 EST , Physical Exam Const alert, oriented x3 and no apparent distress Orientation / Consciousness: awake HEENT normocephalic, head/scalp atraumatic and hearing grossly normal bilaterally Eyes PERRL, EOMs intact bilaterally, conjunctivae normal and no scleral icterus Neck full ROM, supple and no JVD Resp Auscultation: rhonchi throughout and wheezes scattered wheezes Cardio regular rate, regular rhythm, S1 normal heart sound and S2 normal heart sound GI normal to inspection, nondistended, normoactive bowel sounds GI Narrative: NG tube in place Extremity General Extremity: edema bilateral upper extremity mild Skin no rashes or lesions noted Psych mental status grossly normal Assessment & Plan Assessment/Plan (1) Atrial fibrillation with rapid ventricular response: PLAN: The patient appears to have demonstrated atrial fibrillation. She has been transitioned to oral diltiazem therapy. Her dose will be increased to 60 mg p.o. 4 times daily unless otherwise not tolerated. She also is on amiodarone therapy. Again over time consideration will be given as to whether or not she continues with antiarrhythmic therapy. She has been on anticoagulant therapy. It is currently on hold at this time. (2) Pneumonia: PLAN: The patient has been undergoing evaluation and care for pneumonia. This potentially can complicate her cardiac rhythm related issues. She will need continued valuation care by her internal medicine team and her pulmonology team. (3) Bronchiectasis: QUALIFIERS: Bronchiectasis type: uncomplicated Qualified Code(s): J47.9 - Bronchiectasis, uncomplicated PLAN: The patient apparently has a history of bronchiectasis. This may be contributing to her chronic wheezing according to her family member. She will continue evaluation care per internal medicine and her pulmonology team. (4) KAY (acute kidney injury): PLAN: The patient's creatinine level appears to improved over time. This does benefit her with respect to being able to adjust medications. (5) Anemia: PLAN: The patient appears to have a history of chronic anemia. Her hemoglobin level is somewhat lower than yesterday. She does need to be monitored for any obvious hemorrhagic issues. Her anticoagulant therapy is currently on hold Addt'l Comments The patient's case was discussed and reviewed with the patient, her spouse, and Dr. Richards. This note was generated using a voice recognition system and there may be incorrect words, spelling or punctuation that were not noted when reviewing the office note prior to saving. Procedure Criteria Type of Procedure Procedure Type: Elective Elective Risks - COVID COVID Risk Discussion: The surgeon/proceduralist and patient have discussed in detail the risk of exposure to and/or potential harm posed by the COVID-19 virus with having a surgery/procedure at this time versus the risk of delaying the surgery/procedure. It is not possible to know either the risk of delaying the surgery or procedure or chance of getting an infection with perfect accuracy, but a joint decision was made between the patient and the surgeon/proceduralist to proceed at this time with the scheduled surgery/procedure as indicated on the consent form.
[2022-04-19 12:55] LABS: Bedside Glucose 178 mg/dL (74-106)
[2022-04-19] MEDS: dilTIAZem 60 MG Tablet PO (13:22)
--- NOTE | 2022-04-19 17:02 | PN.HOSP_ITS ---
Subjective Subjective Patient was seen and examined today, her was in the room at the time of my examination, patient is currently on 4 L via nasal cannula. Patient appears to be tolerating tube feedings. Objective Data Objective Data Vital Signs: Vital Signs Temp Pulse Resp BP Pulse Ox O2 Del Method O2 Flow Rate 97.7 F L 90 18 111/67 94 Nasal Cannula 4 04/19/22 11:00 04/19/22 13:21 04/19/22 11:00 04/19/22 13:21 04/19/22 11:00 04/19/22 11:00 04/19/22 11:00 FiO2 40 04/15/22 20:48 Oxygen Flow Rate (L/min) 4 Oxygen Delivery Method Nasal Cannula Weight: 80.21 kg Body Mass Index (BMI) 26.6 Intake & Output: Intake and Output for Last 24 Hours 04/17/22 04/18/22 04/19/22 23:59 23:59 23:59 Intake Total 1688.00 / 1698.00 2335.58 / 2335.58 655 / 655 Output Total 800 / 800 200 / 200 Balance 888.00 / 898.00 2135.58 / 2135.58 655 / 655 Lab / Micro Data Result Diagrams: 04/18/22 05:40 04/18/22 05:40 Labs: Laboratory Results - last 24 hr 04/18/22 17:13: POC Glucose 157 H 04/18/22 22:43: POC Glucose 109 H 04/19/22 06:30: Vancomycin Trough 18.0 H 04/19/22 06:41: POC Glucose 99 04/19/22 12:35: POC Glucose 178 H Micro: Microbiology 04/12/22 08:10 Blood Culture (Wb) - No Site/Description Given Blood Culture - Final No growth in 5 days. 04/13/22 23:58 Stool Enteric Bacteriology - Final 04/13/22 11:42 Mucosa - Nose Respiratory Panel (PCR) - Final 04/11/22 15:30 Stool C. difficile DNA Amplification - Final 04/06/22 14:45 Blood Culture (Wb) - Arm Right Blood Culture - Final No growth in 5 days. 04/06/22 13:41 Blood Culture (Wb) - Anticubital Left Blood Culture - Final No growth in 5 days. 04/06/22 20:35 Sputum, Tracheal Aspirate Gram Stain - Final 04/06/22 20:35 Sputum, Tracheal Aspirate Respiratory Culture - Final Meth. resistant Staph. aureus 04/06/22 13:50 Urine Catheter - Bravo Urine Culture - Final Escherichia coli 04/06/22 21:40 Urine Catheter - Bravo Legionella Antigen - Final 04/06/22 21:40 Urine Catheter - Bravo Streptococcus pneumoniae Antigen (M - Final 04/06/22 14:50 Nasal Secretion SARS-CoV-2 & FLU Antigen (Rapid) - Final Radiography Diagnostic Testing: Radiology Impression KUB X-Ray 04/19/22 05:40 IMPRESSION: Adequate position of enteric tube. Electronically Signed: Navjot Gutierres MD at 7:21 EST , Rhythm Strip Rhythm Strip: Sinus Rhythm Rate: 75 Physical Exam Narrative Patient responds to simple questions appropriately General Appearance: cooperative, well kempt and well developed Orientation / Consciousness:?Patient is alert and appropriate HEENT normocephalic, head/scalp atraumatic and moist oral mucous membranes Eyes PERRL, EOMs intact bilaterally and conjunctivae normal Neck supple, no JVD, thyroid normal and no carotid bruits General: trachea midline Resp normal respiratory effort and no retractions Resp Narrative: Sounds are diminished bilaterally, inspiratory rales are noted over the right lung field at the base Auscultation: rales; Negative for rhonchi or wheezes Cardio Cardio Narrative: Heart rate and rhythm is regular, normal sinus rhythm GI normal to inspection, nondistended, normoactive bowel sounds, soft to palpation, non-tender and non-distended Extremity no clubbing, cyanosis or edema Skin no rashes or lesions noted General Skin Exam: no breakdown Neuro oriented x3, CN's II-XII intact bilaterally, no focal motor deficits and no sensory deficits noted Sensorium / Orientation: Patient is alert and appropriate Speech: speech normal Psych Patient has a flat affect, she responds appropriately to verbal questioning Assessment & Plan Assessment/Plan (1) Atrial fibrillation with rapid ventricular response: PLAN: Plan 1. Acute on chronic combined respiratory failure-patient is now currently stable on 4 L by nasal cannula, chest x-ray on 04/16/2022 showed no interval change from her previous chest x-ray on 04/12/2022. #2 MRSA pneumonia-patient remains on antibiotics per infectious diseases #3 acute cystitis with E. coli-patient appears to have finished her antibiotic course #4 acute exacerbation of COPD-patient is currently receiving aerosol treatments #5 paroxysmal A. fib-converted to normal sinus rhythm at this time, patient remains on IV Cardizem, she will not be able to take her amiodarone and metopr olol until a Dobbhoff is inserted #6 type 2 diabetes-blood sugars will be monitored, sliding scale insulin will be used #7 acute kidney injury-kidney function has improved #8 metabolic encephalopathy-patient follows simple commands, she is n.p.o. currently #9 oropharyngeal dysphagia-patient now has an NG tube in, tube feedings were started, again her Cardizem was converted to Cardizem down her NG tube. Charges/Coding Visit Charges Inpatient E&M: 42551 Subs Hosp L2
[2022-04-19] MEDS: dilTIAZem 60 MG Tablet NG (18:20)
[2022-04-19 19:05] LABS: Bedside Glucose 136 mg/dL (74-106)
[2022-04-20] VITALS (21 sets, daily range): BP systolic 96–127; BP diastolic 47–80; PULSE 77–103; RESP 18–30; TEMP 36.5–36.9; O2SAT 92–100; BMI 28.0
[2022-04-20] MEDS: dilTIAZem 60 MG Tablet NG ×4 (00:03→18:22)
[2022-04-20 00:11] LABS: Bedside Glucose 121 mg/dL (74-106)
--- NOTE | 2022-04-20 00:37 | NURSING ---
I spoke with Dr. Reyes over the phone that they will do the pt's PEG tube placement 04/20/22. I spoke with the patients over the phone and received verbal consent for the surgery and verified with Johann Dudley RN. Consent form on the chart.
--- NOTE | 2022-04-20 05:55 | EKG12_ITS ---
Test Reason : AM EKG Blood Pressure : / mmHG Vent. Rate : 096 BPM Atrial Rate : 096 BPM P-R Int : 150 ms QRS Dur : 072 ms QT Int : 324 ms P-R-T Axes : 067 011 148 degrees QTc Int : 409 ms Sinus rhythm with Premature atrial complexes Nonspecific T wave abnormality Abnormal ECG Confirmed by YUMI NGUYEN, JERAMIE ([id number]), online editor MIKAL MCDOWELL ([id number]) on 04/23/2022 9:51:37 AM Referred By: SOCORRO Confirmed By:JERAMIE EASON MD
[2022-04-20 06:30] LABS: Bedside Glucose 107 mg/dL (74-106)
--- NOTE | 2022-04-20 07:34 | EX.PCM.CON.S ---
Assessment & Plan Assessment/Plan (1) Dysphagia: QUALIFIERS: Dysphagia type: unspecified Qualified Code(s): R13.10 - Dysphagia, unspecified PLAN: The patient has dysphagia and has been receiving tube feeds via NG. Her Xarelto has now been held for 3 days and I will plan for EGD with PEG tube placement today. I discussed this with the patient and the patient's POA. They are both agreeable I explained endoscopy in detail to the patient. I explained the risks including but not limited to stroke or heart attack with anesthesia, perforation of the GI tract, bleeding, infection. I explained that any of these could necessitate further emergency surgery. The patient understands and all questions were answered sufficiently. The patient wishes to proceed with procedure. Rio Reyes MD Pager: [facility] [address] [place] [address], [address] [place] [address] Office: HPI Consult Data Date of Consult: 04/20/22 HPI Narrative HPI Narrative: BOBBY FLORES, is a 66 F who is here for multiple issues. I was consulted to place a PEG tube for feeding. The patient has failed multiple swallow studies. [facility] Medical History Abdominal cramping Anemia Asthma Atrial fibrillation Bronchitis Chest pain Diabetes Former smoker GERD (gastroesophageal reflux disease) Hypertension Hyperthyroidism Irregular heart beat Lack of appetite Nausea On home oxygen therapy Pneumonia Rheumatoid arthritis Home Medications acetaminophen 500 mg tablet 1,000 mg PO Q6H PRN PAIN 01/30/19 [History Last Taken 04/06/22] gabapentin 100 mg capsule 200 mg PO BID NERVE PAIN 05/10/19 [History Last Taken 04/06/22] ipratropium 0.5 mg-albuterol 3 mg (2.5 mg base)/3 mL nebulization soln 3 ml inhalation Q6H.RT copd 05/10/19 [History Last Taken 09/10/20] ondansetron HCl 4 mg tablet (Zofran) 4 mg PO Q6H nausea #10 tabs 08/27/20 [Rx Last Taken 04/06/22] budesonide 0.5 mg/2 mL suspension for nebulization 0.5 mg inhalation BID sob 09/02/20 [History Last Taken 09/10/20] budesonide-formoterol HFA 160 mcg-4.5 mcg/actuation aerosol inhaler (Symbicort) 2 puff inhalation BID LUNGS 04/06/22 [History Last Taken 04/06/22] cholecalciferol (vitamin D3) 1,250 mcg (50,000 unit) capsule 50,000 unit PO QMONTH SUPPLEMENT 04/06/22 [History Last Taken Unknown] dextromethorphan-guaifenesin 30 mg-600 mg tablet extended [id number] hr (Mucinex DM) 1 tab PO Q12H CHEST CONGESTION 04/06/22 [History Last Taken 04/06/22] ferrous gluconate 324 mg (37.5 mg iron) tablet 324 mg PO BID SUPPLEMENT 04/06/22 [History Last Taken 03/31/22] gabapentin 400 mg capsule 400 mg PO TID NERVE PAIN 04/06/22 [History Last Taken 04/05/22] leflunomide 20 mg tablet 20 mg PO DAILY ARTHRITIS 04/06/22 [History Last Taken 04/06/22] metoprolol succinate 100 mg tablet,extended release 24 hr 100 mg PO DAILY HEART 04/06/22 [History Last Taken 04/06/22] omeprazole 40 mg capsule,delayed release 40 mg PO DAILY PRN REFLUX 04/06/22 [History Last Taken Unknown] rivaroxaban 20 mg tablet (Xarelto) 20 mg PO DAILY HEART 04/06/22 [History Last Taken 04/05/22] venlafaxine 37.5 mg capsule,extended release 24 hr 37.5 mg PO DAILY MOOD 04/06/22 [History Last Taken 04/05/22] verapamil 80 mg tablet 40 mg PO Q8 HEART 04/06/22 [History Last Taken 04/06/22] Allergy/AdvReac Type Severity Reaction Status Date / Time No Known Allergies Allergy Verified 09/02/20 16:24 Surgical History H/O: hysterectomy Social History household members: spouse Smoking Status: Former smoker substance use type: does not use ROS Review of Systems ROS Unobtainable: due to mental status Physical Exam Const no apparent distress HEENT normocephalic Eyes PERRL Resp Auscultation: rhonchi Cardio Rate: regular rate GI soft to palpation and non-tender Lab / Micro Data Result Diagrams: 04/18/22 05:40 04/18/22 05:40 Labs: Laboratory Results - last 24 hr 04/19/22 06:30: Vancomycin Trough 18.0 H 04/19/22 12:35: POC Glucose 178 H 04/19/22 18:07: POC Glucose 136 H 04/19/22 23:48: POC Glucose 121 H 04/20/22 06:06: POC Glucose 107 H Rhythm Strip Rhythm Strip: Sinus Rhythm Rate: 75
[2022-04-20 07:43] LABS: Absolute Lymphocyte Count 0.43 X10^3/uL (0.83-4.51); Absolute Neutrophil Count 10.1 X10^3/uL (2.0-7.7); Basophil# 0.01 X10^3/uL; Basophil% 0.1 % (0-1); Eosinophil# 0.13 X10^3/uL; Eosinophils% 1.2 % (0-5); Lymphocyte # 0.43 X10^3/ul (0.83-4.51); Lymphocyte % 3.9 % (19-41); Mean Corp Hgb Conc 29.2 g/dL (32-36); Mean Corpuscular Hgb 31.1 pg (27.0-32.0); Mean Corpuscular Volume 106.7 fL (81-99); Monocyte# 0.24 X10^3/uL; Monocyte% 2.2 % (0-10); NRBC Flagged by Analyzer 0 % (0-5); Neutrophil # 10.13 X10^3/uL (2.7-7.7); Neutrophil % 91.9 % (47-70); POSITIVE DIFFERENTIAL YES; Platelet Count 129 K/mm3 (150-450); RBC Distribution Width CV 18.3 % (11.6-14.6); RBC Distribution Width SD 54.7 fl (35.1-43.9); Red Blood Count 2.25 M/mm3 (4.2-5.4)
[2022-04-20 07:45] LABS: Differential Indicated SCAN CRITERIA MET
[2022-04-20 08:15] LABS: Anion Gap 4 (5-15); BUN 22 mg/dL (7-18); BUN/Creat Ratio 35.7 RATIO (10-20); Calcium,Total 8.2 mg/dL (8.5-10.1); Chloride 107 mmol/L (98-107); Creatinine, Serum 0.62 mg/dL (0.55-1.02); EST Glomerular Filtration Rate 103 mL/min (>60); Est Glom Filt Rate - Afr Amer 125 mL/min (>60); Estimated Creatinine Clearance 89.14 ml/min; Glucose 111 mg/dL (74-106); Potassium 3.4 mmol/L (3.5-5.1); Sodium Level 144 mmol/L (136-145)
--- NOTE | 2022-04-20 09:27 | NURSING ---
Report given to Chato in PACU.
--- NOTE | 2022-04-20 09:30 | OP.EGD_ITS ---
Patient Name: Viviana Santana Procedure Date: 04/20/2022 8:36 AM Date of : 1955 Age: 66 Procedure: Upper GI endoscopy Indications: Dysphagia Providers: Rio Reyes MD Medicines: Monitored Anesthesia Care Patient Profile: This is a 66 year old female. Refer to note in patient chart for documentation of history and physical. Complications: No immediate complications. Procedure: Pre-Anesthesia Assessment: - Prior to the procedure, a History and Physical was performed, and patient medications and allergies were reviewed. The patient's tolerance of previous anesthesia was also reviewed. The risks and benefits of the procedure and the sedation options and risks were discussed with the patient. All questions were answered, and informed consent was obtained. Prior Anticoagulants: The patient has taken Xarelto (rivaroxaban), last dose was 3 days prior to procedure. After reviewing the risks and benefits, the patient was deemed in satisfactory condition to undergo the procedure. After obtaining informed consent, the endoscope was passed under direct vision. Throughout the procedure, the patient's blood pressure, pulse, and oxygen saturations were monitored continuously. The Endoscope was introduced through the mouth, and advanced to the second part of duodenum. The upper GI endoscopy was accomplished without difficulty. The patient tolerated the procedure well. Scope In: 9:18:46 AM Scope Out: 9:23:58 AM Total Procedure Duration Time 0 hours 5 minutes 12 seconds Findings: Few non-bleeding superficial gastric ulcers with pigmented material were found in the stomach. The patient was placed in the supine position for PEG placement. The stomach was insufflated to appose gastric and abdominal quinn. A site was located in the body of the stomach with excellent transillumination and manual external pressure for placement. The abdominal wall was marked and prepped in a sterile manner. The area was anesthetized with 4 mL of 0.5% lidocaine. The trocar needle was introduced through the abdominal wall and into the stomach under direct endoscopic view. A snare was introduced through the endoscope and opened in the gastric lumen. The guide wire was passed through the trocar and into the open snare. The snare was closed around the guide wire. The endoscope and snare were removed, pulling the wire out through the mouth. A skin incision was made at the site of needle insertion. The externally removable 20 Fr EndoVive Safety gastrostomy tube was lubricated. The G-tube was tied to the guide wire and pulled through the mouth and into the stomach. The trocar needle was removed, and the gastrostomy tube was pulled out from the stomach through the skin. The external bumper was attached to the gastrostomy tube, and the tube was cut to remove the guide wire. The final position of the gastrostomy tube was confirmed by relook endoscopy, and skin marking noted to be 4 cm at the external bumper. The final tension and compression of the abdominal wall by the PEG tube and external bumper were checked and revealed that the bumper was loose and lightly touching the skin and that the PEG balloon was loose and lightly touching the stomach. The feeding tube was capped, and the tube site cleaned and dressed. Impression: - Non-bleeding gastric ulcers with pigmented material. - An externally removable PEG placement was successfully completed. - No specimens collected. Recommendation: - [facility]. - NPO. - Continue present medications. Procedure Code(s): --- Professional --- 35318, Esophagogastroduodenoscopy, flexible, transoral; with directed placement of percutaneous gastrostomy tube Diagnosis Code(s): --- Professional --- K25.9, Gastric ulcer, unspecified as acute or chronic, without hemorrhage or perforation R13.10, Dysphagia, unspecified CPT copyright 2017 [employer]. All rights reserved. The codes documented in this report are preliminary and upon expense analyst review may be revised to meet current compliance requirements. Rio Reyes MD 04/20/2022 9:30:33 AM This report has been signed electronically. Number of Addenda: 0 Note Initiated On: 04/20/2022 8:36 AM
--- NOTE | 2022-04-20 09:31 | OP.CCLET_ITS ---
04/20/2022 Alexa Becerra Re : Upper GI endoscopy procedure for Viviana Santana Dear Hernan This procedure was performed on Wednesday, April 20, 2022. My impressions and recommendations are as follows: Impressions : - Non-bleeding gastric ulcers with pigmented material. - An externally removable PEG placement was successfully completed. - No specimens collected. Recommendations : - [facility]. - NPO. - Continue present medications. My findings are described in the full procedure note, which is enclosed. If I can be of further assistance, please feel free to contact me at Doctor phone number(s): , Work: . Sincerely, Rio Reyes MD 04/20/2022 9:30:33 AM This report has been signed electronically.
--- NOTE | 2022-04-20 09:31 | PCM.PN.BLA ---
Progress Note I performed an EGD with placement of PEG tube this morning. Patient had copious secretions in her oropharynx and trachea as well. PEG tube was placed without issue. Patient did have ulceration of the stomach with some mild bleeding. I recommend PPI. The patient's PEG tube may be used for medications and flushes starting in 4 hours. She may resume tube feeds and Xarelto tomorrow. Rio Reyes MD Pager: [facility] [address] [place] [address] [address] [place] [address] Office:
[2022-04-20 10:41] LABS: Differential Comment SCANNED
[2022-04-20 13:06] LABS: Bedside Glucose 107 mg/dL (74-106)
[2022-04-20] MEDS: Metoprolol Tartrate 100 MG Tablet 150 MG GT (14:28)
[2022-04-20] MEDS: Amiodarone 200 MG Tablet NG (14:29)
[2022-04-20] MEDS: Menthol/Lanolin/Calamine/Znox 113 GM Tube 1 APPLIC TOPICAL ×2 (14:29→17:42)
[2022-04-20] MEDS: 0.9% Saline Lock 10 ML Syringe IV ×2 (14:32→17:42)
[2022-04-20] MEDS: Albuterol 2.5 MG/3 ML VIAL.NEB. INHALATION (14:50)
--- NOTE | 2022-04-20 18:30 | PN.HOSP_ITS ---
Subjective Subjective Patient was seen and examined today, she had a PEG tube inserted today, I talked with her who was in the room at the time my examination. Objective Data Objective Data Vital Signs: Vital Signs Temp Pulse Resp BP Pulse Ox O2 Del Method O2 Flow Rate 98.4 F 87 20 H 100/53 L 97 Nasal Cannula 3 04/20/22 18:19 04/20/22 18:19 04/20/22 18:19 04/20/22 18:19 04/20/22 18:19 04/20/22 18:19 04/20/22 18:19 FiO2 40 04/15/22 20:48 Oxygen Flow Rate (L/min) 3 Oxygen Delivery Method Nasal Cannula Weight: 81.3 kg Body Mass Index (BMI) 28.0 Intake & Output: Intake and Output for Last 24 Hours 04/18/22 04/19/22 04/20/22 23:59 23:59 23:59 Intake Total 2335.58 / 2335.58 970 / 970 905 / 905 Output Total 200 / 200 Balance 2135.58 / 2135.58 970 / 970 905 / 905 Lab / Micro Data Result Diagrams: 04/20/22 07:09 04/20/22 07:09 Labs: Laboratory Results - last 24 hr 04/19/22 18:07: POC Glucose 136 H 04/19/22 23:48: POC Glucose 121 H 04/20/22 06:06: POC Glucose 107 H 04/20/22 07:09: WBC 11.0, RBC 2.25 L, Hgb 7.0 L, Hct 24.0 L, MCV 106.7 H, MCH 31.1, MCHC 29.2 L, RDW Std Deviation 54.7 H, RDW Coeff of Lainey 18.3 H, Plt Count 129 L, MPV 12.0, Immature Gran % (Auto) 0.700, Neut % (Auto) 91.9 H, Lymph % (Auto) 3.9 L, [place] % (Auto) 2.2, Eos % (Auto) 1.2, Baso % (Auto) 0.1, Absolute Neuts (auto) 10.1 H, Absolute Lymphs (auto) 0.43 L, Nucleated RBC % 0, Diff erential Comment SCANNED 04/20/22 07:09: Sodium 144, Potassium 3.4 L, Chloride 107, Carbon Dioxide 33.0 H , Anion Gap 4 L, BUN 22 H, Creatinine 0.62, Estim Creat Clear Calc 89.14, Est GF R (MDRD) Af Amer 125, Est GFR (MDRD) Non-Af 103, BUN/Creatinine Ratio 35.7 H, Glucose 111 H, Calcium 8.2 L 04/20/22 11:55: Blood Type O NEGATIVE, Antibody Screen NEGATIVE, Crossmatch See Detail 04/20/22 12:48: POC Glucose 107 H Micro: Microbiology 04/12/22 08:10 Blood Culture (Wb) - No Site/Description Given Blood Culture - Final No growth in 5 days. 04/13/22 23:58 Stool Enteric Bacteriology - Final 04/13/22 11:42 Mucosa - Nose Respiratory Panel (PCR) - Final 04/11/22 15:30 Stool C. difficile DNA Amplification - Final 04/06/22 14:45 Blood Culture (Wb) - Arm Right Blood Culture - Final No growth in 5 days. 04/06/22 13:41 Blood Culture (Wb) - Anticubital Left Blood Culture - Final No growth in 5 days. 04/06/22 20:35 Sputum, Tracheal Aspirate Gram Stain - Final 04/06/22 20:35 Sputum, Tracheal Aspirate Respiratory Culture - Final Meth. resistant Staph. aureus 04/06/22 13:50 Urine Catheter - Bravo Urine Culture - Final Escherichia coli 04/06/22 21:40 Urine Catheter - Bravo Legionella Antigen - Final 04/06/22 21:40 Urine Catheter - Bravo Streptococcus pneumoniae Antigen (M - Final 04/06/22 14:50 Nasal Secretion SARS-CoV-2 & FLU Antigen (Rapid) - Final Rhythm Strip Rhythm Strip: Sinus Rhythm Rate: 75 Physical Exam Narrative Patient responds to simple questions appropriately General Appearance: cooperative, well kempt and well developed Orientation / Consciousness:?Patient is alert and appropriate HEENT normocephalic, head/scalp atraumatic and moist oral mucous membranes Eyes PERRL, EOMs intact bilaterally and conjunctivae normal Neck supple, no JVD, thyroid normal and no carotid bruits General: trachea midline Resp normal respiratory effort and no retractions Resp Narrative: Sounds are diminished bilaterally, inspiratory rales are noted over the right lung field at the base Auscultation: There are inspiratory rales at the right lung base, there are scattered rhonchi anteriorly Cardio Cardio Narrative: Heart rate and rhythm is regular, normal sinus rhythm GI normal to inspection, nondistended, normoactive bowel sounds, soft to palpation, non-tender and non-distended Extremity no clubbing, cyanosis or edema Skin no rashes or lesions noted General Skin Exam: no breakdown Neuro oriented x3, CN's II-XII intact bilaterally, no focal motor deficits and no sensory deficits noted Sensorium / Orientation: Patient is alert and appropriate Speech: speech normal Psych Patient has a flat affect, she responds appropriately to verbal questioning Assessment & Plan Assessment/Plan (1) Atrial fibrillation with rapid ventricular response: PLAN: Plan 1. Acute on chronic combined respiratory failure-patient is now currently stable on 3 L by nasal cannula, chest x-ray on 04/16/2022 showed no interval change from her previous chest x-ray on 04/12/2022. #2 MRSA pneumonia-patient remains on antibiotics per infectious diseases #3 acute cystitis with E. coli-patient appears to have finished her antibiotic course #4 acute exacerbation of COPD-patient is currently receiving aerosol treatments #5 paroxysmal A. fib-converted to normal sinus rhythm at this time, patient remains on IV Cardizem, she will not be able to take her amiodarone and metoprolol until a Dobbhoff is inserted #6 type 2 diabetes-blood sugars will be monitored, sliding scale insulin will be used #7 acute kidney injury-kidney function has improved #8 metabolic encephalopathy-patient follows simple commands, she is n.p.o. currently #9 oropharyngeal dysphagia-patient now has an NG tube in, tube feedings were started, patient has PEG tube now which was put in today. #10 acute anemia-patient's hemoglobin today was 7 I decided to transfuse the patient 1 unit of blood, repeat H&H will be obtained in the morning Total clinical time spent by myself addressing the patient's medical issues, reviewing all the data, and collaborating with patient's care team: 25 minutes Charges/Coding Visit Charges Inpatient E&M: 78128 Subs Hosp L1
[2022-04-20 18:49] LABS: Vancomycin, Trough Level 24.9 ug/mL (5.0-15.0)
[2022-04-20 18:50] LABS: Bedside Glucose 93 mg/dL (74-106)
--- NOTE | 2022-04-20 18:53 | NURSING ---
Pharmacy was called about vanc trough results of 24.9. Pharmacist stated to hold dose.
--- NOTE | 2022-04-20 19:00 | PCM.RX.CS ---
Consult Pharmacy has been consulted to manage selected antiobiotic: Vancomycin Prior Doses of Antibiotics Received/Current Regimen: Medications Vancomycin HCl 750 mg/ Sodium (Chloride) 265 mls @ 250 mls/hr IV Q12H ELENA Last Admin: 04/20/22 18:54 Dose: Not Given Labs: Sodium 144 mmol/L (136-145) 04/20/22 07:09 Potassium 3.4 mmol/L (3.5-5.1) L 04/20/22 07:09 Chloride 107 mmol/L (98-107) 04/20/22 07:09 Carbon Dioxide 33.0 mmol/L (21.0-32.0) H 04/20/22 07:09 Anion Gap 4 (5-15) L 04/20/22 07:09 BUN 22 mg/dL (7-18) H 04/20/22 07:09 Creatinine 0.62 mg/dL (0.55-1.02) 04/20/22 07:09 Est GFR (MDRD) Af Amer 125 mL/min (>60) 04/20/22 07:09 Est GFR (MDRD) Non-Af 103 mL/min (>60) 04/20/22 07:09 BUN/Creatinine Ratio 35.7 RATIO (10-20) H 04/20/22 07:09 Glucose 111 mg/dL (74-106) H 04/20/22 07:09 Vancomycin Trough 24.9 ug/mL (5.0-15.0) H 04/20/22 18:15 Random Vancomycin 17.8 ug/mL (0.0-15.0) H 04/17/22 16:50 Microbiology: Microbiology 04/12/22 08:10 Blood Culture (Wb) - No Site/Description Given Blood Culture - Final No growth in 5 days. 04/13/22 23:58 Stool Enteric Bacteriology - Final 04/13/22 11:42 Mucosa - Nose Respiratory Panel (PCR) - Final 04/11/22 15:30 Stool C. difficile DNA Amplification - Final 04/06/22 14:45 Blood Culture (Wb) - Arm Right Blood Culture - Final No growth in 5 days. 04/06/22 13:41 Blood Culture (Wb) - Anticubital Left Blood Culture - Final No growth in 5 days. 04/06/22 20:35 Sputum, Tracheal Aspirate Gram Stain - Final 04/06/22 20:35 Sputum, Tracheal Aspirate Respiratory Culture - Final Meth. resistant Staph. aureus 04/06/22 13:50 Urine Catheter - Bravo Urine Culture - Final Escherichia coli 04/06/22 21:40 Urine Catheter - Bravo Legionella Antigen - Final 04/06/22 21:40 Urine Catheter - Bravo Streptococcus pneumoniae Antigen (M - Final 04/06/22 14:50 Nasal Secretion SARS-CoV-2 & FLU Antigen (Rapid) - Final Weight used for dosin kg Goal Trough: 15-20 mcg/mL Pharmacy Plan for Drug Dosing: Trough above goal. Recheck random in tomorrow morning with labs and re-dose. Pharmacy Service will continue to monitor and adjust dosing as required. Follow-Up Labs: Trough Vancomycin - 04/21 @ 0600
[2022-04-20] MEDS: Ipratropium/Albuterol Sulfate 3 ML AMPUL.NEB INHALATION (19:40)
[2022-04-20] MEDS: Budesonide Respules 0.5 MG/2 ML AMPUL.NEB. INHALATION (19:40)
--- NOTE | 2022-04-20 23:45 | RAD_ITS ---
We are attempting to reach an attending provider to discuss findings. An addendum with communication details will be sent when the communication is complete. STUDY: X-RAY CHEST REASON FOR EXAM: Female, 66 years old. ET AND OG TUBE PLACMENTS TECHNIQUE: Single AP portable view of the chest. COMPARISON: 04/16/2022 FINDINGS: PICC line is seen on the right side its tip is at the lower part of the superior vena cava. Endotracheal tube is seen its tip is 4 cm superior to the angela. An NG tube is seen its tip is below the diaphragm is in good position. There are interstitial fibrotic changes of the lungs. There is small right pneumothorax at the lung base estimated at 5%. Normal size heart. Normal mediastinum and jessica. Normal visualized pulmonary arteries. Normal visualized aortic arch and descending thoracic aorta. Normal visualized thoracic spine. Normal visualized ribs, clavicles, and shoulders. There is possible free air in the abdomen. RAD/Chest 1 View (Portable) IMPRESSION: There is small right pneumothorax at the lung base estimated at 5%. There is possible free air in the abdomen. Electronically Signed: Júnior Morales MD at 1:08 EST ,
[2022-04-21 00:11] VITALS: PULSE 114; RESP 12; RESP 30
[2022-04-21 00:27] VITALS: RESP 14
[2022-04-21 00:39] LABS: Hematocrit 22.5 % (37-47); Hemoglobin 6.3 g/dL (12.0-15.0); Mean Corpuscular Hgb 30.7 pg (27.0-32.0); Mean Corpuscular Volume 109.8 fL (81-99); Mean Platelet Vol. 11.5 fl (6.2-12.0); POSITIVE COUNT YES; Platelet Count 77 K/mm3 (150-450); RBC Distribution Width CV 19.5 % (11.6-14.6); RBC Distribution Width SD 64.5 fl (35.1-43.9); Red Blood Count 2.05 M/mm3 (4.2-5.4); White Blood Count 6.5 K/mm3 (4.4-11.0)
[2022-04-21 00:40] LABS: Scan Indicated on CBC? Y/N YES- FLAGS NOTED
[2022-04-21 00:41] LABS: Bedside Glucose 78 mg/dL (74-106)
[2022-04-21 00:55] LABS: Phosphorus 4.6 mg/dL (2.5-4.9)
[2022-04-21 00:56] LABS: Anion Gap 13 (5-15); BUN 25 mg/dL (7-18); BUN/Creat Ratio 25.4 RATIO (10-20); Calcium,Total 5.6 mg/dL (8.5-10.1); Chloride 122 mmol/L (98-107); Creatinine, Serum 0.98 mg/dL (0.55-1.02); EST Glomerular Filtration Rate 60 mL/min (>60); Est Glom Filt Rate - Afr Amer 73 mL/min (>60); Glucose 78 mg/dL (74-106); Magnesium 1.8 mg/dL (1.6-2.6); Potassium 3.7 mmol/L (3.5-5.1); Sodium Level 151 mmol/L (136-145)
[2022-04-21 00:58] LABS: Differential Comment SCANNED
--- NOTE | 2022-04-21 01:05 | NURSING ---
04/20 2350: Pt arrived s/p POWDER BLENDER/Code Blue from [id number] to ICU 6 being bagged via ambu by RT; pt had georges arrested, was intubated by Dr. Eagle w/7.5 ETT secured at 20-21cm and then transported to ICU. Pt coded 3x more after arrival, spouse Enmanuel Santana, requested staff to stop CPR. Monitor placed on comfort care mode at 0100. Resuscitative fluids stopped and pt disconnected from [facility] vent; family provided chairs and encouraged to approach bedside.
--- NOTE | 2022-04-21 01:21 | PN.HOSP_ITS ---
Subjective Subjective initially called to FACILITIES ASSISTANT that was code blue upon arrival to floor within 1 minute. Pt was pulseless and apneic- CPR initiated and immediately intubated patient using glydoscope and 7.5 et tube. End tidal co2 color change confirmed placement and breath sounds bilaterally. ET tube advance 2 cm after CXR. following cpr and 1 dose of epi we had Rosc and transferred pt to ICU. She was placed on vent at 500cc /12/ spo2 100% peep 8 later 10. the patient coded 2 more times in the ICU and ROSC was achieved (refer to code documentation) . Her and family had arrived at bedside She coded one more time and her elected to stop resuscitation. All efforts were discontinued and time of was 01:03. Objective Data Objective Data Vital Signs: Vital Signs Temp Pulse Resp BP Pulse Ox O2 Del Method O2 Flow Rate 98.4 F 77 24 H 100/53 L 92 Nasal Cannula 3 04/20/22 18:19 04/20/22 19:41 04/20/22 19:41 04/20/22 18:19 04/20/22 19:42 04/20/22 19:45 04/20/22 19:45 FiO2 40 04/15/22 20:48 Oxygen Flow Rate (L/min) 3 Oxygen Delivery Method Nasal Cannula Weight: 179 lb 3.773 oz Body Mass Index (BMI) 28.0 Intake & Output: Intake and Output for Last 24 Hours 04/19/22 04/20/22 04/21/22 23:59 23:59 23:59 Intake Total 970 / 970 905 / 905 Balance 970 / 970 905 / 905 Lab / Micro Data Result Diagrams: 04/21/22 00:30 04/21/22 00:30 Labs: Laboratory Results - last 24 hr 04/20/22 06:06: POC Glucose 107 H 04/20/22 07:09: WBC 11.0, RBC 2.25 L, Hgb 7.0 L, Hct 24.0 L, MCV 106.7 H, MCH 31.1, MCHC 29.2 L, RDW Std Deviation 54.7 H, RDW Coeff of Lainey 18.3 H, Plt Count 129 L, MPV 12.0, Immature Gran % (Auto) 0.700, Neut % (Auto) 91.9 H, Lymph % (Auto) 3.9 L, [place] % (Auto) 2.2, Eos % (Auto) 1.2, Baso % (Auto) 0.1, Absolute Neuts (auto) 10.1 H, Absolute Lymphs (auto) 0.43 L, Nucleated RBC % 0, Differential Comment SCANNED 04/20/22 07:09: Sodium 144, Potassium 3.4 L, Chloride 107, Carbon Dioxide 33.0 H , Anion Gap 4 L, BUN 22 H, Creatinine 0.62, Estim Creat Clear Calc 89.14, Est GFR (MDRD) Af Amer 125, Est GFR (MDRD) Non-Af 103, BUN/Creatinine Ratio 35.7 H, Glucose 111 H, Calcium 8.2 L 04/20/22 11:55: Blood Type O NEGATIVE, Antibody Screen NEGATIVE, Crossmatch See Detail 04/20/22 12:48: POC Glucose 107 H 04/20/22 18:15: Vancomycin Trough 24.9 H 04/20/22 18:16: POC Glucose 93 04/21/22 00:24: POC Glucose 78 04/21/22 00:30: Sodium 151 H, Potassium 3.7, Chloride 122 H, Carbon Dioxide 16.0 L, Anion Gap 13, BUN 25 H, Creatinine 0.98, Estim Creat Clear Calc 56.40, Est GFR (MDRD) Af Amer 73, Est GFR (MDRD) Non-Af 60, BUN/Creatinine Ratio 25.4 H, Glucose 78, Calcium 5.6 L*, Magnesium 1.8 04/21/22 00:30: WBC 6.5, RBC 2.05 L, Hgb 6.3 L, Hct 22.5 L, MCV 109.8 H, MCH 30.7, MCHC 28.0 L, RDW Std Deviation 64.5 H, RDW Coeff of Lainey 19.5 H, Plt Count 77 L, MPV 11.5, Differential Comment SCANNED 04/21/22 00:30: Phosphorus 4.6 Micro: Microbiology 04/12/22 08:10 Blood Culture (Wb) - No Site/Description Given Blood Culture - Final No growth in 5 days. 04/13/22 23:58 Stool Enteric Bacteriology - Final 04/13/22 11:42 Mucosa - Nose Respiratory Panel (PCR) - Final 04/11/22 15:30 Stool C. difficile DNA Amplification - Final 04/06/22 14:45 Blood Culture (Wb) - Arm Right Blood Culture - Final No growth in 5 days. 04/06/22 13:41 Blood Culture (Wb) - Anticubital Left Blood Culture - Final No growth in 5 days. 04/06/22 20:35 Sputum, Tracheal Aspirate Gram Stain - Final 04/06/22 20:35 Sputum, Tracheal Aspirate Respiratory Culture - Final Meth. resistant Staph. aureus 04/06/22 13:50 Urine Catheter - Bravo Urine Culture - Final Escherichia coli 04/06/22 21:40 Urine Catheter - Bravo Legionella Antigen - Final 04/06/22 21:40 Urine Catheter - Bravo Streptococcus pneumoniae Antigen (M - Final 04/06/22 14:50 Nasal Secretion SARS-CoV-2 & FLU Antigen (Rapid) - Final Radiography Diagnostic Testing: Radiology Impression Chest X-Ray 04/20/22 23:45 IMPRESSION: There is small right pneumothorax at the lung base estimated at 5%. There is possible free air in the abdomen. Electronically Signed: Júnior Morales MD at 1:08 EST , Rhythm Strip Rhythm Strip: Sinus Rhythm Rate: 75
--- NOTE | 2022-04-21 02:38 | NURSING ---
0103: pt pronounced by , asystole rhythm strip placed in pt's chart.
--- NOTE | 2022-04-21 03:41 | NURSING ---
Around 2329, Lorene Garza RN and Ronni Figueredo BATCH WEIGHER went in to change the patient, upon rolling the patient began bradying down, still appeared to be breathing. DISPOSAL OPERATOR called. When this RN came into the room, no pulse was found and Code Blue was called and CPR initiated at 2334. Pt intubated at the beside by Dr. Eagle, and ROSC achieved. Pt transferred to ICU bed 6, report given to Augusta Lyle RN.
== END 2022-04-21 03:30 | DRG 208 ==
LOC: ED 14:39 → ICU 18:04 → PCU 04-18 20:06 → ICU 04-20 23:50
PROVIDERS: Family Medicine; Hospitalist; Internal Medicine; Internal Medicine Critical Care Medicine; Physician Assistant; Surgery; Emergency Provider Emergency Medicine; PCP Physician Assistant; Visit Provider Internal Medicine
PROC: 0DJ08ZZ Inspection of Upper Intestinal Tract, Via Natural or Artificial Opening Endoscopic (ICD-10-PCS; CPT 43235; principal; 2022-04-20 07:45)
DX: J15.212 Pneumonia due to Methicillin resistant Staphylococcus aureus (principal); J96.22 Acute and chronic respiratory failure with hypercapnia; G93.41 Metabolic encephalopathy; J47.0 Bronchiectasis with acute lower respiratory infection; I48.20 Chronic atrial fibrillation, unspecified; E87.29 Other acidosis; N17.9 Acute kidney failure, unspecified; N30.00 Acute cystitis without hematuria; E88.09 Other disorders of plasma-protein metabolism, not elsewhere classified; H70.93 Unspecified mastoiditis, bilateral; E11.9 Type 2 diabetes mellitus without complications; I48.91 Unspecified atrial fibrillation; Z93.1 Gastrostomy status; I10 Essential (primary) hypertension; D64.9 Anemia, unspecified; E87.8 Other disorders of electrolyte and fluid balance, not elsewhere classified; R19.7 Diarrhea, unspecified; H66.91 Otitis media, unspecified, right ear; K25.9 Gastric ulcer, unspecified as acute or chronic, without hemorrhage or perforation; Z79.51 Long term (current) use of inhaled steroids; Z87.891 Personal history of nicotine dependence; Z79.01 Long term (current) use of anticoagulants; R53.81 Other malaise; E07.81 Sick-euthyroid syndrome; B96.20 Unspecified Escherichia coli [E. coli] as the cause of diseases classified elsewhere; B95.62 Methicillin resistant Staphylococcus aureus infection as the cause of diseases classified elsewhere; R13.12 Dysphagia, oropharyngeal phase
CPT/HCPCS: 31500; 31720; 36415; 36569; 36600; 70450; 71045; 71275; 74018; 74177; 74230; 76770; 80048; 80053; 80076; 80202; 81001; 82140; 82550; 82607; 82746; 82803; 82962; 83605; 83735; 84100; 84439; 84443; 84478; 84481; 85025; 85027; 85045; 85610; 85730; 86850; 86900; 86901; 86920; 86922; 87040; 87070; 87077; 87086; 87088; 87186; 87205; 87428; 87449; 87493; 87506; 87633; 92507; 92526; 92610; 92611; 92950; 93005; 93306; 94002; 94003; 94640; 94660; 94762; 97110; 97162; 97166; 97530; 97535; 97802; 97803; 99251; 99285; J7030; J7040; J7050; P9016; Q9957; Q9967; A4216; C8929; G0463; J0610; J1940; J2405; J3010